=== PATIENT | male | born 1960 | race Caucasian/White ===

== ENCOUNTER 2018-06-08 09:47 | Emergency (ER) | payer OTHER, SELFPAY ==
[2018-06-08 09:47] VITALS: BP 124/64; PULSE 101; RESP 15; TEMP 36.4; O2SAT 99; BMI 15.9
--- NOTE | 2018-06-08 10:12 | CT_ITS ---
STUDY: CTA OF THE ABDOMINAL AORTA REASON FOR EXAM: Male, 58 years old. CELIAC ARTERY STENOSIS, N/V, PAIN, PREV STENTING OF CELIAC ARTERY X 2, RAHEL, HERNIA REPAIR, CBD STONE REMOVED RADIATION DOSAGE (If Supplied By Facility): CTDIvol = ( 20.60 ) mGy, DLP = ( 201.96 ) mGycm TECHNIQUE: Axial CT angiography multi-detector data acquisition was obtained from the lung bases to the the mid pelvis following intravenous administration of 100 ml of Isovue 370 contrast. Axial images and MIP images were reconstructed from the axial data set. Post-processing of the angiographic images was performed, with multiplanar reformation and 3D reconstruction. Individualized dose optimization techniques were used for this CT. TECHNICAL QUALITY: Good COMPARISON: June 26, 2017 Descriptors of Narrowing: None (0%) Mild (< 50%) Moderate (50-70%) Severe (70-90%) Subtotal/Total Occlusion (90-100%) Non-Evaluable (technically non-diagnostic FINDINGS: Abdominal aorta: Mild atherosclerotic plaque most evident of the distal aorta noted similar in appearance to that seen previously. No evidence of aneurysm, significant stenosis or occlusion. Celiac and superior mesenteric arteries: It now appears that the celiac stent is wider and the lumen patent. The distal celiac artery appears patent. There is also and SMA stent. This too appears wider and the lumen patent distally. Inferior mesenteric artery: No demonstrated narrowing. Right renal artery(arteries): No demonstrated narrowing. Left renal artery(arteries): No demonstrated narrowing. Right common iliac artery: There is mild diffuse narrowing. Right external iliac artery: No demonstrated narrowing. Right internal iliac artery: There is mild diffuse narrowing. Left common iliac artery: There is mild diffuse narrowing. Left external iliac artery: No demonstrated narrowing. Left internal iliac artery: There is mild diffuse narrowing. RIGHT LOWER EXTREMITY Right common femoral artery: No demonstrated narrowing. LEFT LOWER EXTREMITY Left common femoral artery: No demonstrated narrowing. The lung bases are clear. No focal lung infiltrate. Base of the heart is unremarkable. The liver, spleen and pancreas have an unremarkable appearance. The gallbladder is been removed. No pathologic biliary ductal dilatation. No adrenal mass. The kidneys enhance bilaterally and symmetrically. No adenopathy. The visualized bowel is unremarkable. Osseous structures are unremarkable. CT/CTA Abdomen W/WO Contrast IMPRESSION: Improved appearance when compared to previous exam, the celiac and SMA stents now appear widely patent. Electronically Signed: Jaye Giraldo MD at 12:22 EST , Service support ,
[2018-06-08] MEDS: 0.9% Normal Saline 1,000 ML 1000 ML IV (10:23)
[2018-06-08] MEDS: Morphine 4 MG/ML Syringe IV ×2 (10:23→13:02)
[2018-06-08] MEDS: Ondansetron 4 MG/2 ML Vial IV (10:23)
[2018-06-08 10:30] LABS: Absolute Lymphocyte Count 1.26 X10^3/ul (0.83-4.51); Absolute Neutrophil Count 8.9 X10^3/uL (2.0-7.7); Basophil# 0.02 X10^3/uL; Basophil% 0.2 % (0-1); Eosinophil# 0.02 X10^3/uL; Eosinophils% 0.2 % (0-5); Hematocrit 45.5 % (40-54); Hemoglobin 16.4 g/dl (13.0-16.5); Lymphocyte # 1.26 X10^3/ul (4.0); Lymphocyte % 11.3 % (19-41); Mean Corpuscular Hgb 31.1 pg (27.0-32.0); Mean Corpuscular Volume 86.2 fL (80-94); Mean Platelet Vol. 12.3 fl (6.2-12.0); Monocyte# 0.93 X10^3/uL; Monocyte% 8.3 % (0-10); Neutrophil # 8.94 X10^3/uL (2.7-7.7); Neutrophil % 79.9 % (47-70); Platelet Count 242 K/mm3 (150-450); RBC Distribution Width CV 13.1 % (11.6-14.6); RBC Distribution Width SD 40.9 fl (35.1-43.9); Red Blood Count 5.28 M/mm3 (4.6-6.2); White Blood Count 11.2 K/mm3 (4.4-11.0)
[2018-06-08 10:32] LABS: POSITIVE COUNT NO; POSITIVE DIFFERENTIAL NO; POSITIVE MORPHOLOGY NO
[2018-06-08 10:47] LABS: ALB/GLOB Ratio 1.2 RATIO (0.9-2.4); AST(SGOT) 24 U/L (15-37); Alanine Aminotransfer ALT/SGPT 23 U/L (16-61); Albumin, Serum 4.3 g/dL (3.2-5.0); Alkaline Phosphatase 116 U/L (45-117); Anion Gap 10 (5-15); BUN 22 mg/dL (7-18); BUN/Creat Ratio 17.9 RATIO (10-20); Calcium,Total 9.4 mg/dL (8.5-10.1); Chloride 104 mmol/L (98-107); Creatinine, Serum 1.23 mg/dL (0.70-1.30); EST Glomerular Filtration Rate 64 mL/min (>60); Est Glom Filt Rate - Afr Amer 78 mL/min (>60); Estimated Creatinine Clearance 47.24 ml/min; Globulin 3.5 g/dL (2.2-4.2); Glucose 102 mg/dL (74-106); Lipase 84 U/L (73-393); Potassium 3.7 mmol/L (3.5-5.1); Protein, Total 7.8 g/dL (6.4-8.2); Sodium Level 136 mmol/L (136-145)
[2018-06-08 10:51] LABS: Lactic Acid 1.9 mmol/L (0.4-2.0)
[2018-06-08 11:30] VITALS: BP 107/77; PULSE 67; RESP 18; O2SAT 99
[2018-06-08 12:14] VITALS: BP 107/77
--- NOTE | 2018-06-08 12:38 | ED.VISSUMM ---
- ER Visit Summary Date of Service: 06/08/18 Chief Complaint: Abdominal pain History of Present Illness: The patient is a 58 M who is had 3 days of abdominal pain. It sharp diffusely about his abdomen. Nothing makes it better or worse. He admits to some nausea and diarrhea. No blood in the stool. No urinary symptoms. He states he has a history of multiple mesenteric stents. He says he went to [facility] last night and they told him that it was inconclusive if his celiac artery was obstructed. Physical Examination: Vital signs reviewed. HEENT exam unremarkable. Heart is regular rate and rhythm without murmurs. Lungs are clear to auscultation. Abdomen is soft with tenderness diffusely. No guarding or rebound tenderness extremities reveal no edema. Skin exam normal. Neurologic exam normal. Test Results: Laboratory studies are normal except for a white blood cell count of 11.2. CTA of the abdomen reveals no stenosis. His stents are widely patent Emergency Department Course and Treatment: Patient has no obstruction of his intra-abdominal arteries. He was given morphine and Zofran and feels improved. I will give him Bentyl for home. He states that he did have a GI-like illness before his pain started. This could be the etiology of his symptoms. However, his celiac and SMA stent are both patent on the CTA. He will need to follow-up with his PCP. Treatment Plan: [] Disposition: Discharge Impression: Abdominal pain This note was generated with [employer] dictation software. It may contain incorrect words, spelling, and punctuation that were not noted in review of the chart prior to signing ED Disposition - Plan for ED Patient: Chief Complaint: Abd Pain Referrals: Richard Dai [Primary Care Provider] -
--- NOTE | 2018-06-08 12:40 | ED.DEP ---
ED Disposition - Plan for ED Patient: Disposition: Home or Assisted Living Chief Complaint: Abd Pain Instructions: ED Abdominal Pain Unkn Cause Prescriptions: Dicyclomine HCl [Bentyl] 20 mg PO TIDAC #20 cap Referrals: Richard Dai [Primary Care Provider] -
[2018-06-08 13:02] VITALS: BP 139/66; PULSE 78; RESP 14; O2SAT 99
--- OUTSIDE RECORDS SUMMARY | 2018-09-10 00:17 | XMS RPT_ITS ---
:1960 Author Organization OHIP Support Name Relationship Address Phone NAS HOFFMAN Unavailable [address] + [place] [address] ROBIND Unavailable [address] + [address] [place] [address] NAS HOFFMAN Unavailable [address] + [place], [place] [phone] NAS HOFFMAN Unavailable [address] Unavailable [place], [place] [phone] NOT GIVEN Unavailable Unavailable Unavailable NAS HOFFMAN Unavailable [address] + [place], [place] [phone] NAS HOFFMAN Unavailable [address] Unavailable [place], [place] [phone] NOT GIVEN Unavailable Unavailable Unavailable NAS HOFFMAN Unavailable [address] + [place], [place] [phone] NAS HOFFMAN Unavailable [address] Unavailable [place], [place] [phone] NOT GIVEN Unavailable Unavailable Unavailable NAS HOFFMAN Unavailable [address] + [place], [place] [phone] NAS HOFFMAN Unavailable [address] Unavailable [place], [place] [phone] NOT GIVEN Unavailable Unavailable Unavailable NAS HOFFMAN Unavailable [address] + [place], [place] [phone] NAS HOFFMAN Unavailable [address] Unavailable [place] [phone] NOT GIVEN Unavailable Unavailable Unavailable NAS HOFFMAN Unavailable [address] + [place], [place] [phone] NAS HOFFMAN Unavailable [address] Unavailable [place], [place] [phone] NOT GIVEN Unavailable Unavailable Unavailable Care Team Providers Name Role Phone MARISA GORMAN Attending Unavailable MARISA GORMAN Attending Unavailable RICHARD DAI Referring Unavailable ALBERTRICHARD Martin Attending Unavailable MARISA GORMAN Referring Unavailable LABERT, RICHARD Murray Attending Unavailable ALBERT, RICHARD L Referring Unavailable MARISA GORMAN Referring Unavailable DIANA, MARISA Attending Unavailable RICHARD DAI NOAM Referring Unavailable NEGRESCU, DEXTER V (PA-C) Attending Unavailable MARISA GORMAN Referring Unavailable NEGRESCU, DEXTER V (PA-C) Referring Unavailable NEGRESCU, DEXTER V (PA-C) Referring Unavailable RICHARD DAI Admitting Unavailable RICHARD DAI Attending Unavailable BRAULIO, RICHARD Primary Care Unavailable RICHARD DAI Consulting Unavailable PROVIDER, UNKNOWN Consulting Unavailable PROVIDER, UNKNOWN Consulting Unavailable PROVIDER, UNKNOWN Consulting Unavailable RICHARD DAI Admitting Unavailable RICHARD DAI Attending Unavailable BRAULIO, RICHARD Primary Care Unavailable RICHARD DAI Consulting Unavailable PROVIDER, UNKNOWN Consulting Unavailable PROVIDER, UNKNOWN Consulting Unavailable PROVIDER, UNKNOWN Consulting Unavailable RICHARD DAI Admitting Unavailable RICHARD DAI Attending Unavailable BRAULIO, RICHARD Primary Care Unavailable RICHARD DAI Consulting Unavailable PROVIDER, UNKNOWN Consulting Unavailable PROVIDER, UNKNOWN Consulting Unavailable PROVIDER, UNKNOWN Consulting Unavailable RICHARD DAI Admitting Unavailable RICHARD DAI Attending Unavailable BRAULIO, RICHARD Primary Care Unavailable RICHARD DAI Consulting Unavailable PROVIDER, UNKNOWN Consulting Unavailable PROVIDER, UNKNOWN Consulting Unavailable PROVIDER, UNKNOWN Consulting Unavailable HABERBERGER, BELKIS M Admitting Unavailable HABERBERGER, BELKIS M Attending Unavailable RICHARD DAI Referring Unavailable HABERBERGER, BELKIS M Primary Care Unavailable RICHARD DAI Consulting Unavailable PROVIDER, UNKNOWN Consulting Unavailable PROVIDER, UNKNOWN Consulting Unavailable PROVIDER, UNKNOWN Consulting Unavailable HABERBERGER, BELKIS M Admitting Unavailable HABERBERGER, BELKIS M Attending Unavailable HABERBERGER, BELKIS M Primary Care Unavailable RICHARD DAI Consulting Unavailable PROVIDER, UNKNOWN Consulting Unavailable PROVIDER, UNKNOWN Consulting Unavailable PROVIDER, UNKNOWN Consulting Unavailable Richard Dai Primary Care Unavailable Phani Easley Attending Unavailable PROBLEMS PROBLEMS DATE TYPE CONDITION / CODE ATTENDING STATUS SOURCE 07/10/2018 Active Chronic vascular NA Active [place] disorders of [facility] Main intestine / [place] K55.1(ICD-10) Repository 07/10/2018 Active Encounter for other NA Active [place] preprocedural [facility] Main examination / [place] Z01.818(ICD-10) Repository 04/14/2018 Principle Unspecified RICHARD DAI Active [facility] Diagnosis disorder of [facility] / I999(ICD-10) Repository 03/03/2018 Active Functional RICHARD ANDRES Active [place] dyspepsia / [facility] K30(ICD-10) [place] Repository 01/14/2018 Active Unknown / MARISA GORMAN Active [place] UNK(Unknown) [facility] Repository PROCEDURES PROCEDURES No Procedure Records FoundRESULTS RESULTS ECG COMPLETE W Observed: 07/10/2018 Status: F Source: [place] INTERPRETATION 1:05 PM [facility] REPOSITORY NAME : RAJENDRA HOFFMAN PID : [id number] : 1960 Gender : Male Race : ORD : [id number] Procedure Date : Jul 10 2018 13:05:06 Edit Date : Jul 14 2018 09:42:57 Diagnosis:NORMAL SINUS RHYTHM NORMAL ECG Confirmed by DELILAH HUDSON M.D. ([id number]) on 07/14/2018 9:30:46 AM Ventricular Rate : 71 BPM Atrial Rate : 71 BPM P-R Interval : 156 ms QRS Duration : 82 ms Q-T Interval : 368 ms QTC Calculation(Bezet) : 399 ms P [place] : 81 degrees R [place] : 84 degrees T [place] : 65 degrees Test Reason : Location : 314 : J14 J1-4 Overread By : DELILAH HUDSON M.D. Edited By : DELILAH HUDSON M.D. Referred By : DEXTER CALLES Acquired by : MATT SANTIAGO CBC AND DIFFERENTIAL Collected: 07/10/2018 Status: F Source: [place] 12:48 PM [facility] REPOSITORY TYPE CODE TESTS RESULT OUT OF REFERENCE UNITS RANGE LAB WBC 3.70-11.00 k/uL WBC 9.88 LAB RBC 4.20-6.00 m/uL RBC 5.28 LAB HGB 13.0-17.0 g/dL Hemoglobin 16.3 LAB HCT 39.0-51.0 % Hematocrit 48.8 LAB MCV 80.0-100.0 fL MCV 92.4 LAB MCH 26.0-34.0 pG MCH 30.9 LAB MCHC 30.5-36.0 g/dL MCHC 33.4 LAB RDWCV 11.5-15.0 % RDW-CV 13.5 LAB PLTCT 150-400 k/uL Platelet Count 180 LAB MPV 9.0-12.7 fL MPV 12.7 LAB ANEUT % Neut% 73.7 LAB AANEUT 1.45-7.50 k/uL Abs Neut 7.28 LAB ALYMP % Lymph% 17.7 LAB AALYMP 1.00-4.00 k/uL Abs Lymph 1.75 LAB AMONO % Coal% 6.3 LAB AAMONO <0.87 k/uL Abs Coal 0.62 LAB AEOS % Eosin% 1.6 LAB AAEOS <0.46 k/uL Abs Eosin 0.16 LAB ABASO % Baso% 0.7 LAB AABASO <0.11 k/uL Abs Baso 0.07 LAB AUNRBC 0 /100 WBC NRBCs 0.0 LAB ABNRBC <0.01 k/uL Absolute nRBC <0.01 LAB DTYP DTYPE Auto Diff Performed By: #### CBCDIF, BMP #### [facility] [address] [place], [place] [address] BASIC METABOLIC PANL Collected: 07/10/2018 Status: F Source: [place] 12:48 PM [facility] REPOSITORY TYPE CODE TESTS RESULT OUT OF REFERENCE UNITS RANGE LAB GLU 74-99 mg/dL High Glucose 158 Result Comment: The [place] [employer] (ADA) provides guidance for cutoff values for fasting glucose and random glucose. The ADA defines fasting as no caloric intake for at least 8 hours. Fas ting plasma glucose results between 100 to 125 mg/dL indicate increased risk for diabetes (prediabetes). Fasting plasma glucose results greater than or equal to 126 mg/dL meet the criteria for diagnosis of diabetes. In the absence of unequivocal hyperglycemia, results should be confirmed by repeat testing. In a patient with classic symptoms of hyperglycemia or hyperglycemic crisis, random plasma glucose results greater than or equal to 200 mg/dL meet the criteria for diagnosis of diabetes. Reference: Standards of Medical Care in Diabetes 2016, [place] [employer]. Diabetes Care. 2016.39(Suppl 1). LAB BUN 9-24 mg/dL BUN 12 LAB CRET 0.73-1.22 mg/dL Creatinine 1.01 LAB NA 136-144 mmol/L Sodium 136 LAB K 3.7-5.1 mmol/L Potassium 4.2 LAB CL 97-105 mmol/L Chloride Low 96 LAB CO2 22-30 mmol/L CO2 26 LAB AGAP 9-18 mmol/L Anion Gap 14 LAB CA 8.5-10.2 mg/dL Calcium, Total 10.1 LAB GFRAA eGFR- Amer. >60 LAB GFRNAA . eGFR-All Other Races >60 Result Comment: eGFR (Estimated GFR) Units of measure: mL/min/1.73 meters squared eGFR is derived from the reexpressed MDRD Study equation using the following parameters: serum creatinine, age, gender and race. The creatinine assay has been calibrated to be traceable to IDMS. An eGFR <60 mL/min/1.73m2 for >3 months is consistent with chronic kidney disease. Refer to KDOQI guidelines for clinical interpretation. In patients with unstable renal function, e.g. those with acute kidney injury, the eGFR may not accurately reflect actual GFR. Performed By: #### CBCDIF, BMP #### [facility] [address] [place], [place] [id number] TYPE AND SCR (30D) Collected: 07/10/2018 Status: F Source: [place] 12:48 PM [facility] REPOSITORY TYPE CODE TESTS RESULT OUT OF REFERENCE UNITS RANGE LAB %ABR A ABO/RH(D) POSITIVE LAB % Antibody NEG Screen Performed By: #### [id number] #### [facility] [address] [place], [place] [address] PROGRESS Observed: 07/10/2018 Status: COMPLETED Source: [place] 11:34 AM [facility] REPOSITORY HNO ID: [id number] Author: Marisa Gorman MD Service: (none) Author Type: Physician Type: Progress Notes Filed: 07/10/2018 11:36 AM Note Text: VASCULAR SURGERY ESTABLISHED PATIENT SERVICE DATE: 07/10/2018 SERVICE TIME: 11:34 AM PRIMARY CARE PHYSICIAN: Richard Dai MD SUBJECTIVE HISTORY OF PRESENT ILLNESS: This office note has been dictated. 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 FAMILY HISTORY Problem Relation Age of Onset - Cancer Mother lung - Cancer Maternal Grandmother lung - Colon Cancer Father - Cancer Maternal Grandfather throat - Cancer Maternal Aunt bone SOCIAL HISTORYSocial History Marital status: Spouse name: Years of education: Number of children: Social History Main Topics Smoking status: Current Every Day Smoker Packs/day: 0.00 Years: 23.00 Types: Cigarettes Smokeless tobacco: Never Used Comment: 10-15 per day Alcohol use: No Comment: very very seldom Drug use: No Comment: [facility] MEDICATIONS/ALLERGIES Current Outpatient Prescriptions: desipramine (NORPRAMIN) 10 mg tablet Take 1 tablet by mouth daily at bedtime. Disp: 90 tablet Rfl: 3 rosuvastatin (CRESTOR) 10 mg tablet Take 1 tablet by mouth daily at bedtime. Disp: 30 tablet Rfl: [address] (PROTONIX) 20 mg tablet Take 1 tablet by mouth once daily. (Patient taking differently: Take 20 mg by mouth as needed. ) Disp: 30 tablet Rfl: 2 aspirin 81 mg chewable tablet Take 1 tablet by mouth once daily. Disp: Rfl: 0 clopidogrel (PLAVIX) 75 mg tablet Take 1 tablet by mouth once daily. Disp: Rfl: 0 No current facility-administered medications for this visit. ALLERGIES Allergen Reactions - Omeprazole Other: See Comments Headaches OBJECTIVE BP 105/74 Pulse 65 Temp 36.8 ?C (98.2 ?F) (Temporal Artery) Resp 18 SpO2 98% General appearance: Well appearing, alert, in no acute distress, well-hydrated, well nourished. Skin: Skin color, texture, turgor normal, no suspicious rashes or lesions Head: Normocephalic, no masses, lesions, tenderness or abnormalities Eyes: Anicteric sclera. Pupils are equally round. Extraocular movements are intact. Lungs: nonlabored breathing Heart: RRR. No JVD Abdomen: Normal abdominal exam, Abdomen soft, non-tender. No masses. Extremities: No deformities, edema, skin discoloration, clubbing or cyanosis. Good capillary refill. Musculoskeletal: No joint swelling, deformity, or tenderness Peripheral pulses: Normal Neuro: Gait normal. Sensation grossly intact. ASSESSMENT This office note has been dictated. Marisa Gorman MD PLAN/RECOMMENDATIONS This office note has been dictated. Marisa Gorman MD SIGNATURE: Marisa Gorman MD, MD PATIENT NAME: Rajendra Hoffman DATE: July 10, 2018 TIME: 11:34 AM CNOV Observed: 07/10/2018 Status: COMPLETED Source: [place] 10:00 AM [facility] REPOSITORY Office Visit (VASSMN) RAJENDRA HOFFMAN ([id number]) 1960 M Date Time Provider Department 07/10/18 10:00 AM MARISA GORMAN During your visit today, we recorded the following information about you: Temperature Pulse Respiration Blood pressure 98.2 degrees 65/minute 18/minute 105/74 Marisa Gorman MD, MD 07/10/2018 11:36 AM Signed VASCULAR SURGERY ESTABLISHED PATIENT SERVICE DATE: 07/10/2018 SERVICE TIME: 11:34 AM PRIMARY CARE PHYSICIAN: Richard Dai MD SUBJECTIVE HISTORY OF PRESENT ILLNESS: This office note has been dictated. 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 FAMILY HISTORY Problem Relation Age of Onset - Cancer Mother lung - Cancer Maternal Grandmother lung - Colon Cancer Father - Cancer Maternal Grandfather throat - Cancer Maternal Aunt bone SOCIAL HISTORYSocial History Marital status: Spouse name: Years of education: Number of children: Social History Main Topics Smoking status: Current Every Day Smoker Packs/day: 0.00 Years: 23.00 Types: Cigarettes Smokeless tobacco: Never Used Comment: 10-15 per day Alcohol use: No Comment: very very seldom Drug use: No Comment: used to smoke [place] MEDICATIONS/ALLERGIES Current Outpatient Prescriptions: desipramine (NORPRAMIN) 10 mg tablet Take 1 tablet by mouth daily at bedtime. Disp: 90 tablet Rfl: 3 rosuvastatin (CRESTOR) 10 mg tablet Take 1 tablet by mouth daily at bedtime. Disp: 30 tablet Rfl: [address] (PROTONIX) 20 mg tablet Take 1 tablet by mouth once daily. (Patient taking differently: Take 20 mg by mouth as needed. ) Disp: 30 tablet Rfl: 2 aspirin 81 mg chewable tablet Take 1 tablet by mouth once daily. Disp: Rfl: 0 clopidogrel (PLAVIX) 75 mg tablet Take 1 tablet by mouth once daily. Disp: Rfl: 0 No current facility-administered medications for this visit. ALLERGIES Allergen Reactions - Omeprazole Other: See Comments Headaches OBJECTIVE BP 105/74 Pulse 65 Temp 36.8 ?C (98.2 ?F) (Temporal Artery) Resp 18 SpO2 98% General appearance: Well appearing, alert, in no acute distress, well-hydrated, well nourished. Skin: Skin color, texture, turgor normal, no suspicious rashes or lesions Head: Normocephalic, no masses, lesions, tenderness or abnormalities Eyes: Anicteric sclera. Pupils are equally round. Extraocular movements are intact. Lungs: nonlabored breathing Heart: RRR. No JVD Abdomen: Normal abdominal exam, Abdomen soft, non-tender. No masses. Extremities: No deformities, edema, skin discoloration, clubbing or cyanosis. Good capillary refill. Musculoskeletal: No joint swelling, deformity, or tenderness Peripheral pulses: Normal Neuro: Gait normal. Sensation grossly intact. ASSESSMENT This office note has been dictated. Marisa Gorman MD PLAN/RECOMMENDATIONS This office note has been dictated. Marisa Gorman MD SIGNATURE: Marisa Gorman MD, MD PATIENT NAME: Rajendra Hoffman DATE: July 10, 2018 TIME: 11:34 AM Referring Provider: RICHARD DAI [[id number]] Allergies As of Date: 07/10/2018 Noted Allergy Reaction OMEPRAZOLE 05/26/2015 14 - Other: See Comments Comments: Headaches Date Reviewed: 07/10/2018 Reviewed by: Alexia Marina Ma - Fully Assessed Reason for Visit: Established Patient [175] Primary Visit Diagnosis:Mesenteric ischemia, chronic (HCC) [K55.1] Prescriptions as of 07/10/2018 Sig: DESIPRAMINE 10 MG TABLET Take 1 tablet by mouth daily * ROSUVASTATIN 10 MG TABLET Take 1 tablet by mouth daily * PANTOPRAZOLE 20 MG TABLET,DEL* Take 1 tablet by mouth once d* Patient taking differently: Take 20 mg by mouth as needed* ASPIRIN 81 MG CHEWABLE TABLET Take 1 tablet by mouth once d* CLOPIDOGREL 75 MG TABLET Take 1 tablet by mouth once d* Problem List As Of Date 07/10/2018 Noted Resolved 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 Epigastric pain [R10.13] INVALID FOR* More... Severe protein-calorie malnutrition (HCC) [E43] INVALID FOR* More... SUMMARY INVALID FOR* More... History of cholangitis [Z87.19] INVALID FOR* More... 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 Abdominal pain [R10.9] INVALID FOR* Chronic mesenteric ischemia (HCC) [K55.1] INVALID FOR* More... Nicotine use disorder, F17.2 [F17.200] INVALID FOR* Medications Discontinued During This Encounter multivitamin tablet 07/10/2018 Class: Historical Med Route: ORAL Sig: Take 1 tablet by mouth daily at bedtime. Disc: Course of therapy completed Encounter Status:Closed by MARISA GORMAN MD on 07/10/18 DISCHARGE INSTRUCTION Observed: 06/08/2018 Status: F Source: [place] 12:[address] [facility] REPOSITORY [facility] Medical Records Department [address] [place] [address] Discharge Instruction 06/08/18 1240 MR#: [id number] Acct: [id number] Name: RAJENDRA HOFFMAN Rep #: [id number] : 1960 58 From: Phani Easley MD PCP: Rihcard Dai MD Status: REG ER ED Disposition - Plan for ED Patient: Disposition: Home or Assisted Living Chief Complaint: Abd Pain Instructions: ED Abdominal Pain Unkn Cause Prescriptions: Dicyclomine HCl [Bentyl] 20 mg PO TIDAC #20 cap Referrals: Richard Dai [Primary Care Provider] - What to do if you have Problems For any increased pain, shortness of breath, bleeding, nausea or vomiting, chest pain, or any unexpected problems, contact your Primary Care Provider. Call [facility] ([phone]) or report to the closest Emergency Room. Call 911 if necessary. 06/08/18 1241 <Electronically signed by Phani Easley MD> Date Phani Easley MD Cosigner Signature (If Indicated): Date CC: Richard Dai MD EMERGENCY DEPARTMENT Observed: 06/08/2018 Status: F Source: [place] SUMMARY 12:[address] [facility] REPOSITORY [facility] Medical Records Department [address] [place] [address] Emergency Department Summary 06/08/18 1238 MR#: [id number] Acct: [id number] Name: RAJENDRA HOFFMAN Rep #: [id number] : 1960 58 From: Phani Easley MD PCP: Richard Dai MD Status: REG ER - ER Visit Summary Date of Service: 06/08/18 Chief Complaint: Abdominal pain History of Present Illness: The patient is a 58 M who is had 3 days of abdominal pain. It sharp diffusely about his abdomen. Nothing makes it better or worse. He admits to some nausea and diarrhea. No blood in the stool. No urinary symptoms. He states he has a history of multiple mesenteric stents. He says he went to [facility] last night and they told him that it was inconclusive if his celiac artery was obstructed. Physical Examination: Vital signs reviewed. HEENT exam unremarkable. Heart is regular rate and rhythm without murmurs. Lungs are clear to auscultation. Abdomen is soft with tenderness diffusely. No guarding or rebound tenderness extremities reveal no edema. Skin exam normal. Neurologic exam normal. Test Results: Laboratory studies are normal except for a white blood cell count of 11.2. CTA of the abdomen reveals no stenosis. His stents are widely patent Emergency Department Course and Treatment: Patient has no obstruction of his intra-abdominal arteries. He was given morphine and Zofran and feels improved. I will give him Bentyl for home. He states that he did have a GI-like illness before his pain started. This could be the etiology of his symptoms. However, his celiac and SMA stent are both patent on the CTA. He will need to follow-up with his PCP. Treatment Plan: [] Disposition: Discharge Impression: Abdominal pain This note was generated with Codeshipation software. It may contain incorrect words, spelling, and punctuation that were not noted in review of the chart prior to signing ED Disposition - Plan for ED Patient: Chief Complaint: Abd Pain Referrals: Richard Dai [Primary Care Provider] - What to do if you have Problems For any increased pain, shortness of breath, bleeding, nausea or vomiting, chest pain, or any unexpected problems, contact your Primary Care Provider. Call [facility] ([phone]) or report to the closest Emergency Room. Call 911 if necessary. 06/08/18 1240 <Electronically signed by Phani Easley MD> Date Phani Easley MD Cosigner Signature (If Indicated): Date CC: Richard Dai MD CBC W/DIFF, AUTOMATED Collected: 06/08/2018 Status: F Source: [place] 10:[address] [facility] REPOSITORY TYPE CODE TESTS RESULT OUT OF RANGE REFERENCE UNITS LAB L100.1000 4.4-11.0 K/mm3 High WBC 11.2 LAB L100.1200 4.6-6.2 M/mm3 Normal RBC 5.28 LAB L100.1300 13.0-16.5 g/dl Normal HGB 16.4 LAB L100.1400 40-54 % Normal HCT 45.5 LAB L100.1500 80-94 fL Normal MCV 86.2 LAB L100.1600 27.0-32.0 pg Normal MCH 31.1 LAB L100.1700 32-36 g/gl Normal MCHC 36.0 LAB L100.1810 11.6-14.6 % Normal RDW CV 13.1 LAB L100.1820 35.1-43.9 fl Normal RDW SD 40.9 LAB L100.1900 150-450 K/mm3 Normal PLT 242 LAB L100.2000 6.2-12.0 fl High MPV 12.3 LAB L100.2100 47-70 % High NEUT% 79.9 LAB L100.2200 19-41 % Low LY% 11.3 LAB L100.2300 0-10 % Normal MONO% 8.3 LAB L100.2400 0-5 % Normal EO% 0.2 LAB L100.2500 0-1 % Normal BASO% 0.2 LAB L100.2550 0.0-0.9 % Normal IM GRAN % 0.100 Result Comment: IG% - Immature Granulocytes (promyelocytes, myelocytes and metamyelocytes) > 1% indicates that a LEFT SHIFT is Present. LAB L100.2620 2.0-7.7 X10 3/uL High Absolute Neut 8.9 LAB L100.2720 0.83-4.51 X10 3/ul Normal Absolute Lymph 1.26 Performed By: #### L100.0100 #### [facility] [address] [place], [address] COMPREHENSIVE METABOLIC Collected: 06/08/2018 Status: F Source: [facility] 10:[address] [facility] REPOSITORY TYPE CODE TESTS RESULT OUT OF RANGE REFERENCE UNITS LAB L501.0100 74-106 mg/dL Normal GLU 102 Result Comment: Fasting Glucose result from 100 to 125 mg/dL suggests IMPAIRED HOMEOSTASIS per A.D.A. criteria. Please note revised GLUCOSE reference range effective 2017. LAB L501.1000 7-18 mg/dL High BUN 22 LAB L501.1100 0.70-1.30 mg/dL Normal CREAT,SERUM 1.23 Result Comment: The validity of the calculated GFR AND GFRAA in patients over 70 years has not been determined. Clinical correlation is essential. LAB L501.1110 >60 mL/min Normal EST GFR 64 Result Comment: Non- GFR Calc LAB L501.1115 >60 mL/min Normal EST GFR - AA 78 Result Comment: GFR Calc LAB L501.1255 ml/min Normal Estimated CRCL 47.24 LAB L501.1300 10-20 RATIO Normal BUN/CRE 17.9 LAB L501.1500 6.4-8. g/dL Normal 2 T PROT 7.8 LAB L501.1800 3.2-5. g/dL Normal 0 ALB 4.3 LAB L501.1950 2.2-4. g/dL Normal 2 GLOB 3.5 LAB L501.2000 0.9-2. RATIO Normal 4 A/G 1.2 LAB L501.2200 8.5-10 mg/dL Normal .1 CA 9.4 LAB L501.4100 15-37 U/L Normal AST 24 LAB L501.4305 45-117 U/L Normal ALK P 116 LAB L501.4405 16-61 U/L Normal ALT 23 LAB L501.4600 0.20-1 mg/dL Normal .00 T BILI 0.70 LAB L501.5300 136-14 mmol/L Normal 5 NA 136 LAB L501.5600 3.5-5. mmol/L Normal 1 K 3.7 LAB L501.5900 98-107 mmol/L Normal CL 104 LAB L501.6100 21.0-3 mmol/L Normal 2.0 CO2 22.0 LAB L501.6200 5-15 Normal GAP 10 Performed By: #### L500.4050, L501.2450 #### [facility] [address] [place], [address] LIPASE Collected: 06/08/2018 Status: F Source: [place] 10:[address] [facility] REPOSITORY TYPE CODE TESTS RESULT OUT OF RANGE REFERENCE UNITS LAB L501.2450 73-393 U/L Normal LIPASE 84 Performed By: #### L500.4050, L501.2450 #### [facility] [address] [place], [address] LACTIC ACID Collected: 06/08/2018 Status: F Source: [place] 10:[address] [facility] REPOSITORY Order Comment: Yes/No query for Sepsis Lactate Rule Y TYPE CODE TESTS RESULT OUT OF RANGE REFERENCE UNITS LAB L503.6005 0.4-2.0 mmol/L Normal LACTIC ACID 1.9 Performed By: #### L503.6005 #### [facility] [address] [place], [address] CTA ABDOMEN W/WO Observed: 06/08/2018 Status: F Source: [place] [facility] [facility] [facility] REPOSITORY [facility] Imaging Services [address] [place] [id number] CTA Abdomen W/WO Contrast MR#: [id number] Acct: [id number] Name: RAJENDRA HOFFMAN Rep #: [id number] : 1960 M 58 From: Jaye Giraldo MD PCP: Richard Dai MD Status: REG ER Study: CTA Abdomen W/WO Contrast Date of Exam: 06/08/18 Exam# [id number] Ordering Dr: Phani Easley MD STUDY: CTA OF THE ABDOMINAL AORTA REASON FOR EXAM: Male, 58 years old. CELIAC ARTERY STENOSIS, N/V, PAIN, PREV STENTING OF CELIAC ARTERY X 2, RAHEL, HERNIA REPAIR, CBD STONE REMOVED RADIATION DOSAGE (If Supplied By Facility): CTDIvol = ( 20.60 ) mGy, DLP = ( 201.96 ) mGycm TECHNIQUE: Axial CT angiography multi-detector data acquisition was obtained from the lung bases to the the mid pelvis following intravenous administration of 100 ml of Isovue 370 contrast. Axial images and MIP images were reconstructed from the axial data set. Post-processing of the angiographic images was performed, with multiplanar reformation and 3D reconstruction. Individualized dose optimization techniques were used for this CT. TECHNICAL QUALITY: Good COMPARISON: June 26, 2017 Descriptors of Narrowing: None (0%) Mild (< 50%) Moderate (50-70%) Severe (70-90%) Subtotal/Total Occlusion (90-100%) Non-Evaluable (technically non-diagnostic FINDINGS: Abdominal aorta: Mild atherosclerotic plaque most evident of the distal aorta noted similar in appearance to that seen previously. No evidence of aneurysm, significant stenosis or occlusion. Celiac and superior mesenteric arteries: It now appears that the celiac stent is wider and the lumen patent. The distal celiac artery appears patent. There is also and SMA stent. This too appears wider and the lumen patent distally. Inferior mesenteric artery: No demonstrated narrowing. Right renal artery(arteries): No demonstrated narrowing. Left renal artery(arteries): No demonstrated narrowing. Right common iliac artery: There is mild diffuse narrowing. Right external iliac artery: No demonstrated narrowing. Right internal iliac artery: There is mild diffuse narrowing. Left common iliac artery: There is mild diffuse narrowing. Left external iliac artery: No demonstrated narrowing. Left internal iliac artery: There is mild diffuse narrowing. RIGHT LOWER EXTREMITY Right common femoral artery: No demonstrated narrowing. LEFT LOWER EXTREMITY Left common femoral artery: No demonstrated narrowing. The lung bases are clear. No focal lung infiltrate. Base of the heart is unremarkable. The liver, spleen and pancreas have an unremarkable appearance. The gallbladder is been removed. No pathologic biliary ductal dilatation. No adrenal mass. The kidneys enhance bilaterally and symmetrically. No adenopathy. The visualized bowel is unremarkable. Osseous structures are unremarkable. CT/CTA Abdomen W/WO Contrast IMPRESSION: Improved appearance when compared to previous exam, the celiac and SMA stents now appear widely patent. 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 Results must be interpreted within the clinical setting. 1.Non-ischemic pathology can also cause elevated troponin levels (e.g., acute pulmonary embolism, myocarditis, pericarditis, heart failure, intracranial injury, rhabdomyolisis, sepsis, shock and renal insufficiency). 2.Approximately 1% of healthy adults have elevated troponin levels. 3.Analytical false positive results rarely occur(due to multiple interferences such as heterophile antibodies). Performed By: #### [id number] #### [place] [address] [address] ANGIOGRAPHY ABDOMEN Observed: 06/07/2018 Status: F Source: [facility] //T// PELVIS 12:37 PM [facility] REPOSITORY [place] [address] Patient: RAJENDRA HOFFMAN Phone#: : 1960 Age: 58 Gender: M Pt. Type: ER Account: [id number] Location: 052 Ordering: DR. BELKIS MOLINA Exam Date: 06/07/2018/12:02 Family Phys: RICHARD DAI Charge Code: 118668 Physician: [place] Order #: [id number] DLP Dose#: 42.70 mGy PROCEDURE: CT ANGIOGRAPHY ABDOMEN AND PELVIS WITH CONTRAST COMPARISON: None. INDICATIONS: Abdominal pain. TECHNIQUE: After obtaining the patient's consent, CT images of the abdomen and pelvis were created with non-ionic intravenous contrast, and with MPR/MIPS and 3D imaging. All CT scans at this facility use dose modulation, iterative reconstruction, and/or weight based dosing when appropriate to reduce radiation dose to as low as reasonably achievable. IV CONTRAST: Omnipaque 350,80ml TOTAL DOSE: 42.70 CTDIvol(mGy) FINDINGS: AORTA/VASCULAR: Moderate calcification of the aorta and its branches are noted. There are Angel at the proximal superior mesenteric artery and celiac artery. Contrast is identified distal to the stent. There is mild stenosis at the common iliac arteries bilaterally. LIVER: Normal. No enlargement, atrophy, abnormal density, or significant focal lesion. BILIARY: Surgical clips are present in the gallbladder fossa. PANCREAS: Normal. No lesion, fluid collection, ductal dilatation, or atrophy. SPLEEN: Normal. No enlargement or focal lesion. KIDNEYS: Normal. No mass, obstruction, or calcification. ADRENALS: Normal. No mass or enlargement. RETROPERITONEUM: Normal. No mass or adenopathy. BOWEL/MESENTERY: Normal. No visible mass, obstruction, or bowel wall thickening. ABDOMINAL WALL: Normal. No mass or hernia. URINARY BLADDER: Normal. No visible focal wall thickening, lesion, or calculus. Continued Report - Page 2 of 2 Patient: RAJENDRA HOFFMAN Phone#: : 1960 Age: 58 Gender: M Pt. Type: ER Account: [id number] Location: 052 Ordering: DR. BELKIS MOLINA Exam Date: 06/07/2018/12:02 Family Phys: RICHARD DAI Charge Code: [id number] Physician: [place] Order #: [id number] DLP Dose#: 42.70 mGy PELVIC NODES: Normal. No adenopathy. PELVIC ORGANS: Normal. No visible mass. Pelvic organs appropriate for patient age. BONES: Normal. No bony lesion or fracture. LUNG BASES: Normal. No visible pulmonary or pleural disease. OTHER: Negative. CONCLUSION: 1. Superior mesenteric artery and celiac artery stents are present. Contrast is seen distal to the stents. 2. Atherosclerotic vascular calcification is present without vascular cutoff. Dictated by: Tri Theodore MD on 06/08/2018 at 9:12 Approved by: Tri Theodore MD on 06/08/2018 at 9:12 URINALYSIS Collected: 06/07/2018 Status: F Source: [facility] 12:03 PM [facility] REPOSITORY TYPE CODE TESTS RESULT OUT OF REFERENCE UNITS RANGE LAB URINALYSIS (LOINC) URINALYSIS Result Comment: URINALYSIS LAB Specimen Type(LOINC) Specimen Type Clean catch LAB Color(LOINC) NORMAL: YELLOW Color YELLOW LAB Clarity(LOINC) NORMAL: CLEAR Clarity clear LAB ph(LOINC) NORMAL: 5.0-8.0 ph 5 LAB Protein(LOINC) NORMAL: NEGATIVE Protein Abnormal 30 LAB Glucose(LOINC) NORMAL: NORMAL Glucose NORM LAB Ketone(LOINC) NORMAL: NEGATIVE Ketone Abnormal 150 LAB Bilirubin(LOINC) NORMAL: NEGATIVE Bilirubin Abnormal 1 LAB Blood(LOINC) NORMAL: NEGATIVE Blood Abnormal 25 LAB Urobilinog(LOINC) NORMAL: NORMAL Urobilinog Abnormal 1 LAB Sp [place](LOINC) NORMAL: 1.010-1.030 Sp [place] 1.020 LAB Nitrite(LOINC) NORMAL: NEGATIVE Nitrite NEG LAB Leukocytes(LOINC) NORMAL: NEGATIVE Leukocytes Abnormal 25 LAB Microscopic(LOINC ) Microscopic SEE BELOW Result Comment: MICROSCOPIC LAB Wbc(LOINC) 0-5/hpf Wbc 1-5 LAB Rbc(LOINC) 0-3/hpf Rbc 0-5 LAB Casts(LOINC) Casts NONE LAB Crystals(LOINC) Crystals NONE LAB Amorphous(LOINC) Amorphous NONE LAB Bacteria(LOINC) Bacteria TRACE LAB Epi Cells(LOINC) Epi Cells OCC LAB Mucous(LOINC) Mucous 4+ LAB Yeast(LOINC) Yeast NONE Performed By: #### [id number] #### [facility],[address] [place] [address] LACTATE Collected: 06/07/2018 Status: F Source: [facility] 12:03 [facility] REPOSITORY TYPE CODE TESTS RESULT OUT OF REFERENCE UNITS RANGE LAB LACTATE(OMAR 4.5 - 18.0 mg/dL NC) LACTATE 14.9 Performed By: #### [id number] #### [place] [address] TROPONIN Collected: 06/07/2018 Status: F Source: [facility] 12:03 [facility] REPOSITORY TYPE CODE TESTS RESULT OUT OF REFERENCE UNITS RANGE LAB TROPONIN 0.00 - 0.05 ng/ml I(LOINC) TROPONIN I <0.01 Result Comment: Elevated troponin (above the 99th percentile) usually indicates myocardial ischemia. Results must be interpreted within the clinical setting. 1.Non-ischemic pathology can also cause elevated troponin levels (e.g., acute pulmonary embolism, myocarditis, pericarditis, heart failure, intracranial injury, rhabdomyolisis, sepsis, shock and renal insufficiency). 2.Approximately 1% of healthy adults have elevated troponin levels. 3.Analytical false positive results rarely occur(due to multiple interferences such as heterophile antibodies). Performed By: #### [id number] #### [place] [address] LIPASE Collected: 06/07/2018 Status: F Source: [facility] 12:03 [facility] REPOSITORY TYPE CODE TESTS RESULT OUT OF REFERENCE UNITS RANGE LAB LIPASE(LOIN 18.0 - 51.0 U/L C) LIPASE 21.0 Performed By: #### [id number] #### [place] [address] CMP WITH EGFR Collected: 06/07/2018 Status: F Source: [facility] 12:03 [facility] REPOSITORY TYPE CODE TESTS RESULT OUT OF RANGE REFERENCE UNITS LAB CMP with eGFR(LOINC) CMP with eGFR Result Comment: COMPREHENSIVE METABOLIC PANEL LAB SODIUM(LOINC) 136 - 145 mmol/l SODIUM 136 LAB POTASSIUM(LOINC) 3.5 - 5.1 mmol/L POTASSIUM 3.9 LAB CHLORIDE(LOINC) 98 - 107 mmol/L CHLORIDE 102 LAB CO2(LOINC) 21.0 - mmol/L 31.0 CO2 Low 20.6 LAB GLUCOSE(LOINC) 74 - 106 mg/dl GLUCOSE 85 LAB BUN(LOINC) 6 - 20 mg/dl BUN 17 LAB CREATININE(LOINC) 0.7 - 1.3 mg/dl CREATININE 1.1 LAB AST/SGOT(LOINC) 13 - 39 U/L AST/SGOT 23 LAB ALK PHOS(LOINC) 38 - 126 U/L ALK PHOS 87 LAB CALCIUM(LOINC) 8.6 - mg/dl 10.2 CALCIUM 9.6 LAB TOTAL 6.4 - 8.3 g/dl PROTEIN(LOINC) TOTAL PROTEIN 7.3 LAB ALBUMIN(LOINC) 3.4 - 4.8 g/dL ALBUMIN 4.6 LAB GLOBULIN(LOINC) 1.5 - 3.8 G/DL GLOBULIN 2.7 LAB A/G RATIO(LOINC) 0.9 - 1.6 A/G High RATIO 1.7 LAB TOTAL BILI(LOINC) 0.0 - 1.5 mg/dl TOTAL BILI 0.7 LAB B/C RATIO(LOINC) 0 - 30 ratio B/C RATIO 15 LAB ALT/SGPT(LOINC) 10 - 40 U/L ALT/SGPT 15 LAB ANION GAP(LOINC) 10 - 20 mmol/L ANION GAP 17 LAB AGE(LOINC) years AGE 58 LAB eGFR(LOINC) 60 - 999 ML/MINUTE eGFR >60 LAB eGFR(AA)(LOINC) 60 - 999 ML/MINUTE eGFR(AA) >60 Result Comment: ACCORDING TO THE NATIONAL KIDNEY DISEASE EDUCATION PROGRAM(NKDE), A NORMAL eGFR IS A VALUE GREATER THAN OR EQUAL TO 60 ML/MIN/1.73 SQ METERS. CHRONIC KIDNEY DISEASE: <60mL/MIN/1.73 SQ METERS KIDNEY FAILURE: <15mL/MIN/1.73 SQ METERS THIS TEST SHOULD ONLY BE USED FOR PATIENTS 18 YEARS OF AGE AND OLDER. Performed By: #### [id number] #### [facility],[address] [place], [place] [id number] CBC Collected: 06/07/2018 Status: F Source: [facility] 12:03 PM [facility] REPOSITORY TYPE CODE TESTS RESULT OUT OF RANGE REFERENCE UNITS LAB CBC(LOINC) CBC Result Comment: CBC-COMPLETE BLOOD COUNT LAB WBC(LOINC) 4.5 - 10.8 x 10EE3/UL WBC 10.8 LAB RBC(LOINC) 4.50 - x 10EE6/UL 6.00 RBC 5.50 LAB HEMOGLOBIN(LOINC 13.0 - g/dl ) 17.5 HEMOGLOBIN 17.1 LAB HEMATOCRIT(LOINC 40.0 - % ) 52.0 HEMATOCRIT 48.7 LAB MCV(LOINC) 81 - 98 fl MCV 89 LAB MCH(LOINC) 27 - 33 pg MCH 31 LAB MCHC(LOINC) 32 - 36 X10 3 MCHC 35 LAB RDW/CV(LOINC) 12.0 - % 15.6 RDW/CV 13.3 LAB PLATELET(LOINC) 150 - 450 x10EE3/UL PLATELET 232 LAB MPV(LOINC) 6.4 - 10.5 fl MPV High 11.4 Result Comment: AUTOMATED DIFFERENTIAL LAB NEUT %(LOINC) 46.0 - % 76.0 NEUT % 74.5 LAB LYMPH %(LOINC) 20.0 - % 45.0 LYMPH % 16.8 Low LAB MONOS %(LOINC) 0.0 - 10.0 % MONOS % 7.5 LAB EO %(LOINC) 0.0 - 7.0 % EO % 0.5 LAB BASO %(LOINC) 0.0 - 2.0 % BASO % 0.7 LAB Lymph #(LOINC) 0.80 - x10EE3/ 2.80 UL Lymph # 1.80 LAB Neut #(LOINC) 1.50 - x10EE3/ 7.10 UL Neut # 8.00 High LAB Coal #(LOINC) 0.20 - x10EE3/ 1.00 UL Coal # 0.80 LAB EO #(LOINC) 0.00 - x10EE3/ 0.50 UL EO # 0.10 LAB Baso #(LOINC) 0.00 - x10EE3/ 0.10 UL Baso # 0.10 LAB MANUAL DIFF(LOINC) MANUAL DIFF REVIEWED LAB MORPHOLOGY(LOIN C) MORPHOLOGY SEE BELOW LAB PLT EST(LOINC) PLT EST NORMAL LAB Other(LOINC) Other FEW LARGE PLATELETS Result Comment: {CD] Performed By: #### [id number] #### [facility],[address] [place], [place] [id number] CT-ANGIOGRAPHY ABDOMEN & Observed: 06/07/2018 Status: F Source: [place] 12:00 AM [facility] [place] REPOSITORY Images were obtained outside of [facility] [id number] EMERGENCY REPORT Observed: 04/30/2018 Status: F Source: [facility] 12:20 PM [facility] REPOSITORY [facility] EMERGENCY ROOM REPORT NAME ACCOUNT SEX AGE ADMIT DISCHARGE PT MED. RECORD# NUMBER DATE DATE TYPE RAJENDRA HOFFMAN [id number] M 58 04/30/18 3 N [id number] ROOM: ER DATE OF : 1960 DICTATING PHYSICIAN: Belkis Molina CHIEF COMPLAINT: Neck and back pain. HISTORY OF PRESENT ILLNESS: The patient is a 58-year-old male patient who presents to the emergency department ambulatory after driving himself here. He says for the past couple of days he has had severe pain on the sides of his neck, his back, and his low back spasming. He has been using a heating pad. He does not recall a particular incident. He has had ongoing problems with his neck since he had a surgical fusion a number of years ago. He saw a neurologist 2 years ago, and they said they did not need to do anything different unless he had an issue of spinal cord impingement. He stated that it has gotten increasingly worse where he cannot sleep and he is holding his neck to the side. Normally it hurts on the right side, but now it is hurting on the left all the way down the spine into the low back. No fever, chills, fall, trauma, numbness, tingling, weakness, or loss of bowel or bladder function. PAST MEDICAL HISTORY: Neck injury. PAST SURGICAL HISTORY: Cervical fusion. FAMILY HISTORY: Noncontributory. SOCIAL HISTORY: He denies alcohol, tobacco, or illicit drug abuse. REVIEW OF SYSTEMS: Ten systems reviewed and present above in the HPI. PHYSICAL EXAMINATION: General: The patient is awake, alert, very uncomfortable holding his posture in tight position with his shoulders shrugged and his head to the right side. He has pain and spasm with moving or changing position. His pain is not midline, cervical, thoracic, or lumbar. It is paracervical, parathoracic, and paralumbar in nature. 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 No lower extremity edema, calf tenderness, swelling, or weakness. EMERGENCY DEPARTMENT COURSE AND TREATMENT: At this point, this is 100% musculoskeletal in nature associated with spasm and the way he is holding his neck and his posture. I went ahead and gave him an oral Valium and Toradol and he feels significantly improved. I gave him some heat. He is doing great now. He is up and Page 1 of 2 RAJENDRA HOFFMAN Emergency Room Report ambulating to the bathroom. He says that really took the edge off of it for him. He does not need any imaging at this point. No neurological deficits. DIAGNOSIS: Cervical thoracic strain with spasm. PLAN/DISPOSITION: I am going to start him on Flexeril, close PCP follow up, and discussed reasons for ED return sooner. Dictated By: Belkis Molina DO 04/30/18 15:07 JOB #: [id number] Transcribed By: matthieu 04/30/18 15:14 Electronically signed by: E-Sign: BELKIS MOLINA MD 05/12/18 12:00 Page 2 of 2 RAJENDRA HOFFMAN Emergency Room Report LIPID PROFILE Collected: 04/14/2018 Status: F Source: [facility] 7:30 AM [facility] REPOSITORY TYPE CODE TESTS RESULT OUT OF REFERENCE UNITS RANGE LAB LIPID PROFILE(LOIN C) LIPID PROFILE Result Comment: LIPID PROFILE LAB TRIGLYCERIDE(LOINC) 0 - 150 mg/dl TRIGLYCERIDE 89 LAB CHOLESTEROL(LOINC) 0 - 200 mg/dl CHOLESTEROL 138 LAB HDL(LOINC) 40 - 60 mg/dl HDL 56 LAB CHOL/HDL(LOINC) 0.0 - 5.0 CHOL/HDL 2.5 LAB LDL(LOINC) 0 - 129 mg/dl LDL 64 Performed By: #### [id number] #### [facility],[address] [place] [address] CMP WITH EGFR Collected: 04/14/2018 Status: F Source: [facility] 7:30 AM [facility] REPOSITORY TYPE CODE TESTS RESULT OUT OF RANGE REFERENCE UNITS LAB CMP with eGFR(LOINC) CMP with eGFR Result Comment: COMPREHENSIVE METABOLIC PANEL LAB SODIUM(LOINC) 136 - 145 mmol/l SODIUM 138 LAB POTASSIUM(LOINC) 3.5 - 5.1 mmol/L POTASSIUM 4.2 LAB CHLORIDE(LOINC) 98 - 107 mmol/L CHLORIDE 103 LAB CO2(LOINC) 21.0 - mmol/L 31.0 CO2 22.5 LAB GLUCOSE(LOINC) 74 - 106 mg/dl GLUCOSE 91 LAB BUN(LOINC) 6 - 20 mg/dl BUN 14 LAB CREATININE(LOINC) 0.7 - 1.3 mg/dl CREATININE 1.1 LAB AST/SGOT(LOINC) 13 - 39 U/L AST/SGOT 21 LAB ALK PHOS(LOINC) 38 - 126 U/L ALK PHOS 95 LAB CALCIUM(LOINC) 8.6 - mg/dl 10.2 CALCIUM 10.2 LAB TOTAL PROTEIN(LOINC) 6.4 - 8.3 g/dl TOTAL PROTEIN 7.8 LAB ALBUMIN(LOINC) 3.4 - 4.8 g/dL ALBUMIN 4.8 LAB GLOBULIN(LOINC) 1.5 - 3.8 G/DL GLOBULIN 3.0 LAB A/G RATIO(LOINC) 0.9 - 1.6 A/G RATIO 1.6 LAB TOTAL BILI(LOINC) 0.0 - 1.5 mg/dl TOTAL BILI 0.8 LAB B/C RATIO(LOINC) 0 - 30 ratio B/C RATIO 13 LAB ALT/SGPT(LOINC) 10 - 40 U/L ALT/SGPT 13 LAB ANION GAP(LOINC) 10 - 20 mmol/L ANION GAP 17 LAB AGE(LOINC) years AGE 57 LAB eGFR(LOINC) 60 - 999 ML/MINUTE eGFR >60 LAB eGFR(AA)(LOINC) 60 - 999 ML/MINUTE eGFR(AA) >60 Result Comment: ACCORDING TO THE NATIONAL KIDNEY DISEASE EDUCATION PROGRAM(NKDE), A NORMAL eGFR IS A VALUE GREATER THAN OR EQUAL TO 60 ML/MIN/1.73 SQ METERS. CHRONIC KIDNEY DISEASE: <60mL/MIN/1.73 SQ METERS KIDNEY FAILURE: <15mL/MIN/1.73 SQ METERS THIS TEST SHOULD ONLY BE USED FOR PATIENTS 18 YEARS OF AGE AND OLDER. Performed By: #### [id number] #### [place] [address] CHEST 2 VIEWS Observed: 04/13/2018 Status: F Source: [facility] 6:32 PM [place] [address] Patient: RAJENDRA HOFFMAN Phone#: : 1960 Age: 57 Gender: M Pt. Type: Out Account: [id number] Location: 052 Ordering: RICHARD DAI Exam Date: 04/13/2018/18:20 Family Phys: CECI ESCALERA Charge Code: [id number] Physician: [place] Order #: [id number] DLP Dose#: PROCEDURE: X-RAY CHEST 2 VIEWS COMPARISON: [facility], XR, CHEST PA/LAT, 10/07/2014, 7:23. INDICATIONS: Chest Pain FINDINGS: LUNGS: Normal. No significant pulmonary parenchymal abnormalities. VASCULATURE: Normal. Unremarkable pulmonary vasculature. CARDIAC: Normal. No cardiac silhouette abnormality or cardiomegaly. MEDIASTINUM: Normal. No visible mass or adenopathy. PLEURA: Normal. No effusion or pleural thickening. BONES: Surgical fixation at the lower cervical/upper thoracic spine is present. OTHER: Negative. CONCLUSION: No acute disease. COPD. No significant change has occurred. Dictated by: Tri Theodore MD on 04/13/2018 at 19:12 Approved by: Tri Theodore MD on 04/13/2018 at 19:12 CNOV Observed: 02/20/2018 Status: COMPLETED Source: [place] 9:10 AM [facility] REPOSITORY Office Visit (GASTMN) RAJENDRA HOFFMAN ([id number]) 1960 M Date Time Provider Department 02/20/18 9:10 AM RICHARD ANDRES During your visit today, we recorded the following information about you: Pulse Blood pressure Weight Height 64/minute 124/78 49.9 kg 1.791 m Richard Andres MD 02/20/2018 10:05 AM Signed New Patient/Consult REASON FOR VISIT Rajendra Hoffman is a 57 year old male who is scheduled for Consult to Gastroenterology at the request of Marisa Gorman. My final recommendations will be communicated back to the requesting physician by the way of the shared medical record, fax, or via US Mail. PRESENTING COMPLAINT AND HISTORY --stomach pains since teenager --Epigastric pressure/burning (always present), may turn into stabbing --Not worse with eating or exercise. Worst in morning, improved with getting up and walking --Being seen by vascular for mesenteric ischemia, s/p stenting ---Per patient, he had EGD with small contained perforation of the esophagus in 2014 (EGD was done in [place]). Treated with supportive therapy ---History of CBD stone, s/p ERCP removal in 2014 --Per patient, he has had normal LFTs in the past 3 months (through PCP) GI EVALUATION SURGICAL PATHOLOGY :-05/30/16- FINAL DIAGNOSIS: LIVER, CORE BIOPSIES - ACUTE CHOLANGITIS AND CHOLESTASIS. ?SEE COMMENT. CTA CHEST/ABD/PEL (NONGATED) WO/W IV CON :-09/18/16- IMPRESSION: 1. CRITICAL GREATER THAN 90% DOWNWARD CELIAC OSTIAL NARROWING SUSPICIOUS FOR MEDIUM ARCUATE LIGAMENT SYNDROME/ MALS. ?MODERATE TO SEVERE JUXTA OSTIAL SMA STENOSIS. ?CRITICAL GREATER THAN 90% ROMARIO OSTIAL STENOSIS. ? HOWEVER, THESE VESSELS REMAIN WIDELY PATENT DISTAL TO STENOSIS. 2. ?MILD ATHEROSCLEROTIC DISEASE OF THE ABDOMINAL AORTA AND ILIAC ARTERIES WITHOUT SIGNIFICANT FOCAL STENOSIS OR ANEURYSMAL DILATATION. 1. ?3. ?NO CT EVIDENCE OF ACUTE PROCESS IN THE ABDOMEN OR PELVIS. CT ABD PEL W CONT :-05/25/16- IMPRESSION: -Cholecystectomy. -Atherosclerotic vascular disease as discussed. -Moderate amount of stool within the colon. -Details and incidental findings as discussed rosuvastatin (CRESTOR) 10 mg tablet Take 1 tablet by mouth daily at bedtime. pantoprazole DR (PROTONIX) 20 mg tablet Take 1 tablet by mouth once daily. aspirin 81 mg chewable tablet Take 1 tablet by mouth once daily. clopidogrel (PLAVIX) 75 mg tablet Take 1 tablet by mouth once daily. multivitamin tablet Take 1 tablet by mouth daily at bedtime. Omeprazole FAMILY HISTORY Liver Problems: No Colitis: No Colon Cancer: Yes Other Cancers: Yes FAMILY HISTORY Problem Relation Age of Onset - Cancer Mother lung - Cancer Maternal Grandmother lung - Colon Cancer Father - Cancer Maternal Grandfather throat - Cancer Maternal Aunt bone ADDITIONAL HISTORY Colon polyps: Yes Colon cancer: No Other cancer: No Radiation / Chemotherapy: No Crohn's disease / Ulcerative colitis: No High cholesterol or triglycerides: No Ulcers: Yes Gallstones: Yes Hepatitis / jaundice: No Heart Disease: No Lung Disease: No Liver problems: Yes Thyroid disease: No Kidney stones: Yes Pancreatitis: No Diabetes: No Arthritis: Yes Rheumatic fever: No Gastrointestinal bleeding: No Depression or other mental illness: No Other personal illness: Yes Weekly narcotic analgesic: No Organ transplant: No Other implanted devices: No Previous GI surgery: Yes PAST MEDICAL HISTORY Diagnosis Date - GERD (gastroesophageal reflux disease) - Mesenteric artery stenosis (HCC) PAST SURGICAL HISTORY Procedure Laterality Date - ADDTL NECK SPINE FUSION - CHOLECYSTECTOMY - EGD W/O OR W/BRUSH/WASH 09/2014 EGD Social History Marital status: Spouse name: Years of education: Number of children: Social History Main Topics Smoking status: Current Every Day Smoker Packs/day: 0.00 Years: 23.00 Types: Cigarettes Smokeless tobacco: Never Used Comment: 10-15 per day Alcohol use: No Comment: very very seldom Drug use: No Comment: used to smoke [place] REVIEW OF SYSTEMS EyesNegative for vision changes, diplopia or epiphora. Ears, Mouth, nose, throat:No problems Cardiovascular: see above Respiratory: Negative for cough, wheezing and shortness of breath Gastrointestinal : see above Genitourinary: Negative Musuloskeletal: Denies significant problems Integumentary: no rashes, lesions, or jaundice Neurological: No history of neurologic problems Endocrine: Negative for cold or heat intolerance, polyuria, polydipsia and goiter. Psychiatric: Cooperative and agreeable Allergic/ Immunologic: Negative All others negative. GI SPECIFIC REVIEW OF SYSTEMS Difficulty swallowing / foods sticking in throat: Yes Heartburn: No Hoarseness: No Chronic cough: No Regurgitation: Yes Chest pain: No Filling up quickly at meals: No Loss of appetite: Yes Nausea: Yes Vomiting: No Abdominal pain: Yes Recent change in bowel movements: Yes Bloody or black, bowel movements: No Constipation: Yes Diarrhea: Yes Loss of control of bowel movements: Yes Night sweats, fever, chills: No Thought or memory problems: No Fluid in abdomen (ascites): No Prominent leg swelling: No Vomiting blood: No Recent change in weight: Yes Fluctuates by 20 lbs Primary eating disorder: No Seizures: No PHYSICAL EXAMINATION BP 124/78 Pulse 64 Ht 5' 10.5 (1.79m) Wt 110 lb (49.9kg) SpO2 99% BMI 15.56 kg/(m2). General appearance: well appearing, alert, in no acute distress and well-hydrated, well nourished Skin: Skin color, texture, turgor normal, no suspicious rashes or lesions Head: normal Neck: Supple, no adenopathy; thyroid symmetric, normal size, no bruits Back: Normal exam Lungs: lungs clear to auscultation, no wheezing or rhonchi Heart: RRR without murmur, gallop, or rubs. Abdomen: Normal abdominal exam, Abdomen soft, mild tenderness in epigastrium. Bowel sounds normal. No masses, organomegaly Extremities: No deformities, edema, skin discoloration, clubbing or cyanosis. Good capillary refill. Assessment Impression and Plan Pleasant 57M with history of mesenteric ischemia s/p stenting with good flow, presents with chronic (~40 years) dyspepsia. 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 Schedule EGD 2. I would recommend trying a low dose of an antidepressant called amitriptyline. This helps to decrease nerve pain and confusion - it works through the serotonin and norepinephrine chemicals in your body. I start with a very low dose of 10mg (the max dose is 300mg) and increase it every month as needed. The main side effect is sleepiness, so you take it at night before bed. Can you send me an update through [employer] in 2-4 weeks? We can increase the dose as needed. Referring Provider: MARISA GORMAN [[id number]] Allergies As of Date: 02/20/2018 Noted Allergy Reaction OMEPRAZOLE 05/26/2015 14 - Other: See Comments Comments: Headaches Date Reviewed: 02/20/2018 Reviewed by: Pia Velarde International Marketing Specialist - Fully Assessed Reason for Visit: Consult [502] Cmt: Abdominal pain Reason For Visit History Recorded Primary Visit Diagnosis:Functional dyspepsia [K30] Order(s):EGD [7699490] Order #: [id number] FUTURE amitriptyline (ELAVIL) 10 mg tabletTake 1 tablet by mouth daily at bedtime.Disp: 90 tabletRfl: 3 Prescriptions as of 02/20/2018 Sig: ROSUVASTATIN 10 MG TABLET Take 1 tablet by mouth daily * PANTOPRAZOLE 20 MG TABLET,DEL* Take 1 tablet by mouth once d* ASPIRIN 81 MG CHEWABLE TABLET Take 1 tablet by mouth once d* CLOPIDOGREL 75 MG TABLET Take 1 tablet by mouth once d* AMITRIPTYLINE 10 MG TABLET Take 1 tablet by mouth daily * MULTIVITAMIN TABLET Take 1 tablet by mouth daily * Problem List As Of Date 02/20/2018 Noted Resolved 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 Epigastric pain [R10.13] INVALID FOR* Priority: F More... Severe protein-calorie malnutrition (HCC) [E43] INVALID FOR* Priority: G More... SUMMARY INVALID FOR* Priority: A More... History of cholangitis [Z87.19] INVALID FOR* Priority: M More... 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 Abdominal pain [R10.9] INVALID FOR* Chronic mesenteric ischemia (HCC) [K55.1] INVALID FOR* Priority: A More... Nicotine use disorder, F17.2 [F17.200] INVALID FOR* Other instructions from your clinician: 1. Schedule EGD 2. I would recommend trying a low dose of an antidepressant called amitriptyline. This helps to decrease nerve pain and confusion - it works through the serotonin and norepinephrine chemicals in your body. I start with a very low dose of 10mg (the max dose is 300mg) and increase it every month as needed. The main side effect is sleepiness, so you take it at night before bed. Can you send me an update through [employer] in 2-4 weeks? We can increase the dose as needed. Prescriptions ordered this encounter Disp Refills Start End AMITRIPTYLINE 10 MG TABLET 90 t* 3 02/20/2018 Route: ORAL Sig: Take 1 tablet by mouth daily at bedtime. Encounter Status:Closed by RICHARD ANDRES MD on 02/20/18 CNCO Observed: 02/20/2018 Status: COMPLETED Source: [place] 12:00 AM [facility] REPOSITORY Letter Text Dear Rajendra Hoffman: How to activate your [facility]net Account 1. Visit the [employer] Signup page at [email or web address] 2. Identify yourself using your one-time use activation code: Not generated 3. Follow the on-screen prompts to choose your own secure username and password The following information will be necessary to access your account for the first time: Information needed for sign-up: Your custom activation code used one-time only for the initial account set-up. Your date of The last 4 digits of your social security number What to do next: Fill in the requested information on the Identify Yourself Form at [email or web address] , click Next. Create your login and password, choose a [facility]net ID and password that will be easy for you to use, but impossible for anyone else to guess. Pick a security question that will assist you in the event you forget your password the next time you log-on. If you have difficulty activating your account, please call our [facility] helpline at [phone] or toll free at . We hope you enjoy using [employer]net! Kindest Regards, [facility]net Team PROGRESS Observed: 02/19/2018 Status: COMPLETED Source: [place] 3:31 PM [facility] REPOSITORY HNO ID: [id number] Author: Richard Andres Service: (none) Author Type: Physician Type: Progress Notes Filed: 02/20/2018 10:05 AM Note Text: New Patient/Consult REASON FOR VISIT Rajendra Hoffman is a 57 year old male who is scheduled for Consult to Gastroenterology at the request of Marisa Gorman. My final recommendations will be communicated back to the requesting physician by the way of the shared medical record, fax, or via US Mail. PRESENTING COMPLAINT AND HISTORY --stomach pains since teenager --Epigastric pressure/burning (always present), may turn into stabbing --Not worse with eating or exercise. Worst in morning, improved with getting up and walking --Being seen by vascular for mesenteric ischemia, s/p stenting ---Per patient, he had EGD with small contained perforation of the esophagus in 2014 (EGD was done in [place]). Treated with supportive therapy ---History of CBD stone, s/p ERCP removal in 2014 --Per patient, he has had normal LFTs in the past 3 months (through PCP) GI EVALUATION SURGICAL PATHOLOGY :-05/30/16- FINAL DIAGNOSIS: LIVER, CORE BIOPSIES - ACUTE CHOLANGITIS AND CHOLESTASIS. ?SEE COMMENT. CTA CHEST/ABD/PEL (NONGATED) WO/W IV CON :-09/18/16- IMPRESSION: 1. CRITICAL GREATER THAN 90% DOWNWARD CELIAC OSTIAL NARROWING SUSPICIOUS FOR MEDIUM ARCUATE LIGAMENT SYNDROME/ MALS. ?MODERATE TO SEVERE JUXTA OSTIAL SMA STENOSIS. ?CRITICAL GREATER THAN 90% ROMARIO OSTIAL STENOSIS. ? HOWEVER, THESE VESSELS REMAIN WIDELY PATENT DISTAL TO STENOSIS. 2. ?MILD ATHEROSCLEROTIC DISEASE OF THE ABDOMINAL AORTA AND ILIAC ARTERIES WITHOUT SIGNIFICANT FOCAL STENOSIS OR ANEURYSMAL DILATATION. 1. ?3. ?NO CT EVIDENCE OF ACUTE PROCESS IN THE ABDOMEN OR PELVIS. CT ABD PEL W CONT :-05/25/16- IMPRESSION: -Cholecystectomy. -Atherosclerotic vascular disease as discussed. -Moderate amount of stool within the colon. -Details and incidental findings as discussed rosuvastatin (CRESTOR) 10 mg tablet Take 1 tablet by mouth daily at bedtime. pantoprazole DR (PROTONIX) 20 mg tablet Take 1 tablet by mouth once daily. aspirin 81 mg chewable tablet Take 1 tablet by mouth once daily. clopidogrel (PLAVIX) 75 mg tablet Take 1 tablet by mouth once daily. multivitamin tablet Take 1 tablet by mouth daily at bedtime. Omeprazole FAMILY HISTORY Liver Problems: No Colitis: No Colon Cancer: Yes Other Cancers: Yes FAMILY HISTORY Problem Relation Age of Onset - Cancer Mother lung - Cancer Maternal Grandmother lung - Colon Cancer Father - Cancer Maternal Grandfather throat - Cancer Maternal Aunt bone ADDITIONAL HISTORY Colon polyps: Yes Colon cancer: No Other cancer: No Radiation / Chemotherapy: No Crohn's disease / Ulcerative colitis: No High cholesterol or triglycerides: No Ulcers: Yes Gallstones: Yes Hepatitis / jaundice: No Heart Disease: No Lung Disease: No Liver problems: Yes Thyroid disease: No Kidney stones: Yes Pancreatitis: No Diabetes: No Arthritis: Yes Rheumatic fever: No Gastrointestinal bleeding: No Depression or other mental illness: No Other personal illness: Yes Weekly narcotic analgesic: No Organ transplant: No Other implanted devices: No Previous GI surgery: Yes PAST MEDICAL HISTORY Diagnosis Date - GERD (gastroesophageal reflux disease) - Mesenteric artery stenosis (HCC) PAST SURGICAL HISTORY Procedure Laterality Date - ADDTL NECK SPINE FUSION - CHOLECYSTECTOMY - EGD W/O OR W/BRUSH/WASH 09/2014 EGD Social History Marital status: Spouse name: Years of education: Number of children: Social History Main Topics Smoking status: Current Every Day Smoker Packs/day: 0.00 Years: 23.00 Types: Cigarettes Smokeless tobacco: Never Used Comment: 10-15 per day Alcohol use: No Comment: very very seldom Drug use: No Comment: used to smoke marijuanna REVIEW OF SYSTEMS EyesNegative for vision changes, diplopia or epiphora. Ears, Mouth, nose, throat:No problems Cardiovascular: see above Respiratory: Negative for cough, wheezing and shortness of breath Gastrointestinal : see above Genitourinary: Negative Musuloskeletal: Denies significant problems Integumentary: no rashes, lesions, or jaundice Neurological: No history of neurologic problems Endocrine: Negative for cold or heat intolerance, polyuria, polydipsia and goiter. Psychiatric: Cooperative and agreeable Allergic/ Immunologic: Negative All others negative. GI SPECIFIC REVIEW OF SYSTEMS Difficulty swallowing / foods sticking in throat: Yes Heartburn: No Hoarseness: No Chronic cough: No Regurgitation: Yes Chest pain: No Filling up quickly at meals: No Loss of appetite: Yes Nausea: Yes Vomiting: No Abdominal pain: Yes Recent change in bowel movements: Yes Bloody or black, bowel movements: No Constipation: Yes Diarrhea: Yes Loss of control of bowel movements: Yes Night sweats, fever, chills: No Thought or memory problems: No Fluid in abdomen (ascites): No Prominent leg swelling: No Vomiting blood: No Recent change in weight: Yes Fluctuates by 20 lbs Primary eating disorder: No Seizures: No PHYSICAL EXAMINATION BP 124/78 Pulse 64 Ht 5' 10.5 (1.79m) Wt 110 lb (49.9kg) SpO2 99% BMI 15.56 kg/(m2). General appearance: well appearing, alert, in no acute distress and well-hydrated, well nourished Skin: Skin color, texture, turgor normal, no suspicious rashes or lesions Head: normal Neck: Supple, no adenopathy; thyroid symmetric, normal size, no bruits Back: Normal exam Lungs: lungs clear to auscultation, no wheezing or rhonchi Heart: RRR without murmur, gallop, or rubs. Abdomen: Normal abdominal exam, Abdomen soft, mild tenderness in epigastrium. Bowel sounds normal. No masses, organomegaly Extremities: No deformities, edema, skin discoloration, clubbing or cyanosis. Good capillary refill. Assessment Impression and Plan Pleasant 57M with history of mesenteric ischemia s/p stenting with good flow, presents with chronic (~40 years) dyspepsia. He has history of contained esophageal perforation after EGD (unclear if due to biopsies or retching/Boorhaaeve after EGD) He fits Anjum IV criteria for functional dyspepsia, long chat about FD Recommend: --Careful EGD, would give IV zofran with first dose of meds --Amitriptyline 10mg QHS --FDGard as needed --RTC in 3 months Richard Andres MD PROGRESS Observed: 01/19/2018 Status: COMPLETED Source: [place] 9:37 AM [facility] REPOSITORY [facility] ID: [id number] Author: Marisa Gorman MD Service: (none) Author Type: Physician Type: Progress Notes Filed: 01/19/2018 9:44 AM Note Text: VASCULAR SURGERY ESTABLISHED PATIENT SERVICE DATE: 01/19/2018 SERVICE TIME: 9:37 AM PRIMARY CARE PHYSICIAN: Richard Dai MD SUBJECTIVE HISTORY OF PRESENT ILLNESS: Patient returns for a follow up after 6 month s/p SMA stenting and celiac artery angioplasty. He had some SMA origin disease still which was stented at last visit. He now feels completely improved and is eating well without nausea or pain. His weight is slightly down, but he is eating well. MESENTERIC VESSELS Celiac: 0-69% stenosis. No evidence of hemodynamically significant stenosis. Stent ?noted. Hepatic: Patent. Splenic: Patent. Superior mesenteric artery: 0-69% stenosis. No evidence of hemodynamically significant stenosis. Stent noted. Inferior mesenteric artery: 60-99% stenosis. PAST MEDICAL/SURGICAL/FAMILY/SOCIAL HISTORY PAST MEDICAL HISTORY Diagnosis Date - GERD (gastroesophageal reflux disease) - Mesenteric artery stenosis (HCC) PAST SURGICAL HISTORY Procedure Laterality Date - ADDTL NECK SPINE FUSION - CHOLECYSTECTOMY - EGD W/O OR W/BRUSH/WASH 09/2014 EGD FAMILY HISTORY Problem Relation Age of Onset - Cancer Mother - Cancer Maternal Grandmother SOCIAL HISTORYSocial History Marital status: Spouse name: Years of education: Number of children: Social History Main Topics Smoking status: Current Every Day Smoker Packs/day: 0.50 Years: 23.00 Types: Cigarettes Smokeless tobacco: Never Used Alcohol use: Yes Comment: very very seldom Drug use: No Comment: used to smoke [employer] MEDICATIONS/ALLERGIES Current Outpatient Prescriptions: rosuvastatin (CRESTOR) 10 mg tablet Take 1 tablet by mouth daily at bedtime. Disp: 30 tablet Rfl: [address] (PROTONIX) 20 mg tablet Take 1 tablet by mouth once daily. Disp: 30 tablet Rfl: 2 multivitamin tablet Take 1 tablet by mouth daily at bedtime. Disp: Rfl: aspirin 81 mg chewable tablet Take 1 tablet by mouth once daily. Disp: Rfl: 0 clopidogrel (PLAVIX) 75 mg tablet Take 1 tablet by mouth once daily. Disp: Rfl: 0 No current facility-administered medications for this visit. ALLERGIES Allergen Reactions - Omeprazole Other: See Comments Headaches OBJECTIVE BP 111/80 Pulse 74 Temp 36.4 ?C (97.5 ?F) (Temporal Artery) Resp 18 Wt 49.4 kg (109 lb) SpO2 94% BMI 15.64 kg/m? PHYSICAL EXAMINATION: General appearance: Well appearing, alert, in no acute distress, well-hydrated, well nourished. Skin: Skin color, texture, turgor normal, no suspicious rashes or lesions Head: Normocephalic, no masses, lesions, tenderness or abnormalities Eyes: Anicteric sclera. Pupils are equally round and reactive to light. Extraocular movements are intact. Abdomen: Normal abdominal exam, Abdomen soft, non-tender. Bowel sounds normal. No masses, organomegaly Extremities: No deformities, edema, skin discoloration, clubbing or cyanosis. Good capillary refill. Musculoskeletal: No joint swelling, deformity, or tenderness Peripheral pulses: Normal Neuro: Gait normal. Sensation grossly intact. 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 He is doing okay overall, but is getting some nausea once every other week. THis worries him. His duplex demonstrates patent stents,but his ROMARIO is narrowed. THe velocity is not much elevated from last visit, but just enough to suggest 60-99% stenosis. PLAN/RECOMMENDATIONS Follow up in 3 months with mesenteric duplex for a close follow up due to his worsening nausea. THis will allow us to closely monitor and repeat duplex at that time. He will come in sooner if he worsens. GI medicine consult. He has a h/o hiatal hernia as well. SIGNATURE: Marisa Gorman MD, MD PATIENT NAME: Rajendra Hoffman DATE: January 19, 2018 TIME: 9:37 AM CNOV Observed: 01/14/2018 Status: COMPLETED Source: [place] 2:30 PM [facility] REPOSITORY Office Visit (FREDERICK) RAJENDRA HOFFMAN ([id number]) 1960 M Date Time Provider Department 01/14/18 2:30 PM MARISA GORMAN During your visit today, we recorded the following information about you: Temperature Pulse Respiration Blood pressure 97.5 degrees 74/minute 18/minute 111/80 Weight 49.4 kg Marisa Gorman MD, MD 01/19/2018 9:44 AM Signed VASCULAR SURGERY ESTABLISHED PATIENT SERVICE DATE: 01/19/2018 SERVICE TIME: 9:37 AM PRIMARY CARE PHYSICIAN: Richard Dai MD SUBJECTIVE HISTORY OF PRESENT ILLNESS: Patient returns for a follow up after 6 month s/p SMA stenting and celiac artery angioplasty. He had some SMA origin disease still which was stented at last visit. He now feels completely improved and is eating well without nausea or pain. His weight is slightly down, but he is eating well. MESENTERIC VESSELS Celiac: 0-69% stenosis. No evidence of hemodynamically significant stenosis. Stent ?noted. Hepatic: Patent. Splenic: Patent. Superior mesenteric artery: 0-69% stenosis. No evidence of hemodynamically significant stenosis. Stent noted. Inferior mesenteric artery: 60-99% stenosis. PAST MEDICAL/SURGICAL/FAMILY/SOCIAL HISTORY PAST MEDICAL HISTORY Diagnosis Date - GERD (gastroesophageal reflux disease) - Mesenteric artery stenosis (HCC) PAST SURGICAL HISTORY Procedure Laterality Date - ADDTL NECK SPINE FUSION - CHOLECYSTECTOMY - EGD W/O OR W/BRUSH/WASH 09/2014 EGD FAMILY HISTORY Problem Relation Age of Onset - Cancer Mother - Cancer Maternal Grandmother SOCIAL HISTORYSocial History Marital status: Spouse name: Years of education: Number of children: Social History Main Topics Smoking status: Current Every Day Smoker Packs/day: 0.50 Years: 23.00 Types: Cigarettes Smokeless tobacco: Never Used Alcohol use: Yes Comment: very very seldom Drug use: No Comment: used to smoke [facility] MEDICATIONS/ALLERGIES Current Outpatient Prescriptions: rosuvastatin (CRESTOR) 10 mg tablet Take 1 tablet by mouth daily at bedtime. Disp: 30 tablet Rfl: [address] (PROTONIX) 20 mg tablet Take 1 tablet by mouth once daily. Disp: 30 tablet Rfl: 2 multivitamin tablet Take 1 tablet by mouth daily at bedtime. Disp: Rfl: aspirin 81 mg chewable tablet Take 1 tablet by mouth once daily. Disp: Rfl: 0 clopidogrel (PLAVIX) 75 mg tablet Take 1 tablet by mouth once daily. Disp: Rfl: 0 No current facility-administered medications for this visit. ALLERGIES Allergen Reactions - Omeprazole Other: See Comments Headaches OBJECTIVE BP 111/80 Pulse 74 Temp 36.4 ?C (97.5 ?F) (Temporal Artery) Resp 18 Wt 49.4 kg (109 lb) SpO2 94% BMI 15.64 kg/m? PHYSICAL EXAMINATION: General appearance: Well appearing, alert, in no acute distress, well-hydrated, well nourished. Skin: Skin color, texture, turgor normal, no suspicious rashes or lesions Head: Normocephalic, no masses, lesions, tenderness or abnormalities Eyes: Anicteric sclera. Pupils are equally round and reactive to light. Extraocular movements are intact. Abdomen: Normal abdominal exam, Abdomen soft, non-tender. Bowel sounds normal. No masses, organomegaly Extremities: No deformities, edema, skin discoloration, clubbing or cyanosis. Good capillary refill. Musculoskeletal: No joint swelling, deformity, or tenderness Peripheral pulses: Normal Neuro: Gait normal. Sensation grossly intact. 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 He is doing okay overall, but is getting some nausea once every other week. THis worries him. His duplex demonstrates patent stents,but his ROMARIO is narrowed. THe velocity is not much elevated from last visit, but just enough to suggest 60-99% stenosis. PLAN/RECOMMENDATIONS Follow up in 3 months with mesenteric duplex for a close follow up due to his worsening nausea. THis will allow us to closely monitor and repeat duplex at that time. He will come in sooner if he worsens. GI medicine consult. He has a h/o hiatal hernia as well. 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 Epigastric pain [R10.13] INVALID FOR* Priority: F More... Severe protein-calorie malnutrition (HCC) [E43] INVALID FOR* Priority: G More... SUMMARY INVALID FOR* Priority: A More... History of cholangitis [Z87.19] INVALID FOR* Priority: M More... 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 Abdominal pain [R10.9] INVALID FOR* Chronic mesenteric ischemia (HCC) [K55.1] INVALID FOR* Priority: A More... Nicotine use disorder, F17.2 [F17.200] INVALID FOR* Encounter Status:Closed by MARISA GORMAN MD on 01/19/18 CNCO Observed: 01/14/2018 Status: COMPLETED Source: [place] 12:00 AM [facility] REPOSITORY Letter Text Marisa Gorman MD Department of Vascular Surgery [address] [place], [place] [id number] Office: [phone] Appointments: [phone] January 22, 2018 Richard Dai MD ([facility]) [address] [place] [id number] NAME: Rajendra Hoffman [facility] NO.: [id number] : 1960 DATE OF SERVICE: 01/14/[address] Dai: Your patient, Mr. Hoffman, was seen by me in the office for a follow-up. The details of his treatment plan are included in my office note, a copy of which is included for your interest and records. I appreciate the opportunity to participate in Mr. Hoffman's evaluation and treatment. If I can provide further information, please do not hesitate to contact me. Sincerely yours, Marisa Gorman MD (Signed electronically to expedite mailing) DH/kk Enclosure LIPID PROFILE Collected: 10/09/2017 Status: F Source: [facility] 8:16 AM [facility] REPOSITORY TYPE CODE TESTS RESULT OUT OF REFERENCE UNITS RANGE LAB LIPID PROFILE(LOIN C) LIPID PROFILE Result Comment: LIPID PROFILE LAB TRIGLYCERIDE(LOINC) 0 - 150 mg/dl TRIGLYCERIDE 62 LAB CHOLESTEROL(LOINC) 0 - 200 mg/dl CHOLESTEROL 118 LAB HDL(LOINC) 40 - 60 mg/dl HDL 43 LAB CHOL/HDL(LOINC) 0.0 - 5.0 CHOL/HDL 2.7 LAB LDL(LOINC) 0 - 129 mg/dl LDL 63 Performed By: #### [id number] #### [facility],[address] [place] [address] CMP WITH EGFR Collected: 10/09/2017 Status: F Source: [facility] 8:16 AM [facility] REPOSITORY TYPE CODE TESTS RESULT OUT OF RANGE REFERENCE UNITS LAB CMP with eGFR(LOINC) CMP with eGFR Result Comment: COMPREHENSIVE METABOLIC PANEL LAB SODIUM(LOINC) 136 - 145 mmol/l SODIUM 138 LAB POTASSIUM(LOINC) 3.5 - 5.1 mmol/L POTASSIUM 4.0 LAB CHLORIDE(LOINC) 98 - 107 mmol/L CHLORIDE 103 LAB CO2(LOINC) 21.0 - mmol/L 31.0 CO2 25.7 LAB GLUCOSE(LOINC) 74 - 106 mg/dl GLUCOSE 81 LAB BUN(LOINC) 6 - 20 mg/dl BUN 15 LAB CREATININE(LOINC) 0.7 - 1.3 mg/dl CREATININE 1.0 LAB AST/SGOT(LOINC) 13 - 39 U/L AST/SGOT 25 LAB ALK PHOS(LOINC) 38 - 126 U/L ALK PHOS 85 LAB CALCIUM(LOINC) 8.6 - mg/dl 10.2 CALCIUM 9.7 LAB TOTAL 6.4 - 8.3 g/dl PROTEIN(LOINC) TOTAL PROTEIN 7.2 LAB ALBUMIN(LOINC) 3.4 - 4.8 g/dL ALBUMIN 4.7 LAB GLOBULIN(LOINC) 1.5 - 3.8 G/DL GLOBULIN 2.5 LAB A/G RATIO(LOINC) 0.9 - 1.6 A/G High RATIO 1.9 LAB TOTAL BILI(LOINC) 0.0 - 1.5 mg/dl TOTAL BILI 0.7 LAB B/C RATIO(LOINC) 0 - 30 ratio B/C RATIO 15 LAB ALT/SGPT(LOINC) 10 - 40 U/L ALT/SGPT 23 LAB ANION GAP(LOINC) 10 - 20 mmol/L ANION GAP 13 LAB AGE(LOINC) years AGE 57 LAB eGFR(LOINC) 60 - 999 ML/MINUTE eGFR >60 LAB eGFR(AA)(LOINC) 60 - 999 ML/MINUTE eGFR(AA) >60 Result Comment: ACCORDING TO THE NATIONAL KIDNEY DISEASE EDUCATION PROGRAM(NKDE), A NORMAL eGFR IS A VALUE GREATER THAN OR EQUAL TO 60 ML/MIN/1.73 SQ METERS. CHRONIC KIDNEY DISEASE: <60mL/MIN/1.73 SQ METERS KIDNEY FAILURE: <15mL/MIN/1.73 SQ METERS THIS TEST SHOULD ONLY BE USED FOR PATIENTS 18 YEARS OF AGE AND OLDER. Performed By: #### [id number] #### [facility],[address] [place] [id number] CNCO Observed: 08/20/2017 Status: COMPLETED Source: [place] 12:00 AM [facility] REPOSITORY Letter Text Marisa Gorman MD Department of Vascular Surgery [address] [place] [address] / [place] [id number] Office: [phone] Appointments: [phone] August 20, 2017 Richard Dai MD ([facility]) [address] [place] [address] [place] [address] NAME: Rajendra Hoffman [facility] NO.: [id number] : 1960 DATE OF SERVICE: 07/25/[address] Dai: Your patient, Mr. Hoffman, was seen by me in the office for a follow up visit. The details of his treatment plan are included in my office note, a copy of which is included for your interest and records. I appreciate the opportunity to participate in Mr. Hoffman's evaluation and treatment. If I can provide further information, please do not hesitate to contact me. Sincerely yours, Marisa Gorman MD (Signed electronically to expedite sending) / Enclosure PROGRESS Observed: 07/25/2017 Status: COMPLETED Source: [place] 11:56 AM [facility] REPOSITORY HNO ID: [id number] Author: Marisa Gorman MD Service: (none) Author Type: Physician Type: Progress Notes Filed: 07/25/2017 12:04 PM Note Text: VASCULAR SURGERY ESTABLISHED PATIENT SERVICE DATE: 07/25/2017 SERVICE TIME: 11:57 AM PRIMARY CARE PHYSICIAN: Richard Dai MD SUBJECTIVE HISTORY OF PRESENT ILLNESS: Patient returns for a follow up after 4 weeks s/p SMA stenting and celiac artery angioplasty. He had some SMA origin disease still which was stented at last visit. He now feels completely improved and is eating well without nausea or pain. He is gaining weight subjectively at this time. PAST MEDICAL/SURGICAL/FAMILY/SOCIAL HISTORY PAST MEDICAL HISTORY Diagnosis Date - GERD (gastroesophageal reflux disease) - Mesenteric artery stenosis (HCC) PAST SURGICAL HISTORY Procedure Laterality Date - ADDTL NECK SPINE FUSION - CHOLECYSTECTOMY - EGD W/O OR W/BRUSH/WASH 09/2014 EGD FAMILY HISTORY Problem Relation Age of Onset - Cancer Mother - Cancer Maternal Grandmother SOCIAL HISTORYSocial History Marital status: Spouse name: Years of education: Number of children: Social History Main Topics Smoking status: Current Every Day Smoker Packs/day: 0.50 Years: 23.00 Types: Cigarettes Alcohol use: Yes Comment: very very seldom Drug use: No Comment: [facility] MEDICATIONS/ALLERGIES Current Outpatient Prescriptions: rosuvastatin (CRESTOR) 10 mg tablet Take 1 tablet by mouth daily at bedtime. Disp: 30 tablet Rfl: [address] (PROTONIX) 20 mg tablet Take 1 tablet by mouth once daily. Disp: 30 tablet Rfl: 2 multivitamin tablet Take 1 tablet by mouth daily at bedtime. Disp: Rfl: aspirin 81 mg chewable tablet Take 1 tablet by mouth once daily. Disp: Rfl: 0 clopidogrel (PLAVIX) 75 mg tablet Take 1 tablet by mouth once daily. Disp: Rfl: 0 No current facility-administered medications for this visit. ALLERGIES Allergen Reactions - Omeprazole Other: See Comments Headaches OBJECTIVE BP 117/75 (BP Site: Left Arm, BP Position: Supine, BP Cuff Size: Regular Adult) Pulse 117 Temp 36 ?C (96.8 ?F) (Oral) Wt 52.8 kg (116 lb 6.5 oz) BMI 16.7 kg/m2 PHYSICAL EXAMINATION: General appearance: Well appearing, alert, in no acute distress, well-hydrated, well nourished. Skin: Skin color, texture, turgor normal, no suspicious rashes or lesions Lungs: non labored respirations Heart: RRR Abdomen: Normal abdominal exam, Abdomen soft, non-tender. Bowel sounds normal. No masses, organomegaly Extremities: No deformities, edema, skin discoloration, clubbing or cyanosis. Good capillary refill. Musculoskeletal: No joint swelling, deformity Peripheral pulses: Normal Neuro: Gait normal. Sensation grossly intact. ASSESSMENT 57 yo female s/p mesenteric artery stenting, doing well and feels normal again. PLAN/RECOMMENDATIONS Follow up in 6 months with mesenteric duplex ultrasound. SIGNATURE: Marisa Gorman MD, MD PATIENT NAME: Rajendra Hoffman DATE: July 25, 2017 TIME: 11:57 AM ALLERGIES ALLERGIES DATE TYPE / CODE NAME / CODE REACTION SEVERITY SOURCE 06/08/2018 Drug No Known Unknown [place] Allergy/[id number](S Allergies/F0019 [facility]) [address]10(RXNORM) Hospital Repository 05/26/2015 DRUG OMEPRAZOLE OTHER: SEE C Peña INGREDI/[id number](S Clinic Main NOMED CT) [place] Repository Drug OMEPRAZOLE/0000 Moderate Uriah Pomerene Allergy/934908021(S 0913(RXNORM) (Severity [facility] NOMED CT) Modifier) Hospital (Qualifier Repository Value) Miscellaneous No Known Moderate Uriah Pomerene Allergy/327496373(S Allergies ([facility]) Modifier) Hospital (Qualifier Repository Value) ENCOUNTERS ENCOUNTERS ADMIT/DISCHARGE ACCOUNT ADMITTING ENCOUNTER LOCATION SOURCE NUMBER CLASS 07/10/2018/07/10/[id number] Repository 07/10/2018/07/10/[id number] Repository 07/10/2018/07/13/[id number] Repository 07/10/2018/07/13/19 [id number] Ambulatory [address] Repository 07/10/2018/07/14/[id number] Repository 06/08/2018/06/08/20 [id number] Emergency [address] ing:ED Repository 06/07/2018/06/07/20 [id number] MAI, Emergency [address] [place] [address] 18 BELKIS singhom: ERBed: F [facility] Repository 04/30/2018/04/30/20 [id number] MAI, Emergency [address] [place] [address] 18 BELKIS singhom: ERBed: A [facility] Repository 04/14/2018/04/14/20 [id number] RICHARD DAI [address] Repository 04/14/2018 [id number] RICHARD DAI [facility] Repository 04/13/2018/04/13/20 [id number] RICHARD DAI [address] Repository 03/03/2018/03/03/[id number] Repository 02/20/2018/02/25/20 [id number] Ambulatory [address] Repository 01/14/2018/01/20/20 [id number] Ambulatory [address] Repository 01/14/2018/01/15/20 [id number] Ambulatory [address] Repository 10/09/2017/10/10/19 [id number] BRAULIO RICHARD [facility] [address] [place] [address] Repository 07/25/2017/07/28/19 [id number] Ambulatory [address] Repository 07/25/2017/07/25/19 [id number] Ambulatory [address] Repository PAYERS PAYERS ENCOUNTER GUARANTOR PAYER SUBSCRIBER SOURCE 06/08/2018 RAJENDRA BAZAN Primary RAJENDRA Tate [address] Insurance:AULTCAREPoli MULLENDOB: [facility] [address], Number: [id number] [address]Jlh: [id number] Repository Date:2152-43-51RA BOX () [address] [place] [id number]: 06/08/2018 Secondary NOT GIVENUNK [place] Insurance:SELF PAY [facility] Number: Effective Repository Date:2018-06-08 06/07/2018 RAJENDRA Paredes Primary RAJENDRA Arriaga MULLENDOB: Insurance:AULTCARE MULLENDOB: [facility] [id number] [id number] [facility] [address] TWP Number: [address] [id number] [address] [place] [address] [place], Date:Plan Name:A2 [id number] [place] [id number]: () 04/30/2018 RAJENDRA Paredes Primary RAJENDRA HOFFMANDOB: Insurance:AULTCARE MULLENDOB: [facility] [id number] [facility] [id number] [facility] [address] TWP Number: [address] [place] [id number] [address] [place] [address] [place], Date:Plan Name:A2 [id number] [place] [id number]: (HP) 04/14/2018 RAJENDRA Paredes Primary RAJENDRA Arriaga MULLENDOB: Insurance:AULTCAREPoli MULLENDOB: [facility] [id number] cy Number: [id number]. Hospital [address] TWP [id number] [address] Date:7640-30-97Sxis [place], Name:[place] [id number] [place] [id number]: (HP) 04/14/2018 RAJENDRA N Primary RAJENDRA Arriaga MULLENDOB: Insurance:AULTCARE MULLENDOB: [facility] [id number] OUTPATIENTPolicy [id number] Hospital [address] TWP Number: [address] [id number] [address] [place] [address], Date:Plan Name:A2 [id number] [place] [id number]: () 04/13/2018 RAJENDRA N Primary RAJENDRA Arriaga MULLENDOB: Insurance:AULTCARE MULLENDOB: [facility] [id number] OUTPATIENTPolicy [id number] Hospital [address] TWP Number: [address] [id number] [address] [place] [address] [place], Date:Plan Name:A2 [id number] [place] [id number]: () 10/09/2017 RAJENDRA N Primary RAJENDRA Arriaga MULLENDOB: Insurance:AULTCAREPoli MULLENDOB: [facility] [id number] cy Number: [id number] Hospital [address] T[address] [id number] [address] [place] [address] Date:7994-13-41Nbof [address] [place] [address], [place], Name:[place] [id number] [place] [id number]: (HP)
== END 2018-06-08 13:10 | disposition home or self-care (01) ==
PROVIDERS: Emergency Provider Emergency Medicine; Family Provider Family Medicine; PCP Family Medicine
DX: R10.9 Unspecified abdominal pain (principal); R19.7 Diarrhea, unspecified; R11.0 Nausea; Z72.0 Tobacco use; Z79.02 Long term (current) use of antithrombotics/antiplatelets; Z79.891 Long term (current) use of opiate analgesic; Z79.899 Other long term (current) drug therapy
CPT/HCPCS: 74175; 80053; 83605; 83690; 85025; 96361; 96374; 96375; 96376; 99283; J7030; Q9967; A4216; J2405

== ENCOUNTER 2018-08-18 19:41 | Emergency (ER) | payer OTHER, SELFPAY ==
[2018-08-18 19:41] VITALS: BP 135/105; PULSE 98; RESP 18; TEMP 37.9; O2SAT 97; BMI 15.7
[2018-08-18 20:01] VITALS: BP 96/55; PULSE 106; PULSE 113; RESP 13; RESP 16; TEMP 37.9; O2SAT 96; O2SAT 97
--- NOTE | 2018-08-18 20:10 | CT_ITS ---
STUDY: CTA OF THE ABDOMINAL AORTA AND PELVIS REASON FOR EXAM: Male, 58 years old. Bilateral flank pain, postop SMA and celiac stents 2 weeks ago TECHNIQUE: Axial CT angiography multi-detector data acquisition was obtained from the lung bases to the pubic symphysis following intravenous administration of 100ML ml of Isovue 370 contrast. Axial images and MIP images were reconstructed from the axial data set. Post-processing of the angiographic images was performed, with multiplanar reformation and 3D reconstruction. TECHNICAL QUALITY: Good COMPARISON: June 08, 2018. Descriptors of Narrowing: None (0%) Mild (< 50%) Moderate (50-70%) Severe (70-90%) Subtotal/Total Occlusion (90-100%) Non-Evaluable (technically non-diagnostic) FINDINGS: Abdominal aorta: Mild atherosclerotic calcifications with no hemodynamically significant narrowing. Possible stable distal aortic focal dissection. Celiac and superior mesenteric arteries: Patent stents are noted. Mild luminal narrowing of the celiac artery just distal to the stent similar to the previous study. Inferior mesenteric artery: Focal moderate narrowing near the origin. Right renal artery(arteries): No demonstrated narrowing. Left renal artery(arteries): No demonstrated narrowing. Right common iliac artery: Mild atherosclerotic calcifications with no hemodynamically significant narrowing. Right external iliac artery: Mild atherosclerotic calcifications with no hemodynamically significant narrowing. Right internal iliac artery: Mild atherosclerotic calcifications with approximately 50% luminal narrowing. Left common iliac artery: Mild atherosclerotic calcifications with no hemodynamically significant narrowing. Left external iliac artery: Mild atherosclerotic calcifications with no hemodynamically significant narrowing. Left internal iliac artery: Mild atherosclerotic calcifications with approximately 50% luminal narrowing. Right common femoral artery: No demonstrated narrowing. Left common femoral artery: Mild atherosclerotic calcifications with no hemodynamically significant narrowing. CT/CT ANGIO ABD&PEL W/O&W/DYE IMPRESSION: Stable abdominal aorta and major abdominal and pelvic branches similar to previous study. Patent stents of the celiac and superior mesenteric arteries. Electronically Signed: Rogers Sierra DO at 21:42 EST Tel [phone], Service support ,
--- NOTE | 2018-08-18 20:12 | EKG12_ITS ---
Test Reason : FLANK PAIN Blood Pressure : / mmHG Vent. Rate : 097 BPM Atrial Rate : 097 BPM P-R Int : 128 ms QRS Dur : 072 ms QT Int : 330 ms P-R-T Axes : 081 087 085 degrees QTc Int : 419 ms Normal sinus rhythm Normal ECG Confirmed by OSCAR RODAS, REGGIE ([id number]), brands editor KATIANA GARIBAY ([id number]) on 08/20/2018 3:54:14 PM Referred By: YONATHAN Confirmed By:REGGIE MOORE MD
[2018-08-18] MEDS: 0.9% Normal Saline 1,000 ML 1000 ML IV (20:27)
[2018-08-18] MEDS: HYDROmorphone 1 MG/ML Syringe IV ×2 (20:27→21:19)
[2018-08-18] MEDS: Ondansetron 4 MG/2 ML Vial IV (20:27)
[2018-08-18 20:42] LABS: Absolute Lymphocyte Count 1.14 X10^3/ul (0.83-4.51); Absolute Neutrophil Count 7.1 X10^3/uL (2.0-7.7); Basophil# 0.03 X10^3/uL; Basophil% 0.3 % (0-1); Eosinophil# 0.03 X10^3/uL; Eosinophils% 0.3 % (0-5); Hematocrit 42.5 % (40-54); Hemoglobin 14.7 g/dl (13.0-16.5); Lymphocyte # 1.14 X10^3/ul (4.0); Lymphocyte % 12.6 % (19-41); Mean Corp Hgb Conc 34.6 g/gl (32-36); Mean Corpuscular Hgb 31.3 pg (27.0-32.0); Mean Corpuscular Volume 90.4 fL (80-94); Mean Platelet Vol. 12.4 fl (6.2-12.0); Monocyte# 0.78 X10^3/uL; Monocyte% 8.6 % (0-10); Neutrophil # 7.05 X10^3/uL (2.7-7.7); Neutrophil % 78.1 % (47-70); POSITIVE COUNT NO; POSITIVE DIFFERENTIAL NO; POSITIVE MORPHOLOGY NO; Platelet Count 173 K/mm3 (150-450); RBC Distribution Width CV 13.7 % (11.6-14.6); RBC Distribution Width SD 45.6 fl (35.1-43.9)
[2018-08-18 20:46] LABS: International Normalized Ratio 1.1; Partial Thromboplast Time 35.7 Seconds (24.1-36.2); Prothrombin Time (Protime)PT. 14.1 SECONDS (11.7-14.9)
[2018-08-18 20:51] LABS: Anion Gap 12 (5-15); BUN 11 mg/dL (7-18); BUN/Creat Ratio 9.5 RATIO (10-20); Calcium,Total 9.2 mg/dL (8.5-10.1); Chloride 104 mmol/L (98-107); Creatinine, Serum 1.16 mg/dL (0.70-1.30); EST Glomerular Filtration Rate 69 mL/min (>60); Est Glom Filt Rate - Afr Amer 83 mL/min (>60); Estimated Creatinine Clearance 49.58 ml/min; Glucose 91 mg/dL (74-106); Potassium 4.6 mmol/L (3.5-5.1); Sodium Level 135 mmol/L (136-145)
[2018-08-18 21:03] LABS: Lactic Acid 1.6 mmol/L (0.4-2.0)
[2018-08-18 21:13] VITALS: PULSE 104; RESP 21; O2SAT 98
[2018-08-18 21:20] VITALS: BP 144/106; PULSE 99; RESP 18; TEMP 37.4; O2SAT 99
[2018-08-18 22:20] VITALS: BP 102/70; PULSE 85; RESP 16; TEMP 37.2; O2SAT 97; O2SAT 98
[2018-08-18 22:35] LABS: Bacteria 0 SEEN /hpf (None Seen); Mucous, Urine 0 SEEN /hpf (<or=2+); Red Blood Cells-Urine 0 SEEN /hpf (0-5); Squamous Epithelial Cells - UA 0 SEEN /hpf (0-5); White Blood Cells 0 SEEN /hpf (0-5)
[2018-08-18 22:59] LABS: Color, Urine Yellow (Yellow); Glucose, Dipstick Normal (Normal); Ketone-Dipstick 15 mg/dl (Negative); Leukocyte Esterase-Dipstick Negative /ul (Negative); Nitrite-Dipstick Negative (Negative); Occult Blood-Urine Negative /ul (Negative); Protein-Dipstick Negative (Negative); Urine Bilirubin Dipstick Negative (Negative); Urine Clarity Clear (Clear); Urine Urobilinogen Normal (Normal)
[2018-08-18 23:17] LABS: Amphetamine Urine VISTA NEGATIVE (<1000 ng/mL); Barbiturate Urine VISTA NEGATIVE (< 200 ng/mL); Benzodiazepine Urine VISTA NEGATIVE (< 200 ng/mL); Cocaine Urine VISTA NEGATIVE (< 300 ng/mL); Ecstacy Urine VISTA NEGATIVE (< 500 ng/mL); Methadone Urine VISTA NEGATIVE (< 300 ng/mL); PCP Urine VISTA NEGATIVE (< 25 ng/mL); THC Urine VISTA POSITIVE (< 50 ng/mL); Vista UDS pH Range 7
--- NOTE | 2018-08-19 00:06 | ED.DCSUM_ITS ---
- ER Visit Summary Date of Service: 08/19/18 Chief Complaint: Severe acute abdominal pain per my history. Triage documents by lateral flank pain. History of Present Illness: The patient is a 58 M who has known history of atherosclerosis. He states he had a stent placed inside of a stent in his SMA recently. He has a stent in his celiac artery. He presents with acute abdominal pain with nausea. He denies fever or chills. He did report diaphoresis. He denies visual, ocular auditory symptoms. He denies chest pain, palpitations, orthopnea PND. He denies dyspnea, cough or difficulty breathing. He does report abdominal pain with nausea without any other GI symptoms. He denies urologic symptoms. He denies history of renal ureterolithiasis. He denies rash or trauma. He is on Plavix. He reports compliance with his medication. Physical Examination: Patient appears uncomfortable. Vital signs reveal slight elevation blood pressure 135/105. Temperature 100.2?F. Vitals otherwise normal. HEENT exam is unremarkable with moist mucosa. Insert cardiopulmonary exam abdomen is flat with tenderness difficult to examine because he moves around. No abdominal bruit noted. No CVA tenderness noted. Well-healed surgical scar noted midline between the xiphoid and umbilicus. There is no CVA tenderness. Femoral pulses are palpable. There is no evidence of ischemia to the lower extremities. Test Results: White count is normal with 70% segs no bands 4% lymphs. Basic mental panel reveals a CO2 of 19 with an anion gap of 12. Coags normal. Urine is positive for ketones only. Lactate is normal at 1.6. Tox screen is positive for cannabis and opiates. Emergency Department Course and Treatment: Appropriate blood work was ordered and he was ordered Dilaudid. Nurse informed me that he was told that morphine does not work only Dilaudid works . In light of patient's past medical history obvious atherosclerotic disease he was given Dilaudid and benefit of the doubt. A CTA of the abdomen was obtained. UA was obtained to evaluate for blood and specifically because of concern for infection with temperature 100.2 and or nephrolithiasis/ureterolithiasis. Treatment Plan: Patient received 2 dose of Dilaudid. He did not receive any more in spite of him complaining of pain. CTA of the abdomen and pelvis reveals patent vessels and specifically the SMA and celiac artery. There was no comment made of the intra-abdominal organs. Review of the CAT scan by me reveals no hepatic lesions. Spleen appears normal. There is no evidence of pneumoperitoneum. Both kidneys are visualized and appear normal with no evidence of hydronephrosis or hydroureter. There is no ossific gas pattern noted. There is no inflammatory changes noted. Disposition: Patient will be until the cause of his pain is unknown. He was recommended to follow-up with his primary care physician. Impression: Abdominal pain of unknown etiology, generalized Temperature 100.2 uncertain cause 3. Ketosis 4. History of tobacco use, continued This note was generated with [employer] dictation software. It may contain incorrect words, spelling, and punctuation that were not noted in review of the chart prior to signing ED Disposition - Plan for ED Patient: Disposition: Home or Assisted Living Instructions: ED Abdominal Pain Unkn Cause Male, ED Flank Pain Uncertain Cause Referrals: Richard Dai [Primary Care Provider] - 1-2 Days if not improving
[2018-08-19 00:18] VITALS: BP 99/68; PULSE 96; RESP 17; O2SAT 98
== END 2018-08-19 00:19 | disposition home or self-care (01) ==
PROVIDERS: Emergency Provider Emergency Medicine; Family Provider Family Medicine; PCP Family Medicine
DX: R10.84 Generalized abdominal pain (principal); R50.9 Fever, unspecified; E88.89 Other specified metabolic disorders; R03.0 Elevated blood-pressure reading, without diagnosis of hypertension; R11.0 Nausea; K58.9 Irritable bowel syndrome, unspecified; Z79.02 Long term (current) use of antithrombotics/antiplatelets; Z79.82 Long term (current) use of aspirin; Z79.899 Other long term (current) drug therapy; Z87.891 Personal history of nicotine dependence; Z95.5 Presence of coronary angioplasty implant and graft
CPT/HCPCS: 74174; 80048; 80307; 81001; 83605; 85025; 85610; 85730; 87040; 93005; 96361; 96374; 96375; 96376; 99284; J7030; Q9967; A4216; J2405

== ENCOUNTER 2021-06-22 11:59 | Emergency (ER) | payer OTHER, SELFPAY ==
[2021-06-22 11:59] VITALS: BP 113/98; PULSE 110; RESP 20; TEMP 37.2; O2SAT 98; BMI 18.6
--- NOTE | 2021-06-22 12:29 | EDS_ITS ---
HPI HPI - GI History of Present Illness Chief Complaint: Abd Pain Narrative Narrative: 61-year-old male presenting with diffuse generalized abdominal pain. He states that this has been going on for about 2 days. He feels nauseous but is not vomiting. He states he has not had a bowel movement today but had 2 normal bowel movements yesterday. No black or bloody stools. Patient has history of cholecystectomy. He also has history of stents in the superior me senteric artery as well as the celiac artery. Patient reports history of peptic ulcer disease as well. PFSH PFSH Home Medications clopidogrel 75 mg PO DAILY 09/23/16 [History Last Taken 09/23/16 08:00] pantoprazole 20 mg PO DAILY 06/26/17 [History Last Taken Unknown] oxycodone-acetaminophen 1 - 2 tab PO Q6H PRN PRN 06/08/18 [History Last Taken Unknown] rosuvastatin 10 mg PO QHS 06/08/18 [History Last Taken Unknown] aspirin 81 mg PO DAILY 08/18/18 [History Last Taken Unknown] Allergy/AdvReac Type Severity Reaction Status Date / Time No Known Allergies Allergy Verified 06/22/21 12:02 Social History Smoking Status: Current every day smoker tobacco type: cigarettes ROS ROS ED Constitutional Constitutional ED: Denies chills or fever(s) ENT ENT ED: Denies rhinorrhea or sore throat Cardiovascular Cardiovascular: Denies chest pain or palpitations Respiratory/Chest Respiratory/Chest: Denies cough or dyspnea Gastrointestinal Gastrointestinal: Reports abdominal pain and nausea; Denies constipation or vomiting Genitourinary Genitourinary ED: Denies dysuria or hematuria Musculoskeletal Musculoskeletal: Denies arthralgias or myalgias Integumentary Denies rash Neurologic Neurologic: Denies headache(s) or paresthesias Psychiatric Psychiatric: Denies anxiety or depression EXAM Physical Exam Const Vital Signs: 06/22/21 11:59 06/22/21 14:41 06/22/21 17:06 Temperature 99.0 F Temperature Source Temporal Pulse Rate 110 H 78 89 Respiratory Rate 20 H 18 18 Blood Pressure 113/98 H 101/61 111/86 H Blood Pressure Mean 103 74 Pulse Ox 98 100 99 Oxygen Delivery Method Room Air Room Air Positive well nourished General Appearance ED: NAD; Negative for pallor HEENT normocephalic and atraumatic Eyes PERRL and EOMs intact bilaterally General Eye ED: Negative for pale conjunctiva or scleral icterus Neck no lymphadenopathy and supple Resp normal respiratory effort and clear to auscultation bilaterally Cardio regular rate and regular rhythm GI GI Narrative: Generalized tenderness. Abdomen nonperitoneal Palpation: soft Back/Spine no CVA tenderness Neuro Sensorium / Orientation: alert and oriented to person Psych mental status grossly normal and thought process normal Skin General Skin Exam: Negative for jaundice or pallor MDM MDM MDM Narrative Medical decision making narrative: Obtain lab work and his CBC, CMP are normal with exception of an alkaline phosphatase of 128. Urinalysis shows ketones but no sign of infection. Patient given morphine and Zofran while obtaining a CT of the abdomen due to his previous stents in the CT of the process of these are patent. There is no identified acute intra-abdominal pathology such as bowel obstruction or signs of colitis. Patient requested another dose of pain medication and was given Dilaudid. This did help to improve. Given his negative work-up I feel he safe to be discharged home. I will give him follow-up with Dr. Medina due to his abdominal pain. He was amenable to this. Patient discharged home in stable condition. Impression: 1. Abdominal pain unknown cause male Lab Data Attestation: I reviewed the patient's lab results. Labs: Laboratory Results - last 24 hr 06/22/21 06/22/21 06/22/21 13:16 13:16 14:21 WBC 10.7 RBC 5.52 Hgb 16.7 H Hct 47.5 MCV 86.1 MCH 30.3 MCHC 35.2 RDW Std Deviation 41.4 RDW Coeff of Rashida 13.2 Plt Count 187 MPV 12.1 H Immature Gran % (Auto) 0.500 Neut % (Auto) 73.4 H Lymph % (Auto) 15.1 L [place] % (Auto) 9.6 Eos % (Auto) 0.7 Baso % (Auto) 0.7 Absolute Neuts (auto) 7.9 H Absolute Lymphs (auto) 1.61 Nucleated RBC % 0 Sodium 136 Potassium 4.0 Chloride 106 Carbon Dioxide 21.0 Anion Gap 9 BUN 17 Creatinine 1.27 Estim Creat Clear Calc 51.59 Est GFR (MDRD) Af Amer 74 Est GFR (MDRD) Non-Af 61 BUN/Creatinine Ratio 13.4 Glucose 75 Calcium 9.3 Total Bilirubin 0.60 AST 19 ALT 22 Alkaline Phosphatase 128 H Total Protein 7.3 Albumin 3.8 Globulin 3.5 Albumin/Globulin Ratio 1.1 Lipase 97 Urine Color Yellow Urine Clarity Clear Urine pH 6.5 Ur Specific [place] 1.010 Urine Protein Negative Urine Glucose (UA) Normal Urine Ketones 50 H Urine Occult Blood Negative Urine Nitrite Negative Urine Bilirubin Negative Urine Urobilinogen Normal Ur Leukocyte Esterase Negative Urine RBC 0 SEEN Urine WBC 0 SEEN Ur Squamous Epith Cells 0-5 SEEN Urine Bacteria 0 SEEN Urine Mucus RARE Radiography Diagnostic Testing: Clinical Impression(s) from Imaging Studies Abdomen CTA 06/22/21 12:32 IMPRESSION: Celiac axis and superior mesenteric artery stents are patent, stable since prior study. No bowel wall thickening or obstruction. Electronically Signed: Noé Antoine MD ([place]) at 14:02 EST , Service support , Discharge Plan Triage Chief Complaint: Abd Pain ED Provider: Rogelio Wells Dx/Rx/DC Orders Instructions: ED Abdominal Pain Unkn Cause Male... Prescriptions: No Action clopidogrel 75 MG tablet 75 mg PO DAILY RF: 0 pantoprazole 20 MG Tablet.Dr 20 mg PO DAILY RF: 0 oxycodone-acetaminophen 1 TABLET tablet 1 - 2 tab PO Q6H PRN PRN (Reason: Pain) RF: 0 rosuvastatin 10 MG tablet 10 mg PO QHS RF: 0 aspirin 81 MG Tab.Chew 81 mg PO DAILY RF: 0 Primary Care Provider: Richard Dai Referrals: FriendKory DO [STAFF PHYSICIAN] - As soon as possible Richard Dai MD [Primary Care Provider] - Disposition Disposition: Home, Self Care Discharge Date/Time: 06/22/21 17:24
--- NOTE | 2021-06-22 12:32 | CT_ITS ---
EXAM: CT ANGIOGRAPHY ABDOMEN WITHOUT AND WITH INTRAVENOUS CONTRAST CLINICAL INDICATION: abdominal pain TECHNIQUE: Helically acquired angiography images of the abdomen without and with intravenous contrast. This CT exam was performed using one or more of the following dose reduction techniques: automated exposure control, adjustment of the mA and/or kV according to patient size, and/or use of iterative reconstruction technique. This report was created using Gravie report generation technology. 3D and MIP reconstructed images were created and reviewed. Coronal and sagittal reformatted images were created and reviewed. CONTRAST: IV 100mL Isovue-370 COMPARISON: 08/18/2018. FINDINGS: AORTA: Atherosclerosis of the lower infrarenal abdominal aorta but no evidence of aneurysm. No dissection. CELIAC TRUNK AND MESENTERIC ARTERIES: Celiac axis and superior mesenteric artery stents are patent, stable since prior study. No occlusion or significant stenosis. No dissection. RENAL ARTERIES: No acute findings. No occlusion or significant stenosis. No dissection. ILIAC ARTERIES: Atherosclerosis of the bilateral common iliac arteries without hemodynamically significant stenosis. LOWER THORAX: Unremarkable. Lung bases are clear. No cardiomegaly. No significant pericardial effusion. LIVER: Unremarkable. Homogeneous. No focal mass. GALLBLADDER AND BILE DUCTS: Cholecystectomy. No intra- or extrahepatic biliary ductal dilation. PANCREAS: Unremarkable. No focal cystic or solid mass. SPLEEN: Heterogeneous enhancement of the spleen likely due to phase of imaging, no associated discrete mass. ADRENALS: Unremarkable. No nodules. KIDNEYS AND URETERS: Unremarkable. Normal renal size and position. No hydronephrosis. STOMACH AND BOWEL: Incompletely visualized in the pelvis. Unremarkable. No stomach or bowel distention. No focal inflammatory change. INTRAPERITONEAL SPACE: Unremarkable. No ascites or other fluid collection. No free air. BONES/JOINTS: Unremarkable. No suspicious lytic or blastic abnormality. SOFT TISSUES: Unremarkable. No discrete abdominal or pelvic wall hernia. LYMPH NODES: No enlarged lymph nodes. CT/CTA Abdomen W/WO Contrast IMPRESSION: Celiac axis and superior mesenteric artery stents are patent, stable since prior study. No bowel wall thickening or obstruction. Electronically Signed: Noé Antoine MD ([place]) at 14:02 EST , Service support ,
[2021-06-22] MEDS: 0.9% Normal Saline 1,000 ML 1000 ML IV (12:55)
[2021-06-22] MEDS: Morphine 4 MG/ML Syringe IV ×2 (12:56→17:03)
[2021-06-22] MEDS: Ondansetron 4 MG/2 ML Vial IV (12:56)
[2021-06-22 13:24] LABS: Absolute Lymphocyte Count 1.61 X10^3/uL (0.83-4.51); Absolute Neutrophil Count 7.9 X10^3/uL (2.0-7.7); Basophil# 0.07 X10^3/uL; Basophil% 0.7 % (0-1); Eosinophil# 0.08 X10^3/uL; Eosinophils% 0.7 % (0-5); Hematocrit 47.5 % (40-54); Hemoglobin 16.7 g/dL (13.0-16.5); Lymphocyte # 1.61 X10^3/ul (0.83-4.51); Lymphocyte % 15.1 % (19-41); Mean Corp Hgb Conc 35.2 g/dL (32-36); Mean Corpuscular Hgb 30.3 pg (27.0-32.0); Mean Corpuscular Volume 86.1 fL (80-94); Mean Platelet Vol. 12.1 fl (6.2-12.0); Monocyte# 1.03 X10^3/uL; Monocyte% 9.6 % (0-10); NRBC Flagged by Analyzer 0 % (0-5); Neutrophil # 7.85 X10^3/uL (2.7-7.7); Neutrophil % 73.4 % (47-70); Platelet Count 187 K/mm3 (150-450); RBC Distribution Width CV 13.2 % (11.6-14.6); RBC Distribution Width SD 41.4 fl (35.1-43.9); Red Blood Count 5.52 M/mm3 (4.6-6.2); White Blood Count 10.7 K/mm3 (4.4-11.0)
[2021-06-22 13:40] LABS: ALB/GLOB Ratio 1.1 RATIO (0.9-2.4); AST(SGOT) 19 U/L (15-37); Alanine Aminotransfer ALT/SGPT 22 U/L (16-61); Albumin, Serum 3.8 g/dL (3.2-5.0); Alkaline Phosphatase 128 U/L (45-117); Anion Gap 9 (5-15); BUN 17 mg/dL (7-18); BUN/Creat Ratio 13.4 RATIO (10-20); Calcium,Total 9.3 mg/dL (8.5-10.1); Chloride 106 mmol/L (98-107); Creatinine, Serum 1.27 mg/dL (0.70-1.30); EST Glomerular Filtration Rate 61 mL/min (>60); Est Glom Filt Rate - Afr Amer 74 mL/min (>60); Estimated Creatinine Clearance 51.59 ml/min; Globulin 3.5 g/dL (2.2-4.2); Glucose 75 mg/dL (74-106); Lipase 97 U/L (73-393); Protein, Total 7.3 g/dL (6.4-8.2); Sodium Level 136 mmol/L (136-145)
[2021-06-22 14:41] VITALS: BP 101/61; PULSE 78; RESP 18; O2SAT 100
[2021-06-22 14:43] LABS: Bacteria 0 SEEN /hpf (None Seen); Red Blood Cells-Urine 0 SEEN /hpf (0-5); White Blood Cells 0 SEEN /hpf (0-5)
[2021-06-22 14:52] LABS: Color, Urine Yellow (Yellow); Glucose, Dipstick Normal (Normal); Ketone-Dipstick 50 mg/dl (Negative); Leukocyte Esterase-Dipstick Negative /ul (Negative); Nitrite-Dipstick Negative (Negative); Occult Blood-Urine Negative /ul (Negative); Protein-Dipstick Negative (Negative); Urine Bilirubin Dipstick Negative (Negative); Urine Clarity Clear (Clear); Urine Urobilinogen Normal (Normal); Urine pH 6.5 (5.0 - 8.0)
[2021-06-22 14:58] LABS: Mucous, Urine RARE /hpf (<or=2+); Squamous Epithelial Cells - UA 0-5 SEEN /hpf (0-5)
[2021-06-22 17:06] VITALS: BP 111/86; PULSE 89; RESP 18; O2SAT 99
== END 2021-06-22 17:24 | disposition home or self-care (01) ==
PROVIDERS: Emergency Provider Student in an Organized Health Care Education/Training Program; PCP Family Medicine
DX: R10.84 Generalized abdominal pain (principal); F17.210 Nicotine dependence, cigarettes, uncomplicated; Z90.49 Acquired absence of other specified parts of digestive tract; Z79.02 Long term (current) use of antithrombotics/antiplatelets; Z79.82 Long term (current) use of aspirin
CPT/HCPCS: 74175; 80053; 81001; 83690; 85025; 96361; 96374; 96375; 96376; 99285; J7030; Q9967; A4216; J2405

== ENCOUNTER 2021-08-25 09:33 | Outpatient (CLI) | payer OTHER, SELFPAY ==
[2021-08-25 10:14] LABS: Erythrocyte Sedimentation Rate 5 mm/hr (0-20)
[2021-08-25 10:16] LABS: Absolute Lymphocyte Count 1.77 X10^3/uL (0.83-4.51); Absolute Neutrophil Count 6.6 X10^3/uL (2.0-7.7); Basophil# 0.07 X10^3/uL; Basophil% 0.7 % (0-1); Eosinophil# 0.09 X10^3/uL; Hematocrit 47.4 % (40-54); Hemoglobin 16.7 g/dL (13.0-16.5); Lymphocyte # 1.77 X10^3/ul (0.83-4.51); Lymphocyte % 18.8 % (19-41); Mean Corp Hgb Conc 35.2 g/dL (32-36); Mean Corpuscular Hgb 31.3 pg (27.0-32.0); Mean Corpuscular Volume 88.9 fL (80-94); Mean Platelet Vol. 12.6 fl (6.2-12.0); Monocyte# 0.84 X10^3/uL; Monocyte% 8.9 % (0-10); NRBC Flagged by Analyzer 0 % (0-5); Neutrophil % 70.2 % (47-70); POSITIVE MORPHOLOGY YES; Platelet Count 196 K/mm3 (150-450); RBC Distribution Width CV 13.7 % (11.6-14.6); RBC Distribution Width SD 45.1 fl (35.1-43.9); Red Blood Count 5.33 M/mm3 (4.6-6.2); White Blood Count 9.4 K/mm3 (4.4-11.0)
[2021-08-25 10:21] LABS: Differential Indicated SCAN CRITERIA MET
[2021-08-25 10:34] LABS: Differential Comment SCANNED
[2021-08-25 10:35] LABS: ALB/GLOB Ratio 1.1 RATIO (0.9-2.4); AST(SGOT) 19 U/L (15-37); Alanine Aminotransfer ALT/SGPT 21 U/L (16-61); Albumin, Serum 3.9 g/dL (3.2-5.0); Alkaline Phosphatase 133 U/L (45-117); Anion Gap 6 (5-15); BUN 14 mg/dL (7-18); BUN/Creat Ratio 11.9 RATIO (10-20); CRP < 2.90 mg/L (0.0-3.0); Chloride 104 mmol/L (98-107); Creatinine, Serum 1.18 mg/dL (0.70-1.30); EST Glomerular Filtration Rate 67 mL/min (>60); Est Glom Filt Rate - Afr Amer 81 mL/min (>60); Globulin 3.6 g/dL (2.2-4.2); Glucose 116 mg/dL (74-106); LDH 170 U/L (87-241); Potassium 3.7 mmol/L (3.5-5.1); Protein, Total 7.5 g/dL (6.4-8.2); Sodium Level 138 mmol/L (136-145)
[2021-08-27 17:07] LABS: Anti-Centromere B Ab <0.2 AI (0.0-0.9); Anti-Chromatin <0.2 AI (0.0-0.9); Anti-Jo <0.2 AI (0.0-0.9); Anti-Scleroderma-70 AB <0.2 AI (0.0-0.9); RNP Ab <0.2 AI (0.0-0.9); SJOGREN'S Anti-SS-A test < 0.2 AI (0.0-0.9); SJOGREN'S Anti-SS-B test < 0.2 AI (0.0-0.9); Smith Ab <0.2 AI (0.0-0.9)
[2021-08-27 19:00] LABS: Anti-dsDNA Ab <1 IU/mL (0-9)
[2021-08-29 18:30] LABS: Calprotectin, Stool 51 ug/g (0-120); Fats, Neutral Normal (.); Fats, Total Normal (.)
[2021-08-30 17:07] LABS: Albumin 3.7 g/dL (2.9-4.4); Alpha-1-Globulins 0.3 g/dL (0.0-0.4); Alpha-2-Globulins 0.8 g/dL (0.4-1.0); Cytoplasmic Ab (C-ANCA) <1:20 titer (Neg:<1:20); Endomysial Antibody IgA Negative (Negative); Gamma Globulin 0.9 g/dL (0.4-1.8); Immunoglobulin A 158 mg/dL (90-386); Immunoglobulin G 833 mg/dL (603-1613); Immunoglobulin M 83 mg/dL (20-172); PROEL- TOTAL PROTEIN 6.8 g/dL (6.0-8.5)
[2021-08-30 18:20] LABS: Immunoglobulin E 25 IU/mL (6-495); Perinuclear Ab (P-ANCA) <1:20 titer (Neg:<1:20); t-Transglutaminase IgA <2 U/mL (0-3)
== END 2021-08-25 23:59 | disposition home or self-care (01) ==
PROVIDERS: PCP Family Medicine; Referring Provider Internal Medicine Gastroenterology; Visit Provider Internal Medicine Gastroenterology
DX: K58.0 Irritable bowel syndrome with diarrhea (principal)
CPT/HCPCS: 80053; 82705; 82784; 82785; 83516; 83615; 83630; 83993; 84165; 85025; 85652; 86140; 86225; 86235; 86255; 86256; 86334; 87177; 87209; 87329; 87493; 87506

== ENCOUNTER 2021-08-27 10:14 | Emergency (ER) | payer OTHER, SELFPAY ==
[2021-08-27 10:16] VITALS: BP 116/92; PULSE 82; RESP 14; TEMP 36.2; O2SAT 100; BMI 17.6
--- NOTE | 2021-08-27 11:01 | EDS_ITS ---
HPI History of Present Illness Chief Complaint: Other, Pain/Inj Informant: patient Narrative Narrative: Patient is a 61-year-old male presenting with left-sided neck pain. Patient is a history of prior fusion in his lower neck and chronic neck pain. He had radiofrequency ablation on 08/[address] Noble, pain management. He notes 6 days after the procedure he started having increased pain. He spoke with his pain management doctor on the phone who prescribed him baclofen. Patient states he ran out of it last night but the pain has not improved. He is not taking anything like ibuprofen or Tylenol for his pain. He is not on anything else for pain. He has chronic intermittent tingling of his left fourth and fifth finger which is unchanged. States he also has pain in his shoulder that radiates into his neck. He states it feels like his shoulder grinds. He called pain management this morning at 8 AM however his doctor was not in yet so he came to the ER. PFSH PFSH Home Medications clopidogrel 75 mg PO DAILY 09/23/16 [History Last Taken 09/23/16 08:00] pantoprazole 20 mg PO DAILY 06/26/17 [History Last Taken Unknown] oxycodone-acetaminophen 1 - 2 tab PO Q6H PRN PRN 06/08/18 [History Last Taken Unknown] rosuvastatin 10 mg PO QHS 06/08/18 [History Last Taken Unknown] aspirin 81 mg PO DAILY 08/18/18 [History Last Taken Unknown] baclofen 10 mg PO TID PRN 08/27/21 [History Last Taken Unknown] diazepam [Valium] 5 mg PO TID PRN #14 tab 08/27/21 [Rx Last Taken Unknown] Allergy/AdvReac Type Severity Reaction Status Date / Time omeprazole AdvReac Other Verified 08/27/21 10:22 Social History Smoking Status: Current every day smoker tobacco type: cigarettes ROS ROS ED Constitutional Constitutional ED: Denies chills or fever(s) Eyes Eyes: Denies blurry vision or change in vision ENT ENT ED: Denies ear pain Cardiovascular Cardiovascular: Denies chest pain or palpitations Respiratory/Chest Respiratory/Chest: Denies dyspnea Gastrointestinal Gastrointestinal: Denies abdominal pain, nausea or vomiting Musculoskeletal Musculoskeletal: Reports back pain and neck pain Integumentary Denies rash Neurologic Neurologic: Reports headache(s); Denies paresthesias or weakness Psychiatric Psychiatric: Denies anxiety or depression EXAM Physical Exam Const Vital Signs: 08/27/21 10:16 08/27/21 10:36 08/27/21 11:43 Temperature 97.2 F L Temperature Source Temporal Pulse Rate 82 63 Respiratory Rate 14 18 Respiratory Effort Normal Non-Labored Blood Pressure 116/92 H 128/84 H Blood Pressure Mean 100 98 Pulse Ox 100 98 Oxygen Delivery Method Room Air Room Air 08/27/21 12:43 Temperature Temperature Source Pulse Rate 65 Respiratory Rate 16 Respiratory Effort Blood Pressure 119/97 H Blood Pressure Mean Pulse Ox 98 Oxygen Delivery Method Positive well nourished and well developed General Appearance ED: well developed HEENT Reports TM's clear and moist mucous membranes Negative for trauma or tenderness Tympanic Membrane ED: Yes TM's clear Eyes PERRL and EOMs intact bilaterally Neck supple Neck Narrative: No midline tenderness. Decreased range of motion secondary to pain. Patient does have left cervical paraspinal tenderness palpation and spasm. There is associated trapezius spasm as well. General: tenderness Chest Wall inspection of chest normal Resp normal respiratory effort Cardio regular rate, regular rhythm and no murmurs GI normal to inspection, nondistended, normoactive bowel sounds Back/Spine no CVA tenderness Cervical Spine: Negative for cervical spine tenderness Thoracic Spine / Upper Back: Negative for thoracic spinal tenderness Extremity normal to inspection General Extremety ED: Negative for edema or tenderness General Extremity: Negative for edema Neuro oriented x3 and no sensory deficits noted Neuro Narrative: Equal elevator erector strength bilaterally Sensorium / Orientation: alert Motor Exam: strength 5/5 throughout Psych mental status grossly normal Skin no rashes or lesions noted and no wounds MDM MDM MDM Narrative Medical decision making narrative: Patient evaluated for acute exacerbation of his chronic neck pain. He has associated muscle spasm. Is given a dose of IV morphine and oral Valium. On reevaluation he has improvement of his headache but still complain of significant neck pain. Does not have any acute neurova scular defects. Case is discussed with his pain management doctor, Dr. Noble who is comfortable with pain control and discharged home for outpatient follow- up. He is agreeable with short course of either pain medicines or Valium for symptoms. Patient states he has Percocet at home he will be given a prescription for Valium. Instructed to call pain management tomorrow for outpatient follow-up. Discharge Plan Triage Chief Complaint: Other, Pain/Inj ED Provider: Aspen Mathias Dx/Rx/DC Orders Clinical Impression: Neck and shoulder pain, Muscle spasms of neck Instructions: ED Neck Pain, ED Neck Spasm, No Trauma Prescriptions: New diazepam [Valium] 5 mg tablet 5 mg PO TID PRN (Reason: muscle spasm) Qty: 14 RF: 0 No Action clopidogrel 75 MG tablet 75 mg PO DAILY RF: 0 pantoprazole 20 MG tablet,delayed release (DR/EC) 20 mg PO DAILY RF: 0 oxycodone-acetaminophen 1 TABLET tablet 1 - 2 tab PO Q6H PRN PRN (Reason: Pain) RF: 0 rosuvastatin 10 MG tablet 10 mg PO QHS RF: 0 aspirin 81 MG tablet,chewable 81 mg PO DAILY RF: 0 baclofen 10 mg tablet 10 mg PO TID PRN (Reason: muscle spasms) RF: 0 Primary Care Provider: Richard Dai Referrals: Richard Dai MD [Primary Care Provider] - Activity Restrictions/Additional Instructions: Call your pain management doctor today to schedule follow-up in the next week. Disposition Disposition: Home, Self Care Discharge Date/Time: 08/27/21 12:43
[2021-08-27] MEDS: Morphine 4 MG/ML Syringe IV (11:06)
[2021-08-27] MEDS: diazePAM 5 MG Tablet PO (11:06)
[2021-08-27 11:43] VITALS: BP 128/84; PULSE 63; RESP 18; O2SAT 98
[2021-08-27] MEDS: HYDROmorphone 0.5 MG/0.5 ML SYRINGE IV (12:22)
[2021-08-27] MEDS: Ketorolac 15 MG/ML Vial IV (12:22)
[2021-08-27 12:43] VITALS: BP 119/97; PULSE 65; RESP 16; O2SAT 98
== END 2021-08-27 12:43 | disposition home or self-care (01) ==
PROVIDERS: Emergency Provider Emergency Medicine; PCP Family Medicine; Visit Provider Emergency Medicine
DX: M54.2 Cervicalgia (principal); M25.519 Pain in unspecified shoulder; G89.29 Other chronic pain; F17.210 Nicotine dependence, cigarettes, uncomplicated; Z98.1 Arthrodesis status
CPT/HCPCS: 96374; 96375; 99283; A4216

== ENCOUNTER 2021-09-07 10:28 | Outpatient (CLI) | payer OTHER, SELFPAY ==
--- NOTE | 2021-09-07 10:36 | RAD_ITS ---
STUDY: X-RAY - LEFT SHOULDER REASON FOR EXAM: Male, 61 years old. Shoulder pain. TECHNIQUE: 4 view(s) of the shoulder. COMPARISON: None. FINDINGS: Mild arthrosis of the glenohumeral joint. Normal acromioclavicular joint. Normal acromion. Sclerosis and cystic change of the humeral head. The soft tissue structures are unremarkable. Normal visualized pulmonary apex. RAD/Shoulder min 2 Views IMPRESSION: Mild arthrosis of the glenohumeral joint with sclerosis and cystic change of the humeral head. No acute abnormality or evidence of erosive changes. Electronically Signed: Nestor Burton MD at 10:55 EDT ,
== END 2021-09-07 23:59 | disposition home or self-care (01) ==
LOC: RAD 10:31
PROVIDERS: PCP Family Medicine; Visit Provider Nurse Practitioner Family
DX: M19.012 Primary osteoarthritis, left shoulder (principal)
CPT/HCPCS: 73030

== ENCOUNTER 2021-09-12 03:01 | Observation (INO) | payer OTHER, SELFPAY ==
[2021-09-12] VITALS (15 sets, daily range): BP systolic 90–137; BP diastolic 55–116; PULSE 64–101; RESP 14–18; TEMP 36.2–36.9; O2SAT 96–100; BMI 31.5; BMI 14.6
[2021-09-12 03:15] LABS: Absolute Lymphocyte Count 2.07 X10^3/uL (0.83-4.51); Absolute Neutrophil Count 9.6 X10^3/uL (2.0-7.7); Basophil# 0.09 X10^3/uL; Basophil% 0.7 % (0-1); Eosinophil# 0.07 X10^3/uL; Eosinophils% 0.5 % (0-5); Hematocrit 48.9 % (40-54); Hemoglobin 18.3 g/dL (13.0-16.5); Lymphocyte # 2.07 X10^3/ul (0.83-4.51); Lymphocyte % 15.8 % (19-41); Mean Corp Hgb Conc 37.4 g/dL (32-36); Mean Corpuscular Hgb 31.7 pg (27.0-32.0); Mean Corpuscular Volume 84.7 fL (80-94); Mean Platelet Vol. 12.4 fl (6.2-12.0); Monocyte# 1.16 X10^3/uL; Monocyte% 8.9 % (0-10); NRBC Flagged by Analyzer 0 % (0-5); Neutrophil # 9.62 X10^3/uL (2.7-7.7); Neutrophil % 73.6 % (47-70); POSITIVE MORPHOLOGY YES; Platelet Count 249 K/mm3 (150-450); RBC Distribution Width CV 13.3 % (11.6-14.6); RBC Distribution Width SD 41.1 fl (35.1-43.9); Red Blood Count 5.77 M/mm3 (4.6-6.2); White Blood Count 13.1 K/mm3 (4.4-11.0)
[2021-09-12 03:16] LABS: Differential Indicated SCAN CRITERIA MET
--- NOTE | 2021-09-12 03:17 | CT_ITS ---
EXAM: CT Abdomen and Pelvis With Intravenous Contrast CLINICAL INDICATION: 61 years old, Male; pain TECHNIQUE: Helically acquired images were obtained of the abdomen and pelvis with intravenous contrast. This CT exam was performed using one or more of the following dose reduction techniques: automated exposure control, adjustment of the mA and/or kV according to patient size, and/or use of iterative reconstruction technique. This report was created using [employer] report generation technology. CONTRAST: IV 100mL Isovue-300 COMPARISON: None. FINDINGS: Lower thorax: Unremarkable. Lung bases are clear. No cardiomegaly. No significant pericardial effusion. ABDOMEN: Liver: Unremarkable. Homogeneous. No focal mass. Gallbladder and bile ducts: Mild intrahepatic and common bile duct prominence may be related to cholecystectomy. No calcified common bile duct stone is identified. Pancreas: Unremarkable. No focal cystic or solid mass. Spleen: Unremarkable. Normal size without focal cystic or solid mass. Adrenals: Unremarkable. No nodules. Kidneys and ureters: Unremarkable. Normal renal size and position. No hydronephrosis. Stomach and bowel: Unremarkable. No stomach or bowel distention. No focal inflammatory change. PELVIS: Appendix: No evidence of acute appendicitis. Bladder: Unremarkable. Reproductive: Unremarkable as visualized. No mass. ABDOMEN and PELVIS: Intraperitoneal space: Unremarkable. No ascites or other fluid collection. No free air. Bones/joints: Unremarkable. No suspicious lytic or blastic abnormality. Soft tissues: Unremarkable. No discrete abdominal or pelvic wall hernia. Vasculature: Celiac trunk and proximal SMA stents are noted. Abdominal aorta is non-dilated. Lymph nodes: Unremarkable. No enlarged lymph nodes. CT/Abdomen/Pelvis W IV Cont ONLY IMPRESSION: No acute findings in the abdomen or pelvis. Electronically Signed: Ministerio Real MD at 4:22 EDT ,
[2021-09-12] MEDS: 0.9% Normal Saline 1,000 ML 1000 ML IV (03:24)
[2021-09-12] MEDS: Ondansetron 4 MG/2 ML Vial IV ×2 (03:24→08:40)
[2021-09-12] MEDS: Morphine 4 MG/ML Syringe IV (03:27)
--- NOTE | 2021-09-12 03:27 | EX.ED.DYSGE1 ---
HPI History of Present Illness Chief Complaint: Nausea/Vomiting Informant: patient Narrative Narrative: Patient presents with abdominal pain vomiting and soft stools. He thinks he vomited blood at home. He states the abdominal cramping started a couple days ago. It got a little bit worse yesterday. He had talked to Dr. Medina who is planning to do some outpatient follow-up and evaluation. However, at about 130 this morning the patient woke up and started vomiting. The pain was much worse. He vomited some blackish material into the toilet. He states he did this about 4 years ago when he had a duodenal ulcer that was bleeding. He states this looked the same. He also states that his bowel habits were a little bit soft and he had a little bit of black mixed in. No red blood. Patient also has a history of mesenteric artery stents. But he states he has never had problems with these. He has had scans that always show that they are patent and open. He does take aspirin and Plavix for these. He does not have high cholesterol but he is on rosuvastatin because of the stents. He does take his pantoprazole. Nothing is really making his current symptoms better or worse. PFSH PFSH Home Medications clopidogrel 75 mg PO DAILY 09/23/16 [History Last Taken 09/23/16 08:00] pantoprazole 20 mg PO DAILY 06/26/17 [History Last Taken Unknown] oxycodone-acetaminophen 1 - 2 tab PO Q6H PRN PRN 06/08/18 [History Last Taken Unknown] rosuvastatin 10 mg PO QHS 06/08/18 [History Last Taken Unknown] aspirin 81 mg PO DAILY 08/18/18 [History Last Taken Unknown] baclofen 10 mg PO TID PRN 08/27/21 [History Last Taken Unknown] diazepam [Valium] 5 mg PO TID PRN #14 tab 08/27/21 [Rx Last Taken Unknown] Allergy/AdvReac Type Severity Reaction Status Date / Time omeprazole AdvReac Other Verified 09/12/21 03:05 Social History Smoking Status: Current every day smoker tobacco type: cigarettes ROS ROS ED Constitutional Constitutional ED: Denies chills or fever(s) ENT ENT ED: Denies rhinorrhea or sore throat Cardiovascular Cardiovascular: Denies chest pain or palpitations Respiratory/Chest Respiratory/Chest: Denies cough, dyspnea or sputum Gastrointestinal Gastrointestinal: Reports abdominal pain, diarrhea, nausea, vomiting and other Details: See history of present illness. Stool had some black material in it more than actual melena. ; Denies melena Genitourinary Genitourinary ED: Denies dysuria or hematuria Musculoskeletal Musculoskeletal: Denies back pain or myalgias Integumentary Denies rash Neurologic Neurologic: Denies headache(s) Psychiatric Psychiatric: Reports anxiety Endocrine Endocrinology: Denies polyuria Allergic/Immunologic Allergic/Immunologic ED: Denies urticaria EXAM Physical Exam Const Vital Signs: 09/12/21 03:02 Temperature 98.3 F Temperature Source Oral Pulse Rate 81 Respiratory Rate 15 Blood Pressure 131/116 H Blood Pressure Mean 121 Pulse Ox 98 Oxygen Delivery Method Room Air Positive well nourished and well developed Constitutional Narrative: Patient looks uncomfortable. However, he is not toxic. His blood pressure is slightly up. Heart rate and saturations are normal General Appearance ED: well developed and NAD HEENT Reports moist mucous membranes Negative for trauma Eyes General Eye ED: Negative for pale conjunctiva or scleral icterus Neck no JVD Chest Wall inspection of chest normal and palpation of chest normal Resp normal respiratory effort and clear to auscultation bilaterally Effort and Inspection: Negative for pain with movement Auscultation: Negative for rales, rhonchi or wheezes Cardio regular rate and regular rhythm GI normal to inspection, nondistended, normoactive bowel sounds and non-distended GI Narrative: Patient has some mild tenderness mostly in the epigastric and left mid quadrant area. His abdomen is not distended. Bowel sounds are normal at this time. He states they were significantly increased before but have gotten quieter. Auscultation: normoactive bowel sounds Palpation: soft and tender Back/Spine no CVA tenderness Extremity normal to inspection Neuro oriented x3 Sensorium / Orientation: alert Psych mental status grossly normal Skin no rashes or lesions noted MDM MDM MDM Narrative Medical decision making narrative: This patient's labs actually show elevated hemoglobin. This is likely partly due to to mild dehydration. But is also due to chronic heavy smoking. White count is minimally elevated lipase is negative. Electrolytes showed no marked abnormalities. LFTs are good except alk phos of 140 which is really this patient's baseline. CT scan showed stents in position and no acute process. I discussed the case with Dr. Medina who knows this patient well. Although his labs look good his CT is good and he has improved somewhat, he still has a concerning story. This patient has a history of a significant duodenal bleed in the past. It presented just like this initially. It then got worse. This patient is also anticoagulated on both aspirin and Plavix. Because of his unique history and medications he will be admitted for observation. We will make sure he does not have recurrent bleeding. Plan is likely endoscopy. Hospitalist was contacted Lab Data Attestation: I reviewed the patient's lab results. Labs: Laboratory Results - last 24 hr 09/12/21 09/12/21 09/12/21 03:06 03:06 03:06 WBC 13.1 H RBC 5.77 Hgb 18.3 H* Hct 48.9 MCV 84.7 MCH 31.7 MCHC 37.4 H RDW Std Deviation 41.1 RDW Coeff of Rashida 13.3 Plt Count 249 MPV 12.4 H Immature Gran % (Auto) 0.500 Neut % (Auto) 73.6 H Lymph % (Auto) 15.8 L Kaufman % (Auto) 8.9 Eos % (Auto) 0.5 Baso % (Auto) 0.7 Absolute Neuts (auto) 9.6 H Absolute Lymphs (auto) 2.07 Nucleated RBC % 0 Diff Path Review May foll Sodium Cancelled Potassium Cancelled Chloride Cancelled Carbon Dioxide Cancelled Anion Gap Cancelled BUN Cancelled Creatinine Cancelled Estim Creat Clear Calc Cancelled Est GFR (MDRD) Af Amer Cancelled Est GFR (MDRD) Non-Af Cancelled BUN/Creatinine Ratio Cancelled Glucose Cancelled Calcium Cancelled Total Bilirubin Cancelled Cancelled Direct Bilirubin Cancelled Cancelled AST Cancelled Cancelled ALT Cancelled Cancelled Alkaline Phosphatase Cancelled Cancelled Total Protein Cancelled Cancelled Albumin Cancelled Cancelled Globulin Cancelled Cancelled Albumin/Globulin Ratio Cancelled Lipase 09/12/21 09/12/21 03:06 03:06 WBC RBC Hgb Hct MCV MCH MCHC RDW Std Deviation RDW Coeff of Rashida Plt Count MPV Immature Gran % (Auto) Neut % (Auto) Lymph % (Auto) Kaufman % (Auto) Eos % (Auto) Baso % (Auto) Absolute Neuts (auto) Absolute Lymphs (auto) Nucleated RBC % Diff Path Review Sodium 135 L Potassium 4.0 Chloride 101 Carbon Dioxide 23.0 Anion Gap 11 BUN 19 H Creatinine 1.29 Estim Creat Clear Calc 62.88 Est GFR (MDRD) Af Amer 73 Est GFR (MDRD) Non-Af 60 BUN/Creatinine Ratio 14.7 Glucose 88 Calcium 9.1 Total Bilirubin 0.60 Direct Bilirubin 0.15 AST 22 ALT 29 Alkaline Phosphatase 140 H Total Protein 7.5 Albumin 4.5 Globulin 3.0 Albumin/Globulin Ratio 1.5 Lipase 71 L Radiography Diagnostic Testing: Clinical Impression(s) from Imaging Studies Abdomen/Pelvis CT 09/12/21 03:17 IMPRESSION: No acute findings in the abdomen or pelvis. Electronically Signed: Ministerio Real MD at 4:22 EDT , Discharge Plan Triage Chief Complaint: Nausea/Vomiting ED Provider: Garrett Bradley Dx/Rx/DC Orders Clinical Impression: Acute upper gastrointestinal bleeding, Abdominal pain, Coagulopathy Prescriptions: No Action clopidogrel 75 MG tablet 75 mg PO DAILY RF: 0 pantoprazole 20 MG tablet,delayed release (DR/EC) 20 mg PO DAILY RF: 0 oxycodone-acetaminophen 1 TABLET tablet 1 - 2 tab PO Q6H PRN PRN (Reason: Pain) RF: 0 rosuvastatin 10 MG tablet 10 mg PO QHS RF: 0 aspirin 81 MG tablet,chewable 81 mg PO DAILY RF: 0 baclofen 10 mg tablet 10 mg PO TID PRN (Reason: muscle spasms) RF: 0 diazepam [Valium] 5 mg tablet 5 mg PO TID PRN (Reason: muscle spasm) Qty: 14 RF: 0 Primary Care Provider: Richard Dai Referrals: Richard Dai MD [Primary Care Provider] - Disposition Disposition: Acute Care Hospital [facility]
[2021-09-12 03:45] LABS: Lipase 71 U/L (73-393)
[2021-09-12 03:53] LABS: ALB/GLOB Ratio 1.5 RATIO (0.9-2.4); AST(SGOT) 22 U/L (15-37); Alanine Aminotransfer ALT/SGPT 29 U/L (16-61); Albumin, Serum 4.5 g/dL (3.2-5.0); Alkaline Phosphatase 140 U/L (45-117); Anion Gap 11 (5-15); BUN 19 mg/dL (7-18); BUN/Creat Ratio 14.7 RATIO (10-20); Bilirubin, Direct 0.15 mg/dL (0.00-0.30); Calcium,Total 9.1 mg/dL (8.5-10.1); Chloride 101 mmol/L (98-107); Creatinine, Serum 1.29 mg/dL (0.70-1.30); EST Glomerular Filtration Rate 60 mL/min (>60); Est Glom Filt Rate - Afr Amer 73 mL/min (>60); Estimated Creatinine Clearance 62.88 ml/min; Glucose 88 mg/dL (74-106); Protein, Total 7.5 g/dL (6.4-8.2); Sodium Level 135 mmol/L (136-145)
[2021-09-12] MEDS: HYDROmorphone 1 MG/ML Syringe IV (04:18)
--- NOTE | 2021-09-12 05:38 | HP.PCM.HOS_ITS ---
HPI - General HPI Narrative RAJENDRA HOFFMAN, is a 61 M who presents with abdominal pain & vomiting. He has epigastric pain at baseline. He states worsening abdominal cramping started 2 days ago. It got worse yesterday and he was not eating much, and ate about 5 bites of chicken noodle soup for dinner. He had talked to Dr. Medina yesterday regarding plan for endoscopy. However, at about 1:30 AM this morning the patient woke up and star stas vomiting (two episodes). The pain was much worse. He vomited some brown emesis and showed pictures in his phone. Four years ago patient states he had a bleeding ulcer. Patient had frequent bowel movements yesterday (7) which were brown and soft. Patient also has a history of mesenteric artery stents. But he states he has never had problems with these. He has had scans that always show that they are patent and open. He does take aspirin and Plavix for these. He does not have high cholesterol but he is on rosuvastatin because of the stents. He takes pantoprazole in evening. His pain is improved now, since coming to the ED. BUN was 19. Hgb was 18.3 from baseline of 16. PFSH Home Medications clopidogrel 75 mg PO DAILY 09/23/16 [History Last Taken 09/23/16 08:00] pantoprazole 20 mg PO DAILY 06/26/17 [History Last Taken Unknown] oxycodone-acetaminophen 1 - 2 tab PO Q6H PRN PRN 06/08/18 [History Last Taken Unknown] rosuvastatin 10 mg PO QHS 06/08/18 [History Last Taken Unknown] aspirin 81 mg PO DAILY 08/18/18 [History Last Taken Unknown] baclofen 10 mg PO TID PRN 08/27/21 [History Last Taken Unknown] diazepam [Valium] 5 mg PO TID PRN #14 tab 08/27/21 [Rx Last Taken Unknown] Allergy/AdvReac Type Severity Reaction Status Date / Time omeprazole AdvReac Other Verified 09/12/21 03:05 Social History Smoking Status: Current every day smoker tobacco type: cigarettes ROS ROS Narrative 7 pt ROS negative except for pertinent positives in HPI Vital Signs Vital Signs Vital Signs: 09/12/21 03:02 Temperature 98.3 F Temperature Source Oral Pulse Rate 81 Respiratory Rate 15 Blood Pressure 131/116 H Blood Pressure Mean 121 Pulse Ox 98 Oxygen Delivery Method Room Air Weight Weight: 219 lb 12.814 oz Body Mass Index (BMI) 31.5 Physical Exam Narrative HEENT Dry mucous membranes normocephalic and atraumatic Eyes PERRL and EOMs intact bilaterally Neck no lymphadenopathy on visual inspection General Chest Wall inspection of chest normal and palpation of chest normal Resp normal respiratory effort and mild congestion noises, no wheezing or increased work. Effort and Inspection: respiratory distress Auscultation: Negative for rales, rhonchi or wheezes Cardio regular rhythm, S1 normal heart sound, S2 normal heart sound and no murmurs; Negative for regular rate Rate: regular GI normal to inspection, nondistended, normoactive bowel sounds, soft to palpation, tender in epigastrum (localized), non-distended and no masses Extremity General Extremety ED: Negative for edema or tenderness General Extremity: Negative for edema Neuro No gross deficits Psych mental status grossly normal - very animated Skin wound on forehead, and left arm General Skin Exam: Negative for jaundice or pallor Results Lab / Micro Data Result Diagrams: 09/12/21 03:06 09/12/21 03:06 Labs: Laboratory Results - last 24 hr 09/12/21 03:06: WBC 13.1 H, RBC 5.77, Hgb 18.3 H*, Hct 48.9, MCV 84.7, MCH 31.7, MCHC 37.4 H, RDW Std Deviation 41.1, RDW Coeff of Rashida 13.3, Plt Count 249, MPV 12.4 H, Immature Gran % (Auto) 0.500, Neut % (Auto) 73.6 H, Lymph % (Auto) 15.8 L, Traverse % (Auto) 8.9, Eos % (Auto) 0.5, Baso % (Auto) 0.7, Absolute Neuts (auto) 9.6 H, Absolute Lymphs (auto) 2.07, Nucleated RBC % 0, Diff Path Review October09/12/21 03:06: Sodium Cancelled, Potassium Cancelled, Chloride Cancelled, Carb on Dioxide Cancelled, Anion Gap Cancelled, BUN Cancelled, Creatinine Cancelled, Estim Creat Clear Calc Cancelled, Est GFR (MDRD) Af Amer Cancelled, Est GFR (MDRD) Non-Af Cancelled, BUN/Creatinine Ratio Cancelled, Glucose Cancelled, Calcium Cancelled, Total Bilirubin Cancelled, Direct Bilirubin Cancelled, AST Cancelled, ALT Cancelled, Alkaline Phosphatase Cancelled, Total Protein Cancelled, Albumin Cancelled, Globulin Cancelled, Albumin/Globulin Ratio Cancelled 09/12/21 03:06: Total Bilirubin Cancelled, Direct Bilirubin Cancelled, AST Cancelled, ALT Cancelled, Alkaline Phosphatase Cancelled, Total Protein Cancelled, Albumin Cancelled, Globulin Cancelled 09/12/21 03:06: Lipase 71 L 09/12/21 03:06: Sodium 135 L, Potassium 4.0, Chloride 101, Carbon Dioxide 23.0, Anion Gap 11, BUN 19 H, Creatinine 1.29, Estim Creat Clear Calc 62.88, Est GFR (MDRD) Af Amer 73, Est GFR (MDRD) Non-Af 60, BUN/Creatinine Ratio 14.7, Glucose 88, Calcium 9.1, Total Bilirubin 0.60, Direct Bilirubin 0.15, AST 22, ALT 29, Alkaline Phosphatase 140 H, Total Protein 7.5, Albumin 4.5, Globulin 3.0, Albumin/Globulin Ratio 1.5 Radiology Impression Abdomen/Pelvis CT 09/12/21 03:17 IMPRESSION: No acute findings in the abdomen or pelvis. Electronically Signed: Rajendra Real MD at 4:22 EDT , Assessment & Plan Assessment/Plan (1) Weight loss: (2) Vomiting: (3) History of ulcer disease: PLAN: Keep NPO GI consulted by ED & will await recs Will continue PPI twice daily Zofran for nausea as needed Hold Lovenox, Plavix and anticoagulation Avoid NSAIDS Full Code as per our discussion Charges/Coding Visit Charges OBSV E&M: 96629 Initial observation care L2
[2021-09-12] MEDS: 0.9% Normal Saline 1,000 ML 15 ML IV (11:00)
--- NOTE | 2021-09-12 11:30 | IMM_PTH ---
PATIENT: RAJENDRA HOFFMAN LOC: [facility] U#:[id number] AGE/SX: 61/M ROOM: [facility] RE09/12/[address]: Dr. Pierre Jefferson DO : 1960 BED: 1 DIS: 09/12/2021 SPEC #: [id number] RECD: 09/12/21 14:03 STATUS: MAKAYLA REQ #: [id number] HERNANDEZ: 09/12/21 11:[address]: Kory Medina DEPT: IMMUNOHISTOCHEMISTRY RECD BY: Hortencia Rodriguez ENTERED: 09/12/21 14:04 SP TYPE: IMMUNO OTHR DR: DO Dr. Michael Gonzalez MD Dr. Scott Brown, MD Tissues: Stomach, NOS Procedures: H Pylori (initial) PHYSICIAN & INSTITUTION [place] [id number] SPECIMEN INFORMATION: Tissue Source: Gastric antrum biopsy Clinical Info: Vomiting, nausea, abdominal pain Specimen Number: [id number] CPT code: 92897 METHODOLOGY: Deparaffinized sections of prefer/formalin-fixed tissue or PAP/DQ stained slides are incubated with monoclonal/polyclonal antibodies/oligonucleotide probes. Localization is made via biotin free immunoperoxidase method. Appropriate controls are performed and reacted as expected. Results on target cell population are indicated in the following table: RESULTS: ANTIBODY / CLONE RESULT H Pylori (polyclonal) negative These tests were developed and their performance characteristics determined by [facility]. They may not have been cleared or approved by the U.S. Food and Drug Administration. The FDA has determined that such clearance or approval is not necessary. INTERPRETATION: Gastric antrum, biopsy: Negative for Helicobacter pylori organisms. SJ:ambrose 09/13/2021
--- NOTE | 2021-09-12 11:30 | EGD_PTH ---
PATIENT: RAJENDRA HOFFMAN LOC: [facility] U#:[id number] AGE/SX: 61/M ROOM: [facility] RE09/12/[address]: Dr. Pierre Jefferson DO : 1960 BED: 1 DIS: 09/12/2021 SPEC #: [id number] RECD: 09/12/21 12:20 STATUS: MAKAYLA REKiara #: [id number] HERNANDEZ: 09/12/21 11:[address]: Kory Medina DEPT: SURGICAL PATHOLOGY RECD BY: Bela Gonzalez ENTERED: 09/12/21 12:59 SP TYPE: EGD BIOPSY OT DR: DO Dr. Michael Gonzalez MD Dr. Scott Brown, MD Tissues: Gastric mucous membrane Procedures: Surgery Specimen Level IV HEADER OPERATION: EGD ([facility]) with biopsy and gold probe PRE-OP DIAGNOSIS: Vomiting, nausea, abdominal pain TISSUE SUBMITTED: Gastric antrum biopsy for H. pylori and histology MICROSCOPIC DIAGNOSIS Gastric antrum, biopsy: Fragments of gastric mucosa with focal ulceration, acute and chronic inflammation. See comment. CORTES:ambrose 09/13/2021 COMMENT The results of immunohistochemistry for Helicobacter pylori will be reported separately ([id number]). MICROSCOPIC DESCRIPTION Slides are reviewed. GROSS DESCRIPTION Received in fixative is one container labeled with the patient's name and designated gastric antrum biopsy. The specimen consists of two irregular fragments of light romero soft tissue that in aggregate measure 0.5 x 0.5 x 0.1 cm. The specimen is totally submitted in one cassette. / CORTES:ambrose 09/12/2021 TC:2 CPT: 33541
--- NOTE | 2021-09-12 11:42 | CON.PCM.GI_ITS ---
HPI Consult Data Date of Consult: 09/12/21 HPI Narrative HPI Narrative: RAJENDRA HOFFMAN, is a 61 M who presents to the ED with worsening abdominal pain. He has a past medical history of chronic mesenteric stenosis status post PTCA with stenting of the mesenteric vessels on aspirin and Plavix. He also has a past medical history of choledocholithiasis status post ERCP with stone removal. He has been having progressive weight loss over the last several years and is currently about 102 pounds with a BMI of 14.7. He started having abdominal pain last night which progressed to worsening nausea, vomiting and coffee-ground emesis. He still smokes on a daily basis. 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 In the ED he was discovered to be hyper concentrated with hemoglobin of 18. His LFTs were normal. [facility] Medical History (Updated 09/12/21 @ 08:42 by Rebeca Cardoza) Ulcer Home Medications clopidogrel 75 mg PO DAILY 09/23/16 [History Last Taken 09/10/21 19:00] pantoprazole 20 mg PO DAILY 06/26/17 [History Last Taken 09/10/21 19:00] rosuvastatin 10 mg PO QHS 06/08/18 [History Last Taken 09/10/21 19:00] aspirin 81 mg PO DAILY 08/18/18 [History Last Taken 09/10/21 19:00] Allergy/AdvReac Type Severity Reaction Status Date / Time omeprazole AdvReac Other Verified 09/12/21 03:05 Social History Smoking Status: Current every day smoker tobacco type: cigarettes ROS Gastrointestinal Gastrointestinal: Reports coffee ground emesis and dry heaves Physical Exam Const alert General Appearance: cooperative Orientation / Consciousness: oriented to person HEENT hearing grossly normal bilaterally Head and Scalp: normal to inspection Face and Sinus: face symmetric Nose: external nose normal Mouth: oral and palatal mucosa normal Eyes conjunctivae normal General Eye: normal appearance of both eyes Neck full ROM General: normal visual inspection Lymph Lymphatic: no lymphadenopathy noted Chest inspection of chest normal and palpation of chest normal Chest: symmetrical chest wall rise Resp normal respiratory effort Effort and Inspection: able to speak in complete sentences Cardio regular rate GI non-distended Percussion: normal to percussion Rectal Exam: deferred Neuro Speech: speech normal Gait (Neuro): normal gait Lab / Micro Data Result Diagrams: 09/12/21 03:06 09/12/21 03:06 Labs: Laboratory Results - last 24 hr 09/12/21 03:06: WBC 13.1 H, RBC 5.77, Hgb 18.3 H*, Hct 48.9, MCV 84.7, MCH 31.7, MCHC 37.4 H, RDW Std Deviation 41.1, RDW Coeff of Rashida 13.3, Plt Count 249, MPV 12.4 H, Immature Gran % (Auto) 0.500, Neut % (Auto) 73.6 H, Lymph % (Auto) 15.8 L, [place] % (Auto) 8.9, Eos % (Auto) 0.5, Baso % (Auto) 0.7, Absolute Neuts (auto) 9.6 H, Absolute Lymphs (auto) 2.07, Nucleated RBC % 0, Diff Path Review October09/12/21 03:06: Sodium Cancelled, Potassium Cancelled, Chloride Cancelled, Carbon Dioxide Cancelled, Anion Gap Cancelled, BUN Cancelled, Creatinine Cancelled, Estim Creat Clear Calc Cancelled, Est GFR (MDRD) Af Amer Cancelled, Est GFR (MDRD) Non-Af Cancelled, BUN/Creatinine Ratio Cancelled, Glucose Cancelled, Calcium Cancelled, Total Bilirubin Cancelled, Direct Bilirubin Cancelled, AST Cancelled, ALT Cancelled, Alkaline Phosphatase Cancelled, Total Protein Cancelled, Albumin Cancelled, Globulin Cancelled, Albumin/Globulin Ratio Cancelled 09/12/21 03:06: Total Bilirubin Cancelled, Direct Bilirubin Cancelled, AST Cancelled, ALT Cancelled, Alkaline Phosphatase Cancelled, Total Protein Cancelled, Albumin Cancelled, Globulin Cancelled 09/12/21 03:06: Lipase 71 L 09/12/21 03:06: Sodium 135 L, Potassium 4.0, Chloride 101, Carbon Dioxide 23.0, Anion Gap 11, BUN 19 H, Creatinine 1.29, Estim Creat Clear Calc 62.88, Est GFR (MDRD) Af Amer 73, Est GFR (MDRD) Non-Af 60, BUN/Creatinine Ratio 14.7, Glucose 88, Calcium 9.1, Total Bilirubin 0.60, Direct Bilirubin 0.15, AST 22, ALT 29, Alkaline Phosphatase 140 H, Total Protein 7.5, Albumin 4.5, Globulin 3.0, Albumi n/Globulin Ratio 1.5 Micro: Microbiology 09/12/21 09:50 Nasal Secretion SARS-CoV-2 Antigen (Rapid) - Final Radiology Impression Abdomen/Pelvis CT 09/12/21 03:17 IMPRESSION: No acute findings in the abdomen or pelvis. Electronically Signed: Rajendra Real MD at 4:22 EDT , Assessment & Plan Assessment/Plan (1) Vomiting: PLAN: Differential diagnosis for his vomiting is peptic ulcer disease, cyclic vomiting syndrome, gastroparesis associated with nicotine resulting in Marylu-Najera tear. (2) Weight loss: PLAN: Differential diagnosis for his weight loss is COPD cachexia and chronic mesenteric arterial stenosis. (3) Abdominal pain: PLAN: He will undergo an upper endoscopy to evaluate his upper GI tract. He was explained alternatives, risk, benefits including outstanding bleeding, infection, sepsis, perforation, need for emergent . Have an ASA of 3. Charges/Coding Visit Charges Inpatient E&M: 31531 Init Hosp L3
--- NOTE | 2021-09-12 12:14 | OP.CCLET_ITS ---
03/20/2022 Richard Dai Re : Upper GI endoscopy procedure for Ministerio Dai This procedure was performed on Sunday, September 12, 2021. My impressions and recommendations are as follows: Impressions : - [place]-colored mucosa. - LA Grade B reflux esophagitis. - Chronic gastritis with hemorrhage. Biopsied. - Three bleeding angiodysplastic lesions in the stomach. Treated with a heater probe. - Chronic duodenitis. Recommendations : - [facility] patient to [facility]. - Use Protonix (pantoprazole) 40 mg PO BID. - Use sucralfate tablets 1 gram PO QID. - No aspirin, ibuprofen, naproxen, or other non-steroidal anti-inflammatory drugs for 5 days. -CT angiography to assess the patency of the mesenteric arterial stents -Smoking cessation My findings are described in the full procedure note, which is enclosed. If I can be of further assistance, please feel free to contact me at . Sincerely, Kory Medina, 09/12/2021 12:13:38 PM This report has been signed electronically.
--- NOTE | 2021-09-12 12:14 | OP.EGD_ITS ---
Patient Name: Ministerio Leal Procedure Date: 09/12/2021 10:52 AM Date of : 1960 Age: 61 Procedure: Upper GI endoscopy Indications: Coffee-ground emesis Providers: Kory Medina DO Medicines: See the Anesthesia note for documentation of the administered medications Patient Profile: This is a 61 year old male. Refer to note in patient chart for documentation of history and physical. Patient has symptoms of acute epigastric abdominal pain and acute vomiting. Complications: No immediate complications. Procedure: Pre-Anesthesia Assessment: - Prior to the procedure, a History and Physical was performed, and patient medications and allergies were reviewed. The patient is competent. The risks and benefits of the procedure and the sedation options and risks were discussed with the patient. All questions were answered and informed consent was obtained. Patient identification and proposed procedure were verified by the physician in the pre-procedure area. Mental Status Examination: alert and oriented. Airway Examination: normal oropharyngeal airway and neck mobility. Respiratory Examination: clear to auscultation. CV Examination: normal. Prophylactic Antibiotics: The patient does not require prophylactic antibiotics. Prior Anticoagulants: The patient has taken no previous anticoagulant or antiplatelet agents. After reviewing the risks and benefits, the patient was deemed in satisfactory condition to undergo the procedure. The anesthesia plan was to use moderate sedation / analgesia (conscious sedation). Immediately prior to administration of medications, the patient was re-assessed for adequacy to receive sedatives. The heart rate, respiratory rate, oxygen saturations, blood pressure, adequacy of pulmonary ventilation, and response to care were monitored throughout the procedure. The physical status of the patient was re-assessed after the procedure. After obtaining informed consent, the endoscope was passed under direct vision. Throughout the procedure, the patient's blood pressure, pulse, and oxygen saturations were monitored continuously. The Endoscope was introduced through the mouth, and advanced to the second part of duodenum. The upper GI endoscopy was accomplished without difficulty. The patient tolerated the procedure well. Moderate Sedation: Moderate (conscious) sedation was administered by the endoscopy nurse and supervised by the endoscopist. The patient's oxygen saturation, heart rate, blood pressure and response to care were monitored. Total physician intraservice time was 15 minutes. Scope In: 11:53:28 AM Scope Out: 12:04:23 PM Total Procedure Duration Time 0 hours 10 minutes 55 seconds Findings: Circumferential salmon-colored mucosa was present at 20 cm. Ulcerations were present at 20 cm. The maximum longitudinal extent of these esophageal mucosal changes was 3 cm in length. LA Grade B (one or more mucosal breaks greater than 5 mm, not extending between the tops of two mucosal folds) esophagitis with no bleeding was found 38 to 41 cm from the incisors. Diffuse severe inflammation with hemorrhage characterized by congestion (edema), erosions, erythema and friability was found in the gastric body. Biopsies were taken with a cold forceps for histology. Verification of patient identification for the specimen was done. Estimated blood loss was minimal. Three 5 mm bleeding angiodysplastic lesions were found in the cardia. Coagulation for hemostasis using heater probe was successful. Estimated blood loss was minimal. Patchy moderate inflammation characterized by congestion (edema), erosions, erythema, friability and granularity was found in the duodenal bulb, in the first portion of the duodenum and in the second portion of the duodenum. Impression: - [place]-colored mucosa. - LA Grade B reflux esophagitis. - Chronic gastritis with hemorrhage. Biopsied. - Three bleeding angiodysplastic lesions in the stomach. Treated with a heater probe. - Chronic duodenitis. Recommendation: - Return patient to [facility] for [facility] care. - Use Protonix (pantoprazole) 40 mg PO BID. - Use sucralfate tablets 1 gram PO QID. - No aspirin, ibuprofen, naproxen, or other non-steroidal anti-inflammatory drugs for 5 days. -CT angiography to assess the patency of the mesenteric arterial stents -Smoking cessation Procedure Code(s): --- Professional --- 10975, 59, Esophagogastroduodenoscopy, flexible, transoral; with control of bleeding, any method 01666, Esophagogastroduodenoscopy, flexible, transoral; with biopsy, single or multiple 91747, 59, Moderate sedation services provided by the same physician or other qualified health lawn care worker performing the diagnostic or therapeutic service that the sedation supports, requiring the presence of an independent trained observer to assist in the monitoring of the patient's level of consciousness and physiological status; initial 15 minutes of intraservice time, patient age 5 years or older CPT copyright 2017 [employer]. All rights reserved. The codes documented in this report are preliminary and upon trestle mainternance laborer review may be revised to meet current compliance requirements. Kory Medina DO 09/12/2021 12:13:38 PM This report has been signed electronically. Number of Addenda: 1 Note Initiated On: 09/12/2021 10:52 AM Addendum Number: 1 Addendum Date: 03/20/2022 6:21:06 AM MAC was used as sedation for this procedure. Kory Medina DO 03/20/2022 6:21:10 AM This report has been signed electronically.
[2021-09-12 13:30] LABS: Pathologist Review Reviewed
[2021-09-12] MEDS: HYDROmorphone 0.5 MG/0.5 ML SYRINGE IV (14:44)
[2021-09-12] MEDS: 0.9% Saline Lock 10 ML Syringe IV (14:44)
--- NOTE | 2021-09-12 15:33 | PCM.DC ---
Discharge Instructions Diet Discharge Diet: No restrictions Activity Discharge Activity: Return to Normal Activity Weight Bearing Status: Full weight bearing Follow Up Care Test Results: Test results from this visit will be discussed in further detail at your follow-up appointment, if applicable. Discharge Plan Admission Admit Date/Time: 09/12/21 05:44 Primary Reason for Your Visit: nausea/vomiting, gastritis, duodenitis Attending Provider: Pierre Jefferson Primary Care Provider: Richard Dai Instructions Additional Instructions / Restrictions: Take Carafate 1 gram four times a day Discharge Orders/Prescriptions Prescriptions: New pantoprazole [Protonix] 40 mg tablet,delayed release (DR/EC) 40 mg PO BID Qty: 60 RF: 0 Continued rosuvastatin 10 MG tablet 10 mg PO QHS RF: 0 Held clopidogrel 75 MG tablet 75 mg PO DAILY RF: 0 Hold Instructions: hold for five days, then resume aspirin 81 MG tablet,chewable 81 mg PO DAILY RF: 0 Hold Instructions: hold for 5 days, then resume Discontinued pantoprazole 20 MG tablet,delayed release (DR/EC) 20 mg PO DAILY RF: 0 Referrals / Follow Up: Kory Medina DO [STAFF PHYSICIAN] - See Referral Note (call tomorrow to schedule appointment for follow up) Richard Dai MD [Primary Care Provider] - Disposition Disposition (needs filled in before D/C Order can be placed): Home, Self Care
--- NOTE | 2021-09-12 15:42 | PCM.DC.SUM ---
Providers Date of Admission: 09/12/21 Date of Discharge: 09/12/21 Primary Care Physician: Dr. Richard Dai MD Consultations 09/12/21 06:47 Consult: Gastroenterology Routine Consulting Provider: [facility] Reason for Consult: eval for pain EMERGENT Consult: No MD Notified: Yes Date Notified: 09/12/21 Time Notified: 06:16 Method of Notification: per ED Reason For Visit: VOMITING Diagnosis Discharge Diagnosis (1) Vomiting: Status: Resolved Code(s): R11.10 - Vomiting, unspecified (2) Weight loss: Status: Acute (3) Abdominal pain: Status: Acute Code(s): R10.9 - Unspecified abdominal pain Plan: 1. 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 Work-up in the emergency room included labs which showed a slightly elevated white blood cell count at 13.1, hemoglobin was 18.3, lipase was 71. Gastroenterology was contacted and agreed to see the patient in consultation, he was placed in observation status on PCU, he underwent an EGD on 09/12/2021 which showed evidence of gastritis with hemorrhage, grade B reflux esophagitis, evidence of angiodysplastic lesions in the stomach, and chronic duodenitis. Patient was seen in the afternoon 09/12/2021, he appeared to be improved and it was felt he was stable for discharge home. He was a seen and examined on that day: On examination he appeared in good health and spirits. Vital signs as documented. Skin warm and dry and without overt rashes. Neck without JVD, neck was supple, trachea midline, thyroid was normal. Lungs clear bilaterally, normal air movement was noted. Heart exam notable for regular rhythm, normal sounds and absence of murmurs, rubs or gallops. Abdomen unremarkable and without evidence of organomegaly, masses, or abdominal aortic enlargement. Bowel sounds are present, abdomen is not distended. Extremities nonedematous, no cyanosis was noted, no clubbing was noted. Neuro: Cranial nerves II through XII are grossly intact, no focal motor deficits were noted, sensation to light touch and pinprick intact, motor exam 5/5 throughout. Psych: Patient is alert and oriented x3, he does not appear anxious or depressed, he does not appear agitated. Patient appears stable for discharge home on 09/12/2021. Medical Records Data Medical Nutrition Assessment Dietitian: Malnutrition Criteria Met Start: 09/12/21 13:35 Freq: Status: Active Protocol: Document 09/12/21 10:40 AG (Rec: 09/12/21 13:36 [id number]) Nutrition Malnutrition Evidence of Malnutrition Exists Yes Malnutrition (severe): Chronic Evidenced By Suboptimal Energy Intake ( Severe),Weight Loss (Severe), Physical Changes (Severe) Clinical Problem Chronic Disease or Condition Related Malnutrition Etiology severe, chronic malnutrition r /t GI dysfunction Signs/Symptoms as evidenced by estimated PO intake meeting <75% of estimated energy needs >3 months; unintentional wt loss of 17.5#/15% <6 months; severe muscle wasting and fat loss in orbital area, triceps, clavicles, temples, and thigh per physical exam; BMI 14.7 Status Active Problem Recommendation Dietitian Recommendations/Changes Recommend advance diet as tolerated to transitional; if dumping syndrome suspected, recommend regular diet w/ complex carbohydrates, small frequent meals with liquids given 30 minutes to 1 hour after eating. Ensure Enlive 120mL 4x/day w/medpass. Close monitoring of electrolytes given risk for refeeding syndrome. Weight / BMI Weight Weight: 46.5 kg Body Mass Index (BMI) 14.6 ABG / Lab / Microbiology Data Result Diagrams: 09/12/21 03:06 09/12/21 03:06 Laboratory: Laboratory Results - last 24 hr 09/12/21 03:06: WBC 13.1 H, RBC 5.77, Hgb 18.3 H*, Hct 48.9, MCV 84.7, MCH 31.7, MCHC 37.4 H, RDW Std Deviation 41.1, RDW Coeff of Rashida 13.3, Plt Count 249, MPV 12.4 H, Immature Gran % (Auto) 0.500, Neut % (Auto) 73.6 H, Lymph % (Auto) 15.8 L, Avery % (Auto) 8.9, Eos % (Auto) 0.5, Baso % (Auto) 0.7, Absolute Neuts (auto) 9.6 H, Absolute Lymphs (auto) 2.07, Nucleated RBC % 0, Diff Path Review Reviewed 09/12/21 03:06: Sodium Cancelled, Potassium Cancelled, Chloride Cancelled, Carbon Dioxide Cancelled, Anion Gap Cancelled, BUN Cancelled, Creatinine Cancelled, Estim Creat Clear Calc Cancelled, Est GFR (MDRD) Af Amer Cancelled, Est GFR (MDRD) Non-Af Cancelled, BUN/Creatinine Ratio Cancelled, Glucose Cancelled, Calcium Cancelled, Total Bilirubin Cancelled, Direct Bilirubin Cancelled, AST Cancelled, ALT Cancelled, Alkaline Phosphatase Cancelled, Total Protein Cancelled, Albumin Cancelled, Globulin Cancelled, Albumin/Globulin Ratio Cancelled 09/12/21 03:06: Total Bilirubin Cancelled, Direct Bilirubin Cancelled, AST Cancelled, ALT Cancelled, Alkaline Phosphatase Cancelled, Total Protein Cancelled, Albumin Cancelled, Globulin Cancelled 09/12/21 03:06: Lipase 71 L 09/12/21 03:06: Sodium 135 L, Potassium 4.0, Chloride 101, Carbon Dioxide 23.0, Anion Gap 11, BUN 19 H, Creatinine 1.29, Estim Creat Clear Calc 62.88, Est GFR (MDRD) Af Amer 73, Est GFR (MDRD) Non-Af 60, BUN/Creatinine Ratio 14.7, Glucose 88, Calcium 9.1, Total Bilirubin 0.60, Direct Bilirubin 0.15, AST 22, ALT 29, Alkaline Phosphatase 140 H, Total Protein 7.5, Albumin 4.5, Globulin 3.0, Albumin/Globulin Ratio 1.5 Microbiology: Microbiology 09/12/21 09:50 Nasal Secretion SARS-CoV-2 Antigen (Rapid) - Final Radiography Diagnostic Testing: Radiology Impression Abdomen/Pelvis CT 09/12/21 03:17 IMPRESSION: No acute findings in the abdomen or pelvis. Electronically Signed: Ministerio Real MD at 4:22 EDT , D/C Instructions Discharge Diet: No restrictions Weight Bearing Status: Full weight bearing Meaningful Use Info Meaningful Use Diagnoses (Choose all that apply): None applicable Discharge Plan Admission Admit Date/Time: 09/12/21 05:44 Primary Reason for Your Visit: nausea/vomiting, gastritis, duodenitis Attending Provider: Pierre Jefferson Primary Care Provider: Richard Dai Instructions Additional Instructions / Restrictions: Take Carafate 1 gram four times a day Discharge Orders/Prescriptions Prescriptions: Continued rosuvastatin 10 MG tablet 10 mg PO QHS RF: 0 Held clopidogrel 75 MG tablet 75 mg PO DAILY RF: 0 Hold Instructions: hold for five days, then resume aspirin 81 MG tablet,chewable 81 mg PO DAILY RF: 0 Hold Instructions: hold for 5 days, then resume Discontinued pantoprazole 20 MG tablet,delayed release (DR/EC) 20 mg PO DAILY RF: 0 No Action pantoprazole [Protonix] 40 mg tablet,delayed release (DR/EC) 40 mg PO BID RF: 0 Referrals / Follow Up: Kory Medina DO [STAFF PHYSICIAN] - See Referral Note (call tomorrow to schedule appointment for follow up) Richard Dai MD [Primary Care Provider] - Disposition Disposition (needs filled in before D/C Order can be placed): Home, Self Care Charges/Coding Visit Charges OBSV E&M: 85765 Observ/hosp same date L3
== END 2021-09-12 15:41 | disposition home or self-care (01) ==
LOC: ED 06:19 → PCU 06:30
PROVIDERS: Internal Medicine Gastroenterology; Admitting Provider Hospitalist; Emergency Provider Emergency Medicine; PCP Family Medicine; Visit Provider Internal Medicine
PROC: 0DJ08ZZ Inspection of Upper Intestinal Tract, Via Natural or Artificial Opening Endoscopic (ICD-10-PCS; CPT 43235; principal; 2021-09-12 11:25)
DX: K31.811 Angiodysplasia of stomach and duodenum with bleeding (principal); E43 Unspecified severe protein-calorie malnutrition; D68.9 Coagulation defect, unspecified; K21.01 Gastro-esophageal reflux disease with esophagitis, with bleeding; K29.80 Duodenitis without bleeding; F17.210 Nicotine dependence, cigarettes, uncomplicated; E86.0 Dehydration; K29.50 Unspecified chronic gastritis without bleeding; Z79.899 Other long term (current) drug therapy; Z68.1 Body mass index [BMI] 19.9 or less, adult; Z79.82 Long term (current) use of aspirin; Z79.02 Long term (current) use of antithrombotics/antiplatelets
CPT/HCPCS: 43239; 43255; 74177; 80053; 82248; 83690; 85025; 87426; 88305; 88342; 96365; 96366; 96375; 96376; 97802; 99218; 99285; 99406; J7030; J7050; Q9967; A4216; G0378; J2405; J3490

== ENCOUNTER 2021-09-13 08:56 | Inpatient (IN) | payer OTHER, SELFPAY ==
[2021-09-13] VITALS (7 sets, daily range): BP systolic 125–170; BP diastolic 65–100; PULSE 62–85; RESP 16–22; TEMP 36.5–37.8; O2SAT 97–100; BMI 14.5; BMI 14.7
--- NOTE | 2021-09-13 10:05 | CT_ITS ---
STUDY: CT ABDOMEN AND PELVIS WITH CONTRAST REASON FOR EXAM: Male, 61 years old. Mesenteric ischemia RADIATION DOSAGE (If Supplied By Facility): CTDIvol = ( 20.43 ) mGy, DLP = ( 251.99 ) mGycm TECHNIQUE: Transaxial images were obtained from the dome of the diaphragm to the symphysis pubis without oral contrast. IV 75mL Isovue-370 was administered. Sagittal and coronal images were reconstructed. Individualized dose optimization techniques were used for this CT. COMPARISON: Comparison is made with prior study dated 09/12/2021. FINDINGS: The visualized lung bases are unremarkable. The visualized portions of the heart are within normal limits. There is decreased attenuation of the liver consistent with steatosis. There are surgical clips in the gallbladder fossa consistent with a prior cholecystectomy. Normal spleen. Normal pancreas. Normal bilateral adrenal glands. Normal right kidney. Normal left kidney. Normal visualized stomach. Normal small intestine. There is evidence of a colitis involving the transverse colon as well as the left hemicolon. The appendix is visualized and appears normal. There is diffuse atherosclerotic calcification of the abdominal aorta, without a demonstrated aneurysm. Vascular stents are seen at the origin of the superior mesenteric and celiac artery. The stents are patent. Calcific plaques at the origin of the right common iliac artery causing moderate degree of obstruction. Normal inferior vena cava. Normal retroperitoneum. Normal urinary bladder. Normal abdominal wall. Normal osseous structures. CT/CT ANGIO ABD&PEL W/O&W/DYE IMPRESSION: Atherosclerotic plaques of the abdominal aorta as well as at the origin of the superior mesenteric and celiac arteries. Vascular stents are seen at the origin of the celiac artery and superior mesenteric artery. The vessels are patent. Findings suggestive of colitis involving the transverse colon as well as the descending colon. Electronically Signed: Ramon Miranda MD at 11:26 EDT ,
[2021-09-13 10:06] LABS: Absolute Lymphocyte Count 0.85 X10^3/uL (0.83-4.51); Absolute Neutrophil Count 9.3 X10^3/uL (2.0-7.7); Basophil# 0.06 X10^3/uL; Basophil% 0.5 % (0-1); Eosinophil# 0.05 X10^3/uL; Eosinophils% 0.4 % (0-5); Hematocrit 45.7 % (40-54); Hemoglobin 15.5 g/dL (13.0-16.5); Lymphocyte # 0.85 X10^3/ul (0.83-4.51); Lymphocyte % 7.6 % (19-41); Mean Corp Hgb Conc 33.9 g/dL (32-36); Mean Corpuscular Hgb 30.6 pg (27.0-32.0); Mean Corpuscular Volume 90.1 fL (80-94); Monocyte# 0.77 X10^3/uL; Monocyte% 6.9 % (0-10); NRBC Flagged by Analyzer 0 % (0-5); Neutrophil # 9.34 X10^3/uL (2.7-7.7); Neutrophil % 84.2 % (47-70); Platelet Count 222 K/mm3 (150-450); RBC Distribution Width CV 13.5 % (11.6-14.6); RBC Distribution Width SD 44.6 fl (35.1-43.9); Red Blood Count 5.07 M/mm3 (4.6-6.2); White Blood Count 11.1 K/mm3 (4.4-11.0)
--- NOTE | 2021-09-13 10:10 | EX.ED.DYSGE1 ---
HPI <LIMA Reyna - Last Filed: 09/13/21 16:11> History of Present Illness Chief Complaint: Abd Pain Narrative Narrative: 61-year-old male with history of chronic abdominal pain, patient was recently admitted here on 11 September and discharged on the , patient did have an EGD done by Dr. Medina, they did do some cauterization because he has a history of ulcers. Patient was then feeling better, and was discharged. Patient comes back to the emergency department 8 hours later with the exact same symptoms. I did speak with Dr. Medina, the patient is to receive a CTA of the abdomen and pelvis to ensure of his stents, as well as for IV pain control. Patient states to continue to have coffee-ground emesis, continued pain, denies any fevers or chills. PFSH <LIMA Reyna - Last Filed: 09/13/21 16:11> PFSH Medical History (Updated 09/13/21 @ 14:23 by Kristine Cedillo) GI bleed Migraines Smoker Ulcer Home Medications clopidogrel 75 mg PO DAILY 09/23/16 [History Last Taken 09/10/21 19:00] rosuvastatin 10 mg PO QHS 06/08/18 [History Last Taken 09/10/21 19:00] aspirin 81 mg PO DAILY 08/18/18 [History Last Taken 09/10/21 19:00] pantoprazole [Protonix] 40 mg PO BID #60 tab 09/12/21 [Rx Last Taken Unknown] Allergy/AdvReac Type Severity Reaction Status Date / Time omeprazole AdvReac Other Verified 09/13/21 08:57 Surgical History (Updated 09/13/21 @ 14:23 by Kristine Cedillo) History of cholecystectomy Social History Smoking Status: Current every day smoker tobacco type: cigarettes ROS <LIMA Reyna - Last Filed: 09/13/21 16:11> ROS ED ROS Narrative Constitutional: Negative for fever, chills, weight loss or gain, weakness Eyes: Negative for vision loss, vision change, double vision ENT: Negative for any hearing changes, ringing in the ears, dizziness, discharge, pain Nose: Negative for any congestion, runny nose, sinus pain, allergies Throat: Negative for any sore throat hoarseness, voice changes, Cardiovascular: Negative for any chest pain, tightness, palpitations, racing heartbeat Respiratory: Negative for any coughs, sputum production, coughing, hemoptysis, shortness of breath, shortness of breath on exertion, Gastrointestinal: Negative for any diarrhea, constipation, blood in stool. Positive for generalized abdominal pain, nausea, vomiting, coffee-ground emesis : Negative for any urinary frequency, incontinence, dysuria, retention, blood in urine Muscle skeletal: Negative for any muscle joint pain, stiffness, myalgias, arthralgias, neck pain, back pain Neurological: Negative for any headache, head injury, dizziness, syncope, numbness or tingling Skin: Negative for any rashes, lumps, itching, abrasions, lacerations Psychiatric: Negative for any depression, anxiety, stress, suicidal ideation, homicidal ideation Hematologic: Negative for any easy bruising, excessive bruising, easy bleeding Allergies: Negative for any eczema, hives, rash EXAM <LIMA Reyna - Last Filed: 09/13/21 16:11> Physical Exam Const Vital Signs: 09/13/21 08:57 09/13/21 10:36 09/13/21 13:25 Temperature 98.2 F Temperature Source Temporal Pulse Rate 70 85 79 Respiratory Rate 16 16 Blood Pressure 170/100 H 127/92 H 129/88 H Blood Pressure Mean 123 103 101 Pulse Ox 99 97 Oxygen Delivery Method Room Air 09/13/21 14:59 Temperature Temperature Source Pulse Rate 79 Respiratory Rate Blood Pressure 139/79 H Blood Pressure Mean 99 Pulse Ox Oxygen Delivery Method Positive cachectic, unkempt and oriented x3 General Appearance ED: unkempt and cachectic Nutritional Appearance: cachectic HEENT Reports normocephalic and dry mucous membranes Mouth ED: Yes dry mucous membranes Mouth: dry mucous membranes Neck full ROM General: normal visual inspection Chest Wall inspection of chest normal Resp normal respiratory effort Cardio regular rate and regular rhythm GI soft to palpation, non-distended and no masses GI Narrative: Patient is 1 around in pain, patient is cachectic, under 100 pounds, patient's abdomen is skinny, patient does have pain throughout abdominal exam. Back/Spine no CVA tenderness, normal ROM and normal to inspection Neuro oriented x3 and CN's II-XII intact bilaterally Psych Appearance: unkempt <Dr. Alexander Hernandez MD - Last Filed: 09/13/21 12:10> Physical Exam Const Vital Signs: 09/13/21 08:57 09/13/21 10:36 09/13/21 13:25 Temperature 98.2 F Temperature Source Temporal Pulse Rate 70 85 79 Respiratory Rate 16 16 Blood Pressure 170/100 H 127/92 H 129/88 H Blood Pressure Mean 123 103 101 Pulse Ox 99 97 Oxygen Delivery Method Room Air 09/13/21 14:59 Temperature Temperature Source Pulse Rate 79 Respiratory Rate Blood Pressure 139/79 H Blood Pressure Mean 99 Pulse Ox Oxygen Delivery Method MDM <LIMA Reyna - Last Filed: 09/13/21 16:11> MDM Lab Data Labs: Laboratory Results - last 24 hr 09/13/21 09/13/21 09/13/21 09:52 09:52 09:52 WBC 11.1 H RBC 5.07 Hgb 15.5 Hct 45.7 MCV 90.1 D MCH 30.6 MCHC 33.9 D RDW Std Deviation 44.6 H RDW Coeff of Rashida 13.5 Plt Count 222 MPV 12.0 Immature Gran % (Auto) 0.400 Neut % (Auto) 84.2 H Lymph % (Auto) 7.6 L [place] % (Auto) 6.9 Eos % (Auto) 0.4 Baso % (Auto) 0.5 Absolute Neuts (auto) 9.3 H Absolute Lymphs (auto) 0.85 Nucleated RBC % 0 ESR < 1 Sodium 134 L Potassium 3.8 Chloride 102 Carbon Dioxide 21.0 Anion Gap 11 BUN 22 H Creatinine 1.15 Estim Creat Clear Calc 44.26 Est GFR (MDRD) Af Amer 83 Est GFR (MDRD) Non-Af 69 BUN/Creatinine Ratio 19.1 Glucose 92 Lactic Acid Calcium 8.9 Total Creatine Kinase C-React Prot Ext Range Lipase 65 L 09/13/21 09/13/21 12:30 12:30 WBC RBC Hgb Hct MCV MCH MCHC RDW Std Deviation RDW Coeff of Rashida Plt Count MPV Immature Gran % (Auto) Neut % (Auto) Lymph % (Auto) [place] % (Auto) Eos % (Auto) Baso % (Auto) Absolute Neuts (auto) Absolute Lymphs (auto) Nucleated RBC % ESR Sodium Potassium Chloride Carbon Dioxide Anion Gap BUN Creatinine Estim Creat Clear Calc Est GFR (MDRD) Af Amer Est GFR (MDRD) Non-Af BUN/Creatinine Ratio Glucose Lactic Acid 1.3 Calcium Total Creatine Kinase 83 C-React Prot Ext Range < 2.90 Lipase Radiography Diagnostic Testing: Clinical Impression(s) from Imaging Studies Abdomen/Pelvis CTA 09/13/21 10:05 IMPRESSION: Atherosclerotic plaques of the abdominal aorta as well as at the origin of the superior mesenteric and celiac arteries. Vascular stents are seen at the origin of the celiac artery and superior mesenteric artery. The vessels are patent. Findings suggestive of colitis involving the transverse colon as well as the descending colon. Electronically Signed: Ramon Miranda MD at 11:26 EDT , Treatment and Re-Evaluation Narrative: Patient arrives in severe abdominal pain, nausea vomiting. Patient was just recently discharged less than 24 hours ago for the same. I did speak with the building insulation installer who recommended a CTA of the abdomen, this suggested colitis involving transverse colon as well as the descending colon. Due to the patient's history of mesenteric bowel, the building insulation installer believe that he should be admitted to the hospital. Due to the patient possibly needing angiogram of the bowel to rule out mesenteric colitis the patient to be transferred to a tertiary hospital. Patient is excepted to the [facility] however this would not happen for at least 4 days, patient be admitted here under hospitalization here. Patient remained stable, patient was seen in the emergency department by the hospitalist. Patient stable for admission. <Dr. Alexander Hernandez MD - Last Filed: 09/13/21 12:10> [facility] Narrative Medical decision making narrative: 61-year-old gentleman that I am evaluating with our physician library technical assistant. 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 Is been having abdominal pain. Weight loss. He was admitted to the hospital yesterday and left around 4 PM. He was is again a CTA of his abdomen and pelvis and that time but he left prior to having that done. He is also complaining of nausea and vomiting. 61-year-old male no acute distress vital signs stable afebrile. More comfortable after treated with IV Dilaudid. Lungs are clear. Heart regular rhythm. Abdomen soft mildly tender no peritoneal signs no obstruction. No distention. No pulsatile mass. Labs his initial CBC shows a white count 11.1. H&H of 15 and 45. Electrolytes are unremarkable gap is 11 BUN 22 creatinine 1.1. Lipase is normal. CAT scan shows colitis of the transverse and descending colon is read by the radiologist. We spoke to the building insulation installer. We are awaiting additional labs and will then speak to the hospitalist about evaluation for possible admission. Lab Data Labs: Laboratory Results - last 24 hr 09/13/21 09/13/21 09/13/21 09:52 09:52 09:52 WBC 11.1 H RBC 5.07 Hgb 15.5 Hct 45.7 MCV 90.1 D MCH 30.6 MCHC 33.9 D RDW Std Deviation 44.6 H RDW Coeff of Rashida 13.5 Plt Count 222 MPV 12.0 Immature Gran % (Auto) 0.400 Neut % (Auto) 84.2 H Lymph % (Auto) 7.6 L [place] % (Auto) 6.9 Eos % (Auto) 0.4 Baso % (Auto) 0.5 Absolute Neuts (auto) 9.3 H Absolute Lymphs (auto) 0.85 Nucleated RBC % 0 ESR < 1 Sodium 134 L Potassium 3.8 Chloride 102 Carbon Dioxide 21.0 Anion Gap 11 BUN 22 H Creatinine 1.15 Estim Creat Clear Calc 44.26 Est GFR (MDRD) Af Amer 83 Est GFR (MDRD) Non-Af 69 BUN/Creatinine Ratio 19.1 Glucose 92 Lactic Acid Calcium 8.9 Total Creatine Kinase C-React Prot Ext Range Lipase 65 L 09/13/21 09/13/21 12:30 12:30 WBC RBC Hgb Hct MCV MCH MCHC RDW Std Deviation RDW Coeff of Rashida Plt Count MPV Immature Gran % (Auto) Neut % (Auto) Lymph % (Auto) [place] % (Auto) Eos % (Auto) Baso % (Auto) Absolute Neuts (auto) Absolute Lymphs (auto) Nucleated RBC % ESR Sodium Potassium Chloride Carbon Dioxide Anion Gap BUN Creatinine Estim Creat Clear Calc Est GFR (MDRD) Af Amer Est GFR (MDRD) Non-Af BUN/Creatinine Ratio Glucose Lactic Acid 1.3 Calcium Total Creatine Kinase 83 C-React Prot Ext Range < 2.90 Lipase Radiography Diagnostic Testing: Clinical Impression(s) from Imaging Studies Abdomen/Pelvis CTA 09/13/21 10:05 IMPRESSION: Atherosclerotic plaques of the abdominal aorta as well as at the origin of the superior mesenteric and celiac arteries. Vascular stents are seen at the origin of the celiac artery and superior mesenteric artery. The vessels are patent. Findings suggestive of colitis involving the transverse colon as well as the descending colon. Electronically Signed: Ramon Miranda MD at 11:26 EDT , Discharge Plan Triage Chief Complaint: Abd Pain ED Midlevel Provider: Trent Bentley ED Provider: Alexander Hernandez Dx/Rx/DC Orders Prescriptions: No Action clopidogrel 75 MG tablet 75 mg PO DAILY RF: 0 Hold Instructions: hold for five days, then resume rosuvastatin 10 MG tablet 10 mg PO QHS RF: 0 aspirin 81 MG tablet,chewable 81 mg PO DAILY RF: 0 Hold Instructions: hold for 5 days, then resume pantoprazole [Protonix] 40 mg tablet,delayed release (DR/EC) 40 mg PO BID Qty: 60 RF: 0 Primary Care Provider: Richard Dai Referrals: Richard Dai MD [Primary Care Provider] - Disposition Disposition: Acute Care Hospital [facility]
[2021-09-13 10:17] LABS: Anion Gap 11 (5-15); BUN 22 mg/dL (7-18); BUN/Creat Ratio 19.1 RATIO (10-20); Calcium,Total 8.9 mg/dL (8.5-10.1); Chloride 102 mmol/L (98-107); Creatinine, Serum 1.15 mg/dL (0.70-1.30); EST Glomerular Filtration Rate 69 mL/min (>60); Est Glom Filt Rate - Afr Amer 83 mL/min (>60); Estimated Creatinine Clearance 44.26 ml/min; Glucose 92 mg/dL (74-106); Lipase 65 U/L (73-393); Potassium 3.8 mmol/L (3.5-5.1); Sodium Level 134 mmol/L (136-145)
[2021-09-13] MEDS: Ondansetron 4 MG/2 ML Vial IV (10:32)
[2021-09-13] MEDS: 0.9% Normal Saline 1,000 ML 1000 ML IV (10:32)
[2021-09-13] MEDS: HYDROmorphone 1 MG/ML Syringe IV ×3 (10:33→23:36)
[2021-09-13 12:53] LABS: Erythrocyte Sedimentation Rate < 1 mm/hr (0-20)
[2021-09-13 13:04] LABS: CPK Total, Creatine Kinase 83 U/L (39-308); CRP < 2.90 mg/L (0.0-3.0)
[2021-09-13 13:18] LABS: Lactic Acid 1.3 mmol/L (0.4-1.9)
[2021-09-13] MEDS: Pantoprazole Sodium 40 MG Tablet PO ×2 (14:55→22:20)
--- NOTE | 2021-09-13 16:24 | PCM.HP.STD ---
Documented by User: Madelin Rosa NP, RANGE MANAGEMENT SPECIALIST-C 09/13/21 16:55 HPI - General HPI Narrative RAJENDRA HOFFMAN, is a 61 M who presents to the Emergency Room due to abdominal pain. Patient was discharged yesterday, 09/12/2021 following work-up for abdominal pain. 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 Patient states he has had recurrent abdominal pain for the past 12 years since having his gallbladder removed and typically gets abdominal pain and attacks every 3 to 4 months. 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 He states following stent placement, he had improvement in symptoms since being placed about 3 years ago. Patient states he has not eaten in 5 days and reports recent significant weight loss. Patient states he was feeling better yesterday when he was discharged however reports worsening abdominal pain upon returning home with coffee-ground emesis. GI recommended transfer to F given history of mesenteric bowel and possibly needing angiogram to rule out mesenteric colitis. Patient accepted however no bed available. [facility] Medical History (Updated 09/13/21 @ 14:23 by Kristine Cedillo) GI bleed Migraines Smoker Ulcer Home Medications clopidogrel 75 mg PO DAILY 09/23/16 [History Last Taken 09/11/21] rosuvastatin 10 mg PO QHS 06/08/18 [History Last Taken 09/12/21] aspirin 81 mg PO DAILY 08/18/18 [History Last Taken 09/11/21] pantoprazole [Protonix] 40 mg PO BID 09/13/21 [History Last Taken 09/13/21] Allergy/AdvReac Type Severity Reaction Status Date / Time omeprazole AdvReac Other Verified 09/13/21 08:57 Family History (Updated 09/13/21 @ 16:37 by Madelin Rosa NP, RANGE MANAGEMENT SPECIALIST-C) Father Colon cancer Mother No cardiac disease Surgical History History of cholecystectomy Social History (Updated 09/13/21 @ 16:38 by Madelin Rosa NP, RANGE MANAGEMENT SPECIALIST-C) Smoking Status: Current every day smoker tobacco type: cigarettes alcohol intake: current details: occasional use substance use type: does not use ROS Constitutional Constitutional: Reports change in weight and fatigue; Denies chills, fever(s) or weakness Cardiovascular Cardiovascular: Denies chest pain, edema, lightheadedness, palpitations or syncope Respiratory/Chest Respiratory/Chest: Denies cough, dyspnea, productive cough, shortness of breath at rest, shortness of breath with exertion or wheezing Gastrointestinal Gastrointestinal: Reports abdominal pain, nausea and vomiting; Denies constipation or diarrhea Genitourinary Genitourinary: Denies burning urination, difficulty urinating, dysuria, hematuria, urinary frequency, urinary incontinence or urinary urgency Musculoskeletal Musculoskeletal: Denies back pain, joint pain or muscle weakness Integumentary Integumentary: Denies erythema, lesions, rash or wounds Neurologic Neurologic: Denies abnormal speech, confusion, dizziness, focal weakness, numbness, paresthesias, seizure-like activity or syncope Psychiatric Psychiatric: Denies anxiety or depression Hematologic/Lymphatic Hematologic/Lymphatic: Denies anemia, easy bleeding or easy bruising Allergic/Immunologic Allergic/Immunologic: Denies hives or asthma Vital Signs Vital Signs Vital Signs: 09/13/21 08:57 09/13/21 10:36 09/13/21 13:25 Temperature 98.2 F Temperature Source Temporal Pulse Rate 70 85 79 Respiratory Rate 16 16 Blood Pressure 170/100 H 127/92 H 129/88 H Blood Pressure Mean 123 103 101 Pulse Ox 99 97 Oxygen Delivery Method Room Air 09/13/21 14:59 Temperature Temperature Source Pulse Rate 79 Respiratory Rate Blood Pressure 139/79 H Blood Pressure Mean 99 Pulse Ox Oxygen Delivery Method Weight Weight: 101 lb Body Mass Index (BMI) 14.5 Physical Exam Const alert, oriented x3 and no apparent distress Orientation / Consciousness: awake, oriented to person, oriented to place and oriented to time Nutritional Appearance: cachectic HEENT normocephalic Mouth: dry mucous membranes Eyes PERRL, EOMs intact bilaterally and conjunctivae normal Neck no lymphadenopathy Resp normal respiratory effort and clear to auscultation bilaterally Cardio regular rate, regular rhythm and no murmurs Peripheral Pulses: pulses 2+ throughout GI normal to inspection, nondistended, normoactive bowel sounds and non-distended Palpation: tender Extremity normal to inspection Skin no rashes or lesions noted Lesions: no lesions Rashes: no rashes Trauma: no lacerations or abrasions Neuro CN's II-XII intact bilaterally, no focal motor deficits, no sensory deficits noted and deep tendon reflexes 2+ bilaterally Psych mental status grossly normal and affect normal Results Lab / Micro Data Result Diagrams: 09/13/21 09:52 09/13/21 09:52 Labs: Laboratory Results - last 24 hr 09/13/21 09:52: WBC 11.1 H, RBC 5.07, Hgb 15.5, Hct 45.7, MCV 90.1 D, MCH 30.6, MCHC 33.9 D, RDW Std Deviation 44.6 H, RDW Coeff of Rashida 13.5, Plt Count 222, MPV 12.0, Immature Gran % (Auto) 0.400, Neut % (Auto) 84.2 H, Lymph % (Auto) 7.6 L, [place] % (Auto) 6.9, Eos % (Auto) 0.4, Baso % (Auto) 0.5, Absolute Neuts (auto) 9.3 H, Absolute Lymphs (auto) 0.85, Nucleated RBC % 0 09/13/21 09:52: Sodium 134 L, Potassium 3.8, Chloride 102, Carbon Dioxide 21.0, Anion Gap 11, BUN 22 H, Creatinine 1.15, Estim Creat Clear Calc 44.26, Est GFR (MDRD) Af Amer 83, Est GFR (MDRD) Non-Af 69, BUN/Creatinine Ratio 19.1, Glucose 92, Calcium 8.9, Lipase 65 L 09/13/21 09:52: ESR < 1 09/13/21 12:30: Lactic Acid 1.3 09/13/21 12:30: Total Creatine Kinase 83, C-React Prot Ext Range < 2.90 Micro: Microbiology 09/13/21 14:45 Nasal Secretion SARS-CoV-2 Antigen (Rapid) - Final Radiology Impression Abdomen/Pelvis CTA 09/13/21 10:05 IMPRESSION: Atherosclerotic plaques of the abdominal aorta as well as at the origin of the superior mesenteric and celiac arteries. Vascular stents are seen at the origin of the celiac artery and superior mesenteric artery. The vessels are patent. Findings suggestive of colitis involving the transverse colon as well as the descending colon. Electronically Signed: Ramon Miranda MD at 11:26 EDT , Assessment & Plan Assessment/Plan (1) Abdominal pain: PLAN: 1. 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 Continue PPI, Carafate. IV Solu-Medrol for suspected colitis. 2. History of celiac/mesenteric occlusion status post stents- GI recommending transfer to F given history of mesenteric bowel and possibly needing angiogram to rule out mesenteric colitis. Patient accepted however no bed available. 3. Tobacco dependence-encouraged cessation. As needed nicotine gum. 4. Severe protein calorie malnutrition-as evidenced by cachectic appearance, BMI 14, evidence of muscle and fat loss, recent weight loss, poor oral intake. Dietitian consulted for recommendations. DVT prophylaxis- SCDs This patient was seen by Madelin Rosa NP-Vicente under the supervision of Dr. Jefferson. Time spent examining patient, reviewing data and subsequent management of care: 16 Minutes Documented by User: Dr. Pierre Jefferson DO 09/13/21 18:23 HPI - General General Date of Admission: 09/13/21 [facility] Medical History (Updated 09/13/21 @ 14:23 by Kristine Cedillo) GI bleed Migraines Smoker Ulcer Home Medications clopidogrel 75 mg PO DAILY 09/23/16 [History Last Taken 09/11/21] rosuvastatin 10 mg PO QHS 06/08/18 [History Last Taken 09/12/21] aspirin 81 mg PO DAILY 08/18/18 [History Last Taken 09/11/21] pantoprazole [Protonix] 40 mg PO BID 09/13/21 [History Last Taken 09/13/21] Allergy/AdvReac Type Severity Reaction Status Date / Time omeprazole AdvReac Other Verified 09/13/21 08:57 Family History (Updated 09/13/21 @ 16:37 by Madelin Rosa NP, RANGE MANAGEMENT SPECIALIST-C) Father Colon cancer Mother No cardiac disease Surgical History History of cholecystectomy Social History (Updated 09/13/21 @ 16:38 by Madelin Rosa NP, RANGE MANAGEMENT SPECIALIST-C) Smoking Status: Current every day smoker tobacco type: cigarettes alcohol intake: current details: occasional use substance use type: does not use Results Lab / Micro Data Result Diagrams: 09/13/21 09:52 09/13/21 09:52 Charges/Coding Addendum Addendum: Patient was seen and examined today independently of Madelin Rosa, he came back to the ER today at [facility] for evaluation of continued abdominal pain. Lab work was obtained in the emergency room, white blood cell count was elevated 11.1, chemistry panel was abnormal for sodium of 134 and a BUN of 22. Lipase was 65. Patient had a CT of the abdomen and pelvis which showed vascular stents which were patent and the celiac artery and superior mesenteric artery. There were findings suggestive of colitis involving the transverse colon as well as the descending colon. I talked with gastroenterology and they advised initially shipping the patient to another facility so that he could have a conventional angiogram of the abdomen, unfortunately, we were not able to locate a bed for this patient and I called gastroenterology (Dr. Medina) again and he stated that the patient could be admitted here and treated with IV corticosteroids, he stated that he would not place the patient on IV antibiotics. On examination he appeared in good health and spirits. Vital signs as documented. Skin warm and dry and without overt rashes. Neck without JVD, neck was supple, trachea midline, thyroid was normal. Lungs clear bilaterally, normal air movement was noted. Heart exam notable for regular rhythm, normal sounds and absence of murmurs, rubs or gallops. Abdomen-patient has diffuse abdominal tenderness over the upper abdominal area and epigastric area, there is no rebound abdominal tenderness.. Bowel sounds are present, abdomen is not distended. Extremities nonedematous, no cyanosis was noted, no clubbing was noted. Neuro: Cranial nerves II through XII are grossly intact, no focal motor deficits were noted, sensation to light touch and pinprick intact, motor exam 5/5 throughout. Psych: Patient is alert and oriented x3, he does not appear anxious or depressed, he does not appear agitated. Impression: #1 generalized abdominal pain-etiology unclear at this point-possibly secondary to colitis-patient will be admitted to PCU, he will be given IV corticosteroids and IV pain medications as well as IV fluids. Gastroenterology will be consulted if the patient does not improve with treatment. #2 severe protein and caloric malnutrition-patient will be seen by nutritional services #3 gastritis-patient will be maintained on IV Protonix and Carafate #4 duodenitis-patient will be maintained on IV Protonix and Carafate I have reviewed Madelin Rosa's history and physical including her medical assessment and plan of care and with the above additions endorse it. Total clinical time spent by myself addressing the patient's issues, reviewing the patient's medical data, and collaborating with the patient's care team: 55 minutes Visit Charges Inpatient E&M: 29207 Init Hosp L3
--- NOTE | 2021-09-13 16:42 | CASEMGMT ---
RN CM Assessment Introduced role of RN CM to patient.? Patient is alert, oriented and able?to participate in RN CM Assessment. ?Care providers, pharmacy, and demographics verified. Admit Dx: IP for Abd pain, Colitis Re-Admit: No. Was OBS 09/12 for vomiting. Barriers/Issues: None PCP: Richard Dai Specialists: GI- Friend (just started seeing), Pain- Real Preferred Pharmacy: [facility] or [facility] Insurance: MMO Rx Benefit:?Yes LNOK: Estrella Leal LW/HPOA: Both on file with [facility]. HPOA- Estrella Leal Living Arrangements:? Lives with in a [facility]. 3 steps to enter home. ADL?s: Independent with ambulation and ADLs Transportation: Both patient and drive DME: None HHC: None SNF: None Goal: Home and does not think will have any needs, issues or concerns with going home. Aware RNCM will continue to follow should any needs arise. DC PLAN: Home and no anticipated needs identified at this time. [facility]
[2021-09-13] MEDS: 0.9% Normal Saline 1,000 ML 100 ML IV (17:30)
[2021-09-13 17:56] LABS: International Normalized Ratio 1.2; Prothrombin Time (Protime)PT. 14.2 SECONDS (11.7-14.9)
[2021-09-13] MEDS: Sucralfate 1 GM Tablet PO (22:20)
[2021-09-13] MEDS: Atorvastatin Calcium 20 MG Tablet PO (22:20)
[2021-09-14] VITALS (7 sets, daily range): BP systolic 103–131; BP diastolic 67–92; PULSE 61–69; RESP 12–18; TEMP 36.7–37.2; O2SAT 95–99
[2021-09-14] MEDS: 0.9% Normal Saline 1,000 ML 100 ML IV ×3 (02:49→20:36)
[2021-09-14 05:01] LABS: Absolute Neutrophil Count 4.6 X10^3/uL (2.0-7.7); Basophil# 0.02 X10^3/uL; Basophil% 0.4 % (0-1); Eosinophil# 0.03 X10^3/uL; Eosinophils% 0.5 % (0-5); Hematocrit 38.9 % (40-54); Lymphocyte % 12.6 % (19-41); Mean Corpuscular Hgb 31.2 pg (27.0-32.0); Mean Corpuscular Volume 86.6 fL (80-94); Mean Platelet Vol. 12.4 fl (6.2-12.0); Monocyte# 0.17 X10^3/uL; Monocyte% 3.1 % (0-10); NRBC Flagged by Analyzer 0 % (0-5); Platelet Count 187 K/mm3 (150-450); RBC Distribution Width CV 13.2 % (11.6-14.6); RBC Distribution Width SD 41.9 fl (35.1-43.9); Red Blood Count 4.49 M/mm3 (4.6-6.2); White Blood Count 5.5 K/mm3 (4.4-11.0)
[2021-09-14] MEDS: Ondansetron 4 MG/2 ML Vial IV ×2 (05:53→13:37)
[2021-09-14] MEDS: HYDROmorphone 1 MG/ML Syringe IV ×3 (05:53→17:54)
[2021-09-14] MEDS: 0.9% Saline Lock 10 ML Syringe IV (05:53)
[2021-09-14] MEDS: Sucralfate 1 GM Tablet PO ×4 (08:43→20:36)
[2021-09-14] MEDS: Pantoprazole Sodium 40 MG Tablet PO ×2 (08:43→20:36)
[2021-09-14] MEDS: Clopidogrel Bisulfate 75 MG Tablet PO (08:43)
--- NOTE | 2021-09-14 11:32 | PCM.PN.HOSP ---
Documented by User: Madelin Rosa NP, DINNER COOK-C 09/14/21 11:37 Subjective Subjective Patient seen and examined. Reports improvement in abdominal pain. Denies nausea, vomiting. Attempting regular diet for breakfast this morning. No issues thus far. Objective Data Objective Data Vital Signs: Vital Signs Temp Pulse Resp BP Pulse Ox 98.7 F 61 12 110/73 99 09/14/21 08:37 09/14/21 08:37 09/14/21 08:37 09/14/21 08:37 09/14/21 08:37 Oxygen Delivery Method Room Air Weight: 102 lb 8.239 oz Body Mass Index (BMI) 14.7 Intake & Output: Intake and Output for Last 24 Hours 09/12/21 09/13/21 09/14/21 23:59 23:59 23:59 Intake Total 1000 / 1000 1171.67 / 1171.67 Balance 1000 / 1000 1171.67 / 1171.67 Lab / Micro Data Result Diagrams: 09/14/21 04:44 09/13/21 09:52 Labs: Laboratory Results - last 24 hr 09/13/21 09:52: ESR < 1 09/13/21 12:30: Lactic Acid 1.3 09/13/21 12:30: Total Creatine Kinase 83, C-React Prot Ext Range < 2.90 09/13/21 17:16: PT 14.2, INR 1.2 09/14/21 04:44: WBC 5.5, RBC 4.49 L, Hgb 14.0, Hct 38.9 L, MCV 86.6, MCH 31.2, MCHC 36.0 D, RDW Std Deviation 41.9, RDW Coeff of Rashida 13.2, Plt Count 187, MPV 12.4 H, Immature Gran % (Auto) 0.400, Neut % (Auto) 83.0 H, Lymph % (Auto) 12.6 L, Faulk % (Auto) 3.1, Eos % (Auto) 0.5, Baso % (Auto) 0.4, Absolute Neuts (auto) 4.6, Absolute Lymphs (auto) 0.70 L, Nucleated RBC % 0 Micro: Microbiology 09/13/21 14:45 Nasal Secretion SARS-CoV-2 Antigen (Rapid) - Final Physical Exam Const alert, oriented x3 and no apparent distress Orientation / Consciousness: awake, oriented to person, oriented to place and oriented to time Nutritional Appearance: cachectic HEENT normocephalic and moist oral mucous membranes Eyes PERRL, EOMs intact bilaterally and conjunctivae normal Neck no lymphadenopathy Resp clear to auscultation bilaterally Auscultation: diminished lung sounds Cardio regular rate, regular rhythm and no murmurs Peripheral Pulses: pulses 2+ throughout GI normal to inspection, nondistended, normoactive bowel sounds and non-distended Palpation: tender Extremity normal to inspection Skin no rashes or lesions noted Lesions: no lesions Rashes: no rashes Trauma: no lacerations or abrasions Neuro CN's II-XII intact bilaterally, no focal motor deficits, no sensory deficits noted and deep tendon reflexes 2+ bilaterally Psych mental status grossly normal and affect normal Assessment & Plan Assessment/Plan (1) Abdominal pain: PLAN: 1. 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 Continue PPI, Carafate. IV Solu-Medrol for suspected colitis. 2. History of celiac/mesenteric occlusion status post stents- GI recommending transfer to [facility] given history of mesenteric bowel and possibly needing angiogram to rule out mesenteric colitis. Patient accepted however no bed available. On plavix. 3. Tobacco dependence-encouraged cessation. As needed nicotine gum. 4. Severe protein calorie malnutrition-as evidenced by cachectic appearance, BMI 14, evidence of muscle and fat loss, recent weight loss, poor oral intake. Dietitian consulted for recommendations. DVT prophylaxis- SCDs This patient was seen by Madelin Rosa NP-C under the supervision of Dr. Jefferson. Discharge planning: Awaiting bed at [facility]. Time spent examining patient, reviewing data and subsequent management of care: 12 Minutes Documented by User: Dr. Pierre Jefferson DO 09/15/21 11:25 Objective Data Lab / Micro Data Result Diagrams: 09/14/21 04:44 09/13/21 09:52 Charges/Coding Addendum Addendum: Patient was seen and examined on 09/14/2021 independently of Madelin Rosa, he still complains of mid abdominal discomfort but would like to try to eat today. I change his diet to regular diet, patient was inquiring as to whether he is on the transfer list to go to the [facility], I told him I did not know if he was still on the transfer list but subsequently we found out that he still is, I have elected to leave him on the transfer list at this time in case his condition worsens. On examination he appeared in good health and spirits. Vital signs as documented. Skin warm and dry and without overt rashes. Neck without JVD, neck was supple, trachea midline, thyroid was normal. Lungs clear bilaterally, normal air movement was noted. Heart exam notable for regular rhythm, normal sounds and absence of murmurs, rubs or gallops. Abdomen-mildly tender to palpation in the mid abdominal area and without evidence of organomegaly, masses, or abdominal aortic enlargement. Bowel sounds are present, abdomen is not distended. Extremities nonedematous, no cyanosis was noted, no clubbing was noted. Neuro: Cranial nerves II through XII are grossly intact, no focal motor deficits were noted, sensation to light touch and pinprick intact, motor exam 5/5 throughout. Psych: Patient is alert and oriented x3, he does not appear anxious or depressed, he does not appear agitated. #1 generalized abdominal pain-etiology unclear at this point-possibly secondary to colitis-continue present therapy at this time including IV corticosteroids and fluid #2 severe protein and caloric malnutrition-patient will be seen by nutritional services #3 gastritis-patient will be maintained on IV Protonix and Carafate #4 duodenitis-patient will be maintained on IV Protonix and Carafate I have reviewed Madelinkevin Rosa's progress note including her medical assessment and plan of care and with the above additions endorse it. Total clinical time spent by myself addressing the patient's medical issues, reviewing the patient's medical data, and collaborating with the patient's care team: 20 minutes Visit Charges Inpatient E&M: 73383 Subs Hosp L2
[2021-09-14] MEDS: Ensure Clear 120 ML Liquid PO (13:32)
--- NOTE | 2021-09-14 15:54 | CHAPLAIN ---
Type of Pastoral Visit _x__ Initial Visit ___ Follow-up Visit ___ On-call Visit ___ General Patient Visit ___ Spiritual Assessment ___ Family Conference ___ Bereavement ___ Rapid Response ___ Code Blue ___ Other (describe below) Pastoral Care Referral From _x__ Patient ___ Family ___ Nurse ___ Physician ___ [employer] Officer ___ Staff [employer] Officer ___ Other (describe below) Sacrament/Intervention _x__ Active listening ___ Anointing ___ Yazdanism ___ Bereavement ___ Communion ___ Lauren exploration ___ _x__ Life review _x__ Prayer ___ Reconciliation ___ Sacrament of Sick _x__ Supportive presence ___ Wedding ___ Other (describe below) Pastoral Comments patient appears to be pacing the floor and gets back into bed; when asked how he was the patient begins by I don't want to talk about it because it is negative and I need positive thoughts right now; but pt then speaks about his long history of illness and the frustration of not getting answers or the treatment that he believes he needs; pt gives lots of life history; pt goal is to get answers and to get the help he needs; pt was willing to have a prayer said and added my boss and I pray every day and he is the only employer I've had that actually calls to check up on me
[2021-09-14] MEDS: Atorvastatin Calcium 20 MG Tablet PO (20:36)
[2021-09-15 02:30] VITALS: BP 119/71; PULSE 63; RESP 18; TEMP 36.8; O2SAT 99
[2021-09-15] MEDS: Sucralfate 1 GM Tablet PO ×4 (06:11→20:32)
[2021-09-15] MEDS: 0.9% Normal Saline 1,000 ML 100 ML IV ×2 (06:11→16:22)
[2021-09-15] MEDS: Pantoprazole Sodium 40 MG Tablet PO ×2 (06:15→20:32)
[2021-09-15 06:16] VITALS: BP 120/73; PULSE 65; RESP 18; TEMP 36.7; O2SAT 98
[2021-09-15] MEDS: Ondansetron 4 MG/2 ML Vial IV ×2 (06:52→15:49)
[2021-09-15] MEDS: HYDROmorphone 1 MG/ML Syringe IV ×3 (06:52→20:35)
[2021-09-15] MEDS: Clopidogrel Bisulfate 75 MG Tablet PO (09:54)
[2021-09-15] MEDS: Ensure Clear 120 ML Liquid PO (09:54)
--- NOTE | 2021-09-15 11:36 | PN.HOSP_ITS ---
Documented by User: Madelin Rosa PERL PROGRAMMER, PERL PROGRAMMER-C 09/15/21 11:37 Subjective Subjective Patient seen and examined. Reports abdominal cramping following eating. Reports abdominal pain overall is improved. Denies nausea, vomiting. Objective Data Objective Data Vital Signs: Vital Signs Temp Pulse Resp BP Pulse Ox 98.0 F 65 18 120/73 98 09/15/21 06:16 09/15/21 06:16 09/15/21 06:16 09/15/21 06:16 09/15/21 06:16 Oxygen Delivery Method Room Air Weight: 102 lb 8.239 oz Body Mass Index (BMI) 14.7 Intake & Output: Intake and Output for Last 24 Hours 09/13/21 09/14/21 09/15/21 23:59 23:59 23:59 Intake Total 1000 / 1000 4070.01 / 4430.01 1558.33 / 1558.33 Balance 1000 / 1000 4070.01 / 4430.01 1558.33 / 1558.33 Medical Nutrition Assessment Dietitian: Malnutrition Criteria Met Start: 09/14/21 13:08 Freq: Status: Active Protocol: Document 09/14/21 12:55 AG (Rec: 09/14/21 13:09 [id number]) Nutrition Malnutrition Evidence of Malnutrition Exists Yes Malnutrition (severe): Chronic Evidenced By Suboptimal Energy Intake ( Severe),Weight Loss (Severe), Physical Changes (Severe) Clinical Problem Chronic Disease or Condition Related Malnutrition Etiology severe, chronic malnutrition r /t GI dysfunction Signs/Symptoms as evidenced by estimated PO intake meeting <75% of estimated energy needs >3 months; unintentional wt loss of 17.5#/15% <6 months; severe muscle wasting and fat loss in orbital area, triceps, clavicles, temples, and thigh per physical exam; BMI 14.7 Status Active Problem Recommendation Dietitian Recommendations/Changes continue regular diet as tolerated; may benefit from transitional diet if unable to tolerate regular diet. Will change ONS from Ensure Clear to Ensure Enlive. Close monitoring of electrolytes given risk for refeeding syndrome Lab / Micro Data Result Diagrams: 09/14/21 04:44 09/13/21 09:52 Micro: Microbiology 09/13/21 14:45 Nasal Secretion SARS-CoV-2 Antigen (Rapid) - Final Physical Exam Const alert, oriented x3 and no apparent distress Orientation / Consciousness: awake, oriented to person, oriented to place and oriented to time Nutritional Appearance: cachectic HEENT normocephalic and moist oral mucous membranes Eyes PERRL, EOMs intact bilaterally and conjunctivae normal Neck no lymphadenopathy Resp clear to auscultation bilaterally Auscultation: diminished lung sounds Cardio regular rate, regular rhythm and no murmurs Peripheral Pulses: pulses 2+ throughout GI normal to inspection, nondistended, normoactive bowel sounds and non-distended Palpation: tender Extremity normal to inspection Skin no rashes or lesions noted Lesions: no lesions Rashes: no rashes Trauma: no lacerations or abrasions Neuro CN's II-XII intact bilaterally, no focal motor deficits, no sensory deficits noted and deep tendon reflexes 2+ bilaterally Psych mental status grossly normal and affect normal Assessment & Plan Assessment/Plan (1) Abdominal pain: PLAN: 1. 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 Continue PPI, Carafate. IV Solu-Medrol. 2. History of celiac/mesenteric occlusion status post stents- GI recommending transfer to [facility] given history of mesenteric bowel and possibly needing angiogram to rule out mesenteric colitis. Patient accepted however no bed available. On plavix. 3. Tobacco dependence-encouraged cessation. As needed nicotine gum. 4. Severe protein calorie malnutrition-as evidenced by cachectic appearance, BMI 14, evidence of muscle and fat loss, recent weight loss, poor oral intake. Dietitian consulted for recommendations. DVT prophylaxis- SCDs This patient was seen by Madelin Rosa NP-Vicente under the supervision of Dr. Jeffreson. Discharge planning: Awaiting bed at [facility]. Time spent examining patient, reviewing data and subsequent management of care: 10 Minutes Documented by User: Dr. Pierre Jefferson, 09/15/21 12:26 Objective Data Lab / Micro Data Result Diagrams: 09/14/21 04:44 09/13/21 09:52 Charges/Coding Addendum Addendum: Patient was seen and examined today independently of Madelin Rosa, he still complains of abdominal discomfort in the mid abdominal area just below the xiphoid process, he also says however that he has been tender in that area for several years since he had his gallbladder removed-there is a laparoscopic surgical scar present there that is well-healed. On examination he appeared in good health and spirits. Vital signs as documented. Skin warm and dry and without overt rashes. Neck without JVD, neck was supple, trachea midline, thyroid was normal. Lungs clear bilaterally, normal air movement was noted. Heart exam notable for regular rhythm, normal sounds and absence of murmurs, rubs or gallops. Abdomen-mildly tender to palpation, without evidence of organomegaly, masses, or abdominal aortic enlargement. Bowel sounds are present, abdomen is not distended. Extremities nonedematous, no cyanosis was noted, no clubbing was noted. Neuro: Cranial nerves II through XII are grossly intact, no focal motor deficits were noted, sensation to light touch and pinprick intact, motor exam 5/5 throughout. Psych: Patient is alert and oriented x3, he does not appear anxious or depressed, he does not appear agitated. #1 generalized abdominal pain-etiology unclear at this point-possibly secondary to colitis-continue present therapy at this time including IV corticosteroids and fluids #2 severe protein and caloric malnutrition-patient will be seen by nutritional services #3 gastritis-patient will be maintained on IV Protonix and Carafate #4 duodenitis-patient will be maintained on IV Protonix and Carafate I have reviewed Madelin Rosa's progress note including her medical assessment and plan of care and with the above additions endorse it. Total clinical time spent by myself addressing the patient's medical issues, reviewing the patient's medical data, and collaborating with the patient's care team: 20 minutes Visit Charges Inpatient E&M: 76139 Subs Hosp L2
[2021-09-15 12:00] VITALS: BP 139/89; PULSE 66; RESP 18; TEMP 36.8; O2SAT 99
[2021-09-15 18:00] VITALS: BP 138/91; PULSE 63; RESP 18; TEMP 36.7; O2SAT 98
[2021-09-15 20:30] VITALS: BP 144/85; PULSE 65; RESP 18; TEMP 36.6; O2SAT 99
[2021-09-15] MEDS: Atorvastatin Calcium 20 MG Tablet PO (20:32)
[2021-09-15] MEDS: 0.9% Saline Lock 10 ML Syringe IV (20:36)
[2021-09-16] MEDS: Ondansetron 4 MG/2 ML Vial IV ×2 (01:04→19:42)
[2021-09-16] MEDS: HYDROmorphone 1 MG/ML Syringe IV ×4 (01:04→19:42)
[2021-09-16 01:06] VITALS: BP 102/70; PULSE 79; RESP 18; TEMP 37; O2SAT 97
[2021-09-16] MEDS: 0.9% Normal Saline 1,000 ML 100 ML IV ×3 (01:06→19:42)
[2021-09-16] MEDS: Sucralfate 1 GM Tablet PO ×4 (06:24→21:31)
[2021-09-16 06:25] VITALS: BP 105/71; PULSE 60; RESP 16; TEMP 36.7; O2SAT 94
[2021-09-16] MEDS: 0.9% Saline Lock 10 ML Syringe IV ×2 (08:36→13:15)
[2021-09-16 08:37] VITALS: BP 122/75; PULSE 72; RESP 16; TEMP 36.7; O2SAT 98
[2021-09-16] MEDS: Pantoprazole Sodium 40 MG Tablet PO ×2 (09:03→21:32)
[2021-09-16] MEDS: Clopidogrel Bisulfate 75 MG Tablet PO (09:07)
[2021-09-16] MEDS: Ensure Clear 120 ML Liquid PO ×4 (10:36→21:33)
[2021-09-16] MEDS: Docusate Sodium 100 MG Capsule 200 MG PO (10:37)
[2021-09-16] MEDS: Lactulose 20 GM/30 ML UDC 30 GM PO (11:34)
--- NOTE | 2021-09-16 12:44 | PN.HOSP_ITS ---
Documented by User: Madelin Rosa NP, DRY CLEANING COUNTER CLERK-C 09/16/21 12:49 Subjective Subjective Patient seen and examined. Reports worsening abdominal pain today. Feels his symptoms would improve if he was able to have a bowel movement. Initiated on bowel regimen. Awaiting bed at [facility]. He denies nausea, vomiting. Objective Data Objective Data Vital Signs: Vital Signs Temp Pulse Resp BP Pulse Ox 98.1 F 72 16 122/75 H 98 09/16/21 08:37 09/16/21 08:37 09/16/21 08:37 09/16/21 08:37 09/16/21 08:37 Oxygen Delivery Method Room Air Weight: 102 lb 8.239 oz Body Mass Index (BMI) 14.7 Intake & Output: Intake and Output for Last 24 Hours 09/14/21 09/15/21 09/16/21 23:59 23:59 23:59 Intake Total 4070.01 / 4430.01 2558.33 / 2558.33 2740.00 / 2740.00 Balance 4070.01 / 4430.01 2558.33 / 2558.33 2740.00 / 2740.00 Medical Nutrition Assessment Dietitian: Malnutrition Criteria Met Start: 09/14/21 13:08 Freq: Status: Active Protocol: Document 09/14/21 12:55 AG (Rec: 09/14/21 13:09 [id number]) Nutrition Malnutrition Evidence of Malnutrition Exists Yes Malnutrition (severe): Chronic Evidenced By Suboptimal Energy Intake ( Severe),Weight Loss (Severe), Physical Changes (Severe) Clinical Problem Chronic Disease or Condition Related Malnutrition Etiology severe, chronic malnutrition r /t GI dysfunction Signs/Symptoms as evidenced by estimated PO intake meeting <75% of estimated energy needs >3 months; unintentional wt loss of 17.5#/15% <6 months; severe muscle wasting and fat loss in orbital area, triceps, clavicles, temples, and thigh per physical exam; BMI 14.7 Status Active Problem Recommendation Dietitian Recommendations/Changes continue regular diet as tolerated; may benefit from transitional diet if unable to tolerate regular diet. Will change ONS from Ensure Clear to Ensure Enlive. Close monitoring of electrolytes given risk for refeeding syndrome Lab / Micro Data Result Diagrams: 09/14/21 04:44 09/13/21 09:52 Micro: Microbiology 09/13/21 14:45 Nasal Secretion SARS-CoV-2 Antigen (Rapid) - Final Physical Exam Const alert, oriented x3 and no apparent distress Orientation / Consciousness: awake, oriented to person, oriented to place and oriented to time Nutritional Appearance: cachectic HEENT normocephalic Mouth: dry mucous membranes Eyes PERRL, EOMs intact bilaterally and conjunctivae normal Neck no lymphadenopathy Resp clear to auscultation bilaterally Auscultation: diminished lung sounds Cardio regular rate, regular rhythm and no murmurs Peripheral Pulses: pulses 2+ throughout GI normal to inspection, nondistended, normoactive bowel sounds and non-distended Palpation: tender Extremity normal to inspection Skin no rashes or lesions noted Lesions: no lesions Rashes: no rashes Trauma: no lacerations or abrasions Neuro CN's II-XII intact bilaterally, no focal motor deficits, no sensory deficits noted and deep tendon reflexes 2+ bilaterally Psych mental status grossly normal and affect normal Assessment & Plan Assessment/Plan (1) Abdominal pain: PLAN: 1. 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 Continue PPI, Carafate. IV Solu-Medrol. 2. History of celiac/mesenteric occlusion status post stents- GI recommending transfer to [facility] given history of mesenteric bowel and possibly needing angiogram to rule out mesenteric colitis. Patient accepted however no bed available. On plavix. 3. Tobacco dependence-encouraged cessation. As needed nicotine gum. 4. Severe protein calorie malnutrition-as evidenced by cachectic appearance, BMI 14, evidence of muscle and fat loss, recent weight loss, poor oral intake. Dietitian consulted for recommendations. 5. Obstipation-initiated on bowel regimen. DVT prophylaxis- SCDs This patient was seen by LIMA Barker under the supervision of Dr. Jefferson. Discharge planning: Awaiting bed at [facility]. Time spent examining patient, reviewing data and subsequent management of care: 10 Minutes Documented by User: Dr. Pierre Jefferson DO 09/16/21 17:29 Objective Data Lab / Micro Data Result Diagrams: 09/14/21 04:44 09/13/21 09:52 Charges/Coding Addendum Addendum: Patient was seen and examined today independently of Madelin Rosa, he continues to complain that he cannot eat any solid foods, he is only intaking liquids. Patient is continuing to get IV narcotics for his abdominal discomfort. He complained of constipation earlier today and I placed him on lactulose, he did have a bowel movement after taking the lactulose. On examination he appeared in good health and spirits. Vital signs as documented. Skin warm and dry and without overt rashes. Neck without JVD, neck was supple, trachea midline, thyroid was normal. Lungs clear bilaterally, normal air movement was noted. Heart exam notable for regular rhythm, normal sounds and absence of murmurs, rubs or gallops. Abdomen-patient had mid abdominal t enderness to palpation, bowel sounds are present in all 4 quadrants, no rebound abdominal tenderness are noted, abdomen is not distended. Extremities nonedematous, no cyanosis was noted, no clubbing was noted. Neuro: Cranial nerves II through XII are grossly intact, no focal motor deficits were noted, sensation to light touch and pinprick intact, motor exam 5/5 throughout. Psych: Patient is alert and oriented x3, he does not appear anxious or depressed, he does not appear agitated. #1 generalized abdominal pain-etiology unclear at this point-possibly secondary to colitis-continue present therapy at this time including IV corticosteroids and fluids #2 severe protein and caloric malnutrition-as evidenced by estimated p.o. intake meeting less than 75% of estimated energy needs over more than 3 months, unintentional weight loss of 17.5 pounds over less than 6 months, severe muscle wasting and fat loss in orbital areas triceps clavicles temples and thigh. Continue regular diet as tolerated, may benefit from transitional diet if unable to tolerate regular diet. Ensure Enlive will be given to the patient. #3 gastritis-patient will be maintained on IV Protonix and Carafate #4 duodenitis-patient will be maintained on IV Protonix and Carafate I have reviewed Madelin Rosa's progress note including her medical assessment and plan of care and endorse it with the above additions. Total clinical time spent by myself addressing the patient's medical issues, reviewing the patient's medical data, and collaborating with the patient's caregivers: 20 min Visit Charges Inpatient E&M: 63507 Subs Hosp L2
[2021-09-16 13:54] VITALS: BP 126/86; PULSE 62; RESP 16; TEMP 36.6; O2SAT 98
--- NOTE | 2021-09-16 15:20 | NURSING ---
pt had moderate dark colored bm. stated pain was severely lessened afterwards
--- NOTE | 2021-09-16 17:23 | NURSING ---
Called [facility], still awaiting bed assignment at this time, Fidel JEAN-BAPTISTE and Kay Pierre RN aware.
[2021-09-16] MEDS: Atorvastatin Calcium 20 MG Tablet PO (21:32)
[2021-09-17] VITALS (7 sets, daily range): BP systolic 120–145; BP diastolic 64–95; PULSE 65–85; RESP 16–18; TEMP 36.6–37.4; O2SAT 97–100
[2021-09-17] MEDS: 0.9% Normal Saline 1,000 ML 100 ML IV ×3 (05:52→23:40)
[2021-09-17] MEDS: Sucralfate 1 GM Tablet PO ×4 (05:52→21:30)
[2021-09-17] MEDS: Ondansetron 4 MG/2 ML Vial IV (08:12)
[2021-09-17] MEDS: 0.9% Saline Lock 10 ML Syringe IV (08:12)
[2021-09-17] MEDS: Ensure Clear 120 ML Liquid PO (09:04)
[2021-09-17] MEDS: Clopidogrel Bisulfate 75 MG Tablet PO (09:05)
[2021-09-17] MEDS: Pantoprazole Sodium 40 MG Tablet PO ×2 (09:05→21:30)
[2021-09-17] MEDS: Mag Hydrox/Al Hydrox/Simeth 30 ML UDC PO (09:54)
--- NOTE | 2021-09-17 11:40 | PCM.PN.HOSP ---
Documented by User: Madelin Rosa NP, [employer]-C 09/17/21 11:55 Subjective Subjective Patient seen and examined. Reports multiple bowel movements following initiation of bowel regimen yesterday. Reports reflux symptoms this morning. Improved following GI cocktail. Objective Data Objective Data Vital Signs: Vital Signs Temp Pulse Resp BP Pulse Ox 98.3 F 68 18 121/89 H 97 09/17/21 09:02 09/17/21 09:02 09/17/21 09:02 09/17/21 09:02 09/17/21 09:02 Oxygen Delivery Method Room Air Weight: 102 lb 8.239 oz Body Mass Index (BMI) 14.7 Intake & Output: Intake and Output for Last 24 Hours 09/15/21 09/16/21 09/17/21 23:59 23:59 23:59 Intake Total 2558.33 / 2558.33 3633.33 / 4633.33 2400 / 2400 Balance 2558.33 / 2558.33 3633.33 / 4633.33 2400 / 2400 Medical Nutrition Assessment Dietitian: Malnutrition Criteria Met Start: 09/14/21 13:08 Freq: Status: Active Protocol: Document 09/14/21 12:55 AG (Rec: 09/14/21 13:09 [id number]) Nutrition Malnutrition Evidence of Malnutrition Exists Yes Malnutrition (severe): Chronic Evidenced By Suboptimal Energy Intake ( Severe),Weight Loss (Severe), Physical Changes (Severe) Clinical Problem Chronic Disease or Condition Related Malnutrition Etiology severe, chronic malnutrition r /t GI dysfunction Signs/Symptoms as evidenced by estimated PO intake meeting <75% of estimated energy needs >3 months; unintentional wt loss of 17.5#/15% <6 months; severe muscle wasting and fat loss in orbital area, triceps, clavicles, temples, and thigh per physical exam; BMI 14.7 Status Active Problem Recommendation Dietitian Recommendations/Changes continue regular diet as tolerated; may benefit from transitional diet if unable to tolerate regular diet. Will change ONS from Ensure Clear to Ensure Enlive. Close monitoring of electrolytes given risk for refeeding syndrome Lab / Micro Data Result Diagrams: 09/14/21 04:44 09/13/21 09:52 Micro: Microbiology 09/13/21 14:45 Nasal Secretion SARS-CoV-2 Antigen (Rapid) - Final Physical Exam Const alert, oriented x3 and no apparent distress Orientation / Consciousness: awake, oriented to person, oriented to place and oriented to time Nutritional Appearance: cachectic HEENT normocephalic and moist oral mucous membranes Eyes PERRL, EOMs intact bilaterally and conjunctivae normal Neck no lymphadenopathy Resp clear to auscultation bilaterally Auscultation: diminished lung sounds Cardio regular rate, regular rhythm and no murmurs Peripheral Pulses: pulses 2+ throughout GI normal to inspection, nondistended, normoactive bowel sounds, non-tender and non-distended Extremity normal to inspection Skin no rashes or lesions noted Lesions: no lesions Rashes: no rashes Trauma: no lacerations or abrasions Neuro CN's II-XII intact bilaterally, no focal motor deficits, no sensory deficits noted and deep tendon reflexes 2+ bilaterally Psych mental status grossly normal and affect normal Assessment & Plan Assessment/Plan (1) Abdominal pain: PLAN: 1. 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 Continue PPI, Carafate. IV Solu-Medrol. 2. History of celiac/mesenteric occlusion status post stents- GI recommending transfer to [facility] given history of mesenteric bowel and possibly needing angiogram to rule out mesenteric colitis. Patient accepted however no bed available. On plavix. 3. Tobacco dependence-encouraged cessation. As needed nicotine gum. 4. Severe protein calorie malnutrition-as evidenced by cachectic appearance, BMI 14, evidence of muscle and fat loss, recent weight loss, poor oral intake. Dietitian consulted for recommendations. 5. Obstipation-initiated on bowel regimen. Resolved. DVT prophylaxis- SCDs This patient was seen by LIMA Barker under the supervision of Dr. Goldstein. Discharge planning: Awaiting bed at [facility]. Time spent examining patient, reviewing data and subsequent management of care: 10 Minutes Documented by User: Dr. Nabila Goldstein MD 09/17/21 17:22 Objective Data Lab / Micro Data Result Diagrams: 09/14/21 04:44 09/13/21 09:52 Charges/Coding Addendum Addendum: This patient was seen in conjunction with Madelin Rosa NP. I have independently interviewed and examined the patient and reviewed pertinent historical, laboratory, and other data. I have reviewed her note and concur with her documentation Patient was seen and examined. He stated that his abdominal pain was relieved with the GI cocktail. Waiting on a bed for transfer to [facility]. Physical Exam: Gen: Comfortable, not pale, not jaundiced CVS:HS I +II, regular, no murmurs RESP: CTA GI: BS present and normal, soft, nontender, no palpable organs EXT:No edema ASSESSMENT: 1. Acute intractable abdominal pain 2. Transverse and descending colitis 3. Chronic gastritis 4. Acute angiodysplastic gastric lesions 5. History of celiac/mesenteric occlusion status post stents 6. Severe protein calorie malnutrition 7. Obstipation, resolved Plan: Continue on oral PPI, GI cocktail, sucralfate We will follow-up on [facility] transfer line Time spent coordinating patient's care, discussing with subspecialty and nursin minutes Visit Charges Inpatient E&M: 51126 Subs Hosp L2
[2021-09-17] MEDS: Atorvastatin Calcium 20 MG Tablet PO (21:30)
[2021-09-18] MEDS: Sucralfate 1 GM Tablet PO ×4 (06:09→21:16)
[2021-09-18 06:10] VITALS: BP 116/78; PULSE 63; RESP 18; TEMP 37.1; O2SAT 97
[2021-09-18] MEDS: Mag Hydrox/Al Hydrox/Simeth 30 ML UDC 15 ML PO (06:14)
[2021-09-18 08:32] VITALS: BP 126/81; PULSE 73; RESP 16; TEMP 36.8; O2SAT 97
[2021-09-18] MEDS: HYDROmorphone 1 MG/ML Syringe IV ×2 (08:41→21:17)
[2021-09-18] MEDS: Docusate Sodium 100 MG Capsule 200 MG PO ×2 (08:41→21:16)
[2021-09-18] MEDS: Pantoprazole Sodium 40 MG Tablet PO ×2 (08:41→21:16)
[2021-09-18] MEDS: Ondansetron 4 MG/2 ML Vial IV ×2 (08:41→21:16)
[2021-09-18] MEDS: Clopidogrel Bisulfate 75 MG Tablet PO (08:41)
[2021-09-18] MEDS: 0.9% Normal Saline 1,000 ML 100 ML IV ×2 (08:52→18:36)
--- NOTE | 2021-09-18 09:36 | CASEMGMT ---
According to the MMO website, the following are in-network tertiary facilities: [facility], [facility], [facility], [facility], [facility], [facility], [facility], [place], [facility], and . Ty JEAN-BAPTISTE CM
[2021-09-18] MEDS: Mag Hydrox/Al Hydrox/Simeth 30 ML UDC PO (11:27)
--- NOTE | 2021-09-18 12:30 | PCM.PN.HOSP ---
Documented by User: Madelin Rosa NP, [employer] 09/18/21 12:36 Subjective Subjective Patient seen and examined. Reports worsening abdominal pain. States he felt good all day yesterday and now feels the same as when he first came in. Denies nausea, vomiting. Objective Data Objective Data Vital Signs: Vital Signs Temp Pulse Resp BP Pulse Ox 98.2 F 73 16 126/81 H 97 09/18/21 08:32 09/18/21 08:32 09/18/21 08:32 09/18/21 08:32 09/18/21 08:32 Oxygen Delivery Method Room Air Weight: 102 lb 8.239 oz Body Mass Index (BMI) 14.7 Intake & Output: Intake and Output for Last 24 Hours 09/16/21 09/17/21 09/18/21 23:59 23:59 23:59 Intake Total 3633.33 / 4633.33 5240 / 5240 1818.33 / 1818.33 Balance 3633.33 / 4633.33 5240 / 5240 1818.33 / 1818.33 Medical Nutrition Assessment Dietitian: Malnutrition Criteria Met Start: 09/14/21 13:08 Freq: Status: Active Protocol: Document 09/17/21 11:44 RMA (Rec: 09/17/21 11:44 RMA [id number]) Nutrition Malnutrition Evidence of Malnutrition Exists Yes Malnutrition (severe): Chronic Evidenced By Suboptimal Energy Intake ( Severe),Weight Loss (Severe), Physical Changes (Severe) Clinical Problem Chronic Disease or Condition Related Malnutrition Etiology severe, chronic malnutrition r /t GI dysfunction Signs/Symptoms as evidenced by estimated PO intake meeting <75% of estimated energy needs >3 months; unintentional wt loss of 17.5#/15% <6 months; severe muscle wasting and fat loss in orbital area, triceps, clavicles, temples, and thigh per physical exam; BMI 14.7 Status Active Problem Recommendation Dietitian Recommendations/Changes Will continue regular diet as tolerated; may benefit from transitional diet if unable to tolerate regular diet. Continue ensure clear w/ medpass as tolerated. Will try 240 ml ensure enlive w/ breakfast as tolerated. Close monitoring of weight as available and electrolytes given risk for refeeding syndrome. Lab / Micro Data Result Diagrams: 09/14/21 04:44 09/13/21 09:52 Micro: Microbiology 09/13/21 14:45 Nasal Secretion SARS-CoV-2 Antigen (Rapid) - Final Physical Exam Const alert, oriented x3 and no apparent distress Orientation / Consciousness: awake, oriented to person, oriented to place and oriented to time Nutritional Appearance: cachectic HEENT normocephalic and moist oral mucous membranes Eyes PERRL, EOMs intact bilaterally and conjunctivae normal Neck no lymphadenopathy Resp normal respiratory effort and clear to auscultation bilaterally Cardio regular rate, regular rhythm and no murmurs Peripheral Pulses: pulses 2+ throughout GI normal to inspection, nondistended, normoactive bowel sounds and non-distended Palpation: tender Extremity normal to inspection Skin no rashes or lesions noted Lesions: no lesions Rashes: no rashes Trauma: no lacerations or abrasions Neuro CN's II-XII intact bilaterally, no focal motor deficits, no sensory deficits noted and deep tendon reflexes 2+ bilaterally Psych mental status grossly normal Mood & Affect: anxious Assessment & Plan Assessment/Plan (1) Abdominal pain: PLAN: 1. 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 Continue PPI, Carafate. IV Solu-Medrol. 2. History of celiac/mesenteric occlusion status post stents- GI recommending transfer to [facility] given history of mesenteric bowel and possibly needing angiogram to rule out mesenteric colitis. Continue Plavix. Unfortunately, still awaiting bed at [facility]. Consult GI in the meantime and pain management for celiac plexus block. 3. Tobacco dependence-encouraged cessation. As needed nicotine gum. 4. Severe protein calorie malnutrition-as evidenced by cachectic appearance, BMI 14, evidence of muscle and fat loss, recent weight loss, poor oral intake. Dietitian consulted for recommendations. 5. Obstipation-initiated on bowel regimen. Resolved. DVT prophylaxis- SCDs This patient was seen by LIMA Barker under the supervision of Dr. Goldstein. Discharge planning: Awaiting bed at [facility]. Time spent examining patient, reviewing data and subsequent management of care: 10 Minutes Documented by User: Dr. Nabila Goldstein MD 09/18/21 17:57 Objective Data Lab / Micro Data Result Diagrams: 09/14/21 04:44 09/13/21 09:52 Charges/Coding Addendum Addendum: This patient was seen in conjunction with Madelin Rosa NP. I have independently interviewed and examined the patient and reviewed pertinent historical, laboratory, and other data. I have reviewed her note and concur with her documentation Patient was seen and examined. No acute events overnight. His pain is now controlled. Physical Exam: Gen: Comfortable, not pale, not jaundiced CVS:HS I +II, regular, no murmurs RESP: CTA GI: BS present and normal, soft, nontender, no palpable organs EXT:No edema ASSESSMENT: 1. Acute intractable abdominal pain 2. Transverse and descending colitis 3. Chronic gastritis 4. Acute angiodysplastic gastric lesions 5. History of celiac/mesenteric occlusion status post stents 6. Severe protein calorie malnutrition 7. Obstipation, resolved Plan: Continue on oral PPI, GI cocktail, sucralfate Continue to follow-up on [facility] transfer line Time spent coordinating patient's care, discussing with subspecialty and nursin minutes Visit Charges Inpatient E&M: 92161 Subs Hosp L2
--- NOTE | 2021-09-18 12:42 | MRI_ITS ---
STUDY: MR CHOLANGIOPANCREATOGRAPHY (MRCP) REASON FOR EXAM: Male, 61 years old. PAIN CBD STONES PANCREATITIS intractable abdominal pain TECHNIQUE: Standard MRCP technique was utilized. 3-D postprocessing images were obtained. COMPARISON: Sep 13 2021 10:48amCTA Abdomen/Pelvis FINDINGS: Gall Bladder: There are surgical clips in the gallbladder fossa consistent with a prior cholecystectomy. Cystic duct: Normal with no demonstrated fixed filling defect. Intrahepatic ducts: Normal visualized intrahepatic ducts with no demonstrated fixed filling defect, dilation or stricture. Common hepatic duct: Normal with no demonstrated fixed filling defect, dilation or stricture. Common bile duct: Normal with no demonstrated fixed filling defect, dilation or stricture. Pancreatic duct: Normal with no demonstrated fixed filling defect, dilation or stricture. MRI/MRCP Abdomen without Contrast IMPRESSION: Cholecystectomy changes. Electronically Signed: Eduardo Middleton MD at 16:37 EDT ,
[2021-09-18 13:18] VITALS: BP 131/92; PULSE 72; RESP 16; TEMP 37.1; O2SAT 97
[2021-09-18 16:21] VITALS: BP 146/88; PULSE 75; RESP 16; TEMP 37.1; O2SAT 96
--- NOTE | 2021-09-18 16:24 | EX.PCM.CON.G ---
HPI Consult Data Date of Consult: 09/18/21 HPI Narrative HPI Narrative: RAJENDRA HOFFMAN, is a 61 M who presents to the ED with worsening abdominal pain. He has a past medical history of chronic mesenteric stenosis status post PTCA with stenting of the mesenteric vessels on aspirin and Plavix. He also has a past medical history of choledocholithiasis status post ERCP with stone removal. He has been having progressive weight loss over the last several years and is currently about 102 pounds with a BMI of 14.7. He started having abdominal pain last night which progressed to worsening nausea, vomiting and coffee-ground emesis. He still smokes on a daily basis. 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 He recently underwent an egd which displayed inflammation in the stomach and duodenum secondary to bile gastritis. He suffers from chronic abdominal pain which is multifactorial from IBS,cigarettes, chronic mesenteric ischemia and bile gastritis. [facility] Medical History (Updated 09/15/21 @ 00:02 by Devon Max) GI bleed Migraines Smoker Ulcer Home Medications clopidogrel 75 mg PO DAILY 09/23/16 [History Last Taken 09/11/21] rosuvastatin 10 mg PO QHS 06/08/18 [History Last Taken 09/12/21] aspirin 81 mg PO DAILY 08/18/18 [History Last Taken 09/11/21] pantoprazole [Protonix] 40 mg PO BID 09/13/21 [History Last Taken 09/13/21] Allergy/AdvReac Type Severity Reaction Status Date / Time omeprazole AdvReac Other Verified 09/13/21 08:57 Family History (Updated 09/13/21 @ 16:37 by Madelin Rosa NP, BUSINESS DEVELOPMENT ASSISTANT-C) Father Colon cancer Mother No cardiac disease Surgical History History of cholecystectomy Social History (Updated 09/13/21 @ 16:38 by Madelin Rosa NP, BUSINESS DEVELOPMENT ASSISTANT-C) Smoking Status: Current every day smoker tobacco type: cigarettes alcohol intake: current details: occasional use substance use type: does not use ROS Gastrointestinal Gastrointestinal: Reports abdominal pain Physical Exam Const alert General Appearance: cooperative Orientation / Consciousness: oriented to person HEENT hearing grossly normal bilaterally Head and Scalp: normal to inspection Face and Sinus: face symmetric Nose: external nose normal Mouth: oral and palatal mucosa normal Eyes conjunctivae normal General Eye: normal appearance of both eyes Neck full ROM General: normal visual inspection Lymph Lymphatic: no lymphadenopathy noted Chest inspection of chest normal and palpation of chest normal Chest: symmetrical chest wall rise Resp normal respiratory effort Effort and Inspection: able to speak in complete sentences Cardio regular rate GI non-distended Percussion: normal to percussion Rectal Exam: deferred Neuro Speech: speech normal Gait (Neuro): normal gait Medical Records Data Medical Nutrition Assessment Dietitian: Malnutrition Criteria Met Start: 09/14/21 13:08 Freq: Status: Active Protocol: Document 09/17/21 11:44 RMA (Rec: 09/17/21 11:44 RMA [id number]) Nutrition Malnutrition Evidence of Malnutrition Exists Yes Malnutrition (severe): Chronic Evidenced By Suboptimal Energy Intake ( Severe),Weight Loss (Severe), Physical Changes (Severe) Clinical Problem Chronic Disease or Condition Related Malnutrition Etiology severe, chronic malnutrition r /t GI dysfunction Signs/Symptoms as evidenced by estimated PO intake meeting <75% of estimated energy needs >3 months; unintentional wt loss of 17.5#/15% <6 months; severe muscle wasting and fat loss in orbital area, triceps, clavicles, temples, and thigh per physical exam; BMI 14.7 Status Active Problem Recommendation Dietitian Recommendations/Changes Will continue regular diet as tolerated; may benefit from transitional diet if unable to tolerate regular diet. Continue ensure clear w/ medpass as tolerated. Will try 240 ml ensure enlive w/ breakfast as tolerated. Close monitoring of weight as available and electrolytes given risk for refeeding syndrome. Lab / Micro Data Result Diagrams: 09/14/21 04:44 09/13/21 09:52 Assessment & Plan Assessment/Plan (1) Abdominal pain: PLAN: He is actually gained 5 pounds from being in the hospital. I told him that I will give him xanax for his anxiety, Questran for his bile gastritis, Levsin for his pain if he will stop smoking. He had the MRCP to look at his pancreas to see if there are any elements of chronic pancreatitis. If he stays in the hospital I will order a fecal elastase and Fecal fat for chronic pancreatitis as an etiology of his abdominal pain. Charges/Coding Visit Charges Inpatient E&M: 52103 Init Hosp L3
[2021-09-18] MEDS: ALPRAZolam 0.25 MG Tablet 0.125 MG PO ×2 (17:54→21:16)
[2021-09-18] MEDS: Hyoscyamine Sulfate 0.125 MG Tablet 0.25 MG SL ×2 (17:58→23:20)
[2021-09-18 18:50] LABS: Partial Thromboplast Time 28.1 Seconds (24.1-36.2)
[2021-09-18 19:51] VITALS: BP 119/91; PULSE 76; RESP 18; TEMP 36.8; O2SAT 97
[2021-09-18] MEDS: Atorvastatin Calcium 20 MG Tablet PO (21:16)
[2021-09-18 23:24] VITALS: BP 128/88; PULSE 72; RESP 18; TEMP 36.8; O2SAT 98
[2021-09-19] MEDS: 0.9% Normal Saline 1,000 ML 100 ML IV (04:15)
[2021-09-19 04:16] VITALS: BP 122/76; PULSE 56; RESP 16; TEMP 36.9; O2SAT 98
[2021-09-19] MEDS: Cholestyramine/Sucrose 4 GM/PACKET PO (05:55)
[2021-09-19] MEDS: Sucralfate 1 GM Tablet PO (05:56)
[2021-09-19] MEDS: Hyoscyamine Sulfate 0.125 MG Tablet 0.25 MG SL (05:56)
[2021-09-19] MEDS: ALPRAZolam 0.25 MG Tablet 0.125 MG PO (06:00)
[2021-09-19 06:37] LABS: Absolute Lymphocyte Count 1.59 X10^3/uL (0.83-4.51); Absolute Neutrophil Count 7.2 X10^3/uL (2.0-7.7); Basophil# 0.03 X10^3/uL; Basophil% 0.3 % (0-1); Eosinophil# 0.01 X10^3/uL; Eosinophils% 0.1 % (0-5); Hematocrit 42.7 % (40-54); Hemoglobin 15.1 g/dL (13.0-16.5); Lymphocyte # 1.59 X10^3/ul (0.83-4.51); Lymphocyte % 16.9 % (19-41); Mean Corp Hgb Conc 35.4 g/dL (32-36); Mean Corpuscular Volume 87.7 fL (80-94); Mean Platelet Vol. 13.1 fl (6.2-12.0); Monocyte# 0.55 X10^3/uL; Monocyte% 5.8 % (0-10); NRBC Flagged by Analyzer 0 % (0-5); Neutrophil # 7.21 X10^3/uL (2.7-7.7); Neutrophil % 76.5 % (47-70); POSITIVE MORPHOLOGY YES; Platelet Count 147 K/mm3 (150-450); RBC Distribution Width CV 13.3 % (11.6-14.6); RBC Distribution Width SD 42.8 fl (35.1-43.9); Red Blood Count 4.87 M/mm3 (4.6-6.2); White Blood Count 9.4 K/mm3 (4.4-11.0)
[2021-09-19 06:38] LABS: Differential Indicated SCAN CRITERIA MET
[2021-09-19 07:02] LABS: Anion Gap 5 (5-15); BUN 15 mg/dL (7-18); BUN/Creat Ratio 17.5 RATIO (10-20); Calcium,Total 8.8 mg/dL (8.5-10.1); Chloride 105 mmol/L (98-107); Creatinine, Serum 0.86 mg/dL (0.70-1.30); EST Glomerular Filtration Rate 97 mL/min (>60); Est Glom Filt Rate - Afr Amer 117 mL/min (>60); Estimated Creatinine Clearance 60.08 ml/min; Glucose 97 mg/dL (74-106); Potassium 3.7 mmol/L (3.5-5.1); Sodium Level 138 mmol/L (136-145)
[2021-09-19 07:04] LABS: Differential Comment SCANNED; Platelet Estimate ADEQUATE (ADEQ)
[2021-09-19 09:05] VITALS: BP 125/74; PULSE 65; RESP 16; TEMP 36.9; O2SAT 100
[2021-09-19] MEDS: Pantoprazole Sodium 40 MG Tablet PO (09:07)
[2021-09-19] MEDS: Docusate Sodium 100 MG Capsule 200 MG PO (09:07)
--- NOTE | 2021-09-19 10:48 | PCM.DC ---
Discharge Instructions Diet Discharge Diet: Light diet - advance as tolerated Activity Discharge Activity: Return to Normal Activity Dressing / Incision Call your doctor if you observe: Shortness of breath, Dizziness, Chest pain and Uncontrolled pain Follow Up Care Test Results: Test results from this visit will be discussed in further detail at your follow-up appointment, if applicable. Discharge Plan Admission Admit Date/Time: 09/13/21 16:00 Primary Reason for Your Visit: Abdominal pain Attending Provider: Nabila Goldstein Primary Care Provider: Richard Dai Consulting Providers: Darryl Alberto Discharge Orders/Prescriptions Prescriptions: New Ensure Clear Liquid 120 ml PO 4X/DAY Qty: 0 RF: 0 ondansetron HCl 4 mg tablet 4 mg PO Q8H PRN (Reason: nausea and vomiting) Qty: 10 RF: 0 cholestyramine (with sugar) 4 gram powder in packet 4 g PO BIDAC Qty: 60 RF: 0 sucralfate 1 gram tablet 1 g PO ACHS Qty: 120 RF: 0 hyoscyamine sulfate 0.125 mg Tablet, Sublingual 0.25 mg sublingual Q6 PRN (Reason: Abdominal Discomfort) Qty: 20 RF: 0 Continued clopidogrel 75 MG tablet 75 mg PO DAILY RF: 0 Hold Instructions: hold for five days, then resume rosuvastatin 10 MG tablet 10 mg PO QHS RF: 0 pantoprazole [Protonix] 40 mg tablet,delayed release (DR/EC) 40 mg PO BID RF: 0 Discontinued aspirin 81 MG tablet,chewable 81 mg PO DAILY RF: 0 Hold Instructions: hold for 5 days, then resume Referrals / Follow Up: Kory Medina DO [STAFF PHYSICIAN] - Within 1 Week Richard Dai MD [Primary Care Provider] - 09/27/21 9:00 am Disposition Disposition (needs filled in before D/C Order can be placed): Home, Self Care
--- NOTE | 2021-09-19 11:12 | CASEMGMT ---
Pt has been independent in room and now will d/c home with OP f/u at [facility]. Ty JEAN-BAPTISTE CM
--- NOTE | 2021-09-19 11:15 | DS.PCM_ITS ---
Documented by User: Madelin Rosa NP, CARDIOPULMONARY TECHNOLOGIST CHIEF-C 09/19/21 11:28 Providers Date of Admission: 09/13/21 Date of Discharge: 09/19/21 Primary Care Physician: Dr. Richard Dai MD Consultations 09/18/21 12:26 Consult: Gastroenterology Routine Consulting Provider: Alan Gastroenter[facility] Reason for Consult: colitis EMERGENT Consult: No Notified: Yes Date Notified: 09/18/21 Time Notified: 12:27 Method of Notification: Text 09/18/21 12:29 Consult: Pain Management Routine Consulting Provider: Darryl Alberto Reason for Consult: celiac plexus block EMERGENT Consult: No Notified: Yes Date Notified: 09/18/21 Time Notified: 12:29 Method of Notification: Verbal Reason For Visit: ABDOMINAL PAIN,COLITIS Diagnosis Discharge Diagnosis (1) Abdominal pain: Status: Acute Code(s): R10.9 - Unspecified abdominal pain Medications at Discharge Home Medications clopidogrel 75 mg PO DAILY 09/23/16 rosuvastatin 10 mg PO QHS 06/08/18 pantoprazole [Protonix] 40 mg PO BID 09/13/21 cholestyramine (with sugar) 4 g PO BIDAC #60 ea 09/19/21 food supplemt, lactose-reduced [Ensure Clear] 120 ml PO 4X/DAY #0 ml 09/19/21 hyoscyamine sulfate 0.25 mg SUBLINGUAL Q6 PRN #20 tab 09/19/21 ondansetron HCl 4 mg PO Q8H PRN #10 tab 09/19/21 sucralfate 1 g PO ACHS #120 tab 09/19/21 Hospital Course Operations None Procedures None Summary of Care Provided Hospital Course: Patient is a 61-year-old male admitted 09/13/2021 due to abdominal pain. 1. 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 Continue PPI, Carafate. IV Solu-Medrol during admission. Follow-up with PCP and GI within 1 week. 2. History of celiac/mesenteric occlusion status post stents- GI recommending transfer to [facility] given history of mesenteric bowel and possibly needing angiogram to rule out mesenteric colitis. Continue Plavix. Unfortunately, after prolonged wait, no bed currently available. Patient symptoms improved. GI consulted. Initiated on Questran for bile gastritis and as needed Levsin for pain. Pain management consult for celiac plexus block however patient refused. Follow-up with GI for outpatient vascular referral for angiogram. 3. Tobacco dependence-strongly encouraged cessation 4. Severe protein calorie malnutrition-as evidenced by cachectic appearance, BMI 14, evidence of muscle and fat loss, recent weight loss, poor oral intake. Dietitian consulted for recommendations. Continue dietary supplement per dietitian recommendations. 5. Obstipation-initiated on bowel regimen. Resolved. Physical Exam Const alert, oriented x3 and no apparent distress Orientation / Consciousness: awake, oriented to person, oriented to place and oriented to time Nutritional Appearance: cachectic HEENT normocephalic and moist oral mucous membranes Eyes PERRL, EOMs intact bilaterally and conjunctivae normal Neck no lymphadenopathy Resp normal respiratory effort and clear to auscultation bilaterally Cardio regular rate, regular rhythm and no murmurs Peripheral Pulses: pulses 2+ throughout GI normal to inspection, nondistended, normoactive bowel sounds and non-distended Palpation: tender Extremity normal to inspection Skin no rashes or lesions noted Lesions: no lesions Rashes: no rashes Trauma: no lacerations or abrasions Neuro CN's II-XII intact bilaterally, no focal motor deficits, no sensory deficits noted and deep tendon reflexes 2+ bilaterally Psych mental status grossly normal Mood & Affect: anxious Patient seen and examined prior to discharge. Physical assessment as noted abo ve. Patient is stable for discharge with follow up recommendations as noted above. This patient was seen by LIMA Barker under the supervision of Dr. Goldstein. Time spent examining patient, reviewing data and subsequent management of care: 18 Minutes Medical Records Data Medical Nutrition Assessment Dietitian: Malnutrition Criteria Met Start: 09/14/21 13:08 Freq: Status: Active Protocol: Document 09/17/21 11:44 RMA (Rec: 09/17/21 11:44 RMA [id number]) Nutrition Malnutrition Evidence of Malnutrition Exists Yes Malnutrition (severe): Chronic Evidenced By Suboptimal Energy Intake ( Severe),Weight Loss (Severe), Physical Changes (Severe) Clinical Problem Chronic Disease or Condition Related Malnutrition Etiology severe, chronic malnutrition r /t GI dysfunction Signs/Symptoms as evidenced by estimated PO intake meeting <75% of estimated energy needs >3 months; unintentional wt loss of 17.5#/15% <6 months; severe muscle wasting and fat loss in orbital area, triceps, clavicles, temples, and thigh per physical exam; BMI 14.7 Status Active Problem Recommendation Dietitian Recommendations/Changes Will continue regular diet as tolerated; may benefit from transitional diet if unable to tolerate regular diet. Continue ensure clear w/ medpass as tolerated. Will try 240 ml ensure enlive w/ breakfast as tolerated. Close monitoring of weight as available and electrolytes given risk for refeeding syndrome. Weight / BMI Weight Weight: 102 lb 8.239 oz Body Mass Index (BMI) 14.7 ABG / Lab / Microbiology Data Result Diagrams: 09/19/21 05:38 09/19/21 05:38 Laboratory: Laboratory Results - last 24 hr 09/18/21 18:14: PT 13.0, INR 1.0, APTT 28.1 09/19/21 05:38: WBC 9.4, RBC 4.87, Hgb 15.1, Hct 42.7, MCV 87.7, MCH 31.0, MCHC 35.4, RDW Std Deviation 42.8, RDW Coeff of Rashida 13.3, Plt Count 147 L, MPV 13.1 H , Immature Gran % (Auto) 0.400, Neut % (Auto) 76.5 H, Lymph % (Auto) 16.9 L, M yolie % (Auto) 5.8, Eos % (Auto) 0.1, Baso % (Auto) 0.3, Absolute Neuts (auto) 7.2, Absolute Lymphs (auto) 1.59, Nucleated RBC % 0, Differential Comment SCANNED, Platelet Estimate ADEQUATE 09/19/21 05:38: Sodium 138, Potassium 3.7, Chloride 105, Carbon Dioxide 28.0, Anion Gap 5, BUN 15, Creatinine 0.86, Estim Creat Clear Calc 60.08, Est GFR (MDRD) Af Amer 117, Est GFR (MDRD) Non-Af 97, BUN/Creatinine Ratio 17.5, Glucose 97, Calcium 8.8 Microbiology: Microbiology 09/13/21 14:45 Nasal Secretion SARS-CoV-2 Antigen (Rapid) - Final Radiography Diagnostic Testing: Radiology Impression MRCP 09/18/21 12:42 IMPRESSION: Cholecystectomy changes. Electronically Signed: Eduardo Middleton MD at 16:37 EDT Reading Location ID and State: [facility] / [place] , Service support , D/C Instructions Discharge Diet: Light diet - advance as tolerated Call your doctor if you observe: Shortness of breath, Dizziness, Chest pain and Uncontrolled pain Meaningful Use Info Meaningful Use Diagnoses (Choose all that apply): None applicable Discharge Plan Admission Admit Date/Time: 09/13/21 16:00 Primary Reason for Your Visit: Abdominal pain Attending Provider: Nabila Goldstein Primary Care Provider: Richard Dai Consulting Providers: Darryl Alberto Discharge Orders/Prescriptions Prescriptions: New Ensure Clear Liquid 120 ml PO 4X/DAY Qty: 0 RF: 0 ondansetron HCl 4 mg tablet 4 mg PO Q8H PRN (Reason: nausea and vomiting) Qty: 10 RF: 0 cholestyramine (with sugar) 4 gram powder in packet 4 g PO BIDAC Qty: 60 RF: 0 sucralfate 1 gram tablet 1 g PO ACHS Qty: 120 RF: 0 hyoscyamine sulfate 0.125 mg Tablet, Sublingual 0.25 mg sublingual Q6 PRN (Reason: Abdominal Discomfort) Qty: 20 RF: 0 Continued clopidogrel 75 MG tablet 75 mg PO DAILY RF: 0 Hold Instructions: hold for five days, then resume rosuvastatin 10 MG tablet 10 mg PO QHS RF: 0 pantoprazole [Protonix] 40 mg tablet,delayed release (DR/EC) 40 mg PO BID RF: 0 Discontinued aspirin 81 MG tablet,chewable 81 mg PO DAILY RF: 0 Hold Instructions: hold for 5 days, then resume Referrals / Follow Up: Kory Medina DO [STAFF PHYSICIAN] - 10/04/21 9:00 am Richard Dai MD [Primary Care Provider] - 09/27/21 9:00 am Disposition Disposition (needs filled in before D/C Order can be placed): Home, Self Care Documented by User: Dr. Nabila Goldstein MD 09/19/21 15:22 Providers Date of Admission: 09/13/21 Reason For Visit: ABDOMINAL PAIN,COLITIS Medications at Discharge Home Medications clopidogrel 75 mg PO DAILY 09/23/16 rosuvastatin 10 mg PO QHS 06/08/18 pantoprazole [Protonix] 40 mg PO BID 09/13/21 cholestyramine (with sugar) 4 g PO BIDAC #60 ea 09/19/21 food supplemt, lactose-reduced [Ensure Clear] 120 ml PO 4X/DAY #0 ml 09/19/21 hyoscyamine sulfate 0.25 mg SUBLINGUAL Q6 PRN #20 tab 09/19/21 ondansetron HCl 4 mg PO Q8H PRN #10 tab 09/19/21 sucralfate 1 g PO ACHS #120 tab 09/19/21 ABG / Lab / Microbiology Data Result Diagrams: 09/19/21 05:38 09/19/21 05:38 Discharge Plan Admission Admit Date/Time: 09/13/21 16:00 Primary Reason for Your Visit: Abdominal pain Attending Provider: Nabila Goldstein Primary Care Provider: Richard Dai Consulting Providers: Darryl Alberto Discharge Orders/Prescriptions Prescriptions: New Ensure Clear Liquid 120 ml PO 4X/DAY Qty: 0 RF: 0 ondansetron HCl 4 mg tablet 4 mg PO Q8H PRN (Reason: nausea and vomiting) Qty: 10 RF: 0 cholestyramine (with sugar) 4 gram powder in packet 4 g PO BIDAC Qty: 60 RF: 0 sucralfate 1 gram tablet 1 g PO ACHS Qty: 120 RF: 0 hyoscyamine sulfate 0.125 mg Tablet, Sublingual 0.25 mg sublingual Q6 PRN (Reason: Abdominal Discomfort) Qty: 20 RF: 0 Continued clopidogrel 75 MG tablet 75 mg PO DAILY RF: 0 Hold Instructions: hold for five days, then resume rosuvastatin 10 MG tablet 10 mg PO QHS RF: 0 pantoprazole [Protonix] 40 mg tablet,delayed release (DR/EC) 40 mg PO BID RF: 0 Discontinued aspirin 81 MG tablet,chewable 81 mg PO DAILY RF: 0 Hold Instructions: hold for 5 days, then resume Referrals / Follow Up: Kory Medina DO [STAFF PHYSICIAN] - 10/04/21 9:00 am Richard Dai MD [Primary Care Provider] - 09/27/21 9:00 am Disposition Disposition (needs filled in before D/C Order can be placed): Home, Self Care Charges/Coding Addendum Addendum: This patient was seen in conjunction with Madelin Rosa NP. I have independently interviewed and examined the patient and reviewed pertinent historical, laboratory, and other data. I have reviewed her note and concur with her documentation 61-year-old male past medical history of chronic mesenteric occlusion status post stents who presented with abdominal pain, nausea and vomiting. His emesis was described as coffee-ground emesis. Patient admitted to abdominal cramping that started 2 days prior to admission. He was admitted to the PCU. He underwent EGD on 09/12/21 that showed chronic gastritis with hemorrhage that was biopsied. There was 3 bleeding angiodysplastic lesions in the stomach that was treated with a heater probe. There was reflux esophagitis and chronic duodenitis. Patient was maintained on sucrafate and PPI twice daily. He underwent CTA of the abdomen and pelvis that showed patent vascular stents at the origin of celiac artery and superior mesenteric artery. There were also findings of colitis involving the transverse colon and descending colon. The initial plan was to have patient transferred to the [facility]. Patient however had a prolonged wait and no bed was available. Patient was initiated on Questran for bile gastritis. Patient's pain was fairly controlled. Pain management was consulted for celiac plexus block. Patient however refused. Patient will follow up with GI in the outpatient. Physical Exam: Gen: Comfortable, not pale, not jaundiced CVS:HS I +II, regular, no murmurs RESP: Diminished at lung bases GI: BS present and normal, soft, nontender, no palpable organs EXT:No edema Time spent coordinating patient's care, discussing with subspecialty and otis sin minutes Visit Charges Inpatient E&M: [id number] Disch Hosp
[2021-09-23 08:04] LABS: Fats, Neutral Normal (.); Fats, Total Normal (.)
== END 2021-09-19 11:59 | disposition home or self-care (01) | DRG 391 ==
LOC: ED 16:11 → PCU 16:29
PROVIDERS: Internal Medicine Gastroenterology; Nurse Practitioner; Nurse Practitioner Family; Admitting Provider Internal Medicine; Emergency Provider Emergency Medicine; PCP Family Medicine; Visit Provider Internal Medicine
DX: K52.9 Noninfective gastroenteritis and colitis, unspecified (principal); E43 Unspecified severe protein-calorie malnutrition; K29.51 Unspecified chronic gastritis with bleeding; K31.811 Angiodysplasia of stomach and duodenum with bleeding; K55.1 Chronic vascular disorders of intestine; Z68.1 Body mass index [BMI] 19.9 or less, adult; K29.80 Duodenitis without bleeding; F17.210 Nicotine dependence, cigarettes, uncomplicated; F41.9 Anxiety disorder, unspecified; K21.00 Gastro-esophageal reflux disease with esophagitis, without bleeding; R10.84 Generalized abdominal pain; G89.29 Other chronic pain; Z95.828 Presence of other vascular implants and grafts; Z79.02 Long term (current) use of antithrombotics/antiplatelets; Z79.82 Long term (current) use of aspirin; Z79.899 Other long term (current) drug therapy; Z80.0 Family history of malignant neoplasm of digestive organs
CPT/HCPCS: 36415; 74174; 74181; 80048; 82550; 82705; 83605; 83690; 85025; 85610; 85652; 85730; 86140; 87811; 99284; 99406; J7030; Q9967; A4216; J2405

== ENCOUNTER 2021-10-03 17:38 | Outpatient (CLI) | payer OTHER, SELFPAY ==
--- NOTE | 2021-10-03 17:43 | MRI_ITS ---
History: DDD, STENOSIS Technique: T1 and T2 MR imaging of the cervical spine performed with and without contrast enhancement in axial and sagittal planes. 10 CC DOTRAREM Findings: Anterior fusion of the C4-C7 vertebral bodies. There is loss of the cervical lordosis at the level of the fusion. No bone marrow edema. Cervical cord is normal. No abnormal contrast enhancement. Paraspinal soft tissues are normal. C2-3: No disc protrusion. Normal caliber spinal canal and neural foramina. C3-4: No disc protrusion. Mild posterior ligamentous redundancy noted without significant compression of the thecal sac. There is marked narrowing of the right neural foramen secondary to uncinate and facet hypertrophy. Left neural foramen is patent. C4-5: No disc protrusion. Normal caliber spinal canal and neural foramina. C5-6: Mild posterior disc ossified complex without significant impression on the thecal sac. Moderate narrowing of the neural foramina related to uncinate joint hypertrophy. C6-7: No disc protrusion or spinal stenosis. Moderate bilateral neural foraminal narrowing related to uncinate joint hypertrophy. C7-T1: No disc protrusion. Normal caliber spinal canal and neural foramina. MRI/Spine Cervical W/WO Contrast IMPRESSION: Anterior fusion of C4-C7. No spinal stenosis. Neuroforaminal narrowing on the right at C3-4 and bilaterally at C5-6 and C6-7 related to uncinate joint hypertrophy and facet arthropathy. at 1118 Reported and signed by: Poncho Escamilla MD Electronically Signed: Poncho Escamilla MD at 11:17 EDT ,
== END 2021-10-03 23:59 | disposition home or self-care (01) ==
LOC: MRI 17:40
PROVIDERS: PCP Family Medicine; Visit Provider Nurse Practitioner Family
DX: M54.12 Radiculopathy, cervical region (principal); M47.812 Spondylosis without myelopathy or radiculopathy, cervical region; M50.30 Other cervical disc degeneration, unspecified cervical region; M48.02 Spinal stenosis, cervical region
CPT/HCPCS: 72156; A9575

== ENCOUNTER 2021-10-11 06:58 | Day surgery (SDC) | payer OTHER, SELFPAY ==
[2021-10-11] VITALS (7 sets, daily range): BP systolic 80–111; BP diastolic 44–79; PULSE 63–88; RESP 16–18; TEMP 36.1–36.9; O2SAT 98–100; BMI 14.7
[2021-10-11] MEDS: Lactated Ringers 1,000 ML 15 ML IV ×2 (07:30→09:14)
--- NOTE | 2021-10-11 07:47 | HP.PCM_ITS ---
History and Physical Date of Admission: 10/11/21 RAJENDRA HOFFMAN, is a 61 M who presents to the ED with worsening abdominal pain. He has a past medical history of chronic mesenteric stenosis status post PTCA with stenting of the mesenteric vessels on aspirin and Plavix. He also has a past medical history of choledocholithiasis status post ERCP with stone removal. He has been having progressive weight loss over the last several years and is currently about 102 pounds with a BMI of 14.7. He started having abdominal pain last night which progressed to worsening nausea, vomiting and coffee-ground emesis. He still smokes on a daily basis. 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 He recently underwent an egd which displayed inflammation in the stomach and duodenum secondary to bile gastritis. He suffers from chronic abdominal pain which is multifactorial from IBS,cigarettes, chronic mesenteric ischemia and bile gastritis. [facility] Medical History (Updated 09/15/21 @ 00:02 by Devon Max) GI bleed Migraines Smoker Ulcer Home Medications clopidogrel 75 mg PO DAILY 09/23/16 [History Last Taken 09/11/21] rosuvastatin 10 mg PO QHS 06/08/18 [History Last Taken 09/12/21] aspirin 81 mg PO DAILY 08/18/18 [History Last Taken 09/11/21] pantoprazole [Protonix] 40 mg PO BID 09/13/21 [History Last Taken 09/13/21] Allergy/AdvReac Type Severity Reaction Status Date / Time omeprazole AdvReac Other Verified 09/13/21 08:57 Family History (Updated 09/13/21 @ 16:37 by Madelin Rosa NP, MANAGER SUBWAY-C) Father Colon cancer Mother No cardiac disease Surgical History History of cholecystectomy Social History (Updated 09/13/21 @ 16:38 by Madelin Rosa NP, MANAGER [employer]-C) Smoking Status: Current every day smoker tobacco type: cigarettes alcohol intake: current details: occasional use substance use type: does not use ROS Gastrointestinal Gastrointestinal: Reports abdominal pain Physical Exam Const alert General Appearance: cooperative Orientation / Consciousness: oriented to person HEENT hearing grossly normal bilaterally Head and Scalp: normal to inspection Face and Sinus: face symmetric Nose: external nose normal Mouth: oral and palatal mucosa normal Eyes conjunctivae normal General Eye: normal appearance of both eyes Neck full ROM General: normal visual inspection Lymph Lymphatic: no lymphadenopathy noted Chest inspection of chest normal and palpation of chest normal Chest: symmetrical chest wall rise Resp normal respiratory effort Effort and Inspection: able to speak in complete sentences Cardio regular rate GI non-distended Percussion: normal to percussion Rectal Exam: deferred Neuro Speech: speech normal Gait (Neuro): normal gait Medical Records Data Medical Nutrition Assessment Dietitian: Malnutrition Criteria Met Start: 09/14/21 13:08 Freq: Status: Active Protocol: Document 09/17/21 11:44 RMA (Rec: 09/17/21 11:44 RMA [id number]) Nutrition Malnutrition Evidence of Malnutrition Exists Yes Malnutrition (severe): Chronic Evidenced By Suboptimal Energy Intake ( Severe),Weight Loss (Severe), Physical Changes (Severe) Clinical Problem Chronic Disease or Condition Related Malnutrition Etiology severe, chronic malnutrition r /t GI dysfunction Signs/Symptoms as evidenced by estimated PO intake meeting <75% of estimated energy needs >3 months; unintentional wt loss of 17.5#/15% <6 months; severe muscle wasting and fat loss in orbital area, triceps, clavicles, temples, and thigh per physical exam; BMI 14.7 Status Active Problem Recommendation Dietitian Recommendations/Changes Will continue regular diet as tolerated; may benefit from transitional diet if unable to tolerate regular diet. Continue ensure clear w/ medpass as tolerated. Will try 240 ml ensure enlive w/ breakfast as tolerated. Close monitoring of weight as available and electrolytes given risk for refeeding syndrome. Lab / Micro Data Result Diagrams: 09/14/21 04:44 document embedded image 09/13/21 09:52 document embedded image Assessment & Plan Assessment/Plan (1) Abdominal pain: PLAN: He is actually gained 5 pounds from being in the hospital. I told him that I will give him xanax for his anxiety, Questran for his bile gastritis, Levsin for his pain if he will stop smoking. He had the MRCP to look at his pancreas to see if there are any elements of chronic pancreatitis. If he stays in the hospital I will order a fecal elastase and Fecal fat for chronic pancreatitis as an etiology of his abdominal pain. He will undergo an EGD and colonoscopy for evaluation of severe weight loss and severe malnutrition. He was explained alternatives, risk, benefits include nondistended bleeding, infection, sepsis, perforation, need for emergent . He will be an ASA of 3.
--- NOTE | 2021-10-11 08:15 | COLBX_PTH ---
PATIENT: RAJENDRA HOFFMAN LOC: EN U#:[id number] AGE/SX: 61/M ROOM: RE10/11/[address]: Dr. Kory Medina DO : 1960 BED: DIS: 10/11/2021 SPEC #: [id number] RECD: 10/11/21 10:28 STATUS: MAKAYLA JOSH #: [id number] HERNANDEZ: 10/11/21 08:[address]: Kory Medina DEPT: SURGICAL PATHOLOGY RECD BY: Justina James ENTERED: 10/11/21 13:34 SP TYPE: COLON BX TOMMY DR: Dr. Richard Dai MD Tissues: A - Ascending colon B - Ileum, NOS C - Sigmoid colon biopsy D - Sigmoid colon biopsy Procedures: Surgery Specimen Level IV HEADER OPERATION: Colonoscopy (MAC) with biopsies and polyp removal PRE-OP DIAGNOSIS: Abdominal pain, weight loss TISSUE SUBMITTED: A - Biopsy ascending colon polyp, B - Biopsy terminal ileum, C - Sigmoid polyp?#1, D - Sigmoid polyp #2 MICROSCOPIC DIAGNOSIS A. Ascending colon polyp, biopsy: Fragments of tubular adenoma. B. Terminal ileum, biopsy: No pathologic change. C. Sigmoid colon polyp #1, biopsy: Tubular adenoma. D. Sigmoid colon polyp #2, biopsy: Tubular adenoma. AM:ambrose 10/12/2021 MICROSCOPIC DESCRIPTION Slides are reviewed. GROSS DESCRIPTION A - Received in fixative is one container labeled with the patient's name and designated ascending colon polyp biopsy. The specimen consists of multiple irregular fragments of light romero soft tissue that in aggregate measure 0.6 x 0.3 x 0.1 cm. The specimen is totally submitted in one cassette. B - Received in fixative is one container labeled with the patient's name and designated terminal ileum biopsy. The specimen consists of two irregular fragments of light romero soft tissue that in aggregate measure 0.6 x 0.3 x 0.1 cm. The specimen is totally submitted in one cassette. C - Received in fixative is one container labeled with the patient's name and designated sigmoid polyp #1. The specimen consists of a piece of romero-pink polyp measuring 0.6 x 0.5 x 0.3 cm. The specimen is totally submitted in one cassette. D - Received in fixative is one container labeled with the patient's name and designated sigmoid polyp #2. The specimen consists of one irregular fragment of light romero soft tissue that measures 0.3 x 0.3 x 0.1 cm. The specimen is totally submitted in one cassette. / SJ:ambrose 10/11/2021 TC:5 CPT: 57950 x4
--- NOTE | 2021-10-11 09:10 | OP.COLON_ITS ---
Patient Name: Ministerio Leal Procedure Date: 10/11/2021 8:15 AM Date of : 1960 Age: 61 Procedure: Colonoscopy Indications: Follow-up for history of adenomatous polyps in the colon Providers: Kory Medina DO Medicines: Sedation Required Anesthesia Staff Assistance Patient Profile: This is a 61 year old male. Refer to note in patient chart for documentation of history and physical. Last Colonoscopy: more than 3 years ago. Complications: No immediate complications. Procedure: Pre-Anesthesia Assessment: - Prior to the procedure, a History and Physical was performed, and patient medications and allergies were reviewed. The patient is competent. The risks and benefits of the procedure and the sedation options and risks were discussed with the patient. All questions were answered and informed consent was obtained. Patient identification and proposed procedure were verified by the physician in the pre-procedure area. Mental Status Examination: alert and oriented. Airway Examination: normal oropharyngeal airway and neck mobility. Respiratory Examination: clear to auscultation. CV Examination: normal. Prophylactic Antibiotics: The patient does not require prophylactic antibiotics. Prior Anticoagulants: The patient has taken no previous anticoagulant or antiplatelet agents. After reviewing the risks and benefits, the patient was deemed in satisfactory condition to undergo the procedure. The anesthesia plan was to use minimal sedation / analgesia (anxiolysis). Immediately prior to administration of medications, the patient was re-assessed for adequacy to receive sedatives. The heart rate, respiratory rate, oxygen saturations, blood pressure, adequacy of pulmonary ventilation, and response to care were monitored throughout the procedure. The physical status of the patient was re-assessed after the procedure. After I obtained informed consent, the scope was passed under direct vision. Throughout the procedure, the patient's blood pressure, pulse, and oxygen saturations were monitored continuously. The Colonoscope was introduced through the anus and advanced to the terminal ileum. The colonoscopy was performed without difficulty. The patient tolerated the procedure well. The quality of the bowel preparation was good. Moderate Sedation: Moderate (conscious) sedation was administered by the endoscopy nurse and supervised by the endoscopist. The patient's oxygen saturation, heart rate, blood pressure and response to care were monitored. Total physician intraservice time was 15 minutes. Scope In: 8:25:05 AM Scope Withdrawal Time 0 hours 30 minutes 49 seconds Scope Out: 9:02:22 AM Total Procedure Duration Time 0 hours 37 minutes 17 seconds Findings: Hemorrhoids were found on perianal exam. A few small and large-mouthed diverticula were found in the recto-sigmoid colon, sigmoid colon and descending colon. Four sessile polyps were found in the sigmoid colon and ascending colon. The polyps were 1 to 2 mm in size. These polyps were removed with a hot snare. Resection and retrieval were complete. Verification of patient identification for the specimen was done. Estimated blood loss was minimal. Area was tattooed with an injection of 1 mL of Liz ink. A patchy area of the terminal ileum was congested. Biopsies were taken with a cold forceps for histology. Verification of patient identification for the specimen was done. Estimated blood loss was minimal. Impression: - Hemorrhoids found on perianal exam. - Diverticulosis in the recto-sigmoid colon, in the sigmoid colon and in the descending colon. - Four 1 to 2 mm polyps in the sigmoid colon and in the ascending colon, removed with a hot snare. Resected and retrieved. Tattooed. - Congested mucosa in the terminal ileum. Biopsied. Recommendation: - Discharge patient to home. - Resume previous diet. - Continue present medications. - Await pathology results. - Repeat colonoscopy in 3 years for surveillance based on pathology results. Procedure Code(s): --- Professional --- 30836, Colonoscopy, flexible; with removal of tumor(s), polyp(s), or other lesion(s) by snare technique 96226, Colonoscopy, flexible; with directed submucosal injection(s), any substance 86190, 59, Colonoscopy, flexible; with biopsy, single or multiple G0500, Moderate sedation services provided by the same physician or other qualified health women's health care nurse practitioner performing a gastrointestinal endoscopic service that sedation supports, requiring the presence of an independent trained observer to assist in the monitoring of the patient's level of consciousness and physiological status; initial 15 minutes of intra-service time; patient age 5 years or older (additional time may be reported with 34571, as appropriate) CPT copyright 2017 [employer]. All rights reserved. The codes documented in this report are preliminary and upon plugger man review may be revised to meet current compliance requirements. Kory Medina DO 10/11/2021 9:10:21 AM This report has been signed electronically. Number of Addenda: 1 Note Initiated On: 10/11/2021 8:15 AM Addendum Number: 1 Addendum Date: 03/21/2022 6:29:22 AM MAC was used as sedation for this procedure. Kory Medina DO 03/21/2022 6:29:26 AM This report has been signed electronically.
--- NOTE | 2021-10-11 09:10 | OP.CCLET_ITS ---
03/21/2022 Richard Dai Re : Colonoscopy procedure for Ministerio Dai This procedure was performed on September. My impressions and recommendations are as follows: Impressions : - Hemorrhoids found on perianal exam. - Diverticulosis in the recto-sigmoid colon, in the sigmoid colon and in the descending colon. - Four 1 to 2 mm polyps in the sigmoid colon and in the ascending colon, removed with a hot snare. Resected and retrieved. Tattooed. - Congested mucosa in the terminal ileum. Biopsied. Recommendations : - Discharge patient to home. - Resume previous diet. - Continue present medications. - Await pathology results. - Repeat colonoscopy in 3 years for surveillance based on pathology results. My findings are described in the full procedure note, which is enclosed. If I can be of further assistance, please feel free to contact me at . Sincerely, Kory Medina, 10/11/2021 9:10:21 AM This report has been signed electronically.
== END 2021-10-11 10:01 | disposition home or self-care (01) ==
LOC: EN 06:58 → AC 07:00
PROVIDERS: PCP Family Medicine; Referring Provider Family Medicine; Visit Provider Internal Medicine Gastroenterology
PROC: 0DJD8ZZ Inspection of Lower Intestinal Tract, Via Natural or Artificial Opening Endoscopic (ICD-10-PCS; CPT 45378; principal; 2021-10-11 08:10)
DX: D12.2 Benign neoplasm of ascending colon (principal); D68.9 Coagulation defect, unspecified; D12.5 Benign neoplasm of sigmoid colon; G43.909 Migraine, unspecified, not intractable, without status migrainosus; Z87.19 Personal history of other diseases of the digestive system; Z79.82 Long term (current) use of aspirin; Z79.899 Other long term (current) drug therapy; K58.9 Irritable bowel syndrome, unspecified; F17.210 Nicotine dependence, cigarettes, uncomplicated; Z90.49 Acquired absence of other specified parts of digestive tract; Z79.02 Long term (current) use of antithrombotics/antiplatelets; K21.9 Gastro-esophageal reflux disease without esophagitis; E78.00 Pure hypercholesterolemia, unspecified; M19.90 Unspecified osteoarthritis, unspecified site; Z87.442 Personal history of urinary calculi; K57.30 Diverticulosis of large intestine without perforation or abscess without bleeding; K64.9 Unspecified hemorrhoids
CPT/HCPCS: 45381; 45385; 45380; 88305; J7120; A4648

== ENCOUNTER → 2022-01-17 | Outpatient (CLI) | payer OTHER, SELFPAY ==
[2022-01-17 18:28] LABS: Amylase 45 U/L (25-115); LDH 146 U/L (87-241); Lipase 182 U/L (73-393)
[2022-01-19 16:08] LABS: Endomysial Antibody IgA Negative (Negative)
[2022-01-21 10:49] LABS: Immunoglobulin A 148 mg/dL (90-386); t-Transglutaminase IgA <2 U/mL (0-3)
[2022-01-21 13:07] LABS: Anti-Centromere B Ab <0.2 AI (0.0-0.9); Anti-Chromatin <0.2 AI (0.0-0.9); Anti-Jo <0.2 AI (0.0-0.9); Anti-Scleroderma-70 AB <0.2 AI (0.0-0.9); RNP Ab <0.2 AI (0.0-0.9); SJOGREN'S Anti-SS-A test < 0.2 AI (0.0-0.9); SJOGREN'S Anti-SS-B test < 0.2 AI (0.0-0.9); Smith Ab <0.2 AI (0.0-0.9)
[2022-01-21 14:13] LABS: Anti-dsDNA Ab <1 IU/mL (0-9)
[2022-01-23 21:07] LABS: Albumin 3.9 g/dL (2.9-4.4); Alpha-1-Globulins 0.3 g/dL (0.0-0.4); Alpha-2-Globulins 0.8 g/dL (0.4-1.0); Cytoplasmic Ab (C-ANCA) <1:20 titer (Neg:<1:20); Gamma Globulin 0.9 g/dL (0.4-1.8); Immunoglobulin A 151 mg/dL (90-386); Immunoglobulin E 37 IU/mL (6-495); Immunoglobulin G 787 mg/dL (603-1613); Immunoglobulin M 78 mg/dL (20-172); PROEL- TOTAL PROTEIN 6.8 g/dL (6.0-8.5)
[2022-01-23 21:17] LABS: Gastrin, Serum 67 pg/mL (0-115); Perinuclear Ab (P-ANCA) <1:20 titer (Neg:<1:20)
== END | disposition home or self-care (01) ==
PROVIDERS: PCP Family Medicine; Referring Provider Internal Medicine Gastroenterology; Visit Provider Internal Medicine Gastroenterology
DX: K52.9 Noninfective gastroenteritis and colitis, unspecified (principal)
CPT/HCPCS: 36415; 82150; 82784; 82785; 82941; 83516; 83615; 83690; 84165; 86225; 86235; 86255; 86256; 86334

== ENCOUNTER → 2022-02-07 | Outpatient (CLI) | payer OTHER, SELFPAY ==
[2022-02-12 07:54] LABS: Calprotectin, Stool 35 ug/g (0-120)
== END | disposition home or self-care (01) ==
LOC: LABSPEC 10:07
PROVIDERS: PCP Family Medicine; Referring Provider Internal Medicine Gastroenterology; Visit Provider Internal Medicine Gastroenterology
DX: K58.9 Irritable bowel syndrome, unspecified (principal)
CPT/HCPCS: 81050; 82653; 83497; 83630; 83993; 84110

== ENCOUNTER → 2022-04-13 | Outpatient (CLI) | payer OTHER, SELFPAY ==
--- NOTE | 2022-04-13 09:59 | CT_ITS ---
STUDY: CT MAXILLOFACIAL SINUSES REASON FOR EXAM: Male, 61 years old. CHRONIC SINUSITIS RADIATION DOSAGE (If Supplied By Facility): CTDIvol = ( 33.06 ) mGy, DLP = ( 854.51 ) mGycm TECHNIQUE: The patient was scanned in a multi detector CT scanner. High resolution axial imaging was performed without the administration of intravenous contrast material. Sagittal and coronal images were reconstructed. Individualized dose optimization techniques were used for this CT. COMPARISON: None. FINDINGS: FRONTAL SINUSES: Normal aeration, without mucosal inflammatory disease. ETHMOIDAL SINUSES: Normal aeration, without mucosal inflammatory disease. MAXILLARY SINUSES: Normal aeration, without mucosal inflammatory disease. SPHENOIDAL SINUSES: Normal aeration, without mucosal inflammatory disease. Evidence of fluid throughout the right mastoids. There is patency of the bilateral maxillary infundibuli with normal uncinate processes, ethmoid bullae, and hiatus semilunaris. Normal bilateral middle turbinates. Normal bilateral inferior turbinates. Normal midline nasal septum. There is patency of the bilateral nasal airways. On axial images 52 through 59, there is erosive change to the left maxilla suggesting periodontal disease. CT/Sinus/Facial Bone IMPRESSION: No CT evidence of frontal, maxillary, ethmoid, or sphenoid sinusitis. Ostiomeatal complexes are widely patent Right mastoiditis Likely left maxillary periodontal disease Electronically Signed: Peter Lopes MD at 10:46 EDT ,
== END | disposition home or self-care (01) ==
LOC: CT 09:56
PROVIDERS: PCP Family Medicine; Referring Provider Otolaryngology; Visit Provider Otolaryngology
DX: J32.9 Chronic sinusitis, unspecified (principal)
CPT/HCPCS: 70486

== ENCOUNTER → 2022-04-17 | Outpatient (CLI) | payer OTHER, SELFPAY ==
--- NOTE | 2022-04-17 08:15 | RAD_ITS ---
PROCEDURE: Air contrast Upper GI with Small Bowel Follow Through DATE OF EXAMINATION: 04/17/2022. INDICATION: Male, 62 years old. History of a prior bleeding ulcers and inflammatory bowel disease. FLUOROSCOPY TIME (if supplied): (1:28) minutes/seconds. 32 images were obtained. TECHNIQUE: Radiographic and fluoroscopic images of the distal esophagus, stomach, and entire small intestine were obtained following the oral ingestion of barium. COMPARISON: None. FINDINGS: The outpatient surgery rn film of the abdomen demonstrates a normal bowel gas pattern. There are no abnormal calcifications or organomegaly demonstrated. The patient ingested barium. The esophagus is unremarkable. No evidence of obstruction. No evidence of reflux. No mass lesion is seen. The stomach and duodenum are unremarkable. There is no evidence of ulceration. No mass lesion is seen. A single contrast small bowel follow through exam demonstrates the small bowel to have no evidence for stricture, ulceration or mass. The transit time is normal at 40 minutes. RAD/Upper GI/w Small Bowel IMPRESSION: 1. Unremarkable air contrast upper GI series and small bowel follow-through examination. Electronically Signed: Ramon Miranda MD at 15:01 EDT ,
== END | disposition home or self-care (01) ==
LOC: RAD 08:02
PROVIDERS: PCP Family Medicine; Visit Provider Internal Medicine Gastroenterology
DX: K52.9 Noninfective gastroenteritis and colitis, unspecified (principal)
CPT/HCPCS: 74246; 74248

== ENCOUNTER → 2022-04-22 | Outpatient (CLI) | payer OTHER, SELFPAY ==
[2022-04-22 15:48] LABS: International Normalized Ratio 1.1; Prothrombin Time (Protime)PT. 13.4 SECONDS (11.7-14.9)
[2022-04-22 16:21] LABS: ALB/GLOB Ratio 1.2 RATIO (0.9-2.4); AST(SGOT) 18 U/L (15-37); Alanine Aminotransfer ALT/SGPT 21 U/L (16-61); Albumin, Serum 4.1 g/dL (3.2-5.0); Alkaline Phosphatase 122 U/L (45-117); Anion Gap 6 (5-15); BUN 12 mg/dL (7-18); BUN/Creat Ratio 10.4 RATIO (10-20); CPK Total, Creatine Kinase 84 U/L (39-308); CRP < 2.90 mg/L (0.0-3.0); Chloride 103 mmol/L (98-107); Creatinine, Serum 1.15 mg/dL (0.70-1.30); EST Glomerular Filtration Rate 69 mL/min (>60); Est Glom Filt Rate - Afr Amer 83 mL/min (>60); Free T3 3.8 pg/mL (2.18-3.98); Globulin 3.5 g/dL (2.2-4.2); Glucose 87 mg/dL (74-106); LDH 153 U/L (87-241); Potassium 3.7 mmol/L (3.5-5.1); Protein, Total 7.6 g/dL (6.4-8.2); Sodium Level 137 mmol/L (136-145); T4 Free Direct 1.02 ng/dL (0.76-1.46); Thyroid Stim Hormone (TSH) 5.25 uIU/mL (0.358-3.74)
[2022-04-22 16:22] LABS: Erythrocyte Sedimentation Rate 5 mm/hr (0-20)
[2022-04-24 14:09] LABS: Anti-Centromere B Ab <0.2 AI (0.0-0.9); Anti-Chromatin <0.2 AI (0.0-0.9); Anti-Jo <0.2 AI (0.0-0.9); Anti-Scleroderma-70 AB <0.2 AI (0.0-0.9); RNP Ab <0.2 AI (0.0-0.9); SJOGREN'S Anti-SS-A test < 0.2 AI (0.0-0.9); SJOGREN'S Anti-SS-B test < 0.2 AI (0.0-0.9); Smith Ab <0.2 AI (0.0-0.9)
[2022-04-24 16:28] LABS: Anti-dsDNA Ab <1 IU/mL (0-9)
[2022-05-01 22:07] LABS: Albumin 4.2 g/dL (2.9-4.4); Alpha-1-Globulins 0.3 g/dL (0.0-0.4); Alpha-2-Globulins 0.9 g/dL (0.4-1.0); Cytoplasmic Ab (C-ANCA) <1:20 titer (Neg:<1:20); Immunoglobulin A 173 mg/dL (61-437); Immunoglobulin E 34 IU/mL (6-495); Immunoglobulin G 914 mg/dL (603-1613); Immunoglobulin M 95 mg/dL (20-172); PROEL- TOTAL PROTEIN 7.4 g/dL (6.0-8.5)
[2022-05-03 14:33] LABS: Aldolase 4.1 U/L (3.3-10.3); C-Peptide 1.9 ng/mL (1.1-4.4); Copper, Serum or Plasma 95 ug/dL (69-132); Perinuclear Ab (P-ANCA) <1:20 titer (Neg:<1:20)
== END | disposition home or self-care (01) ==
LOC: LAB 14:57
PROVIDERS: PCP Family Medicine; Visit Provider Internal Medicine Gastroenterology
DX: R82.998 Other abnormal findings in urine (principal); R10.9 Unspecified abdominal pain; Z87.19 Personal history of other diseases of the digestive system
CPT/HCPCS: 36415; 80053; 82085; 82525; 82550; 82784; 82785; 83615; 84165; 84439; 84443; 84481; 84681; 85610; 85652; 86140; 86225; 86235; 86256; 86334

== ENCOUNTER → 2022-05-17 | Outpatient (CLI) | payer OTHER, SELFPAY ==
--- NOTE | 2022-05-17 07:25 | US_ITS ---
STUDY: ABDOMINAL ULTRASOUND - ELASTOGRAPHY REASON FOR VISIT: Male, 62 years old. History of liver failure. TECHNIQUE: Liver stiffness measurements were obtained on a Aprimo RS 85 ultrasound machine using a CA 1-7 probe following the SRU guidelines. 3 measurements were obtained using a 2-D-SWE method. The IQR/M was 19% suggesting a quality data set. TECHNICAL QUALITY: Adequate. COMPARISON: Comparison is made with prior study dated noted. FINDINGS: Liver: There is no demonstrated mass lesion. Median liver stiffness measured 9.2 kPa. US/Elastography Parenchyma/Organ IMPRESSION: Liver stiffness measures 9.2 kPa compatible with F2-F3 (Mild to moderate liver fibrosis) Metavir score. Electronically Signed: Ramon Miranda MD at 9:21 EST ,
--- NOTE | 2022-05-17 07:25 | US_ITS ---
STUDY: ABDOMINAL ULTRASOUND - RIGHT UPPER QUADRANT REASON FOR VISIT: Male, 62 years old liver -- HX OF DIGESTIVE DISEASE AND LIVER FAILURE TECHNIQUE: Ultrasound evaluation of the right upper quadrant was performed with real-time and static penny-scale imaging. TECHNICAL QUALITY: Adequate. COMPARISON: None. FINDINGS: Liver: The liver measures 15.8 cm. There is normal echogenicity of the liver. The bile ducts are within normal limits. There is hepatic color flow. The direction of portal flow is hepatopetal. There is no demonstrated mass lesion. Gallbladder: The patient is status post cholecystectomy. Common Bile Duct (C.B.D.): The common bile duct measures 4.2 mm. Pancreas: Normal size of the head, body and tail of the pancreas. There is normal echogenicity of the pancreas. There is no demonstrated pancreatic mass or cyst. Right Kidney: Normal size of the right kidney. The right kidney measures 10.3 cm x 4.7 cm x 3.9 cm. Normal renal cortex. The right cortex measures 1.2 cm. There is no demonstrated renal mass or cyst. There is no right hydronephrosis. US/Abdomen Limited IMPRESSION: Status post cholecystectomy. Electronically Signed: Ramon Miranda MD at 9:17 EST ,
== END | disposition home or self-care (01) ==
PROVIDERS: PCP Family Medicine; Referring Provider Internal Medicine Gastroenterology; Visit Provider Internal Medicine Gastroenterology
DX: Z87.19 Personal history of other diseases of the digestive system (principal)
CPT/HCPCS: 76705; 76981

== ENCOUNTER 2022-07-20 19:56 | Emergency (ER) | payer OTHER, SELFPAY ==
[2022-07-20 19:57] VITALS: BP 119/95; PULSE 99; RESP 18; RESP 22; TEMP 36.4; BMI 16.2
--- NOTE | 2022-07-20 19:59 | EDS_ITS ---
HPI History of Present Illness Chief Complaint: Abd Pain Narrative Narrative: 62-year-old male here with abdominal pain. [facility] Medical History (Updated 07/20/22 @ 23:[address] Elmo Hernandez, DO) Arthritis Back pain Celiac artery stenosis Coagulopathy Difficulty chewing Difficulty swallowing Excessive bleeding Gastric reflux GI bleed High cholesterol History of diverticulitis History of GI bleed History of IBS History of steroid therapy History of stress test History of ulceration Injury of head and neck Kidney stones Mesenteric artery stenosis Migraine headache Migraines Smoker Smoker Ulcer Wears glasses Home Medications clopidogrel 75 mg tablet 75 mg PO QHS anti platelet 09/23/16 [History Last Taken 10/07/21] rosuvastatin 10 mg tablet 10 mg PO QHS cholesterol 06/08/18 [History Last Taken 09/12/21] aspirin 81 mg tablet 81 mg PO DAILY heart health 07/20/22 [History Last Taken Unknown] hydromorphone 4 mg tablet (Dilaudid) 4 mg PO Q6H PRN pain 7 days #28 tabs 07/20/22 [Rx Last Taken Unknown] pantoprazole 40 mg tablet,delayed release (Protonix) 20 mg PO QHS acid reflux 07/20/22 [History Last Taken Unknown] Allergy/AdvReac Type Severity Reaction Status Date / Time omeprazole AdvReac Other Verified 10/11/21 07:17 Family History (Updated 09/13/21 @ 16:37 by Madelin Rosa HUMAN RESOURCES CONSULTANT, HUMAN RESOURCES CONSULTANT-C) Father Colon cancer Mother No cardiac disease Surgical History (Updated 10/09/21 @ 11:34 by Yari Webster) History of cholecystectomy History of esophagogastroduodenoscopy (EGD) Hx of cervical spine surgery Hx of colonoscopy Hx of surgical procedure Social History (Updated 09/13/21 @ 16:38 by Madelin Rosa NP, HUMAN RESOURCES CONSULTANT-C) Smoking Status: Current every day smoker tobacco type: cigarettes alcohol intake: current details: occasional use substance use type: does not use ROS ROS ED ROS Narrative Constitutional: Denies fever HEENT: Denies sore throat Neck: Denies neck pain Cardiovascular: Denies chest pain, syncope Respiratory: Denies shortness of breath GI: Endorses abdominal pain : Denies changes in urinary habits Musculoskeletal: Denies muscle or joint pain Neurologic: Denies numbness weakness or loss of sensation Skin denies rash EXAM Physical Exam Narrative Exam Narrative: Nursing triage notes reviewed, Vital signs reviewed Constitutional: please see mdm HENT: MMM Eyes: Pupils equal round and reactive to light, Extraocular muscles intact Neck: No stridor, no JVD, full neck ROM Lungs: Clear to auscultation, No wheezing or rales. No increased work of breathing, no conversational dyspnea, no accessory muscle use, no nasal flaring. No respiratory distress noted Heart: Regular rate and rhythm, No murmurs, No rubs and No gallops, 2+ distal pulses (radial, femoral, posterior tibial) in all extremities Abdomen: Soft, diffuse abdominal TTP, no rigidity, rebound or guarding, no obvious peritoneal signs, no palpable pulsatile abdominal masses, no auscultated abdominal bruit : No CVAT Extremities: No edema Neuro: No focal neurological deficits, cranial nerves II through XII intact, 5/5 strength in all extremities. Intact sensation to light touch in all extremities, 2+ reflexes bilateral patella dens. Normal gait. No ataxia. Skin: No rash or lesions noted Const Vital Signs: 07/20/22 19:57 07/20/22 19:57 07/20/22 22:11 Temperature 97.6 F L 97.6 F L Temperature Source Temporal Temporal Pulse Rate 99 99 79 Respiratory Rate 18 22 H 20 H Blood Pressure 119/95 H 119/95 H 132/88 H Blood Pressure Mean 103 103 102 Pulse Ox 100 Oxygen Delivery Method Room Air 07/20/22 23:40 Temperature Temperature Source Pulse Rate 80 Respiratory Rate 22 H Blood Pressure 143/81 H Blood Pressure Mean Pulse Ox 99 Oxygen Delivery [place] [facility] [place] Medical decision making narrative: Chief Complaint: Abdominal pain External records reviewed: CT scan abdomen pelvis from August 2021 shows colitis involving the transverse and descending colon Upper GI series from March 2022 shows IMPRESSION: 1.? Unremarkable air contrast upper GI series and small bowel follow-through examination. Unremarkable abdominal ultrasound from April 2022 Last GI evaluation and March 2022 I considered: Surgical abdominal pathology such as small bowel obstruction, perforation, appendicitis, acute cholecystitis. Infectious inflammatory etiology such as colitis, diverticulitis. Considered pancreatitis, hepatobiliary pathology, anemia, dehydration, electrolyte abnormalities, decompensated liver cirrhosis. No evidence of decompensated liver cirrhosis, pancreatitis, significant anemia, dehydration or electrode abnormalities. CT scan did not reveal evidence of acute intra-abdominal surgical processes. I did offer the patient admission to the hospital given his severe abdominal pain requiring multiple doses of IV narcotics. He initially wanted to be admitted. Did speak with hospitalist Dr. Alonzo who said that there is not a solid indication for admission at this time. She suggested we offer the patient oral Dilaudid for home-going. I did have a shared decision-making discussion with patient and loved one in the room they were alert and orient x3 had capacity to make their own medical decisions and chose to be discharged home with oral Dilaudid and follow-up with gastroenterology as well as pain management. Factors affecting care: History of GI bleed, coagulopathy, hyperlipidemia, diverticulitis, mesenteric artery stenosis status post celiac artery stent Status post-cholecystectomy, EGD, colonoscopy. Social determinants of health: Poor health literacy Shared decision making: I will have a discussion with the patient and or visitors regarding risk/benefits of further testing or admission. They will be made aware of of the risk/benefits inherent in this decision they will be given the opportunity to voice understanding. Consults: none Did attempt to write the patient oral Dilaudid as an outpatient through meds to beds however our pharmacy does not have oral Dilaudid. I wrote an outpatient prescription for oral Dilaudid for intractable abdominal pain. Lab Data Lab results narrative: CBC with marked leukocytosis suggestive of systemic information, no significant anemia or thrombocytopenia PT, PTT INR within normal limits suggestive of no coagulopathy BMP without significant electrolyte abnormalities, no anion gap to suggest end- organ hypoperfusion, no acute kidney injury LFTs without evidence of significant hepatobiliary pathology or hepatobiliary obstruction Lipase within normal limits negative for pancreatitis Lactate is wnl indicating no end-organ hypoperfusion and/or hypoxia. Labs: Laboratory Results - last 24 hr 07/20/22 07/20/22 07/20/22 20:20 20:20 20:20 WBC 18.5 H RBC 5.39 Hgb 16.4 Hct 47.7 MCV 88.5 MCH 30.4 MCHC 34.4 RDW Std Deviation 43.3 RDW Coeff of Rashida 13.4 Plt Count 221 MPV 13.1 H Immature Gran % (Auto) 0.600 Neut % (Auto) 83.5 H Lymph % (Auto) 7.0 L [place] % (Auto) 8.3 Eos % (Auto) 0.1 Baso % (Auto) 0.5 Absolute Neuts (auto) 15.5 H Absolute Lymphs (auto) 1.30 Nucleated RBC % 0 Differential Comment PT 14.0 INR 1.1 APTT 33.0 Sodium 136 Potassium 3.9 Chloride 104 Carbon Dioxide 22.0 Anion Gap 10 BUN 15 Creatinine 1.17 Estim Creat Clear Calc 48.07 Est GFR (MDRD) Af Amer 81 Est GFR (MDRD) Non-Af 67 BUN/Creatinine Ratio 12.8 Glucose 93 Lactic Acid Calcium 9.7 Total Bilirubin 0.60 Direct Bilirubin 0.17 AST 21 ALT 19 Alkaline Phosphatase 152 H Total Protein 7.9 Albumin 4.2 Globulin 3.7 Lipase 53 L Urine Color Urine Clarity Urine pH Ur Specific [place] Urine Protein Urine Glucose (UA) Urine Ketones Urine Occult Blood Urine Nitrite Urine Bilirubin Urine Urobilinogen Ur Leukocyte Esterase Urine RBC Urine WBC Ur Squamous Epith Cells Urine Bacteria Urine Mucus 07/20/22 07/20/22 20:20 22:20 WBC RBC Hgb Hct MCV MCH MCHC RDW Std Deviation RDW Coeff of [place] Plt Count MPV Immature Gran % (Auto) Neut % (Auto) Lymph % (Auto) [place] % (Auto) Eos % (Auto) Baso % (Auto) Absolute Neuts (auto) Absolute Lymphs (auto) Nucleated RBC % Differential Comment PT INR APTT Sodium Potassium Chloride Carbon Dioxide Anion Gap BUN Creatinine Estim Creat Clear Calc Est GFR (MDRD) Af Amer Est GFR (MDRD) Non-Af BUN/Creatinine Ratio Glucose Lactic Acid 1.8 Calcium Total Bilirubin Direct Bilirubin AST ALT Alkaline Phosphatase Total Protein Albumin Globulin Lipase Urine Color Yellow Urine Clarity Clear Urine pH 5.0 Ur Specific [place] 1.015 Urine Protein 15 H Urine Glucose (UA) Normal Urine Ketones 50 H Urine Occult Blood 25 H Urine Nitrite Negative Urine Bilirubin Negative Urine Urobilinogen Normal Ur Leukocyte Esterase Negative Urine RBC 0 SEEN Urine WBC 0 SEEN Ur Squamous Epith Cells 0 SEEN Urine Bacteria 0 SEEN Urine Mucus 0 SEEN Radiography Diagnostic Testing: Clinical Impression(s) from Imaging Studies Abdomen/Pelvis CT 07/20/22 20:11 IMPRESSION: No acute findings in the abdomen or pelvis. The graft disc protrusions at L4-5 and L5-S1. Electronically Signed: Shahnaz Newman MD at 22:11 EST Reading Location ID and State: [id number] / Tel , Service support , Treatment and Re-Evaluation Narrative: Abdominal exam is still benign Discharge Plan Triage Chief Complaint: Abd Pain ED Provider: Elmo Hernandez Dx/Rx/DC Orders Clinical Impression: Abdominal pain, History of ulcer disease, History of liver failure, High urine total porphyrin Instructions: Abdominal Pain Prescriptions: New hydromorphone [Dilaudid] 4 mg tablet 4 mg PO Q6H PRN (Reason: pain) 7 Days Qty: 28 0RF No Action clopidogrel 75 MG tablet 75 mg PO QHS Hold Instructions: hold for five days, then resume rosuvastatin 10 MG tablet 10 mg PO QHS aspirin 81 mg Tablet 81 mg PO DAILY pantoprazole [Protonix] 40 mg tablet,delayed release (DR/EC) 20 mg PO QHS Primary Care Provider: Richard Dai Referrals: Luis Noble DO [Non-Staff] - Friend,DO Kory [Med Staff - Active Staff] - Activity Restrictions/Additional Instructions: Please take Dilaudid for pain. Please take zofran for nausea. Please return for worsening pain. Please follow-up with your GI doctor. Please follow-up with Dr. Noble for ongoing pain management. Disposition Disposition: Home, Self Care
--- NOTE | 2022-07-20 20:11 | CT_ITS ---
EXAM: CT ABDOMEN AND PELVIS WITH INTRAVENOUS CONTRAST CLINICAL INDICATION: History of celiac artery stents, abdominal pain TECHNIQUE: Helically acquired images were obtained of the abdomen and pelvis with intravenous contrast. This CT exam was performed using one or more of the following dose reduction techniques: automated exposure control, adjustment of the mA and/or kV according to patient size, and/or use of iterative reconstruction technique. This report was created using [employer] (IM[employer]) report generation technology. CONTRAST: IV 100mL [id number] COMPARISON: None. FINDINGS: LOWER THORAX: Unremarkable. Lung bases are clear. No cardiomegaly. No significant pericardial effusion. ABDOMEN: LIVER: Unremarkable. Homogeneous. No focal mass. GALLBLADDER AND BILE DUCTS: Gallbladder is surgically absent. No intra- or extrahepatic biliary ductal dilation. PANCREAS: Unremarkable. No focal cystic or solid mass. SPLEEN: Unremarkable. Normal size without focal cystic or solid mass. ADRENALS: Unremarkable. No nodules. KIDNEYS AND URETERS: Unremarkable. Normal renal size and position. No hydronephrosis. STOMACH AND BOWEL: Unremarkable. No stomach or bowel distention. No focal inflammatory change. PELVIS: APPENDIX: No evidence of acute appendicitis. BLADDER: Unremarkable. REPRODUCTIVE: Unremarkable as visualized. No mass. ABDOMEN and PELVIS: INTRAPERITONEAL SPACE: Unremarkable. No ascites or other fluid collection. No free air. BONES/JOINTS: Unremarkable. No suspicious lytic or blastic abnormality. SOFT TISSUES: Unremarkable. No discrete abdominal or pelvic wall hernia. VASCULATURE: Celiac and SMA stents. LYMPH NODES: Unremarkable. No enlarged lymph nodes. OTHER: Small disc protrusions at L4-5 and L5-S1. CT/Abdomen/Pelvis W IV Cont ONLY IMPRESSION: No acute findings in the abdomen or pelvis. The graft disc protrusions at L4-5 and L5-S1. Electronically Signed: Shahnaz Newman MD at 22:11 EST Reading Location ID and State: [id number] / Tel , Service support ,
[2022-07-20] MEDS: Ondansetron 4 MG/2 ML Vial IV (20:22)
[2022-07-20] MEDS: Morphine 4 MG/ML Syringe IV (20:22)
[2022-07-20] MEDS: Ketorolac 15 MG/ML Vial IV (20:22)
[2022-07-20] MEDS: 0.9% Normal Saline 1,000 ML 1000 ML IV (20:22)
[2022-07-20 20:43] LABS: Absolute Neutrophil Count 15.5 X10^3/uL (2.0-7.7); Basophil# 0.09 X10^3/uL; Basophil% 0.5 % (0-1); Eosinophil# 0.02 X10^3/uL; Eosinophils% 0.1 % (0-5); Hematocrit 47.7 % (40-54); Hemoglobin 16.4 g/dL (13.0-16.5); Mean Corp Hgb Conc 34.4 g/dL (32-36); Mean Corpuscular Hgb 30.4 pg (27.0-32.0); Mean Corpuscular Volume 88.5 fL (80-94); Mean Platelet Vol. 13.1 fl (6.2-12.0); Monocyte# 1.54 X10^3/uL; Monocyte% 8.3 % (0-10); NRBC Flagged by Analyzer 0 % (0-5); Neutrophil # 15.47 X10^3/uL (2.7-7.7); Neutrophil % 83.5 % (47-70); POSITIVE DIFFERENTIAL YES; Platelet Count 221 K/mm3 (150-450); RBC Distribution Width CV 13.4 % (11.6-14.6); RBC Distribution Width SD 43.3 fl (35.1-43.9); Red Blood Count 5.39 M/mm3 (4.6-6.2); White Blood Count 18.5 K/mm3 (4.4-11.0)
[2022-07-20 20:47] LABS: Differential Indicated SCAN CRITERIA MET
[2022-07-20 20:54] LABS: International Normalized Ratio 1.1
[2022-07-20 20:57] LABS: AST(SGOT) 21 U/L (15-37); Alanine Aminotransfer ALT/SGPT 19 U/L (16-61); Albumin, Serum 4.2 g/dL (3.2-5.0); Alkaline Phosphatase 152 U/L (45-117); Anion Gap 10 (5-15); BUN 15 mg/dL (7-18); BUN/Creat Ratio 12.8 RATIO (10-20); Bilirubin, Direct 0.17 mg/dL (0.00-0.30); Calcium,Total 9.7 mg/dL (8.5-10.1); Chloride 104 mmol/L (98-107); Creatinine, Serum 1.17 mg/dL (0.70-1.30); EST Glomerular Filtration Rate 67 mL/min (>60); Est Glom Filt Rate - Afr Amer 81 mL/min (>60); Estimated Creatinine Clearance 48.07 ml/min; Globulin 3.7 g/dL (2.2-4.2); Glucose 93 mg/dL (74-106); Lipase 53 U/L (73-393); Potassium 3.9 mmol/L (3.5-5.1); Protein, Total 7.9 g/dL (6.4-8.2); Sodium Level 136 mmol/L (136-145)
[2022-07-20 21:00] LABS: Lactic Acid 1.8 mmol/L (0.4-1.9)
[2022-07-20 22:11] VITALS: BP 132/88; PULSE 79; RESP 20; O2SAT 100
[2022-07-20] MEDS: HYDROmorphone 1 MG/ML Syringe IV ×2 (22:20→23:56)
[2022-07-20 22:28] LABS: Bacteria 0 SEEN /hpf (None Seen); Mucous, Urine 0 SEEN /hpf (<or=2+); Red Blood Cells-Urine 0 SEEN /hpf (0-5); Squamous Epithelial Cells - UA 0 SEEN /hpf (0-5); White Blood Cells 0 SEEN /hpf (0-5)
[2022-07-20 22:29] LABS: Color, Urine Yellow (Yellow); Glucose, Dipstick Normal (Normal); Ketone-Dipstick 50 mg/dl (Negative); Leukocyte Esterase-Dipstick Negative /ul (Negative); Nitrite-Dipstick Negative (Negative); Occult Blood-Urine 25 /ul (Negative); Protein-Dipstick 15 mg/dl (Negative); Specific Gravity, Urine 1.015 (1.002-1.030); Urine Bilirubin Dipstick Negative (Negative); Urine Clarity Clear (Clear); Urine Urobilinogen Normal (Normal)
[2022-07-20 23:40] VITALS: BP 143/81; PULSE 80; RESP 22; O2SAT 99
== END 2022-07-21 00:02 | disposition home or self-care (01) ==
PROVIDERS: Emergency Provider Emergency Medicine; PCP Family Medicine; Visit Provider Emergency Medicine
DX: R10.9 Unspecified abdominal pain (principal); F17.210 Nicotine dependence, cigarettes, uncomplicated; Z79.82 Long term (current) use of aspirin
CPT/HCPCS: 74177; 80048; 80076; 81001; 83605; 83690; 85025; 85610; 85730; 96361; 96374; 96375; 96376; 99282; J7030; Q9967; A4216; J2405

== ENCOUNTER 2022-08-24 14:46 | Inpatient (IN) | payer OTHER, SELFPAY ==
[2022-08-24] VITALS (11 sets, daily range): BP systolic 83–156; BP diastolic 48–82; PULSE 66–81; RESP 16–20; TEMP 36.1–37.5; O2SAT 95–98; BMI 17.2
--- NOTE | 2022-08-24 15:08 | EDS_ITS ---
HPI History of Present Illness Chief Complaint: Abd Pain Informant: patient Onset/Context/Timing Onset: Days (3 days) Timing: Waxes and wanes Current Severity: Severe Maximum Severity: Severe Narrative Narrative: Patient presents complaining of abdominal pain and. He has history of intermittent abdominal pain and has stents in his celiac and mesenteric arteries secondary to prior stenosis. He also has a history of IBS and colitis. Patient reports this episode of pain started 2 days ago. Has not been able to eat since. He has had dry heaves with mucus that today is blood-tinged. He denies diarrhea but is passing gas. He was seen at the emergency room at [facility] yesterday. Lab work was reportedly unremarkable and initial CT scan with contrast was read as normal. Per their notes, the radiologist later called back stating that the patient did have evidence of colitis. They attempted to contact the patient but were unable to. [facility] Medical History Arthritis Back pain Celiac artery stenosis Coagulopathy Difficulty chewing Difficulty swallowing Excessive bleeding Gastric reflux GI bleed High cholesterol History of diverticulitis History of GI bleed History of IBS History of steroid therapy History of stress test History of ulceration Injury of head and neck Kidney stones Mesenteric artery stenosis Migraine headache Migraines Smoker Smoker Ulcer Wears glasses Home Medications clopidogrel 75 mg tablet 75 mg PO QHS anti platelet 09/23/16 [History Last Taken 10/07/21] rosuvastatin 10 mg tablet 10 mg PO QHS cholesterol 06/08/18 [History Last Taken 09/12/21] aspirin 81 mg tablet 81 mg PO DAILY heart health 07/20/22 [History Last Taken Unknown] pantoprazole 40 mg tablet,delayed release (Protonix) 20 mg PO QHS acid reflux 07/20/22 [History Last Taken Unknown] duloxetine 30 mg capsule,delayed release (Cymbalta) 30 mg PO DAILY #30 caps 07/25/22 [Rx Last Taken Unknown] ondansetron 4 mg disintegrating tablet 4 mg PO Q8H PRN PRN Nausea #10 tabs 08/24/22 [Rx Last Taken Unknown] oxycodone-acetaminophen 5 mg-325 mg tablet (Percocet) 1 tab PO Q8H PRN pain 3 days #10 tabs 08/24/22 [Rx Last Taken Unknown] Allergy/AdvReac Type Severity Reaction Status Date / Time omeprazole AdvReac Other Verified 08/24/22 14:47 Family History Father Colon cancer Mother No cardiac disease Surgical History History of cholecystectomy History of esophagogastroduodenoscopy (EGD) Hx of cervical spine surgery Hx of colonoscopy Hx of surgical procedure Social History Smoking Status: Current every day smoker tobacco type: cigarettes alcohol intake: current details: occasional use substance use type: does not use ROS ROS ED Constitutional Constitutional ED: Denies chills or fever(s) Eyes Eyes: Denies change in vision or discharge from eye(s) ENT ENT ED: Denies discharge from eye(s), rhinorrhea or sore throat Cardiovascular Cardiovascular: Denies chest pain or palpitations Respiratory/Chest Respiratory/Chest: Denies cough or dyspnea Gastrointestinal Gastrointestinal: Reports abdominal pain, nausea and vomiting; Denies diarrhea Genitourinary Genitourinary ED: Denies dysuria Musculoskeletal Musculoskeletal: Denies back pain or extremity pain Integumentary Denies Abrasions or rash Neurologic Neurologic: Denies headache(s) or weakness Allergic/Immunologic Allergic/Immunologic ED: Denies lip swelling or urticaria EXAM Physical Exam Const Vital Signs: 08/24/22 14:47 08/24/22 15:56 08/24/22 15:56 Temperature 97.8 F Temperature Source Temporal Pulse Rate 78 81 77 Respiratory Rate 18 18 18 Blood Pressure 156/78 H 137/71 H 83/50 L Blood Pressure Mean 104 93 61 Pulse Ox 97 97 97 Oxygen Delivery Method Room Air 08/24/22 16:17 08/24/22 16:35 08/24/22 16:50 Temperature Temperature Source Pulse Rate 70 78 70 Respiratory Rate 18 18 16 Blood Pressure 96/82 H 100/60 113/52 L Blood Pressure Mean 86 73 72 Pulse Ox Oxygen Delivery Method Positive well nourished and well developed General Appearance ED: well developed HEENT Reports normocephalic and head/scalp atraumatic Eyes PERRL and EOMs intact bilaterally Neck supple Chest Wall inspection of chest normal and palpation of chest normal Resp normal respiratory effort and clear to auscultation bilaterally Cardio regular rate and regular rhythm GI GI Narrative: Diffuse tenderness with hypoactive bowel sounds. Extremity normal to inspection Neuro oriented x3 and no sensory deficits noted Sensorium / Orientation: alert Motor Exam: strength 5/5 throughout Psych Mood & Affect: anxious Skin no rashes or lesions noted MDM MDM MDM Narrative Medical decision making narrative: Patient given Dilaudid and Zofran for pain and nausea control. IV fluids given. Lab work obtained to evaluate for leukocytosis, anemia, electrolyte abnormality. Lactic acid obtained to evaluate for bowel ischemia. I did review the CT scan from yesterday at outside facility. CT with IV contrast was obtained and does show the stents with contrast distal. There is mild wall thickening of the descending colon and mild pericolonic stranding. Lab Data Labs: Laboratory Results - last 24 hr 08/24/22 08/24/22 08/24/22 15:15 15:15 15:35 WBC 4.7 RBC 4.97 Hgb 15.1 Hct 43.6 MCV 87.7 MCH 30.4 MCHC 34.6 RDW Std Deviation 44.2 H RDW Coeff of Rashida 13.6 Plt Count 116 L MPV 13.1 H Immature Gran % (Auto) 0.200 Neut % (Auto) 59.4 Lymph % (Auto) 10.6 L Robertson % (Auto) 29.6 H Eos % (Auto) 0.0 Baso % (Auto) 0.2 Absolute Neuts (auto) 2.8 Absolute Lymphs (auto) 0.50 L Nucleated RBC % 0 Differential Comment SCANNED Sodium 134 L Potassium 3.6 Chloride 101 Carbon Dioxide 21.0 Anion Gap 12 BUN 18 Creatinine 1.24 Estim Creat Clear Calc 48.31 Est GFR (MDRD) Af Amer 76 Est GFR (MDRD) Non-Af 63 BUN/Creatinine Ratio 14.5 Glucose 93 Lactic Acid 1.6 Calcium 8.8 Total Bilirubin 0.40 Direct Bilirubin 0.13 AST 30 ALT 21 Alkaline Phosphatase 114 Total Protein 6.7 Albumin 3.6 Globulin 3.1 Lipase 74 Differential Diagnosis Abdominal Pain: Pancreatitis Reason(s) Pancreatitis less likely: NL lab values and Bowel obstruction Reason(s) bowel obstruction less likely: bowel sounds present on exam and other (Passing gas.) Management Discussion w/another healthcare provider: Dryer [employer] Washer Mechanic (Dr. Medina, gastroenterology) Treatment and Re-Evaluation :: After being given Dilaudid patient's blood pressure did drop to the high 80s, however this did improve with IV hydration. Zofran did help control his nausea. CBC and chemistry studies are unremarkable. Lactic acid is normal. Lipase is normal. I did speak Dr. Medina, patient's electronics test engineer. He knows this patient well. He does not feel that the patient needs to be on antibiotics as he does not have infectious colitis. He states ideally the patient needs to stop smoking. He has had multiple vascular studies that show the stents to be open. At this time patient is willing to try going home with analgesics and nausea meds. He was advised that if he fails outpatient treatment he may require admission. He voices understanding and agreement. Addendum: Prior to the patient leaving he states that he does not feel that his symptoms are well enough controlled to go home. He states that when he left the hospital at [facility] yesterday he had Percocet and Zofran to take. In spite of try to take this at home is symptoms were not controlled. He feels this is already a failure of outpatient treatment. I will speak with hospitalist. Discharge Plan Triage Chief Complaint: Abd Pain ED Provider: Kristine Parker Dx/Rx/DC Orders Clinical Impression: Abdominal pain, Vomiting Instructions: ED Vomiting (Adult), ED Abdominal Pain Unkn Cause Male... Prescriptions: New oxycodone-acetaminophen [Percocet] 5-325 mg tablet 1 tab PO Q8H PRN (Reason: pain) 3 Days Qty: 10 0RF ondansetron 4 mg tablet,disintegrating 4 mg PO Q8H PRN PRN (Reason: Nausea) Qty: 10 0RF No Action clopidogrel 75 MG tablet 75 mg PO QHS Hold Instructions: hold for five days, then resume rosuvastatin 10 MG tablet 10 mg PO QHS aspirin 81 mg Tablet 81 mg PO DAILY pantoprazole [Protonix] 40 mg tablet,delayed release (DR/EC) 20 mg PO QHS duloxetine [Cymbalta] 30 mg capsule,delayed release(DR/EC) 30 mg PO DAILY Qty: 30 2RF Primary Care Provider: Richard Dai Referrals: Kory Medina DO [Med Staff - Active Staff] - 1-2 Weeks Richard Dai MD [Primary Care Provider] - Disposition Disposition: Acute Care [facility]
[2022-08-24] MEDS: HYDROmorphone 1 MG/ML Syringe IV (15:11)
[2022-08-24] MEDS: Ondansetron 4 MG/2 ML Vial IV (15:11)
[2022-08-24] MEDS: 0.9% Normal Saline 1,000 ML 1000 ML IV (15:14)
[2022-08-24 15:36] LABS: Absolute Neutrophil Count 2.8 X10^3/uL (2.0-7.7); Basophil# 0.01 X10^3/uL; Basophil% 0.2 % (0-1); Hematocrit 43.6 % (40-54); Hemoglobin 15.1 g/dL (13.0-16.5); Lymphocyte % 10.6 % (19-41); Mean Corp Hgb Conc 34.6 g/dL (32-36); Mean Corpuscular Hgb 30.4 pg (27.0-32.0); Mean Corpuscular Volume 87.7 fL (80-94); Mean Platelet Vol. 13.1 fl (6.2-12.0); Monocyte% 29.6 % (0-10); NRBC Flagged by Analyzer 0 % (0-5); Neutrophil # 2.81 X10^3/uL (2.7-7.7); Neutrophil % 59.4 % (47-70); POSITIVE DIFFERENTIAL YES; Platelet Count 116 K/mm3 (150-450); RBC Distribution Width CV 13.6 % (11.6-14.6); RBC Distribution Width SD 44.2 fl (35.1-43.9); Red Blood Count 4.97 M/mm3 (4.6-6.2); White Blood Count 4.7 K/mm3 (4.4-11.0)
[2022-08-24 15:40] LABS: Differential Indicated SCAN CRITERIA MET
[2022-08-24 15:55] LABS: Differential Comment SCANNED
[2022-08-24 15:56] LABS: AST(SGOT) 30 U/L (15-37); Alanine Aminotransfer ALT/SGPT 21 U/L (16-61); Albumin, Serum 3.6 g/dL (3.2-5.0); Alkaline Phosphatase 114 U/L (45-117); Anion Gap 12 (5-15); BUN 18 mg/dL (7-18); BUN/Creat Ratio 14.5 RATIO (10-20); Bilirubin, Direct 0.13 mg/dL (0.00-0.30); Calcium,Total 8.8 mg/dL (8.5-10.1); Chloride 101 mmol/L (98-107); Creatinine, Serum 1.24 mg/dL (0.70-1.30); EST Glomerular Filtration Rate 63 mL/min (>60); Est Glom Filt Rate - Afr Amer 76 mL/min (>60); Estimated Creatinine Clearance 48.31 ml/min; Globulin 3.1 g/dL (2.2-4.2); Glucose 93 mg/dL (74-106); Lipase 74 U/L (73-393); Potassium 3.6 mmol/L (3.5-5.1); Protein, Total 6.7 g/dL (6.4-8.2); Sodium Level 134 mmol/L (136-145)
[2022-08-24 16:14] LABS: Lactic Acid 1.6 mmol/L (0.4-1.9)
[2022-08-24] MEDS: fentaNYL 100 MCG/2 ML Ampul 50 MCG IV (16:49)
[2022-08-24] MEDS: 0.9% Normal Saline 1,000 ML 999 ML IV (16:49)
--- NOTE | 2022-08-24 17:51 | ED.RN ---
TALKED WITH PT REGARDING DC. PT NOW CONCERNED THAT HE SHOULDNT GO HOME AND WILL JUST END UP BACK. DISCUSSED ADMISSION CRITERIA, PT APPREHENSIVE. DR RODRIGUEZ AWARE AND TO TALK WITH PT AGAIN
--- NOTE | 2022-08-24 18:17 | PCM.HP.STD ---
HPI - General General Date of Admission: 08/24/22 Date of Service: 08/24/22 Chief Complaint: Actable nausea and vomiting/abdominal pain HPI Narrative RAJENDRA HOFFMAN, is a 62 M who presented to the emergency department at [facility] on 08/24/2022 with a chief complaint of abdominal pain and intractable nausea vomiting. This is the third day that he has had symptoms and has not been able to eat during this time. He evidently was in the emergency department at outside hospital in [place] yesterday per his report the lab work was unremarkable and the initial CT scan with contrast was read as normal but per documentation the radiologist called back later stating that he did have evidence of colitis and they attempted to contact the patient but were unable to get a hold of him. He has a complicated history with regards to his abdominal pain and has had this multiple times in the past. He has seen Dr. Medina several times from gastroenterology. But his last visit there was on 04/22/2022. At that time he was noted to have a high urine porphyrin level and further testing was performed but there is no follow-up after this outpatient appointment. He did have a liver elastography performed on 05/17/2022 that showed mild to moderate liver fibrosis. And he does have 2 stents placed in 2019 and the celiac and 2 stents in the mesenteric artery. He is still smoking but states he has quit back significantly. Per his he gets a couple episodes a year but she states this is the most severe episode he has had. He complains that lying on his back make his symptoms worse and he feels more comfortable lying on his side. Vital signs on presentation temp 97.8, HR 78, BP 83/50 but improving to 113/52 with ivf, RR 18, SpO2 97% RA. His CBC was overall unremarkable other than a thrombocytopenia with a platelet count of 116. He does have a monocytosis at 29.6%. His chemistry panel showed mild hyponatremia with a sodium of 134 but was otherwise unremarkable. Amylase and lipase are normal. Liver function is normal. He had a CTA of his abdomen pelvis yesterday that showed some mild ischemic colitis but was otherwise unremarkable. The emergency department physician tried to get him home however he was having ongoing pain nausea and vomiting and was not able to eat or drink anything in the emergency department therefore they called Dr. Medina who states he has bouts of these every 2 to 3 months. His blood pressure is on the lower side and I suspect he probably is volume depleted some however not severe enough to elevate his serum creatinine and may be blood flow to his gut is compromised causing ischemia with his known stenosis. [facility] Medical History Arthritis Back pain Celiac artery stenosis Coagulopathy Difficulty chewing Difficulty swallowing Excessive bleeding Gastric reflux GI bleed High cholesterol History of diverticulitis History of GI bleed History of IBS History of steroid therapy History of stress test History of ulceration Injury of head and neck Kidney stones Mesenteric artery stenosis Migraine headache Migraines Smoker Smoker Ulcer Wears glasses Home Medications clopidogrel 75 mg tablet 75 mg PO QHS anti platelet 09/23/16 [History Last Taken 10/07/21] rosuvastatin 10 mg tablet 10 mg PO QHS cholesterol 06/08/18 [History Last Taken 09/12/21] aspirin 81 mg tablet 81 mg PO DAILY heart health 07/20/22 [History Last Taken Unknown] pantoprazole 40 mg tablet,delayed release (Protonix) 20 mg PO QHS acid reflux 07/20/22 [History Last Taken Unknown] duloxetine 30 mg capsule,delayed release (Cymbalta) 30 mg PO DAILY #30 caps 07/25/22 [Rx Last Taken Unknown] ondansetron 4 mg disintegrating tablet 4 mg PO Q8H PRN PRN Nausea #10 tabs 08/24/22 [Rx Last Taken Unknown] oxycodone-acetaminophen 5 mg-325 mg tablet (Percocet) 1 tab PO Q8H PRN pain 3 days #10 tabs 08/24/22 [Rx Last Taken Unknown] Allergy/AdvReac Type Severity Reaction Status Date / Time omeprazole AdvReac Other Verified 08/24/22 14:47 Family History Father Colon cancer Mother No cardiac disease Surgical History History of cholecystectomy History of esophagogastroduodenoscopy (EGD) Hx of cervical spine surgery Hx of colonoscopy Hx of surgical procedure Social History Smoking Status: Current every day smoker tobacco type: cigarettes alcohol intake: current details: occasional use substance use type: does not use ROS Constitutional Constitutional: Reports anorexia; Denies change in weight, chills, fatigue, fever(s), malaise, night sweats, weakness or other Eyes Eyes: Denies blurry vision, change in eye color, change in vision, discharge from eye(s), double vision, erythema, eye pain, loss of vision or other ENT HEENT: Denies abnormal hearing, dysphagia, ear pain, epistaxis, headache(s), hearing loss, nasal congestion, nasal discharge, post nasal drip, sinus pressure, sore throat or other Cardiovascular Cardiovascular: Denies chest pain, claudication, dyspnea on exertion, edema, lightheadedness, orthopnea, palpitations, paroxysmal nocturnal dyspnea, rapid heart rate, syncope or other Respiratory/Chest Respiratory/Chest: Denies cough, dyspnea, excessive phlegm production, hemoptysis, productive cough, shortness of breath at rest, shortness of breath with exertion, wheezing or other Gastrointestinal Gastrointestinal: Reports abdominal pain, nausea and vomiting; Denies coffee ground emesis, constipation, diarrhea, dyspepsia, hematemesis, hematochezia, loose stools, melena or other Genitourinary Genitourinary: Denies burning urination, difficulty urinating, dysuria, hematuria, nocturia, urinary frequency, urinary hesitancy, urinary incontinence, urinary urgency or other Musculoskeletal Musculoskeletal: Denies arthralgias, back pain, joint pain, joint stiffness, joint swelling, myalgias, neck pain or other Neurologic Neurologic: Denies abnormal gait, abnormal speech, confusion, disequilibrium, dizziness, focal weakness, headache(s), numbness, paresthesias, seizure-like activity, seizures, syncope, tingling, tremor(s) or other Psychiatric Psychiatric: Reports anxiety; Denies depression, homicidal ideation, suicidal ideation or other Endocrine Endocrinology: Denies change in body appearance, cold intolerance, excessive sweating, heat intolerance, polydipsia, polyuria or other Hematologic/Lymphatic Hematologic/Lymphatic: Denies anemia, easy bleeding, easy bruising, lymphadenopathy or other Allergic/Immunologic Allergic/Immunologic: Denies rhinitis, hives, eczemia, asthma or other Vital Signs Vital Signs Vital Signs: 08/24/22 14:47 08/24/22 15:56 08/24/22 15:56 Temperature 97.8 F Temperature Source Temporal Pulse Rate 78 81 77 Respiratory Rate 18 18 18 Blood Pressure 156/78 H 137/71 H 83/50 L Blood Pressure Mean 104 93 61 Pulse Ox 97 97 97 Oxygen Delivery Method Room Air 08/24/22 16:17 08/24/22 16:35 08/24/22 16:50 Temperature Temperature Source Pulse Rate 70 78 70 Respiratory Rate 18 18 16 Blood Pressure 96/82 H 100/60 113/52 L Blood Pressure Mean 86 73 72 Pulse Ox Oxygen Delivery Method Weight Weight: 54.601 kg Body Mass Index (BMI) 17.2 Physical Exam Const alert and oriented x3 Constitutional Narrative: Upper middle-aged white male lying in bed on left side, appears uncomfortable but not toxic, at bedside, thin, appears malnourished General Appearance: cooperative HEENT normocephalic, head/scalp atraumatic and moist oral mucous membranes; Negative for hearing grossly normal bilaterally HEENT Narrative: Hearing loss left ear Eyes PERRL, EOMs intact bilaterally and conjunctivae normal Eyes Narrative: No scleral icterus Neck no lymphadenopathy, supple, no JVD and no carotid bruits Resp normal respiratory effort, no retractions, no use of accessory muscles and clear to auscultation bilaterally Resp Narrative: Diffusely diminished but clear Auscultation: Negative for rales, rhonchi or wheezes Cardio regular rate, regular rhythm, S1 normal heart sound, S2 normal heart sound, no murmurs, no rub, no gallops and no clicks GI GI Narrative: Diffuse tenderness with guarding, bowel sounds are normal, abdomen is soft and not distended Extremity no clubbing, cyanosis or edema Extremity Narrative: 1+ pedal pulses bilateral lower extremities, 2+ radial pulses Neuro oriented x3, CN's II-XII intact bilaterally, moves all extremities and no focal motor deficits Speech: speech normal Psych Mood & Affect: anxious Results Lab / Micro Data Result Diagrams: 08/24/22 15:15 08/24/22 15:15 Labs: Laboratory Results - last 24 hr 08/24/22 15:15: WBC 4.7, RBC 4.97, Hgb 15.1, Hct 43.6, MCV 87.7, MCH 30.4, MCHC 34.6, RDW Std Deviation 44.2 H, RDW Coeff of Rashida 13.6, Plt Count 116 L, MPV 13.1 H, Immature Gran % (Auto) 0.200, Neut % (Auto) 59.4, Lymph % (Auto) 10.6 L, [place] % (Auto) 29.6 H, Eos % (Auto) 0.0, Baso % (Auto) 0.2, Absolute Neuts (auto) 2.8, Absolute Lymphs (auto) 0.50 L, Nucleated RBC % 0, Differential Comment SCANNED 08/24/22 15:15: Sodium 134 L, Potassium 3.6, Chloride 101, Carbon Dioxide 21.0, Anion Gap 12, BUN 18, Creatinine 1.24, Estim Creat Clear Calc 48.31, Est GFR (MDRD) Af Amer 76, Est GFR (MDRD) Non-Af 63, BUN/Creatinine Ratio 14.5, Glucose 93, Calcium 8.8, Total Bilirubin 0.40, Direct Bilirubin 0.13, AST 30, ALT 21, Alkaline Phosphatase 114, Total Protein 6.7, Albumin 3.6, Globulin 3.1, Lipase 74 08/24/22 15:35: Lactic Acid 1.6 Assessment & Plan Assessment/Plan (1) Abdominal pain: (2) Vomiting: (3) Mesenteric ischemia, chronic: (4) Thrombocytopenia: PLAN: Plan Abdominal pain/nausea/vomiting-intractable -Discussed case with Dr. Medina and he suspects this is related to his chronic mesenteric ischemia -CT scan done at outside hospital in [place] yesterday showed some colitis -Amylase and lipase are normal -Lactate is normal -Oral intake has been poor and blood pressures were on the low side for him -Aggressive IV fluids -Pain medication -Antiemetics -Clear liquid diet and advance as tolerated Thrombocytopenia -This appears to be new -Patient does have some baseline liver disease that is mild to moderate -Repeat in a.m. Mesenteric ischemia -Patient did not meet criteria for porphyria -Was seeing chronic pain previously for his chronic abdominal pain however was fired because he would not quit smoking and this was contributing to his abdominal pain -Has had extensive work-up--> see Dr. Medina note from 04/22/2022 -In 2019 had stents placed in the celiac and mesenteric artery--> 2 stents in his vessel -These were patent on his imaging yesterday -Continue aspirin and Plavix Severe malnutrition -BMI is 17.3 -Suspect this is related to his mesenteric ischemia plus pulmonary cachexia -Add supplements when able to take p.o. -Consult dietitian if here through the weekend GERD -Continue home Protonix -We will utilize IV Protonix while hospitalized Suspected COPD -Recommend outpatient follow-up with pulmonary medicine Depression -Continue duloxetine Tobacco abuse -Recommend cessation -Patient denies need for nicotine patch DVT prophylaxis -Lovenox daily CODE STATUS -Full code Charges/Coding Visit Charges Inpatient E&M: 82156 Init Hosp L2
[2022-08-24 18:34] LABS: Amylase 33 U/L (25-115)
[2022-08-24] MEDS: proCHLORPERazine 10 MG/2 ML Vial 5 MG IV (19:16)
[2022-08-24] MEDS: Morphine 4 MG/ML Syringe IV (19:16)
[2022-08-24] MEDS: 0.9% Saline Lock 10 ML Syringe IV (19:17)
[2022-08-24] MEDS: Lactated Ringers 1,000 ML 100 ML IV (19:21)
[2022-08-24] MEDS: Atorvastatin Calcium 20 MG Tablet PO (21:01)
[2022-08-24] MEDS: Pantoprazole Sodium 20 MG Tablet PO (21:01)
[2022-08-24] MEDS: Clopidogrel Bisulfate 75 MG Tablet PO (21:01)
[2022-08-25 00:30] VITALS: BP 110/68; PULSE 65; RESP 18; TEMP 37.1; O2SAT 98
[2022-08-25] MEDS: Morphine 2 MG/ML Syringe IV ×2 (00:31→05:28)
[2022-08-25 05:26] VITALS: BP 124/94; PULSE 69; RESP 20; TEMP 37.3; O2SAT 99
[2022-08-25] MEDS: Lactated Ringers 1,000 ML 100 ML IV ×3 (05:28→22:29)
[2022-08-25] MEDS: Ondansetron 4 MG/2 ML Vial IV (05:29)
[2022-08-25 05:31] LABS: Absolute Lymphocyte Count 0.89 X10^3/uL (0.83-4.51); Absolute Neutrophil Count 2.7 X10^3/uL (2.0-7.7); Basophil# 0.01 X10^3/uL; Basophil% 0.2 % (0-1); Hematocrit 41.2 % (40-54); Lymphocyte # 0.89 X10^3/ul (0.83-4.51); Lymphocyte % 21.2 % (19-41); Mean Corpuscular Hgb 30.3 pg (27.0-32.0); Mean Corpuscular Volume 89.2 fL (80-94); Mean Platelet Vol. 13.3 fl (6.2-12.0); Monocyte# 0.61 X10^3/uL; Monocyte% 14.6 % (0-10); NRBC Flagged by Analyzer 0 % (0-5); Neutrophil # 2.67 X10^3/uL (2.7-7.7); Neutrophil % 63.8 % (47-70); Platelet Count 101 K/mm3 (150-450); RBC Distribution Width CV 13.8 % (11.6-14.6); RBC Distribution Width SD 45.4 fl (35.1-43.9); Red Blood Count 4.62 M/mm3 (4.6-6.2); White Blood Count 4.2 K/mm3 (4.4-11.0)
[2022-08-25 05:43] LABS: ALB/GLOB Ratio 1.1 RATIO (0.9-2.4); AST(SGOT) 30 U/L (15-37); Alanine Aminotransfer ALT/SGPT 19 U/L (16-61); Albumin, Serum 2.8 g/dL (3.2-5.0); Alkaline Phosphatase 92 U/L (45-117); Anion Gap 9 (5-15); BUN 17 mg/dL (7-18); BUN/Creat Ratio 17.3 RATIO (10-20); Calcium,Total 7.8 mg/dL (8.5-10.1); Chloride 105 mmol/L (98-107); Creatinine, Serum 0.98 mg/dL (0.70-1.30); EST Glomerular Filtration Rate 82 mL/min (>60); Est Glom Filt Rate - Afr Amer 100 mL/min (>60); Estimated Creatinine Clearance 60.94 ml/min; Globulin 2.5 g/dL (2.2-4.2); Glucose 72 mg/dL (74-106); Magnesium 1.9 mg/dL (1.6-2.6); Phosphorus 2.3 mg/dL (2.5-4.9); Potassium 3.6 mmol/L (3.5-5.1); Protein, Total 5.3 g/dL (6.4-8.2); Sodium Level 136 mmol/L (136-145)
[2022-08-25 08:11] VITALS: BP 118/65; PULSE 68; RESP 18; TEMP 36.8; O2SAT 97
[2022-08-25] MEDS: proCHLORPERazine 10 MG/2 ML Vial 5 MG IV (08:20)
[2022-08-25] MEDS: Morphine 4 MG/ML Syringe IV ×2 (08:21→14:43)
[2022-08-25] MEDS: 0.9% Saline Lock 10 ML Syringe IV ×3 (08:21→22:31)
[2022-08-25] MEDS: DULoxetine Hcl 30 MG Capsule PO (08:26)
[2022-08-25] MEDS: Enoxaparin 40 MG/0.4 ML Syringe SC (08:27)
[2022-08-25] MEDS: Aspirin 81 MG TAB.CHEW PO (08:27)
--- NOTE | 2022-08-25 09:24 | PN.HOSP_ITS ---
Subjective Subjective Continues to have abdominal pain with nausea and vomiting, no diarrhea Objective Data Objective Data Vital Signs: Vital Signs Temp Pulse Resp BP Pulse Ox O2 Del Method 98.2 F 68 18 118/65 97 Room Air 08/25/22 08:11 08/25/22 08:11 08/25/22 08:11 08/25/22 08:11 08/25/22 08:11 08/25/22 08:11 Oxygen Delivery Method Room Air Weight: 120 lb Body Mass Index (BMI) 17.2 Intake & Output: Intake and Output for Last 24 Hours 08/24/22 08/25/22 08/26/22 03:59 03:59 03:59 Intake Total 1999 1000 / 1000 Balance 1999 1000 / 1000 Lab / Micro Data Result Diagrams: 08/25/22 04:45 08/25/22 04:45 Labs: Laboratory Results - last 24 hr 08/24/22 15:15: WBC 4.7, RBC 4.97, Hgb 15.1, Hct 43.6, MCV 87.7, MCH 30.4, MCHC 34.6, RDW Std Deviation 44.2 H, RDW Coeff of Rashida 13.6, Plt Count 116 L, MPV 13.1 H, Immature Gran % (Auto) 0.200, Neut % (Auto) 59.4, Lymph % (Auto) 10.6 L, Walker % (Auto) 29.6 H, Eos % (Auto) 0.0, Baso % (Auto) 0.2, Absolute Neuts (auto) 2.8, Absolute Lymphs (auto) 0.50 L, Nucleated RBC % 0, Differential Comment SCANNED 08/24/22 15:15: Sodium 134 L, Potassium 3.6, Chloride 101, Carbon Dioxide 21.0, Anion Gap 12, BUN 18, Creatinine 1.24, Estim Creat Clear Calc 48.31, Est GFR (MDRD) Af Amer 76, Est GFR (MDRD) Non-Af 63, BUN/Creatinine Ratio 14.5, Glucose 93, Calcium 8.8, Total Bilirubin 0.40, Direct Bilirubin 0.13, AST 30, ALT 21, Alkaline Phosphatase 114, Total Protein 6.7, Albumin 3.6, Globulin 3.1, Lipase 74 08/24/22 15:15: Amylase 33 08/24/22 15:35: Lactic Acid 1.6 08/25/22 04:45: WBC 4.2 L, RBC 4.62, Hgb 14.0, Hct 41.2, MCV 89.2, MCH 30.3, MCHC 34.0, RDW Std Deviation 45.4 H, RDW Coeff of Rashida 13.8, Plt Count 101 L, MPV 13.3 H, Immature Gran % (Auto) 0.200, Neut % (Auto) 63.8, Lymph % (Auto) 21.2, Walker % (Auto) 14.6 H, Eos % (Auto) 0.0, Baso % (Auto) 0.2, Absolute Neuts (auto) 2.7, Absolute Lymphs (auto) 0.89, Nucleated RBC % 0 08/25/22 04:45: Sodium 136, Potassium 3.6, Chloride 105, Carbon Dioxide 22.0, Anion Gap 9, BUN 17, Creatinine 0.98, Estim Creat Clear Calc 60.94, Est GFR (MD RD) Af Amer 100, Est GFR (MDRD) Non-Af 82, BUN/Creatinine Ratio 17.3, Glucose 72 L, Calcium 7.8 L, Phosphorus 2.3 L, Magnesium 1.9, Total Bilirubin 0.30, AST 30, ALT 19, Alkaline Phosphatase 92, Total Protein 5.3 L, Albumin 2.8 L, Globulin 2.5, Albumin/Globulin Ratio 1.1 Physical Exam Narrative General: Alert, Oriented x3, Cooperative, in pain HEENT: Atraumatic, PERRLA, EOMI, Normocephalic Oral: Moist Mucosa Neck: Supple, No JVD Lungs: Diminished, Normal air movement, No rhonchi, No wheeze, No rales Cardiovascular: Regular rate, Regular Rhythm, Normal S1, Normal S2, No murmurs Abdomen: Soft, tender, Non-Distended, No Hepato-splenomegaly Extremities: No edema, Capillary Refill Less than 3 Seconds Skin: No rashes, No breakdown Musculoskeletal: No Tenderness to Palpation of Joints or Extremities Neurological: Cranial nerves II-XII grossly intact, Motor Exam 5/5 strength throughout, Sensory exam intact to light touch and pain Psych/Mental Status: Flat affect, Appropriate Assessment & Plan Assessment/Plan (1) Abdominal pain: (2) Vomiting: (3) Mesenteric ischemia, chronic: (4) Thrombocytopenia: PLAN: Plan 1. Intractable abdominal pain with nausea and vomiting/present ischemia/severe malnutrition/thrombocytopenia/tobacco abuse ? He does have a history of chronic mesenteric ischemia and he has needed multiple stents into his celiac artery as well as superior mesenteric artery ? Amylase and lipase are normal ? She still having some pain, will optimize blood pressure continue with IV f luids to increase perfusion ? We will adjust pain medication as well as antinausea medication ? Denies any diarrhea ? Thrombocytopenia appears to be new could be reactive we will monitor ? Continue with aspirin and Plavix ? BMI 17.3 ? Discussed cessation, denies needing a nicotine patch 2. GERD ? Stable ? Continue with PPI 3. Anxiety/depression ? Stable ? Continue Cymbalta DVT: Lovenox Charges/Coding Visit Charges Inpatient E&M: 08255 Subs Hosp L2
[2022-08-25] MEDS: Ondansetron 4 MG/2 ML Vial 8 MG IV ×2 (14:43→22:36)
[2022-08-25 14:46] VITALS: BP 122/81; PULSE 89; RESP 18; TEMP 37.1; O2SAT 97
[2022-08-25 22:25] VITALS: BP 141/78; PULSE 64; RESP 18; TEMP 36.8; O2SAT 96
[2022-08-25] MEDS: Atorvastatin Calcium 20 MG Tablet PO (22:29)
[2022-08-25] MEDS: Pantoprazole Sodium 20 MG Tablet PO (22:29)
[2022-08-25] MEDS: Clopidogrel Bisulfate 75 MG Tablet PO (22:29)
[2022-08-26] VITALS (8 sets, daily range): BP systolic 111–132; BP diastolic 63–95; PULSE 54–67; RESP 18–20; TEMP 36.5–37.1; O2SAT 94–100
[2022-08-26] MEDS: Morphine 2 MG/ML Syringe IV (00:55)
[2022-08-26 05:27] LABS: Absolute Lymphocyte Count 0.84 X10^3/uL (0.83-4.51); Absolute Neutrophil Count 1.2 X10^3/uL (2.0-7.7); Basophil# 0.02 X10^3/uL; Basophil% 0.7 % (0-1); Hemoglobin 14.5 g/dL (13.0-16.5); Lymphocyte # 0.84 X10^3/ul (0.83-4.51); Lymphocyte % 31.5 % (19-41); Mean Corp Hgb Conc 34.5 g/dL (32-36); Mean Corpuscular Hgb 30.3 pg (27.0-32.0); Mean Corpuscular Volume 87.7 fL (80-94); Mean Platelet Vol. 12.6 fl (6.2-12.0); Monocyte# 0.56 X10^3/uL; NRBC Flagged by Analyzer 0 % (0-5); Neutrophil # 1.24 X10^3/uL (2.7-7.7); Neutrophil % 46.4 % (47-70); Platelet Count 106 K/mm3 (150-450); RBC Distribution Width CV 13.2 % (11.6-14.6); RBC Distribution Width SD 42.5 fl (35.1-43.9); Red Blood Count 4.79 M/mm3 (4.6-6.2); White Blood Count 2.7 K/mm3 (4.4-11.0)
[2022-08-26 05:59] LABS: Anion Gap 7 (5-15); BUN 12 mg/dL (7-18); BUN/Creat Ratio 12.7 RATIO (10-20); Calcium,Total 8.2 mg/dL (8.5-10.1); Chloride 101 mmol/L (98-107); Creatinine, Serum 0.95 mg/dL (0.70-1.30); EST Glomerular Filtration Rate 86 mL/min (>60); Est Glom Filt Rate - Afr Amer 104 mL/min (>60); Estimated Creatinine Clearance 62.87 ml/min; Glucose 83 mg/dL (74-106); Potassium 3.2 mmol/L (3.5-5.1); Sodium Level 136 mmol/L (136-145)
[2022-08-26] MEDS: Lactated Ringers 1,000 ML 100 ML IV ×2 (06:40→16:41)
[2022-08-26] MEDS: Aspirin 81 MG TAB.CHEW PO (09:10)
[2022-08-26] MEDS: Potassium Chloride Oral Tablet 20 MEQ 40 MEQ PO (09:10)
[2022-08-26] MEDS: Morphine 4 MG/ML Syringe IV ×2 (09:11→12:36)
[2022-08-26] MEDS: DULoxetine Hcl 30 MG Capsule PO (09:11)
[2022-08-26] MEDS: Ondansetron 4 MG/2 ML Vial 8 MG IV ×2 (09:12→23:28)
[2022-08-26] MEDS: Enoxaparin 40 MG/0.4 ML Syringe SC (09:15)
[2022-08-26] MEDS: proCHLORPERazine 10 MG/2 ML Vial 5 MG IV (12:36)
--- NOTE | 2022-08-26 13:03 | PN_ITS ---
Subjective Subjective Patient seen and examined. He still complained of abdominal pain. Stenosis is mainly in his epigastric region. He denies any fever, chills, chest pain, palpitations, dizziness, nausea, vomiting or diarrhea. Review of systems is otherwise negative. Objective Data Objective Data Vital Signs: Vital Signs Temp Pulse Resp BP Pulse Ox O2 Del Method 98.4 F 67 18 132/95 H 100 Room Air 08/26/22 12:33 08/26/22 12:33 08/26/22 12:33 08/26/22 12:33 08/26/22 12:33 08/26/22 12:33 Oxygen Delivery Method Room Air Weight: 120 lb Body Mass Index (BMI) 17.2 Intake & Output: Intake and Output for Last 24 Hours 08/24/22 08/25/22 08/26/22 23:59 23:59 23:59 Intake Total 1999 2701.67 / 2701.67 818.33 / 818.33 Balance 1999 2701.67 / 2701.67 818.33 / 818.33 Lab / Micro Data Result Diagrams: 08/28/22 06:05 08/28/22 06:05 Labs: Laboratory Results - last 24 hr 08/26/22 04:57: WBC 2.7 L, RBC 4.79, Hgb 14.5, Hct 42.0, MCV 87.7, MCH 30.3, MCHC 34.5, RDW Std Deviation 42.5, RDW Coeff of Rashida 13.2, Plt Count 106 L, MPV 12.6 H, Immature Gran % (Auto) 0.400, Neut % (Auto) 46.4 L, Lymph % (Auto) 31.5, [place] % (Auto) 21.0 H, Eos % (Auto) 0.0, Baso % (Auto) 0.7, Absolute Neuts (auto) 1.2 L, Absolute Lymphs (auto) 0.84, Nucleated RBC % 0 08/26/22 04:57: Sodium 136, Potassium 3.2 L, Chloride 101, Carbon Dioxide 28.0, Anion Gap 7, BUN 12, Creatinine 0.95, Estim Creat Clear Calc 62.87, Est GFR (MDRD) Af Amer 104, Est GFR (MDRD) Non-Af 86, BUN/Creatinine Ratio 12.7, Glucose 83, Calcium 8.2 L Physical Exam Const alert, oriented x3 and no apparent distress General Appearance: cooperative HEENT normocephalic, head/scalp atraumatic and moist oral mucous membranes Eyes PERRL and EOMs intact bilaterally Neck no lymphadenopathy and supple Resp normal respiratory effort, normal air movement and clear to auscultation bilater ally Cardio regular rate, regular rhythm, S1 normal heart sound, S2 normal heart sound and no murmurs GI normal to inspection, nondistended, normoactive bowel sounds, soft to palpation, non-tender and non-distended Extremity normal capillary refill, no clubbing, cyanosis or edema and no calf tenderness Skin General Skin Exam: no breakdown Neuro CN's II-XII intact bilaterally, no focal motor deficits and no sensory deficits noted Motor Exam: strength 5/5 throughout Assessment & Plan Assessment/Plan (1) Mesenteric ischemia, chronic: (2) Abdominal pain: PLAN: Plan #Intractable abdominal pain in the setting of chronic mesenteric ischemia * still says he is having abdominal pain, mainly in the epigastric region * says he was told in the past he had a peptic ulcer, and is wondering if that could be the cause of his abdominal pain * has multiple stents in his celiac artery and superior mesenteric artery * on IV zofran * amylase and lipase were WNL * I do think it is reasonable to get a gastroenterology consult * keep on clear liquids for now * IV PPI * #GERd: on PPI #ANxiety and depression; on cymbalta DVT prophylaxis: lovenox Charges/Coding Visit Charges Inpatient E&M: 12924 Subs Hosp L2
--- NOTE | 2022-08-26 18:20 | EX.PCM.CON.G ---
HPI Consult Data Date of Consult: 08/26/22 HPI Narrative Reason for Consultation: Abdominal pain HPI Narrative: RAJENDRA HOFFMAN, is a 62 M who presented to the emergency department at [facility] on 08/24/2022 with a chief complaint of abdominal pain and intractable nausea vomiting.? He was in the emergency department at outside hospital in [place] yesterday per his report the lab work was unremarkable and the initial CT scan with contrast was read as normal but per documentation the radiologist called back later stating that he did have evidence of colitis and they attempted to contact the patient but were unable to get a hold of him. ?Rajendra established with [facility] GI clinic 08.15.21 to establish care for GERD, abdominal pain, diverticulosis. He has been seen by several gastroenterologists, most recently with [facility]. His severe abdominal pain began 2006, US of abdomen found material in gallbladder and he underwent cholecystectomy. Following this he began having diarrhea with urgency. Abdominal pain, diarrhea, dark urine and white stools in prompted ED visit. ERCP performed removing choledocholithiasis. Lack of symptom improvement prompted CTA finding celiac and mesenteric occlusion; coupled with diarrhea, abdominal pain, nausea, vomiting he was transferred to specialty care where stents were placed. Had a similar episode four months later and another vascular stent was placed. Two additional episodes with stents placed, most recently ; currently two stents placed in celiac and two stents placed in mesenteric artery. EGD colonoscopy with F for coffee ground emesis. EGD found patchy and streaky erythema; hiatal hernia with patchy erythema; bilious staining with streaky erythema and shallow erosions in GE junction and possibly in esophagus. Biopsy indicative of possible early celiac disease. Colonoscopy found two tubular adenoma polyps and elevated CEA level and is established with [facility] oncology. There is a strong family history of cancer. His father passed from colon cancer and he has been having routine colonoscopies for several years. CTA 04.20.19 finding nonspecific colitis; thickening of urinary bladder; possible gastritis; possible urinary cystitis; common bile duct and mild intrahepatic ductal dilation. Colonoscopy last performed 01.29.21 with tubular adenoma polyps removed. CTA 06.22.21 as part of [facility] ED workup found patent celiac and mesenteric artery stents without occlusion or significant stenosis. Remaining study unremarkable for stenosis, dilation, mass or nodules. Following workup he was noted to be stable and discharged home. Presented to [facility] ED 09.12.21 with abdominal pain, coffee ground emesis and soft stools. Hemoglobin noted to be elevated likely secondary to mild dehydration and heavy smoking. Gastroenterology consulted same day and he was admitted for management of GIB. He was discharged 09.19.21. 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 CT abd/pel 09.12.21 found mild intrahepatic and CBD prominence, possibly r/t cholecystectomy; no CBD stone identified; stents noted in vasculature. CTA 09.13.21 found liver steatosis; evidence of colitis in transverse colon and left hemicolon; vascular stents noted and are patent; right common iliac artery calcified plaques causing moderate degree of obstruction. MRCP 09.18.21 with cholecystectomy changes noted. No acute or chronic findings. Last seen in clinic 08.15.21 with recommendation for EGD and colonoscopy, CT abd/pel, possible ursodiol in future. Weight loss likely r/t cigarettes. [facility] ED presentation 09.12.21 for worsening abdominal pain with emesis of black material with soft stools mixed with black. Gastroenterology consulted 09.12.21 for management of vomiting, weight loss and abdominal pain. EGD performed 09.12.21. He was discharged 09.12.21. 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 [facility] ED presentation 09.13.21 with continued abd pain and coffee ground emesis. Gastroenterology consulted 09.18.21. He was discharged 09.19.21. CTA abd/pel 09.13.21 finding known stents. Additional finding suggestive of colitis involving transverse and descending colons. Colonoscopy 10.11.21 finding hemorrhoids; diverticulosis RS colon, sigmoid colon, descending colon; four 1-2mm tubular adenoma polyps, tattooed; congested mucosa of terminal ileum. [facility] Medical History Arthritis Back pain Celiac artery stenosis Coagulopathy Difficulty chewing Difficulty swallowing Excessive bleeding Gastric reflux GI bleed High cholesterol History of diverticulitis History of GI bleed History of IBS History of steroid therapy History of stress test History of ulceration Injury of head and neck Kidney stones Mesenteric artery stenosis Migraine headache Migraines Smoker Smoker Ulcer Wears glasses Home Medications clopidogrel 75 mg tablet 75 mg PO QHS anti platelet 09/23/16 [History Last Taken 08/22/22] rosuvastatin 10 mg tablet 10 mg PO QHS cholesterol 06/08/18 [History Last Taken 08/22/22] aspirin 81 mg tablet 81 mg PO DAILY heart health 07/20/22 [History Last Taken 08/23/22] pantoprazole 40 mg tablet,delayed release (Protonix) 20 mg PO QHS acid reflux 07/20/22 [History Last Taken 08/22/22] ondansetron 4 mg disintegrating tablet 4 mg PO Q8H PRN PRN Nausea #10 tabs 08/24/22 [Rx Last Taken Unknown] oxycodone-acetaminophen 5 mg-325 mg tablet (Percocet) 1 tab PO Q8H PRN pain 3 days #10 tabs 08/24/22 [Rx Last Taken Unknown] Allergy/AdvReac Type Severity Reaction Status Date / Time omeprazole AdvReac Other Verified 08/24/22 14:47 Family History Father Colon cancer Mother No cardiac disease Surgical History History of cholecystectomy History of esophagogastroduodenoscopy (EGD) Hx of cervical spine surgery Hx of colonoscopy Hx of surgical procedure Social History Smoking Status: Current every day smoker tobacco type: cigarettes alcohol intake: current details: occasional use substance use type: does not use ROS Constitutional Constitutional: Reports anorexia; Denies change in weight, chills, fatigue, fever(s), malaise, night sweats, weakness or other Eyes Eyes: Denies blurry vision, change in eye color, change in vision, discharge from eye(s), double vision, erythema, eye pain, loss of vision or other ENT HEENT: Denies abnormal hearing, dysphagia, ear pain, epistaxis, headache(s), hearing loss, nasal congestion, nasal discharge, post nasal drip, sinus pressure, sore throat or other Cardiovascular Cardiovascular: Denies chest pain, claudication, dyspnea on exertion, edema, lightheadedness, orthopnea, palpitations, paroxysmal nocturnal dyspnea, rapid heart rate, syncope or other Respiratory/Chest Respiratory/Chest: Denies cough, dyspnea, excessive phlegm production, hemoptysis, productive cough, shortness of breath at rest, shortness of breath with exertion, wheezing or other Gastrointestinal Gastrointestinal: Reports abdominal pain, nausea and vomiting; Denies coffee ground emesis, constipation, diarrhea, dyspepsia, hematemesis, hematochezia, loose stools, melena or other Genitourinary Genitourinary: Denies burning urination, difficulty urinating, dysuria, hematuria, nocturia, urinary frequency, urinary hesitancy, urinary incontinence, urinary urgency or other Musculoskeletal Musculoskeletal: Denies arthralgias, back pain, joint pain, joint stiffness, joint swelling, myalgias, neck pain or other Neurologic Neurologic: Denies abnormal gait, abnormal speech, confusion, disequilibrium, dizziness, focal weakness, headache(s), numbness, paresthesias, seizure-like activity, seizures, syncope, tingling, tremor(s) or other Psychiatric Psychiatric: Reports anxiety; Denies depression, homicidal ideation, suicidal ideation or other Endocrine Endocrinology: Denies change in body appearance, cold intolerance, excessive sweating, heat intolerance, polydipsia, polyuria or other Hematologic/Lymphatic Hematologic/Lymphatic: Denies anemia, easy bleeding, easy bruising, lymphadenopathy or other Allergic/Immunologic Allergic/Immunologic: Denies rhinitis, hives, eczemia, asthma or other Physical Exam Const alert, oriented x3 and no apparent distress General Appearance: cooperative HEENT normocephalic, head/scalp atraumatic and moist oral mucous membranes Eyes PERRL and EOMs intact bilaterally Neck no lymphadenopathy and supple Resp normal respiratory effort, normal air movement and clear to auscultation bilaterally Cardio regular rate, regular rhythm, S1 normal heart sound, S2 normal heart sound and no murmurs GI normal to inspection, nondistended, normoactive bowel sounds, soft to palpation, non-tender and non-distended Extremity normal capillary refill, no clubbing, cyanosis or edema and no calf tenderness Skin General Skin Exam: no breakdown Neuro CN's II-XII intact bilaterally, no focal motor deficits and no sensory deficits noted Motor Exam: strength 5/5 throughout Lab / Micro Data Result Diagrams: 08/26/22 04:57 08/26/22 04:57 Labs: Laboratory Results - last 24 hr 08/26/22 04:57: WBC 2.7 L, RBC 4.79, Hgb 14.5, Hct 42.0, MCV 87.7, MCH 30.3, MCHC 34.5, RDW Std Deviation 42.5, RDW Coeff of Rashida 13.2, Plt Count 106 L, MPV 12.6 H, Immature Gran % (Auto) 0.400, Neut % (Auto) 46.4 L, Lymph % (Auto) 31.5, [place] % (Auto) 21.0 H, Eos % (Auto) 0.0, Baso % (Auto) 0.7, Absolute Neuts (auto) 1.2 L, Absolute Lymphs (auto) 0.84, Nucleated RBC % 0 08/26/22 04:57: Sodium 136, Potassium 3.2 L, Chloride 101, Carbon Dioxide 28.0, Anion Gap 7, BUN 12, Creatinine 0.95, Estim Creat Clear Calc 62.87, Est GFR (MDRD) Af Amer 104, Est GFR (MDRD) Non-Af 86, BUN/Creatinine Ratio 12.7, Glucose 83, Calcium 8.2 L Assessment & Plan Assessment/Plan (1) Abdominal pain: PLAN: He is actually gained 5 pounds from being in the hospital. Even though he has not eaten anything. He can have clear liquids. I will perform an upper endoscopy on him tomorrow as a says his abdominal pain is consistent with when he previous had peptic ulcer disease. I told him that I will give him xanax for his anxiety, Questran for his bile gastritis, Levsin for his pain if he will stop smoking. Charges/Coding Visit Charges Inpatient E&M: 35608 Init Hosp L3
[2022-08-26] MEDS: Atorvastatin Calcium 20 MG Tablet PO (20:19)
[2022-08-26] MEDS: Clopidogrel Bisulfate 75 MG Tablet PO (20:19)
[2022-08-26] MEDS: Pantoprazole Sodium 20 MG Tablet PO (20:19)
[2022-08-27] VITALS (11 sets, daily range): BP systolic 101–138; BP diastolic 62–84; PULSE 55–77; RESP 16–20; TEMP 36.6–37.4; O2SAT 94–99; BMI 16.2
[2022-08-27] MEDS: Lactated Ringers 1,000 ML 100 ML IV ×3 (02:22→15:42)
--- NOTE | 2022-08-27 06:00 | EKG12_ITS ---
Test Reason : PRE OP Blood Pressure : / mmHG Vent. Rate : 052 BPM Atrial Rate : 052 BPM P-R Int : 154 ms QRS Dur : 084 ms QT Int : 412 ms P-R-T Axes : 082 081 073 degrees QTc Int : 383 ms Sinus bradycardia Low voltage QRS (Limb Leads) Confirmed by YOCASTA RODAS, SAUL ([id number]), publications editor DELMER RUFF ([id number]) on 08/28/2022 10:29:30 AM Referred By: ASHWIN Confirmed By:SAUL RUST MD
[2022-08-27 06:55] LABS: Absolute Lymphocyte Count 0.84 X10^3/uL (0.83-4.51); Basophil# 0.02 X10^3/uL; Basophil% 0.8 % (0-1); Eosinophil# 0.02 X10^3/uL; Eosinophils% 0.8 % (0-5); Hematocrit 44.6 % (40-54); Hemoglobin 15.5 g/dL (13.0-16.5); Lymphocyte # 0.84 X10^3/ul (0.83-4.51); Lymphocyte % 34.6 % (19-41); Mean Corp Hgb Conc 34.8 g/dL (32-36); Mean Corpuscular Hgb 30.5 pg (27.0-32.0); Mean Corpuscular Volume 87.8 fL (80-94); Mean Platelet Vol. 11.8 fl (6.2-12.0); Monocyte# 0.48 X10^3/uL; Monocyte% 19.8 % (0-10); NRBC Flagged by Analyzer 0 % (0-5); Neutrophil # 1.04 X10^3/uL (2.7-7.7); Neutrophil % 42.8 % (47-70); Platelet Count 112 K/mm3 (150-450); RBC Distribution Width CV 13.2 % (11.6-14.6); RBC Distribution Width SD 42.8 fl (35.1-43.9); Red Blood Count 5.08 M/mm3 (4.6-6.2); White Blood Count 2.4 K/mm3 (4.4-11.0)
[2022-08-27 07:28] LABS: Anion Gap 8 (5-15); BUN 9 mg/dL (7-18); Calcium,Total 8.5 mg/dL (8.5-10.1); Chloride 103 mmol/L (98-107); EST Glomerular Filtration Rate 91 mL/min (>60); Est Glom Filt Rate - Afr Amer 110 mL/min (>60); Estimated Creatinine Clearance 66.36 ml/min; Glucose 89 mg/dL (74-106); Potassium 3.6 mmol/L (3.5-5.1); Sodium Level 137 mmol/L (136-145)
[2022-08-27] MEDS: Ondansetron 4 MG/2 ML Vial 8 MG IV ×2 (08:42→22:21)
[2022-08-27] MEDS: Morphine 4 MG/ML Syringe IV ×3 (08:51→22:58)
--- NOTE | 2022-08-27 10:33 | PN_ITS ---
Subjective Subjective Patient seen and examined. H still complains of abdominal pain. He denies any nausea, vomiting, fever, chills, chest pain, nausea or vomiting. Review of systems is otherwise negative. He has remained hemodynamically stable. Objective Data Objective Data Vital Signs: Vital Signs Temp Pulse Resp BP Pulse Ox O2 Del Method 99.1 F 56 L 16 115/72 99 Room Air 08/27/22 07:30 08/27/22 07:30 08/27/22 07:30 08/27/22 07:30 08/27/22 07:30 08/27/22 08:45 Oxygen Delivery Method Room Air Weight: 120 lb Body Mass Index (BMI) 17.2 Intake & Output: Intake and Output for Last 24 Hours 08/25/22 08/26/22 08/27/22 23:59 23:59 23:59 Intake Total 2701.67 / 2701.67 2068.33 / 2068.33 968.33 / 968.33 Balance 2701.67 / 2701.67 2068.33 / 2068.33 968.33 / 968.33 Lab / Micro Data Result Diagrams: 08/27/22 06:10 08/27/22 06:10 Labs: Laboratory Results - last 24 hr 08/27/22 06:10: WBC 2.4 L, RBC 5.08, Hgb 15.5, Hct 44.6, MCV 87.8, MCH 30.5, MCHC 34.8, RDW Std Deviation 42.8, RDW Coeff of Rashida 13.2, Plt Count 112 L, MPV 11.8, Immature Gran % (Auto) 1.200 H, Neut % (Auto) 42.8 L, Lymph % (Auto) 34.6, [place]oca % (Auto) 19.8 H, Eos % (Auto) 0.8, Baso % (Auto) 0.8, Absolute Neuts (auto) 1.0 L, Absolute Lymphs (auto) 0.84, Nucleated RBC % 0 08/27/22 06:10: Sodium 137, Potassium 3.6, Chloride 103, Carbon Dioxide 26.0, Anion Gap 8, BUN 9, Creatinine 0.90, Estim Creat Clear Calc 66.36, Est GFR (MDRD) Af Amer 110, Est GFR (MDRD) Non-Af 91, BUN/Creatinine Ratio 10.0, Glucose 89, Calcium 8.5 Physical Exam Const alert, oriented x3 and no apparent distress General Appearance: cooperative HEENT normocephalic, head/scalp atraumatic and moist oral mucous membranes; Negative for hearing grossly normal bilaterally Eyes PERRL, EOMs intact bilaterally and conjunctivae normal Eyes Narrative: No scleral icterus Neck no lymphadenopathy, supple, no JVD and no carotid bruits Lymph Lymphatic: no lymphadenopathy noted and no lymphedema noted Resp normal respiratory effort, normal air movement, no retractions, no use of accessory muscles and clear to auscultation bilaterally Auscultation: Negative for rales, rhonchi or wheezes Cardio regular rate, regular rhythm, S1 normal heart sound, S2 normal heart sound, no murmurs, no rub, no gallops and no clicks GI normal to inspection, nondistended, normoactive bowel sounds, soft to palpation and non-distended GI Narrative: moderate epigastric tenderness, no guarding or rebound tenderness Extremity normal capillary refill, no clubbing, cyanosis or edema and no calf tenderness Extremity Narrative: 1+ pedal pulses bilateral lower extremities, 2+ radial pulses Neuro oriented x3, CN's II-XII intact bilaterally, moves all extremities, no focal motor deficits and no sensory deficits noted Speech: speech normal Motor Exam: strength 5/5 throughout Psych Mood & Affect: anxious Assessment & Plan Assessment/Plan (1) Mesenteric ischemia, chronic: (2) Abdominal pain: PLAN: Plan #Intractable abdominal pain in the setting of chronic mesenteric ischemia * still says he is having abdominal pain, mainly in the epigastric region * GI on board. For EGD today * currently NPO * has multiple stents in his celiac artery and superior mesenteric artery * on IV zofran * amylase and lipase were WNL * IV PPI * #GERd: on PPI #ANxiety and depression; on cymbalta DVT prophylaxis: lovenox Charges/Coding Visit Charges Inpatient E&M: 42366 Subs Hosp L2
--- NOTE | 2022-08-27 11:50 | CASEMGMT ---
JERILYN GOEL Assessment: Face to Face with pt for initial transition planning/care coordination assessment. RN MANASA introduced self and role at [facility], pt voices understanding and consents to assessment. Pt is A/O x4 and answers all questions appropriately at this time. Pt lying in bed with eyes closed in no distress. Care providers, pharmacy, and demographics verified/updated. Admitting Dx: intractable nausea/vomiting, abd pain PCP:[facility] Specialists: Friend, GI Preferred [facility]acy: [facility] Insurance: MMO Prescription Benefit: yes LNOK: Estrella Leal, Living Arrangements: Pt lives with in a single story home with 3 steps to enter. Pt reports he is I in ADL's and denies concerns at home. Transportation: Pt drives self and denies concerns with transportation. DME/HHC/SNF: Pt denies having any DME in the home, previous HHC or SNF stays. Pt states no concerns with going home at time of dc. Pt states no further concerns/needs. CM to follow. Advised pt to ask CM if any further question/concerns/needs arise, voices understanding. Pt Goal: Home Plan: Home
[2022-08-27] MEDS: proCHLORPERazine 10 MG/2 ML Vial 5 MG IV ×2 (12:52→23:02)
--- NOTE | 2022-08-27 15:45 | IMM_PTH ---
PATIENT: RAJENDRA HOFFMAN LOC: MS3 U#:[id number] AGE/SX: 62/M ROOM: [facility] RE08/26/[address]: Dr. Joan Elliott MD : 1960 BED: 1 DIS: 08/28/2022 SPEC #: [id number] RECD: 08/28/22 09:36 STATUS: MAKAYLA REQ #: [id number] HERNANDEZ: 08/27/22 15:[address]: Kory Medina DEPT: IMMUNOHISTOCHEMISTRY RECD BY: Hortecnia Rodriguez ENTERED: 08/28/22 09:37 SP TYPE: IMMUNO OTHR DR: DO Dr. Joan Marte MD Dr. Nicholas F Kotsonis, MD Dr. Scott Brown, MD Tissues: A - Stomach, NOS Procedures: H Pylori (initial) PHYSICIAN & INSTITUTION [place] [id number] SPECIMEN INFORMATION: Tissue Source: A ? Gastric antrum Clinical Info: Abdominal pain Specimen Number: [id number] CPT code: 32984 METHODOLOGY: Deparaffinized sections of prefer/formalin-fixed tissue or PAP/DQ stained slides are incubated with monoclonal/polyclonal antibodies/oligonucleotide probes. Localization is made via biotin free immunoperoxidase method. Appropriate controls are performed and reacted as expected. Results on target cell population are indicated in the following table: RESULTS: ANTIBODY / CLONE RESULT Block A H Pylori (polyclonal) negative These tests were developed and their performance characteristics determined by [facility]. They may not have been cleared or approved by the U.S. Food and Drug Administration. The FDA has determined that such clearance or approval is not necessary. The above immunohistochemical/dualISH markers are ordered and reviewed by the Pathologist. INTERPRETATION: A. Gastric antrum, biopsy: Negative for Helicobacter pylori organisms. CORTES:ambrose 08/29/2022
--- NOTE | 2022-08-27 15:45 | EGD_PTH ---
PATIENT: RAJENDRA HOFFMAN LOC: MS3 U#:[id number] AGE/SX: 62/M ROOM: [facility] RE08/26/[address]: Dr. Joan Elliott MD : 1960 BED: 1 DIS: 08/28/2022 SPEC #: [id number] RECD: 08/27/22 18:48 STATUS: MAKAYLA REKiara #: [id number] HERNANDEZ: 08/27/22 15:[address]: Kory Medina DEPT: SURGICAL PATHOLOGY RECD BY: Bela Gonzalez ENTERED: 08/28/22 08:08 SP TYPE: EGD BIOPSY OT DR: DO Dr. Joan Marte MD Dr. Nicholas F Kotsonis, MD Dr. Scott Brown, MD Tissues: A - Gastric mucous membrane B - Esophagus, NOS Procedures: Special Stain Group II Surgery Specimen Level IV Alcian Blue/PAS (control) HEADER OPERATION: EGD (MAC) PRE-OP DIAGNOSIS: Abdominal pain TISSUE SUBMITTED: A ? Gastric antrum, B ? Distal esophagus MICROSCOPIC DIAGNOSIS A. Gastric antrum, biopsy: Mild gastritis. See microscopic description and comment. B. Distal esophagus, biopsy: Fragments of gastric mucosa with chronic inflammation. Intestinal metaplasia (goblet cell metaplasia) not identified. See comment. SJ:rg 08/29/2022 COMMENT A. The results of immunohistochemistry for Helicobacter pylori will be reported separately ([id number]). B. Alcian blue/PAS stain with matched control is used in the evaluation of the specimen. MICROSCOPIC DESCRIPTION Slides are reviewed. A. The specimen shows fragments of gastric mucosa with chronic inflammatory cell infiltrates in the lamina propria consisting of lymphocytes and plasma cells, consistent with mild chronic gastritis. GROSS DESCRIPTION A - Received in fixative is one container labeled with the patient's name and designated gastric antrum. The specimen consists of two irregular fragments of light romero soft tissue that in aggregate measure 0.6 x 0.5 x 0.1 cm. The specimen is totally submitted in one cassette. B - Received in fixative is one container labeled with the patient's name and designated distal esophagus. The specimen consists of two irregular fragments of light romero soft tissue that in aggregate measure 0.5 x 0.3 x 0.1 cm. The specimen is totally submitted in one cassette. / AM:ambrose 08/28/2022 TC:3 CPT: 97276 x2, 09342
--- NOTE | 2022-08-27 17:49 | OP.EGD_ITS ---
Patient Name: Ministerio Leal Procedure Date: 08/27/2022 5:32 PM Date of : 1960 Age: 62 Procedure: Upper GI endoscopy Indications: Epigastric abdominal pain, Hematemesis Providers: Kory Medina DO Medicines: Monitored Anesthesia Care Patient Profile: This is a 62 year old male. Refer to note in patient chart for documentation of history and physical. Patient has symptoms of chronic abdominal cramping and acute epigastric abdominal pain. Complications: No immediate complications. Procedure: Pre-Anesthesia Assessment: - Prior to the procedure, a History and Physical was performed, and patient medications and allergies were reviewed. The risks and benefits of the procedure and the sedation options and risks were discussed with the patient. All questions were answered and informed consent was obtained. Patient identification and proposed procedure were verified by the physician in the pre-procedure area. Mental Status Examination: alert and oriented. Airway Examination: normal oropharyngeal airway and neck mobility. Respiratory Examination: clear to auscultation. CV Examination: normal. Prophylactic Antibiotics: The patient does not require prophylactic antibiotics. Prior Anticoagulants: The patient has taken no previous anticoagulant or antiplatelet agents. ASA Grade Assessment: II - A patient with mild systemic disease. After reviewing the risks and benefits, the patient was deemed in satisfactory condition to undergo the procedure. The anesthesia plan was to use monitored anesthesia care (MAC). Immediately prior to administration of medications, the patient was re-assessed for adequacy to receive sedatives. The heart rate, respiratory rate, oxygen saturations, blood pressure, adequacy of pulmonary ventilation, and response to care were monitored throughout the procedure. The physical status of the patient was re-assessed after the procedure. After obtaining informed consent, the endoscope was passed under direct vision. Throughout the procedure, the patient's blood pressure, pulse, and oxygen saturations were monitored continuously. The gastroscope was introduced through the mouth, and advanced to the second part of duodenum. The upper GI endoscopy was accomplished without difficulty. The patient tolerated the procedure well. Scope In: 5:39:11 PM Scope Out: 5:42:45 PM Total Procedure Duration Time 0 hours 3 minutes 34 seconds Findings: A 5 mm bleeding Marylu-Najera tear with stigmata of recent bleeding was found. To repair the defect, the tissue edges were approximated and one hemostatic clip was successfully placed. Closure of the defect was successful. There was no bleeding at the end of the procedure. Coagulation for hemostasis using heater probe was successful. Estimated blood loss was minimal. Patchy moderately erythematous mucosa without bleeding was found in the gastric body. Biopsies were taken with a cold forceps for histology. Verification of patient identification for the specimen was done. Estimated blood loss was minimal. Localized mild inflammation characterized by congestion (edema), erosions and erythema was found in the duodenal bulb and in the first portion of the duodenum. 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 Impression: - Marylu-Najera tear. Clip was placed. - Erythematous mucosa in the gastric body. Biopsied. - Bile duodenitis. 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 - Resume previous diet. - Continue present medications. - Await pathology results. Procedure Code(s): --- Professional --- 99094, 59, Esophagogastroduodenoscopy, flexible, transoral; with control of bleeding, any method 91854, 51, Esophagogastroduodenoscopy, flexible, transoral; with biopsy, single or multiple CPT copyright 2017 [employer]. All rights reserved. The codes documented in this report are preliminary and upon telephone sales agent review may be revised to meet current compliance requirements. Kory Medina DO 08/27/2022 5:48:49 PM This report has been signed electronically. Number of Addenda: 0 Note Initiated On: 08/27/2022 5:32 PM
--- NOTE | 2022-08-27 17:49 | OP.CCLET_ITS ---
08/27/2022 Richard Dai Re : Upper GI endoscopy procedure for Ministerio Dai This procedure was performed on Saturday, August 27, 2022. My impressions and recommendations are as follows: Impressions : - Marylu-Najera tear. Clip was placed. - Erythematous mucosa in the gastric body. Biopsied. - Bile duodenitis. 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 - Resume previous diet. - Continue present medications. - Await pathology results. My findings are described in the full procedure note, which is enclosed. If I can be of further assistance, please feel free to contact me at . Sincerely, Kory Medina, 08/27/2022 5:48:49 PM This report has been signed electronically.
[2022-08-27] MEDS: Atorvastatin Calcium 20 MG Tablet PO (19:43)
[2022-08-27] MEDS: Pantoprazole Sodium 20 MG Tablet PO (19:43)
[2022-08-27] MEDS: Clopidogrel Bisulfate 75 MG Tablet PO (19:43)
[2022-08-27] MEDS: 0.9% Saline Lock 10 ML Syringe IV ×3 (22:21→23:02)
[2022-08-28 02:17] VITALS: BP 115/52; PULSE 77; RESP 18; TEMP 37.7; O2SAT 97
[2022-08-28 05:34] VITALS: TEMP 36.8
[2022-08-28 06:34] LABS: Absolute Lymphocyte Count 0.72 X10^3/uL (0.83-4.51); Absolute Neutrophil Count 9.9 X10^3/uL (2.0-7.7); Basophil# 0.02 X10^3/uL; Basophil% 0.2 % (0-1); Hematocrit 44.5 % (40-54); Hemoglobin 15.7 g/dL (13.0-16.5); Lymphocyte # 0.72 X10^3/ul (0.83-4.51); Mean Corp Hgb Conc 35.3 g/dL (32-36); Mean Corpuscular Hgb 30.4 pg (27.0-32.0); Mean Corpuscular Volume 86.2 fL (80-94); Mean Platelet Vol. 12.9 fl (6.2-12.0); Monocyte% 10.9 % (0-10); NRBC Flagged by Analyzer 0 % (0-5); Neutrophil # 9.86 X10^3/uL (2.7-7.7); Neutrophil % 82.5 % (47-70); Platelet Count 130 K/mm3 (150-450); Red Blood Count 5.16 M/mm3 (4.6-6.2)
[2022-08-28 07:13] LABS: Anion Gap 7 (5-15); BUN 10 mg/dL (7-18); BUN/Creat Ratio 11.5 RATIO (10-20); Calcium,Total 8.8 mg/dL (8.5-10.1); Chloride 101 mmol/L (98-107); Creatinine, Serum 0.87 mg/dL (0.70-1.30); EST Glomerular Filtration Rate 95 mL/min (>60); Est Glom Filt Rate - Afr Amer 115 mL/min (>60); Estimated Creatinine Clearance 64.95 ml/min; Glucose 100 mg/dL (74-106); Potassium 3.9 mmol/L (3.5-5.1); Sodium Level 134 mmol/L (136-145)
[2022-08-28 07:43] VITALS: O2SAT 95
--- NOTE | 2022-08-28 08:00 | PN_ITS ---
Subjective Subjective Patient underwent upper endoscopy yesterday for worsening abdominal pain. He was discovered to have gastritis in the gastric antrum and gastric thought to be secondary to bile gastritis. He also had a narrowing at the third portion of the duodenum that was seen with questionable vascularity that is possibly secon aguilar to superior mesenteric artery syndrome. Biopsies for H. pylori are pending Objective Data Objective Data Vital Signs: Vital Signs Temp Pulse Resp BP Pulse Ox O2 Del Method 98.1 F 68 18 122/77 H 97 Room Air 08/28/22 08:30 08/28/22 08:30 08/28/22 08:30 08/28/22 08:30 08/28/22 08:30 08/28/22 08:30 Oxygen Delivery Method Room Air Weight: 113 lb 8.609 oz Body Mass Index (BMI) 16.2 Intake & Output: Intake and Output for Last 24 Hours 08/26/22 08/27/22 08/28/22 23:59 23:59 23:59 Intake Total 2068.33 / 2068.33 3471.66 / 3471.66 Balance 2068.33 / 2067.33 3471.66 / 3471.66 Lab / Micro Data Result Diagrams: 08/28/22 06:05 08/28/22 06:05 Labs: Laboratory Results - last 24 hr 08/28/22 06:05: WBC 12.0 H, RBC 5.16, Hgb 15.7, Hct 44.5, MCV 86.2, MCH 30.4, MCHC 35.3, RDW Std Deviation 41.0, RDW Coeff of Rashida 13.0, Plt Count 130 L, MPV 12.9 H, Immature Gran % (Auto) 0.400, Neut % (Auto) 82.5 H, Lymph % (Auto) 6.0 L , [place] % (Auto) 10.9 H, Eos % (Auto) 0.0, Baso % (Auto) 0.2, Absolute Neuts (auto) 9.9 H, Absolute Lymphs (auto) 0.72 L, Nucleated RBC % 0 08/28/22 06:05: Sodium 134 L, Potassium 3.9, Chloride 101, Carbon Dioxide 26.0, Anion Gap 7, BUN 10, Creatinine 0.87, Estim Creat Clear Calc 64.95, Est GFR (MDRD) Af Amer 115, Est GFR (MDRD) Non-Af 95, BUN/Creatinine Ratio 11.5, Glucose 100, Calcium 8.8 Physical Exam Const alert, oriented x3 and no apparent distress General Appearance: cooperative HEENT normocephalic, head/scalp atraumatic and moist oral mucous membranes; Negative for hearing grossly normal bilaterally Eyes PERRL, EOMs intact bilaterally and conjunctivae normal Eyes Narrative: No scleral icterus Neck no lymphadenopathy, supple, no JVD and no carotid bruits Lymph Lymphatic: no lymphadenopathy noted and no lymphedema noted Resp normal respiratory effort, normal air movement, no retractions, no use of accessory muscles and clear to auscultation bilaterally Auscultation: Negative for rales, rhonchi or wheezes Cardio regular rate, regular rhythm, S1 normal heart sound, S2 normal heart sound, no murmurs, no rub, no gallops and no clicks GI normal to inspection, nondistended, normoactive bowel sounds, soft to palpation and non-distended GI Narrative: moderate epigastric tenderness, no guarding or rebound tenderness Extremity normal capillary refill, no clubbing, cyanosis or edema and no calf tenderness Extremity Narrative: 1+ pedal pulses bilateral lower extremities, 2+ radial pulses Neuro oriented x3, CN's II-XII intact bilaterally, moves all extremities, no focal motor deficits and no sensory deficits noted Speech: speech normal Motor Exam: strength 5/5 throughout Psych Mood & Affect: anxious Assessment & Plan Assessment/Plan (1) Thrombocytopenia: PLAN: Thrombocytopenia is possibly nutritional. This needs to be followed by ambulatory care nurse. It is chronic thrombocytopenia. (2) Mesenteric ischemia, chronic: PLAN: This imaging of his mesenteric vasculature is did not show any signs of blockages in his mesenteric stents that were previously placed. He said that he is trying to stop smoking. 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 He was offered Chantix and other patches but he said he tried that and it has not helped in the past. 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 Recommend to follow-up with vascular surgery and gastroenterology in the clinic. Continue PPI and Carafate as previously ordered. Charges/Coding Visit Charges Inpatient E&M: 28630 Subs Hosp L3
[2022-08-28 08:30] VITALS: BP 122/77; PULSE 68; RESP 18; TEMP 36.7; O2SAT 97
[2022-08-28] MEDS: Aspirin 81 MG TAB.CHEW PO (09:16)
[2022-08-28] MEDS: DULoxetine Hcl 30 MG Capsule PO (09:16)
[2022-08-28] MEDS: Enoxaparin 40 MG/0.4 ML Syringe SC (09:16)
--- NOTE | 2022-08-28 11:25 | DS.PCM_ITS ---
Providers Date of Admission: 08/26/22 Date of Discharge: 08/28/22 Primary Care Physician: Dr. Richard Dai MD Consultations 08/26/22 17:53 Consult: Gastroenterology Routine Consulting Provider: Kory Medina Reason for Consult: abd pain/nausea EMERGENT Consult: No MD Notified: Yes Date Notified: 08/26/22 Time Notified: 17:53 Method of Notification: Text Reason For Visit: INTRACTABLE NAUSEA/VOMITING, ABD PAIN 2/2 Diagnosis Discharge Diagnosis (1) Mesenteric ischemia, chronic: Status: Chronic Code(s): K55.1 - Chronic vascular disorders of intestine (2) Abdominal pain: Status: Acute Code(s): R10.9 - Unspecified abdominal pain Plan #Intractable abdominal pain in the setting of chronic mesenteric ischemia * still says he is having abdominal pain, mainly in the epigastric region * GI on board. For EGD today * currently NPO * has multiple stents in his celiac artery and superior mesenteric artery * on IV zofran * amylase and lipase were WNL * IV PPI * #GERd: on PPI #ANxiety and depression; on cymbalta DVT prophylaxis: lovenox Medications at Discharge Home Medications clopidogrel 75 mg tablet 75 mg PO QHS anti platelet 09/23/16 rosuvastatin 10 mg tablet 10 mg PO QHS cholesterol 06/08/18 aspirin 81 mg tablet 81 mg PO DAILY [facility] 07/20/22 pantoprazole 40 mg tablet,delayed release (Protonix) 20 mg PO QHS acid reflux 07/20/22 ondansetron 4 mg disintegrating tablet 4 mg PO Q8H PRN PRN Nausea #10 tabs 08/24/22 oxycodone-acetaminophen 5 mg-325 mg tablet (Percocet) 1 tab PO Q8H PRN pain 3 days #10 tabs 08/24/22 Hospital Course Operations None Procedures EGD Summary of Care Provided Minutes Spent on Discharge: 50 Hospital Course: Patient is a 62-year-old male with a past medical history as outlined was admitted through the ED on 08/24/2022 with a complaint of abdominal pain and intractable nausea and vomiting which have been going on for about 3 days. He had been seen in the emergency room at outside hospital in [place] on the day before admission and in shock CAT scan done was read as normal but radiologist apparently subsequently called back saying there was evidence of colitis. They could not get in touch with the patient. His abdominal pain persisted so he came in to the [facility] ED. He had seen gastroenterology several times on outpatient basis and had had a liver elastography which showed mild to moderate liver fibrosis. He also had a history of mesenteric ischemia and had had 2 stents placed in the celiac and mesenteric arteries. Patient was still smoking but had been counseled to quit. On admission labs were significant for sodium of 134 and CTA of the abdomen and pelvis done the day before it showed mild colitis was otherwise normal. Pain was intractable so he was admitted and managed for intractable abdominal pain and nausea and vomiting. He was hydrated with fluids and given IV Zofran as well as IV pain medication. Pain still persisted so gastroenterology was consulted as patient said he had a history of peptic ulcer. He did have EGD which showed Marylu-Najera tear and a clip was placed. It also showed erythematous mucosa in the gastric body which was biopsied as well as bile duodenitis and acquired duodenal stenosis with narrowing and stenosis in the third portion of the duodenum likely due to superior mesenteric artery syndrome. Patient was started on a diet but he was able to tolerate a full liquid diet. He did eat some Landeros's mother brought in but was unable to tolerate that and was counseled to advance his diet very slowly. Patient was discharged home on 08/28/2022. He is to follow-up with his primary care doctor and follow-up with gastroenterology. He was counseled to quit smoking. Patient seen and examined prior to discharge. He had no active complaints and had an uneventful night. Review of systems otherwise negative. Labs and vitals reviewed. Home medication reviewed and reconciled. Physical Exam Const alert, oriented x3 and no apparent distress General Appearance: cooperative, comfortable and well kempt Orientation / Consciousness: awake Exam Limitations: no limitations HEENT normocephalic, head/scalp atraumatic and moist oral mucous membranes; Negative for hearing grossly normal bilaterally Mouth: oral and palatal mucosa normal Eyes PERRL, EOMs intact bilaterally and conjunctivae normal Eyes Narrative: No scleral icterus Neck no lymphadenopathy, supple, no JVD and no carotid bruits Lymph Lymphatic: no lymphadenopathy noted and no lymphedema noted Resp normal respiratory effort, normal air movement, no retractions, no use of accessory muscles and clear to auscultation bilaterally Resp Narrative: Diffusely diminished but clear Auscultation: Negative for rales, rhonchi or wheezes Cardio regular rate, regular rhythm, S1 normal heart sound, S2 normal heart sound, no m urmurs, no rub, no gallops and no clicks GI normal to inspection, nondistended, normoactive bowel sounds, soft to palpation, non-tender and non-distended GI Narrative: minimal epigastric tenderness, no guarding or rebound tenderness Extremity normal capillary refill, no clubbing, cyanosis or edema and no calf tenderness Extremity Narrative: 1+ pedal pulses bilateral lower extremities, 2+ radial pulses Skin no rashes or lesions noted General Skin Exam: no breakdown Neuro oriented x3, CN's II-XII intact bilaterally, moves all extremities, no focal motor deficits and no sensory deficits noted Speech: speech normal Motor Exam: strength 5/5 throughout Psych affect normal Weight / BMI Weight Weight: 113 lb 8.609 oz Body Mass Index (BMI) 16.2 ABG / Lab / Microbiology Data Result Diagrams: 08/28/22 06:05 08/28/22 06:05 Laboratory: Laboratory Results - last 24 hr 08/28/22 06:05: WBC 12.0 H, RBC 5.16, Hgb 15.7, Hct 44.5, MCV 86.2, MCH 30.4, MCHC 35.3, RDW Std Deviation 41.0, RDW Coeff of Rashida 13.0, Plt Count 130 L, MPV 12.9 H, Immature Gran % (Auto) 0.400, Neut % (Auto) 82.5 H, Lymph % (Auto) 6.0 L , [place] % (Auto) 10.9 H, Eos % (Auto) 0.0, Baso % (Auto) 0.2, Absolute Neuts (auto) 9.9 H, Absolute Lymphs (auto) 0.72 L, Nucleated RBC % 0 08/28/22 06:05: Sodium 134 L, Potassium 3.9, Chloride 101, Carbon Dioxide 26.0, Anion Gap 7, BUN 10, Creatinine 0.87, Estim Creat Clear Calc 64.95, Est GFR (MDRD) Af Amer 115, Est GFR (MDRD) Non-Af 95, BUN/Creatinine Ratio 11.5, Glucose 100, Calcium 8.8 D/C Instructions Discharge Diet: Low fat / Low cholesterol Discharge Activity: Return to Normal Activity Weight Bearing Status: Weight bearing as tolerated Call your doctor if you observe: Fever of 101 or Higher, Shortness of breath, Dizziness, Swelling in the ankles and Chest pain Meaningful Use Info Meaningful Use Diagnoses (Choose all that apply): None applicable Discharge Plan Admission Admit Date/Time: 08/26/22 08:49 Primary Reason for Your Visit: intractable abdominal pain Attending Provider: Joan Elliott Primary Care Provider: Richard Dai Consulting Providers: Cheryle Yarbrough ; Juan Lawrence ; Kory Medina Instructions Patient Instructions: ED Vomiting (Adult), ED Abdominal Pain Unkn Cause Male... Discharge Orders/Prescriptions Prescriptions: New oxycodone-acetaminophen [Percocet] 5-325 mg tablet 1 tab PO Q8H PRN (Reason: pain) 3 Days Qty: 10 0RF ondansetron 4 mg tablet,disintegrating 4 mg PO Q8H PRN PRN (Reason: Nausea) Qty: 10 0RF Continued clopidogrel 75 MG tablet 75 mg PO QHS Hold Instructions: hold for five days, then resume rosuvastatin 10 MG tablet 10 mg PO QHS pantoprazole [Protonix] 40 mg tablet,delayed release (DR/EC) 20 mg PO QHS No Action aspirin 81 mg Tablet 81 mg PO DAILY Referrals / Follow Up: Kory Medina DO [Med Staff - Active Staff] - 1-2 Weeks Richard Dai MD [Primary Care Provider] - Disposition Disposition (needs filled in before D/C Order can be placed): Home, Self Care Charges/Coding Visit Charges Inpatient E&M: 96545 Disch Hosp >30min
[2022-08-28] MEDS: Morphine 2 MG/ML Syringe IV (12:54)
[2022-08-28] MEDS: 0.9% Saline Lock 10 ML Syringe IV (12:54)
[2022-08-28 14:30] VITALS: BP 118/70; PULSE 68; RESP 16; TEMP 36.7; O2SAT 97
--- NOTE | 2022-08-28 15:01 | PHA.DC.MR ---
Pharmacy Service has performed discharge medication reconciliation for this patient. The patient's discharge medication list was reviewed for discrepancies and discrepancies were resolved. Home Medications clopidogrel 75 mg tablet 75 mg PO QHS anti platelet 09/23/16 rosuvastatin 10 mg tablet 10 mg PO QHS cholesterol 06/08/18 aspirin 81 mg tablet 81 mg PO DAILY [facility] 07/20/22 pantoprazole 40 mg tablet,delayed release (Protonix) 20 mg PO QHS acid reflux 07/20/22 ondansetron 4 mg disintegrating tablet 4 mg PO Q8H PRN PRN Nausea #10 tabs 08/24/22 oxycodone-acetaminophen 5 mg-325 mg tablet (Percocet) 1 tab PO Q8H PRN pain 3 days #10 tabs 08/24/22
== END 2022-08-28 16:44 | disposition home or self-care (01) | DRG 368 ==
LOC: ED 18:07 → MS3 18:21
PROVIDERS: Family Medicine; Internal Medicine Gastroenterology; Admitting Provider Internal Medicine; Emergency Provider Emergency Medicine; PCP Family Medicine; Visit Provider Student in an Organized Health Care Education/Training Program
PROC: 0DJ08ZZ Inspection of Upper Intestinal Tract, Via Natural or Artificial Opening Endoscopic (ICD-10-PCS; CPT 43235; principal; 2022-08-27 15:40)
DX: K22.6 Gastro-esophageal laceration-hemorrhage syndrome (principal); E43 Unspecified severe protein-calorie malnutrition; K55.1 Chronic vascular disorders of intestine; E87.1 Hypo-osmolality and hyponatremia; K31.5 Obstruction of duodenum; Z68.1 Body mass index [BMI] 19.9 or less, adult; D69.6 Thrombocytopenia, unspecified; K74.00 Hepatic fibrosis, unspecified; I73.9 Peripheral vascular disease, unspecified; F17.210 Nicotine dependence, cigarettes, uncomplicated; E78.00 Pure hypercholesterolemia, unspecified; K21.9 Gastro-esophageal reflux disease without esophagitis; F41.9 Anxiety disorder, unspecified; K29.70 Gastritis, unspecified, without bleeding; K29.81 Duodenitis with bleeding; F32.A Depression, unspecified; Z90.49 Acquired absence of other specified parts of digestive tract; Z79.02 Long term (current) use of antithrombotics/antiplatelets; Z79.82 Long term (current) use of aspirin; Z87.19 Personal history of other diseases of the digestive system; Z79.891 Long term (current) use of opiate analgesic; Z80.0 Family history of malignant neoplasm of digestive organs
CPT/HCPCS: 36415; 80048; 80053; 80076; 82150; 83605; 83690; 83735; 84100; 85025; 88305; 88313; 88342; 93005; 94668; 99284; 99406; J7030; J7120; A4216; J2405

== ENCOUNTER 2022-10-09 15:26 | Observation (INO) | payer OTHER, SELFPAY ==
[2022-10-09 15:26] VITALS: PULSE 99; RESP 18; TEMP 36.1; O2SAT 97; BMI 15.3
--- NOTE | 2022-10-09 15:48 | EKG12_ITS ---
Test Reason : STOMACH PAIN Blood Pressure : / mmHG Vent. Rate : 094 BPM Atrial Rate : 094 BPM P-R Int : 124 ms QRS Dur : 072 ms QT Int : 344 ms P-R-T Axes : 083 090 094 degrees QTc Int : 430 ms Normal sinus rhythm with sinus arrhythmia Biatrial enlargement Rightward axis Pulmonary disease pattern Abnormal ECG Confirmed by OSCAR RODAS, REGGIE ([id number]), editorial assistant DMITRY TURNER ([id number]) on 10/11/2022 2:23:17 PM Referred By: TIFFANY Confirmed By:REGGIE MOORE MD
--- NOTE | 2022-10-09 16:15 | EDS_ITS ---
HPI HPI - GI History of Present Illness Chief Complaint: Abd Pain Informant: patient Narrative Narrative: Patient is a 62-year-old male with history of superior mesenteric artery syndrome, colitis, IBS, prepyloric ulcer and prior choledocholithiasis status post cholecystectomy presenting with worsening abdominal pain and nausea. Patient states his pain feels like his prior episodes of abdominal pain however this time he is not vomiting. He is nauseous. He states he started feel more nauseous today. The pain is below his sternum that radiates to his left and then down to his hip. States this feels like his prior episodes of pain. Patient states he has a prescription for hydromorphone which she has been taking over the past few days. He states he has had 1 pill a day. Did not have any today. Patient denies any black or blood in his stool. States he was well constipated today. 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 He also has evidence of colitis on CTA on 09/13/2021. [facility] Medical History Arthritis Celiac artery stenosis Difficulty chewing Difficulty swallowing Gastric reflux High cholesterol History of diverticulitis History of GI bleed History of IBS History of steroid therapy History of ulceration Injury of head and neck Kidney stones Mesenteric artery stenosis Mesenteric ischemia, chronic Migraine headache Smoker Wears glasses Home Medications clopidogrel 75 mg tablet 75 mg PO QHS anti platelet 09/23/16 [History Last Taken 08/22/22] rosuvastatin 10 mg tablet 10 mg PO QHS cholesterol 06/08/18 [History Last Taken 08/22/22] aspirin 81 mg tablet 81 mg PO DAILY [facility] 07/20/22 [History Last Taken 08/23/22] pantoprazole 40 mg tablet,delayed release (Protonix) 20 mg PO QHS acid reflux 07/20/22 [History Last Taken 08/22/22] ondansetron 4 mg disintegrating tablet 4 mg PO Q8H PRN PRN Nausea #10 tabs 08/24/22 [Rx Last Taken Unknown] oxycodone-acetaminophen 5 mg-325 mg tablet (Percocet) 1 tab PO Q8H PRN pain 3 da ys #10 tabs 08/24/22 [Rx Last Taken Unknown] cholestyramine-aspartame 4 gram oral powder (Cholestyramine Light) 4 g PO DAILY #201.6 grams 09/06/22 [Rx Last Taken Unknown] Allergy/AdvReac Type Severity Reaction Status Date / Time omeprazole AdvReac Other Verified 10/09/22 15:30 Family History (Updated 10/09/22 @ 19:[address] Abigail Alonzo MD) Father Colon cancer Mother COPD (chronic obstructive pulmonary disease) Lung cancer Concurrent tobacco use history. Surgical History History of cholecystectomy History of esophagogastroduodenoscopy (EGD) Hx of cervical spine surgery Hx of colonoscopy Hx of surgical procedure Social History (Updated 10/09/22 @ 20:[address] Abigail Alonzo MD) household members: spouse Smoking Status: Current every day smoker tobacco type: cigarettes how long ago did patient quit smoking: Cut back over 2-3 weeks, down to 3 cig/day 10/09/22. alcohol intake: current alcohol intake frequency: a few times a month details: occasional use substance use type: does not use ROS ROS ED Constitutional Constitutional ED: Denies chills or fever(s) ENT ENT ED: Denies sore throat Cardiovascular Cardiovascular: Denies chest pain Respiratory/Chest Respiratory/Chest: Reports cough; Denies dyspnea Gastrointestinal Gastrointestinal: Reports abdominal pain, constipation and nausea; Denies diarrhea or vomiting Genitourinary Genitourinary ED: Denies dysuria or hematuria Musculoskeletal Musculoskeletal: Denies arthralgias or myalgias Integumentary Denies rash Neurologic Neurologic: Reports weakness; Denies headache(s) Hematologic/Lymphatic Hematologic/Lymphatic: Denies easy bleeding or easy bruising EXAM Physical Exam Const Vital Signs: 10/09/22 15:26 10/09/22 17:26 10/09/22 19:00 Temperature 97 F L Temperature Source Temporal Pulse Rate 99 Respiratory Rate 18 18 Blood Pressure 119/80 Blood Pressure Mean 93 Pulse Ox 97 Oxygen Delivery Method Room Air Positive well developed and cachectic Constitutional Narrative: Patient peers quite uncomfortable secondary to pain General Appearance ED: well developed and cachectic; Negative for pallor Nutritional Appearance: cachectic HEENT Reports dry mucous membranes normocephalic Mouth ED: Yes dry mucous membranes Mouth: dry mucous membranes Eyes PERRL and EOMs intact bilaterally Neck supple Resp normal respiratory effort and clear to auscultation bilaterally Resp Narrative: Harsh bronchial cough intermittently Cardio regular rate, regular rhythm and no murmurs GI GI Narrative: Diffuse tenderness. Voluntary guarding making it difficult to deeply palpate. Auscultation: normoactive bowel sounds Extremity full ROM General Extremety ED: Negative for edema General Extremity: Negative for edema Neuro moves all extremities Sensorium / Orientation: alert, oriented to person, oriented to place and oriented to time Motor Exam: Negative for general weakness Psych mental status grossly normal Mood & Affect: anxious Skin no wounds General Skin Exam: Negative for jaundice or pallor MDM MDM MDM Narrative Medical decision making narrative: Patient's evaluated for acute on chronic abdominal pain. Patient seems to have these episodes of pain. Has been thoroughly evaluated by GI here. He does have significant pathology. Patient has a prescription for hydromorphone at home which he has been taking intermittently and is is still having significant breakthrough pain. He does not have a leukocytosis. Patient's lipase is normal. His lactate is 1.4. Sodium mildly low at 131. Does have a bump in his creatinine of 1.31 which is above his baseline of 0.8. He is given IV fluid in the emergency room. He requires multiple aliquots of pain medication for further pain control. Case is discussed with GI, . Friend, states the patient really just has chronic pain but he does have a lot of underlying pathology. He agrees that without a leukocytosis, fever or other acute changes symptoms he does not need repeat imaging. Patient will be admitted for pain control and hydration given his ALBERT. He is agreeable with this plan of care. Case is discussed with Dr. Alonzo, hospitalist who accepts the patient History & Record Review Discussion w/independent historian: Patient and Family Lab Data Attestation: I reviewed the patient's lab results. Labs: Laboratory Results - last 24 hr 10/09/22 10/09/22 10/09/22 16:10 16:10 16:10 WBC 9.1 RBC 5.30 Hgb 16.4 Hct 46.8 MCV 88.3 MCH 30.9 MCHC 35.0 RDW Std Deviation 43.9 RDW Coeff of Rashida 13.7 Plt Count 265 MPV 12.4 H Immature Gran % (Auto) 0.600 Neut % (Auto) 72.2 H Lymph % (Auto) 15.6 L [place] % (Auto) 9.9 Eos % (Auto) 0.9 Baso % (Auto) 0.8 Absolute Neuts (auto) 6.6 Absolute Lymphs (auto) 1.42 Nucleated RBC % 0 Platelet Estimate ADEQUATE RBC Morphology N CHROM Anisocytosis RARE Sodium 131 L Potassium 4.9 Chloride 102 Carbon Dioxide 24.0 Anion Gap 5 BUN 18 Creatinine 1.31 H Estim Creat Clear Calc 40.65 Est GFR (MDRD) Af Amer 71 Est GFR (MDRD) Non-Af 59 L BUN/Creatinine Ratio 13.7 Glucose 96 Lactic Acid 1.4 Calcium 9.0 Total Bilirubin 0.50 AST 27 ALT 24 Alkaline Phosphatase 135 H Total Protein 7.6 Albumin 4.2 Globulin 3.4 Albumin/Globulin Ratio 1.2 Lipase Urine Color Urine Clarity Urine pH Ur Specific [place] Urine Protein Urine Glucose (UA) Urine Ketones Urine Occult Blood Urine Nitrite Urine Bilirubin Urine Urobilinogen Ur Leukocyte Esterase Urine RBC Urine WBC Ur Squamous Epith Cells Urine Bacteria Urine Mucus 10/09/22 10/09/22 16:10 17:41 WBC RBC Hgb Hct MCV MCH MCHC RDW Std Deviation RDW Coeff of Rashida Plt Count MPV Immature Gran % (Auto) Neut % (Auto) Lymph % (Auto) [place] % (Auto) Eos % (Auto) Baso % (Auto) Absolute Neuts (auto) Absolute Lymphs (auto) Nucleated RBC % Platelet Estimate RBC Morphology Anisocytosis Sodium Potassium Chloride Carbon Dioxide Anion Gap BUN Creatinine Estim Creat Clear Calc Est GFR (MDRD) Af Amer Est GFR (MDRD) Non-Af BUN/Creatinine Ratio Glucose Lactic Acid Calcium Total Bilirubin AST ALT Alkaline Phosphatase Total Protein Albumin Globulin Albumin/Globulin Ratio Lipase 33 Urine Color Yellow Urine Clarity Clear Urine pH 6.0 Ur Specific [place] 1.015 Urine Protein 15 H Urine Glucose (UA) Normal Urine Ketones 5 H Urine Occult Blood 10 H Urine Nitrite Negative Urine Bilirubin Negative Urine Urobilinogen Normal Ur Leukocyte Esterase 25 H Urine RBC 0 SEEN Urine WBC 0 SEEN Ur Squamous Epith Cells 0 SEEN Urine Bacteria 0 SEEN Urine Mucus RARE Rhythm Strip Rhythm Strip: Sinus Rhythm Rate: 94 Ectopy: None EKG Initial EKG: Attestation: I personally reviewed and interpreted this EKG as follows: Interpretation: Sinus Rhythm Comments: Normal sinus rhythm with sinus arrhythmia rate of 94 bpm Rightward axis Biatrial enlargement Pulmonary disease pattern Normal ST segments Compared to prior EKG on 08/27/2022 patient is no longer bradycardic and has more pronounced pulmonary disease pattern Management Discussion w/another healthcare provider: Hospitalist and Executive Vice President Additional Tests and Interventions Diagnositc testing considered but not performed: Ct abd/pelvis- see [facility] Discharge Plan Dx/Rx/DC Orders Clinical Impression: Dehydration, ALBERT (acute kidney injury), Intractable abdominal pain Disposition Disposition: Acute Care Hospital [facility] Discharge Date/Time: 10/09/22 20:28
[2022-10-09 16:21] LABS: Absolute Lymphocyte Count 1.42 X10^3/uL (0.83-4.51); Absolute Neutrophil Count 6.6 X10^3/uL (2.0-7.7); Basophil# 0.07 X10^3/uL; Basophil% 0.8 % (0-1); Eosinophil# 0.08 X10^3/uL; Eosinophils% 0.9 % (0-5); Hematocrit 46.8 % (40-54); Hemoglobin 16.4 g/dL (13.0-16.5); Lymphocyte # 1.42 X10^3/ul (0.83-4.51); Lymphocyte % 15.6 % (19-41); Mean Corpuscular Hgb 30.9 pg (27.0-32.0); Mean Corpuscular Volume 88.3 fL (80-94); Mean Platelet Vol. 12.4 fl (6.2-12.0); Monocyte% 9.9 % (0-10); NRBC Flagged by Analyzer 0 % (0-5); Neutrophil # 6.56 X10^3/uL (2.7-7.7); Neutrophil % 72.2 % (47-70); POSITIVE MORPHOLOGY YES; Platelet Count 265 K/mm3 (150-450); RBC Distribution Width CV 13.7 % (11.6-14.6); RBC Distribution Width SD 43.9 fl (35.1-43.9); White Blood Count 9.1 K/mm3 (4.4-11.0)
[2022-10-09 16:23] LABS: Differential Indicated SCAN CRITERIA MET
[2022-10-09] MEDS: HYDROmorphone 1 MG/ML Syringe 0.5 MG IV (16:26)
[2022-10-09] MEDS: Ondansetron 4 MG/2 ML Vial IV (16:26)
[2022-10-09] MEDS: 0.9% Normal Saline 1,000 ML 1000 ML IV (16:27)
[2022-10-09 16:45] LABS: Lactic Acid 1.4 mmol/L (0.4-1.9)
[2022-10-09 16:50] LABS: ALB/GLOB Ratio 1.2 RATIO (0.9-2.4); AST(SGOT) 27 U/L (15-37); Alanine Aminotransfer ALT/SGPT 24 U/L (16-61); Albumin, Serum 4.2 g/dL (3.2-5.0); Alkaline Phosphatase 135 U/L (45-117); Anion Gap 5 (5-15); BUN 18 mg/dL (7-18); BUN/Creat Ratio 13.7 RATIO (10-20); Chloride 102 mmol/L (98-107); Creatinine, Serum 1.31 mg/dL (0.70-1.30); EST Glomerular Filtration Rate 59 mL/min (>60); Est Glom Filt Rate - Afr Amer 71 mL/min (>60); Estimated Creatinine Clearance 40.65 ml/min; Globulin 3.4 g/dL (2.2-4.2); Glucose 96 mg/dL (74-106); Potassium 4.9 mmol/L (3.5-5.1); Protein, Total 7.6 g/dL (6.4-8.2); Sodium Level 131 mmol/L (136-145)
[2022-10-09 17:07] LABS: Anisocytosis RARE; Platelet Estimate ADEQUATE (ADEQ); Red Cell Morphology N CHROM NORMAL (NORM C&C)
[2022-10-09 17:26] VITALS: RESP 18
[2022-10-09 17:48] LABS: Bacteria 0 SEEN /hpf (None Seen); Red Blood Cells-Urine 0 SEEN /hpf (0-5); Squamous Epithelial Cells - UA 0 SEEN /hpf (0-5); White Blood Cells 0 SEEN /hpf (0-5)
[2022-10-09 17:58] LABS: Lipase 33 U/L (13-75)
[2022-10-09 18:01] LABS: Color, Urine Yellow (Yellow); Glucose, Dipstick Normal (Normal); Ketone-Dipstick 5 mg/dl (Negative); Leukocyte Esterase-Dipstick 25 /ul (Negative); Nitrite-Dipstick Negative (Negative); Occult Blood-Urine 10 /ul (Negative); Protein-Dipstick 15 mg/dl (Negative); Specific Gravity, Urine 1.015 (1.002-1.030); Urine Bilirubin Dipstick Negative (Negative); Urine Clarity Clear (Clear); Urine Urobilinogen Normal (Normal)
[2022-10-09 18:08] LABS: Mucous, Urine RARE /hpf (<or=2+)
[2022-10-09] MEDS: HYDROmorphone 0.5 MG/0.5 ML SYRINGE IV ×2 (18:10→21:02)
[2022-10-09] MEDS: Dextrose 10%-Water 250 ML IV (18:10)
[2022-10-09 19:00] VITALS: BP 119/80
[2022-10-09] MEDS: 0.9% Normal Saline 1,000 ML 250 ML IV (19:47)
[2022-10-09 19:56] VITALS: BP 112/73; PULSE 66; RESP 18; TEMP 36.4; O2SAT 97
--- NOTE | 2022-10-09 20:05 | HP.PCM_ITS ---
HPI - General General Date of Admission: 10/09/22 Date of Service: 10/09/22 Chief Complaint: Abdominal pain, nausea. HPI Narrative The patient is a 62 y/o M w/ PMHx: Chronic neck pain with associated Migraines, Anxiety and Depression, CKD stage II, 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, IBS, Hx prepyloric ulcer w/ GERD w/ Hx GI bleed, Hx prior Choledocholithasis s/p cholecystectomy, Tobacco use, recent admission 08/26/22-08/28/22 for abdominal pain, intractable nausea in the setting of chronic mesenteric ischemia who presents to the [facility] ED on 10/09/22 with history of worsening abdominal discomfort and nausea increasing on day of presentation with his abdominal discomfort reported below his sternum with radiation to his left and then downward to the left lower quadrant with recent prescription for hydromorphone which he has been taking with no self administration of pain medication on day of presentation with admitted constipation with no recent black or bright red blood appearing stools but given not improved prompted ED evaluation. Patient reports his pain 6 out of 10 and in severity and again very focally in that specific region with aching/throbbing discomfort but more severe and sharp stabbing with palpation. He notes the pain seems worse if he goes prolonged periods of time without food. He notes the pain comes and goes. He does state he seems a little better if he eats chicken noodle soup but this is short-lived. He also reports having a fishing trip with his friend in [place] returning this past Friday with onset of congestion as well as mild headache and coughing on Friday but this seems to have improved and his primary care physician he reports given medications for possible bronchitis. He notes that his abdominal discomfort is similar to what he had previously and this started approximately 2 days ago. Work-up in the ED included T37, heart rate 99, respiratory rate 18, 97% oxygenation, CBC with WC 9.1, hemoglobin 16.4, platelet 265 without marked shift, CMP with sodium 131, BUN/creat 18/1.31, alk phos 135 otherwise hepatic profile not marked appearing, lactic acid 1.4, lipase 33, urinalysis unremarkable. In the ED patient administered normal saline, Zofran 4 mg IV x1, Dilaudid 0.5 mg IV x2, dextrose amp. ED discussed patient case and presentation with Dr. Carol CRENSHAW. [facility] Medical History Arthritis Celiac artery stenosis Difficulty chewing Difficulty swallowing Gastric reflux High cholesterol History of diverticulitis History of GI bleed History of IBS History of steroid therapy History of ulceration Injury of head and neck Kidney stones Mesenteric artery stenosis Mesenteric ischemia, chronic Migraine headache Smoker Wears glasses Home Medications clopidogrel 75 mg tablet 75 mg PO QHS anti platelet 09/23/16 [History Last Taken 08/22/22] rosuvastatin 10 mg tablet 10 mg PO QHS cholesterol 06/08/18 [History Last Taken 08/22/22] aspirin 81 mg tablet 81 mg PO DAILY [facility] 07/20/22 [History Last Taken 08/23/22] pantoprazole 40 mg tablet,delayed release (Protonix) 20 mg PO QHS acid reflux 07/20/22 [History Last Taken 08/22/22] ondansetron 4 mg disintegrating tablet 4 mg PO Q8H PRN PRN Nausea #10 tabs 08/24/22 [Rx Last Taken Unknown] oxycodone-acetaminophen 5 mg-325 mg tablet (Percocet) 1 tab PO Q8H PRN pain 3 days #10 tabs 08/24/22 [Rx Last Taken Unknown] cholestyramine-aspartame 4 gram oral powder (Cholestyramine Light) 4 g PO DAILY #201.6 grams 09/06/22 [Rx Last Taken Unknown] Allergy/AdvReac Type Severity Reaction Status Date / Time omeprazole AdvReac Other Verified 10/09/22 15:30 Family History (Updated 10/09/22 @ 19:[address] Abigail Alonzo MD) Father Colon cancer Mother COPD (chronic obstructive pulmonary disease) Lung cancer Concurrent tobacco use history. Surgical History History of cholecystectomy History of esophagogastroduodenoscopy (EGD) Hx of cervical spine surgery Hx of colonoscopy Hx of surgical procedure Social History (Updated 10/09/22 @ 20:[address] Abigail Alonzo MD) household members: spouse Smoking Status: Current every day smoker tobacco type: cigarettes how long ago did patient quit smoking: Cut back over 2-3 weeks, down to 3 cig/day 10/09/22. alcohol intake: current alcohol intake frequency: a few times a month details: occasional use substance use type: does not use ROS ROS Narrative Admission Review of Systems: CONSTITUTIONAL: No weight loss, fever, chills, + weakness or fatigue. HEENT: + Congestion, rhinorrhea, chronic headaches/migraines. Eyes: No visual loss, blurred vision, double vision or yellow sclerae. Ears, Nose, Throat: No hearing loss, sneezing or sore throat. SKIN: No rash or itching, lesions, wounds. CARDIOVASCULAR: + Chest congestion. No chest pain, chest pressure or chest discomfort, palpitations, edema, orthopnea, syncopal events. RESPIRATORY: + Recent cough with occasional wheeze, resolved. No marked sputum production, hemoptysis. GASTROINTESTINAL:+ anorexia, nausea without vomiting, abdominal pain, occasional issues with constipation. No diarrhea, melena, BRBPR. GENITOURINARY: No dysuria, frequency, urgency or retention. NEUROLOGICAL: No headache, dizziness, syncope, paralysis, ataxia, numbness or tingling in the extremities, focal weakness, change in bowel or bladder control, seizure. MUSCULOSKELETAL:+ muscle, back pain, joint pain or stiffness. HEMATOLOGIC: No anemia, bleeding or bruising. LYMPHATICS: No enlarged nodes. No history of splenectomy. PSYCHIATRIC: + history of depression or anxiety. ENDOCRINOLOGIC: No reports of sweating, cold or heat intolerance. No polyuria or polydipsia. ALLERGIES: No history of asthma, hives, eczema or rhinitis. Vital Signs Vital Signs Vital Signs: 10/09/22 15:26 10/09/22 17:26 10/09/22 19:00 Temperature 97 F L Temperature Source Temporal Pulse Rate 99 Respiratory Rate 18 18 Blood Pressure 119/80 Blood Pressure Mean 93 Pulse Ox 97 Oxygen Delivery Method Room Air Weight Weight: 107 lb Body Mass Index (BMI) 15.3 Physical Exam Narrative Physical Examination: General: Awake, alert, oriented x 3 and cooperative, seated upright in the ED bed, fatigued appearing, reports pain currently 6 out of 10 in severity to his abdomen, does sound nasally/congested but notes he is improved. Skin: Normal color, normal turgor, no icterus, no cyanosis. HEENT: AT/NC, EOMI, PERRLA, moderately dry MM, no carotid bruits or JVD noted. Lungs: Diminished, greater bases, moderate effort, currently no rales, ronchi or wheezing. Heart: Regular rate and rhythm; no gallop, rub audible. Abdomen: Soft, notable discomfort with palpation between the umbilicus and the lower sternal region with some voluntary guarding, no obvious distention, mildly decreased bowel sounds, no obvious HSM. Extremities: No cyanosis, clubbing, or edema. Neurological: Patient awake, alert, oriented x 3, cognitive function intact; pupils equally reactive to light and accommodation, cranial nerves II-XII grossly normal, moving all 4 extremities, no focal deficits, strength moderately global decrease secondary to acute complaints. Psychiatric: Affect appears fatigued, uncomfortable with evaluation, no acute evidence of depressive or anxiety feelings. Results Lab / Micro Data Result Diagrams: 10/09/22 16:10 10/09/22 16:10 Labs: Laboratory Results - last 24 hr 10/09/22 16:10: WBC 9.1, RBC 5.30, Hgb 16.4, Hct 46.8, MCV 88.3, MCH 30.9, MCHC 35.0, RDW Std Deviation 43.9, RDW Coeff of Rashida 13.7, Plt Count 265, MPV 12.4 H, Immature Gran % (Auto) 0.600, Neut % (Auto) 72.2 H, Lymph % (Auto) 15.6 L, [place] % (Auto) 9.9, Eos % (Auto) 0.9, Baso % (Auto) 0.8, Absolute Neuts (auto) 6.6, Absolute Lymphs (auto) 1.42, Nucleated RBC % 0, Platelet Estimate ADEQUATE, RBC Morphology N CHROM, Anisocytosis RARE 10/09/22 16:10: Sodium 131 L, Potassium 4.9, Chloride 102, Carbon Dioxide 24.0, Anion Gap 5, BUN 18, Creatinine 1.31 H, Estim Creat Clear Calc 40.65, Est GFR (MDRD) Af Amer 71, Est GFR (MDRD) Non-Af 59 L, BUN/Creatinine Ratio 13.7, Glucose 96, Calcium 9.0, Total Bilirubin 0.50, AST 27, ALT 24, Alkaline Phosphatase 135 H, Total Protein 7.6, Albumin 4.2, Globulin 3.4, Albumin/Globulin Ratio 1.2 10/09/22 16:10: Lactic Acid 1.4 04/19/23 16:10: Lipase 33 10/09/22 17:41: Urine Color Yellow, Urine Clarity Clear, Urine pH 6.0, Ur Specific [place] 1.015, Urine Protein 15 H, Urine Glucose (UA) Normal, Urine Ketones 5 H, Urine Occult Blood 10 H, Urine Nitrite Negative, Urine Bilirubin Negative, Urine Urobilinogen Normal, Ur Leukocyte Esterase 25 H, Urine RBC 0 SEEN, Urine WBC 0 SEEN, Ur Squamous Epith Cells 0 SEEN, Urine Bacteria 0 SEEN, Urine Mucus RARE Assessment & Plan Assessment/Plan (1) Superior mesenteric artery syndrome: PLAN: Plan The patient is a 62 y/o M w/ PMHx: Chronic neck pain with associated Migraines, Anxiety and Depression, CKD stage II, 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, IBS, Hx prepyloric ulcer w/ GERD w/ Hx GI bleed, Hx prior Choledocholithasis s/p cholecystectomy, Tobacco use, recent admission 08/26/22-08/28/22 for abdominal pain, intractable nausea in the setting of chronic mesenteric ischemia who presents to the [facility] ED on 10/09/22 with history of worsening abdominal discomfort and nausea increasing on day of presentation with his abdominal discomfort reported below his sternum with radiation to his left and then downward to the left lower quadrant with recent prescription for hydromorphone which he has been taking with no self administration of pain medication on day of presentation with admitted constipation with no recent black or bright red blood appearing stools but given not improved prompted ED evaluation. #1. Recurrent Acute on Chronic Intractable Abdominal Pain/Nausea suspected s econdary to Chronic Mesenteric Ischemia and recently noted Marylu-Najera tear, erythematous mucosa in the gastric, mild duodenitis, acquired duodenal stenosis and narrowing with stenosis in the third portion of the duodenum possibly secondary superior mesenteric artery syndrome: Given intractable pain and nausea will admit to MS, will re-consult Dr. Carol CRENSHAW, will allow clears only, maintain on IV PPI, continue asa, plavix, statin, PRN oral and IV pain regimen, PRN antiemetics, of note most recent CTA Abd/Pelvis 09/18/21 with vascular stents at the origin of the celiac artery and superior mesenteric artery noted to be patent but given symptoms will hydrate and repeat renal Fx in AM w/ planned CTA Abd/Pelvis to assure no recurrent stenosis as etiology unless renal function worsens. Given recent MW tear with clip will hold on heparin drip in the interim unless imaging concerning for vascular intervention needs. #2. Acute Mild Renal Insufficiency on Chronic Kidney Disease Stage II: Seco ndary to decreased oral intake with #1. Admission BUN/Cr 18/1.31, baseline renal function primarily 0.8- maximum 1.1, repeat BMP in AM. #3. Recent upper respiratory infection/acute viral syndrome with questionable bronchitis: Patient is feeling improved but given his symptoms will to be cautious obtain COVID PCR, he is not hypoxic and given timeline from onset the Friday prior would consider out of infectious range even if COVID-positive at this time. #4. Hx Superior mesenteric artery stenosis/celiac artery stenosis w/ chronic mesenteric ischemia: s/p multiple stents in both celiac artery and SMA, will continue patient home aspirin, Plavix, statin therapy, continue intervention and treatment as noted #1. #5. 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 #6. Hx prior Choledocholithasis s/p cholecystectomy: Currently given presentation will allow clears only, continue cholestyramine home regimen. #7. Tobacco Abuse: Encouraged cessation, inpatient consultation per RT, NR if desired. #8. Anxiety and depression: From prior admission records patient is on Cymbalta, not on medication regimen listed, will clarify and add if appropriate. #9. Chronic migraines: Patient with chronic migraines with history of cervical neck surgery, uses as needed migraine medication per his report outpatient. #10. DVT prophylaxis: SCDs given recent intervention with Marylu-Najera tear and clipping but if CTA obtained following overnight judicious hydration given mild insufficiency is notable for any concerning vascular findings low threshold to add heparin drip at that time. #11. CODE status: Patient HCPOA is his and living will is currently in place. Discussed CODE status at length including difference between FULL code, DNR-CCA and DNR-CC status. Following discussions about the differences in these status, requested Full Code status. Advanced Care Planning Face to Face Time: 16 minutes. Admission Evaluation Time spent evaluating chart, patient history, patient evaluation, care planning and discussion with specialists: 75 minutes. Charges/Coding Visit Charges Inpatient E&M: 60804 Init Hosp L3 Procedures Hospitalists Procedures: 01273 Advncd Care Plan 30 Min
[2022-10-09 20:39] VITALS: BP 121/94; PULSE 68; RESP 18; TEMP 36.7; O2SAT 100
[2022-10-09] MEDS: 0.9% Normal Saline 1,000 ML 999 ML IV (20:47)
[2022-10-09] MEDS: 0.9% Normal Saline 1,000 ML 125 ML IV (21:51)
[2022-10-09] MEDS: Clopidogrel Bisulfate 75 MG Tablet PO (22:33)
[2022-10-10 00:06] VITALS: BP 128/79; PULSE 62; RESP 18; TEMP 36.7; O2SAT 100
[2022-10-10] MEDS: HYDROmorphone 0.5 MG/0.5 ML SYRINGE IV ×2 (00:08→03:26)
[2022-10-10] MEDS: Ondansetron 4 MG/2 ML Vial IV (01:15)
[2022-10-10 03:24] VITALS: BP 125/72; PULSE 61; RESP 18; TEMP 36.9; O2SAT 100
[2022-10-10 06:00] VITALS: BMI 13.1
[2022-10-10] MEDS: 0.9% Normal Saline 1,000 ML 125 ML IV (06:00)
[2022-10-10] MEDS: proCHLORPERazine 10 MG/2 ML Vial 5 MG IV (06:04)
[2022-10-10 06:12] LABS: Absolute Lymphocyte Count 1.66 X10^3/uL (0.83-4.51); Absolute Neutrophil Count 3.6 X10^3/uL (2.0-7.7); Basophil# 0.05 X10^3/uL; Basophil% 0.8 % (0-1); Eosinophil# 0.14 X10^3/uL; Eosinophils% 2.3 % (0-5); Hematocrit 40.7 % (40-54); Hemoglobin 13.7 g/dL (13.0-16.5); Lymphocyte # 1.66 X10^3/ul (0.83-4.51); Lymphocyte % 27.1 % (19-41); Mean Corp Hgb Conc 33.7 g/dL (32-36); Mean Corpuscular Hgb 30.6 pg (27.0-32.0); Mean Corpuscular Volume 91.1 fL (80-94); Mean Platelet Vol. 12.5 fl (6.2-12.0); Monocyte# 0.67 X10^3/uL; Monocyte% 10.9 % (0-10); NRBC Flagged by Analyzer 0 % (0-5); Neutrophil % 58.7 % (47-70); Platelet Count 219 K/mm3 (150-450); RBC Distribution Width SD 47.3 fl (35.1-43.9); Red Blood Count 4.47 M/mm3 (4.6-6.2); White Blood Count 6.1 K/mm3 (4.4-11.0)
[2022-10-10 06:54] LABS: ALB/GLOB Ratio 1.2 RATIO (0.9-2.4); AST(SGOT) 18 U/L (15-37); Alanine Aminotransfer ALT/SGPT 18 U/L (16-61); Albumin, Serum 3.4 g/dL (3.2-5.0); Alkaline Phosphatase 106 U/L (45-117); Anion Gap 5 (5-15); BUN 12 mg/dL (7-18); BUN/Creat Ratio 12.9 RATIO (10-20); Calcium,Total 8.2 mg/dL (8.5-10.1); Chloride 109 mmol/L (98-107); Creatinine, Serum 0.93 mg/dL (0.70-1.30); EST Glomerular Filtration Rate 88 mL/min (>60); Est Glom Filt Rate - Afr Amer 106 mL/min (>60); Estimated Creatinine Clearance 49.08 ml/min; Globulin 2.8 g/dL (2.2-4.2); Glucose 80 mg/dL (74-106); Potassium 3.7 mmol/L (3.5-5.1); Protein, Total 6.2 g/dL (6.4-8.2); Sodium Level 136 mmol/L (136-145)
[2022-10-10 07:30] VITALS: O2SAT 96
--- NOTE | 2022-10-10 08:00 | CT_ITS ---
INDICATION: Abd pain w/ mesenteric ischemia w/ PCI hx -- DO NOT obtain until 4/20 am-want to hydrate 1st. EXAMINATION: CTA abdomen and pelvis - TECHNIQUE: Routine abdominal CT angiogram protocol was performed with IV contrast. MIP images provided. A radiation dose optimization technique was used for this scan. IV Contrast dosage and agent: 100 mL Isovue 300 contrast Radiation dose DLP 273.46 mGy / cm. COMPARISON: 07/20/2022 FINDINGS: Lung bases: Underlying emphysema without a superimposed pulmonary process. Liver: Mild fatty infiltration of the liver noted without discrete lesion. Gallbladder: Previous cholecystectomy Spleen: Normal. Adrenal gland: Normal. Kidneys: Normal. No hydronephrosis or stone formation. Pancreas:Normal. Bowel gas pattern: Nonobstructive. Appendix: Normal. Appendix seen on coronal recon images 47 through 52 Free air: None. Free fluid: None. Pelvis: Pelvic organs: No mass lesion noted. Bone survey: No aggressive bony lesions. No acute fractures. Adenopathy: No significant pathologic adenopathy detected. Other: None. Vascular: There is normal tapering of the abdominal aorta. Patient has previously placed celiac stents and SMA stents. The celiac stent is patent as is the vessel distal to the stent while there is low-density thrombus within the SMA stent and distal to the stent. However, when compared to the previous study, there has been overall improvement with narrowing in the SMA stent and SMA distal to the stent of approximately 20-30%. It is difficult to accurately measure due to motion artifact. However, there is normal cascading of the ileocolic vessels in the mesentery. CT/CTA Abd/Pelvis W/WO Contrast IMPRESSION: The previous study from 07/20/2022 showed near occlusive low-density thrombus within the SMA stent. However, current images show significant improvement since the previous study with that low-density thrombus now causing only approximately 20-30% stenosis within the stent. There is normal cascading of the ileocolic arteries distal to the stent as best seen on the coronal recon images. There is no CT evidence of abnormal appearing small bowel to suspect ischemia. Fatty liver, no discrete lesion Normal tapering of the abdominal aorta with some peripheral calcifications but no significant stenosis or aneurysm. Patent celiac axis stent No free intraperitoneal fluid, air, or suspicious adenopathy. Electronically Signed: Peter Lopes MD at 10:05 EDT ,
[2022-10-10 09:20] VITALS: BP 129/72; PULSE 60; RESP 18; TEMP 36.4; O2SAT 100
[2022-10-10] MEDS: 0.9% Saline Lock 10 ML Syringe IV (11:08)
[2022-10-10] MEDS: Cholestyramine/Sucrose 4 GM/PACKET GT (12:06)
--- NOTE | 2022-10-10 13:55 | DCINST_ITS ---
Discharge Instructions Diet Discharge Diet: Low fat / Low cholesterol Activity Discharge Activity: Return to Normal Activity Weight Bearing Status: Weight bearing as tolerated Dressing / Incision Call your doctor if you observe: Fever of 101 or Higher, Shortness of breath, Dizziness, Swelling in the ankles, Chest pain and Increased palpitations (irregular heartbeat) Follow Up Care Test Results: Test results from this visit will be discussed in further detail at your follow- up appointment, if applicable. Discharge Plan Admission Admit Date/Time: 10/09/22 19:32 Primary Reason for Your Visit: intractable abdominal pain Attending Provider: Joan Elliott Primary Care Provider: Richard Dai Consulting Providers: Abigail Alonzo Instructions Patient Instructions: Abdominal Pain Discharge Orders/Prescriptions Prescriptions: Continued clopidogrel 75 MG tablet 75 mg PO QHS Hold Instructions: hold for five days, then resume rosuvastatin 10 MG tablet 10 mg PO QHS aspirin 81 mg Tablet 81 mg PO DAILY pantoprazole [Protonix] 40 mg tablet,delayed release (DR/EC) 20 mg PO QHS oxycodone-acetaminophen [Percocet] 5-325 mg tablet 1 tab PO Q8H PRN (Reason: pain) 3 Days Qty: 10 0RF ondansetron 4 mg tablet,disintegrating 4 mg PO Q8H PRN PRN (Reason: Nausea) Qty: 10 0RF Cholestyramine Light 4 gram powder 4 g PO DAILY Qty: 201.6 0RF Rx Instructions: administer w/meal; avoid other meds within 1hr before or 2hr after dose Referrals / Follow Up: Kory Medina DO [Med Staff - Active Staff] - Within 2 Weeks Richard Dai MD [Primary Care Provider] - Within 2 Weeks Disposition Disposition (needs filled in before D/C Order can be placed): Home, Self Care
--- NOTE | 2022-10-10 13:55 | DS.PCM_ITS ---
Providers Date of Admission: 10/09/22 Date of Discharge: 10/10/22 Primary Care Physician: Dr. Richard Dai MD Consultations 10/09/22 20:39 Consult: Gastroenterology Routine Consulting Provider: [facility] Reason for Consult: Recurrent abd pain/nausea EMERGENT Consult: No MD Notified: Yes Date Notified: 10/09/22 Time Notified: 19:33 Method of Notification: ED Physician Initiated Reason For Visit: INTRACTABLE ABDOMINAL PAIN, NAUSEA Diagnosis Discharge Diagnosis (1) Superior mesenteric artery syndrome: Status: Acute Code(s): K55.1 - Chronic vascular disorders of intestine Medications at Discharge Home Medications clopidogrel 75 mg tablet 75 mg PO QHS anti platelet 09/23/16 rosuvastatin 10 mg tablet 10 mg PO QHS cholesterol 06/08/18 aspirin 81 mg tablet 81 mg PO DAILY [facility] 07/20/22 pantoprazole 40 mg tablet,delayed release (Protonix) 20 mg PO QHS acid reflux 07/20/22 ondansetron 4 mg disintegrating tablet 4 mg PO Q8H PRN PRN Nausea #10 tabs 08/24/22 oxycodone-acetaminophen 5 mg-325 mg tablet (Percocet) 1 tab PO Q8H PRN pain 3 days #10 tabs 08/24/22 cholestyramine-aspartame 4 gram oral powder (Cholestyramine Light) 4 g PO DAILY #201.6 grams 09/06/22 Hospital Course Operations None Procedures None Summary of Care Provided Minutes Spent on Discharge: 45 Hospital Course: Patient is a 62-year-old male with an extensive past medical history as outlined which includes superior mesenteric artery stenosis and history of prepyloric u lcer. He was admitted with a complaint of abdominal discomfort which has been worsening with associated nausea. At started on the day of presentation. He had been taking pain medication at home but it was not working so he did come into the hospital. He said the pain seemed to get worse if he went long periods without food. He has had such as pain in the past and was attributed to his also and superior mesenteric artery to the stenosis. He was admitted and managed for intractable pain due to superior mesenteric artery stenosis. His pain did improve and he felt much better. He was able to tolerate a diet and requested to be discharged home. He was discharged home on 10/10/2022. He is to follow-up with his primary care doctor and with gastroenterology. Patient seen and examined prior to discharge. No complaints and had an uneventful night. Review of systems otherwise negative. Labs and vitals reviewed. Medication reviewed. Physical Exam Const alert, oriented x3 and no apparent distress General Appearance: cooperative, comfortable and well kempt Orientation / Consciousness: awake Exam Limitations: no limitations HEENT normocephalic, head/scalp atraumatic, hearing grossly normal bilaterally and moist oral mucous membranes Mouth: oral and palatal mucosa normal Eyes PERRL, EOMs intact bilaterally and conjunctivae normal Neck no lymphadenopathy and supple Resp normal respiratory effort, no retractions, no use of accessory muscles and clear to auscultation bilaterally Cardio regular rate, regular rhythm, S1 normal heart sound, S2 normal heart sound and no murmurs GI normal to inspection, nondistended, normoactive bowel sounds, soft to palpation, non-tender and non-distended Extremity normal to inspection, full ROM and no clubbing, cyanosis or edema Skin no rashes or lesions noted and no wounds Neuro oriented x3, CN's II-XII intact bilaterally, moves all extremities and no focal motor deficits Sensorium / Orientation: awake and alert Motor Exam: strength 5/5 throughout Psych affect normal Medical Records Data Medical Nutrition Assessment Dietitian: Malnutrition Criteria Met Start: 10/10/22 13:30 Freq: Status: Active Protocol: Document 10/10/22 13:30 (Rec: 10/10/22 13:30 [id number]) Nutrition Malnutrition Evidence of Malnutrition Exists Yes Malnutrition (severe): Chronic Evidenced By Weight Loss (Severe),Physical Changes (Severe) Clinical Problem Chronic Disease or Condition Related Malnutrition Etiology related to unknown etiology Signs/Symptoms as evidenced by 21.8lbs or 19. 2% loss in 1.5months, <50% intake of estimated needs for 8 days, severe fat/muscle loss to temporal and orbital regions, clavicle; BMI 13.2kg/ m2 Status Active Problem Recommendation Dietitian Recommendations/Changes Continue Regular diet to optimize oral intakes. RD will order 120mL EPHP 4x with medpass to promote weight gain. Weight / BMI Weight Weight: 91 lb 11.397 oz Body Mass Index (BMI) 13.1 ABG / Lab / Microbiology Data Result Diagrams: 10/10/22 05:01 10/10/22 05:01 Laboratory: Laboratory Results - last 24 hr 10/09/22 16:10: WBC 9.1, RBC 5.30, Hgb 16.4, Hct 46.8, MCV 88.3, MCH 30.9, MCHC 35.0, RDW Std Deviation 43.9, RDW Coeff of Rashida 13.7, Plt Count 265, MPV 12.4 H, Immature Gran % (Auto) 0.600, Neut % (Auto) 72.2 H, Lymph % (Auto) 15.6 L, [place] % (Auto) 9.9, Eos % (Auto) 0.9, Baso % (Auto) 0.8, Absolute Neuts (auto) 6.6, Absolute Lymphs (auto) 1.42, Nucleated RBC % 0, Platelet Estimate ADEQUATE, RBC Morphology N CHROM, Anisocytosis RARE 10/09/22 16:10: Sodium 131 L, Potassium 4.9, Chloride 102, Carbon Dioxide 24.0, Anion Gap 5, BUN 18, Creatinine 1.31 H, Estim Creat Clear Calc 40.65, Est GFR (MDRD) Af Amer 71, Est GFR (MDRD) Non-Af 59 L, BUN/Creatinine Ratio 13.7, Glucose 96, Calcium 9.0, Total Bilirubin 0.50, AST 27, ALT 24, Alkaline Phos phatase 135 H, Total Protein 7.6, Albumin 4.2, Globulin 3.4, Albumin/Globulin Ratio 1.2 10/09/22 16:10: Lactic Acid 1.4 10/09/22 16:10: Lipase 33 10/09/22 17:41: Urine Color Yellow, Urine Clarity Clear, Urine pH 6.0, Ur Specific [place] 1.015, Urine Protein 15 H, Urine Glucose (UA) Normal, Urine Ketones 5 H, Urine Occult Blood 10 H, Urine Nitrite Negative, Urine Bilirubin Negative, Urine Urobilinogen Normal, Ur Leukocyte Esterase 25 H, Urine RBC 0 SEEN, Urine WBC 0 SEEN, Ur Squamous Epith Cells 0 SEEN, Urine Bacteria 0 SEEN, Urine Mucus RARE 10/09/22 20:04: COVID-19 (HELLEN) Not Detected 10/10/22 05:01: WBC 6.1, RBC 4.47 L, Hgb 13.7, Hct 40.7, MCV 91.1, MCH 30.6, MCHC 33.7, RDW Std Deviation 47.3 H, RDW Coeff of Rashida 14.0, Plt Count 219, MPV 12.5 H, Immature Gran % (Auto) 0.200, Neut % (Auto) 58.7, Lymph % (Auto) 27.1, [place] % (Auto) 10.9 H, Eos % (Auto) 2.3, Baso % (Auto) 0.8, Absolute Neuts (auto) 3.6, Absolute Lymphs (auto) 1.66, Nucleated RBC % 0 10/10/22 05:01: Sodium 136, Potassium 3.7, Chloride 109 H, Carbon Dioxide 22.0, Anion Gap 5, BUN 12, Creatinine 0.93, Estim Creat Clear Calc 49.08, Est GFR (MDRD) Af Amer 106, Est GFR (MDRD) Non-Af 88, BUN/Creatinine Ratio 12.9, Glucose 80, Calcium 8.2 L, Total Bilirubin 0.40, AST 18, ALT 18, Alkaline Phosphatase 106, Total Protein 6.2 L, Albumin 3.4, Globulin 2.8, Albumin/Globulin Ratio 1.2 Radiography Diagnostic Testing: Radiology Impression Abdomen/Pelvis CTA 10/10/22 08:00 IMPRESSION: The previous study from 07/20/2022 showed near occlusive low-density thrombus within the SMA stent. However, current images show significant improvement since the previous study with that low-density thrombus now causing only approximately 20-30% stenosis within the stent. There is normal cascading of the ileocolic arteries distal to the stent as best seen on the coronal recon images. There is no CT evidence of abnormal appearing small bowel to suspect ischemia. Fatty liver, no discrete lesion Normal tapering of the abdominal aorta with some peripheral calcifications but no significant stenosis or aneurysm. Patent celiac axis stent No free intraperitoneal fluid, air, or suspicious adenopathy. Electronically Signed: Peter Lopes MD at 10:05 EDT , D/C Instructions Discharge Diet: Low fat / Low cholesterol Discharge Activity: Return to Normal Activity Weight Bearing Status: Weight bearing as tolerated Call your doctor if you observe: Fever of 101 or Higher, Shortness of breath, Dizziness, Swelling in the ankles, Chest pain and Increased palpitations (irre gular heartbeat) Meaningful Use Info Meaningful Use Diagnoses (Choose all that apply): None applicable Discharge Plan Admission Admit Date/Time: 10/09/22 19:32 Primary Reason for Your Visit: intractable abdominal pain Attending Provider: Joan Elliott Primary Care Provider: Richard Dai Consulting Providers: Abigail Alonzo Instructions Patient Instructions: Abdominal Pain Discharge Orders/Prescriptions Prescriptions: Continued clopidogrel 75 MG tablet 75 mg PO QHS Hold Instructions: hold for five days, then resume rosuvastatin 10 MG tablet 10 mg PO QHS aspirin 81 mg Tablet 81 mg PO DAILY pantoprazole [Protonix] 40 mg tablet,delayed release (DR/EC) 20 mg PO QHS oxycodone-acetaminophen [Percocet] 5-325 mg tablet 1 tab PO Q8H PRN (Reason: pain) 3 Days Qty: 10 0RF ondansetron 4 mg tablet,disintegrating 4 mg PO Q8H PRN PRN (Reason: Nausea) Qty: 10 0RF Cholestyramine Light 4 gram powder 4 g PO DAILY Qty: 201.6 0RF Rx Instructions: administer w/meal; avoid other meds within 1hr before or 2hr after dose Referrals / Follow Up: Kory Medina DO [Med Staff - Active Staff] - Within 2 Weeks Richard Dai MD [Primary Care Provider] - Within 2 Weeks Disposition Disposition (needs filled in before D/C Order can be placed): Home, Self Care Charges/Coding Visit Charges Inpatient E&M: 60613 Disch Hosp >30min
--- NOTE | 2022-10-10 14:42 | PHA.DC.MR ---
Pharmacy Service has performed discharge medication reconciliation for this patient. No new medications at time of discharge review. Medications reviewed are from previously reported home medications. Home Medications clopidogrel 75 mg tablet 75 mg PO QHS anti platelet 09/23/16 rosuvastatin 10 mg tablet 10 mg PO QHS cholesterol 06/08/18 aspirin 81 mg tablet 81 mg PO DAILY [facility] 07/20/22 pantoprazole 40 mg tablet,delayed release (Protonix) 20 mg PO QHS acid reflux 07/20/22 ondansetron 4 mg disintegrating tablet 4 mg PO Q8H PRN PRN Nausea #10 tabs 08/24/22 oxycodone-acetaminophen 5 mg-325 mg tablet (Percocet) 1 tab PO Q8H PRN pain 3 days #10 tabs 08/24/22 cholestyramine-aspartame 4 gram oral powder (Cholestyramine Light) 4 g PO DAILY #201.6 grams 09/06/22 The patient's discharge medication list was reviewed for discrepancies and discrepancies were resolved.
== END 2022-10-10 13:55 | disposition home or self-care (01) ==
LOC: ED 15:50 → PCU 20:22
PROVIDERS: Admitting Provider Family Medicine; Emergency Provider Emergency Medicine; PCP Family Medicine; Visit Provider Student in an Organized Health Care Education/Training Program
DX: K55.1 Chronic vascular disorders of intestine (principal); F17.210 Nicotine dependence, cigarettes, uncomplicated; Z79.82 Long term (current) use of aspirin; G89.29 Other chronic pain; E86.0 Dehydration; Z79.02 Long term (current) use of antithrombotics/antiplatelets; E78.00 Pure hypercholesterolemia, unspecified; K21.9 Gastro-esophageal reflux disease without esophagitis; N18.2 Chronic kidney disease, stage 2 (mild); Z79.899 Other long term (current) drug therapy
CPT/HCPCS: 36415; 74174; 80053; 81001; 83605; 83690; 85025; 87635; 93005; 96361; 96365; 96366; 96375; 96376; 97802; 99221; 99283; 99406; J7030; Q9967; A4216; G0378; J2405; U0003; U0005

== ENCOUNTER 2022-11-12 08:34 | Observation (INO) | payer OTHER, SELFPAY ==
[2022-11-12 08:34] VITALS: BP 111/71; PULSE 55; RESP 18; TEMP 35.7; O2SAT 98; BMI 15.7
--- NOTE | 2022-11-12 09:00 | EDS_ITS ---
HPI History of Present Illness Chief Complaint: Abd Pain Informant: patient Onset/Context/Timing Onset: Days (3 days) Narrative Narrative: Patient presents with recurrent abdominal pain. This particular episode has been ongoing for the past 3 days. He complains of epigastric abdominal pain with nausea but has not had vomiting. No fever. 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 He had stents placed previously. He has been following with GI and he states they are currently working up a possible diagnosis of porphyria. [facility] Medical History Arthritis Celiac artery stenosis Difficulty chewing Difficulty swallowing Gastric reflux High cholesterol History of diverticulitis History of GI bleed History of IBS History of steroid therapy History of ulceration Injury of head and neck Kidney stones Mesenteric artery stenosis Mesenteric ischemia, chronic Migraine headache Smoker Superior mesenteric artery syndrome Wears glasses Home Medications clopidogrel 75 mg tablet 75 mg PO QHS anti platelet 09/23/16 [History Last Taken 08/22/22] rosuvastatin 10 mg tablet 10 mg PO QHS cholesterol 06/08/18 [History Last Taken 08/22/22] aspirin 81 mg tablet 81 mg PO DAILY [facility] 07/20/22 [History Last Taken 08/23/22] pantoprazole 40 mg tablet,delayed release (Protonix) 20 mg PO QHS acid reflux 07/20/22 [History Last Taken 08/22/22] ondansetron 4 mg disintegrating tablet 4 mg PO Q8H PRN PRN Nausea #10 tabs 08/24/22 [Rx Last Taken Unknown] oxycodone-acetaminophen 5 mg-325 mg tablet (Percocet) 1 tab PO Q8H PRN pain 3 days #10 tabs 08/24/22 [Rx Last Taken Unknown] cholestyramine-aspartame 4 gram oral powder (Cholestyramine Light) 4 g PO DAILY #201.6 grams 09/06/22 [Rx Last Taken Unknown] Allergy/AdvReac Type Severity Reaction Status Date / Time omeprazole AdvReac Other Verified 10/09/22 15:30 Family History Father Colon cancer Mother COPD (chronic obstructive pulmonary disease) Lung cancer Concurrent tobacco use history. Surgical History History of cholecystectomy History of esophagogastroduodenoscopy (EGD) Hx of cervical spine surgery Hx of colonoscopy Hx of surgical procedure Social History household members: spouse Smoking Status: Current every day smoker tobacco type: cigarettes how long ago did patient quit smoking: Cut back over 2-3 weeks, down to 3 cig/day 10/09/22. alcohol intake: current alcohol intake frequency: a few times a month details: occasional use substance use type: does not use ROS ROS ED Constitutional Constitutional ED: Denies chills or fever(s) Eyes Eyes: Denies change in vision or discharge from eye(s) ENT ENT ED: Denies discharge from eye(s), rhinorrhea or sore throat Cardiovascular Cardiovascular: Denies chest pain or palpitations Respiratory/Chest Respiratory/Chest: Denies cough or dyspnea Gastrointestinal Gastrointestinal: Reports abdominal pain and nausea; Denies diarrhea or vomiting Genitourinary Genitourinary ED: Denies dysuria Musculoskeletal Musculoskeletal: Denies back pain or extremity pain Integumentary Denies Abrasions or rash Neurologic Neurologic: Denies headache(s) or weakness Psychiatric Psychiatric: Denies anxiety or depression Allergic/Immunologic Allergic/Immunologic ED: Denies lip swelling or urticaria EXAM Physical Exam Const Vital Signs: 11/12/22 08:34 11/12/22 11:42 Temperature 96.2 F L Temperature Source Temporal Pulse Rate 55 L 92 Respiratory Rate 18 15 Blood Pressure 111/71 142/69 H Blood Pressure Mean 84 93 Pulse Ox 98 97 Oxygen Delivery Method Room Air Room Air Positive well nourished and well developed General Appearance ED: well developed HEENT Reports normocephalic and head/scalp atraumatic Eyes PERRL and EOMs intact bilaterally Neck supple Chest Wall inspection of chest normal and palpation of chest normal Resp normal respiratory effort and clear to auscultation bilaterally Cardio regular rate and regular rhythm GI GI Narrative: Abdomen with diffuse tenderness palpation. Hypoactive bowel sounds noted. No guarding. Palpation: soft Extremity normal to inspection Neuro oriented x3 and no sensory deficits noted Sensorium / Orientation: alert Motor Exam: strength 5/5 throughout Psych mental status grossly normal Skin no rashes or lesions noted MDM MDM MDM Narrative Medical decision making narrative: Patient is given IV fluids along with Dilaudid and Zofran. He states during his last admission he got IV dextrose which he felt helped him so he was given 250 mL's of D10W. Labwork obtained to evaluate for leukocytosis, anemia, and electrolyte derangement. Given the patient's history of celiac and mesenteric artery stenosis with stents a CTA of the abdomen and pelvis obtained. Lab Data Attestation: I reviewed the patient's lab results. Labs: Laboratory Results - last 24 hr 11/12/22 11/12/22 11/12/22 09:07 09:07 09:07 WBC 8.2 RBC 5.27 Hgb 16.3 Hct 47.0 MCV 89.2 MCH 30.9 MCHC 34.7 RDW Std Deviation 45.8 H RDW Coeff of Rashida 14.0 Plt Count 214 MPV 12.7 H Immature Gran % (Auto) 0.400 Neut % (Auto) 71.8 H Lymph % (Auto) 17.1 L [place] % (Auto) 9.1 Eos % (Auto) 0.9 Baso % (Auto) 0.7 Absolute Neuts (auto) 5.9 Absolute Lymphs (auto) 1.40 Nucleated RBC % 0 Sodium 135 L Potassium 4.1 Chloride 106 Carbon Dioxide 21.0 Anion Gap 8 BUN 15 Creatinine 1.15 Estim Creat Clear Calc 47.61 Est GFR (MDRD) Af Amer 83 Est GFR (MDRD) Non-Af 69 BUN/Creatinine Ratio 13.0 Glucose 103 Lactic Acid 1.5 Calcium 9.5 Total Bilirubin 0.60 Direct Bilirubin 0.13 AST 23 ALT 22 Alkaline Phosphatase 132 H Total Protein 7.7 Albumin 4.2 Globulin 3.5 Lipase 22 Radiography Diagnostic Testing: Clinical Impression(s) from Imaging Studies Abdomen/Pelvis CTA 11/12/22 09:01 IMPRESSION: Findings are consistent with ongoing waxing and waning distention of the duodenum possibly due to a partial malrotation phenomenon and/or superior mesenteric artery syndrome with a distended appearance proximal duodenum up to 3.2 cm with an air-fluid level and a narrowed appearance of the mid second and third part of the duodenum. There is also mild wall thickening of the small bowel which may represent mild enteritis. There is also a thickened appearance of the descending colon and sigmoid suspicious for mild colitis. Overall pattern consider possible mild enterocolitis. Recommend consideration for follow-up study which could include upper GI small bowel follow-through. Status post cholecystectomy. Normal caliber of the aorta. Patent stents within the celiac and superior mesenteric artery. 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 Hepatic steatosis. Electronically Signed: Ritika Pavon MD at 10:54 EDT , Differential Diagnosis Abdominal Pain: Pancreatitis Reason(s) Pancreatitis less likely: NL lab values and Bowel obstruction Reason(s) bowel obstruction less likely: no evidence of bowel obstruction on imaging studies Treatment and Re-Evaluation :: CBC is unremarkable. Chemistry studies reveal a sodium slightly low at 135. LFTs significant only for an alk phos of 132. Lipase is normal at 22. Lactic acid is normal at 1.5. CTA of the abdomen pelvis reveals distention of the duodenum possibly due to partial malrotation phenomenon and or superior mesenteric artery syndrome. The proximal duodenum is distended up to 3.2 cm with an air-fluid level and there is a narrowed appearance to the mid second and third part of the duodenum. Mild wall thickening of the small bowel is also noted which may represent mild enteritis. On repeat exam patient lying supine in the bed. He continues to have upper abdominal pain and nausea. No guarding noted on abdominal exam. I spoke with Sofiya Hayden, nurse practitioner for Dr. Medina. We reviewed the patient's history. At this time she recommends continued supportive care and admission if need be. After second dose of Dilaudid patient continues to rate his pain at least a 5. I will discuss case with hospitalist regarding admission for supportive care. Discharge Plan Dx/Rx/DC Orders Clinical Impression: Abdominal pain, Nausea Disposition Disposition: Acute Care Hospital [facility]
--- NOTE | 2022-11-12 09:01 | CT_ITS ---
INDICATION: abd pain, H/O arterial stenosis EXAMINATION: CTA abdomen and pelvis - TECHNIQUE: Routine abdominal CT angiogram protocol was performed with IV contrast. MIP images provided. A radiation dose optimization technique was used for this scan. IV Contrast dosage and agent: 100 mL Isovue-370 Radiation dose DLP mGy / cm. COMPARISON: CT angiogram of the abdomen and pelvis October 10, 2022, CT abdomen and pelvis with IV contrast July 20, 2022. FINDINGS: Lung bases: Normal. The base of the heart appears of normal size. Liver: The liver is fatty infiltrated. Gallbladder: : Bladder is been surgically removed. Spleen: Normal. Adrenal gland: Normal. Kidneys: Normal. No hydronephrosis or stone formation. Pancreas:Normal. Bowel gas pattern: There is a decompressed appearance of the stomach. There is a distended appearance of the duodenum with an air-fluid level greater than prior study October 10, 2022 greater than July 20, 2022. There is a narrowed appearance of the duodenum with a low lying appearance of the C-loop at the level of the bifurcation. There is mild wall thickening of the small bowel. There is visualized mild to moderate stool within the colon. This visualize wall thickening of the descending colon and sigmoid. This is increased since the prior studies. There is visualized diverticulosis without definitive inflammation of the diverticula. Appendix: Normal. Free air: None. Free fluid: None. Pelvis: Pelvic organs: There is wall thickening of the bladder similar to the prior studies. Wall the bladder measures up to 1 cm. Prostate is mildly enlarged. Bone survey: Bones are osteopenic. There is a broad disc bulge L4-L5 and L5-S1 with mild neural foramina narrowing. Adenopathy: No significant pathologic adenopathy detected. Other: None. Vascular: At the hiatus measures 1.9 x 2.4 cm. There is a visualized stent at the level of the celiac with mild narrowing of the vessel within the stent with patency seen on image #73 series 602. There is a stent within the take off of the superior mesenteric artery with mild to moderate narrowing of the vessels centrally with good contrast enhancement distally within the mid and distal mesenteric arteries. There is a stenotic appearance of the take off of the inferior mesenteric artery which appears to be reconstituted. The aorta at the level of the renal arteries measures 1.3 x 1.6 cm without calcification. The aorta at the level of the inferior mesenteric artery measures 1.2 x 1.3 cm. The aortic bifurcation has a normal caliber. There is fairly dense calcification of the takeoff of the bilateral common iliac arteries without stenosis. There is a subtle stable nonaneurysmal irregularity possible minimal dissection of the left internal common iliac artery which is not appear to extend into the vessels. There is a small caliber but patent left external iliac artery. The right external iliac artery is normal without significant plaque formation. There is mild to moderate narrowing of the bilateral internal iliac arteries, secondary to plaque formation. CT/CTA Abd/Pelvis W/WO Contrast IMPRESSION: Findings are consistent with ongoing waxing and waning distention of the duodenum possibly due to a partial malrotation phenomenon and/or superior mesenteric artery syndrome with a distended appearance proximal duodenum up to 3.2 cm with an air-fluid level and a narrowed appearance of the mid second and third part of the duodenum. There is also mild wall thickening of the small bowel which may represent mild enteritis. There is also a thickened appearance of the descending colon and sigmoid suspicious for mild colitis. Overall pattern consider possible mild enterocolitis. Recommend consideration for follow-up study which could include upper GI small bowel follow-through. Status post cholecystectomy. Normal caliber of the aorta. Patent stents within the celiac and superior mesenteric artery. 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 Hepatic steatosis. Electronically Signed: Ritika Pavon MD at 10:54 EDT ,
[2022-11-12 09:14] LABS: Absolute Neutrophil Count 5.9 X10^3/uL (2.0-7.7); Basophil# 0.06 X10^3/uL; Basophil% 0.7 % (0-1); Eosinophil# 0.07 X10^3/uL; Eosinophils% 0.9 % (0-5); Hemoglobin 16.3 g/dL (13.0-16.5); Lymphocyte % 17.1 % (19-41); Mean Corp Hgb Conc 34.7 g/dL (32-36); Mean Corpuscular Hgb 30.9 pg (27.0-32.0); Mean Corpuscular Volume 89.2 fL (80-94); Mean Platelet Vol. 12.7 fl (6.2-12.0); Monocyte# 0.75 X10^3/uL; Monocyte% 9.1 % (0-10); NRBC Flagged by Analyzer 0 % (0-5); Neutrophil # 5.89 X10^3/uL (2.7-7.7); Neutrophil % 71.8 % (47-70); Platelet Count 214 K/mm3 (150-450); RBC Distribution Width SD 45.8 fl (35.1-43.9); Red Blood Count 5.27 M/mm3 (4.6-6.2); White Blood Count 8.2 K/mm3 (4.4-11.0)
[2022-11-12] MEDS: HYDROmorphone 1 MG/ML Syringe 0.5 MG IV (09:17)
[2022-11-12] MEDS: 0.9% Normal Saline 1,000 ML 150 ML IV (09:17)
[2022-11-12] MEDS: Ondansetron 4 MG/2 ML Vial IV ×3 (09:17→23:29)
[2022-11-12 09:33] LABS: AST(SGOT) 23 U/L (15-37); Alanine Aminotransfer ALT/SGPT 22 U/L (16-61); Albumin, Serum 4.2 g/dL (3.2-5.0); Alkaline Phosphatase 132 U/L (45-117); Anion Gap 8 (5-15); BUN 15 mg/dL (7-18); Bilirubin, Direct 0.13 mg/dL (0.00-0.30); Calcium,Total 9.5 mg/dL (8.5-10.1); Chloride 106 mmol/L (98-107); Creatinine, Serum 1.15 mg/dL (0.70-1.30); EST Glomerular Filtration Rate 69 mL/min (>60); Est Glom Filt Rate - Afr Amer 83 mL/min (>60); Estimated Creatinine Clearance 47.61 ml/min; Globulin 3.5 g/dL (2.2-4.2); Glucose 103 mg/dL (74-106); Lipase 22 U/L (13-75); Potassium 4.1 mmol/L (3.5-5.1); Protein, Total 7.7 g/dL (6.4-8.2); Sodium Level 135 mmol/L (136-145)
[2022-11-12 09:37] LABS: Lactic Acid 1.5 mmol/L (0.4-1.9)
[2022-11-12] MEDS: Dextrose 10%-Water 250 ML IV (10:39)
[2022-11-12 11:42] VITALS: BP 142/69; PULSE 92; RESP 15; O2SAT 97
[2022-11-12] MEDS: HYDROmorphone 0.5 MG/0.5 ML SYRINGE IV (12:51)
--- NOTE | 2022-11-12 13:56 | PCM.HP.STD ---
HPI - General General Date of Admission: 11/12/22 Date of Service: 11/12/22 Chief Complaint: Abdominal pain for last 3 days. Nauseous but no vomiting. HPI Narrative RAJENDRA HOFFMAN, is a 62 M with history of chronic recurrent abdominal pain mainly in epigastric region came to ER for severe episode of abdominal pain gradually worsening for last 3 days. He feels over epigastric region and also on the left lateral abdomen. He states he took 2 tablets of Percocet yesterday night and then in the morning but still did not get better. He states he has a history of superior mesenteric artery syndrome and a stent in both celiac artery superior mesenteric artery about 7 years ago in [facility]. He follows Dr. Medina the last clinic visit on 10/16/2022. He had multiple CT scan imaging and EGD. There was also differential diagnosis of acute intermittent porphyria. 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 He was ordered FibroScan and blood test to rule out liver fibrosis. He was last admitted in third week of September 2022 and was discharged after 1 day.His last EGD in August 2022 reported Marylu-Najera tear clip was placed. Erythematous mucosa in gastric body, mild duodenitis and acquired duodenal stenosis and narrowing with the stenosis in third part of duodenum possibly secondary to superior mesenteric artery syndrome. In ED, patient had CTA abdomen and pelvis which reported findings consistent with waxing and waning distention of duodenum possibly to partial malrotation or superior mesenteric artery syndrome. Status post cholecystectomy. Patient is further admitted for pain control. Family history: Patient stated her mom was also having similar kind of abdominal pain when he was growing up but she was never definitely diagnosed for the cause. ON LICENSE OF [facility] Medical History Arthritis Celiac artery stenosis Difficulty chewing Difficulty swallowing Gastric reflux High cholesterol History of diverticulitis History of GI bleed History of IBS History of steroid therapy History of ulceration Injury of head and neck Kidney stones Mesenteric artery stenosis Mesenteric ischemia, chronic Migraine headache Smoker Superior mesenteric artery syndrome Wears glasses Home Medications clopidogrel 75 mg tablet 75 mg PO QHS anti platelet 09/23/16 [History Last Taken 08/22/22] rosuvastatin 10 mg tablet 10 mg PO QHS cholesterol 06/08/18 [History Last Taken 08/22/22] aspirin 81 mg tablet 81 mg PO DAILY [facility] 07/20/22 [History Last Taken 08/23/22] pantoprazole 40 mg tablet,delayed release (Protonix) 20 mg PO QHS acid reflux 07/20/22 [History Last Taken 08/22/22] ondansetron 4 mg disintegrating tablet 4 mg PO Q8H PRN PRN Nausea #10 tabs 08/24/22 [Rx Last Taken Unknown] oxycodone-acetaminophen 5 mg-325 mg tablet (Percocet) 1 tab PO Q8H PRN pain 3 days #10 tabs 08/24/22 [Rx Last Taken Unknown] cholestyramine-aspartame 4 gram oral powder (Cholestyramine Light) 4 g PO DAILY #201.6 grams 09/06/22 [Rx Last Taken Unknown] aspirin 81 mg tablet,delayed release 81 mg PO DAILY [facility] 11/12/22 [History Last Taken 11/11/22] nknvryb-cmvkrgdkwc-VDM-caffeine 30 mg-50 mg-325 mg-40 mg capsule 1 cap PO Q6H PRN MIGRAINE 11/12/22 [History Last Taken Unknown] hydromorphone 4 mg tablet 4 mg PO Q6H PRN PAIN 11/12/22 [History Last Taken 11/11/22] pantoprazole 20 mg tablet,delayed release 20 mg PO DAILY ACID REFLUX 11/12/22 [History Last Taken 11/11/22] Allergy/AdvReac Type Severity Reaction Status Date / Time omeprazole AdvReac Other Verified 10/09/22 15:30 Family History Father Colon cancer Mother COPD (chronic obstructive pulmonary disease) Lung cancer Concurrent tobacco use history. Surgical History History of cholecystectomy History of esophagogastroduodenoscopy (EGD) Hx of cervical spine surgery Hx of colonoscopy Hx of surgical procedure Social History household members: spouse Smoking Status: Current every day smoker tobacco type: cigarettes how long ago did patient quit smoking: Cut back over 2-3 weeks, down to 3 cig/day 10/09/22. alcohol intake: current alcohol intake frequency: a few times a month details: occasional use substance use type: does not use ROS ROS Narrative Constitutional: Reports severe intermittent abdominal pain as described in HPI. No fever HEENT: Reports systems reviewed and no addt'l complaints, except as documented Respiratory/Chest: No acute shortness of breath or respiratory distress or wheezing. CVS: No chest pain pressure tightness. Denies history of coronary artery disease or peripheral arterial disease. Denies claudication pain or rest pain in lower extremities. Gastrointestinal: Mild nausea. hard formed stool for last 2 days but no blood or mucus. Denies coffee ground emesis, hematemesis or vomiting Genitourinary: Denies burning urination or new urinary tract symptoms Musculoskeletal: Denies acute joint pain or limited range of motion. No acute injury Neurologic: Denies seizure-like symptoms. No stroke. skin: No ulcer. No rash Endocrinology: Reports systems reviewed and no addt'l complaints, except as documented Hematologic/Lymphatic: Reports systems reviewed and no addt'l complaints, except as documented Rest 14 ROS are negative except as mentioned in HPI Vital Signs Vital Signs Vital Signs: 11/12/22 08:34 11/12/22 11:42 Temperature 96.2 F L Temperature Source Temporal Pulse Rate 55 L 92 Respiratory Rate 18 15 Blood Pressure 111/71 142/69 H Blood Pressure Mean 84 93 Pulse Ox 98 97 Oxygen Delivery Method Room Air Room Air Weight Weight: 110 lb Body Mass Index (BMI) 15.7 Physical Exam Narrative General: Alert, Oriented x3, Cooperative HEENT: Atraumatic, PERRLA, EOMI, Normocephalic Oral: Oral mucosa moist. No Gingival or Mucosal Lesions/ Ulcerations Neck: Supple, No JVD, Negative Carotid Bruits Lungs: Air entry diminished in bilateral lung bases. No crepitation/rhonchi Cardiovascular: Regular rate, Regular Rhythm, Normal S1, Normal S2, No murmurs Abdomen: Bowel Sounds Present, mild tenderness present over epigastric and left lateral abdomen. No rebound tenderness. No peritoneal signs, rigidity. No palpable mass. Had lap chano in the past. : Urine clear. No renal angle tenderness. No suprapubic tenderness. Extremities: No edema, Capillary Refill Less than 3 Seconds Skin: No rashes, No breakdown Musculoskeletal: No Tenderness to Palpation of Joints or Extremities. Very active no acute bony joint pain or arthritis. Neurological: Cranial nerves II-XII grossly intact, DTR 2+/4 and Symmetrical, Neuro grossly intact Psych/Mental Status: flat affect. Mildly impulsive with making decision. Results Lab / Micro Data Result Diagrams: 11/12/22 09:07 11/12/22 09:07 Labs: Laboratory Results - last 24 hr 11/12/22 09:07: WBC 8.2, RBC 5.27, Hgb 16.3, Hct 47.0, MCV 89.2, MCH 30.9, MCHC 34.7, RDW Std Deviation 45.8 H, RDW Coeff of Rashida 14.0, Plt Count 214, MPV 12.7 H, Immature Gran % (Auto) 0.400, Neut % (Auto) 71.8 H, Lymph % (Auto) 17.1 L, [place] % (Auto) 9.1, Eos % (Auto) 0.9, Baso % (Auto) 0.7, Absolute Neuts (auto) 5.9, Absolute Lymphs (auto) 1.40, Nucleated RBC % 0 11/12/22 09:07: Sodium 135 L, Potassium 4.1, Chloride 106, Carbon Dioxide 21.0, Anion Gap 8, BUN 15, Creatinine 1.15, Estim Creat Clear Calc 47.61, Est GFR (MDRD) Af Amer 83, Est GFR (MDRD) Non-Af 69, BUN/Creatinine Ratio 13.0, Glucose 103, Calcium 9.5, Total Bilirubin 0.60, Direct Bilirubin 0.13, AST 23, ALT 22, Alkaline Phosphatase 132 H, Total Protein 7.7, Albumin 4.2, Globulin 3.5, Lipase 22 11/12/22 09:07: Lactic Acid 1.5 Radiology Impression Abdomen/Pelvis CTA 11/12/22 09:01 IMPRESSION: Findings are consistent with ongoing waxing and waning distention of the duodenum possibly due to a partial malrotation phenomenon and/or superior mesenteric artery syndrome with a distended appearance proximal duodenum up to 3.2 cm with an air-fluid level and a narrowed appearance of the mid second and third part of the duodenum. There is also mild wall thickening of the small bowel which may represent mild enteritis. There is also a thickened appearance of the descending colon and sigmoid suspicious for mild colitis. Overall pattern consider possible mild enterocolitis. Recommend consideration for follow-up study which could include upper GI small bowel follow-through. Status post cholecystectomy. Normal caliber of the aorta. Patent stents within the celiac and superior mesenteric artery. 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 Hepatic steatosis. Electronically Signed: Ritika Pavon MD at 10:54 EDT , Assessment & Plan Assessment/Plan (1) Abdominal pain: PLAN: Plan RAJENDRA HOFFMAN, is a 62 M with history of chronic recurrent abdominal pain mainly in epigastric region came to ER for severe episode of abdominal pain gradually worsening for last 3 days. In ED, patient had CTA abdomen and pelvis which reported findings consistent with waxing and waning distention of duodenum possibly to partial malrotation or superior mesenteric artery syndrome. Status post cholecystectomy. Patient is further admitted for pain control. 1. Acute on recurrent chronic abdominal pain, exact etiology unclear possible differential intermittent distention of duodenum due to superior mesenteric syndrome. Patient impulsive and making decision to stay or discharge from ED but finally she decided to get admitted. Admitted in observation on MS floor. IV fluid Ringer lactate, pain control with Dilaudid and Tylenol. Protonix 40 mg IV ordered. GI consult. Patient stated last time his pain was relieved with D10 therefore ED physician ordered D10 Labs reviewed. Patient does not have leukocytosis. Serum sodium 135. Liver chemistry shows elevated alkaline phosphatase 132. Lactic acid and magnesium normal. Lipase normal. 2. 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 He had a stent on celiac artery and SMA and both are patent as per CTA. Normal caliber of aorta. Stable atherosclerotic disease in bilateral MARSHALL. Patient had last EGD in August 2022 reported Marylu-Najera tear clip was placed. Erythematous mucosa in gastric body, mild duodenitis and acquired duodenal stenosis and narrowing with the stenosis in third part of duodenum possibly secondary to superior mesenteric artery syndrome. Patient is also undergoing work-up for acute intermittent porphyria as an outpatient. Denies atherosclerotic disease in other vascular beds including carotid stenosis, stroke, coronary artery disease or peripheral arterial disease. 3. Other chronic comorbidities including GERD, suspected COPD with patient actively smoking, anxiety and depression and chronic severe malnutrition: Patient BMI is 15.8 kg/m?. Patient advised quitting smoking. He cut back on his smoking 3 cigarettes since October 09 2022. Drinks few times alcohol in 1 month. 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 Follow-up in pulmonary clinic for suspected COPD. Living will/advanced directive/end of life care: Patient does have living will or advanced directive. Healthcare power of ip attorney is his . After discussion of benefits/risks procedures involved with full code, DNR CC arrest and DNR CC, the patient opted for full code. Patient does want artificial life support including intubation, tube feed, ventilator and/chest compression, central venous catheter, vasopressor and DC shock if needed Total time spent in [id number] encounter in discussion of advanced directive 17 minutes. Laboratory Results 11/12/22 09:07: WBC 8.2, RBC 5.27, Hgb 16.3, Hct 47.0, MCV 89.2, MCH 30.9, MCHC 34.7, RDW Std Deviation 45.8 H, RDW Coeff of Rashida 14.0, Plt Count 214, MPV 12.7 H, Immature Gran % (Auto) 0.400, Neut % (Auto) 71.8 H, Lymph % (Auto) 17.1 L, [place] % (Auto) 9.1, Eos % (Auto) 0.9, Baso % (Auto) 0.7, Absolute Neuts (auto) 5.9, Absolute Lymphs (auto) 1.40, Nucleated RBC % 0 11/12/22 09:07: Sodium 135 L, Potassium 4.1, Chloride 106, Carbon Dioxide 21.0, Anion Gap 8, BUN 15, Creatinine 1.15, Estim Creat Clear Calc 47.61, Est GFR (MDRD) Af Amer 83, Est GFR (MDRD) Non-Af 69, BUN/Creatinine Ratio 13.0, Glucose 103, Calcium 9.5, Total Bilirubin 0.60, Direct Bilirubin 0.13, AST 23, ALT 22, Alkaline Phosphatase 132 H, Total Protein 7.7, Albumin 4.2, Globulin 3.5, Lipase 22 11/12/22 09:07: Lactic Acid 1.5 11/12/22 09:07: Magnesium 2.2 Charges/Coding Visit Charges Inpatient E&M: 68327 Init Hosp L3 Procedures Hospitalists Procedures: 37226 Advncd Care Plan 30 Min
[2022-11-12 14:14] LABS: Magnesium 2.2 mg/dL (1.6-2.6)
[2022-11-12 14:43] VITALS: BP 142/69; PULSE 92; RESP 16; TEMP 35.7; O2SAT 97
[2022-11-12 15:03] VITALS: BMI 15.7
[2022-11-12 15:19] VITALS: BP 107/70; PULSE 70; RESP 18; TEMP 36.9; O2SAT 98
[2022-11-12] MEDS: HYDROmorphone 1 MG/ML Syringe IV ×2 (15:47→20:07)
[2022-11-12] MEDS: Lactated Ringers 1,000 ML 100 ML IV (15:54)
--- NOTE | 2022-11-12 16:11 | CPS ---
Pt refused I.S. & PEP, doesn't understand why they would be ordered because he is just here for observation. RN aware.
--- NOTE | 2022-11-12 18:15 | NURSING ---
pt states that he hasn't slept in about only 2 hours in the last two days. pt states that at home he usually takes a few puffs of marijuana at bedtime to help him sleep. informed pt that is not available here. pt states that no other options help.
[2022-11-12 19:42] VITALS: BP 137/86; PULSE 60; RESP 16; TEMP 36.8; O2SAT 100
[2022-11-13] MEDS: HYDROmorphone 1 MG/ML Syringe IV ×3 (00:33→13:56)
[2022-11-13] MEDS: Lactated Ringers 1,000 ML 100 ML IV (00:49)
[2022-11-13 05:32] VITALS: BP 112/62; PULSE 56; RESP 14; TEMP 36.7; O2SAT 96
[2022-11-13 06:50] LABS: Absolute Lymphocyte Count 1.61 X10^3/uL (0.83-4.51); Absolute Neutrophil Count 3.2 X10^3/uL (2.0-7.7); Basophil# 0.05 X10^3/uL; Basophil% 0.9 % (0-1); Eosinophil# 0.15 X10^3/uL; Eosinophils% 2.7 % (0-5); Hematocrit 41.1 % (40-54); Lymphocyte # 1.61 X10^3/ul (0.83-4.51); Lymphocyte % 28.4 % (19-41); Mean Corp Hgb Conc 34.1 g/dL (32-36); Mean Corpuscular Hgb 30.9 pg (27.0-32.0); Mean Corpuscular Volume 90.7 fL (80-94); Monocyte# 0.65 X10^3/uL; Monocyte% 11.5 % (0-10); NRBC Flagged by Analyzer 0 % (0-5); Neutrophil # 3.19 X10^3/uL (2.7-7.7); Neutrophil % 56.3 % (47-70); Platelet Count 174 K/mm3 (150-450); RBC Distribution Width SD 47.3 fl (35.1-43.9); Red Blood Count 4.53 M/mm3 (4.6-6.2); White Blood Count 5.7 K/mm3 (4.4-11.0)
[2022-11-13 07:27] LABS: Anion Gap 7 (5-15); BUN 11 mg/dL (7-18); BUN/Creat Ratio 11.1 RATIO (10-20); Calcium,Total 8.5 mg/dL (8.5-10.1); Chloride 108 mmol/L (98-107); Creatinine, Serum 0.99 mg/dL (0.70-1.30); EST Glomerular Filtration Rate 81 mL/min (>60); Est Glom Filt Rate - Afr Amer 99 mL/min (>60); Estimated Creatinine Clearance 55.39 ml/min; Glucose 87 mg/dL (74-106); Potassium 3.7 mmol/L (3.5-5.1); Sodium Level 140 mmol/L (136-145)
[2022-11-13 08:15] VITALS: BP 112/78; PULSE 71; RESP 18; TEMP 36.9; O2SAT 99
--- NOTE | 2022-11-13 08:43 | CASEMGMT ---
Social Work SW reviewed patient's chart, HCPOA and LW documents on file from 2015. HCPOA is Estrella Leal, no alternates named. Evelyn Payne MSW, DONALDO
[2022-11-13] MEDS: 0.9% Saline Lock 10 ML Syringe IV ×2 (09:32→13:57)
[2022-11-13] MEDS: Ondansetron 4 MG/2 ML Vial IV (09:32)
[2022-11-13] MEDS: Enoxaparin 40 MG/0.4 ML Syringe SC (09:34)
[2022-11-13] MEDS: Pantoprazole Sodium 40 MG Tablet PO (09:34)
[2022-11-13 14:30] VITALS: BP 122/76; PULSE 68; RESP 18; TEMP 36.8; O2SAT 99
--- NOTE | 2022-11-13 17:04 | DCINST_ITS ---
Discharge Instructions Diet Discharge Diet: No restrictions Activity Discharge Activity: Return to Normal Activity Weight Bearing Status: Full weight bearing Follow Up Care Test Results: Test results from this visit will be discussed in further detail at your follow- up appointment, if applicable. Discharge Plan Admission Admit Date/Time: 11/12/22 13:48 Primary Reason for Your Visit: abdominal pain Attending Provider: Pierre Jefferson Primary Care Provider: Richard Dai Consulting Providers: Popeye Camarena Instructions Additional Instructions / Restrictions: Call Dr. Medina's office to arrange to see a surgeon regarding possible surgical intervention If you have severe abdominal pain, would recommend you go to a tertiary facility in case you require surgery-recommend going to a larger hospital Discharge Orders/Prescriptions Prescriptions: New hyoscyamine sulfate [Levsin] 0.125 mg tablet 0.125 mg PO Q6H PRN (Reason: abdominal discomfort) Qty: 20 0RF Rx Instructions: one or two tabs every six hours as needed for abdominal pain Continued clopidogrel 75 MG tablet 75 mg PO QHS Hold Instructions: hold for five days, then resume rosuvastatin 10 MG tablet 10 mg PO QHS aspirin 81 mg Tablet,Delayed Release (Dr/Ec) 81 mg PO DAILY pantoprazole 20 mg tablet,delayed release (DR/EC) 20 mg PO DAILY [id number] mg capsule 1 cap PO Q6H PRN (Reason: MIGRAINE ) hydromorphone 4 mg tablet 4 mg PO Q6H PRN (Reason: PAIN ) oxycodone-acetaminophen [Percocet] 5-325 mg tablet 1 tab PO Q8H PRN (Reason: PAIN ) Referrals / Follow Up: Kory Medina DO [Med Staff - Active Staff] - See Referral Note (call for follow up appointment) Richard Dai MD [Primary Care Provider] - Within 2 Weeks Disposition Disposition (needs filled in before D/C Order can be placed): Home, Self Care
--- NOTE | 2022-11-13 17:17 | DS.PCM_ITS ---
Providers Date of Admission: 11/12/22 Date of Discharge: 11/13/22 Primary Care Physician: Dr. Richard Dai MD Consultations 11/12/22 14:54 Consult: Gastroenterology Routine Consulting Provider: Alan Gastroenterbrenden Reason for Consult: acute on recurrent abd pain EMERGENT Consult: No MD Notified: Yes Date Notified: 11/12/22 Time Notified: 14:48 Method of Notification: ED Physician Initiated Reason For Visit: ABDOMINAL PAIN Diagnosis Discharge Diagnosis (1) Abdominal pain: Status: Acute Code(s): R10.9 - Unspecified abdominal pain Plan 1. 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 #4 hyperlipidemia Medications at Discharge Home Medications clopidogrel 75 mg tablet 75 mg PO QHS BLOOD THINNER 09/23/16 rosuvastatin 10 mg tablet 10 mg PO QHS CHOLESTEROL 06/08/18 aspirin 81 mg tablet,delayed release 81 mg PO DAILY HEART HEALTH 11/12/22 ixiwthp-wsqsvoxpbf-VCP-caffeine 30 mg-50 mg-325 mg-40 mg capsule 1 cap PO Q6H PRN MIGRAINE 11/12/22 hydromorphone 4 mg tablet 4 mg PO Q6H PRN PAIN 11/12/22 oxycodone-acetaminophen 5 mg-325 mg tablet (Percocet) 1 tab PO Q8H PRN PAIN 11/12/22 pantoprazole 20 mg tablet,delayed release 20 mg PO DAILY ACID REFLUX 11/12/22 hyoscyamine sulfate 0.125 mg tablet (Levsin) 0.125 mg PO Q6H PRN abdominal discomfort #90 tabs 11/14/22 Hospital Course Operations None Procedures None Summary of Care Provided Minutes Spent on Discharge: 31 Hospital Course: This 62-year-old white male was seen in the emergency room at [facility] with chief complaint of recurrent chronic abdominal pain, he has had a long history (years) of chronic abdominal pain, he has been to many pain specialists and salesforce specialist, his current salesforce specialist recommended that the patient be referred to a surgeon at a tertiary facility for evaluation for surgical intervention for possible superior mesenteric artery syndrome, patient had not followed up with this. Patient is on chronic pain medications for degenerative joint disease of the cervical spine, his family practice physician however will not write for anything stronger than oxycodone. Patient had a CTA of his abdomen and pelvis in the emergency room which showed mild wall thickening of the small bowel which may represent mild enteritis, there is also thickened appearance of the descending colon and sigmoid suspicious for mild colitis, there is also noted to be a distended appearance of the proximal d uodenum and a narrowed appearance of the mid second and third part of the duodenum. This CTA was reviewed by gastroenterology however they did not agree with the findings and felt that the patient had no acute process. Patient was placed into observation status on MedSurg 3, he was given IV pain m edications, his pain waxed and waned during his hospital stay. I had a long discussion with the patient concerning his need to follow-up concerning going to a surgeon for an opinion as to whether surgery would be beneficial to him. On 11/13/2022, patient was seen and examined: On examination he appeared in good health and spirits. Vital signs as documented. Skin warm and dry and without overt rashes. Neck without JVD, neck was supple, trachea midline, thyroid was normal. Lungs clear bilaterally, normal air movement was noted. Heart exam notable for regular rhythm, normal sounds and absence of murmurs, rubs or gallops. Abdomen unremarkable and without evidence of organomegaly, masses, or abdominal aortic enlargement. Bowel sounds are present, abdomen is not distended. Extremities nonedematous, no cyanosis was noted, no clubbing was noted. Neuro: Cranial nerves II through XII are grossly intact, no focal motor deficits were noted, sensation to light touch and pinprick intact, motor exam 5/5 throughout. Psych: Patient is alert and oriented x3, he does not appear anxious or depressed, he does not appear agitated. Patient appears stable for discharge on 11/13/2022, he was instructed to follow- up with gastroenterology and he was advised to go to a tertiary facility if he had recurrence of his severe abdominal pain due to the fact that he would need to be evaluated by a surgeon at a tertiary facility. Patient was placed on the Levsin at the time of discharge to see if this would help his abdominal pain, patient was argumentative at times with this examiner and made accusations at times. Medical Records Data Medical Nutrition Assessment Dietitian: Malnutrition Criteria Met Start: 11/13/22 14:01 Freq: Status: Active Protocol: Document 11/13/22 14:01 LO (Rec: 11/13/22 14:01 [id number]) Nutrition Malnutrition Evidence of Malnutrition Exists Yes Malnutrition (severe): Chronic Evidenced By Weight Loss (Severe),Physical Changes (Moderate),Physical Changes (Severe) Clinical Problem Chronic Disease or Condition Related Malnutrition Etiology related to abdominal pain Signs/Symptoms 9.8lbs (8.1%) weight loss in 2 .5 months and moderate fat/ muscle loss to temporal and orbital regions, clavicle; BMI 13.2kg/m2 Status Active Problem Unintended Weight Loss Etiology related to abdominal pain Signs/Symptoms as evidenced by 9.8lbs (8.1%) weight loss in 2.5 months. Status Inactive Problem Recommendation Dietitian Recommendations/Changes ADAT to Regular diet to optimize oral intakes. Continue Ensure Clear while on Clear Liquid diet to provide supplemental energy. Once diet advances, recommend 120mL Ensure Plus High Protein 4x with medpass to provide supplemental energy. Weight / BMI Weight Weight: 49.98 kg Body Mass Index (BMI) 15.7 ABG / Lab / Microbiology Data Result Diagrams: 11/13/22 05:26 11/13/22 05:26 Laboratory: Laboratory Results - last 24 hr 11/13/22 05:26: WBC 5.7, RBC 4.53 L, Hgb 14.0, Hct 41.1, MCV 90.7, MCH 30.9, MCHC 34.1, RDW Std Deviation 47.3 H, RDW Coeff of Rashida 14.0, Plt Count 174, MPV 13.0 H, Immature Gran % (Auto) 0.200, Neut % (Auto) 56.3, Lymph % (Auto) 28.4, [place] % (Auto) 11.5 H, Eos % (Auto) 2.7, Baso % (Auto) 0.9, Absolute Neuts (auto) 3.2, Absolute Lymphs (auto) 1.61, Nucleated RBC % 0 11/13/22 05:26: Sodium 140, Potassium 3.7, Chloride 108 H, Carbon Dioxide 25.0, Anion Gap 7, BUN 11, Creatinine 0.99, Estim Creat Clear Calc 55.39, Est GFR (MDRD) Af Amer 99, Est GFR (MDRD) Non-Af 81, BUN/Creatinine Ratio 11.1, Glucose 87, Calcium 8.5 D/C Instructions Discharge Diet: No restrictions Weight Bearing Status: Full weight bearing Meaningful Use Info Meaningful Use Diagnoses (Choose all that apply): None applicable Discharge Plan Admission Admit Date/Time: 11/12/22 13:48 Primary Reason for Your Visit: abdominal pain Attending Provider: Pierre Jefferson Primary Care Provider: Richard Dai Consulting Providers: Popeye Camarena Instructions Additional Instructions / Restrictions: Call Dr. Medina's office to arrange to see a surgeon regarding possible surgical intervention If you have severe abdominal pain, would recommend you go to a tertiary facility in case you require surgery-recommend going to a larger hospital Discharge Orders/Prescriptions Prescriptions: Continued clopidogrel 75 MG tablet 75 mg PO QHS Hold Instructions: hold for five days, then resume rosuvastatin 10 MG tablet 10 mg PO QHS aspirin 81 mg Tablet,Delayed Release (Dr/Ec) 81 mg PO DAILY pantoprazole 20 mg tablet,delayed release (DR/EC) 20 mg PO DAILY ztubppi-sxigpxdlic-BJK-caff [id number] mg capsule 1 cap PO Q6H PRN (Reason: MIGRAINE ) hydromorphone 4 mg tablet 4 mg PO Q6H PRN (Reason: PAIN ) oxycodone-acetaminophen [Percocet] 5-325 mg tablet 1 tab PO Q8H PRN (Reason: PAIN ) No Action hyoscyamine sulfate [Levsin] 0.125 mg tablet 0.125 mg PO Q6H PRN (Reason: abdominal discomfort) Qty: 90 2RF Rx Instructions: one or two tabs every six hours as needed for abdominal pain Referrals / Follow Up: Kory Medina DO [Med Staff - Active Staff] - See Referral Note (call for follow up appointment) Richard Dai MD [Primary Care Provider] - Within 2 Weeks Disposition Disposition (needs filled in before D/C Order can be placed): Home, Self Care Charges/Coding Visit Charges Inpatient E&M: 62255 Disch Hosp >30min
[2022-11-13] MEDS: Hyoscyamine Sulfate 0.125 MG Tablet 0.25 MG PO (17:29)
== END 2022-11-13 17:43 | disposition home or self-care (01) ==
LOC: ED 13:42 → MS3 14:04
PROVIDERS: Admitting Provider Internal Medicine; Emergency Provider Emergency Medicine; PCP Family Medicine; Visit Provider Internal Medicine
DX: G89.29 Other chronic pain (principal); E43 Unspecified severe protein-calorie malnutrition; Z90.49 Acquired absence of other specified parts of digestive tract; Z79.82 Long term (current) use of aspirin; Z79.02 Long term (current) use of antithrombotics/antiplatelets; M47.812 Spondylosis without myelopathy or radiculopathy, cervical region; E78.00 Pure hypercholesterolemia, unspecified; F17.210 Nicotine dependence, cigarettes, uncomplicated; Z79.899 Other long term (current) drug therapy; Z80.0 Family history of malignant neoplasm of digestive organs; M19.90 Unspecified osteoarthritis, unspecified site; K21.9 Gastro-esophageal reflux disease without esophagitis; R13.10 Dysphagia, unspecified; Z87.19 Personal history of other diseases of the digestive system; R11.0 Nausea; Z68.1 Body mass index [BMI] 19.9 or less, adult
CPT/HCPCS: 36415; 74174; 80048; 80076; 83605; 83690; 83735; 85025; 96361; 96365; 96372; 96375; 96376; 97802; 99221; 99284; J7030; J7120; Q9967; A4216; G0378; J2405

== ENCOUNTER → 2022-12-20 | Outpatient (CLI) | payer OTHER, SELFPAY ==
--- NOTE | 2022-12-20 10:05 | RAD_ITS ---
EXAMINATION: Air contrast UPPER GI SERIES INDICATION: Male, 62 years epigastric pain. FLUOROSCOPY TIME (if supplied): (0:49) minutes/seconds. 18 images were obtained. TECHNIQUE: Radiographic and fluoroscopic images of the distal esophagus, stomach, and proximal small intestine were obtained following the oral ingestion of barium. COMPARISON: Comparison is made with prior study dated April 17, 2022. FINDINGS: There is no evidence for organomegaly, abnormal calcifications, or abnormal bowel gas pattern. The psoas margins and flank stripes are normal. The visualized osseous structures are normal. The mucosa of the esophagus, stomach and duodenum is normal in appearance without evidence for stricture, ulceration, mass or diverticulum. There is no evidence for hiatal hernia or gastroesophageal reflux. The stomach and duodenum are unremarkable. No evidence of ulceration. No mass lesion is seen. Stents are seen in the left upper quadrant. RAD/Upper GI Dual Contrast IMPRESSION: 1. Normal air-contrast upper gastrointestinal study. Electronically Signed: Ramon Miranda MD at 13:39 EDT ,
== END | disposition home or self-care (01) ==
LOC: RAD 09:50
PROVIDERS: PCP Family Medicine; Referring Provider Surgery; Visit Provider Surgery
DX: R10.13 Epigastric pain (principal)
CPT/HCPCS: 74246

== ENCOUNTER 2023-01-08 07:05 | Day surgery (SDC) | payer OTHER, SELFPAY ==
[2023-01-08] VITALS (9 sets, daily range): BP systolic 82–125; BP diastolic 57–95; PULSE 49–75; RESP 16–18; TEMP 36.1–36.6; O2SAT 100; BMI 15.9
--- NOTE | 2023-01-08 07:21 | PCM.HP.BLA ---
History and Physical Date of Admission: 01/08/23 Reason for Consultation: Abdominal pain HPI Narrative: RAJENDRA HOFFMAN, is a 62 M who presented to the emergency department at [facility] on 08/24/2022 with a chief complaint of abdominal pain and intractable nausea vomiting.? He was in the emergency department at outside hospital in [place] yesterday per his report the lab work was unremarkable and the initial CT scan with contrast was read as normal but per documentation the radiologist called back later stating that he did have evidence of colitis and they attempted to contact the patient but were unable to get a hold of him. ?Rajendra established with [facility] GI clinic 08.15.21 to establish care for GERD, abdominal pain, diverticulosis. He has been seen by several gastroenterologists, most recently with [facility]. His severe abdominal pain began 2006, US of abdomen found material in gallbladder and he underwent cholecystectomy. Following this he began having diarrhea with urgency. Abdominal pain, diarrhea, dark urine and white stools in prompted ED visit. ERCP performed removing choledocholithiasis. Lack of symptom improvement prompted CTA finding celiac and mesenteric occlusion; coupled with diarrhea, abdominal pain, nausea, vomiting he was transferred to specialty care where stents were placed. Had a similar episode four months later and another vascular stent was placed. Two additional episodes with stents placed, most recently ; currently two stents placed in celiac and two stents placed in mesenteric artery. EGD colonoscopy with F for coffee ground emesis. EGD found patchy and streaky erythema; hiatal hernia with patchy erythema; bilious staining with streaky erythema and shallow erosions in GE junction and possibly in esophagus. Biopsy indicative of possible early celiac disease. Colonoscopy found two tubular adenoma polyps and elevated CEA level and is established with [facility] oncology. There is a strong family history of cancer. His father passed from colon cancer and he has been having routine colonoscopies for several years. CTA 04.20.19 finding nonspecific colitis; thickening of urinary bladder; possible gastritis; possible urinary cystitis; common bile duct and mild intrahepatic ductal dilation. Colonoscopy last performed 01.29.21 with tubular adenoma polyps removed. CTA 06.22.21 as part of [facility] ED workup found patent celiac and mesenteric artery stents without occlusion or significant stenosis. Remaining study unremarkable for stenosis, dilation, mass or nodules. Following workup he was noted to be stable and discharged home. Presented to [facility] ED 09.12.21 with abdominal pain, coffee ground emesis and soft stools. Hemoglobin noted to be elevated likely secondary to mild dehydration and heavy smoking. Gastroenterology consulted same day and he was admitted for management of GIB. He was discharged 09.19.21. 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 CT abd/pel 09.12.21 found mild intrahepatic and CBD prominence, possibly r/t cholecystectomy; no CBD stone identified; stents noted in vasculature. CTA 09.13.21 found liver steatosis; evidence of colitis in transverse colon and left hemicolon; vascular stents noted and are patent; right common iliac artery calcified plaques causing moderate degree of obstruction. MRCP 09.18.21 with cholecystectomy changes noted. No acute or chronic findings. Last seen in clinic 08.15.21 with recommendation for EGD and colonoscopy, CT abd/pel, possible ursodiol in future. Weight loss likely r/t cigarettes. [facility] ED presentation 09.12.21 for worsening abdominal pain with emesis of black material with soft stools mixed with black. Gastroenterology consulted 09.12.21 for management of vomiting, weight loss and abdominal pain. EGD performed 09.12.21. He was discharged 09.12.21. 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 [facility] ED presentation 09.13.21 with continued abd pain and coffee ground emesis. Gastroenterology consulted 09.18.21. He was discharged 09.19.21. CTA abd/pel 09.13.21 finding known stents. Additional finding suggestive of colitis involving transverse and descending colons. Colonoscopy 10.11.21 finding hemorrhoids; diverticulosis RS colon, sigmoid colon, descending colon; four 1-2mm tubular adenoma polyps, tattooed; congested mucosa of terminal ileum. [facility] Medical History Arthritis Back pain Celiac artery stenosis Coagulopathy Difficulty chewing Difficulty swallowing Excessive bleeding Gastric reflux GI bleed High cholesterol History of diverticulitis History of GI bleed History of IBS History of steroid therapy History of stress test History of ulceration Injury of head and neck Kidney stones Mesenteric artery stenosis Migraine headache Migraines Smoker Smoker Ulcer Wears glasses Home Medications clopidogrel 75 mg tablet 75 mg PO QHS anti platelet 09/23/16 [History Last Taken 08/22/22] rosuvastatin 10 mg tablet 10 mg PO QHS cholesterol 06/08/18 [History Last Taken 08/22/22] aspirin 81 mg tablet 81 mg PO DAILY heart health 07/20/22 [History Last Taken 08/23/22] pantoprazole 40 mg tablet,delayed release (Protonix) 20 mg PO QHS acid reflux 07/20/22 [History Last Taken 08/22/22] ondansetron 4 mg disintegrating tablet 4 mg PO Q8H PRN PRN Nausea #10 tabs 08/24/22 [Rx Last Taken Unknown] oxycodone-acetaminophen 5 mg-325 mg tablet (Percocet) 1 tab PO Q8H PRN pain 3 days #10 tabs 08/24/22 [Rx Last Taken Unknown] Allergy/AdvReac Type Severity Reaction Status Date / Time omeprazole AdvReac Other Verified 08/24/22 14:47 Family History Father Colon cancerMother No cardiac disease Surgical History History of cholecystectomy History of esophagogastroduodenoscopy (EGD) Hx of cervical spine surgery Hx of colonoscopy Hx of surgical procedure Social History Smoking Status: Current every day smoker tobacco type: cigarettes alcohol intake: current details: occasional use substance use type: does not use ROS Constitutional Constitutional: Reports anorexia; Denies change in weight, chills, fatigue, fever(s), malaise, night sweats, weakness or other Eyes Eyes: Denies blurry vision, change in eye color, change in vision, discharge from eye(s), double vision, erythema, eye pain, loss of vision or other ENT HEENT: Denies abnormal hearing, dysphagia, ear pain, epistaxis, headache(s), hearing loss, nasal congestion, nasal discharge, post nasal drip, sinus pressure, sore throat or other Cardiovascular Cardiovascular: Denies chest pain, claudication, dyspnea on exertion, edema, lightheadedness, orthopnea, palpitations, paroxysmal nocturnal dyspnea, rapid heart rate, syncope or other Respiratory/Chest Respiratory/Chest: Denies cough, dyspnea, excessive phlegm production, hemoptysis, productive cough, shortness of breath at rest, shortness of breath with exertion, wheezing or other Gastrointestinal Gastrointestinal: Reports abdominal pain, nausea and vomiting; Denies coffee ground emesis, constipation, diarrhea, dyspepsia, hematemesis, hematochezia, loose stools, melena or other Genitourinary Genitourinary: Denies burning urination, difficulty urinating, dysuria, hematuria, nocturia, urinary frequency, urinary hesitancy, urinary incontinence, urinary urgency or other Musculoskeletal Musculoskeletal: Denies arthralgias, back pain, joint pain, joint stiffness, joint swelling, myalgias, neck pain or other Neurologic Neurologic: Denies abnormal gait, abnormal speech, confusion, disequilibrium, dizziness, focal weakness, headache(s), numbness, paresthesias, seizure-like activity, seizures, syncope, tingling, tremor(s) or other Psychiatric Psychiatric: Reports anxiety; Denies depression, homicidal ideation, suicidal ideation or other Endocrine Endocrinology: Denies change in body appearance, cold intolerance, excessive sweating, heat intolerance, polydipsia, polyuria or other Hematologic/Lymphatic Hematologic/Lymphatic: Denies anemia, easy bleeding, easy bruising, lymphadenopathy or other Allergic/Immunologic Allergic/Immunologic: Denies rhinitis, hives, eczemia, asthma or other Physical Exam Const alert, oriented x3 and no apparent distress General Appearance: cooperative HEENT normocephalic, head/scalp atraumatic and moist oral mucous membranes Eyes PERRL and EOMs intact bilaterally Neck no lymphadenopathy and supple Resp normal respiratory effort, normal air movement and clear to auscultation bilaterally Cardio regular rate, regular rhythm, S1 normal heart sound, S2 normal heart sound and no murmurs GI normal to inspection, nondistended, normoactive bowel sounds, soft to palpation, non-tender and non-distended Extremity normal capillary refill, no clubbing, cyanosis or edema and no calf tenderness Skin General Skin Exam: no breakdown Neuro CN's II-XII intact bilaterally, no focal motor deficits and no sensory deficits noted Motor Exam: strength 5/5 throughout Lab / Micro Data Result Diagrams: 08/26/22 04:57 08/26/22 04:57 Labs: Laboratory Results - last 24 hr 08/26/22 04:57: WBC 2.7 L, RBC 4.79, Hgb 14.5, Hct 42.0, MCV 87.7, MCH 30.3, MCHC 34.5, RDW Std Deviation 42.5, RDW Coeff of Rashida 13.2, Plt Count 106 L, MPV 12.6 H, Immature Gran % (Auto) 0.400, Neut % (Auto) 46.4 L, Lymph % (Auto) 31.5, [place] % (Auto) 21.0 H, Eos % (Auto) 0.0, Baso % (Auto) 0.7, Absolute Neuts (auto) 1.2 L, Absolute Lymphs (auto) 0.84, Nucleated RBC % 0 08/26/22 04:57: Sodium 136, Potassium 3.2 L, Chloride 101, Carbon Dioxide 28.0, Anion Gap 7, BUN 12, Creatinine 0.95, Estim Creat Clear Calc 62.87, Est GFR (MDRD) Af Amer 104, Est GFR (MDRD) Non-Af 86, BUN/Creatinine Ratio 12.7, Glucose 83, Calcium 8.2 L Assessment & Plan Assessment/Plan (1) Abdominal pain: PLAN: He is actually gained 5 pounds from being in the hospital. Even though he has not eaten anything. He can have clear liquids. I will perform an upper endoscopy on him tomorrow as a says his abdominal pain is consistent with when he previous had peptic ulcer disease. I told him that I will give him xanax for his anxiety, Questran for his bile gastritis, Levsin for his pain if he will stop smoking. (2) he will also need a screening colonoscopy during his visit. He was explained alternatives, risk, benefits including not withstanding bleeding, infection, sepsis, perforation, need for emergent surgery . He will have an ASA of 3.
[2023-01-08] MEDS: Lactated Ringers 1,000 ML 15 ML IV (07:37)
--- NOTE | 2023-01-08 08:30 | COLBX_PTH ---
PATIENT: RAJENDRA HOFFMAN LOC: EN U#:[id number] AGE/SX: 62/M ROOM: RE01/08/[address]: Dr. Kory Medina DO : 1960 BED: DIS: 01/08/2023 SPEC #: [id number] RECD: 01/08/23 14:27 STATUS: MAKAYLA JOSH #: [id number] HERNANDEZ: 01/08/23 08:[address]: Kory Medina DEPT: SURGICAL PATHOLOGY RECD BY: Justina James ENTERED: 01/09/23 10:12 SP TYPE: COLON BX TOMMY DR: Dr. Richard Dai MD Tissues: COLON BIOPSY Procedures: Surgery Specimen Level IV HEADER OPERATION: Colonoscopy (MAC) with biopsy PRE-OP DIAGNOSIS: Abdominal pain TISSUE SUBMITTED: Sigmoid colon biopsies MICROSCOPIC DIAGNOSIS Sigmoid colon, biopsy: No pathologic change. AM:ambrose 01/10/2023 MICROSCOPIC DESCRIPTION Slides are reviewed. GROSS DESCRIPTION Received in fixative is one container labeled with the patient's name and designated sigmoid colon biopsy. The specimen consists of two irregular fragments of light roemro soft tissue that in aggregate measure 0.6 x 0.4 x 0.1 cm. The specimen is totally submitted in one cassette. / SJ:ambrose 01/09/2023 TC:5 CPT: 61491
--- NOTE | 2023-01-08 09:07 | OP.CCLET_ITS ---
01/08/2023 Richard Dai Re : Colonoscopy procedure for Ministerio Dai This procedure was performed on Sunday, January 08, 2023. My impressions and recommendations are as follows: Impressions : - Congested mucosa in the sigmoid colon. Biopsied. - Diverticulosis in the recto-sigmoid colon, in the sigmoid colon and in the descending colon. - The examination was otherwise normal on direct and retroflexion views. Recommendations : - Discharge patient to home. - Resume previous diet. - Continue present medications. - Await pathology results. - Repeat colonoscopy in 5 years for surveillance. My findings are described in the full procedure note, which is enclosed. If I can be of further assistance, please feel free to contact me at . Sincerely, Kory Medina, 01/08/2023 9:06:33 AM This report has been signed electronically.
--- NOTE | 2023-01-08 09:07 | OP.COLON_ITS ---
Patient Name: Ministerio Leal Procedure Date: 01/08/2023 8:12 AM Date of : 1960 Age: 62 Procedure: Colonoscopy Indications: Hematochezia Providers: Kory Medina DO Referring MD: Kory Medina DO Medicines: Monitored Anesthesia Care Patient Profile: This is a 62 year old male. Refer to note in patient chart for documentation of history and physical. Last Colonoscopy: within the past 3 years. Complications: No immediate complications. Procedure: Pre-Anesthesia Assessment: - Prior to the procedure, a History and Physical was performed, and patient medications and allergies were reviewed. The patient is competent. The risks and benefits of the procedure and the sedation options and risks were discussed with the patient. All questions were answered and informed consent was obtained. Patient identification and proposed procedure were verified by the physician in the pre-procedure area. Mental Status Examination: alert and oriented. Airway Examination: normal oropharyngeal airway and neck mobility. Respiratory Examination: clear to auscultation. CV Examination: normal. Prophylactic Antibiotics: The patient does not require prophylactic antibiotics. Prior Anticoagulants: The patient has taken no previous anticoagulant or antiplatelet agents. ASA Grade Assessment: II - A patient with mild systemic disease. After reviewing the risks and benefits, the patient was deemed in satisfactory condition to undergo the procedure. The anesthesia plan was to use monitored anesthesia care (MAC). Immediately prior to administration of medications, the patient was re-assessed for adequacy to receive sedatives. The heart rate, respiratory rate, oxygen saturations, blood pressure, adequacy of pulmonary ventilation, and response to care were monitored throughout the procedure. The physical status of the patient was re-assessed after the procedure. After I obtained informed consent, the scope was passed under direct vision. Throughout the procedure, the patient's blood pressure, pulse, and oxygen saturations were monitored continuously. The Colonoscope was introduced through the anus and advanced to the terminal ileum. The colonoscopy was performed without difficulty. The patient tolerated the procedure well. The quality of the bowel preparation was adequate. Scope In: 8:27:17 AM Scope Withdrawal Time 0 hours 13 minutes 29 seconds Scope Out: 8:52:41 AM Total Procedure Duration Time 0 hours 25 minutes 24 seconds Findings: The perianal and digital rectal examinations were normal. An area of mildly congested mucosa was found in the sigmoid colon. Biopsies were taken with a cold forceps for histology. Verification of patient identification for the specimen was done. Estimated blood loss was minimal. Multiple small and large-mouthed diverticula were found in the recto-sigmoid colon, sigmoid colon and descending colon. There was also some mild colitis in the sigmoid colon and areas of tattooing that were seen from previous colonoscopy. There were no abnormalities around the tattoo site. The exam was otherwise without abnormality on direct and retroflexion views. Impression: - Congested mucosa in the sigmoid colon. Biopsied. - Diverticulosis in the recto-sigmoid colon, in the sigmoid colon and in the descending colon. - The examination was otherwise normal on direct and retroflexion views. Recommendation: - Discharge patient to home. - Resume previous diet. - Continue present medications. - Await pathology results. - Repeat colonoscopy in 5 years for surveillance. Procedure Code(s): --- Professional --- 98667, Colonoscopy, flexible; with biopsy, single or multiple CPT copyright 2017 [employer]. All rights reserved. The codes documented in this report are preliminary and upon shirt hemmer review may be revised to meet current compliance requirements. Kory Medina DO 01/08/2023 9:06:33 AM This report has been signed electronically. Number of Addenda: 0 Note Initiated On: 01/08/2023 8:12 AM
== END 2023-01-08 10:16 | disposition home or self-care (01) ==
LOC: EN 07:06 → AC 07:07
PROVIDERS: PCP Family Medicine; Referring Provider Family Medicine; Visit Provider Internal Medicine Gastroenterology
PROC: 0DJD8ZZ Inspection of Lower Intestinal Tract, Via Natural or Artificial Opening Endoscopic (ICD-10-PCS; CPT 45378; principal; 2023-01-08 08:25)
DX: K57.31 Diverticulosis of large intestine without perforation or abscess with bleeding (principal); K52.9 Noninfective gastroenteritis and colitis, unspecified; E78.00 Pure hypercholesterolemia, unspecified; R63.0 Anorexia; Z68.1 Body mass index [BMI] 19.9 or less, adult; F17.210 Nicotine dependence, cigarettes, uncomplicated; Z90.49 Acquired absence of other specified parts of digestive tract; Z79.82 Long term (current) use of aspirin; Z79.899 Other long term (current) drug therapy; Z80.0 Family history of malignant neoplasm of digestive organs
CPT/HCPCS: 45380; 88305; J7120; J2405

== ENCOUNTER 2023-04-14 08:41 | Emergency (ER) | payer OTHER, SELFPAY ==
[2023-04-14 08:42] VITALS: BP 157/131; PULSE 97; RESP 28; TEMP 36.6; O2SAT 100
--- NOTE | 2023-04-14 08:59 | ED.VIS.GI ---
HPI HPI - GI History of Present Illness Chief Complaint: Abd Pain Informant: patient Abdominal Pain/Flank Pain Onset: Hours (5-6) Narrative Narrative: Patient with severe right lower quadrant abdominal pain that started suddenly this morning around 4:30 AM. No nausea. Occasionally radiates into his right low back but for the most part nonradiating. States he had a nonhealing stomach ulcer had a gastric antrectomy for it back in December, this was at [facility]. Postoperative course according to outpatient records were complicated by delayed gastric emptying, diarrhea, pain. He states this does not feel related to that. Furthermore he had an EGD 6 days ago at [facility] and follow-up that looked normal like things were healing very well. [facility] Medical History (Updated 04/14/23 @ 13:[address] Moris Angela MD) Arthritis Celiac artery stenosis Difficulty swallowing High cholesterol History of diverticulitis History of GI bleed History of IBS History of stress test History of ulceration Injury of head and neck Liver failure Marijuana use Mesenteric artery stenosis Mesenteric ischemia, chronic Migraine headache Restless legs Smoker Superior mesenteric artery syndrome Wears glasses Home Medications clopidogrel 75 mg tablet 75 mg PO QHS BLOOD THINNER 09/23/16 [History Last Taken 01/04/23] rosuvastatin 10 mg tablet 10 mg PO QHS CHOLESTEROL 06/08/18 [History Last Taken 11/11/22] aspirin 81 mg tablet,delayed release 81 mg PO DAILY HEART HEALTH 11/12/22 [History Last Taken 01/04/23] pantoprazole 20 mg tablet,delayed release 20 mg PO QHS ACID REFLUX 11/12/22 [History Last Taken 11/11/22] dicyclomine 10 mg capsule 20 mg (2 x 10 mg) PO Q6H PRN PRN abdominal pain #20 CAPSULES 04/14/23 [Rx Last Taken Unknown] oxycodone-acetaminophen 5 mg-325 mg tablet 1 tab PO Q6H PRN PRN Pain 3 days #12 TABLETS 04/14/23 [Rx Last Taken Unknown] Allergy/AdvReac Type Severity Reaction Status Date / Time omeprazole AdvReac Other Verified 04/14/23 08:44 Family History Father Colon cancer Mother COPD (chronic obstructive pulmonary disease) Lung cancer Concurrent tobacco use history. Surgical History (Updated 04/14/23 @ 09:24 by Justine Tovar) History of cholecystectomy History of esophagogastroduodenoscopy (EGD) History of liver biopsy Hx of cervical spine surgery Hx of colonoscopy Hx of myringotomy Hx of resection of stomach Hx of surgical procedure Social History household members: spouse Smoking Status: Current every day smoker tobacco type: cigarettes how long ago did patient quit smoking: Cut back over 2-3 weeks, down to 3 cig/day 10/09/22. alcohol intake: current alcohol intake frequency: a few times a month details: occasional use substance use type: does not use ROS ROS ED Constitutional Constitutional ED: Denies chills or fever(s) Eyes Eyes: Denies change in vision or diplopia ENT ENT ED: Denies rhinorrhea or sore throat Cardiovascular Cardiovascular: Denies chest pain or palpitations Respiratory/Chest Respiratory/Chest: Denies cough or dyspnea Gastrointestinal Gastrointestinal: Reports abdominal pain and other Details: 2 normal bowel movements this morning since having the beginning of the pain, normal ; Denies diarrhea, nausea or vomiting Genitourinary Genitourinary ED: Denies dysuria, hematuria or urinary frequency Musculoskeletal Musculoskeletal: Reports back pain; Denies neck pain Integumentary Denies abscess or rash Neurologic Neurologic: Denies headache(s), paresthesias or weakness Psychiatric Psychiatric: Denies anxiety or suicidal thoughts EXAM Physical Exam Const Vital Signs: 04/14/23 08:42 04/14/23 09:44 Temperature 97.9 F 98.2 F Temperature Source Temporal Temporal Pulse Rate 97 73 Respiratory Rate 28 H 14 Blood Pressure 157/131 H 142/110 H Blood Pressure Mean 139 120 Pulse Ox 100 100 Oxygen Delivery Method Room Air Room Air Positive well nourished and well developed Constitutional Narrative: Moaning in acute painful distress holding his abdomen General Appearance ED: well developed HEENT Reports moist mucous membranes normocephalic and atraumatic Eyes PERRL and EOMs intact bilaterally Neck full ROM and supple Resp normal respiratory effort and clear to auscultation bilaterally Cardio regular rate, regular rhythm and no murmurs GI non-distended GI Narrative: Well-healed midline abdominal scar. No palpable hernias. Very mild tenderness right lower quadrant, very mild left lower quadrant tenderness, otherwise benign abdomen and nontender upper abdomen. Auscultation: normoactive bowel sounds Palpation: soft Back/Spine no CVA tenderness General Back: other FROM Extremity normal to inspection General Extremety ED: Negative for edema, pulses abnormal or tenderness General Extremity: Negative for edema or pulses abnormal Neuro oriented x3, CN's II-XII intact bilaterally and no sensory deficits noted Sensorium / Orientation: awake and alert Motor Exam: strength 5/5 throughout Skin no rashes or lesions noted and no wounds MDM MDM MDM Narrative Medical decision making narrative: Patient with severe abdominal pain, differential includes kidney stone, bowel obstruction, plethora of other intra-abdominal emergencies including AAA but less likely given the location of the pain, unknown if he has had his appendix removed in the past but that is in the differential although less likely given the suddenly severe path of onset. I reviewed the labs and the CT, lactic acid is normal, this is thought less likely to be mesenteric ischemia since he has stents in and this pain is very focal. The lactic acid normal rules against this. There is no sign of any acute cause of this on the CT except for some signs of mild colitis in the left. I reviewed the images and report I agree with it. I discussed with Dr. Medina who this patient used to follow with, he suggest this is not indicative necessarily of acute ischemic colitis, he agrees his symptoms not necessarily consistent with that, and does not recommend anything other than pain control. Patient advised to follow-up with a specialist in [place] if he continues to have problems otherwise we will give him additional analgesia here, and have him follow-up as an outpatient he is comfortable with that plan, he was initially given Dilaudid that did not help his pain at all. GI indicates this patient does have a history of very difficult to control abdominal pain. Toradol really helped his pain. No sign of kidney stone on the CT, will prescribe him dicyclomine in addition to the Percocet. It is noted in the EMR that the patient has a history of high urine total porphyrins, so given this and his chronically recurring abdominal pain, acute porphyria is also in the differential but since he does not have significant anemia right now, no other acute intervention indicated at this time. Lab Data Attestation: I reviewed the patient's lab results. Labs: Laboratory Results - last 24 hr 04/14/23 04/14/23 04/14/23 08:57 10:25 11:08 WBC 8.5 RBC 4.71 Hgb 12.0 L Hct 38.9 L MCV 82.6 MCH 25.5 L MCHC 30.8 L RDW Std Deviation 43.2 RDW Coeff of Rashida 14.4 Plt Count 230 MPV 12.3 H Immature Gran % (Auto) 0.400 Neut % (Auto) 70.0 Lymph % (Auto) 16.3 L [place] % (Auto) 10.0 Eos % (Auto) 2.5 Baso % (Auto) 0.8 Absolute Neuts (auto) 5.9 Absolute Lymphs (auto) 1.38 Nucleated RBC % 0 Sodium 141 Potassium 3.5 Chloride 107 Carbon Dioxide 28.0 Anion Gap 6 BUN 12 Creatinine 0.99 Est GFR (MDRD) Af Amer 98 Est GFR (MDRD) Non-Af 81 BUN/Creatinine Ratio 12.1 Glucose 101 Lactic Acid 1.7 Calcium 9.3 Total Bilirubin 0.50 AST 25 ALT 30 Alkaline Phosphatase 111 Total Protein 7.5 Albumin 4.1 Globulin 3.4 Albumin/Globulin Ratio 1.2 Urine Color Yellow Urine Clarity Clear Urine pH 8.0 Ur Specific [place] 1.010 Urine Protein Negative Urine Glucose (UA) Normal Urine Ketones Negative Urine Occult Blood Negative Urine Nitrite Negative Urine Bilirubin Negative Urine Urobilinogen Normal Ur Leukocyte Esterase Negative Urine RBC 0 SEEN Urine WBC 0 SEEN Ur Squamous Epith Cells 0-5 SEEN Urine Bacteria 0 SEEN Urine Mucus 0 SEEN Radiography Diagnostic Testing: Clinical Impression(s) from Imaging Studies Abdomen/Pelvis CT 04/14/23 09:55 IMPRESSION: Status post stent placement at the origin of the celiac artery and superior mesenteric artery. Surgical changes are seen in the region of the second portion of the duodenum and stomach. Findings suggestive of a localized colitis in the rectosigmoid colon. Fatty infiltration of the liver. Electronically Signed: Ramon Miranda MD at 10:41 EDT , Rhythm Strip Rhythm Strip: Sinus Rhythm Rate: 95 Ectopy: None Management Discussion w/another healthcare provider: Molding Technician (GI friend) Discharge Plan Triage Chief Complaint: Abd Pain ED Provider: Moris Angela Dx/Rx/DC Orders Clinical Impression: Abdominal pain, acute, right lower quadrant Instructions: Abdominal Pain Prescriptions: New dicyclomine 10 mg capsule 20 mg PO Q6H PRN PRN (Reason: abdominal pain) Qty: 20 0RF oxycodone-acetaminophen [oxycodone-acetaminophen] 5-325 mg tablet 1 tab PO Q6H PRN PRN (Reason: Pain) 3 Days Qty: 12 0RF No Action clopidogrel 75 MG tablet 75 mg PO QHS Hold Instructions: hold for five days, then resume rosuvastatin 10 MG tablet 10 mg PO QHS aspirin 81 mg Tablet,Delayed Release (Dr/Ec) 81 mg PO DAILY pantoprazole 20 mg tablet,delayed release (DR/EC) 20 mg PO QHS Primary Care Provider: Richard Dai Referrals: Richard Dai MD [Primary Care Provider] - 3-5 Days if not improving (and/or your GI doctor in [place]) Disposition Disposition: Home, Self Care
[2023-04-14] MEDS: Ondansetron 4 MG/2 ML Vial IV (09:09)
[2023-04-14] MEDS: HYDROmorphone 1 MG/ML Syringe IV (09:09)
[2023-04-14] MEDS: 0.9% Normal Saline (1000mL) 1,000 ML 1000 ML IV (09:09)
[2023-04-14 09:11] LABS: Absolute Lymphocyte Count 1.38 X10^3/uL (0.83-4.51); Absolute Neutrophil Count 5.9 X10^3/uL (2.0-7.7); Basophil# 0.07 X10^3/uL; Basophil% 0.8 % (0-1); Differential Indicated SCAN CRITERIA MET; Eosinophil# 0.21 X10^3/uL; Eosinophils% 2.5 % (0-5); Hematocrit 38.9 % (40-54); Lymphocyte # 1.38 X10^3/ul (0.83-4.51); Lymphocyte % 16.3 % (19-41); Mean Corp Hgb Conc 30.8 g/dL (32-36); Mean Corpuscular Hgb 25.5 pg (27.0-32.0); Mean Corpuscular Volume 82.6 fL (80-94); Mean Platelet Vol. 12.3 fl (6.2-12.0); Monocyte# 0.85 X10^3/uL; NRBC Flagged by Analyzer 0 % (0-5); Neutrophil # 5.93 X10^3/uL (2.7-7.7); POSITIVE MORPHOLOGY YES; Platelet Count 230 K/mm3 (150-450); RBC Distribution Width CV 14.4 % (11.6-14.6); RBC Distribution Width SD 43.2 fl (35.1-43.9); Red Blood Count 4.71 M/mm3 (4.6-6.2); White Blood Count 8.5 K/mm3 (4.4-11.0)
[2023-04-14 09:26] LABS: ALB/GLOB Ratio 1.2 RATIO (0.9-2.4); AST(SGOT) 25 U/L (15-37); Alanine Aminotransfer ALT/SGPT 30 U/L (16-61); Albumin, Serum 4.1 g/dL (3.2-5.0); Alkaline Phosphatase 111 U/L (45-117); Anion Gap 6 (5-15); BUN 12 mg/dL (7-18); BUN/Creat Ratio 12.1 RATIO (10-20); Calcium,Total 9.3 mg/dL (8.5-10.1); Chloride 107 mmol/L (98-107); Creatinine, Serum 0.99 mg/dL (0.70-1.30); EST Glomerular Filtration Rate 81 mL/min (>60); Est Glom Filt Rate - Afr Amer 98 mL/min (>60); Globulin 3.4 g/dL (2.2-4.2); Glucose 101 mg/dL (74-106); Potassium 3.5 mmol/L (3.5-5.1); Protein, Total 7.5 g/dL (6.4-8.2); Sodium Level 141 mmol/L (136-145)
[2023-04-14 09:44] VITALS: BP 142/110; PULSE 73; RESP 14; TEMP 36.8; O2SAT 100
--- NOTE | 2023-04-14 09:55 | CT_ITS ---
STUDY: CT ABDOMEN AND PELVIS WITH CONTRAST REASON FOR EXAM: Male, 62 years old. RLQ pain RADIATION DOSAGE (If Supplied By Facility): CTDIvol = ( 9.39 ) mGy, DLP = ( 241.49 ) mGycm TECHNIQUE: Transaxial images were obtained from the dome of the diaphragm to the symphysis pubis without oral contrast. IV 100mL [id number]-300 was administered. Sagittal and coronal images were reconstructed. Individualized dose optimization techniques were used for this CT. COMPARISON: Comparison is made with prior study dated November 12, 2022. FINDINGS: The visualized lung bases are unremarkable. The visualized portions of the heart are within normal limits. Normal liver. There are surgical clips in the gallbladder fossa consistent with a prior cholecystectomy. Normal spleen. Normal pancreas. Normal bilateral adrenal glands. Normal right kidney. Normal left kidney. Surgical clips are seen in the region of the second portion of the duodenum. Surgical clips are also seen along the anterior aspect of the stomach. Normal small intestine. Thickening of the rectosigmoid colon. Localized colitis should be ruled out. The appendix is visualized and appears normal. There is diffuse atherosclerotic calcification of the abdominal aorta, without a demonstrated aneurysm. A stent is once again seen in the proximal portion of the celiac artery. A stent is also seen in the proximal portion of the superior mesenteric artery. Normal inferior vena cava. Normal retroperitoneum. Normal urinary bladder. Normal abdominal wall. Normal osseous structures. CT/Abdomen/Pelvis W IV Cont ONLY IMPRESSION: Status post stent placement at the origin of the celiac artery and superior mesenteric artery. Surgical changes are seen in the region of the second portion of the duodenum and stomach. Findings suggestive of a localized colitis in the rectosigmoid colon. Fatty infiltration of the liver. Electronically Signed: Ramon Miranda MD at 10:41 EDT ,
[2023-04-14 10:11] VITALS: BMI 16.3
[2023-04-14] MEDS: Ketorolac 15 MG/ML Vial IV (10:24)
[2023-04-14 10:46] LABS: Bacteria 0 SEEN /hpf (None Seen); Mucous, Urine 0 SEEN /hpf (<or=2+); Red Blood Cells-Urine 0 SEEN /hpf (0-5); White Blood Cells 0 SEEN /hpf (0-5)
[2023-04-14 10:52] LABS: Color, Urine Yellow (Yellow); Glucose, Dipstick Normal (Normal); Ketone-Dipstick Negative (Negative); Leukocyte Esterase-Dipstick Negative /ul (Negative); Nitrite-Dipstick Negative (Negative); Occult Blood-Urine Negative /ul (Negative); Protein-Dipstick Negative (Negative); Urine Bilirubin Dipstick Negative (Negative); Urine Clarity Clear (Clear); Urine Urobilinogen Normal (Normal)
[2023-04-14 11:03] LABS: Squamous Epithelial Cells - UA 0-5 SEEN /hpf (0-5)
[2023-04-14 12:07] LABS: Lactic Acid 1.7 mmol/L (0.4-1.9)
[2023-04-14 13:17] VITALS: BP 107/61; PULSE 71; RESP 11; O2SAT 100
[2023-04-14] MEDS: morphine 8 MG/ML Syringe IV (13:23)
== END 2023-04-14 13:34 | disposition home or self-care (01) ==
PROVIDERS: Emergency Provider Emergency Medicine; PCP Family Medicine; Visit Provider Emergency Medicine
DX: R10.31 Right lower quadrant pain (principal); F17.210 Nicotine dependence, cigarettes, uncomplicated; E78.00 Pure hypercholesterolemia, unspecified; Z79.82 Long term (current) use of aspirin; Z79.899 Other long term (current) drug therapy
CPT/HCPCS: 36415; 74177; 80053; 81001; 83605; 85025; 96361; 96374; 96375; 99282; J7030; Q9967; A4216; J2405

== ENCOUNTER 2023-04-25 04:23 | Emergency (ER) | payer OTHER, SELFPAY ==
[2023-04-25 04:24] VITALS: BP 130/92; PULSE 71; RESP 16; TEMP 36.3; O2SAT 99; BMI 16.3
--- NOTE | 2023-04-25 04:36 | ED.VIS.GI ---
HPI HPI - GI History of Present Illness Chief Complaint: Abd Pain Informant: patient and EMS Narrative Narrative: Patient with chronically recurring abdominal pain, he was seen here 1.5 weeks ago for the same pain, he states he came back about 9 or 10 hours prior to arrival this morning at around 4:30 AM. Pain is mostly in the right lower quadrant area, radiates into the flank some. Was not suddenly severe in onset, and a little improved after he received fentanyl, Versed, and Phenergan from EMS en route here. Last time he was here for this, we worked him up and it was fairly unremarkable except for some possible nonspecific focal colitis on CT. He has a history of mesenteric ischemia with stents, but he also has a history of high urine total porphyrins and liver issues. Denies any hematemesis lately or melena/bright red blood per rectum. When asked if he has followed up with anyone, he states the pain went away within less than a day of his prior visit, came back a little bit several days later but then dissipated and he works early in the morning until late in the evening and has not even tried to call for follow-up appointment yet. [facility] Medical History Arthritis Celiac artery stenosis Difficulty swallowing High cholesterol History of diverticulitis History of GI bleed History of IBS History of stress test History of ulceration Injury of head and neck Liver failure Marijuana use Mesenteric artery stenosis Mesenteric ischemia, chronic Migraine headache Restless legs Smoker Superior mesenteric artery syndrome Wears glasses Home Medications clopidogrel 75 mg tablet 75 mg PO QHS BLOOD THINNER 09/23/16 [History Last Taken 01/04/23] rosuvastatin 10 mg tablet 10 mg PO QHS CHOLESTEROL 06/08/18 [History Last Taken 11/11/22] aspirin 81 mg tablet,delayed release 81 mg PO DAILY HEART HEALTH 11/12/22 [History Last Taken 01/04/23] pantoprazole 20 mg tablet,delayed release 20 mg PO QHS ACID REFLUX 11/12/22 [History Last Taken 11/11/22] dicyclomine 10 mg capsule 20 mg (2 x 10 mg) PO Q6H PRN PRN abdominal pain #20 CAPSULES 04/14/23 [Rx Last Taken Unknown] oxycodone-acetaminophen 5 mg-325 mg tablet 1 tab PO Q6H PRN PRN Pain 3 days #12 TABLETS 04/14/23 [Rx Last Taken Unknown] Allergy/AdvReac Type Severity Reaction Status Date / Time senna Allergy Anaphylaxis Verified 04/25/23 04:24 omeprazole AdvReac Other Verified 04/25/23 04:24 Family History Father Colon cancer Mother COPD (chronic obstructive pulmonary disease) Lung cancer Concurrent tobacco use history. Surgical History History of cholecystectomy History of esophagogastroduodenoscopy (EGD) History of liver biopsy Hx of cervical spine surgery Hx of colonoscopy Hx of myringotomy Hx of resection of stomach Hx of surgical procedure Social History household members: spouse Smoking Status: Current every day smoker tobacco type: cigarettes how long ago did patient quit smoking: Cut back over 2-3 weeks, down to 3 cig/day 10/09/22. alcohol intake: current alcohol intake frequency: a few times a month details: occasional use substance use type: does not use ROS ROS ED Constitutional Constitutional ED: Denies chills or fever(s) Eyes Eyes: Denies change in vision or diplopia ENT ENT ED: Denies rhinorrhea or sore throat Cardiovascular Cardiovascular: Denies chest pain or palpitations Respiratory/Chest Respiratory/Chest: Denies cough or dyspnea Gastrointestinal Gastrointestinal: Reports abdominal pain; Denies diarrhea, hematemesis, hematochezia, melena, nausea or vomiting Genitourinary Genitourinary ED: Denies dysuria or hematuria Musculoskeletal Musculoskeletal: Denies back pain or neck pain Integumentary Denies abscess or rash Neurologic Neurologic: Denies headache(s), paresthesias or weakness Psychiatric Psychiatric: Denies anxiety or suicidal thoughts EXAM Physical Exam Const Vital Signs: 04/25/23 04:24 04/25/23 06:23 Temperature 97.3 F L Temperature Source Temporal Pulse Rate 71 71 Respiratory Rate 16 16 Blood Pressure 130/92 H 119/78 Blood Pressure Mean 104 91 Pulse Ox 99 97 Positive well nourished and well developed General Appearance ED: well developed and NAD HEENT Reports moist mucous membranes normocephalic and atraumatic Eyes PERRL and EOMs intact bilaterally Neck full ROM and supple Resp normal respiratory effort and clear to auscultation bilaterally Cardio regular rate, regular rhythm and no murmurs GI non-distended GI Narrative: Mild tenderness lower abdomen. No guarding or rebound. Auscultation: normoactive bowel sounds Palpation: soft Back/Spine no CVA tenderness General Back: other FROM Extremity normal to inspection General Extremety ED: Negative for edema, pulses abnormal or tenderness General Extremity: Negative for edema or pulses abnormal Neuro oriented x3, CN's II-XII intact bilaterally and no sensory deficits noted Sensorium / Orientation: awake and alert Motor Exam: strength 5/5 throughout Psych Mood & Affect: anxious Skin no rashes or lesions noted and no wounds MDM MDM MDM Narrative Medical decision making narrative: Patient was given pain medication similar to last time but it did not help his pain is much as before. In working him up, similar test results except for he has a leukocytosis at this time and he has a mild lactic acidosis. Given his history of ischemic bowel and mesenteric ischemia, as well as the stomach antral surgery that he had, we both agree that he has had a lot of CT scans in the past and we are trying to limit those, but this encounter is different from his last encounter in these ways and he agrees that he would rather be safe than sorry, so we rescan him to rule out these recurrent issues and/or surgical complication. I reviewed the images and the scan report and I agree with it, basically negative for any acute, similar to the prior scan. Patient was given additional analgesics he is a little better he is able to walk to and from the bathroom and drink fluids without difficulty and will be discharged home, he has Percocet and dicyclomine from last time he has only taken 1 dose of each before he came here tonight. Patient indicates that his doctor is suspicious he has acute intermittent porphyria, but he needs some type of test when he is in pain. I am not familiar with this so I discussed with our hired help Dr. Mdeina, who states that test is a 24-hour urine. That is going to be difficult for me to obtain out of the emergency department, he does recommend that he be referred to a community ambassador. We do not have 1 in our health system, he is advised to follow-up with his PCP for this, so then he can get the right treatment. Lab Data Attestation: I reviewed the patient's lab results. Labs: Laboratory Results - last 24 hr 04/25/23 05:00 WBC 16.0 H RBC 5.02 Hgb 12.6 L Hct 41.9 MCV 83.5 MCH 25.1 L MCHC 30.1 L RDW Std Deviation 45.4 H RDW Coeff of Rashida 15.1 H Plt Count 242 MPV 12.7 H Immature Gran % (Auto) 0.500 Neut % (Auto) 84.2 H Lymph % (Auto) 6.5 L [place] % (Auto) 7.4 Eos % (Auto) 0.7 Baso % (Auto) 0.7 Absolute Neuts (auto) 13.5 H Absolute Lymphs (auto) 1.04 Nucleated RBC % 0 Sodium 137 Potassium 3.7 Chloride 106 Carbon Dioxide 26.0 Anion Gap 5 BUN 13 Creatinine 1.00 Estim Creat Clear Calc 56.01 Est GFR (MDRD) Af Amer 97 Est GFR (MDRD) Non-Af 81 BUN/Creatinine Ratio 13.0 Glucose 94 Lactic Acid 2.4 H* Calcium 9.4 Total Bilirubin 0.20 AST 20 ALT 24 Alkaline Phosphatase 116 Total Protein 8.1 Albumin 4.3 Globulin 3.8 Albumin/Globulin Ratio 1.1 Lipase 25 Radiography Diagnostic Testing: Clinical Impression(s) from Imaging Studies Abdomen/Pelvis CT 04/25/23 07:16 IMPRESSION: Moderate amount of stool throughout the colon. Circumferential wall thickening of the sigmoid colon, this may be partially secondary to its incompletely distended state however cannot exclude colitis. Stable celiac trunk and superior artery stents. Electronically Signed: Marisa Thakkar MD at 8:08 EDT , Discharge Plan Triage Chief Complaint: Abd Pain ED Provider: Moris Angela Dx/Rx/DC Orders Clinical Impression: High urine total porphyrin, Abdominal pain Instructions: Porphyrins (Urine) Prescriptions: No Action clopidogrel 75 MG tablet 75 mg PO QHS Hold Instructions: hold for five days, then resume rosuvastatin 10 MG tablet 10 mg PO QHS aspirin 81 mg Tablet,Delayed Release (Dr/Ec) 81 mg PO DAILY pantoprazole 20 mg tablet,delayed release (DR/EC) 20 mg PO QHS dicyclomine 10 mg capsule 20 mg PO Q6H PRN PRN (Reason: abdominal pain) Qty: 20 0RF oxycodone-acetaminophen [oxycodone-acetaminophen] 5-325 mg tablet 1 tab PO Q6H PRN PRN (Reason: Pain) 3 Days Qty: 12 0RF Primary Care Provider: Richard Dai Referrals: Richard Dai MD [Primary Care Provider] - As soon as possible (Call for further instructions) Disposition Disposition: Home, Self Care
[2023-04-25] MEDS: 0.9% Normal Saline (1000mL) 1,000 ML 1000 ML IV (04:52)
[2023-04-25] MEDS: HYDROmorphone 1 MG/ML Syringe 0.5 MG IV (04:53)
[2023-04-25] MEDS: Dicyclomine 20 MG/2 ML Vial IM (04:53)
[2023-04-25] MEDS: Ketorolac 15 MG/ML Vial IV ×2 (04:53→09:02)
[2023-04-25 05:09] LABS: Absolute Lymphocyte Count 1.04 X10^3/uL (0.83-4.51); Absolute Neutrophil Count 13.5 X10^3/uL (2.0-7.7); Basophil# 0.12 X10^3/uL; Basophil% 0.7 % (0-1); Eosinophil# 0.11 X10^3/uL; Eosinophils% 0.7 % (0-5); Hematocrit 41.9 % (40-54); Hemoglobin 12.6 g/dL (13.0-16.5); Lymphocyte # 1.04 X10^3/ul (0.83-4.51); Lymphocyte % 6.5 % (19-41); Mean Corp Hgb Conc 30.1 g/dL (32-36); Mean Corpuscular Hgb 25.1 pg (27.0-32.0); Mean Corpuscular Volume 83.5 fL (80-94); Mean Platelet Vol. 12.7 fl (6.2-12.0); Monocyte# 1.18 X10^3/uL; Monocyte% 7.4 % (0-10); NRBC Flagged by Analyzer 0 % (0-5); Neutrophil # 13.51 X10^3/uL (2.7-7.7); Neutrophil % 84.2 % (47-70); Platelet Count 242 K/mm3 (150-450); RBC Distribution Width CV 15.1 % (11.6-14.6); RBC Distribution Width SD 45.4 fl (35.1-43.9); Red Blood Count 5.02 M/mm3 (4.6-6.2)
[2023-04-25 05:26] LABS: ALB/GLOB Ratio 1.1 RATIO (0.9-2.4); AST(SGOT) 20 U/L (15-37); Alanine Aminotransfer ALT/SGPT 24 U/L (16-61); Albumin, Serum 4.3 g/dL (3.2-5.0); Alkaline Phosphatase 116 U/L (45-117); Anion Gap 5 (5-15); BUN 13 mg/dL (7-18); Calcium,Total 9.4 mg/dL (8.5-10.1); Chloride 106 mmol/L (98-107); EST Glomerular Filtration Rate 81 mL/min (>60); Est Glom Filt Rate - Afr Amer 97 mL/min (>60); Estimated Creatinine Clearance 56.01 ml/min; Globulin 3.8 g/dL (2.2-4.2); Glucose 94 mg/dL (74-106); Lipase 25 U/L (13-75); Potassium 3.7 mmol/L (3.5-5.1); Protein, Total 8.1 g/dL (6.4-8.2); Sodium Level 137 mmol/L (136-145)
[2023-04-25 05:55] LABS: Lactic Acid 2.4 mmol/L (0.4-1.9)
[2023-04-25 06:23] VITALS: BP 119/78; PULSE 71; RESP 16; O2SAT 97
--- NOTE | 2023-04-25 07:16 | CT_ITS ---
STUDY: CT ABDOMEN AND PELVIS WITH CONTRAST - URINARY TRACT REASON FOR EXAM: Male, 63 years old. Right sided abd pain, hx stomach surg and vasc dz RADIATION DOSAGE (If Supplied By Facility): CTDIvol = ( 10.17 ) mGy, DLP = ( 246.87 ) mGycm TECHNIQUE: IV 100mL Isovue-300 was administered. Transaxial images were obtained from the dome of the diaphragm to the symphysis pubis subsequent to intravenous contrast administration. Multiplanar coronal and sagittal images were reformatted. Individualized Dose Optimization Techniques Were Used For This CT. COMPARISON: April 14, 2023 FINDINGS: The visualized lung bases are unremarkable. The visualized portions of the heart are within normal limits. Normal liver. There are surgical clips within the gallbladder fossa with prior cholecystectomy. Normal spleen. Normal pancreas. Normal bilateral adrenal glands. There are postsurgical changes of the stomach. Normal small intestine. There is a moderate amount of stool throughout the colon. There is circumferential wall thickening of the distal sigmoid colon. The appendix is visualized and appears normal. Normal abdominal aorta. No retroperitoneal adenopathy. There are stable stents within the celiac trunk and the superior mesenteric artery. Normal right kidney. Normal left kidney. Normal urinary bladder. Normal abdominal wall. Normal osseous structures. CT/Abdomen/Pelvis W IV Cont ONLY IMPRESSION: Moderate amount of stool throughout the colon. Circumferential wall thickening of the sigmoid colon, this may be partially secondary to its incompletely distended state however cannot exclude colitis. Stable celiac trunk and superior artery stents. Electronically Signed: Marisa Thakkar MD at 8:08 EDT ,
[2023-04-25] MEDS: HYDROmorphone 1 MG/ML Syringe IV (07:28)
[2023-04-25 08:00] VITALS: BP 112/64
[2023-04-25] MEDS: morphine 8 MG/ML Syringe IV (09:03)
[2023-04-25 09:07] LABS: Reflex Lactate? Y
== END 2023-04-25 09:45 | disposition home or self-care (01) ==
PROVIDERS: Emergency Provider Emergency Medicine; PCP Family Medicine; Visit Provider Emergency Medicine
DX: R10.9 Unspecified abdominal pain (principal); F17.210 Nicotine dependence, cigarettes, uncomplicated; E78.00 Pure hypercholesterolemia, unspecified; Z79.82 Long term (current) use of aspirin; Z79.899 Other long term (current) drug therapy
CPT/HCPCS: 36415; 74177; 80053; 83605; 83690; 85025; 96361; 96372; 96374; 96375; 96376; 99285; J7030; Q9967; A4216

== ENCOUNTER 2023-11-12 13:41 | Emergency (ER) | payer OTHER, SELFPAY ==
[2023-11-12 13:41] VITALS: BP 150/125; PULSE 102; RESP 22; TEMP 36.4; O2SAT 99; BMI 15.9
--- NOTE | 2023-11-12 14:32 | CT_ITS ---
STUDY: CT ABDOMEN AND PELVIS WITH CONTRAST REASON FOR EXAM: Male, 63 years old. Left upper quadrant abdominal pain PRIOR COLTEN-EN Y PROCEDURE, PARTIAL BOWEL RESECTION RADIATION DOSAGE (If Supplied By Facility): CTDIvol = ( 13.90 ) mGy, DLP = ( 216.80 ) mGycm TECHNIQUE: Transaxial images were obtained from the dome of the diaphragm to the symphysis pubis without oral contrast. ml of 100mL Isovue-300 contrast was administered. Sagittal and coronal images were reconstructed. Individualized dose optimization techniques were used for this CT. COMPARISON: CT of abdomen and pelvis dated April 25, 2023 FINDINGS: The visualized lung bases are unremarkable. The visualized portions of the heart are within normal limits. Normal liver. There are surgical clips in the gallbladder fossa consistent with a prior cholecystectomy. Mild postcholecystectomy dilatation of the CBD without evidence of a radiopaque stone in the CBD lumen. Redemonstration of celiac and SMA stents. Atherosclerotic plaque and narrowing is present at the origins of these vessels, however vascular flow is seen through the stents and distal to these regions. Normal spleen. Normal pancreas. Normal bilateral adrenal glands. Normal right kidney. Normal left kidney. Prior gastric bypass. No acute abnormalities are seen. Normal small intestine. There is mild thickening of the wall of the distal transverse and descending colon compatible with nonspecified colitis. No visualized diverticulosis. No free air or free fluid or bowel dilatation is present. The appendix is visualized and appears normal. There is diffuse atherosclerotic calcification of the abdominal aorta, without a demonstrated aneurysm. Normal inferior vena cava. Normal retroperitoneum. Normal urinary bladder. Normal abdominal wall. There are diffuse degenerative changes of the visualized lumbar spine. CT/Abdomen/Pelvis W IV Cont ONLY IMPRESSION: Mild colitis 1. There is mild thickening of the wall of the distal transverse and descending colon compatible with nonspecified colitis. No visualized diverticulosis. No free air or free fluid or bowel dilatation is present. 2. Redemonstration of celiac and SMA stents. Atherosclerotic plaque and narrowing is present at the origins of these vessels, however vascular flow is seen through the stents and distal to these regions. Electronically Signed: Flash Davis MD at 15:50 EDT ,
--- NOTE | 2023-11-12 14:32 | EKG12_ITS ---
Test Reason : ABD PAIN Blood Pressure : / mmHG Vent. Rate : 075 BPM Atrial Rate : 075 BPM P-R Int : 154 ms QRS Dur : 064 ms QT Int : 366 ms P-R-T Axes : 085 084 082 degrees QTc Int : 408 ms Normal sinus rhythm Normal ECG Confirmed by Xander Ahmadi ([id number]), video news editor DMITRY TURNER ([id number]) on 11/13/2023 11:58:59 AM Referred By: Confirmed By:Xander Ahmadi
--- NOTE | 2023-11-12 14:34 | EDS_ITS ---
HPI HPI - GI History of Present Illness Chief Complaint: Abd Pain Detail of Chief Complaint: Left upper quadrant abdominal pain for several days. Informant: patient Abdominal Pain/Flank Pain Onset: Days Context: Gradual Onset Timing: Waxes and wanes Quality: Dull Location: LUQ Current Severity: Moderate Maximum Severity: Moderate Worsened by: Nothing Relieved by: Nothing Nausea/Vomiting/Emesis GI Symptom: Positive for Nausea Onset: Days Severity: Mild Diarrhea/Melena/Hematochezia GI Symptom: Negative for Diarrhea, Melena or Hematochezia Associated Symptoms Associated Symptoms: Negative for Dysuria, Frequency, Hematuria or Urgency Narrative Narrative: 63-year-old male history of prior mesenteric ischemia for which he is on Plavix. He has superior mesenteric artery and celiac stents. 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 He is also had a cholecystectomy. Still has his appendix. Patient states has had abdominal pain left upper quadrant since Friday evening. It waxes and wanes. Associated nausea. No vomiting. No diarrhea. No fever. No dysuria. He is able to urinate. Nothing particular makes the pain better or worse. Prior similar symptoms: Yes Recent Illness/Hospitalization: No PFSH PFSH Medical History Marijuana use Restless legs History of stress test Liver failure Superior mesenteric artery syndrome Mesenteric ischemia, chronic Wears glasses Arthritis High cholesterol Migraine headache Injury of head and neck History of GI bleed Difficulty swallowing History of ulceration History of IBS History of diverticulitis Smoker Celiac artery stenosis Mesenteric artery stenosis Home Medications ?Medication ?Instructions ?Recorded ?Last Taken ?Type clopidogrel 75 mg tablet 75 mg PO QHS BLOOD THINNER 09/23/16 01/04/23 History rosuvastatin 10 mg tablet 10 mg PO QHS CHOLESTEROL 06/08/18 11/11/22 History aspirin 81 mg tablet,delayed 81 mg PO DAILY HEART HEALTH 11/12/22 01/04/23 History release pantoprazole 20 mg tablet,delayed 20 mg PO QHS ACID REFLUX 11/12/22 11/11/22 History release dicyclomine 10 mg capsule 20 mg (2 x 10 mg) PO Q6H PRN PRN 04/14/23 Unknown Rx abdominal pain #20 CAPSULES oxycodone-acetaminophen 5 mg-325 1 tab PO Q6H PRN PRN Pain 3 days 10/23/23 Unknown Rx mg tablet #12 TABLETS Allergy/AdvReac Type Severity Reaction Status Date / Time senna Allergy Anaphylaxis Verified 11/12/23 13:43 omeprazole AdvReac Other Verified 11/12/23 13:43 Family History Father Colon cancer Mother COPD (chronic obstructive pulmonary disease) Lung cancer Concurrent tobacco use history. Surgical History Hx of resection of stomach Hx of myringotomy History of liver biopsy Hx of surgical procedure Hx of colonoscopy Hx of cervical spine surgery History of esophagogastroduodenoscopy (EGD) History of cholecystectomy Social History household members: spouse Smoking Status: Current every day smoker tobacco type: cigarettes how long ago did patient quit smoking: Cut back over 2-3 weeks, down to 3 cig/day 10/09/22. alcohol intake: current alcohol intake frequency: a few times a month details: occasional use substance use type: does not use ROS ROS ED ROS Narrative Abdominal pain. Nausea. Review of Systems ROS Unobtainable: Denies due to encephalopathy Constitutional Constitutional ED: Denies fever(s) ENT ENT ED: Denies ear pain Cardiovascular Cardiovascular: Denies chest pain Respiratory/Chest Respiratory/Chest: Denies cough Gastrointestinal Gastrointestinal: Reports abdominal pain and nausea; Denies constipation, diarrhea, melena or vomiting Genitourinary Genitourinary ED: Denies dysuria or hematuria Musculoskeletal Musculoskeletal: Denies arthralgias Integumentary Denies abscess Neurologic Neurologic: Denies headache(s) Psychiatric Psychiatric: Denies anxiety Endocrine Endocrinology: Denies polydipsia Hematologic/Lymphatic Hematologic/Lymphatic: Denies easy bleeding Allergic/Immunologic Allergic/Immunologic ED: Denies mouth swelling or tongue swelling EXAM Physical Exam Narrative Exam Narrative: 63-year-old male vital signs stable afebrile. Initial blood pressure elevated 150/125. H EENT exam unremarkable. Neck nontender. No JVD. Lungs clear to auscultation. Heart regular rhythm rate about 100 no murmur. Abdomen soft nondistended normal bowel sounds no peritoneal signs. Tenderness left upper quadrant. Well-healed midline abdominal incision. No hernia. No mass. No pulsatile mass. Right upper and right lower quadrants unremarkable. Moving all 4 extremities. Nontender no edema. Neurologically is awake alert no focal motor deficits. Const Vital Signs: 11/12/23 13:41 11/12/23 15:41 Temperature 97.5 F L Temperature Source Temporal Pulse Rate 102 H 65 Respiratory Rate 22 H 16 Blood Pressure 150/125 H 104/72 Blood Pressure Mean 133 82 Pulse Ox 99 98 Oxygen Delivery Method Room Air Room Air Positive well nourished and well developed; Negative for obese, cachectic, contractures or unkempt General Appearance ED: well developed and NAD; Negative for unkempt, cachectic, contractures or pallor Nutritional Appearance: Negative for cachectic or obese HEENT Reports moist mucous membranes; Denies dry mucous membranes normocephalic and atraumatic; Negative for trauma or tenderness Mouth ED: No dry mucous membranes Mouth: No dry mucous membranes Eyes PERRL and EOMs intact bilaterally General Eye ED: Negative for pale conjunctiva or scleral icterus Neck no lymphadenopathy, supple and no JVD General: Negative for tenderness Carotids: Negative for other Lymph Lymphatic: Negative for other Resp normal respiratory effort and clear to auscultation bilaterally Effort and Inspection: Negative for respiratory distress Auscultation: Negative for rales, rhonchi, wheezes or diminished lung sounds Cardio regular rate, regular rhythm, S1 normal heart sound, S2 normal heart sound and no murmurs Rate: Negative for bradycardia or tachycardic Rhythm: Negative for abnormal rhythm GI non-distended and no masses; Negative for non-tender Inspection: Negative for abdominal distention Auscultation: normoactive bowel sounds Palpation: soft and tender; Negative for guarding or rebound tenderness present Back/Spine no CVA tenderness General Back: Negative for CVA tenderness Cervical Spine: Negative for cervical spine tenderness Thoracic Spine / Upper Back: Negative for thoracic spinal tenderness Lumbar Spine / Lower Back: Negative for lumbar spinal tenderness Coccyx: Negative for other Extremity full ROM General Extremety ED: Negative for edema, tenderness or other findings General Extremity: Negative for edema or other findings Neuro CN's II-XII intact bilaterally and moves all extremities Sensorium / Orientation: alert, oriented to person and oriented to place; Negative for oriented to time, orientation impaired, confused, lethargic or stuporous Motor Exam: strength 5/5 throughout; Negative for general weakness or strength abnormal Psych mental status grossly normal and thought process normal Appearance: Negative for unkempt Attitude: No agitated Mood & Affect: Negative for depressed, anxious or tearful Skin no wounds General Skin Exam: Negative for jaundice or pallor Lesions: no lesions Rashes: no rashes Trauma: Negative for abrasion or other Nails: Negative for discolored MDM MDM MDM Narrative Medical decision making narrative: 63-year-old male left upper quadrant abdominal pain. CAT scan labs are pending. Treated with IV Dilaudid and Zofran. Differential would include bowel obstruction and clinically he does not appear to be obstructed. Mesenteric ischemia, pancreatitis versus other etiologies. Repeat exam patient doing well at 5:00. Abdomen is benign. Still complains of some discomfort but there is no reproducible pain. No signs of obstruction or hernia. He will be given another half a dose of Dilaudid. Discharged home. He and I went over all his test results. He has outpatient follow-up scheduled with his GI doctor first week of November. He knows return if he is feeling worse. There is nothing new admitted in the hospital for at this time. History & Record Review Discussion w/independent historian: Patient Additional record(s) reviewed:: Prior inpatient record, Prior outpatient record, Prior ED visit and Prior labs Lab Data Attestation: I reviewed the patient's lab results. Lab results narrative: CBC shows a white count of 6.5. H&H 11.0 and 35.6. Consistent with patient's baseline anemia. Platelets 218. Electrolytes show gap 7. Normal BUN and creatinine. Liver enzymes unremarkable. Lactic acid normal at 1.1. Both amylase and lipase are normal. CAT scan shows a possible colitis. Good blood flow is seen through the stents. Labs: Laboratory Results - last 24 hr 11/12/23 11/12/23 14:15 14:50 WBC 6.5 RBC 4.85 Hgb 11.0 L Hct 35.6 L MCV 73.4 L MCH 22.7 L MCHC 30.9 L RDW Std Deviation 48.1 H RDW Coeff of Rashida 18.6 H Plt Count 218 Immature Gran % (Auto) 0.300 Neut % (Auto) 65.9 Lymph % (Auto) 21.8 [place] % (Auto) 9.3 Eos % (Auto) 1.9 Baso % (Auto) 0.8 Absolute Neuts (auto) 4.3 Absolute Lymphs (auto) 1.41 Nucleated RBC % 0 Sodium 138 Potassium 3.9 Chloride 107 Carbon Dioxide 24.0 Anion Gap 7 BUN 11 Creatinine 1.20 Estim Creat Clear Calc 45.41 Est GFR (MDRD) Af Amer 79 Est GFR (MDRD) Non-Af 65 BUN/Creatinine Ratio 9.2 L Glucose 89 Lactic Acid 1.1 Calcium 9.3 Total Bilirubin 0.40 AST 24 ALT 17 Alkaline Phosphatase 182 H Total Protein 7.5 Albumin 3.9 Globulin 3.6 Albumin/Globulin Ratio 1.1 Amylase 43 Lipase 23 Radiography Diagnostic Testing: Clinical Impression(s) from Imaging Studies Abdomen/Pelvis CT 11/12/23 14:32 IMPRESSION: Mild colitis 1. There is mild thickening of the wall of the distal transverse and descending colon compatible with nonspecified colitis. No visualized diverticulosis. No free air or free fluid or bowel dilatation is present. 2. Redemonstration of celiac and SMA stents. Atherosclerotic plaque and narrowing is present at the origins of these vessels, however vascular flow is seen through the stents and distal to these regions. Electronically Signed: Flash Davis MD at 15:50 EDT Reading Location ID and State: [facility] / [place] , Service support , Rhythm Strip Rhythm Strip: Sinus Rhythm Rate: 75 Ectopy: None EKG Initial EKG: Attestation: I personally reviewed and interpreted this EKG as follows: Interpretation: Sinus Rhythm and No Acute Injury Pattern Comments: Normal sinus rhythm rate of 75 no acute signs of HI nor ischemia nor dysrhythmia. Unchanged from prior EKG from September 2022. Discharge Plan Triage Chief Complaint: Abd Pain ED Provider: Alexander Hernandez Dx/Rx/DC Orders Clinical Impression: Abdominal pain, History of gastric ulcer, History of anemia Instructions: Abdominal Pain Prescriptions: No Action clopidogrel 75 MG tablet 75 mg PO QHS rosuvastatin 10 MG tablet 10 mg PO QHS aspirin 81 mg Tablet,Delayed Release (Dr/Ec) 81 mg PO DAILY pantoprazole 20 mg tablet,delayed release (DR/EC) 20 mg PO QHS dicyclomine 10 mg capsule 20 mg PO Q6H PRN PRN (Reason: abdominal pain) Qty: 20 0RF oxycodone-acetaminophen [oxycodone-acetaminophen] 5-325 mg tablet 1 tab PO Q6H PRN PRN (Reason: Pain) 3 Days Qty: 12 0RF Primary Care Provider: Richard Dai Referrals: Richard Dai MD [Primary Care Provider] - 3-5 Days if not improving Activity Restrictions/Additional Instructions: Follow-up with your doctor if not feeling better. Follow-up with your GI doctor with your scheduled appointment next month. Return if increasing pain, fever or intractable vomiting or black or bloody stool. Print Language: Georgian Disposition Disposition: Home, Self Care
[2023-11-12] MEDS: HYDROmorphone 1 MG/ML Syringe IV (14:45)
[2023-11-12] MEDS: Ondansetron 4 MG/2 ML Vial IV (14:45)
[2023-11-12 14:49] LABS: Absolute Lymphocyte Count 1.41 X10^3/uL (0.83-4.51); Absolute Neutrophil Count 4.3 X10^3/uL (2.0-7.7); Basophil# 0.05 X10^3/uL; Basophil% 0.8 % (0-1); Eosinophil# 0.12 X10^3/uL; Eosinophils% 1.9 % (0-5); Hematocrit 35.6 % (40-54); Lymphocyte # 1.41 X10^3/ul (0.83-4.51); Lymphocyte % 21.8 % (19-41); Mean Corp Hgb Conc 30.9 g/dL (32-36); Mean Corpuscular Hgb 22.7 pg (27.0-32.0); Mean Corpuscular Volume 73.4 fL (80-94); Monocyte% 9.3 % (0-10); NRBC Flagged by Analyzer 0 % (0-5); Neutrophil # 4.28 X10^3/uL (2.7-7.7); Neutrophil % 65.9 % (47-70); Platelet Count 218 K/mm3 (150-450); RBC Distribution Width CV 18.6 % (11.6-14.6); RBC Distribution Width SD 48.1 fl (35.1-43.9); Red Blood Count 4.85 M/mm3 (4.6-6.2); White Blood Count 6.5 K/mm3 (4.4-11.0)
[2023-11-12 15:05] LABS: ALB/GLOB Ratio 1.1 RATIO (0.9-2.4); AST(SGOT) 24 U/L (15-37); Alanine Aminotransfer ALT/SGPT 17 U/L (16-61); Albumin, Serum 3.9 g/dL (3.2-5.0); Alkaline Phosphatase 182 U/L (45-117); Amylase 43 U/L (25-115); Anion Gap 7 (5-15); BUN 11 mg/dL (7-18); BUN/Creat Ratio 9.2 RATIO (10-20); Calcium,Total 9.3 mg/dL (8.5-10.1); Chloride 107 mmol/L (98-107); EST Glomerular Filtration Rate 65 mL/min (>60); Est Glom Filt Rate - Afr Amer 79 mL/min (>60); Estimated Creatinine Clearance 45.41 ml/min; Globulin 3.6 g/dL (2.2-4.2); Glucose 89 mg/dL (74-106); Lipase 23 U/L (13-75); Potassium 3.9 mmol/L (3.5-5.1); Protein, Total 7.5 g/dL (6.4-8.2); Sodium Level 138 mmol/L (136-145)
[2023-11-12 15:41] VITALS: BP 104/72; PULSE 65; RESP 16; O2SAT 98
[2023-11-12 15:49] LABS: Lactic Acid 1.1 mmol/L (0.4-1.9)
[2023-11-12 17:00] VITALS: BP 124/73; PULSE 66; RESP 16; TEMP 36.2; O2SAT 90
[2023-11-12] MEDS: HYDROmorphone 0.5 MG/0.5 ML SYRINGE IV (17:08)
[2023-11-12 17:41] VITALS: BP 124/73; PULSE 66; RESP 16; TEMP 36.2; O2SAT 90
== END 2023-11-12 17:42 | disposition home or self-care (01) ==
PROVIDERS: Emergency Provider Emergency Medicine; PCP Family Medicine; Visit Provider Emergency Medicine
DX: R10.12 Left upper quadrant pain (principal); F17.210 Nicotine dependence, cigarettes, uncomplicated
CPT/HCPCS: 74177; 80053; 82150; 83605; 83690; 85025; 93005; 96374; 96375; 96376; 99283; Q9967; A4216; J2405

== ENCOUNTER 2023-12-30 09:08 | Emergency (ER) | payer OTHER, SELFPAY ==
[2023-12-30 09:09] VITALS: BP 200/160; BP 220/180; PULSE 81; PULSE 97; RESP 22; RESP 24; TEMP 36.3; O2SAT 92; O2SAT 99
[2023-12-30 09:11] VITALS: BMI 17.9
--- NOTE | 2023-12-30 09:36 | EKG12_ITS ---
Test Reason : sob Blood Pressure : / mmHG Vent. Rate : 078 BPM Atrial Rate : 078 BPM P-R Int : 136 ms QRS Dur : 068 ms QT Int : 356 ms P-R-T Axes : 084 085 080 degrees QTc Int : 405 ms Normal sinus rhythm with sinus arrhythmia Right atrial enlargement Borderline ECG Confirmed by Xander Ahmadi ([id number]), editor in chief DELMER RUFF ([id number]) on 12/31/2023 9:42:46 AM Referred By: Melba Confirmed By:Xander Ahmadi
--- NOTE | 2023-12-30 09:36 | CT_ITS ---
STUDY: CT ABDOMEN AND PELVIS WITH CONTRAST REASON FOR EXAM: Male, 63 years old. Severe abdominal pain and nausea. Prior partial gastrectomy. RADIATION DOSAGE (If Supplied By Facility): CTDIvol = ( 10.18 ) mGy, DLP = ( 239.13 ) mGycm TECHNIQUE: Transaxial images were obtained from the dome of the diaphragm to the symphysis pubis without oral contrast. IV 75mL [id number]-[id number] was administered. Sagittal and coronal images were reconstructed. Individualized dose optimization techniques were used for this CT. COMPARISON: Comparison is made with prior examination dated November 12, 2023. FINDINGS: The visualized lung bases are unremarkable. Coronary artery calcification. Normal liver. There are surgical clips in the gallbladder fossa consistent with a prior cholecystectomy. The common bile duct measures 1 cm in its distal portion. Normal spleen. Normal pancreas. Normal bilateral adrenal glands. Normal right kidney. Normal left kidney. Postsurgical changes are seen along the lesser curvature of the stomach. Normal small intestine. Normal colon. The appendix is visualized and appears normal. A vascular stent is seen at the origin of the celiac artery and superior mesenteric artery. Scattered atherosclerotic calcification of the abdominal aorta. Normal inferior vena cava. Normal retroperitoneum. Mild degree of diffuse bladder wall thickening. This is more prominent along the right anterior aspect of the bladder. Diffuse prostatic enlargement with indentation at the bladder base. Normal abdominal wall. Normal osseous structures. CT/Abdomen/Pelvis W IV Cont ONLY IMPRESSION: Status post cholecystectomy. The common bile duct measures 1 cm in transverse dimension. Vascular stents seen in the proximal portion of the celiac artery and superior mesenteric artery. Bladder wall thickening more prominent along the anterior right aspect of the bladder. Diffuse prostatic enlargement. Postsurgical changes in the stomach. Electronically Signed: Ramon Miranda MD at 11:36 EDT ,
--- NOTE | 2023-12-30 09:37 | EX.ED.DYSGE1 ---
HPI History of Present Illness Chief Complaint: Abd [facility] Medical History Marijuana use Restless legs History of stress test Liver failure Superior mesenteric artery syndrome Mesenteric ischemia, chronic Wears glasses Arthritis High cholesterol Migraine headache Injury of head and neck History of GI bleed Difficulty swallowing History of ulceration History of IBS History of diverticulitis Smoker Celiac artery stenosis Mesenteric artery stenosis Home Medications ?Medication ?Instructions ?Recorded ?Last Taken ?Type clopidogrel 75 mg tablet 75 mg PO QHS BLOOD THINNER 09/23/16 01/04/23 History rosuvastatin 10 mg tablet 10 mg PO QHS CHOLESTEROL 06/08/18 11/11/22 History aspirin 81 mg tablet,delayed 81 mg PO DAILY HEART HEALTH 11/12/22 01/04/23 History release pantoprazole 20 mg tablet,delayed 20 mg PO QHS ACID REFLUX 11/12/22 11/11/22 History release dicyclomine 10 mg capsule 20 mg (2 x 10 mg) PO Q6H PRN PRN 04/14/23 Unknown Rx abdominal pain #20 CAPSULES oxycodone-acetaminophen 5 mg-325 1 tab PO Q6H PRN PRN Pain 3 days 04/14/23 Unknown Rx mg tablet #12 TABLETS ondansetron 4 mg disintegrating 4 mg PO Q8H PRN PRN Nausea #10 tabs 12/30/23 Unknown Rx tablet Allergy/AdvReac Type Severity Reaction Status Date / Time senna Allergy Anaphylaxis Verified 12/30/23 09:09 omeprazole AdvReac Other Verified 12/30/23 09:09 Family History Father Colon cancer Mother COPD (chronic obstructive pulmonary disease) Lung cancer Concurrent tobacco use history. Surgical History Hx of resection of stomach Hx of myringotomy History of liver biopsy Hx of surgical procedure Hx of colonoscopy Hx of cervical spine surgery History of esophagogastroduodenoscopy (EGD) History of cholecystectomy Social History household members: spouse Smoking Status: Current every day smoker tobacco type: cigarettes how long ago did patient quit smoking: Cut back over 2-3 weeks, down to 3 cig/day 10/09/22. alcohol intake: current alcohol intake frequency: a few times a month details: occasional use substance use type: does not use EXAM Physical Exam Const Vital Signs: 12/30/23 09:09 12/30/23 09:09 12/30/23 10:09 Temperature 97.3 F L Temperature Source Temporal Pulse Rate 97 81 88 Respiratory Rate 24 H 22 H 18 Blood Pressure 200/160 H 220/180 H 160/80 H Blood Pressure Mean 173 193 106 Pulse Ox 99 92 99 Oxygen Delivery Method Room Air Room Air 12/30/23 11:05 12/30/23 13:00 12/30/23 14:00 Temperature Temperature Source Pulse Rate 84 82 Respiratory Rate 16 16 Blood Pressure 130/86 H 128/82 H 130/80 H Blood Pressure Mean 100 97 96 Pulse Ox 99 99 Oxygen Delivery Method 12/30/23 14:13 Temperature 97.9 F Temperature Source Pulse Rate 80 Respiratory Rate 16 Blood Pressure 160/78 H Blood Pressure Mean 105 Pulse Ox 98 Oxygen Delivery Method MDM MDM MDM Narrative Medical decision making narrative: HISTORY OF PRESENT ILLNESS: 63-year-old male presents with abdominal pain and nausea. Notes acute onset of severe diffuse abdominal pain. Notes history of colitis and diverticulosis. Notes this feels differently. States morphine does not help only Dilaudid helps. States no nausea or vomiting. No fever. No trouble urinating. No testicular pain. No trauma. Last bowel movement was yesterday. No melena or hematochezia noted. REVIEW OF SYSTEMS: Pertinent positives: Abdominal pain Pertinent negatives: Fever, urinary complaints, vomiting PHYSICAL EXAM: Nursing triage notes reviewed, Vital signs reviewed Constitutional: please see mdm HENT: MMM Eyes: Pupils equal round and reactive to light, Extraocular muscles intact Neck: No stridor, no JVD, full neck ROM Lungs: Clear to auscultation, No wheezing or rales. No increased work of breathing, no conversational dyspnea, no accessory muscle use, no nasal flaring. No respiratory distress noted Heart: Regular rate and rhythm, No murmurs, No rubs and No gallops, 2+ distal pulses (radial, femoral, posterior tibial) in all extremities Abdomen: Soft, diffusely tender abdomen, but no rigidity, rebound or guarding, no obvious peritoneal signs, no palpable pulsatile abdominal masses, no auscultated abdominal bruit : No CVAT Extremities: No edema Neuro: No focal neurological deficits, cranial nerves II through XII intact, 5/5 strength in all extremities. Intact sensation to light touch in all extremities, 2+ reflexes bilateral patella tendons. Normal gait. No ataxia. Skin: No rash or lesions noted MEDICAL DECISION MAKING: Chief Complaint: Abdominal pain and nausea External records reviewed: Imaging reviewed: CT scan of the abdomen pelvis from October 2023 reviewed and showed the following IMPRESSION: Mild colitis 1. There is mild thickening of the wall of the distal transverse and descending colon compatible with nonspecified colitis. No visualized diverticulosis. No free air or free fluid or bowel dilatation is present. 2. Redemonstration of celiac and SMA stents. Atherosclerotic plaque and narrowing is present at the origins of these vessels, however vascular flow is seen through the stents and distal to these regions. Last colonoscopy in 2022 Factors affecting care: Colitis, history of ulcer disease, history of liver dysfunction, IBS, diverticulosis Social determinants of health: none History obtained from others: none Consults: none MDM Narrative: Patient was initially hypertensive, tachypneic otherwise afebrile I considered the following differential diagnosis: AAA, small bowel obstruction, abdominal perforation, appendicitis, pancreatitis, hepatobiliary pathology (acute cholecystitis), mesenteric ischemia, pathology (ie nephrolithiasis, pyelonephritis). 9:39 AM I treat the patient initially with IV fluids, 1 L of normal saline, 4 mg of IV morphine, 4 mg IV Zofran. ALL IMAGES (IF OBTAINED) HAVE BEEN PERSONALLY REVIEWED AND INTERPRETED BY MYSELF. Lactate is wnl indicating no end-organ hypoperfusion and/or hypoxia. CBC with no leukocytosis or signs of systemic information, no anemia or thrombocytopenia BMP with baseline kidney function, no severe electrolyte abnormalities, no signs of endorgan hypoperfusion metabolic acidosis LFTs show no evidence of hepatobiliary pathology. Lipase is wnl indicating no pancreatic inflammation. CT scan abdomen pelvis shows no evidence of acute mesenteric ischemia, acute surgical intra-abdominal pathology. Repeat abdominal exam noted improved tenderness, soft nonperitoneal abdomen, no obvious peritoneal signs. The synthesis of the patient's history, physical exam, labs images suggest no acute life-limiting etiology. His initial hypertension improved after pain medication. The patient and/or family, caregivers express understanding. The patient and/or family, caregivers agrees with the plan. Shared decision making: I will have a discussion with the patient and or visitors regarding risk/benefits of further testing or admission. They will be made aware of of the risk/benefits inherent in this decision they will be given the opportunity to voice understanding. Total critical care time today provided was at least 0 minutes. This excludes separately billable procedures. Critical care time (if documented) is secondary to the patient having high probability of clinically significant/life threatening deterioration in the patient's condition which required my urgent intervention. Impression: 1. Abdominal pain 2. History of mesenteric artery stents Dispo: Discharge home This note was generated with [employer] dictation software. It may contain incorrect words, spelling, and punctuation that were not noted in review of the chart prior to signing. Lab Data Labs: Laboratory Results - last 24 hr 12/30/23 09:55 WBC 6.9 RBC 5.23 Hgb 12.0 L Hct 38.1 L MCV 72.8 L MCH 22.9 L MCHC 31.5 L RDW Std Deviation 48.2 H RDW Coeff of Rashida 19.2 H Plt Count 240 MPV TNP Immature Gran % (Auto) 1.600 H Neut % (Auto) 65.6 Lymph % (Auto) 19.6 Woodruff % (Auto) 11.0 H Eos % (Auto) 1.3 Baso % (Auto) 0.9 Absolute Neuts (auto) 4.5 Absolute Lymphs (auto) 1.35 Nucleated RBC % 0 Sodium 135 L Potassium 4.0 Chloride 104 Carbon Dioxide 25.0 Anion Gap 6 BUN 17 Creatinine 1.40 H Estim Creat Clear Calc 43.87 Est GFR (MDRD) Af Amer 66 Est GFR (MDRD) Non-Af 55 L BUN/Creatinine Ratio 12.1 Glucose 99 Lactic Acid 1.7 Calcium 9.8 Total Bilirubin 0.60 Direct Bilirubin 0.16 AST 19 ALT 16 Alkaline Phosphatase 148 H Total Protein 7.9 Albumin 4.2 Globulin 3.7 Lipase 20 Radiography Diagnostic Testing: Clinical Impression(s) from Imaging Studies Abdomen/Pelvis CT 12/30/23 09:36 IMPRESSION: Status post cholecystectomy. The common bile duct measures 1 cm in transverse dimension. Vascular stents seen in the proximal portion of the celiac artery and superior mesenteric artery. Bladder wall thickening more prominent along the anterior right aspect of the bladder. Diffuse prostatic enlargement. Postsurgical changes in the stomach. Electronically Signed: Ramon Miranda MD at 11:36 EDT , Discharge Plan Triage Chief Complaint: Abd Pain ED Provider: Elmo Hernandez Dx/Rx/DC Orders Instructions: ED Abdominal Pain Unkn Cause Male... Prescriptions: New ondansetron 4 mg tablet,disintegrating 4 mg PO Q8H PRN PRN (Reason: Nausea) Qty: 10 0RF No Action clopidogrel 75 MG tablet 75 mg PO QHS rosuvastatin 10 MG tablet 10 mg PO QHS aspirin 81 mg Tablet,Delayed Release (Dr/Ec) 81 mg PO DAILY pantoprazole 20 mg tablet,delayed release (DR/EC) 20 mg PO QHS dicyclomine 10 mg capsule 20 mg PO Q6H PRN PRN (Reason: abdominal pain) Qty: 20 0RF oxycodone-acetaminophen [oxycodone-acetaminophen] 5-325 mg tablet 1 tab PO Q6H PRN PRN (Reason: Pain) 3 Days Qty: 12 0RF Primary Care Provider: Richard Dai Referrals: Darryl Alberto MD [Med Staff - Active Staff] - Richard Dai MD [Primary Care Provider] - Activity Restrictions/Additional Instructions: Thank you for trusting us with your care today! Your labs and images were reassuring today. There is no signs of significant intra-abdominal pathology that requires antibiotics, surgery hospitalization or further therapy. Please take Tylenol (2 pills, 650 mg), ibuprofen (2 pills, 400 mg) every 6 hours as needed for pain and fever control. Please return to the emergency department if your symptoms change or worsen. Please follow with your primary care physician for further outpatient evaluation and management. Print Language: Ethiopian Disposition Disposition: Home, Self Care Discharge Date/Time: 12/30/23 14:15
[2023-12-30] MEDS: 0.9% Normal Saline (1000mL) 1,000 ML 999 ML IV (09:51)
[2023-12-30] MEDS: Morphine 4 MG/ML Syringe IV (09:53)
[2023-12-30] MEDS: Ondansetron 4 MG/2 ML Vial IV (09:53)
[2023-12-30] MEDS: HYDROmorphone 0.5 MG/0.5 ML SYRINGE IV (10:08)
[2023-12-30 10:09] VITALS: BP 160/80; PULSE 88; RESP 18; O2SAT 99
[2023-12-30 10:15] LABS: Absolute Lymphocyte Count 1.35 X10^3/uL (0.83-4.51); Absolute Neutrophil Count 4.5 X10^3/uL (2.0-7.7); Basophil# 0.06 X10^3/uL; Basophil% 0.9 % (0-1); Eosinophil# 0.09 X10^3/uL; Eosinophils% 1.3 % (0-5); Hematocrit 38.1 % (40-54); Lymphocyte # 1.35 X10^3/ul (0.83-4.51); Lymphocyte % 19.6 % (19-41); Mean Corp Hgb Conc 31.5 g/dL (32-36); Mean Corpuscular Hgb 22.9 pg (27.0-32.0); Mean Corpuscular Volume 72.8 fL (80-94); Monocyte# 0.76 X10^3/uL; NRBC Flagged by Analyzer 0 % (0-5); Neutrophil # 4.52 X10^3/uL (2.7-7.7); Neutrophil % 65.6 % (47-70); Platelet Count 240 K/mm3 (150-450); RBC Distribution Width CV 19.2 % (11.6-14.6); RBC Distribution Width SD 48.2 fl (35.1-43.9); Red Blood Count 5.23 M/mm3 (4.6-6.2); White Blood Count 6.9 K/mm3 (4.4-11.0)
[2023-12-30 10:55] LABS: AST(SGOT) 19 U/L (15-37); Alanine Aminotransfer ALT/SGPT 16 U/L (16-61); Albumin, Serum 4.2 g/dL (3.2-5.0); Alkaline Phosphatase 148 U/L (45-117); Anion Gap 6 (5-15); BUN 17 mg/dL (7-18); BUN/Creat Ratio 12.1 RATIO (10-20); Bilirubin, Direct 0.16 mg/dL (0.00-0.30); Calcium,Total 9.8 mg/dL (8.5-10.1); Chloride 104 mmol/L (98-107); EST Glomerular Filtration Rate 55 mL/min (>60); Est Glom Filt Rate - Afr Amer 66 mL/min (>60); Estimated Creatinine Clearance 43.87 ml/min; Globulin 3.7 g/dL (2.2-4.2); Glucose 99 mg/dL (74-106); Lipase 20 U/L (13-75); Protein, Total 7.9 g/dL (6.4-8.2); Sodium Level 135 mmol/L (136-145)
[2023-12-30 10:59] LABS: Lactic Acid 1.7 mmol/L (0.4-1.9)
[2023-12-30 11:05] VITALS: BP 130/86
[2023-12-30 13:00] VITALS: BP 128/82; PULSE 84; RESP 16; O2SAT 99
[2023-12-30 14:00] VITALS: BP 130/80; PULSE 82; RESP 16; O2SAT 99
[2023-12-30 14:13] VITALS: BP 160/78; PULSE 80; RESP 16; TEMP 36.6; O2SAT 98
== END 2023-12-30 14:15 | disposition home or self-care (01) ==
PROVIDERS: Emergency Provider Emergency Medicine; PCP Family Medicine; Visit Provider Emergency Medicine
DX: R10.9 Unspecified abdominal pain (principal); E78.00 Pure hypercholesterolemia, unspecified; F17.210 Nicotine dependence, cigarettes, uncomplicated; Z95.828 Presence of other vascular implants and grafts; Z90.49 Acquired absence of other specified parts of digestive tract; Z79.01 Long term (current) use of anticoagulants; Z79.82 Long term (current) use of aspirin; Z80.0 Family history of malignant neoplasm of digestive organs
CPT/HCPCS: 74177; 80048; 80076; 83605; 83690; 85025; 93005; 96361; 96374; 96375; 99283; Q9967; A4216; J2405

== ENCOUNTER 2024-08-05 03:56 | Emergency (ER) | payer OTHER, SELFPAY ==
[2024-08-05 03:57] VITALS: BP 106/64; PULSE 106; RESP 18; TEMP 36.8; O2SAT 97; BMI 16.5
--- NOTE | 2024-08-05 04:09 | EDS_ITS ---
HPI History of Present Illness HPI Narrative: 64-year-old male with atraumatic left hip pain. Says he was feeling fine. No recent illness. Denies any fever or chills. Stood up and he said since he stood up he felt pain in his left hip and groin. No fall, injury or trauma. He has never had surgery to this hip. Denies any numbness or weakness. Denies any back or abdominal pain. 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 On Plavix. Complaining of left hip pain immediately when he stood up. Denies fall injury or trauma. No fever or chills. No redness or discoloration. No prior hip surgery. No prior pain like this in his hip. Denies any other complaints. Prior similar symptoms: No Recent Illness/Hospitalization: No [facility] Medical History Marijuana use Restless legs History of stress test Liver failure Superior mesenteric artery syndrome Mesenteric ischemia, chronic Wears glasses Arthritis High cholesterol Migraine headache Injury of head and neck History of GI bleed Difficulty swallowing History of ulceration History of IBS History of diverticulitis Smoker Celiac artery stenosis Mesenteric artery stenosis Home Medications ?Medication ?Instructions ?Recorded ?Last Taken ?Type clopidogrel 75 mg tablet 75 mg PO QHS BLOOD THINNER 0 09/23/16 01/04/23 History rosuvastatin 10 mg tablet 10 mg PO QHS CHOLESTEROL 11/11/22 History aspirin 81 mg tablet,delayed 81 mg PO DAILY HEART HEAL TH 11/12/22 01/04/23 History release pantoprazole 20 mg tablet,delayed 20 mg PO QHS ACID RE FLUX 11/12/22 11/11/22 History release ondansetron 4 mg disintegrating 4 mg PO Q8H PRN PRN Na usea #10 tabs 12/30/23 Unknown Rx tablet hydrocodone-acetaminophen 5-325mg 1 tab PO Q6H PRN karissa n 5 days #14 08/05/24 Unknown Rx 5mg-325mg tabs hyoscyamine sulfate 0.125 mg tablet 0.125 mg PO Q4H NM N PRN diarrhea 08/05/24 Unknown History Allergy/AdvReac Type Severity Reaction Status Date / Time senna Allergy Anaphylaxis Verified 08/05/24 04:02 omeprazole AdvReac Other Verified 08/05/24 04:02 Family History Father Colon cancer Mother COPD (chronic obstructive pulmonary disease) Lung cancer Concurrent tobacco use history. Surgical History Hx of resection of stomach Hx of myringotomy History of liver biopsy Hx of surgical procedure Hx of colonoscopy Hx of cervical spine surgery History of esophagogastroduodenoscopy (EGD) History of cholecystectomy Social History household members: spouse Smoking Status: Current every day smoker tobacco type: cigarettes how long ago did patient quit smoking: Cut back over 2-3 weeks, down to 3 cig/day 10/09/22. alcohol intake: current alcohol intake frequency: a few times a month details: occasional use substance use type: does not use ROS ROS ED ROS Narrative Denies recent illness. Constitutional Constitutional ED: Denies chills or fever(s) Eyes Eyes: Denies blurry vision ENT ENT ED: Denies ear pain Cardiovascular Cardiovascular: Denies chest pain Respiratory/Chest Respiratory/Chest: Denies cough or dyspnea Gastrointestinal Gastrointestinal: Denies abdominal pain Genitourinary Genitourinary ED: Denies hematuria Musculoskeletal Musculoskeletal: Denies arthralgias, back pain, myalgias or neck pain Integumentary Denies abscess or Abrasions Neurologic Neurologic: Denies headache(s) Psychiatric Psychiatric: Denies anxiety or depression Endocrine Endocrinology: Denies polydipsia Hematologic/Lymphatic Hematologic/Lymphatic: Denies lymphadenopathy Allergic/Immunologic Allergic/Immunologic ED: Denies mouth swelling, tongue swelling or urticaria EXAM Physical Exam Narrative Exam Narrative: Well-appearing 64-year-old male. Vital signs stable afebrile. No family present at this time. Patient sitting upright in bed. Complaining of left hip pain. H EENT exam pupils round react to light. Moist mucous members. Neck nontender no lymphadenopathy. Back nontender. No SI tenderness. Lungs clear to auscultation bilaterally. Heart regular rhythm rate about 105 no murmur. Chest wall and ribs nontender. Abdomen soft nontender. No peritoneal signs. No pulsatile mass. Equal symmetrical femoral pulses. The hips appear symmetrical. He is able to do flexion extension of the left hip. There is no redness, warmth or swelling. He can do flexion extension internal and external rotation. There is no deformity. No shortening. No rotation. Thighs appear normal. Nontender. No deformity. No swelling. No redness or discoloration. No rash. Normal flexion extension of both knees and ankles. Normal DP pulses bilaterally. Normal dorsi plantarflexion. Skin is unremarkable. No bruising or rash. Neurologically is awake and alert. Has normal motor strength and sensation of both lower extremities. Const Vital Signs: 08/05/24 03:57 08/05/24 05:57 08/05/24 07:00 Temperature 98.2 F Temperature Source Oral Pulse Rate 106 H 83 80 Respiratory Rate 18 18 18 Blood Pressure 106/64 139/95 H 129/94 H Blood Pressure Mean 78 109 105 Pulse Ox 97 100 99 Oxygen Delivery Method Room Air Room Air Positive well nourished and well developed; Negative for obese, cachectic, contractures or unkempt General Appearance ED: well developed and NAD; Negative for unkempt, cachectic or contractures Nutritional Appearance: Negative for cachectic or obese HEENT Reports moist mucous membranes normocephalic Eyes PERRL Neck full ROM and supple Thyroid: Negative for tender Lymph Lymphatic: Negative for other Chest Wall inspection of chest normal and palpation of chest normal Resp normal respiratory effort, no retractions and clear to auscultation bilaterally Effort and Inspection: Negative for pain with movement Auscultation: Negative for rales, rhonchi, wheezes or diminished lung sounds Cardio regular rhythm, S1 normal heart sound, S2 normal heart sound and no murmurs; Negative for regular rate Cardio Narrative: Rate about 105. Rate: tachycardic GI non-tender, non-distended and no masses Inspection: Negative for abdominal distention Auscultation: normoactive bowel sounds Palpation: soft; Negative for tender, guarding or rebound tenderness present Back/Spine no CVA tenderness General Back: Negative for CVA tenderness Cervical Spine: Negative for cervical spine tenderness Thoracic Spine / Upper Back: Negative for thoracic spinal tenderness Lumbar Spine / Lower Back: Negative for lumbar spinal tenderness Extremity normal to inspection and full ROM Extremity Narrative: Left hip normal to inspection. Is not red or hot. There is no rash or bruising. He is able to do flexion extension. There is no signs of septic joint. No signs of infection. No signs or history of any type of trauma. No internal or external rotation. Palpable femoral pulse. Groins nontender without lymphadenopathy. He is able to flex and extend both the left knee and normal dorsi plantarflexion with the foot with normal touch sensation and DP pulse. General Extremety ED: Negative for cyanosis, edema or weight-bearing difficulty General Extremity: Negative for cyanosis, edema or weight-bearing difficulty Neuro oriented x3, CN's II-XII intact bilaterally and moves all extremities Sensorium / Orientation: alert, oriented to person, oriented to place and oriented to time; Negative for orientation impaired or confused Motor Exam: strength 5/5 throughout Psych mental status grossly normal Appearance: Negative for unkempt Skin no wounds Rashes: no rashes Trauma: Negative for abrasion or laceration MDM MDM MDM Narrative Medical decision making narrative: 64-year-old male stood up and had immediate left hip pain. No fall or trauma. No fever. Exam of his hips unremarkable. He complains of discomfort but there is no swelling nor discoloration, no rash or bruising. Lower extremities neurovascularly intact. There is no swelling. No edema. No mottling. Normal strength and sensation. X-ray to be obtained. To be treated with morphine for pain. Further evaluation. Repeat exam and 4:50 AM the patient states the morphine has not really helped his pain he states morphine typically does not and he needs Dilaudid. He will be given a dose of Dilaudid. Hip exams unchanged. He is holding it flexed at 90 degrees. He is able to flex and extend it. I again no redness or warmth. No crepitance or subcu air. No bruising. He has flexion, extension internal and external rotation. Normal femoral pulse. Normal DP pulse. Leg is warm. Skin is unremarkable. Normal dorsi plantarflexion of the foot with normal touch sensation. CAT scans being obtained. Repeat exam at 5:53 AM pain is improved with the Dilaudid. Again exam is unchanged. He is able to do flexion and extension. There is no discoloration of the skin. No redness or warmth. No bruising. Awaiting the CAT scan results. He will also be given some Motrin. Repeat exam at 7:15 AM shows no change. Again no redness or warmth. No discoloration or rash. He can do flexion extension. He got up out of bed and stood on his hips without any difficulty. I went over his test results with him. CAT scan was unremarkable. I think he just strained his hip. There is no signs of fracture or dislocation is no signs of fever or infection. He will follow-up. He knows to return if he is worse. He will be given limited hydrocodone for pain. Repeat temperature was 98 2 orally. Radiography Diagnostic Testing: Clinical Impression(s) from Imaging Studies Hip/Pelvis X-Ray 08/05/24 04:20 IMPRESSION: Mild degenerative changes involving the left hip, as described No acute fractures or dislocations are identified. Reading Location[facility] Lower Extremity CT 08/05/24 04:50 IMPRESSION: No acute finding. Mild left hip arthrosis. One or more dose reduction techniques were used (e.g., Automated exposure control, adjustment of the mA and/or kV according to patient size, use of iterative reconstruction technique). Reading Location: [facility] Left hip x-ray with pelvis 3 views interpreted myself shows no acute abnormality. No fracture. No dislocation. No Airgas. No bony abnormalities. Discharge Plan Triage Chief Complaint: Lower Extremity Injury ED Provider: Alexander Hernandez Dx/Rx/DC Orders Clinical Impression: Acute hip pain Instructions: ED Hip Strain Prescriptions: New hydrocodone-acetaminophen 5-325 mg tablet 1 tab PO Q6H PRN (Reason: pain) 5 Days Qty: 14 0RF No Action clopidogrel 75 MG tablet 75 mg PO QHS rosuvastatin 10 MG tablet 10 mg PO QHS aspirin 81 mg Tablet,Delayed Release (Dr/Ec) 81 mg PO DAILY pantoprazole 20 mg tablet,delayed release (DR/EC) 20 mg PO QHS ondansetron 4 mg tablet,disintegrating 4 mg PO Q8H PRN PRN (Reason: Nausea) Qty: 10 0RF hyoscyamine sulfate 0.125 mg tablet 0.125 mg PO Q4H PRN PRN (Reason: diarrhea) Primary Care Provider: Richard Dai Referrals: Richard Dai MD [Primary Care Provider] - 3-5 Days if not improving Activity Restrictions/Additional Instructions: Hydrocodone for pain. May also use Motrin. Ice to your hip. Follow-up with your doctor if not improving. Return immediately to emergency department if you are feeling worse, increasing pain, fever or redness. Both your x-ray and CAT scan of your hip are unremarkable. Print Language: Brazilian Disposition Disposition: Home, Self Care
[2024-08-05] MEDS: morphine 8 MG/ML Syringe IV (04:19)
--- NOTE | 2024-08-05 04:20 | RAD_ITS ---
PROCEDURE: HIP, UNI W/ PELVIS 2-3 VIEWS REASON FOR EXAM: Atraumatic left hip pain TECHNIQUE: Two views of the left hip with PA view of the pelvis COMPARISON: None. FINDINGS: Left hip: Anatomic alignment. There is mild joint space loss. Trabecular markings are preserved. No acute fractures or dislocations are identified. Subtle calcification adjacent to the greater trochanter measuring 5 mm, and could represent tendinous calcification. No bony destructive lesions are seen. Similar-appearing mild joint space loss involving the right hip. Anatomic alignment of the bilateral SI joints and pubic symphysis. Remaining visualized osseous structures appear intact. RAD/HIP, UNI W/ Pelvis 2-3 Views IMPRESSION: Mild degenerative changes involving the left hip, as described No acute fractures or dislocations are identified. Reading Location: [facility]
[2024-08-05] MEDS: Ondansetron 4 MG/2 ML Vial IV (04:21)
--- NOTE | 2024-08-05 04:50 | CT_ITS ---
PROCEDURE: EXTREMITY LOWER WITHOUT CONTRA REASON FOR EXAM: 64-year-old male, stood up and felt pain in left hip and groin. No known injury. TECHNIQUE: Left hip CT without contrast. COMPARISON: Same day left hip radiographs. FINDINGS: Bones: No evidence of fracture. Diffuse osseous demineralization. No aggressive osseous lesions. Joints: Mild left hip arthrosis.. No subluxation or dislocation. Soft Tissues: Unremarkable. No hematoma or subcutaneous edema. Visualized pelvic structures: Vascular calcifications. Dystrophic calcifications within the prostate. The visualized bowel and bladder are unremarkable. CT/Extremity Lower without Contra IMPRESSION: No acute finding. Mild left hip arthrosis. One or more dose reduction techniques were used (e.g., Automated exposure contr ol, adjustment of the mA and/or kV according to patient size, use of iterative reconstruction technique). Reading Location: [id number]
[2024-08-05] MEDS: HYDROmorphone 1 MG/ML Syringe IV (04:58)
[2024-08-05 05:57] VITALS: BP 139/95; PULSE 83; RESP 18; O2SAT 100
[2024-08-05] MEDS: Ibuprofen 600 MG Tablet PO (06:02)
[2024-08-05 07:00] VITALS: BP 129/94; PULSE 80; RESP 18; O2SAT 99
[2024-08-05 07:22] VITALS: BP 129/94; PULSE 76; RESP 18; TEMP 36.6; O2SAT 99
== END 2024-08-05 07:32 | disposition home or self-care (01) ==
PROVIDERS: Emergency Provider Emergency Medicine; PCP Family Medicine; Visit Provider Emergency Medicine
DX: M25.552 Pain in left hip (principal); F17.210 Nicotine dependence, cigarettes, uncomplicated
CPT/HCPCS: 73502; 73700; 96374; 96375; 99282; A4216; J2405

== ENCOUNTER 2024-08-09 20:52 | Emergency (ER) | payer OTHER, SELFPAY ==
[2024-08-09 20:52] VITALS: BP 165/100; PULSE 123; RESP 17; TEMP 36.9; O2SAT 98; BMI 15.0
[2024-08-09 20:56] VITALS: BP 115/87; PULSE 91; RESP 18; TEMP 36.9; O2SAT 99
[2024-08-09 21:19] LABS: Absolute Lymphocyte Count 1.77 X10^3/uL (0.83-4.51); Basophil# 0.07 X10^3/uL; Basophil% 0.8 % (0-1); Eosinophil# 0.06 X10^3/uL; Eosinophils% 0.7 % (0-5); Hematocrit 39.3 % (40-54); Hemoglobin 12.8 g/dL (13.0-16.5); Lymphocyte # 1.77 X10^3/ul (0.83-4.51); Lymphocyte % 19.4 % (19-41); Mean Corp Hgb Conc 32.6 g/dL (32-36); Mean Corpuscular Hgb 23.4 pg (27.0-32.0); Monocyte# 1.21 X10^3/uL; Monocyte% 13.3 % (0-10); NRBC Flagged by Analyzer 0 % (0-5); Neutrophil # 5.97 X10^3/uL (2.7-7.7); Neutrophil % 65.4 % (47-70); POSITIVE MORPHOLOGY YES; Platelet Count 240 K/mm3 (150-450); RBC Distribution Width CV 19.7 % (11.6-14.6); RBC Distribution Width SD 47.7 fl (35.1-43.9); Red Blood Count 5.46 M/mm3 (4.6-6.2); White Blood Count 9.1 K/mm3 (4.4-11.0)
[2024-08-09 21:39] LABS: AST(SGOT) 33 U/L (15-37); Alanine Aminotransfer ALT/SGPT 22 U/L (16-61); Albumin, Serum 3.8 g/dL (3.2-5.0); Alkaline Phosphatase 135 U/L (45-117); Anion Gap 10 (5-15); BUN 19 mg/dL (7-18); BUN/Creat Ratio 17.1 RATIO (10-20); Calcium,Total 9.7 mg/dL (8.5-10.1); Chloride 101 mmol/L (98-107); Creatinine, Serum 1.11 mg/dL (0.70-1.30); EST Glomerular Filtration Rate 71 mL/min (>60); Est Glom Filt Rate - Afr Amer 86 mL/min (>60); Estimated Creatinine Clearance 45.84 ml/min; Glucose 112 mg/dL (74-106); Protein, Total 7.8 g/dL (6.4-8.2); Sodium Level 134 mmol/L (136-145)
--- NOTE | 2024-08-09 21:47 | ED.VIS.GI ---
HPI HPI - GI History of Present Illness Chief Complaint: Abd Pain Informant: patient Narrative Narrative: Patient is a 64-year-old male with history of liver failure, IBS, prior SMA and celiac artery stents, prior rupture of his stomach with partial resection and what sounds like stenosis/stricture of the colon presenting from home for worsening abdominal pain. States he had pain for the past 3 days but it has been intermittent. Became much worse today. States he spoke with his surgeon in [facility], Dr. Baca. Patient states his doctor told him that he needs to go to the ER and told that they need to call him immediately and the patient need to be transferred to [facility]. Patient was told he needs part of his bowel resected. He is had 3-4 bowel movements over the past few days and did have a hard bowel movement today. He is had nausea. Has had decreased oral intake and feels very dehydrated. No show past 2 days he has had continued urination but feels that he ran out of urine today. He denies any vomiting. States this pain feels different than when he needed his SMA/celiac stents. Does not report any fevers. No other complaints or concerns at this time. [facility] Medical History Marijuana use Restless legs History of stress test Liver failure Superior mesenteric artery syndrome Mesenteric ischemia, chronic Wears glasses Arthritis High cholesterol Migraine headache Injury of head and neck History of GI bleed Difficulty swallowing History of ulceration History of IBS History of diverticulitis Smoker Celiac artery stenosis Mesenteric artery stenosis Home Medications ?Medication ?Instructions ?Recorded ?Last Taken ?Type clopidogrel 75 mg tablet 75 mg PO QHS BLOOD THINNER 09/23/16 01/04/23 History rosuvastatin 10 mg tablet 10 mg PO QHS CHOLESTEROL 06/08/18 11/11/22 History aspirin 81 mg tablet,delayed 81 mg PO DAILY HEART HEALTH 11/12/22 01/04/23 History release pantoprazole 20 mg tablet,delayed 20 mg PO QHS ACID REFLUX 11/12/22 11/11/22 History release ondansetron 4 mg disintegrating 4 mg PO Q8H PRN PRN Nausea #10 tabs 12/30/23 Unknown Rx tablet hydrocodone-acetaminophen 5-325mg 1 tab PO Q6H PRN pain 5 days #14 08/05/24 Unknown Rx 5mg-325mg tabs hyoscyamine sulfate 0.125 mg tablet 0.125 mg PO Q4H PRN PRN diarrhea 08/05/24 Unknown History Allergy/AdvReac Type Severity Reaction Status Date / Time senna Allergy Anaphylaxis Verified 08/09/24 20:53 omeprazole AdvReac Other Verified 08/09/24 20:53 Family History Father Colon cancer Mother COPD (chronic obstructive pulmonary disease) Lung cancer Concurrent tobacco use history. Surgical History Hx of resection of stomach Hx of myringotomy History of liver biopsy Hx of surgical procedure Hx of colonoscopy Hx of cervical spine surgery History of esophagogastroduodenoscopy (EGD) History of cholecystectomy Social History household members: spouse Smoking Status: Current every day smoker tobacco type: cigarettes how long ago did patient quit smoking: Cut back over 2-3 weeks, down to 3 cig/day 10/09/22. alcohol intake: current alcohol intake frequency: a few times a month details: occasional use substance use type: does not use ROS ROS ED Constitutional Constitutional ED: Denies chills or fever(s) Respiratory/Chest Respiratory/Chest: Denies cough Gastrointestinal Gastrointestinal: Reports abdominal pain and nausea; Denies constipation, diarrhea or vomiting Genitourinary Genitourinary ED: Reports urinary frequency; Denies dysuria Musculoskeletal Musculoskeletal: Denies arthralgias or myalgias Integumentary Denies rash Neurologic Neurologic: Denies paresthesias or weakness Hematologic/Lymphatic Hematologic/Lymphatic: Reports other Details: on ASA and plavix ; Denies easy bleeding or easy bruising EXAM Physical Exam Const Vital Signs: 08/09/24 20:52 08/09/24 20:56 08/09/24 21:56 Temperature 98.4 F 98.4 F 98.4 F Temperature Source Temporal Oral Oral Pulse Rate 123 H 91 77 Respiratory Rate 17 18 18 Blood Pressure 165/100 H 115/87 H 126/87 H Blood Pressure Mean 121 96 100 Pulse Ox 98 99 97 Oxygen Delivery Method Room Air Room Air Room Air 08/09/24 22:00 08/09/24 23:00 08/10/24 00:00 Temperature 98.4 F Temperature Source Oral Pulse Rate 89 74 69 Respiratory Rate 18 18 18 Blood Pressure 126/87 H 131/74 H 119/86 H Blood Pressure Mean 100 93 97 Pulse Ox 96 96 100 Oxygen Delivery Method Room Air Room Air Room Air 08/10/24 01:00 Temperature Temperature Source Pulse Rate 64 Respiratory Rate 18 Blood Pressure 137/47 H Blood Pressure Mean 77 Pulse Ox 99 Oxygen Delivery Method Room Air Positive well nourished and well developed General Appearance ED: well developed and NAD HEENT Reports moist mucous membranes normocephalic Neck supple Resp normal respiratory effort and clear to auscultation bilaterally Cardio regular rate, regular rhythm and no murmurs Cardio Narrative: 2+ radial and DP pulses present GI GI Narrative: Abdomen is voluntary guarding. Patient rolling around on the bed and difficult to get a good abdominal exam with deep palpation. Patient does not tolerate abdominal exam. No pulsatile mass appreciated. Pain does not seem to localize any particular area on palpation Inspection: Negative for abdominal distention Auscultation: normoactive bowel sounds Palpation: tender and guarding; Negative for hernia Extremity full ROM Neuro moves all extremities Sensorium / Orientation: alert Psych mental status grossly normal and thought process normal Skin no wounds Skin Narrative: Large surgical incision midline upper abdominal wall. MDM MDM MDM Narrative Medical decision making narrative: Patient is evaluated for worsening abdominal pain. Has a history of abdominal surgeries, IBS, marijuana abuse as well as liver disease, prior what sounds like gastric rupture required partial resection and questionable stricture/adhesion of the colon. I did attempt to call patient surgeon as patient states that that is what his surgeon recommended we call when he arrives to arrange for transportation. I initially was only able to speak to surgery on-call, Dr. Lima. She was not aware of the situation. She states if needed we can transfer him appear. Will obtain workup. Differential includes acute mesenteric ischemia, bowel obstruction, incarcerated hernia, volvulus, ALBERT, renal colic, dehydration and electrolyte derangement. CBC, CMP and lactate largely normal. Urinalysis that shows no findings consistent with dehydration with 5-10 hyaline cast and 50 ketones. Is given IV fluids. She given morphine and Zofran for symptom control with only minimal improvement. CTA of the abdomen pelvis does not show any acute process to explain his symptoms. Patient is in redosed with IV Haldol. I then woke with the transfer line and patient was accepted by Dr. Lee, for concern of possible colonic stricture. Patient did have improvement of pain with IV Haldol. Will treat further with IV Pepcid, Ativan and further Zofran as well as fluids. Waiting for transfer at this time. History & Record Review Additional record(s) reviewed:: Prior outpatient record (General surgery note from 07/28/2024-has sigmoid colon stricture and significant abdominal pain. He is uncertain of the cause of the stricture but like to obtain CT enterography to determine if he has no other intrinsic bowel pathology warranting evaluation. Might require intervention.) Lab Data Attestation: I reviewed the patient's lab results. Labs: Laboratory Results - last 24 hr 08/09/24 08/09/24 08/09/24 21:12 22:08 23:04 WBC 9.1 RBC 5.46 Hgb 12.8 L Hct 39.3 L MCV 72.0 L MCH 23.4 L MCHC 32.6 RDW Std Deviation 47.7 H RDW Coeff of Rashida 19.7 H Plt Count 240 MPV TNP Immature Gran % (Auto) 0.400 Neut % (Auto) 65.4 Lymph % (Auto) 19.4 Bailey % (Auto) 13.3 H Eos % (Auto) 0.7 Baso % (Auto) 0.8 Absolute Neuts (auto) 6.0 Absolute Lymphs (auto) 1.77 Nucleated RBC % 0 Platelet Estimate A Sodium 134 L Potassium 4.0 Chloride 101 Carbon Dioxide 24.0 Anion Gap 10 BUN 19 H Creatinine 1.11 Estim Creat Clear Calc 45.84 Est GFR (MDRD) Af Amer 86 Est GFR (MDRD) Non-Af 71 BUN/Creatinine Ratio 17.1 Glucose 112 H Lactic Acid 1.2 Calcium 9.7 Total Bilirubin 0.70 AST 33 ALT 22 Alkaline Phosphatase 135 H Total Protein 7.8 Albumin 3.8 Globulin 4.0 Albumin/Globulin Ratio 1.0 Urine Color Yellow Urine Clarity Sl. Cloudy Urine pH 6.0 Ur Specific [place] 1.020 Urine Protein 30 H Urine Glucose (UA) Normal Urine Ketones 50 H Urine Occult Blood 10 H Urine Nitrite Negative Urine Bilirubin 1 H Urine Urobilinogen 1 H Ur Leukocyte Esterase 25 H Urine RBC 0 SEEN Urine WBC 5-10 SEEN Ur Squamous Epith Cells 0 SEEN Urine Bacteria 1+ Hyaline Casts 5-10 SEEN Fine Granular Casts 0-5 SEEN Urine Mucus 2+ Radiography Diagnostic Testing: Clinical Impression(s) from Imaging Studies Abdomen/Pelvis CTA 08/09/24 22:07 IMPRESSION: 1. No aneurysm, dissection or branch vessel occlusion. Patent celiac and SMA stents. 2. No obstruction or acute inflammatory process. One or more dose reduction techniques were used (e.g., Automated exposure control, adjustment of the mA and/or kV according to patient size, use of iterative reconstruction technique). [facility] T[facility] Chief Complaint: Abd Pain ED Provider: Aspen Mathias Dx/Rx/DC Orders Clinical Impression: Intractable abdominal pain, Colon stricture Prescriptions: No Action clopidogrel 75 MG tablet 75 mg PO QHS rosuvastatin 10 MG tablet 10 mg PO QHS aspirin 81 mg Tablet,Delayed Release (Dr/Ec) 81 mg PO DAILY pantoprazole 20 mg tablet,delayed release (DR/EC) 20 mg PO QHS ondansetron 4 mg tablet,disintegrating 4 mg PO Q8H PRN PRN (Reason: Nausea) Qty: 10 0RF hyoscyamine sulfate 0.125 mg tablet 0.125 mg PO Q4H PRN PRN (Reason: diarrhea) hydrocodone-acetaminophen 5-325 mg tablet 1 tab PO Q6H PRN (Reason: pain) 5 Days Qty: 14 0RF Primary Care Provider: Richard Dai Referrals: Richard Dai MD [Primary Care Provider] - Print Language: [place] Disposition Disposition: Acute Care Hospital Discharge Location: [facility]
[2024-08-09] MEDS: Morphine 4 MG/ML Syringe IV (21:53)
[2024-08-09] MEDS: 0.9% Normal Saline (1000mL) 1,000 ML 999 ML IV (21:53)
[2024-08-09] MEDS: Ondansetron 4 MG/2 ML Vial IV (21:53)
[2024-08-09 21:55] LABS: Differential Indicated SCAN CRITERIA MET; Platelet Estimate A (ADEQ)
[2024-08-09 21:56] VITALS: BP 126/87; PULSE 77; RESP 18; TEMP 36.9; O2SAT 97
[2024-08-09 22:00] VITALS: BP 126/87; PULSE 89; RESP 18; TEMP 36.9; O2SAT 96
--- NOTE | 2024-08-09 22:07 | CT_ITS ---
PROCEDURE: CTA abdomen pelvis REASON FOR EXAM: Pain, stenosis TECHNIQUE: Multiple contiguous axial images through the abdomen and pelvis were obtained after the administration of intravenous contrast. Two-dimensional and three-dimensional MIP coronal and sagittal reformatted images were reconstructed. Low-dose imaging technique was utilized. COMPARISON: 12/30/2023 FINDINGS: Lung bases are clear. Liver, spleen, pancreas and adrenal glands are within normal limits. Gallbladder is surgically absent with expected mild prominence of the biliary ducts. Postsurgical changes of the stomach. Kidneys enhance symmetrically. No suspicious renal mass, calculi or hydronephrosis. Urinary bladder is intact. Underdistended sigmoid colon which somewhat limits its assessment. Sigmoid diverticula. No bowel obstruction, focal bowel wall thickening or significant perienteric inflammation. No pelvic free fluid. No free air or pneumatosis. No abdominal aortic aneurysm, dissection or thrombosis. Celiac and superior mesenteric artery stents which appear patent. No significant renal artery stenosis. Mild multifocal stenosis of the common iliac arteries. No suspicious adenopathy. Superficial soft tissues are within normal limits. No acute osseous abnormality. CT/CTA Abd/Pelvis W/WO Contrast IMPRESSION: 1. No aneurysm, dissection or branch vessel occlusion. Patent celiac and SMA s tents. 2. No obstruction or acute inflammatory process. One or more dose reduction techniques were used (e.g., Automated exposure contr ol, adjustment of the mA and/or kV according to patient size, use of iterative reconstruction technique). Reading Location: [facility]
[2024-08-09 22:47] LABS: Lactic Acid 1.2 mmol/L (0.4-1.9)
[2024-08-09 23:00] VITALS: BP 131/74; PULSE 74; RESP 18; O2SAT 96
[2024-08-09 23:10] LABS: Squamous Epithelial Cells - UA 0 SEEN /hpf (0-5)
[2024-08-09 23:12] LABS: Color, Urine Yellow (Yellow); Glucose, Dipstick Normal (Normal); Ketone-Dipstick 50 mg/dl (Negative); Leukocyte Esterase-Dipstick 25 /ul (Negative); Nitrite-Dipstick Negative (Negative); Occult Blood-Urine 10 /ul (Negative); Protein-Dipstick 30 mg/dl (Negative); Urine Clarity Sl. Cloudy (Clear); Urine Urobilinogen 1 mg/dl (Normal)
[2024-08-09 23:20] LABS: Urine Bilirubin Dipstick 1 mg/dL (Negative)
[2024-08-09 23:35] LABS: Bacteria 1+ /hpf (None Seen); Hyaline Cast 5-10 SEEN /lpf (0-5); Mucous, Urine 2+ /hpf (<or=2+); Red Blood Cells-Urine 0 SEEN /hpf (0-5); White Blood Cells 5-10 SEEN /hpf (0-5)
[2024-08-09 23:36] LABS: Fine Granular Cast- Urine 0-5 SEEN /lpf (0-5)
[2024-08-09] MEDS: Haloperidol Lactate 5 MG/ML Vial 1 MG IV (23:58)
[2024-08-10] VITALS (8 sets, daily range): BP systolic 116–142; BP diastolic 47–93; PULSE 56–69; RESP 12–18; TEMP 36.6; O2SAT 97–100
[2024-08-10] MEDS: Ondansetron 4 MG/2 ML Vial IV (01:23)
[2024-08-10] MEDS: Famotidine 200 MG/20 ML MDV 20 MG in 0.9% Normal Saline (Pres. free 8 ML 300 MG IV (01:23)
[2024-08-10] MEDS: Lorazepam 2 MG/ML WCH Syringe 0.5 MG IV ×2 (01:23→06:15)
--- NOTE | 2024-08-10 01:46 | ED.RN ---
[facility] called with a bed info: Dr. Medeiros, room 5120, ntn # [phone]. called physicians ambulanc to arrange transport, eta is 3-4 hours ([id number]).
--- NOTE | 2024-08-10 02:45 | ED.RN ---
ride time pushed back to 0630.
== END 2024-08-10 07:01 | disposition short-term general hospital (02) ==
PROVIDERS: Emergency Provider Emergency Medicine; PCP Family Medicine; Visit Provider Emergency Medicine
DX: K56.609 Unspecified intestinal obstruction, unspecified as to partial versus complete obstruction (principal); F17.210 Nicotine dependence, cigarettes, uncomplicated
CPT/HCPCS: 74174; 80053; 81001; 83605; 85025; 96361; 96374; 96375; 96376; 99285; Q9967; A4216; J2405

== ENCOUNTER 2024-09-26 12:44 | Emergency (ER) | payer OTHER, SELFPAY ==
[2024-09-26 12:45] VITALS: BP 118/75; PULSE 85; RESP 17; TEMP 36.2; O2SAT 97
--- NOTE | 2024-09-26 13:07 | CT_ITS ---
PROCEDURE: ABDOMEN/PELVIS W IV CONT ONLY 09/26/2024 REASON FOR EXAM: L SIDED ABDOMINAL PAIN History of celiac and superior mesenteric artery stents. Stomach resection. Cholecystectomy. History of liver failure. TECHNIQUE: Abdomen and pelvis CT with intravenous contrast. Coronal and Sagittal reconstruction series were provided. PATIENT PREPARATION: Per protocol ORAL CONTRAST TYPE: None. AMOUNT: mL CONTRAST: Isovue 370 VOLUME: 100 mL IV One or more dose reduction techniques were used (e.g., Automated exposure control, adjustment of the mA and/or kV according to patient size, use of iterative reconstruction technique. RADIATION DOSE SUMMARY: CTDlvol: 9.37 mGy DLP: 256.71 mGycm COMPARISON: CT exam from 11/12 2023 FINDINGS: Lung bases: Lungs are clear. No pleural effusions. Heart size is normal. Liver: Unenlarged. 15 cm in length. Attenuation within normal limits Gallbladder: Cholecystectomy clips are seen in the gallbladder fossa. The spleen, pancreas, adrenals, kidneys and urinary bladder are unremarkable. Reproductive Organs: Mild prostatism Bowel: The gastrointestinal tract is grossly normal caliber and appearance. Appendix: No inflammatory process is appreciated in the right lower quadrant the appendix not definitely identified. Lymph nodes: No lymphadenopathy identified. Vasculature: Metallic mesh stent grafts are seen in the celiac and superior mesenteric arteries. Peritoneum / Retroperitoneum: No free fluid or free air appreciated. Bones: No aggressive bony process. CT/Abdomen/Pelvis W IV Cont ONLY IMPRESSION: No acute process appreciated. Reading [facility]
--- NOTE | 2024-09-26 13:10 | EDS_ITS ---
HPI <STEPHANE Quinteros - Last Filed: 09/26/24 18:26> History of Present Illness Chief Complaint: Abd Pain Narrative Narrative: Patient presenting today with left-sided abdominal pain he has had over the past week that is gradually worsening. He reports a history of similar, attacks that usually occur every few months and subside in a matter of days. He reports that this attack feels worse than usual. Previous abdominal surgeries include a Annie-en-Y and cholecystectomy. He also has a history of SMA and a tortuous colon. He has had dry heaving but no fevers, chills, vomiting, diarrhea, or urinary symptoms. PFSH <STEPHANE Quinteros - Last Filed: 09/26/24 18:26> [facility], LAT[facility] Medical History Marijuana use Restless legs History of stress test Liver failure Superior mesenteric artery syndrome Mesenteric ischemia, chronic Wears glasses Arthritis High cholesterol Migraine headache Injury of head and neck History of GI bleed Difficulty swallowing History of ulceration History of IBS History of diverticulitis Smoker Celiac artery stenosis Mesenteric artery stenosis Home Medications ?Medication ?Instructions ?Recorded ?Last Taken ?Type clopidogrel 75 mg tablet 75 mg PO QHS BLOOD THINNER 0 09/23/16 01/04/23 History rosuvastatin 10 mg tablet 10 mg PO QHS CHOLESTEROL 11/11/22 History aspirin 81 mg tablet,delayed 81 mg PO DAILY HEART HEAL TH 11/12/22 01/04/23 History release pantoprazole 20 mg tablet,delayed 20 mg PO QHS ACID RE FLUX 11/12/22 11/11/22 History release oxycodone 5 mg tablet 5 mg PO TID PRN PRN pain 12/15 Unknown History Allergy/AdvReac Type Severity Reaction Status Date / Time senna Allergy Anaphylaxis Verified 09/26/24 12:48 omeprazole AdvReac Other Verified 09/26/24 12:48 Family History Father Colon cancer Mother COPD (chronic obstructive pulmonary disease) Lung cancer Concurrent tobacco use history. Surgical History Hx of resection of stomach Hx of myringotomy History of liver biopsy Hx of surgical procedure Hx of colonoscopy Hx of cervical spine surgery History of esophagogastroduodenoscopy (EGD) History of cholecystectomy Social History household members: spouse Smoking Status: Current every day smoker tobacco type: cigarettes how long ago did patient quit smoking: Cut back over 2-3 weeks, down to 3 cig/day 10/09/22. alcohol intake: current alcohol intake frequency: a few times a month details: occasional use substance use type: does not use ROS <STEPHANE Quinteros - Last Filed: 09/26/24 18:26> ROS ED Constitutional Constitutional ED: Denies chills or fever(s) Cardiovascular Cardiovascular: Denies chest pain Respiratory/Chest Respiratory/Chest: Denies dyspnea Gastrointestinal Gastrointestinal: Reports abdominal pain and nausea; Denies constipation, diarrhea, melena or vomiting Genitourinary Genitourinary ED: Denies dysuria, hematuria or urinary urgency Musculoskeletal Musculoskeletal: Denies arthralgias or myalgias Integumentary Denies rash Neurologic Neurologic: Denies weakness EXAM <STEPHANE Quinteros - Last Filed: 09/26/24 18:26> Physical Exam Const Vital Signs: 09/26/24 12:45 09/26/24 13:30 09/26/24 14:00 Temperature 97.2 F L Temperature Source Temporal Pulse Rate 85 75 69 Respiratory Rate 17 18 19 H Blood Pressure 118/75 118/76 Blood Pressure Mean 89 90 Pulse Ox 97 100 100 Oxygen Delivery Method Room Air Room Air 09/26/24 14:30 09/26/24 15:00 Temperature Temperature Source Pulse Rate 73 85 Respiratory Rate 21 H 19 H Blood Pressure 120/103 H Blood Pressure Mean 109 Pulse Ox 96 98 Oxygen Delivery Method Positive well nourished, well developed and no apparent distress General Appearance ED: well developed HEENT Reports normocephalic and head/scalp atraumatic Mouth ED: Yes moist mucous membranes normal Eyes PERRL and EOMs intact bilaterally Neck full ROM and supple Chest Wall inspection of chest normal Resp normal respiratory effort and clear to auscultation bilaterally Cardio regular rate and regular rhythm GI soft to palpation, non-distended and no masses GI Narrative: Left-sided abdominal tenderness to palpation, no rigidity or guarding. Back/Spine normal ROM and normal to inspection Extremity normal to inspection and full ROM Neuro oriented x3, CN's II-XII intact bilaterally, moves all extremities, no focal motor deficits and no sensory deficits noted Sensorium / Orientation: awake and alert Psych mental status grossly normal and thought process normal Skin no rashes or lesions noted and no wounds <Dr. Edmund Hubbard DO - Last Filed: 09/27/24 07:07> Physical Exam Const Vital Signs: 09/26/24 12:45 09/26/24 13:30 09/26/24 14:00 Temperature 97.2 F L Temperature Source Temporal Pulse Rate 85 75 69 Respiratory Rate 17 18 19 H Blood Pressure 118/75 118/76 Blood Pressure Mean 89 90 Pulse Ox 97 100 100 Oxygen Delivery Method Room Air Room Air 09/26/24 14:30 09/26/24 15:00 Temperature Temperature Source Pulse Rate 73 85 Respiratory Rate 21 H 19 H Blood Pressure 120/103 H Blood Pressure Mean 109 Pulse Ox 96 98 Oxygen Delivery Method MDM <STEPHANE Quinteros - Last Filed: 09/26/24 18:26> [facility] Narrative Medical decision making narrative: Patient presenting today with left-sided abdominal pain he has had over the past week. He reports that he has gotten into several similar abdominal pain attacks in the past. The last time he was here he was transferred to [facility] due to intractable abdominal pain after being advised by his surgeon to be t ransferred. He had a endoscopy and colonoscopy at that time where they found he has a tortuous colon. He is supposed to be following up with a specialist in [address] scan of the abdomen and pelvis obtained here and is negative for acute findings. His CBC is negative for leukocytosis, hemoglobin 12.5 which is consistent with previous labs. Sodium slightly low at 131, anion gap elevated at 23, alk phos 211. UA shows 150 ketones but negative for UTI. He does appear dry and was given IV fluids. He was originally given IV morphine and Zofran but reports that morphine does not help him and he only gets relief from Dilaudid. He was given 1 dose of Dilaudid. He then asked if I would write him a prescription for Dilaudid, he already has Percocet at home but according to him this is not helping much. I did explain I do not feel comfortable writing him a prescription for Dilaudid and he will need to speak with his PCP about that. He did become upset about this but did calm down. He asked for an additional dose of Dilaudid prior to discharge. Patient discharged in stable condition, recommended close follow-up with PCP and GI doctor. Lab Data Attestation: I reviewed the patient's lab results. Labs: Laboratory Results - last 24 hr 09/26/24 09/26/24 13:13 14:04 WBC 7.7 RBC 5.30 Hgb 12.5 L Hct 38.8 L MCV 73.2 L MCH 23.6 L MCHC 32.2 RDW Std Deviation 48.6 H RDW Coeff of Rashida 18.7 H Plt Count 274 MPV TNP Immature Gran % (Auto) 0.400 Neut % (Auto) 71.8 H Lymph % (Auto) 15.5 L [place] % (Auto) 11.3 H Eos % (Auto) 0.3 Baso % (Auto) 0.7 Absolute Neuts (auto) 5.5 Absolute Lymphs (auto) 1.19 Nucleated RBC % 0 Platelet Estimate A Sodium 131 L Potassium 4.4 Chloride 93 L Carbon Dioxide 14.5 L Anion Gap 23 H BUN 22 H Creatinine 1.17 Estim Creat Clear Calc 43.87 L Est GFR (MDRD) Non-Af 70 BUN/Creatinine Ratio 18.4 Glucose 94 Calcium 9.5 Total Bilirubin 0.41 AST 30 ALT 13 Alkaline Phosphatase 211 H Total Protein 7.9 Albumin 4.4 Globulin 3.4 Albumin/Globulin Ratio 1.3 Lipase 12 L Urine Color Yellow Urine Clarity Clear Urine pH 5.0 Ur Specific [place] 1.015 Urine Protein 15 H Urine Glucose (UA) Normal Urine Ketones 150 A* Urine Occult Blood 10 H Urine Nitrite Negative Urine Bilirubin Negative Urine Urobilinogen Normal Ur Leukocyte Esterase Negative Urine RBC 0-5 SEEN Urine WBC 0 SEEN Ur Squamous Epith Cells 0-5 SEEN Urine Bacteria 1+ Urine Mucus 1+ Radiography Diagnostic Testing: Clinical Impression(s) from Imaging Studies Abdomen/Pelvis CT 09/26/24 13:07 IMPRESSION: No acute process appreciated. Reading Location: [facility]- <Dr. Edmund Hubbard, DO - Last Filed: 09/27/24 07:07> [facility] Lab Data Labs: Laboratory Results - last 24 hr 09/26/24 09/26/24 13:13 14:04 WBC 7.7 RBC 5.30 Hgb 12.5 L Hct 38.8 L MCV 73.2 L MCH 23.6 L MCHC 32.2 RDW Std Deviation 48.6 H RDW Coeff of [place] 18.7 H Plt Count 274 MPV TNP Immature Gran % (Auto) 0.400 Neut % (Auto) 71.8 H Lymph % (Auto) 15.5 L [place] % (Auto) 11.3 H Eos % (Auto) 0.3 Baso % (Auto) 0.7 Absolute Neuts (auto) 5.5 Absolute Lymphs (auto) 1.19 Nucleated RBC % 0 Platelet Estimate A Sodium 131 L Potassium 4.4 Chloride 93 L Carbon Dioxide 14.5 L Anion Gap 23 H BUN 22 H Creatinine 1.17 Estim Creat Clear Calc 43.87 L Est GFR (MDRD) Non-Af 70 BUN/Creatinine Ratio 18.4 Glucose 94 Calcium 9.5 Total Bilirubin 0.41 AST 30 ALT 13 Alkaline Phosphatase 211 H Total Protein 7.9 Albumin 4.4 Globulin 3.4 Albumin/Globulin Ratio 1.3 Lipase 12 L Urine Color Yellow Urine Clarity Clear Urine pH 5.0 Ur Specific [place] 1.015 Urine Protein 15 H Urine Glucose (UA) Normal Urine Ketones 150 A* Urine Occult Blood 10 H Urine Nitrite Negative Urine Bilirubin Negative Urine Urobilinogen Normal Ur Leukocyte Esterase Negative Urine RBC 0-5 SEEN Urine WBC 0 SEEN Ur Squamous Epith Cells 0-5 SEEN Urine Bacteria 1+ Urine Mucus 1+ Radiography Diagnostic Testing: Clinical Impression(s) from Imaging Studies Abdomen/Pelvis CT 09/26/24 13:07 IMPRESSION: No acute process appreciated. Reading [facility] Treatment and Re-Evaluation :: I have personally performed a face to face assessment of the patient and have reviewed the NORMAN Note. I performed a substantive portion of the visit including all aspects of the following. My tan findings include: History: Patient presents with abdominal pain that has been getting worse over the past week. Patient states it is gradually getting worse. Patient describes it as stabbing. Patient states it is mainly over the left side of his abdomen. No patient states he was told he has a torturous colon. Patient admits to some nausea and vomiting. Patient states nothing makes his symptoms better and nothing makes them worse. Patient denies any diarrhea, melena, or hematochezia. Patient admits to some urinary frequency but denies any dysuria or hematuria. Patient denies any fevers or chills. Exam: Vital signs are stable. Patient is afebrile. Patient is in no acute distress. Oral mucosa is pink and moist. Neck is supple. Trachea is midline. There is no JVD. Heart was regular rate and rhythm. Lungs are clear and equal bilaterally. Abdomen is soft. Bowel sounds are normal. There is tenderness over the left upper and lower quadrants. There is no rebound or guarding noted. Cranial nerves II through XII are intact. There are no focal motor or sensory deficits noted. Medical Decision Making: Differential diagnosis includes bowel obstruction, perforation, abscess, diverticulitis, electrolyte abnormality, dehydration, p ancreatitis, and viral illness. CBC will be obtained to assess for leukocytosis and anemia. Comprehensive metabolic profile will be obtained to assess for electrolyte abnormality and renal function. Lipase will be obtained to assess for pancreatitis. Urinalysis will be obtained to assess for urinary tract infection and hematuria. CT scan of the abdomen and pelvis will be obtained to assess for bowel obstruction and perforation. Patient is given IV fluids, morphine, and Zofran. Patient was also given a dose of Reglan. Comprehensive metabolic profile was reviewed. Sodium was slightly low at 131 and chloride was slightly low at 93. CO2 was slightly low at 14.5. BUN was 22 and creatinine was 1.17. Alkaline phosphatase was slightly elevated at 211. Lipase was reviewed and was normal at 12. Urinalysis was reviewed. Urine ketones 150. There is no evidence of urinary tract infection or hematuria. CT scan of the abdomen and pelvis was obtained. There is no evidence of bowel obstruction or perforation. There is no free air or free fluid. There is no evidence of diverticulitis. This was interpreted by the radiologist and was also independently reviewed by myself. CBC was reviewed. There is a slight anemia with a hemoglobin of 12.5 and hematocrit of 38.8. This is consistent with previous results. Patient was advised of his findings. Patient was complaining of persistent pain. Patient was given a dose of Dilaudid. Patient felt better after this. Patient was instructed to follow-up with his primary care physician in 3 to 5 days. Patient was instructed return if worse in any way. Patient understood and was agreeable with the plan. All questions were answered. Discharge Plan Triage Chief Complaint: Abd Pain ED Midlevel Provider: Mandy Quach ED Provider: Edmund Hubbard Dx/Rx/DC Orders Clinical Impression: Abdominal pain, Nausea Instructions: Abdominal Pain, ED Vomiting (Adult) Prescriptions: No Action clopidogrel 75 MG tablet 75 mg PO QHS rosuvastatin 10 MG tablet 10 mg PO QHS aspirin 81 mg Tablet,Delayed Release (Dr/Ec) 81 mg PO DAILY pantoprazole 20 mg tablet,delayed release (DR/EC) 20 mg PO QHS oxycodone 5 mg tablet 5 mg PO TID PRN PRN (Reason: pain) Primary Care Provider: Richard Dai Referrals: Richard Dai MD [Primary Care Provider] - 3-5 Days Activity Restrictions/Additional Instructions: Follow-up with your PCP and return for any worsening symptoms. Print Language: Zambian Disposition Disposition: Home, Self Care Discharge Date/Time: 09/26/24 15:24
[2024-09-26] MEDS: Morphine 4 MG/ML Syringe 6 MG IV (13:13)
[2024-09-26] MEDS: 0.9% Normal Saline (1000mL) 1,000 ML 999 ML IV (13:13)
[2024-09-26] MEDS: Ondansetron 4 MG/2 ML Vial IV (13:13)
[2024-09-26 13:15] VITALS: BMI 15.1
[2024-09-26 13:30] VITALS: BP 118/76; PULSE 75; RESP 18; O2SAT 100
[2024-09-26 13:40] LABS: ALB/GLOB Ratio 1.3 RATIO (0.9-2.4); AST(SGOT) 30 U/L (<=37); Alanine Aminotransfer ALT/SGPT 13 U/L (<=46); Albumin, Serum 4.4 g/dL (3.4-4.8); Alkaline Phosphatase 211 U/L (40-129); Anion Gap 23 (5-15); BUN 22 mg/dL (4-19); BUN/Creat Ratio 18.4 RATIO (10-20); Calcium,Total 9.5 mg/dL (7.6-11.0); Carbon Dioxide 14.5 mmol/L (21.0-32.0); Chloride 93 mmol/L (98-108); Creatinine, Serum 1.17 mg/dL (0.70-1.20); EST Glomerular Filtration Rate 70 (>60); Estimated Creatinine Clearance 43.87 ml/min (50-250); Globulin 3.4 g/dL (2.2-4.2); Glucose 94 mg/dL (70-99); Lipase 12 U/L (13-75); Potassium 4.4 mmol/L (3.3-5.1); Protein, Total 7.9 g/dL (5.9-8.4); Sodium Level 131 mmol/L (133-145); Total Bilirubin 0.41 mg/dL (0.00-1.30)
[2024-09-26 14:00] VITALS: PULSE 69; RESP 19; O2SAT 100
[2024-09-26 14:08] LABS: White Blood Cells 0 SEEN /hpf (0-5)
[2024-09-26 14:12] LABS: Color, Urine Yellow (Yellow); Glucose, Dipstick Normal (Normal); Leukocyte Esterase-Dipstick Negative /ul (Negative); Nitrite-Dipstick Negative (Negative); Occult Blood-Urine 10 /ul (Negative); Protein-Dipstick 15 mg/dl (Negative); Specific Gravity, Urine 1.015 (1.002-1.030); Urine Bilirubin Dipstick Negative (Negative); Urine Clarity Clear (Clear); Urine Urobilinogen Normal (Normal)
[2024-09-26] MEDS: Metoclopramide 10 MG/2 ML Vial 5 MG IV (14:12)
[2024-09-26] MEDS: HYDROmorphone 0.5 MG/0.5 ML SYRINGE IV ×2 (14:12→15:09)
[2024-09-26 14:19] LABS: Ketone-Dipstick 150 mg/dl (Negative)
[2024-09-26 14:20] LABS: Red Blood Cells-Urine 0-5 SEEN /hpf (0-5)
[2024-09-26 14:21] LABS: Bacteria 1+ /hpf (None Seen); Mucous, Urine 1+ /hpf (<or=2+); Squamous Epithelial Cells - UA 0-5 SEEN /hpf (0-5)
--- NOTE | 2024-09-26 14:21 | ED.RN ---
Critical lab value of 150 urine ketones from lab. Physician notified.
[2024-09-26 14:30] VITALS: BP 120/103; PULSE 73; RESP 21; O2SAT 96
[2024-09-26 15:00] VITALS: PULSE 85; RESP 19; O2SAT 98
[2024-09-26 15:59] LABS: Absolute Lymphocyte Count 1.19 X10^3/uL (0.83-4.51); Absolute Neutrophil Count 5.5 X10^3/uL (2.0-7.7); Basophil# 0.05 X10^3/uL; Basophil% 0.7 % (0-1); Eosinophil# 0.02 X10^3/uL; Eosinophils% 0.3 % (0-5); Hematocrit 38.8 % (40-54); Hemoglobin 12.5 g/dL (13.0-16.5); Lymphocyte # 1.19 X10^3/ul (0.83-4.51); Lymphocyte % 15.5 % (19-41); Mean Corp Hgb Conc 32.2 g/dL (32-36); Mean Corpuscular Hgb 23.6 pg (27.0-32.0); Mean Corpuscular Volume 73.2 fL (80-94); Monocyte# 0.87 X10^3/uL; Monocyte% 11.3 % (0-10); NRBC Flagged by Analyzer 0 % (0-5); Neutrophil # 5.53 X10^3/uL (2.7-7.7); Neutrophil % 71.8 % (47-70); POSITIVE MORPHOLOGY YES; Platelet Count 274 K/mm3 (150-450); RBC Distribution Width CV 18.7 % (11.6-14.6); RBC Distribution Width SD 48.6 fl (35.1-43.9); White Blood Count 7.7 K/mm3 (4.4-11.0)
[2024-09-26 16:23] LABS: Differential Indicated SCAN CRITERIA MET
[2024-09-26 16:24] LABS: Platelet Estimate A (ADEQ)
== END 2024-09-26 15:24 | disposition home or self-care (01) ==
PROVIDERS: Physician Assistant; Emergency Provider Emergency Medicine; PCP Family Medicine; Visit Provider Emergency Medicine
DX: R10.12 Left upper quadrant pain (principal); R10.32 Left lower quadrant pain; R11.0 Nausea; E78.00 Pure hypercholesterolemia, unspecified; F17.210 Nicotine dependence, cigarettes, uncomplicated; Z90.49 Acquired absence of other specified parts of digestive tract; Z79.02 Long term (current) use of antithrombotics/antiplatelets; Z79.82 Long term (current) use of aspirin; Z79.899 Other long term (current) drug therapy; Z80.0 Family history of malignant neoplasm of digestive organs
CPT/HCPCS: 74177; 80048; 80053; 81001; 83690; 85025; 96361; 96374; 96375; 96376; 99282; Q9967; A4216; J2405

== ENCOUNTER 2025-03-22 10:37 | Emergency (ER) | payer OTHER, SELFPAY ==
--- OUTSIDE RECORDS SUMMARY | 2025-03-20 10:02 | XMS RPT_ITS ---
Author Name Auto Generated Organization OHIP Support Name Relationship Address Phone ESTRELLA HOFFMAN Next of Kin [address] [place] [address] + ESTRELLA HOFFMAN Next of Moise [address] [place] [address] Unavailable NOT GIVEN Next of Kin Unknown Unavailable ESTRELLA HOFFMAN Next of Kin [address] [place] [address] + ESTRELLA HOFFMAN Next of Kin [address] [place] [address] Unavailable NOT GIVEN Next of Kin Unknown Unavailable ESTRELLA HOFFMAN Next of Kin [address] [place] [address] + ESTRELLA HOFFMAN Next of Kin [address] [place] [id number] Unavailable NOT GIVEN Next of Kin Unknown Unavailable ESTRELLA HOFFMAN Next of Kin [address] [place], [place] [id number] + ESTRELLA HOFFMAN Next of Moise [address] [place] [phone] Unavailable NOT GIVEN Next of Kin Unknown Unavailable ESTRELLA HOFFMAN Next of Kin [address] [place] [address] + ESTRELLA HOFFMAN Next of Kin [address] [place] [address] Unavailable NOT GIVEN Next of Kin Unknown Unavailable Care Team Providers 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 Name Role Phone TAO MEDEIROS Attending Unavailable [facility] Primary Care Unavailable GEORGE CLEMENTS Attending Unavailable GEORGE CLEMENTS Referring Unavailable [facility] Primary Care Unavailable GEORGE CLEMENTS Attending Unavailable TIFFANY GUNTER Referring Unavailable [facility] Primary Care Unavailable ARELY CRUZ Admitting Unavailable ARELY CRUZ Attending Unavailable ARELY CRUZ Referring Unavailable [facility] Primary Care Unavailable TAO MEDEIROS Admitting Unavailable TAO MEDEIROS Attending Unavailable SHELLEY HURST Referring Unavailable [facility] Primary Care Unavailable JEANETTE, MADALYN NORTH Consulting Unavaila ble ISSAK, MADALYN NORTH Attending Unavaila ble ISSAK, ABDULFATAH CAN Referring Unavaila ble [facility] Primary Care Unavailable GEORGE CLEMENTS Attending Unavailable [facility] Primary Care Unavailable [facility] Primary Care Unavailable TAO MEDEIROS Attending Unavailable GEORGE CLEMENTS Referring Unavailable [facility] Primary Care Unavailable CHRISTOPHER DUMONT Attending Unavailable [facility] Primary Care Unavailable JESUS CROFT Attending Unavailable RICHARD ANDRES Referring Unavailable [facility] Primary Care Unavailable RICHARD ANDRES Attending Unavailable [facility] Primary Care Unavailable SHANTA RICHARDSON Referring Unavailable [facility] Primary Care Unavailable SHANTA RICHARDSON Attending Unavailable [facility] Primary Care Unavailable [facility] Primary Care Unavailable DARVIN GARCIA Attending Unavailable TAO MEDEIROS Referring Unavailable [facility] Primary Care Unavailable TAO MEDEIROS Referring Unavailable [facility] Primary Care Unavailable SHANTA RICHARDSON Attending Unavailable [facility] Primary Care Unavailable JESUS CROFT Admitting Unavailable JESUS CROFT Attending Unavailable [facility] Primary Care Unavailable [facility] Primary Care Unavailable BRAULIO, RICHARD Consulting Unavailable JOSE SAHA R Admitting Unavailable SAHAJOSE R Attending Unavailable SAHAJOSE MARIN R Primary Care Unavailable PROVIDER, UNKNOWN Consulting Unavailable PROVIDER, UNKNOWN Consulting Unavailable PROVIDER, UNKNOWN Consulting Unavailable BRAULIO, RICHARD Admitting Unavailable BRAULIO RICHARD Attending Unavailable BRAULIO, RICHARD Consulting Unavailable [facility] Primary Care Unavailable PROVIDER, UNKNOWN Consulting Unavailable PROVIDER, UNKNOWN Consulting Unavailable PROVIDER, UNKNOWN Consulting Unavailable BRAULIO, RICHARD Admitting Unavailable RBAULIO, RICHARD Attending Unavailable BRAULIO, RICHARD Consulting Unavailable [facility] Primary Care Unavailable PROVIDER, UNKNOWN Consulting Unavailable PROVIDER, UNKNOWN Consulting Unavailable PROVIDER, UNKNOWN Consulting Unavailable REECE SANDERS Admitting Unavailable BRAULIO, RICHARD Referring Unavailable BRAULIO, RICHARD Consulting Unavailable LEMREECE AZEVEDO Attending Unavailable LEMREECE AZEVEDO Primary Care Unavailable PROVIDER, UNKNOWN Consulting Unavailable PROVIDER, UNKNOWN Consulting Unavailable PROVIDER, UNKNOWN Consulting Unavailable BRAULIO, RICHARD Referring Unavailable BRAULIO, RICHARD Consulting Unavailable COVERDALE, PAOLA RODAS Admitting Unavailable COVERDABRITNEY, PAOLA RODAS Attending Unavailable COVERDAPAOLA TAN MD Primary Care Unavailable PROVIDER, UNKNOWN Consulting Unavailable PROVIDER, UNKNOWN Consulting Unavailable PROVIDER, UNKNOWN Consulting Unavailable PROBLEMS DATE TYPE CONDITION / CODE ATTENDING STATUS [facility] 01/13/2023 Active Chronic abdomina l pain / R10.9(ICD-10) MAURIZIO JESUS Active [facility] 01/13/2023 Active Chronic abdomina l pain / G89.29(ICD-10) JESUS CROFT Active [facility] 08/26/2018 Active Chronic mesenter ic ischemia (HCC) / K55.1(ICD-10) JESUS CROFT Active [facility] 12/06/2024 Active Abdominal wall p ain / R10.9(ICD-10) JESUS CROFT Active [facility] 12/03/2024 Active Dyspepsia / R10.13(ICD-10) RICHARD ANDRES Active [facility] 10/29/2024 Active Mesenteric arter y stenosis (HCC) / K55.1(ICD-10) NA [facility] 05/18/2024 Active Lower abdominal pain / R10.30(ICD-10) TAO MEDEIROS [facility] 08/10/2024 Active Colonic strictur e (HCC) / K56.699(ICD-10) TAO MEDEIROS [facility] 05/18/2024 Active Abdominal pain, unspecified abdominal location / R10.9(ICD-10) TAO MEDEIROS [facility] 07/28/2024 Active Inflammatory bow el disease / K52.9(ICD-10) TAO MEDEIROS [facility] 05/18/2024 Active Abdominal Pain / UNK(Unknown) NA [facility] 05/18/2024 Active Diarrhea, unspec ified type / R19.7(ICD-10) GEORGE CLEMENTS [facility] 05/18/2024 Active LLQ pain / R10.32(ICD-10) GEORGE CLEMENTS [facility] PROCEDURES No Procedure Records Found RESULTS CNPN Observed: 03/23/2025 12:00 AM Status: COMPLETED Source: [facility] Telephone (PAINMN) RAJENDRA HOFFMAN ([id number]) 1960 M Date Time Provider Department 03/23/25 JULEE SOTO PAINMN During your visit today, we recorded the following information about you: Julee Soto APRN.ANDI 03/23/2025 1:08 PM Signed Patient left Kimani a voicemail saying he's in increased pain. Dr. Croft saw message and responds: Unfortunately, my schedule is packed (Dr. Croft cannot see patient any sooner for injection). For agonizing pain in the context of mesenteric ischemia, he may need to go to the ED or see his vascular specialist. Thanks! Sirisha Jain RN 03/23/2025 1:28 PM Signed Voicemail left for patient to return call. JERILYN Rosales Catherine, RN 03/23/2025 1:44 PM Signed Patient notified of provider recommendations. Verbalized understanding. Sirisha Jain RN Allergies As of Date: 03/23/2025 Noted Allergy Reaction OMEPRAZOLE 05/26/2015 14 - Other: See Comments Comments: Severe Headaches SENNA 02/09/2023 16 - Unknown Comments: Bottom lip swelled. Stopped swelling when senna dc Date Reviewed: 03/04/2025 Reviewed by: Christopher Dumont APRN.PLANT HEALTH MANAGER - Fully Assessed Prescriptions as of 03/23/2025 - acetaminophen 325 mg-caffeine 40 mg-butalbital 50 mg (FIORICET) per tablet Take 1 tablet by mouth every 4 hours as needed for headache. - ondansetron orally disintegrating (ZOFRAN ODT) 8 mg disintegrating tablet - pantoprazole DR (PROTONIX) 20 mg tablet Take 20 mg by mouth once daily. - clopidogrel (PLAVIX) 75 mg tablet Take 75 mg by mouth once daily. - rosuvastatin (CRESTOR) 10 mg tablet Take 1 tablet by mouth daily at bedtime. - aspirin 81 mg chewable tablet Take 1 tablet by mouth once daily. 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] 03/27/2009 Median arcuate ligament syndrome (HCC) [I77.4] 09/16/2016 Epigastric pain [R10.13] 09/16/2016 Severe protein-calorie malnutrition (HCC) [E43] 09/16/2016 History of cholangitis [Z87.19] 09/16/2016 Lower abdominal pain [R10.30] 06/27/2017 Chronic mesenteric ischemia (HCC) [K55.1] 06/26/2017 Nicotine use disorder, F17.2 [F17.200] 06/27/2017 Polycythemia [D75.1] 08/24/2018 Gastroesophageal reflux disease without esophag*08/24/2018 Duodenitis [K29.80] 01/13/2023 Gastric ulcer [K25.9] 01/13/2023 Irritable bowel syndrome [K58.9] 01/13/2023 S/P arterial stent [Z95.9] 01/13/2023 Chronic abdominal pain [R10.9, G89.29] 01/13/2023 Atherosclerosis of superior mesenteric artery (*01/16/2023 Gastritis and gastroduodenitis [K29.70, K29.90] 01/17/2023 Acute post-operative pain [G89.18] 01/31/2023 Neck pain, chronic [M54.2, G89.29] 01/31/2023 Encounter for palliative care involving managem*01/31/2023 Encounter for pain management [R52] 01/31/2023 S/P partial gastrectomy [Z90.3] 02/10/2023 Degenerative disc disease, cervical [M50.30] 02/10/2023 Nausea and vomiting [R11.2] 02/10/2023 Gastrointestinal hemorrhage [K92.2] 02/11/2023 Mesenteric ischemia (HCC) [K55.9] 02/11/2023 Abdominal pain [R10.9] 05/18/2024 Colonic stricture (HCC) [K56.699] 08/10/2024 Encounter Status:Closed by JULEE SOTO on 03/23/25 CT ABDOMEN/PELVIS WO Observed: 10:46 AM Status: F Source: [address] ? [place], [place] [address] ? Patient: RAJENDRA HOFFMAN Phone#: : 1960 Age: 64 Gender: M Pt. Type: ER Account: [id number] Location: 2 Ordering: DR. PAOLA THOMPSON Exam Date: 03/20/2025/10:37 Family Phys: RICHARD RAMSEY Charge Code: [id number] Physician: [place] Order #: [id number] Dose#: 4.5 mGy PROCEDURE: CT ABDOMEN/PELVIS WITHOUT CONTRAST COMPARISON: [facility], CT, ABDOMEN/PELVIS W CON, 08/23/2022, 17:42. INDICATIONS: Abdominal pain. TECHNIQUE: CT images were created without intravenous contrast. All CT scans at this facility use dose modulation, iterative reconstruction, and/or weight based dosing when appropriate to reduce radiation dose to as low as reasonably achievable. IV CONTRAST: No IV contrast used,0ml TOTAL DOSE: 4.5 CTDIvol(mGy) FINDINGS: LIVER: Calcifications at inferior hepatic margin of questionable etiology. No enlargement, atrophy, abnormal density, or significant focal lesion. BILIARY: The gallbladder is absent. Surgical clips are present in the gallbladder fossa. The common bile duct is 7 millimeters in diameter. PANCREAS: Normal. No lesion, fluid collection, ductal dilatation, or atrophy. SPLEEN: Normal. No enlargement or focal lesion. KIDNEYS: Normal. No mass, obstruction, or calcification. ADRENALS: Normal. No mass or enlargement. AORTA/VASCULAR: Dense aortic calcification is present. Superior mesenteric artery and celiac arteries stents present. RETROPERITONEUM: Normal. No mass or adenopathy. BOWEL/MESENTERY: Moderate stool retention is present. Surgical suture is present at the gastric body. ABDOMINAL WALL: Normal. No mass or hernia. URINARY BLADDER: There is thickening the bladder wall versus under filling. PELVIC NODES: Normal. No adenopathy. PELVIC ORGANS: Normal. No visible mass. Pelvic organs appropriate for patient age. BONES: Normal. No bony lesion or fracture. LUNG BASES: Normal. No visible pulmonary or pleural disease. OTHER: Negative. Continued Report - Page 2 of 2 Patient: RAJENDRA HOFFMAN Phone#: : 1960 Age: 64 Gender: M Pt. Type: ER Account: [id number] Location: 052 Ordering: DR. PAOLA THOMPSON Exam Date: 03/20/2025/10:37 Family Phys: RICHARD RAMSEY Charge Code: [id number] Physician: [place] Order #: [id number] Dose#: 4.5 mGy CONCLUSION: 1. Exam is limited by lack of contrast. 2. There is a 15 millimeter hypodense focus with associated calcification at the inferior margin of the left hepatic lobe of questionable origin. Similar finding is not present on prior exam. 3. Diverticulosis. Inflammatory changes are not identified. 4. Surgical suture is present at the gastric body. 5. Cholecystectomy. 6. Thickening of the urinary bladder versus under filling. Correlate with cystitis. 7. Vascular stents are present. Dictated by: Tri Theodore MD on 03/20/2025 at 10:55 Approved by: Tri Theodore MD on 03/20/2025 at 11:07 LACTATE Collected: 10:22 AM Status: F Source: [facility] TYPE CODE TESTS RESULT OUT OF RANGE REFERENCE UNITS LAB LACTATE(LOINC) LACTATE 3.3 High 0.4 - 2.0 mmol/L Result Comment: RESULTS VERI FIED BY REPEAT ANALYSIS LACTATE 3 HR NOTIFIED TO: _ERIN 03/20/25.1108.KG . . . LACTATE 3 HR NOTIFIED BY: _KG 03/20/25.1108.KG . . . Performed By: #### [id number] ## ## [facility],[address] [place] [address] CBC + DIFF Collected: 5 10:03 AM Status: F Source: [facility] TYPE CODE TESTS RESULT OUT OF RANGE REFERENCE UNITS LAB CBC + DIFF(LOINC) CBC + DIFF Result Comment: CBC-COMPLETE BLOOD COUNT LAB WBC(LOINC) WBC 14.7 High 4.5 - 10.8 x 10EE3/UL LAB RBC(INC) RBC 5.67 4.50 - 6.00 x 10EE6/UL LAB HEMOGLOBIN([facility]) HEMOGLOBIN 13.3 13.0 - 17.5 g/dl LAB HEMATOCRIT([facility]) HEMATOCRIT 39.4 Low 40.0 - 52.0 % LAB MCV([facility]) MCV 70 Low 81 - 98 fl LAB MCH([facility]) MCH 23 Low 27 - 33 pg LAB MCHC([facility]) MCHC 34 32 - 36 X10 3 LAB RDW/CV([facility]) RDW/CV 20.1 High 12.0 - 15.6 % LAB PLATELET([facility] ) PLATELET 341 150 - 450 x10EE3/UL LAB MPV([facility]) MPV 10.6 High 6.4 - 10.5 fl Result Comment: AUTOMATED DI FFERENTIAL LAB NEUT %(LOINC) NEUT % 75.9 46.0 - 76.0 % LAB LYMPH %(LOINC) LYMPH % 13.9 Low 20.0 - 45.0 % LAB MONOS %(LOINC) MONOS % 9.3 0.0 - 10.0 % LAB EO %(LOINC) EO % 0.6 0.0 - 7.0 % LAB BASO %(LOINC) BASO % 0.3 0.0 - 2.0 % LAB Lymph #(LOINC) Lymph # 2.05 0.80 - 2.80 x10EE 3/UL LAB Neut #(LOINC) Neut # 11.19 High 1.50 - 7.10 x10EE3 /UL LAB [place] #(LOINC) [place] # 1.36 High 0.20 - 1.00 x10EE3 /UL LAB EO #(LOINC) EO # 0.09 0.00 - 0.50 x10EE3/U L LAB Baso #(LOINC) Baso # 0.05 0.00 - 0.10 x10EE3 /UL LAB MANUAL DIFF(LOINC) MANUAL DIFF SEE BELOW LAB BANDS(LOINC) BANDS 1 0 - 5 % LAB SEGS(LOINC) SEGS 74 46 - 76 % Result Comment: 1+ TOXIC GRA NULATION LAB LYMPH(LOINC) LYMPH 12 Low 20 - 45 % LAB MONOS(LOINC) MONOS 10 0 - 10 % LAB ATY LYMP(LOINC) ATY LYMP 3 % LAB CELL COUNT(LOINC) CELL COUNT 100 LAB MORPHOLOGY([facility]) MORPHOLOGY SEE BELOW LAB PLT EST(LOINC) PLT EST NORMAL LAB ANISO(LOINC) ANISO 1+ LAB MICROCYTES([facility]) MICROCYTES 1+ LAB HYPOCHROM(LOIN C) HYPOCHROM 1+ Performed By: #### [id number] ## ## [place] [id number] LIPASE Collected: 5 10:03 AM Status: F Source: [facility] TYPE CODE TESTS RESULT OUT OF RANGE REFERENCE UNITS LAB LIPASE(LOINC) LIPASE 10.0 Low 15.0 - 78.0 U/L Result Comment: *PLEASE NOTE THAT RANGES FOR LIPASE HAVE CHANGED OF 06/20/23 DUE TO AN ASSAY UPDATE BY THE MANUAL WRITER.THE NEW ASSAY RANGE IS 6-250 U/L, WITH A REFERENCE RANGE OF 16-77 U/L. Performed By: #### [id number] ## ## [place] [address] TROPONIN Collected: 5 10:03 AM Status: F Source: [facility] TYPE CODE TESTS RESULT OUT OF RANGE REFERENCE UNITS LAB HS TROPONIN(INC) HS TROPONIN 7.1 0.0 - 76.2 pg/mL Performed By: #### [id number] ## ## [place] [address] CMP WITH EGFR Collected: 5 10:03 AM Status: F Source: [facility] TYPE CODE TESTS RESULT OUT OF RANGE REFERENCE UNITS LAB CMP with eGFR(LOINC) CMP with eGFR Result Comment: COMPREHENSIV E METABOLIC PANEL LAB SODIUM(LOINC) SODIUM 133 Low 136 - 145 mmol/l LAB POTASSIUM(LOIN C) POTASSIUM 3.9 3.5 - 5.1 mmol/L LAB CHLORIDE(LOINC ) CHLORIDE 97 Low 98 - 107 mmol/L LAB CO2(LOINC) CO2 24.1 21.0 - 32.0 mmol/L LAB GLUCOSE(LOINC) GLUCOSE 88 74 - 106 mg/dl LAB BUN(LOINC) BUN 21 High 7 - 18 mg/dl LAB CREATININE([facility]) CREATININE 1.42 High 0.70 - 1.30 mg/dl LAB AST/SGOT(LOINC ) AST/SGOT 20 15 - 37 U/L LAB ALK PHOS(LOINC) ALK PHOS 253 High 46 - 116 U/L LAB CALCIUM(LOINC) CALCIUM 9.4 8.5 - 10.1 mg/dl LAB TOTAL PROTEIN(LOINC) TOTAL PROTEIN 7.8 6.4 - 8.2 g/dl LAB ALBUMIN(LOINC) ALBUMIN 3.7 3.4 - 5.0 g/dL LAB GLOBULIN(LOINC ) GLOBULIN 4.1 High 1.5 - 3.8 G/DL LAB A/G RATIO(LOINC) A/G RATIO 0.9 0.9 - 1.6 LAB TOTAL BILI(LOINC) TOTAL BILI 0.6 0.2 - 1.0 mg/dl LAB B/C RATIO(LOINC) B/C RATIO 15 0 - 30 ratio LAB ALT/SGPT(LOINC ) ALT/SGPT 26 16 - 63 U/L LAB ANION GAP(LOINC) ANION GAP 16 10 - 20 mmol/L LAB AGE(LOINC) AGE 64 years LAB eGFR(LOINC) eGFR 50 Low 60 - 999 ML/MINUT E LAB eGFR(AA)(LOINC ) eGFR(AA) >60 60 - 999 ML/MINUT E Result Comment: ACCORDING TO THE NATIONAL KIDNEY DISEASE EDUCATION PROGRAM(NKDE), A NORMAL eGFR IS A VALUE GREATER THAN OR EQUAL TO 60 ML/MIN/1.73 SQ METERS. CHRONIC KIDNEY DISEASE: <60mL/MIN/1.73 SQ METERS KIDNEY FAILURE: <15mL/MIN/1.73 SQ METERS THIS TEST SHOULD ONLY BE USED FOR PATIENTS 18 YEARS OF AGE AND OLDER. Performed By: #### [id number] ## ## [facility],[address] [place] [address] PROGRESS Observed: 03/04/2025 7:34 AM Status: COMPLETED Source: [facility] HNO ID: [id number] Author: CHRISTOPHER DUMONT APRN.ANDI Service: ? Author Type: Nurse Practitioner Type: Progress Notes Filed: 03/04/2025 08:37 Note Text: [facility] Virtual Video Encounter Evaluation Rajendra Hoffman consented to the encounter being held via Zoom Christopher Dumont APRN.PLANT HEALTH MANAGER and Rajendra Hoffman present during telemedicine encounter This is a virtual visit using [employer] Zoom Video Visit. It required patient-provider interaction for the medical decision making as documented below. I have confirmed you are in [place] today, and check in to confirm your consent to be seen virtually. I have communicated my name and active licensure. The patient?s identity and physical location were verified at the time of this visit. The patient has been informed of the risks and benefits of -- and alternatives to -- treatment through a remote evaluation and consents to proceed with the evaluation remotely. Date: March 04, 2025 - 7:34 AM Chief Complaint: Chronic pain Last Annual Visit: 12/06/24 SUBJECTIVE: Rajendra Hoffman is a 64 year old who presents to [facility] Pain Management Department for a follow up appointment. The plan from the last visit on 01/05/25 was: 1) s/p bilateral thoracic paravertebral block at T9 2) RTC as needed for repeat injection if your pain returns 3) The treatment plan was discussed with Mr. Hoffman. Post procedure instructions were reviewed and he voiced understanding. Since the last visit: Abdominal Pain: - Rajendra Hoffman reports intermittent, severe abdominal pain described as stabbing and incapacitating, occurring in the upper abdomen. - Pain episodes are associated with bowel movements and improve post-evacuation. - Pain is alleviated by lying on the right side. - Denies associated nausea or emesis recently but has previously experienced chronic nausea with this pain. - Pain episodes occur multiple times per day or some days not at all. He has been typically experiencing these flares a few times per week - Rajendra has received Bilateral Thoracic Paravertebral Block last done 01/05/25 with significant relief, at least 80% for 6 weeks post-injection with much improved quality of life. - Scheduled for next injection on April 18; seeking earlier appointment due to recurrence of severe pain affecting his quality of life. - Denies relief from OTC analgesics/Tylenol; unable to use NSAIDS, has used various pain medications in the past. OARRS: Reviewed: The patient's OARRS report was reviewed and is consistent with the reported medication use. Patient Entered Questionnaires PROMIS Score Percentiles 10/06/2024 03/02/2025 PROMIS Global Health Scale Physical Health Percentile 15 1 Mental Health Percentile 1 2 12/04/2024 03/02/2025 Physical Health Physical Function Percentile 1 7 Pain Interference Percentile 0 1 Percentiles provide an indication of how the patient's score ranks in relation to the general population. Higher percentile rankings indicate better function/quality of life. 50th percentile is the average of the general population and indicates half of respondents had a worse score. > 31st percentile is within normal limits or better * < 31st percentile is at least ? SD worse than population, which may be clinically relevant < 16th percentile is at least 1 SD worse than population and warrants attention Current Outpatient Medications: Current Outpatient Medications Medication Sig mirtazapine (REMERON) 15 mg tablet Take 1 tablet by mouth daily at bedtime. oxyCODONE-acetaminophen (PERCOCET) 5-325 mg tablet Take 1 tablet by mouth every 8 hours as needed for pain. acetaminophen 325 mg-caffeine 40 mg-butalbital 50 mg (FIORICET) per tablet Take 1 tablet by mouth every 4 hours as needed for headache. ondansetron orally disintegrating (ZOFRAN ODT) 8 mg disintegrating tablet pantoprazole DR (PROTONIX) 20 mg tablet Take 20 mg by mouth once daily. clopidogrel (PLAVIX) 75 mg tablet Take 75 mg by mouth once daily. rosuvastatin (CRESTOR) 10 mg tablet Take 1 tablet by mouth daily at bedtime. aspirin 81 mg chewable tablet Take 1 tablet by mouth once daily. No current facility-administered medications for this visit. New Imaging and Diagnostic Studies: Yes 10/26/24 Mesenteric Artery Non-Invasive Vascular Laboratory [facility] Renal or Mesenteric Duplex Bilateral/Complete Date of service/time: 10/26/2024 8:11:22 AM Name: MR. RAJENDRA HOFFMAN Date of : 1960 Age: 64 years Gender: M Clinical Indication Atherosclerosis-other specified arteries. TECHNIQUE -------- A visceral duplex ultrasound examination was performed, including grayscale imaging and color Doppler and spectral Doppler examination of the below mentioned arteries and veins. FINDINGS -------- Aorta proximal PSV: 66 cm/s. EDV: 15 cm/s. Aorta at renals PSV: 57 cm/s. EDV: 19 cm/s. Aorta mid PSV: 55 cm/s. EDV: 0 cm/s. Aorta distal PSV: 64 cm/s. EDV: 0 cm/s. Celiac origin PSV: 120 cm/s. EDV: 21 cm/s. Celiac proximal PSV: 176 cm/s. EDV: 36 cm/s. Celiac mid PSV: 235 cm/s. EDV: 53 cm/s. Celiac distal PSV: 135 cm/s. EDV: 35 cm/s. Hepatic proximal PSV: 76 cm/s. EDV: 21 cm/s. Splenic proximal PSV: 113 cm/s. EDV: 31 cm/s. Superior mesenteric artery origin PSV: 132 cm/s. EDV: 38 cm/s. Superior mesenteric artery proximal PSV: 325 cm/s. EDV: 92 cm/s. Superior mesenteric artery mid PSV: 247 cm/s. EDV: 69 cm/s. Superior mesenteric artery distal PSV: 128 cm/s. EDV: 43 cm/s. Inferior mesenteric artery origin PSV: 551 cm/s. EDV: 141 cm/s. Inferior mesenteric artery proximal PSV: 95 cm/s. EDV: 12 cm/s. Inferior mesenteric artery mid PSV: 114 cm/s. EDV: 25 cm/s. IMPRESSION Compared to prior study of 05/11/2024, No significant change. AORTA Patent. Aorta plaque noted without evidence of hemodynamically significant stenosis throughout MESENTERIC VESSELS Celiac: 0-69% stenosis. No evidence of hemodynamically significant stenosis. Stent noted. Hepatic: Patent. Splenic: Patent. Superior mesenteric artery: 70-99% stenosis. Stent noted. In-stent stenosis. Inferior mesenteric artery: 70-99% stenosis. Technologist: Dariana Herring BA, RVT Ordering physician: SHANTA RICHARDSON Interpreting physician: TO Avina MD SSMENT/PLAN: 1. Chronic abdominal pain (R10.9) 2. Abdominal wall pain (R10.9) - Intermittent, severe abdominal pain with prior relief from prior Bilateral Thoracic Paravertebral Block last performed 01/05/25. Patient reports receiving 80% relief with much improved quality of life during that time -Over the past few weeks experiencing severe flares and is hopeful to be able to come in sooner for repeat injection, currently scheduled with Dr. Croft on 04/18/25 - Will Coordinate with sand caster to identify if earlier appointment is available for repeat injection; also will request to place patient on cancellation list if nothing sooner or no other available provider. - Patient requesting possible referral for future for someone that can perform the injections closer to his home in [place], advised patient to search for pain management clinics within the [facility] system or contact insurance for covered options near him; explained that a release of care from Dr. Croft would be required to switch pain providers if within [facility]. 3. Chronic mesenteric ischemia (HCC) (K55.1) - History of mesenteric artery stents; continue current management. The above plan and management options were discussed at length with patient. The patient is in agreement with the above and verbalized understanding. Total time spent on telephone discussion including documentation: 30 minutes Some element copied from prior visit note, which have been updated where appropriate, and all reflect my current medical decision making from today Recording using [employer] software for draft documentation of the visit was discussed with the patient/authorized auto service representative; all questions welcomed and answered. Patient/authorized auto service representative agreed to proceed Christopher Dumont APRN.ANDI March 04, 2025 ANDIN Observed: 02/09/2025 12:00 AM Status: COMPLETED Source: [facility] Telephone (VASAVERYD) RAJENDRA HOFFMAN ([id number]) 1960 M Date Time Provider Department 02/09/25 SHANTA RICHARDSON During your visit today, we recorded the following information about you: Maria C Hutton, AKASH 02/09/2025 12:55 PM Signed Type of form: Medical Clearance/Medication holding for dental treatment and surgery Form received via fax When form is completed, Fax form to [facility] at [phone] Form has been forwarded to AKASH Joshi Melissa, RN 02/09/2025 2:14 PM Signed Called [facility] for clarification on form, spoke with [place]. They need medication holding clarification as patient takes ASA and plavix. Form completed and faxed to [phone] Transmission completed Encounter closed Amber Caal RN 02/15/2025 1:47 PM Addendum Call received form Yamileth with [facility] to ask if it is ok for patient to only hold plavix for 3 day? Form stated continue ASA ok to hold plavix 7 days If not 3 than 5? He will be having a tooth extraction. Please advise [phone] Amber Caal RN 02/16/2025 12:28 PM Signed Per ok to hold 3 days, continue ASA and resume plavix when able per dentist. Called and spoke to [place] to inform at dentist office. Encounter closed Allergies As of Date: 02/09/2025 Noted Allergy Reaction OMEPRAZOLE 05/26/2015 14 - Other: See Comments Comments: Severe Headaches SENNA 02/09/2023 16 - Unknown Comments: Bottom lip swelled. Stopped swelling when senna dc Date Reviewed: 01/05/2025 Reviewed by: Alma Salinas RN - Fully Assessed Reason for Visit: Forms [913] Cmt: Medical clearance/medication holding Prescriptions as of 02/16/2025 - mirtazapine (REMERON) 15 mg tablet Take 1 tablet by mouth daily at bedtime. - oxyCODONE-acetaminophen (PERCOCET) 5-325 mg tablet Take 1 tablet by mouth every 8 hours as needed for pain. - acetaminophen 325 mg-caffeine 40 mg-butalbital 50 mg (FIORICET) per tablet Take 1 tablet by mouth every 4 hours as needed for headache. - ondansetron orally disintegrating (ZOFRAN ODT) 8 mg disintegrating tablet - pantoprazole DR (PROTONIX) 20 mg tablet Take 20 mg by mouth once daily. - clopidogrel (PLAVIX) 75 mg tablet Take 75 mg by mouth once daily. - rosuvastatin (CRESTOR) 10 mg tablet Take 1 tablet by mouth daily at bedtime. - aspirin 81 mg chewable tablet Take 1 tablet by mouth once daily. 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] 03/27/2009 Median arcuate ligament syndrome (HCC) [I77.4] 09/16/2016 Epigastric pain [R10.13] 09/16/2016 Severe protein-calorie malnutrition (HCC) [E43] 09/16/2016 History of cholangitis [Z87.19] 09/16/2016 Lower abdominal pain [R10.30] 06/27/2017 Chronic mesenteric ischemia (HCC) [K55.1] 06/26/2017 Nicotine use disorder, F17.2 [F17.200] 06/27/2017 Polycythemia [D75.1] 08/24/2018 Gastroesophageal reflux disease without esophag*08/24/2018 Duodenitis [K29.80] 01/13/2023 Gastric ulcer [K25.9] 01/13/2023 Irritable bowel syndrome [K58.9] 01/13/2023 S/P arterial stent [Z95.9] 01/13/2023 Chronic abdominal pain [R10.9, G89.29] 01/13/2023 Atherosclerosis of superior mesenteric artery (*01/16/2023 Gastritis and gastroduodenitis [K29.70, K29.90] 01/17/2023 Acute post-operative pain [G89.18] 01/31/2023 Neck pain, chronic [M54.2, G89.29] 01/31/2023 Encounter for palliative care involving managem*01/31/2023 Encounter for pain management [R52] 01/31/2023 S/P partial gastrectomy [Z90.3] 02/10/2023 Degenerative disc disease, cervical [M50.30] 02/10/2023 Nausea and vomiting [R11.2] 02/10/2023 Gastrointestinal hemorrhage [K92.2] 02/11/2023 Mesenteric ischemia (HCC) [K55.9] 02/11/2023 Abdominal pain [R10.9] 05/18/2024 Colonic stricture (HCC) [K56.699] 08/10/2024 Encounter Status:Closed by AMBER CAAL on 02/09/25 VIC Observed: 01/27/2025 12:00 AM Status: COMPLETED Source: [facility] Telephone (PAINMN) RAJENDRA HOFFMAN ([id number]) 1960 M Date Time Provider Department 01/27/25 JESUS CROFT During your visit today, we recorded the following information about you: Jelly Chahal RN 01/27/2025 11:35 AM Signed Patient telephoned stating he is having an attacK. Patient is belching on the phone. Patient is moaning loudly. Patient states he needs to come in right now for an injection and was told he can come right in to get one when he has an attack. Provided assurance and reviewed providers schedule. Informed provider is not available today. Patient ended the call abruptly after using curse words. JERILYN Armenta Georgia K, RN 01/27/2025 1:07 PM Signed Jesus Croft MD You; Julee Soto, REBA.CNP15 minutes ago (12:30 PM) Do not make future appointment anymore given his abusive attitude recorded. Allergies As of Date: 01/27/2025 Noted Allergy Reaction OMEPRAZOLE 05/26/2015 14 - Other: See Comments Comments: Severe Headaches SENNA 02/09/2023 16 - Unknown Comments: Bottom lip swelled. Stopped swelling when senna dc Date Reviewed: 01/05/2025 Reviewed by: Alma Salinas, RN - Fully Assessed Prescriptions as of 01/27/2025 - mirtazapine (REMERON) 15 mg tablet Take 1 tablet by mouth daily at bedtime. - oxyCODONE-acetaminophen (PERCOCET) 5-325 mg tablet Take 1 tablet by mouth every 8 hours as needed for pain. - acetaminophen 325 mg-caffeine 40 mg-butalbital 50 mg (FIORICET) per tablet Take 1 tablet by mouth every 4 hours as needed for headache. - ondansetron orally disintegrating (ZOFRAN ODT) 8 mg disintegrating tablet - pantoprazole DR (PROTONIX) 20 mg tablet Take 20 mg by mouth once daily. - clopidogrel (PLAVIX) 75 mg tablet Take 75 mg by mouth once daily. - rosuvastatin (CRESTOR) 10 mg tablet Take 1 tablet by mouth daily at bedtime. - aspirin 81 mg chewable tablet Take 1 tablet by mouth once daily. 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] 03/27/2009 Median arcuate ligament syndrome (HCC) [I77.4] 09/16/2016 Epigastric pain [R10.13] 09/16/2016 Severe protein-calorie malnutrition (HCC) [E43] 09/16/2016 History of cholangitis [Z87.19] 09/16/2016 Lower abdominal pain [R10.30] 06/27/2017 Chronic mesenteric ischemia (HCC) [K55.1] 06/26/2017 Nicotine use disorder, F17.2 [F17.200] 06/27/2017 Polycythemia [D75.1] 08/24/2018 Gastroesophageal reflux disease without esophag*08/24/2018 Duodenitis [K29.80] 01/13/2023 Gastric ulcer [K25.9] 01/13/2023 Irritable bowel syndrome [K58.9] 01/13/2023 S/P arterial stent [Z95.9] 01/13/2023 Chronic abdominal pain [R10.9, G89.29] 01/13/2023 Atherosclerosis of superior mesenteric artery (*01/16/2023 Gastritis and gastroduodenitis [K29.70, K29.90] 01/17/2023 Acute post-operative pain [G89.18] 01/31/2023 Neck pain, chronic [M54.2, G89.29] 01/31/2023 Encounter for palliative care involving managem*01/31/2023 Encounter for pain management [R52] 01/31/2023 S/P partial gastrectomy [Z90.3] 02/10/2023 Degenerative disc disease, cervical [M50.30] 02/10/2023 Nausea and vomiting [R11.2] 02/10/2023 Gastrointestinal hemorrhage [K92.2] 02/11/2023 Mesenteric ischemia (HCC) [K55.9] 02/11/2023 Abdominal pain [R10.9] 05/18/2024 Colonic stricture (HCC) [K56.699] 08/10/2024 Encounter Status:Closed by JELLY CHAHAL on 01/27/25 FOOT COMPLETE RT Observed: 01/24/2025 8:04 AM Status: F Source: [place] [id number] Patient: RAJENDRA HOFFMAN Mikael Phone#: : 1960 Age: 64 Gender: M Pt. Type: ER Account: [id number] Location: [facility] Ordering: REECE SANDERS Exam Date: 01/24/2025/7:59 Family Phys: RICHARD RAMSEY Charge Code: [id number] Physician: [place] Order #: [id number] Dose#: PROCEDURE: X-RAY FOOT RT COMPLETE MIN 3 VIEWS COMPARISON: None. INDICATIONS: Trauma. FINDINGS: BONES: Diffuse bony demineralization. No fracture or dislocation. No acute osseous abnormality. SOFT TISSUES: Negative. No visible soft tissue swelling. EFFUSION: None visible. OTHER: Negative. CONCLUSION: 1. No acute osseous abnormality Dictated by: Delia Castillo MD on 01/24/2025 at 8:38 Approved by: Delia Castillo MD on 01/24/2025 at 8:42 ANKLE COMPLETE RT Observed: 01/24/2025 8:04 AM Status: F Source: [address] [address] Patient: RAJENDRA HOFFMAN Mikael Phone#: : 1960 Age: 64 Gender: M Pt. Type: ER Account: [id number] Location: 052 Ordering: REECE SANDERS Exam Date: 01/24/2025/8:02 Family Phys: RICHARD RAMSEY Charge Code: [id number] Physician: [place] Order #: [id number] Dose#: PROCEDURE: X-RAY ANKLE COMPLETE RT MIN 3 VIEWS COMPARISON: None. INDICATIONS: Trauma. FINDINGS: BONES: Diffuse bony demineralization. No fracture. No dislocation. Talar dome is intact. Joint space is maintained. Normal alignment. SOFT TISSUES: Negative. No visible soft tissue swelling. EFFUSION: None visible. OTHER: Negative. CONCLUSION: 1. No acute osseous abnormality Dictated by: Delia Castillo MD on 01/24/2025 at 8:42 Approved by: Delia Castillo MD on 01/24/2025 at 8:44 ED MED ADMINISTRATION DETAIL Observed: 0 01/24/2025 7:38 AM Status: C Source: [facility] Inspector Timers Medication Administration Record [address] [place] [address] [id number] 01/24/2025 Patient: RAJENDRA HOFFMAN Sex: Male : 1960 Age: 64y MEASUREMENTS: Wt: 49.9 kg, Ht/Andre: 70.0 in, BMI: 15.78 ALLERGIES: omeprazole, senna Medication Ordered Medication Administration Date/Time MORPHine IM 4 mg 08:14 08 MORPHine IM 4 mg given. Given in the right deltoid. Given (NOW x1, HIGH Allergies verified and confirmed 5 rights. Information reviewed with 08:14 01/24/2025 ALERT patient including reason for taking this medication. - 08:14 Azalea Bales, RClaudiaNClaudia MEDICATION) Nii RClaudiaNClaudia Not Scanned Ondansetron 08:12 0804 Ondansetron (Zofran) ODT PO 4 mg given. Allergies Given (Zofran) ODT PO 4 verified and confirmed 5 rights. Information reviewed with patient 08:12 01/24/2025 mg (NOW x1) including reason for taking this medication. - 08:12 Azalea Rosa R.N. R.N. Scanned OxyCODONE-APAP 08:58 08/04 OxyCODONE-APAP 5-325 (Percocet) PO 1 tab given. Given 5-325 (Percocet) PO Allergies verified and confirmed 5 rights. Information reviewed with 08:58 01/24/2025 1 tab (NOW x1, patient including reason for taking this medication. - 08:59 Azalea Bales R.N. HIGH ALERT Stephanie Bales Scanned MEDICATION) 1 of 1 ED SUPER BILL Observed: 01/24/2025 7:38 AM Status: C Source: [address] [address] [id number] 01/24/2025 Patient: RAJENDRA HOFFMAN Sex: Male : 1960 Age: 64y Item Facility Professional Category Description Code Code Quantity Fee Total Nurse/E/M EMERGENCY 689525 1 $0.00 $0.00 DEPARTMENT VISIT HIGH/URGENT SEVERITY (28756-10) Nurse/IV/IM/Infusions IM/SQ (42777) 683868 1 $0.00 $0.00 Grand Total $0.00 Providers Reece Sanders D.O. Chief Complaint Injury to right foot and right ankle. Principal Diagnosis Sprain of the right ankle. 1 of 2 [facility] ICD-10 Codes S93.401A: Sprain of unspecified ligament of right ankle, initial encounter 2 of 2 ED PHYSICIAN CLINICAL REPORT Observed: 0 01/24/2025 7:38 AM Status: C Source: [facility] Narrative Physician Clinical Narrative [address] [address] [phone] 01/24/2025 07:38:00 Patient: RAJENDRA HOFFMAN Sex: Male : 1960 Age: 64y Disposition: Discharge Disposition Decision Time: 08:58 01/24/2025 Measurements Wt: 49.9 kg, Ht/Andre: 70.0 in, BMI: 15.78 Initial Vital Sign Measured Time BP MAP HR RR O2Sat ETCO2 Temp Pain GCS RTS 07:45 01/24/2025 99/72 81 98 16 96% 97.2 F 10 Time Seen: 07:39 01/24/2025. Arrived- By private vehicle. Historian- patient. Independent historian- family. HISTORY OF PRESENT ILLNESS Chief Complaint: Injury to right foot and right ankle. The injury happened 8 hours [employer]. (8 hours prior to arrival patient had went to stand up in his foot and fallen asleep. States he twisted his right foot and ankle and fell to the ground. States it since that time he has had sharp pain in his right foot and ankle. Worse with movement. Unable to bear weight. Denies any head injury or loss of consciousness.). REVIEW OF SYSTEMS NEUROLOGICAL: No tingling or numbness. PAST HISTORY Ulcer of esophagus 1 of 5 Narrative Surgeries: stomach Medications: aspirin 81 mg tablet Crestor oral Plavix 75 mg tablet Protonix 40 mg tablet,delayed release Allergies: omeprazole senna SOCIAL HISTORY No alcohol use or drug use. ADDITIONAL NOTES The nursing notes have been reviewed. PHYSICAL EXAM Vital Signs: Have been reviewed. Appearance: Alert. No acute distress. Head: Head atraumatic. Neck: C-spine non-tender. Extremities: Right foot: moderate tenderness and medium sized ecchymosis. Neurovascular intact distally. LABS, X-RAYS, AND EKG X-Rays: Right ankle negative. Right foot negative. Diagnostic Study Tests: ANKLE COMPLETE RT 2 of 5 Narrative Final EXAM Date: 01/24/2025 08:04:00 EDT MsgRcvd: 01/24/2025 08:47 EDT [place] [address] Patient: RAJENDRA HOFFMAN Phone#: : 1960 Age: 64 Gender: M Pt. Type: ER Account: [id number] Location: [facility] Ordering: REECE SANDERS Exam Date: 01/24/2025/8:02 Family Phys: RICHARD RAMSEY Charge Code: [id number] Physician: [place] Order #: [id number] Dose#: PROCEDURE: X-RAY ANKLE COMPLETE RT MIN 3 VIEWS COMPARISON: None. INDICATIONS: Trauma. FINDINGS: BONES: Diffuse bony demineralization. No fracture. No dislocation. Talar dome is intact. Joint space is maintained. Normal alignment. SOFT TISSUES: Negative. No visible soft tissue swelling. EFFUSION: None visible. OTHER: Negative. CONCLUSION: 1. No acute osseous abnormality Dictated by: Delia Castillo MD on 01/24/2025 at 8:42 Approved by: Delia Castillo MD on 01/24/2025 at 8:44 FOOT COMPLETE RT Final EXAM Date: 01/24/2025 08:04:00 EDT MsgRcvd: 01/24/2025 08:46 EDT [place] [address] Patient: RAJENDRA HOFFMAN Phone#: : 1960 Age: 64 Gender: M Pt. Type: ER Account: [id number] Location: [facility] Ordering: REECE SANDERS Exam Date: 01/24/2025/7:59 3 of 5 Narrative Family Phys: RICHARD RAMSEY Charge Code: [id number] Physician: [place] Order #: [id number] Dose#: PROCEDURE: X-RAY FOOT RT COMPLETE MIN 3 VIEWS COMPARISON: None. INDICATIONS: Trauma. FINDINGS: BONES: Diffuse bony demineralization. No fracture or dislocation. No acute osseous abnormality. SOFT TISSUES: Negative. No visible soft tissue swelling. EFFUSION: None visible. OTHER: Negative. CONCLUSION: 1. No acute osseous abnormality Dictated by: Delia Castillo MD on 01/24/2025 at 8:38 Approved by: Delia Castillo MD on 01/24/2025 at 8:42 PROGRESS AND PROCEDURES Differential Diagnosis: Other possible considerations: Right ankle/foot fracture, dislocation, contusion, sprain. MEDICAL DECISION MAKING: (Patient appears well nontoxic. Patient having significant pain secondary to his right foot and ankle. X-ray negative for acute fracture or dislocation. Strong palpable pulses. Compressible compartments. Patient treated with intramuscular morphine and ODT Zofran. Continued to have pain and was treated with oral Percocet. Patient placed in an orthopedic boot. Given crutches. We will be given primary care as well as follow up with Orthopedic surgery. Stable time of discharge.). Disposition: Condition: good. Disposition Decision Time: 08:58 01/24/2025. Patient discharged. Discharged in good condition. CLINICAL IMPRESSION Sprain of the right ankle. DISCHARGE INSTRUCTIONS 4 of 5 Narrative Apply ice. Use crutches. Wear boot orthosis. Prescription Medications: Percocet 5 mg-325 mg tablet: Take 1 tablet by mouth three times a day as needed for pain for 3 days, dispense 9 tablet. Refills 0. Pharmacy: [facility] [address] [place] [address]. Follow-up: Follow up with your healthcare provider in three days. Call for an appointment. Follow-up with: Juan Florian DO, [facility], Orthopedic, Phone: [phone], [address] [address]. Follow up in three days if not well. (Electronically signed by Reece Sanders D.O. 01/24/25 09:09:06 EDT) Generated by [facility] 5 of 5 ED VISIT SUMMARY Observed: 01/24/2025 7:38 AM Status: C Source: [facility] Visit Overview Visit Overview [address] [place] [address] [id number] 01/24/2025 Patient: RAJENDRA HOFFMAN Sex: Male : 1960 Age: 64y 01/24/2025 11:39 AM EDT ED Arrival:07:38 01/24/2025 EDT Status: Recent Travel:no Language:eng Adv Directive:No Isolation Status: Ethnicity:N Fall Risk:risk Infectious Disease Exposure:no Measurements:5'10 / 177.8 Self-Harm Status:risk Sepsis Screen:negative cm 110.0 lb / 49.9 kg Chief Complaint:right foot, RIGHT LOWER EXTREMITY PAIN, RIGHT LOWER EXTREMITY SWELLING, (Brown), and (Pt got up and rolled his ankle) ALLERGIES omeprazole senna HOME MEDICATIONS aspirin 81 mg tablet Crestor oral Plavix 75 mg tablet 1 of 3 Visit Overview Protonix 40 mg tablet,delayed release PAST MEDICAL HISTORY / PROBLEMS Ulcer of esophagus PAST SURGICAL HISTORY stomach SOCIAL HISTORY Smoking status: Yes Alcohol use: No Drug use: Yes ED COURSE MEDICATIONS GIVEN IN EMERGENCY DEPARTMENT 08:12 01/24/25 Ondansetron (Zofran) ODT PO 4 mg 08:14 01/24/25 MORPHine IM 4 mg 08:58 01/24/25 OxyCODONE-APAP 5-325 (Percocet) PO 1 tab IV SITE INFORMATION INTAKE OUTPUT REASSESMENT (most recent) 08:01 01/24/25. GENERAL / NEURO / PSYCH: Alert. Appears in pain. EXTREMITIES: Limited ROM present. Lower extremity edema. Extremity pulses are within normal limits. Neuro-vascular status intact to the extremity. Right ankle: swelling and ecchymosis. Limited ROM secondary to pain (diminished plantar flexion, dorsiflexion, inversion and eversion). SKIN: Skin is warm and dry. A single medium-sized bruise noted on the right ankle and foot. VITAL SIGNS First Vitals Last Vitals Temp 07:45 01/24/25 97.2 F Temp 09:00 01/24/25 2 of 3 Visit Overview First Vitals Last Vitals BP 07:45 01/24/25 99/72 BP 09:00 01/24/25 110/62 HR 07:45 01/24/25 98 HR 09:00 01/24/25 RR 07:45 01/24/25 16 RR 09:00 01/24/25 O2 Sat 07:45 01/24/25 96% O2 Sat 09:00 01/24/25 Pain 07:45 01/24/25 10 Pain 09:00 01/24/25 ETCO2 07:45 01/24/25 ETCO2 09:00 01/24/25 GCS 07:45 01/24/25 GCS 09:00 01/24/25 RTS 07:45 01/24/25 RTS 09:00 01/24/25 PROCEDURES NURSING INTERVENTIONS LABS / STUDIES LABS / STUDIES ORDERED Ankle R Complete Foot R Complete CLINICAL IMPRESSION SPRAIN OF THE RIGHT ANKLE 3 of 3 ED ORDER SHEET (CPOE ONLY) Observed: 09/2024 7:38 AM Status: C Source: [facility] Order Sheet Order Sheet [facility] [address] [place] [address]. [place] [address] [id number] 01/24/2025 Patient: RAJENDRA HOFFMAN Sex: Male : 1960 Age: 64y MEASUREMENTS: Wt: 49.9 kg, Ht/Andre: 70.0 in, BMI: 15.78 ALLERGIES: omeprazole, senna MEDICATION/IV/DRIP/FLUID ORDERS Order Description Priority Entered Acknowledged Completed MORPHine IM4 mg (NOW x1, 07:47 01/24/2025 07:48 08:14 HIGH ALERT MEDICATION) Reece Sanders, 01/24/2025 01/24/2025 Azalea Chavez, Anastacia.N. R.N. Ondansetron (Zofran) ODT PO4 07:47 01/24/2025 07:48 08:12 mg (NOW x1) Reece Sanders, 01/24/2025 01/24/2025 Azalea Chavez, Anastacia.N. R.N. OxyCODONE-APAP 5-325 08:52 01/24/2025 08:54 08:59 (Percocet) PO1 tab (NOW x1, Reece Sanders, 01/24/2025 01/24/2025 HIGH ALERT MEDICATION) Azalea Chavez, R.N. R.N. Reason for ordering with alerts: Benefits outweigh risks --08:52 01/24/2025 Reece Sanders D.O. LAB ORDERS Order Description Priority Entered Acknowledged Collected Completed 1 of 2 Order Sheet DIAGNOSTIC STUDY ORDERS Order Description Priority Entered Acknowledged Completed Foot R Complete Stat Stat 07:47 01/24/2025 07:48 07:56 Reece Sanders, 01/24/2025 01/24/2025 Azalea Chavez, Anastacia.N. R.N. Reason for Study: Trauma/Injury Ankle R Complete Stat Stat 07:47 01/24/2025 07:48 07:56 Reece Sanders, 01/24/2025 01/24/2025 Azalea Chavez, R.N. R.N. Reason for Study: Trauma/Injury STAFF ORDERS Order Description Priority Entered Acknowledged Collected Completed Orthopedic Boot 11:39 01/24/2025 Reece Sanders D.O. Crutches 11:39 01/24/2025 Reece Sanders D.O. [Electronically signed by Reece Sanders D.O. (01/24/2025 09:09 EDT)] [Electronically signed by Reece Sanders D.O. (01/24/2025 11:39 EDT)] 2 of 2 ED NURSES CLINICAL NOTE Observed: 2024 7:38 AM Status: C Source: [facility] Nurse Narrative Nurse Clinical Narrative [facility] [address] [facility] [place] [address] [phone] 01/24/2025 07:38:00 Patient: RAJENDRA HOFFMAN Sex: Male : 1960 Age: 64y Disposition: Discharge to Home Disposition Decision Time: 08:58 01/24/2025 Departure Time: 09:03 01/24/2025 TRIAGE Arrived by private vehicle. Historian: (patient). Accompanied by family. Patient has a primary care physician. Primary physician (Braulio). Triage time: 07:40 01/24/2025. Acuity: LEVEL 4. Chief Complaint: RIGHT LOWER EXTREMITY PAIN and SWELLING. Location of symptoms- right foot. Injury occurred. Provoking / relieving factors: (Pt got up and rolled his ankle). The patient has had trouble walking. SEPSIS SCREEN: NEGATIVE. SIRS criteria negative. No possible sources of infection. -- 07:45 01/24/25 EDT Azalea Bales R.N. 07:45 01/24/25. BP: 99/72 MAP: 81. HR: 98. RR: 16. O2 saturation: 96% Temperature: 97.2 F. Pain level now 10/10. -- 07:45 01/24/25 EDT Azalea Bales R.N. Measurements: 07:44 01/24/25 Wt: 49.9 kg, Ht/Andre: 70.0 in, BMI: 15.78 -- 07:44 01/24/25 EDT Azalea Bales R.N. Medications: Plavix 75 mg tablet -- 07:42 01/24/25 EDT Azalea Bales R.N. aspirin 81 mg tablet -- 07:43 01/24/25 EDT Azalea Bales R.N. 1 of 4 Nurse Narrative Crestor oral -- 07:43 01/24/25 EDT Azalea Bales R.N. Protonix 40 mg tablet,delayed release -- 07:43 01/24/25 EDT Azalea Bales R.N. 07:40 01/24/25. Preferred Pharmacy: [facility]. -- 07:45 01/24/25 ZELALEMT Azalea Bales R.N. Allergies: senna -- 07:41 01/24/25 EDT Azalea Bales R.N. omeprazole -- 07:42 01/24/25 EDT Azalea Bales R.N. Problems: Ulcer of esophagus -- 07:42 01/24/25 ZELALEMT Azalea Bales R.N. Surgeries: stomach -- 07:48 01/24/25 ZELALEMT Azalea Bales R.N. History 07:40 01/24/25. SOCIAL HX: Heavy tobacco smoker (cigarette)- 1 pack per day. Drug use: marijuana. No alcohol use. The patient has not traveled outside the [place] Infectious disease exposure: No infectious disease exposure. ABUSE ASSESSMENT: The patient answered yes to the question(s) Do you feel safe in your home? and no to the question(s) Are you afraid to go home?. SELF HARM ASSESSMENT: Self harm assessment was performed. The patient answered no to the question(s) Have you recently felt down, depressed, or hopeless? and Do you have thoughts of harming or killing yourself?. -- 07:45 01/24/25 ANIBAL Bales R.N. 07:41 01/24/25. FALL RISK ASSESSMENT: Fall risk assessment completed. Risk factors identified include patient history of fall. Fall interventions initiated. Side rails up x2. Patient identified as a fall risk by ID band. Call light in reach of patient. Instructed not to get up without assistance. -- 07:46 01/24/25 ANIBAL Bales R.N. 2 of 4 Nurse Narrative Interventions 07:40 01/24/25. Advanced care plan discussed with patient. Patient does not have advanced directive. -- 07:45 01/24/25 ANIBAL Bales R.N. PHYSICAL ASSESSMENT 08:01 01/24/25. GENERAL / NEURO / PSYCH: Alert. Appears in pain. EXTREMITIES: Limited ROM present. Lower extremity edema. Extremity pulses are within normal limits. Neuro-vascular status intact to the extremity. Right ankle: swelling and ecchymosis. Limited ROM secondary to pain (diminished plantar flexion, dorsiflexion, inversion and eversion). SKIN: Skin is warm and dry. A single medium-sized bruise noted on the right ankle and foot. -- 08:07 01/24/25 EDT Azalea Bales R.N. NURSING PROGRESS NOTES 07:50 01/24/25. Patient transported to radiology by stretcher. -- 08:00 01/24/25 ANIBAL Bales R.N. 08:12 01/24/25. Ondansetron (Zofran) ODT PO 4 mg given. Allergies verified and confirmed 5 rights. Information reviewed with patient including reason for taking this medication. -- 08:12 01/24/25 ANIBAL Bales R.N. 08:14 01/24/25. MORPHine IM 4 mg given. Given in the right deltoid. Allergies verified and confirmed 5 rights. Information reviewed with patient including reason for taking this medication. -- 08:14 01/24/25 ANIBAL Bales R.N. 08:58 01/24/25. OxyCODONE-APAP 5-325 (Percocet) PO 1 tab given. Allergies verified and confirmed 5 rights. Information reviewed with patient including reason for taking this medication. -- 08:59 01/24/25 ANIBAL Bales R.N. DISPOSITION / DISCHARGE 09:00 01/24/25. BP: 110/62 MAP: 78. -- 09:24 01/24/25 ZELALEMT Azalea Bales R.N. Departure time: 09:03 01/24/2025. Condition at departure: improved. No learning barriers present. Discharge instructions provided and reviewed with the patient. Reviewed medication(s). Reviewed referral to an orthopedic surgeon and a primary care physician for followup. Activity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 Take 1 tablet by mouth every 4 hours as needed for headache. ondansetron orally disintegrating (ZOFRAN ODT) 8 mg disintegrating tablet pantoprazole DR (PROTONIX) 20 mg tablet Take 20 mg by mouth once daily. clopidogrel (PLAVIX) 75 mg tablet Take 75 mg by mouth once daily. aspirin 81 mg chewable tablet Take 1 tablet by mouth once daily. hyoscyamine sublingual (LEVSIN/SL) 0.125 mg Dissolve 1 tablet under the tongue every 4 hours as needed. rosuvastatin (CRESTOR) 10 mg tablet Take 1 tablet by mouth daily at bedtime. Omeprazole and Senna FAMILY HISTORY Colon Cancer: No Other Cancers: No FAMILY HISTORY Problem Relation Age of Onset Cancer Mother lung Cancer Maternal Grandmother lung Colon Cancer Father Cancer Maternal Grandfather throat Cancer Maternal Aunt bone PAST MEDICAL HISTORY Diagnosis Date Adenomatous colon polyp Arthritis GERD (gastroesophageal reflux disease) Hiatal hernia Hx of fusion of cervical spine Mesenteric artery stenosis (HCC) PAST SURGICAL HISTORY Procedure Laterality Date ADDTL NECK SPINE FUSION 2010 CHOLECYSTECTOMY 2007 COLONOSCOPY 08/11/2024 Tubular Adenomas EGD 12/2022 EGD DIAGNOSTIC EGD DIAGNOSTIC 03/2023 EGD W/O BRSH SPEC VARICIES INJ 08/11/2024 ESOPHAGOGASTRODUODENOSCOPY TRANSORAL DIAGNOSTIC 09/2014 EGD EXPLORATORY OF ABDOMEN 01/25/2023 evacuation of hematoma EXPLORATORY OF ABDOMEN 01/17/2023 antrectomy and Chester-en-Y GJ PAST SURGICAL HISTORY OF 2014 PPH-pierre in rectum/colon PAST SURGICAL HISTORY OF 2018 stent placed in the SMA PAST SURGICAL HISTORY OF 2017 Balloon angioplasty of the celiac artery PAST SURGICAL HISTORY OF 01/2017 Celiac and superior mesenteric artery angioplasty PAST SURGICAL HISTORY OF 08/2016 celiac and SMA angiogram with placement of stent in the celiac and in the SMA. SPINAL CORD STIM PERCT SCS ELCT 2021 stimulator in and removed Social History Tobacco Use Smoking status: Every Day Types: Cigarettes Smokeless tobacco: Never Tobacco comments: 10-15 per day Vaping Use Vaping status: Never Used Substance Use Topics Alcohol use: No Comment: very very seldom Drug use: No Comment: used to smoke [employer], 3 to 4 days per week REVIEW OF SYSTEMS EyesNegative for vision changes, diplopia or epiphora. Ears, Mouth, nose, throat:No problems Cardiovascular: No Problems Respiratory: Negative for cough, wheezing and shortness of breath Gastrointestinal : as above Musuloskeletal: Denies significant problems Integumentary: no rashes, lesions, or jaundice Neurological: No history of neurologic problems Endocrine: Negative for cold or heat intolerance, polyuria, polydipsia and goiter. Psychiatric: Cooperative and agreeable Allergic/ Immunologic: Negative All others negative. PHYSICAL EXAMINATION There were no vitals taken for this visit. General - Normal, healthy, cooperative, in no acute distress Able to interact well. Psych - ORIENTATION: normal to time place, person and situation Mood/Affect: AFFECT AND MOOD: Normal Head/Neuro - Normal size and shape Facial appearance normal Pulmonary - respiratory effort normal Extremities- extremities normal, warm, no cyanosis,no clubbing, and no edema Skin - abnormal lesions not visualized Motor - patient seen sitting with Normal appearing strength and coordination Assessment Impression and Plan 1. Abdominal wall pain Chronic abdominal pain exacerbated by movement and specific positions, with a positive Carnett's test indicating pain originating from the abdominal wall rather than visceral organs - this is consistent with abdominal wall pain. Previous treatments with Bentyl and Levsin were ineffective. Recent mesenteric angiogram showed no abnormalities. - Referred to pain management for consideration of TPI or other therapies for abdominal wall pain. 2. Dyspepsia - Initiated mirtazapine to aid in weight gain and improve sleep; discussed potential side effects including sedation. - Continue current medications. RTC in 3 months I spent a total of 45 minutes on the date of the service which included preparing to see the patient, [id number] patient care, completing clinical documentation, obtaining and/or reviewing separately obtained history, performing a medically appropriate examination, counseling and educating the patient/family/caregiver, ordering medications, tests, or procedures, communicating with other HCPs (not separately reported), independently interpreting results (not separately reported), communicating results to the patient/family/caregiver, and care coordination (not separately reported). Richard Andres MD December 03, 2024 9:20 AM Recording using [employer] software for draft documentation of the visit was discussed with the patient/authorized auto service representative; all questions welcomed and answered. Patient/authorized auto service representative agreed to proceed. ANES POSTPROC EVAL Observed: 11/04/2024 8:24 AM Status: COMPLETED Source: [facility] HNO ID: [id number] Author: REECE GIANG MD Service: Anesthesiology Author Type: Anesthesiologist Type: Anesthesia Postprocedure Evaluation Filed: 11/04/2024 08:24 Note Text: POST ANESTHESIA EVALUATION NOTE : 1960 Procedure Summary Date: 10/29/24 Room / Location: [facility] Anesthesia Start: 1156 Anesthesia Stop: 1328 Procedures: ULTRASOUND GUIDANCE FOR VASCULAR ACCESS (Abdomen) SELECTIVE CATHETER PLACEMENT ARTERIAL SYSTEM EA 1ST ORDER ABD/PELVIC/LOWER EXTREMITY ARTERY BRANCH (Leg) ANGIOGRAM VISCERAL WITH OR WITH FLUSH RADIOLOGICAL (Leg) Diagnosis: Chronic mesenteric ischemia (HCC) (Chronic mesenteric ischemia (HCC) [K55.1]) Surgeons: Arely Cruz DO Responsible Provider: Reece Giang MD Anesthesia Type: MAC, general ASA Status: 3 Anesthesia Type: MAC, general Last Vitals Vitals Value Taken Time BP 118/68 10/29/240 Temp 36.6 ?C (97.9 ?F) 10/29/241899 HR SpO2 71 10/29/240 Resp 14 10/29/241899 SpO2 99 % 10/29/241899 Post Anesthesia Patient Status Patient Evaluation: PACU. PACU/ICU Patient Condition: stable. Anticipated Disposition: phase 2 then home. Neurological Status: aware and responsive. Pulmonary Status: breathing comfortably on room air Airway Control: returned to baseline unsupported. Cardiovascular Status: stable. Pain Management: clinically adequate Postoperative Hydration: acceptable. Intraoperative Events: no significant anesthesia events Post Operative Nausea/Vomiting Status: no significant post operative nausea or vomiting Recommendation: further care per PACU/ICU/floor team. Anesthesia Observations No Documentation SIGNATURE: Reece Giang MD PATIENT NAME: Rajendra Reggie Yasmin DATE: November 04, 2024 TIME: 8:24 AM CSN: [id number] CNPN Observed: 11/02/2024 12:00 AM Status: COMPLETED Source: [facility] Telephone ([id number]) YASMINRAJENDRA Reggie ([id number]) 1960 M Date Time Provider Department 11/02/24 TAO [id number] During your visit today, we recorded the following information about you: Cecelia Wick LPN 11/02/2024 10:43 AM Signed Patient called, verified by name and . Stated that Dr. Medeiros had referred patient to GI at [facility] and patient saw Dr. Garcia, who told me that my tortuous colon wasn't my problem, but that it was my mesenteric artery stents so he referred me back to my vascular surgeon who ordered testing and a procedure and told me my stents are fine. When I asked Dr. Garcia for a contingency plan in case the stents weren't the problem, he told me to pray. Patient requesting advice on what needs to be done next. Please advise. Cecelia Wick LPN 11/03/2024 9:[address] Medeiros, patient should seek a second opinion from GI. Reccomends patient to see Dr. Richard Andres at [facility]. Called and gave patient information, patient voiced understanding. Referral placed. Shreya DWYER Allergies As of Date: 11/02/2024 Noted Allergy Reaction OMEPRAZOLE 05/26/2015 14 - Other: See Comments Comments: Severe Headaches SENNA 02/09/2023 16 - Unknown Comments: Bottom lip swelled. Stopped swelling when senna dc Date Reviewed: 10/29/2024 Reviewed by: Maral Harris, RN - Fully Assessed Reason for Visit: Patient Update [1234] Prescriptions as of 11/03/2024 - oxyCODONE-acetaminophen (PERCOCET) 5-325 mg tablet Take 1 tablet by mouth every 8 hours as needed for pain. - hyoscyamine sublingual (LEVSIN/SL) 0.125 mg Dissolve 1 tablet under the tongue every 4 hours as needed. - hyoscyamine SR (LEVBID) 0.375 mg 12 hr tablet Take 1 tablet by mouth two times a day. - hyoscyamine (LEVSIN) 0.125 mg tablet Take 1 tablet by mouth every 4 hours as needed for diarrhea (and abdominal pain). - acetaminophen 325 mg-caffeine 40 mg-butalbital 50 mg (FIORICET) per tablet Take 1 tablet by mouth every 4 hours as needed for headache. - ondansetron orally disintegrating (ZOFRAN ODT) 8 mg disintegrating tablet - pantoprazole DR (PROTONIX) 20 mg tablet Take 20 mg by mouth once daily. - clopidogrel (PLAVIX) 75 mg tablet Take 75 mg by mouth once daily. - rosuvastatin (CRESTOR) 10 mg tablet Take 1 tablet by mouth daily at bedtime. - aspirin 81 mg chewable tablet Take 1 tablet by mouth once daily. 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] 03/27/2009 Median arcuate ligament syndrome (HCC) [I77.4] 09/16/2016 Epigastric pain [R10.13] 09/16/2016 Severe protein-calorie malnutrition (HCC) [E43] 09/16/2016 History of cholangitis [Z87.19] 09/16/2016 Lower abdominal pain [R10.30] 06/27/2017 Chronic mesenteric ischemia (HCC) [K55.1] 06/26/2017 Nicotine use disorder, F17.2 [F17.200] 06/27/2017 Polycythemia [D75.1] 08/24/2018 Gastroesophageal reflux disease without esophag*08/24/2018 Duodenitis [K29.80] 01/13/2023 Gastric ulcer [K25.9] 01/13/2023 Irritable bowel syndrome [K58.9] 01/13/2023 S/P arterial stent [Z95.9] 01/13/2023 Chronic abdominal pain [R10.9, G89.29] 01/13/2023 Atherosclerosis of superior mesenteric artery (*01/16/2023 Gastritis and gastroduodenitis [K29.70, K29.90] 01/17/2023 Acute post-operative pain [G89.18] 01/31/2023 Neck pain, chronic [M54.2, G89.29] 01/31/2023 Encounter for palliative care involving managem*01/31/2023 Encounter for pain management [R52] 01/31/2023 S/P partial gastrectomy [Z90.3] 02/10/2023 Degenerative disc disease, cervical [M50.30] 02/10/2023 Nausea and vomiting [R11.2] 02/10/2023 Gastrointestinal hemorrhage [K92.2] 02/11/2023 Mesenteric ischemia (HCC) [K55.9] 02/11/2023 Abdominal pain [R10.9] 05/18/2024 Colonic stricture (HCC) [K56.699] 08/10/2024 Encounter Status:Closed by YASMINECRISPINCECELIA MURRAY on 11/03/24 NURSING PROG Observed: 10/29/2024 5:12 PM Status: COMPLETED Source: [facility] HNO ID: [id number] Author: YESSICA METZ RN Service: ? Author Type: Registered Nurse Type: Nursing Progress Note Filed: 10/29/2024 17:12 Note Text: The pt continues to rest in no distress NURSING PROG Observed: 10/29/2024 4:09 PM Status: COMPLETED Source: [facility] HNO ID: [id number] Author: YESSICA METZ RN Service: ? Author Type: Registered Nurse Type: Nursing Progress Note Filed: 10/29/2024 16:10 Note Text: The pt continues to rest in no distress. NURSING PROG Observed: 10/29/2024 2:40 PM Status: COMPLETED Source: [facility] HNO ID: [id number] Author: YESSICA METZ RN Service: ? Author Type: Registered Nurse Type: Nursing Progress Note Filed: 10/29/2024 14:40 Note Text: The pt is resting in no distress at this time. He is to remain on bedrest until 1930 per 's order BRIEF OP NOT Observed: 10/29/2024 12:56 PM Status: COMPLETED Source: [facility] HNO ID: [id number] Author: ARELY CRUZ DO Service: Vascular Surgery Author Type: Physician Type: Brief Op Note Filed: 10/29/2024 12:58 Note Text: BRIEF OPERATIVE / PROCEDURE NOTE LOG ID: [id number] Surgery/Procedure Date: 10/29/2024 Incision/Procedure Start Time: 12:20 PM Incision Close/Procedure End Time: Surgeon(s)/Proceduralist(s) and Neighborhood Worker(s): Surgeons and Role: * Arely Cruz DO - Primary * Socorro Melendez DO - Resident - Assisting Physician Neighborhood Worker: Blank Aldridge PA-C Acquisition Manager: Zarina Ulloa SA Procedure(s): US guided right common femoral artery access, aortogram and mesenteric angiogram, selective cannulation of superior mesenteric artery SLADE Angio: Access: 5F Closure: manual pressure Contrast: 70cc Fluorotime: 4.9 min, 148 Gy Anesthesia: Monitored Anesthesia Care ASA Class: Findings: celiac stent widely patent. SMA stent widely patent without significant stenosis. < 30% stenosis at the stent overlap area Pulses: LLE: DP/PT palp RLE: DP/PT palp Estimated Blood Loss: 5 mls Specimens: None Complications: None PRE-OP/PRE-PROCEDURE DIAGNOSIS: mesenteric stents in place POST-OP/POST-PROCEDURE DIAGNOSIS: Same as Preop Patient was accompanied to the next level of care by a licensed practitioner from the surgical team pending completion of this brief op note (or operative note) SIGNATURE: Arely Cruz DO PATIENT NAME: Rajendra Hoffman DATE: October 29, 2024 TIME: 12:56 PM ANES PROCEDURE NOTE Observed: 10/29/2024 12:13 PM Status: COMPLETED Source: [facility] HNO ID: [id number] Author: FROYLAN RHODES APRN.HORSE FARM MANAGER Service: Anesthesiology Author Type: Nurse Office Service Coordinator Type: Anesthesia Procedure Notes Filed: 10/29/2024 12:13 Note Text: ANESTHESIOLOGY PROCEDURE NOTE Airway General Information Procedure Start Time/Medication Administration: 10/29/2024 12:04 PM Procedure End Time: 10/29/2024 12:05 PM Patient location during procedure: OR Timeout Performed Pre-procedure: timeout performed Consent Obtained: Yes Patient identity confirmed: arm band and patient Staffing HORSE FARM MANAGER: Froylan Rhodes APRN.HORSE FARM MANAGER Performed by: HORSE FARM MANAGER Indications and Patient Condition Indications for airway management: anesthesia and airway protection Preoxygenated: yes anesthesia circuit Patient position: sniffing Method: asleep Cricoid Pressure: No Manual In-Line Stabilization: No Difficult Mask: No Final Airway Details Final airway type: endotracheal airway Final Endotracheal Airway: ETT Cuffed: yes Successful intubation technique: video laryngoscopy Devices used: [employer] Endotracheal tube insertion site: oral Blade: Evonne Blade size: #4 ETT size (mm): 8.0 Measured from: lips Measurement (cm): 23 Placement verified by: chest auscultation and capnometry Cormack-Lehane Classification: grade I - full view of glottis Number of attempts at approach: 1 Failed airway: no Unrecognized esophageal intubation: no Airway not difficult SIGNATURE: Froylan Rhodes APRN.CRNA PATIENT NAME: Rajendra Hoffman DATE: October 29, 2024 TIME: 12:13 PM CSN: [id number] OPERATIVE NO Observed: 10/29/2024 11:51 AM Status: COMPLETED Source: [facility] HNO ID: [id number] Author: ARELY CRUZ DO Service: Vascular Surgery Author Type: Physician Type: Operative Report Filed: 11/02/2024 16:16 Note Text: OPERATIVE/PROCEDURE REPORT LOG ID: [id number] Surgery/Procedure Date: 10/29/2024 Incision/Procedure Start Time: 12:20 PM Incision Close/Procedure End Time: 1:18 PM Surgeon(s)/Proceduralist(s) and Neighborhood Worker(s): Surgeons and Role: * Arely Cruz DO - Primary * Socorro Melendez DO - Resident - Assisting PROCEDURE INDICATION: 64 year old male with history of celiac and SMA and CTA noting possible stenosis of SMA stents. presents for mesenteric angiogram with possible intervention. INTERVENTIONAL PROCEDURE: 1. Ultrasound-guided right common femoral access 2. Aorta and mesenteric angiogram 3. Selective catheterization of superior mesenteric artery with selective angiogram Anesthesia: General PROCEDURAL DETAILS Patient was seen in the pre-surgical area where the preoperative Huddle was performed. Informed consent was reviewed with the patient and surgical team. The patient was then brought back to the operating room and laid supine on the operating table. Anesthesia was administered by the Anesthesia team. Bilateral groins were prepped and draped in the usual sterile fashion. The right common femoral artery was interrogated with the ultrasound and found to be patent. Utilizing local anesthesia, ultrasound guidance, and micropuncture system, access was obtained in the right common femoral artery and the tip of the needle within the vessel was documented. A 5-Nepali sheath was exchanged over a glidewire into the TIE INSPECTOR and an omniflush catheter was advanced into the aorta for aortogram and mesenteric angiogram which was performed in AP and lateral views. This demonstrated widely patent celiac and SMA stents without evidence of stenosis with very robust and brisk filling of both celiac and SMA branches. Bilateral renal arteries widely patent without stenosis. A glidewire and SOS catheter were used to select the superior mesenteric artery. Contrast was injected thrugh the catheter for selective SMA angiogram. This demonstrated widely patent SMA stents x 2 with < 30% stenosis at the overlap site. SMA is of large caliber and patent throughout its course. No evidence of significant instent restenosis. The wire and catheter were removed.Manual pressure held for hemostasis. The patient tolerated the procedure well. Intraoperative findings: widely patent celiac and SMA stents without significant stenosis. < 30% stenosis at the overlap site of SMA stents. Pre-Op/Pre-Procedure Diagnosis: abdominal pain, presence of celiac and SMA stents Post-Op/Post-Procedure Diagnosis: Same Estimated Blood Loss: 5 ml Specimens: None Implantable Devices: None Drains: None Complications: None I/primary surgeon/proceduralist performed the procedure with assistance. Arely Cruz DO HISTORY PHYSICAL Observed: 10/29/2024 11:23 AM Status: COMPLETED Source: [facility] ID: [id number] Author: ARELY CRUZ DO Service: General Surgery Author Type: Resident Type: H&P Filed: 10/31/2024 10:45 Note Text: Attestation signed by Arely Cruz DO at 10/31/2024 10:45 AM Arely Cruz DO UPDATED HISTORY AND PHYSICAL EXAMINATION SERVICE DATE: 10/29/2024 SERVICE TIME: 11:24 AM PHYSICAL EXAM MUST BE COMPLETED ON ADMISSION The History and Physical (completed in the past 30 days) has been reviewed and the patient has been examined. The contents accurately reflect the patient's condition with the following additions or revisions since the HANDP was completed. Physical Exam: Heart: regular rate, extremities warm and well perfused Lungs: no audible wheezing, equal chest rise bilaterally, no signs of respiratory distress Examination indicates no changes. This HANDP can be found in the Electronic Medical Record dated 10/26/24. SIGNATURE: Socorro Melendez DO PATIENT NAME: Rajendra Hoffman DATE: October 29, 2024 TIME: 11:24 AM ANES PRE-OP Observed: 10/29/2024 10:47 AM Status: COMPLETED Source: [facility] HNO ID: [id number] Author: REECE GIANG MD Service: Anesthesiology Author Type: Anesthesiologist Type: Anesthesia Preprocedure Evaluation Filed: 10/29/2024 11:15 Note Text: ANESTHESIOLOGY DAY OF SURGERY NOTE : 1960 Procedure Information Date/Time: 10/29/24 1220 Procedure: ANGIOGRAM MESENTERIC (Abdomen) Location: [place] [facility] 10 / [facility] Surgeons: Arely Cruz DO Estimated body mass index is 16.24 kg/m? as calculated from the following: Height as of 10/06/24: 177.8 cm (5' 10). Weight as of 10/06/24: 51.3 kg (113 lb 3.2 oz). Most recent hematocrit and potassium results: Hematocrit 36.1 10/29/2024 Potassium 3.8 10/29/2024 Relevant Problems CARDIO (+) Atherosclerosis of superior mesenteric artery (HCC) (+) Chronic mesenteric ischemia (HCC) (+) Median arcuate ligament syndrome (+) Mesenteric ischemia (HCC) GI (+) Gastric ulcer (+) Gastroesophageal reflux disease without esophagitis NEURO-PSYCH (+) History of cholangitis Mesenteric stenosis s/p celiac and SMA stenting - ASA, plavix Smoker - 1/2 ppd Occasional MJ use I - PHYSICAL EVALUATION AIRWAY Patient intubated: No. Tracheostomy tube not present Mallampati: II. TM distance: >3 FB. Neck ROM: full ROM without neurological symptoms. Mouth opening: adequate. Short neck: no. Thick neck: no Andrews present: no DENTAL Dental findings: missing tooth/teeth and teeth intact. Additional exam findings: no II - ANESTHESIA PLAN ASA Score: 3 Anesthetic Plan: MAC The patient is a current smoker. NPO Status: adequate Anesthetic plan additional comments: Discussed MAC vs GA w/ vascular intervention. Beta Judy Monitoring Plan Monitoring plan: standard ASA. Post Procedure Analgesic Plan Postoperative analgesic plan: multimodal analgesia. Informed Consent Anesthetic risks, benefits, alternatives, personnel and consent discussed: yes. Patient / Responsible Green Party agrees to proceed: yes Patient / Surrogate agrees to blood products: Yes Significant changes in the patient condition since the History and Physical, not otherwise documented in primary service progress note: no. Potential Anesthesia issues that may suggest increased risk of complications or contraindication to planned procedure: none. No vitals data found for the desired time range. No current facility-administered medications on file as of 10/29/2024. Outpatient Medications as of 10/29/2024 Medication Sig hyoscyamine sublingual (LEVSIN/SL) 0.125 mg Dissolve 1 tablet under the tongue every 4 hours as needed. hyoscyamine SR (LEVBID) 0.375 mg 12 hr tablet Take 1 tablet by mouth two times a day. hyoscyamine (LEVSIN) 0.125 mg tablet Take 1 tablet by mouth every 4 hours as needed for diarrhea (and abdominal pain). acetaminophen 325 mg-caffeine 40 mg-butalbital 50 mg (FIORICET) per tablet Take 1 tablet by mouth every 4 hours as needed for headache. ondansetron orally disintegrating (ZOFRAN ODT) 8 mg disintegrating tablet pantoprazole DR (PROTONIX) 20 mg tablet Take 20 mg by mouth once daily. clopidogrel (PLAVIX) 75 mg tablet Take 75 mg by mouth once daily. aspirin 81 mg chewable tablet Take 1 tablet by mouth once daily. I have interviewed and examined the patient. I have reviewed the medical record and/or the pre-anesthesia evaluation, pertinent labs, and test results. This contains updated information obtained within 48 hours of Surgery/Procedure. SIGNATURE: Reece Giang MD PATIENT NAME: Rajendra Hoffman DATE: October 29, 2024 TIME: 10:47 AM CSN: [id number] COMP METAB 1999 PNL SERPL Collected: 8:30 AM Status: F Source: [facility] Order Comment: Specimen Type : BLOOD SPECIMEN Ordering Facility: [facility] Address: [address] [place] [address] TYPE CODE TESTS RESULT OUT OF RANGE REFERENCE UNITS LAB 2885-2(LOINC) Prot SerPl-mCnc 7.5 6.3-8.0 g/dL LAB 1751-7(LOINC) Albumin SerPl-mCnc 4.4 3.9-4.9 g/dL LAB 25144-3(LOINC) Calcium SerPl-mCnc 9.5 8.5-10.2 mg/dL LAB 1975-2(LOINC) Bilirub SerPl-mCnc 0.3 0.2-1.3 mg/dL LAB 6768-6(LOINC) ALP SerPl-cCnc 192 High 38-113 U/L LAB 1920-8(LOINC) AST SerPl-cCnc 13 Low 14-40 U/L LAB 1742-6(LOINC) ALT SerPl-cCnc 8 Low 10-54 U/L LAB 2345-7(INC) Glucose SerPl-mCnc 90 74-99 mg/dL Result Comment: The [place] [employer] Association (ADA) provides guidance for cutoff values for fasting glucose and random glucose. The ADA defines fasting as no caloric intake for at least 8 hours. Fasting plasma glucose results between 100 to 125 [...] Standards of Medical Care in Diabetes 2016, [place] [employer]. Diabetes Care. 2016.39(Suppl 1). LAB 3094-0(LOINC) BUN SerPl-mCnc 13 9-24 mg/ dL LAB 2160-0(LOINC) Creat SerPl-mCnc 1.05 0.73-1.22 mg/dL LAB 2951-2(INC) Sodium SerPl-sCnc 139 136-144 mmol/L LAB 2823-3(LOINC) Potassium SerPl-sCnc 3.8 3.7-5.1 mmol/L LAB 2075-0(LOINC) Chloride SerPl-sCnc 103 98-107 mmol/L LAB 8-9(LOINC) CO2 SerPl-sCnc 26 22-30 mmo l/L LAB 66136-2(LOINC) Anion Gap SerPl-sCnc 10 8-15 mmol/L LAB 15358-0(LOINC) Creatinine + eGFR Pnl SerPlBld 80 >=60 mL/min/1 .73m??? Result Comment: Estimated Gl omerular Filtration Rate (eGFR) is calculated using the 2020 CKD-EPI creatinine equation. This equation utilizes serum creatinine, sex, and age as parameters. The creatinine assay has traceable calibration to isotope dilution-mass spectrometry. Refer to KDIGO guidelines for clinical interpretation. In patients with unstable renal function, e.g. those with acute kidney injury, the eGFR may not accurately reflect actual GFR. Performed By: #### 53317-0 # ### [facility] CLIA [id number] [address] [place] [address] [place] CBC PNL BLD AUTO Collected: 5 8:30 AM Status: F Source: [facility] Order Comment: Specimen Type : BLOOD SPECIMEN Ordering Facility: [facility] Address: [address] [place] [address] TYPE CODE TESTS RESULT OUT OF RANGE REFERENCE UNITS LAB 6690-2(LOINC) WBC # Bld Auto 7.11 3.70-11.00 k/uL LAB 789-8(LOINC) RBC # Bld Auto 4.89 4.20-6.00 m/uL LAB 718-7(LOINC) Hgb Bld-mCnc 11.4 Low 13.0-17.0 g/dL LAB 4544-3(LOINC) Hct VFr Bld Auto 36.1 Low 39.0-51.0 % LAB 787-2(LOINC) MCV RBC Auto 73.8 Low 80.0-100.0 fL LAB 785-6(LOINC) MCH RBC Qn Auto 23.3 Low 26.0-34.0 pg LAB 786-4(LOINC) MCHC RBC Auto-mCnc 31.6 30.5-36.0 g/dL LAB 21596-8(LOINC) RDW RBC-Rto 18.5 High 11.5-15.0 % LAB 777-3(LOINC) Platelet # Bld Auto 203 150-400 k/uL LAB 31501-6(LOINC) PMV Bld Auto 11.0 9.0-12.7 fL LAB 771-6(LOINC) nRBC # Bld Auto <0.01 <0.01 k/uL Performed By: #### 11139-2 # ### [facility] NICOLAS [id number] [address] [id number] [place] PROGRESS Observed: 10/26/2024 9:45 AM Status: COMPLETED Source: [facility] HNO ID: [id number] Author: SHANTA RICHARDSON, DO Service: ? Author Type: Physician Type: Progress Notes Filed: 10/26/2024 10:33 Note Text: Heart , Vascular and Thoracic [place] DEPARTMENT OF VASCULAR SURGERY OUTPATIENT VISIT DATE October 26, 2024 OUTPATIENT VISIT TYPE ESTABLISHED SERVICE DATE: 10/26/2024 SERVICE TIME: 10:22 AM PRIMARY CARE PHYSICIAN: Richard Ramsey MD HISTORY OF PRESENT ILLNESS: Mr. Hoffman is a 64 year old male who presents today for a vascular surgery follow-up visit for history of celiac and SMA stenting. This past year he has had multiple episodes and admissions for abdominal pain. No etiology has been identified. Most recent vascular intervention was in [address] Gorman for in-stent stenosis- underwent SMA angioplasty with 6mmx40 and placement of Epic 7x20 stent in SMA. He describes episodes of epigastric pain that would radiate to flanks as well as diffuse cramping. Nothing improves or relieves pain except pain medication. States he has been unable to work secondary to this pain. He was most recently admitted to [facility] in July PAST MEDICAL HISTORY Diagnosis Date Adenomatous colon polyp Arthritis GERD (gastroesophageal reflux disease) Hiatal hernia Hx of fusion of cervical spine Mesenteric artery stenosis (HCC) PAST SURGICAL HISTORY Procedure Laterality Date ADDTL NECK SPINE FUSION 2010 CHOLECYSTECTOMY 2007 COLONOSCOPY 08/11/2024 Tubular Adenomas EGD 12/2022 EGD W/O BRSH SPEC VARICIES INJ 08/11/2024 ESOPHAGOGASTRODUODENOSCOPY TRANSORAL DIAGNOSTIC 09/2014 EGD PAST SURGICAL HISTORY OF 2014 PPH-pierre in rectum/colon PAST SURGICAL HISTORY OF 2018 stent placed in the SMA PAST SURGICAL HISTORY OF 2017 Balloon angioplasty of the celiac artery PAST SURGICAL HISTORY OF 01/2017 Celiac and superior mesenteric artery angioplasty PAST SURGICAL HISTORY OF 08/2016 celiac and SMA angiogram with placement of stent in the celiac and in the SMA. SPINAL CORD STIM PERCT SCS ELCT 2021 stimulator in and removed SOCIAL HISTORY Social History Tobacco Use Smoking status: Every Day Types: Cigarettes Smokeless tobacco: Never Tobacco comments: 10-15 per day Vaping Use Vaping status: Never Used Substance Use Topics Alcohol use: No Comment: very very seldom Drug use: No Comment: used to smoke alcira, 3 to 4 days per week MEDICATIONS: hyoscyamine sublingual (LEVSIN/SL) 0.125 mg Dissolve 1 tablet under the tongue every 4 hours as needed. hyoscyamine SR (LEVBID) 0.375 mg 12 hr tablet Take 1 tablet by mouth two times a day. hyoscyamine (LEVSIN) 0.125 mg tablet Take 1 tablet by mouth every 4 hours as needed for diarrhea (and abdominal pain). acetaminophen 325 mg-caffeine 40 mg-butalbital 50 mg (FIORICET) per tablet Take 1 tablet by mouth every 4 hours as needed for headache. ondansetron orally disintegrating (ZOFRAN ODT) 8 mg disintegrating tablet pantoprazole DR (PROTONIX) 20 mg tablet Take 20 mg by mouth once daily. clopidogrel (PLAVIX) 75 mg tablet Take 75 mg by mouth once daily. aspirin 81 mg chewable tablet Take 1 tablet by mouth once daily. oxyCODONE IR (ROXICODONE) 5 mg immediate release tablet Take 1 tablet by mouth every 8 hours as needed for pain for up to 5 days. rosuvastatin (CRESTOR) 10 mg tablet Take 1 tablet by mouth daily at bedtime. ALLERGIES: ALLERGIES Allergen Reactions Omeprazole Other: See Comments Severe Headaches Senna Unknown Bottom lip swelled. Stopped swelling when senna dc PHYSICAL EXAM: BP 121/80 (BP Site: Left Arm, BP Position: Sitting, BP Cuff Size: Regular Adult) Pulse 92 SpO2 99% General: Alert and oriented Integumentary: Normal color, no rash, no lesions. Abdomen: epigastric tenderness Extremities: No deformity, no edema or tenderness, no joint swelling or clubbing. Neurological: Normal cognition and motor skills. Diagnostic tests reviewed for today's visit: Most recent labs Most recent imaging Mesenteric Duplex Compared to prior study of 05/11/2024, No significant change. Similar findings since 2019 duplex AORTA Patent. Aorta plaque noted without evidence of hemodynamically significant stenosis throughout MESENTERIC VESSELS Celiac: 0-69% stenosis. No evidence of hemodynamically significant stenosis. Stent noted. Hepatic: Patent. Splenic: Patent. Superior mesenteric artery: 70-99% stenosis. Stent noted. In-stent stenosis. Inferior mesenteric artery: 70-99% stenosis. IMPRESSION: Mr. Hoffman is a 64 year old male with mesenteric stenosis s/p celiac and SMA stenting . PLAN and RECOMMENDATIONS: Will arrange for mesenteric angiogram as no gi etiology found on multiple scopes to correlate with significant pain. His stents appear and unchanged on recent duplex. Discussed with patient who is agreeable. Will have office arrange and schedule SIGNATURE: Shanta Richardson DO PATIENT NAME: Rajendra Hoffman DATE: October 26, 2024 TIME: 10:22 AM CNOV Observed: 10/26/2024 8:30 AM Status: COMPLETED Source: [facility] Office Visit (VASSWS) HOFFMANRAJENDRA LITTLEJOHN ([id number]) 1960 M Date Time Provider Department 10/26/24 8:30 AM SHANTA RICHARDSON During your visit today, we recorded the following information about you: Pulse Blood pressure 92/minute 121/80 Shanta Richardson DO 10/26/2024 10:33 AM [facility] Heart , Vascular and Thoracic [place] DEPARTMENT OF VASCULAR SURGERY OUTPATIENT VISIT DATE October 26, 2024 OUTPATIENT VISIT TYPE ESTABLISHED SERVICE DATE: 10/26/2024 SERVICE TIME: 10:22 AM PRIMARY CARE PHYSICIAN: Richard Ramsey MD HISTORY OF PRESENT ILLNESS: Mr. Hoffman is a 64 year old male who presents today for a vascular surgery follow-up visit for history of celiac and SMA stenting. This past year he has had multiple episodes and admissions for abdominal pain. No etiology has been identified. Most recent vascular intervention was in [address] Gorman for in-stent stenosis- underwent SMA angioplasty with 6mmx40 and placement of Epic 7x20 stent in SMA. He describes episodes of epigastric pain that would radiate to flanks as well as diffuse cramping. Nothing improves or relieves pain except pain medication. States he has been unable to work secondary to this pain. He was most recently admitted to [facility] in July PAST MEDICAL HISTORY Diagnosis Date Adenomatous colon polyp Arthritis GERD (gastroesophageal reflux disease) Hiatal hernia Hx of fusion of cervical spine Mesenteric artery stenosis (HCC) PAST SURGICAL HISTORY Procedure Laterality Date ADDTL NECK SPINE FUSION 2010 CHOLECYSTECTOMY 2007 COLONOSCOPY 08/11/2024 Tubular Adenomas EGD 12/2022 EGD W/O BRSH SPEC VARICIES INJ 08/11/2024 ESOPHAGOGASTRODUODENOSCOPY TRANSORAL DIAGNOSTIC 09/2014 EGD PAST SURGICAL HISTORY OF 2014 PPH-pierre in rectum/colon PAST SURGICAL HISTORY OF 2018 stent placed in the SMA PAST SURGICAL HISTORY OF 2017 Balloon angioplasty of the celiac artery PAST SURGICAL HISTORY OF 01/2017 Celiac and superior mesenteric artery angioplasty PAST SURGICAL HISTORY OF 08/2016 celiac and SMA angiogram with placement of stent in the celiac and in the SMA. SPINAL CORD STIM PERCT SCS ELCT 2021 stimulator in and removed SOCIAL HISTORY Social History Tobacco Use Smoking status: Every Day Types: Cigarettes Smokeless tobacco: Never Tobacco comments: 10-15 per day Vaping Use Vaping status: Never Used Substance Use Topics Alcohol use: No Comment: very very seldom Drug use: No Comment: used to smoke [employer], 3 to 4 days per week MEDICATIONS: hyoscyamine sublingual (LEVSIN/SL) 0.125 mg Dissolve 1 tablet under the tongue every 4 hours as needed. hyoscyamine SR (LEVBID) 0.375 mg 12 hr tablet Take 1 tablet by mouth two times a day. hyoscyamine (LEVSIN) 0.125 mg tablet Take 1 tablet by mouth every 4 hours as needed for diarrhea (and abdominal pain). acetaminophen 325 mg-caffeine 40 mg-butalbital 50 mg (FIORICET) per tablet Take 1 tablet by mouth every 4 hours as needed for headache. ondansetron orally disintegrating (ZOFRAN ODT) 8 mg disintegrating tablet pantoprazole DR (PROTONIX) 20 mg tablet Take 20 mg by mouth once daily. clopidogrel (PLAVIX) 75 mg tablet Take 75 mg by mouth once daily. aspirin 81 mg chewable tablet Take 1 tablet by mouth once daily. oxyCODONE IR (ROXICODONE) 5 mg immediate release tablet Take 1 tablet by mouth every 8 hours as needed for pain for up to 5 days. rosuvastatin (CRESTOR) 10 mg tablet Take 1 tablet by mouth daily at bedtime. ALLERGIES: ALLERGIES Allergen Reactions Omeprazole Other: See Comments Severe Headaches Senna Unknown Bottom lip swelled. Stopped swelling when senna dc PHYSICAL EXAM: BP 121/80 (BP Site: Left Arm, BP Position: Sitting, BP Cuff Size: Regular Adult) Pulse 92 SpO2 99% General: Alert and oriented Integumentary: Normal color, no rash, no lesions. Abdomen: epigastric tenderness Extremities: No deformity, no edema or tenderness, no joint swelling or clubbing. Neurological: Normal cognition and motor skills. Diagnostic tests reviewed for today's visit: Most recent labs Most recent imaging Mesenteric Duplex Compared to prior study of 05/11/2024, No significant change. Similar findings since 2019 duplex AORTA Patent. Aorta plaque noted without evidence of hemodynamically significant stenosis throughout MESENTERIC VESSELS Celiac: 0-69% stenosis. No evidence of hemodynamically significant stenosis. Stent noted. Hepatic: Patent. Splenic: Patent. Superior mesenteric artery: 70-99% stenosis. Stent noted. In-stent stenosis. Inferior mesenteric artery: 70-99% stenosis. IMPRESSION: Mr. Hoffman is a 64 year old male with mesenteric stenosis s/p celiac and SMA stenting . PLAN and RECOMMENDATIONS: Will arrange for mesenteric angiogram as no gi etiology found on multiple scopes to correlate with significant pain. His stents appear and unchanged on recent duplex. Discussed with patient who is agreeable. Will have office arrange and schedule SIGNATURE: Shanta Richardson DO PATIENT NAME: Rajendra Hoffman DATE: October 26, 2024 TIME: 10:22 AM Shanta Richardson DO 10/26/2024 11:29 AM Signed Addended by: SHANTA RICHARDSON on: 10/26/2024 11:29 AM Modules accepted: Orders Allergies As of Date: 10/26/2024 Noted Allergy Reaction OMEPRAZOLE 05/26/2015 14 - Other: See Comments Comments: Severe Headaches SENNA 02/09/2023 16 - Unknown Comments: Bottom lip swelled. Stopped swelling when senna dc Date Reviewed: 10/26/2024 Reviewed by: Maria C Hutton OCCA - Fully Assessed Reason for Visit: Established Patient [175] Primary Visit Diagnosis:Chronic mesenteric ischemia (HCC) [K55.1] Other Visit Diagnosis:Mesenteric artery stenosis (HCC) [K55.1] Order(s):oxyCODONE IR (ROXICODONE) 5 mg immediate release tabletTake 1 tablet by mouth every 8 hours as needed for pain for up to 5 days.Disp: 15 tabletRfl: 0 COMPLETE BLOOD COUNT [SQCBC] Order #: [id number] FUTURE COMPREHENSIVE METABOLIC PANEL [SQCMP] Order #: [id number] FUTURE Prescriptions as of 10/26/2024 - oxyCODONE IR (ROXICODONE) 5 mg immediate release tablet Take 1 tablet by mouth every 8 hours as needed for pain for up to 5 days. - hyoscyamine sublingual (LEVSIN/SL) 0.125 mg Dissolve 1 tablet under the tongue every 4 hours as needed. - hyoscyamine SR (LEVBID) 0.375 mg 12 hr tablet Take 1 tablet by mouth two times a day. - hyoscyamine (LEVSIN) 0.125 mg tablet Take 1 tablet by mouth every 4 hours as needed for diarrhea (and abdominal pain). - acetaminophen 325 mg-caffeine 40 mg-butalbital 50 mg (FIORICET) per tablet Take 1 tablet by mouth every 4 hours as needed for headache. - ondansetron orally disintegrating (ZOFRAN ODT) 8 mg disintegrating tablet - pantoprazole DR (PROTONIX) 20 mg tablet Take 20 mg by mouth once daily. - clopidogrel (PLAVIX) 75 mg tablet Take 75 mg by mouth once daily. - rosuvastatin (CRESTOR) 10 mg tablet Take 1 tablet by mouth daily at bedtime. - aspirin 81 mg chewable tablet Take 1 tablet by mouth once daily. 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] 03/27/2009 Median arcuate ligament syndrome (HCC) [I77.4] 09/16/2016 Epigastric pain [R10.13] 09/16/2016 Severe protein-calorie malnutrition (HCC) [E43] 09/16/2016 History of cholangitis [Z87.19] 09/16/2016 Lower abdominal pain [R10.30] 06/27/2017 Chronic mesenteric ischemia (HCC) [K55.1] 06/26/2017 Nicotine use disorder, F17.2 [F17.200] 06/27/2017 Polycythemia [D75.1] 08/24/2018 Gastroesophageal reflux disease without esophag*08/24/2018 Duodenitis [K29.80] 01/13/2023 Gastric ulcer [K25.9] 01/13/2023 Irritable bowel syndrome [K58.9] 01/13/2023 S/P arterial stent [Z95.9] 01/13/2023 Chronic abdominal pain [R10.9, G89.29] 01/13/2023 Atherosclerosis of superior mesenteric artery (*01/16/2023 Gastritis and gastroduodenitis [K29.70, K29.90] 01/17/2023 Acute post-operative pain [G89.18] 01/31/2023 Neck pain, chronic [M54.2, G89.29] 01/31/2023 Encounter for palliative care involving managem*01/31/2023 Encounter for pain management [R52] 01/31/2023 S/P partial gastrectomy [Z90.3] 02/10/2023 Degenerative disc disease, cervical [M50.30] 02/10/2023 Nausea and vomiting [R11.2] 02/10/2023 Gastrointestinal hemorrhage [K92.2] 02/11/2023 Mesenteric ischemia (HCC) [K55.9] 02/11/2023 Abdominal pain [R10.9] 05/18/2024 Colonic stricture (HCC) [K56.699] 08/10/2024 Prescriptions ordered this encounter Disp Refills Start End OXYCODONE 5 MG TABLET 15 t* 0 10/26/2024 10/31/2024 Route: ORAL Sig: Take 1 tablet by mouth every 8 hours as needed for pain for up to 5 days. Encounter Status:Closed by SHANTA RICHARDSON on 10/26/24 MESENTERIC ARTERY CMPLT VAS LAB Observed: 10/26/2024 8:11 AM Status: F Source: [facility]-Invasive [facility]ascular [facility] Renal or Mesenteric Duplex Bilateral/Complete Date of service/time: 10/26/2024 8:11:22 AM Name: MR. RAJENDRA HOFFMAN Date of : 1960 Age: 64 years Gender: M Clinical Indication Atherosclerosis-other specified arteries. TECHNIQUE -------- A visceral duplex ultrasound examination was performed, including grayscale imaging and color Doppler and spectral Doppler examination of the below mentioned arteries and veins. FINDINGS -------- Aorta proximal PSV: 66 cm/s. EDV: 15 cm/s. Aorta at renals PSV: 57 cm/s. EDV: 19 cm/s. Aorta mid PSV: 55 cm/s. EDV: 0 cm/s. Aorta distal PSV: 64 cm/s. EDV: 0 cm/s. Celiac origin PSV: 120 cm/s. EDV: 21 cm/s. Celiac proximal PSV: 176 cm/s. EDV: 36 cm/s. Celiac mid PSV: 235 cm/s. EDV: 53 cm/s. Celiac distal PSV: 135 cm/s. EDV: 35 cm/s. Hepatic proximal PSV: 76 cm/s. EDV: 21 cm/s. Splenic proximal PSV: 113 cm/s. EDV: 31 cm/s. Superior mesenteric artery origin PSV: 132 cm/s. EDV: 38 cm/s. Superior mesenteric artery proximal PSV: 325 cm/s. EDV: 92 cm/s. Superior mesenteric artery mid PSV: 247 cm/s. EDV: 69 cm/s. Superior mesenteric artery distal PSV: 128 cm/s. EDV: 43 cm/s. Inferior mesenteric artery origin PSV: 551 cm/s. EDV: 141 cm/s. Inferior mesenteric artery proximal PSV: 95 cm/s. EDV: 12 cm/s. Inferior mesenteric artery mid PSV: 114 cm/s. EDV: 25 cm/s. IMPRESSION Compared to prior study of 05/11/2024, No significant change. AORTA Patent. Aorta plaque noted without evidence of hemodynamically significant stenosis throughout MESENTERIC VESSELS Celiac: 0-69% stenosis. No evidence of hemodynamically significant stenosis. Stent noted. Hepatic: Patent. Splenic: Patent. Superior mesenteric artery: 70-99% stenosis. Stent noted. In-stent stenosis. Inferior mesenteric artery: 70-99% stenosis. Technologist: Dariana Nima BA, RVT Ordering physician: SHANTA RICHARDSON Interpreting physician: Kody Chapa MD, RPJORDI Final CC [employer] Image : [id number] See Link below for Image CNPN Observed: 10/26/2024 12:00 AM Status: COMPLETED Source: [facility] Telephone ([employer]) RAJENDRA HOFFMAN ([id number]) 1960 M Date Time Provider Department 10/26/24 ARELY CRUZ [facility] During your visit today, we recorded the following information about you: Abigail Ahmadi 10/26/2024 3:34 PM Signed I called the patient and tried to go over everything with the patient and he was not under the impression that this was a procedure of any sort. He was asking many questions that I did not have the answers to. Dr. Richardson told him that this was something else or at least that is the way he understood it. Can you please call him and explain what is happening with him? Allergies As of Date: 10/26/2024 Noted Allergy Reaction OMEPRAZOLE 05/26/2015 14 - Other: See Comments Comments: Severe Headaches SENNA 02/09/2023 16 - Unknown Comments: Bottom lip swelled. Stopped swelling when senna dc Date Reviewed: 10/26/2024 Reviewed by: Maria C Hutton OCCA - Fully Assessed Reason for Visit: Patient Question [2877] Prescriptions as of 10/27/2024 - oxyCODONE IR (ROXICODONE) 5 mg immediate release tablet Take 1 tablet by mouth every 8 hours as needed for pain for up to 5 days. - hyoscyamine sublingual (LEVSIN/SL) 0.125 mg Dissolve 1 tablet under the tongue every 4 hours as needed. - hyoscyamine SR (LEVBID) 0.375 mg 12 hr tablet Take 1 tablet by mouth two times a day. - hyoscyamine (LEVSIN) 0.125 mg tablet Take 1 tablet by mouth every 4 hours as needed for diarrhea (and abdominal pain). - acetaminophen 325 mg-caffeine 40 mg-butalbital 50 mg (FIORICET) per tablet Take 1 tablet by mouth every 4 hours as needed for headache. - ondansetron orally disintegrating (ZOFRAN ODT) 8 mg disintegrating tablet - pantoprazole DR (PROTONIX) 20 mg tablet Take 20 mg by mouth once daily. - clopidogrel (PLAVIX) 75 mg tablet Take 75 mg by mouth once daily. - rosuvastatin (CRESTOR) 10 mg tablet Take 1 tablet by mouth daily at bedtime. - aspirin 81 mg chewable tablet Take 1 tablet by mouth once daily. 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] 03/27/2009 Median arcuate ligament syndrome (HCC) [I77.4] 09/16/2016 Epigastric pain [R10.13] 09/16/2016 Severe protein-calorie malnutrition (HCC) [E43] 09/16/2016 History of cholangitis [Z87.19] 09/16/2016 Lower abdominal pain [R10.30] 06/27/2017 Chronic mesenteric ischemia (HCC) [K55.1] 06/26/2017 Nicotine use disorder, F17.2 [F17.200] 06/27/2017 Polycythemia [D75.1] 08/24/2018 Gastroesophageal reflux disease without esophag*08/24/2018 Duodenitis [K29.80] 01/13/2023 Gastric ulcer [K25.9] 01/13/2023 Irritable bowel syndrome [K58.9] 01/13/2023 S/P arterial stent [Z95.9] 01/13/2023 Chronic abdominal pain [R10.9, G89.29] 01/13/2023 Atherosclerosis of superior mesenteric artery (*01/16/2023 Gastritis and gastroduodenitis [K29.70, K29.90] 01/17/2023 Acute post-operative pain [G89.18] 01/31/2023 Neck pain, chronic [M54.2, G89.29] 01/31/2023 Encounter for palliative care involving managem*01/31/2023 Encounter for pain management [R52] 01/31/2023 S/P partial gastrectomy [Z90.3] 02/10/2023 Degenerative disc disease, cervical [M50.30] 02/10/2023 Nausea and vomiting [R11.2] 02/10/2023 Gastrointestinal hemorrhage [K92.2] 02/11/2023 Mesenteric ischemia (HCC) [K55.9] 02/11/2023 Abdominal pain [R10.9] 05/18/2024 Colonic stricture (HCC) [K56.699] 08/10/2024 Encounter Status:Closed by ABIGAIL AHMADI on 10/27/24 VIC Observed: 10/26/2024 12:00 AM Status: COMPLETED Source: [facility] Telephone ([employer]) RAJENDRA HOFFMAN ([id number]) 1960 M Date Time Provider Department 10/26/24 ARELY CRUZ During your visit today, we recorded the following information about you: Allergies As of Date: 10/26/2024 Noted Allergy Reaction OMEPRAZOLE 05/26/2015 14 - Other: See Comments Comments: Severe Headaches SENNA 02/09/2023 16 - Unknown Comments: Bottom lip swelled. Stopped swelling when senna dc Date Reviewed: 10/26/2024 Reviewed by: Maria C Hutton OCCA - Fully Assessed Reason for Visit: Schedule Surgery [1330] Primary Visit Diagnosis:Chronic mesenteric ischemia (HCC) [K55.1] Order(s):SURGICAL REQUEST - ELECTIVE (01/2020) [[id number]] Order #: [id number]: 1 Prescriptions as of 10/26/2024 - oxyCODONE IR (ROXICODONE) 5 mg immediate release tablet Take 1 tablet by mouth every 8 hours as needed for pain for up to 5 days. - hyoscyamine sublingual (LEVSIN/SL) 0.125 mg Dissolve 1 tablet under the tongue every 4 hours as needed. - hyoscyamine SR (LEVBID) 0.375 mg 12 hr tablet Take 1 tablet by mouth two times a day. - hyoscyamine (LEVSIN) 0.125 mg tablet Take 1 tablet by mouth every 4 hours as needed for diarrhea (and abdominal pain). - acetaminophen 325 mg-caffeine 40 mg-butalbital 50 mg (FIORICET) per tablet Take 1 tablet by mouth every 4 hours as needed for headache. - ondansetron orally disintegrating (ZOFRAN ODT) 8 mg disintegrating tablet - pantoprazole DR (PROTONIX) 20 mg tablet Take 20 mg by mouth once daily. - clopidogrel (PLAVIX) 75 mg tablet Take 75 mg by mouth once daily. - rosuvastatin (CRESTOR) 10 mg tablet Take 1 tablet by mouth daily at bedtime. - aspirin 81 mg chewable tablet Take 1 tablet by mouth once daily. 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] 03/27/2009 Median arcuate ligament syndrome (HCC) [I77.4] 09/16/2016 Epigastric pain [R10.13] 09/16/2016 Severe protein-calorie malnutrition (HCC) [E43] 09/16/2016 History of cholangitis [Z87.19] 09/16/2016 Lower abdominal pain [R10.30] 06/27/2017 Chronic mesenteric ischemia (HCC) [K55.1] 06/26/2017 Nicotine use disorder, F17.2 [F17.200] 06/27/2017 Polycythemia [D75.1] 08/24/2018 Gastroesophageal reflux disease without esophag*08/24/2018 Duodenitis [K29.80] 01/13/2023 Gastric ulcer [K25.9] 01/13/2023 Irritable bowel syndrome [K58.9] 01/13/2023 S/P arterial stent [Z95.9] 01/13/2023 Chronic abdominal pain [R10.9, G89.29] 01/13/2023 Atherosclerosis of superior mesenteric artery (*01/16/2023 Gastritis and gastroduodenitis [K29.70, K29.90] 01/17/2023 Acute post-operative pain [G89.18] 01/31/2023 Neck pain, chronic [M54.2, G89.29] 01/31/2023 Encounter for palliative care involving managem*01/31/2023 Encounter for pain management [R52] 01/31/2023 S/P partial gastrectomy [Z90.3] 02/10/2023 Degenerative disc disease, cervical [M50.30] 02/10/2023 Nausea and vomiting [R11.2] 02/10/2023 Gastrointestinal hemorrhage [K92.2] 02/11/2023 Mesenteric ischemia (HCC) [K55.9] 02/11/2023 Abdominal pain [R10.9] 05/18/2024 Colonic stricture (HCC) [K56.699] 08/10/2024 Encounter Status:Closed by ABIGAIL AHMADI on 10/26/24 CNOV Observed: 10/06/2024 1:00 PM Status: COMPLETED Source: [facility] Office Visit (GASTMN) RAJENDRA HOFFMAN ([id number]) 1960 M Date Time Provider Department 10/06/24 1:00 PM DARVIN GARCIA GASTMN During your visit today, we recorded the following information about you: Pulse Blood pressure Weight Height 76/minute 107/73 51.3 kg 1.778 m Darvin Garcia MD 10/06/2024 1:23 PM Addendum Tao Medeiros Consultation requested by Dr. Medeiros for an opinion regarding abdominal pain. My final recommendations will be communicated back to the requesting physician by way of shared Medical record or letter to requesting physician via US mail. BP 107/73 Pulse 76 Ht 177.8 cm (5' 10) Wt 51.3 kg (113 lb 3.2 oz) SpO2 99% BMI 16.24 kg/m? Medications: Current Outpatient Medications Medication Sig hyoscyamine sublingual (LEVSIN/SL) 0.125 mg Dissolve 1 tablet under the tongue every 4 hours as needed. hyoscyamine SR (LEVBID) 0.375 mg 12 hr tablet Take 1 tablet by mouth two times a day. hyoscyamine (LEVSIN) 0.125 mg tablet Take 1 tablet by mouth every 4 hours as needed for diarrhea (and abdominal pain). acetaminophen 325 mg-caffeine 40 mg-butalbital 50 mg (FIORICET) per tablet Take 1 tablet by mouth every 4 hours as needed for headache. ondansetron orally disintegrating (ZOFRAN ODT) 8 mg disintegrating tablet pantoprazole DR (PROTONIX) 20 mg tablet Take 20 mg by mouth once daily. clopidogrel (PLAVIX) 75 mg tablet Take 75 mg by mouth once daily. aspirin 81 mg chewable tablet Take 1 tablet by mouth once daily. rosuvastatin (CRESTOR) 10 mg tablet Take 1 tablet by mouth daily at bedtime. No current facility-administered medications for this visit. Subjective: This 64 year old male patient with intermittent severe abd pain, every 2-3 months, associated with reduced bm's burping, no appetite. Can last 12 days and assoc with 20# wt. Loss. When well, he has no problems. 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 Since surgery, vomiting has not returned. Also with celiac and SMA stents. Recent CTA - stenosis in the stents. Last colonoscopy 08/17 - polyps, otherwise normal. Could do the complete colonoscopy, although previous colonoscopies could not be completed due to turtuosity. . Physical Examination: General Appearance: alert, oriented x 3, pleasant and in no acute distress Heart: regular rate and rhythm, no murmurs or gallops Lungs: breath sounds clear to auscultation bilaterally, no crackles, rhonchi, or wheezes Abdomen: not distended, normal bowel sounds, soft and depressible, no guarding or rebound no palpable mass no organomegaly Extremities: no cyanosis or edema CBC: @LASTLABX(WBC:2,HB,MCV,PLT,neut,lymphp])@ CMP: Alkaline Phosphatase (U/L) Date Value 05/18/2024 173 (H) AST (U/L) Date Value 05/18/2024 21 ALT (U/L) Date Value 05/18/2024 12 Bilirubin, Total (mg/dL) Date Value 05/18/2024 0.4 Bilirubin, Direct (mg/dL) Date Value 01/21/2023 <0.2 Glucose (mg/dL) Date Value 08/11/2024 70 (L) BUN (mg/dL) Date Value 08/11/2024 6 (L) Creatinine (mg/dL) Date Value 08/11/2024 0.83 Sodium (mmol/L) Date Value 08/11/2024 138 Chloride (mmol/L) Date Value 08/11/2024 98 CO2 (mmol/L) Date Value 08/11/2024 23 Protein, Total (g/dL) Date Value 05/18/2024 7.4 Albumin (g/dL) Date Value 05/18/2024 4.4 Calcium, Total (mg/dL) Date Value 08/11/2024 9.4 TSH: TSH (uU/mL) Date Value 08/24/2018 5.030 Impression and Plan: abd pain - pt is scheduled for mesenteric ultrasound 10/26/24 and consult with Vascular Surgery (Dr. Richardson). Will ask Dr. Richardson to copy me on the findings and her recommendations. Will also ask Nutrition to consult. I have confirmed and edited as necessary PFSH and ROS obtained by others. Darvin Garcia MD Date: October 06, 2024 Darvin Garcia MD 10/06/2024 1:23 PM Signed Addended by: DARVIN GARCIA on: 10/06/2024 01:23 PM Modules accepted: Orders Referring Provider: TAO MEDEIROS [[id number]] Allergies As of Date: 10/06/2024 Noted Allergy Reaction OMEPRAZOLE 05/26/2015 14 - Other: See Comments Comments: Severe Headaches SENNA 02/09/2023 16 - Unknown Comments: Bottom lip swelled. Stopped swelling when senna dc Date Reviewed: 10/06/2024 Reviewed by: Anshu Meza - Fully Assessed Reason for Visit: New Patient [172] Cmt: Lower abdominal pain Visit Diagnosis:Lower abdominal pain [R10.30] Order(s):CONSULT TO GASTROENTEROLOGY [9010] Order #: [id number]: 1 CONSULT TO NUTRITION THERAPY [9020] Order #: [id number]: 4 FUTURE Prescriptions as of 10/06/2024 - hyoscyamine sublingual (LEVSIN/SL) 0.125 mg Dissolve 1 tablet under the tongue every 4 hours as needed. - hyoscyamine SR (LEVBID) 0.375 mg 12 hr tablet Take 1 tablet by mouth two times a day. - hyoscyamine (LEVSIN) 0.125 mg tablet Take 1 tablet by mouth every 4 hours as needed for diarrhea (and abdominal pain). - acetaminophen 325 mg-caffeine 40 mg-butalbital 50 mg (FIORICET) per tablet Take 1 tablet by mouth every 4 hours as needed for headache. - ondansetron orally disintegrating (ZOFRAN ODT) 8 mg disintegrating tablet - pantoprazole DR (PROTONIX) 20 mg tablet Take 20 mg by mouth once daily. - clopidogrel (PLAVIX) 75 mg tablet Take 75 mg by mouth once daily. - rosuvastatin (CRESTOR) 10 mg tablet Take 1 tablet by mouth daily at bedtime. - aspirin 81 mg chewable tablet Take 1 tablet by mouth once daily. 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] 03/27/2009 Median arcuate ligament syndrome (HCC) [I77.4] 09/16/2016 Epigastric pain [R10.13] 09/16/2016 Severe protein-calorie malnutrition (HCC) [E43] 09/16/2016 History of cholangitis [Z87.19] 09/16/2016 Lower abdominal pain [R10.30] 06/27/2017 Chronic mesenteric ischemia (HCC) [K55.1] 06/26/2017 Nicotine use disorder, F17.2 [F17.200] 06/27/2017 Polycythemia [D75.1] 08/24/2018 Gastroesophageal reflux disease without esophag*08/24/2018 Duodenitis [K29.80] 01/13/2023 Gastric ulcer [K25.9] 01/13/2023 Irritable bowel syndrome [K58.9] 01/13/2023 S/P arterial stent [Z95.9] 01/13/2023 Chronic abdominal pain [R10.9, G89.29] 01/13/2023 Atherosclerosis of superior mesenteric artery (*01/16/2023 Gastritis and gastroduodenitis [K29.70, K29.90] 01/17/2023 Acute post-operative pain [G89.18] 01/31/2023 Neck pain, chronic [M54.2, G89.29] 01/31/2023 Encounter for palliative care involving managem*01/31/2023 Encounter for pain management [R52] 01/31/2023 S/P partial gastrectomy [Z90.3] 02/10/2023 Degenerative disc disease, cervical [M50.30] 02/10/2023 Nausea and vomiting [R11.2] 02/10/2023 Gastrointestinal hemorrhage [K92.2] 02/11/2023 Mesenteric ischemia (HCC) [K55.9] 02/11/2023 Abdominal pain [R10.9] 05/18/2024 Colonic stricture (HCC) [K56.699] 08/10/2024 Encounter Status:Closed by DARVIN GARCIA on 10/06/24 PROGRESS Observed: 10/06/2024 12:59 PM Status: COMPLETED Source: [facility] HNO ID: [id number] Author: DARVIN GARCIA MD Service: ? Author Type: Physician Type: Progress Notes Filed: 10/06/2024 13:23 Note Text: Tao Medeiros Consultation requested by Dr. Medeiros for an opinion regarding abdominal pain. My final recommendations will be communicated back to the requesting physician by way of shared Medical record or letter to requesting physician via US mail. BP 107/73 Pulse 76 Ht 177.8 cm (5' 10) Wt 51.3 kg (113 lb 3.2 oz) SpO2 99% BMI 16.24 kg/m? Medications: Current Outpatient Medications Medication Sig hyoscyamine sublingual (LEVSIN/SL) 0.125 mg Dissolve 1 tablet under the tongue every 4 hours as needed. hyoscyamine SR (LEVBID) 0.375 mg 12 hr tablet Take 1 tablet by mouth two times a day. hyoscyamine (LEVSIN) 0.125 mg tablet Take 1 tablet by mouth every 4 hours as needed for diarrhea (and abdominal pain). acetaminophen 325 mg-caffeine 40 mg-butalbital 50 mg (FIORICET) per tablet Take 1 tablet by mouth every 4 hours as needed for headache. ondansetron orally disintegrating (ZOFRAN ODT) 8 mg disintegrating tablet pantoprazole DR (PROTONIX) 20 mg tablet Take 20 mg by mouth once daily. clopidogrel (PLAVIX) 75 mg tablet Take 75 mg by mouth once daily. aspirin 81 mg chewable tablet Take 1 tablet by mouth once daily. rosuvastatin (CRESTOR) 10 mg tablet Take 1 tablet by mouth daily at bedtime. No current facility-administered medications for this visit. Subjective: This 64 year old male patient with intermittent severe abd pain, every 2-3 months, associated with reduced bm's burping, no appetite. Can last 12 days and assoc with 20# wt. Loss. When well, he has no problems. 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 Since surgery, vomiting has not returned. Also with celiac and SMA stents. Recent CTA - stenosis in the stents. Last colonoscopy 08/17 - polyps, otherwise normal. Could do the complete colonoscopy, although previous colonoscopies could not be completed due to turtuosity. . Physical Examination: General Appearance: alert, oriented x 3, pleasant and in no acute distress Heart: regular rate and rhythm, no murmurs or gallops Lungs: breath sounds clear to auscultation bilaterally, no crackles, rhonchi, or wheezes Abdomen: not distended, normal bowel sounds, soft and depressible, no guarding or rebound no palpable mass no organomegaly Extremities: no cyanosis or edema CBC: @LASTLABX(WBC:2,HB,MCV,PLT,neut,lymphp])@ CMP: Alkaline Phosphatase (U/L) Date Value 05/18/2024 173 (H) AST (U/L) Date Value 05/18/2024 21 ALT (U/L) Date Value 05/18/2024 12 Bilirubin, Total (mg/dL) Date Value 05/18/2024 0.4 Bilirubin, Direct (mg/dL) Date Value 01/21/2023 <0.2 Glucose (mg/dL) Date Value 08/11/2024 70 (L) BUN (mg/dL) Date Value 08/11/2024 6 (L) Creatinine (mg/dL) Date Value 08/11/2024 0.83 Sodium (mmol/L) Date Value 08/11/2024 138 Chloride (mmol/L) Date Value 08/11/2024 98 CO2 (mmol/L) Date Value 08/11/2024 23 Protein, Total (g/dL) Date Value 05/18/2024 7.4 Albumin (g/dL) Date Value 05/18/2024 4.4 Calcium, Total (mg/dL) Date Value 08/11/2024 9.4 TSH: TSH (uU/mL) Date Value 08/24/2018 5.030 Impression and Plan: abd pain - pt is scheduled for mesenteric ultrasound 10/26/24 and consult with Vascular Surgery (Dr. Richardson). Will ask Dr. Rcihardson to copy me on the findings and her recommendations. Will also ask Nutrition to consult. I have confirmed and edited as necessary PFSH and ROS obtained by others. Darvin Garcia MD Date: October 06, 2024 PROGRESS Observed: 08/31/2024 10:23 AM Status: COMPLETED Source: [facility] HNO ID: [id number] Author: TAO MEDEIROS MD Service: ? Author Type: Physician Type: Progress Notes Filed: 08/31/2024 10:36 Note Text: Tao Medeiros M.D. Surgical Oncology [address] [place] [address], [address] [place] [id number] TELEPHONE VISIT NOTE I have communicated my name and active licensure. The patient's identity and physical location were verified at the time of this visit. Either the patient or their legal auto service representative has been informed of the risks and benefits of -- and alternatives to -- treatment through a remote evaluation and consents to proceed with the evaluation remotely. Rajendra Hoffman is a 64-year-old male presenting for evaluation of recurrent abdominal cramping. Rajendra reports recurrent abdominal cramping, which has been a chronic problem. He has been experiencing severe cramping over the past few days, describing the pain as so bad that he sometimes requires medication for relief. He notes that the pain is not as severe today as it was during a recent hospitalization. He also reports a peculiar symptom that has occurred approximately five times, most recently over the past weekend. While sitting on the toilet and experiencing cramping in the kidney areas and sides, he experiences a sudden onset of excessive salivation, described as water just starts pouring out of my mouth. This episode lasts for a few minutes, during which he needs to hold a towel to his mouth to manage the excessive salivation. He denies any associated nausea during these episodes and denies a history of GERD. Rajendra expresses concern about the impact of his symptoms on his ability to work, stating, I'm scared to this is going to cost me my job. He is worried about his employability due to his age and physical problems. The ROS, medical, surgical, family, and social history were reviewed by Tao Medeiros MD Labs (No diagnostic laboratory results discussed.) Imaging - CT Scan: No abnormalities identified. Tests - Colonoscopy (most recent): Three low-risk polyps identified on pathology. Tortuous sigmoid colon without stricture or scarring. - Upper Endoscopy: No abnormalities. - (April) Colonoscopy: No polyps detected. ASSESSMENT AND PLAN 64 year old man with chronic abdominal pain. Initially there was some concern that he may have a colonic stricture however on his colonoscopy during his hospitalization this appeared normal. I am uncertain of the etiology of his pain but I do not see an identifiable surgical cause. I advised patient that I would like to refer him to GI at the [facility] [place] for an opinion. I answered his questions and he was agreeable to this plan. The patient consented to the use of [employer] software for draft documentation of the visit consistent with [facility]?s Notice of Privacy Practices. I spent a total of 20 minutes on the date of the service which included preparing to see the patient, completing clinical documentation, and counseling and educating the patient/family/caregiver. Tao Medeiros MD 08/31/2024 10:34 AM CNDS Observed: 08/11/2024 5:45 PM Status: COMPLETED Source: [facility] HNO ID: [id number] Author: TAO MEDEIROS MD Service: General Surgery Author Type: Resident Type: Discharge Summary Filed: 08/12/2024 08:03 Note Text: Attestation signed by Tao Medeiros MD at 08/12/2024 8:03 AM I personally saw and examined the patient. I reviewed the resident's note. I agree with the resident's assessment and plan except as noted below. Plan of care discussed with: Provider, RN, Patient. DISCHARGE SUMMARY PATIENT NAME: Rajendra Hoffman Code Status: Prior Highest Readmission Risk Score: 12 The 30 day readmissions risk score is derived from an internally validated risk model which evaluates patient level characteristics, utilization history, medication orders and lab results up until the day of discharge. Patients with a score of 40 or above are considered highest risk for readmission. Specific patient level drivers will be listed at the bottom of the summary. Admission Information Admission Information ADMIT DATE: 08/10/2024 DISCHARGE DATE: 08/11/2024 MY DOCTORS AND MEDICAL TEAM: [facility] Doctor: Tao Medeiros MD Primary Care Provider: Richard Ramsey MD My Medical Team Members: Treatment Team: Attending Provider: Tao Medeiros MD Consulting: Madalyn Mcmillan MD MY CONDITION AT DISCHARGE: Stable REASON I WAS IN THE HOSPITAL: colonic stricture SUMMARY OF WHAT HAPPENED WHILE I WAS IN THE HOSPITAL: Patient was a direct admit for colonic stricture on 08/10. Patient underwent scopes with gastroenterology on 08/11. Patient is stable to discharge home. OTHER PROBLEMS/DIAGNOSIS: Principal Problem: Colonic stricture (HCC) Resolved Problems: * No resolved hospital problems. * OPERATIONS PERFORMED WHILE IN THE HOSPITAL: None IMPORTANT TEST/PROCEDURES: No procedures performed TEST RESULTS NOT AVAILABLE AT THIS TIME: No pending results Discharge Disposition Discharge Disposition: Home With Self Care Activity When You Leave the Hospital May use stairs No driving for: Opioid duration No walking restrictions Diet Instructions Regular For Pain When You Leave the Hospital Use acetaminophen (Tylenol) as recommended on the bottle Use the dispensed medication (see prescription) Call Your Doctor If There is an unusual odor from the wound area There is severe pain at the operative site You have persistent nausea/vomiting over 24 hours You have persistent or heavy bleeding You have redness, swelling, pus or drainage from the wound Your temperature is greater than 101F Treatment Team: Attending Provider: Tao Medeiros MD Consulting: Madalyn Mcmillan MD FOLLOW-UP APPOINTMENTS ALREADY SCHEDULED WITH A [facility] PROVIDER: Future Appointments Date Time Provider Department Center 08/18/2024 8:[address] PREP [facility] 08/18/2024 10:[address] [facility] 08/31/2024 11:00 AM Tao Medeiros MD [facility] 09/03/2024 8:30 AM George Clements MD [facility] 10/26/2024 8:00 AM [facility] 10/26/2024 8:30 AM Shanta Richardson DO [facility] ALLERGIES Allergen Reactions Omeprazole Other: See Comments Severe Headaches Senna Unknown Bottom lip swelled. Stopped swelling when senna dc DISCHARGE MEDICATION: Medication List START taking these medications oxyCODONE IR 5 mg immediate release tablet Commonly known as: ROXICODONE Take 1 tablet by mouth every 6 hours as needed for pain for up to 3 days. CONTINUE taking these medications acetaminophen 325 mg-caffeine 40 mg-butalbital 50 mg per tablet Commonly known as: FIORICET aspirin 81 mg chewable tablet Take 1 tablet by mouth once daily. clopidogrel 75 mg tablet Commonly known as: PLAVIX * hyoscyamine 0.125 mg tablet Commonly known as: LEVSIN Take 1 tablet by mouth every 4 hours as needed for diarrhea (and abdominal pain). * hyoscyamine SR 0.375 mg 12 hr tablet Commonly known as: LEVBID Take 1 tablet by mouth two times a day. * hyoscyamine sublingual 0.125 mg Commonly known as: LEVSIN/SL Dissolve 1 tablet under the tongue every 4 hours as needed. ondansetron orally disintegrating 8 mg disintegrating tablet Commonly known as: ZOFRAN ODT PROTONIX 20 mg tablet Generic drug: pantoprazole rosuvastatin 10 mg tablet Commonly known as: CRESTOR Take 1 tablet by mouth daily at bedtime. * This list has 3 medication(s) that are the same as other medications prescribed for you. Read the directions carefully, and ask your doctor or other care provider to review them with you. Where to Get Your Medications These medications were sent to [facility] [address] [place] [phone] [facility] - [phone] [place] [id number] oxyCODONE IR 5 mg immediate release tablet The patient's risk for 30-day readmission is determined using the following contributing factors: Pt variables contributing to increased readmission risk: 11 Active Medication Orders 9.2 First Resulted Calcium During Admission 6 Most Recent BUN Result 1 Previous ED Visit (6 mos.)? 1 Number of Previous ED Visits (6 mos.) 1 Insurance - Private Coverage 1 Discharge Disposition - Home 1 Active Anticoagulant SIGNATURE: Michelle Martines DO DATE: August 11, 2024 TIME: 5:45 PM ANES POSTPROC EVAL Observed: 08/11/2024 3:21 PM Status: [id number] Author: HOLGER JACOBSON MD Service: Anesthesiology Author Type: Anesthesiologist Type: Anesthesia Postprocedure Evaluation Filed: 08/11/2024 15:22 Note Text: POST ANESTHESIA EVALUATION NOTE : 1960 Procedure Summary Date: 08/11/24 Room / Location: [facility] Anesthesia Start: 1213 Anesthesia Stop: 7 Procedures: COLONOSCOPY DIAGNOSTIC EGD DIAGNOSTIC Diagnosis: (Epigastric abdominal pain) Scheduled Providers: Madalyn Mcmillan MD Responsible Provider: Holger Jacobson MD Anesthesia Type: MAC ASA Status: 4 Anesthesia Type: MAC Last Vitals Vitals Value Taken Time BP 106/76 08/11/24 1350 Temp 36.2 ?C (97.2 ?F) 08/11/24 1315 Pulse 61 08/11/24 1350 Resp 15 08/11/24 1350 SpO2 95 % 08/11/24 1350 Post Anesthesia Patient Status Patient Evaluation: PACU. PACU/ICU Patient Condition: stable. Neurological Status: aware and responsive. Pulmonary Status: breathing comfortably on supplemental oxygen Airway Control: returned to baseline unsupported. Cardiovascular Status: stable. Pain Management: clinically adequate Postoperative Hydration: acceptable. Intraoperative Events: no significant anesthesia events Post Operative Nausea/Vomiting Status: no significant post operative nausea or vomiting Recommendation: continue current plan of care. Anesthesia Observations No Documentation SIGNATURE: Holger Jacobson MD PATIENT NAME: Rajendra Hoffman DATE: August 11, 2024 TIME: 3:21 PM CSN: [id number] NURSING PROG Observed: 08/11/2024 1:45 PM Status: COMPLETED Source: [facility] HNO ID: [id number] Author: JACY MARR RN Service: Nursing Author Type: Registered Nurse Type: Nursing Progress Note Filed: 08/11/2024 13:50 Note Text: Dr. Jacobson made aware of 5/10 pain LLQ. OK to give 50 mcg Fentanyl. TISS PATH BX REPORT Collected: 08/11/19 12:29 PM Status: F Source: [facility] Order Comment: Specimen Type : TISSUE SPECIMEN Ordering Facility: [facility] Address: [address] [place] [address] TYPE CODE TESTS RESULT OUT OF RANGE REFERENCE UNITS PATHOLOGY [id number] CASE REPORT Result Comment: Surgical Pat hology Report Case: [id number] Authorizing Provider: Madalyn Mcmillan, Collected: 08/11/2024 12:29 PM Ordering Location: [facility] Received: 08/12/2024 08:46 AM Pathologist: Zita Buckner MD Specimens: A) - Small Bowel, Jejunum, Biopsy, R/O Celiac B) - Stomach, Biopsy, R/O H Pylori C) - Colon, Cecum, Polyp D) - Colon, Transverse, Polyp E) - Colon, Sigmoid, Polyp PATHOLOGY [id number] FINAL DIAGNOSIS Result Comment: A. Small bow el, jejunum, biopsy: -- Small bowel mucosa with no significant histopathologic abnormalities. B. Stomach, biopsy: -- Focally active chronic gastritis, see comment. -- Immunohistochemical stain for H. Pylori negative for microorganisms. C. Cecum colon polyp, polypectomy: -- Tubular adenoma. D. Transverse colon polyp, polypectomy: -- Fragments of tubular adenoma. E. Sigmoid colon polyp, polypectomy: -- Tubular adenoma. at 1619 EST PATHOLOGY [id number] DIAGNOSIS COMMENT Result Comment: Part B has been reviewed by Dr. Azalea Brower, who concurs with the above findings. Laboratory Developed Test (LDT) Disclaimer: Performance characteristics of immunohistochemical, immunofluorescent and chromogenic in-situ hybridization tests have been determined by the performing laboratory within [facility]???s [facility]hames Ang [facility] Pathology and Laboratory Medicine Department ([facility], [facility], [facility], [facility], [facility], [facility], or [place] [facility]) in a manner consistent with CLIA requirements. One or more of these tests have not been cleared or approved by the FDA. [facility] is regulated under CLIA as qualified to perform high-complexity testing. These tests are used for clinical purposes. They should not be regarded as investigational or for research. Positive and negative controls stain appropriately. PATHOLOGY [id number] GROSS DESCRIPTION Result Comment: A. Small [place] el, Jejunum, Biopsy Received in formalin labeled small bowel jejunum biopsy are 3 irregular romero soft tissue fragments aggregating to 0.4 x 0.2 x 0.2 cm. The specimen is submitted entirely in A1. B. Stomach, Biopsy Received in formalin labeled stomach biopsy are 2 irregular romero soft tissue fragments aggregating to 0.3 x 0.3 x 0.2 cm. The specimen is submitted entirely in B1. C. Colon, Cecum, Polyp Received in formalin labeled cecum colon polyp are multiple irregular romero soft tissue fragments aggregating to 0.6 x 0.6 x 0.2 cm. The specimen is submitted entirely in C1. D. Colon, Transverse, Polyp Received in formalin labeled transverse colon polyp is a irregular romero soft tissue fragment measuring 1.2 x 0.4 x 0.3 cm. The specimen is submitted entirely in D1. E. Colon, Sigmoid, Polyp Received in formalin labeled sigmoid colon polyp is a irregular romero soft tissue fragment measuring 0.6 x 0.5 x 0.4 cm. The specimen is submitted entirely in E1. Gross examination performed at [facility], [address] [place] [address] CLIA#[id number] [facility] August 12, 2024 12:08 PM PATHOLOGY [facility] FINAL PERFORMING LAB Result Comment: Diagnostic i nterpretation performed at: [facility], [address] [place] [address] CLIA# [id number] Reconciliation Clerk: Edmund Andrew MD Performed By: #### [id number] # ### [facility] CLIA [id number] [address] [place] [address] [place] [facility] UPPER GI ENDOSCOPY Observed: 08/11/2024 12:10 PM Status: F Source: [facility] Gastrointestinal Endoscopy Patient Name: Rajendra Hoffman Procedure Date: 08/11/2024 12:10 PM Date of : 1960 Admit Type: Inpatient Room: [place] [address] Gender: Male Note Status: Finalized Attending MD: Madalyn Mcmillan MD, [id number] Procedure: Upper GI endoscopy Indications: Epigastric abdominal pain Providers: Madalyn Mcmillan MD Referring Physician: Madalyn Mcmillan MD (Referring MD) Medicines: Monitored Anesthesia Care Complications: No immediate complications. Procedure: Pre-Anesthesia Assessment: - Prior to the procedure, a History and Physical was performed, and patient medications and allergies were reviewed. The patient is competent. The risks and benefits of the procedure and the sedation options and risks were discussed with the patient. All questions were answered and informed consent was obtained. Patient identification and proposed procedure were verified by the physician, the nurse and the anesthesiologist in the pre-procedure area. Mental Status Examination: alert and oriented. Airway Examination: normal oropharyngeal airway and neck mobility. Respiratory Examination: clear to auscultation. CV Examination: normal. Prophylactic Antibiotics: The patient does not require prophylactic antibiotics. Prior Anticoagulants: The patient has taken no anticoagulant or antiplatelet agents. ASA Grade Assessment: III - A patient with severe systemic disease. After reviewing the risks and benefits, the patient was deemed in satisfactory condition to undergo the procedure. The anesthesia plan was to use monitored anesthesia care (MAC). Immediately prior to administration of medications, the patient was re-assessed for adequacy to receive sedatives. The heart rate, respiratory rate, oxygen saturations, blood pressure, adequacy of pulmonary ventilation, and response to care were monitored throughout the procedure. The physical status of the patient was re-assessed after the procedure. After obtaining informed consent, the endoscope was passed under direct vision. Throughout the procedure, the patient's blood pressure, pulse, and oxygen saturations were monitored continuously. The Endoscope was introduced through the mouth, and advanced to the proximal jejunum. I was present and participated during the entire procedure, including non-tan portions, and during the administration and monitoring of Moderate Sedation. The upper GI endoscopy was accomplished without difficulty. The patient tolerated the procedure well. Moderate Sedation: MAC anesthesia was administered by the anesthesia team. Exam was performed under monitored anesthesia care (MAC) Findings: The esophagus was normal. Evidence of an antrectomy was found in the gastric antrum. This was characterized by healthy appearing mucosa. Biopsies were taken with a cold forceps for Helicobacter pylori testing. The examined jejunum was normal. Biopsies for histology were taken with a cold forceps for evaluation of celiac disease. Estimated Blood Loss: Estimated blood loss was minimal. Impression: - Normal esophagus. - An antrectomy was found, characterized by healthy appearing mucosa. Biopsied. - Normal examined jejunum. Biopsied. Recommendation: - [facility]. - Await pathology results - Post-Procedure Resumption of Antiplatelet Medications: Restart Plavix (clopidogrel) tomorrow 75 mg PO. Refer to primary physician for further adjustment of therapy. Procedure Code(s): --- Professional --- 67122, Esophagogastroduodenoscopy, flexible, transoral; with biopsy, single or multiple --- Technical --- 20095, Esophagogastroduodenoscopy, flexible, transoral; with biopsy, single or multiple Diagnosis Code(s): --- Professional --- R10.13, Epigastric pain --- Technical --- R10.13, Epigastric pain CPT copyright 2020 [place] [employer]. All rights reserved. The codes documented in this report are preliminary and upon sample body builder review may be revised to meet current compliance requirements. Attending Participation: I personally performed the entire procedure. 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 Refer to note in patient chart for documentation of history and physical. Referring Physician: Madalyn Mcmillan MD (Referring MD) Medicines: Monitored Anesthesia Care Complications: No immediate complications. Requesting Provider: Tao Medeiros MD Procedure: Pre-Anesthesia Assessment: - Prior to the procedure, a History and Physical was performed, and patient medications and allergies were reviewed. The patient is competent. The risks and benefits of the procedure and the sedation options and risks were discussed with the patient. All questions were answered and informed consent was obtained. Patient identification and proposed procedure were verified by the physician, the nurse and the anesthesiologist in the pre-procedure area. Mental Status Examination: alert and oriented. Airway Examination: normal oropharyngeal airway and neck mobility. Respiratory Examination: clear to auscultation. CV Examination: normal. Prophylactic Antibiotics: The patient does not require prophylactic antibiotics. Prior Anticoagulants: The patient has taken no anticoagulant or antiplatelet agents. ASA Grade Assessment: III - A patient with severe systemic disease. After reviewing the risks and benefits, the patient was deemed in satisfactory condition to undergo the procedure. The anesthesia plan was to use monitored anesthesia care (MAC). Immediately prior to administration of medications, the patient was re-assessed for adequacy to receive sedatives. The heart rate, respiratory rate, oxygen saturations, blood pressure, adequacy of pulmonary ventilation, and response to care were monitored throughout the procedure. The physical status of the patient was re-assessed after the procedure. After I obtained informed consent, the scope was passed under direct vision. Throughout the procedure, the patient's blood pressure, pulse, and oxygen saturations were monitored continuously. The Colonoscope was introduced through the anus and advanced to the terminal ileum, with identification of the appendiceal orifice and IC valve. I was present and participated during the entire procedure, including non-tan portions, and during the administration and monitoring of Moderate Sedation. The colonoscopy was performed without difficulty. The patient tolerated the procedure well. The quality of the bowel preparation was good. The terminal ileum, ileocecal valve, appendiceal orifice, and rectum were photographed. Scope Withdrawal Time: 0 hours 20 minutes 41 seconds Moderate Sedation: MAC anesthesia was administered by the anesthesia team. Exam was performed under monitored anesthesia care (MAC) Findings: The perianal and digital rectal examinations were normal. The terminal ileum appeared normal. A 4 mm polyp was found in the cecum. The polyp was sessile. The polyp was removed with a cold snare. Resection and retrieval were complete. A 3 mm polyp was found in the transverse colon. The polyp was sessile. The polyp was removed with a cold snare. Resection and retrieval were complete. A 6 mm polyp was found in the sigmoid colon. The polyp was sessile. The polyp was removed with a hot snare. Resection and retrieval were complete. The exam was otherwise without abnormality on direct and retroflexion views. Prior tattoo sites were seen 30-35 cm from the anal verge. No polyps seen Estimated Blood Loss: Estimated blood loss was minimal. Impression: - The examined portion of the ileum was normal. - One 4 mm polyp in the cecum, removed with a cold snare. Resected and retrieved. - One 3 mm polyp in the transverse colon, removed with a cold snare. Resected and retrieved. - One 6 mm polyp in the sigmoid colon, removed with a hot snare. Resected and retrieved. - Tortutous sigmoid colon without evidence of focal strictures. The rest examination was otherwise normal on direct and retroflexion views. Recommendation: - Return patient to [facility] for [facility] care. - Repeat colonoscopy for surveillance based on pathology results. - Resume previous diet today. - Continue present medications. - Patient has a contact number available for emergencies. The signs and symptoms of potential delayed complications were discussed with the patient. Return to normal activities tomorrow. Written discharge instructions were provided to the patient. - Post-Procedure Resumption of Antiplatelet Medications: Restart Plavix (clopidogrel) tomorrow 75 mg PO daily. Refer to primary physician for further adjustment of therapy. Procedure Code(s): --- Professional --- 79504, Colonoscopy, flexible; with removal of tumor(s), polyp(s), or other lesion(s) by snare technique --- Technical --- 27896, Colonoscopy, flexible; with removal of tumor(s), polyp(s), or other lesion(s) by snare technique Diagnosis Code(s): --- Professional --- R10.84, Generalized abdominal pain R10.32, Left lower quadrant pain R10.33, Periumbilical pain --- Technical --- R10.84, Generalized abdominal pain R10.32, Left lower quadrant pain R10.33, Periumbilical pain CPT copyright 2020 [place] [employer]. All rights reserved. The codes documented in this report are preliminary and upon sample body builder review may be revised to meet current compliance requirements. Attending Participation: I personally performed the entire procedure. Scope In: 12:35:21 PM Scope Out: 1:10:05 PM MD Madalyn Garcia MD 08/11/2024 1:28:55 PM This report has been signed electronically by Madalyn Mcmillan MD Number of Addenda: 0 Note Initiated On: 08/11/2024 12:09 PM ANES PRE-OP Observed: 08/11/2024 11:23 AM Status: COMPLETED Source: [facility] HNO ID: [id number] Author: HOLGER JACOBSON MD Service: Anesthesiology Author Type: Anesthesiologist Type: Anesthesia Preprocedure Evaluation Filed: 08/11/2024 11:23 Note Text: ANESTHESIOLOGY DAY OF SURGERY NOTE Colonoscopy Mesenteric ischemia - Celiac and SMA stents, plavix, asa, statin Cervical spine fusion Intrathecal pump? Mac 4, grade 1 No echo : 1960 Procedure Information Date/Time: 08/11/24 1100 Scheduled providers: Madalyn Mcmillan MD Procedures: COLONOSCOPY DIAGNOSTIC EGD DIAGNOSTIC Location: [facility] Estimated body mass index is 15.78 kg/m? as calculated from the following: Height as of this encounter: 177.8 cm (5' 10). Weight as of this encounter: 49.9 kg (110 lb 0.2 oz). Most recent hematocrit and potassium results: Hematocrit 37.7 08/11/2024 Potassium 3.7 08/11/2024 Relevant Problems CARDIO (+) Atherosclerosis of superior mesenteric artery (HCC) (+) Chronic mesenteric ischemia (HCC) (+) Median arcuate ligament syndrome (HCC) (+) Mesenteric ischemia (HCC) GI (+) Gastric ulcer (+) Gastroesophageal reflux disease without esophagitis NEURO-PSYCH (+) History of cholangitis I - PHYSICAL EVALUATION AIRWAY Patient intubated: No. Tracheostomy tube not present Mallampati: II. TM distance: >3 FB. Neck ROM: full ROM without neurological symptoms. Mouth opening: adequate. Short neck: no. Thick neck: no DENTAL Dental findings: teeth intact. II - ANESTHESIA PLAN ASA Score: 4 Anesthetic Plan: MAC NPO Status: adequate Beta Judy Monitoring Plan Monitoring plan: standard ASA. Post Procedure Analgesic Plan Postoperative analgesic plan: multimodal analgesia. Informed Consent Anesthetic risks, benefits, alternatives, personnel and consent discussed: yes. Patient / Responsible Green Party agrees to proceed: yes Patient / Surrogate agrees to blood products: blood products not planned Potential Anesthesia issues that may suggest increased risk of complications or contraindication to planned procedure: none. Vitals Value Taken Time BP 132/79 08/11/24 1108 Pulse 66 08/11/24 1108 Resp 12 08/11/24 1108 Temp 36.7 ?C (98 ?F) 08/11/24 1108 SpO2 100 % 08/11/24 1108 Facility-Administered Medications as of 08/11/2024 Medication Dose Route Frequency [Transfer Hold] rosuvastatin 10 mg tab(s) (CRESTOR) 10 mg ORAL AT BEDTIME [Transfer Hold] pantoprazole DR 20 mg tab(s) (PROTONIX) 20 mg ORAL DAILY [Transfer Hold] lactated ringers iv infusion 100 mL/hr INTRAVENOUS CONTINUOUS [Transfer Hold] acetaminophen 975 mg tab(s) (TYLENOL) 975 mg ORAL QID [Transfer Hold] enoxaparin 40 mg injection (LOVENOX) 40 mg SUBCUTANEOUS DAILY [Transfer Hold] NaCl 0.9% iv flush bag 20 mL INTRAVENOUS PRN [Transfer Hold] ondansetron 4 mg tab(s) (ZOFRAN) 4 mg ORAL q 6 H PRN Or [Transfer Hold] ondansetron (PF) 4 mg injection (ZOFRAN) 4 mg INTRAVENOUS q 6 H PRN [Transfer Hold] iv contrast (radiology procedure) INTRAVENOUS DIRECTED PRN And [] enteric contrast (radiology procedure) ORAL DIRECTED PRN [Transfer Hold] HYDROmorphone 0.5 mg injection (DILAUDID) 0.5 mg INTRAVENOUS q 4 H PRN [Transfer Hold] oxyCODONE IR 5-10 mg tab(s) (ROXICODONE) 5-10 mg ORAL q 6 H PRN [Transfer Hold] prochlorperazine 10 mg tab(s) (COMPAZINE) 10 mg ORAL q 6 H PRN [COMPLETED] peg 3350-Electrolytes 4,000 mL oral liquid (GOLYTELY) 4,000 mL ORAL ONCE Outpatient Medications as of 08/11/2024 Medication Sig hyoscyamine sublingual (LEVSIN/SL) 0.125 mg Dissolve 1 tablet under the tongue every 4 hours as needed. hyoscyamine SR (LEVBID) 0.375 mg 12 hr tablet Take 1 tablet by mouth two times a day. hyoscyamine (LEVSIN) 0.125 mg tablet Take 1 tablet by mouth every 4 hours as needed for diarrhea (and abdominal pain). ondansetron orally disintegrating (ZOFRAN ODT) 8 mg disintegrating tablet pantoprazole DR (PROTONIX) 20 mg tablet Take 20 mg by mouth once daily. clopidogrel (PLAVIX) 75 mg tablet Take 75 mg by mouth once daily. rosuvastatin (CRESTOR) 10 mg tablet Take 1 tablet by mouth daily at bedtime. aspirin 81 mg chewable tablet Take 1 tablet by mouth once daily. acetaminophen 325 mg-caffeine 40 mg-butalbital 50 mg (FIORICET) per tablet Take 1 tablet by mouth every 4 hours as needed for headache. I have interviewed and examined the patient. I have reviewed the medical record and/or the pre-anesthesia evaluation, pertinent labs, and test results. This contains updated information obtained within 48 hours of Surgery/Procedure. SIGNATURE: Holger Jacobson MD PATIENT NAME: Rajendra Hoffman DATE: August 11, 2024 TIME: 11:23 AM CSN: [id number] PROGRESS Observed: 08/11/2024 9:33 AM Status: COMPLETED [id number] Author: TAO MEDEIROS MD Service: General Surgery Author Type: Resident Type: Progress Notes Filed: 08/11/2024 16:50 Note Text: Attestation signed by Tao Medeiros MD at 08/11/2024 4:50 PM I personally saw and examined the patient. I reviewed the resident's note. I agree with the resident's assessment and plan except as noted below. Plan of care discussed with: Provider, RN, Patient. Elective General Surgery (Blue Surgery) Progress Note SERVICE DATE: August 11, 2024 Elective General Surgery (Blue Surgery) Service Pager: For questions or concerns Mon-Fri 6a-5p please page [phone]. After 5pm and on Weekends and Holidays, please page [phone] if in ICU or [phone] if on RNF.Subjective SUBJECTIVE: NAEON. Pt sleeping comfortably this morning. Completed bowel prep overnight, now NPO. Denies any current pain, n/v. To have EGD/colonoscopy with GI today. Tolerating diet DIET NPO Nausea No Emesis No Flatus Yes Bowel movement Yes Pain Controlled Yes Ambulating Yes Objective OBJECTIVE: Vitals: Temp (24hrs), Av.8 ?C (98.2 ?F), Min:36.7 ?C (98 ?F), Max:37 ?C (98.6 ?F) BP 132/71 Pulse 63 Temp 37 ?C (98.6 ?F) Resp 20 Ht 177.8 cm (5' 10) Wt 49.9 kg (110 lb 0.2 oz) SpO2 100% BMI 15.78 kg/m? O2 Therapy: Room Air IANDO: MEDICATIONS Current Facility-Administered Medications Medication Dose Route Frequency rosuvastatin 10 mg tab(s) (CRESTOR) 10 mg ORAL AT BEDTIME pantoprazole DR 20 mg tab(s) (PROTONIX) 20 mg ORAL DAILY lactated ringers iv infusion 100 mL/hr INTRAVENOUS CONTINUOUS acetaminophen 975 mg tab(s) (TYLENOL) 975 mg ORAL QID enoxaparin 40 mg injection (LOVENOX) 40 mg SUBCUTANEOUS DAILY NaCl 0.9% iv flush bag 20 mL INTRAVENOUS PRN ondansetron 4 mg tab(s) (ZOFRAN) 4 mg ORAL q 6 H PRN Or ondansetron (PF) 4 mg injection (ZOFRAN) 4 mg INTRAVENOUS q 6 H PRN iv contrast (radiology procedure) INTRAVENOUS DIRECTED PRN HYDROmorphone 0.5 mg injection (DILAUDID) 0.5 mg INTRAVENOUS q 4 H PRN oxyCODONE IR 5-10 mg tab(s) (ROXICODONE) 5-10 mg ORAL q 6 H PRN prochlorperazine 10 mg tab(s) (COMPAZINE) 10 mg ORAL q 6 H PRN Labs: Recent Labs 08/11/24 0803 08/10/24 0940 NA -- 137 K -- 3.7 CHLOR -- 100 CO2 -- 22 BUN -- 14 CREAT -- 0.83 GLUC -- 83 ANION -- 15 CA -- 9.2 WBC 5.05 6.46 HB 11.8* 12.3* HCT 37.7* 39.5 PLT 148* 191 Physical Exam: GENERAL: resting comfortably, in no acute distress HEENT: normocephalic, atraumatic, EOMI NECK: trachea midline, no JVD LUNGS: Unlabored breathing, equal chest rise bilaterally CARDIAC: Regular rate, warm and well perfused extremities ABDOMEN: Soft, non-tender, non-distended, no rebound or guarding. Healed midline surgical scar present EXTREMITIES: GALAN, No deformities, No edema SKIN: Skin color, texture, turgor normal, No rashes or lesions NEURO: AANDOx3, CN II-XII grossly intact PSYCH: normal mood and affect ASSESSMENT AND PLAN: Assessment Active Hospital Problems Diagnosis Date Noted Colonic stricture (HCC) 08/10/2024 Assessment: 64 year old male with PMH of GERD, cholecystectomy, mesenteric stenosis s/p celiac and SMA stenting (on ASA/Plavix), diverticulosis, partial gastrectomy w/ reconstruction of chester-en-y and vagotomy 2/2 nonhealing gastric ulcer (2022) c/b hemoperitoneum requiring ex lap and washout who presents as a direct admit for ongoing abd pain 2/2 known colonic stricture. Hospital Course/Operations/Procedures: * No surgery found * Plan: Colonic Stricture - CTAP 08/10 showing no acute intra-abdominal or pelvic process - GI consulted, appreciate recs - Scheduled for EGD/Colonoscopy today, further treatment plans pending results of procedure - NPO for procedure - Continue with home PPI - continue with current pain and nausea medication - LVX for DVT ppx, holding plavix - continue to monitor and document bowel function Discussed with attending: Dr. Medeiros SIGNATURE: Kerry Mix DO PATIENT NAME: Rajendra Hoffman DATE: August 11, 2024 TIME: 9:33 AM Pager: see below Elective General Surgery (Blue Surgery) Service Pager: For questions or concerns Mon-Fri 6a-5p please page [phone]. After 5pm and on Weekends and Holidays, please page [phone] if in ICU or [phone] if on RNF. BAS METAB 2000 PNL SERPL Collected: 9:28 AM Status: F Source: [facility] Order Comment: Specimen Type : BLOOD SPECIMEN Ordering Facility: [facility] Address: [address] [place] [address] TYPE CODE TESTS RESULT OUT OF RANGE REFERENCE UNITS LAB 2345-7(LOINC) Glucose SerPl-mCnc 70 Low 74-99 mg/dL Result Comment: The [place] [employer] (ADA) provides guidance for cutoff values for fasting glucose and random glucose. The ADA defines fasting as no caloric intake for at least 8 hours. Fasting plasma glucose results between 100 to 125 [...] Standards of Medical Care in Diabetes 2016, [place] [employer]. Diabetes Care. 2016.39(Suppl 1). LAB 3094-0(LOINC) BUN SerPl-mCnc 6 Low 9-24 mg/ dL LAB 2160-0(LOINC) Creat SerPl-mCnc 0.83 0.73-1.22 mg/dL LAB 2951-2(LOINC) Sodium SerPl-sCnc 138 136-144 mmol/L LAB 2823-3(LOINC) Potassium SerPl-sCnc 3.7 3.7-5.1 mmol/L LAB 2075-0(LOINC) Chloride SerPl-sCnc 98 98-107 mmol/L LAB 2028-9(LOINC) CO2 SerPl-sCnc 23 22-30 mmo l/L LAB 1863-0(LOINC) Anion Gap4 SerPl-sCnc 17 High 8-15 mmol/L LAB 25142-8(LOINC) Calcium SerPl-mCnc 9.4 8.5-10.2 mg/dL LAB 82387-7(LOINC) Creatinine + eGFR Pnl SerPlBld 98 >=60 mL/min/1. 73m??? Result Comment: Estimated Gl omerular Filtration Rate (eGFR) is calculated using the 2020 CKD-EPI creatinine equation. This equation utilizes serum creatinine, sex, and age as parameters. The creatinine assay has traceable calibration to isotope dilution-mass spectrometry. Refer to KDIGO guidelines for clinical interpretation. In patients with unstable renal function, e.g. those with acute kidney injury, the eGFR may not accurately reflect actual GFR. Performed By: #### [id number] # ### [facility] CLIA [id number] [address] [place] [address] [place] [facility] CBC PNL BLD AUTO Collected: 08/11/2024 8:03 AM Statu s: F Source: [facility] Order Comment: Specimen Type : BLOOD SPECIMEN Ordering Facility: [facility] Address: [address] [place] [address] TYPE CODE TESTS RESULT OUT OF RANGE REFERENCE UNITS LAB 6690-2(LOINC) WBC # Bld Auto 5.05 3.70-11.00 k/uL LAB 789-8(LOINC) RBC # Bld Auto 4.82 4.20-6.00 m/ uL LAB 718-7(LOINC) Hgb Bld-mCnc 11.8 Low 13.0-17.0 g/dL LAB 4544-3(LOINC) Hct VFr Bld Auto 37.7 Low 39.0-51.0 % LAB 787-2(LOINC) MCV RBC Auto 78.2 Low 80.0-100.0 fL LAB 785-6(LOINC) MCH RBC Qn Auto 24.5 Low 26.0-34.0 pg LAB 786-4(LOINC) MCHC RBC Auto-mCnc 31.3 30.5-36.0 g/dL LAB 13873-5(LOINC) RDW RBC-Rto 19.9 High 11.5-15.0 % LAB 777-3(LOINC) Platelet # Bld Auto 148 Low 150-400 k/uL LAB 82914-4([facility]) PMV Bld Auto Result Comment: Unable to Re port. LAB 771-6([facility]) nRBC # Bld Auto <0.01 <0.01 k/uL Performed By: #### [id number] # ### [facility] CLIA [id number] [address] ABD/PEL W IVCON Observed: 08/10/2024 2:17 PM Status: F Source: [facility] * * *Final Report* * * DATE OF EXAM: Aug 10 2024 2:17PM [facility] 0530 - CT ABD/PEL W IVCON / PROCEDURE REASON: colonic stricture / mesenteric ischemia * * * * Physician Interpretation * * * * EXAMINATION: CT ABDOMEN AND PELVIS WITH IV CONTRAST CLINICAL HISTORY: Rule out colonic stricture TECHNIQUE: CT of the abdomen and pelvis was performed using standard technique, scanning from just above the dome of the diaphragm to the symphysis pubis. MQ: CTAP_3 Contrast: IV: 100 ml of Omnipaque 350 Oral: ml of Breeza CT Radiation dose: Integrated Dose-length product (DLP) for this visit = 127 mGy*cm. CT Dose Reduction Employed: Automated exposure control(AEC) and iterative recon COMPARISON: 05/18/24, 02/10/23. RESULT: Liver: No mass. Biliary: No bile duct dilation. Gallbladder is absent. Spleen: No mass. No splenomegaly. Pancreas: No mass or duct dilation. Adrenals: No mass. Kidneys: No mass, calculus or hydronephrosis. GI tract: No dilation or wall thickening. Diverticulosis. Normal visualized portions of the appendix. Surgical clips gastroesophageal region. Distal gastrectomy with gastrojejunal anastomosis. Lymph nodes: No abdominal or pelvic lymphadenopathy. Mesentery/Peritoneum: No ascites or mass. Retroperitoneum: No mass. Vasculature: - Abdominal aorta and iliac arteries: Atherosclerotic calcifications without aneurysm. - Celiac and SMA: Patent. Stents within the origins of both, not optimally assessed, grossly patent although there may be a component of stenosis within the SMA stent; previously study also showed possible narrowing at the junction of the 2 SMA stents - Portal venous system (SMV, splenic vein, portal vein and branches): Patent. - Hepatic veins: Patent. Pelvis: No mass, ascites or fluid collection. Bones/Soft Tissues: No significant finding. Lower thorax: Emphysema Localizer images: No additional findings. IMPRESSION: No acute intra-abdominal or pelvic process Celiac and SMA stents as described, with possible component of stenosis within the SMA stent Citrus Fruit Packer: [facility] Transcribe Date/Time: Aug 11 2024 8:10A Dictated by : STEVE ARTIS MD This examination was interpreted and the report reviewed and electronically signed by: STEVE ARTIS MD on Aug 11 2024 8:37AM EST [id number] ALLIED HEALTH Observed: 08/10/2024 2:16 PM Status: COMPLETED [id number] Author: MICHELLE MARROQUIN RT(R) Service: Radiology Author Type: Bell Attendant Type: Allied Health Filed: 08/10/2024 14:16 Note Text: Radiology Service Progress Note DATE OF SERVICE: August 10, 2024 TIME: 2:16 PM PATIENT IDENTITY VERIFICATION COMPLETED USING TWO (2) STANDARD IDENTIFIERS: Name and Date of confirmed by patient verbally and Name and Date of confirmed by identification band. FALL SCREENING: Has the patient had 2 falls in the last year or 1 fall with injury or currently using an Ambulatory Assistive Device (Walker, Cane, Wheelchair, Crutches, etc.)? Inpatient: Screened on floor PATIENT GENDER DATA: Assigned male at PATIENT RELEVANT IMPLANT DATA REVIEWED: Not Applicable PATIENT PRESENTS WITH AN IMPLANTABLE OR ATTACHED SECURITY ALARM TECHNICIAN: No ALLERGIES: Reviewed and unchanged CONTRAST ALLERGY: NO. EXAM: CT -CONTRAST INDUCED NEPHROPATHY RISK FACTORS: Patient age > 60 years CREATININE: Creatinine Date Value Ref Range Status 08/10/2024 0.83 0.73 - 1.22 mg/dL Final 08/02/2024 0.98 0.73 - 1.22 mg/dL Final 05/18/2024 1.52 (H) 0.73 - 1.22 mg/dL Final Estimated Glomerular Filtration Rate Date Value Ref Range Status 08/10/2024 98 >=60 mL/min/1.73m? Final Comment: Estimated Glomerular Filtration Rate (eGFR) is calculated using the 2020 CKD-EPI creatinine equation. This equation utilizes serum creatinine, sex, and age as parameters. The creatinine assay has traceable calibration to isotope dilution-mass spectrometry. Refer to KDIGO guidelines for clinical interpretation. In patients with unstable renal function, e.g. those with acute kidney injury, the eGFR may not accurately reflect actual GFR. eGFR- Date Value Ref Range Status 08/26/2018 >60 Final P.O.C.T. RESULTS: POC done: Yes, See Lab Tab August 10, 2024 TREATMENT: N/A and No Hydration needed. PERIPHERAL IV DATA: Inpatient - refer to LDA documentation RADIOLOGY DEPARTMENT: CT; Exam(s) Completed: Abdomen/Pelvis SIGNATURE: RT Sree(R) PATIENT NAME: Rajendra Hoffman DATE: August 10, 2024 TIME: 2:16 PM CASE MGT INALONZO FONSECA Observed: 08/10/2024 11:47 AM Status: COMPLETED Source: [facility] HNO ID: [id number] Author: HOWARD LOZANO RN Service: Care Management Author Type: Registered Nurse Type: Care Mgt Initial Assessment Filed: 08/10/2024 13:59 Note Text: CARE MANAGEMENT: ASSESSMENT AND DISCHARGE PLAN SERVICE DATE: August 10, 2024 SERVICE TIME: 11:47 AM PCP: Richard Rmasey MD Primary Contact: Extended Emergency Contact Information Primary Emergency Contact: Estrella Hoffman Address: [address] [place] Relation: Spouse Admission Status: Inpatient Insurance [facility] Discharge Planning requested by: Per Department Practice Potential Transition Plans Home Advance Directives Current Advance Directive: None Pin Chaser Attempted to Assist with AD Completion: Yes Action: Education Provided Current Living Arrangements and Support Lives with: Spouse/significant other Type of Residence: Private Residence (House) Does the patient have to climb stairs at home?: Yes Support: Spouse/significant other How do you manage to accomplish the following: Independent: Ambulation, Bathe/Shower, Dress, Meals/Meal Prep, Going to the bathroom, Medication Management, Transportation to appointments/community Current Services/Equipment Current Post-Acute Service(s): None Discharge Planning Patient Goal(s): Be able to go home, General wellness, Less pain [place] of Choice Explained: [place] of Choice Given: No Reason Not Given: No placements necessary Are you interested in bedside delivery of your medications? No Discharge Planning Participant(s): Patient Patient/Family Comments: Caregiver Assessment: Caregiver is ready, willing and able to meet the patient's needs as recommended by the inter-professional team: No Caregiver needed Transport at Discharge: Transportation Arrangements: Car Needs Prior to Discharge: Needs Prior to Discharge: To Be Determined Post-Acute Discharge Plan: Chart reviewed and met with patient in room to complete initial assessment. 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 DC plan is home, patient will have transport. No transitional/discharge needs identified at this time. CM will continue to follow. SIGNATURE: Howard Lozano RN PATIENT NAME: Rajendra Hoffman DATE: August 10, 2024 TIME: 1:58 PM CONSULT Observed: 08/10/2024 10:53 AM Status: COMPLETED [facility] [id number] Author: MADALYN MCMILLAN MD Service: Gastroenterology Author Type: ? Type: Consults Filed: 08/10/2024 18:16 Note Text: Attestation signed by Madalyn Mcmillan MD at 08/10/2024 6:16 PM TEACHING PHYSICIAN NOTE OF PERSONAL INVOLVEMENT IN CARE: I have personally seen and examined the patient and performed the medical decision-making components. I have reviewed the medical student documentation and verified the findings in the note as written. Any additions or changes are noted in bold/italics. Rajendra Hoffman is a 64 year old male with a PMHx of Mesenteric artery stenosis s/p stent placemement with most recent CTA showing intraluminal stenosis/possible high grade stensosis at the junction of the stents, recent colonoscopy showing benign appearing sigmoid stricture with biopsies negative for worrisome finding. Patient continues to endorse diffuse abdominal pain involving in epigastric area and bilateral lower quadrant. CTE has been ordered and in process. Recommendations: - Unclear etiology of patient's symptoms at this point - Follow up with CTE - Will arrange for an EGD/Colonoscopy for further evaluation - Clear liquid diet today - Start bowel prep this evening. Drink 15 ounce at a time until 2:00 am. No more prep after 2:00 am. - NPO @ midnight except for bowel prep Will continue to follow Signature: Madalyn Mcmillan Date: 08/10/2024 Time: 3:54 PM IMPRESSION AND PLAN Mr. Hoffman is a 64 year old male with a PMHx of chronic abdominal pain, Mesenteric artery stenosis s/p stent placement, moderate colon stenosis, diverticulosis, GERD, hiatal hernia, and refractory peptic ulcer disease s/p distal gastrectomy with vagotomy whom GI was consulted for abdominal pain. The patient has episodic generalized abdominal pain, primarily localized to the lower quadrants that is unrelated to activity or eating. The pain is associated with the urge to defecate and is relieved when done. He has pencil-thin stools with no hematochezia or melena. His last colonoscopy was in April 2024 and showed a benign appearing intrinsic moderate stenosis of the sigmoid colon, diverticula, and a polyp. His last CTA in April 2024 showed high grade stenosis at the junction of the 2 stents in the SMA. He has not had an EGD since 2018. CT enterography results pending. EGD and Colonoscopy scheduled for further evaluation. 1) Colonic Stricture - May 16 Colonoscopy revealed benign appearing intrinsic moderate stenosis of the sigmoid colon, diverticula, and a polyp. - Colonoscopy and EGD scheduled - Clear liquid diet and bowel prep start tomorrow - NPO after midnight CC: Abdominal pain HPI: This is a 64 year old male who presents with abdominal pain. He has a long standing history of abdominal pain which in the past has been attributed to mesenteric ischemia which has since been treated with a celiac and SMA stents. He reports that his abdominal pain never fully resolved and has come in sporadic episodes, unrelated to activity or food consumption. He describes the pain as sharp and most prominent in his left and right lower quadrants, sometimes radiating to his testicles. Since last , he reports they have gotten more severe and are associated with the urge to defecate. When he defecates, he reports pencil-thin stools with mucous but no blood. He often has the urge to defecate many times throughout the day which interferes with his work. Today, hepresented to the [place] ED and was transferred here for the abdominal pain. Pertinent Review of Systems: GENERAL: No headache. No dizziness. NECK: Negative for lumps, goiter, or pain. RESPIRATORY: Negative for cough or wheezing. CARDIOVASCULAR: No cardiac chest pain, leg swelling or palpitations. GI: See HPI All other reviewed and negative other than HPI. PAST MEDICAL HISTORY: PAST MEDICAL HISTORY Diagnosis Date Arthritis GERD (gastroesophageal reflux disease) Hiatal hernia Hx of fusion of cervical spine Mesenteric artery stenosis (HCC) PAST SURGICAL HISTORY: PAST SURGICAL HISTORY Procedure Laterality Date ADDTL NECK SPINE FUSION 2010 CHOLECYSTECTOMY 2007 EGD 12/2022 ESOPHAGOGASTRODUODENOSCOPY TRANSORAL DIAGNOSTIC 09/2014 EGD PAST SURGICAL HISTORY OF 2014 PPH-pierre in rectum/colon PAST SURGICAL HISTORY OF 2018 stent placed in the SMA PAST SURGICAL HISTORY OF 2017 Balloon angioplasty of the celiac artery PAST SURGICAL HISTORY OF 01/2017 Celiac and superior mesenteric artery angioplasty PAST SURGICAL HISTORY OF 08/2016 celiac and SMA angiogram with placement of stent in the celiac and in the SMA. SPINAL CORD STIM PERCT SCS ELCT 2021 stimulator in and removed FAMILY HISTORY: FAMILY HISTORY Problem Relation Age of Onset Cancer Mother lung Cancer Maternal Grandmother lung Colon Cancer Father Cancer Maternal Grandfather throat Cancer Maternal Aunt bone SOCIAL HISTORY: Social History Tobacco Use Smoking status: Every Day Types: Cigarettes Smokeless tobacco: Never Tobacco comments: 10-15 per day Vaping Use Vaping status: Never Used Substance Use Topics Alcohol use: No Comment: very very seldom Drug use: No Comment: used to smoke alcira, 3 to 4 days per week MEDICATIONS: Prior to Admission Medications: hyoscyamine sublingual (LEVSIN/SL) 0.125 mgDissolve 1 tablet under the tongue every 4 hours as needed.Disp: 60 tabletRfl: 1 hyoscyamine SR (LEVBID) 0.375 mg 12 hr tabletTake 1 tablet by mouth two times a day.Disp: 60 tabletRfl: 4 hyoscyamine (LEVSIN) 0.125 mg tabletTake 1 tablet by mouth every 4 hours as needed for diarrhea (and abdominal pain).Disp: 90 tabletRfl: 1 ondansetron orally disintegrating (ZOFRAN ODT) 8 mg disintegrating tabletDisp: Rfl: pantoprazole DR (PROTONIX) 20 mg tabletTake 20 mg by mouth once daily.Disp: Rfl: clopidogrel (PLAVIX) 75 mg tabletTake 75 mg by mouth once daily.Disp: Rfl: rosuvastatin (CRESTOR) 10 mg tabletTake 1 tablet by mouth daily at bedtime.Disp: 30 tabletRfl: 2 aspirin 81 mg chewable tabletTake 1 tablet by mouth once daily.Disp: Rfl: 0 acetaminophen 325 mg-caffeine 40 mg-butalbital 50 mg (FIORICET) per tabletTake 1 tablet by mouth every 4 hours as needed for headache.Disp: Rfl: Current Facility-Administered Medications Medication Dose Route Frequency rosuvastatin 10 mg tab(s) (CRESTOR) 10 mg ORAL AT BEDTIME pantoprazole DR 20 mg tab(s) (PROTONIX) 20 mg ORAL DAILY lactated ringers iv infusion 100 mL/hr INTRAVENOUS CONTINUOUS acetaminophen 975 mg tab(s) (TYLENOL) 975 mg ORAL QID morphine 2 mg injection 2 mg INTRAVENOUS q 6 H PRN enoxaparin 40 mg injection (LOVENOX) 40 mg SUBCUTANEOUS DAILY NaCl 0.9% iv flush bag 20 mL INTRAVENOUS PRN ondansetron 4 mg tab(s) (ZOFRAN) 4 mg ORAL q 6 H PRN Or ondansetron (PF) 4 mg injection (ZOFRAN) 4 mg INTRAVENOUS q 6 H PRN oxyCODONE IR 5 mg tab(s) (ROXICODONE) 5 mg ORAL q 4 H PRN iv contrast (radiology procedure) INTRAVENOUS DIRECTED PRN And enteric contrast (radiology procedure) ORAL DIRECTED PRN ALLERGIES: ALLERGIES Allergen Reactions Omeprazole Other: See Comments Severe Headaches Senna Unknown Bottom lip swelled. Stopped swelling when senna dc OBJECTIVE: PHYSICAL EXAM: VITALS: BP 138/86 Pulse 70 Temp 36.9 ?C (98.4 ?F) (Oral) Resp 16 Ht 177.8 cm (5' 10) Wt 52.2 kg (115 lb) SpO2 96% BMI 16.50 kg/m? General appearance: AANDOx3 Lungs: lungs clear to auscultation, no wheezing Heart: S1+S2 audible Abdomen: Soft, generalized tenderness, most prominent in the B/L lower quadrants. Not distended. DATA: CBC, Coags, BMP, Mg, Phos Recent Labs 08/10/24 0940 WBC 6.46 HB 12.3* HCT 39.5 PLT 191 NA 137 K 3.7 CHLOR 100 CO2 22 BUN 14 CREAT 0.83 GLUC 83 CA 9.2 SIGNATURE: Everardo Elan PATIENT NAME: Rajendra Hoffman BAS METAB 1999 PNL SERPL Collected: 9:40 AM Status: F Source: [facility] Order Comment: Specimen Type : BLOOD SPECIMEN Ordering Facility: [facility] Address: [address] [place] [address] TYPE CODE TESTS RESULT OUT OF RANGE REFERENCE UNITS LAB 2345-7(LOINC) Glucose [facility] 83 74-99 mg/dL Result Comment: The [place] [employer] Association (ADA) provides guidance for cutoff values for fasting glucose and random glucose. The ADA defines fasting as no caloric intake for at least 8 hours. Fasting plasma glucose results between 100 to 125 [...] Standards of Medical Care in Diabetes 2016, [place] [employer] Association. Diabetes Care. 2016.39(Suppl 1). LAB 3094-0(LOINC) BUN SerPl-mCnc 14 9-24 mg/ dL LAB 2160-0(LOINC) Creat SerPl-mCnc 0.83 0.73-1.22 mg/dL LAB 2951-2(LOINC) Sodium SerPl-sCnc 137 136-144 mmol/L LAB 2823-3(LOINC) Potassium SerPl-sCnc 3.7 3.7-5.1 mmol/L LAB 2075-0(LOINC) Chloride SerPl-sCnc 100 98-107 mmol/L LAB 2028-9(LOINC) CO2 SerPl-sCnc 22 22-30 mmo l/L LAB 1863-0(LOINC) Anion Gap4 SerPl-sCnc 15 8-15 mmol/L LAB 08350-7(LOINC) Calcium SerPl-mCnc 9.2 8.5-10.2 mg/dL LAB 77648-5(LOINC) Creatinine + eGFR Pnl SerPlBld 98 >=60 mL/min/1. 73m??? Result Comment: Estimated Gl omerular Filtration Rate (eGFR) is calculated using the 2020 CKD-EPI creatinine equation. This equation utilizes serum creatinine, sex, and age as parameters. The creatinine assay has traceable calibration to isotope dilution-mass spectrometry. Refer to KDIGO guidelines for clinical interpretation. In patients with unstable renal function, e.g. those with acute kidney injury, the eGFR may not accurately reflect actual GFR. Performed By: #### [id number] # ### [facility] CLIA [id number] [address] [place] [address] [place] [facility] CBC PNL BLD AUTO Collected: 08/10/2024 9:40 AM Statu s: F Source: [facility] Order Comment: Specimen Type : BLOOD SPECIMEN Ordering Facility: [facility] Address: [address] [place] [address] TYPE CODE TESTS RESULT OUT OF RANGE REFERENCE UNITS LAB 6690-2(LOINC) WBC # Bld Auto 6.46 3.70-11.00 k/uL LAB 789-8(LOINC) RBC # Bld Auto 5.13 4.20-6.00 m/ uL LAB 718-7(LOINC) Hgb Bld-mCnc 12.3 Low 13.0-17.0 g/dL LAB 4544-3(LOINC) Hct VFr Bld Auto 39.5 39.0-51.0 % LAB 787-2(LOINC) MCV RBC Auto 77.0 Low 80.0-100.0 fL LAB 785-6(LOINC) MCH RBC Qn Auto 24.0 Low 26.0-34.0 pg LAB 786-4(LOINC) MCHC RBC Auto-mCnc 31.1 30.5-36.0 g/dL LAB 48590-1(LOINC) RDW RBC-Rto 19.7 High 11.5-15.0 % LAB 777-3(LOINC) Platelet # Bld Auto 191 150-400 k/uL LAB 36596-8(LOINC) PMV Bld Auto 12.1 9.0-12.7 fL LAB 771-6(LOINC) nRBC # Bld Auto <0.01 <0.01 k/uL Performed By: #### [id number] # ### [facility] CLIA [id number] [address] HISTORY PHYSICAL Observed: 08/10/2024 8:13 AM Status: COMPLETED Source: [facility] HNO ID: [id number] Author: TAO MEDEIROS MD Service: General Surgery Author Type: Resident Type: H&P Filed: 08/10/2024 09:15 Note Text: Attestation signed by Tao Medeiros MD at 08/10/2024 9:15 AM I personally saw and examined the patient. I reviewed the resident's note. I agree with the resident's assessment and plan except as noted below. Plan of care discussed with: Provider, RN, Patient. [facility] ELECTIVE SURGERY SERVICE HANDP SERVICE DATE: 08/10/2024 SERVICE TIME: 8:13 AM Subjective Mr. Hoffman is a 64 year old male with PMHx GERD, hiatal hernia, mesenteric artery stenosis, arthritis, who presents today as direct admit for ongoing abdominal pain. Patient reports having surgery scheduled for later this month, called Dr. Medeiros's office due to ongoing abdominal pain, was told to come into hospital for evaluation and possible EGD, CTE. Patient has history of distal gastrectomy on 01/20/2023 (Dr. Lewis) complicated by takeback for bleeding (Dr. Medeiros). He was recently scoped by GI in May 2024 and noted to have sigmoid colon stricture. Patient was seen in office by Dr. Medeiros on and CT enterography was ordered, which has not yet been completed. Today, patient reports abdominal pain starting . Endorses ongoing nausea without vomiting. Denies fevers, chills. Endorses constipation the past couple of days, still having daily BM, but harder and larger than normal. Has taken stool softeners the past couple days without relief. Also endorses urinary urgency and frequency, small volume voids. Denies dysuria. 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 SPINAL CORD STIM PERCT SCS ELCT 2021 stimulator in and removed FAMILY HISTORY Problem Relation Age of Onset Cancer Mother lung Cancer Maternal Grandmother lung Colon Cancer Father Cancer Maternal Grandfather throat Cancer Maternal Aunt bone Social History Tobacco Use Smoking status: Every Day Types: Cigarettes Smokeless tobacco: Never Tobacco comments: 10-15 per day Vaping Use Vaping status: Never Used Substance Use Topics Alcohol use: No Comment: very very seldom Drug use: No Comment: used to smoke LED Light Senseanna, 3 to 4 days per week hyoscyamine sublingual (LEVSIN/SL) 0.125 mg, Dissolve 1 tablet under the tongue every 4 hours as needed., Disp: 60 tablet, Rfl: 1 hyoscyamine SR (LEVBID) 0.375 mg 12 hr tablet, Take 1 tablet by mouth two times a day., Disp: 60 tablet, Rfl: 4 hyoscyamine (LEVSIN) 0.125 mg tablet, Take 1 tablet by mouth every 4 hours as needed for diarrhea (and abdominal pain). (Patient not taking: Reported on 05/18/2024), Disp: 90 tablet, Rfl: 1 acetaminophen 325 mg-caffeine 40 mg-butalbital 50 mg (FIORICET) per tablet, Take 1 tablet by mouth every 4 hours as needed for headache., Disp: , Rfl: ondansetron orally disintegrating (ZOFRAN ODT) 8 mg disintegrating tablet, , Disp: , Rfl: pantoprazole DR (PROTONIX) 20 mg tablet, Take 20 mg by mouth once daily., Disp: , Rfl: clopidogrel (PLAVIX) 75 mg tablet, Take 75 mg by mouth once daily., Disp: , Rfl: rosuvastatin (CRESTOR) 10 mg tablet, Take 1 tablet by mouth daily at bedtime., Disp: 30 tablet, Rfl: 2 aspirin 81 mg chewable tablet, Take 1 tablet by mouth once daily., Disp: , Rfl: 0 Current Facility-Administered Medications Medication Dose Route Frequency rosuvastatin 10 mg tab(s) (CRESTOR) 10 mg ORAL AT BEDTIME pantoprazole DR 20 mg tab(s) (PROTONIX) 20 mg ORAL DAILY lactated ringers iv infusion 100 mL/hr INTRAVENOUS CONTINUOUS acetaminophen 975 mg tab(s) (TYLENOL) 975 mg ORAL QID morphine 2 mg injection 2 mg INTRAVENOUS q 6 H PRN enoxaparin 40 mg injection (LOVENOX) 40 mg SUBCUTANEOUS DAILY NaCl 0.9% iv flush bag 20 mL INTRAVENOUS PRN ondansetron 4 mg tab(s) (ZOFRAN) 4 mg ORAL q 6 H PRN Or ondansetron (PF) 4 mg injection (ZOFRAN) 4 mg INTRAVENOUS q 6 H PRN oxyCODONE IR 5 mg tab(s) (ROXICODONE) 5 mg ORAL q 4 H PRN Allergies As of Date: 08/10/2024 Allergen Noted Reaction OMEPRAZOLE 05/26/2015 Other: See Comments SENNA 02/09/2023 Unknown Fully Assessed 07/28/2024 COMPLETE REVIEW OF SYSTEMS: Review of Systems Constitutional: Negative for chills and fever. Gastrointestinal: Positive for abdominal pain, constipation and nausea. Negative for diarrhea and vomiting. Genitourinary: Positive for urgency. Negative for dysuria. Objective PHYSICAL EXAM: BP 138/86 Pulse 70 Temp 36.9 ?C (98.4 ?F) (Oral) Resp 16 Ht 177.8 cm (5' 10) Wt 52.2 kg (115 lb) SpO2 96% BMI 16.50 kg/m? Body mass index is 16.5 kg/m?. Physical Exam Constitutional: General: He is not in acute distress. HENT: Head: Normocephalic and atraumatic. Eyes: Extraocular Movements: Extraocular movements intact. Pulmonary: Effort: Pulmonary effort is normal. Abdominal: General: There is no distension. Palpations: Abdomen is soft. Tenderness: There is abdominal tenderness. There is guarding. Musculoskeletal: General: No swelling. Skin: General: Skin is warm and dry. Neurological: General: No focal deficit present. Mental Status: He is alert. Psychiatric: Mood and Affect: Mood normal. Behavior: Behavior normal. DATA: Diagnostic tests reviewed for today's visit: Pending Assessment/Plan 64 year old male with PMHx GERD, hiatal hernia, mesenteric artery stenosis, who presents as direct admit for ongoing abdominal pain, possible need for EGD, CTE. - admit under surgery - NPO/IVF - pain/nausea control prn - bowel regimen as needed - obtain CT enterography - GI consult for EGD/colonoscopy - Discussed with Dr. Medeiros SIGNATURE: Helga Mantilla DO PATIENT NAME: Rajendra Hoffman DATE: August 10, 2024 TIME: 8:13 AM Pager: see below CNPN Observed: 08/04/2024 12:00 AM Status: COMPLETED Source: [facility] Telephone ([facility]) RAJENDRA HOFFMAN ([id number]) 1960 M Date Time Provider Department 08/04/24 MADALYN MCMILLAN [facility] During your visit today, we recorded the following information about you: Madelin Hoskins 08/04/2024 2:38 PM Signed Called pt to schedule EGD at [facility] with Dr Mcmillan, VM is full, unable to leave message Allergies As of Date: 08/04/2024 Noted Allergy Reaction OMEPRAZOLE 05/26/2015 14 - Other: See Comments Comments: Severe Headaches SENNA 02/09/2023 16 - Unknown Comments: Bottom lip swelled. Stopped swelling when senna dc Date Reviewed: 07/28/2024 Reviewed by: Tao Medeiros MD - Fully Assessed Prescriptions as of 08/04/2024 - hyoscyamine sublingual (LEVSIN/SL) 0.125 mg Dissolve 1 tablet under the tongue every 4 hours as needed. - hyoscyamine SR (LEVBID) 0.375 mg 12 hr tablet Take 1 tablet by mouth two times a day. - hyoscyamine (LEVSIN) 0.125 mg tablet Take 1 tablet by mouth every 4 hours as needed for diarrhea (and abdominal pain). - acetaminophen 325 mg-caffeine 40 mg-butalbital 50 mg (FIORICET) per tablet Take 1 tablet by mouth every 4 hours as needed for headache. - ondansetron orally disintegrating (ZOFRAN ODT) 8 mg disintegrating tablet - pantoprazole DR (PROTONIX) 20 mg tablet Take 20 mg by mouth once daily. - clopidogrel (PLAVIX) 75 mg tablet Take 75 mg by mouth once daily. - rosuvastatin (CRESTOR) 10 mg tablet Take 1 tablet by mouth daily at bedtime. - aspirin 81 mg chewable tablet Take 1 tablet by mouth once daily. 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] 03/27/2009 Median arcuate ligament syndrome (HCC) [I77.4] 09/16/2016 Epigastric pain [R10.13] 09/16/2016 Severe protein-calorie malnutrition (HCC) [E43] 09/16/2016 History of cholangitis [Z87.19] 09/16/2016 Lower abdominal pain [R10.30] 06/27/2017 Chronic mesenteric ischemia (HCC) [K55.1] 06/26/2017 Nicotine use disorder, F17.2 [F17.200] 06/27/2017 Polycythemia [D75.1] 08/24/2018 Gastroesophageal reflux disease without esophag*08/24/2018 Duodenitis [K29.80] 01/13/2023 Gastric ulcer [K25.9] 01/13/2023 Irritable bowel syndrome [K58.9] 01/13/2023 S/P arterial stent [Z95.9] 01/13/2023 Chronic abdominal pain [R10.9, G89.29] 01/13/2023 Atherosclerosis of superior mesenteric artery (*01/16/2023 Gastritis and gastroduodenitis [K29.70, K29.90] 01/17/2023 Acute post-operative pain [G89.18] 01/31/2023 Neck pain, chronic [M54.2, G89.29] 01/31/2023 Encounter for palliative care involving managem*01/31/2023 Encounter for pain management [R52] 01/31/2023 S/P partial gastrectomy [Z90.3] 02/10/2023 Degenerative disc disease, cervical [M50.30] 02/10/2023 Nausea and vomiting [R11.2] 02/10/2023 Gastrointestinal hemorrhage [K92.2] 02/11/2023 Mesenteric ischemia (HCC) [K55.9] 02/11/2023 Abdominal pain [R10.9] 05/18/2024 Encounter Status:Closed by MADELIN HOSKINS on 08/04/24 CREATININE BLD Collected: 5 7:58 AM Status: F Source: [facility] Order Comment: Specimen Type : BLOOD SPECIMEN Ordering Facility: [facility] Address: [address] [place] [address] TYPE CODE TESTS RESULT OUT OF RANGE REFERENCE UNITS LAB 2160-0(LOINC) Creat SerPl-mCnc 0.98 0.73-1.22 mg/dL LAB 80470-7(LOINC) Creatinine + eGFR Pnl SerPlBld 87 >=60 mL/min/1. 73m??? Result Comment: Estimated Gl omerular Filtration Rate (eGFR) is calculated using the 2020 CKD-EPI creatinine equation. This equation utilizes serum creatinine, sex, and age as parameters. The creatinine assay has traceable calibration to isotope dilution-mass spectrometry. Refer to KDIGO guidelines for clinical interpretation. In patients with unstable renal function, e.g. those with acute kidney injury, the eGFR may not accurately reflect actual GFR. Performed By: #### CRET1 ### # [facility] CLIA [id number] [address] [place] [address] [place] OF [place] Observed: 07/28/2024 2:33 PM Status: COMPLETED Source: [facility] HNO ID: [id number] Author: TAO MEDEIROS MD Service: ? Author Type: Physician Type: Progress Notes Filed: 07/30/2024 15:19 Note Text: Tao Medeiros M.D. Surgical Oncology [address] [facility], [address] [place] [address] Plan SUBJECTIVE HPI Rajendra Hoffman is a 64 year old male presenting for the evaluation of abdominal pain. Patient is known to the surgical oncology service after a distal gastrectomy complicated by takeback for bleeding. He ultimately recovered from this and was able to tolerate a diet. More recently he is noted crampy abdominal pain. He reports this comes and goes. He will note when he has this pain it is relieved with having bowel movements. These can be quite thin. He reports that he may have multiple bowel movements in the day to relieve this pain. He reports that previous abdominal pain that was associated with chronic mesenteric ischemia does not feel the same as this. It is mostly left-sided and down low into the pelvis. When the pain is severe it is associated with nausea but he feels this is secondary to the pain and not the primary problem. He was being evaluated by GI and was ultimately admitted to the hospital through the emergency department on May 18, 2024. He underwent a colonoscopy on May 19 this demonstrated diverticula and a small polyp in the splenic flexure. This was removed. There also appeared to be a benign intrinsic stenosis measuring 2 cm in length and approximately 1.5 cm in diameter in the sigmoid colon. This was able to be traversed. Biopsies of this had no pathologic abnormalities. Patient was then referred back to surgery for further evaluation. The ROS, medical, surgical, family, and social history were reviewed by Tao Medeiros MD. OBJECTIVE BP 108/72 Pulse 78 Ht 177.8 cm (5' 10) Wt 52.2 kg (115 lb 1.6 oz) SpO2 99% BMI 16.52 kg/m? BMI 16.52 kg/(m2) Physical Exam Constitutional: General: He is not in acute distress. HENT: Head: Normocephalic and atraumatic. Eyes: Pupils: Pupils are equal, round, and reactive to light. Neck: Thyroid: No thyromegaly. Trachea: No tracheal deviation. Cardiovascular: Rate and Rhythm: Normal rate and regular rhythm. Heart sounds: Normal heart sounds. Pulmonary: Effort: Pulmonary effort is normal. No respiratory distress. Breath sounds: Normal breath sounds. No stridor. Abdominal: General: There is no distension. Palpations: Abdomen is soft. Tenderness: There is no abdominal tenderness. Musculoskeletal: General: No deformity. Normal range of motion. Skin: General: Skin is warm and dry. Findings: No erythema or rash. Neurological: Mental Status: He is alert and oriented to person, place, and time. Psychiatric: Mood and Affect: Affect normal. Judgment: Judgment normal. ASSESSMENT AND PLAN 64-year-old man with a sigmoid colon stricture and significant abdominal pain. I discussed with patient that I am uncertain of the etiology of his stricture but I like to obtain a CT enterography to determine that he has no other intrinsic bowel pathology warranting evaluation. If he has only the stricture then intervention does make sense as his symptoms do appear to be consistent with a colonic stricture. However, I advised patient that I would like to discuss his care with our GI colleagues to determine if dilation/stenting may be of utility to relieve his symptoms and potentially provide definitive management versus proceeding with surgery. Answered all of his questions to his satisfaction and he is agreeable to this plan. He will follow-up with me after his CT scan. I spent a total of 45 minutes on the date of the service which included preparing to see the patient, completing clinical documentation, performing a medically appropriate examination, counseling and educating the patient/family/caregiver, and ordering medications, tests, or procedures. Tao Medeiros MD 07/28/2024 2:36 PM CNOV Observed: 07/28/2024 2:30 PM Status: COMPLETED Source: [facility] Office Visit (AGGENS3) RAJENDRA HOFFMAN ([id number]) 1960 M Date Time Provider Department 07/28/24 2:30 PM TAO MEDERIOS AGG3 During your visit today, we recorded the following information about you: Pulse Blood pressure Weight Height 78/minute 108/72 52.2 kg 1.778 m Tao Medeiros MD 07/30/2024 3:19 PM Signed Tao Medeiros M.D. Surgical Oncology [address] [facility], [address] [place] [address] Plan SUBJECTIVE HPI Rajendra Hoffman is a 64 year old male presenting for the evaluation of abdominal pain. Patient is known to the surgical oncology service after a distal gastrectomy complicated by takeback for bleeding. He ultimately recovered from this and was able to tolerate a diet. More recently he is noted crampy abdominal pain. He reports this comes and goes. He will note when he has this pain it is relieved with having bowel movements. These can be quite thin. He reports that he may have multiple bowel movements in the day to relieve this pain. He reports that previous abdominal pain that was associated with chronic mesenteric ischemia does not feel the same as this. It is mostly left-sided and down low into the pelvis. When the pain is severe it is associated with nausea but he feels this is secondary to the pain and not the primary problem. He was being evaluated by GI and was ultimately admitted to the hospital through the emergency department on May 18, 2024. He underwent a colonoscopy on May 19 this demonstrated diverticula and a small polyp in the splenic flexure. This was removed. There also appeared to be a benign intrinsic stenosis measuring 2 cm in length and approximately 1.5 cm in diameter in the sigmoid colon. This was able to be traversed. Biopsies of this had no pathologic abnormalities. Patient was then referred back to surgery for further evaluation. The ROS, medical, surgical, family, and social history were reviewed by Tao Medeiros MD. OBJECTIVE BP 108/72 Pulse 78 Ht 177.8 cm (5' 10) Wt 52.2 kg (115 lb 1.6 oz) SpO2 99% BMI 16.52 kg/m? BMI 16.52 kg/(m2) Physical Exam Constitutional: General: He is not in acute distress. HENT: Head: Normocephalic and atraumatic. Eyes: Pupils: Pupils are equal, round, and reactive to light. Neck: Thyroid: No thyromegaly. Trachea: No tracheal deviation. Cardiovascular: Rate and Rhythm: Normal rate and regular rhythm. Heart sounds: Normal heart sounds. Pulmonary: Effort: Pulmonary effort is normal. No respiratory distress. Breath sounds: Normal breath sounds. No stridor. Abdominal: General: There is no distension. Palpations: Abdomen is soft. Tenderness: There is no abdominal tenderness. Musculoskeletal: General: No deformity. Normal range of motion. Skin: General: Skin is warm and dry. Findings: No erythema or rash. Neurological: Mental Status: He is alert and oriented to person, place, and time. Psychiatric: Mood and Affect: Affect normal. Judgment: Judgment normal. ASSESSMENT AND PLAN 64-year-old man with a sigmoid colon stricture and significant abdominal pain. I discussed with patient that I am uncertain of the etiology of his stricture but I like to obtain a CT enterography to determine that he has no other intrinsic bowel pathology warranting evaluation. If he has only the stricture then intervention does make sense as his symptoms do appear to be consistent with a colonic stricture. However, I advised patient that I would like to discuss his care with our GI colleagues to determine if dilation/stenting may be of utility to relieve his symptoms and potentially provide definitive management versus proceeding with surgery. Answered all of his questions to his satisfaction and he is agreeable to this plan. He will follow-up with me after his CT scan. I spent a total of 45 minutes on the date of the service which included preparing to see the patient, completing clinical documentation, performing a medically appropriate examination, counseling and educating the patient/family/caregiver, and ordering medications, tests, or procedures. Tao Medeiros MD 07/28/2024 2:36 PM Referring Provider: GEORGE CLEMENTS [[id number]] Allergies As of Date: 07/28/2024 Noted Allergy Reaction OMEPRAZOLE 05/26/2015 14 - Other: See Comments Comments: Severe Headaches SENNA 02/09/2023 16 - Unknown Comments: Bottom lip swelled. Stopped swelling when senna dc Date Reviewed: 07/28/2024 Reviewed by: Tao Medeiros MD - Fully Assessed Reason for Visit: Follow Up [171] Cmt: Keep having abdominal pain attacks out of the blue Primary Visit Diagnosis:Inflammatory bowel disease [K52.9] Order(s):CT ENTEROGRAPHY W IVCON [8328479] Order #: [id number] FUTURE CREATININE BLD [SQCRET] Order #: [id number] FUTURE Prescriptions as of 07/30/2024 - hyoscyamine sublingual (LEVSIN/SL) 0.125 mg Dissolve 1 tablet under the tongue every 4 hours as needed. - hyoscyamine SR (LEVBID) 0.375 mg 12 hr tablet Take 1 tablet by mouth two times a day. - hyoscyamine (LEVSIN) 0.125 mg tablet Take 1 tablet by mouth every 4 hours as needed for diarrhea (and abdominal pain). - acetaminophen 325 mg-caffeine 40 mg-butalbital 50 mg (FIORICET) per tablet Take 1 tablet by mouth every 4 hours as needed for headache. - ondansetron orally disintegrating (ZOFRAN ODT) 8 mg disintegrating tablet - pantoprazole DR (PROTONIX) 20 mg tablet Take 20 mg by mouth once daily. - clopidogrel (PLAVIX) 75 mg tablet Take 75 mg by mouth once daily. - rosuvastatin (CRESTOR) 10 mg tablet Take 1 tablet by mouth daily at bedtime. - aspirin 81 mg chewable tablet Take 1 tablet by mouth once daily. 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] 03/27/2009 Median arcuate ligament syndrome (HCC) [I77.4] 09/16/2016 Epigastric pain [R10.13] 09/16/2016 Severe protein-calorie malnutrition (HCC) [E43] 09/16/2016 History of cholangitis [Z87.19] 09/16/2016 Lower abdominal pain [R10.30] 06/27/2017 Chronic mesenteric ischemia (HCC) [K55.1] 06/26/2017 Nicotine use disorder, F17.2 [F17.200] 06/27/2017 Polycythemia [D75.1] 08/24/2018 Gastroesophageal reflux disease without esophag*08/24/2018 Duodenitis [K29.80] 01/13/2023 Gastric ulcer [K25.9] 01/13/2023 Irritable bowel syndrome [K58.9] 01/13/2023 S/P arterial stent [Z95.9] 01/13/2023 Chronic abdominal pain [R10.9, G89.29] 01/13/2023 Atherosclerosis of superior mesenteric artery (*01/16/2023 Gastritis and gastroduodenitis [K29.70, K29.90] 01/17/2023 Acute post-operative pain [G89.18] 01/31/2023 Neck pain, chronic [M54.2, G89.29] 01/31/2023 Encounter for palliative care involving managem*01/31/2023 Encounter for pain management [R52] 01/31/2023 S/P partial gastrectomy [Z90.3] 02/10/2023 Degenerative disc disease, cervical [M50.30] 02/10/2023 Nausea and vomiting [R11.2] 02/10/2023 Gastrointestinal hemorrhage [K92.2] 02/11/2023 Mesenteric ischemia (HCC) [K55.9] 02/11/2023 Abdominal pain [R10.9] 05/18/2024 Level of Service: OFFICE/OUTPATIENT NEW MODERATE MDM 45 MINUTES [30451] Additional E/M codes: VISIT CPLX INHERENT EANDM ASSOC WITH MED * LOS History for Encounter Encounter Status:Closed by TAO MEDEIROS on 07/30/24 VIC Observed: 07/01/2024 12:00 AM Status: COMPLETED Source: [facility] Telephone (AGGASTN) RAJENDRA HOFFMAN ([id number]) 1960 M Date Time Provider Department 07/01/24 GEORGE CLEMENTS During your visit today, we recorded the following information about you: George Clements MD 07/01/2024 11:20 AM Signed Plz call pt and LHK that he had a script of Levsin SL(under tongue) prn abd pain.Tried? I'm also sending him back to Dr. Medeiros to see his opinion re: his recurrent abd pain. Coral Sandoval MA 07/01/2024 11:24 AM Signed Left message to call back LELIA Aguilar Shawna, MA 07/01/2024 11:27 AM Signed Pt called back and informed referral given to Dr Medeiros office LELIA Aguilar Desaray, MA 07/02/2024 11:24 AM Signed The patient called the office stating the pharmacy did not get the Levsin SL(under tongue) prn abd pain. The patient wanted to know if it could be sent in and said he tired the pill form and his body could not digest it. And that it would come out in his stool. Please advise Shirley Chavez MA July 02, 2024 11:18 AM Kristine Dixon PA-C 07/02/2024 1:54 PM Signed Ok sent levsin sublingual for him. Kristine Dixon PA-C 07/02/2024 1:54 PM Signed Addended by: KRISTINE DIXON on: 07/02/2024 01:54 PM Modules accepted: Shirley Shafer MA 07/02/2024 4:08 PM Signed Patient notified Shirley Chavez MA July 02, 2024 Allergies As of Date: 07/01/2024 Noted Allergy Reaction OMEPRAZOLE 05/26/2015 14 - Other: See Comments Comments: Severe Headaches SENNA 02/09/2023 16 - Unknown Comments: Bottom lip swelled. Stopped swelling when senna dc Date Reviewed: 05/19/2024 Reviewed by: Kate Gonzalez RN - Fully Assessed Reason for Visit: Medication Request [138] Primary Visit Diagnosis:Generalized abdominal pain [R10.84] Order(s):CONSULT TO GENERAL SURGERY [9087] Order #: [id number]: 1 FUTURE hyoscyamine sublingual (LEVSIN/SL) 0.125 mgDissolve 1 tablet under the tongue every 4 hours as needed.Disp: 60 tabletRfl: 1 Prescriptions as of 07/02/2024 - hyoscyamine sublingual (LEVSIN/SL) 0.125 mg Dissolve 1 tablet under the tongue every 4 hours as needed. - hyoscyamine SR (LEVBID) 0.375 mg 12 hr tablet Take 1 tablet by mouth two times a day. - hyoscyamine (LEVSIN) 0.125 mg tablet Take 1 tablet by mouth every 4 hours as needed for diarrhea (and abdominal pain). - acetaminophen 325 mg-caffeine 40 mg-butalbital 50 mg (FIORICET) per tablet Take 1 tablet by mouth every 4 hours as needed for headache. - ondansetron orally disintegrating (ZOFRAN ODT) 8 mg disintegrating tablet - pantoprazole DR (PROTONIX) 20 mg tablet Take 20 mg by mouth once daily. - clopidogrel (PLAVIX) 75 mg tablet Take 75 mg by mouth once daily. - rosuvastatin (CRESTOR) 10 mg tablet Take 1 tablet by mouth daily at bedtime. - aspirin 81 mg chewable tablet Take 1 tablet by mouth once daily. 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] 03/27/2009 Median arcuate ligament syndrome (HCC) [I77.4] 09/16/2016 Epigastric pain [R10.13] 09/16/2016 Severe protein-calorie malnutrition (HCC) [E43] 09/16/2016 History of cholangitis [Z87.19] 09/16/2016 Lower abdominal pain [R10.30] 06/27/2017 Chronic mesenteric ischemia (HCC) [K55.1] 06/26/2017 Nicotine use disorder, F17.2 [F17.200] 06/27/2017 Polycythemia [D75.1] 08/24/2018 Gastroesophageal reflux disease without esophag*08/24/2018 Duodenitis [K29.80] 01/13/2023 Gastric ulcer [K25.9] 01/13/2023 Irritable bowel syndrome [K58.9] 01/13/2023 S/P arterial stent [Z95.9] 01/13/2023 Chronic abdominal pain [R10.9, G89.29] 01/13/2023 Atherosclerosis of superior mesenteric artery (*01/16/2023 Gastritis and gastroduodenitis [K29.70, K29.90] 01/17/2023 Acute post-operative pain [G89.18] 01/31/2023 Neck pain, chronic [M54.2, G89.29] 01/31/2023 Encounter for palliative care involving managem*01/31/2023 Encounter for pain management [R52] 01/31/2023 S/P partial gastrectomy [Z90.3] 02/10/2023 Degenerative disc disease, cervical [M50.30] 02/10/2023 Nausea and vomiting [R11.2] 02/10/2023 Gastrointestinal hemorrhage [K92.2] 02/11/2023 Mesenteric ischemia (HCC) [K55.9] 02/11/2023 Abdominal pain [R10.9] 05/18/2024 Prescriptions ordered this encounter Disp Refills Start End HYOSCYAMINE 0.125 MG SUBLINGUAL TABL* 60 t* 1 07/02/2024 Route: SUBLINGUAL Sig: Dissolve 1 tablet under the tongue every 4 hours as needed. Encounter Status:Closed by CORAL SANDOVAL on 07/01/24 VIC Observed: 06/24/2024 12:00 AM Status: COMPLETED Source: [facility] Telephone (AGGASTACC) RAJENDRA HOFFMAN ([id number]) 1960 M Date Time Provider Department 06/24/24 MADELIN NAIDU During your visit today, we recorded the following information about you: Jessica House 06/24/2024 11:02 AM Signed Pt called in is franco Clements pt The medication for his abd isn't working for his swollen colon he is in such intense pain couldn't return to work wants to see if he can change to a stronger medication or up the dosage Kristine Lynn PA-C 06/24/2024 11:50 AM Signed Defer to Dr Clements- looks like he has already tried bentyl a few years ago and he has a narrowed section of colon- so not sure what else to try. Coral Sandoval MA 06/29/2024 10:32 AM Signed Pt calling back states when he has a bowel movement the levsin pills are in his stool as if they aren not digesting in his body could be why they are not working please advise LELIA Aguilar Jessica, PA-C 06/29/2024 12:26 PM Signed I know with some pills/capsule they can be seen in stool, but the medication has been released. This is also noted on the [facility] website regarding this medication. As Rose said before, I would defer to Dr. Clements. HARPER Good Shawna, MA 07/01/2024 11:26 AM Signed Pt informed referral sent to Dr Waldemar Sandoval MA Allergies As of Date: 06/24/2024 Noted Allergy Reaction OMEPRAZOLE 05/26/2015 14 - Other: See Comments Comments: Severe Headaches SENNA 02/09/2023 16 - Unknown Comments: Bottom lip swelled. Stopped swelling when senna dc Date Reviewed: 05/19/2024 Reviewed by: Kate Gonzalez, JERILYN - Fully Assessed Reason for Visit: Patient Question [7807] Prescriptions as of 07/01/2024 - hyoscyamine SR (LEVBID) 0.375 mg 12 hr tablet Take 1 tablet by mouth two times a day. - hyoscyamine (LEVSIN) 0.125 mg tablet Take 1 tablet by mouth every 4 hours as needed for diarrhea (and abdominal pain). - acetaminophen 325 mg-caffeine 40 mg-butalbital 50 mg (FIORICET) per tablet Take 1 tablet by mouth every 4 hours as needed for headache. - ondansetron orally disintegrating (ZOFRAN ODT) 8 mg disintegrating tablet - pantoprazole DR (PROTONIX) 20 mg tablet Take 20 mg by mouth once daily. - clopidogrel (PLAVIX) 75 mg tablet Take 75 mg by mouth once daily. - rosuvastatin (CRESTOR) 10 mg tablet Take 1 tablet by mouth daily at bedtime. - aspirin 81 mg chewable tablet Take 1 tablet by mouth once daily. 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] 03/27/2009 Median arcuate ligament syndrome (HCC) [I77.4] 09/16/2016 Epigastric pain [R10.13] 09/16/2016 Severe protein-calorie malnutrition (HCC) [E43] 09/16/2016 History of cholangitis [Z87.19] 09/16/2016 Lower abdominal pain [R10.30] 06/27/2017 Chronic mesenteric ischemia (HCC) [K55.1] 06/26/2017 Nicotine use disorder, F17.2 [F17.200] 06/27/2017 Polycythemia [D75.1] 08/24/2018 Gastroesophageal reflux disease without esophag*08/24/2018 Duodenitis [K29.80] 01/13/2023 Gastric ulcer [K25.9] 01/13/2023 Irritable bowel syndrome [K58.9] 01/13/2023 S/P arterial stent [Z95.9] 01/13/2023 Chronic abdominal pain [R10.9, G89.29] 01/13/2023 Atherosclerosis of superior mesenteric artery (*01/16/2023 Gastritis and gastroduodenitis [K29.70, K29.90] 01/17/2023 Acute post-operative pain [G89.18] 01/31/2023 Neck pain, chronic [M54.2, G89.29] 01/31/2023 Encounter for palliative care involving managem*01/31/2023 Encounter for pain management [R52] 01/31/2023 S/P partial gastrectomy [Z90.3] 02/10/2023 Degenerative disc disease, cervical [M50.30] 02/10/2023 Nausea and vomiting [R11.2] 02/10/2023 Gastrointestinal hemorrhage [K92.2] 02/11/2023 Mesenteric ischemia (HCC) [K55.9] 02/11/2023 Abdominal pain [R10.9] 05/18/2024 Encounter Status:Closed by MADELIN NAIDU on 06/29/24 VIC Observed: 06/24/2024 12:00 AM Status: COMPLETED Source: [facility] Telephone (VASSWS) RAJENDRA HOFFMAN ([id number]) 1960 Date Time Provider Department 06/24/24 SHANTA RICHARDSON [employer] During your visit today, we recorded the following information about you: Yvonne Lui MA 06/24/2024 12:16 PM Signed Patient reached out to the [place] office. He is having GI issues that he is trying to get resolved. He was cleared to proceed with colonoscopy, which he completed back in April 2024. He was also having an attack at that time and he was admitted to [facility]. He has celiac and SMA stenting. He had CT scan of his abdomen which shows that he has a 70-90% blockage at the junction of his 2 stents He is having abdominal pain again. He was urged by Dr. Clements to reach out to vascular office. He would like for recent testing and follow ups with GI reviewed by Dr. Richardson. Patient can be reached back at [phone]. Amber Caal, RN 06/25/2024 10:[address] Richardson , OV note and imaging reviewed, she is recommending f/u in 6 month with repeat imaging. Called patient and informed of provider recommendations Appt scheduled. Encounter closed Allergies As of Date: 06/24/2024 Noted Allergy Reaction OMEPRAZOLE 05/26/2015 14 - Other: See Comments Comments: Severe Headaches SENNA 02/09/2023 16 - Unknown Comments: Bottom lip swelled. Stopped swelling when senna dc Date Reviewed: 05/19/2024 Reviewed by: Kate Gonzalez RN - Fully Assessed Prescriptions as of 06/25/2024 - hyoscyamine SR (LEVBID) 0.375 mg 12 hr tablet Take 1 tablet by mouth two times a day. - hyoscyamine (LEVSIN) 0.125 mg tablet Take 1 tablet by mouth every 4 hours as needed for diarrhea (and abdominal pain). - acetaminophen 325 mg-caffeine 40 mg-butalbital 50 mg (FIORICET) per tablet Take 1 tablet by mouth every 4 hours as needed for headache. - ondansetron orally disintegrating (ZOFRAN ODT) 8 mg disintegrating tablet - pantoprazole DR (PROTONIX) 20 mg tablet Take 20 mg by mouth once daily. - clopidogrel (PLAVIX) 75 mg tablet Take 75 mg by mouth once daily. - rosuvastatin (CRESTOR) 10 mg tablet Take 1 tablet by mouth daily at bedtime. - aspirin 81 mg chewable tablet Take 1 tablet by mouth once daily. 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] 03/27/2009 Median arcuate ligament syndrome (HCC) [I77.4] 09/16/2016 Epigastric pain [R10.13] 09/16/2016 Severe protein-calorie malnutrition (HCC) [E43] 09/16/2016 History of cholangitis [Z87.19] 09/16/2016 Lower abdominal pain [R10.30] 06/27/2017 Chronic mesenteric ischemia (HCC) [K55.1] 06/26/2017 Nicotine use disorder, F17.2 [F17.200] 06/27/2017 Polycythemia [D75.1] 08/24/2018 Gastroesophageal reflux disease without esophag*08/24/2018 Duodenitis [K29.80] 01/13/2023 Gastric ulcer [K25.9] 01/13/2023 Irritable bowel syndrome [K58.9] 01/13/2023 S/P arterial stent [Z95.9] 01/13/2023 Chronic abdominal pain [R10.9, G89.29] 01/13/2023 Atherosclerosis of superior mesenteric artery (*01/16/2023 Gastritis and gastroduodenitis [K29.70, K29.90] 01/17/2023 Acute post-operative pain [G89.18] 01/31/2023 Neck pain, chronic [M54.2, G89.29] 01/31/2023 Encounter for palliative care involving managem*01/31/2023 Encounter for pain management [R52] 01/31/2023 S/P partial gastrectomy [Z90.3] 02/10/2023 Degenerative disc disease, cervical [M50.30] 02/10/2023 Nausea and vomiting [R11.2] 02/10/2023 Gastrointestinal hemorrhage [K92.2] 02/11/2023 Mesenteric ischemia (HCC) [K55.9] 02/11/2023 Abdominal pain [R10.9] 05/18/2024 Encounter Status:Closed by AMBER CAAL on 06/25/24 PROGRESS Observed: 06/03/2024 10:19 AM Status: COMPLETED Source: [facility] HNO ID: [id number] Author: GEORGE CLEMENTS MD Service: ? Author Type: Physician Type: Progress Notes Filed: 06/03/2024 10:39 Note Text: HPI: Rajendra Hoffman is a 64 year old male who presents for follow up of Follow Up. We went over his colonoscopy results including path. He does have a narrowed area in the sigmoid colon likely related to diverticulosis and adhesions that req'g changing to peds scope then gastroscope. Current Outpatient Medications Medication Sig acetaminophen 325 mg-caffeine 40 mg-butalbital 50 mg (FIORICET) per tablet Take 1 tablet by mouth every 4 hours as needed for headache. ondansetron orally disintegrating (ZOFRAN ODT) 8 mg disintegrating tablet pantoprazole DR (PROTONIX) 20 mg tablet Take 20 mg by mouth once daily. clopidogrel (PLAVIX) 75 mg tablet Take 75 mg by mouth once daily. aspirin 81 mg chewable tablet Take 1 tablet by mouth once daily. hyoscyamine (LEVSIN) 0.125 mg tablet Take 1 tablet by mouth every 4 hours as needed for diarrhea (and abdominal pain). (Patient not taking: Reported on 05/18/2024) ondansetron (ZOFRAN) 4 mg tablet Take 1 tablet by mouth every 8 hours as needed for nausea/vomiting. rosuvastatin (CRESTOR) 10 mg tablet Take 1 tablet by mouth daily at bedtime. No current facility-administered medications for this visit. ALLERGIES Allergen Reactions Omeprazole Other: See Comments Severe Headaches Senna Unknown Bottom lip swelled. Stopped swelling when senna dc REVIEW OF SYSTEMS: GENERAL: No weight loss, malaise or fevers. HEENT: Negative for frequent or significant headaches, No changes in hearing or vision, no nose bleeds or other nasal problems. NECK: Negative for lumps, goiter, pain and significant neck swelling. RESPIRATORY: Negative for cough, hemoptysis, wheezing or shortness of breath CARDIOVASCULAR: Negative for chest pain, leg swelling or palpitations GI: See HPI : No history of dysuria, frequency or incontinence MUSCULOSKELETAL: Negative for joint pain or swelling, back pain or muscle pain. SKIN: Negative for lesions, rash, and itching PSYCH: Negative for sleep disturbance, mood disorder and recent psychosocial stressors NEURO: No history of headaches, syncope, paralysis, seizures or tremors PHYSICAL EXAMINATION: BP 137/90 Pulse 93 Ht 5' 10 (1.78m) Wt 113 lb (51.3kg) BMI 16.21 kg/(m2). GENERAL APPEARANCE: Well appearing, alert, in no acute distress, well-hydrated, well nourished. EYES: No icterus ABDOMEN: Normal, soft, non-tender, no masses or organomegaly. ASSESSMENT AND PLAN: ASSESSMENT/PLAN: 1. Lower abdominal pain - ICD9: 789.09, ICD10: R10.30 - has episodic pain-no pattern - may be related to adhesions/combo w diverticulosis - low residue diet - HYOSCYAMINE ER 0.375 MG TABLET,EXTENDED RELEASE,12 HR - has had w/up - has vascular dz but apparently not enough to suggest cause of sxs. - Pt on Plavix, BASA daily - needs to quit smoking altogether George Clements MD CNOV Observed: 06/03/2024 9:45 AM Status: COMPLETED Source: [facility] Office Visit (AGGASTN) RAJENDRA HOFFMAN ([id number]) 1960 M Date Time Provider Department 06/03/24 9:45 AM GEORGE CLEMENTS During your visit today, we recorded the following information about you: Pulse Blood pressure Weight Height 93/minute 137/90 51.3 kg 1.778 m George Clements MD 06/03/2024 10:39 AM Signed HPI: Rajendra Hoffman is a 64 year old male who presents for follow up of Follow Up. We went over his colonoscopy results including path. He does have a narrowed area in the sigmoid colon likely related to diverticulosis and adhesions that req'g changing to peds scope then gastroscope. Current Outpatient Medications Medication Sig acetaminophen 325 mg-caffeine 40 mg-butalbital 50 mg (FIORICET) per tablet Take 1 tablet by mouth every 4 hours as needed for headache. ondansetron orally disintegrating (ZOFRAN ODT) 8 mg disintegrating tablet pantoprazole DR (PROTONIX) 20 mg tablet Take 20 mg by mouth once daily. clopidogrel (PLAVIX) 75 mg tablet Take 75 mg by mouth once daily. aspirin 81 mg chewable tablet Take 1 tablet by mouth once daily. hyoscyamine (LEVSIN) 0.125 mg tablet Take 1 tablet by mouth every 4 hours as needed for diarrhea (and abdominal pain). (Patient not taking: Reported on 05/18/2024) ondansetron (ZOFRAN) 4 mg tablet Take 1 tablet by mouth every 8 hours as needed for nausea/vomiting. rosuvastatin (CRESTOR) 10 mg tablet Take 1 tablet by mouth daily at bedtime. No current facility-administered medications for this visit. ALLERGIES Allergen Reactions Omeprazole Other: See Comments Severe Headaches Senna Unknown Bottom lip swelled. Stopped swelling when senna dc REVIEW OF SYSTEMS: GENERAL: No weight loss, malaise or fevers. HEENT: Negative for frequent or significant headaches, No changes in hearing or vision, no nose bleeds or other nasal problems. NECK: Negative for lumps, goiter, pain and significant neck swelling. RESPIRATORY: Negative for cough, hemoptysis, wheezing or shortness of breath CARDIOVASCULAR: Negative for chest pain, leg swelling or palpitations GI: See HPI : No history of dysuria, frequency or incontinence MUSCULOSKELETAL: Negative for joint pain or swelling, back pain or muscle pain. SKIN: Negative for lesions, rash, and itching PSYCH: Negative for sleep disturbance, mood disorder and recent psychosocial stressors NEURO: No history of headaches, syncope, paralysis, seizures or tremors PHYSICAL EXAMINATION: BP 137/90 Pulse 93 Ht 5' 10 (1.78m) Wt 113 lb (51.3kg) BMI 16.21 kg/(m2). GENERAL APPEARANCE: Well appearing, alert, in no acute distress, well-hydrated, well nourished. EYES: No icterus ABDOMEN: Normal, soft, non-tender, no masses or organomegaly. ASSESSMENT AND PLAN: ASSESSMENT/PLAN: 1. Lower abdominal pain - ICD9: 789.09, ICD10: R10.30 - has episodic pain-no pattern - may be related to adhesions/combo w diverticulosis - low residue diet - HYOSCYAMINE ER 0.375 MG TABLET,EXTENDED RELEASE,12 HR - has had w/up - has vascular dz but apparently not enough to suggest cause of sxs. - Pt on Plavix, BASA daily - needs to quit smoking altogether George Clements MD Allergies As of Date: 06/03/2024 Noted Allergy Reaction OMEPRAZOLE 05/26/2015 14 - Other: See Comments Comments: Severe Headaches SENNA 02/09/2023 16 - Unknown Comments: Bottom lip swelled. Stopped swelling when senna dc Date Reviewed: 05/19/2024 Reviewed by: Kate Gonzalez RN - Fully Assessed Reason for Visit: Follow Up [171] Primary Visit Diagnosis:Lower abdominal pain [R10.30] Order(s):hyoscyamine SR (LEVBID) 0.375 mg 12 hr tabletTake 1 tablet by mouth two times a day.Disp: 60 tabletRfl: 4 Prescriptions as of 06/03/2024 - hyoscyamine SR (LEVBID) 0.375 mg 12 hr tablet Take 1 tablet by mouth two times a day. - hyoscyamine (LEVSIN) 0.125 mg tablet Take 1 tablet by mouth every 4 hours as needed for diarrhea (and abdominal pain). - ondansetron (ZOFRAN) 4 mg tablet Take 1 tablet by mouth every 8 hours as needed for nausea/vomiting. - acetaminophen 325 mg-caffeine 40 mg-butalbital 50 mg (FIORICET) per tablet Take 1 tablet by mouth every 4 hours as needed for headache. - ondansetron orally disintegrating (ZOFRAN ODT) 8 mg disintegrating tablet - pantoprazole DR (PROTONIX) 20 mg tablet Take 20 mg by mouth once daily. - clopidogrel (PLAVIX) 75 mg tablet Take 75 mg by mouth once daily. - rosuvastatin (CRESTOR) 10 mg tablet Take 1 tablet by mouth daily at bedtime. - aspirin 81 mg chewable tablet Take 1 tablet by mouth once daily. 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] 03/27/2009 Median arcuate ligament syndrome (HCC) [I77.4] 09/16/2016 Epigastric pain [R10.13] 09/16/2016 Severe protein-calorie malnutrition (HCC) [E43] 09/16/2016 History of cholangitis [Z87.19] 09/16/2016 Lower abdominal pain [R10.30] 06/27/2017 Chronic mesenteric ischemia (HCC) [K55.1] 06/26/2017 Nicotine use disorder, F17.2 [F17.200] 06/27/2017 Polycythemia [D75.1] 08/24/2018 Gastroesophageal reflux disease without esophag*08/24/2018 Duodenitis [K29.80] 01/13/2023 Gastric ulcer [K25.9] 01/13/2023 Irritable bowel syndrome [K58.9] 01/13/2023 S/P arterial stent [Z95.9] 01/13/2023 Chronic abdominal pain [R10.9, G89.29] 01/13/2023 Atherosclerosis of superior mesenteric artery (*01/16/2023 Gastritis and gastroduodenitis [K29.70, K29.90] 01/17/2023 Acute post-operative pain [G89.18] 01/31/2023 Neck pain, chronic [M54.2, G89.29] 01/31/2023 Encounter for palliative care involving managem*01/31/2023 Encounter for pain management [R52] 01/31/2023 S/P partial gastrectomy [Z90.3] 02/10/2023 Degenerative disc disease, cervical [M50.30] 02/10/2023 Nausea and vomiting [R11.2] 02/10/2023 Gastrointestinal hemorrhage [K92.2] 02/11/2023 Mesenteric ischemia (HCC) [K55.9] 02/11/2023 Abdominal pain [R10.9] 05/18/2024 Prescriptions ordered this encounter Disp Refills Start End HYOSCYAMINE ER 0.375 MG TABLET,EXTEN* 60 t* 4 06/03/2024 Route: ORAL Sig: Take 1 tablet by mouth two times a day. Disposition: Return f/up 3-4 mos. Follow-up and Disposition History for Encounter Date Provider Department Center 06/03/2024 [id number]-PDVRAGEORGE CLEMENTS [facility] Encounter Status:Closed by GEORGE CLEMENTS on 06/03/24 CNPN Observed: 05/28/2024 12:00 AM Status: COMPLETED Source: [facility] Telephone (AGGASTACC) RAJENDRA HOFFMAN ([id number]) 1960 M Date Time Provider Department 05/28/24 GEORGE CLEMENTS During your visit today, we recorded the following information about you: Shirley Chavez MA 05/28/2024 10:37 AM Signed ----- Message from George Cleemnts MD sent at 05/26/2024 12:57 PM EST ----- Recall colonoscopy 5 yrs Shirley Chavez MA 05/28/2024 10:41 AM Signed Recall Completed Shirley Chavez MA May 28, 2024 10:38 AM Allergies As of Date: 05/28/2024 Noted Allergy Reaction OMEPRAZOLE 05/26/2015 14 - Other: See Comments Comments: Severe Headaches SENNA 02/09/2023 16 - Unknown Comments: Bottom lip swelled. Stopped swelling when senna dc Date Reviewed: 05/19/2024 Reviewed by: Kate Gnozalez RN - Fully Assessed Reason for Visit: Prescriptions as of 05/28/2024 - hyoscyamine (LEVSIN) 0.125 mg tablet Take 1 tablet by mouth every 4 hours as needed for diarrhea (and abdominal pain). - ondansetron (ZOFRAN) 4 mg tablet Take 1 tablet by mouth every 8 hours as needed for nausea/vomiting. - acetaminophen 325 mg-caffeine 40 mg-butalbital 50 mg (FIORICET) per tablet Take 1 tablet by mouth every 4 hours as needed for headache. - ondansetron orally disintegrating (ZOFRAN ODT) 8 mg disintegrating tablet - pantoprazole DR (PROTONIX) 20 mg tablet Take 20 mg by mouth once daily. - clopidogrel (PLAVIX) 75 mg tablet Take 75 mg by mouth once daily. - rosuvastatin (CRESTOR) 10 mg tablet Take 1 tablet by mouth daily at bedtime. - aspirin 81 mg chewable tablet Take 1 tablet by mouth once daily. 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] 03/27/2009 Median arcuate ligament syndrome (HCC) [I77.4] 09/16/2016 Epigastric pain [R10.13] 09/16/2016 Severe protein-calorie malnutrition (HCC) [E43] 09/16/2016 History of cholangitis [Z87.19] 09/16/2016 Lower abdominal pain [R10.30] 06/27/2017 Chronic mesenteric ischemia (HCC) [K55.1] 06/26/2017 Nicotine use disorder, F17.2 [F17.200] 06/27/2017 Polycythemia [D75.1] 08/24/2018 Gastroesophageal reflux disease without esophag*08/24/2018 Duodenitis [K29.80] 01/13/2023 Gastric ulcer [K25.9] 01/13/2023 Irritable bowel syndrome [K58.9] 01/13/2023 S/P arterial stent [Z95.9] 01/13/2023 Chronic abdominal pain [R10.9, G89.29] 01/13/2023 Atherosclerosis of superior mesenteric artery (*01/16/2023 Gastritis and gastroduodenitis [K29.70, K29.90] 01/17/2023 Acute post-operative pain [G89.18] 01/31/2023 Neck pain, chronic [M54.2, G89.29] 01/31/2023 Encounter for palliative care involving managem*01/31/2023 Encounter for pain management [R52] 01/31/2023 S/P partial gastrectomy [Z90.3] 02/10/2023 Degenerative disc disease, cervical [M50.30] 02/10/2023 Nausea and vomiting [R11.2] 02/10/2023 Gastrointestinal hemorrhage [K92.2] 02/11/2023 Mesenteric ischemia (HCC) [K55.9] 02/11/2023 Abdominal pain [R10.9] 05/18/2024 Encounter Status:Closed by SHIRLEY CHAVEZ on 05/28/24 CNDS Observed: 05/19/2024 4:40 PM Status: COMPLETED Source: [facility] HNO ID: [id number] Author: FRITZ MARIN MD Service: Hospital Medicine Author Type: Nurse Practitioner Type: Discharge Summary Filed: 05/24/2024 08:27 Note Text: Attestation signed by Fritz Marin MD at 05/24/2024 8:27 AM atttested DISCHARGE SUMMARY PATIENT NAME: Rajendra Hoffman ADMISSION DATE: 05/18/2024 DISCHARGE DATE: 05/19/2024 Attending Physician: Fritz Marin MD Code Status: Prior Highest Readmission Risk Score: 8 The 30 day readmissions risk score is derived from an internally validated risk model which evaluates patient level characteristics, utilization history, medication orders and lab results up until the day of discharge. Patients with a score of 40 or above are considered highest risk for readmission. Specific patient level drivers will be listed at the bottom of the summary. Reason for Hospitalization: abdominal pain Diagnosis: Principal Problem: Abdominal pain (POA: Yes) Active Problems: Lower abdominal pain (POA: Yes) Resolved Problems: * No resolved hospital problems. * Sepsis Ruled Out Hospital Course as Described to the Patient: You were admitted for abdominal pain. Rajendra Hoffman, norman presented to the emergency department with complaints of abdominal pain. It was decided you warranted further evaluation in which you were admitted to the rapid observation unit for further work-up and evaluation. During your admission we obtained additional blood tests, continuously monitored your heart and vital signs. You also had a colonoscopy which revealed a polyp that was removed. Biopsies were taken and please schedule follow-up with GI for these results. At this time, we feel it is safe for you to return home. DISCHARGE HOME GOING PLAN: -Follow-up with GI -We encourage participitating in daily physical activity 3-4 days per week, 30 minutes per day -We encourage following a diet that is low in salt, fat and cholesterol -Continue current medication regimen as prescribed by your PCP -1-2 week PCP follow-up to discuss recent admission and ensure you continue to improve RETURN TO THE EMERGENCY DEPARTMENT WITH WORSENING SYMPTOMS OR NEW CONCERNS ARISE Additional Provider to Provider Information: Rajendra Hoffman is a 64 year old male with history of mesenteric ischemia, GI hemorrhage, partial gastrectomy, neck pain, chronic abdominal pain, irritable bowel syndrome, gastric ulcer, duodenitis, GERD, nicotine use disorder, severe protein calorie mall nutrition scented to the emergency department after he was sent over from the endoscopy unit where he was supposed to have a colonoscopy with severe abdominal pain. The patient states that shortly after starting his bowel prep last evening for his colonoscopy today he started experiencing worsening of his abdominal pain. He describes the pain as sharp, cramping and this morning he stated he even had dry heaves. ED COURSE: CBC with a white blood cell count of 11.89, hemoglobin 11.8, hematocrit 36.8 CMP with sodium 135, CO2 18, BUN 20, creatinine 1.52, alkaline phos 173 UA positive for ketones, protein, RBCs 3-5 CT scan of abdomen and pelvis reveals: There is a celiac artery stent. The stent lumen is patent without significant narrowing. There is stenting of the SMA. There is intraluminal narrowing. Possible high-grade stenosis at the junction of the 2 stents. Cholecystectomy. Common bile duct dilatation up to 9 mm, nonspecific. In the emergency department he was given 3 doses of Dilaudid and IV fluid bolus of normal saline and Zofran 4 mg IV He underwent a colonoscopy today which revealed: A 5 to 7 mm polyp that was found in the splenic flexure and was removed with a cold snare, biopsies for his theology were taken with a cold forceps from the right and left colon for evaluation of microscopic colitis, a benign-appearing intrinsic moderate stenosis measuring 2 cm in length x 1.5 cm inner diameter was found in the sigmoid colon and traversed this was likely related to diverticular disease and adhesions, 2 areas of tattoo were seen in the sigmoid colon and the tattoo sites appeared normal; overall the impression is normal. The patient has been informed of the results and encouraged to follow-up with GI for the biopsy report. He has been also encouraged to maintain a high-fiber diet. Strict return precautions were discussed, questions answered and understanding stated regarding the discharge plan of care. I have reviewed, confirmed, and edited as necessary, the PFSH and ROS obtained by others. DATA: Most recent labs and imaging results reviewed. Operations During Hospitalization: colonoscopy Procedures During Hospitalization: CT Scan colonoscopy Consulting Teams During Hospitalization: Treatment Team: Attending Provider: Fritz Marin MD Consulting: George Clements MD None Patient Condition @ Discharge: Stable Discharge Disposition: Home/Self Care BP 114/67 Pulse 60 Temp (Src) 98.2 (Temporal) Resp 16 Ht 5' 10 (1.78m) Wt 108 lb 0.4 oz (49.0kg) SpO2 100% BMI 15.50 kg/(m2). O2 Therapy: Room Air PHYSICAL EXAM: GENERAL: Alert, in no acute distress SKIN: Intact, warm, and dry HEAD: Normocephalic. Atraumatic. NECK: Supple, ROM intact. EENT: PERRL MMM LUNGS: Clear to auscultation bilaterally with no wheezes, crackles or rhonchi. No accessory muscle use or increased work of breathing. CARDIAC: Regular rate AND rhythm, normal S1 and S2. No murmur, gallops or rubs. 2+radial and DPs bilaterally. ABDOMEN: Soft, non-tender, non-distended, bowel sounds normoactive EXTREMITIES: Moving bilateral upper and lower extemities at baseline. NEURO: Alert and oriented x 3. Speech clear. Answering questions appropriately. No focal neurological deficits. PSYCH: Cooperative. Calm and appropriate. Information Provided to Patient: Patient provided with printed discharge instructions Diet: Low cholesterol Low triglycerides Low fat Low salt Activity: Resume pre-hospital activity Wound/Surgical Site Care: none ALLERGIES Allergen Reactions Omeprazole Other: See Comments Severe Headaches Senna Unknown Bottom lip swelled. Stopped swelling when senna dc Discharge Medications: Medication List CONTINUE taking these medications acetaminophen 325 mg-caffeine 40 mg-butalbital 50 mg per tablet Commonly known as: FIORICET aspirin 81 mg chewable tablet Take 1 tablet by mouth once daily. clopidogrel 75 mg tablet Commonly known as: PLAVIX ondansetron 4 mg tablet Commonly known as: ZOFRAN Take 1 tablet by mouth every 8 hours as needed for nausea/vomiting. ondansetron orally disintegrating 8 mg disintegrating tablet Commonly known as: ZOFRAN ODT PROTONIX 20 mg tablet Generic drug: pantoprazole DR rosuvastatin 10 mg tablet Commonly known as: CRESTOR Take 1 tablet by mouth daily at bedtime. STOP taking these medications dicyclomine 20 mg tablet Commonly known as: BENTYL sucralfate 1 gram tablet Commonly known as: CARAFATE ASK your doctor about these medications hyoscyamine 0.125 mg tablet Commonly known as: LEVSIN Take 1 tablet by mouth every 4 hours as needed for diarrhea (and abdominal pain). Future Appointments: Follow Up with PCP: Richard Ramsey MD Appointments for Next 45 Days Date and Time Provider Department Dept Phone 04/26/2025 8:00 AM [facility] [phone] 04/26/2025 9:00 AM Shanta Richardson [facility] [phone] The patient's risk for 30-day readmission is determined using the following contributing factors: Pt variables contributing to increased readmission risk: 20 Most Recent BUN Result 9.7 First Resulted Calcium During Admission 7 Active Medication Orders 1 Previous ED Visit (6 mos.)? 1 Number of Previous ED Visits (6 mos.) 1 Insurance - Private Coverage 1 Discharge Disposition - Home TIME OF CARE: I spent a total of 35 minutes on the date of the service which included preparing to see the patient, [id number] patient care, completing clinical documentation, obtaining and/or reviewing separately obtained history, performing a medically appropriate examination, counseling and educating the patient/family/caregiver, ordering medications, tests, or procedures, communicating with other HCPs (not separately reported), independently interpreting results (not separately reported), communicating results to the patient/family/caregiver, care coordination (not separately reported), and time excludes procedure . SIGNATURE: Najma Harry APRN.CNP PATIENT NAME: Rajendra Hoffman DATE: May 19, 2024 TIME: 4:40 PM PAGER/CONTACT #: [phone] or call ext: [phone] This note was partially generated using [employer] voice recognition system. All attempts were made to correct phonetical errors, but some may still be present. Various portions of this note were pulled or copied from within the patient's EMR. ANES POSTPROC EVAL Observed: 05/19/2024 3:13 PM Status: COMPLETED [id number] Author: RAJENDRA MOCTEZUMA MD Service: Anesthesiology Author Type: Physician Type: Anesthesia Postprocedure Evaluation Filed: 05/19/2024 15:13 Note Text: POST ANESTHESIA EVALUATION NOTE : 1960 Procedure Summary Date: 05/19/24 Room / Location: [facility] Anesthesia Start: 1406 Anesthesia Stop: 1509 Procedure: COLONOSCOPY DIAGNOSTIC Diagnosis: Scheduled Providers: George Clements MD Responsible Provider: Rajendra Moctezuma MD Anesthesia Type: MAC ASA Status: 3 Anesthesia Type: MAC Last Vitals Vitals Value Taken Time BP 88/55 05/19/24 1508 Temp 36.8 ?C (98.2 ?F) 05/19/24 1508 Pulse 61 05/19/24 1508 Resp 14 05/19/24 1508 SpO2 100 % 05/19/24 1508 Post Anesthesia Patient Status Patient Evaluation: PACU. PACU/ICU Patient Condition: stable. Anticipated Disposition: phase 2 then home. Neurological Status: aware and responsive. Pulmonary Status: breathing comfortably on room air Airway Control: returned to baseline unsupported. Cardiovascular Status: stable. Pain Management: clinically adequate Postoperative Hydration: acceptable. Intraoperative Events: no significant anesthesia events Post Operative Nausea/Vomiting Status: no significant post operative nausea or vomiting Anesthesia Observations No Documentation SIGNATURE: Rajendra Moctezuma MD PATIENT NAME: Rajendra Hoffman DATE: May 19, 2024 TIME: 3:13 PM CSN: [id number] SURGICAL PATHOLOGY Collected: 05/19/2024 2:46 PM Sta tus: F Source: [facility] Order Comment: Specimen Type : TISSUE SPECIMEN Ordering Facility: [facility] Address: [address] [place] [address] TYPE CODE TESTS RESULT OUT OF RANGE REFERENCE UNITS PATHOLOGY [id number] CASE REPORT Result Comment: Surgical Pat hology Report Case: [id number] Authorizing Provider: George Clements MD Collected: 05/19/2024 02:46 PM Ordering Location: [facility] Received: 05/21/2024 10:52 AM Pathologist: Edmund Andrew MD Specimens: A) - Colon, Biopsy, Random B) - Colon, Splenic Flexure, Polyp C) - Colon, Sigmoid, Biopsy PATHOLOGY [id number] FINAL DIAGNOSIS Result Comment: A. Colon, ra ndom biopsies: - No pathologic abnormalities. B. Colon, splenic flexure, biopsy: - Tubular adenoma. C. Sigmoid colon, biopsy: - No pathologic abnormalities. OLOGY [id number] GROSS DESCRIPTION Result Comment: A. Colon, Bi opsy Received in formalin labeled colon biopsy random are multiple pieces of romero, soft tissue aggregating to 1.6 x 0.7 x 0.2 cm. Totally submitted in one cassette. B. Colon, Splenic Flexure, Polyp Received in formalin labeled colon splenic flexure polyp are multiple pieces of romero, soft tissue aggregating to 1.5 x 0.4 x 0.2 cm. Totally submitted in one cassette. C. Colon, Sigmoid, Biopsy Received in formalin labeled colon sigmoid biopsy are 2 pieces of romero-penny, soft tissue aggregating to 0.7 x 0.3 x 0.2 cm. Totally submitted in one cassette. Gross examination performed at [facility], [address] [place] [address] RSA May 21, 2024 12:16 PM PATHOLOGY CDX2 CLINICAL HISTORY Generalized abdominal pain, Clinically significant diarrhea of unexplained origin PATHOLOGY [facility] FINAL PERFORMING LAB Result Comment: Diagnostic i nterpretation performed at [facility], [address] [place] [address] CLIA# [id number] Reconciliation Clerk: Edmund Andrew M.D. Performed By: #### S #### [facility] CLIA [id number] [address] [place] [address] [place] PRE-OP Observed: 05/19/2024 1:59 PM Status: COMPLETED Source: [facility] HNO ID: [id number] Author: RAJENDRA MOCTEZUMA MD Service: Anesthesiology Author Type: Physician Type: Anesthesia Preprocedure Evaluation Filed: 05/19/2024 13:59 Note Text: ANESTHESIOLOGY DAY OF SURGERY NOTE : 1960 Procedure Information Date/Time: 05/19/24 1400 Scheduled providers: George Clements MD Procedure: COLONOSCOPY DIAGNOSTIC Location: [facility] Estimated body mass index is 15.5 kg/m? as calculated from the following: Height as of this encounter: 177.8 cm (5' 10). Weight as of this encounter: 49 kg (108 lb 0.4 oz). Most recent hematocrit and potassium results: Hematocrit 36.8 05/18/2024 Potassium 4.3 05/18/2024 Relevant Problems CARDIO (+) Atherosclerosis of superior mesenteric artery (HCC) (+) Chronic mesenteric ischemia (HCC) (+) Median arcuate ligament syndrome (HCC) (+) Mesenteric ischemia (HCC) GI (+) Gastric ulcer (+) Gastroesophageal reflux disease without esophagitis NEURO-PSYCH (+) History of cholangitis I - PHYSICAL EVALUATION AIRWAY Patient intubated: No. Tracheostomy tube not present Mallampati: II. TM distance: >3 FB. Neck ROM: full ROM without neurological symptoms. Mouth opening: adequate. Short neck: no. Thick neck: no II - ANESTHESIA PLAN ASA Score: 3 Anesthetic Plan: MAC Beta Judy Monitoring Plan Monitoring plan: standard ASA. Post Procedure Analgesic Plan Postoperative analgesic plan: parenteral or oral opioids. Informed Consent Anesthetic risks, benefits, alternatives, personnel and consent discussed: yes. Patient / Responsible Green Party agrees to proceed: yes Patient / Surrogate agrees to blood products: blood products not planned Vitals Value Taken Time BP 136/56 05/19/24 1340 Pulse 75 05/19/24 1340 Resp 10 05/19/24 1340 Temp 36.9 ?C (98.4 ?F) 05/19/24 1340 SpO2 100 % 05/19/24 1340 Facility-Administered Medications as of 05/19/2024 Medication Dose Route Frequency [COMPLETED] ondansetron (PF) 4 mg injection (ZOFRAN) 4 mg INTRAVENOUS ONCE [COMPLETED] HYDROmorphone (PF) 1 mg injection (DILAUDID) 1 mg INTRAVENOUS ONCE [COMPLETED] NaCl 0.9% 1,000 mL iv bolus 1,000 mL INTRAVENOUS ONCE [COMPLETED] HYDROmorphone 0.5 mg injection (DILAUDID) 0.5 mg INTRAVENOUS ONCE [COMPLETED] HYDROmorphone 0.5 mg injection (DILAUDID) 0.5 mg INTRAVENOUS ONCE NaCl 0.9% iv flush bag 20 mL INTRAVENOUS PRN NaCl 0.9% iv infusion 100 mL/hr INTRAVENOUS CONTINUOUS ondansetron 4 mg tab(s) (ZOFRAN) 4 mg ORAL q 6 H PRN Or ondansetron (PF) 4 mg injection (ZOFRAN) 4 mg INTRAVENOUS q 6 H PRN hyoscyamine sublingual 0.25 mg tab(s) (LEVSIN SL) 0.25 mg SUBLINGUAL TID promethazine 25 mg tab(s) (PHENERGAN) 25 mg ORAL q 6 H PRN HYDROmorphone (PF) 0.5 mg injection (DILAUDID) 0.5 mg INTRAVENOUS q 4 H PRN Outpatient Medications as of 05/19/2024 Medication Sig ondansetron (ZOFRAN) 4 mg tablet Take 1 tablet by mouth every 8 hours as needed for nausea/vomiting. acetaminophen 325 mg-caffeine 40 mg-butalbital 50 mg (FIORICET) per tablet Take 1 tablet by mouth every 4 hours as needed for headache. ondansetron orally disintegrating (ZOFRAN ODT) 8 mg disintegrating tablet pantoprazole DR (PROTONIX) 20 mg tablet Take 20 mg by mouth once daily. clopidogrel (PLAVIX) 75 mg tablet Take 75 mg by mouth once daily. rosuvastatin (CRESTOR) 10 mg tablet Take 1 tablet by mouth daily at bedtime. aspirin 81 mg chewable tablet Take 1 tablet by mouth once daily. hyoscyamine (LEVSIN) 0.125 mg tablet Take 1 tablet by mouth every 4 hours as needed for diarrhea (and abdominal pain). (Patient not taking: Reported on 05/18/2024) dicyclomine (BENTYL) 20 mg tablet Take 1 tablet by mouth three times a day as needed (abdominal pain). (Patient not taking: Reported on 05/18/2024) sucralfate (CARAFATE) 1 gram tablet Take 1 g by mouth as needed. I have interviewed and examined the patient. I have reviewed the medical record and/or the pre-anesthesia evaluation, pertinent labs, and test results. This contains updated information obtained within 48 hours of Surgery/Procedure. SIGNATURE: Rajendra Moctezuma MD PATIENT NAME: Rajendra Hoffman DATE: May 19, 2024 TIME: 1:59 PM CSN: [id number] COLONOSCOPY Observed: 05/19/2024 1:53 PM Status: F Source: [facility] Gastrointestinal Endoscopy Patient Name: Rajendra Hoffman Procedure Date: 05/19/2024 1:53 PM Date of : 1960 Admit Type: Inpatient Room: [place] [address] Gender: Male Note Status: Finalized Attending MD: George Clements MD, [id number] Procedure: Colonoscopy Indications: Generalized abdominal pain, Clinically significant diarrhea of unexplained origin Providers: George Clements MD Patient Profile: Last Colonoscopy: 1 year ago. Referring Physician: Tiffany Gunter (Referring ) Medicines: Monitored Anesthesia Care Complications: No immediate complications. Procedure: Pre-Anesthesia Assessment: - Prior to the procedure, a History and Physical was performed, and patient medications and allergies were reviewed. The patient's tolerance of previous anesthesia was also reviewed. The risks and benefits of the procedure and the sedation options and risks were discussed with the patient. All questions were answered, and informed consent was obtained. Prior Anticoagulants: The patient has taken Plavix (clopidogrel), last dose was 7 days prior to procedure. ASA Grade Assessment: III - A patient with severe systemic disease. After reviewing the risks and benefits, the patient was deemed in satisfactory condition to undergo the procedure. After I obtained informed consent, the scope was passed under direct vision. Throughout the procedure, the patient's blood pressure, pulse, and oxygen saturations were monitored continuously. The Colonoscope was introduced through the anus and advanced to the terminal ileum, with identification of the appendiceal orifice and IC valve. I was present and participated during the entire procedure, including non-tan portions, and during the administration and monitoring of Moderate Sedation. The Colonoscope was introduced through the and advanced to. I was present and participated during the entire procedure, including non-tan portions, and during the administration and monitoring of Moderate Sedation. The Endoscope was introduced through the and advanced to. I was present and participated during the entire procedure, including non-tan portions, and during the administration and monitoring of Moderate Sedation. The patient tolerated the procedure well. The colonoscopy was technically difficult and complex due to restricted mobility of the colon. Successful completion of the procedure was aided by withdrawing the scope and replacing with the pediatric colonoscope, then an adult gastroscope was used to advance thru the sigmoid colon. The terminal ileum, ileocecal valve, appendiceal orifice, and rectum were photographed. The quality of the bowel preparation was adequate to identify polyps greater than 5 mm in size. Scope Withdrawal Time: 0 hours 18 minutes 4 seconds Moderate Sedation: Exam was performed under monitored anesthesia care (MAC) Findings: The terminal ileum appeared normal. Multiple medium-mouthed and small-mouthed diverticula were found in the sigmoid colon. A 5 to 7 mm polyp was found in the splenic flexure. The polyp was sessile. The polyp was removed with a cold snare. Resection and retrieval were complete. Biopsies for histology were taken with a cold forceps from the right colon and left colon for evaluation of microscopic colitis. No additional abnormalities were found on retroflexion. A benign-appearing, intrinsic moderate stenosis measuring 2 cm (in length) x 1.5 cm (inner diameter) was found in the sigmoid colon and was traversed. This was likely related to diverticular dz and adhesions. 2 Areas of tattoo were seen in the sigmoid colon. The tattoo sites appeared normal. No polyp seen. One of theses areas was biopsied with a cold forceps for histology. Estimated Blood Loss: Estimated blood loss was minimal. Estimated blood loss was minimal. Impression: - The examined portion of the ileum was normal. - Diverticulosis in the sigmoid colon. - One 5 to 7 mm polyp at the splenic flexure, removed with a cold snare. Resected and retrieved. - Stricture in the sigmoid colon. - A tattoo was seen in the sigmoid colon. The tattoo site appeared normal. Biopsied. - Biopsies were taken with a cold forceps from the right colon and left colon for evaluation of microscopic colitis. Recommendation: - High fiber diet. - Await pathology results. - Repeat colonoscopy date to be determined after pending pathology results are reviewed for surveillance. - Return to GI clinic at appointment to be scheduled. - Patient has a contact number available for emergencies. The signs and symptoms of potential delayed complications were discussed with the patient. Return to normal activities tomorrow. Written discharge instructions were provided to the patient. - Continue present medications. - Resume Plavix (clopidogrel) at prior dose tomorrow. Procedure Code(s): --- Professional --- 56582, Colonoscopy, flexible; with removal of tumor(s), polyp(s), or other lesion(s) by snare technique 04158, 59, Colonoscopy, flexible; with biopsy, single or multiple --- Technical --- 02039, Colonoscopy, flexible; with removal of tumor(s), polyp(s), or other lesion(s) by snare technique 74555, 59, Colonoscopy, flexible; with biopsy, single or multiple Diagnosis Code(s): --- Professional --- D12.3, Benign neoplasm of transverse colon (hepatic flexure or splenic flexure) R10.84, Generalized abdominal pain R19.7, Diarrhea, unspecified K57.30, Diverticulosis of large intestine without perforation or abscess without bleeding --- Technical --- D12.3, Benign neoplasm of transverse colon (hepatic flexure or splenic flexure) R10.84, Generalized abdominal pain R19.7, Diarrhea, unspecified K57.30, Diverticulosis of large intestine without perforation or abscess without bleeding CPT copyright 2020 [employer]. All rights reserved. The codes documented in this report are preliminary and upon sample body builder review may be revised to meet current compliance requirements. Attending Participation: I personally performed the entire procedure. Scope In: 2:14:07 PM Scope Out: 3:02:26 PM MD George Matthew MD 05/19/2024 3:19:49 PM This report has been signed electronically by George Clements MD Number of Addenda: 0 Note Initiated On: 05/19/2024 1:53 PM NUTRITION Observed: 05/19/2024 10:01 AM Status: COMPLETED Source: [facility] HNO ID: [id number] Author: JOSIE KUMAR RD Service: Nutrition Therapy Author Type: Registered Dietitian Type: Nutrition Filed: 05/19/2024 15:03 Note Text: INITIAL ASSESSMENT SERVICE DATE: 05/19/2024 SERVICE TIME: 1240 Nutrition Assessment: Recommended Malnutrition Diagnosis: Unable to Identify Malnutrition at this time Nutrition Diagnosis: Problem: Underweight Related to: Inability to consume sufficient nutrients As evidenced by: Medical condition Care Plan: Follow for diet advancement to goal Monitor and Evaluation: Meet greater than 75% of estimated needs, Monitor bowel function, Monitor fluid/electrolyte balance, Monitor labs, I/Os, vital signs, weight HPI: 64 yr old male with h/o mesenteric ischemia and Chester-en-y admitted with c/o acute abd pain. Intake History: Nutrition Intake Prior to Admission: Greater than 75% estimated energy needs (great appetite, but has to eat small frequent meals) Lost significant wt after his Chester-en-y and unable to gain back. Dosing Weight: 49 kg (108 lb 0.4 oz) Dosing Weight Type: Admit weight Estimated kilocalorie needs: 1470-1715kcals Calorie Calculation Method: 30-35 kcals/kg Estimated protein needs (grams): 58-74gms Grams protein determined by: 1.2 - 1.5 g/kg Diet Orders (From admission, onward) Start Ordered 05/18/24 1730 DIET NPO START NOW Question Answer Comment NPO Restrictions EXCEPT MEDS NPO Restrictions EXCEPT ICE CHIPS 05/18/24 1726 Anthropometrics: Height: 177.8 cm (5' 10) Weight: 49 kg (108 lb 0.4 oz) Usual Weight: 61.2 kg (135 lb) Usual Weight Obtained From: Patient Body mass index is 15.5 kg/m?. Weight change percentage over time: minimal wt trends for review Weight Change: Unable to determine Physical Exam: Reason NFPE not performed: Unable to participate (leaving for endo) Potential micronutrient deficiency: Unable to determine at this time GI symptoms: Nausea and abd pain (acute onset) Functional Status: No Change Potential Signs of Inflammation: Tachycardia, Leukopenia, Chronic condition GERD/Arthritis MNT Billing: $ Initial Assessment: 1-15 minutes SIGNATURE: Josie Kumar RD PATIENT NAME: Rajendra Hoffman DATE: May 19, 2024 TIME: 10:02 AM CONSULT Observed: 05/19/2024 9:11 AM Status: COMPLETED Source: [facility] HNO ID: [id number] Author: TIFFANY GUNTER APRN.CNP Service: Gastroenterology Author Type: Nurse Practitioner Type: Consults Filed: 05/19/2024 10:30 Note Text: INITIAL CONSULT GASTROENTEROLOGY SERVICE DATE: 05/19/2024 SERVICE TIME: 0911 Am Consulting Service: Gastroenterology Chief Complaint: abd pain Opinion/advice regarding: abd pain Subjective HPI: This is a 64 year old male PMH mesenteric ischemia, GI hemorrhage, partial gastrectomy, neck pain, chronic abdominal pain, irritable bowel syndrome, gastric ulcer, duodenitis, GERD, nicotine use disorder, severe protein calorie mall nutrition scented to the emergency department after he was sent over from the endoscopy unit where he was supposed to have a colonoscopy with severe abdominal pain. In ED, CBC with a white blood cell count of 11.89, hemoglobin 11.8, hematocrit 36.8 CMP with sodium 135, CO2 18, BUN 20, creatinine 1.52, alkaline phos 173 UA positive for ketones, protein, RBCs 3-5 CT scan of abdomen and pelvis reveals: There is a celiac artery stent. The stent lumen is patent without significant narrowing. There is stenting of the SMA. There is intraluminal narrowing. Possible high-grade stenosis at the junction of the 2 stents. Cholecystectomy. Common bile duct dilatation up to 9 mm, nonspecific. In the emergency department he was given 3 doses of Dilaudid and IV fluid bolus of normal saline and Zofran 4 mg IV. Pt sen by vascular surgery and cleared.admitted for observation. Upon assessment today,pt resting in bed AANDO x 3. Pt reports abdominal pain resolved. No n/v. Of note pt was slated for OP colonoscopy yesterday for abd pain and thin stool with an elevated fecal calprotectin. Pt arrived to endo unit in severe abd pain and was subsequently sent to ED and colonoscopy was cancelled. GI consulted for abd pain. 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 SPINAL CORD STIM PERCT SCS ELCT 2021 stimulator in and removed FAMILY HISTORY Problem Relation Age of Onset Cancer Mother lung Cancer Maternal Grandmother lung Colon Cancer Father Cancer Maternal Grandfather throat Cancer Maternal Aunt bone Social History Tobacco Use Smoking status: Every Day Types: Cigarettes Smokeless tobacco: Never Tobacco comments: 10-15 per day Vaping Use Vaping status: Never Used Substance Use Topics Alcohol use: No Comment: very very seldom Drug use: No Comment: used to smoke [employer], 3 to 4 days per week MEDICATIONS: Prior to Admission Medications: ondansetron (ZOFRAN) 4 mg tabletTake 1 tablet by mouth every 8 hours as needed for nausea/vomiting.Disp: 12 tabletRfl: 1 acetaminophen 325 mg-caffeine 40 mg-butalbital 50 mg (FIORICET) per tabletTake 1 tablet by mouth every 4 hours as needed for headache.Disp: Rfl: ondansetron orally disintegrating (ZOFRAN ODT) 8 mg disintegrating tabletDisp: Rfl: pantoprazole DR (PROTONIX) 20 mg tabletTake 20 mg by mouth once daily.Disp: Rfl: clopidogrel (PLAVIX) 75 mg tabletTake 75 mg by mouth once daily.Disp: Rfl: rosuvastatin (CRESTOR) 10 mg tabletTake 1 tablet by mouth daily at bedtime.Disp: 30 tabletRfl: 2 aspirin 81 mg chewable tabletTake 1 tablet by mouth once daily.Disp: Rfl: 0 hyoscyamine (LEVSIN) 0.125 mg tabletTake 1 tablet by mouth every 4 hours as needed for diarrhea (and abdominal pain).Disp: 90 tabletRfl: 1 (Patient not taking: Reported on 05/18/2024) dicyclomine (BENTYL) 20 mg tabletTake 1 tablet by mouth three times a day as needed (abdominal pain).Disp: 90 tabletRfl: 0 (Patient not taking: Reported on 05/18/2024) sucralfate (CARAFATE) 1 gram tabletTake 1 g by mouth as needed.Disp: Rfl: Current Facility-Administered Medications Medication Dose Route Frequency NaCl 0.9% iv flush bag 20 mL INTRAVENOUS PRN NaCl 0.9% iv infusion 100 mL/hr INTRAVENOUS CONTINUOUS ondansetron 4 mg tab(s) (ZOFRAN) 4 mg ORAL q 6 H PRN Or ondansetron (PF) 4 mg injection (ZOFRAN) 4 mg INTRAVENOUS q 6 H PRN hyoscyamine sublingual 0.25 mg tab(s) (LEVSIN SL) 0.25 mg SUBLINGUAL TID promethazine 25 mg tab(s) (PHENERGAN) 25 mg ORAL q 6 H PRN HYDROmorphone (PF) 0.5 mg injection (DILAUDID) 0.5 mg INTRAVENOUS q 4 H PRN ALLERGIES Allergen Reactions Omeprazole Other: See Comments Severe Headaches Senna Unknown Bottom lip swelled. Stopped swelling when senna dc GI SPECIFIC REVIEW OF SYSTEMS: See HPI Objective PHYSICAL EXAM: BP 105/62 Pulse 72 Temp 37 ?C (98.6 ?F) (Temporal) Resp 18 Ht 177.8 cm (5' 10) Wt 49 kg (108 lb 0.4 oz) SpO2 100% BMI 15.50 kg/m? GENERAL- AAO x 3, no distress LUNGS: Clear to auscultation bilaterally CARDIAC: S1, S2 heard, no murmur appreciated ABDOMEN: Soft, non-tender without guarding or rigidity, normal bowel sounds DATA: Diagnostic Tests Reviewed for Today's Visit: Most recent labs WBC (k/uL) Date Value 05/18/2024 11.89 (H) RBC (m/uL) Date Value 05/18/2024 5.10 Hemoglobin (g/dL) Date Value 05/18/2024 11.8 (L) Hematocrit (%) Date Value 05/18/2024 36.8 (L) MCV (fL) Date Value 05/18/2024 72.2 (L) MCH (pg) Date Value 05/18/2024 23.1 (L) MCHC (g/dL) Date Value 05/18/2024 32.1 RDW-CV (%) Date Value 05/18/2024 19.0 (H) Platelet Count (k/uL) Date Value 03/04/2023 282 MPV (fL) Date Value 03/04/2023 12.5 Glucose (mg/dL) Date Value 05/18/2024 99 BUN (mg/dL) Date Value 05/18/2024 20 Creatinine (mg/dL) Date Value 05/18/2024 1.52 (H) Sodium (mmol/L) Date Value 05/18/2024 135 (L) Potassium (mmol/L) Date Value 05/18/2024 4.3 Chloride (mmol/L) Date Value 05/18/2024 98 CO2 (mmol/L) Date Value 05/18/2024 18 (L) Protein, Total (g/dL) Date Value 05/18/2024 7.4 Albumin (g/dL) Date Value 05/18/2024 4.4 Calcium, Total (mg/dL) Date Value 05/18/2024 9.7 Alkaline Phosphatase (U/L) Date Value 05/18/2024 173 (H) Bilirubin, Total (mg/dL) Date Value 05/18/2024 0.4 AST (U/L) Date Value 05/18/2024 21 ALT (U/L) Date Value 05/18/2024 12 Cholesterol, Total (mg/dL) Date Value 06/27/2017 163 Triglyceride (mg/dL) Date Value 02/11/2023 117 CTA 05/18 IMPRESSION: There is a celiac artery stent. The stent lumen is patent without significant narrowing. There is stenting of the SMA. There is intraluminal narrowing. Possible high-grade stenosis at the junction of the 2 stents. Cholecystectomy. Common bile duct dilatation up to 9 mm, nonspecific Impression/Recommendations Abdominal pain - with hx mesenteric ischemia. Pt also seen by GI OP for abd pain and thin stools- fecal calpro elevated 226 01/2024. Was slated or OP colon 05/18 where pt subsequently sent to ED with severe abdominal pain and colonoscopy cancelled. CTA above showing narrowing of junction SMA stents. CBD dilated likely in setting of reservoir effect s/p cholecystectomy. Seen by vasc surg and cleared - Pain management per primary team - NPO - Discussed with GI attending. Will plan for colonoscopy today for further evaluation GI attending: Dr. Clements After 4 pm and on weekends, please refer to [facility] for GI physician information systems analyst SIGNATURE: Tiffany Gunter APRN.CNP PATIENT NAME: Rajendra Hoffman DATE: May 19, 2024 TIME: 10:18 AM HISTORY PHYSICAL Observed: 05/18/2024 5:04 PM Status: COMPLETED Source: [facility] HNO ID: [id number] Author: NAJMA HARRY APRN.CNP Service: Hospital Medicine Author Type: Nurse Practitioner Type: H&P Filed: 05/18/2024 17:24 Note Text: RAPID OBSERVATION UNIT HISTORY AND PHYSICAL EXAM SERVICE DATE: 05/18/2024 SERVICE TIME: 5:05 pm Primary Care Physician: Richard Ramsey MD NIGHT AND WEEKEND COVERAGE: Unit ext: [phone] Pager [phone] Subjective CHIEF COMPLAINT: Lower abdominal pain HPI: Rajendra Hoffman is a 64 year old male with history of mesenteric ischemia, GI hemorrhage, partial gastrectomy, neck pain, chronic abdominal pain, irritable bowel syndrome, gastric ulcer, duodenitis, GERD, nicotine use disorder, severe protein calorie mall nutrition scented to the emergency department after he was sent over from the endoscopy unit where he was supposed to have a colonoscopy with severe abdominal pain. The patient states that shortly after starting his bowel prep last evening for his colonoscopy today he started experiencing worsening of his abdominal pain. He describes the pain as sharp, cramping and this morning he stated he even had dry heaves. ED COURSE: CBC with a white blood cell count of 11.89, hemoglobin 11.8, hematocrit 36.8 CMP with sodium 135, CO2 18, BUN 20, creatinine 1.52, alkaline phos 173 UA positive for ketones, protein, RBCs 3-5 CT scan of abdomen and pelvis reveals: There is a celiac artery stent. The stent lumen is patent without significant narrowing. There is stenting of the SMA. There is intraluminal narrowing. Possible high-grade stenosis at the junction of the 2 stents. Cholecystectomy. Common bile duct dilatation up to 9 mm, nonspecific. In the emergency department he was given 3 doses of Dilaudid and IV fluid bolus of normal saline and Zofran 4 mg IV It was then decided to have him admitted to the rapid observation unit for further evaluation and management. Patient denies associated fever, headache, lightheadedness, syncope, vision disturbances, aphasia, dysphasia, chest pain, palpitations, orthopnea, shortness of breath, wheezing, cough, nausea, vomiting, diarrhea, constipation, melena or urinary symptoms. I have reviewed, confirmed, and edited as necessary, the PFSH and ROS obtained by others. 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 SPINAL CORD STIM PERCT SCS ELCT 2021 stimulator in and removed FAMILY HISTORY Problem Relation Age of Onset Cancer Mother lung Cancer Maternal Grandmother lung Colon Cancer Father Cancer Maternal Grandfather throat Cancer Maternal Aunt bone Social History Tobacco Use Smoking status: Every Day Types: Cigarettes Smokeless tobacco: Never Tobacco comments: 10-15 per day Vaping Use Vaping status: Never Used Substance Use Topics Alcohol use: No Comment: very very seldom Drug use: No Comment: used to smoke [employer], 3 to 4 days per week MEDICATIONS: Reviewed ondansetron (ZOFRAN) 4 mg tablet, Take 1 tablet by mouth every 8 hours as needed for nausea/vomiting., Disp: 12 tablet, Rfl: 1 acetaminophen 325 mg-caffeine 40 mg-butalbital 50 mg (FIORICET) per tablet, Take 1 tablet by mouth every 4 hours as needed for headache., Disp: , Rfl: ondansetron orally disintegrating (ZOFRAN ODT) 8 mg disintegrating tablet, , Disp: , Rfl: pantoprazole DR (PROTONIX) 20 mg tablet, Take 20 mg by mouth once daily., Disp: , Rfl: clopidogrel (PLAVIX) 75 mg tablet, Take 75 mg by mouth once daily., Disp: , Rfl: rosuvastatin (CRESTOR) 10 mg tablet, Take 1 tablet by mouth daily at bedtime., Disp: 30 tablet, Rfl: 2 aspirin 81 mg chewable tablet, Take 1 tablet by mouth once daily., Disp: , Rfl: 0 hyoscyamine (LEVSIN) 0.125 mg tablet, Take 1 tablet by mouth every 4 hours as needed for diarrhea (and abdominal pain). (Patient not taking: Reported on 05/18/2024), Disp: 90 tablet, Rfl: 1, Not Taking dicyclomine (BENTYL) 20 mg tablet, Take 1 tablet by mouth three times a day as needed (abdominal pain). (Patient not taking: Reported on 05/18/2024), Disp: 90 tablet, Rfl: 0, Not Taking sucralfate (CARAFATE) 1 gram tablet, Take 1 g by mouth as needed., Disp: , Rfl: ALLERGIES Allergen Reactions Omeprazole Other: See Comments Severe Headaches Senna Unknown Bottom lip swelled. Stopped swelling when senna dc REVIEW OF SYSTEM: (Postive in bold red) Also refer to hpi GENERAL: Weight loss. Malaise. Fevers. Chills HEENT: Hearing loss.Tinnitus. Diplopia. Blurred vision. Nose bleed. Rhinitis. Rhinorrhea. Pharyngitis. NECK: Pain. Significant neck swelling. Lymphadenopathy. RESPIRATORY: Hemoptysis. Cough. Wheezing. Shortness of breath CARDIOVASCULAR: Chest pain. Orthopnea. Leg swelling. Hypertension. Palpitations GI: Abdominal pain. Nausea. Vomiting. Hematemesis. Constipation. Diarrhea. Melena. : Dysuria. Frequency. Urgency. Incontinence. Retention. MUSCULOSKELETAL: Arthralgia. Joint swelling. Back pain. Myalgia. SKIN: Lesions. Rashes. Pruritus. NEURO: Headaches. Syncope. Dizziness. Lightheadedness. Numbness. Seizures/tremors. PSYCH: Sleep disturbance. Mood disorder. Recent psychosocial stressors HEMATOLOGY/LYMPHOLOGY: Prolonged bleeding. Bruising easily or swollen nodes. ENDOCRINE: Cold intolerance. Heat intolerance. Polyuria. Polydipsia . Polyphagia. Goiter Objective PHYSICAL EXAM: BP 124/68 Pulse 79 Temp (Src) 98.5 (Oral) Resp 18 Ht 5' 10 (1.78m) Wt 108 lb 0.4 oz (49.0kg) SpO2 99% BMI 15.50 kg/(m2). O2 Therapy: Room Air Physical Exam Performed: GENERAL: Alert, guarding pain as he lays on his right side SKIN: Intact, warm, and dry HEAD: Normocephalic. Atraumatic. NECK: Supple, ROM intact. EENT: PERRL MMM LUNGS: Clear to auscultation CARDIAC: Regular rate AND rhythm, normal S1 and S2. No murmur, gallops or rubs. 2+radial and DPs bilaterally. ABDOMEN: Soft, flat, generalized tenderness, hypoactive bowel signs EXTREMITIES: Moving bilateral upper and lower extemities at baseline. NEURO: Alert and oriented x 3. Speech clear. Answering questions appropriately. No focal neurological deficits. PSYCH: Cooperative. Lines, Drains, and Airways Line Duration Peripheral 05/18/24 1015 [facility] Short Left Forearm 20 Gauge <1 day Peripheral 05/18/24 1016 [facility] Short Right Forearm 20 Gauge <1 day Reviewed lines and needs to be continued during admission, clinical team will communicate when appropriate to discontinue. DATA: Diagnostic tests reviewed for today's visit: Most recent laboratory and diagnotic results reviewed CBC: Recent Labs 05/18/24 1017 WBC 11.89* RBC 5.10 HB 11.8* HCT 36.8* MCV 72.2* MCH 23.1* CMP: Recent Labs 05/18/24 1017 NA 135* K 4.3 CHLOR 98 CO2 18* BUN 20 CREAT 1.52* GLUC 99 TPROT 7.4 CA 9.7 MG 2.0 TBILI 0.4 ALKPHOS 173* ALT 12 AST 21 ANION 19* Assessment/Plan Abdominal pain (POA: Yes) -Patient reports worsening abdominal pain as he was prepping overnight to have a colonoscopy this morning by Dr. Clements who then sent him to the emergency department for further evaluation -CBC with a white blood cell count of 11.89, hemoglobin 11.8, hematocrit 36.8 -CMP with sodium 135, CO2 18, BUN 20, creatinine 1.52, alkaline phos 173 -UA positive for ketones, protein, RBCs 3-5 -CT scan of abdomen and pelvis reveals: -There is a celiac artery stent. The stent lumen is patent without significant narrowing. -There is stenting of the SMA. There is intraluminal narrowing. Possible high-grade stenosis at the junction of the 2 stents. Cholecystectomy. Common bile duct dilatation up to 9 mm, nonspecific. -In the emergency department he was given 3 doses of Dilaudid and IV fluid bolus of normal saline and Zofran 4 mg IV Plan: -Every 4 hours vital signs -Hold home medications -GI consult -Dilaudid for pain -Zofran, Phenergan for nausea -Levsin for abdominal cramping -N.p.o. except ice chips Medication and Non-Pharmacologic VTE Prophylaxis/Anticoagulants 05/18/24 1700 activity - mobilize patient (fl,oh) VTE Prophylaxis: VTE prophylaxis appropriate Disposition: to be determined Plan of care discussed with: Patient and Nurse I spent a total of 58 minutes on the date of the service which included preparing to see the patient, [id number] patient care, completing clinical documentation, obtaining and/or reviewing separately obtained history, performing a medically appropriate examination, counseling and educating the patient/family/caregiver, ordering medications, tests, or procedures, communicating with other HCPs (not separately reported), independently interpreting results (not separately reported), communicating results to the patient/family/caregiver, care coordination (not separately reported), and time excludes procedure . SIGNATURE: Najma Harry APRN.CNP PATIENT NAME: Rajendra Hoffman DATE: May 18, 2024 TIME: 5:05 PM PAGER/CONTACT #: [phone] or [phone] This note was partially generated using [employer] voice recognition system. All attempts were made to correct phonetical errors, but some may still be present. Various portions of this note were pulled or copied from within the patient's EMR. ED NOTE Observed: 05/18/2024 4:19 PM Status: COMPLETED Source: [facility] HNO ID: [id number] Author: MARISA NAPOLES RN Service: ? Author Type: Registered Nurse Type: ED Notes Filed: 05/18/2024 16:19 Note Text: Up with magali ED NOTE Observed: 05/18/2024 2:03 PM Status: COMPLETED Source: [facility] HNO ID: [id number] Author: NIKOLAI MOURA RN Service: Emergency Medicine Author Type: Registered Nurse Type: ED Notes Filed: 05/18/2024 14:04 Note Text: Dr. Rick at bedside to speak with pt ED NOTE Observed: 05/18/2024 1:58 PM Status: COMPLETED Source: [facility] HNO ID: [id number] Author: NIKOLAI MOURA RN Service: Emergency Medicine Author Type: Registered Nurse Type: ED Notes Filed: 05/18/2024 13:59 Note Text: Pt requesting pain medication, MD notified. URINALYSIS COMPLETE PNL UR Collected: 05/18/2024 1:26 PM Status: F Source: [facility] Order Comment: Specimen Type : URINE SPECIMEN Ordering Facility: [facility] Address: [address] [place] [address] TYPE CODE TESTS RESULT OUT OF RANGE REFERENCE UNITS LAB 5778-6(LOINC) Color Ur Light Yellow yellow LAB 27344-5(LOINC) Clarity Spec Clear Clear LAB 5792-7(LOINC) Glucose Ur Strip-mCnc Negative Trace, Negative LAB 5770-3(LOINC) Bilirub Ur Ql Strip Negative Negative LAB 2514-8(LOINC) Ketones Ur Strip 1+ Abnormal Negative, Trace LAB 5811-5(LOINC) Sp Gr Ur Strip >1.040 High 1.005-1.030 LAB 5794-3(LOINC) Hgb Ur Ql Strip Negative Negative, Trace LAB 5803-2(LOINC) pH Ur Strip 5.5 5.0-8.0 LAB 5804-0(LOINC) Prot Ur Strip-mCnc 1+ Abnormal Trace, Negative LAB 5818-0(LOINC) Urobilinogen Ur Strip Normal Normal LAB 5802-4(LOINC) Nitrite Ur Ql Strip Negative Negative LAB 5799-2(LOINC) Leukocyte esterase Ur Ql Strip Negative Negative, 25 Evans/uL LAB 5821-4(LOINC) WBC #/area UrnS HPF 0-5 /HPF 0-5 /HPF LAB 24300-9(LOINC) RBC #/area UrnS HPF 3-5 /HPF Abnormal 0-3 /HPF Performed By: #### [id number] # ### [facility] CLIA [id number] [address] [place] CONSULT Observed: 05/18/2024 12:13 PM Status: COMPLETED Source: [facility] HNO ID: [id number] Author: ARELY CRUZ DO Service: General Surgery Author Type: Resident Type: Consults Filed: 05/24/2024 14:48 Note Text: Attestation signed by Arely Cruz DO at 05/24/2024 2:48 PM Attending Note I personally saw and examined the patient 05/18/24. I reviewed the resident's note. I agree with the resident's assessment and plan unless otherwise noted. 64 year old male with PMH of chronic mesenteric ischemia s/p celiac and SMA stenting on plavix. Patient presenting with abdominal pain. CTA demonstrating patent celiac and SMA stents with luminal narrowing of SMA stent. Patient afebrile , VSS without tachycardia, lactate normal. ABdominal exam benign. No concerns for acute on chronic mesenteric ischemic. CTA personally reviewed and there is mild intraluminal narrowing at overlap site of mid SMA stent. No significant stenosis that would be obstructing flow. No vascular intervention indicated. 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 Vascular surgery consulted for evaluation for acute on chronic mesenteric ischemia after after pt presented with episode of acute abd pain that started yesterday evening. Pt states that pain started following taking his bowel prep for a colonoscopy that was scheduled for today. Pt states that pain is constant, diffuse, and crampy. Pt states that he has experienced similar pain in the past, for which he was getting the colonoscopy for, but this episode is more severe. Pt states that pain is not similar to when he had mesenteric ischemia in the past. Pt also notes that he was seen by his vascular surgeon in [place] on 05/11 and had an mesenteric artery US that did not show any indications of acute mesenteric ischemia. Currently endorses nausea, no vomiting but did experience one episode this morning. States pain medication relieves pain, nothing makes it worse. Denies any blood in the stool, CP, SOB. 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 SPINAL CORD STIM PERCT SCS ELCT 2021 stimulator in and removed FAMILY HISTORY Problem Relation Age of Onset Cancer Mother lung Cancer Maternal Grandmother lung Colon Cancer Father Cancer Maternal Grandfather throat Cancer Maternal Aunt bone Social History Tobacco Use Smoking status: Every Day Types: Cigarettes Smokeless tobacco: Never Tobacco comments: 10-15 per day Vaping Use Vaping status: Never Used Substance Use Topics Alcohol use: No Comment: very very seldom Drug use: No Comment: used to smoke [employer], 3 to 4 days per week (Not in a hospital admission) Current Facility-Administered Medications Medication Dose Route Frequency iv contrast (radiology procedure) INTRAVENOUS DIRECTED PRN Allergies As of Date: 05/18/2024 Allergen Noted Reaction OMEPRAZOLE 05/26/2015 Other: See Comments SENNA 02/09/2023 Unknown Fully Assessed 05/18/2024 COMPLETE REVIEW OF SYSTEMS: GENERAL: No weight loss, malaise or fevers RESPIRATORY: See HPI CARDIOVASCULAR: See HPI Objective PHYSICAL EXAM: GENERAL: No distress, Alert NEURO: AANDOx3, CN II-XII grossly intact, mental status HEENT: normocephalic, atraumatic LUNGS: Unlabored breathing O2 Therapy: Room Air CARDIAC: Regular rate and rhythm as above ABDOMEN: Soft, tender to palpation in RUQ, epigastrium, and LUQ, non-distended, non-peritonitic BP 116/92 Pulse 74 Temp (Src) 98.2 (Oral) Resp 21 Ht 5' 10 (1.78m) Wt 100 lb (45.4kg) SpO2 95% BMI 14.35 kg/(m2). O2 Therapy: Room Air DATA: Labs: Recent Labs 05/18/24 1048 05/18/24 1017 NA -- 135* K -- 4.3 CHLOR -- 98 CO2 -- 18* BUN -- 20 CREAT -- 1.52* GLUC -- 99 ANION -- 19* CA -- 9.7 MG -- 2.0 ALB -- 4.4 AST -- 21 ALT -- 12 ALKPHOS -- 173* TBILI -- 0.4 WBC -- 11.89* HB -- 11.8* HCT -- 36.8* LACT 1.7 -- Diagnostic tests reviewed for today's visit: Most recent labs and imaging results. CTA ABD/PEL WO/W IVCON Final Result IMPRESSION: There is a celiac artery stent. The stent lumen is patent without significant narrowing. There is stenting of the SMA. There is intraluminal narrowing. Possible high-grade stenosis at the junction of the 2 stents. Cholecystectomy. Common bile duct dilatation up to 9 mm, nonspecific. 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 Vascular surgery consulted for evaluation for acute on chronic mesenteric ischemia. Plan: - Imaging was reviewed, no signs of restenosis of stents observed. Stents demonstrated to be patent with blood flow visualized distal to the stent. All labs non-concerning for any ongoing ischemia and pt HDS. No concern for acute mesenteric ischemia. No vascular surgery intervention indicated at this time. Would recommend continued workup of abd pain by ED and OP follow up with Dr. Cruz or with current vascular surgeon. - Discussed with attending Dr. Cruz Vascular AND Thoracic Surgery Service Pager: For questions or concerns Mon-Fri 6a-5p please page [phone]. After 5pm and on Weekends and Holidays, please page [phone] if in ICU or [phone] if on RNF. SIGNATURE: Kerry Mix DO PATIENT NAME: Rajendra Hoffman DATE: 05/18/2024 TIME: 12:16 PM Pager: [phone] ED NOTE Observed: 05/18/2024 11:55 AM Status: COMPLETED Source: [facility] HNO ID: [id number] Author: NIKOLAI MOURA, RN Service: Emergency Medicine Author Type: Registered Nurse Type: ED Notes Filed: 05/18/2024 11:56 Note Text: Surgery c/s at bedside to evaluate pt ED NOTE Observed: 05/18/2024 10:47 AM Status: COMPLETED Source: [facility] HNO ID: [id number] Author: NIKOLAI MOURA, RN Service: Emergency Medicine Author Type: Registered Nurse Type: ED Notes Filed: 05/18/2024 10:47 Note Text: POC lactic dropped off in RT window. RT notified. CTA ABD/PELV WO/W IVCON Observed: 2023 10:31 AM Status: F Source: [facility] * * *Final Report* * * DATE OF EXAM: May 18 2024 10:31AM [facility] [id number] - CTA ABD/PELV WO/W IVCON / PROCEDURE REASON: Mesenteric ischemia, acute * * * * Physician Interpretation * * * * EXAMINATION: CT ABDOMEN AND PELVIS WITH IV CONTRAST CLINICAL HISTORY: Mesenteric ischemia, acute, recent. The lumen is patent. No significant IntraStent narrowing. TECHNIQUE: CT angiogram of the abdomen and pelvis was performed using standard technique, scanning from just above the dome of the diaphragm to the symphysis pubis. Noncontrast, arterial phase and delayed phases performed. Post-processed 3D images (Maximum intensity Projection (MIP), Volume-rendered (VR)) were created, reviewed and archived. MQ: CTAP_3 Contrast: IV: 100 ml of Omnipaque 350 : ml of CT Radiation dose: Integrated Dose-length product (DLP) for this visit = 429 mGy*cm. CT Dose Reduction Employed: Automated exposure control(AEC) and iterative recon COMPARISON: CT abdomen pelvis 02/10/2023 RESULT: Liver: No mass. There is geographic hyperenhancing area in the arterial phase only in the left hepatic lobe, which likely represent vasculature Biliary: Cholecystectomy. The common bile duct measures 9 mm in diameter. Spleen: No mass. No splenomegaly. Pancreas: No mass or duct dilation. Adrenals: No mass. Kidneys: No mass, calculus or hydronephrosis. GI tract: Postsurgical changes from Chester-en-Y gastric bypass. No dilation or wall thickening. Lymph nodes: No abdominal or pelvic lymphadenopathy. Mesentery/Peritoneum: No ascites or mass. Retroperitoneum: No mass or fluid collection. Vasculature: - Abdominal aorta and iliac arteries: Atherosclerotic calcifications without dissection or aneurysm. - Celiac and SMA: There is a celiac artery stent. The stent lumen is patent without significant narrowing. There is stenting of the SMA. There is intraluminal narrowing. Possible high-grade stenosis at the junction of the 2 stents. The ROMARIO is overall patent - Portal venous system (SMV, splenic vein, portal vein and branches): Patent. - Hepatic veins: Patent. Pelvis: No mass, ascites or fluid collection. Bones/Soft Tissues: Degenerative changes. Lower thorax: Unremarkable. Localizer images: No additional findings. IMPRESSION: There is a celiac artery stent. The stent lumen is patent without significant narrowing. There is stenting of the SMA. There is intraluminal narrowing. Possible high-grade stenosis at the junction of the 2 stents. Cholecystectomy. Common bile duct dilatation up to 9 mm, nonspecific. Citrus Fruit Packer: [facility] Transcribe Date/Time: May 18 2024 11:07A Dictated by : ALIYAH OROSCO MD This examination was interpreted and the report reviewed and electronically signed by: ALIYAH OROSCO MD on May 18 2024 11:36AM EST [id number] ED PROV NOTE Observed: 05/18/2024 10:25 AM Status: COMPLETED Source: [facility] HNO ID: [id number] Author: MICHA RHODES MD Service: Emergency Medicine Author Type: Resident Type: ED Provider Notes Filed: 05/19/2024 09:39 Note Text: Attestation signed by Micha Rhodes MD at 05/19/2024 9:39 AM Attending Note I evaluated the patient and personally participated in the tan components. I agree with the resident's findings and plan as documented and have discussed the case and management of the patient's care with the resident. Signature: Micha Rhodes MD Date: 05/19/2024 Time: 9:38 AM ED Provider Note Patient Name: Rajendra Hoffman : 1960 SERVICE DATE: 05/18/24 History Patient presents with: Abdominal Pain: Patients doctor sent him to the ED, patient was supposed to have a colonoscopy today. Patient started having abdominal attack patient has has 1/3 of his stomach taken out, appendix and gull bladder. Patient has Nausea, no vomiting. HPI Patient is a 64-year-old male with past medical history significant for chronic mesenteric ischemia s/p balloon angioplasty of celiac and superior mesenteric artery, history of presenting to the emergency department for severe abdominal pain. Patient was scheduled to have a colonoscopy today, reports that he did his colonoscopy prep yesterday and last night started having intense abdominal pain. Patient reports that he did have an oxy at home which he took for the pain last night but it has been progressively worsening. Patient went in for his colonoscopy this morning and was sent to the emergency department for evaluation due to lack of pain control. Patient endorses that he is also feeling nauseous at bedside. Patient endorses that since he was scheduled for the colonoscopy, he has been off of his blood thinner for the last 5 days. 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 SPINAL CORD STIM PERCT SCS ELCT 2021 stimulator in and removed FAMILY HISTORY Problem Relation Age of Onset Cancer Mother lung Cancer Maternal Grandmother lung Colon Cancer Father Cancer Maternal Grandfather throat Cancer Maternal Aunt bone Social History Tobacco Use Smoking status: Every Day Types: Cigarettes Smokeless tobacco: Never Tobacco comments: 10-15 per day Vaping Use Vaping status: Never Used Substance and Sexual Activity Alcohol use: No Comment: very very seldom Drug use: No Comment: used to smoke [employer], 3 to 4 days per week Sexual activity: Not on file ALLERGIES Allergen Reactions Omeprazole Other: See Comments Severe Headaches Senna Unknown Bottom lip swelled. Stopped swelling when senna dc Review of Systems As mentioned in HPI Physical Exam Vitals [05/18/24 0929] BP Pulse Temp Temp src Resp SpO2 Weight Height (!) 150/114 (!) 102 36.8 ?C (98.2 ?F) Oral 18 98 % 45.4 kg (100 lb) 1.778 m (5' 10) Physical Exam Constitutional: Comments: Pain out of proportion, unable to sit still at bedside, grimacing 2/2 pain HENT: Head: Normocephalic and atraumatic. Cardiovascular: Rate and Rhythm: Tachycardia present. Heart sounds: Normal heart sounds. Pulmonary: Effort: No respiratory distress. Breath sounds: Normal breath sounds. No wheezing. Abdominal: General: There is no distension. Tenderness: There is generalized abdominal tenderness. There is guarding. Skin: Coloration: Skin is not cyanotic. Findings: No rash. Neurological: General: No focal deficit present. Mental Status: He is oriented to person, place, and time. Diagnostic Testing ED Labs Ordered and Reviewed - No data to display Procedures ED Course / Clinical Impression Clinical Impressions as of 05/18/24 1419 Abdominal pain, unspecified abdominal location MDM / Disposition / Plan MDM Patient is a 64-year-old male with past medical history significant for chronic mesenteric ischemia s/p balloon angioplasty of celiac and superior mesenteric artery, history of presenting to the emergency department for severe abdominal pain. Patient appears to be in severe pain at bedside at time of arrival. Patient was given Dilaudid for analgesia as well as Zofran for nausea relief. Otherwise, CT imaging was significant for the following findings: There is a celiac artery stent. The stent lumen is patent without significant narrowing. There is stenting of the SMA. There is intraluminal narrowing. Possible high-grade stenosis at the junction of the 2 stents. Cholecystectomy. Common bile duct dilatation up to 9 mm, nonspecific. Given the findings of intraluminal narrowing, vascular surgery was consulted. Per vascular surgery, they are not considering any surgical interventions at this time as there is still flow present in the lumen. Patient does have some common bile dilation, however this is likely secondary to reservoir effect postcholecystectomy. Patient does not have any accompanying elevated LFTs. At this time, the plan will be to admit patient to [facility] both for pain control as well as to have his colonoscopy completed. Patient is agreeable to plan. All questions and concerns were addressed to the best my ability and patient was admitted to [facility] for further management under the care of Dr. Julian. Jacqueline Rick DO Emergency Medicine Resident, PGY-2 [facility] - [facility] This note was created using [employer] dictation software. Every attempt was made to proofread, however you may find errors regardless of how insignificant they may be. They are purely unintentional and if there are any concerns regarding this dictation, please do not hesitate to call the dictating provider for clarification. SIGNATURE: Jacqueline Rick DO - JACQUELINE RICK 05/18/24 1442 MICHA RHODES 05/19/24 0939 ALLIED HEALTH Observed: 05/18/2024 10:24 AM Status: COMPLETED Source: [facility] HNO ID: [id number] Author: WALTER MORGAN RT(R) Service: Radiology Author Type: Technologist Type: Allied Health Filed: 05/18/2024 10:24 Note Text: Radiology Service Progress Note DATE OF SERVICE: May 18, 2024 TIME: 10:24 AM PATIENT IDENTITY VERIFICATION COMPLETED USING TWO (2) STANDARD IDENTIFIERS: Name and Date of confirmed by patient verbally and Name and Date of confirmed by identification band. FALL SCREENING: Has the patient had 2 falls in the last year or 1 fall with injury or currently using an Ambulatory Assistive Device (Walker, Cane, Wheelchair, Crutches, etc.)? Emergency Room Patient: Screened in ED PATIENT GENDER DATA: Male PATIENT RELEVANT IMPLANT DATA REVIEWED: Not Applicable PATIENT PRESENTS WITH AN IMPLANTABLE OR ATTACHED SECURITY ALARM TECHNICIAN: No ALLERGIES: Reviewed and unchanged CONTRAST ALLERGY: NO. EXAM: CT -CONTRAST INDUCED NEPHROPATHY RISK FACTORS: Patient age > 60 years CREATININE: Creatinine Date Value Ref Range Status 02/12/2023 0.66 (L) 0.73 - 1.22 mg/dL Final 02/11/2023 0.78 0.73 - 1.22 mg/dL Final 02/10/2023 0.81 0.73 - 1.22 mg/dL Final Estimated Glomerular Filtration Rate Date Value Ref Range Status 02/12/2023 107 >=60 mL/min/1.73m? Final Comment: Estimated Glomerular Filtration Rate (eGFR) is calculated using the 2020 CKD-EPI creatinine equation. This equation utilizes serum creatinine, sex, and age as parameters. The creatinine assay has traceable calibration to isotope dilution-mass spectrometry. Refer to KDIGO guidelines for clinical interpretation. In patients with unstable renal function, e.g. those with acute kidney injury, the eGFR may not accurately reflect actual GFR. eGFR- Date Value Ref Range Status 08/26/2018 >60 Final P.O.C.T. RESULTS: N/A May 18, 2024 TREATMENT: N/A PERIPHERAL IV DATA: Inpatient - refer to LDA documentation RADIOLOGY DEPARTMENT: CT; Exam(s) Completed: CTA Abdomen Pelvis SIGNATURE: RT Ruy(R) PATIENT NAME: Rajendra Hoffman DATE: May 18, 2024 TIME: 10:24 AM ED NOTE Observed: 05/18/2024 10:19 AM Status: COMPLETED Source: [facility] HNO ID: [id number] Author: NIKOLAI MOURA RN Service: Emergency Medicine Author Type: Registered Nurse Type: ED Notes Filed: 05/18/2024 10:19 Note Text: To CT at this time with this RN CBC W AUTO DIFF BLD Collected: 05/18/20 10:17 AM Status: F Source: [facility] Order Comment: Specimen Type : BLOOD SPECIMEN Ordering Facility: [facility] Address: [address] [place] [address] TYPE CODE TESTS RESULT OUT OF RANGE REFERENCE UNITS LAB 6690-2(LOINC) WBC # Bld Auto 11.89 High 3.70-11.00 k/uL Result Comment: Results chec ked and verified. No clot detected. LAB 789-8(LOINC) RBC # Bld Auto 5.10 4.20-6.00 m/ uL LAB 718-7(LOINC) Hgb Bld-mCnc 11.8 Low 13.0-17.0 g/dL LAB 4544-3(LOINC) Hct VFr Bld Auto 36.8 Low 39.0-51.0 % LAB 787-2(LOINC) MCV RBC Auto 72.2 Low 80.0-100.0 fL LAB 785-6(LOINC) MCH RBC Qn Auto 23.1 Low 26.0-34.0 p g LAB 786-4(LOINC) MCHC RBC Auto-mCnc 32.1 30.5-36.0 g/dL LAB 82933-7(LOINC) RDW RBC-Rto 19.0 High 11.5-15.0 % LAB 777-3(LOINC) Platelet # Bld Auto Result Comment: Platelets Cl umped Estimate Normal. LAB 24054-7(LOINC) PMV Bld Auto Result Comment: Unable to Re port. LAB 30223-1(LOINC) nRBC/100 WBC Bld-Rto 0.0 /100 WBC LAB 771-6(LOINC) nRBC # Bld Auto <0.01 <0.01 k/u L LAB 770-8(LOINC) Neutrophils/evans k NFr Bld Auto 85.0 % LAB 751-8(LOINC) Neutrophils # Bld Auto 10.11 High 1.45-7.50 k/uL LAB 736-9(LOINC) Lymphocytes/evans k NFr Bld Auto 8.0 % LAB 731-0(LOINC) Lymphocytes # Bld Auto 0.95 Low 1.00-4.00 k/uL LAB 5905-5(LOINC) Monocytes/leuk NFr Bld Auto 7.0 % LAB 742-7(LOINC) Monocytes # Bld Auto 0.83 <0.87 k/uL LAB 713-8(LOINC) Eosinophil/leuk NFr Bld Auto 0.0 % LAB 711-2(LOINC) Eosinophil # Bld Auto 0.00 <0.46 k/uL LAB 706-2(LOINC) Basophils/leuk NFr Bld Auto 0.0 % LAB 704-7(LOINC) Basophils # Bld Auto 0.00 <0.11 k/uL LAB 12573-6(LOINC) Platelet # Bld Est Adequate LAB 7796-6(LOINC) Platelet Clump Bld Ql Smear Present LAB 5908-9(LOINC) Giant Platelets Bld Ql Smear Occasional LAB RBCMORBEAKER1 RED CELL MORPH Reviewed: se e results of individual morphologies LAB ANISO ANISOCYTOSIS Present LAB 774-0(LOINC) Ovalocytes Bld Ql Smear Few LAB 06051-9(LOINC) Differential method Bld Manual Performed By: #### 31962-6 # ### [facility] CLIA [id number] [address] [place] [address] [place] COMP METAB 2000 PNL SERPL Collected: 10:17 AM Status: F Source: [facility] Order Comment: Specimen Type : BLOOD SPECIMEN Ordering Facility: [facility] Address: [address] [place] [address] TYPE CODE TESTS RESULT OUT OF RANGE REFERENCE UNITS LAB 2885-2(LOINC) Prot SerPl-mCnc 7.4 6.3-8.0 g/dL LAB 1751-7(LOINC) Albumin SerPl-mCnc 4.4 3.9-4.9 g/dL LAB 86485-0(LOINC) Calcium SerPl-mCnc 9.7 8.5-10.2 mg/dL LAB 1975-2(LOINC) Bilirub SerPl-mCnc 0.4 0.2-1.3 mg/dL LAB 6768-6(LOINC) ALP SerPl-cCnc 173 High 38-113 U/L LAB 46146-2(LOINC) AST SerPl w P-5'-P-cCnc 21 14-40 U/L LAB 1743-4(LOINC) ALT SerPl w P-5'-P-cCnc 12 10-54 U/L LAB 2345-7(LOINC) Glucose SerPl-mCnc 99 74-99 mg/dL Result Comment: The [place] [employer] Association (ADA) provides guidance for cutoff values for fasting glucose and random glucose. The ADA defines fasting as no caloric intake for at least 8 hours. Fasting plasma glucose results between 100 to 125 [...] Standards of Medical Care in Diabetes 2016, [place] [employer] Association. Diabetes Care. 2016.39(Suppl 1). LAB 3094-0(LOINC) BUN SerPl-mCnc 20 9-24 mg/ dL LAB 2160-0(LOINC) Creat SerPl-mCnc 1.52 High 0.73-1.22 mg/dL LAB 2951-2(LOINC) Sodium SerPl-sCnc 135 Low 136-144 mmol/L LAB 2823-3(LOINC) Potassium SerPl-sCnc 4.3 3.7-5.1 mmol/L LAB 2075-0(LOINC) Chloride SerPl-sCnc 98 98-107 mmol/L LAB 2028-9(LOINC) CO2 SerPl-sCnc 18 Low 22-30 mmo l/L LAB 1863-0(LOINC) Anion Gap4 SerPl-sCnc 19 High 8-15 mmol/L LAB 89209-8(LOINC) Creatinine + eGFR Pnl SerPlBld 51 Low >=60 mL/min/1. 73m??? Result Comment: Estimated Gl omerular Filtration Rate (eGFR) is calculated using the 2020 CKD-EPI creatinine equation. This equation utilizes serum creatinine, sex, and age as parameters. The creatinine assay has traceable calibration to isotope dilution-mass spectrometry. Refer to KDIGO guidelines for clinical interpretation. In patients with unstable renal function, e.g. those with acute kidney injury, the eGFR may not accurately reflect actual GFR. Performed By: #### 74391-0, 3040-3, 28884-7 #### [facility] CLIA [id number] [address] LIPASE SERPL-CCNC Collected: 10:17 AM Status: F Source: [facility] Order Comment: Specimen Type : BLOOD SPECIMEN Ordering Facility: [facility] Address: [address] [place] [address] TYPE CODE TESTS RESULT OUT OF RANGE REFERENCE UNITS LAB 3040-3(LOINC) Lipase SerPl-cCnc 12 Low 16-61 U/L Performed By: #### 30355-7, 3040-3, 87235-4 #### [facility] CLIA [id number] [address] MAGNESIUM SERPL-MCNC Collected: 05/18/2024 10:17 AM Status: F Source: [facility] Order Comment: Specimen Type : BLOOD SPECIMEN Ordering Facility: [facility] Address: [address] [place] [address] TYPE CODE TESTS RESULT OUT OF RANGE REFERENCE UNITS LAB 79080-7(LOINC) Magnesium SerPl-mCnc 2.0 1.7-2.3 mg/dL Performed By: #### 61772-2, 3040-3, 32211-6 #### [facility] CLIA [id number] [address] ECG COMPLETE Observed: 05/18/2024 10:17 AM Status: F Source: [facility] Ventricular Rate : 128 BPM Atrial Rate : 128 BPM P-R Interval : 132 ms QRS Duration : 70 ms Q-T Interval : 314 ms QTC Calculation(Bazett) : 458 ms Calculated P [place] : 87 degrees Calculated R [place] : -42 degrees Calculated T [place] : 83 degrees SINUS TACHYCARDIA WITH OCCASIONAL PREMATURE VENTRICULAR COMPLEXES BIATRIAL ENLARGEMENT LEFT AXIS DEVIATION PULMONARY DISEASE PATTERN ABNORMAL ECG WHEN COMPARED WITH ECG OF 10-Feb-2023 00:56, PREMATURE VENTRICULAR COMPLEXES ARE NOW PRESENT VENT. RATE HAS INCREASED by 54 bpm QRS AXIS SHIFTED LEFT POOR DATA QUALITY, INTERPRETATION MAY BE ADVERSELY AFFECTED Confirmed by MD HARPER AMY ([id number]) on 06/17/2024 1:53:37 AM NAME : RAJENDRA HOFFMAN PID : [id number] : 1960 Gender : Male Race : ORD : [id number] Procedure Date : May 18 2024 10:17:16 Edit Date : Jun 17 2024 01:53:40 Diagnosis: SINUS TACHYCARDIA WITH OCCASIONAL PREMATURE VENTRICULAR COMPLEXES BIATRIAL ENLARGEMENT LEFT AXIS DEVIATION PULMONARY DISEASE PATTERN ABNORMAL ECG WHEN COMPARED WITH ECG OF 10-Feb-2023 00:56, PREMATURE VENTRICULAR COMPLEXES ARE NOW PRESENT VENT. RATE HAS INCREASED by 54 bpm QRS AXIS SHIFTED LEFT POOR DATA QUALITY, INTERPRETATION MAY BE ADVERSELY AFFECTED Confirmed by MD HARPER AMY ([id number]) on 06/17/2024 1:53:37 AM Test Reason : Chest Pain Location : 4 : [facility] EM Overread By : MD HARPER AMY Edited By : MD HARPER AMY Referred By : , Acquired by : MELYSSA PAIZ ED NOTE Observed: 05/18/2024 10:15 AM Status: COMPLETED Source: [facility] HNO ID: [id number] Author: NIKOLAI MOURA RN Service: Emergency Medicine Author Type: Registered Nurse Type: ED Notes Filed: 05/18/2024 10:15 Note Text: Secondary RN at bedside to place second IV access. ED PROV NOTE Observed: 05/18/2024 10:09 AM Status: COMPLETED Source: [facility] HNO ID: [id number] Author: MICHA RHODES MD Service: Emergency Medicine Author Type: Physician Type: ED Provider Notes Filed: 05/19/2024 09:38 Note Text: Attending Note I evaluated the patient and personally participated in the tan components. I agree with the resident's findings and plan as documented and have discussed the case and management of the patient's care with the resident. 64-year-old male presents for evaluation concerns of abdominal pain has been worsening over the past day or so. The patient endorses nausea but no vomiting he has had the similar attacks in the past but could not find anything. He has a history of SMA stenosis and some chronic mesenteric ischemia in the past. He is scheduled for a colonoscopy he is also been off of his blood thinner for the past 5 days due to this. Patient is pain out of proportion on exam. Proceed with a CTA there does exist evidence of stenosis proximally we did consult vascular who stated there is no acute concern from their standpoint as there is distal flow. I had originally spoken with Dr. Clements who is requesting that the patient be admitted to the hobs unit to still consider potential colonoscopy. I suspect that the patient may be having attacks of mesenteric ischemia. MICHA Cardenas MD 05/19/24 0938 ED NOTE Observed: 05/18/2024 9:37 AM Status: COMPLETED Source: [facility] HNO ID: [id number] Author: EVANGELINA HICKMAN RN Service: ? Author Type: Registered Nurse Type: ED Notes Filed: 05/18/2024 09:37 Note Text: Bed: 12-ED Expected date: Expected time: Means of arrival: Comments: TRIAGE ED TRIAGE NOTE Observed: 05/18/2024 9:31 AM Status: COMPLETED Source: [facility] HNO ID: [id number] Author: DEVIN LATHAM APRN.CNP Service: Emergency Medicine Author Type: Nurse Practitioner Type: ED Triage Notes Filed: 05/18/2024 09:34 Note Text: ED INTAKE NOTE Patient Name: Rajendra Hoffman Service Date: May 18, 2024 As provider in triage my care is limited to quick triage assessment and initiation of any orders that may be able to be performed in the triage process. BRIEF HPI: The patient is a 64 year old male with chronic mesenteric ischemia and Chester-en-Y Gastric Bypass history who presents to the emergency department via private vehicle for evaluation of lower abdominal pain. The patient was meant to have a colonoscopy earlier this morning. This was re-escheduled due to his sudden onset of lower abdominal pain that started while he was being prepped for this procedure. He reports loose stools, however this was due to his bowel prep. BRIEF and FOCUSED EXAM in TRIAGE: Pale and ill appearing Cachetic Anxious and in pain In no respiratory distress Diffuse lower abdomen pain BP: 150/114 Temp: 36.8 ?C (98.2 ?F) Temp src: Oral Pulse: 102 Resp: 18 O2 Therapy: Room Air SpO2: 98 % INTAKE WORKUP: Orders Placed This Encounter COMP METABOLIC PANEL Standing Status: Standing Number of Occurrences: 1 MAGNESIUM BLD Standing Status: Standing Number of Occurrences: 1 LIPASE BLD Standing Status: Standing Number of Occurrences: 1 CBC + DIFF Standing Status: Standing Number of Occurrences: 1 Urinalysis w Microscopic, reflex Culture Standing Status: Standing Number of Occurrences: 1 LACTIC ACID,POC([place]) Standing Status: Standing Number of Occurrences: 1 INSERT IV ([place]) Standing Status: Standing Number of Occurrences: 1 Order Specific Question: Peripheral IV Site Answer: Either Arm Patient was seen initially in triage by myself. Initial history brief examination was performed. Initial work-up is ordered to develop basic plan of care, and patient be taken to the main emergency department for further evaluation and treatment as soon as possible. Patient will be seen by my clinician partner. All results from intake work-up will be evaluated and managed by subsequent provider. Please see subsequent provider notes for further details and disposition. SIGNATURE: Devin Pollard APRN NURSING PROG Observed: 05/18/2024 9:00 AM Status: COMPLETED Source: [facility] HNO ID: [id number] Author: VERITO SALDAÑA RN Service: Nursing Author Type: Registered Nurse Type: Nursing Progress Note Filed: 05/18/2024 09:17 Note Text: Patient arrived to Endoscopy window for his scheduled colonoscopy. Upon presentation patient is writhing in pain, nauseous, unable to stand due to abdominal pain. Dr Clements sent to assess patient in the [place] and recommended the patient go to the ER for acute evaluation. radioisotope technologist wheeled patient to the ER, Dr Clements called ER to give physician handoff. PROGRESS Observed: 05/11/2024 11:30 AM Status: COMPLETED Source: [facility] HNO ID: [id number] Author: SHANTA RICHARDSON, DO Service: ? Author Type: Physician Type: Progress Notes Filed: 06/09/2024 13:41 Note Text: [facility] [place] DEPARTMENT OF VASCULAR SURGERY OUTPATIENT VISIT DATE May 11, 2024 OUTPATIENT VISIT TYPE ESTABLISHED SERVICE DATE: 05/11/2024 SERVICE TIME: 11:30 AM PRIMARY CARE PHYSICIAN: Richard Ramsey MD HISTORY OF PRESENT ILLNESS: Mr. Hoffman is a 64 year old male who presents today for a vascular surgery follow-up visit for mesenteric stenosis s/p celiac and SMA stenting. He has been having low grade cramping which progresses to loose stools. He is following with GI at [facility] recently with plans for colonoscopy. 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 SPINAL CORD STIM PERCT SCS ELCT 2021 stimulator in and removed SOCIAL HISTORY Social History Tobacco Use Smoking status: Every Day Types: Cigarettes Smokeless tobacco: Never Tobacco comments: 10-15 per day Vaping Use Vaping status: Never Used Substance Use Topics Alcohol use: No Comment: very very seldom Drug use: No Comment: used to smoke [employer], 3 to 4 days per week MEDICATIONS: pantoprazole DR (PROTONIX) 20 mg tablet Take 20 mg by mouth once daily. clopidogrel (PLAVIX) 75 mg tablet Take 75 mg by mouth once daily. rosuvastatin (CRESTOR) 10 mg tablet Take 1 tablet by mouth daily at bedtime. aspirin 81 mg chewable tablet Take 1 tablet by mouth once daily. hyoscyamine (LEVSIN) 0.125 mg tablet Take 1 tablet by mouth every 4 hours as needed for diarrhea (and abdominal pain). dicyclomine (BENTYL) 20 mg tablet Take 1 tablet by mouth three times a day as needed (abdominal pain). ondansetron (ZOFRAN) 4 mg tablet Take 1 tablet by mouth every 8 hours as needed for nausea/vomiting. acetaminophen 325 mg-caffeine 40 mg-butalbital 50 mg (FIORICET) per tablet Take 1 tablet by mouth every 4 hours as needed for headache. ondansetron orally disintegrating (ZOFRAN ODT) 8 mg disintegrating tablet sucralfate (CARAFATE) 1 gram tablet Take 1 g by mouth as needed. ALLERGIES: ALLERGIES Allergen Reactions Omeprazole Other: See Comments Severe Headaches Senna Unknown Bottom lip swelled. Stopped swelling when senna dc PHYSICAL EXAM: BP 127/70 (BP Site: Left Arm, BP Position: Sitting, BP Cuff Size: Regular Adult) Pulse 71 SpO2 98% Gen- no distress Abd- non-distended Ext- no edema Diagnostic tests reviewed for today's visit: Most recent labs Most recent imaging Mesenteric Duplex Compared to prior study of 01/18/2022, No significant change. AORTA Aorta plaque noted without evidence of hemodynamically significant stenosis MESENTERIC VESSELS Celiac: 0-69% stenosis. No evidence of hemodynamically significant stenosis. Stent noted. Hepatic: Patent. Splenic: Patent. Superior mesenteric artery: 70-99% stenosis. Stent noted and appears patent. Elevated velocities distal stent. Inferior mesenteric artery: 70-99% stenosis. IMPRESSION: Mr. Hoffman is a 64 year old male with mesenteric artery stenosis s/p stenting . PLAN and RECOMMENDATIONS: Recommend follow up in one year with repeat imaging SIGNATURE: Shanta Richardson DO PATIENT NAME: Rajendra Hoffman DATE: May 11, 2024 TIME: 11:30 AM CNOV Observed: 05/11/2024 10:45 AM Status: COMPLETED Source: [facility] Office Visit (VASSWS) RAJENDRA HOFFMAN ([id number]) 1960 M Date Time Provider Department 05/11/24 10:45 AM SHANTA RICHARDSON VASSWS During your visit today, we recorded the following information about you: Pulse Blood pressure 71/minute 127/70 Shanta Richardson DO 06/09/2024 1:41 PM Signed [facility] [place] DEPARTMENT OF VASCULAR SURGERY OUTPATIENT VISIT DATE May 11, 2024 OUTPATIENT VISIT TYPE ESTABLISHED SERVICE DATE: 05/11/2024 SERVICE TIME: 11:30 AM PRIMARY CARE PHYSICIAN: Richard Ramsey MD HISTORY OF PRESENT ILLNESS: Mr. Hoffman is a 64 year old male who presents today for a vascular surgery follow-up visit for mesenteric stenosis s/p celiac and SMA stenting. He has been having low grade cramping which progresses to loose stools. He is following with GI at [facility] recently with plans for colonoscopy. 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 SPINAL CORD STIM PERCT SCS ELCT 2021 stimulator in and removed SOCIAL HISTORY Social History Tobacco Use Smoking status: Every Day Types: Cigarettes Smokeless tobacco: Never Tobacco comments: 10-15 per day Vaping Use Vaping status: Never Used Substance Use Topics Alcohol use: No Comment: very very seldom Drug use: No Comment: used to smoke [employer], 3 to 4 days per week MEDICATIONS: pantoprazole DR (PROTONIX) 20 mg tablet Take 20 mg by mouth once daily. clopidogrel (PLAVIX) 75 mg tablet Take 75 mg by mouth once daily. rosuvastatin (CRESTOR) 10 mg tablet Take 1 tablet by mouth daily at bedtime. aspirin 81 mg chewable tablet Take 1 tablet by mouth once daily. hyoscyamine (LEVSIN) 0.125 mg tablet Take 1 tablet by mouth every 4 hours as needed for diarrhea (and abdominal pain). dicyclomine (BENTYL) 20 mg tablet Take 1 tablet by mouth three times a day as needed (abdominal pain). ondansetron (ZOFRAN) 4 mg tablet Take 1 tablet by mouth every 8 hours as needed for nausea/vomiting. acetaminophen 325 mg-caffeine 40 mg-butalbital 50 mg (FIORICET) per tablet Take 1 tablet by mouth every 4 hours as needed for headache. ondansetron orally disintegrating (ZOFRAN ODT) 8 mg disintegrating tablet sucralfate (CARAFATE) 1 gram tablet Take 1 g by mouth as needed. ALLERGIES: ALLERGIES Allergen Reactions Omeprazole Other: See Comments Severe Headaches Senna Unknown Bottom lip swelled. Stopped swelling when senna dc PHYSICAL EXAM: BP 127/70 (BP Site: Left Arm, BP Position: Sitting, BP Cuff Size: Regular Adult) Pulse 71 SpO2 98% Gen- no distress Abd- non-distended Ext- no edema Diagnostic tests reviewed for today's visit: Most recent labs Most recent imaging Mesenteric Duplex Compared to prior study of 01/18/2022, No significant change. AORTA Aorta plaque noted without evidence of hemodynamically significant stenosis MESENTERIC VESSELS Celiac: 0-69% stenosis. No evidence of hemodynamically significant stenosis. Stent noted. Hepatic: Patent. Splenic: Patent. Superior mesenteric artery: 70-99% stenosis. Stent noted and appears patent. Elevated velocities distal stent. Inferior mesenteric artery: 70-99% stenosis. IMPRESSION: Mr. Hoffman is a 64 year old male with mesenteric artery stenosis s/p stenting . PLAN and RECOMMENDATIONS: Recommend follow up in one year with repeat imaging SIGNATURE: Shanta Richardson DO PATIENT NAME: Rajendra Hoffman DATE: May 11, 2024 TIME: 11:30 AM Allergies As of Date: 05/11/2024 Noted Allergy Reaction OMEPRAZOLE 05/26/2015 14 - Other: See Comments Comments: Severe Headaches SENNA 02/09/2023 16 - Unknown Comments: Bottom lip swelled. Stopped swelling when senna dc Date Reviewed: 05/11/2024 Reviewed by: Maria C Hutton OCCA - Fully Assessed Reason for Visit: Established Patient [175] Primary Visit Diagnosis:Mesenteric artery stenosis (HCC) [K55.1] Order(s): MESENTERIC ARTERY CMPLT VAS LAB [[id number]] Order #: [id number] FUTURE Prescriptions as of 06/09/2024 - hyoscyamine SR (LEVBID) 0.375 mg 12 hr tablet Take 1 tablet by mouth two times a day. - hyoscyamine (LEVSIN) 0.125 mg tablet Take 1 tablet by mouth every 4 hours as needed for diarrhea (and abdominal pain). - acetaminophen 325 mg-caffeine 40 mg-butalbital 50 mg (FIORICET) per tablet Take 1 tablet by mouth every 4 hours as needed for headache. - ondansetron orally disintegrating (ZOFRAN ODT) 8 mg disintegrating tablet - pantoprazole DR (PROTONIX) 20 mg tablet Take 20 mg by mouth once daily. - clopidogrel (PLAVIX) 75 mg tablet Take 75 mg by mouth once daily. - rosuvastatin (CRESTOR) 10 mg tablet Take 1 tablet by mouth daily at bedtime. - aspirin 81 mg chewable tablet Take 1 tablet by mouth once daily. 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] 03/27/2009 Median arcuate ligament syndrome (HCC) [I77.4] 09/16/2016 Epigastric pain [R10.13] 09/16/2016 Severe protein-calorie malnutrition (HCC) [E43] 09/16/2016 History of cholangitis [Z87.19] 09/16/2016 Abdominal pain [R10.9] 06/27/2017 Chronic mesenteric ischemia (HCC) [K55.1] 06/26/2017 Nicotine use disorder, F17.2 [F17.200] 06/27/2017 Polycythemia [D75.1] 08/24/2018 Gastroesophageal reflux disease without esophag*08/24/2018 Duodenitis [K29.80] 01/13/2023 Gastric ulcer [K25.9] 01/13/2023 Irritable bowel syndrome [K58.9] 01/13/2023 S/P arterial stent [Z95.9] 01/13/2023 Chronic abdominal pain [R10.9, G89.29] 01/13/2023 Atherosclerosis of superior mesenteric artery (*01/16/2023 Gastritis and gastroduodenitis [K29.70, K29.90] 01/17/2023 Acute post-operative pain [G89.18] 01/31/2023 Neck pain, chronic [M54.2, G89.29] 01/31/2023 Encounter for palliative care involving managem*01/31/2023 Encounter for pain management [R52] 01/31/2023 S/P partial gastrectomy [Z90.3] 02/10/2023 Degenerative disc disease, cervical [M50.30] 02/10/2023 Nausea and vomiting [R11.2] 02/10/2023 Gastrointestinal hemorrhage [K92.2] 02/11/2023 Mesenteric ischemia (HCC) [K55.9] 02/11/2023 Medications Discontinued During This Encounter Prescriptions - ondansetron (ZOFRAN) 4 mg tablet (Discontinued) Take 1 tablet by mouth every 8 hours as needed for nausea/vomiting. Disposition: Return in about 1 year (around 05/11/2025) for MESENTERIC US WITH FOLOW UP. Follow-up and Disposition History for Encounter Date Provider Department Center 05/11/2024 [id number] RICHARDSON [facility] Encounter Status:Closed by SHANTA RICHARDSON on 06/09/24 US MESENTERIC ARTERY CMPLT VAS LAB Observed: 05/11/2024 10:07 AM Status: F Source: [facility] Renal or Mesenteric Duplex Bilateral/Complete Date of service/time: 05/11/2024 10:07:31 AM Name: MR. RAJENDRA HOFFMAN Date of : 1960 Age: 64 years Gender: M Clinical Indication Celiac and superior mesenteric artery stents. TECHNIQUE -------- A visceral duplex ultrasound examination was performed, including grayscale imaging and color Doppler and spectral Doppler examination of the below mentioned arteries and veins. FINDINGS -------- Aorta proximal PSV: 56 cm/s. EDV: 13 cm/s. Aorta at renals PSV: 46 cm/s. EDV: 9 cm/s. Aorta mid PSV: 60 cm/s. EDV: 8 cm/s. Aorta distal PSV: 53 cm/s. EDV: 7 cm/s. Celiac origin PSV: 168 cm/s. EDV: 35 cm/s. Stent noted. Celiac proximal PSV: 161 cm/s. EDV: 44 cm/s. Stent noted. Celiac mid PSV: 187 cm/s. EDV: 47 cm/s. Celiac distal PSV: 174 cm/s. EDV: 46 cm/s. Hepatic proximal PSV: 77 cm/s. EDV: 24 cm/s. Splenic proximal PSV: 84 cm/s. EDV: 17 cm/s. Superior mesenteric artery origin PSV: 231 cm/s. EDV: 54 cm/s. Stent noted. Superior mesenteric artery proximal PSV: 366 cm/s. EDV: 76 cm/s. Stent noted. Superior mesenteric artery mid PSV: 144 cm/s. EDV: 25 cm/s. Superior mesenteric artery distal PSV: 118 cm/s. EDV: 13 cm/s. Inferior mesenteric artery origin PSV: 516 cm/s. EDV: 106 cm/s. Inferior mesenteric artery proximal PSV: 123 cm/s. EDV: 18 cm/s. Inferior mesenteric artery mid PSV: 86 cm/s. EDV: 11 cm/s. IMPRESSION Compared to prior study of 01/18/2022, No significant change. AORTA Aorta plaque noted without evidence of hemodynamically significant stenosis MESENTERIC VESSELS Celiac: 0-69% stenosis. No evidence of hemodynamically significant stenosis. Stent noted. Hepatic: Patent. Splenic: Patent. Superior mesenteric artery: 70-99% stenosis. Stent noted and appears patent. Elevated velocities distal stent. Inferior mesenteric artery: 70-99% stenosis. Technologist: Maria G Jolly RVT [facility] Ordering physician: SHANTA RICHARDSON Interpreting physician: TO Pizarro DO Final CC [employer] Medical Image : [id number] See Link below for Image PSA CANCER SCREENING ([id number]) Collected: 05/01/2024 8:28 AM Status: F Source: [facility] TYPE CODE TESTS RESULT OUT OF RANGE REFERENCE UNITS LAB PSA(LOINC) PSA 0.85 0.00 - 4.00 ng/ml Performed By: #### [id number] ## ## [facility],[address] [place] [address] CMP WITH EGFR Collected: 8:28 AM Status: F Source: [facility] TYPE CODE TESTS RESULT OUT OF RANGE REFERENCE UNITS LAB CMP with eGFR(LOINC) CMP with eGFR Result Comment: COMPREHENSIV E METABOLIC PANEL LAB SODIUM(LOINC) SODIUM 141 136 - 145 mmol/l LAB POTASSIUM(LOIN C) POTASSIUM 3.9 3.5 - 5.1 mmol/L LAB CHLORIDE(LOINC ) CHLORIDE 105 98 - 107 mmol/L LAB CO2(LOINC) CO2 28.8 21.0 - 32.0 mmol/L LAB GLUCOSE(LOINC) GLUCOSE 88 74 - 106 mg/dl LAB BUN(LOINC) BUN 13 7 - 18 mg/dl LAB CREATININE(OMAR NC) CREATININE 1.15 0.70 - 1.30 mg/dl LAB AST/SGOT(LOINC ) AST/SGOT 22 15 - 37 U/L LAB ALK PHOS(LOINC) ALK PHOS 167 High 46 - 116 U/L LAB CALCIUM(LOINC) CALCIUM 9.3 8.5 - 10.1 mg/dl LAB TOTAL PROTEIN(LOINC) TOTAL PROTEIN 7.8 6.4 - 8.2 g/dl LAB ALBUMIN(LOINC) ALBUMIN 3.9 3.4 - 5.0 g/dL LAB GLOBULIN(LOINC ) GLOBULIN 3.9 High 1.5 - 3.8 G/DL LAB A/G RATIO(LOINC) A/G RATIO 1.0 0.9 - 1.6 LAB TOTAL BILI(LOINC) TOTAL BILI 0.4 0.2 - 1.0 mg/dl LAB B/C RATIO(LOINC) B/C RATIO 11 0 - 30 ratio LAB ALT/SGPT(LOINC ) ALT/SGPT 20 16 - 63 U/L LAB ANION GAP(LOINC) ANION GAP 11 10 - 20 mmol/L LAB AGE(LOINC) AGE 64 years LAB eGFR(LOINC) eGFR >60 60 - 999 ML/MINUT E LAB eGFR(AA)(LOINC ) eGFR(AA) >60 60 - 999 ML/MINUT E Result Comment: ACCORDING TO THE NATIONAL KIDNEY DISEASE EDUCATION PROGRAM(NKDE), A NORMAL eGFR IS A VALUE GREATER THAN OR EQUAL TO 60 ML/MIN/1.73 SQ METERS. CHRONIC KIDNEY DISEASE: <60mL/MIN/1.73 SQ METERS KIDNEY FAILURE: <15mL/MIN/1.73 SQ METERS THIS TEST SHOULD ONLY BE USED FOR PATIENTS 18 YEARS OF AGE AND OLDER. Performed By: #### [id number] ## ## [facility] [place] [address] LIPID PROFILE Collected: 05/01/2024 8:28 AM Status: F Source: [facility] TYPE CODE TESTS RESULT OUT OF RANGE REFERENCE UNITS LAB LIPID PROFILE(LOINC) LIPID PROFILE Result Comment: LIPID PROFIL E LAB TRIGLYCERIDE(OMAR NC) TRIGLYCERIDE 53 0 - 150 mg/dl LAB CHOLESTEROL(LOIN C) CHOLESTEROL 135 0 - 240 mg/dl LAB HDL(LOINC) HDL 62 High 40 - 60 mg/dl LAB CHOL/HDL(LOINC) CHOL/HDL 2.2 0.0 - 5.0 LAB LDL(LOINC) LDL 62 0 - 129 mg/dl Performed By: #### [id number] ## ## [facility],[address] [place] [address] HAND RT MIN 3 VIEWS Observed: 04/26/2024 11:45 AM Status: F Source: [place] [address] Patient: RAJENDRA HOFFMAN Phone#: : 1960 Age: 64 Gender: M Pt. Type: Out Account: [id number] Location: [facility] Ordering: JOSE SAHA Exam Date: 04/26/2024/9:44 Family Phys: RICHARD RAMSEY Charge Code: 061267 Physician: [place] Order #: [id number] Dose#: PROCEDURE: X-RAY HAND RT COMPLETE MIN 3 VIEWS COMPARISON: None. INDICATIONS: Hand injury. FINDINGS: BONES: Normal. No significant arthropathy or acute abnormality. SOFT TISSUES: Negative. No visible soft tissue swelling. EFFUSION: None visible. OTHER: Negative. CONCLUSION: No acute disease. Dictated by: Tri Theodore MD on 04/26/2024 at 11:45 Approved by: Tri Theodore MD on 04/26/2024 at 11:45 CNPN Observed: 03/31/2024 12:00 AM Status: COMPLETED Source: [facility] Telephone (AGGASTACC) HOFFMANRAJENDRA LITTLEJOHN ([id number]) 1960 M Date Time Provider Department 03/31/24 GEORGE CLEMENTS During your visit today, we recorded the following information about you: Coral Sandoval MA 03/31/2024 9:47 AM Signed Received a call from Endo at [place] per Anesthesia pt needs scoped in [place] also said needs pre testing, and should see Vascular Srg has Infererior/superior artery stenosis 70-99%, said it did not look like pt followed up with Vascular , should scope be postponed or is it okay to reschedule him in [place] LELIA Aguilar Amy M, MA 04/07/2024 11:45 AM Signed Patient contacted office for vascular surgery to review CT scan report from [facility] on 12/30/2023 that is scanned into the chart for clearance to proceed with upcoming colonoscopy. He is having a lot of pain and does not want to cancel his colonoscopy. Patient last saw Dr. Richardson 01/09/2021. Explained to the patient since he has not seen Dr. Richardson recently she may not give that clearance. He verbalized understanding. Patient can be reached back at [phone]. Yvonne Lui MA 04/07/2024 3:28 PM Signed Shanta Richardson, DO You; Coral Sandoval MA; [facility] Clinical Pool3 hours ago (12:02 PM) In reviewing his chart, he is cleared for colonoscopy. I do recommend a follow up with vascular surgery with mesenteric duplex in the near future Thank you Amber José, JERILYN 04/08/2024 3:27 PM Signed Called patient, is scheduled for US and appt on 05/11/24. Allergies As of Date: 03/31/2024 Noted Allergy Reaction OMEPRAZOLE 05/26/2015 14 - Other: See Comments Comments: Severe Headaches SENNA 02/09/2023 16 - Unknown Comments: Bottom lip swelled. Stopped swelling when senna dc Date Reviewed: 01/15/2024 Reviewed by: George Clements MD - Fully Assessed Reason for Visit: Procedure [88] Prescriptions as of 06/17/2024 - hyoscyamine SR (LEVBID) 0.375 mg 12 hr tablet Take 1 tablet by mouth two times a day. - hyoscyamine (LEVSIN) 0.125 mg tablet Take 1 tablet by mouth every 4 hours as needed for diarrhea (and abdominal pain). - acetaminophen 325 mg-caffeine 40 mg-butalbital 50 mg (FIORICET) per tablet Take 1 tablet by mouth every 4 hours as needed for headache. - ondansetron orally disintegrating (ZOFRAN ODT) 8 mg disintegrating tablet - pantoprazole DR (PROTONIX) 20 mg tablet Take 20 mg by mouth once daily. - clopidogrel (PLAVIX) 75 mg tablet Take 75 mg by mouth once daily. - rosuvastatin (CRESTOR) 10 mg tablet Take 1 tablet by mouth daily at bedtime. - aspirin 81 mg chewable tablet Take 1 tablet by mouth once daily. 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] 03/27/2009 Median arcuate ligament syndrome (HCC) [I77.4] 09/16/2016 Epigastric pain [R10.13] 09/16/2016 Severe protein-calorie malnutrition (HCC) [E43] 09/16/2016 History of cholangitis [Z87.19] 09/16/2016 Abdominal pain [R10.9] 06/27/2017 Chronic mesenteric ischemia (HCC) [K55.1] 06/26/2017 Nicotine use disorder, F17.2 [F17.200] 06/27/2017 Polycythemia [D75.1] 08/24/2018 Gastroesophageal reflux disease without esophag*08/24/2018 Duodenitis [K29.80] 01/13/2023 Gastric ulcer [K25.9] 01/13/2023 Irritable bowel syndrome [K58.9] 01/13/2023 S/P arterial stent [Z95.9] 01/13/2023 Chronic abdominal pain [R10.9, G89.29] 01/13/2023 Atherosclerosis of superior mesenteric artery (*01/16/2023 Gastritis and gastroduodenitis [K29.70, K29.90] 01/17/2023 Acute post-operative pain [G89.18] 01/31/2023 Neck pain, chronic [M54.2, G89.29] 01/31/2023 Encounter for palliative care involving managem*01/31/2023 Encounter for pain management [R52] 01/31/2023 S/P partial gastrectomy [Z90.3] 02/10/2023 Degenerative disc disease, cervical [M50.30] 02/10/2023 Nausea and vomiting [R11.2] 02/10/2023 Gastrointestinal hemorrhage [K92.2] 02/11/2023 Mesenteric ischemia (HCC) [K55.9] 02/11/2023 Encounter Status:Closed by JENIFER IRIZARRY on 06/17/24 ALLERGIES DATE TYPE / CODE NAME / CODE REACTION SEVERITY SOURCE 02/09/2023 DRUG INGREDI/4195 84607(SNOMED CT) SENNA UNKNOWN [facility] 05/26/2015 DRUG INGREDI/4195 88033(SNOMED CT) OMEPRAZOLE OTHER: SEE C High [facility] Drug Allergy/4160 09923(SNOMED CT) OMEPRAZOLE/1179083 3(RXNORM) Moderate (Severity Modifier) (Qualifier Value) [facility] ENCOUNTERS ADMIT/DISCHARGE ACCOUNT NUMBER ADMITTING ENCOUNTER CLASS LOCATION SOURCE 03/20/2025/03/20/20 25 [id number] PAOLA THOMPSON MD Emergency BuildinR oom: ERBed: 1 [facility] 03/04/2025/03/04/20 [id number] 01/24/2025/01/25/20 25 [id number] REECE SANDERS Emergency BuildinR oom: ERBed: 2 [facility] 01/05/2025/01/06/20 25 [id number] JESUS CROFT Ambulatory [facility] HospitalBuild ing:PMRoom: [id number]: PM-07 [facility] 12/06/2024/12/07/19 25 [id number] [facility] 12/03/2024/12/04/19 25 [id number] Ambulatory [facility] HospitalBuild ing:NEMESIO [facility] 10/29/2024/10/30/19 [id number] ARELY CRUZ Ambulatory [place] [facility]:AKORRoom: POOLBed: 16 [facility] 10/29/2024/10/30/19 25 [id number] Ambulatory [facility] HospitalBuild ing:WOL2 [facility] 10/26/2024/10/27/19 25 [id number] Ambulatory [facility] HospitalBuild ing:WSVS [facility] 10/26/2024/10/27/19 25 [id number] Ambulatory [facility] HospitalBuild ing:WOVL [facility] 10/06/2024/10/07/19 [id number] Ambulatory [facility] HospitalBuild ing:NEMESIO [facility] 08/31/2024/09/01/19 25 [id number] Ambulatory [place] [facility]Buildi ng:AGGENS5 [facility] 08/11/2024/08/11/19 25 [id number] Inpatient Encounter [place] [facility] 08/10/2024/08/11/19 25 [id number] TAO MEDEIROS Inpatient Encounter [place] GeneralBuildi nRoom: 5120Bed: 01 [facility] 08/02/2024/08/02/19 25 [id number] Ambulatory [facility] HospitalBuild ing:WOL2 [facility] 07/28/2024/07/28/19 25 [id number] Ambulatory [place] [facility]:AGGENS5 [facility] 06/03/2024/06/03/20 24 [id number] Ambulatory [place] [facility]:AGGASTN [facility] 05/19/2024/05/19/20 24 [id number] Ambulatory [place] [facility] 05/18/2024 [id number] Emergency [place] [facility]Build[facility] ng:AKEDRoom: EMBed: 12 [facility] 05/18/2024 [id number] [facility] 05/11/2024/05/11/20 24 [id number] Ambulatory [facility] HospitalBuild ing:WSVS [facility] 05/11/2024/05/11/20 24 [id number] [facility] 05/01/2024/05/01/20 24 [id number] RICHARD RAMSEY Ambulatory Building:Unkn own [facility] 04/26/2024/04/26/20 24 [id number] JOSE SAHA Ambulatory Building:Unkn own [facility] 04/16/2024 [id number] RICHARD RAMSEY Ambulatory Building:Unk n own [facility] PAYERS ENCOUNTER GUARANTOR PAYER SUBSCRIBER SOURCE 03/20/2025 RAJENDRA HOLMAN: [id number], [place] [phone]: (HP) Primary Insurance:[facility] OUTPATIENTPolicy Number: [id number] Date:Plan Name:M3 RAJENDRA Paredes [place]: [id number] [id number] [facility] [address] [phone] [facility] 03/04/2025 Primary Insuranc e:MMO SUPERMED PPOPolicy Number: [id number] Date:9577-07-85Toop Name:B RAJENDRA HOLMAN: [id number] [phone] [facility] [address] [address] [facility] 01/24/2025 RAJENDRA HOLMAN: [id number] [phone]: (HP) Primary Insurance:[facility] OUTPATIENTPoly Number: [id number] Date:Plan Name:M3 RAJENDRA HOLMAN: [id number] [address] [facility] [address] [phone] [facility] 01/05/2025 Primary Insuranc e:MMO SUPERMED PPOPolicy Number: [id number] Date:1314-52-44Bdxq Name:Terell HOLMAN: [id number] [address] [facility] [address] [place] [address] [facility] 12/06/2024 Primary Insuranc e:MMO SUPERMED PPOPolicy Number: [id number] Date:1217-16-87Dtxi Name:Terell HOLMAN: [id number] [phone] [facility] [address] [place] [address] [facility] 12/03/2024 Primary Insuranc e:MMO SUPERMED PPOPolicy Number: [id number] Date:7426-27-08Cxsg Name:Terell HOLMAN: [id number] [phone] [facility] [address] [place] [address] [facility] 10/29/2024 Primary Insuranc e:MMO SUPERMED PPOPolicy Number: [id number] Date:7299-95-46Lgtu Name:Terell HOLMAN: [id number] [address] [facility] [address] [place] [address] [facility] 10/29/2024 Primary Insuranc e:MMO SUPERMED PPOPolicy Number: [id number] Date:4716-52-31Kris Name:Terell HOLMAN: [id number] [address] [facility] [address] [place] [address] [facility] 10/26/2024 Primary Insuranc e:MMO SUPERMED PPOPolicy Number: [id number] Date:3784-58-05Fpmc Name:Terell HOLMAN: [id number] [address] [facility] [address] [place] [address] [facility] 10/26/2024 Primary Insuranc e:MMO SUPERMED PPOPolicy Number: [id number] Date:5829-69-77Obbi Name:Terell HOLMAN: [id number] [phone] [facility] [address], [place] [address] [facility] 10/06/2024 Primary Insuranc e:MMO SUPERMED PPOPolicy Number: [id number] Date:2132-65-95Nhib Name:Terell HOLMAN: [id number] [phone] [facility] [address] [place] [address] [facility] 08/31/2024 Primary Insuranc e:MMO SUPERMED PPOPolicy Number: [id number] Date:7599-77-37Gzxs Name:Terell HOLMAN: [id number] [phone] [facility] [address] [place] [address] [facility] 08/11/2024 Primary Insuranc e:MMO SUPERMED PPOPolicy Number: [id number] Date:3930-49-24Otbe Name:Terell GAMINGB: [id number] [phone] [facility] [address] [place] [address] [facility] 08/10/2024 Primary Insuranc e:MMO SUPERMED PPOPolicy Number: [id number] Date:8350-79-64Svdo Name:Terell GAMINGB: [id number] [phone] [facility] [address] [place] [address] [facility] 08/02/2024 Primary Insuranc e:MMO SUPERMED PPOPolicy Number: [id number] Date:4627-35-22Rewy Name:Terell HOLMAN: [id number] [address] [facility] [address] [place] [address] [facility] 07/28/2024 Primary Insuranc e:MMO SUPERMED PPOPolicy Number: [id number] Date:0143-13-09Fgxi Name:Terell HOLMAN: [id number] [address] [facility] [address], [place] [address] [facility] 06/03/2024 Primary Insuranc e:MMO SUPERMED PPOPolicy Number: [id number] Date:6730-71-94Zwab Name:Terell Paredes [place]: [id number] [address] [facility] [address], [place] [address] [facility] 05/19/2024 Primary Insuranc e:MMO SUPERMED PPOPolicy Number: [id number] Date:0460-11-63Wddi Name:Terell DREW Reggie HOLMAN: [id number] [address] [facility] [address] [place] [address] [facility] 05/18/2024 Primary Insuranc e:MMO SUPERMED PPOPolicy Number: [id number] Date:9366-23-00Bony Name:Terell RAJENDRA HOLMAN: [id number] [phone] [facility] [address] [place] [address] [facility] 05/18/2024 Primary Insuranc e:MMO SUPERMED PPOPolicy Number: [id number] Date:8350-68-82Fvxx Name:Terell DREW Reggie HOLMAN: [id number] [phone] [facility] [address] [place] [address] [facility] 05/11/2024 Primary Insuranc e:MMO SUPERMED PPOPolicy Number: [id number] Date:3453-25-63Sfdq Name:Terell RAJENDRA HOLMAN: [id number] [address] [facility] [address], [place] [address] [facility] 05/11/2024 Primary Insuranc e:MMO SUPERMED PPOPolicy Number: [id number] Date:5270-68-47Qisj Name:Terell DREW Reggie HOLMAN: [id number] [address] [facility] [address] [place] [address] [facility] 05/01/2024 RAJENDRA HOLMAN: [id number] [address] [phone]: () Primary Insurance:[facility] OUTPATIENTPolicy Number: [id number] Date:Plan Name:M3 RAJENDRA GAMINGB: [id number] [phone] [facility] [address] [phone] [facility] 04/26/2024 RAJENDRA GAMINGB: [id number] [phone]: () Primary Insurance:[facility] OUTPATIENTPolicy Number: [id number] Date:Plan Name:M3 RAJENDRA GAMINGB: [id number] [id number] [phone] [facility] 04/16/2024 RAJENDRA GAMINGB: [id number] [phone]: () Primary Insurance:[facility] OUTPATIENTPolicy Number: [id number] Date:Plan Name:M3 RAJENDRA GAMINGB: [id number] [id number], [place] [phone] [facility]
[2025-03-22 10:38] VITALS: BP 145/69; PULSE 68; RESP 14; TEMP 36.8; O2SAT 98; BMI 14.4
--- NOTE | 2025-03-22 11:02 | ED.VIS.GI ---
HPI HPI - GI History of Present Illness Chief Complaint: Abd Pain Informant: patient Abdominal Pain/Flank Pain Onset: Days Context: Gradual Onset Timing: Continuous Quality: Sharp and Stabbing Location: Diffuse Current Severity: Moderate Maximum Severity: Moderate Worsened by: Nothing Relieved by: Nothing Nausea/Vomiting/Emesis GI Symptom: Negative for Nausea or Vomiting Diarrhea/Melena/Hematochezia GI Symptom: Negative for Diarrhea, Melena or Hematochezia Associated Symptoms Associated Symptoms: Negative for Dysuria, Frequency, Hematuria or Urgency Narrative Narrative: 64-year-old male history of chronic abdominal pain. Has stents in both his superior mesenteric artery and celiac stents. Patient's had prior cholecystectomy and partial gastrectomy due to ulcers. He has chronic abdominal pain to really not sure of the source. He sees pain management for this. He has had some type of spinal nerve block to helping with this and has spinal blocks pending in about 10 days. States he is having recurrent pain last several days. Denies nausea, vomiting or diarrhea. Denies fever or chills. Denies dysuria. Also states he has had URI symptoms last several days with wheezing. He is a smoker. Prior similar symptoms: Yes Recent Illness/Hospitalization: No PFSH PFS Medical History Marijuana use Restless legs History of stress test Liver failure Superior mesenteric artery syndrome Mesenteric ischemia, chronic Wears glasses Arthritis High cholesterol Migraine headache Injury of head and neck History of GI bleed Difficulty swallowing History of ulceration History of IBS History of diverticulitis Smoker Celiac artery stenosis Mesenteric artery stenosis Home Medications ?Medication ?Instructions ?Recorded ?Last Taken ?Type clopidogrel 75 mg tablet 75 mg PO QHS BLOOD THINNER 09/23/16 01/04/23 History rosuvastatin 10 mg tablet 10 mg PO QHS CHOLESTEROL 06/08/18 11/11/22 History aspirin 81 mg tablet,delayed 81 mg PO DAILY HEART HEALTH 11/12/22 01/04/23 History release pantoprazole 20 mg tablet,delayed 20 mg PO QHS ACID REFLUX 11/12/22 11/11/22 History release oxycodone 5 mg tablet 5 mg PO TID PRN PRN pain 09/26/24 Unknown History Allergy/AdvReac Type Severity Reaction Status Date / Time senna Allergy Anaphylaxis Verified 03/22/25 10:40 omeprazole AdvReac Other Verified 03/22/25 10:40 Family History Father Colon cancer Mother COPD (chronic obstructive pulmonary disease) Lung cancer Concurrent tobacco use history. Surgical History Hx of resection of stomach Hx of myringotomy History of liver biopsy Hx of surgical procedure Hx of colonoscopy Hx of cervical spine surgery History of esophagogastroduodenoscopy (EGD) History of cholecystectomy Social History household members: spouse Smoking Status: Current every day smoker tobacco type: cigarettes how long ago did patient quit smoking: Cut back over 2-3 weeks, down to 3 cig/day 10/09/22. alcohol intake: current alcohol intake frequency: a few times a month details: occasional use substance use type: does not use ROS ROS ED ROS Narrative Abdominal pain. URI. Constitutional Constitutional ED: Denies chills or fever(s) ENT ENT ED: Reports other Details: Cough ; Denies ear pain Cardiovascular Cardiovascular: Denies chest pain Respiratory/Chest Respiratory/Chest: Denies cough or dyspnea Gastrointestinal Gastrointestinal: Reports abdominal pain; Denies constipation, diarrhea, melena, nausea or vomiting Genitourinary Genitourinary ED: Denies dysuria or hematuria Musculoskeletal Musculoskeletal: Denies arthralgias or back pain Integumentary Denies abscess or Abrasions Neurologic Neurologic: Denies headache(s) Psychiatric Psychiatric: Denies anxiety Endocrine Endocrinology: Denies polydipsia Hematologic/Lymphatic Hematologic/Lymphatic: Denies easy bleeding Allergic/Immunologic Allergic/Immunologic ED: Denies mouth swelling, tongue swelling or urticaria EXAM Physical Exam Narrative Exam Narrative: 64-year-old male sitting upright in bed. Vital signs stable afebrile. Complaining of pain. Family at bedside. H EENT exam pupils round react light. Poor dentition. Moist mucous membranes. Neck nontender no JVD. Lungs coarse breath sounds. Expiratory wheezing. No rales or rhonchi. Equal symmetrical. Heart regular rhythm rate about 70 no murmur. Chest wall ribs nontender. Abdomen soft nondistended normal bowel sounds without peritoneal signs. He is complaining of pain is really not reproducibly tender however. There is no hernia or mass. No signs of obstruction. No pulsatile mass. Moving all 4 extremities. Nontender no edema normal strength. Back nontender. Neurologically is awake and alert. Answering questions following commands. Const Vital Signs: 03/22/25 10:38 03/22/25 11:20 Temperature 98.3 F Temperature Source Oral Pulse Rate 68 73 Respiratory Rate 14 20 H Blood Pressure 145/69 H Blood Pressure Mean 94 Pulse Ox 98 Oxygen Delivery Method Room Air Positive well nourished and well developed; Negative for obese, cachectic, contractures or unkempt General Appearance ED: well developed; Negative for unkempt, cachectic, contractures, NAD or pallor Nutritional Appearance: Negative for cachectic or obese HEENT Reports moist mucous membranes normocephalic and atraumatic Eyes PERRL and EOMs intact bilaterally General Eye ED: Negative for pale conjunctiva or scleral icterus Neck no lymphadenopathy, supple and no JVD Resp normal respiratory effort and No clear to auscultation bilaterally Resp Narrative: Bilateral expiratory wheezes. Coarse breath sounds. No rales or rhonchi. Auscultation: wheezes; Negative for rales or rhonchi Cardio regular rate, regular rhythm, S1 normal heart sound, S2 normal heart sound and no murmurs GI non-tender, non-distended and no masses Auscultation: normoactive bowel sounds Palpation: soft; Negative for tender, guarding, rigid, hepatomegaly, splenomegaly, hernia, mass, pulsatile mass or rebound tenderness present Back/Spine no CVA tenderness General Back: Negative for CVA tenderness Cervical Spine: Negative for cervical spine tenderness Thoracic Spine / Upper Back: Negative for thoracic spinal tenderness Lumbar Spine / Lower Back: Negative for lumbar spinal tenderness Coccyx: Negative for other Extremity full ROM General Extremety ED: Negative for edema or tenderness General Extremity: Negative for edema Neuro CN's II-XII intact bilaterally and moves all extremities Sensorium / Orientation: alert, oriented to person, oriented to place and oriented to time; Negative for orientation impaired or confused Motor Exam: strength 5/5 throughout Psych mental status grossly normal and thought process normal Appearance: Negative for unkempt Skin no wounds General Skin Exam: Negative for jaundice or pallor Lesions: no lesions Rashes: no rashes MDM MDM MDM Narrative Medical decision making narrative: 64-year-old male with acute on chronic abdominal pain Idelle have a specific cause for. He sees pain management at [facility]. He has upcoming nerve block injections for his back that helps with his abdominal pain. Patient's had 9 CAT scans here in the last 2 years. Does not believe he needs another CAT scan. Screening labs to be obtained. He will be given Dilaudid for pain and Zofran. He also is having URI symptoms most likely a viral bronchitis. A chest x-ray will be obtained. Repeat exam at 12:32 p.m. patient doing well. Feeling better. Abdomen is benign. Again nondistended. Patient brought up the idea of being admitted I explained to him with his labs the way they are in him having abdominal pain he really do not know the cause I do not feel that the hospitalist would admit him for this. He can follow-up with his pain management doctors in [place]. History & Record Review Discussion w/independent historian: Patient and Family Additional record(s) reviewed:: Prior inpatient record, Prior outpatient record, Prior ED visit and Prior labs Lab Data Attestation: I reviewed the patient's lab results. Lab results narrative: CBC shows white count 8.6 H&H 11.1 and 34.1. Platelets 319. Electrolytes show gap 17. BUN and creatinine fourteen 0.9. Glucose 88. Liver enzymes unremarkable alk phos 194. Amylase normal at 36. Lipase normal at 16. Labs: Laboratory Results - last 24 hr 03/22/25 11:04 WBC 8.6 RBC 4.92 Hgb 11.1 L Hct 34.1 L MCV 69.3 L MCH 22.6 L MCHC 32.6 RDW Std Deviation 47.2 H RDW Coeff of Rashida 19.5 H Plt Count 319 MPV 11.6 Immature Gran % (Auto) 0.300 Neut % (Auto) 72.8 H Lymph % (Auto) 15.5 L [place] % (Auto) 10.2 H Eos % (Auto) 0.5 Baso % (Auto) 0.7 Absolute Neuts (auto) 6.3 Absolute Lymphs (auto) 1.33 Nucleated RBC % 0 Sodium 135 Potassium 4.1 Chloride 100 Carbon Dioxide 17.6 L Anion Gap 17 H BUN 14 Creatinine 0.91 Estim Creat Clear Calc 53.71 Est GFR (MDRD) Non-Af 95 BUN/Creatinine Ratio 15.4 Glucose 88 Calcium 8.9 Total Bilirubin 0.55 AST 28 ALT 17 Alkaline Phosphatase 194 H Total Protein 6.9 Albumin 3.9 Globulin 3.1 Albumin/Globulin Ratio 1.2 Amylase 36 Lipase 16 Radiography Chest X-Ray - ED: 2 View, Read by ED Physician, Read by Radiologist, Heart, Lungs, Mediastinum, Bony Structures, No Acute Disease and Chronic Changes Diagnostic Testing: Clinical Impression(s) from Imaging Studies Chest X-Ray 03/22/25 11:35 IMPRESSION: There are increased lung volumes with no acute infiltrate or consolidation. Reading Location: [facility] Chest x-ray, 2 views, AP and lateral, interpreted by myself and the radiologist shows normal cardiac silhouette mediastinum. No pneumonia no infiltrates. No effusions. Lungs consistent with COPD. But no acute process. Chronic changes. Discharge Plan Triage Chief Complaint: Abd Pain ED Provider: Alexander Hernandez Dx/Rx/DC Orders Clinical Impression: Abdominal pain, Chronic pain Instructions: Abdominal Pain, ED Chronic Pain Prescriptions: No Action clopidogrel 75 MG tablet 75 mg PO QHS rosuvastatin 10 MG tablet 10 mg PO QHS aspirin 81 mg Tablet,Delayed Release (Dr/Ec) 81 mg PO DAILY pantoprazole 20 mg tablet,delayed release (DR/EC) 20 mg PO QHS oxycodone 5 mg tablet 5 mg PO TID PRN PRN (Reason: pain) Primary Care Provider: Richard Dai Referrals: Richard Dai MD [Primary Care Provider, Medical] - As soon as possible Activity Restrictions/Additional Instructions: Call and follow-up with your pain management doctors in [place]. [place] diet. Increase slowly as tolerated. Print Language: Albanian Disposition Disposition: Home, Self Care
[2025-03-22] MEDS: 0.9% Normal Saline (1000mL) 1,000 ML 999 ML IV (11:12)
[2025-03-22 11:15] LABS: Hematocrit 34.1 % (40-54); Hemoglobin 11.1 g/dL (13.0-16.5); Immature Granulocytes Count 0.030 X10^3/uL (0.0-0.0); Mean Corp Hgb Conc 32.6 g/dL (32-36); Mean Corpuscular Volume 69.3 fL (80-94); Mean Platelet Vol. 11.6 fl (6.2-12.0); NRBC Flagged by Analyzer 0 % (0-5); Platelet Count 319 K/mm3 (150-450); RBC Distribution Width CV 19.5 % (11.6-14.6); RBC Distribution Width SD 47.2 fl (35.1-43.9); Red Blood Count 4.92 M/mm3 (4.6-6.2); White Blood Count 8.6 K/mm3 (4.4-11.0)
[2025-03-22 11:20] VITALS: PULSE 73; RESP 20
--- NOTE | 2025-03-22 11:35 | RAD_ITS ---
PROCEDURE: CHEST PA AND LATERAL 03/22/2025 REASON FOR EXAM: COUGH TECHNIQUE: Procedure Code: RADCXR Modality: DX Procedure: CHEST PA AND LATERAL COMPARISON: None FINDINGS: Lung volumes are increased. Heart size and mediastinal configuration are within normal limits. There is no focal infiltrate or consolidation. There is no pneumothorax or effusion. There is no acute bony abnormality. Hardware is noted in the cervical region. Aortic calcifications are visible. A stent is visible in the upper abdomen. RAD/Chest PA and Lateral IMPRESSION: There are increased lung volumes with no acute infiltrate or consolidation. Reading Location: [facility]
[2025-03-22 11:40] LABS: Amylase 36 U/L (28-100); Lipase 16 U/L (13-75)
[2025-03-22 11:47] LABS: AST(SGOT) 28 U/L (<=37); Albumin, Serum 3.9 g/dL (3.4-4.8); Alkaline Phosphatase 194 U/L (40-129); Anion Gap 17 (5-15); BUN 14 mg/dL (4-19); BUN/Creat Ratio 15.4 RATIO (10-20); Calcium,Total 8.9 mg/dL (7.6-11.0); Carbon Dioxide 17.6 mmol/L (21.0-32.0); Chloride 100 mmol/L (98-108); Estimated Creatinine Clearance 53.71 ml/min (50-250); Globulin 3.1 g/dL (2.2-4.2); Glucose 88 mg/dL (70-99); Potassium 4.1 mmol/L (3.3-5.1)
[2025-03-22 11:51] LABS: Alanine Aminotransfer ALT/SGPT 17 U/L (<=46)
[2025-03-22 12:41] VITALS: BP 134/71; PULSE 98; RESP 18; TEMP 36.4; O2SAT 100
== END 2025-03-22 12:55 | disposition home or self-care (01) ==
PROVIDERS: Emergency Provider Emergency Medicine; PCP Family Medicine; Visit Provider Emergency Medicine
DX: R10.9 Unspecified abdominal pain (principal); G89.29 Other chronic pain; F17.210 Nicotine dependence, cigarettes, uncomplicated; Z90.3 Acquired absence of stomach [part of]; Z90.49 Acquired absence of other specified parts of digestive tract
CPT/HCPCS: 71046; 80053; 82150; 83690; 85025; 94640; 96361; 96374; 96375; 99282; A4216; J2405

== ENCOUNTER 2025-04-10 12:42 | Emergency (ER) | payer OTHER, SELFPAY ==
[2025-04-10 12:42] VITALS: BP 152/98; PULSE 92; RESP 16; TEMP 36.8; O2SAT 100; BMI 14.1
[2025-04-10 13:10] LABS: Hematocrit 38.7 % (40-54); Hemoglobin 12.4 g/dL (13.0-16.5); Immature Granulocytes Count 0.040 X10^3/uL (0.0-0.0); Mean Corp Hgb Conc 32.0 g/dL (32-36); Mean Corpuscular Volume 69.2 fL (80-94); Mean Platelet Vol. 11.6 fl (6.2-12.0); NRBC Flagged by Analyzer 0 % (0-5); Platelet Count 345 K/mm3 (150-450); RBC Distribution Width CV 19.8 % (11.6-14.6); RBC Distribution Width SD 46.2 fl (35.1-43.9); Red Blood Count 5.59 M/mm3 (4.6-6.2); White Blood Count 11.4 K/mm3 (4.4-11.0)
[2025-04-10 13:26] LABS: AST(SGOT) 21 U/L (<=37); Alanine Aminotransfer ALT/SGPT 16 U/L (<=46); Albumin, Serum 4.4 g/dL (3.4-4.8); Alkaline Phosphatase 167 U/L (40-129); Anion Gap 15 (5-15); BUN 23 mg/dL (4-19); BUN/Creat Ratio 22.2 RATIO (10-20); Calcium,Total 9.7 mg/dL (7.6-11.0); Carbon Dioxide 20.7 mmol/L (21.0-32.0); Chloride 97 mmol/L (98-108); Estimated Creatinine Clearance 45.71 ml/min (50-250); Globulin 3.3 g/dL (2.2-4.2); Glucose 105 mg/dL (70-99); Lipase 20 U/L (13-75); Potassium 4.2 mmol/L (3.3-5.1)
--- NOTE | 2025-04-10 13:27 | CT_ITS ---
PROCEDURE: CTA ABD/PELVIS W/WO CONTRAST 04/10/2025 REASON FOR EXAM: ABD PAIN. Vomiting. Mesenteric stents. Celiac artery stenosis. History of liver failure. TECHNIQUE: Procedure Code: [id number] Modality: CT Procedure: CTA ABD/PELVIS W/WO CONTRAST Following IV contrast infusion, CT angiography of the abdomen/pelvis was performed. Multiplanar Sagittal and Coronal images were obtained. CONTRAST: Isovue 370 VOLUME: 75 mL One or more dose reduction techniques were used (e.g., Automated exposure control, adjustment of the mA and/or kV according to patient size, use of iterative reconstruction technique). RADIATION DOSE SUMMARY: DLP: 285.3 mGycm COMPARISON: CT abdomen pelvis September 26, 2024 FINDINGS: Vascular Mild/moderate aortic plaque without aneurysm or dissection. Celiac axis stent is patent. SMA stent is patent. The distal SMA is patent. Inferior mesenteric artery is grossly patent. Renal arteries are patent without focal stenosis. The imaged iliofemoral artery show mild scattered plaque without stenosis or occlusion. Nonvascular Clear lung bases. Liver is unremarkable allowing for arterial phase of contrast enhancement. No signs of cirrhosis or focal mass lesion. Cholecystectomy. No biliary dilatation. Pancreas and spleen are grossly normal. Adrenal glands and kidneys are unremarkable. No hydroureteronephrosis. Urinary bladder is nondistended without focal mass or stone. Normal size prostate at 4 cm. No GI tract obstruction or enterocolitis. Normal appendix. No adenopathy or ascites. No mesenteric mass. No fracture or suspicious bone lesion. CT/CTA Abd/Pelvis W/WO Contrast IMPRESSION: No acute findings in the abdomen or pelvis. Celiac and superior mesenteric art key stents are patent. Mild/moderate aortoiliac plaque with no aneurysm or dissection identified. Reading Location: [facility]
--- NOTE | 2025-04-10 14:22 | EDS_ITS ---
HPI HPI - GI History of Present Illness Chief Complaint: Abd Pain Detail of Chief Complaint: Abdominal pain Informant: patient Narrative Narrative: Patient presents with abdominal pain that started yesterday. Patient states that he had a migraine and he had an episode of vomiting with it so he took sumatriptan to help with the migraine and it completely resolved his headache. He then subsequently started elevating abdominal pain. He tells me he has history of stents in his superior mesenteric artery as well as the celiac artery. Stents were put in about 2 years ago at [facility]. Patient denies blood in his stool or black tarry stool. Denies fever. Denies urinary symptoms. Pain is 10 out of 10. [facility] Medical History Marijuana use Restless legs History of stress test Liver failure Superior mesenteric artery syndrome Mesenteric ischemia, chronic Wears glasses Arthritis High cholesterol Migraine headache Injury of head and neck History of GI bleed Difficulty swallowing History of ulceration History of IBS History of diverticulitis Smoker Celiac artery stenosis Mesenteric artery stenosis Home Medications ?Medication ?Instructions ?Recorded ?Last Taken ?Type clopidogrel 75 mg tablet 75 mg PO QHS BLOOD THINNER 0 09/23/16 01/04/23 History rosuvastatin 10 mg tablet 10 mg PO QHS CHOLESTEROL 11/11/22 History aspirin 81 mg tablet,delayed 81 mg PO DAILY HEART HEAL TH 11/12/22 01/04/23 History release pantoprazole 20 mg tablet,delayed 20 mg PO QHS ACID RE FLUX 11/12/22 11/11/22 History release oxycodone 5 mg tablet 5 mg PO TID PRN PRN pain 12/15 Unknown History Allergy/AdvReac Type Severity Reaction Status Date / Time senna Allergy Anaphylaxis Verified 04/10/25 12:46 omeprazole AdvReac Other Verified 04/10/25 12:46 Family History Father Colon cancer Mother COPD (chronic obstructive pulmonary disease) Lung cancer Concurrent tobacco use history. Surgical History Hx of resection of stomach Hx of myringotomy History of liver biopsy Hx of surgical procedure Hx of colonoscopy Hx of cervical spine surgery History of esophagogastroduodenoscopy (EGD) History of cholecystectomy Social History household members: spouse Smoking Status: Current every day smoker tobacco type: cigarettes how long ago did patient quit smoking: Cut back over 2-3 weeks, down to 3 cig/day 10/09/22. alcohol intake: current alcohol intake frequency: a few times a month details: occasional use substance use type: does not use ROS ROS ED Review of Systems ROS Unobtainable: other Constitutional Constitutional ED: Reports lethargy; Denies chills, fever(s), sweats or weight loss Eyes Eyes: Denies blurry vision, change in vision or diplopia ENT ENT ED: Denies rhinorrhea or sore throat Cardiovascular Cardiovascular: Denies chest pain, orthopnea or racing heartbeat Respiratory/Chest Respiratory/Chest: Denies cough, dyspnea, dyspnea on exertion, orthopnea or sputum Gastrointestinal Gastrointestinal: Reports abdominal pain and nausea; Denies diarrhea or vomiting Genitourinary Genitourinary ED: Denies dysuria, hematuria or urinary frequency Musculoskeletal Musculoskeletal: Denies arthralgias, back pain, myalgias or neck pain Integumentary Denies abscess, Abrasions or rash Neurologic Neurologic: Denies headache(s) or weakness Psychiatric Psychiatric: Denies anxiety, depression or suicidal thoughts Endocrine Endocrinology: Denies polydipsia, polyphagia or polyuria Hematologic/Lymphatic Hematologic/Lymphatic: Denies easy bleeding, easy bruising or lymphadenopathy Allergic/Immunologic Allergic/Immunologic ED: Denies mouth swelling, tongue swelling or urticaria EXAM Physical Exam Const Vital Signs: 04/10/25 12:42 04/10/25 14:42 04/10/25 16:00 Temperature 98.3 F Temperature Source Oral Pulse Rate 92 88 72 Respiratory Rate 16 Blood Pressure 152/98 H 121/98 H 93/59 L Blood Pressure Mean 116 105 70 Pulse Ox 100 98 97 Oxygen Delivery Method Room Air Room Air Room Air 04/10/25 16:17 Temperature Temperature Source Pulse Rate 83 Respiratory Rate Blood Pressure 109/86 H Blood Pressure Mean 93 Pulse Ox 100 Oxygen Delivery Method Room Air Positive well nourished and well developed General Appearance ED: well developed and NAD HEENT Reports TM's clear and moist mucous membranes normocephalic and atraumatic; Negative for trauma or tenderness Tympanic Membrane ED: Yes TM's clear Eyes PERRL and EOMs intact bilaterally General Eye ED: Negative for pale conjunctiva or scleral icterus Neck no lymphadenopathy, supple and no JVD General: Negative for tenderness Chest Wall inspection of chest normal and palpation of chest normal Chest: Negative for tenderness Resp normal respiratory effort and clear to auscultation bilaterally Effort and Inspection: Negative for respiratory distress or pain with movement Auscultation: Negative for rhonchi, wheezes or diminished lung sounds Cardio regular rate, regular rhythm, S1 normal heart sound, S2 normal heart sound and no murmurs Peripheral Pulses: pulses 2+ throughout GI normal to inspection, nondistended, normoactive bowel sounds, soft to palpation, non-distended and no masses GI Narrative: Diffuse tenderness to palpation over left lower quadrant and right lower quadrant with some guarding. There is no rebound, rigidity, or cranial signs. No mass palpated. Back/Spine no CVA tenderness and no thoracic nor lumbar tenderness Extremity normal to inspection General Extremety ED: Negative for edema General Extremity: Negative for edema Neuro oriented x3, CN's II-XII intact bilaterally, no sensory deficits noted and gait normal Sensorium / Orientation: awake, alert, oriented to person, oriented to place and oriented to time Motor Exam: strength 5/5 throughout and strength abnormal Psych mental status grossly normal Skin no rashes or lesions noted and no wounds MDM MDM MDM Narrative Medical decision making narrative: Patient presents with recurrent chronic abdominal pain. History of celiac and superior mesenteric stents. Patient has had prior gastrectomy. Was seeing drafter electronic Dr. Medina here and then was referred up to [place] because etiology could be found for his pain. He was then referred to pain management and has had injections but continues to have intermittent episodes of pain. IV line established. CBC with differential obtained showed white count 11.4 with hemoglobin 12.4 and platelet count of 345. Chemistries unremarkable. BUN 23 and creat 1.04. Lactate normal at 1.7. LFTs normal and lipase was normal. Urinalysis normal. CT scan of the abdomen pelvis with IV contrast showed no acute abnormalities and he had patent stents in his superior mesenteric artery and celiac artery. Patient was medicated with Dilaudid and Zofran here. Etiology of his pain is unclear. Recommended he follow-up with GI and pain management. Discharged home stable condition peer Lab Data Attestation: I reviewed the patient's lab results. Labs: Laboratory Results - last 24 hr 04/10/25 04/10/25 04/10/25 13:00 13:31 14:55 WBC 11.4 H RBC 5.59 Hgb 12.4 L Hct 38.7 L MCV 69.2 L MCH 22.2 L MCHC 32.0 RDW Std Deviation 46.2 H RDW Coeff of Rashida 19.8 H Plt Count 345 MPV 11.6 Immature Gran % (Auto) 0.400 Neut % (Auto) 71.2 H Lymph % (Auto) 14.4 L [place] % (Auto) 11.4 H Eos % (Auto) 1.9 Baso % (Auto) 0.7 Absolute Neuts (auto) 8.1 H Absolute Lymphs (auto) 1.64 Nucleated RBC % 0 Sodium 132 L Potassium 4.2 Chloride 97 L Carbon Dioxide 20.7 L Anion Gap 15 BUN 23 H Creatinine 1.04 Estim Creat Clear Calc 45.71 L Est GFR (MDRD) Non-Af 81 BUN/Creatinine Ratio 22.2 H Glucose 105 H Lactic Acid 1.7 Calcium 9.7 Total Bilirubin 0.49 AST 21 ALT 16 Alkaline Phosphatase 167 H Total Protein 7.7 Albumin 4.4 Globulin 3.3 Albumin/Globulin Ratio 1.3 Lipase 20 Urine Color Yellow Urine Clarity Clear Urine pH 5.0 Ur Specific [place] 1.020 Urine Protein 30 H Urine Glucose (UA) Normal Urine Ketones 5 H Urine Occult Blood Negative Urine Nitrite Negative Urine Bilirubin 1 H Urine Urobilinogen 1 H Ur Leukocyte Esterase 25 H Urine RBC 0 SEEN Urine WBC 0-5 SEEN Ur Squamous Epith Cells 0-5 SEEN Urine Bacteria 0 SEEN Urine Mucus 1+ Radiography Diagnostic Testing: Clinical Impression(s) from Imaging Studies Abdomen/Pelvis CTA 04/10/25 13:27 IMPRESSION: No acute findings in the abdomen or pelvis. Celiac and superior mesenteric artery stents are patent. Mild/moderate aortoiliac plaque with no aneurysm or dissection identified. Reading Location: [facility] Discharge Plan Triage Chief Complaint: Abd Pain ED Provider: Russell Miramontes Dx/Rx/DC Orders Clinical Impression: Abdominal pain Instructions: ED Abdominal Pain Unkn Cause Male... Prescriptions: No Action clopidogrel 75 MG tablet 75 mg PO QHS rosuvastatin 10 MG tablet 10 mg PO QHS aspirin 81 mg Tablet,Delayed Release (Dr/Ec) 81 mg PO DAILY pantoprazole 20 mg tablet,delayed release (DR/EC) 20 mg PO QHS oxycodone 5 mg tablet 5 mg PO TID PRN PRN (Reason: pain) Primary Care Provider: Richard Dai Referrals: Richard Dai MD [Primary Care Provider, Medical] Activity Restrictions/Additional Instructions: Follow-up with pain management and your GI specialist. Print Language: Gibraltarian Disposition Disposition: Home, Self Care
[2025-04-10] MEDS: 0.9% Normal Saline (1000mL) 1,000 ML 999 ML IV (14:33)
[2025-04-10 14:42] VITALS: BP 121/98; PULSE 88; O2SAT 98
--- OUTSIDE RECORDS SUMMARY | 2025-04-10 14:45 | XMS RPT_ITS | CCD ---
Author Organization [facility] Care Team Providers Care Speech And Language Tutor Name Role Phone Dr. Hitesh Dai Primary Care Provider Dr. Hitesh Dai Referring Provider Dr. Kory Medina Attending Provider Dr. Garrett Bradley Emergency Provider Dr. Michael Cordova Attending Provider Dr. Michael Cordova Admit Provider Dr. Pierre Jefferson Other Provider Dr. Alexander Hernandez Emergency Provider Dr. Pierre Jefferson Admit Provider Moe TRAFFIC CONTROL TECHNICIAN, [place] Yusuf Attending Provider Dr. Nabila Goldstein Other Provider Dr. Darryl Alberto Other Provider Dr. Pierre Jefferson Referring Provider Dr. Pierre Jefferson Attending Provider Dr. Nabila Goldstein Attending Provider Dr. Nabila Goldstein Referring Provider Dr. Kory Medina Other Provider Hitesh Dai MD Primary Care Provider Hitesh Dai MD Primary Care Provider Hitesh Dai MD Unavailable Dr. Hitesh Dai Primary Care Provider Dr. Hitesh Dai Referring Provider Friend, Dr. Horn Attending Provider Gio Richardson DO Unavailable Dr. Hitesh Dai Primary Care Provider Suhas, Dr. Ramos Referring Provider Carol, Dr. Horn Attending Provider Dr. Hitesh Dai Primary Care Provider Suhas, Dr. Ramos Referring Provider [phone] Friend, Dr. Horn Attending Provider HITESH DAI Primary Care Unavailable DALM, MARIELENA Referring Unavailable DALM, MARIELENA Admitting Unavailable DALM, MARIELENA Attending Unavailable SUHAS, HITESH F Primary Care Unavailable DALM, MARIELENA Attending Unavailable DALM, MARIELENA Referring Unavailable DALM, MARIELENA Admitting Unavailable SUHAS, HITESH F Primary Care Unavailable DALM, MARIELENA Attending Unavailable DALM, MARIELENA Referring Unavailable DALM, MARIELENA Admitting Unavailable BROWN, HITESH F Primary Care Unavailable GEORGE AVILA Referring Unavailable BROWN, HITESH F Primary Care Unavailable MARISA CASTILLO Attending Unavailable SUHAS, HITESH F Referring Unavailable BROWN, HITESH F Primary Care Unavailable BROWN, HITESH F Referring Unavailable SUHAS, HITESH F Primary Care Unavailable DALM, MARIELENA Attending Unavailable MEGAN CAMPO Referring Unavailable BROWN, HITESH F Primary Care Unavailable DALM, MARIELENA Attending Unavailable DALM, MARIELENA Referring Unavailable SUHAS, HITESH F Primary Care Unavailable DALM, MARIELENA Referring Unavailable MEGAN CAMPO Attending Unavailable BROWN, HITESH F Primary Care Unavailable JOSHUA HUDSON Attending Unavailable BROWN, HITESH F Referring Unavailable BROWN, HITESH F Primary Care Unavailable DALM, MARIELENA Attending Unavailable DALM, MARIELENA Referring Unavailable SUHAS, HITESH F Primary Care Unavailable DALM, MARIELENA Attending Unavailable BROWN, HITESH F Primary Care Unavailable MARISA CASTILLO S Referring Unavailable BROWN, HITESH F Primary Care Unavailable MARISA CASTILLO Attending Unavailable MARISA CASTILLO S Referring Unavailable SUHAS, HITESH F Primary Care Unavailable Dr. Hitesh Dai Primary Care Provider Dr. Kristine Parker Emergency Provider Dr. Cheryle Yarbrough Admit Provider Dr. Cheryle Yarbrough Attending Provider [phone] Cheryle Yarbrough Other Provider Dr. Juan Lawrence Attending Provider Dr. Juan Lawrence Other Provider Koram, Dr. Joan Echevarria Other Provider Friend, Dr. Horn Attending Provider Friend, Dr. Horn Other Provider Koram, Dr. Joan Echevarria Attending Provider Suhas RODAS, Hitesh Domínguez Primary Care Provider Hitesh Dai MD Unavailable Dr. Hitesh Dai Primary Care Provider Dr. Kristine Parker Emergency Provider Dr. Cheryle Yarbrough Admit Provider Dr. Cheryle Yarbrough Attending Provider Dr. Cheryle Yarbrough Other Provider Dr. Juan Lawrence Attending Provider Dr. Juan Lawrence Other Provider Koram, Dr. Joan Echevarria Attending Provider Kormatth[place], Dr. Joan Echevarria Other Provider FriendDr. Horn Other Provider [place], Dr. Joan Echevarria Referring Provider FriendDr. Horn Attending Provider Dr. Trent Watkins Attending Provider Dr. Trent Watkins Referring Provider Dr. Aspen Hurst Emergency Provider Dr. Abigail Alonzo Admit Provider Dr. Abigail Alonzo Attending Provider Dr. Abigail Alonzo Other Provider Dr. Hitesh Dai Primary Care Provider Keith, Dr. Carmona Emergency Provider Dr. Cheryle Yarbrough Admit Provider Dr. Cheryle Yarbrough Other Provider [place]atth[place], Dr. Joan Echevarria Attending Provider Koram, Dr. Joan Echevarria Other Provider Dr. Juan Lawrence Other Provider Friend, Dr. Horn Other Provider Friend, Dr. Horn Attending Provider [place], Dr. Joan Echevarria Referring Provider Dr. Hitesh Dai Referring Provider 1([facility])[phone] Migue, Dr. Nye Admit Provider 1([facility])[phone] Migue, Dr. Nye Attending Provider Migue, Dr. Nye Other Provider Dr. Pierre Jefferson Attending Provider Dr. Pierre Jefferson Other Provider Dr. Hitesh Dai Primary Care Provider Kor, Dr. Joan Echevarria Attending Provider [place]th[place], Dr. Joan Echevarria Other Provider Friend, Dr. Horn Attending Provider Dr. Kristine Parker Emergency Provider Friend, Dr. Horn Other Provider Hitesh Dai MD Unavailable Dr. Hitesh Dai Primary Care Provider Dr. Hitesh Dai Referring Provider 1([facility])[phone] Friend, Dr. Horn Attending Provider Hitesh Dai MD Unavailable Dr. Trent Perdomo DO Unavailable Dr. Eliud Horton MD Unavailable Dr. Ronald Pollard Unavailable [facility] Unavailable Gastroenterology Provider Unavailable Ester Head MD, Dr. Vital Unavailable [phone] [facility], . [facility] Unavailable Physical Therapy, Uriah Pomerene Unavailable Counseling Provider Unavailable Unavailable [facility] Unavailable [facility] Unavailable Michael NUCLEAR ENGINEER, Yasmeen E Unavailable Unavailable [place] NUCLEAR ENGINEER, Shazia C Unavailable Unavailable Florentino NUCLEAR ENGINEER, Araceli Unavailable Unavailable Garland RODAS, Domo Valdes Unavailable Gulshan SALEEM, Fide Thrasher Unavailable Mary SLAEEM, Dewey Gray Unavailable Ezra HAWKINSN, Christopher Unavailable Unavailable Hiral JEAN-BAPTISTE, Fide Valdes Unavailable Unavaila ble Pepe NUCLEAR ENGINEER, Enio Unavailable Unavailable Jonathon SALEEM, Beth J Unavailable Julio C SCHOOL GUARD, Allyn Unavailable Unavailable Jack NUCLEAR ENGINEER, Brigitte L Unavailable Unavailab le Christos NUCLEAR ENGINEER, Jaye M Unavailable Unavailab le [place] NUCLEAR ENGINEER, Zoe Unavailable Unavailab andrews Chin MA, Christopher Unavailable Unavailable [place] NUCLEAR ENGINEER, Kristine Unavailable Unavailabl e Aric NUCLEAR ENGINEER, Tena De León Unavailable Unavaila ble Unavailable Unavailable Hitesh Dai MD Primary Care Provider Zuri Max MA Unavailable Unavailable Dr. Trent Perdomo DO Unavailable Dr. Hitesh Dai MD Primary Care Provider Dr. Alexander Hernandez MD Attending Provider Dr. Alexander Hernandez MD Emergency Provider [phone] Dr. Aspen Hurst DO Attending Provider Dr. Aspen Hurst DO Emergency Provider Dr. Edmund Hubbard DO Emergency Provider MADALYN MCMILLAN Attending Unavaila ble ISSAK, MADALYN NORTH Referring Unavaila ble [facility], [facility] Primary Care Unavailable LACEY ARROYO Admitting Unavailable LACEY ARROYO Attending Unavailable ASPEN HURST Referring Unavailable [facility], [facility] Primary Care Unavailable MADALYN MCMILLAN Consulting Unavaila ble NEGEORGE BUSCH Attending Unavailable NEGEORGE BUSCH RAY Referring Unavailable [facility], [facility] Primary Care Unavailable NEGEORGE BUSCH Attending Unavailable [facility], [facility] Primary Care Unavailable VISIONLACEY Ray Attending Unavailable NE, GEORGE RAY Referring Unavailable [facility], [facility] Primary Care Unavailable [facility], [facility] Primary Care Unavailable LACEY ARROYO Attending Unavailable [facility] Primary Care Unavailable NEGEORGE BUSCH Attending Unavailable [facility], [facility] Primary Care Unavailable NEGEORGE BUSCH Attending Unavailable TIFFANY GUNTER Referring Unavailable [facility], [facility] Primary Care Unavailable ARELY CRUZ Admitting Unavailable ARELY CRUZ Attending Unavailable RIMMA CRUZANDRA Referring Unavailable [facility] Primary Care Unavailable Suhas RODAS, Dr. Ramos Primary Care Physician Dr. Alexander Hernandez MD [facility] Alexander Hernandez Attending Unavailable Alexander Hernandez Attending Unavailable [facility] Primary Care Unavailable [facility] Primary Care Unavailable Edmund Hubbard Attending Unavailable Aspen Hurst Attending Unavailable [facility] Primary Care Unavailable [facility], [facility] Primary Care Unavailable GIO RICHARDSON Referring Unavailable [facility], [facility] Primary Care Unavailable CHRISTOPHER DUMONT Attending Unavailable JESUS CROFT Attending Unavailable JESUS CROFT Admitting Unavailable [facility], [facility] Primary Care Unavailable JESUS CROFT Attending Unavailable ALBERT HITESH Terri Referring Unavailable [facility], [facility] Primary Care Unavailable ALBERT HITESH Terri Attending Unavailable [facility] Primary Care Unavailable GIO RICHARDSON Attending Unavailable [facility] Primary Care Unavailable [facility] Primary Care Unavailable MAURIZIO, FLORENCEUO Admitting Unavailable [facility], [facility] Primary Care Unavailable JESUS CROFT Attending Unavailable LACEY ARROYO Referring Unavailable [facility], [facility] Primary Care Unavailable GIO RICHARDSON Attending Unavailable [facility], [facility] Primary Care Unavailable [facility], [facility] Primary Care Unavailable ALBERT, HITESH Terri Attending Unavailable [facility], [facility] Primary Care Unavailable LACEY ARROYO Referring Unavailable DARVIN GARCIA Attending Unavailable HITESH DAI Primary Care Unavailable SUHAS, HITESH Consulting Unavailable OJSE SAHA Admitting Unavailable YIFAN, JOSE R Attending Unavailable JOSE SAHA Primary Care Unavailable PROVIDER, UNKNOWN Consulting Unavailable PROVIDER, UNKNOWN Consulting Unavailable PROVIDER, UNKNOWN Consulting Unavailable SUHAS, HITESH Admitting Unavailable SUHAS, HITESH Attending Unavailable SUHAS, HITESH Consulting Unavailable SUHAS, HITESH Primary Care Unavailable PROVIDER, UNKNOWN Consulting Unavailable PROVIDER, UNKNOWN Consulting Unavailable PROVIDER, UNKNOWN Consulting Unavailable SUHAS, HITESH Admitting Unavailable SUHAS, HITESH Attending Unavailable BROWN, HITESH Consulting Unavailable SUHAS, HITESH Primary Care Unavailable PROVIDER, UNKNOWN Consulting Unavailable PROVIDER, UNKNOWN Consulting Unavailable PROVIDER, UNKNOWN Consulting Unavailable REECE SANDERS Admitting Unavailable HITESH DAI Referring Unavailable SUHAS, HITESH Consulting Unavailable REECE SANDERS Attending Unavailable REECE SANDERS Primary Care Unavailable PROVIDER, UNKNOWN Consulting Unavailable PROVIDER, UNKNOWN Consulting Unavailable PROVIDER, UNKNOWN Consulting Unavailable HITESH DAI Referring Unavailable SUHAS, HITESH Consulting Unavailable COVERDALESHAKIR MD Admitting Unavailable COVERDALE, SHAKIR RODAS Attending Unavailable COVERDALESHAKIR MD Primary Care Unavailable PROVIDER, UNKNOWN Consulting Unavailable PROVIDER, UNKNOWN Consulting Unavailable PROVIDER, UNKNOWN Consulting Unavailable Allergies Allergy Classification Reported Allergen(s) Allergy Type Date of Onset Reaction(s) Facility (20 sources) Omeprazole; Translations: [OMEPRAZOLE] Drug Allergy 5 Headache, Other: See Comments [facility] Comment on above: HEADACHE (20 sources) [facility], [facility]; Translations: [SENNA] Drug Allergy [address] [facility] (20 sources) traMADol Drug Allergy [facility], [facility]. (1 source) Omeprazole Drug Allergy 5 [facility] (1 source) Senna Leaves Drug Allergy 5 [facility] (1 source) Omeprazole Drug Allergy [facility] Medications Current Medications Medication Drug Class(es) Dates Sig (Normalized) Sig (Original) acetaminophen 325 mg / butalbital 50 mg / caffeine 40 mg oral tablet (20 sources) Barbiturate, Central Nervous System Stimulant, Methylxanthine take 1 tablet by mouth every four hours as needed acetaminophen 325 mg-caffeine 40 mg-butalbital 50 mg (FIORICET) per tablet Take 1 tablet by mouth every 4 hours as needed for headache. Active Comment on above: Take 1 tablet by marlys th every 4 hours as needed for headache. aspirin 81 mg delayed release oral tablet (20 sources) Platelet Aggregation Inhibitor, Nonsteroidal Anti-inflammatory Drug Start: 11-12-2022 take 1 tablet by mouth once daily Start: 07-20-2022 take 81 mg by mouth once daily Aspirin Active 81 MG PO DAILY July 20, 2022 1:00am Start: 02-14-2017 End: 09-19-2021 Aspirin 81 MG tablet,chewabl e Discontinued 81 mg PO DAILY August 18, 2018 1:00am September 19, 2021 10:53am heart Harry and David On Hold: hold for 5 days, then resume Comment on above: Take 1 tablet by marlys th once daily. aspirin 325 mg / butalbital 50 mg / caffeine 40 mg / codeine phosphate 30 mg oral capsule (20 sources) Platelet Aggregation Inhibitor, Opioid Agonist, Barbiturate, Nonsteroidal Anti-inflammatory Drug, Central Nervous System Stimulant, Methylxanthine Start: 06-22-2024 garqctb-rzzsphxrmj-A SA-caffeine 30 mg-50 mg-325 mg-40 mg capsule ; 1 (one) Capsule q 6hrs prn migraine for 0 days Quantity: 20 {Capsule} Refills: 0 Ordered: 07-Feb-2025 MD Hitesh Dai Start: 07-Feb-2025 Comments: oarrs 02/07/2025 Start: 11-12-2022 End: 04-14-2023 take 1 capsule by mouth every six hours Auqxgyo-Uzkbyqxhef-Wzb-Caff Discontinued 1 CAP PO EVERY 6 HOURS November 12, 2022 12:00am April 14, 2023 9:31am Start: 11-08-2022 End: 04-29-2024 Vyryelw-Lnlazjwrxd-Agw-Caff [id number] mg capsule Discontinued 1 NMA PO EVERY 6 HOURS as needed for MIGRAINE November 12, 2022 12:00am April 14, 2023 9:31am Start: 10-09-2021 take 1 capsule by mo ut once daily as needed egjyqfviub-jrxkslt-zaawexgm-codeine [id number] MG capsule Take 1 capsule by mouth daily as needed. 0 10/09/2021 Active Start: 10-09-2021 take 1 capsule by mo [facility] every six hours as needed Dshyidb-Ogydlnbkxu-Obi-Caff Active 1 CAP PO EVERY 6 HOURS NEEDED October 08, 2021 11:00pm Comment on above: Take 1 capsule by mo [facility] every 6 hours as needed for migraine headache (see administration instructions). OARRS 11/08/2022W-M OARRS1 oarrs 02/07/2025 chlorhexidine gluconate 1.2 mg/ml mouthwash (5 sources) Start: take 0.5 [oz_av] by mouth twice daily chlorhexidine 0.12 % Solution oral solution SWISH AND SPIT 1/2 OZ. (15ML) TWICE A DAY 0 01/18/2022 Active cholestyramine resin 4000 mg powder for oral suspension (8 sources) Bile Acid Sequestrant Start: 022 take 1 dose by mouth twice daily before mealtime Cholestyramine (With Sugar) Active 4 GM PO TWICE DAILY BEFORE MEALS 60 September 18, 2021 11:00pm administer w/meal; avoid other meds within 1hr before or 4-6hr after dose Cholestyramine-Aspart adis (Cholestyramine Light) 4 gram powder (1 source) Start: 023 Cholestyramine-Aspart adis (Cholestyramine Light) 4 gram powder Active 4 GM PO DAILY 201.6 September 06, 2022 12:00am administer w/meal; avoid other meds within 1hr before or 2hr after dose clopidogrel 75 mg oral tablet (20 sources) P2Y12 Platelet Inhibitor Start: 025 Plavix 75 mg tablet ; 1 Tablet daily for 0 days Quantity: 90 {Tablet} Refills: 1 Ordered: 14-Oct-2024 MD Hitesh Dai Start: 14-Oct-2024 Comments: Mail order. Start: 09-23-2016 End: 01-13-2023 Plavix 75 mg tablet ; 1 Tabl et daily for 0 days Quantity: 90 {Tablet} Refills: 1 Ordered: 19-Apr-2024 MD Hitesh Dai Start: 19-Apr-2024 Comments: Mail order. Comment on above: Take 1 tablet by [facility] once daily. Take 75 mg by mouth once daily. Mail order. docusate sodium 100 mg oral capsule (4 sources) Start: 03-29-2022 End: 04-05-2022 take 1 capsule by mouth twice daily docusate 100 MG capsule Take 1 capsule by mouth 2 times daily for 7 days. 14 capsule 0 03/29/2022 04/05/2022 Active Start: 03-01-2022 End: 03-08-2022 take 1 capsule by mouth twice daily docusate 100 MG capsule Take 1 capsule by mouth 2 times daily for 7 days. 14 capsule 0 03/01/2022 03/08/2022 Active Start: 02-01-2022 End: 02-08-2022 take 1 capsule by mouth twice daily docusate 100 MG capsule Take 1 capsule by mouth 2 times daily for 7 days. 14 capsule 0 02/01/2022 02/08/2022 doxycycline hyclate 100 mg oral capsule (4 sources) Tetracycline-class Drug Start: 03-29-2022 End: 04-05-2022 take 1 capsule by mouth twice daily doxycycline hyclate 100 MG capsule Take 1 capsule by mouth 2 times daily for 7 days. 14 capsule 0 03/29/2022 04/05/2022 Active Start: 03-01-2022 End: 03-08-2022 take 1 capsule by mouth twice daily doxycycline hyclate 100 MG capsule Take 1 capsule by mouth 2 times daily for 7 days. 14 capsule 0 03/01/2022 03/08/2022 Active Start: 02-01-2022 End: 02-08-2022 take 1 capsule by mouth twice daily doxycycline hyclate 100 MG capsule Take 1 capsule by mouth 2 times daily for 7 days. 14 capsule 0 02/01/2022 02/08/2022 erythromycin 250 mg delayed release oral tablet (20 sources) Macrolide, Macrolide Antimicrobial Start: 02-12-2023 End: 05-13-2023 take 1 tablet by mouth three times daily at mealtime erythromycin DR ([place]-TAB) 250 mg EC tablet Take 1 tablet by mouth three times daily with meals. 90 tablet 2 02/12/2023 05/13/2023 Active Comment on above: Take 1 tablet by marlys three times daily with meals. fluticasone propionate 0.05 mg/actuat metered dose nasal spray (1 source) Corticosteroid Start: 02-28-2022 take 2 spray(s) nasal route once daily fluticasone 50 MCG/ACT Suspension nasal spray USE 2 SPRAY(S) IN EACH NOSTRIL ONCE DAILY 0 02/28/2022 Active Food Supplemt, Lactose-Reduced (Ensure Clear) Liquid (1 source) Start: 09-19-2021 take 1 mL by mouth four times daily Food Supplemt, Lactose-Reduced (Ensure Clear) Liquid Active 120 ML PO 4 TIMES DAILY 0 September 19, 2021 10:52am HYDROmorphone hydrochloride 2 mg oral tablet (17 sources) Opioid Agonist Start: 03-07-2023 End: 03-14-2023 take 1 tablet by mouth every eight hours as needed for pain HYDROmorphone 2 mg tablet Indications: Acute post-operative pain Take 1 tablet by mouth every 8 hours as needed for pain for up to 7 days. 20 tablet 0 03/07/2023 03/14/2023 Active Start: 02-13-2023 End: 02-20-2023 take 1 tablet by mouth every six hours as needed HYDROmorphone 2 mg tablet Indications: S/P partial gastrectomy Take 1 tablet by mouth every 6 hours as needed for up to 7 days. 20 tablet 0 02/13/2023 02/20/2023 Active Start: 02-03-2023 End: 02-12-2023 take 1 tablet by mouth every four hours as needed HYDROmorphone (DILAUDID) 2 mg tablet Indications: Gastritis and gastroduodenitis Take 1 tablet by mouth every 4 hours as needed for up to 35 doses. 35 tablet 0 02/03/2023 02/12/2023 Discontinued Start: 11-12-2022 End: 04-14-2023 take 1 tablet by mouth every six hours as needed for pain Hydromorphone 4 mg tablet Discontinued 4 mg PO EVERY 6 HOURS as needed for PAIN November 12, 2022 12:00am April 14, 2023 9:31am Start: 07-20-2022 take 1 tablet by marlys th every six hours Hydromorphone (Dilaudid) 4 mg tablet Active 4 MG PO EVERY 6 HOURS 28 7 July 20, 2022 Start: 03-29-2022 End: 03-29-2022 HYDROmorphone (DILAUDID) inj ection 1 mg Comment on above: Take 1 tablet by marlys th every 4 hours as needed for up to 35 doses. Take 1 tablet by marlys th every 6 hours as needed for up to 7 days. Take 1 tablet by marlys th every 8 hours as needed for pain for up to 7 days. mirtazapine 15 mg oral tablet (9 sources) Start: End: take 1 tablet by mouth once daily at bedtime mirtazapine (REMERON) 15 mg tablet Take 1 tablet by mouth daily at bedtime. 90 tablet 3 12/03/2024 03/04/2025 Discontinued oxyCODONE hydrochloride 5 mg oral tablet (20 sources) Opioid Agonist Start: End: take 1 tablet by mouth every eight hours as needed for pain oxyCODONE IR (ROXICODONE) 5 mg immediate release tablet Indications: Chronic mesenteric ischemia (HCC) , Mesenteric artery stenosis (HCC) Take 1 tablet by mouth every 8 hours as needed for pain for up to 5 days. 15 tablet 10/26/2024 10/31/2024 Active Start: 09-23-2024 End: 09-30-2024 take 1 tablet by mouth three times daily as needed for pain Start: 03-29-2022 End: 03-29-2022 oxyCODONE (ROXICODONE) table t 5 mg Start: 03-01-2022 End: 03-01-2022 oxyCODONE HCl (ROXICODONE) t ablet 10 mg Start: 01-21-2022 End: 03-01-2022 take 1 tablet by mouth every six hours as needed oxyCODONE HCl 5 MG Oral Tablet ; 1 (one) Tablet q6hrs prn severe head ache for 0 days Quantity: 10 {Tablet} Refills: 0 Ordered: 14-Feb-2022 MD Hitesh Dai Start: 21-Jan-2022 End: 14-Feb-2022 Status: Inactive Comments: OARRS 01/07/2022 Comment on above: OARRS 01/07/2022 OARRS09/23/2024 pantoprazole 20 mg delayed release oral tablet (20 sources) Proton Pump Inhibitor Start: 07-20-2022 Pantoprazole (Protonix) 40 mg tablet,delayed release (DR/EC) Active 20 MG PO AT BEDTIME July 21, 2022 12:31am Start: 06-10-2022 take 1 tablet by marlys th at bedtime Start: 04-20-2021 End: 09-27-2021 take 1 tablet by mouth twice daily Pantoprazole Sodium 20 MG Oral Tablet Delayed Release ; 1 two times daily (20 MG) Start: 20-Apr-2021 End: 27-Sep-2021 Status: Discontinued Start: 08-26-2018 End: 01-16-2023 take 1 tablet by mouth twice daily Pantoprazole (Protonix) 40 mg tablet,delayed release (DR/EC) Discontinued 40 mg PO TWICE A DAY September 13, 2021 4:45pm October 26, 2021 4:54pm acid reflux Start: 08-26-2018 End: 07-20-2022 take 1 tablet by mouth once daily Pantoprazole (Protonix) 40 mg tablet,delayed release (DR/EC) Discontinued 40 mg PO DAILY October 26, 2021 4:53pm July 21, 2022 12:31am acid reflux Start: 06-26-2017 End: 09-12-2021 take 1 tablet by mouth once daily Pantoprazole 20 MG tablet,delayed release (DR/EC) Discontinued 20 mg PO DAILY June 26, 2017 1:00am September 12, 2021 3:35pm Start: 04-10-2016 End: 05-22-2016 take 1 tablet by mouth once daily Pantoprazole 40 MG tablet Discontinued 40 mg PO DAILY 30 April 10, 2016 12:00am May 22, 2016 1:22pm Comment on above: Take 1 tablet by marlys th twice daily before meals (0600/1600). Take 20 mg by mouth once daily. Mail order. rosuvastatin calcium 10 mg oral tablet (20 sources) HMG-CoA Reductase Inhibitor Start: 01-12-2025 Crestor 10 mg tablet ; 1 (one) Tablet daily for 0 days Quantity: 90 {Tablet} Refills: 0 Ordered: 12-Jan-2025 MD Ministerio Sewell Start: 12-Jan-2025 Comments: Mail order. Start: 10-14-2024 Crestor 10 mg tablet ; 1 (one) Tablet daily for 0 days Quantity: 90 {Tablet} Refills: 0 Ordered: 14-Oct-2024 MD Hitesh Dai Start: 14-Oct-2024 Comments: Mail order. Start: 06-29-2017 take 1 tablet by marlys th at bedtime Comment on above: Take 1 tablet by marlys th daily at bedtime. Mail order. 0.5 ml SUMAtriptan 12 mg/ml auto-injector (20 sources) Serotonin-1b and Serotonin-1d Receptor Agonist Start: 02-07-2025 SUMAtriptan 6 mg/0.5 mL subcutaneous pen injector ; 1 (one) Solution Auto-injector at onset of migraine for 0 days Quantity: 2 {Each} Refills: 0 Ordered: 07-Feb-2025 MD Hitesh Dai Start: 07-Feb-2025 Comments: auto injectors Start: 07-22-2023 SUMAtriptan 6 mg/0.5 mL subcutaneous pen injector ; 1 (one) Solution Auto-injector at onset of migraine for 0 days Quantity: 2 {Each} Refills: 0 Ordered: 22-Jul-2023 MD Hitesh Dai Start: 22-Jul-2023 Comments: auto injectors Start: 06-04-2022 SUMAtriptan [place] ccinate 6 MG/0.5ML Subcutaneous Solution Auto-injector ; 1 (one) Solution Auto-injector at onset of migraine for 0 days Quantity: 2 {Each} Refills: 6 Ordered: 04-Jun-2022 MD Hitesh Dai Start: 04-Jun-2022 Comments: auto injectors Comment on above: auto injectors Completed/Discontinued Medications Medication Drug Class(es) Dates Sig (Normalized) Sig (Original) acetaminophen 325 mg oral tablet (3 sources) Start: 03-29-2022 End: 03-29-2022 take 1 tablet by mouth every four hours as needed acetaminophen (TYLENOL) tablet 650 mg Start: 03-01-2022 End: 03-01-2022 take 1 tablet by mouth every four hours as needed acetaminophen (TYLENOL) tablet 650 mg Start: 02-01-2022 End: 02-01-2022 take 1 tablet by mouth every four hours as needed acetaminophen (TYLENOL) tablet 650 mg acetaminophen 300 mg / butalbital 50 mg / caffeine 40 mg / codeine phosphate 30 mg oral capsule (20 sources) Opioid Agonist, Barbiturate, Central Nervous System Stimulant, Methylxanthine Start: 12-27-2019 End: 12-27-2019 take 1 capsule by mouth every six hours as needed Fioricet/Codeine [id number] MG Oral Capsule ; 1 (one) Capsule q 6hrs prn migraine for 0 days Quantity: 20 {Capsule} Refills: 0 Ordered: 27-Dec-2019 MD Hitesh Dai Start: 27-Dec-2019 End: 27-Dec-2019 Status: Inactive Comments: 12/27/2019 Comment on above: OARR12/27/2019 acetaminophen 325 mg / HYDROcodone bitartrate 5 mg oral tablet (2 sources) Opioid Agonist Start: 08-05-2024 End: 09-26-2024 Hydrocodone-Acetamino phen 5-325 mg tablet Discontinued 1 {tbl} PO EVERY 6 HOURS as needed for pain 14 5 0 August 05, 2024 September 26, 2024 12:58pm Acute hip pain Pain in unspecified hip acetaminophen 325 mg / oxyCODONE hydrochloride 5 mg oral tablet (20 sources) Opioid Agonist Start: 04-14-2023 End: 08-05-2024 Oxycodone-Acetaminoph en 5-325 mg tablet Discontinued 1 {tbl} PO EVERY 6 HOURS NEEDED as needed for Pain 12 3 0 April 14, 2023 August 05, 2024 7:44am Acute abdominal pain in right lower quadrant Right lower quadrant pain Start: 04-14-2023 take 1 tablet by marlys th every six hours as needed Oxycodone-Acetaminophen Active 1 TABLET PO EVERY 6 HOURS NEEDED 12 3 April 14, 2023 Start: 08-24-2022 End: 03-04-2025 Oxycodone-Acetaminophen (Per cocet) 5-325 mg tablet Discontinued 1 {tbl} PO Q8H as needed for PAIN November 12, 2022 2:52pm April 14, 2023 9:31am Start: 03-29-2022 End: 03-29-2022 take 1 tablet by mouth every four hours as needed oxyCODONE-acetaminophen (PERCOCET) 5-325 MG per tablet 1 tablet Start: 03-01-2022 End: 03-01-2022 take 1 tablet by mouth every four hours as needed oxyCODONE-acetaminophen (PERCOCET) 5-325 MG per tablet 1 tablet Start: 02-01-2022 End: 04-05-2022 take 1 tablet by mouth every six hours as needed for pain oxyCODONE-acetaminophen (Percocet) 5-325 MG per tablet Indications: Cervicalgia , Acute postoperative pain Take 1 tablet by mouth every 6 hours as needed for Pain (breakthrough) for up to 7 days. 18 tablet 0 03/29/2022 04/05/2022 Active Start: 02-01-2022 End: 02-01-2022 take 1 tablet by mouth every four hours as needed oxyCODONE-acetaminophen (PERCOCET) 5-325 MG per tablet 1 tablet Start: 04-09-2021 End: 09-27-2021 take 1 tablet by mouth every six hours as needed Percocet 5-325 MG Oral Tablet ; 1 (one) Tablet q6hrs prn for 0 days Quantity: 10 {Tablet} Refills: 0 Ordered: 27-Sep-2021 JESUSITA Bunch Start: 09-Apr-2021 End: 27-Sep-2021 Status: Discontinued Comments: acute tx , no oarrs take 1 tablet by marlys th every four hours as needed Percocet 10-325 MG Oral Tablet ; 1 pill every 4 hours prn (10-325 MG) Status: Inactive Comment on above: acute tx , no oarrs [id number] actuat albuterol 0.09 mg/actuat metered dose inhaler (20 sources) beta2-Adrenergic Agonist Start: 09-05-19 13 End: 12-09-19 14 take 2 puff(s) by inhalation every four to six hours as needed PROAIR HFA, 108 (90 Base)MCG/ACT (Inhalation Aerosol Solution) ; 2 (two) puff(s) as needed every 4-6 hours for 0 days Quantity: 1 {inhaler(s)} Refills: 0 Ordered: 08-Dec-2013 YULIYA Grey Alex Miranda Start: 04-Sep-2012 End: 08-Dec-2013 Status: Inactive Comments: Medication taken as needed. Comment on above: Medication taken as needed. amoxicillin 500 mg / clavulanate 125 mg oral tablet (20 sources) Penicillin-class Antibacterial Start: 02-13-20 End: 02-19-20 take 1 tablet by mouth every twelve hours amoxicillin-clavul anic acid (AUGMENTIN) 500-125 mg per tablet Take 1 tablet by mouth every 12 hours for 6 days. 12 tablet 0 02/12/2023 02/18/2023 Start: 09-04-2012 End: 09-14-2012 take 1 tablet by mouth twice daily at mealtime AUGMENTIN, 875-125MG (Oral Tablet) ; 1 Tablet BID for 10 days Quantity: 20 {Tablet} Refills: 0 Ordered: 04-Sep-2012 HARPER Holt Start: 04-Sep-2012 End: 14-Sep-2012 Status: Inactive Comments: Take with food Comment on above: Take 1 tablet by marlys th every 12 hours for 6 days. Take with food calcium chloride 0.0014 meq/ml / potassium chloride 0.004 meq/ml / sodium chloride 0.103 meq/ml / sodium lactate 0.028 meq/ml injectable solution (1 source) Start: 2 End: 2 lactated ringers IV solution cephalexin 500 mg oral capsule (20 sources) Cephalosporin Antibacterial Start: 9 End: 9 take 2 capsules by mouth twice daily Cephalexin 500 MG Oral Capsule ; 2 (two) Capsule bid for 10 days Quantity: 40 {Capsule} Refills: 0 Ordered: 11-Sep-2018 MD Hitesh Dai Start: 11-Sep-2018 End: 21-Sep-2018 Status: Inactive citric acid 66.8 mg/ml / sodium citrate 100 mg/ml oral solution (1 source) Calculi Dissolution Agent, Anti-coagulant Start: 2 End: 2 sodium citrate-citric acid oral solution 15 mL Start: 03-01-2022 End: 03-01-2022 sodium citrate-citric acid o ral solution 15 mL dicyclomine hydrochloride 20 mg oral tablet (20 sources) Anticholinergic Start: 05-09-2023 End: 05-19-2024 take 1 tablet by mouth three times daily as needed for pain dicyclomine (BENTYL) 20 mg tablet Indications: RLQ abdominal pain Take 1 tablet by mouth three times a day as needed (abdominal pain). 90 tablet 05/09/2023 05/19/2024 Discontinued Start: 04-14-2023 End: 08-05-2024 take 2 capsules by mouth every six hours as needed for pain Dicyclomine 10 mg capsule Discontinued 20 mg PO EVERY 6 HOURS NEEDED as needed for abdominal pain April 14, 2023 1:20pm August 05, 2024 7:45am Start: 04-14-2023 take 20 mg by mouth every six hours as needed Dicyclomine Active 20 MG PO EVERY 6 HOURS NEEDED April 14, 2023 1:20pm End: 11-26-2021 Dicyclomine HCl 10 MG Oral C apsule ; (10 MG) Status: Inactive Comment on above: Take 1 tablet by marlys three times a day as needed (abdominal pain). EnteraGam 5 GM Oral Packet (20 sources) take 1 dose by mouth once daily EnteraGam 5 GM Oral Packet ; 1 packet per day (5 GM) Status: Inactive Comments: Per Dr. Tong Comment on above: Per Dr. Tong 2 ml famotidine 10 mg/ml injection (1 source) Histamine-2 Receptor Antagonist Start: 03-29-2022 End: 03-29-2022 famotidine (PF) (PEPCID) injection 20 mg 2 ml fentaNYL 0.05 mg/ml injection (3 sources) Opioid Agonist Start: 03-29-2022 End: 03-29-2022 fentaNYL (SUBLIMAZE) injection 25 mcg Start: 03-01-2022 End: 03-01-2022 fentaNYL (SUBLIMAZE) injecti on 25 mcg Start: 02-01-2022 End: 02-01-2022 fentaNYL (SUBLIMAZE) injecti on 25 mcg 1 ml haloperidol 5 mg/ml injection (2 sources) Typical Antipsychotic Start: 03-29-2022 End: 03-29-2022 haloperidol lactate (HALDOL) injection 0.5 mg Start: 03-01-2022 End: 03-01-2022 haloperidol lactate (HALDOL) injection 1 mg 1 ml hydrALAZINE hydrochloride 20 mg/ml injection (1 source) Arteriolar Vasodilator Start: 02-01-2022 End: 02-01-2022 hydrALAZINE (APRESOLINE) injection 10 mg HYDROmorphone (DILAUDID) injection 0.5 mg (1 source) Start: 03-01-2022 End: 03-01-2022 HYDROmorphone (DILAUDID) injection 0.5 mg hyoscyamine sulfate 0.125 mg oral tablet (20 sources) Start: 07-02-2024 End: 12-06-2024 take 0.125 mg under the tongue every four hours as needed hyoscyamine sublingual (LEVSIN/SL) 0.125 mg Dissolve 1 tablet under the tongue every 4 hours as needed. 60 tablet 1 07/02/2024 12/06/2024 Discontinued Start: 06-03-2024 End: 12-06-2024 take 1 tablet by mouth twice daily hyoscyamine SR (LEVBID) 0.375 mg 12 hr tablet Indications: Lower abdominal pain Take 1 tablet by mouth two times a day. 60 tablet 4 06/03/2024 12/06/2024 Discontinued Start: 02-19-2024 End: 12-06-2024 take 1 tablet by mouth every four hours as needed for diarrhea Hyoscyamine Sulfate 0.125 mg tablet Discontinued 0.125 mg PO EVERY 4 HOURS NEEDED as needed for diarrhea August 05, 2024 1:00am September 26, 2024 12:58pm Start: 11-13-2022 End: 04-14-2023 take 1 tablet by mouth every six hours as needed for pain, then take 2 tablets by mouth every six hours as needed for pain Hyoscyamine Sulfate (Levsin) 0.125 mg tablet Discontinued 0.125 mg PO EVERY 6 HOURS as needed for abdominal discomfort 90 2 November 14, 2022 11:36am April 14, 2023 9:31am one or two tabs every six hours as needed for abdominal pain Start: 09-19-2021 Hyoscyamine Lovell lfate Active 0.25 MG SL EVERY 6 HOURS September 19, 2021 11:08am Start: 05-25-2019 End: 11-26-2021 take 1 tablet by mouth every four hours as needed hyoscyamine (LEVSIN) 0.125 MG Tab Indications: Mesenteric ischemia , Duodenal ulcer Take 1 tablet by mouth every 4 hours as needed for Cramping. 90 tablet 0 05/25/2019 11/26/2021 Discontinued hyoscyamine 0.12 5 MG Tab SL tablet SL Take 125 mcg by mouth every 4 hours as needed for Cramping. 0 Active indomethacin 25 mg oral capsule (20 sources) Nonsteroidal Anti-inflammatory Drug Start: 09-26-2010 End: 10-03-2010 take 1 capsule by mouth three times daily INDOMETHACIN, 25MG (Oral Capsule) ; 1 Capsule three times daily for 7 days Quantity: 21 {Capsule} Refills: 0 Ordered: 26-Sep-2010 YULIAY Santiago Start: 26-Sep-2010 End: 03-Oct-2010 Status: Inactive labetalol hydrochloride 5 mg/ml injectable solution (2 sources) beta-Adrenergic Rudolph Start: 03-01-2022 End: 03-01-2022 labetalol (NORMODYNE) injection 5 mg Start: 02-01-2022 End: 02-01-2022 labetalol (NORMODYNE) inject ion 5 mg LORazepam 2 mg oral tablet (20 sources) Benzodiazepine Start: 11-17-2013 End: 02-07-2015 take 1 tablet by mouth three times daily as needed ATIVAN, 2MG (Oral Tablet) ; 1 Tablet three times daily, as needed for 0 days Quantity: 30 {Tablet} Refills: 0 Ordered: 07-Feb-2015 YULIYA Corbett Start: 17-Nov-2013 End: 07-Feb-2015 Status: Inactive Comments: Medication taken as needed. may cause sedation Comment on above: Medication taken as needed. may cause sedation 1 ml meperidine hydrochloride 25 mg/ml cartridge (1 source) Opioid Agonist Start: 03-01-2022 End: 03-01-2022 meperidine (DEMEROL) injection 12.5 mg metoclopramide 10 mg oral tablet (13 sources) Dopamine-2 Receptor Antagonist Start: 02-03-2023 End: 03-05-2023 take 1 tablet by mouth twice daily metoclopramide HCl (REGLAN) 10 mg tablet Take 1 tablet by mouth twice daily. 60 tablet 0 02/03/2023 03/05/2023 Comment on above: Take 1 tablet by marlys twice daily. naproxen 500 mg oral tablet (20 sources) Nonsteroidal Anti-inflammatory Drug Start: 02-15-2013 End: 12-08-2013 take 1 tablet by mouth twice daily NAPROXEN, 500MG (Oral Tablet) ; 1 Tablet bid for 0 days Quantity: 60 {Tablet} Refills: 0 Ordered: 08-Dec-2013 YULIYA Grey Alex Miranda Start: 15-Feb-2013 End: 08-Dec-2013 Status: Inactive 24 hr nicotine 0.583 mg/hr transdermal system (20 sources) Cholinergic Nicotinic Agonist Start: 07-26-2019 End: 08-09-2019 apply 1 dose transdermal route once daily Nicotine 14 MG/24HR Transdermal Patch 24 Hour ; 1 (one) Patch apply qd for 14 days Quantity: 14 {Patch} Refills: 0 Ordered: 26-Jul-2019 MD Hitesh Dai Start: 26-Jul-2019 End: 09-Aug-2019 Status: Inactive Comments: start after completing course of 21 mg patches Start: 07-26-2019 End: 08-09-2019 apply 1 dose transdermal route once daily Nicotine 21 MG/24HR Transdermal Patch 24 Hour ; 1 (one) Patch apply qd for 14 days Quantity: 14 {Patch} Refills: 0 Ordered: 26-Jul-2019 MD Hitesh Dai Start: 26-Jul-2019 End: 09-Aug-2019 Status: Inactive Start: 07-26-2019 End: 08-09-2019 apply 1 dose transdermal route once daily Nicotine 7 MG/24HR Transdermal Patch 24 Hour ; 1 (one) Patch apply qd for 14 days Quantity: 14 {Patch} Refills: 0 Ordered: 26-Jul-2019 MD Hitesh Dai Start: 26-Jul-2019 End: 09-Aug-2019 Status: Inactive Comments: start after completing course of 14 mg patches Comment on above: start after completi ng course of 21 mg patches start after completi ng course of 14 mg patches nitroglycerin 0.4 mg sublingual tablet (20 sources) Nitrate Vasodilator Start: 03-14-20 End: 04-30-20 22 take 1 tablet under the tongue once daily as needed Nitrostat 0.4 MG Sublingual Tablet Sublingual ; 1 (one) Tablet qd prn angina attack for 0 days Quantity: 25 {Tablet} Refills: 5 Ordered: 30-Apr-2022 LELIA Chin Start: 14-Mar-2020 End: 30-Apr-2022 Status: Inactive omeprazole 20 mg delayed release oral tablet (20 sources) Proton Pump Inhibitor Start: 12-09-19 14 End: 02-08-20 15 take 1 tablet by mouth once daily OMEPRAZOLE, 20MG (Oral Tablet Delayed Release) ; 1 (one) Tablet qd for 0 days Quantity: 30 {Tablet} Refills: 5 Ordered: 07-Feb-2015 YULIYA Corbett Start: 08-Dec-2013 End: 07-Feb-2015 Status: Inactive ondansetron 4 mg disintegrating oral tablet (20 sources) Serotonin-3 Receptor Antagonist Start: 12-30-19 End: 09-27-19 take 1 tablet by mouth every eight hours as needed for nausea Ondansetron 4 mg tablet,disintegratin g Discontinued 4 mg PO EVERY 8 HOURS NEEDED as needed for Nausea December 30, 2023 12:00am September 26, 2024 12:58pm Start: 02-03-2023 End: 06-09-2024 take 1 tablet by mouth every eight hours as needed ondansetron (ZOFRAN) 4 mg tablet Take 1 tablet by mouth every 8 hours as needed for nausea/vomiting. 12 tablet 1 02/03/2023 06/09/2024 Discontinued Start: 01-14-2023 End: 05-07-2023 ondansetron orally disintegr ating (ZOFRAN ODT) 8 mg disintegrating tablet 01/14/2023 Active Start: 08-24-2022 take 4 mg by mouth e very eight hours as needed Ondansetron Active 4 MG PO EVERY 8 HOURS NEEDED August 24, 2022 1:00am Start: 03-29-2022 End: 03-29-2022 ondansetron 4mg/2ml (ZOFRAN) injection 4 mg Start: 03-01-2022 End: 03-01-2022 ondansetron 4mg/2ml (ZOFRAN) injection 4 mg Start: 02-01-2022 End: 02-01-2022 ondansetron 4mg/2ml (ZOFRAN) injection 4 mg Start: 09-19-2021 End: 10-26-2021 take 1 tablet by mouth every eight hours as needed for nausea and vomiting Ondansetron Hcl 4 mg tablet Discontinued 4 mg PO Q8H as needed for nausea and vomiting September 19, 2021 12:00am October 26, 2021 4:53pm Start: 05-03-2019 ondansetron 8 MG Tab Dispersible tablet Take 1 tablet by mouth as needed for Nausea / Vomiting. 3 05/03/2019 Active Start: 08-19-2018 End: 01-11-2019 take 1 tablet by mouth every six hours as needed for nausea Ondansetron HCl 4 MG Oral Tablet ; 1 (one) Tablet Tablet q 6hrs prn nausea for 0 days Quantity: 20 {Tablet} Refills: 0 Ordered: 11-Jan-2019 Florentino YULIYA Araceli Start: 19-Aug-2018 End: 11-Jan-2019 Status: Inactive End: 09-27-2021 Ondansetron ; as needed End: 27-Sep-2021 Status: Discontinued Comments: Medication taken as needed. Comment on above: Take 1 tablet by marlys th every 8 hours as needed for nausea/vomiting. Medication taken as needed. wm Medication taken as needed. ondansetron 4mg/2ml (ZOFRAN) injection 4 mg (3 sources) Start: End: take 4 mg intravenously every four hours as needed ondansetron 4mg/2ml (ZOFRAN) injection 4 mg Start: 03-01-2022 End: 03-01-2022 take 4 mg intravenously every four hours as needed ondansetron 4mg/2ml (ZOFRAN) injection 4 mg Start: 02-01-2022 End: 02-01-2022 take 4 mg intravenously every four hours as needed ondansetron 4mg/2ml (ZOFRAN) injection 4 mg polyethylene glycol 3350 11652 mg powder for oral solution (13 sources) Osmotic Laxative Start: 02-03-2023 End: 03-05-2023 polyethylene glycol 3350 (MIRALAX) 17 gram/dose powder Take 17 g by mouth once daily. Dissolve dose in 4 - 8 ounces of liquid and take as directed. 476 g 0 02/03/2023 03/05/2023 Comment on above: Take 17 g by mouth o nce daily. Dissolve dose in 4 - 8 ounces of liquid and take as directed. povidone-iodine (3M SKIN and NASAL ANTISEPTIC) 5 % topical solution 1 Application (3 sources) Start: 03-29-2022 End: 03-29-2022 povidone-iodine (3M SKIN and NASAL ANTISEPTIC) 5 % topical solution 1 Application Start: 03-01-2022 End: 03-01-2022 povidone-iodine (3M SKIN and NASAL ANTISEPTIC) 5 % topical solution 1 Application Start: 02-01-2022 End: 02-01-2022 povidone-iodine (3M SKIN and NASAL ANTISEPTIC) 5 % topical solution 1 Application promethazine hydrochloride 25 mg oral tablet (20 sources) Phenothiazine Start: 10-03-2022 End: 05-07-2023 promethazine 25 mg tablet ; 1 (one) Tablet q 6hrs prn nausea for 0 days Quantity: 20 {Tablet} Refills: 0 Ordered: 07-May-2023 YULIYA Munguia Start: 03-Oct-2022 End: 07-May-2023 Status: Inactive Start: 03-01-2022 End: 03-01-2022 take 6.25 mg intravenously every hour as needed promethazine (PHENERGAN) injection 6.25 mg sennosides, long-term 8.6 mg oral tablet (13 sources) Start: 02-03-2023 End: 03-05-2023 take 1 tablet by mouth twice daily Senna 8.6 mg tab Take 1 tablet by mouth twice daily. 60 tablet 0 02/03/2023 03/05/2023 Comment on above: Take 1 tablet by marlys th twice daily. simethicone 80 mg chewable tablet (13 sources) Start: 02-03-2023 End: 03-05-2023 take 1 tablet by mouth every six hours as needed simethicone, chewable (MYLICON) 80 mg chewable tablet Take 1 tablet by mouth four times daily as needed. 120 tablet 0 02/03/2023 03/05/2023 Comment on above: Take 1 tablet by marlys th four times daily as needed. 1000 ml sodium chloride 9 mg/ml injection (5 sources) Start: 03-29-2022 End: 03-29-2022 sodium chloride 0.9% IV solution Start: 03-01-2022 End: 03-01-2022 sodium chloride 0.9% IV solu tion Start: 02-01-2022 End: 02-01-2022 sodium chloride 0.9% IV solu tion sucralfate 1000 mg oral tablet (20 sources) Aluminum Complex Start: 09-19-2021 End: 05-19-2024 take 1 tablet by mouth every four hours as needed for pain Sucralfate (Carafate) 1 gram tablet Discontinued 1 g PO Q4H as needed for STOMACH PAIN January 06, 2023 12:00am April 14, 2023 9:31am Start: 08-28-2018 End: 01-11-2019 take 1 tablet by mouth at bedtime Carafate 1 GM Oral Tablet ; 1 (one) Tablet Tablet ac and hs for 0 days Quantity: 120 {Tablet} Refills: 0 Ordered: 11-Jan-2019 YULIYA Good Start: 28-Aug-2018 End: 11-Jan-2019 Status: Inactive Comment on above: Take 1 g by mouth as needed. Medication taken as needed. sulfamethoxazole 800 mg / trimethoprim 160 mg oral tablet (20 sources) Dihydrofolate Reductase Inhibitor Antibacterial, Sulfonamide Antimicrobial Start: End: take 1 tablet by mouth twice daily Bactrim DS 800-160 MG Oral Tablet ; 1 (one) Tablet bid for 10 days Quantity: 20 {Tablet} Refills: 0 Ordered: 03-Oct-2022 MD Hitesh Dai Start: 03-Oct-2022 End: 13-Oct-2022 Status: Inactive traMADol hydrochloride 50 mg oral tablet (20 sources) Opioid Agonist Start: 018 End: take 1 tablet by mouth every six hours as needed for pain TraMADol HCl 50 MG Oral Tablet ; 1 (one) Tablet q 6hrs prn pain for 7 days Quantity: 28 {Tablet} Refills: 0 Ordered: 13-Apr-2018 MD Hitesh Dai Start: 13-Apr-2018 End: 13-Apr-2018 Status: Inactive Comments: OARRS 04/13/18 Comment on above: OARRS 04/13/18 triamcinolone acetonide 0.25 mg/ml topical cream (20 sources) Corticosteroid Start: 011 End: TRIAMCINOLONE ACETONIDE, 0.025% (External Cream) ; 1 (one) application(s) four times daily for 0 days Quantity: 80 {gram(s)} Refills: 0 Ordered: 15-Feb-2013 YULIYA Rodriguez Start: 26-Sep-2010 End: 15-Feb-2013 Status: Inactive 200 ml vancomycin 5 mg/ml injection (1 source) Glycopeptide Antibacterial Start: End: Vancomycin HCl in NaCl (VANCOCIN) 1,000 mg in 200 ml NS premix IVPB vancomycin (VANCOCIN) 750 mg in sodium chloride 0.9%, with overfill 282.5 mL (total volume) IVPB (2 sources) Start: End: vancomycin (VANCOCIN) 750 mg in sodium chloride 0.9%, with overfill 282.5 mL (total volume) IVPB Start: 03-01-2022 End: 03-01-2022 vancomycin (VANCOCIN) 750 mg in sodium chloride 0.9%, with overfill 282.5 mL (total volume) IVPB Problems Active Problems Problem Classification Problem Date Documented Date Episodic/Chronic Abdominal hernia (20 sources) Hiatal hernia; Translations: [Diaphragmatic hernia without obstruction or gangrene] 09-27-2021 Episodic Acute and unspecified renal failure (10 sources) Injury of kidney; Translations: [Acute kidney failure, unspecified] 10-10-2022 Episodic Allergic reactions (20 sources) Chronic dermatitis; Translations: [Dermatitis, unspecified] 09-27-2021 Episodic Anxiety disorders (20 sources) Anxiety; Translations: [Anxiety disorder, unspecified] 05-07-2023 Chronic Biliary tract disease (20 sources) Biliary calculus; Translations: [Calculus of gallbladder without cholecystitis without obstruction] Episodic Chronic obstructive pulmonary disease and bronchiectasis (20 sources) Bronchitis; Translations: [Bronchitis, not specified as acute or chronic] 10-03-2022 Episodic Coagulation and hemorrhagic disorders (11 sources) Blood coagulation disorder; Translations: [Coagulation defect, unspecified] Chronic Complications of surgical procedures or medical care (1 source) Postgastric surgery syndrome; 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] 03-10-2023 Episodic Disorders of lipid metabolism (12 sources) Mixed hyperlipidemia; Translations: [Mixed hyperlipidemia] Onset: Chronic Disorders of teeth and jaw (20 sources) Temporomandibular joint disorders, unspecified 09-27-2021 Episodic Esophageal disorders (20 sources) Gastroesophageal reflux disease without esophagitis; Translations: [Gastro-esophageal reflux disease without esophagitis] Onset: 9 08-26-2018 Chronic Fluid and electrolyte disorders (10 sources) Dehydration; Translations: [Dehydration] 10-10-2022 Episodic Gastroduodenal ulcer (except hemorrhage) (20 sources) Prepyloric ulcer; Translations: [Gastric ulcer, unspecified as acute or chronic, without hemorrhage or perforation] Onset: 9 05-25-2019 Chronic Gastroduodenal ulcer (except hemorrhage) (2 sources) H/O: gastric ulcer; Translations: [Personal history of peptic ulcer disease] 11-20-2023 Episodic Gastrointestinal hemorrhage (20 sources) Acute upper gastrointestinal hemorrhage; Translations: [Gastrointestinal hemorrhage, unspecified] Onset: 3 Episodic Genitourinary symptoms and ill-defined conditions (18 sources) Increased porphyrin; Translations: [Other abnormal findings in urine] Episodic Gout and other crystal arthropathies (20 sources) Gout; Translations: [Gout, unspecified] 05-07-2023 Chronic Headache; including migraine (20 sources) Migraine; Translations: [Migraine, unspecified, not intractable, without status migrainosus] 05-07-2023 Chronic Intestinal obstruction without hernia (20 sources) Stricture of colon; Translations: [Other intestinal obstruction unspecified as to partial versus complete obstruction] Onset: 5 08-10-2024 Episodic Lymphadenitis (20 sources) Lymphadenopathy; Translations: [Enlarged lymph nodes, unspecified] 01-31-2021 Episodic Nausea and vomiting (20 sources) Nausea, vomiting and diarrhea; Translations: [Nausea with vomiting, unspecified] Onset: 3 Episodic Nonspecific chest pain (20 sources) Chest pain; Translations: [Chest pain, unspecified] 09-27-2021 Episodic Nutritional deficiencies (20 sources) Deficiency of macronutrients; Translations: [Unspecified severe protein-calorie malnutrition] Onset: 7 08-26-2018 Chronic Other aftercare (1 source) Surgical follow-up; Translations: [Encounter for follow-up examination after completed treatment for conditions other than malignant neoplasm] 03-04-2023 Episodic Other aftercare (20 sources) Drug indicated; Translations: [Other [facility] (current) drug therapy] 09-27-2021 Episodic Other and unspecified benign neoplasm (14 sources) Tubular adenoma of colon; Translations: [Benign neoplasm of colon, unspecified] 10-25-2021 Episodic Other and unspecified benign neoplasm (1 source) Benign neoplasm of colon, unspecified; Translations: [Benign neoplasm of colon] Episodic Other and unspecified benign neoplasm (20 sources) Polyp of colon; Translations: [Polyp of colon] 05-07-2023 Episodic Other circulatory disease (20 sources) Celiac artery compression syndrome; 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] Onset: 7 09-16-2016 Chronic Other circulatory disease (20 sources) History of cardiovascular surgery; Translations: [Presence of cardiac and vascular implant and graft, unspecified] Onset: 3 01-13-2023 Chronic Other circulatory disease (20 sources) Vascular disorder; Translations: [Unspecified disorder of circulatory system] 2020 Episodic Other connective tissue disease (17 sources) Muscle spasm of cervical muscle of neck; Translations: [Other muscle spasm] 09-04-2021 Episodic Other connective tissue disease (20 sources) Synovitis; Translations: [Synovitis and tenosynovitis, unspecified] 09-26-2010 Episodic Other disorders of stomach and duodenum (20 sources) Abnormal gastric motility; Translations: [Functional dyspepsia] 09-27-2021 Episodic Other endocrine disorders (20 sources) Hypoglycemia; Translations: [Hypoglycemia, unspecified] 09-27-2021 Chronic Other gastrointestinal disorders (20 sources) Irritable bowel syndrome; Translations: [Irritable bowel syndrome without diarrhea] Onset: 3 09-16-2016 Chronic Other gastrointestinal disorders (5 sources) Irritable bowel syndrome without diarrhea; Translations: [Irritable bowel syndrome] Chronic Other gastrointestinal disorders (12 sources) H/O: liver disease; Translations: [Personal history of other diseases of the digestive system] 07-20-2022 Episodic Other gastrointestinal disorders (6 sources) Personal history of other diseases of the digestive system; Translations: [Personal history of other diseases of digestive system] Episodic Other gastrointestinal disorders (1 source) Diarrhea of presumed infectious origin; Translations: [Diarrhea, unspecified] 03-04-2023 Episodic Other gastrointestinal disorders (1 source) Altered bowel function; Translations: [Change in bowel habit] 03-27-2023 Episodic Other gastrointestinal disorders (2 sources) Diarrhea; Translations: [Diarrhea, unspecified] 01-15-2024 Episodic Other hematologic conditions (2 sources) History of anemia; Translations: [Personal history of diseases of the blood and blood-forming organs and certain disorders involving the immune mechanism] 11-20-2023 Episodic Other injuries and conditions due to external causes (20 sources) Hematoma; Translations: [Other injury of unspecified body region, initial encounter] 09-25-2018 Episodic Other injuries and conditions due to external causes (20 sources) Injury of right hand; Translations: [Unspecified injury of right wrist, hand and finger(s), initial encounter] 09-27-2021 Episodic Other injuries and conditions due to external causes (20 sources) Injury of left shoulder; Translations: [Unspecified injury of left shoulder and upper arm, initial encounter] 09-27-2021 Episodic Other injuries and conditions due to external causes (20 sources) Puncture wound - injury; Translations: [Other injury of unspecified body region, initial encounter] 09-27-2021 Episodic Other injuries and conditions due to external causes (20 sources) Shoulder and upper arm injury 02-15-2013 Episodic Other liver diseases (17 sources) Jaundice; Translations: [Unspecified jaundice] 05-19-2016 Episodic Other liver diseases (17 sources) Acute hepatic failure; Translations: [Acute and subacute hepatic failure without coma] 04-22-2022 Episodic Other nervous system disorders (6 sources) Chronic pain syndrome; Translations: [Chronic pain syndrome] Onset: 2 Chronic Other nervous system disorders (1 source) Chronic pain syndrome; Translations: [Chronic pain syndrome] Onset: 2 Chronic Other nervous system disorders (1 source) Chronic pain; Translations: [Other chronic pain] 03-22-2025 Chronic Other nervous system disorders (1 source) Other chronic pain; Translations: [Chronic abdominal pain] Onset: 3 Chronic Other non-traumatic joint disorders (2 sources) Hip pain; Translations: [Pain in unspecified hip] 08-13-2024 Episodic Other nutritional; endocrine; and metabolic disorders (20 sources) Disorder of porphyrin metabolism; 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] Onset: 9 03-27-2009 Chronic Other nutritional; endocrine; and metabolic disorders (20 sources) Porphyria; 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 Chronic Other nutritional; endocrine; and metabolic disorders (15 sources) Weight loss; Translations: [Abnormal weight loss] 05-22-2016 Episodic Other nutritional; endocrine; and metabolic disorders (8 sources) Abnormal weight loss; Translations: [Loss of weight] Episodic Other nutritional; endocrine; and metabolic disorders (20 sources) Decreased body mass index; Translations: [Body mass index (BMI) 19.9 or less, adult] 09-27-2021 Episodic Other nutritional; endocrine; and metabolic disorders (2 sources) Weight decreased; Translations: [Abnormal weight loss] 10-16-2022 Episodic Other screening for suspected conditions (not mental disorders or infectious disease) (20 sources) Patient encounter status; Translations: [Encounter for screening for malignant neoplasm of colon] Onset: 3 10-17-2022 Episodic Other upper respiratory infections (20 sources) Sinusitis; Translations: [Chronic sinusitis, unspecified] 09-04-2012 Chronic Peripheral and visceral atherosclerosis (20 sources) Vascular insufficiency of intestine; Translations: [Vascular disorder of intestine, unspecified] Onset: 8 05-25-2019 Chronic Pneumonia (except that caused by tuberculosis or sexually transmitted disease) (20 sources) Pneumonia; Translations: [Pneumonia, unspecified organism] 09-04-2012 Episodic Residual codes; unclassified (17 sources) H/O: Disorder; Translations: [Personal history of other specified conditions] 07-20-2022 Episodic Residual codes; unclassified (3 sources) Personal history of other specified conditions; Translations: [Personal history of other specified diseases] Episodic Residual codes; unclassified (20 sources) Influenza vaccination declined; Translations: [Immunization not carried out because of patient refusal] 09-27-2021 Episodic Residual codes; unclassified (20 sources) Tobacco use and exposure - finding; Translations: [Tobacco use] 12-31-2019 Episodic Spondylosis; intervertebral disc disorders; other back problems (20 sources) Arthropathy of spinal facet joint; Translations: [Spondylosis without myelopathy or radiculopathy, site unspecified] Onset: 2 Chronic Spondylosis; intervertebral disc disorders; other back problems (20 sources) Neck pain; Translations: [Cervicalgia] Onset: 2 Episodic Substance-related disorders (20 sources) Smoker; Translations: [Nicotine dependence, unspecified, uncomplicated] Onset: 8 Chronic Unclassified (2 sources) New Patient; Translations: [New Patient] Onset: 2 Unclassified (20 sources) Well adult male - The patient feels well with minor complaints, has decreased energy level and is sleeping well. The patient has a balanced diet. The patient exercises none (active in general). The patient sleeps 6 hours per night. Note for Well adult male: pt has gastrectomy 01/17/2023. 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 Urine tests during attacks have been very high in porphyrins. 05-07-2023 Unclassified (20 sources) Well adult male - The patient feels well with no complaints, has good energy level and is sleeping poorly. The patient has a balanced diet. The patient exercises none (active lifestyle). The patient sleeps 5 hours per night. 04-30-2022 Unclassified (20 sources) Follow Up for Multiple Chronic Conditions - The patient is here for follow-up of anxiety, GERD, gout and other condition(s) (frequent migraines). The patient always takes the prescribed medications. No side effects noted (does not need refills). The patient has an active lifestyle but no regular exercise program. The patient's out of office blood pressure checks occur occasionally and dietary compliance is fairly good usually adhering to recommendations. The patient states that there is no recent angina or dyspnea, weight has increased (up 6 pounds) and headaches are noted often but not on daily basis. 02-14-2022 Unclassified (20 sources) Follow up from hospital stay - Name of Hospital: [facility] . Date of Admission: 09/13/2021. Date of Discharge: 09/19/2021. The patient was hospitalized for Abdominal pain . New medications include ondansetron 4mg, cholestyramine, sulcralfate, hyoscyamine sulfate . Consultations ordered while in the hospital include Credit Support Counselor . No post hospital therapies were ordered. Patient was discharged to home. Current Symptoms: GI upset and neck pain . Note for Follow up from hospital stay: He had EGD done and had 3 ulcers. He was asked to stop ASA for 5 days. He needs it intermediate manager though for his stents.He saw [facility] for his neck, went to pain management , had neck injections which helped for only a few days. He had nerve burn done . He is scheduled for an MRI of his neck. 09-27-2021 Unclassified (20 sources) Follow Up for Multiple Chronic Conditions - The patient is here for follow-up of anxiety, GERD and gout. The patient always takes the prescribed medications. No side effects noted (needs refill). The patient has an active lifestyle but no regular exercise program. The patient's out of office blood pressure checks occur occasionally and dietary compliance is fairly good usually adhering to recommendations. The patient states that there is no recent angina or dyspnea, weight has increased and headaches are noted often but not on daily basis (two to three times a week.). Note for Multiple chronic conditions follow-up: reviewed by [facility] 10-25-2020 Unclassified (17 sources) Follow up consultation - The patient is here to follow-up after Emergency Room/Urgent Care (Patient was seen at [facility] 03/23/2020 left foot pain (suspected gout, given prednisone and percocet). Foot pain has improved but the joint of the left great toe is enlarged. Patient was then seen back at [facility] on 04/11/2020 for chronic Abdominal pain and Acute Enteritis (started on lomotil, zofran). CT of abdomen/pelvis done. Denies having abdominal pain currently. No longer having diarrhea at this time but will have 4-8 bowel movements daily.). Note for Consultation follow-up: reviewed by [facility] 2020 Unclassified (20 sources) [ADDITIONAL REASON] Transition into care - The patient is transitioning into care from an emergency room ([facility]) and a summary of care was reviewed. 2020 Unclassified (20 sources) [ADDITIONAL REASON] Well adult male - The patient does not feel well, has decreased energy level (about 80% normal per pt, is improving day by day) and is sleeping poorly (has trouble falling asleep due to neck pain). The patient has an inappropriate diet (states that his diet is very restricted and is limited on what he eats) and takes no supplemental vitamins & iron. The patient exercises none (no planned exercise). The patient sleeps 2 (varies 2-6 hours a night) hours per night. Note for Well adult male: Patient declines flu shot today. Thinks he had tetanus shot about 4-5 years ago. reviewed by [facility] 2020 Unclassified (20 sources) Follow Up for Multiple Chronic Conditions - The patient is here for follow-up of anxiety and GERD. The patient always takes the prescribed medications. No side effects noted (wants refill on Percocet). The patient has an active lifestyle but no regular exercise program. The patient's out of office blood pressure checks occur occasionally and dietary compliance is fairly good usually adhering to recommendations. 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 Note for Multiple chronic conditions follow-up: reviewed by [facility] 12-31-2019 Unclassified (20 sources) [ADDITIONAL REASON] Transition into care - The patient is transitioning into care from another physician (12/17/2019 Dr. Villareal, 07/30/2019 Dr. Gorman Vascular specialist.) and a summary of care was reviewed. Note for Transition into care: Patient also seen at [facility] 08/09/2019 and 10/25/2019. 12-31-2019 Unclassified (20 sources) Follow Up for Multiple Chronic Conditions - The patient is here for follow-up of anxiety, GERD and hyperlipidemia. The patient always takes the prescribed medications. No side effects noted (does not need refills). The patient has an active lifestyle but no regular exercise program. The patient's out of office blood pressure checks occur occasionally and dietary compliance is fairly good usually adhering to recommendations. The patient states that pain is generally stable, weight has decreased (down 2 pounds) and headaches have been noticed occasionally. Note for Multiple chronic conditions follow-up: He had stents of the blood suply to small bowel this past year , doing well now. 10-15-2017 Unclassified (20 sources) Follow up consultation - The patient is here to follow-up after hospitalization ([facility] and diagnosis: Chronic Mesenteric Ischemia.) on : (Admitted 06/26/17 and discharged 06/29/17.). Current symptoms include none (Pt states he is doing well. Has f/u visit with Dr. Gorman- vascular surgeon at [facility].). Note for Consultation follow-up: A 3rd stent was placed in CC during this hospitalization ( [employer] EMR was not available from 07/09 to 07/16 17. This note was written several days after the day of visit and was reconstructed from handwritten notes ) 07-19-2017 Unclassified (20 sources) Well adult male - The patient feels well with minor complaints (tired, arthritis in hands ), has good energy level and is sleeping poorly (pain in hands is preventing him to sleep well). The patient has a balanced diet and takes no supplemental vitamins & iron. The patient exercises none (active lifestyle). The patient sleeps 7 hours per night. Note for Well adult male: reviewed by [facility] 02-04-2017 Unclassified (20 sources) Well Adult, male - The patient feels well with minor complaints (Increase in heartburn.). The patient has a balanced diet. The patient exercises none (Active lifestyle.). The patient sleeps 4 hours per night. Note for Well Adult, male: Gets burning pain LUQ. Not related to any particular foods but ingeneral having food in stomach helps. Her had upper and lower endoscopy Mar 2013 and he had GERD / gastritis. He was placed on carafate and somthing else ( cant recall name ). 12-08-2013 Unclassified (20 sources) Wrist Pain - The onset of the wrist pain has been sudden and has been occurring in a persistent pattern for 1 day. The course has been constant. The wrist pain is severe. The wrist pain is characterized as a sharp stabbing (with movement). The wrist pain is described as being located in the radial aspect of wrist. Aggravating factors include physical activity. Relieving factors include rest. Associated features include warmth and erythema. 09-26-2010 Unclassified (19 sources) Transition into care - The patient is transitioning into care from an emergency room ([facility]) and a summary of care was reviewed. 2020 Unclassified (20 sources) [ADDITIONAL REASON] Follow up consultation - The patient is here to follow-up after Emergency Room/Urgent Care (Patient was seen at [facility] 03/23/2020 left foot pain (suspected gout, given prednisone and percocet). Foot pain has improved but the joint of the left great toe is enlarged. Patient was then seen back at [facility] on 04/11/2020 for chronic Abdominal pain and Acute Enteritis (started on lomotil, zofran). CT of abdomen/pelvis done. Denies having abdominal pain currently. No longer having diarrhea at this time but will have 4-8 bowel movements daily.). Note for Consultation follow-up: reviewed by [facility] 2020 Unclassified (18 sources) Transition into care - The patient is transitioning into care from another physician (12/17/2019 Dr. Villareal, 07/30/2019 Dr. Gorman Vascular specialist.) and a summary of care was reviewed. Note for Transition into care: Patient also seen at [facility] 08/09/2019 and 10/25/2019. 12-31-2019 Unclassified (18 sources) [ADDITIONAL REASON] Follow Up for Multiple Chronic Conditions - The patient is here for follow-up of anxiety and GERD. The patient always takes the prescribed medications. No side effects noted (wants refill on Percocet). The patient has an active lifestyle but no regular exercise program. The patient's out of office blood pressure checks occur occasionally and dietary compliance is fairly good usually adhering to recommendations. 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 Note for Multiple chronic conditions follow-up: reviewed by [facility] 12-31-2019 Unclassified (20 sources) Well adult male - The patient does not feel well, has decreased energy level (about 80% normal per pt, is improving day by day) and is sleeping poorly (has trouble falling asleep due to neck pain). The patient has an inappropriate diet (states that his diet is very restricted and is limited on what he eats) and takes no supplemental vitamins & iron. The patient exercises none (no planned exercise). The patient sleeps 2 (varies 2-6 hours a night) hours per night. Note for Well adult male: Patient declines flu shot today. Thinks he had tetanus shot about 4-5 years ago. reviewed by [facility] 2020 Unclassified (2 sources) Autogenerated Problem Onset: 02-16-2025 Past or Other Problems Problem Classification Problem Date Documented Da te Episodic/Chronic Abdominal pain (20 sources) Chronic abdominal pain; Translations: [Unspecified abdominal pain] Onset: 09-16-2016 Episodic Gastritis and duodenitis (20 sources) Duodenitis; Translations: [Duodenitis without bleeding] Onset: 01-13-2023 01-13-2023 Episodic Noninfectious gastroenteritis (20 sources) Colitis; Translations: [Noninfective gastroenteritis and colitis, unspecified] Onset: 07-28-2024 Episodic Other gastrointestinal disorders (20 sources) H/O: biliary disease; Translations: [Personal history of other diseases of the digestive system] Onset: 09-16-2016 09-16-2016 Episodic Other gastrointestinal disorders (1 source) Diarrhea, unspecified; Translations: [Diarrhea, unspecified type] Onset: 05-18-2024 Episodic Other hematologic conditions (20 sources) Erythrocytosis; 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] Onset: 08-24-2018 08-26-2018 Episodic Other nervous system disorders (20 sources) Acute postoperative pain; Translations: [Other acute postprocedural pain] Onset: 01-31-2023 Episodic Other nervous system disorders (2 sources) Other acute postprocedural pain; Translations: [Other acute postprocedural pain] Onset: 03-29-2022 Episodic Other non-traumatic joint disorders (1 source) Pain in left hip; Translations: [Pain in left hip] Onset: 08-19-2024 Episodic Residual codes; unclassified (20 sources) History of partial gastrectomy; Translations: [Acquired absence of stomach [part of]] Onset: 02-10-2023 02-12-2023 Episodic Unclassified (20 sources) Cold Symptoms - Symptoms include nasal congestion, runny nose, productive cough, wheezing, chills and general malaise (very achy). The onset was gradual 4 day(s) ago. The symptoms occur constantly. The patient describes this as moderate in severity and worsening. Note for Upper respiratory infection: chest congestion, spitting up white phlegm lower abdominal pain for 24 hours, no vomiting, has diarrhea-- says he has not ate in 48 hoursafter the diarrhea he does feel better but for about 5 mins and it comes back reviewed by [facility] 10-03-2022 Unclassified (20 sources) Well adult male - The patient feels well with minor complaints (gut and neck issues), has decreased energy level and is sleeping poorly (not getting enough sleeppt has trouble falling asleep and staying asleep due to pain- his neck fusion is messed up he said- has an appt w pain management next ). Note for Well adult male: reviewed by [facility] 04-26-2021 Unclassified (20 sources) Transition into care - The patient is transitioning into care from an emergency room and a summary of care was reviewed. 01-31-2021 Unclassified (13 sources) [ADDITIONAL REASON] Follow up consultation - The patient is here to follow-up after Emergency Room/Urgent Care on : (01/30/2021). Current symptoms include lump on arm. Note for Consultation follow-up: He just had a colonscopy and had an IV in that arm. 01-31-2021 Unclassified (20 sources) Abdominal pain - The onset of the abdominal pain has been variable and has been occurring in an intermittent (Has happened 3 times in the past year.) pattern for 1 year. The course has been recurrent. The pain is described as a severe sharp pain. The symptoms have been associated with diarrhea. Note for Abdominal pain: During episodes has excessive thin saliva and drooling. 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 03-14-2020 Unclassified (20 sources) Well Adult, male - The patient feels well with no complaints, has good energy level and is sleeping well. The patient has a balanced diet and takes no supplemental vitamins & iron. The patient does not exercise. The patient sleeps 6 hours per night. Note for Well Adult, male: reviewed by [facility] 05-18-2019 Unclassified (20 sources) Cold Symptoms - Symptoms include non-purulent sputum, ear fullness, scratchy throat, dry cough and wheezing, but do not include fever or headache. The onset was sudden 6 day(s) ago. The symptoms occur constantly. The patient describes this as moderate in severity and unchanged. The patient is not currently being treated for this problem. The patient has been exposed to an individual with similar symptoms (at work). Note for Upper respiratory infection: He was in recently for abdominal pain and was admitted to . Fortunately his stents were patent, sx were felt to be due to infection 09-11-2018 Unclassified (20 sources) Abdominal pain - The onset of the abdominal pain has been acute and has been occurring in a persistent pattern for 1 week. The course has been increasing. The pain is described as a severe sharp pain, stabbing and dull ache. The pain is located in the entire abdomen (mainly above the the umbilicus) and does not radiate. The symptoms are aggravated by meals (1/2 to 1 hour after eating), standing, walking and motion but have no relieving factors. The symptoms have been associated with constipation, fever, nausea and vomiting (dry heaving), while the symptoms have not been associated with diarrhea or heartburn. Note for Abdominal pain: patient was in the ER 08/18/2018 and o.v. 08/19/2018-he has ondansetron for the nausea , was dx as viral GE but is clearly not improving. He has several stents in his intestinal arteries and also has a hx of ulcers. 08-24-2018 Unclassified (20 sources) [ADDITIONAL REASON] Follow up consultation - The patient is here to follow-up after Emergency Room/Urgent Care ([facility] with abdominal pain.) on : (08-19-16). Note for Consultation follow-up: Continues with severe headache, nausea and abdominal pain. He had fever of 100.2 in ER. 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 08-19-2018 Unclassified (20 sources) Well adult male - The patient feels well with no complaints, has good energy level and is sleeping poorly (because of rib pain). The patient has a balanced diet and takes no supplemental vitamins & iron. The patient does not exercise. The patient sleeps 6 hours per night. Note for Well adult male: reviewed by [facility] 2018 Unclassified (20 sources) heard a pop in chest - applied pressure to a knotted area on the right side of his chest and heard a loud pop and felt like he broke his rib, painful to take a deep breath,feels like a click with a deep breath, has been unable to sleep d/t the pain . No known injury 04-06-2018 Unclassified (18 sources) Transition into care - The patient is transitioning into care from a hospital and a summary of care was reviewed. 09-27-2016 Unclassified (20 sources) [ADDITIONAL REASON] Arm pain - The pain is in the left arm. The onset of the pain has been sudden (When pt was in hospital. He had stent procedures done through that arm. Cloth Booker came in to draw blood and she did not realize this arm was used for the stents and she pulled his arm down and its painful ever since. There is swollen around bicep area and arm is discolored. They did u/s on the left arm to look for blood clots and pt assumed it was normal but no one massimo talked to him about those results. Arm is still very painful and limited ROM.). Note for Pain: reviewed by B 09-27-2016 Unclassified (20 sources) [ADDITIONAL REASON] Follow up consultation - The patient is here to follow-up after hospitalization (Pt was in [facility] 09/13/16 thru 09/15 and then transferred to [facility] on 09/15/16 thru 09/21/16. He had 2 stents put in celiac artery and superior mesenteric artery.). Note for Consultation follow-up: Pt feeing much better. No further abdominal pain or diarrhea. reviewed by B 09-27-2016 Unclassified (18 sources) Transition into care - The patient is transitioning into care from an emergency room and a summary of care was reviewed . 04-08-2016 Unclassified (18 sources) [ADDITIONAL REASON] Follow up consultation - The patient is here to follow-up after Emergency Room/Urgent Care ([facility] and diagnosed with neck pain.) on : (04/05/16.). Note for Consultation follow-up: Pt is still having quite a bit of cervical pain. Pain is located in back and to the right of neck. Right hand numb at times.Pt also has hx of hiatal hernia and when pain was severe he was throwing up and dry heaving which caused this area to be very painful. Pain is right below breast pain and is even more severe than neck pain.Pt has hx of neck pain and has had cervical fusions in past. reviewed by B 04-08-2016 Unclassified (20 sources) Shoulder pain - The onset of the shoulder pain has been acute and has been occurring in a persistent pattern for 2 weeks. The course has been worsening. The pain is characterized as a moderate to severe sharp stabbing. The pain is described as being located in the left shoulder and is aggravated by any movement, overhead activity and lifting. Note for Shoulder pain: 20 years ago he dislocated the shoulder and then repeated injury 3 years later. 03-27-2016 Unclassified (20 sources) Foreign body - The foreign body occurred 2 weeks ago . The pain caused by the foreign body is described as moderate. There has been associated pain. Note for Foreign body: Patient had a thorn puncture his right forearm near the antecubital space approx 3 weeks ago. Four days after the puncture, his arm became very red, swollen, and painful. Patient warmed up a needle and poked the area and drained the fluid that was in it. Area is still red with slight swelling, but not as bad as it was before. Area is hard. Patient is afebrile but hasn't felt well today. I am unable to locate when patient's last tetanus vaccine was. (Nothing on state site) 02-08-2015 Unclassified (20 sources) Hand pain - The onset of the hand pain has been acute and has been occurring in a persistent pattern for 1 month. The course has been gradually worsening. The hand pain is characterized as a moderate dull aching. The hand pain is described as being located in the dorsal hand (right hand). The hand pain is aggravated by any movement (couldn't flip a steak last night). The pain has been relieved by nothing (hasn't done anything but rest it). The symptoms have been associated with painful ROM and decreased ROM. There have been no previous diagnostic tests. There has been no previous evaluations. There has been no use of assistive devices. Note for Hand pain: Hit dorsal hand on a joey iron railing. Decreased strength. 01-17-2014 Unclassified (20 sources) Diarrhea - The onset of the diarrhea has been acute and has been occurring in a persistent pattern for 6 days. The course has been recurrent. The stools are watery (initially black liquid. Now c/o foamy stool and gas.). The frequency of bowel movements has been 2 per day. The volume of the stools is normal. The symptoms have been associated with abdominal pain (severe and continues to increase, worse when lying flat), nausea and start of a new medication (started naprosyn 1 month ago for shoulder pain - completed 30d treatment at onset of diarrhea), while the symptoms have not been associated with fever, recent travel to tropics or similar illness in other people eating the same meal. Note for Diarrhea: Pt c/o bm's q hour for first several days, now c/o bm's 2-3 times/day. Pt has taken pepto-bismol with no improvement and is drinking increased fluids frequently. 03-29-2013 Unclassified (20 sources) Shoulder pain - The onset of the shoulder pain has been sudden following an incident not at work (Was putting log splitter in his garage last night and was pushing it and it hit some tire wheels and jerked the splitter.) and has been occurring in a persistent pattern. The course has been without change. The pain is characterized as a severe dull aching (while at rest but as bryan as he tries to lift his arm then he gets severe pain in shoulder.). The pain is described as being located in the left shoulder and is aggravated by any movement and lifting. Relieving factors include rest and medication (Tried some Ibuprofen but it did not help very much.). There has been no previous physical therapy. There has been no previous surgery. 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 reviewed by [facility] 02-15-2013 Unclassified (20 sources) Cold Symptoms - Symptoms include sneezing, nasal congestion, runny nose (drainage is green), productive cough (phlegm is clear or green), fever, chills, headache and facial pain (pressure), but do not include ear pain or sore throat. The onset was sudden 2 day(s) ago. The symptoms occur constantly. The patient describes this as moderate in severity and worsening. Current treatment includes non-prescription cold medication (dayquil, nyquil). The patient has been exposed to an individual with similar symptoms (co-workers). Patient denies history of seasonal allergies, recurrent sinusitis, recurrent strep pharyngitis, asthma, tonsillectomy or recurrent ear infections. Note for Upper respiratory infection: Chest hurts with coughing. Has had some shortness of breath and wheezing. Decreased energy. 09-04-2012 Unclassified (20 sources) Ear pain - The onset of the pain has been acute and has been occurring in a persistent pattern for 5 days. The course has been increasing. The pain is described as a moderate dull aching and sharp pain. The pain is described as being located in the inner ear. The pain is felt in the left ear. Note for Ear pain: Also complains of left jaw popping for 1 year. reviewed by [facility] 06-29-2012 Unclassified (20 sources) Follow up consultation - The patient is here to follow-up after Emergency Room/Urgent Care ([facility] with acute chest pain and abdominal pain.) on : (09-06-11). Current symptoms include abdominal pain (more like cramping.), chest pain (at times but none now.) and joint pains (and neck pain. Lots of cervical pain. Had cervical fusion done 2010. Last week he turned a certain way and felt a twinge in neck. 10 minutes later he turned wrong again and has been in pain ever since in neck. He called his surgeon and put him on corticosteroid. He stopped taking them on Friday per ER doctor.He is here today in a lot of pain and here for re-evaluation. ). Note for Follow up consultation: I have seen him in the past for very similar episodes of chest / abd pain and high white count. It has been felt he may have porphyria. Testing has been negative however sx have been classic. He will go several years w no attacks then have several in row. Pt improved in ER w pain meds and 2000 cc IVF. 09-09-2011 Unclassified (20 sources) Neck pain - The neck pain has been occurring in a persistent pattern for 13 years. Associated features include paresthesias in arms (left arm). Note for Neck pain: Pt has delt with this for long time.Had an episode Friday where pain was really bad, got very nauseated. Went to chiropractor and was told that the disc between C5-6 and c6-7 were really bad. She did not take any x-rays. He is here today because he has never had path this severe before. Wants ot get checked more thoroughly. No recent injuries.Had MRI November 2008 of c spine by neurologist 05-04-2010 Unclassified (20 sources) Follow up consultation - The patient is here to follow-up after Emergency Room/Urgent Care on : (01/30/2021). Current symptoms include lump on arm. Note for Consultation follow-up: He just had a colonscopy and had an IV in that arm. 01-31-2021 Unclassified (20 sources) [ADDITIONAL REASON] Transition into care - The patient is transitioning into care from an emergency room and a summary of care was reviewed. 01-31-2021 Unclassified (20 sources) Follow up consultation - The patient is here to follow-up after hospitalization (Pt was in [facility] 09/13/16 thru 09/15 and then transferred to [facility] on 09/15/16 thru 09/21/16. He had 2 stents put in celiac artery and superior mesenteric artery.). Note for Consultation follow-up: Pt feeing much better. No further abdominal pain or diarrhea. reviewed by [facility] 09-27-2016 Unclassified (20 sources) [ADDITIONAL REASON] Transition into care - The patient is transitioning into care from a hospital and a summary of care was reviewed. 09-27-2016 Unclassified (20 sources) Follow up consultation - The patient is here to follow-up after Emergency Room/Urgent Care ([facility] and diagnosed with neck pain.) on : (04/05/16.). Note for Consultation follow-up: Pt is still having quite a bit of cervical pain. Pain is located in back and to the right of neck. Right hand numb at times.Pt also has hx of hiatal hernia and when pain was severe he was throwing up and dry heaving which caused this area to be very painful. Pain is right below breast pain and is even more severe than neck pain.Pt has hx of neck pain and has had cervical fusions in past. reviewed by [facility] 04-08-2016 Unclassified (20 sources) [ADDITIONAL REASON] Transition into care - The patient is transitioning into care from an emergency room and a summary of care was reviewed . 04-08-2016 Unclassified (20 sources) Follow up consultation - The patient is here to follow-up after Emergency Room/Urgent Care ([facility] with abdominal pain.) on : (08-19-16). Note for Consultation follow-up: Continues with severe headache, nausea and abdominal pain. He had fever of 100.2 in ER. 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 08-19-2018 Unclassified (4 sources) Arm pain - The pain is in the left arm. The onset of the pain has been sudden (When pt was in hospital. He had stent procedures done through that arm. Cloth Booker came in to draw blood and she did not realize this arm was used for the stents and she pulled his arm down and its painful ever since. There is swollen around bicep area and arm is discolored. They did u/s on the left arm to look for blood clots and pt assumed it was normal but no one massimo talked to him about those results. Arm is still very painful and limited ROM.). Note for Pain: reviewed by [facility] 09-27-2016 Unclassified (19 sources) Transition into care - The patient is transitioning into care from an urgent care and a summary of care was not provided. 04-29-2024 Unclassified (19 sources) [ADDITIONAL REASON] Follow up consultation - The patient is here to follow-up after Emergency Room/Urgent Care on : (04/26/2024 urgent care [place]). Current symptoms include bruise on arm that is tender to touch . Note for Consultation follow-up: patient hit his hand 2.5 weeks ago , was seen in uregnt care and treated w cephalexin. Was improved but now he has a tender bruise on his upper R arm and is worried its a blood clot. 04-29-2024 Unclassified (20 sources) Well adult male - The patient feels well with no complaints, has decreased energy level (dealing with stomach issues has colonoscopy 05/18/2024) and is sleeping well. The patient has a balanced diet. The patient does not exercise. The patient sleeps 6 hours per night. Note for Well adult male: reviewed by [facility] 05-05-2024 Unclassified (16 sources) Follow up consultation - The patient is here to follow-up after Emergency Room/Urgent Care on : (04/26/[address] [facility] care [place]). Current symptoms include bruise on arm that is tender to touch . Note for Consultation follow-up: patient hit his hand 2.5 weeks ago , was seen in uregnt care and treated w cephalexin. Was improved but now he has a tender bruise on his upper R arm and is worried its a blood clot. 04-29-2024 Unclassified (16 sources) [ADDITIONAL REASON] Transition into care - The patient is transitioning into care from an urgent care and a summary of care was not provided. 04-29-2024 Results Test Name Value Interpretation Reference Range Facility ED MED ADMINISTRATION DETAIL on 04-07-2025 ED MED ADMINISTRATION DETAIL Palliative Care Nurse Practitioner - MINISTERIO LEAL DOB: 1960, , Medication Administration Record [facility] [id number] [place] [address] [id number] 03/20/2025 Patient: MINISTERIO LEAL Sex: Male : 1960 Age: 64y MEASUREMENTS: Wt: 68.0 kg, Ht/Andre: 70.0 in, BMI: 21.52 ALLERGIES: omeprazole, senna Medication Ordered Medication Administration Date/Time IV NS 0.9 % 10:03/20 IV NS 0.9 % 1000 mL started in bag#1 1000 Started 1000 mL at 125 mL at 125 mL/hr via Site# 1. Allergies verified and 10:03/20/2025 mL/hr (NOW x1) confirmed 5 rights. IV patency established. IV site Sandra Mathew, checked: no pain, redness, or swelling. IV flushed R.N. thoroughly pre-medication administration. Information Stopped reviewed. Verbalizes understanding. - 10:21 Sandra 11:45 03/20/2025 Stephanie Mathew R.N. 11:45 03/20 Medication Discontinued: bag #1 infused. Scanned Total amount infused: 1000 mL. IV patency established. IV site checked: no pain, redness, or swelling. IV flushed thoroughly post-medication administration. - 11:45 Emma Prieto R.N. HYDROmorphon 10:03/20 HYDROmorphone (Dilaudid) IVP 0.5 mg given Given e (Dilaudid) IVP via Site# 1. Allergies verified and confirmed 5 rights. IV 10:03/20/2025 0.5 mg (every 3 patency established. IV site checked: no pain, redness, or Sandra Mathew, hours as swelling. IV flushed thoroughly pre-medication R.N. needed) administration. Information reviewed with patient. Scanned Verbalizes understanding. - 10:25 Sandra Mathew R.N. 1 of 2 Palliative Care Nurse Practitioner - MINISTERIO LEAL, : 1960, , Zofran IVP 8 mg 10:24 03/20 Zofran IVP 8 mg given via Site# 1. Allergies Given (NOW x1) verified and confirmed 5 rights. IV patency established. IV 10:24 03/20/2025 site checked: no pain, redness, or swelling. IV flushed Sandra Mathew thoroughly pre-medication administration. Information R.N. reviewed. Verbalizes understanding. - 10:24 Sandra Mathew R.N. Lidocaine 11:39 03/20 Lidocaine (Lidoderm) Transdermal Patch 1 Given (Lidoderm) patch given. Applied to affected area. Allergies verified 11:39 03/20/2025 Transdermal and confirmed 5 rights. Information reviewed with patient Emma Conner, Patch 1 patch including reason for taking this medication, signs of R.N. (NOW x1) allergic reaction and precautions. Verbalizes Scanned understanding. - 11:41 Emma Prieto R.N. HYDROmorphon 12:14 03/20 HYDROmorphone (Dilaudid) IVP 0.5 mg given Given e (Dilaudid) IVP via Site# 1. Allergies verified and confirmed 5 rights. IV 12:14 03/20/2025 0.5 mg (NOW patency established. IV site checked: no pain, redness, or Emma Prieto, x1, HIGH ALERT swelling. IV flushed thoroughly pre-medication R.N. MEDICATION) administration. Information reviewed with patient Scanned including reason for taking this medication, signs of allergic reaction and precautions. Verbalizes understanding. - 12:15 Emma Prieto R.N. 2 of 2 Normal [facility] ED NURSES CLINICAL NOTEon ED NURSES CLINICAL NOTE Nurse Hina - MINISTERIO LEAL, : 1960, , [place] [address] [id number] 03/20/2025 10:02:00 Patient: MINISTERIO LEAL Sex: Male : 1960 Age: 64y Disposition: Discharge to Home Disposition Decision Time: 12:03/20/2025 Departure Time: 12:30 03/20/2025 TRIAGE Arrived by private vehicle. Historian: (patient). Patient has a primary care physician. Primary physician (Suhas). Triage time: 10:03 03/20/2025. Acuity: LEVEL 3. Chief Complaint: HEADACHE, COUGH, ABDOMINAL PAIN and BACK PAIN. Onset. (). The patient has had a cough. SEPSIS SCREEN: NEGATIVE. SIRS criteria negative: heart rate greater than 90. No possible sources of infection. -- 10:10 03/20/25 EDT Azalea Bales R.N. 10:03/20/25. BP: 108/81 MAP: 90. HR: 94. RR: 18. O2 saturation: 98% Temperature: 97.9 F. Pain level now 04/01. -- 10:03/20/25 EDT Azalea Bales R.N. Measurements: 10:03/20/25 Wt: 68.0 kg, Ht/Andre: 70.0 in, BMI: 21.52 -- 10:03/20/25 EDT Azalea Bales R.N. Medications: Plavix 75 mg tablet -- 10:03/20/25 EDT Azalea Bales R.N. aspirin 81 mg tablet -- 10:03/20/25 EDT Azalea Bales R.N. Crestor oral -- 10:03/20/25 EDT Azalea Bales R.N. 1 of 5 Nurse Narrative - MINISTERIO LEAL, : 1960, , Protonix 40 mg tablet,delayed release -- 10:03/20/25 EDT Azalea Bales R.N. aspirin 81 mg tablet: Stopped 03/20/2025. -- 10:03/20/25 EDT Azalea Bales R.N. Crestor oral: Stopped 03/20/2025. -- 10:03/20/25 EDT Azalea Bales R.N. Plavix 75 mg tablet: Stopped 03/20/2025. -- 10:03/20/25 EDT Azalea Bales R.N. Protonix 40 mg tablet,delayed release: Stopped 03/20/2025. -- 10:03/20/25 EDT Azalea Bales R.N. 10:03/20/25. Preferred Pharmacy: [facility] -- 10:03/20/25 EDT Azalea Bales R.N. Allergies: senna -- 10:03/20/25 EDT Azalea Bales R.N. omeprazole -- 10:03/20/25 EDT Azalea Bales R.N. Problems: Ulcer of esophagus -- 10:03/20/25 ZELALEMT Azalea Bales R.N. Surgeries: stomach -- 10:03/20/25 ZELALEMT Azalea Bales R.N. History 10:03/20/25. SOCIAL HX: Light tobacco smoker (cigarette)- less than 1/2 a pack per day. Drug use: marijuana. No [...] have thoughts of harming or killing yourself?. FALL RISK ASSESSMENT: Fall risk assessment completed. No risk factors identified. -- 10:03/20/25 EDT Azalea Bales R.N. 2 of 5 Nurse Narrative - MINISTERIO LEAL, : 1960, , Interventions 10:03/20/25. Advanced care plan discussed with patient. Patient does not have advanced directive. -- 10:03/20/25 EDT Azalea Bales R.N. PHYSICAL ASSESSMENT 10:37 03/20/25. GENERAL / NEURO / PSYCH: Alert. Oriented X 4. Appears in pain. ( Pt arrives ambulatory with hunched over gait, screaming, and thrashing around in the bed c/o abd pain and states I think I have pneumonia Pt reports coughing, and flu.). HEENT: No facial asymmetry noted. RESPIRATORY: Respirations not labored. Decreased breath sounds. CVS: Normal sinus rhythm noted. Capillary refill less than 2 seconds. Pulses within normal limits. GI / : Abdomen soft and nontender and normal bowel sounds. SKIN: Skin intact. Skin is warm and dry. Normal skin turgor. -- 10:52 03/20/25 ANIBAL Mathew R.N. NURSING PROGRESS NOTES 10:03 03/20/25. Site #1 started in the left antecubital space with an 18g needle with aseptic technique and good blood return; 1 attempt. Blood drawn: rainbow set tube(s). Saline lock flushed with 5 mL saline. -- 10:10 03/20/25 ANIBAL Mathew R.N. 10:20 03/20/25. IV NS 0.9 % 1000 mL started in bag#1 1000 mL at 125 mL/hr via Site# 1. Allergies verified and confirmed 5 rights. IV patency established. IV site checked: no pain, redness, or swelling. IV flushed thoroughly pre-medication administration. Information reviewed. Verbalizes understanding. -- 10:21 03/20/25 ANIBAL Mathew R.N. 10:22 03/20/25. Patient ID band checked for patient name and birthdate: patient confirmed. Blood samples drawn from the left forearm peripheral IV site with Vacutainer 18g by ia per protocol ; labeled in presence of the patient: penny top. Line flushed with 5 mL normal saline post blood draw. -- 10:03/20/25 ANIBAL Mathew R.N. 10:24 03/20/25. Zofr (more content not included)... Normal [facility] ED ORDER SHEET (CPOE ONLY)on 04-07-2025 ED ORDER SHEET (CPOE ONLY) Order Sheet - MINISTERIO LEAL, : 1960, , Order Sheet [address] [place] [address] [id number] 03/20/2025 Patient: MINISTERIO LEAL Sex: Male : 1960 Age: 64y MEASUREMENTS: Wt: 68.0 kg, Ht/Andre: 70.0 in, BMI: 21.52 ALLERGIES: omeprazole, senna MEDICATION/IV/DRIP/FLUID ORDERS Acknowledge Order Description Priority Entered d Completed IV NS 0.9 %1000 mL at 125 10:13 03/20/2025 10:21 mL/hr (NOW x1) Shakir Coverdale, 03/20/2025 Nikolas Mathew R.N. HYDROmorphone 10:13 03/20/2025 10:25 (Dilaudid) IVP0.5 mg (every Shakir Coverdale, 03/20/2025 3 hours as needed) Nikolas Mathew R.N. Zofran IVP8 mg (NOW x1) 10:13 03/20/2025 10:24 Shakir Coverdale, 03/20/2025 Nikolas Mathew R.N. Lidocaine (Lidoderm) 11:32 03/20/2025 11:33 11:41 Transdermal Patch1 patch Shakir Coverdale, 03/20/2025 03/20/2025 (NOW x1) Emma Ferrara, ChristopherN. R.N. 1 of 4 Order Sheet - MINISTERIO LEAL, : 1960, , HYDROmorphone 11:58 03/20/2025 12:12 12:15 (Dilaudid) IVP0.5 mg (NOW Shakir Coverdale, 03/20/2025 03/20/2025 x1, HIGH ALERT MEDICATION) Emma Ferrara R.N. R.N. Reason for ordering with Benefits outweigh risks --11:58 03/20/2025 Shakir alerts: Nikolas Meadows LAB ORDERS Acknowledge Order Description Priority Entered d Collected Completed CBC w Diff Stat Stat 10:13 10:42 10:42 03/20/2025 03/20/2025 03/20/2025 Sandra Lopez [place], M.D. R.N. RFariha CMP Stat Stat 10:13 10:42 10:42 03/20/2025 03/20/2025 03/20/2025 Sandra Lopez Coverdale, M.D. R.N. R.N. Lipase Stat Stat 10:13 10:42 10:43 03/20/2025 03/20/2025 03/20/2025 Sandra Lopez Coverdale, M.D. R.N. R.N. Urine Culture [CCL] Stat 10:13 10:42 10:43 Stat 03/20/2025 03/20/2025 03/20/2025 Sandra Lopez Coverdale, M.D. R.N. RClaudiaN. Lactate, Serum Stat Stat 10:13 10:42 10:42 03/20/2025 03/20/2025 03/20/2025 2 of 4 Order Sheet - MINISTERIO LEAL, : 1960, , Sandra Loepz [place], M.D. R.N. RClaudiaN. EKG - ED Stat Stat 10:13 10:42 10:42 03/20/2025 03/20/2025 03/20/2025 Sandra Lopez Coverdale, M.D. R.N. RClaudiaN. Troponin-I Stat Stat 10:13 10:42 10:43 03/20/2025 03/20/2025 03/20/2025 Sandra Lopez Coverdale, M.D. R.N. R.N. Urine Drug Screen Stat 10:21 10:42 Stat 03/20/2025 03/20/2025 Dori Lopez M.D. R.N. Order 12:21 Patient refused to give urine sample Emma Prieto R.N. Comments: 03/20/2025: DIAGNOSTIC STUDY ORDERS Acknowledge Order Description Priority Entered d Completed CT ABD/PEL wo Cont Stat Stat 10:13 03/20/2025 10:42 10:43 Shakir Meadows, 03/20/2025 03/20/2025 M.D. Sandra Mathew, Sandra Mathwe, R.N. R.N. Reason for Study: Abdominal Pain STAFF ORDERS Acknowledge Order Description Priority Entered d Collected Completed 3 of 4 Order Sheet - MINISTERIO LEAL, : 1960, , IV Saline Lock 10:13 10:42 10:43 03/20/2025 03/20/2025 03/20/2025 Sandra Lopez [place], M.D. R.NClaudia RClaudiaN. [Electronically signed by Shakir Meadows M.D. (03/20/2025 10:13 EDT)] [Electronically signed by Shakir Meadows M.D. (03/20/2025 10:13 EDT)] [Electronically signed by Shakir Meadows M.D. (03/20/2025 10:21 EDT)] [Electronically signed by Shakir Meadows M.D. (03/20/2025 11:32 EDT)] [Electronically signed by Shakir Meadows M.D. (03/20/2025 11:59 EDT)] 4 of 4 Normal [facility] ED PHYSICIAN CLINICAL REPORT on 04-07-2025 ED PHYSICIAN CLINICAL REPORT Narrative - MINISTERIO LEAL, : 1960, , [place] [address] [phone] 03/20/2025 10:02:00 Patient: MINISTERIO LEAL Sex: Male : 1960 Age: 64y Disposition: Discharge to Home Disposition Decision Time: 12:03/20/2025 Departure Time: 12:30 03/20/2025 Measurements Wt: 68.0 kg, Ht/Andre: 70.0 in, BMI: 21.52 Initial Vital Sign Measured Surekha Time BP MAP HR RR O2Sat ETCO2 Temp n GCS RTS 10:09 108/81 90 94 18 98% 97.9 F 10 03/20/2025 Time Seen: 10:01 03/20/2025. Arrived- By private vehicle. Historian- patient. Independent historian- family. HISTORY OF PRESENT ILLNESS Chief Complaint: ABDOMINAL PAIN. It is described as pain, sharp, cramping and burning. No radiation. It is described as located in the upper abdomen. This started yesterday. At its maximum, severity described as severe. When seen in the E.D., severity described as severe. Modifying factors- (nothing). The patient has had nausea, loss of appetite and vomiting. No diarrhea. (Patient has had extensive workup for this for many years. He is status post partial gastrectomy for gastritis. That did not seem to help his pain. He is receiving shots in the back of his neck which seemed to help his pain. He is due for additional injections next week. He denies change in medication or diet. He does use marijuana regularly. Does not use alcohol. He has no history of pancreatitis. he has been told he has a tortuous colon. He falls and pain management of his problems next appointment is April 01. He denies diarrhea or vomiting. He denies 1 of MINISTERIO Arroyo, : 1960, , change in medications. He does feel better he lays on his right side.). No recent travel. Similar symptoms previously. Patient has had similar symptoms many times. Recent medical care: The patient was seen recently at another facility. REVIEW OF SYSTEMS MUSCULOSKELETAL: No joint pain or back pain. THROAT: No sore throat. NEUROLOGICAL: No headache. : No difficulty with urination or pain with urination. GI: No constipation, black stools or hematemesis. SKIN: No skin rash. RESPIRATORY: The patient has had difficulty breathing. CVS: No chest pain. PAST HISTORY See nurses notes. esophageal ulcer, partial gastrectomy, episodic abdominal pain with vomiting for many years with unknown cause. Neck pain. Ulcer of esophagus Surgeries: stomach Medications: aspirin 81 mg tablet aspirin 81 mg tablet: Stopped 03/20/2025. Crestor oral Crestor oral: Stopped 03/20/2025. Plavix 75 mg tablet Plavix 75 mg tablet: Stopped 03/20/2025. Protonix 40 mg tablet,delayed release Protonix 40 mg tablet,delayed release: Stopped 03/20/2025. Allergies: omeprazole senna SOCIAL HISTORY 2 of 12 MINISTERIO Arroyo, : 1960, , Smoker- current status unknown. Drug use: occasional marijuana per . No alcohol use. FAMILY HISTORY Negative. ADDITIONAL NOTES The nursing notes have been reviewed. PHYSICAL EXAM Vital Signs: Have been reviewed. Appearance: Anxious. Appears to be in pain. Patient in severe distress. Eyes: Pupils equal, round and reactive to light. Eyes normal inspection. ENT: Ears normal. Nose normal. Pharynx normal. Neck: Normal inspection. Neck supple. No JVD or carotid bruit. CVS: Normal heart rate and rhythm. Heart sounds normal. Pulses normal. Respiratory: No respiratory distress. Painless inspiration. Breath sounds normal. Chest nontender. Abdomen: Soft. Severe tenderness in the epigastric area and left lower quadrant with guarding present (epigastric to left lower quadrant). Bowel sounds normal. No organomegaly. No mass. Back: Normal inspection. Skin: Skin warm and dry. Normal skin color. No rash. Normal skin turgor. Extremities: Extremities exhibit normal ROM. No lower extremity edema. Neuro: Oriented X 3. Altered mental status. (Moaning and rolling about the bed) Not confused, forgetful, combative or disoriented to anything. No motor deficit. No weakness. No sensory deficit. No sensory deficit. LABS, X-RAYS, AND EKG Laboratory Tests: CBC + DIFF Final HERNANDEZ: 03/20/2025 10:03:00 EDT MsgRcvd: 03/20/2025 11:02 EDT Lab Test Result Reference Status Received 3 of 12 MINISTERIO Arroyo, : 1960, , 03/20/2025 11:02 CBC + DIFF Final EDT CBC-COMPLETE BLOOD COUNT 14.7 x 10/UL 03/20/2025 11:02 WBC 4.5 - 10.8 Final Above high normal EDT 03/20/2025 11:02 RBC 5.67 x 10/UL 4.50 - 6.00 Final EDT 03/20/2025 11:02 HEMOGLOBIN 13.3 g/dl 13.0 - 17.5 Final EDT 39.4 % 03/20/2025 11:02 HEMATOCRIT 40.0 - 52.0 Final Below low normal EDT 70 fl 09/ (more content not included)... Normal [facility] ED SUPER BILLon 04-07-2025 ED SUPER BILL MINISTERIO Damico, : 1960, , [facility] [address] [place] [address] [phone] 03/20/2025 Patient: MINISTERIO LEAL Sex: Male : 1960 Age: 64y Item Facility Profession Category Description Code al Code Quantity Fee Total Drugs Normal 090632 1 $0.00 $0.00 Saline 1000cc (296115) Nurse/E/M EMERGENCY 522660 1 $0.00 $0.00 DEPT VISIT HIGH SEVERITYFU NCJ (41292- 25) Nurse/IV/IM/ Hydration 450903 1 $0.00 $0.00 Infusions additional hour (80467) Nurse/IV/IM/ IVP 859406 1 $0.00 $0.00 Infusions additional push (29911) Nurse/IV/IM/ IVP initial 560208 1 $0.00 $0.00 Infusions (16301) 1 of 2 MINISETRIO Damico, : 1960, , Nurse/IV/IM/ IVP same 291594 1 $0.00 $0.00 Infusions med (31 min apart) (09565) Grand Total $0.00 Providers Shakir Meadows M.D. Chief Complaint ABDOMINAL PAIN. Principal Diagnosis Chronic generalized abdominal pain of undetermined cause. ICD-10 Codes R10.84: Generalized abdominal pain 2 of 2 Normal [facility] ED VISIT SUMMARYon ED VISIT SUMMARY Visit Overview - MINISTERIO JAIME : 1960, , Visit Overview [facility] [address] [place] [address] [phone] 03/20/2025 Patient: MINISTERIO LEAL Sex: Male : 1960 Age: 64y 04/07/2025 08:15 AM EDT ED Arrival:10:02 03/20/2025 Status: Recent Travel:no EDT Language:eng Adv Directive:No Isolation Status: Infectious Disease Ethnicity:N Fall Risk:no risk Exposure:no Measurements:5'10 / Self-Harm Status:risk Sepsis Screen:negative 177.8 cm 150.0 lb / 68.0 kg Chief Complaint:ABDOMINAL PAIN, BACK PAIN, COUGH, HEADACHE, (), and () ALLERGIES omeprazole senna HOME MEDICATIONS aspirin 81 mg tablet 1 of 4 Visit Overview - MINISTERIO LEAL, : 1960, , aspirin 81 mg tablet: Stopped 03/20/2025. Crestor oral Crestor oral: Stopped 03/20/2025. Plavix 75 mg tablet Plavix 75 mg tablet: Stopped 03/20/2025. Protonix 40 mg tablet,delayed release Protonix 40 mg tablet,delayed release: Stopped 03/20/2025. PAST MEDICAL HISTORY / PROBLEMS See nurses notes Ulcer of esophagus PAST SURGICAL HISTORY stomach SOCIAL HISTORY Smoking status: Yes Alcohol use: No Drug use: Yes ED COURSE MEDICATIONS GIVEN IN EMERGENCY DEPARTMENT 10:20 03/20/25 IV NS 0.9 % 1000 mL 125 mL/hr 10:24 03/20/25 Zofran IVP 8 mg 10:24 03/20/25 HYDROmorphone (Dilaudid) IVP 0.5 mg 11:39 03/20/25 Lidocaine (Lidoderm) Transdermal Patch 1 patch 12:14 03/20/25 HYDROmorphone (Dilaudid) IVP 0.5 mg IV SITE INFORMATION INTAKE OUTPUT REASSESMENT (most recent) 2 of 4 Visit Overview - MINISTERIO LEAL, : 1960, , 10:37 03/20/25. GENERAL / NEURO / PSYCH: Alert. Oriented X 4. Appears in pain. ( Pt arrives ambulatory with hunched over gait, screaming, and thrashing around in the bed c/o abd pain and states I think I have pneumonia Pt reports coughing, and flu.). HEENT: No facial asymmetry noted. RESPIRATORY: Respirations not labored. Decreased breath sounds. CVS: Normal sinus rhythm noted. Capillary refill less than 2 seconds. Pulses within normal limits. GI / : Abdomen soft and nontender and normal bowel sounds. SKIN: Skin intact. Skin is warm and dry. Normal skin turgor. VITAL SIGNS First Vitals Last Vitals Temp 10:03/20/25 97.9 F Temp 12:03/20/25 BP 10:03/20/25 108/81 BP 12:03/20/25 109/80 HR 10:03/20/25 94 HR 12:03/20/25 83 RR 10:03/20/25 18 RR 12:03/20/25 15 O2 Sat 10:03/20/25 98% O2 Sat 12:03/20/25 97% Pain 10:03/20/25 10 Pain 12:03/20/25 5 ETCO2 10:03/20/25 ETCO2 12:03/20/25 GCS 10:03/20/25 GCS 12:03/20/25 RTS 10:03/20/25 RTS 12:03/20/25 PROCEDURES NURSING INTERVENTIONS LABS / STUDIES LABS / STUDIES ORDERED CBC w Diff CMP CT ABD/PEL wo Cont EKG - ED Lactate, Serum Lipase Troponin-I Urine Culture [CCL] Urine Drug Screen 3 of 4 Visit Overview - MINISTERIO LEAL, : 1960, , CLINICAL IMPRESSION CHRONIC GENERALIZED ABDOMINAL PAIN OF UNDETERMINED CAUSE 4 of 4 Normal [facility] ED VITALS FLOW SHEETon 04-07 ED VITALS FLOW SHEET Vitals - PATRICIA LEAL, : 1960, , Vital Sign Flow Sheet [facility] [address] [place] [address] [phone] 03/20/2025 Patient: MINISTERIO LEAL Sex: Male : 1960 Age: 64y Measurements Wt: 68.0 kg, Ht/Andre: 70.0 in, BMI: 21.52 Measured Surekha Time BP MAP HR RR O2Sat ETCO2 Temp n GCS RTS 12:22 109/80 90 83 15 97% 5 03/20/2025 11:46 7 03/20/2025 10:09 108/81 90 94 18 98% 97.9 F 10 03/20/2025 1 of 1 Normal [facility] BRIEF OP NOTon 04-01-2025 BRIEF OP NOT HNO ID: [id number] Author: PAU ALMODOVAR DO Service: ? Author Type: Fellow Type: Brief Op Note Filed: 04/01/2025 12:33 Note Text: BRIEF OPERATIVE / PROCEDURE NOTE LOG ID: [id number] SURGERY/PROCEDURE DATE: 04/01/2025 PROCEDURE START TIME: 12:17 PM PROCEDURE END TIME: 12:30 PM PRE-OP/PRE-PROCEDURE DIAGNOSIS: Chronic abdominal pain [R10.9, G89.29] Chronic mesenteric ischemia (HCC) [K55.1] Abdominal wall pain [R10.9] POST-OP/POST-PROCEDURE DIAGNOSIS: Chronic abdominal pain [R10.9, G89.29] Chronic mesenteric ischemia (HCC) [K55.1] Abdominal wall pain [R10.9] SURGEON(S)/PROCEDURALIST( S) AND SALES VENDOR(S): Surgeons and Role: * Jesus Croft MD - Primary * Pau Almodovar DO - Fellow No Additional Staff SURGERY/PROCEDURE(S): Bilateral T9 thoracic paravertebral nerve block ANESTHESIA: Moderate Sedation FINDINGS: None ESTIMATED BLOOD LOSS: None SPECIMENS: None COMPLICATIONS: None Pau Almodovar DO April 01, 2025 Normal [facility] NURSING PROGon 04-01-2025 NURSING PROG HNO ID: [id number] Author: ALMA HANKS RN Service: Nursing Author Type: Registered Nurse Type: Nursing Progress Note Filed: 04/05/2025 15:36 Note Text: ----- Summary: Postop call ----- No answer voicemail left, [employer] message sent. [facility] OPERATIVE NOon 04-01-2025 OPERATIVE NO HNO ID: [id number] Author: JESUS CROFT MD Service: Pain Management Author Type: Fellow Type: Operative Report Filed: 04/04/2025 08:31 Note Text: ----- Attestation signed by Jesus Croft MD at 04/04/2025 8:31 AM Staff Note I was physically present during the tan portions of the Service. I confirmed the tan findings and directed the treatment plans in decision making. Jesus Croft MD, PhD ----- OPERATIVE/PROCEDURE REPORT : LOG ID: [id number] SURGERY/PROCEDURE DATE: 04/01/2025 INCISION/PROCEDURE START TIME: 12:17 PM INCISION CLOSE/PROCEDURE END TIME: 12:30 PM PRE-OP/PRE-PROCEDURE DIAGNOSIS: Chronic abdominal pain [R10.9, G89.29] Chronic mesenteric ischemia (HCC) [K55.1] Abdominal wall pain [R10.9] POST-OP/POST-PROCEDURE DIAGNOSIS: Chronic abdominal pain [R10.9, G89.29] Chronic mesenteric ischemia (HCC) [K55.1] Abdominal wall pain [R10.9] SURGERY/PROCEDURE(S): Bilateral T9 Nerve Thoracic Paravertebral Block SURGEON(S)/PROCEDURALIST( S) AND SALES VENDOR(S): Surgeons and Role: * Jesus Croft MD - Primary * Pau Almodovar DO - Fellow No Additional Staff The attending was present for the entire procedure. ANESTHESIA: Moderate Sedation Sedation: Fentanyl 50 mcg IV and Versed 2 mg IV were administered. IV sedation was administered incrementally to allow the patient to remain comfortable and conversant throughout the procedure. SEDATION START TIME: 12:17 PM SEDATION END TIME: 12:30 PM SURGERY/PROCEDURE DESCRIPTION: IV was started prior to the procedure.. Mr. Leal was transported to the fluoroscopy suite and was placed in a prone position on the fluoroscopy table. The patient was monitored using pulse oximetry, intermittent blood pressure reading, and 3-lead EKG. Using sterile technique, the skin over the injection site was prepped with povidone-iodine 3 times and draped. The skin overlying the transverse process at the target level T9 on the right was anesthetized with 2 cc of lidocaine 1%. A 25 gauge, 3 1/2 inch spinal needle was slowly advanced under fluoroscopic guidance. The needle position was confirmed to be inferior to the transverse process and lateral to the posterior 1/3 of the vertebral body using AP and lateral fluoroscopic imaging. Negative aspiration for blood or CSF was confirmed. 2 cc of Omnipaque 300 contrast was injected confirming appropriate cephalocaudal contrast spread. A combination of 8.5 mL of lidocaine 1% and 20 mg Kenalog was injected. Then, the skin overlying the transverse process at the target level T9 on the left was anesthetized with 2 cc of lidocaine 1%. A 25 gauge, 3 1/2 inch spinal needle was slowly advanced under fluoroscopic guidance. The needle position was confirmed to be inferior to the transverse process and lateral to the posterior 1/3 of the vertebral body using AP and lateral fluoroscopic imaging. Negative aspiration for blood or CSF was confirmed. 2 cc of Omnipaque 300 contrast was injected confirming appropriate cephalocaudal contrast spread. A combination of 8.5 mL of lidocaine 1% and 20 mg Kenalog was injected. A combination of 17 mL of lidocaine 1% and 40 mg Kenalog was injected in total for both sides. The needle was removed and bleeding was nil. A sterile dressing was applied. The patient was taken to the post-block recovery area for further observation. FINDINGS: None COMPLICATIONS: None ESTIMATED BLOOD LOSS: minimal SPECIMENS: None POST-PROCEDURE AANDP: ASSESSMENT: Purposeful response to verbal or tactile stimulation: yes Neurological Status: Alert and oriented x 3 Post Procedure Pain Level: 0 on a scale of 0-10. Postoperative Nausea/Vomiting (PONV): absent PLAN: 1) s/p Bilateral T9 Nerve Thoracic Paravertebral Block . 2) Return in 3 months for repeat procedure. 3) The treatment plan was discussed with Mr. Leal. Post procedure instructions were reviewed and he voiced understanding. Pau Almodovar DO April 01, 2025 Normal [facility] HISTORY PHYSICALon HISTORY PHYSICAL HNO ID: [id number] Author: JESUS CROFT MD Service: Pain Management Author Type: Fellow Type: H&P Filed: 04/01/2025 12:08 Note Text: ----- Attestation signed by Jesus Croft MD at 04/01/2025 12:08 PM Staff Note I was physically present during the tan portions of the Service. I confirmed the tan findings and directed the treatment plans in decision making. Jesus Croft MD, PhD ----- PROCEDURE EVALUATION AND HISTORY AND PHYSICAL EXAM SUBJECTIVE: Ministerio Leal is a 64 year old man who presents to [facility] for bilateral thoracic paravertebral block bilateral. This is his second (2) procedure. The patient obtained 50 - 75 % relief following the first procedure for 3 months . Focused Review of Systems: PAIN: Pain Pain Assessment: Assessment Patient Status: Awake Tool: Verbal (Numeric Rating or Visual Analog Scale) Pain Level: 10 in flare Pain Location: Abdomen Description: Sharp, Stabbing Duration: Intermittent Denies any contraindications to the procedure including coagulopathy, infection, recent cerebral/myocardial infarct, and hemodynamic instability. 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 Is the patient taking an antithrombotic? Yes If yes, when was the last dose? Plavix 03/24/25, Aspirin 81mg Patient has been instructed to resume antithrombotic medication at least 24 hours after completion of procedure: Yes Current Outpatient Medications Medication Instructions acetaminophen 325 mg-caffeine 40 mg-butalbital 50 mg (FIORICET) per tablet 1 tablet, EVERY 4 HOURS NEEDED aspirin 81 mg, ORAL, DAILY clopidogrel (PLAVIX) 75 mg, DAILY ondansetron orally disintegrating (ZOFRAN ODT) 8 mg disintegrating tablet No dose, route, or frequency recorded. pantoprazole DR (PROTONIX) 20 mg, DAILY rosuvastatin [...] EGD W/O BRSH SPEC VARICIES INJ 08/11/2024 ESOPHAGOGASTRODUODENOSCOP Y TRANSORAL DIAGNOSTIC 09/2014 EGD EXPLORATORY OF ABDOMEN [...] ELCT 2021 stimulator in and removed OBJECTIVE: BP 122/81 Temp (!) 35.9 ?C (96.6 ?F) (Temporal) Resp 18 Ht 177.8 cm (5' 10) Wt 45.4 kg (100 lb) SpO2 100% BMI 14.35 kg/m? Focused Physical Exam: AIRWAY: LUNGS: Breathing unlabored, normal chest excursion CARDIAC: regular rate and rhythm Significant changes in the patient's condition since the last C25 [facility] visit: No Provisional Diagnosis: Chronic abdominal pain [R10.9, G89.29] Chronic mesenteric ischemia (HCC) [K55.1] Abdominal wall pain [R10.9] Planned Procedure: Bilateral thoracic paravertebral block Pau Almodovar DO March 31, 2025 Normal [facility] CNPNon 03-23-2025 CNPN Telephone (PAINMN) ----- MINISTERIO LEAL ([id number]) 1960 M Date Time Provider Department 03/23/25 JULEE SOTO PAINMN During your visit today, we recorded the following information about you: Julee Soto APRN.MAINTENANCE AND REPAIR WORKER 03/23/2025 1:08 PM Signed Patient left Kimani [...] Date Reviewed: 03/04/2025 Reviewed by: Christopher Dumont APRN.MAINTENANCE AND REPAIR WORKER - Fully Assessed Prescriptions as of 03/23/2025 [...] Encounter Status:Closed by JULEE SOTO on 03/23/25 Normal [facility] Absolute lymphocyte countOrd ered By: Alexander Hernandez on 03-22-2025 Lymphocytes Auto (Unsp spec) [#/Vol] 1.33 10*3/uL 0.83-4.51 [facility] Absolute neutrophil countOrd ered By: Alexander Hernandez on 03-22-2025 Neutrophils (Bld) [#/Vol] 6.3 10*3/uL 2.0-7.7 [facility] Amylaseon 03-22-2025 YVONNE 36 U/L Normal 28-100 [facility] Comment on above: Performed By: #### L 100.0100, L501.2450, L500.4050, L501.2400 #### [facility] Laboratory [address] [facility] [place], [address] Anion gap in Serum or Plasma Ordered By: Alexander Hernandez on 03-22-2025 Anion gap [Moles/Vol] 17 mmol/L High 5-15 [facility] Automated lymphocyte count a s percentage of total leukocytesOrdered By: Alexander Hernandez on 03-22-2025 Lymphocytes/100 WBC Auto (Unsp spec) 15.5 % Low 19-41 [facility] BUN/creatinine ratioOrdered By: Alexander Hernandez on 03-22-2025 Urea nitrogen/Creatinine [Mass ratio] 15.4 mg/mg 10-20 [facility] Basophil percentageOrdered B y: Alexander Hernandez on 03-22-2025 Basophils/100 WBC (Bld) 0.7 % 0-1 [facility] Bilirubin, totalOrdered By: Alexander Hernandez on 03-22-2025 Bilirubin [Mass/Vol] 0.55 mg/dL 0.00-1.30 [facility] CBC W/Diff, Automatedon 02-23 Absolute Lymph 1.33 X10 3/uL Normal 0.83-4.51 [facility] Comment on above: Performed By: #### L 100.0100, L501.2450, L500.4050, L501.2400 #### [facility] [address] [place], [address] Absolute Neut 6.3 X10 3/uL Normal 2.0-7.7 [facility] Comment on above: Performed By: #### L 100.0100, L501.2450, L500.4050, L501.2400 #### [facility] [address] [place], [address] Basophils/100 WBC (Bld) 0.7 % Normal 0-1 [facility] Comment on above: Performed By: #### L 100.0100, L501.2450, L500.4050, L501.2400 #### [facility] [address] [place], [address] Eosinophils/100 WBC (Bld) 0.5 % Normal 0-5 [facility] Comment on above: Performed By: #### L 100.0100, L501.2450, L500.4050, L501.2400 #### [facility] [address] [place], [address] Erythrocyte distribution width (RBC) [Ratio] 19.5 % High 11.6-14.6 [facility] Comment on above: Performed By: #### L 100.0100, L501.2450, L500.4050, L501.2400 #### [facility] [address] [place], [address] Hematocrit (Bld) [Volume fraction] 34.1 % Low 40-54 [facility] Comment on above: Performed By: #### L 100.0100, L501.2450, L500.4050, L501.2400 #### [facility] [address] [place], [address] Hemoglobin (Bld) [Mass/Vol] 11.1 g/dL Low 13.0-16.5 [facility] Comment on above: Performed By: #### L 100.0100, L501.2450, L500.4050, L501.2400 #### [facility] [address] [place], [address] IG% 0.300 Normal 0.0-0.9 [facility] Comment on above: Result Comment: IG% - Immature Granulocytes (promyelocytes, myelocytes and metamyelocytes) > 1% indicates that a LEFT SHIFT is Present. Performed By: #### L 100.0100, L501.2450, L500.4050, L501.2400 #### [facility] [address] [place], [address] Lymphocytes/100 WBC (Bld) 15.5 % Low 19-41 [facility] Comment on above: Performed By: #### L 100.0100, L501.2450, L500.4050, L501.2400 #### [facility] [address] [place], [address] MCH (RBC) [Entitic mass] 22.6 pg Low 27.0-32.0 [facility] Comment on above: Performed By: #### L 100.0100, L501.2450, L500.4050, L501.2400 #### [facility] [address] [place], [address] MCHC (RBC) [Mass/Vol] 32.6 g/dL Normal 32-36 [facility] Comment on above: Performed By: #### L 100.0100, L501.2450, L500.4050, L501.2400 #### [facility] [address] [place], [address] MCV (RBC) [Entitic vol] 69.3 fL Low 80-94 [facility] Comment on above: Performed By: #### L 100.0100, L501.2450, L500.4050, L501.2400 #### [facility] [address] [place], [address] Monocytes/100 WBC (Bld) 10.2 % High 0-10 [facility] Comment on above: Performed By: #### L 100.0100, L501.2450, L500.4050, L501.2400 #### [facility] [address] [place], [address] Neutrophils/100 WBC (Bld) 72.8 % High 47-70 [facility] Comment on above: Performed By: #### L 100.0100, L501.2450, L500.4050, L501.2400 #### [facility] [address] [place], [address] Nucleated RBC (Bld) [#/Vol] 0 10*3/uL Normal 0-5 [facility] Comment on above: Performed By: #### L 100.0100, L501.2450, L500.4050, L501.2400 #### [facility] [address] [place], [address] Platelet mean volume (Bld) [Entitic vol] 11.6 fL Normal 6.2-12.0 [facility] Comment on above: Performed By: #### L 100.0100, L501.2450, L500.4050, L501.2400 #### [facility] [address] [place], [address] Platelets (Bld) [#/Vol] 319 10*3/uL Normal 150-450 [facility] Comment on above: Performed By: #### L 100.0100, L501.2450, L500.4050, L501.2400 #### [facility] [address] [place], [address] RBC (Bld) [#/Vol] 4.92 10*6/uL Normal 4.6-6.2 [facility] Comment on above: Performed By: #### L 100.0100, L501.2450, L500.4050, L501.2400 #### [facility] [address] [place], [address] RDW SD 47.2 fl High 35.1-43.9 [facility] Comment on above: Performed By: #### L 100.0100, L501.2450, L500.4050, L501.2400 #### [facility] [address] [place], [address] WBC (Bld) [#/Vol] 8.6 10*3/uL Normal 4.4-11.0 [facility] Comment on above: Performed By: #### L 100.0100, L501.2450, L500.4050, L501.2400 #### [facility] [address] [place], [address] Carbon dioxide, total [Moles /volume] in Central venous bloodOrdered By: Alexander Hernandez on 03-22-2025 CO2 [Moles/Vol] 17.6 mmol/L Low 21.0-32.0 [facility] Chest PA and Lateralon 03-22 Chest PA and Lateral [facility] Imaging Services [address] [place] [address] Chest PA and Lateral MR#: [id number] Acct: [id number] Name: MINISTERIO LEAL Reggie Rep #: [id number] : 1960 James 64 From: George Barnes MD PCP: Dr. Hitesh Dai MD Status: REG ER Study: Chest PA and Lateral Date of Exam: 03/22/25 Exam# [id number] Ordering Dr: Alexander Hernandez MD PROCEDURE: CHEST PA AND LATERAL 03/22/2025 REASON FOR EXAM: COUGH TECHNIQUE: Procedure Code: RADCXR Modality: DX Procedure: CHEST PA AND LATERAL COMPARISON: None FINDINGS: Lung volumes are increased. Heart size and mediastinal configuration are within normal limits. There is no focal infiltrate or consolidation. There is no pneumothorax or effusion. There is no acute bony abnormality. Hardware is noted in the cervical region. Aortic calcifications are visible. A stent is visible in the upper abdomen. RAD/Chest PA and Lateral IMPRESSION: There are increased lung volumes with no acute infiltrate or consolidation. Reading Location: [facility] CC: Dr. Alexander Hernandez MD; Dr. Hitesh Dai MD Life Skills Instructor: Signed Normal [facility] Chloride assayOrdered By: Neeraj Hernandez on 03-22-2025 Chloride [Moles/Vol] 100 mmol/L 98-108 [facility] Comprehensive Metabolic Prof ilon 03-22-2025 ALT [Catalytic activity/Vol] 17 U/L Normal <=46 [facility] Comment on above: Performed By: #### L 100.0100, L501.2450, L500.4050, L501.2400 #### [facility] Laboratory [address] [facility], [address] Emergency Department Summary on 03-22-2025 Emergency Department Summary [facility] Medical Records Department [address] [place] [address] Emergency Department Summary 03/22/25 MR#: [id number] Acct: [id number] Name: MINISTERIO LEAL Rep #: [id number] : 1960 64 From: Alexander Hernandez MD PCP: Dr. Hitesh Dai MD Status:DEP ER Location: ED HPI HPI - GI History of Present Illness Chief Complaint: Abd Pain Informant: patient Abdominal Pain/Flank Pain Onset: Days Context: Gradual Onset Timing: Continuous Quality: Sharp and Stabbing Location: Diffuse Current Severity: Moderate Maximum Severity: Moderate Worsened by: Nothing Relieved by: Nothing Nausea/Vomiting/Emesis GI Symptom: Negative for Nausea or Vomiting Diarrhea/Melena/Hematoche maru GI Symptom: Negative for Diarrhea, Melena or Hematochezia Associated Symptoms Associated Symptoms: Negative for Dysuria, Frequency, Hematuria or Urgency Narrative Narrative: 64-year-old male history of chronic abdominal pain. Has stents in both his superior mesenteric artery and celiac stents. Patient's had prior cholecystectomy and partial gastrectomy due to ulcers. He has chronic abdominal pain to really not sure of the source. He sees pain management for this. He has had some type of spinal nerve block to helping with this and has spinal blocks pending in about 10 days. States he is having recurrent pain last several days. Denies nausea, vomiting or diarrhea. Denies fever or chills. Denies dysuria. Also states he has had URI symptoms last several days with wheezing. He is a smoker. Prior similar symptoms: Yes Recent Illness/Hospitalization: No PFSH PFSH Medical History Marijuana use Restless legs History of stress test Liver failure Superior mesenteric artery syndrome Mesenteric ischemia, chronic Wears glasses Arthritis High cholesterol Migraine headache Injury of head and neck History of GI bleed Difficulty swallowing History of ulceration History of IBS History of diverticulitis Smoker Celiac artery stenosis Mesenteric artery stenosis Home Medications ???Medication ???Instructions ???Recorded ???Last Taken ???Type clopidogrel 75 mg tablet 75 mg PO QHS BLOOD THINNER 7 01/04/23 History rosuvastatin 10 mg tablet 10 mg PO QHS CHOLESTEROL 18 11/11/22 History aspirin 81 mg tablet,delayed 81 mg PO DAILY HEART HEALTH 01/04/23 History release pantoprazole 20 mg tablet,delayed 20 mg PO QHS ACID REFLUX 11/12/22 11/11/22 History release oxycodone 5 mg tablet 5 mg PO TID PRN PRN pain 09/26/24 Unknown History Allergy/AdvReac Type Severity Reaction Status Date / Time senna Allergy Anaphylaxis Verified 03/22/25 10:40 omeprazole AdvReac Other Verified 03/22/25 10:40 Family History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 acetaminophen 325 mg-caffeine 40 mg-butalbital 50 [...] (HCC) [K56.699] 08/10/2024 Encounter Status:Closed by JELLY BRAGG on 01/27/25 [facility] ANKLE COMPLETE RTon 01-25-20 ANKLE COMPLETE RT [place] [address] Patient: MINISTERIO LEAL Mikael Phone#: : 1960 Age: 64 Gender: M Pt. Type: ER Account: [id number] Location: 052 Ordering: REECE SANDERS Exam Date: 01/24/2025/8:02 Family Phys: HITESH DAI Charge Code: [id number] Physician: Phelps Order #: [id number] Dose#: PROCEDURE: X-RAY ANKLE COMPLETE RT MIN [...] Delia Castillo MD on 01/24/2025 at 8:44 Normal [facility] ED MED ADMINISTRATION DETAIL on 01-24-2025 ED MED ADMINISTRATION DETAIL Palliative Care Nurse Practitioner Medication Administration Record [address] [address] [phone] 01/24/2025 Patient: MINISTERIO LEAL Sex: Male : 1960 Age: 64y MEASUREMENTS: [...] taking this medication. - 08:14 Azalea Bales, R.NClaudia MEDICATION) Nii, R.N. Not Scanned Ondansetron 08:12 0804 Ondansetron (Zofran) ODT PO 4 mg given. Allergies Given (Zofran) ODT PO 4 verified and confirmed 5 rights. Information reviewed with patient 08:12 01/24/2025 mg (NOW x1) including reason for taking this medication. - 08:12 Azalea Rosa, Anastacia.N. R.N. Scanned OxyCODONE-APAP 08:58 01/24 OxyCODONE-APAP 5-325 (Percocet) PO 1 tab given. Given 5-325 (Percocet) PO Allergies verified and confirmed 5 rights. Information reviewed with 08:58 01/24/2025 1 tab (NOW x1, patient including reason for taking this medication. - 08:59 Azalea Bales R.N. HIGH ALERT Stephanie Bales Scanned MEDICATION) 1 of 1 Normal [facility] ED NURSES CLINICAL NOTEon ED NURSES CLINICAL NOTE Nurse Narrative Nurse Clinical Narrative [place] [address] [place] [address] [phone] 01/24/2025 07:38:00 Patient: MINISTERIO LEAL Sex: Male : 1960 Age: 64y Disposition: Discharge to Home Disposition Decision Time: 08:58 01/24/2025 Departure Time: 09:03 01/24/2025 TRIAGE Arrived by private vehicle. Historian: (patient). Accompanied by family. Patient has a primary care physician. Primary physician (Suhas). Triage time: 07:40 01/24/2025. Acuity: LEVEL 4. [...] 96% Temperature: 97.2 F. Pain level now 04/01. -- 07:45 01/24/25 EDT Azalea Bales R.N. Measurements: 07:44 01/24/25 Wt: 49.9 kg, Ht/Andre: 70.0 in, BMI: 15.78 -- 07:44 01/24/25 ZELALEMT Azalea Bales R.N. Medications: Plavix 75 mg tablet -- 07:42 01/24/25 ANIBAL Bales R.N. aspirin 81 mg tablet -- 07:43 01/24/25 EDT Azalea Bales R.N. 1 of 4 Nurse Narrative Crestor oral -- 07:43 01/24/25 ZELALEMT Azalea Bales R.N. Protonix 40 mg tablet,delayed release -- 07:43 01/24/25 EDT Azalea Bales R.N. 07:40 01/24/25. Preferred [facility]acy: [facility]. -- 07:45 01/24/25 ZELALEMT Azalea Bales R.N. Allergies: senna -- 07:41 01/24/25 ZELALEMT Azalea Bales R.N. omeprazole -- 07:42 01/24/25 ZELALEMT Azalea Bales R.N. Problems: Ulcer of esophagus [...] harming or killing yourself?. -- 07:45 01/24/25 ZELALEMT Azalea Bales R.N. 07:41 01/24/25. FALL RISK ASSESSMENT: [...] BP: 110/62 MAP: 78. -- 09:24 01/24/25 ANIBAL Bales R.N. Departure time: 09:03 01/24/2025. Condition at departure: improved. No learning barriers present. Discharge instructions provided and reviewed with the patient. Reviewed medication(s). Reviewed referral to an orthopedic surgeon and a primary care physician for followup. Activity restrictions reviewed. Patient verbalized understanding. Written instructions provided in Guatemalan. The patient was discharged by (more content not included)... Normal [facility] ED ORDER SHEET (CPOE ONLY)on 01-24-2025 ED ORDER SHEET (CPOE ONLY) Order Sheet Order Sheet [place] [address] [address] [place] [address] [phone] 01/24/2025 Patient: MINISTERIO LEAL Sex: Male : 1960 Age: 64y MEASUREMENTS: Wt: 49.9 kg, Ht/Andre: 70.0 in, BMI: 15.78 ALLERGIES: omeprazole, senna MEDICATION/IV/DRIP/FLUID ORDERS Order Description Priority Entered Acknowledged Completed MORPHine IM4 mg (NOW x1, 07:47 01/24/2025 07:48 08:14 HIGH ALERT MEDICATION) Reece Sanders, 01/24/2025 01/24/2025 Azalea Chavez, Anastacia.N. R.N. Ondansetron (Zofran) ODT PO4 07:47 01/24/2025 07:48 08:12 mg (NOW x1) Reece Sanders, 01/24/2025 01/24/2025 Azalea Chavez, R.N. R.N. OxyCODONE-APAP 5-325 08:52 01/24/2025 08:54 08:59 [...] 01/24/2025 07:48 07:56 Reece Sanders, 01/24/2025 01/24/2025 Sharifa Bales, Azalea Bales, RClaudiaN. RClaudiaN. Reason for Study: Trauma/Injury STAFF ORDERS Order Description Priority Entered Acknowledged Collected Completed Orthopedic Boot 11:39 01/24/2025 Reece Sanders D.O. Crutches 11:39 01/24/2025 Reece Sanders D.O. [Electronically signed by Reece Sanders D.O. (01/24/2025 09:09 EDT)] [Electronically signed by Reece Sanders D.O. (01/24/2025 11:39 EDT)] 2 of 2 Normal [facility] ED PHYSICIAN CLINICAL REPORT on 01-24-2025 ED PHYSICIAN CLINICAL REPORT Narrative Physician Clinical Narrative [address] [place] [address] [phone] 01/24/2025 07:38:00 Patient: MINISTERIO LEAL Sex: Male : 1960 Age: 64y Disposition: [...] right ankle. The injury happened 8 hours [employer]ACH[employer]. (8 hours prior to arrival patient had [...] Date: 01/24/2025 08:04:00 EDT MsgRcvd: 01/24/2025 08:[address] [address] Patient: LEAL MINISTERIO Mikael Phone#: : 1960 Age: 64 Gender: M Pt. Type: ER Account: [id number] Location: [facility] Ordering: REECE SANDERS Exam Date: 01/24/2025/8:02 Family Phys: HITESH SUHAS Charge Code: [id number] Physician: Phelps Order #: [id number] Dose#: PROCEDURE: X-RAY ANKLE COMPLETE RT MIN [...] 01/24/2025 08:04:00 EDT MsgRcvd: 01/24/2025 08:[address] [address] Patient: MINISTERIO LEAL Phone#: : 1960 Age: 64 Gender: M Pt. Type: ER Account: [id number] Location: 052 Ordering: REECE SANDERS Exam Date: 01/24/2025/7:59 3 of 5 Narrative Family Phys: HITESH DAI Charge Code: [id number] Physician: Phelps Order #: [id number] Dose#: PROCEDURE: X-RAY FOOT RT COMPLETE MIN [...] as needed for pain for 3 days, dispen (more content not included)... Normal [facility] ED [facility] 01-24-2025 ED [facility] [address] [place] [address] [phone] 01/24/2025 Patient: MINISTERIO LEAL Sex: Male : 1960 Age: 64y Item Facility Professional Category Description Code Code Quantity Fee Total Nurse/E/M EMERGENCY 256434 1 $0.00 $0.00 DEPARTMENT VISIT HIGH/URGENT SEVERITY (06940-63) Nurse/IV/IM/Infusions IM/SQ (32129) 911029 1 $0.00 $0.00 Grand Total $0.00 Providers Reece Sanders D.O. Chief Complaint Injury to right foot and right ankle. Principal Diagnosis Sprain of the right ankle. 1 of 2 [facility] ICD-10 Codes S93.401A: Sprain of unspecified ligament of right ankle, initial encounter 2 of 2 Normal [facility] ED VISIT SUMMARYon ED VISIT SUMMARY Visit Overview Visit Overview [address] [place] [address] [phone] 01/24/2025 Patient: MINISTERIO LEAL Sex: Male : 1960 Age: 64y 01/24/2025 [...] OF THE RIGHT ANKLE 3 of 3 Normal [facility] ED VITALS FLOW SHEETon 01-24 ED VITALS FLOW SHEET Vitals Vital Sign Flow Sheet [address] [place] [address] [phone] 01/24/2025 Patient: MINISTERIO LEAL Sex: Male : 1960 Age: 64y Measurements Wt: 49.9 kg, Ht/Andre: 70.0 in, BMI: 15.78 Measured Time BP MAP HR RR O2Sat ETCO2 Temp Pain GCS RTS 09:00 01/24/2025 110/62 78 07:45 01/24/2025 99/72 81 98 16 96% 97.2 F 10 1 of 1 Normal [facility] FOOT COMPLETE RTon 5 FOOT COMPLETE RT [place] [address] [place], [place] [address] Patient: MINISTERIO LEAL Phone#: : 1960 Age: 64 Gender: M Pt. Type: ER Account: [id number] Location: 2 Ordering: REECE SANDERS Exam Date: 01/24/2025/7:59 Family Phys: HITESH DAI Charge Code: [id number] Physician: Phelps Order #: [id number] Dose#: PROCEDURE: X-RAY FOOT RT COMPLETE MIN 3 VIEWS COMPARISON: None. INDICATIONS: Trauma. FINDINGS: BONES: Diffuse bony demineralization. No fracture or dislocation. No acute osseous abnormality. SOFT TISSUES: Negative. No visible soft tissue swelling. EFFUSION: None visible. OTHER: Negative. CONCLUSION: 1. No acute osseous abnormality Dictated by: Delia Castillo MD on 01/24/2025 at 8:38 Approved by: Delia Castillo MD on 01/24/2025 at 8:42 Normal [facility] BRIEF OP NOTon 01-05-2025 BRIEF OP NOT HNO ID: [id number] Author: JESUS CROFT MD Service: Pain Management Author Type: Fellow Type: Brief Op Note Filed: 01/05/2025 11:39 Note Text: ----- Attestation signed by Jesus Croft MD at 01/05/2025 11:39 AM Staff Note I was physically present during the tan portions of the Service. I confirmed the tan findings and directed the treatment plans in decision making. Jesus Croft MD, PhD ----- BRIEF OPERATIVE / PROCEDURE NOTE LOG ID: [id number] Surgery/Procedure Date: 01/05/2025 Incision/Procedure Start Time: 10:04 AM Incision Close/Procedure End Time: 10:10 AM Surgeon(s)/Proceduralist( s) and Ophthalmology Technician(s): Surgeons and Role: * Jesus Croft MD - Primary * Andrew Jo DO - Fellow No Additional Staff Procedure(s): bilateral T9 paravertebral block Anesthesia: Procedural Sedation Findings: None Estimated Blood Loss: 0 ml Specimens: None Complications: None Pre-Op/Pre-Procedure Diagnosis: Chronic abdominal pain [R10.9, G89.29] Chronic mesenteric ischemia (HCC) [K55.1] Post-Op/Post-Procedure Diagnosis: Chronic abdominal pain [R10.9, G89.29] Chronic mesenteric ischemia (HCC) [K55.1] SIGNATURE: Andrew Jo DO PATIENT NAME: Ministerio Leal DATE: January 05, 2025 TIME: 10:14 AM PAGER/CONTACT #: [phone] [facility] NURSING PROGon 01-05-2025 NURSING PROG HNO ID: [id number] Author: BHARATI GILLIS RN Service: ? Author Type: Registered Nurse Type: Nursing Progress Note Filed: 01/10/2025 08:35 Note Text: ----- Summary: post call ----- No answer voicemail left - If patient has a MyChart to please respond with the information via the MyChart message. If patient does not have MyChart patient was instructed to call [phone] option 3 to speak to a nurse. Normal [facility] OPERATIVE NOon 01-05-2025 OPERATIVE NO HNO ID: [id number] Author: JESUS CROFT MD Service: Pain Management Author Type: Fellow Type: Operative Report Filed: 01/05/2025 10:28 Note Text: ----- Attestation signed by Jesus Croft MD at 01/05/2025 10:28 AM Staff Note I was physically present during the tan portions of the Service. I confirmed the tan findings and directed the treatment plans in decision making. Jesus Croft MD, PhD ----- OPERATIVE/PROCEDURE REPORT : Patient Name: Ministerio Leal LOG ID: [id number] SURGERY/PROCEDURE DATE: 01/05/2025 Pre-Procedure Note SUBJECTIVE: Ministerio Leal is a 64 year old male who presents to [facility] for chronic abdominal pain, here to receive bilateral thoracic paravertebral block The pain is located in his epigastric region, and ranges from 5-9/10 for the past several years. Patient denies any contraindications to the procedure including coagulopathy, infection, recent cerebral/myocardial infarct, and hemodynamic instability. 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 OBJECTIVE: BP 120/66 [...] discussed. I verify that I personally obtained Ministerio Leal's consent prior to the start of the procedure and the signed consent can be found on the patient's chart. Andrew Jo DO January 05, 2025 Procedure: INCISION/PROCEDURE START TIME: 10:04 AM INCISION CLOSE/PROCEDURE END TIME: 10:10 AM PRE-OP/PRE-PROCEDURE DIAGNOSIS: Chronic abdominal pain [R10.9, G89.29] Chronic mesenteric ischemia (HCC) [K55.1] POST-OP/POST-PROCEDURE DIAGNOSIS: Chronic abdominal pain [R10.9, G89.29] Chronic mesenteric ischemia (HCC) [K55.1] SURGERY/PROCEDURE(S): Bilateral Thoracic Paravertebral Block SURGEON(S)/PROCEDURALIST( S) AND SALES VENDOR(S): Surgeons and Role: * Jesus Croft MD - Primary * Andrew Jo DO - Fellow No Additional Staff [...] was started prior to the procedure.. Mr. Leal was transported to the fluoroscopy suite and [...] The treatment plan was discussed with Mr. Leal. Post procedure instructions were reviewed and he voiced understanding. Andrew Jo DO 01/05/2025 Normal [facility] HISTORY PHYSICALon HISTORY PHYSICAL HNO ID: [id number] Author: JESUS CROFT MD Service: Pain Management Author Type: Fellow Type: H&P Filed: 01/05/2025 09:35 Note Text: ----- Attestation signed by Jesus Croft MD at 01/05/2025 9:35 AM Staff Note I was physically present during the atn portions of the Service. I confirmed the tan findings and directed the treatment plans in decision making. Jesus Croft MD, PhD ----- PROCEDURE EVALUATION AND HISTORY AND PHYSICAL EXAM SUBJECTIVE: Ministerio Leal is a 64 year old man who presents to [facility] for Bilateral T9 paravertebral block . This is his first injection. Focused Review of Systems: PAIN: He has 9/10 pain which is intermittent and has been ongoing for years. Denies any contraindications to the procedure including coagulopathy, infection, recent cerebral/myocardial infarct, and hemodynamic instability. 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 Is the patient [...] EGD W/O BRSH SPEC VARICIES INJ 08/11/2024 ESOPHAGOGASTRODUODENOSCOP Y TRANSORAL DIAGNOSTIC 09/2014 EGD EXPLORATORY OF ABDOMEN [...] the patient's condition since the last C[facility] visit: No Provisional Diagnosis: Chronic abdominal pain [R10.9, G89.29] Chronic mesenteric ischemia (HCC) [K55.1] Planned Procedure: Bilateral T9 paravertebral block Thomas Jacinto MD January 04, 2025 Normal [facility] CNOVon 12-06-2024 CNOV Office Visit (PAINMN ) ----- MINISTERIO LEAL ([id number]) 1960 M Date Time Provider Department 12/06/24 2:30 PM JESUS CROFT PAINMN During your visit today, we recorded the following information about you: Temperature Pulse Blood pressure Weight 98.5 degrees 79/minute 117/83 45.8 kg Height 1.778 m Jesus Croft MD 12/07/2024 11:[address] 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 Ministerio reports experiencing abdominal pain since his late teens, initially described as infrequent episodes of severe pain. He recalls being told by his family doctor that he had a nervous stomach and would grow out of it. However, the frequency and severity of the pain have increased with age. 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 Ministerio has a history of chronic mesenteric ischemia [...] enjoying hiking [place] [address] 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 [...] EGD W/O BRSH SPEC VARICIES INJ 08/11/2024 ESOPHAGOGASTRODUODENOSCOP Y TRANSORAL DIAGNOSTIC 09/2014 EGD EXPLORATORY OF ABDOMEN [...] artery angioplasty PAST SURGICAL HISTORY OF 08/2016 (more content not included)... Normal [facility] ANES POSTPROC EVALon 025 ANES POSTPROC EVAL HNO ID: [id number] Author: REECE GIANG MD Service: Anesthesiology Author Type: Anesthesiologist Type: Anesthesia Postprocedure Evaluation Filed: 11/04/2024 08:24 Note Text: POST ANESTHESIA EVALUATION NOTE : 1960 Procedure Summary Date: 10/29/24 Room / Location: [place] OR / [place] OR Anesthesia Start: 1156 Anesthesia Stop: 1328 [...] Vitals Vitals Value Taken Time BP 118/68 10/29/24 1900 Temp 36.6 ?C (97.9 ?F) 10/29/24 1900 HR SpO2 71 10/29/24 1900 Resp 14 10/29/24 1900 SpO2 99 % 10/29/24 1900 Post Anesthesia Patient Status Patient Evaluation: PACU. [...] Documentation SIGNATURE: Reece Giang MD PATIENT NAME: Ministerio Leal DATE: November 04, 2024 TIME: 8:24 AM CSN: [id number] [facility] 11-02-2024 ANDI Telephone ([id number]) ----- MINISTERIO LEAL ([id number]) 1960 M Date Time Provider Department 11/02/24 LACEY ARROYO3 During your visit today, we recorded the following information about you: De Osei LPN 11/02/2024 10:43 AM Signed Patient called, verified by name and . Stated that Dr. Arroyo had referred patient to GI at [facility] and patient saw Dr. Garcia, who told [...] needs to be done next. Please advise. De Osei LPN 11/03/2024 9:[address] Arroyo, patient should seek a second opinion from GI. Reccomends patient to see Dr. Hitesh Price at [facility]. Called and gave patient information, patient voiced understanding. Referral placed. Shreya DWYER Allergies As of Date: 11/02/2024 Noted Allergy Reaction OMEPRAZOLE 05/26/2015 14 - Other: See Comments Comments: Severe Headaches SENNA 02/09/2023 16 - Unknown Comments: Bottom lip swelled. Stopped swelling when senna dc Date Reviewed: 10/29/2024 Reviewed by: Maral Harris RN - Fully Assessed Reason for Visit: [...] stricture (HCC) [K56.699] 08/10/2024 Encounter Status:Closed by DE OSEI on 11/03/24 [facility] ANES PRE-OPon 10-29-2024 ANES PRE-OP HNO ID: [id number] Author: REECE GIANG MD Service: Anesthesiology Author [...] MAC vs GA w/ vascular intervention. Beta Rudolph Monitoring Plan Monitoring plan: standard ASA. Post Procedure Analgesic Plan Postoperative analgesic plan: multimodal analgesia. Informed Consent Anesthetic risks, benefits, alternatives, personnel and consent discussed: yes. Patient / Responsible Republican agrees to proceed: yes Patient / Surrogate [...] Surgery/Procedure. SIGNATURE: Reece Giang MD PATIENT NAME: Ministerio Leal DATE: October 29, 2024 TIME: 10:47 AM CSN: [id number] [facility] BRIEF OP NOTon 10-29-2024 BRIEF OP NOT HNO ID: [id number] Author: ARELY CRUZ DO Service: Vascular Surgery Author Type: Physician Type: Brief Op Note Filed: 10/29/2024 12:58 Note Text: BRIEF OPERATIVE / PROCEDURE NOTE LOG ID: [id number] Surgery/Procedure Date: 10/29/2024 Incision/Procedure Start Time: 12:20 PM Incision Close/Procedure End Time: Surgeon(s)/Proceduralist( s) and Ophthalmology Technician(s): Surgeons and Role: * Arely Cruz DO - Primary * Socorro Melendez DO - Resident - Assisting Physician Ophthalmology Technician: Blank Aldridge PA-C Wool Handler: Zarina Ulloa SA Procedure(s): US guided right [...] note) SIGNATURE: Arely Cruz DO PATIENT NAME: Ministerio Leal DATE: October 29, 2024 TIME: 12:56 PM Normal [facility] CBC panel Auto (Bld)on 10-29 Erythrocyte distribution width (RBC) [Ratio] 18.5 % High 11.5-15.0 [facility] Comment on above: Order Comment: Speci men Type: BLOOD SPECIMENOrdering Facility: [facility] Address: [address] [place] [address] Performed By: #### 5 8410-2 ####[facility] [id number] [place] [address] [place] Hematocrit (Bld) [Volume fraction] 36.1 % Low 39.0-51.0 [facility] Comment on above: Order Comment: Speci men Type: BLOOD SPECIMENOrdering Facility: [facility] Address: [address] [place] [address] Performed By: #### 5 8410-2 ####[facility] [id number] [place] [address] [place] Hemoglobin (Bld) [Mass/Vol] 11.4 g/dL Low 13.0-17.0 [facility] Comment on above: Order Comment: Speci men Type: BLOOD SPECIMENOrdering Facility: [facility] Address: [address] [place] [address] Performed By: #### 5 8410-2 ####[facility] [id number] [place] [address] [place] MCH (RBC) [Entitic mass] 23.3 pg Low 26.0-34.0 [facility] Comment on above: Order Comment: Speci men Type: BLOOD SPECIMENOrdering Facility: [facility] Address: [address] [place] [address] Performed By: #### 5 8410-2 ####[facility]ITALMARITALIA [id number] [place] [address] [place] MCHC (RBC) [Mass/Vol] 31.6 g/dL Normal 30.5-36.[address] [facility] Comment on above: Order Comment: Speci men Type: BLOOD SPECIMENOrdering Facility: [facility] Address: [address] [place] [address] Performed By: #### 5 8410-2 ####[facility]AT[facility]ICIAAC[facility] [id number] [place] [address] [place] MCV (RBC) [Entitic vol] 73.8 fL Low 80.0-100.0 [facility] Comment on above: Order Comment: Speci men Type: BLOOD SPECIMENOrdering Facility: [facility] Address: [address] [place] [address] Performed By: #### 5 8410-2 ####[facility] [id number] [place] [address] [place] [facility] Nucleated RBC (Bld) [#/Vol] 10*3/uL Normal <0.01 [facility] Comment on above: Order Comment: Speci men Type: BLOOD SPECIMENOrdering Facility: [facility] Address: [address] [place] [address] Performed By: #### 5 8410-2 ####[facility] [id number] [place] [address] [place] Platelet mean volume (Bld) [Entitic vol] 11.0 fL Normal 9.0-12.7 [facility] Comment on above: Order Comment: Speci men Type: BLOOD SPECIMENOrdering Facility: [facility] Address: [address] [place] [address] Performed By: #### 5 8410-2 ####[facility] INSTITUTENCLIA [id number] [place] [address] [place] Platelets (Bld) [#/Vol] 203 10*3/uL Normal 150-400 [facility] Comment on above: Order Comment: Speci men Type: BLOOD SPECIMENOrdering Facility: [facility] Address: [address] [place] [address] Performed By: #### 5 8410-2 ####[facility]OS[facility]ITALWNCLIA [id number] [place] [address] [place] RBC (Bld) [#/Vol] 4.89 10*6/uL Normal 4.20-6.00 [facility] Comment on above: Order Comment: Speci men Type: BLOOD SPECIMENOrdering Facility: [facility] Address: [address] [place] [address] Performed By: #### 5 8410-2 ####[facility] INSTITUTENCA [id number] [place] [address] [place] WBC (Bld) [#/Vol] 7.11 10*3/uL Normal 3.70-11.00 [facility] Comment on above: Order Comment: Speci men Type: BLOOD SPECIMENOrdering Facility: [facility] Address: [address] [place] [address] Performed By: #### 5 8410-2 ####[facility] INSTITUTENCLIA [id number] [place] [address] [place] Comprehensive metabolic 2000 panelon 10-29-2024 Albumin [Mass/Vol] 4.4 g/dL Normal 3.9-4.9 [facility] Comment on above: Order Comment: Speci men Type: BLOOD SPECIMENOrdering Facility: [facility] Address: [address] [place] [address] Performed By: #### 2 4323-8 ####[facility] INSTITUTENCLIA [id number] [place] [address] [place] ALP [Catalytic activity/Vol] 192 U/L High 38-113 [facility] Comment on above: Order Comment: Speci men Type: BLOOD SPECIMENOrdering Facility: [facility] Address: [address] [place] [address] Performed By: #### 2 4323-8 ####[facility]OSPITALWDCLIA [id number] [place] [address] [place] ALT [Catalytic activity/Vol] 8 U/L Low 10-54 [facility] Comment on above: Order Comment: Speci men Type: BLOOD SPECIMENOrdering Facility: [facility] Address: [address] [place] [address] Performed By: #### 2 4323-8 ####[facility]IT[facility] [id number] [place] [address] [place] Anion gap [Moles/Vol] 10 mmol/L Normal 8-[address] [facility] Comment on above: Order Comment: Speci men Type: BLOOD SPECIMENOrdering Facility: [facility] Address: [address] [place] [address] Performed By: #### 2 4323-8 ####[facility] [id number] [place] [address] [place] AST [Catalytic activity/Vol] 13 U/L Low 14-40 [facility] Comment on above: Order Comment: Speci men Type: BLOOD SPECIMENOrdering Facility: [facility] Address: [address] [place] [address] Performed By: #### 2 4323-8 ####[facility] [id number] [place] [address] [place] Bilirubin [Mass/Vol] 0.3 mg/dL Normal 0.2-1.3 [facility] Comment on above: Order Comment: Speci men Type: BLOOD SPECIMENOrdering Facility: [facility] Address: [address] [place] [address] Performed By: #### 2 4323-8 ####[facility] MILLTOWNCLIA [id number] [place] [address] [place] Calcium [Mass/Vol] 9.5 mg/dL Normal 8.5-10.2 [facility] Comment on above: Order Comment: Speci men Type: BLOOD SPECIMENOrdering Facility: [facility] Address: [address] [place] [address] Performed By: #### 2 4323-8 ####[facility] MILLTOWNCLIA [id number] [place] [address] [place] Chloride [Moles/Vol] 103 mmol/L Normal 98-107 [facility] Comment on above: Order Comment: Speci men Type: BLOOD SPECIMENOrdering Facility: [facility] Address: [address] [place] [address] Performed By: #### 2 4323-8 ####[facility] MILLTOWNCLIA [id number] [place] [address] [place] CO2 [Moles/Vol] 26 mmol/L Normal 22-30 [facility] Comment on above: Order Comment: Speci men Type: BLOOD SPECIMENOrdering Facility: [facility] Address: [address] [place] [address] Performed By: #### 2 4323-8 ####[facility] MILLTOWNCLIA [id number] [place] [address] [place] Creatinine [Mass/Vol] 1.05 mg/dL Normal 0.73-1.[address] [facility] Comment on above: Order Comment: Speci men Type: BLOOD SPECIMENOrdering Facility: [facility] Address: [address] [place] [address] Performed By: #### 2 4323-8 ####[facility] MILLTOWNCLIA [id number] [place] [address] [place] Creatinine and Glomerular filtration rate.predicted panel (S/P/Bld) 80 mL/min/1.73m??? Normal >=60 [facility] Comment on above: Order Comment: Bri ni Type: BLOOD SPECIMENOrdering Facility: [facility] Address: [address] [place] [address] Result Comment: Josi mated Glomerular Filtration Rate (eGFR) is calculated using the 2020 CKD-EPI creatinine equation. This equation utilizes serum creatinine, sex, and age as parameters. The creatinine assay has traceable calibration to isotope dilution-mass spectrometry. Refer to KDIGO guidelines for clinical interpretation. In patients with unstable renal function, e.g. those with acute kidney injury, the eGFR may not accurately reflect actual GFR. Performed By: #### 2 4323-8 ####[facility] [id number] [place] [address] [place] Glucose [Mass/Vol] 90 mg/dL Normal 74-99 [facility] Comment on above: Order Comment: Bri ni Type: BLOOD SPECIMENOrdering Facility: [facility] Address: [address] [place] [address] Result Comment: The [place] Diabetes Association (ADA) provides guidance for cutoff [...] Standards of Medical Care in Diabetes 2016, [place] [employer] Association. Diabetes Care. 2016.39(Suppl 1). Performed By: #### 2 4323-8 ####[facility] [id number] [place] [address] [place] Potassium [Moles/Vol] 3.8 mmol/L Normal 3.7-5.[address] [facility] Comment on above: Order Comment: Speci men Type: BLOOD SPECIMENOrdering Facility: [facility] Address: [address] [place] [address] Performed By: #### 2 4323-8 ####[facility] SUNDEEPWNCLIA [id number] [place] [address] [place] Protein [Mass/Vol] 7.5 g/dL Normal 6.3-8.0 [facility] Comment on above: Order Comment: Speci men Type: BLOOD SPECIMENOrdering Facility: [facility] Address: [address] [place] [address] Performed By: #### 2 4323-8 ####[facility] INSTITUTENCLIA [id number] [place] [address] [place] Sodium [Moles/Vol] 139 mmol/L Normal 136-144 [facility] Comment on above: Order Comment: Speci men Type: BLOOD SPECIMENOrdering Facility: [facility] Address: [address] [place] [address] Performed By: #### 2 4323-8 ####[facility] INSTITUTENCLIA [id number] [place] [address] [place] Urea nitrogen [Mass/Vol] 13 mg/dL Normal 9-24 [facility] Comment on above: Order Comment: Speci men Type: BLOOD SPECIMENOrdering Facility: [facility] Address: [address] [place] [address] Performed By: #### 2 4323-8 ####[facility] INSTITUTENCLIA [id number] [place] [address] [place] HISTORY PHYSICALon HISTORY PHYSICAL HNO ID: [id number] Author: ARELY CRUZ DO Service: General Surgery Author Type: Resident Type: H&P Filed: 10/31/2024 10:45 Note Text: ----- Attestation signed by Arely Cruz DO at 10/31/2024 10:45 AM Arely Cruz DO ----- UPDATED HISTORY AND PHYSICAL EXAMINATION SERVICE DATE: [...] 10/26/24. SIGNATURE: Socorro Melendez DO PATIENT NAME: Ministerio Leal DATE: October 29, 2024 TIME: 11:24 AM Normal [facility] OPERATIVE NOon 10-29-2024 OPERATIVE NO HNO ID: [id number] Author: ARELY CRUZ DO Service: Vascular Surgery Author Type: Physician Type: Operative Report Filed: 11/02/2024 16:16 Note Text: OPERATIVE/PROCEDURE REPORT LOG ID: [id number] Surgery/Procedure Date: 10/29/2024 Incision/Procedure Start Time: 12:20 PM Incision Close/Procedure End Time: 1:18 PM Surgeon(s)/Proceduralist( s) and Ophthalmology Technician(s): Surgeons and Role: * Arely Cruz DO [...] needle within the vessel was documented. A 5-Greenlandic sheath was exchanged over a glidewire into the TRACK WALKER and an omniflush catheter was advanced into [...] I/primary surgeon/proceduralist performed the procedure with assistance. DO Fabienne Acosta [facility] CNOVon 10-26-2024 CNOV Office Visit (VASSWS ) ----- MINISTERIO LEAL ([id number]) 1960 M Date Time Provider Department 10/26/24 8:30 AM GIO RICHARDSON During your visit today, we recorded the following information about you: Pulse Blood pressure 92/minute 121/80 Gio Richardson, 10/26/2024 10:33 AM Signed [facility] [place] DEPARTMENT OF VASCULAR SURGERY OUTPATIENT VISIT DATE October 26, 2024 OUTPATIENT VISIT TYPE ESTABLISHED SERVICE DATE: 10/26/2024 SERVICE TIME: 10:22 AM PRIMARY CARE PHYSICIAN: Hitesh Dai MD HISTORY OF PRESENT ILLNESS: Mr. Leal is a 64 year old male who [...] pain. He was most recently admitted to [facility] in July PAST MEDICAL HISTORY Diagnosis Date Adenomatous colon polyp Arthritis GERD (gastroesophageal reflux disease) Hiatal hernia Hx of fusion of cervical spine Mesenteric artery stenosis (HCC) PAST SURGICAL HISTORY Procedure Laterality Date ADDTL NECK SPINE FUSION 2010 CHOLECYSTECTOMY 2007 COLONOSCOPY 08/11/2024 Tubular Adenomas EGD 12/2022 EGD W/O BRSH SPEC VARICIES INJ 08/11/2024 ESOPHAGOGASTRODUODENOSCOP Y TRANSORAL DIAGNOSTIC 09/2014 EGD PAST SURGICAL HISTORY [...] Inferior mesenteric artery: 70-99% stenosis. IMPRESSION: Mr. 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 PLAN and RECOMMENDATIONS: Will arrange for mesenteric angiogram as no gi etiology found on multiple scopes to correlate with sign (more content not included)... Normal [facility] 10-26-2024 CNPN Telephone ([employer]) ----- MINISTERIO LEAL ([id number]) 1960 M Date Time Provider Department 10/26/24 [...] Fully Assessed Reason for Visit: Patient Question [8047] Prescriptions as of 10/27/2024 - oxyCODONE IR [...] Encounter Status:Closed by ABIGAIL AHMADI on 10/27/24 [facility] CNPN Telephone ([employer]) ----- MINISTERIO LEAL ([id number]) 1960 M Date Time Provider Department 10/26/24 [...] (HCC) [K55.1] Order(s):SURGICAL REQUEST - ELECTIVE (01/2020) [5219159] Order #: [id number]: 1 Prescriptions as of 10/26/2024 - oxyCODONE [...] Encounter Status:Closed by ABIGAIL AHMADI on 10/26/24 [facility] US MESENTERIC ARTERY CMPLT V LABon 10-26-2024 US MESENTERIC ARTERY CMPLT VAS LAB Non-Invasive Vascular Laboratory [facility] Renal or Mesenteric Duplex Bilateral/Complete Date of service/time: 10/26/2024 8:11:22 AM Name: MR. MINISTERIO LEAL Date of : 1960 Age: 64 years [...] Technologist: Dariana Herring BA, RVT Ordering physician: GIO RICHARDSON Interpreting physician: Kody Chapa MD, TO Final CC [employer] Image : [id number] See Link below for Image Normal [facility] CNOVon 10-06-2024 CNOV Office Visit (GASTMN ) ----- MINISTERIO LEAL ([id number]) 1960 M Date Time Provider Department 10/06/24 1:00 PM DARVIN GARCIA GASTMN During your visit today, we recorded the following information about you: Pulse Blood pressure Weight Height 76/minute 107/73 51.3 kg 1.778 m Darvin Garcia MD 10/06/2024 1:23 PM Addendum Lacey Arroyo Consultation requested by Dr. Arroyo for an opinion regarding abdominal pain. My [...] organomegaly Extremities: no cyanosis or edema CBC: @LASTLABX(WBC:2,HB,MCV,PL T,neut,lymphp])@ CMP: Alkaline Phosphatase (U/L) Date Value 05/18/2024 [...] 01:23 PM Modules accepted: Orders Referring Provider: LACEY ARROYO [[id number]] Allergies As of Date: 10/06/2024 Noted Allergy Reaction OMEPRAZOLE 05/26/2015 14 - Other: See Comments Comments: Severe Headaches SENNA 02/09/2023 16 - Unknown Comments: Bottom lip swelled. Stopped swelling when senna dc Date Reviewed: 10/06/2024 Reviewed by: Anshu Meza - Fully Assessed Reason for Visit: New Patient [172] Cmt: Lower abdominal pain Visit Diagnosis:Lower abdominal pain [R10.30] Order(s):CONSULT TO GASTROENTEROLOGY [9010] Order #: [id number]: 1 CONSULT TO NUTRITION THERAPY [9020] Order #: [id number]: 4 FUTURE Prescriptions as of 10/06/2024 - hyoscyamine sublingual (LEVSIN/SL) 0.125 mg Dissolve 1 tablet under the tongue every 4 hours as needed. - hyoscyamine SR (LEVBID) 0.375 mg 12 hr tablet Take 1 tablet by mouth two times a day. - hyoscyamine (LEVSIN) 0.125 mg tablet Take 1 tablet by mouth every 4 hours as needed for diarrhea (and abdominal pain). - a (more content not included)... Normal [facility] Abdomen/Pelvis W IV Cont ONL Yon 09-26-2024 Abdomen/Pelvis W IV Cont ONLY [facility] Services [address] [place] [address] Abdomen/Pelvis W IV Cont ONLY MR#: [id number] Acct: [id number] Name: MINISTERIO LEAL Rep #: [id number] : 1960 M 64 From: Garrett Young DO PCP: Dr. Hitesh Dai MD Status: REG ER Study: Abdomen/Pelvis W IV Cont ONLY Date of Exam: Exam# [id number] Ordering Dr: Mandy Quach PROCEDURE: ABDOMEN/PELVIS W IV CONT ONLY 09/26/2024 REASON FOR EXAM: L SIDED ABDOMINAL PAIN History of celiac and superior mesenteric artery stents. Stomach resection. Cholecystectomy. History of liver failure. TECHNIQUE: Abdomen and pelvis CT with intravenous contrast. Coronal and Sagittal reconstruction series were provided. PATIENT PREPARATION: Per protocol ORAL CONTRAST TYPE: None. AMOUNT: mL CONTRAST: Isovue 370 VOLUME: 100 mL IV One or more dose reduction techniques were used (e.g., Automated exposure control, adjustment of the mA and/or kV according to patient size, use of iterative reconstruction technique. RADIATION DOSE SUMMARY: CTDlvol: 9.37 mGy DLP: 256.71 mGycm COMPARISON: CT exam from 11/12 2023 FINDINGS: Lung bases: Lungs are clear. No pleural effusions. Heart size is normal. Liver: Unenlarged. 15 cm in length. Attenuation within normal limits Gallbladder: Cholecystectomy clips are seen in the gallbladder fossa. The spleen, pancreas, adrenals, kidneys and urinary bladder are unremarkable. Reproductive Organs: Mild prostatism Bowel: The gastrointestinal tract is grossly normal caliber and appearance. Appendix: No inflammatory process is appreciated in the right lower quadrant the appendix not definitely identified. Lymph nodes: No lymphadenopathy identified. Vasculature: Metallic mesh stent grafts are seen in the celiac and superior mesenteric arteries. Peritoneum / Retroperitoneum: No free fluid or free air appreciated. Bones: No aggressive bony process. CT/Abdomen/Pelvis W IV Cont ONLY IMPRESSION: No acute process appreciated. Reading [facility] CC: Dr. Hitesh Dai MD; STEPHANE Quinteros Life Skills Instructor: Signed Normal [facility] Anion gap in Serum or Plasma Ordered By: Mandy Quach on 09-26-2024 Anion gap [Moles/Vol] 23 mmol/L High 11-04 [facility] BUN/creatinine ratioOrdered By: Mandy Quach on 09-26-2024 Urea nitrogen/Creatinine [Mass ratio] 18.4 mg/mg 04-11 [facility] Basic Metabolic Profile (BMP )on 09-26-2024 BUN/CRE 18.4 RATIO Normal 04-11 [facility] Comment on above: Performed By: #### L 501.2450, L500.4050, L500.2500 #### [facility] Laboratory [facility] [place], [address] Calcium [Mass/Vol] 9.5 mg/dL Normal 7.6-11.0 [facility] Comment on above: Performed By: #### L 501.2450, L500.4050, L500.2500 #### [facility] [address] [place], [address] Chloride [Moles/Vol] 93 mmol/L Low 98-108 [facility] Comment on above: Performed By: #### L 501.2450, L500.4050, L500.2500 #### [facility] [address] [place], [address] CO2 [Moles/Vol] 14.5 mmol/L Low 21.0-32.0 [facility] Comment on above: Performed By: #### L 501.2450, L500.4050, L500.2500 #### [facility] [address] [place], [address] Creatinine [Mass/Vol] 1.17 mg/dL Normal 0.70-1.20 [facility] Comment on above: Performed By: #### L 501.2450, L500.4050, L500.2500 #### [facility] [address] [place], [address] ECRCL 43.87 ml/min Low 50-250 [facility] Comment on above: Performed By: #### L 501.2450, L500.4050, L500.2500 #### [facility] [address] [place], [address] GAP 23 High 5-15 [facility] Comment on above: Performed By: #### L 501.2450, L500.4050, L500.2500 #### [facility] [address] [place], [address] GFR/1.73 sq M.predicted among non-blacks MDRD (S/P/Bld) [Vol rate/Area] 70 mL/min/{1.73_m2} Normal >60 [facility] Comment on above: Result Comment: mL/m in/1.73m2 CKD-EPI Creatinine Equation (2020) Performed By: #### L 501.2450, L500.4050, L500.2500 #### [facility] [address] [place], [address] Glucose [Mass/Vol] 94 mg/dL Normal 70-99 [facility] Comment on above: Performed By: #### L 501.2450, L500.4050, L500.2500 #### [facility] [address] [place], [address] Potassium [Moles/Vol] 4.4 mmol/L Normal 3.3-5.1 [facility] Comment on above: Performed By: #### L 501.2450, L500.4050, L500.2500 #### [facility] [address] [place], [address] Sodium [Moles/Vol] 131 mmol/L Low 133-145 [facility] Comment on above: Performed By: #### L 501.2450, L500.4050, L500.2500 #### [facility] [address] [place], [address] Urea nitrogen [Mass/Vol] 22 mg/dL High 4-19 [facility] Comment on above: Performed By: #### L 501.2450, L500.4050, L500.2500 #### [facility] [address] [place], [address] Bilirubin Test strip Ql (U)O rdered By: Mandy Quach on 09-26-2024 Bilirubin Ql (U) Negative Negative [facility] Bilirubin, totalOrdered By: Mandy Quach on 09-26-2024 Bilirubin [Mass/Vol] 0.41 mg/dL 0.00-1.30 [facility] CBC W/Diff, Automatedon 04-0 6-2025 PLT EST A Normal ADEQ [facility] Comment on above: Performed By: #### L 100.0100 #### [facility] [address] [place], [address] Carbon dioxide, total [Moles /volume] in Central venous bloodOrdered By: Mandy Quach on 09-26-2024 CO2 [Moles/Vol] 14.5 mmol/L Low 21.0-32.0 [facility] Chloride assayOrdered By: Chayito Quach on 09-26-2024 Chloride [Moles/Vol] 93 mmol/L Low 98-108 [facility] Comprehensive Metabolic Prof ilon 09-26-2024 Albumin [Mass/Vol] 4.4 g/dL Normal 3.4-4.8 [facility] Comment on above: Performed By: #### L 501.2450, L500.4050, L500.2500 #### [facility] [address] [place], [address] Albumin/Globulin [Mass ratio] 1.3 {ratio} Normal 0.9-2.4 [facility] Comment on above: Performed By: #### L 501.2450, L500.4050, L500.2500 #### [facility] [address] [place], [address] ALK PHOS 211 U/L High 40-129 [facility] Comment on above: Performed By: #### L 501.2450, L500.4050, L500.2500 #### [facility] [address] [place], [address] ALT [Catalytic activity/Vol] 13 U/L Normal <=46 [facility] Comment on above: Performed By: #### L 501.2450, L500.4050, L500.2500 #### [facility] [address] [place], [address] AST [Catalytic activity/Vol] 30 U/L Normal <=37 [facility] Comment on above: Performed By: #### L 501.2450, L500.4050, L500.2500 #### [facility] [address] [place], [address] Bilirubin [Mass/Vol] 0.41 mg/dL Normal 0.00-1.30 [facility] Comment on above: Performed By: #### L 501.2450, L500.4050, L500.2500 #### [facility] [address] [place], [address] Globulin (S) [Mass/Vol] 3.4 g/dL Normal 2.2-4.2 [facility] Comment on above: Performed By: #### L 501.2450, L500.4050, L500.2500 #### [facility] [address] [place], [address] T PROT 7.9 g/dL Normal 5.9-8.4 [facility] Comment on above: Performed By: #### L 501.2450, L500.4050, L500.2500 #### [facility] [address] [place], [address] Emergency Department Summary on 09-26-2024 Emergency Department Summary [facility] Medical Records Department [address] [place] [address] Emergency Department Summary 09/26/24 MR#: [id number] Acct: [id number] Name: MINISTERIO [place] Rep #: [id number] : 1960 64 From: Mandy CALDERÓN PCP: Dr. Hitesh Dai MD Status:DEP ER Location: ED HPI History of Present Illness Chief Complaint: Abd Pain Narrative Narrative: Patient presenting today with left-sided abdominal pain he has had over the past week that is gradually worsening. He reports a history of similar, attacks that usually occur every few months and subside in a matter of days. He reports that this attack feels worse than usual. Previous abdominal surgeries include a Chester-en-Y and cholecystectomy. He also has a history of SMA and a tortuous colon. He has had dry heaving but no fevers, chills, vomiting, diarrhea, or urinary symptoms. PFSH PFS Medical History Marijuana use Restless legs History of stress test Liver failure Superior mesenteric artery syndrome Mesenteric ischemia, chronic Wears glasses Arthritis High cholesterol Migraine headache Injury of head and neck History of GI bleed Difficulty swallowing History of ulceration History of IBS History of diverticulitis Smoker Celiac artery stenosis Mesenteric artery stenosis Home Medications ???Medication ???Instructions ???Recorded ???Last Taken ???Type clopidogrel 75 mg tablet 75 mg PO QHS BLOOD THINNER 7 01/04/23 History rosuvastatin 10 mg tablet 10 mg PO QHS CHOLESTEROL 06/08/18 11/11/22 History aspirin 81 mg tablet,delayed 81 mg PO DAILY HEART HEALTH 01/04/23 History release pantoprazole 20 mg tablet,delayed 20 mg PO QHS ACID REFLUX 11/12/22 11/11/22 History release oxycodone 5 mg tablet 5 mg PO TID PRN PRN pain 09/26/24 Unknown History Allergy/AdvReac Type Severity Reaction Status Date / Time senna Allergy Anaphylaxis Verified 09/26/24 12:48 omeprazole AdvReac Other Verified 09/26/24 12:48 Family History Father Colon cancer Mother COPD (chronic obstructive pulmonary disease) Lung cancer Concurrent tobacco use history. Surgical History Hx of resection of stomach Hx of myringotomy History of liver biopsy Hx of surgical procedure Hx of colonoscopy Hx of cervical spine surgery History of esophagogastroduodenoscop y (EGD) History of cholecystectomy Social History household members: spouse Smoking Status: Current every day smoker tobacco type: cigarettes how long ago did patient quit smoking: Cut back over 2-3 weeks, down to 3 cig/day 10/09/22. alcohol intake: current alcohol intake frequency: a few times a month details: occasional use substance use type: does not use ROS ROS ED Constitutional Constitutional ED: Denies chills or fever(s) Cardiovascular Cardiovascular: Denies chest pain Respiratory/Chest Respiratory/Chest: Denies dyspnea Gastrointestinal Gastrointestinal: Reports abdominal pain and nausea; Denies constipation, diarrhea, melena or vomiting Genitourinary Genitourinary ED: Denies dysuria, hematuria or urinary urgency Musculoskeletal Musculoskeletal: Denies arthralgias or myalgias Integumentary Denies rash Neurologic Neurologic: Denies weakness EXAM Physical Exam Const Vital Signs: 09/26/24 12:45 09/26/24 13:30 09/26/24 14:00 Temperature 97.2 F L Temperature Source Temporal Pulse Rate 85 75 69 Respiratory Rate 17 18 19 H Blood Pressure 118/75 118/76 Blood Pressure Mean 89 90 Pulse Ox 97 100 100 Oxygen Delivery Method Room Air Room Air 09/26/24 14:30 09/26/24 15:00 Temperature Temperature Source Pulse Rate 73 85 Respiratory Rate 21 H 19 H Blood Pressure 120/103 H Blood Pressure Mean 109 Pulse Ox 96 98 Oxygen Delivery Method Positive well nourished, well developed and no apparent distress General Appearance ED: well developed HEENT Reports normocephalic and head/scalp atraumatic Mouth ED: Yes moist mucous membranes normal Eyes PERRL and EOMs intact bilaterally Neck full ROM and supple Chest Wall inspection of chest normal Resp normal respiratory effort and clear to auscultation bilaterally Cardio regular rate and regular rhythm GI soft to palpation, non-distended and no masses GI Narrative: Left-sided abdominal tenderness to palpation, no rigidity or guarding. Back/Spine normal ROM and normal to inspection Extremity normal to inspection and full ROM Neuro oriented x3, CN's II-XII intact bilaterally, moves all extremities, no focal motor de (more content not included)... Normal [facility] Epithelial cells.squamous LM Ql (Urine sed)Ordered By: Mandy Quach on 09-26-2024 Epithelial cells.squamous LM.HPF (Urine sed) [#/Area] 0 /[HPF] 0-5 [facility] Estimation of creatinine joana aranceOrdered By: Mandy Quach on 09-26-2024 Estimated Creatinine Clearance Calc 43.87 ml/min Low 50-250 [facility] GFR/1.73 sq M.predicted marciano g non-blacks MDRD (S/P/Bld) [Vol rate/Area]Ordered By: Mandy Quach on 09-26-2024 Estimated GFR (MDRD) Non-Af Amer 70 >60 [facility] Comment on above: mL/min/1.73m2 CKD-EP I Creatinine Equation (2020) Glucose Ql (U)Ordered By: Chayito Quach on 09-26-2024 Urine Glucose (UA) Normal mg/dl Normal [facility] Ketones Test strip Ql (U)Ord ered By: Mandy Quach on 09-26-2024 Ketones Ql (U) 150 mg/dl Abnormal Negative [facility] Comment on above: CRITICAL VALUE *HCRI TICAL VALUE CALLED TO ACOLE09/26/24 Aneudy Patterson.RESULTS READ BACK BY SAME. Laboratory - Chemistry and C hemistry - challengeOrdered By: Mandy Quach on 09-26-2024 AST [Catalytic activity/Vol] 30 U/L <38 [facility] Lipaseon 09-26-2024 Lipase [Catalytic activity/Vol] 12 U/L Low 13-75 [facility] Comment on above: Result Comment: Gerry dunham note: LIPASE revised reference range effective 22. New Lipase methodology. Expected to produce lower values than the previous assay method. NEW Reference Range: 13 - 75 U/L Performed By: #### L 503.6005 #### [facility] [address] [place], [address] Lipase measurementOrdered By : Mandy Quach on 09-26-2024 Lipase [Catalytic activity/Vol] 12 U/L Low 13-75 [facility] Comment on above: Please note:LIPASE r evised reference range effective 22. New Lipase methodology. Expected to produce lower values than the previous assay method. NEW Reference Range: 13 - 75 U/L Microscopic analysis of urin e for red blood cells (RBC)Ordered By: Mandy Quach on 09-26-2024 Urine RBC 0-5 SEEN /hpf 0-5 [facility] Mucus LM Ql (Urine sed)Order ed By: Mandy Quach on 09-26-2024 Mucus Ql (Urine sed) 1+ /hpf [facility] Nitrite Test strip Ql (U)Ord ered By: Mandy Quach on 09-26-2024 Nitrite Ql (U) Negative Negative [facility] Potassium (Unsp spec) [Mass/ Vol]Ordered By: Mandy Quach on 09-26-2024 Potassium [Moles/Vol] 4.4 mmol/L 3.3-5.1 [facility] Protein Test strip Ql (U)Ord ered By: Mandy Quach on 09-26-2024 Protein Ql (U) 15 mg/dl High Negative [facility] Serum creatinine measurement (mass/volume)Ordered By: Mandy Quach on 09-26-2024 Creatinine [Mass/Vol] 1.17 mg/dL 0.70-1.20 [facility] Serum globulin measurementOr dered By: Mandy Quach on 09-26-2024 Globulin (S) [Mass/Vol] 3.4 g/dL 2.2-4.2 [facility] Serum glucose measurement (m ass/volume)Ordered By: Mandy Quach on 09-26-2024 Glucose [Mass/Vol] 94 mg/dL 70-99 [facility] Serum or plasma alanine nicolas otransferase (ALT) measurementOrdered By: Mandy Quach on 09-26-2024 ALT [Catalytic activity/Vol] 13 U/L <47 [facility] Serum or plasma albumin gideon urement (mass/volume)Ordered By: Mandy Quach on 09-26-2024 Albumin [Mass/Vol] 4.4 g/dL 3.4-4.8 [facility] Serum or plasma albumin/glob ulin mass ratioOrdered By: Mandy Quach on 09-26-2024 Albumin/Globulin [Mass ratio] 1.3 {ratio} 0.9-2.4 [facility] Serum or plasma alkaline adam sphatase measurementOrdered By: Mandy Quach on 09-26-2024 ALP [Catalytic activity/Vol] 211 U/L High 40-129 [facility] Serum or plasma calcium gideon urement (mass/volume)Ordered By: Mandy Quach on 09-26-2024 Calcium [Mass/Vol] 9.5 mg/dL 7.6-11.0 [facility] Serum or plasma urea nitroge n measurement (mass/volume)Ordered By: Mandy Quach on 09-26-2024 Urea nitrogen [Mass/Vol] 22 mg/dL High 4-19 [facility] Sodium levelOrdered By: Dong Quach on 09-26-2024 Sodium [Moles/Vol] 131 mmol/L Low 133-145 [facility] Total proteinOrdered By: Fernando Quach on 09-26-2024 Protein [Mass/Vol] 7.9 g/dL 5.9-8.4 [facility] Urinalysis, Completeon 09-26 BACTERIA 1+ /hpf Normal None Seen [facility] Comment on above: Order Comment: Y Performed By: #### L 503.6005 #### [facility] [address] [place], [address] EPI,SQUAMOUS 0-5 SEEN Normal 0-5 [facility] Comment on above: Order Comment: Y Performed By: #### L 503.6005 #### [facility] [address] [place], [address] Mucus Ql (Urine sed) 1+ /hpf Normal [facility] Comment on above: Order Comment: Y Performed By: #### L 503.6005 #### [facility] [address] [place], [address] RBC 0-5 SEEN Normal 0-5 [facility] Comment on above: Order Comment: Y Performed By: #### L 503.6005 #### [facility] [address] [place], [address] WBC 0 SEEN Normal 0-5 [facility] Comment on above: Order Comment: Y Performed By: #### L 503.6005 #### [facility] [address] [place], [address] Urine blood detectionOrdered By: Mandy Quach on 09-26-2024 Urine Occult Blood 10 /ul High Negative [facility] Urine clarityOrdered By: Fernando Quach on 09-26-2024 Clarity (U) Clear Clear [facility] Urine color determinationOrd ered By: Mandy Quach on 09-26-2024 Color (U) Yellow Yellow [facility] Urine leukocyte esterase det ection by dipstickOrdered By: Mandy Quach on 09-26-2024 Leukocyte esterase Test strip Ql (U) Negative Negative [facility] Urine pHOrdered By: Martin Quach on 09-26-2024 pH (U) 5.0 [pH] 5.0 - 8.0 [facility] Urine sediment bacteria coun t by microscopy (number/high power field)Ordered By: Mandy Quach on 09-26-2024 Bacteria LM.HPF (Urine sed) [#/Area] 1 /[HPF] None Seen [facility] Urine specific gravity measu rementOrdered By: Mandy Quach on 09-26-2024 Specific gravity (U) [Rel density] 1.015 1.002-1.03 0 [facility] Urobilinogen Ql (U)Ordered B y: Mandy Quach on 09-26-2024 Urine Urobilinogen Normal mg/dl Normal [facility] White blood cell countOrdere d By: Mandy Quach on 09-26-2024 Urine WBC 0 SEEN /hpf 0-5 [facility] ANES POSTPROC EVALon 025 ANES POSTPROC EVAL HNO ID: [id number] Author: HOLGER JACOBSON MD Service: Anesthesiology Author Type: Anesthesiologist Type: Anesthesia Postprocedure Evaluation Filed: 08/11/2024 15:22 Note Text: POST ANESTHESIA EVALUATION NOTE : 1960 Procedure Summary Date: 08/11/24 Room / Location: [place] [facility] Anesthesia Start: 1213 Anesthesia Stop: 1317 Procedures: COLONOSCOPY DIAGNOSTIC EGD DIAGNOSTIC Diagnosis: (Epigastric abdominal pain) Scheduled Providers: Madalyn Mcmillan MD Responsible Provider: Holger Jacobson MD Anesthesia Type: MAC ASA Status: 4 Anesthesia Type: MAC Last Vitals Vitals Value Taken Time BP 106/76 08/11/24 1350 Temp 36.2 ?C (97.2 ?F) 08/11/24 1315 Pulse 61 02/19/25 1350 Resp 15 08/11/24 1350 SpO2 95 [...] of care. Anesthesia Observations No Documentation SIGNATURE: Hogler Jacobson MD PATIENT NAME: Ministerio [place] DATE: August 11, 2024 TIME: 3:21 PM CSN: [id number] Normal 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 Mac 4, grade 1 No echo : 1960 Procedure Information Date/Time: 08/11/24 1100 Scheduled providers: Madalyn Mcmillan MD Procedures: COLONOSCOPY DIAGNOSTIC EGD DIAGNOSTIC [facility] Estimated body mass index is 15.78 [...] Anesthetic Plan: MAC NPO Status: adequate Beta Rudolph Monitoring Plan Monitoring plan: standard ASA. Post Procedure Analgesic Plan Postoperative analgesic plan: multimodal analgesia. Informed Consent Anesthetic risks, benefits, alternatives, personnel and consent discussed: yes. Patient / Responsible Republican agrees to proceed: yes Patient / Surrogate [...] Surgery/Procedure. SIGNATURE: Holger Jacobson MD PATIENT NAME: Ministerio [place] DATE: August 11, 2024 TIME: 11:23 AM CSN: [id number] Normal [facility] Basic metabolic 2000 panelon 08-11-2024 Anion gap [Moles/Vol] 17 mmol/L High 8-15 [facility] Comment on above: Order Comment: Speci men Type: BLOOD SPECIMENOrdering Facility: [facility] Address: [address] [place] [address] Performed By: #### 2 4321-2 ####[facility] LABORATORYCLIA [id number] [place] [address] [place] Calcium [Mass/Vol] 9.4 mg/dL Normal 8.5-10.2 [facility] Comment on above: Order Comment: Speci men Type: BLOOD SPECIMENOrdering Facility: [facility] Address: [address] [place] [address] Performed By: #### 2 4321-2 ####[facility] LABORATORYCLIA [id number] [place] [id number] [place] Chloride [Moles/Vol] 98 mmol/L Normal 98-107 [facility] Comment on above: Order Comment: Speci men Type: BLOOD SPECIMENOrdering Facility: [facility] Address: [address] [place] [address] Performed By: #### 2 4321-2 ####[facility] LABORATORYCLIA [id number] [address] [place] CO2 [Moles/Vol] 23 mmol/L Normal 22-30 [facility] Comment on above: Order Comment: Speci men Type: BLOOD SPECIMENOrdering Facility: [facility] Address: [address] [place] [address] Performed By: #### 2 4321-2 ####[facility] LABORATORYCLIA [id number] [address] Creatinine [Mass/Vol] 0.83 mg/dL Normal 0.73-1.22 [facility] Comment on above: Order Comment: Speci men Type: BLOOD SPECIMENOrdering Facility: [facility] Address: [address] [place] [address] Performed By: #### 2 4321-2 ####[facility] LABORATORYCLIA [id number] [address] Creatinine and Glomerular filtration rate.predicted panel (S/P/Bld) 98 mL/min/1.73m??? Normal >=60 [facility] Comment on above: Order Comment: Speci men Type: BLOOD SPECIMENOrdering Facility: [facility] Address: [address] [place] [address] Result Comment: Josi mated Glomerular Filtration Rate (eGFR) is calculated using the 2020 CKD-EPI creatinine equation. This equation utilizes serum creatinine, sex, and age as parameters. The creatinine assay has traceable calibration to isotope dilution-mass spectrometry. Refer to KDIGO guidelines for clinical interpretation. In patients with unstable renal function, e.g. those with acute kidney injury, the eGFR may not accurately reflect actual GFR. Performed By: #### 2 4321-2 ####[facility] LABORATORYCLIA [id number] [place] [address] [place] Glucose [Mass/Vol] 70 mg/dL Low 74-99 [facility] Comment on above: Order Comment: Bri ni Type: BLOOD SPECIMENOrdering Facility: [facility] Address: [address] [place] [address] Result Comment: The [place] [employer] (ADA) provides guidance for cutoff [...] Standards of Medical Care in Diabetes 2016, [place] [employer]. Diabetes Care. 2016.39(Suppl 1). Performed By: #### 2 4321-2 ####[facility] LABORATORYCLIA [id number] [place] [address] [place] Potassium [Moles/Vol] 3.7 mmol/L Normal 3.7-5.1 [facility] Comment on above: Order Comment: Bri ni Type: BLOOD SPECIMENOrdering Facility: [facility] Address: [address] [place] [address] Performed By: #### 2 4321-2 ####[facility] LABORATORYCLIA [id number] [place] [address] [place] Sodium [Moles/Vol] 138 mmol/L Normal 136-144 [facility] Comment on above: Order Comment: Bri ni Type: BLOOD SPECIMENOrdering Facility: [facility] Address: [address] [place] [id number] Performed By: #### 2 4321-2 ####[facility] LABORATORYCLIA [id number] [place] [address] [place] Urea nitrogen [Mass/Vol] 6 mg/dL Low 9-24 [facility] Comment on above: Order Comment: Speci men Type: BLOOD SPECIMENOrdering Facility: [facility] Address: [address] [place] [address] Performed By: #### 2 4321-2 ####[facility] LABORATORYCLIA [id number] [address] [place] CBC panel Auto (Bld)on 08-11 Erythrocyte distribution width (RBC) [Ratio] 19.9 % High 11.5-15.0 [facility] Comment on above: Order Comment: Speci men Type: BLOOD SPECIMENOrdering Facility: [facility] Address: [address] [place] [address] Performed By: #### 5 8410-2 ####[facility] LABORATORYCLIA [id number] [address] [place] Hematocrit (Bld) [Volume fraction] 37.7 % Low 39.0-51.0 [facility] Comment on above: Order Comment: Speci men Type: BLOOD SPECIMENOrdering Facility: [facility] Address: [address] [place] [address] Performed By: #### 5 8410-2 ####[facility] LABORATORYCLIA [id number] [address] [place] Hemoglobin (Bld) [Mass/Vol] 11.8 g/dL Low 13.0-17.0 [facility] Comment on above: Order Comment: Speci men Type: BLOOD SPECIMENOrdering Facility: [facility] Address: [address] [place] [address] Performed By: #### 5 8410-2 ####[facility] LABORATORYCLIA [id number] [address] [place] MCH (RBC) [Entitic mass] 24.5 pg Low 26.0-34.0 [facility] Comment on above: Order Comment: Speci men Type: BLOOD SPECIMENOrdering Facility: [facility] Address: [address] [place] [address] Performed By: #### 5 8410-2 ####[facility] LABORATORYCLIA [id number] [address] [place] [facility] MCHC (RBC) [Mass/Vol] 31.3 g/dL Normal 30.5-36.0 [facility] Comment on above: Order Comment: Speci men Type: BLOOD SPECIMENOrdering Facility: [facility] Address: [address] [place] [address] Performed By: #### 5 8410-2 ####[facility] LABORATORYCLIA [id number] [address] [place] MCV (RBC) [Entitic vol] 78.2 fL Low 80.0-100.0 [facility] Comment on above: Order Comment: Speci men Type: BLOOD SPECIMENOrdering Facility: [facility] Address: [address] [place] [address] Performed By: #### 5 8410-2 ####[facility] LABORATORYCLIA [id number] [address] OF [facility] Nucleated RBC (Bld) [#/Vol] 10*3/uL Normal <0.01 [facility] Comment on above: Order Comment: Speci men Type: BLOOD SPECIMENOrdering Facility: [facility] Address: [address] [place] [address] Performed By: #### 5 8410-2 ####[facility] LABORATORYCLIA [id number] [address] Platelet mean volume (Bld) [Entitic vol] Normal [facility] Comment on above: Order Comment: Speci men Type: BLOOD SPECIMENOrdering Facility: [facility] Address: [address] [place] [address] Result Comment: Unab le to Report. Performed By: #### 5 8410-2 ####[facility] LABORATORYCLIA [id number] [address] OF [place] Platelets (Bld) [#/Vol] 148 10*3/uL Low 150-400 [facility] Comment on above: Order Comment: Bri ni Type: BLOOD SPECIMENOrdering Facility: [facility] Address: [address] [place] [address] Performed By: #### 5 8410-2 ####[facility] LABORATORYCLIA [id number] [place], [place] [address] [place] [address] OF [facility] RBC (Bld) [#/Vol] 4.82 10*6/uL Normal 4.20-6.00 [facility] Comment on above: Order Comment: Bri ni Type: BLOOD SPECIMENOrdering Facility: [facility] Address: [address] [place] [address] Performed By: #### 5 8410-2 ####[facility] LABORATORYCLIA [id number] [address] OF [facility] WBC (Bld) [#/Vol] 5.05 10*3/uL Normal 3.70-11.00 [facility] Comment on above: Order Comment: Bri ni Type: BLOOD SPECIMENOrdering Facility: [facility] Address: [address] [place] [address] Performed By: #### 5 8410-2 ####[facility] LABORATORYCLIA [id number] [address] CNDSon 08-11-2024 [facility] HNO ID: [id number] Author: LACEY ARROYO MD Service: General Surgery Author Type: Resident Type: Discharge Summary Filed: 08/12/2024 08:03 Note Text: ----- Attestation signed by Lacey Arroyo MD at 08/12/2024 8:03 AM I personally saw and examined the patient. I reviewed the resident's note. I agree with the resident's assessment and plan except as noted below. Plan of care discussed with: Provider, RN, Patient. ----- DISCHARGE SUMMARY PATIENT NAME: Ministerio Leal Code Status: Prior Highest Readmission Risk Score: [...] AND MEDICAL TEAM: [facility] Doctor: Lacey Arroyo MD Primary Care Provider: Hitesh Dai MD My Medical Team Members: Treatment Team: Attending Provider: Lacey Arroyo MD Consulting: Madalyn Mcmillan MD MY CONDITION [...] greater than 101F Treatment Team: Attending Provider: Lacey Arroyo MD Consulting: Madalyn Mcmillan MD FOLLOW-UP APPOINTMENTS ALREADY SCHEDULED WITH A [facility] PROVIDER: Future Appointments Date Time Provider Department Center 08/18/2024 8:[address] PREP [facility] 08/18/2024 10:[address] [facility] 08/31/2024 11:00 AM Lacey Arroyo MD [facility] 09/03/2024 8:30 AM George Culver MD [facility] 10/26/2024 8:00 AM [facility] WSTR [facility] [place] 10/26/2024 8:30 AM Gio Richardson DO [facility] ALLERGIES Allergen Reactions Omeprazole Other: [...] Your Medications These medications were sent to [email or web address] [address] [place] [address] [address] [facility] - [phone] 1724 1640 [facility] (more content not included)... Normal [facility] Colonoscopyon 08-11-2024 Colonoscopy [facility] Gastrointestinal Endoscopy Patient Name: Ministerio Leal Procedure Date: 08/11/2024 12:09 PM Date of : 1960 Admit Type: Inpatient Room: [place] [address] Gender: Male Note Status: Dry Folder Cloth Override Attending MD: Madalyn Mcmillan MD, [id number] Procedure: Colonoscopy Indications: Generalized abdominal pain, Abdominal pain in the left lower quadrant, Periumbilical abdominal pain Providers: Madalyn Mcmillan MD Patient Profile: Last Colonoscopy: within the past 3 months. Refer to note in patient chart for documentation of history and physical. Referring Physician: Madalyn Mcmillan MD (Referring MD) Medicines: Monitored Anesthesia Care Complications: No immediate complications. Requesting Provider: Lacey Arroyo MD Procedure: Pre-Anesthesia Assessment: - Prior to [...] to normal activities tomorrow. Written discharge instructions wer (more content not included)... Normal [facility] Pathology biopsy report Gabriel (Tiss)on 08-11-2024 CASE REPORT Normal [facility] Comment on above: Order Comment: Specagueda ni Type: TISSUE SPECIMENOrdering Facility: [facility] Address: [address] [place] [address] Result Comment: Surg ica Pathology Report Case: [id number] Authorizing Provider: Madalyn Mcmillan, Collected: 08/11/2024 12:29 PM [facility] Received: 08/12/2024 08:46 AM Pathologist: Zita Buckner MD Specimens: A) - Small Bowel, Jejunum, Biopsy, R/O Celiac B) - Stomach, Biopsy, R/O H Pylori C) - Colon, Cecum, Polyp D) - Colon, Transverse, Polyp E) - Colon, Sigmoid, Polyp Performed By: #### 6 6121-5 ####[facility] [id number] [address] DIAGNOSIS COMMENT Normal [facility] Comment on above: Order Comment: Specagueda ni Type: TISSUE SPECIMENOrdering Facility: [facility] Address: [address] [place] [address] Result Comment: Part B has been reviewed by Dr. Azalea Brower, who concurs with the above findings. Laboratory Developed Test (LDT) Disclaimer: Performance characteristics of immunohistochemical, immunofluorescent and chromogenic in-situ hybridization tests have been determined by the performing laboratory within [facility]???s [facility] Pathology and Laboratory Medicine Department ([facility], [facility], [facility], [facility], [facility], [facility], or [facility]) in a manner consistent with CLIA requirements. One or more of these tests have not been cleared or approved by the FDA. [facility] is regulated under CLIA as qualified to perform high-complexity testing. These tests are used for clinical purposes. They should not be regarded as investigational or for research. Positive and negative controls stain appropriately. Performed By: #### 6 6121-5 ####[facility] LABORATORYCLIA [id number] [address] FINAL DIAGNOSIS Normal [facility] Comment on above: Order Comment: Speci raine Type: TISSUE SPECIMENOrdering Facility: [facility] Address: [address] [place] [address] Result Comment: A. S mall bowel, jejunum, biopsy: -- Small bowel mucosa with no significant histopathologic abnormalities. B. Stomach, biopsy: -- Focally active chronic gastritis, see comment. -- Immunohistochemical stain for H. Pylori negative for microorganisms. C. Cecum colon polyp, polypectomy: -- Tubular adenoma. D. Transverse colon polyp, polypectomy: -- Fragments of tubular adenoma. E. Sigmoid colon polyp, polypectomy: -- Tubular adenoma. at 1619 EST Performed By: #### 6 6121-5 ####[facility] LABORATORYCLIA [id number] [address] OF [facility] FINAL PERFORMING LAB Normal [facility] Comment on above: Order Comment: Speci raine Type: TISSUE SPECIMENOrdering Facility: [facility] Address: [address] [place] [address] Result Comment: Diag nostic interpretation performed at: [facility], [address] [place] [address] CLIA# [id number] Photolithographer: Edmund Andrew MD Performed By: #### 6 6121-5 ####[facility] LABORATORYCLIA [id number] [address] GROSS DESCRIPTION Normal [facility] Comment on above: Order Comment: Mindyi raine Type: TISSUE SPECIMENOrdering Facility: [facility] Address: [address] [place] [address] Result Comment: A. S mall Bowel, Jejunum, Biopsy Received in formalin labeled small [...] entirely in E1. Gross examination performed at [facility], [address] [place] [address] CLIA#[id number] [facility] August 12, 2024 12:08 PM Performed By: #### 6 6121-5 ####[facility] LABORATORYCLIA [id number] [place] [id number] [place] OF [facility] Upper GI endoscopyon 19-2 025 Upper GI endoscopy [facility] Gastrointestinal Endoscopy Patient Name: Ministerio Leal Procedure Date: 08/11/2024 12:10 PM Date of : 1960 Admit Type: Inpatient Room: [place] [address] Gender: Male Note Status: Finalized Attending MD: Madalyn Mcmillan MD, [id number] Procedure: Upper GI endoscopy Indications: Epigastric abdominal [...] of therapy. Procedure Code(s): --- Professional --- 59726, Esophagogastroduodenoscop y, flexible, transoral; with biopsy, single or multiple --- Technical --- 07320, Esophagogastroduodenoscop y, flexible, transoral; with biopsy, single or multiple Diagnosis Code(s): --- Professional --- R10.13, Epigastric pain --- Technical --- R10.13, Epigastric pain CPT copyright 2020 [employer]. All rights reserved. The codes documented in this report are preliminary and upon sausage tier review may be revised to meet current compliance requirements. Attending Participation: I personally performed the entire procedure. Scope In: 12:20:24 PM Scope Out: 12:31:12 PM MD Madalyn Garcia MD 08/11/2024 1:22:31 PM This report has been signed electronically by Madalyn Mcmillan MD Number of Addenda: 0 Note Initiated On: 08/11/2024 12:10 PM Normal [facility] ALLIED HEALTHon 08-10-2024 ALLIED HEALTH HNO ID: [id number] Author: MICHELLE MARROQUIN RT(R) Service: Radiology Author Type: Plant Taxonomist Type: Allied Health Filed: 08/10/2024 14:16 Note [...] PATIENT PRESENTS WITH AN IMPLANTABLE OR ATTACHED PLATFORM SUPERVISOR: No ALLERGIES: Reviewed and unchanged CONTRAST ALLERGY: [...] PERIPHERAL IV DATA: Inpatient - refer to [facility] documentation RADIOLOGY DEPARTMENT: CT; Exam(s) Completed: Abdomen/Pelvis SIGNATURE: Michelle Marroquin RT(R) PATIENT NAME: Ministerio Leal DATE: August 10, 2024 TIME: 2:16 PM Normal [facility] Basic metabolic 2000 panelon 08-10-2024 Anion gap [Moles/Vol] 15 mmol/L Normal 8-15 [facility] Comment on above: Order Comment: Speci men Type: BLOOD SPECIMENOrdering Facility: [facility] Address: [address] [place] [address] Performed By: #### 2 4321-2 ####[facility] LABORATORYCLIA [id number] [place] [address] [place] Calcium [Mass/Vol] 9.2 mg/dL Normal 8.5-10.2 [facility] Comment on above: Order Comment: Speci men Type: BLOOD SPECIMENOrdering Facility: [facility] Address: [address] [place] [address] Performed By: #### 2 4321-2 ####[facility] LABORATORYCLIA [id number] [place] [address] [place] Chloride [Moles/Vol] 100 mmol/L Normal 98-107 [facility] Comment on above: Order Comment: Speci men Type: BLOOD SPECIMENOrdering Facility: [facility] Address: [address] [place] [address] Performed By: #### 2 4321-2 ####[facility] LABORATORYCLIA [id number] [place] [address] [place] CO2 [Moles/Vol] 22 mmol/L Normal 22-30 [facility] Comment on above: Order Comment: Speci men Type: BLOOD SPECIMENOrdering Facility: [facility] Address: [address] [place] [address] Performed By: #### 2 4321-2 ####[facility]ORATORYCLIA [id number] [place] [id number] [place] Creatinine [Mass/Vol] 0.83 mg/dL Normal 0.73-1.22 [facility] Comment on above: Order Comment: Bri ni Type: BLOOD SPECIMENOrdering Facility: [facility] Address: [address] [place] [address] Performed By: #### 2 4321-2 ####[facility] [id number] [place] [id number] [facility] Creatinine and Glomerular filtration rate.predicted panel (S/P/Bld) 98 mL/min/1.73m??? Normal >=60 [facility] Comment on above: Order Comment: Bri ni Type: BLOOD SPECIMENOrdering Facility: [facility] Address: [address] [place] [address] Result Comment: Josi mated Glomerular Filtration Rate (eGFR) is calculated using the 2020 CKD-EPI creatinine equation. This equation utilizes serum creatinine, sex, and age as parameters. The creatinine assay has traceable calibration to isotope dilution-mass spectrometry. Refer to KDIGO guidelines for clinical interpretation. In patients with unstable renal function, e.g. those with acute kidney injury, the eGFR may not accurately reflect actual GFR. Performed By: #### 2 4321-2 ####[facility] [id number] [place] [id number] [place] Glucose [Mass/Vol] 83 mg/dL Normal 74-99 [facility] Comment on above: Order Comment: Bri ni Type: BLOOD SPECIMENOrdering Facility: [facility] Address: [address] [place] [address] Result Comment: The [place] [employer] (ADA) provides guidance for cutoff [...] Standards of Medical Care in Diabetes 2016, [place] [employer]. Diabetes Care. 2016.39(Suppl 1). Performed By: #### 2 4321-2 ####[facility] LABORATORYCLIA [id number] [address] [place] Potassium [Moles/Vol] 3.7 mmol/L Normal 3.7-5.1 [facility] Comment on above: Order Comment: Speci men Type: BLOOD SPECIMENOrdering Facility: [facility] Address: [address] [place] [address] Performed By: #### 2 4321-2 ####[facility] LABORATORYCLIA [id number] [address] STATES [facility] Sodium [Moles/Vol] 137 mmol/L Normal 136-144 [facility] Comment on above: Order Comment: Speci men Type: BLOOD SPECIMENOrdering Facility: [facility] Address: [address] [place] [address] Performed By: #### 2 4321-2 ####[facility] LABORATORYCLIA [id number] [address] STATES [facility] Urea nitrogen [Mass/Vol] 14 mg/dL Normal 9-24 [facility] Comment on above: Order Comment: Speci men Type: BLOOD SPECIMENOrdering Facility: [facility] Address: [address] [place] [address] Performed By: #### 2 4321-2 ####[facility] LABORATORYCLIA [id number] [address] [place] CBC panel Auto (Bld)on 08-10 Erythrocyte distribution width (RBC) [Ratio] 19.7 % High 11.5-15.0 [facility] Comment on above: Order Comment: Speci men Type: BLOOD SPECIMENOrdering Facility: [facility] Address: [address] [place] [address] Performed By: #### 5 8410-2 ####[facility] LABORATORYCLIA [id number] [address] Hematocrit (Bld) [Volume fraction] 39.5 % Normal 39.0-51.0 [facility] Comment on above: Order Comment: Speci men Type: BLOOD SPECIMENOrdering Facility: [facility] Address: [address] [place] [address] Performed By: #### 5 8410-2 ####[facility] LABORATORYCLIA [id number] [address] OF [facility] Hemoglobin (Bld) [Mass/Vol] 12.3 g/dL Low 13.0-17.0 [facility] Comment on above: Order Comment: Speci men Type: BLOOD SPECIMENOrdering Facility: [facility] Address: [address] [place] [address] Performed By: #### 5 8410-2 ####[facility] LABORATORYCLIA [id number] [address] MCH (RBC) [Entitic mass] 24.0 pg Low 26.0-34.0 [facility] Comment on above: Order Comment: Speci men Type: BLOOD SPECIMENOrdering Facility: [facility] Address: [address] [place] [address] Performed By: #### 5 8410-2 ####[facility] LABORATORYCLIA [id number] [address] [place] MCHC (RBC) [Mass/Vol] 31.1 g/dL Normal 30.5-36.0 [facility] Comment on above: Order Comment: Speci men Type: BLOOD SPECIMENOrdering Facility: [facility] Address: [address] [place] [address] Performed By: #### 5 8410-2 ####[facility] LABORATORYCLIA [id number] [address] MCV (RBC) [Entitic vol] 77.0 fL Low 80.0-100.0 [facility] Comment on above: Order Comment: Speci men Type: BLOOD SPECIMENOrdering Facility: [facility] Address: [address] [place] [address] Performed By: #### 5 8410-2 ####[facility] LABORATORYCLIA [id number] [address] [place] Nucleated RBC (Bld) [#/Vol] 10*3/uL Normal <0.01 [facility] Comment on above: Order Comment: Speci men Type: BLOOD SPECIMENOrdering Facility: [facility] Address: [address] [place] [address] Performed By: #### 5 8410-2 ####[facility] LABORATORYCLIA [id number] [address] [place] Platelet mean volume (Bld) [Entitic vol] 12.1 fL Normal 9.0-12.7 [facility] Comment on above: Order Comment: Speci men Type: BLOOD SPECIMENOrdering Facility: [facility] Address: [address] [place] [address] Performed By: #### 5 8410-2 ####[facility] LABORATORYCLIA [id number] [address] [place] Platelets (Bld) [#/Vol] 191 10*3/uL Normal 150-400 [facility] Comment on above: Order Comment: Speci men Type: BLOOD SPECIMENOrdering Facility: [facility] Address: [address] [place] [address] Performed By: #### 5 8410-2 ####[facility] LABORATORYCLIA [id number] [place] [address] [place] RBC (Bld) [#/Vol] 5.13 10*6/uL Normal 4.20-6.00 [facility] Comment on above: Order Comment: Speci men Type: BLOOD SPECIMENOrdering Facility: [facility] Address: [address] [place] [address] Performed By: #### 5 8410-2 ####[facility] LABORATORYCLIA [id number] [place] [address] [place] WBC (Bld) [#/Vol] 6.46 10*3/uL Normal 3.70-11.00 [facility] Comment on above: Order Comment: Speci men Type: BLOOD SPECIMENOrdering Facility: [facility] Address: [address] [place] [id number] Performed By: #### 5 8410-2 ####[facility] LABORATORYCLIA [id number] [address] [place] CONSULTon 08-10-2024 CONSULT HNO ID: [id number] Author: MADALYN MCMILLAN MD Service: Gastroenterology Author Type: ? Type: Consults Filed: 08/10/2024 18:16 Note Text: ----- Attestation signed by Madalyn Mcmillan MD at 08/10/2024 6:16 PM TEACHING PHYSICIAN NOTE OF PERSONAL INVOLVEMENT IN CARE: I have personally seen and examined the patient and performed the medical decision-making components. I have reviewed the medical student documentation and verified the findings in the note as written. Any additions or changes are noted in bold/italics. Ministerio Leal is a 64 year old male with [...] Madalyn Mcmillan Date: 08/10/2024 Time: 3:54 PM ----- IMPRESSION AND PLAN Mr. Leal is a 64 year old male with [...] with his work. Today, hepresented to the [place] [facility] and was transferred here for the [...] SPINE FUSION 2010 CHOLECYSTECTOMY 2007 EGD 12/2022 ESOPHAGOGASTRODUODENOSCOP Y TRANSORAL DIAGNOSTIC 09/2014 EGD PAST SURGICAL HISTORY [...] removed FAMILY HISTORY: FAMILY HISTORY Problem Relation A (more content not included)... Normal [facility] CT ABD/PEL W IVCONon 025 CT ABD/PEL W IVCON * * *Final Report* * * DATE OF EXAM: Aug 10 2024 2:17PM [facility] 0530 - CT ABD/PEL W IVCON / [...] component of stenosis within the SMA stent Life Skills Instructor: [facility] Transcribe Date/Time: Aug 11 2024 8:10A Dictated by : STEVE ARTIS MD This examination was interpreted and the report reviewed and electronically signed by: STEVE ARTIS MD on Aug 11 2024 8:37AM EST [id number] Normal [facility] HISTORY PHYSICALon HISTORY PHYSICAL HNO ID: [id number] Author: LACEY ARROYO MD Service: General Surgery Author Type: Resident Type: H&P Filed: 08/10/2024 09:15 Note Text: ----- Attestation signed by Lacey Arroyo MD at 08/10/2024 9:15 AM I personally saw and examined the patient. I reviewed the resident's note. I agree with the resident's assessment and plan except as noted below. Plan of care discussed with: Provider, RN, Patient. ----- BLUE ELECTIVE SURGERY SERVICE HANDP SERVICE DATE: 08/10/2024 SERVICE TIME: 8:13 AM Subjective Mr. Leal is a 64 year old male with PMHx GERD, hiatal hernia, mesenteric artery stenosis, arthritis, who presents today as direct admit for ongoing abdominal pain. Patient reports having surgery scheduled for later this month, called Dr. Arroyo's office due to ongoing abdominal pain, was told to come into hospital for evaluation and possible EGD, CTE. Patient has history of distal gastrectomy on 01/20/2023 (Dr. Lewis) complicated by takeback for bleeding (Dr. Arroyo). He was recently scoped by GI in May 2024 and noted to have sigmoid colon stricture. Patient was seen in office by Dr. Arroyo on and CT enterography was ordered, which [...] SPINE FUSION 2010 CHOLECYSTECTOMY 2007 EGD 12/2022 ESOPHAGOGASTRODUODENOSCOP Y TRANSORAL DIAGNOSTIC 09/2014 EGD PAST SURGICAL HISTORY [...] Drug use: No Comment: used to smoke marijuanna, 3 to 4 days per week hyoscyamine [...] Noted Reaction OMEPRAZOLE 05/26/2015 Other: See Comments ERIN 02/09/2023 Unknown Full (more content not included)... Normal [facility] Absolute neutrophil countOrd ered By: Aspen Hurst on 08-09-2024 Neutrophils (Bld) [#/Vol] 6.0 10*3/uL 2.0-7.7 [facility] Albumin to globulin ratioOrd ered By: Aspen Hurst on 08-09-2024 Albumin/Globulin [Mass ratio] 1.0 {ratio} 0.9-2.4 [facility] Basophil percentageOrdered B y: Aspen Hurst on 08-09-2024 Basophils/100 WBC (Bld) 0.8 % 0-1 [facility] Bilirubin Test strip Ql (U)O rdered By: Aspen Hurst on 08-09-2024 Bilirubin Ql (U) 1 mg/dL High Negative [facility] Comment on above: COLOR OF URINE MAY A FFECT DIPSTICK RESULTS. Bilirubin, totalOrdered By: Aspen Hurst on 08-09-2024 Bilirubin [Mass/Vol] 0.70 mg/dL 0.20-1.00 [facility] Comment on above: For patients on eltr ombopag therapy, use of Dimension Wiggins TBIL is not recommended. Blood urea nitrogen (BUN)/cr eatinine ratioOrdered By: Aspen Hurst on 08-09-2024 Urea nitrogen/Creatinine [Mass ratio] 17.1 mg/mg 10-20 [facility] CBC W/Diff, Automatedon 07-24 PLT EST A Normal ADEQ [facility] Comment on above: Performed By: #### L [phone] #### [facility] Laboratory [facility] [place], [address] CTA Abd/Pelvis W/WO Contrast on 08-09-2024 CTA Abd/Pelvis W/WO Contrast [facility] Imaging Services [place], [place] [id number] CTA Abd/Pelvis W/WO Contrast MR#: [id number] Acct: [id number] Name: MINISTERIO LEAL Rep #: [id number] : 1960 M 64 From: [place] PCP: Dr. Hitesh Dia MD Status: REG ER Study: CTA Abd/Pelvis W/WO Contrast Date of Exam: Exam# [id number] Ordering Dr: Aspen Hurst DO PROCEDURE: CTA abdomen pelvis REASON FOR EXAM: Pain, stenosis TECHNIQUE: Multiple contiguous axial images through the abdomen and pelvis were obtained after the administration of intravenous contrast. Two-dimensional and three-dimensional MIP coronal and sagittal reformatted images were reconstructed. Low-dose imaging technique was utilized. COMPARISON: 12/30/2023 FINDINGS: Lung bases are clear. Liver, spleen, pancreas and adrenal glands are within normal limits. Gallbladder is surgically absent with expected mild prominence of the biliary ducts. Postsurgical changes of the stomach. Kidneys enhance symmetrically. No suspicious renal mass, calculi or hydronephrosis. Urinary bladder is intact. Underdistended sigmoid colon which somewhat limits its assessment. Sigmoid diverticula. No bowel obstruction, focal bowel wall thickening or significant perienteric inflammation. No pelvic free fluid. No free air or pneumatosis. No abdominal aortic aneurysm, dissection or thrombosis. Celiac and superior mesenteric artery stents which appear patent. No significant renal artery stenosis. Mild multifocal stenosis of the common iliac arteries. No suspicious adenopathy. Superficial soft tissues are within normal limits. No acute osseous abnormality. CT/CTA Abd/Pelvis W/WO Contrast IMPRESSION: 1. No aneurysm, dissection or branch vessel occlusion. Patent celiac and SMA stents. 2. No obstruction or acute inflammatory process. One or more dose reduction techniques were used (e.g., Automated exposure control, adjustment of the mA and/or kV according to patient size, use of iterative reconstruction technique). Reading Location: [facility] CC: Dr. Aspen Hurst DO; Dr. Hitesh Dai MD Life Skills Instructor: Signed Normal [facility] Carbon dioxide measurementOr dered By: Aspen Hurst on 08-09-2024 CO2 [Moles/Vol] 24.0 mmol/L 21.0-32.0 [facility] Chloride measurementOrdered By: Aspen Hurst on 08-09-2024 Chloride [Moles/Vol] 101 mmol/L 98-107 [facility] Comprehensive Metabolic Prof ilon 08-09-2024 Albumin [Mass/Vol] 3.8 g/dL Normal 3.2-5.0 [facility] Comment on above: Performed By: #### L 503.6005 #### [facility] [address] [place], [address] Albumin/Globulin [Mass ratio] 1.0 {ratio} Normal 0.9-2.4 [facility] Comment on above: Performed By: #### L [id number] #### [facility] [address] [place], [address] ALK P 135 U/L High 45-117 [facility] Comment on above: Performed By: #### L [id number] #### [facility] [address] [place], [address] ALT [Catalytic activity/Vol] 22 U/L Normal 16-61 [facility] Comment on above: Performed By: #### L [id number] #### [facility] [address] [place], [address] AST [Catalytic activity/Vol] 33 U/L Normal 15-37 [facility] Comment on above: Result Comment: Mode rate Hemolysis, Result may be falsely increased. Performed By: #### L [id number] #### [facility] [address] [place], [address] Bilirubin [Mass/Vol] 0.70 mg/dL Normal 0.20-1.00 [facility] Comment on above: Result Comment: For patients on eltrombopag therapy, use of Dimension Wiggins TBIL is not recommended. Performed By: #### L 503.6005 #### [facility] [address] [place], [address] BUN/CRE 17.1 RATIO Normal 10-20 [facility] Comment on above: Performed By: #### L [id number] #### [facility] [address] [place], [address] CA,Total 9.7 mg/dL Normal 8.5-10.1 [facility] Comment on above: Performed By: #### L [id number] #### [facility] [address] [place], [address] Chloride [Moles/Vol] 101 mmol/L Normal 98-107 [facility] Comment on above: Performed By: #### L [id number] #### [facility] [address] [place], [address] CO2 [Moles/Vol] 24.0 mmol/L Normal 21.0-32.0 [facility] Comment on above: Performed By: #### L 503.6005 #### [facility] [address] [place], [address] Creatinine [Mass/Vol] 1.11 mg/dL Normal 0.70-1.30 [facility] Comment on above: Result Comment: The validity of the calculated GFR GFRAA in patients over 70 years has not been determined. Clinical correlation is essential. Performed By: #### L 503.6005 #### [facility] [address] [place], [address] ECRCL 45.84 ml/min Normal [facility] Comment on above: Performed By: #### L [id number] #### [facility] [address] [place], [address] EST GFR - AA 86 mL/min Normal >60 [facility] Comment on above: Result Comment: Afri can Bhutanese GFR Calc Performed By: #### L 503.6005 #### [facility] [address] [place], [address] GAP 10 Normal 5-15 [facility] Comment on above: Performed By: #### L [id number] #### [facility] [address] [place], [address] GFR/1.73 sq M.predicted among non-blacks MDRD (S/P/Bld) [Vol rate/Area] 71 mL/min/{1.73_m2} Normal >60 [facility] Comment on above: Result Comment: Non- GFR Calc Performed By: #### L 503.6005 #### [facility] [address] [place], [address] Globulin (S) [Mass/Vol] 4.0 g/dL Normal 2.2-4.2 [facility] Comment on above: Performed By: #### L 503.6005 #### [facility] [address] [place], [address] Glucose [Mass/Vol] 112 mg/dL High 74-106 [facility] Comment on above: Result Comment: Fast ing Glucose result from 100 to 125 mg/dL suggests IMPAIRED HOMEOSTASIS per A.D.A. criteria. Performed By: #### L 503.6005 #### [facility] [address] [place], [address] Potassium [Moles/Vol] 4.0 mmol/L Normal 3.5-5.1 [facility] Comment on above: Result Comment: Mode rate Hemolysis, Result may be falsely increased. Performed By: #### L 503.6005 #### [facility] [address] [place], [address] Sodium [Moles/Vol] 134 mmol/L Low 136-145 [facility] Comment on above: Performed By: #### L 503.6005 #### [facility] [address] [place], [address] T PROT 7.8 g/dL Normal 6.4-8.2 [facility] Comment on above: Performed By: #### L [id number] #### [facility] [address] [place], [place], [address] Urea nitrogen [Mass/Vol] 19 mg/dL High 7-18 [facility] Comment on above: Performed By: #### L [id number] #### [facility] [address] [place], [place], [address] Emergency Department Summary on 08-09-2024 Emergency Department Summary [facility] Medical Records Department [address] [place] [address] Emergency Department Summary 08/09/24 MR#: [id number] Acct: [id number] Name: MINISTERIO LEAL Rep #: [id number] : 1960 64 From: Aspen Hurst DO PCP: Dr. Hitesh Dai MD Status:REG ER Location: ED HPI HPI - GI History of Present Illness Chief Complaint: Abd Pain Informant: patient Narrative Narrative: Patient is a 64-year-old male with history of liver failure, IBS, prior SMA and celiac artery stents, prior rupture of his stomach with partial resection and what sounds like stenosis/stricture of the colon presenting from home for worsening abdominal pain. States he had pain for the past 3 days but it has been intermittent. Became much worse today. States he spoke with his surgeon in [facility], Dr. Baca. Patient states his doctor told him that he needs to go to the ER and told that they need to call him immediately and the patient need to be transferred to [facility]. Patient was told he needs part of his bowel resected. He is had 3-4 bowel movements over the past few days and did have a hard bowel movement today. He is had nausea. Has had decreased oral intake and feels very dehydrated. No show past 2 days he has had continued urination but feels that he ran out of urine today. He denies any vomiting. States this pain feels different than when he needed his SMA/celiac stents. Does not report any fevers. No other complaints or concerns at this time. [facility] Medical History Marijuana use Restless legs History of stress test Liver failure Superior mesenteric artery syndrome Mesenteric ischemia, chronic Wears glasses Arthritis High cholesterol Migraine headache Injury of head and neck History of GI bleed Difficulty swallowing History of ulceration History of IBS History of diverticulitis Smoker Celiac artery stenosis Mesenteric artery stenosis Home Medications ???Medication ???Instructions ???Recorded ???Last Taken ???Type clopidogrel 75 mg tablet 75 mg PO QHS BLOOD THINNER 7 01/04/23 History rosuvastatin 10 mg tablet 10 mg PO QHS CHOLESTEROL 06/08/18 11/11/22 History aspirin 81 mg tablet,delayed 81 mg PO DAILY [facility] 01/04/23 History release pantoprazole 20 mg tablet,delayed 20 mg PO QHS ACID REFLUX 11/12/22 11/11/22 History release ondansetron 4 mg disintegrating 4 mg PO Q8H PRN PRN Nausea #10 tab s 12/30/23 Unknown Rx tablet hydrocodone-acetaminophen 5-325mg 1 tab PO Q6H PRN pain 5 days #14 08/05/24 Unknown Rx 5mg-325mg tabs hyoscyamine sulfate 0.125 mg tablet 0.125 mg PO Q4H PRN PRN diarrhe a 08/05/24 Unknown History Allergy/AdvReac Type Severity Reaction Status Date / Time senna Allergy Anaphylaxis Verified 08/09/24 20:53 omeprazole AdvReac Other Verified 08/09/24 20:53 Family History Father Colon cancer Mother COPD (chronic obstructive pulmonary disease) Lung cancer Concurrent tobacco use history. Surgical History Hx of resection of stomach Hx of myringotomy History of liver biopsy Hx of surgical procedure Hx of colonoscopy Hx of cervical spine surgery History of esophagogastroduodenoscop y (EGD) History of cholecystectomy Social History household members: spouse Smoking Status: Current every day smoker tobacco type: cigarettes how long ago did patient quit smoking: Cut back over 2-3 weeks, down to 3 cig/day 10/09/22. alcohol intake: current alcohol intake frequency: a few times a month details: occasional use substance use type: does not use ROS ROS ED Constitutional Constitutional ED: Denies chills or fever(s) Respiratory/Chest Respiratory/Chest: Denies cough Gastrointestinal Gastrointestinal: Reports abdominal pain and nausea; Denies constipation, diarrhea or vomiting Genitourinary Genitourinary ED: Reports urinary frequency; Denies dysuria Musculoskeletal Musculoskeletal: Denies arthralgias or myalgias Integumentary Denies rash Neurologic Neurologic: Denies paresthesias or weakness Hematologic/Lymphatic Hematologic/Lymphatic: Reports other Details: on ASA and plavix ; Denies easy bleeding or easy bruising EXAM Physical Exam Const Vital Signs: 08/09/24 20:52 08/09/24 20:56 08/09/24 21:56 Temperature 98.4 F 98.4 F 98.4 F Temperature Source Temporal Oral Oral Pulse Rate 123 H 91 77 Respiratory Rate 17 18 18 Blood Pressure 165/100 H 115/87 H 126/87 H Blood Pressure Mean 121 96 100 Pulse Ox 98 99 97 Oxygen Delivery Method Room Air Room Air Room Air 08/09/24 22:00 08/09/24 23:00 (more content not included)... Normal [facility] Eosinophil percentageOrdered By: Aspen Hurst on 08-09-2024 Eosinophils/100 WBC (Bld) 0.7 % 0-5 [facility] Epithelial cells.squamous LM Ql (Urine sed)Ordered By: Aspen Hurst on 08-09-2024 Epithelial cells.squamous LM.HPF (Urine sed) [#/Area] 0 /[HPF] 0-5 [facility] Erythrocyte distribution wid th (RBC) [Ratio]Ordered By: Aspen Hurst on 08-09-2024 Erythrocyte distribution width (RBC) [Entitic vol] 47.7 fL High 35.1-43.9 [facility] Erythrocyte distribution wid th ratioOrdered By: Aspen Hurst on 08-09-2024 Erythrocyte distribution width (RBC) [Ratio] 19.7 % High 11.6-14.6 [facility] Estimated glomerular filtrat ion rate (GFR) AmericanOrdered By: Aspen Hurst on 08-09-2024 Estimated GFR (MDRD) Amer 86 mL/min >60 [facility] Comment on above: GFR Calc Estimation of creatinine joana aranceOrdered By: Aspen Hurst on 08-09-2024 Estimated Creatinine Clearance Calc 45.84 ml/min [facility] Fine Granular Casts LM.LPF ( Urine sed) [#/Area]Ordered By: Aspen Hurst on 08-09-2024 Urine Fine Granular Casts 0-5 SEEN /lpf 0-5 [facility] Glomerular filtration rate ( GFR) estimationOrdered By: Aspen Hurst on 08-09-2024 Estimated GFR (MDRD) Non-Af Amer 71 mL/min >60 [facility] Comment on above: Non- GFR Calc Glucose Ql (U)Ordered By: Eric Hurst on 08-09-2024 Urine Glucose (UA) Normal mg/dl Normal [facility] Glucose measurementOrdered B y: Aspen Hurst on 08-09-2024 Glucose [Mass/Vol] 112 mg/dL High 74-106 [facility] Comment on above: Fasting Glucose resu lt from 100 to 125 mg/dL suggests IMPAIRED HOMEOSTASIS per A.D.A. criteria. Hematocrit Auto (Bld) [Volum e fraction]Ordered By: Aspen Hurst on 08-09-2024 Hematocrit (Bld) [Volume fraction] 39.3 % Low 40-54 [facility] Hemoglobin measurementOrdere d By: Aspen Hurst on 08-09-2024 Hemoglobin (Bld) [Mass/Vol] 12.8 g/dL Low 13.0-16.5 [facility] Hyaline casts LM.LPF (Urine sed) [#/Area]Ordered By: Aspen Hurst on 08-09-2024 Hyaline casts LM Ql (Urine sed) 5-10 SEEN /lpf 0-5 [facility] Immature granulocytes/100 WB C Auto (Bld)Ordered By: Aspen Hurst on 08-09-2024 Immature granulocytes/100 WBC (Bld) 0.400 % 0.0-0.9 [facility] Comment on above: IG% - Immature Granu locytes (promyelocytes, myelocytes and metamyelocytes) > 1% indicates that a LEFT SHIFT is Present. Ketones Test strip Ql (U)Ord ered By: Aspen Husrt on 08-09-2024 Ketones Ql (U) 50 mg/dl High Negative [facility] Laboratory - Chemistry and C hemistry - challengeOrdered By: Aspen Hurst on 08-09-2024 AST [Catalytic activity/Vol] 33 U/L 15-37 [facility] Comment on above: Moderate Hemolysis, Result may be falsely increased. Lactic Acidon 08-09-2024 Lactate [Moles/Vol] 1.2 mmol/L Normal 0.4-1.9 [facility] Comment on above: Order Comment: Y Performed By: #### L 503.6005 #### [facility] [address] [place], [address] Lactic acid measurementOrder ed By: Aspen Hurst on 08-09-2024 Lactate [Moles/Vol] 1.2 mmol/L 0.4-2.0 [facility] Lymphocytes Auto (Unsp spec) [#/Vol]Ordered By: Aspen Hurst on 08-09-2024 Lymphocytes (Bld) [#/Vol] 1.77 10*3/uL 0.83-4.51 [facility] Lymphocytes/100 WBC Auto (Un sp spec)Ordered By: Aspen Hurst on 08-09-2024 Lymphocytes/100 WBC (Bld) 19.4 % 19-41 [facility] MCV (mean corpuscular volume ) determinationOrdered By: Aspen Hurst on 08-09-2024 MCV (RBC) [Entitic vol] 72.0 fL Low 80-94 [facility] Mean corpuscular hemoglobin (MCH) determinationOrdered By: Aspen Hurst on 08-09-2024 MCH (RBC) [Entitic mass] 23.4 pg Low 27.0-32.0 [facility] Mean corpuscular hemoglobin concentration (MCHC) determinationOrdered By: Aspen Hurst on 08-09-2024 MCHC (RBC) [Mass/Vol] 32.6 g/dL 32-36 [facility] Mean platelet volume determi nationOrdered By: Aspen Hurst on 08-09-2024 Mean Platelet Volume TNP [facility] Comment on above: Test not performed Microscopic analysis of urin e for red blood cells (RBC)Ordered By: Aspen Hurst on 08-09-2024 Urine RBC 0 SEEN /hpf 0-5 [facility] Monocyte percentageOrdered B y: Aspen Hurst on 08-09-2024 Monocytes/100 WBC (Bld) 13.3 % High 0-10 [facility] Mucus LM Ql (Urine sed)Order ed By: Aspen Hurst on 08-09-2024 Mucus Ql (Urine sed) 2+ /hpf [facility] Neutrophil percentageOrdered By: Aspen Hurst on 08-09-2024 Neutrophils/100 WBC (Bld) 65.4 % 47-70 [facility] Nitrite Test strip Ql (U)Ord ered By: Aspen Hurst on 08-09-2024 Nitrite Ql (U) Negative Negative [facility] Nucleated red blood cell per centageOrdered By: Aspen Hurst on 08-09-2024 Nucleated RBC/100 WBC (Bld) [Ratio] 0 % 0-5 [facility] Platelet countOrdered By: Eric Hurst on 08-09-2024 Platelets (Bld) [#/Vol] 240 10*3/uL 150-450 [facility] Platelets LM Ql (Bld)Ordered By: Aspen Hurst on 08-09-2024 Platelet Estimate A ADEQ [facility] Potassium measurementOrdered By: Aspen Hurst on 08-09-2024 Potassium [Moles/Vol] 4.0 mmol/L 3.5-5.1 [facility] Comment on above: Moderate Hemolysis, Result may be falsely increased. Protein Test strip Ql (U)Ord ered By: Aspen Hurst on 08-09-2024 Protein Ql (U) 30 mg/dl High Negative [facility] RBC Auto (Bld) [#/Vol]Ordere d By: Aspen Hurst on 08-09-2024 RBC (Bld) [#/Vol] 5.46 10*6/uL 4.6-6.2 [facility] Serum anion gap measurementO rdered By: Aspen Hurst on 08-09-2024 Anion gap [Moles/Vol] 10 mmol/L 5-15 [facility] Serum globulin measurementOr dered By: Aspen Hurst on 08-09-2024 Globulin (S) [Mass/Vol] 4.0 g/dL 2.2-4.2 [facility] Serum or plasma alanine nicolas otransferase (ALT) measurementOrdered By: Aspen Hurst on 08-09-2024 ALT [Catalytic activity/Vol] 22 U/L 16-61 [facility] Serum or plasma albumin gideon urement (mass/volume)Ordered By: Aspen Hurst on 08-09-2024 Albumin [Mass/Vol] 3.8 g/dL 3.2-5.0 [facility] Serum or plasma alkaline adam sphatase measurementOrdered By: Aspen Hurst on 08-09-2024 ALP [Catalytic activity/Vol] 135 U/L High 45-117 [facility] Serum or plasma calcium gideon urement (mass/volume)Ordered By: Aspen Hurst on 08-09-2024 Calcium [Mass/Vol] 9.7 mg/dL 8.5-10.1 [facility] Serum or plasma creatinine m easurement (mass/volume)Ordered By: Aspen Hurst on 08-09-2024 Creatinine [Mass/Vol] 1.11 mg/dL 0.70-1.30 [facility] Comment on above: The validity of the calculated GFR & GFRAA in patients over 70 years has not been determined. Clinical correlation is essential. Serum or plasma urea nitroge n measurement (mass/volume)Ordered By: Aspen Hurst on 08-09-2024 Urea nitrogen [Mass/Vol] 19 mg/dL High 7-18 [facility] Sodium levelOrdered By: Kelsey Hurst on 08-09-2024 Sodium [Moles/Vol] 134 mmol/L Low 136-145 [facility] Total proteinOrdered By: Diana Hurst on 08-09-2024 Protein [Mass/Vol] 7.8 g/dL 6.4-8.2 [facility] Urinalysis, Completeon 08-09 CAST,FINE GRAN 0-5 SEEN Normal 0-5 [facility] Comment on above: Order Comment: HANS CTOR TO SPECIFY Performed By: #### L [id number] #### [facility] [address] [place], [address] BACTERIA 1+ /hpf Normal None Seen [facility] Comment on above: Order Comment: HANS CTOR TO SPECIFY Performed By: #### L [id number] #### [facility] [address] [place], [address] CAST,HYALINE 5-10 SEEN Normal 0-5 [facility] Comment on above: Order Comment: HANS CTOR TO SPECIFY Performed By: #### L [id number] #### [facility] [address] [place], [address] Mucus Ql (Urine sed) 2+ /hpf Normal [facility] Comment on above: Order Comment: HANS CTOR TO SPECIFY Performed By: #### L [id number] #### [facility] [address] [place], [address] RBC 0 SEEN Normal 0-5 [facility] Comment on above: Order Comment: HANS CTOR TO SPECIFY Performed By: #### L [id number] #### [facility] [address] [place], [address] WBC 5-10 SEEN Normal 0-5 [facility] Comment on above: Order Comment: HANS CTOR TO SPECIFY Performed By: #### L [id number] #### [facility] [address] [place], [address] BILIRUBIN URINE 1 mg/dL Abnormal Negative [facility] Comment on above: Order Comment: HANS CTOR TO SPECIFY Result Comment: COLO R OF URINE MAY AFFECT DIPSTICK RESULTS. Performed By: #### L [id number] #### [facility] [address] [place], [address] Clarity (U) Sl. Cloudy Normal Clear [facility] Comment on above: Order Comment: COLLE CTOR TO SPECIFY Performed By: #### L [id number] #### [facility] [address] [place], [address] Color (U) Yellow Normal Yellow [facility] Comment on above: Order Comment: COLLE CTOR TO SPECIFY Performed By: #### L [id number] #### [facility] [address] [place], [address] GLUCOSE, UR Normal Normal Normal [facility] Comment on above: Order Comment: HANS CTOR TO SPECIFY Performed By: #### L [id number] #### [facility] [address] [place], [address] KETONE UR 50 mg/dl Abnormal Negative [facility] Comment on above: Order Comment: COLLE CTOR TO SPECIFY Performed By: #### L [id number] #### [facility] [address] [place] [address] LEUK ESTERASE 25 /ul Abnormal Negative [facility] Comment on above: Order Comment: HANS CTOR TO SPECIFY Performed By: #### L [id number] #### [facility] [address] [place], [address] Nitrite Ql (U) Negative Normal Negative [facility] Comment on above: Order Comment: COLLE CTOR TO SPECIFY Performed By: #### L [id number] #### [facility] [address] [place], [address] OCCULT BLOOD-UR 10 /ul Abnormal Negative [facility] Comment on above: Order Comment: HANS CTOR TO SPECIFY Performed By: #### L [id number] #### [facility] [address] [place] [id number] pH UR 6.0 Normal 5.0 - 8.0 [facility] Comment on above: Order Comment: COLLE CTOR TO SPECIFY Performed By: #### L [id number] #### [facility] [address] [place], [address] PROT DIPSTX 30 mg/dl Abnormal Negative [facility] Comment on above: Order Comment: COLLE CTOR TO SPECIFY Performed By: #### L [id number] #### [facility] [address] [place], [address] SP.GR. DIPSTX 1.020 Normal 1.002-1.03 0 [facility] Comment on above: Order Comment: COLLE CTOR TO SPECIFY Performed By: #### L [id number] #### [facility] [address] [place], [address] UROBILI 1 mg/dl Abnormal Normal [facility] Comment on above: Order Comment: HANS CTOR TO SPECIFY Performed By: #### L 400.0001 #### [facility] [address] [place], [address] EPI,SQUAMOUS 0 SEEN Normal 0-5 [facility] Comment on above: Order Comment: HANS CTOR TO SPECIFY Performed By: #### L 400.0001 #### [facility] [address] [place], [address] BACTERIA Normal None Seen [facility] Comment on above: Order Comment: Y Result Comment: ELEAZAR SARABIA, SEE 0217:U49 Performed By: #### L 503.6005 #### [facility] [address] [place], [address] BILIRUBIN URINE Normal Negative [facility] Comment on above: Order Comment: Y Result Comment: ELEAZAR SARABIA, SEE 0217:U49 Performed By: #### L 503.6005 #### [facility] [address] [place], [address] Clarity (U) Normal Clear [facility] Comment on above: Order Comment: Y Result Comment: ELEAZAR SARABIA, SEE 0217:U49 Performed By: #### L 503.6005 #### [facility] [address] [place], [address] Color (U) Normal Yellow [facility] Comment on above: Order Comment: Y Result Comment: ELEAZAR SARABIA, SEE 0217:U49 Performed By: #### L 503.6005 #### [facility] [address] [place], [address] EPI,SQUAMOUS Normal 0-5 [facility] Comment on above: Order Comment: Y Result Comment: ELEAZAR SARABIA, SEE 021:U49 Performed By: #### L 503.6005 #### [facility] [address] [place], [address] GLUCOSE, UR Normal Normal [facility] Comment on above: Order Comment: Y Result Comment: ELEAZAR SARABIA, SEE 216:U49 Performed By: #### L 503.6005 #### [facility] [address] [place], [address] KETONE UR Normal Negative [facility] Comment on above: Order Comment: Y Result Comment: ELEAZAR SARABIA, SEE 216:U49 Performed By: #### L 503.6005 #### [facility] [address] [place], [address] LEUK ESTERASE Normal Negative [facility] Comment on above: Order Comment: Y Result Comment: ELEAZAR SARABIA, SEE 216:U49 Performed By: #### L 503.6005 #### [facility] [address] [place], [address] Mucus Ql (Urine sed) Normal [facility] Comment on above: Order Comment: Y Result Comment: EELAZAR SARABIA, SEE 216:U49 Performed By: #### L 503.6005 #### [facility] [address] [place], [address] Nitrite Ql (U) Normal Negative [facility] Comment on above: Order Comment: Y Result Comment: ELEAZAR SARABIA, SEE 0217:U49 Performed By: #### L 503.6005 #### [facility] [address] [place], [address] OCCULT BLOOD-UR Normal Negative [facility] Comment on above: Order Comment: Y Result Comment: ELEAZAR SARABIA, SEE 0217:U49 Performed By: #### L 503.6005 #### [facility] [address] [place], [address] pH UR Normal 5.0 - 8.0 [facility] Comment on above: Order Comment: Y Result Comment: ELEAZAR SARABIA, SEE 021:U49 Performed By: #### L 503.6005 #### [facility] [address] [place], [address] PROT DIPSTX Normal Negative [facility] Comment on above: Order Comment: Y Result Comment: ELEAZAR SARABIA, SEE 0217:U49 Performed By: #### L 503.6005 #### [facility] [address] [place], [address] RBC Normal 0-5 [facility] Comment on above: Order Comment: Y Result Comment: ELEAZAR SARABIA, SEE 0217:U49 Performed By: #### L 503.6005 #### [facility] [address] [place], [address] SP.GR. DIPSTX Normal 1.002-1.03 0 [facility] Comment on above: Order Comment: Y Result Comment: ELEAZAR SARABIA, SEE 0217:U49 Performed By: #### L 503.6005 #### [facility] [address] [place], [address] UR Preservative Normal [facility] Comment on above: Order Comment: Y Result Comment: ELEAZAR SARABIA, SEE 0217:U49 Performed By: #### L 503.6005 #### [facility] [address] [place], [address] UROBILI Normal Normal [facility] Comment on above: Order Comment: Y Result Comment: ELEAZAR SARABIA, SEE 0217:U49 Performed By: #### L 503.6005 #### [facility] [address] [place], [address] WBC Normal 0-5 [facility] Comment on above: Order Comment: Y Result Comment: ELEAZAR SARABIA, SEE 0217:U49 Performed By: #### L 503.6005 #### [facility] [address] [place], [address] Urine blood detectionOrdered By: Aspen Hurst on 08-09-2024 Urine Occult Blood 10 /ul High Negative [facility] Urine clarityOrdered By: Diana Hurst on 08-09-2024 Clarity (U) Sl. Cloudy Clear [facility] Urine color determinationOrd ered By: Aspen Hurst on 08-09-2024 Color (U) Yellow Yellow [facility] Urine leukocyte esterase det ection by dipstickOrdered By: Aspen Hurst on 08-09-2024 Leukocyte esterase Test strip Ql (U) 25 /ul High Negative [facility] Urine pHOrdered By: Aspen orozco on 08-09-2024 pH (U) 6.0 [pH] 5.0 - 8.0 [facility] Urine sediment bacteria coun t by microscopy (number/high power field)Ordered By: Aspen Hurst on 08-09-2024 Bacteria LM.HPF (Urine sed) [#/Area] 1 /[HPF] None Seen [facility] Urine specific gravity measu rementOrdered By: Aspen Hurst on 08-09-2024 Specific gravity (U) [Rel density] 1.020 1.002-1.03 0 [facility] Urobilinogen Ql (U)Ordered B y: Aspen Hurst on 08-09-2024 Urobilinogen (U) [Mass/Vol] 1 mg/dL High Normal [facility] White blood cell (WBC) count Ordered By: Aspen Hurst on 08-09-2024 WBC (Bld) [#/Vol] 9.1 10*3/uL 4.4-11.0 [facility] White blood cell countOrdere d By: Aspen Hurst on 08-09-2024 Urine WBC 5-10 SEEN /hpf 0-5 [facility] Emergency Department Summary on 08-05-2024 Emergency Department Summary [facility] Medical Records Department [address] [place] [address] Emergency Department Summary 08/05/24 MR#: [id number] Acct: [id number] Name: MINISTERIO LEAL Rep #: [id number] : 1960 64 From: Alexander Hernandez MD PCP: Dr. Hitesh Dai MD Status:REG ER Location: ED HPI History of Present Illness HPI Narrative: 64-year-old male with atraumatic left hip pain. Says he was feeling fine. No recent illness. Denies any fever or chills. Stood up and he said since he stood up he felt pain in his left hip and groin. No fall, injury or trauma. He has never had surgery to this hip. Denies any numbness or weakness. Denies any back or abdominal pain. 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 On Plavix. Complaining of left hip pain immediately when he stood up. Denies fall injury or trauma. No fever or chills. No redness or discoloration. No prior hip surgery. No prior pain like this in his hip. Denies any other complaints. Prior similar symptoms: No Recent Illness/Hospitalization: No PFSH PFSH Medical History Marijuana use Restless legs History of stress test Liver failure Superior mesenteric artery syndrome Mesenteric ischemia, chronic Wears glasses Arthritis High cholesterol Migraine headache Injury of head and neck History of GI bleed Difficulty swallowing History of ulceration History of IBS History of diverticulitis Smoker Celiac artery stenosis Mesenteric artery stenosis Home Medications ???Medication ???Instructions ???Recorded ???Last Taken ???Type clopidogrel 75 mg tablet 75 mg PO QHS BLOOD THINNER 7 01/04/23 History rosuvastatin 10 mg tablet 10 mg PO QHS CHOLESTEROL 06/08/18 11/11/22 History aspirin 81 mg tablet,delayed 81 mg PO DAILY [facility] 01/04/23 History release pantoprazole 20 mg tablet,delayed 20 mg PO QHS ACID REFLUX 11/12/22 11/11/22 History release ondansetron 4 mg disintegrating 4 mg PO Q8H PRN PRN Nausea #10 tab s 12/30/23 Unknown Rx tablet hydrocodone-acetaminophen 5-325mg 1 tab PO Q6H PRN pain 5 days #14 08/05/24 Unknown Rx 5mg-325mg tabs hyoscyamine sulfate 0.125 mg tablet 0.125 mg PO Q4H PRN PRN diarrhe a 08/05/24 Unknown History Allergy/AdvReac Type Severity Reaction Status Date / Time senna Allergy Anaphylaxis Verified 08/05/24 04:02 omeprazole AdvReac Other Verified 08/05/24 04:02 Family History Father Colon cancer Mother COPD (chronic obstructive pulmonary disease) Lung cancer Concurrent tobacco use history. Surgical History Hx of resection of stomach Hx of myringotomy History of liver biopsy Hx of surgical procedure Hx of colonoscopy Hx of cervical spine surgery History of esophagogastroduodenoscop y (EGD) History of cholecystectomy Social History household members: spouse Smoking Status: Current every day smoker tobacco type: cigarettes how long ago did patient quit smoking: Cut back over 2-3 weeks, down to 3 cig/day 10/09/22. alcohol intake: current alcohol intake frequency: a few times a month details: occasional use substance use type: does not use ROS ROS ED ROS Narrative Denies recent illness. Constitutional Constitutional ED: Denies chills or fever(s) Eyes Eyes: Denies blurry vision ENT ENT ED: Denies ear pain Cardiovascular Cardiovascular: Denies chest pain Respiratory/Chest Respiratory/Chest: Denies cough or dyspnea Gastrointestinal Gastrointestinal: Denies abdominal pain Genitourinary Genitourinary ED: Denies hematuria Musculoskeletal Musculoskeletal: Denies arthralgias, back pain, myalgias or neck pain Integumentary Denies abscess or Abrasions Neurologic Neurologic: Denies headache(s) Psychiatric Psychiatric: Denies anxiety or depression Endocrine Endocrinology: Denies polydipsia Hematologic/Lymphatic Hematologic/Lymphatic: Denies lymphadenopathy Allergic/Immunologic Allergic/Immunologic ED: Denies mouth swelling, tongue swelling or urticaria EXAM Physical Exam Narrative Exam Narrative: Well-appearing 64-year-old male. Vital signs stable afebrile. No family present at this time. Patient sitting upright in bed. Complaining of left hip pain. H (more content not included)... Normal [facility] Extremity Lower without Cont raon 08-05-2024 Extremity Lower without Contra [facility] Services [address] [place] [address] Extremity Lower without Contra MR#: [id number] Acct: [id number] Name: MINISTERIO LEAL Rep #: [id number] : 1960 M 64 From: Yanet Culver nd, MD PCP: Dr. Hitesh Dai MD Status: REG ER Study: Extremity Lower without Contra Date of Exam: 0 08/05/24 Exam# [id number] Ordering Dr: Alexander Hernandez MD PROCEDURE: EXTREMITY LOWER WITHOUT CONTRA REASON FOR EXAM: 64-year-old male, stood up and felt pain in left hip and groin. No known injury. TECHNIQUE: Left hip CT without contrast. COMPARISON: Same day left hip radiographs. FINDINGS: Bones: No evidence of fracture. Diffuse osseous demineralization. No aggressive osseous lesions. Joints: Mild left hip arthrosis.. No subluxation or dislocation. Soft Tissues: Unremarkable. No hematoma or subcutaneous edema. Visualized pelvic structures: Vascular calcifications. Dystrophic calcifications within the prostate. The visualized bowel and bladder are unremarkable. CT/Extremity Lower without Contra IMPRESSION: No acute finding. Mild left hip arthrosis. One or more dose reduction techniques were used (e.g., Automated exposure control, adjustment of the mA and/or kV according to patient size, use of iterative reconstruction technique). Reading Location: [facility] CC: Dr. Alexander Hernandez MD; Dr. Hitesh Dai MD Life Skills Instructor: Signed Normal [facility] HIP, UNI W/ Pelvis 2-3 Views on 08-05-2024 HIP, UNI W/ Pelvis 2-3 Views [facility] [address] [place], [place] [address] HIP, UNI W/ Pelvis 2-3 Views MR#: [id number] Acct: [id number] Name: MINISTERIO LEAL Rep #: [id number] : 1960 M 64 From: George Luna DO PCP: Dr. Hitesh Dai MD Status: [facility] ER Study: HIP, UNI W/ Pelvis 2-3 Views Date of Exam: Exam# [id number] Ordering Dr: Alexander Hernandez MD PROCEDURE: HIP, UNI W/ PELVIS 2-3 VIEWS REASON FOR EXAM: Atraumatic left hip pain TECHNIQUE: Two views of the left hip with PA view of the pelvis COMPARISON: None. FINDINGS: Left hip: Anatomic alignment. There is mild joint space loss. Trabecular markings are preserved. No acute fractures or dislocations are identified. Subtle calcification adjacent to the greater trochanter measuring 5 mm, and could represent tendinous calcification. No bony destructive lesions are seen. Similar-appearing mild joint space loss involving the right hip. Anatomic alignment of the bilateral SI joints and pubic symphysis. Remaining visualized osseous structures appear intact. RAD/HIP, UNI W/ Pelvis 2-3 Views IMPRESSION: Mild degenerative changes involving the left hip, as described No acute fractures or dislocations are identified. Reading [facility] CC: Dr. Alexander Hernandez MD; Dr. Hitesh Dai MD Life Skills Instructor: Signed Normal [facility] LEALMINISTERIO STEVENSON ([id number]) 1960 M Date Time Provider Department 08/04/24 MADALYN MCMILLAN During your visit today, we recorded the following information about you: Madelin Hoskins 08/04/2024 2:38 PM Signed Called pt to schedule EGD at [facility] with Dr Mcmillan, VM is full, unable to leave message Allergies As of Date: 08/04/2024 Noted Allergy Reaction OMEPRAZOLE 05/26/2015 14 - Other: See Comments Comments: Severe Headaches SENNA 02/09/2023 16 - Unknown Comments: Bottom lip swelled. Stopped swelling when senna dc Date Reviewed: 07/28/2024 Reviewed by: Lacey Arroyo MD - Fully Assessed Prescriptions as of [...] Encounter Status:Closed by MADELIN HOSKINS on 08/04/24 Normal [facility] CREATININE BLDon 08-02-2024 Creatinine [Mass/Vol] 0.98 mg/dL Normal 0.73-1.[address] [facility] Comment on above: Order Comment: Speci men Type: BLOOD SPECIMENOrdering Facility: [facility] Address: [address] [place] [address] [place] [address] Performed By: #### C RET1 ####[facility] [id number] [place] [address] [place] Creatinine and Glomerular filtration rate.predicted panel (S/P/Bld) 87 mL/min/1.73m??? Normal >=60 [facility] Comment on above: Order Comment: Speci men Type: BLOOD SPECIMENOrdering Facility: [facility] Address: [facility] [place] [address] Result Comment: Josi mated Glomerular Filtration Rate (eGFR) is calculated using the 2020 CKD-EPI creatinine equation. This equation utilizes serum creatinine, sex, and age as parameters. The creatinine assay has traceable calibration to isotope dilution-mass spectrometry. Refer to KDIGO guidelines for clinical interpretation. In patients with unstable renal function, e.g. those with acute kidney injury, the eGFR may not accurately reflect actual GFR. Performed By: #### C RET1 ####[facility] [id number] [place] [address] [place] CNOVon 07-28-2024 CNOV Office Visit (AGGENS 3) ----- MELMINISTERIO Reggie ([id number]) 1960 M Date Time Provider Department 07/28/24 2:30 PM LACEY ARROYO3 During your visit today, we recorded the following information about you: Pulse Blood pressure Weight Height 78/minute 108/72 52.2 kg 1.778 m Lacey Arroyo MD 07/30/2024 3:19 PM Signed Lacey Arroyo M.D. Surgical Oncology [address] [place] [address], [address] [place] [address] Plan SUBJECTIVE HPI Ministerio Reggie Leal is a 64 year old male presenting [...] family, and social history were reviewed by Lacey Arroyo MD. OBJECTIVE BP 108/72 Pulse 78 Ht [...] patient/family/caregiver, and ordering medications, tests, or procedures. Lacey Arroyo MD 07/28/2024 2:36 PM Referring Provider: GEORGE CULVER [[id number]] Allergies As of Date: 07/28/2024 Noted Allergy Reaction OMEPRAZOLE 05/26/2015 14 - Other: See Comments Comments: Severe Headaches SENNA 02/09/2023 16 - Unknown Comments: Bottom lip swelled. Stopped swelling when senna dc Date Reviewed: 07/28/2024 Reviewed by: Lacey Arroyo MD - Fully Assessed Reason for Visit: Follow Up [171] Cmt: Keep having abdominal pain attacks out of the blue Primary Visit Diagnosis:Inflammatory bowel disease [K52.9] Order(s):CT ENTEROGRAPHY W IVCON [5153018] Order #: [id number] FUTURE CREATININE BLD [SQCRET] Order #: [id number] FUTURE Prescriptions as of 07/30/2024 - hyos (more content not included)... Normal [facility] Rg 07-01-2024 VIC Telephone (BELKISASTN) ----- MINISTERIO LEAL ([id number]) 1960 M Date Time Provider Department 07/01/24 GEORGE CULVER During your visit today, we recorded the following information about you: George Culver MD 07/01/2024 11:20 AM Signed Plz call pt and LHK that he had a script of Levsin SL(under tongue) prn abd pain.Tried? I'm also sending him back to Dr. Arroyo to see his opinion re: his recurrent abd pain. Coral Sandoval MA 07/01/2024 11:24 AM Signed Left message to call back LELIA Aguilar Shawna, MA 07/01/2024 11:27 AM Signed Pt called back and informed referral given to Dr Arroyo office LELIA Aguilar Desaray, MA 07/02/2024 11:24 [...] MA July 02, 2024 11:18 AM Kristine Salinas PA-C 07/02/2024 1:54 PM Signed Ok sent levsin sublingual for him. Kristine Salinas PA-C 07/02/2024 1:54 PM Signed Addended by: KRISTINE SALINAS on: 07/02/2024 01:54 PM Modules accepted: Shirley [...] JERILYN - Fully Assessed Reason for Visit: Medication Request [138] Primary Visit Diagnosis:Generalized abdominal pain [R10.84] Order(s):CONSULT TO GENERAL SURGERY [6237] Order #: [id number]: 1 FUTURE hyoscyamine sublingual (LEVSIN/SL) 0.125 mgDissolve [...] Encounter Status:Closed by CORAL SANDOVAL on 07/01/24 [facility] Rg 06-24-2024 ANDIN Telephone (JEANNETTE ) ----- MINISTERIO LEAL ([id number]) 1960 M Date Time Provider Department 06/24/24 MADELIN NAIDU During your visit today, we recorded the following information about you: Jessica House 06/24/2024 11:02 AM Signed Pt called in is a [place] pt The medication for his abd isn't working for his swollen colon he is in such intense pain couldn't return to work wants to see if he can change to a stronger medication or up the dosage Kristine Lynn PA-C 06/24/2024 11:50 AM Signed Defer to Dr Culver- looks like he has already tried bentyl [...] released. This is also noted on the [facility] website regarding this medication. As Rose said before, I would defer to Dr. Culver. HARPER Good Shawna, MA 07/01/2024 11:26 AM Signed Pt informed referral sent to Dr Waldemar Sandoval MA Allergies As of Date: 06/24/2024 Noted Allergy Reaction OMEPRAZOLE 05/26/2015 14 - Other: See Comments Comments: Severe Headaches SENNA 02/09/2023 16 - Unknown Comments: Bottom lip swelled. Stopped swelling when senna dc Date Reviewed: 05/19/2024 Reviewed by: Kate Gonzalez, RN - Fully Assessed Reason for Visit: Patient Question [1657] Prescriptions as of 07/01/2024 - hyoscyamine SR [...] Encounter Status:Closed by MADELIN NAIDU on 06/29/24 [facility] CNPN Telephone (VASSWS) ----- MINISTERIO LEAL ([id number]) 1960 M Date Time Provider Department 06/24/24 GIO RICHARDSON VASSWS During your visit today, we recorded the following information about you: Yvonne Lui MA 06/24/2024 12:16 PM Signed Patient reached out to the [place] office. He is having GI issues that he is trying to get resolved. He was cleared to proceed with colonoscopy, which he completed back in April 2024. He was also having an attack at that time and he was admitted to [facility]. He has celiac and SMA stenting. He had CT scan of his abdomen which shows that he has a 70-90% blockage at the junction of his 2 stents He is having abdominal pain again. He was urged by Dr. Culver to reach out to vascular office. He would like for recent testing and follow ups with GI reviewed by Dr. Richardson. Patient can be reached back at [phone]. Beth Garcia RN 06/25/2024 10:[address] [...] by: Kate Gonzalez, JERILYN - Fully Assessed Prescriptions as of 06/25/2024 [...] Abdominal pain [R10.9] 05/18/2024 Encounter Status:Closed by BETH GARCIA on 06/25/24 [facility] CNOVneelam 06-03-2024 CNOV Office Visit (AGGAST N) ----- LEALMINISTERIO STEVENSON Reggie ([id number]) 1960 M Date Time Provider Department 06/03/24 9:45 AM GEORGE CULVER During your visit today, we recorded the following information about you: Pulse Blood pressure Weight Height 93/minute 137/90 51.3 kg 1.778 m George Culver MD 06/03/2024 10:39 AM Signed HPI: Ministerio Leal is a 64 year old male who [...] - needs to quit smoking altogether George Culver MD Allergies As of Date: 06/03/2024 Noted [...] (HCC) [E43] 09/16/2016 History of cholangitis [Z87.19] (more content not included)... Normal [facility] CNPLizy 05-28-2024 [facility] Telephone (AGGASTACC ) ----- MINISTERIO LEAL ([id number]) 1960 M Date Time Provider Department 05/28/24 GEORGE CULVER During your visit today, we recorded the following information about you: Shirley Chavez MA 05/28/2024 10:37 AM Signed ----- Message from George Culver MD sent at 05/26/2024 12:57 PM EST [...] Date Reviewed: 05/19/2024 Reviewed by: Kate Gonzalez, RN - Fully Assessed Reason for Visit: [...] Encounter Status:Closed by SHIRLEY CHAVEZ on 05/28/24 [facility] ANES POSTPROC EVALon 05-19- 024 ANES POSTPROC EVAL HNO ID: [id number] Author: MINISTERIO MOCTEZUMA MD Service: Anesthesiology Author Type: Physician Type: Anesthesia Postprocedure Evaluation Filed: 05/19/2024 15:13 Note Text: POST ANESTHESIA EVALUATION NOTE : 1960 Procedure Summary Date: 05/19/24 Room / [facility]: [facility] Anesthesia Start: 1406 Anesthesia Stop: 1509 Procedure: COLONOSCOPY DIAGNOSTIC Diagnosis: Scheduled Providers: George Culver MD Responsible Provider: Ministerio Moctezuma MD Anesthesia Type: MAC ASA Status: [...] or vomiting Anesthesia Observations No Documentation SIGNATURE: Ministerio Moctezuma MD PATIENT NAME: Ministerio Leal DATE: May 19, 2024 TIME: 3:13 PM CSN: [id number] [facility] ANES PRE-OPon 05-19-2024 ANES PRE-OP HNO ID: [id number] Author: MINISTERIO MOCTEZUMA MD Service: Anesthesiology Author Type: Physician Type: Anesthesia Preprocedure Evaluation Filed: 05/19/2024 13:59 Note Text: ANESTHESIOLOGY DAY OF SURGERY NOTE : 1960 Procedure Information Date/Time: 05/19/24 1400 Scheduled providers: George Culver MD Procedure: COLONOSCOPY DIAGNOSTIC [facility] Estimated body mass index is 15.5 [...] ASA Score: 3 Anesthetic Plan: MAC Beta Rudolph Monitoring Plan Monitoring plan: standard ASA. Post Procedure Analgesic Plan Postoperative analgesic plan: parenteral or oral opioids. Informed Consent Anesthetic risks, benefits, alternatives, personnel and consent discussed: yes. Patient / Responsible Republican agrees to proceed: yes Patient / Surrogate [...] obtained within 48 hours of Surgery/Procedure. SIGNATURE: Ministerio Moctezuma MD PATIENT NAME: Ministerio Leal DATE: May 19, 2024 TIME: 1:59 PM [id number] [facility] HNO ID: [id number] Author: MARIELENA MARIN MD Service: Hospital Medicine Author Type: Nurse Practitioner Type: Discharge Summary Filed: 05/24/2024 08:27 Note Text: ----- Attestation signed by Marielena Marin MD at 05/24/2024 8:27 AM atttested ----- DISCHARGE SUMMARY PATIENT NAME: Ministerio Leal ADMISSION DATE: 05/18/2024 DISCHARGE DATE: 05/19/2024 Attending Physician: Marielena Marin MD Code Status: Prior Highest Readmission [...] Patient: You were admitted for abdominal pain. Ministerio Leal, norman presented to the emergency department with [...] CONCERNS ARISE Additional Provider to Provider Information: Ministerio Leal is a 64 year old male with [...] Teams During Hospitalization: Treatment Team: Attending Provider: (more content not included)... Normal 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 Normal [facility] Colonoscopyon 05-19-2024 Colonoscopy [facility] Gastrointestinal Endoscopy Patient Name: Ministerio Leal Procedure Date: 05/19/2024 1:53 PM Date of : 1960 Admit Type: Inpatient Room: [place] [address] Gender: Male Note Status: Finalized Attending MD: George Culver MD, [id number] Procedure: Colonoscopy Indications: Generalized abdominal pain, Clinically significant diarrhea of unexplained origin Providers: George Culver MD Patient Profile: Last Colonoscopy: 1 year ago. Referring Physician: Tiffany Gunter (Referring MD) Medicines: Monitored Anesthesia Care Complications: [...] - Continue present medications. - Resume Plavix (clopid (more content not included)... Normal [facility] NUTRITIONon 05-19-2024 NUTRITION HNO ID: [id number] Author: VIVIANA KUMAR RD Service: Nutrition Therapy Author Type: [...] Orders (From admission, onward) Start Ordered 05/18/24 173 DIET NPO START NOW Question Answer Comment [...] Billing: $ Initial Assessment: 1-15 minutes SIGNATURE: Viviana Kumar RD PATIENT NAME: Ministerio Leal DATE: May 19, 2024 TIME: 10:02 AM Normal [facility] SURGICAL PATHOLOGYon 024 CASE REPORT Normal [facility] Comment on above: Order Comment: Bri ni Type: TISSUE SPECIMENOrdering Facility: [facility] Address: [address] [place] [address] Result Comment: Surg ical Pathology Report Case: [id number] Authorizing Provider: George Culver MD Collected: 05/19/2024 02:46 PM [facility] Received: 05/21/2024 10:52 AM Pathologist: Edmund Andrew MD Specimens: A) - Colon, Biopsy, Random B) - Colon, Splenic Flexure, Polyp C) - Colon, Sigmoid, Biopsy Performed By: #### S ####[facility] LABORATORYCLIA [id number] [address] [place] CLINICAL HISTORY Generalized abdomina l pain, Clinically significant diarrhea of unexplained origin Normal [facility] Comment on above: Order Comment: Mindyi raine Type: TISSUE SPECIMENOrdering Facility: [facility] Address: [address] [place] [address] Performed By: #### S ####[facility] LABORATORYIA [id number] [address] OF [facility] FINAL DIAGNOSIS Normal [facility] Comment on above: Order Comment: Bri ni Type: TISSUE SPECIMENOrdering Facility: [facility] Address: [address] [place] [address] Result Comment: Chetna alvarezon, random biopsies: - No pathologic abnormalities. B. Colon, splenic flexure, biopsy: - Tubular adenoma. C. Sigmoid colon, biopsy: - No pathologic abnormalities. Performed By: #### S ####[facility] LABORATORYCLIA [id number] [address] FINAL PERFORMING LAB Normal [facility] Comment on above: Order Comment: Speci men Type: TISSUE SPECIMENOrdering Facility: [facility] Address: [address] [place] [address] Result Comment: Diag nostic interpretation performed at [facility], [address] [place] [address] CLIA# [id number] Photolithographer: Edmund Andrew M.D. Performed By: #### S ####[facility] LABORATORYCLIA [id number] [address] GROSS DESCRIPTION Normal [facility] Comment on above: Order Comment: Speci men Type: TISSUE SPECIMENOrdering Facility: [facility] Address: [address] [place] [address] Result Comment: A. C olon, Biopsy Received in formalin labeled colon biopsy random [...] in one cassette. Gross examination performed at [facility], [address] [place] [address] May 21, 2024 12:16 PM Performed By: #### S ####[facility] LABORATORYCLIA [id number] [address] OF [facility] ALLIED HEALTHon 05-18-2024 ALLIED HEALTH HNO ID: [id number] Author: WALTER MORGAN RT(R) Service: Radiology Author [...] PATIENT PRESENTS WITH AN IMPLANTABLE OR ATTACHED PLATFORM SUPERVISOR: No ALLERGIES: Reviewed and unchanged CONTRAST ALLERGY: [...] Abdomen Pelvis SIGNATURE: RT Ruy(R) PATIENT NAME: Ministerio Leal DATE: May 18, 2024 TIME: 10:24 AM Normal [facility] CBC W Auto Differential pane l (Bld)on 05-18-2024 Anisocytosis Ql (Bld) Present Normal [facility] Comment on above: Order Comment: Speci men Type: BLOOD SPECIMENOrdering Facility: [facility] Address: [address] [place] [address] Performed By: #### 5 7021-8 ####[facility] LABORATORYCLIA [id number] [address] [place] Basophils (Bld) [#/Vol] 0.00 10*3/uL Normal <0.11 [facility] Comment on above: Order Comment: Speci men Type: BLOOD SPECIMENOrdering Facility: [facility] Address: [address] [place] [address] Performed By: #### 5 7021-8 ####[facility] LABORATORYCLIA [id number] [address] OF [facility] Basophils/100 WBC (Bld) 0.0 % Normal [facility] Comment on above: Order Comment: Speci men Type: BLOOD SPECIMENOrdering Facility: [facility] Address: [address] [place] [address] Performed By: #### 5 7021-8 ####[facility] LABORATORYCLIA [id number] [address] OF [facility] Differential cell count method Nom (Bld) Manual Normal [facility] Comment on above: Order Comment: Speci men Type: BLOOD SPECIMENOrdering Facility: [facility] Address: [address] [place] [address] Performed By: #### 5 7021-8 ####[facility] LABORATORYCLIA [id number] [address] [place] Eosinophils (Bld) [#/Vol] 0.00 10*3/uL Normal <0.46 [facility] Comment on above: Order Comment: Speci men Type: BLOOD SPECIMENOrdering Facility: [facility] Address: [facility] [place] [address] Performed By: #### 5 7021-8 ####[facility]ORATORYCLIA [id number] [address] [place] Eosinophils/100 WBC (Bld) 0.0 % Normal [facility] Comment on above: Order Comment: Speci men Type: BLOOD SPECIMENOrdering Facility: [facility] Address: [address] [place] [address] Performed By: #### 5 7021-8 ####[facility] LABORATORYCLIA [id number] [address] [place] Erythrocyte distribution width (RBC) [Ratio] 19.0 % High 11.5-15.0 [facility] Comment on above: Order Comment: Speci men Type: BLOOD SPECIMENOrdering Facility: [facility] Address: [address] [place] [address] Performed By: #### 5 7021-8 ####[facility] LABORATORYCLIA [id number] [address] [place] Giant platelets LM Ql (Bld) Occasional Normal [facility] Comment on above: Order Comment: Speci men Type: BLOOD SPECIMENOrdering Facility: [facility] Address: [address] [place] [address] Performed By: #### 5 7021-8 ####[facility] LABORATORYCLIA [id number] [address] [place] Hematocrit (Bld) [Volume fraction] 36.8 % Low 39.0-51.0 [facility] Comment on above: Order Comment: Speci men Type: BLOOD SPECIMENOrdering Facility: [facility] Address: [address] [place] [address] Performed By: #### 5 7021-8 ####[facility] LABORATORYCLIA [id number] [address] [place] Hemoglobin (Bld) [Mass/Vol] 11.8 g/dL Low 13.0-17.0 [facility] Comment on above: Order Comment: Speci men Type: BLOOD SPECIMENOrdering Facility: [facility] Address: [address] [place] [address] Performed By: #### 5 7021-8 ####[facility] LABORATORYCLIA [id number] [address] [place] Lymphocytes (Bld) [#/Vol] 0.95 10*3/uL Low 1.00-4.00 [facility] Comment on above: Order Comment: Speci men Type: BLOOD SPECIMENOrdering Facility: [facility] Address: [address] [place] [address] Performed By: #### 5 7021-8 ####[facility] LABORATORYCLIA [id number] [address] Lymphocytes/100 WBC (Bld) 8.0 % Normal [facility] Comment on above: Order Comment: Speci men Type: BLOOD SPECIMENOrdering Facility: [facility] Address: [address] [place] [address] Performed By: #### 5 7021-8 ####[facility] LABORATORYCLIA [id number] [address] [place] MCH (RBC) [Entitic mass] 23.1 pg Low 26.0-34.0 [facility] Comment on above: Order Comment: Speci men Type: BLOOD SPECIMENOrdering Facility: [facility] Address: [address] [place] [address] Performed By: #### 5 7021-8 ####[facility] LABORATORYCLIA [id number] [address] [place] MCHC (RBC) [Mass/Vol] 32.1 g/dL Normal 30.5-36.0 [facility] Comment on above: Order Comment: Speci men Type: BLOOD SPECIMENOrdering Facility: [facility] Address: [address] [place] [address] Performed By: #### 5 7021-8 ####[facility] LABORATORYCLIA [id number] [address] MCV (RBC) [Entitic vol] 72.2 fL Low 80.0-100.0 [facility] Comment on above: Order Comment: Speci men Type: BLOOD SPECIMENOrdering Facility: [facility] Address: [address] [place] [address] Performed By: #### 5 7021-8 ####[facility]ORATORYCLIA [id number] [place] [address] [place] Monocytes (Bld) [#/Vol] 0.83 10*3/uL Normal <0.87 [facility] Comment on above: Order Comment: Speci men Type: BLOOD SPECIMENOrdering Facility: [facility] Address: [address] [place] [address] Performed By: #### 5 7021-8 ####[facility]ORATORYCLIA [id number] [address] Monocytes/100 WBC (Bld) 7.0 % Normal [facility] Comment on above: Order Comment: Speci men Type: BLOOD SPECIMENOrdering Facility: [facility] Address: [address] [place] [address] Performed By: #### 5 7021-8 ####[facility]ORATORYCLIA [id number] [address] [place] Neutrophils (Bld) [#/Vol] 10.11 10*3/uL High 1.45-7.50 [facility] Comment on above: Order Comment: Speci men Type: BLOOD SPECIMENOrdering Facility: [facility] Address: [address] [place] [address] Performed By: #### 5 7021-8 ####[facility]ORATORYCLIA [id number] [address] [place] Neutrophils/100 WBC (Bld) 85.0 % Normal [facility] Comment on above: Order Comment: Speci men Type: BLOOD SPECIMENOrdering Facility: [facility] Address: [address] [place] [address] Performed By: #### 5 7021-8 ####[facility]ORATORYCLIA [id number] [place] [address] [place] Nucleated RBC (Bld) [#/Vol] 10*3/uL Normal <0.01 [facility] Comment on above: Order Comment: Speci men Type: BLOOD SPECIMENOrdering Facility: [facility] Address: [address] [place] [address] Performed By: #### 5 7021-8 ####[facility] LABORATORYCLIA [id number] [address] [place] Nucleated RBC/100 WBC (Bld) [Ratio] 0.0 /100 WBC Normal [facility] Comment on above: Order Comment: Speci men Type: BLOOD SPECIMENOrdering Facility: [facility] Address: [address] [place] [address] Performed By: #### 5 7021-8 ####[facility] LABORATORYCLIA [id number] [address] [place] Ovalocytes LM Ql (Bld) Few Normal [facility] Comment on above: Order Comment: Speci men Type: BLOOD SPECIMENOrdering Facility: [facility] Address: [address] [place] [address] Performed By: #### 5 7021-8 ####[facility] LABORATORYCLIA [id number] [address] [place] Platelet clump LM Ql (Bld) Present Normal [facility] Comment on above: Order Comment: Speci men Type: BLOOD SPECIMENOrdering Facility: [facility] Address: [address] [place] [address] Performed By: #### 5 7021-8 ####[facility] LABORATORYCLIA [id number] [address] [place] Platelet mean volume (Bld) [Entitic vol] Normal [facility] Comment on above: Order Comment: Speci men Type: BLOOD SPECIMENOrdering Facility: [facility] Address: [address] [place] [address] Result Comment: Unab le to Report. Performed By: #### 5 7021-8 ####[facility]ORATORYCLIA [id number] [place] [address] [place] Platelets (Bld) [#/Vol] Normal [facility] Comment on above: Order Comment: Speci men Type: BLOOD SPECIMENOrdering Facility: [facility] Address: [address] [place] [address] Result Comment: Plat kathyts Clumped Estimate Normal. Performed By: #### 5 7021-8 ####[facility] LABORATORYCLIA [id number] [address] Platelets Estimate (Bld) [#/Vol] Adequate Normal [facility] Comment on above: Order Comment: Speci men Type: BLOOD SPECIMENOrdering Facility: [facility] Address: [address] [place] [address] Performed By: #### 5 7021-8 ####[facility] LABORATORYCLIA [id number] [address] RBC (Bld) [#/Vol] 5.10 10*6/uL Normal 4.20-6.00 [facility] Comment on above: Order Comment: Speci men Type: BLOOD SPECIMENOrdering Facility: [facility] Address: [address] [place] [address] Performed By: #### 5 7021-8 ####[facility] LABORATORYCLIA [id number] [address] RED CELL MORPH Reviewed: see result s of individual morphologies Normal [facility] Comment on above: Order Comment: Speci men Type: BLOOD SPECIMENOrdering Facility: [facility] Address: [address] [place] [address] Performed By: #### 5 7021-8 ####[facility]ORATORYCLIA [id number] [address] WBC (Bld) [#/Vol] 11.89 10*3/uL High 3.70-11.00 [facility] Comment on above: Order Comment: Speci men Type: BLOOD SPECIMENOrdering Facility: [facility] Address: [address] [place] [address] Result Comment: Resu lts checked and verified. No clot detected. Performed By: #### 5 7021-8 ####[facility] BENDIA [id number] [address] [place] OF [facility] CONSULTon 05-18-2024 CONSULT HNO ID: [id number] Author: ARELY CRUZ DO Service: General Surgery Author Type: Resident Type: Consults Filed: 05/24/2024 14:48 Note Text: ----- Attestation signed by Arely Cruz DO at [...] vascular intervention indicated. Signature: Arely Cruz DO ----- CONSULT: Vascular Surgery Service SERVICE DATE: 05/18/2024 SERVICE TIME: 12:16 PM REASON FOR CONSULT: Concern for Acute on Chronic Mesenteric Ischemia NATURE OF CONSULT: Urgent Subjective 64 year old male with PMH of chronic mesenteric ischemia s/p balloon angioplasty of celiac and SMA on plavix (2017, 2017, 2019) , DVT RUE, s/p distal partial gastrectomy [...] was seen by his vascular surgeon in [place] on 05/11 and had an mesenteric artery [...] SPINE FUSION 2010 CHOLECYSTECTOMY 2007 EGD 12/2022 ESOPHAGOGASTRODUODENOSCOP Y TRANSORAL DIAGNOSTIC 09/2014 EGD PAST SURGICAL HISTORY [...] Drug use: No Comment: used to smoke marijuanna, 3 to 4 days per week (Not [...] (Src) 98.2 (Oral) Resp 21 Ht 5' 1 (more content not included)... Normal [facility] CTA ABD/PELV WO/W IVCONon CTA ABD/PELV WO/W IVCON * * *Final Repor t* * * DATE OF EXAM: May 18 2024 10:31AM [facility] 0467 - CTA ABD/PELV WO/W IVCON / [...] duct dilatation up to 9 mm, nonspecific. Life Skills Instructor: [facility] Transcribe Date/Time: May 18 2024 11:07A Dictated by : ALIYAH OROSCO MD This examination was interpreted and the report reviewed and electronically signed by: ALIYAH OROSCO MD on May 18 2024 11:36AM EST [id number] Normal [facility] Comprehensive metabolic 2000 panelon 05-18-2024 Albumin [Mass/Vol] 4.4 g/dL Normal 3.9-4.9 [facility] Comment on above: Order Comment: Mindyi raine Type: BLOOD SPECIMENOrdering Facility: [facility] Address: [address] [place] [address] Performed By: #### 1 9123-9, 46073-6, 3040-3 ####[facility] LABORATORYCLIA [id number] [place] [address] [place] ALP [Catalytic activity/Vol] 173 U/L High 38-113 [facility] Comment on above: Order Comment: Speci men Type: BLOOD SPECIMENOrdering Facility: [facility] Address: [address] [place] [address] Performed By: #### 1 9123-9, 14588-4, 3040-3 ####[facility] LABORATORYCLIA [id number] [address] [place] ALT With P-5'-P [Catalytic activity/Vol] 12 U/L Normal 10-54 [facility] Comment on above: Order Comment: Speci men Type: BLOOD SPECIMENOrdering Facility: [facility] Address: [address] [place] [address] Performed By: #### 1 9123-9, 96272-7, 3040-3 ####[facility]ORATORYCLIA [id number] [address] OF [facility] Anion gap [Moles/Vol] 19 mmol/L High 8-15 [facility] Comment on above: Order Comment: Speci men Type: BLOOD SPECIMENOrdering Facility: [facility] Address: [address] [place] [address] Performed By: #### 1 9123-9, 57596-9, 3040-3 ####[facility]ORATORYCLIA [id number] [address] [place] [facility] AST With P-5'-P [Catalytic activity/Vol] 21 U/L Normal 14-40 [facility] Comment on above: Order Comment: Speci men Type: BLOOD SPECIMENOrdering Facility: [facility] Address: [address] [place] [address] Performed By: #### 1 9123-9, 06085-0, 3040-3 ####[facility]ORATORYCLIA [id number] [place] [address] [place] Bilirubin [Mass/Vol] 0.4 mg/dL Normal 0.2-1.3 [facility] Comment on above: Order Comment: Speci men Type: BLOOD SPECIMENOrdering Facility: [facility] Address: [address] [place] [address] Performed By: #### 1 9123-9, 49938-9, 0-3 ####[facility]ORATORYCLIA [id number] [place] [address] [place] Calcium [Mass/Vol] 9.7 mg/dL Normal 8.5-10.2 [facility] Comment on above: Order Comment: Speci men Type: BLOOD SPECIMENOrdering Facility: [facility] Address: [address] [place] [address] Performed By: #### 1 9123-9, 61763-3, 0-3 ####[facility]ORATORYCLIA [id number] [place] [address] [place] Chloride [Moles/Vol] 98 mmol/L Normal 98-107 [facility] Comment on above: Order Comment: Speci men Type: BLOOD SPECIMENOrdering Facility: [facility] Address: [address] [place] [address] Performed By: #### 1 9123-9, 55246-1, 0-3 ####[facility]ORATORYCLIA [id number] [place] [address] [place] CO2 [Moles/Vol] 18 mmol/L Low 22-30 [facility] Comment on above: Order Comment: Speci men Type: BLOOD SPECIMENOrdering Facility: [facility] Address: [address] [place] [address] Performed By: #### 1 9123-9, 23055-1, 0-3 ####[facility] LABORATORYCLIA [id number] [place] [address] [place] Creatinine [Mass/Vol] 1.52 mg/dL High 0.73-1.22 [facility] Comment on above: Order Comment: Speci men Type: BLOOD SPECIMENOrdering Facility: [facility] Address: [address] [place] [address] Performed By: #### 1 9123-9, 00050-0, 0-3 ####[facility] LABORATORYCLIA [id number] [place] [address] [place] Creatinine and Glomerular filtration rate.predicted panel (S/P/Bld) 51 mL/min/1.73m??? Low >=60 [facility] Comment on above: Order Comment: Bri ni Type: BLOOD SPECIMENOrdering Facility: [facility] Address: [address] [place] [address] Result Comment: Josi mated Glomerular Filtration Rate (eGFR) is calculated using the 2020 CKD-EPI creatinine equation. This equation utilizes serum creatinine, sex, and age as parameters. The creatinine assay has traceable calibration to isotope dilution-mass spectrometry. Refer to KDIGO guidelines for clinical interpretation. In patients with unstable renal function, e.g. those with acute kidney injury, the eGFR may not accurately reflect actual GFR. Performed By: #### 1 9123-9, 19573-8, 3040-3 ####[facility]CLIA [id number] [place] [address] [place] Glucose [Mass/Vol] 99 mg/dL Normal 74-99 [facility] Comment on above: Order Comment: Bri ni Type: BLOOD SPECIMENOrdering Facility: [facility] Address: [address] [place] [address] Result Comment: The [place] [employer] (ADA) provides guidance for cutoff [...] Standards of Medical Care in Diabetes 2016, [place] [employer]. Diabetes Care. 2016.39(Suppl 1). Performed By: #### 1 9123-9, 18202-5, 3040-3 ####[facility] [id number] [place] [id number] [place] Potassium [Moles/Vol] 4.3 mmol/L Normal 3.7-5.1 [facility] Comment on above: Order Comment: Speci men Type: BLOOD SPECIMENOrdering Facility: [facility] Address: [address] [place] [address] Performed By: #### 1 9123-9, 09318-8, 3040-3 ####[facility] LABORATORYCLIA [id number] [place] [address] [place] Protein [Mass/Vol] 7.4 g/dL Normal 6.3-8.0 [facility] Comment on above: Order Comment: Speci men Type: BLOOD SPECIMENOrdering Facility: [facility] Address: [address] [place] [address] Performed By: #### 1 9123-9, 19641-0, 3040-3 ####[facility] LABORATORYCLIA [id number] [address] [place] Sodium [Moles/Vol] 135 mmol/L Low 136-144 [facility] Comment on above: Order Comment: Speci men Type: BLOOD SPECIMENOrdering Facility: [facility] Address: [address] [place] [address] Performed By: #### 1 9123-9, 73422-0, 3040-3 ####[facility] LABORATORYCLIA [id number] [address] [place] Urea nitrogen [Mass/Vol] 20 mg/dL Normal 9-24 [facility] Comment on above: Order Comment: Speci men Type: BLOOD SPECIMENOrdering Facility: [facility] Address: [address] [place] [address] Performed By: #### 1 9123-9, 23711-0, 3040-3 ####[facility] LABORATORYCLIA [id number] [place] [id number] [place] ECG COMPLETEon 05-18-2024 ECG COMPLETE Ventricular Rate : 1 28 BPM Atrial Rate : 128 BPM P-R Interval : 132 ms QRS Duration : 70 ms Q-T Interval : 314 ms QTC Calculation(Bazett) : 458 ms Calculated P [place] : 87 degrees Calculated R [place] : -42 degrees Calculated T [place] : 83 degrees SINUS TACHYCARDIA WITH OCCASIONAL PREMATURE VENTRICULAR COMPLEXES BIATRIAL ENLARGEMENT LEFT AXIS DEVIATION PULMONARY DISEASE PATTERN ABNORMAL ECG WHEN COMPARED WITH ECG OF 10-Feb-2023 00:56, PREMATURE VENTRICULAR COMPLEXES ARE NOW PRESENT VENT. RATE HAS INCREASED by 54 bpm QRS AXIS SHIFTED LEFT POOR DATA QUALITY, INTERPRETATION MAY BE ADVERSELY AFFECTED Confirmed by MD HARPER AMY ([id number]) on 06/17/2024 1:53:37 AM NAME : MINISTERIO LEAL PID : [id number] : 1960 Gender : Male Race : ORD : [id number] Procedure Date : May 18 2024 10:17:16 [...] ADVERSELY AFFECTED Confirmed by MD HARPER AMY ([id number]) on 06/17/2024 1:53:37 AM Test Reason : Chest Pain Location : 4 : AKED EM Overread By : MD HARPER AMY Edited By : MD HARPER AMY Referred By : , Acquired by : MELYSSA PAIZ [facility] ED NOTEon 05-18-2024 ED NOTE HNO ID: [id number] Author: MARISA NAPOLES RN Service: ? Author Type: Registered Nurse Type: ED Notes Filed: 05/18/2024 16:19 Note Text: Up with magali [facility] ED NOTE HNO ID: [id number] Author: NIKOLAI MOURA RN Service: Emergency Medicine Author Type: Registered Nurse Type: ED Notes Filed: 05/18/2024 14:04 Note Text: Dr. Rick at bedside to speak with pt [facility] ED NOTE HNO ID: [id number] Author: NIKOLAI MOURA RN Service: Emergency Medicine Author Type: Registered Nurse Type: ED Notes Filed: 05/18/2024 13:59 Note Text: Pt requesting pain medication, MD notified. [facility] ED NOTE HNO ID: [id number] Author: NIKOLAI MOURA RN Service: Emergency Medicine Author Type: Registered Nurse Type: ED Notes Filed: 05/18/2024 11:56 Note Text: Surgery c/s at bedside to evaluate pt Normal [facility] ED NOTE HNO ID: [id number] Author: NIKOLAI MOURA, RN Service: Emergency Medicine Author Type: Registered Nurse Type: ED Notes Filed: 05/18/2024 10:47 Note Text: POC lactic dropped off in RT window. RT notified. Normal [facility] ED NOTE HNO ID: [id number] Author: NIKOLAI MOURA, RN Service: Emergency Medicine Author Type: Registered Nurse Type: ED Notes Filed: 05/18/2024 10:19 Note Text: To CT at this time with this RN Normal [facility] ED NOTE HNO ID: [id number] Author: NIKOLAI MOURA, RN Service: Emergency Medicine Author Type: Registered Nurse Type: ED Notes Filed: 05/18/2024 10:15 Note Text: Secondary RN at bedside to place second IV access. Normal [facility] ED NOTE HNO ID: [id number] Author: EVANGELINA HICKMAN, JERILYN Service: ? Author Type: Registered Nurse Type: ED Notes Filed: 05/18/2024 09:37 Note Text: Bed: 12-ED Expected date: Expected time: Means of arrival: Comments: TRIAGE Normal [facility] ED PROV NOTEon 05-18-2024 ED PROV NOTE HNO ID: [id number] Author: JARETH NEVES MD Service: Emergency Medicine Author Type: Resident Type: ED Provider Notes Filed: 05/19/2024 09:39 Note Text: ----- Attestation signed by Jareth Neves MD at 05/19/2024 9:39 AM Attending Note I evaluated the patient and personally participated in the tan components. I agree with the resident's findings and plan as documented and have discussed the case and management of the patient's care with the resident. Signature: Jareth Neves MD Date: 05/19/2024 Time: 9:38 AM ----- ED Provider Note Patient Name: Ministerio Leal : 1960 SERVICE DATE: 05/18/24 History Patient [...] SPINE FUSION 2010 CHOLECYSTECTOMY 2007 EGD 12/2022 ESOPHAGOGASTRODUODENOSCOP Y TRANSORAL DIAGNOSTIC 09/2014 EGD PAST SURGICAL HISTORY [...] Drug use: No Comment: used to smoke mariKalturaanna, 3 to 4 days per week Sexual [...] at time of arrival. Patient was given Dila (more content not included)... Normal [facility] ED PROV NOTE HNO ID: [id number] Author: JARETH NEVES MD Service: Emergency Medicine Author Type: Physician [...] flow. I had originally spoken with Dr. Culver who is requesting that the patient be admitted to the hobs unit to still consider potential colonoscopy. I suspect that the patient may be having attacks of mesenteric ischemia. JARETH Cardenas MD 05/19/24 0938 Normal [facility] ED Triage Noteon 05-18-2024 ED Triage Note HNO ID: [id number] Author: ANDREW LATHAM APRN.MAINTENANCE AND REPAIR WORKER Service: Emergency Medicine Author Type: Nurse Practitioner Type: ED Triage Notes Filed: 05/18/2024 09:34 Note Text: ED INTAKE NOTE Patient Name: Ministerio Leal Service Date: May 18, 2024 As provider [...] notes for further details and disposition. SIGNATURE: Andrew Pollard APRN Normal [facility] HISTORY PHYSICALon HISTORY PHYSICAL HNO ID: [id number] Author: EARLENE NAGY APRN.MAINTENANCE AND REPAIR WORKER Service: Hospital Medicine Author Type: Nurse Practitioner Type: H&P Filed: 05/18/2024 17:24 Note Text: RAPID OBSERVATION UNIT HISTORY AND PHYSICAL EXAM SERVICE DATE: 05/18/2024 SERVICE TIME: 5:05 pm Primary Care Physician: Hitesh Dai MD NIGHT AND WEEKEND COVERAGE: Unit ext: [phone] Pager [phone] Subjective CHIEF COMPLAINT: Lower abdominal pain HPI: Ministerio Leal is a 64 year old male with [...] SPINE FUSION 2010 CHOLECYSTECTOMY 2007 EGD 12/2022 ESOPHAGOGASTRODUODENOSCOP Y TRANSORAL DIAGNOSTIC 09/2014 EGD PAST SURGICAL HISTORY [...] Drug use: No Comment: used to smoke [employer], 3 to 4 days per week MEDICATIONS: [...] Headaches Senna Unknown Bottom lip swelled. Stopped (more content not included)... Normal [facility] Lipase SerPl-cCncon 05-18-20 24 Lipase [Catalytic activity/Vol] 12 U/L Low 16-61 [facility] Comment on above: Order Comment: Speci men Type: BLOOD SPECIMENOrdering Facility: [facility] Address: [address] [place], [place] [address] Performed By: #### 1 9123-9, 75930-7, 3040-3 ####[facility] LABORATORYCLIA [id number] [place] [id number] [place] Magnesium SerPl-mCncon 05-18 Magnesium [Mass/Vol] 2.0 mg/dL Normal 1.7-2.3 [facility] Comment on above: Order Comment: Speci men Type: BLOOD SPECIMENOrdering Facility: [facility] Address: [address] [place] [address] Performed By: #### 1 9123-9, 99405-5, 3040-3 ####[facility]ORATORYCLIA [id number] [address] [place] NURSING PROGon 05-18-2024 NURSING PROG HNO ID: [id number] Author: VERITO SALDAÑA, RN Service: Nursing Author Type: Registered Nurse Type: Nursing Progress Note Filed: 05/18/2024 09:17 Note Text: Patient arrived to Endoscopy window for his scheduled colonoscopy. Upon presentation patient is writhing in pain, nauseous, unable to stand due to abdominal pain. Dr Culver sent to assess patient in the cardenas and recommended the patient go to the ER for acute evaluation. upstream biomanufacturing technician wheeled patient to the ER, Dr Culver called ER to give physician handoff. Normal [facility] Urinalysis complete panel (U )on 05-18-2024 Bilirubin Ql (U) Negative Normal Negative [facility] Comment on above: Order Comment: Speci men Type: URINE SPECIMENOrdering Facility: [facility] Address: [address] [place] [address] Performed By: #### 2 4356-8 ####[facility] LABORATORYCLIA [id number] [address] [place] Clarity (Unsp spec) Clear Normal Clear [facility] Comment on above: Order Comment: Speci men Type: URINE SPECIMENOrdering Facility: [facility] Address: [address] [place] [address] Performed By: #### 2 4356-8 ####[facility] LABORATORYCLIA [id number] [address] [place] Color (U) Light Yellow Normal yellow [facility] Comment on above: Order Comment: Speci men Type: URINE SPECIMENOrdering Facility: [facility] Address: [address] [place] [address] Performed By: #### 2 4356-8 ####[facility]ORYCLIA [id number] [address] Glucose Test strip (U) [Mass/Vol] Negative Normal Trace, Negative [facility] Comment on above: Order Comment: Speci men Type: URINE SPECIMENOrdering Facility: [facility] Address: [address] [place] [address] Performed By: #### 2 4356-8 ####[facility]ATORYCLIA [id number] [address] [place] Hemoglobin Ql (U) Negative Normal Negative, Trace [facility] Comment on above: Order Comment: Speci men Type: URINE SPECIMENOrdering Facility: [facility] Address: [address] [place] [address] Performed By: #### 2 4356-8 ####[facility] LABORATORYCLIA [id number] [address] Ketones Ql (U) 1+ Abnormal Negative, Trace [facility] Comment on above: Order Comment: Speci men Type: URINE SPECIMENOrdering Facility: [facility] Address: [address] [place] [address] Performed By: #### 2 4356-8 ####[facility] LABORATORYCLIA [id number] [address] Leukocyte esterase Test strip Ql (U) Negative Normal Negative, 25 Evans/uL [facility] Comment on above: Order Comment: Speci men Type: URINE SPECIMENOrdering Facility: [facility] Address: [facility] [place] [address] Performed By: #### 2 4356-8 ####[facility]ORYCLIA [id number] [address] Nitrite Ql (U) Negative Normal Negative [facility] Comment on above: Order Comment: Speci men Type: URINE SPECIMENOrdering Facility: [facility] Address: [address] [place] [address] Performed By: #### 2 4356-8 ####[facility]ORYCLIA [id number] [address] [place] pH (U) 5.5 [pH] Normal 5.0-8.0 [facility] Comment on above: Order Comment: Speci men Type: URINE SPECIMENOrdering Facility: [facility] Address: [address] [place] [address] Performed By: #### 2 4356-8 ####[facility]ORATORYCLIA [id number] [address] Protein (U) [Mass/Vol] 1+ Abnormal Trace , Negative [facility] Comment on above: Order Comment: Speci men Type: URINE SPECIMENOrdering Facility: [facility] Address: [address] [place] [address] Performed By: #### 2 4356-8 ####[facility]ORATORYCLIA [id number] [address] RBC LM.HPF (Urine sed) [#/Area] 3-5 /HPF Abnormal 0-3 /HPF [facility] Comment on above: Order Comment: Speci men Type: URINE SPECIMENOrdering Facility: [facility] Address: [address] [place] [address] Performed By: #### 2 4356-8 ####[facility] LABORATORYCLIA [id number] [address] [place] Specific gravity (U) [Rel density] >1.040 High 1.005-1.03 0 [facility] Comment on above: Order Comment: Speci men Type: URINE SPECIMENOrdering Facility: [facility] Address: [address] [place] [address] Performed By: #### 2 4356-8 ####[facility]ORATORYCLIA [id number] [address] Urobilinogen Ql (U) Normal Normal Normal [facility] Comment on above: Order Comment: Speci men Type: URINE SPECIMENOrdering Facility: [facility] Address: [address] [place] [address] Performed By: #### 2 4356-8 ####[facility] LABORATORYCLIA [id number] [place] [address] [place] [facility] WBC LM.HPF (Urine sed) [#/Area] 0-5 /HPF Normal 0-5 /HPF [facility] Comment on above: Order Comment: Speci men Type: URINE SPECIMENOrdering Facility: [facility] Address: [facility] [place] [address] Performed By: #### 2 4356-8 ####[facility] LABORATORYCLIA [id number] [place] [address] [place] CNOVon 05-11-2024 CNOV Office Visit (VASSWS ) ----- MINISTERIO LEAL Reggie ([id number]) 1960 M Date Time Provider Department 05/11/24 10:45 AM GIO RICHARDSONS During your visit today, we recorded the following information about you: Pulse Blood pressure 71/minute 127/70 Gio Richardson, 06/09/2024 1:41 PM [facility] [place] DEPARTMENT OF VASCULAR SURGERY OUTPATIENT VISIT DATE May 11, 2024 OUTPATIENT VISIT TYPE ESTABLISHED SERVICE DATE: 05/11/2024 SERVICE TIME: 11:30 AM PRIMARY CARE PHYSICIAN: Hitesh Dai MD HISTORY OF PRESENT ILLNESS: Mr. 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 He has been having low grade cramping which progresses to loose stools. He is following with GI at [facility] recently with plans for colonoscopy. PAST MEDICAL HISTORY Diagnosis Date Arthritis GERD (gastroesophageal reflux disease) Hiatal hernia Hx of fusion of cervical spine Mesenteric artery stenosis (HCC) PAST SURGICAL HISTORY Procedure Laterality Date ADDTL NECK SPINE FUSION 2010 CHOLECYSTECTOMY 2007 EGD 12/2022 ESOPHAGOGASTRODUODENOSCOP Y TRANSORAL DIAGNOSTIC 09/2014 EGD PAST SURGICAL HISTORY [...] Drug use: No Comment: used to smoke [employer], 3 to 4 days per week MEDICATIONS: [...] Inferior mesenteric artery: 70-99% stenosis. IMPRESSION: Mr. Leal is a 64 year old male with mesenteric artery stenosis s/p stenting . PLAN and RECOMMENDATIONS: Recommend follow up in one year with repeat imaging SIGNATURE: Gio Richardson DO PATIENT NAME: Ministerio Leal DATE: May 11, 2024 TIME: 11:30 AM [...] Primary Visit Diagnosis:Mesenteric artery stenosis (HCC) [K55.1] Order(s):US MESENTERIC ARTERY CMPLT VAS LAB [[id number]] Order #: [id number] FUTURE Prescriptions as of 06/09/2024 - hyoscyamine SR (LEVBID) 0.375 mg 12 hr tablet Take 1 tablet by mouth two times a day. - hyoscyamine (LEVSIN) 0.125 mg tablet Take 1 tablet by mouth every 4 ho (more content not included)... Normal [facility] MESENTERIC ARTERY CMPLT V LABon 05-11-2024 US MESENTERIC ARTERY CMPLT VAS LAB Non-Invasive Vascular Laboratory [facility] Renal or Mesenteric Duplex Bilateral/Complete Date of service/time: 05/11/2024 10:07:31 AM Name: MR. MNIISTERIO LEAL Date of : 1960 Age: 64 years [...] artery: 70-99% stenosis. Technologist: Maria G Jolly RVT, [facility] Ordering physician: GIO RICHARDSON Interpreting physician: TO Pizarro DO Final CC [employer] Medical Image : [id number] See Link below for Image Normal [facility] with eGFRon 05-01-2024 AGE 64 years Normal [facility] Comment on above: Performed By: #### 2 07861 #### [facility],[address] [place] [address] Albumin [Mass/Vol] 3.9 g/dL Normal 3.4 - 5.0 [facility].; [facility]. Comment on above: Performed By: #### 2 22197 #### [facility],[address] [place] [address] Albumin/Globulin [Mass ratio] 1.0 {ratio} Normal 0.9 - 1.6 [facility] Comment on above: Performed By: #### 2 53605 #### [facility],[address] [place] [address] ALK PHOS 167 U/L High 46 - 116 [facility] Comment on above: Performed By: #### 2 64837 #### [facility],[address] [place] [address] ALT [Catalytic activity/Vol] 20 U/L Normal 16 - 63 [facility].; [facility], [facility]. Comment on above: Performed By: #### 2 00954 #### [facility],[address] [place] [address] Anion gap [Moles/Vol] 11 mmol/L Normal 10 - 20 [facility].; [facility], [facility]. Comment on above: Performed By: #### 2 07099 #### [facility],[address] [place] [address]287 AST [Catalytic activity/Vol] 22 U/L Normal 15 - 37 [facility].; [facility]. Comment on above: Performed By: #### 2 04993 #### [facility],[address] [place] [address] B/C RATIO 11 ratio Normal 0 - 30 [facility] Comment on above: Performed By: #### 2 10459 #### [facility],[address] [place] [address] Bilirubin [Mass/Vol] 0.4 mg/dL Normal 0.2 - 1.0 [facility], [facility].; [facility], [employer]. Comment on above: Performed By: #### 2 15421 #### [address] [address] Calcium [Mass/Vol] 9.3 mg/dL Normal 8.5 - 10.1 [facility], [facility] [employer] Comment on above: Performed By: #### 2 79494 #### [facility],[address] [place] [address] Chloride [Moles/Vol] 105 mmol/L Normal 98 - 107 [facility], [facility].; [employer] [facility], [employer]. Comment on above: Performed By: #### 2 27332 #### [address] [address] CMP with eGFR Normal [facility] Comment on above: Result Comment: COMP REHENSIVE METABOLIC PANEL Performed By: #### 2 80957 #### [facility],[address] [place] [address]2020 CO2 [Moles/Vol] 28.8 mmol/L Normal 21.0 - 32.0 [facility], [facility].; [employer], [employer]. Comment on above: Performed By: #### 2 31533 #### [address] [address] Creatinine [Mass/Vol] 1.15 mg/dL Normal 0.70 - 1.30 [facility] [employer], [employer]. Comment on above: Performed By: #### 2 47434 #### [address] [address] GFR/1.73 sq M.predicted among non-blacks MDRD (S/P/Bld) [Vol rate/Area] mL/min/{1.73_m2} Normal 60 - 999 [facility] Comment on above: Performed By: #### 2 91208 #### [address] [address] Result Comment: ACCO RDING TO THE NATIONAL KIDNEY DISEASE EDUCATION PROGRAM(NKDE), A NORMAL eGFR IS A VALUE GREATER THAN OR EQUAL TO 60 ML/MIN/1.73 SQ METERS. CHRONIC KIDNEY DISEASE: <60mL/MIN/1.73 SQ METERS KIDNEY FAILURE: <15mL/MIN/1.73 SQ METERS THIS TEST SHOULD ONLY BE USED FOR PATIENTS 18 YEARS OF AGE AND OLDER. Globulin (S) [Mass/Vol] 3.9 g/dL High 1.5 - 3.8 H [facility].; [facility], [facility]. Comment on above: Performed By: #### 2 80302 #### [address] [address] Glucose [Mass/Vol] 88 mg/dL Normal 74 - 106 [facility].; [facility], [facility]. Comment on above: Performed By: #### 2 27773 #### [address] [address] Potassium [Moles/Vol] 3.9 mmol/L Normal 3.5 - 5.1 [facility].; [facility], [facility]. Comment on above: Performed By: #### 2 61382 #### [address] [address] Protein [Mass/Vol] 7.8 g/dL Normal 6.4 - 8.2 [facility].; [facility], [facility]. Comment on above: Performed By: #### 2 08015 #### [address] [address] Sodium [Moles/Vol] 141 mmol/L Normal 136 - 145 [facility]; [facility], [facility] Comment on above: Performed By: #### 2 10669 #### [facility],[address] [place], [place] [address] Urea nitrogen [Mass/Vol] 13 mg/dL Normal 7 - 18 [facility]; [facility], [facility] Comment on above: Performed By: #### 2 51718 #### [address] [address] LIPID PROFILEon 05-01-2024 Cholesterol [Mass/Vol] 135 mg/dL Normal 0 - 240 [facility].; [facility], [facility] Comment on above: Performed By: #### 2 43791 ####[address] [address] Cholesterol in HDL [Mass/Vol] 62 mg/dL High 40 - 60 [facility] Comment on above: Performed By: #### 2 88398 ####[address] [address] Cholesterol in LDL [Mass/Vol] 62 mg/dL Normal 0 - 129 [facility]; [facility], [facility]. Comment on above: Performed By: #### 2 40544 ####[address] [address] Cholesterol.total/Choles terol in HDL [Mass ratio] 2.2 {ratio} Normal 0.0 - 5.0 [facility].; [facility], [facility] Comment on above: Performed By: #### 2 39788 ####[address] [address] Lipid 1996 panel Normal [facility] Comment on above: Result Comment: LIPI D PROFILE Performed By: #### 2 80727 ####[address] [address] Triglyceride [Mass/Vol] 53 mg/dL Normal 0 - [address] [facility] [employer] [facility] Comment on above: Performed By: #### 2 63090 ####[facility],[address] [place] [address] Laboratory - Chemistry and C hemistry - challengeon 05-01-2024 Albumin [Mass/Vol] 1.0 g/dL Normal 0.9 - 1.6 [facility], [facility] [employer] ALP [Catalytic activity/Vol] 167 U/L Abnormal 46 - 116 U/L [facility] [employer] Cholesterol in HDL [Mass or moles/Vol] 62 mg/dL Abnormal 40 - 60 mg/dL [facility] [employer] Comprehensive metabolic 2000 panel CMP with eGFR Normal [facility], [facility] [employer] GFR/1.73 sq M.predicted among blacks MDRD (S/P/Bld) [Vol rate/Area] mL/min/{1.73_m2} Normal 60 - 999 {ML/MINUTE } [facility], [facility].; [employer] GFR/1.73 sq M.predicted MDRD (S/P/Bld) [Vol rate/Area] mL/min/{1.73_m2} Normal 60 - 999 {ML/MINUTE } [employer] [facility], Inc.; [employer] Lipid 1996 panel LIPID PROFILE Normal [facility], Inc.; [employer] Prostate specific Ag [Mass/Vol] 0.85 ng/mL Normal 0.00 - 4.00 ng/mL [employer] Urea nitrogen/Creatinine [Mass ratio] 11 {ratio} Normal 0 - 30 {ratio} [employer] No Panel Informationon 05-01 AGE 64 {years} Normal [employer] HAND RT MIN 3 VIEWSon 2023 HAND RT MIN 3 VIEWS [place] [address] Patient: MINISTERIO LEAL. Phone#: : 1960 Age: 64 Gender: M Pt. Type: Out Account: [id number] Location: [facility] Ordering: JOSE SAHA Exam Date: 04/26/2024/9:44 Family Phys: HITESH DAI Charge Code: 423226 Physician: Phelps Order #: [id number] Dose#: PROCEDURE: X-RAY HAND RT COMPLETE MIN 3 VIEWS COMPARISON: None. INDICATIONS: Hand injury. FINDINGS: BONES: Normal. No significant arthropathy or acute abnormality. SOFT TISSUES: Negative. No visible soft tissue swelling. EFFUSION: None visible. OTHER: Negative. CONCLUSION: No acute disease. Dictated by: Tri Theodore MD on 04/26/2024 at 11:45 Approved by: Tri Theodore MD on 04/26/2024 at 11:45 [facility] 03-31-2024 [facility] Telephone (AGGASTACC ) ----- MINISTERIO LEAL ([id number]) 1960 M Date Time Provider Department 03/31/24 GEORGE CULVER AGGASTACC During your visit today, we recorded the following information about you: Coral Sandoval MA 03/31/2024 9:47 AM Signed Received a call from Endo at [place] per Anesthesia pt needs scoped in [place] also said needs pre testing, and should see Vascular Srg has Infererior/superior artery stenosis 70-99%, said it did not look like pt followed up with Vascular , should scope be postponed or is it okay to [place] Amy M, MA 04/07/2024 11:45 AM Signed Patient contacted office for vascular surgery to review CT scan report from [facility] on 12/30/2023 that is scanned into the chart for clearance to proceed with upcoming colonoscopy. He is having a lot of pain and does not want to cancel his colonoscopy. Patient last saw Dr. Richardson 01/09/2021. Explained to the patient since he has not seen Dr. Richardson recently she may not give that clearance. He verbalized understanding. Patient can be reached back at [phone]. Yvonne Lui MA 04/07/2024 3:28 PM Signed Gio Richardson, DO You; Coral Sandoval MA; [facility] Clinical Pool3 hours ago (12:02 PM) In reviewing his chart, he is cleared for colonoscopy. I do recommend a follow up with vascular surgery with mesenteric duplex in the near future Thank you Beth José RN 04/08/2024 3:27 PM Signed Called patient, is scheduled for US and appt on 05/11/24. Allergies As of Date: 03/31/2024 Noted Allergy Reaction OMEPRAZOLE 05/26/2015 14 - Other: See Comments Comments: Severe Headaches SENNA 02/09/2023 16 - Unknown Comments: Bottom lip swelled. Stopped swelling when senna dc Date Reviewed: 01/15/2024 Reviewed by: George Culver MD - Fully Assessed Reason for Visit: [...] Encounter Status:Closed by JENIFER IRIZARRY on 06/17/24 [facility] Rg 02-18-2024 [place] Telephone (AGGASTACC ) ----- MINISTERIO LEAL ([id number]) 1960 M Date Time Provider Department 02/18/24 GEORGE CULVER During your visit today, we recorded the following information about you: Abhi Daly 02/18/2024 1:26 PM Signed Patient is currently taking dicyclomine but it is giving him terrible gut pain. He is experiencing colitis. Wants to know if anything else stronger can be prescribed that is not a narcotic? Jessy Munoz PA-C 02/18/2024 2:24 PM Signed Have pt discontinue the bentyl. Is he having any other symptoms? Lets see if stopping the bentyl helps his abdominal pain first before sending something new in -HARPER Forbes Raphaella 02/18/2024 3:04 PM Signed Patient said it's just really bad cramping and he goes to the bathroom a lot until there is nothing left. He was only taking the pill as needed but now it is no longer helping him. Jessy Munoz PA-C 02/19/2024 7:36 AM Signed I ordered stool testing to look for a bacterial cause. I will send in another medication to take instead of bentyl, I am going to send Levsin to use as needed for diarrhea and abdominal pain -HARPER Forbes Kelsey, PA-C 02/19/2024 7:36 AM Signed Addended by: JESSY GIBBONS on: 02/19/2024 07:36 AM Modules accepted: Abhi Frias 02/19/2024 10:05 AM Signed Patient is upset because he doesn't understand why he has to keep completing the same type of stool tests over that he just recently completed. He was also insulted by the c-diff stool test. His results always come back negative. Also states he does not have diarrhea. Informed patient of new medication below. Patient understood. Jessy Munoz PA-C 02/19/2024 10:23 AM Signed Pt said he was having diarrhea / frequent BM. We order these tests for everyone with those sx. If he is not having diarrhea, no need to do stool testing. He can continue levsin -HARPER Forbes Raphaella 02/19/2024 1:50 PM Signed Called patient per notes below. Patient understood. Abhi Daly Allergies As of Date: 02/18/2024 Noted Allergy Reaction OMEPRAZOLE 05/26/2015 14 - Other: See Comments Comments: Severe Headaches SENNA 02/09/2023 16 - Unknown Comments: Bottom lip swelled. Stopped swelling when senna dc Date Reviewed: 01/15/2024 Reviewed by: George Culver MD - Fully Assessed Reason for Visit: Patient Question [1477] Primary Visit Diagnosis:Diarrhea, unspecified type [R19.7] Order(s):C. DIFFICILE PCR [SQCDPCR] Order #: [id number] FUTURE EXPANDED STOOL GASTROINTESTINAL PANEL BY PCR [SQSTGIPI] Order #: [id number] FUTURE hyoscyamine (LEVSIN) 0.125 mg tabletTake 1 tablet by mouth every 4 hours as needed for diarrhea (and abdominal pain).Disp: 90 tabletRfl: 1 Prescriptions as of 02/19/2024 - hyoscyamine (LEVSIN) 0.125 mg tablet Take 1 tablet by mouth every 4 hours as needed for diarrhea (and abdominal pain). - dicyclomine (BENTYL) 20 mg tablet Take 1 tablet by mouth three times a day as needed (abdominal pain). - ondansetron (ZOFRAN) 4 mg tablet [...] 75 mg by mouth once daily. - sucralfate (CARAFATE) 1 gram tablet Take 1 g by mouth as needed. - rosuvastatin (CRESTOR) 10 mg tablet Take 1 tablet by mouth daily at bedtime. - aspirin 81 mg chewable tablet Take 1 tablet by mouth once daily. 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 [facility] Rg 02-10-2024 [place] Telephone (AGGASTACC ) ----- MINISTERIO LEAL ([id number]) 1960 M Date Time Provider Department 02/10/24 GEORGE CULVER During your visit today, we recorded the following information about you: Coral Sandoval MA 02/10/2024 1:07 PM Signed Pt calling for stool results LELIA Aguilar Kelsey, PA-C 02/12/2024 10:38 AM Signed The marker for inflammation in the colon was elevated. The next to evaluate this would be a colonoscopy, which is scheduled for March. Pancreatic elastase- which measure pancreas enzymes in the stool- was a normal level. -HARPER Forbes Shawna, MA 02/12/2024 4:06 PM Signed Pt informed Coral Sandoval MA Allergies As of Date: 02/10/2024 Noted Allergy Reaction OMEPRAZOLE 05/26/2015 14 - Other: See Comments Comments: Severe Headaches SENNA 02/09/2023 16 - Unknown Comments: Bottom lip swelled. Stopped swelling when senna dc Date Reviewed: 01/15/2024 Reviewed by: George Culver MD - Fully Assessed Reason for Visit: Results [95] Prescriptions as of 02/12/2024 - dicyclomine (BENTYL) 20 mg tablet Take 1 tablet by mouth three times a day as needed (abdominal pain). - ondansetron (ZOFRAN) 4 mg tablet [...] 75 mg by mouth once daily. - sucralfate (CARAFATE) 1 gram tablet Take 1 g by mouth as needed. - rosuvastatin (CRESTOR) 10 mg tablet Take 1 tablet by mouth daily at bedtime. - aspirin 81 mg chewable tablet Take 1 tablet by mouth once daily. 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 Calprotectin (Stl) [Mass/Mas s]on 01-29-2024 CALPROTECTIN, FECAL INTERP Elevated Abnormal Normal [facility] Comment on above: Order Comment: Speci men Type: STOOL SPECIMENOrdering Facility: [facility] Address: [address] [place] [address] Result Comment: Inte rpretation: <50.0 ug/g: Normal 50.0 ug/g - 120.0 ug/g: Borderline elevated. Re-evaluation in 4-6 weeks is recommended if clinically indicated. >120.0 ug/g: Elevated Performed By: #### P ANCEF, [id number] ####[facility] LABCLIA [id number] [place] [address] [place] CALPROTECTIN, FECAL QUANTITATIVE 226 ug/g High <50 [facility] Comment on above: Order Comment: Speci men Type: STOOL SPECIMENOrdering Facility: [facility] Address: [address] [place] [address] Performed By: #### P ANCEF, [id number] ####[facility] LABCLIA [id number] [place] [address] [place] PANC ELASTASE, FECALon 01-28 ELASTASE INTERPRETATION Normal Normal Normal [facility] Comment on above: Order Comment: Speci men Type: STOOL SPECIMENOrdering Facility: [facility] Address: [address] [place] [address] Performed By: #### P ANCEF, [id number] ####[facility] LABCLIA [id number] [place] [address] [place] ELASTASE-1 CONCENTRATION >800 Normal >=200 [facility] Comment on above: Order Comment: Speci men Type: STOOL SPECIMENOrdering Facility: [facility] Address: [address] [place] [address] Result Comment: Inte rpretation: <100 ug/g: Severe Exocrine Pancreatic Insufficiency 100-199 ug/g: Mild to Moderate Exocrine Pancreatic Insufficiency >=200 ug/g: Normal Performed By: #### P ANCEF, 79409-0 ####[facility] LABCLIA [id number] [address] [place] CNOVon 01-15-2024 CNOV Office Visit (BELKISAST N) ----- MINISTERIO LEAL ([id number]) 1960 M Date Time Provider Department 01/15/24 3:30 PM GEORGE CULVER During your visit today, we recorded the following information about you: Pulse Blood pressure Weight Height 71/minute 124/74 52.2 kg 1.778 m George Culver MD 01/15/2024 4:44 PM Signed HPI: Ministerio Leal is a 63 year old male who presents for follow up of Follow Up. Pt was at [facility] a few wks ago. Starts out w nl stools then thinner stools frequently and had abd pain. Colonoscopy done at [place] apparently was ok last yr. CT scan did not show inc'd mesenteric vascular stenosis. No blood, mild nausea no emesis. Current Outpatient Medications Medication Sig dicyclomine (BENTYL) 20 mg tablet Take 1 tablet by mouth three times a day as needed (abdominal pain). acetaminophen 325 mg-caffeine 40 mg-butalbital 50 [...] Take 1 tablet by mouth once daily. ondansetron (ZOFRAN) 4 mg tablet Take 1 tablet by mouth every 8 hours as needed for nausea/vomiting. sucralfate (CARAFATE) 1 gram tablet Take 1 g by mouth as needed. rosuvastatin (CRESTOR) 10 mg tablet [...] paralysis, seizures or tremors PHYSICAL EXAMINATION: BP 124/74 Pulse 71 Ht 5' 10 (1.78m) Wt 115 lb (52.2kg) BMI 16.50 kg/(m2). GENERAL APPEARANCE: Well appearing, alert, in no acute distress, well-hydrated, well nourished. EYES: No icterus ABDOMEN: Normal, soft, sl tender LLQ, no masses or organomegaly. ASSESSMENT AND PLAN: ASSESSMENT/PLAN: 1. Diarrhea, unspecified type - ICD9: 787.91, ICD10: R19.7 (primary diagnosis) - PANC ELASTASE, FECAL - CALPROTECTIN,FECAL - COLONOSCOPY DIAGNOSTIC 2. LLQ pain - ICD9: 789.04, ICD10: R10.32 - COLONOSCOPY DIAGNOSTIC MD Lori Grover Shawna, MA 01/28/2024 11:09 AM Signed Addended by: CORAL SANDOVAL on: 01/28/2024 11:09 AM Modules accepted: Orders Coral Sandoval MA 04/19/2024 1:56 PM Signed Addended by: CORAL SANDOVAL on: 04/19/2024 01:56 PM Modules accepted: Orders Allergies As of Date: 01/15/2024 Noted Allergy Reaction OMEPRAZOLE 05/26/2015 14 - Other: See Comments Comments: Severe Headaches SENNA 02/09/2023 16 - Unknown Comments: Bottom lip swelled. Stopped swelling when senna dc Date Reviewed: 01/15/2024 Reviewed by: George Culver MD - Fully Assessed Reason for Visit: Follow Up [171] Primary Visit Diagnosis:Diarrhea, unspecified type [R19.7] Other Visit Diagnosis:LLQ pain [R10.32] Order(s):[] PANC ELASTASE, FECAL [SQPANCEF] Order #: [id number] FUTURE [] CALPROTECTIN,FECAL [SQCALPRO] Order #: [id number] FUTURE COLONOSCOPY DIAGNOSTIC [GI11] Order #: [id number] FUTURE Prescriptions as of 04/19/2024 - hyoscyamine (LEVSIN) 0.125 mg tablet Take 1 tablet by mouth every 4 hours as needed for diarrhea (and abdominal pain). - dicyclomine (BENTYL) 20 mg tablet Take 1 tablet by mouth three times a day as needed (abdominal pain). - ondansetron (ZOFRAN) 4 mg tablet [...] 75 mg by mouth once daily. - sucralfate (CARAFATE) 1 gram tablet Take 1 g by mouth as needed. - rosuvastatin (CRESTOR) 10 mg tablet Take 1 table (more content not included)... Normal [facility] Rg 12-30-2023 ANDIN Telephone (AGGASTW) ----- MINISTERIO LEAL ([id number]) 1960 M Date Time Provider Department 12/30/23 GEORGE CULVER During your visit today, we recorded the following information about you: Delmer Rivera 12/30/2023 8:36 AM Signed Patient called in stating that they were in extreme abdominal pain and that they were going to the ED at [place]. December 30, 2023 8:36 AM Delmer Miguel Allergies As of Date: 12/30/2023 Noted Allergy Reaction OMEPRAZOLE 05/26/2015 14 - Other: See Comments Comments: Severe Headaches SENNA 02/09/2023 16 - Unknown Comments: Bottom lip swelled. Stopped swelling when senna dc Date Reviewed: 05/07/2023 Reviewed by: Antoine Ordaz - Fully Assessed Reason for Visit: Patient Update [1234] Prescriptions as of 12/30/2023 - dicyclomine (BENTYL) 20 mg tablet Take 1 tablet by mouth three times a day as needed (abdominal pain). - ondansetron (ZOFRAN) 4 mg tablet [...] 75 mg by mouth once daily. - sucralfate (CARAFATE) 1 gram tablet Take 1 g by mouth as needed. - rosuvastatin (CRESTOR) 10 mg tablet Take 1 tablet by mouth daily at bedtime. - aspirin 81 mg chewable tablet Take 1 tablet by mouth once daily. 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 Laboratory - Chemistry and C hemistry - challengeon 05-03-2023 Albumin [Mass/Vol] 3.6 g/dL Normal 3.4 - 5.0 g/dL [facility], [facility]; [employer] [facility] Albumin [Mass/Vol] 1.1 g/dL Normal 0.9 - 1.6 [employer] [facility]; [employer] ALP [Catalytic activity/Vol] 106 U/L Normal 46 - 116 U/L [facility] [facility].; [employer] ALT [Catalytic activity/Vol] 26 U/L Normal 16 - 63 U/L [facility].; [employer] ALT No additional P-5'-P [Catalytic activity/Vol] 26 U/L Normal 16 - 63 U/L [facility].; [facility], [facility]. Anion gap [Moles/Vol] 10 mmol/L Normal 10 - 2 0 mmol/L [facility].; [facility], [facility]. AST [Catalytic activity/Vol] 20 U/L Normal 15 - 37 U/L [facility].; [facility], [facility] Bilirubin [Mass/Vol] 0.2 mg/dL Normal 0.2 - 1 .0 mg/dL [facility].; [facility], [facility] Calcium [Mass/Vol] 8.8 mg/dL Normal 8.5 - 10. 1 mg/dL [facility].; [facility], [facility] Chloride [Moles/Vol] 106 mmol/L Normal 98 - 10 7 mmol/L [facility]; [facility], [facility]. Cholesterol [Mass/Vol] 108 mg/dL Normal 0 - 2 40 mg/dL [facility].; [facility], [facility] Cholesterol in HDL [Mass or moles/Vol] 46 mg/dL Normal 40 - 60 mg/dL [facility].; [facility], [facility] Cholesterol in LDL [Mass/Vol] 31 mg/dL Normal 0 - 129 mg/dL [facility].; [facility], [facility]. Cholesterol.total/Choles terol in HDL [Mass ratio] 2.3 {ratio} Normal 0.0 - 5.0 [facility]; [facility], [facility] CO2 [Moles/Vol] 30.6 mmol/L Normal 21.0 - 32.0 mmol/L [facility].; [facility], [facility]. Comprehensive metabolic 2000 panel CMP with eGFR Normal [facility]; [facility], [facility] Creatinine [Mass/Vol] 0.88 mg/dL Normal 0.70 - 1.30 mg/dL [facility].; [facility], [facility]. GFR/1.73 sq M.predicted among blacks MDRD (S/P/Bld) [Vol rate/Area] mL/min/{1.73_m2} Normal 60 - 999 {ML/MINUTE } [facility].; [facility], Inc[facility] GFR/1.73 sq M.predicted MDRD (S/P/Bld) [Vol rate/Area] mL/min/{1.73_m2} Normal 60 - 999 {ML/MINUTE } [facility].; [facility], [facility] Globulin (S) [Mass/Vol] 3.2 g/dL Normal 1.5 - 3.8 g/dL [facility].; [employer] [facility], [facility] Glucose [Mass/Vol] 89 mg/dL Normal 74 - 106 mg/dL [facility]; [employer] [facility] Lipid 1996 panel LIPID PROFILE Normal [facility]; [facility], [facility] Potassium [Moles/Vol] 3.8 mmol/L Normal 3.5 - 5.1 mmol/L [facility]; [employer] [facility], [facility] Protein [Mass/Vol] 6.8 g/dL Normal 6.4 - 8.2 g/dL [facility]; [employer] [facility], [facility] Sodium [Moles/Vol] 143 mmol/L Normal 136 - 145 mmol/L [facility]; [employer] [facility] Triglyceride [Mass/Vol] 156 mg/dL Abnormal 0 - 150 mg/dL [facility]; [employer] [facility]. Urea nitrogen [Mass/Vol] 13 mg/dL Normal 7 - 18 mg/dL [facility]; [employer] [facility] Urea nitrogen/Creatinine [Mass ratio] 15 {ratio} Normal 0 - 30 {ratio} [facility].; [employer] [facility] No Panel Informationon 05-03 AGE 63 {years} Normal [employer] [facility]; [employer] [facility] Absolute lymphocyte countOrd ered By: Moris Julio César on 04-25-2023 Lymphocytes Auto (Unsp spec) [#/Vol] 1.04 10*3/uL 0.83-4.51 [facility] Basophil percentageOrdered B y: Morisjoan Angela on 04-25-2023 Basophils/100 WBC (Bld) 0.7 % 0-1 [facility] Bilirubin [Mass/Vol] 0.20 mg/dL 0.20-1.00 [facility] Comment on above: For patients on eltr ombopag therapy, use of Dimension [employer]iggins TBIL is not recommended. Chloride [Moles/Vol] 106 mmol/L 98-107 [facility] Eosinophils/100 WBC (Bld) 0.7 % 0-5 [facility] Glucose [Mass/Vol] 94 mg/dL 74-106 [facility] Lactate [Moles/Vol] 2.4 mmol/L 0.4-2.0 [facility] Comment on above: Critical Result(s) C alled at: 05:54:23 04/25/2023 by: ROBERT Kwong RN ER. Results read back by same. Neutrophils (Bld) [#/Vol] 13.5 10*3/uL 2.0-7.7 [facility] Neutrophils/100 WBC (Bld) 84.2 % 47-70 [facility] Potassium [Moles/Vol] 3.7 mmol/L 3.5-5.1 [facility] Protein [Mass/Vol] 8.1 g/dL 6.4-8.2 [facility] Sodium [Moles/Vol] 137 mmol/L 136-145 [facility] WBC (Bld) [#/Vol] 16.0 10*3/uL 4.4-11.0 [facility] Blood erythrocytes count (nu mber/volume)Ordered By: Moris Angela on 04-25-2023 RBC (Bld) [#/Vol] 5.02 10*6/uL 4.6-6.2 [facility] Blood hemoglobin measurement (mass/volume)Ordered By: Moris Angela on 04-25-2023 Hemoglobin (Bld) [Mass/Vol] 12.6 g/dL 13.0-16.5 [facility] Blood lymphocytes/100 leukoc ytesOrdered By: Moris Angela on 04-25-2023 Lymphocytes/100 WBC (Bld) 6.5 % 19-41 [facility] Blood monocytes/100 leukocyt esOrdered By: Moris Angela on 04-25-2023 Monocytes/100 WBC (Bld) 7.4 % 0-10 [facility] Blood platelet mean volumeOr dered By: Moris Angela on 04-25-2023 Platelet mean volume (Bld) [Entitic vol] 12.7 fL 6.2-12.0 [facility] Determination of erythrocyte mean corpuscular volume (MCV)Ordered By: Morsi Angela on 04-25-2023 MCV (RBC) [Entitic vol] 83.5 fL 80-94 [facility] Hematocrit Auto (Bld) [Volum e fraction]Ordered By: Moirsjoan Angela on 04-25-2023 Hematocrit (Bld) [Volume fraction] 41.9 % 40-54 [facility] Laboratory - Chemistry and C hemistry - challengeOrdered By: [facility] on 04-25-2023 ALP [Catalytic activity/Vol] 116 U/L 45-117 [facility] ALT [Catalytic activity/Vol] 24 U/L 16-61 [facility] CO2 [Moles/Vol] 26.0 mmol/L 21.0-32.0 [facility] Globulin (S) [Mass/Vol] 3.8 g/dL 2.2-4.2 [facility] Lipase [Catalytic activity/Vol] 25 U/L 13-75 [facility] Comment on above: Please note:LIPASE r evised reference range effective 22. New Lipase methodology. Expected to produce lower values than the previous assay method. NEW Reference Range: 13 - 75 U/L Urea nitrogen/Creatinine [Mass ratio] 13.0 mg/mg 10-20 [facility] Laboratory - Hematology and Cell countsOrdered By: Morisjoan Angela on 04-25-2023 Erythrocyte distribution width (RBC) [Entitic vol] 45.4 fL 35.1-43.9 [facility] Erythrocyte distribution width (RBC) [Ratio] 15.1 % 11.6-14.6 [facility] Immature granulocytes/100 WBC (Bld) 0.500 % 0.0-0.9 [facility] Comment on above: IG% - Immature Granu locytes (promyelocytes, myelocytes and metamyelocytes) > 1% indicates that a LEFT SHIFT is Present. MCH (RBC) [Entitic mass] 25.1 pg 27.0-32.0 [facility] Nucleated RBC/100 WBC (Bld) [Ratio] 0 % 0-5 [facility] MCHC Auto (RBC) [Mass/Vol]Or dered By: Moris Angela on 04-25-2023 MCHC (RBC) [Mass/Vol] 30.1 g/dL 32-36 [facility] No Panel InformationOrdered By: Moris Angela on 04-25-2023 Estimated Creatinine Clearance Calc 56.01 ml/min [facility] Estimated GFR (MDRD) Amer 97 mL/min >60 [facility] Comment on above: GFR Calc Estimated GFR (MDRD) Non-Af Amer 81 mL/min >60 [facility] Comment on above: Non- GFR Calc Platelets bldOrdered By: Charlie Angela on 04-25-2023 Platelets (Bld) [#/Vol] 242 10*3/uL 150-450 [facility] Serum or plasma albumin gideon urement (mass/volume)Ordered By: Moris Angela on 04-25-2023 Albumin [Mass/Vol] 4.3 g/dL 3.2-5.0 [facility] Serum or plasma albumin/glob ulin mass ratioOrdered By: Moris Angela on 04-25-2023 Albumin/Globulin [Mass ratio] 1.1 {ratio} 0.9-2.4 [facility] Serum or plasma calcium gideon urement (mass/volume)Ordered By: Moris Angela on 04-25-2023 Calcium [Mass/Vol] 9.4 mg/dL 8.5-10.1 [facility] Serum or plasma creatinine m easurement (mass/volume)Ordered By: Moris Angela on 04-25-2023 Creatinine [Mass/Vol] 1.00 mg/dL 0.70-1.30 [facility] Comment on above: The validity of the calculated GFR & GFRAA in patients over 70 years has not been determined. Clinical correlation is essential. Serum or plasma urea nitroge n measurement (mass/volume)Ordered By: Moris Angela on 04-25-2023 Urea nitrogen [Mass/Vol] 13 mg/dL 7-18 [facility] Thin prep Papanicolaou smear with manual screeningOrdered By: Moris Angela on 04-25-2023 Thin prep Papanicolaou smear with manual screening 20 U/L 15-37 [facility] Thin prep Papanicolaou smear with manual screening 5 5-15 [facility] Absolute lymphocyte countOrd ered By: Moris Angela on 04-14-2023 Lymphocytes Auto (Unsp spec) [#/Vol] 1.38 10*3/uL 0.83-4.51 [facility] Basophil percentageOrdered B y: Moris Angela on 04-14-2023 Lactate [Moles/Vol] 1.7 mmol/L 0.4-2.0 [facility] Basophil percentage 0 SEEN /hpf 0-5 [facility] Basophils/100 WBC (Bld) 0.8 % 0-1 [facility] Bilirubin [Mass/Vol] 0.50 mg/dL 0.20-1.00 [facility] Comment on above: For patients on eltr ombopag therapy, use of Dimension Wiggins TBIL is not recommended. Chloride [Moles/Vol] 107 mmol/L 98-107 [facility] Eosinophils/100 WBC (Bld) 2.5 % 0-5 [facility] Glucose [Mass/Vol] 101 mg/dL 74-106 [facility] Comment on above: Fasting Glucose resu lt from 100 to 125 mg/dL suggests IMPAIRED HOMEOSTASIS per A.D.A. criteria. Neutrophils (Bld) [#/Vol] 5.9 10*3/uL 2.0-7.7 [facility] Neutrophils/100 WBC (Bld) 70.0 % 47-70 [facility] Potassium [Moles/Vol] 3.5 mmol/L 3.5-5.1 [facility] Protein [Mass/Vol] 7.5 g/dL 6.4-8.2 [facility] Sodium [Moles/Vol] 141 mmol/L 136-145 [facility] WBC (Bld) [#/Vol] 8.5 10*3/uL 4.4-11.0 [facility] Bilirubin Test strip Ql (U)O rdered By: Moris Angela on 04-14-2023 Bilirubin Ql (U) Negative Negative [facility] Blood erythrocytes count (nu mber/volume)Ordered By: Moris Angela on 04-14-2023 RBC (Bld) [#/Vol] 4.71 10*6/uL 4.6-6.2 [facility] Blood hemoglobin measurement (mass/volume)Ordered By: Moris Angela on 04-14-2023 Hemoglobin (Bld) [Mass/Vol] 12.0 g/dL 13.0-16.5 [facility] Blood lymphocytes/100 leukoc ytesOrdered By: Moris Angela on 04-14-2023 Lymphocytes/100 WBC (Bld) 16.3 % 19-41 [facility] Blood monocytes/100 leukocyt esOrdered By: Moris Angela on 04-14-2023 Monocytes/100 WBC (Bld) 10.0 % 0-10 [facility] Blood platelet mean volumeOr dered By: Moris Angela on 04-14-2023 Platelet mean volume (Bld) [Entitic vol] 12.3 fL 6.2-12.0 [facility] Determination of erythrocyte mean corpuscular volume (MCV)Ordered By: Moris Angela on 04-14-2023 MCV (RBC) [Entitic vol] 82.6 fL 80-94 [facility] Hematocrit Auto (Bld) [Volum e fraction]Ordered By: Moris Angela on 04-14-2023 Hematocrit (Bld) [Volume fraction] 38.9 % 40-54 [facility] Ketones Test strip Ql (U)Ord ered By: Moris Angela on 04-14-2023 Ketones Ql (U) Negative Negative [facility] Laboratory - Chemistry and C hemistry - challengeOrdered By: Moris Angela on 04-14-2023 ALP [Catalytic activity/Vol] 111 U/L 45-117 [facility] ALT [Catalytic activity/Vol] 30 U/L 16-61 [facility] CO2 [Moles/Vol] 28.0 mmol/L 21.0-32.0 [facility] Globulin (S) [Mass/Vol] 3.4 g/dL 2.2-4.2 [facility] Urea nitrogen/Creatinine [Mass ratio] 12.1 mg/mg 10-20 [facility] Laboratory - Hematology and Cell countsOrdered By: Moris Angela on 04-14-2023 Erythrocyte distribution width (RBC) [Entitic vol] 43.2 fL 35.1-43.9 [facility] Erythrocyte distribution width (RBC) [Ratio] 14.4 % 11.6-14.6 [facility] Immature granulocytes/100 WBC (Bld) 0.400 % 0.0-0.9 [facility] Comment on above: IG% - Immature Granu locytes (promyelocytes, myelocytes and metamyelocytes) > 1% indicates that a LEFT SHIFT is Present. MCH (RBC) [Entitic mass] 25.5 pg 27.0-32.0 [facility] Nucleated RBC/100 WBC (Bld) [Ratio] 0 % 0-5 [facility] MCHC Auto (RBC) [Mass/Vol]Or dered By: Moris Angela on 04-14-2023 MCHC (RBC) [Mass/Vol] 30.8 g/dL 32-36 [facility] Mucus LM Ql (Urine sed)Order ed By: Moris Angela on 04-14-2023 Mucus Ql (Urine sed) 0 SEEN /hpf [facility] Nitrite Test strip Ql (U)Ord ered By: Moris Angela on 04-14-2023 Nitrite Ql (U) Negative Negative [facility] No Panel InformationOrdered By: Moirs Angela on 04-14-2023 Estimated GFR (MDRD) Amer 98 mL/min >60 [facility] Comment on above: GFR Calc Estimated GFR (MDRD) Non-Af Amer 81 mL/min >60 [facility] Comment on above: Non- GFR Calc Platelets bldOrdered By: Charlie Angela on 04-14-2023 Platelets (Bld) [#/Vol] 230 10*3/uL 150-450 [facility] Protein Test strip Ql (U)Ord ered By: Moris Angela on 04-14-2023 Protein Ql (U) Negative Negative [facility] Serum or plasma albumin gideon urement (mass/volume)Ordered By: Moris Angela on 04-14-2023 Albumin [Mass/Vol] 4.1 g/dL 3.2-5.0 [facility] Serum or plasma albumin/glob ulin mass ratioOrdered By: Moris Angela on 04-14-2023 Albumin/Globulin [Mass ratio] 1.2 {ratio} 0.9-2.4 [facility] Serum or plasma calcium gideon urement (mass/volume)Ordered By: Moris Angela on 04-14-2023 Calcium [Mass/Vol] 9.3 mg/dL 8.5-10.1 [facility] Serum or plasma creatinine m easurement (mass/volume)Ordered By: Moris Angela on 04-14-2023 Creatinine [Mass/Vol] 0.99 mg/dL 0.70-1.30 [facility] Comment on above: The validity of the calculated GFR & GFRAA in patients over 70 years has not been determined. Clinical correlation is essential. Serum or plasma urea nitroge n measurement (mass/volume)Ordered By: Moris Angela on 04-14-2023 Urea nitrogen [Mass/Vol] 12 mg/dL 7-18 [facility] Squamous epithelial cells de tection in urine sediment by light microscopyOrdered By: Moris Angela on 04-14-2023 Epithelial cells.squamous LM Ql (Urine sed) 0-5 SEEN /hpf 0-5 [facility] Thin prep Papanicolaou smear with manual screeningOrdered By: Moris Angela on 04-14-2023 Thin prep Papanicolaou smear with manual screening 25 U/L 15-37 [facility] Thin prep Papanicolaou smear with manual screening 6 5-15 [facility] Urine blood detectionOrdered By: Moris Angela on 04-14-2023 RBC Ql (U) Negative Negative [facility] RBC Ql (U) 0 SEEN /hpf 0-5 [facility] Urine clarityOrdered By: Charlie Angela on 04-14-2023 Clarity (U) Clear Clear [facility] Urine color determinationOrd ered By: Moris Angela on 04-14-2023 Color (U) Yellow Yellow [facility] Urine glucose detectionOrder ed By: Moris Angela on 04-14-2023 Glucose Ql (U) Normal mg/dl Normal [facility] Urine leukocyte esterase det ection by dipstickOrdered By: Moris Angela on 04-14-2023 Leukocyte esterase Test strip Ql (U) Negative Negative [facility] Urine pHOrdered By: Moris Angela on 04-14-2023 pH (U) 8.0 [pH] 5.0 - 8.0 [facility] Urine sediment bacteria coun t by microscopy (number/high power field)Ordered By: Moris Angela on 04-14-2023 Bacteria LM.HPF (Urine sed) [#/Area] 0 /[HPF] None Seen [facility] Urine specific gravity measu rementOrdered By: Moris Angela on 04-14-2023 Specific gravity (U) [Rel density] 1.010 1.002-1.03 0 [facility] Urobilinogen Auto test strip Ql (U)Ordered By: Moris Angela on 04-14-2023 Urobilinogen Ql (U) Normal mg/dl Normal [facility] CBC W Auto Differential pane l (Bld)on 03-04-2023 Basophils (Bld) [#/Vol] 0.07 10*3/uL <0.11 k/uL [facility] Basophils/100 WBC (Bld) 0.8 % [facility] Differential cell count method Nom (Bld) Auto [facility] Eosinophils (Bld) [#/Vol] 0.25 10*3/uL <0.46 k/uL [facility] Eosinophils/100 WBC (Bld) 2.9 % [facility] Erythrocyte distribution width (RBC) [Ratio] 14.0 % 11.5 - 15.0 % [facility] Hematocrit (Bld) [Volume fraction] 37.6 % Low 39.0 - 51.0 % [facility] Hemoglobin (Bld) [Mass/Vol] 12.0 g/dL Low 13.0 - 17.0 g/dL [facility] Immature granulocytes (Bld) [#/Vol] 0.03 10*3/uL <0.10 k/uL [facility] Immature granulocytes/100 WBC (Bld) 0.3 % [facility] Lymphocytes (Bld) [#/Vol] 1.13 10*3/uL 1.00 - 4.00 k/uL [facility] Lymphocytes/100 WBC (Bld) 12.9 % [facility] MCH (RBC) [Entitic mass] 27.9 pg 26. 0 - 34.[address] [facility] MCHC (RBC) [Mass/Vol] 31.9 g/dL 30.5 - 36.0 g/dL [facility] MCV (RBC) [Entitic vol] 87.4 fL 80.0 - 100.[address] [facility] Monocytes (Bld) [#/Vol] 0.59 10*3/uL <0.87 k/uL [facility] Monocytes/100 WBC (Bld) 6.7 % [facility] Neutrophils (Bld) [#/Vol] 6.69 10*3/uL 1.45 - 7.50 k/uL [facility] Neutrophils/100 WBC (Bld) 76.4 % [facility] Nucleated RBC (Bld) [#/Vol] <0.01 k/uL [facility] Nucleated RBC/100 WBC (Bld) [Ratio] 0.0 /[address] [facility] Platelet mean volume (Bld) [Entitic vol] 12.5 fL 9.0 - 12.[address] [facility] Platelets (Bld) [#/Vol] 282 10*3/uL 150 - 400 k/uL [facility] RBC (Bld) [#/Vol] 4.30 10*6/uL 4.20 - 6.00 m/uL [facility] WBC (Bld) [#/Vol] 8.76 10*3/uL 3.70 - 11.00 k/uL [facility] CBC panel Auto (Bld)on 12-23 Erythrocyte distribution width (RBC) [Ratio] 13.4 % 11.5 - 15.0 % [facility] Hematocrit (Bld) [Volume fraction] 46.2 % 39.0 - 51.0 % [facility] Hemoglobin (Bld) [Mass/Vol] 16.2 g/dL 13.0 - 17.0 g/dL [facility] MCH (RBC) [Entitic mass] 31.2 pg 26. 0 - 34.[address] [facility] MCHC (RBC) [Mass/Vol] 35.1 g/dL 30.5 - 36.0 g/dL [facility] MCV (RBC) [Entitic vol] 88.8 fL 80.0 - 100.[address] [facility] Nucleated RBC (Bld) [#/Vol] <0.01 k/uL [facility] Platelet mean volume (Bld) [Entitic vol] 12.8 fL High 9.0 - 12.[address] [facility] Platelets (Bld) [#/Vol] 192 10*3/uL 150 - 400 k/uL [facility] RBC (Bld) [#/Vol] 5.20 10*6/uL 4.20 - 6.00 m/uL [facility] WBC (Bld) [#/Vol] 8.50 10*3/uL 3.70 - 11.00 k/uL [facility] Comprehensive metabolic 2000 panelon 12-23-2022 Albumin [Mass/Vol] 4.5 g/dL 3.9 - 4.9 g/dL [facility] ALP [Catalytic activity/Vol] 116 U/L High 38 - 113 U/L [facility] ALT [Catalytic activity/Vol] 13 U/L 10 - 54 U/L [facility] Anion gap [Moles/Vol] 10 mmol/L 9 - 18 mmol/L [facility] AST [Catalytic activity/Vol] 20 U/L 14 - 40 U/L [facility] Bilirubin [Mass/Vol] 0.5 mg/dL 0.2 - 1 .3 mg/dL [facility] Calcium [Mass/Vol] 9.4 mg/dL 8.5 - 10. 2 mg/dL [facility] Chloride [Moles/Vol] 101 mmol/L 97 - 10 5 mmol/L [facility] CO2 [Moles/Vol] 25 mmol/L 22 - 30 mmol/L [facility] Creatinine [Mass/Vol] 1.13 mg/dL 0.73 - 1.22 mg/dL [facility] Estimated Glomerular Filtration Rate 74 mL/min/1.73m >=60 mL/min/1.[address] [facility] Glucose [Mass/Vol] 100 mg/dL High 74 - 99 mg/dL [facility] Potassium [Moles/Vol] 3.9 mmol/L 3.7 - 5.1 mmol/L [facility] Protein [Mass/Vol] 7.0 g/dL 6.3 - 8.0 g/dL [facility] Sodium [Moles/Vol] 136 mmol/L 136 - 144 mmol/L [facility] Urea nitrogen [Mass/Vol] 10 mg/dL 9 - 24 mg/dL [facility] CTA ABD/PEL W IVCONon 2022 [facility] Absolute lymphocyte countOrd ered By: Popeye Camarena on 11-13-2022 Lymphocytes Auto (Unsp spec) [#/Vol] 1.61 10*3/uL 0.83-4.51 [facility] Basophil percentageOrdered B y: Popeye Camarena on 11-13-2022 Basophils/100 WBC (Bld) 0.9 % 0-1 [facility] Chloride [Moles/Vol] 108 mmol/L 98-107 [facility] Eosinophils/100 WBC (Bld) 2.7 % 0-5 [facility] Glucose [Mass/Vol] 87 mg/dL 74-106 [facility] Neutrophils (Bld) [#/Vol] 3.2 10*3/uL 2.0-7.7 [facility] Neutrophils/100 WBC (Bld) 56.3 % 47-70 [facility] Potassium [Moles/Vol] 3.7 mmol/L 3.5-5.1 [facility] Sodium [Moles/Vol] 140 mmol/L 136-145 [facility] WBC (Bld) [#/Vol] 5.7 10*3/uL 4.4-11.0 [facility] Blood erythrocytes count (nu mber/volume)Ordered By: Popeye Camarena on 11-13-2022 RBC (Bld) [#/Vol] 4.53 10*6/uL 4.6-6.2 [facility] Blood hemoglobin measurement (mass/volume)Ordered By: Popeye Camarena on 11-13-2022 Hemoglobin (Bld) [Mass/Vol] 14.0 g/dL 13.0-16.5 [facility] Blood lymphocytes/100 leukoc ytesOrdered By: Popeye Camarena on 11-13-2022 Lymphocytes/100 WBC (Bld) 28.4 % 19-41 [facility] Blood monocytes/100 leukocyt esOrdered By: Popeye Camarena on 11-13-2022 Monocytes/100 WBC (Bld) 11.5 % 0-10 [facility] Blood platelet mean volumeOr dered By: Popeye Camarena on 11-13-2022 Platelet mean volume (Bld) [Entitic vol] 13.0 fL 6.2-12.0 [facility] Determination of erythrocyte mean corpuscular volume (MCV)Ordered By: Popeye Camarena on 11-13-2022 MCV (RBC) [Entitic vol] 90.7 fL 80-94 [facility] Hematocrit Auto (Bld) [Volum e fraction]Ordered By: Popeye Camarena on 11-13-2022 Hematocrit (Bld) [Volume fraction] 41.1 % 40-54 [facility] Laboratory - Chemistry and C hemistry - challengeOrdered By: Popeye Camarena on 11-13-2022 CO2 [Moles/Vol] 25.0 mmol/L 21.0-32.0 [facility] Urea nitrogen/Creatinine [Mass ratio] 11.1 mg/mg 10-20 [facility] Laboratory - Hematology and Cell countsOrdered By: Popeye Camarena on 11-13-2022 Erythrocyte distribution width (RBC) [Entitic vol] 47.3 fL 35.1-43.9 [facility] Erythrocyte distribution width (RBC) [Ratio] 14.0 % 11.6-14.6 [facility] Immature granulocytes/100 WBC (Bld) 0.200 % 0.0-0.9 [facility] Comment on above: IG% - Immature Granu locytes (promyelocytes, myelocytes and metamyelocytes) > 1% indicates that a LEFT SHIFT is Present. MCH (RBC) [Entitic mass] 30.9 pg 27.0-32.0 [facility] Nucleated RBC/100 WBC (Bld) [Ratio] 0 % 0-5 [facility] MCHC Auto (RBC) [Mass/Vol]Or dered By: Popeye Camarena on 11-13-2022 MCHC (RBC) [Mass/Vol] 34.1 g/dL 32-36 [facility] No Panel InformationOrdered By: Popeye Camarena on 11-13-2022 Estimated Creatinine Clearance Calc 55.39 ml/min [facility] Estimated GFR (MDRD) Amer 99 mL/min >60 [facility] Comment on above: GFR Calc Estimated GFR (MDRD) Non-Af Amer 81 mL/min >60 [facility] Comment on above: Non- GFR Calc Platelets bldOrdered By: Cesario Camarena on 11-13-2022 Platelets (Bld) [#/Vol] 174 10*3/uL 150-450 [facility] Serum or plasma calcium gideon urement (mass/volume)Ordered By: Popeye Camarena on 11-13-2022 Calcium [Mass/Vol] 8.5 mg/dL 8.5-10.1 [facility] Serum or plasma creatinine m easurement (mass/volume)Ordered By: Popeye Camarena on 11-13-2022 Creatinine [Mass/Vol] 0.99 mg/dL 0.70-1.30 [facility] Comment on above: The validity of the calculated GFR & GFRAA in patients over 70 years has not been determined. Clinical correlation is essential. Serum or plasma urea nitroge n measurement (mass/volume)Ordered By: Popeye Camarena on 11-13-2022 Urea nitrogen [Mass/Vol] 11 mg/dL 7-18 [facility] Thin prep Papanicolaou smear with manual screeningOrdered By: Popeye Camarena on 11-13-2022 Thin prep Papanicolaou smear with manual screening 7 5-15 [facility] Basophil percentageOrdered B y: Kristine Parker on 11-12-2022 Bilirubin [Mass/Vol] 0.60 mg/dL 0.20-1.00 [facility] Comment on above: For patients on eltr ombopag therapy, use of Dimension Wiggins TBIL is not recommended. Lactate [Moles/Vol] 1.5 mmol/L 0.4-2.0 [facility] Protein [Mass/Vol] 7.7 g/dL 6.4-8.2 [facility] Direct bilirubinOrdered By: Kristine Parker on 11-12-2022 Bilirubin.direct [Mass/Vol] 0.13 mg/dL 0.00-0.30 [facility] Laboratory - Chemistry and C hemistry - challengeOrdered By: Kristine Parker on 11-12-2022 ALP [Catalytic activity/Vol] 132 U/L 45-117 [facility] ALT [Catalytic activity/Vol] 22 U/L 16-61 [facility] Globulin (S) [Mass/Vol] 3.5 g/dL 2.2-4.2 [facility] Lipase [Catalytic activity/Vol] 22 U/L 13-75 [facility] Comment on above: Please note:LIPASE r evised reference range effective 22. New Lipase methodology. Expected to produce lower values than the previous assay method. NEW Reference Range: 13 - 75 U/L Laboratory - Chemistry and C hemistry - challengeOrdered By: Popeye Camarena on 11-12-2022 Magnesium [Mass/Vol] 2.2 mg/dL 1.6-2.6 [facility] Serum or plasma albumin gideon urement (mass/volume)Ordered By: Kristine Parker on 11-12-2022 Albumin [Mass/Vol] 4.2 g/dL 3.2-5.0 [facility] Thin prep Papanicolaou smear with manual screeningOrdered By: Kristine Parker on 11-12-2022 Thin prep Papanicolaou smear with manual screening 23 U/L 15-37 [facility] Absolute lymphocyte countOrd ered By: Dr. Alonzo on 10-10-2022 Lymphocytes Auto (Unsp spec) [#/Vol] 1.66 10*3/uL 0.83-4.51 [facility] Basophil percentageOrdered B y: Dr. Alonzo on 10-10-2022 Basophils/100 WBC (Bld) 0.8 % 0-1 [facility] Bilirubin [Mass/Vol] 0.40 mg/dL 0.20-1.00 [facility] Comment on above: For patients on eltr ombopag therapy, use of Dimension Wiggins TBIL is not recommended. Chloride [Moles/Vol] 109 mmol/L 98-107 [facility] Eosinophils/100 WBC (Bld) 2.3 % 0-5 [facility] Glucose [Mass/Vol] 80 mg/dL 74-106 [facility] Neutrophils (Bld) [#/Vol] 3.6 10*3/uL 2.0-7.7 [facility] Neutrophils/100 WBC (Bld) 58.7 % 47-70 [facility] Potassium [Moles/Vol] 3.7 mmol/L 3.5-5.1 [facility] Comment on above: Slight Hemolysis, Re sult may be falsely increased. Protein [Mass/Vol] 6.2 g/dL 6.4-8.2 [facility] Sodium [Moles/Vol] 136 mmol/L 136-145 [facility] WBC (Bld) [#/Vol] 6.1 10*3/uL 4.4-11.0 [facility] Blood erythrocytes count (nu mber/volume)Ordered By: Dr. Alonzo on 10-10-2022 RBC (Bld) [#/Vol] 4.47 10*6/uL 4.6-6.2 [facility] Blood hemoglobin measurement (mass/volume)Ordered By: Dr. Alonzo on 10-10-2022 Hemoglobin (Bld) [Mass/Vol] 13.7 g/dL 13.0-16.5 [facility] Blood lymphocytes/100 leukoc ytesOrdered By: Dr. Alonzo on 10-10-2022 Lymphocytes/100 WBC (Bld) 27.1 % 19-41 [facility] Blood monocytes/100 leukocyt esOrdered By: Dr. Alonzo on 10-10-2022 Monocytes/100 WBC (Bld) 10.9 % 0-10 [facility] Blood platelet mean volumeOr dered By: Dr. Alonzo on 10-10-2022 Platelet mean volume (Bld) [Entitic vol] 12.5 fL 6.2-12.0 [facility] Determination of erythrocyte mean corpuscular volume (MCV)Ordered By: Dr. Alonzo on 10-10-2022 MCV (RBC) [Entitic vol] 91.1 fL 80-94 [facility] Hematocrit Auto (Bld) [Volum e fraction]Ordered By: Dr. Alonzo on 10-10-2022 Hematocrit (Bld) [Volume fraction] 40.7 % 40-54 [facility] Laboratory - Chemistry and C hemistry - challengeOrdered By: Dr. Alonzo on 10-10-2022 ALP [Catalytic activity/Vol] 106 U/L 45-117 [facility] ALT [Catalytic activity/Vol] 18 U/L 16-61 [facility] CO2 [Moles/Vol] 22.0 mmol/L 21.0-32.0 [facility] Globulin (S) [Mass/Vol] 2.8 g/dL 2.2-4.2 [facility] Urea nitrogen/Creatinine [Mass ratio] 12.9 mg/mg 10-20 [facility] Laboratory - Hematology and Cell countsOrdered By: Dr. Alonzo on 10-10-2022 Erythrocyte distribution width (RBC) [Entitic vol] 47.3 fL 35.1-43.9 [facility] Erythrocyte distribution width (RBC) [Ratio] 14.0 % 11.6-14.6 [facility] Immature granulocytes/100 WBC (Bld) 0.200 % 0.0-0.9 [facility] Comment on above: IG% - Immature Granu locytes (promyelocytes, myelocytes and metamyelocytes) > 1% indicates that a LEFT SHIFT is Present. MCH (RBC) [Entitic mass] 30.6 pg 27.0-32.0 [facility] Nucleated RBC/100 WBC (Bld) [Ratio] 0 % 0-5 [facility] MCHC Auto (RBC) [Mass/Vol]Or dered By: Dr. Alonzo on 10-10-2022 MCHC (RBC) [Mass/Vol] 33.7 g/dL 32-36 [facility] No Panel InformationOrdered By: Dr. Alonzo on 10-10-2022 Estimated Creatinine Clearance Calc 49.08 ml/min [facility] Estimated GFR (MDRD) Amer 106 mL/min >60 [facility] Comment on above: GFR Calc Estimated GFR (MDRD) Non-Af Amer 88 mL/min >60 [facility] Comment on above: Non- GFR Calc Platelets bldOrdered By: Dr. Alonzo on 10-10-2022 Platelets (Bld) [#/Vol] 219 10*3/uL 150-450 [facility] Serum or plasma albumin gideon urement (mass/volume)Ordered By: Dr. Alonzo on 10-10-2022 Albumin [Mass/Vol] 3.4 g/dL 3.2-5.0 [facility] Serum or plasma albumin/glob ulin mass ratioOrdered By: Dr. Alonzo on 10-10-2022 Albumin/Globulin [Mass ratio] 1.2 {ratio} 0.9-2.4 [facility] Serum or plasma calcium gideon urement (mass/volume)Ordered By: Dr. Alonzo on 10-10-2022 Calcium [Mass/Vol] 8.2 mg/dL 8.5-10.1 [facility] Serum or plasma creatinine m easurement (mass/volume)Ordered By: Dr. Alonzo on 10-10-2022 Creatinine [Mass/Vol] 0.93 mg/dL 0.70-1.30 [facility] Comment on above: The validity of the calculated GFR & GFRAA in patients over 70 years has not been determined. Clinical correlation is essential. Serum or plasma urea nitroge n measurement (mass/volume)Ordered By: Dr. Alonzo on 10-10-2022 Urea nitrogen [Mass/Vol] 12 mg/dL 7-18 [facility] Thin prep Papanicolaou smear with manual screeningOrdered By: Dr. Alonzo on 10-10-2022 Thin prep Papanicolaou smear with manual screening 18 U/L 15-37 [facility] Comment on above: Slight Hemolysis, Re sult may be falsely increased. Thin prep Papanicolaou smear with manual screening 5 5-15 [facility] Basophil percentageOrdered B y: Dr. Hurst on 10-09-2022 Basophil percentage 0 SEEN /hpf 0-5 [facility] Lactate [Moles/Vol] 1.4 mmol/L 0.4-2.0 [facility] Bilirubin Test strip Ql (U)O rdered By: Dr. Hurst on 10-09-2022 Bilirubin Ql (U) Negative Negative [facility] Blood platelet adequacy dete ction by light microscopyOrdered By: Dr. Hurst on 10-09-2022 Platelets LM Ql (Bld) ADEQUATE ADEQ [facility] COVID-19 virus antigen assay Ordered By: Dr. Alonzo on 10-09-2022 SARS-CoV-2 (COVID-19) Ag IA.rapid Ql (Resp) Not detected Not Detect [facility] Comment on above: Normal Reference Ran ge: Not DetectedMethod:(RT-PCR) real-time reverse transcriptase PCRLuminex SHAWNA Instrument*The Food and Drug Administration (FDA) has issued an Emergency Use Authorization (EAU) for the SHAWNA SARS-CoV-2 Assay for the rapid detection of the virus that causes COVID-19. This test has been validated, but the FDAs independent review of this validation is pending.*Negative results do not preclude infection and should not be used as the sole basis for treatment or patient management. Optimum specimen types and timing for peak viral levels during infections caused by SARS-CoV-2 have not been determined. Collection of multiple specimens from the same patient may be necessary to detect the virus. The possibility of a false negative result should be considered if the patient has clinical presentation or has had recent exposure. Ketones Test strip Ql (U)Ord ered By: Dr. Hurst on 10-09-2022 Ketones Ql (U) 5 mg/dl Negative [facility] Laboratory - Chemistry and C hemistry - challengeOrdered By: Dr. Hurst on 10-09-2022 Lipase [Catalytic activity/Vol] 33 U/L 13-75 [facility] Comment on above: Please note:LIPASE r evised reference range effective 22. New Lipase methodology. Expected to produce lower values than the previous assay method. NEW Reference Range: 13 - 75 U/L Laboratory - Hematology and Cell countsOrdered By: Dr. Hurst on 10-09-2022 Anisocytosis Ql (Bld) RARE [facility] Mucus LM Ql (Urine sed)Order ed By: Dr. Hurst on 10-09-2022 Mucus Ql (Urine sed) RARE /hpf [facility] Nitrite Test strip Ql (U)Ord ered By: Dr. Hurst on 10-09-2022 Nitrite Ql (U) Negative Negative [facility] Protein Test strip Ql (U)Ord ered By: Dr. Hurst on 10-09-2022 Protein Ql (U) 15 mg/dl Negative [facility] RBC morphologyOrdered By: Dr Claudia Hurst on 10-09-2022 RBC morphology finding Nom (Bld) N CHROM NORMAL NORM C&C [facility] Squamous epithelial cells de tection in urine sediment by light microscopyOrdered By: Dr. Hurst on 10-09-2022 Epithelial cells.squamous LM Ql (Urine sed) 0 SEEN /hpf 0-5 [facility] Urine blood detectionOrdered By: Dr. Hurst on 10-09-2022 RBC Ql (U) 10 /ul Negative [facility] RBC Ql (U) 0 SEEN /hpf 0-5 [facility] Urine clarityOrdered By: Dr. Hurst on 10-09-2022 Clarity (U) Clear Clear [facility] Urine color determinationOrd ered By: Dr. Hurst on 10-09-2022 Color (U) Yellow Yellow [facility] Urine glucose detectionOrder ed By: Dr. Hurst on 10-09-2022 Glucose Ql (U) Normal mg/dl Normal [facility] Urine leukocyte esterase det ection by dipstickOrdered By: Dr. Hurst on 10-09-2022 Leukocyte esterase Test strip Ql (U) 25 /ul Negative [facility] Urine pHOrdered By: Dr. Mary Beth jerry on 10-09-2022 pH (U) 6.0 [pH] 5.0 - 8.0 [facility] Urine sediment bacteria coun t by microscopy (number/high power field)Ordered By: Dr. Hurst on 10-09-2022 Bacteria LM.HPF (Urine sed) [#/Area] 0 /[HPF] None Seen [facility] Urine specific gravity measu rementOrdered By: Dr. Hurst on 10-09-2022 Specific gravity (U) [Rel density] 1.015 1.002-1.03 0 [facility] Urobilinogen Auto test strip Ql (U)Ordered By: Dr. Hurst on 10-09-2022 Urobilinogen Ql (U) Normal mg/dl Normal [facility] Absolute lymphocyte countOrd ered By: Dr. Elliott on 08-28-2022 Lymphocytes Auto (Unsp spec) [#/Vol] 0.72 10*3/uL 0.83-4.51 [facility] Basophil percentageOrdered B y: Dr. Elliott on 08-28-2022 Basophils/100 WBC (Bld) 0.2 % 0-1 [facility] Chloride [Moles/Vol] 101 mmol/L 98-107 [facility] Eosinophils/100 WBC (Bld) 0.0 % 0-5 [facility] Glucose [Mass/Vol] 100 mg/dL 74-106 [facility] Comment on above: Fasting Glucose resu lt from 100 to 125 mg/dL suggests IMPAIRED HOMEOSTASIS per A.D.A. criteria. Neutrophils (Bld) [#/Vol] 9.9 10*3/uL 2.0-7.7 [facility] Neutrophils/100 WBC (Bld) 82.5 % 47-70 [facility] Potassium [Moles/Vol] 3.9 mmol/L 3.5-5.1 [facility] Sodium [Moles/Vol] 134 mmol/L 136-145 [facility] WBC (Bld) [#/Vol] 12.0 10*3/uL 4.4-11.0 [facility] Blood erythrocytes count (nu mber/volume)Ordered By: Dr. Elliott on 08-28-2022 RBC (Bld) [#/Vol] 5.16 10*6/uL 4.6-6.2 [facility] Blood hemoglobin measurement (mass/volume)Ordered By: Dr. Elliott on 08-28-2022 Hemoglobin (Bld) [Mass/Vol] 15.7 g/dL 13.0-16.5 [facility] Blood lymphocytes/100 leukoc ytesOrdered By: Dr. Elliott on 08-28-2022 Lymphocytes/100 WBC (Bld) 6.0 % 19-41 [facility] Blood monocytes/100 leukocyt esOrdered By: Dr. Elliott on 08-28-2022 Monocytes/100 WBC (Bld) 10.9 % 0-10 [facility] Blood platelet mean volumeOr dered By: Dr. Elliott on 08-28-2022 Platelet mean volume (Bld) [Entitic vol] 12.9 fL 6.2-12.0 [facility] Determination of erythrocyte mean corpuscular volume (MCV)Ordered By: Dr. Elliott on 08-28-2022 MCV (RBC) [Entitic vol] 86.2 fL 80-94 [facility] Hematocrit Auto (Bld) [Volum e fraction]Ordered By: Dr. Elliott on 08-28-2022 Hematocrit (Bld) [Volume fraction] 44.5 % 40-54 [facility] Laboratory - Chemistry and C hemistry - challengeOrdered By: Dr. Elliott on 08-28-2022 CO2 [Moles/Vol] 26.0 mmol/L 21.0-32.0 [facility] Urea nitrogen/Creatinine [Mass ratio] 11.5 mg/mg 10-20 [facility] Laboratory - Hematology and Cell countsOrdered By: Dr. Elliott on 08-28-2022 Erythrocyte distribution width (RBC) [Entitic vol] 41.0 fL 35.1-43.9 [facility] Erythrocyte distribution width (RBC) [Ratio] 13.0 % 11.6-14.6 [facility] Immature granulocytes/100 WBC (Bld) 0.400 % 0.0-0.9 [facility] Comment on above: IG% - Immature Granu locytes (promyelocytes, myelocytes and metamyelocytes) > 1% indicates that a LEFT SHIFT is Present. MCH (RBC) [Entitic mass] 30.4 pg 27.0-32.0 [facility] Nucleated RBC/100 WBC (Bld) [Ratio] 0 % 0-5 [facility] MCHC Auto (RBC) [Mass/Vol]Or dered By: Dr. Elliott on 08-28-2022 MCHC (RBC) [Mass/Vol] 35.3 g/dL 32-36 [facility] No Panel InformationOrdered By: Dr. Elliott on 08-28-2022 Estimated Creatinine Clearance Calc 64.95 ml/min [facility] Estimated GFR (MDRD) Amer 115 mL/min >60 [facility] Comment on above: GFR Calc Estimated GFR (MDRD) Non-Af Amer 95 mL/min >60 [facility] Comment on above: Non- GFR Calc Platelets bldOrdered By: Dr. Elliott on 08-28-2022 Platelets (Bld) [#/Vol] 130 10*3/uL 150-450 [facility] Serum or plasma calcium gideon urement (mass/volume)Ordered By: Dr. Elliott on 08-28-2022 Calcium [Mass/Vol] 8.8 mg/dL 8.5-10.1 [facility] Serum or plasma creatinine m easurement (mass/volume)Ordered By: Dr. Elliott on 08-28-2022 Creatinine [Mass/Vol] 0.87 mg/dL 0.70-1.30 [facility] Comment on above: The validity of the calculated GFR & GFRAA in patients over 70 years has not been determined. Clinical correlation is essential. Serum or plasma urea nitroge n measurement (mass/volume)Ordered By: Dr. Elliott on 08-28-2022 Urea nitrogen [Mass/Vol] 10 mg/dL 7-18 [facility] Thin prep Papanicolaou smear with manual screeningOrdered By: Dr. Elliott on 08-28-2022 Thin prep Papanicolaou smear with manual screening 7 5-15 [facility] Basophil percentageOrdered B y: Dr. Yarbrough on 08-25-2022 Basophil percentage 2.3 mg/dL 2.5-4.9 [facility] Bilirubin [Mass/Vol] 0.30 mg/dL 0.20-1.00 [facility] Comment on above: For patients on eltr ombopag therapy, use of Dimension [employer]iggins TBIL is not recommended. Protein [Mass/Vol] 5.3 g/dL 6.4-8.2 [facility] Laboratory - Chemistry and C hemistry - challengeOrdered By: Dr. Yarbrough on 08-25-2022 ALP [Catalytic activity/Vol] 92 U/L 45-117 [facility] ALT [Catalytic activity/Vol] 19 U/L 16-61 [facility] Globulin (S) [Mass/Vol] 2.5 g/dL 2.2-4.2 [facility] Magnesium [Mass/Vol] 1.9 mg/dL 1.6-2.6 [facility] Serum or plasma albumin gideon urement (mass/volume)Ordered By: Dr. Yarbrough on 08-25-2022 Albumin [Mass/Vol] 2.8 g/dL 3.2-5.0 [facility] Serum or plasma albumin/glob ulin mass ratioOrdered By: Dr. Yarbrough on 08-25-2022 Albumin/Globulin [Mass ratio] 1.1 {ratio} 0.9-2.4 [facility] Thin prep Papanicolaou smear with manual screeningOrdered By: Dr. Yarbrough on 08-25-2022 Thin prep Papanicolaou smear with manual screening 30 U/L 15-37 [facility] Basophil percentageOrdered B y: Dr. Parker on 08-24-2022 Lactate [Moles/Vol] 1.6 mmol/L 0.4-2.0 [facility] Basophil percentageOrdered B y: Dr. Yarbrough on 08-24-2022 Amylase [Catalytic activity/Vol] 33 U/L 25-115 [facility] Blood manual differential co mment interpretation (narrative result)Ordered By: Dr. Parker on 08-24-2022 Manual differential comment Gabriel (Bld) [Interp] SCANNED [facility] Direct bilirubinOrdered By: Dr. Parker on 08-24-2022 Bilirubin.direct [Mass/Vol] 0.13 mg/dL 0.00-0.30 [facility] Laboratory - Chemistry and C hemistry - challengeOrdered By: Dr. Parker on 08-24-2022 Lipase [Catalytic activity/Vol] 74 U/L 73-393 [facility] Absolute lymphocyte countOrd ered By: Dr. Hernandez on 07-20-2022 Lymphocytes Auto (Unsp spec) [#/Vol] 1.30 10*3/uL 0.83-4.51 [facility] Basophil percentageOrdered B y: Dr. Hernandez on 07-20-2022 Basophil percentage 0 SEEN /hpf 0-5 [facility] Basophils/100 WBC (Bld) 0.5 % 0-1 [facility] Bilirubin [Mass/Vol] 0.60 mg/dL 0.20-1.00 [facility] Comment on above: For patients on eltr ombopag therapy, use of Dimension [employer] TBIL is not recommended. Chloride [Moles/Vol] 104 mmol/L 98-107 [facility] Eosinophils/100 WBC (Bld) 0.1 % 0-5 [facility] Glucose [Mass/Vol] 93 mg/dL 74-106 [facility] Lactate [Moles/Vol] 1.8 mmol/L 0.4-2.0 [facility] Neutrophils (Bld) [#/Vol] 15.5 10*3/uL 2.0-7.7 [facility] Neutrophils/100 WBC (Bld) 83.5 % 47-70 [facility] Potassium [Moles/Vol] 3.9 mmol/L 3.5-5.1 [facility] Protein [Mass/Vol] 7.9 g/dL 6.4-8.2 [facility] Sodium [Moles/Vol] 136 mmol/L 136-145 [facility] WBC (Bld) [#/Vol] 18.5 10*3/uL 4.4-11.0 [facility] Bilirubin Test strip Ql (U)O rdered By: Dr. Hernandez on 07-20-2022 Bilirubin Ql (U) Negative Negative [facility] Blood erythrocytes count (nu mber/volume)Ordered By: Dr. Hernandez on 07-20-2022 RBC (Bld) [#/Vol] 5.39 10*6/uL 4.6-6.2 [facility] Blood hemoglobin measurement (mass/volume)Ordered By: Dr. Hernandez on 07-20-2022 Hemoglobin (Bld) [Mass/Vol] 16.4 g/dL 13.0-16.5 [facility] Blood lymphocytes/100 leukoc ytesOrdered By: Dr. Hernandez on 07-20-2022 Lymphocytes/100 WBC (Bld) 7.0 % 19-41 [facility] Blood manual differential co mment interpretation (narrative result)Ordered By: Dr. Hernandez on 07-20-2022 Manual differential comment Gabriel (Bld) [Interp] See comment [facility] Comment on above: AUTO DIFF [place] Blood monocytes/100 leukocyt esOrdered By: Dr. Hernandez on 07-20-2022 Monocytes/100 WBC (Bld) 8.3 % 0-10 [facility] Blood platelet mean volumeOr dered By: Dr. Hernandez on 07-20-2022 Platelet mean volume (Bld) [Entitic vol] 13.1 fL 6.2-12.0 [facility] Determination of erythrocyte mean corpuscular volume (MCV)Ordered By: Dr. Hernandez on 07-20-2022 MCV (RBC) [Entitic vol] 88.5 fL 80-94 [facility] Direct bilirubinOrdered By: Dr. Hernandez on 07-20-2022 Bilirubin.direct [Mass/Vol] 0.17 mg/dL 0.00-0.30 [facility] Hematocrit Auto (Bld) [Volum e fraction]Ordered By: Dr. Hernandez on 07-20-2022 Hematocrit (Bld) [Volume fraction] 47.7 % 40-54 [facility] INR in Blood by Coagulation assayOrdered By: Dr. Hernandez on 07-20-2022 INR Coag (Bld) [Relative time] 1.1 {INR} [facility] Ketones Test strip Ql (U)Ord ered By: Dr. Hernandez on 07-20-2022 Ketones Ql (U) 50 mg/dl Negative [facility] Laboratory - Chemistry and C hemistry - challengeOrdered By: Dr. Hernandez on 07-20-2022 ALP [Catalytic activity/Vol] 152 U/L 45-117 [facility] ALT [Catalytic activity/Vol] 19 U/L 16-61 [facility] CO2 [Moles/Vol] 22.0 mmol/L 21.0-32.0 [facility] Globulin (S) [Mass/Vol] 3.7 g/dL 2.2-4.2 [facility] Lipase [Catalytic activity/Vol] 53 U/L 73-393 [facility] Urea nitrogen/Creatinine [Mass ratio] 12.8 mg/mg 10-20 [facility] Laboratory - CoagulationOrde red By: Dr. Hernandez on 07-20-2022 aPTT Coag (Bld) [Time] 33.0 s 24.1-36.2 [facility] PT Coag (PPP) [Time] 14.0 s 11.7-14.9 [facility] Laboratory - Hematology and Cell countsOrdered By: Dr. Hernandez on 07-20-2022 Erythrocyte distribution width (RBC) [Entitic vol] 43.3 fL 35.1-43.9 [facility] Erythrocyte distribution width (RBC) [Ratio] 13.4 % 11.6-14.6 [facility] Immature granulocytes/100 WBC (Bld) 0.600 % 0.0-0.9 [facility] Comment on above: IG% - Immature Granu locytes (promyelocytes, myelocytes and metamyelocytes) > 1% indicates that a LEFT SHIFT is Present. MCH (RBC) [Entitic mass] 30.4 pg 27.0-32.0 [facility] Nucleated RBC/100 WBC (Bld) [Ratio] 0 % 0-5 [facility] MCHC Auto (RBC) [Mass/Vol]Or dered By: Dr. Hernandez on 07-20-2022 MCHC (RBC) [Mass/Vol] 34.4 g/dL 32-36 [facility] Mucus LM Ql (Urine sed)Order ed By: Dr. Hernandez on 07-20-2022 Mucus Ql (Urine sed) 0 SEEN /hpf [facility] Nitrite Test strip Ql (U)Ord ered By: Dr. Hernandez on 07-20-2022 Nitrite Ql (U) Negative Negative [facility] No Panel InformationOrdered By: Dr. Hernandez on 07-20-2022 Estimated Creatinine Clearance Calc 48.07 ml/min [facility] Estimated GFR (MDRD) Amer 81 mL/min >60 [facility] Comment on above: GFR Calc Estimated GFR (MDRD) Non-Af Amer 67 mL/min >60 [facility] Comment on above: Non- GFR Calc Platelets bldOrdered By: Dr. Hernandez on 07-20-2022 Platelets (Bld) [#/Vol] 221 10*3/uL 150-450 [facility] Protein Test strip Ql (U)Ord ered By: Dr. Hernandez on 07-20-2022 Protein Ql (U) 15 mg/dl Negative [facility] Serum or plasma albumin gideon urement (mass/volume)Ordered By: Dr. Hernandez on 07-20-2022 Albumin [Mass/Vol] 4.2 g/dL 3.2-5.0 [facility] Serum or plasma calcium gideon urement (mass/volume)Ordered By: Dr. Hernandez on 07-20-2022 Calcium [Mass/Vol] 9.7 mg/dL 8.5-10.1 [facility] Serum or plasma creatinine m easurement (mass/volume)Ordered By: Dr. Hernandez on 07-20-2022 Creatinine [Mass/Vol] 1.17 mg/dL 0.70-1.30 [facility] Comment on above: The validity of the calculated GFR & GFRAA in patients over 70 years has not been determined. Clinical correlation is essential. Serum or plasma urea nitroge n measurement (mass/volume)Ordered By: Dr. Hernandez on 07-20-2022 Urea nitrogen [Mass/Vol] 15 mg/dL 7-18 [facility] Squamous epithelial cells de tection in urine sediment by light microscopyOrdered By: Dr. Hernandez on 07-20-2022 Epithelial cells.squamous LM Ql (Urine sed) 0 SEEN /hpf 0-5 [facility] Thin prep Papanicolaou smear with manual screeningOrdered By: Dr. Hernandez on 07-20-2022 Thin prep Papanicolaou smear with manual screening 21 U/L 15-37 [facility] Thin prep Papanicolaou smear with manual screening 10 5-15 [facility] Urine blood detectionOrdered By: Dr. Hernandez on 07-20-2022 RBC Ql (U) 25 /ul Negative [facility] RBC Ql (U) 0 SEEN /hpf 0-5 [facility] Urine clarityOrdered By: Dr. Hernandez on 07-20-2022 Clarity (U) Clear Clear [facility] Urine color determinationOrd ered By: Dr. Hernandez on 07-20-2022 Color (U) Yellow Yellow [facility] Urine glucose detectionOrder ed By: Dr. Hernandez on 07-20-2022 Glucose Ql (U) Normal mg/dl Normal [facility] Urine leukocyte esterase det ection by dipstickOrdered By: Dr. Hernandez on 07-20-2022 Leukocyte esterase Test strip Ql (U) Negative Negative [facility] Urine pHOrdered By: Dr. Chelsey carnes on 07-20-2022 pH (U) 5.0 [pH] 5.0 - 8.0 [facility] Urine sediment bacteria coun t by microscopy (number/high power field)Ordered By: Dr. Hernandez on 07-20-2022 Bacteria LM.HPF (Urine sed) [#/Area] 0 /[HPF] None Seen [facility] Urine specific gravity measu rementOrdered By: Dr. Hernandez on 07-20-2022 Specific gravity (U) [Rel density] 1.015 1.002-1.03 0 [facility] Urobilinogen Auto test strip Ql (U)Ordered By: Dr. Hernandez on 07-20-2022 Urobilinogen Ql (U) Normal mg/dl Normal [facility] Laboratory - Chemistry and C hemistry - challengeon 04-26-2022 Albumin [Mass/Vol] 4.5 g/dL Normal 3.9 - 4.9 g/dL [facility] ALP [Catalytic activity/Vol] 106 U/L Normal 38 - 113 U/L [facility], [facility] ALT [Catalytic activity/Vol] 13 U/L Normal 10 - 54 U/L [facility], [facility].; [facility] Anion gap [Moles/Vol] 11 mmol/L Normal 9 - 18 mmol/L [facility].; [facility]. AST [Catalytic activity/Vol] 18 U/L Normal 14 - 40 U/L [facility].; [facility]. Bilirubin [Mass/Vol] 0.3 mg/dL Normal 0.2 - 1 .3 mg/dL [facility].; [facility], [facility]. Calcium [Mass/Vol] 9.9 mg/dL Normal 8.5 - 10. 2 mg/dL [facility].; [facility]. Chloride [Moles/Vol] 103 mmol/L Normal 97 - 10 5 mmol/L [facility].; [facility]. Cholesterol [Mass/Vol] 146 mg/dL Normal 0 - 2 40 mg/dL [facility].; [facility], [facility]. Cholesterol in HDL [Mass or moles/Vol] 55 mg/dL Normal 40 - 60 mg/dL [facility]; [facility], [facility]. Cholesterol in LDL [Mass/Vol] 68 mg/dL Normal 0 - 129 mg/dL [facility].; [facility], [facility] Cholesterol.total/Choles terol in HDL [Mass ratio] 2.7 {ratio} Normal 0.0 - 5.0 [facility]; [facility], [facility]. CO2 [Moles/Vol] 25 mmol/L Normal 22 - 30 mmol/L [facility].; [facility], [facility] Creatinine [Mass/Vol] 1.10 mg/dL Normal 0.73 - 1.22 mg/dL [facility].; [facility], [facility]. Glucose [Mass/Vol] 76 mg/dL Normal 74 - 99 mg/dL [facility].; [facility], [facility] Lipid 1996 panel LIPID PROFILE Normal [facility]; [facility], [facility] Potassium [Moles/Vol] 4.3 mmol/L Normal 3.7 - 5.1 mmol/L [facility].; [facility], [facility] Prostate specific Ag [Mass/Vol] 0.48 ng/mL Normal 0.00 - 4.00 ng/mL [facility].; [employer] Protein [Mass/Vol] 6.9 g/dL Normal 6.3 - 8.0 g/dL [facility] [employer] [facility].; [employer]. Sodium [Moles/Vol] 139 mmol/L Normal 136 - 144 mmol/L [facility].; [employer] Triglyceride [Mass/Vol] 115 mg/dL Normal 0 - 150 mg/dL [employer] [facility].; [employer] TSH Qn 1.95 m[IU]/L Normal 0.34 - 5.60 {uIU/ml} [employer] [facility].; [employer] Urea nitrogen [Mass/Vol] 16 mg/dL Normal 9 - 24 mg/dL [employer] [facility].; [employer] No Panel Informationon 04-26 Estimated GlomerularFiltration Rate 76 {mL/min/1.ters_s} Normal [employer] [facility] [employer]. Albumin Elph [Mass/Vol]Order ed By: Kory Medina on 04-22-2022 Albumin [Mass/Vol] 4.2 g/dL 2.9-4.4 [facility] Aldolase ser/plasOrdered By: Kory Medina on 04-22-2022 Aldolase [Catalytic activity/Vol] 4.1 mU/mL 3.3-10.3 [facility] Comment on above: Performed at: [address] [id number] Director: Alexis Holguin PhD, Phone: [phone] at: [facility] [address]co[address] [id number] Director: Carlos Milton MD, Phone: [phone] Atypical perinuclear antineu trophil cytoplasmic antibodies measurementOrdered By: Kory Medina on 04-22-2022 Neutrophil cytoplasmic Ab.perinuclear.atypical IF (S) [Titer] <1:20 titer Neg:<1:20 [facility] Comment on above: The atypical pANCA p attern has been observed in asignificant percentage of patients with ulcerative colitis,primary sclerosing cholangitis and autoimmune hepatitis. Basophil percentageOrdered B y: Kory Medina on 04-22-2022 Basophil percentage < 0.2 AI 0.0-0.9 [facility] Bilirubin [Mass/Vol] 0.20 mg/dL 0.20-1.00 [facility] Comment on above: For patients on eltr ombopag therapy, use of Dimension Wiggins TBIL is not recommended. Chloride [Moles/Vol] 103 mmol/L 98-107 [facility] Glucose [Mass/Vol] 87 mg/dL 74-106 [facility] Potassium [Moles/Vol] 3.7 mmol/L 3.5-5.1 [facility] Protein [Mass/Vol] 7.6 g/dL 6.4-8.2 [facility] Sodium [Moles/Vol] 137 mmol/L 136-145 [facility] Erythrocyte sedimentation ra teOrdered By: Kory Medina on 04-22-2022 ESR (Bld) [Velocity] 5 mm/h 0-20 [facility] INR in Blood by Coagulation assayOrdered By: Kory Medina on 04-22-2022 INR Coag (Bld) [Relative time] 1.1 {INR} [facility] Interpretation of serum or p lasma protein pattern by immunofixation (narrative resultOrdered By: Kory Medina on 04-22-2022 Protein Fractions Immunofixation Gabriel [Interp] See comment [facility] Comment on above: Result: Not Observed Laboratory - Chemistry and C hemistry - challengeOrdered By: Kory Medina on 04-22-2022 ALP [Catalytic activity/Vol] 122 U/L 45-117 [facility] ALT [Catalytic activity/Vol] 21 U/L 16-61 [facility] CK [Catalytic activity/Vol] 84 U/L 39-308 [facility] CO2 [Moles/Vol] 28.0 mmol/L 21.0-32.0 [facility] Free T4 [Mass/Vol] 1.02 ng/dL 0.76-1.46 [facility] Urea nitrogen/Creatinine [Mass ratio] 10.4 mg/mg 10- [facility] Laboratory - Chemistry and C hemistry - challengeon 04-22-2022 Globulin (S) [Mass/Vol] 3.5 g/dL 2.2-4.2 [facility] Work Phone: Laboratory - CoagulationOrde red By: Kory Medina on 04-22-2022 PT Coag (PPP) [Time] 13.4 s 11.7-14.9 [facility] No Panel InformationOrdered By: Kory Medina on 04-22-2022 Addendum Document Comment . [facility] Comment on above: Protein electrophore sis scan will follow via computer,mail, or conveyor belt operator delivery. C-Peptide 1.9 ng/mL 1.1-4.4 [facility] Comment on above: C-Peptide reference interval is for fasting patients. Centromere B Antibody <0.2 AI 0.0-0.9 [facility] Estimated GFR (MDRD) Amer 83 mL/min >60 [facility] Comment on above: GFR Calc Estimated GFR (MDRD) Non-Af Amer 69 mL/min >60 [facility] Comment on above: Non- GFR Calc Free Triiodothyronine (T3) pg/dL 3.8 pg/mL 2.18-3.98 [facility] Immunoglobulin E 34 IU/mL 6-495 [facility] [employer] Antibody <0.2 AI 0.0-0.9 [facility] Thyroid Stimulating Hormone (TSH) 5.25 uIU/mL 0.358-3.74 [facility] Serum DNA double strand anti body assay (units/volume)Ordered By: Kory Medina on 04-22-2022 DNA double strand Ab Qn (S) [IU]/mL 0-9 [facility] Comment on above: Negative <5 Equivoca l 5 - 9 Positive >9 Serum Patricia-1 antibody assay (u nits/volume)Ordered By: Kory Medina on 04-22-2022 Patricia-1 extractable nuclear Ab Qn (S) <0.2 AI 0.0-0.9 [facility] Serum Scl-70 extractable nuc lear antibody assay (units/volume)Ordered By: Kory Medina on 04-22-2022 SCL-70 extractable nuclear Ab Qn (S) <0.2 AI 0.0-0.9 [facility] Serum Bhatia extractable nucl ear antibody detectionOrdered By: Kory Medina on 04-22-2022 Bhatia extractable nuclear Ab Ql (S) <0.2 AI 0.0-0.9 [facility] Serum [id number] measu rement by electrophoresisOrdered By: Kory Medina on 04-22-2022 Alpha 1 globulin Elph [Mass/Vol] 0.3 g/dL 0.0-0.4 [facility] Alpha 1 globulin Elph [Mass/Vol] 0.9 g/dL 0.4-1.0 [facility] Serum classic neutrophil cyt oplasmic antibody assay (units/volume)Ordered By: Kory Medina on 04-22-2022 Neutrophil cytoplasmic Ab.classic Qn (S) <1:20 titer Neg:<1:20 [facility] Serum globulin measurement ( mass/volume)Ordered By: Kory Medina on 04-22-2022 Globulin (S) [Mass/Vol] 3.2 g/dL 2.2-3.9 [facility] Serum or plasma C reactive p rotein measurement (mass/volume)Ordered By: Kory Medina on 04-22-2022 CRP [Mass/Vol] mg/L 0.0-3.0 [facility] Comment on above: C-Reactive Protein ( CRP) provides useful information for thediagnosis, therapy and monitoring of inflammatory processesand associated diseases. For the evaluation of Relative Riskfor Cardiovascular Disease, a High Sensitivity CRP (HSCRP)should be ordered. Serum or plasma IgA measurem ent (mass/volume)Ordered By: Kory Medina on 04-22-2022 IgA [Mass/Vol] 173 mg/dL 61-437 [facility] Serum or plasma IgG measurem ent (mass/volume)Ordered By: Kory Medina on 04-22-2022 IgG [Mass/Vol] 914 mg/dL 603-1613 [facility] Serum or plasma IgM measurem ent (mass/volume)Ordered By: Kory Medina 04-22-2022 IgM [Mass/Vol] 95 mg/dL 20-172 [facility] Serum or plasma albumin gideon urement (mass/volume)Ordered By: Kory Medina on 04-22-2022 Albumin [Mass/Vol] 4.1 g/dL 3.2-5.0 [facility] Serum or plasma albumin/glob ulin mass ratioOrdered By: Kory Medina on 04-22-2022 Albumin/Globulin [Mass ratio] 1.2 {ratio} 0.9-2.4 [facility] Serum or plasma beta globuli n measurement by electrophoresis (mass/volume)Ordered By: Kory Medina on 04-22-2022 Beta globulin Elph [Mass/Vol] 1.1 g/dL 0.7-1.3 [facility] Serum or plasma calcium gideon urement (mass/volume)Ordered By: Kory Medina on 04-22-2022 Calcium [Mass/Vol] 9.0 mg/dL 8.5-10.1 [facility] Serum or plasma creatinine m easurement (mass/volume)Ordered By: Kory Medina on 04-22-2022 Creatinine [Mass/Vol] 1.15 mg/dL 0.70-1.30 [facility] Comment on above: The validity of the calculated GFR & GFRAA in patients over 70 years has not been determined. Clinical correlation is essential. Serum or plasma gamma globul in measurement by electrophoresis (mass/volume)Ordered By: Kory Medina on 04-22-2022 Gamma globulin Elph [Mass/Vol] 1.0 g/dL 0.4-1.8 [facility] Serum or plasma immunoelectr ophoresis interpretation (nominal result)Ordered By: Kory Medina on 04-22-2022 Interpretation IEP [Interp] Comment . [facility] Comment on above: No monoclonality det ected. Serum or plasma urea nitroge n measurement (mass/volume)Ordered By: Kory Medina on 04-22-2022 Urea nitrogen [Mass/Vol] 12 mg/dL 7-18 [facility] Serum perinuclear neutrophil cytoplasmic antibody titer by immunofluorescenceOrdered By: Kory Medina on 04-22-2022 Neutrophil cytoplasmic Ab.perinuclear IF (S) [Titer] <1:20 titer Neg:<1:20 [facility] Comment on above: The presence of posi tive fluorescence exhibiting P-ANCA orC-ANCA patterns alone is not specific for the diagnosis ofWegener's Granulomatosis (WG) or microscopic polyangiitis.Decisions about treatment should not be based solely onANCA IFA results. The International ANCA Group Consensusrecommends follow up testing of positive sera with both CT-3 and MPO-ANCA enzyme immunoassays. As many as 5% serumsamples are positive only by EIA. Ref. AM J Clin Qpierr5306;111:507-513. Thin prep Papanicolaou smear with manual screeningOrdered By: Kory Medina on 04-22-2022 Thin prep Papanicolaou smear with manual screening 18 U/L 15-37 [facility] Thin prep Papanicolaou smear with manual screening 6 5-15 [facility] Thin prep Papanicolaou smear with manual screening 153 U/L 87-241 [facility] Thin prep Papanicolaou smear with manual screening 1.4 0.7-1.7 [facility] Thin prep Papanicolaou smear with manual screening 95 ug/dL 69-132 [facility] Comment on above: Detection Limit = 5 Total protein bloodOrdered B y: Kory Medina on 04-22-2022 Protein [Mass/Vol] 7.4 g/dL 6.0-8.5 [facility] XR Cervical and thoracic and lumbar spine Viewson 03-01-2022 IMPRESSION: Intact spinal cord stimulator as described. OLOGY EXAM: XR STIMULATOR/INTRATHECAL PUMP CERVICAL/THORACIC/LUMBAR 7 VIEWS , 03/01/2022 10:36 AM COMPARISON: February 01, 2022 CLINICAL INDICATIONS: eval s/p SCS implant RELEVANT CLINICAL HISTORY: FINDINGS: 7 images were obtained. A spinal cord stimulator is visualized. The pulse generator is noted in the posterior subcutaneous soft tissues on the left at the level of the lumbar region. Lead wires are entering the spinal canal in the mid thoracic region with the distal lead wires visualized in the upper cervical spine at the level of C2. The pulse generator and lead wires are intact. Hardware is again noted from a prior anterior fusion of C4-C5 and C6-7. Dental amalgams are identified. Degenerative changes are noted in the spine. There are surgical clips in the right upper quadrant. A stent is visualized to the left of L1-L2. RADIOLOGY Leonela Casper MD - 03/01/2022 EXAM: XR STIMULATOR/INTRATHECAL PUMP CERVICAL/THORACIC/LUMBAR 7 VIEWS , 03/01/2022 10:36 AM COMPARISON: February 01, 2022 CLINICAL INDICATIONS: eval s/p SCS implant RELEVANT CLINICAL HISTORY: FINDINGS: 7 images were obtained. A spinal cord stimulator is visualized. The pulse generator is noted in the posterior subcutaneous soft tissues on the left at the level of the lumbar region. Lead wires are entering the spinal canal in the mid thoracic region with the distal lead wires visualized in the upper cervical spine at the level of C2. The pulse generator and lead wires are intact. Hardware is again noted from a prior anterior fusion of C4-C5 and C6-7. Dental amalgams are identified. Degenerative changes are noted in the spine. There are surgical clips in the right upper quadrant. A stent is visualized to the left of L1-L2. IMPRESSION IMPRESSION: Intact spinal cord stimulator as described. [facility] Radiology Study observation (narrative) [facility] XR Cervical and thoracic and lumbar spine ViewsOrdered By: Leonela Casper on 03-01-2022 [facility] Work Phone: XR STIMULATOR/INTRATHECAL PU MP CERVICAL/THORACIC/LUMBARon 03-01-2022 XR STIMULATOR/INTRATHECAL PUMP CERVICAL/THORACIC/LUMBAR EXAM: XR STIMULATOR/INTRATHECAL PUMP CERVICAL/THORACIC/LUMBAR 7 VIEWS , 03/01/2022 10:36 AM COMPARISON: February 01, 2022 CLINICAL INDICATIONS: eval s/p SCS implant RELEVANT CLINICAL HISTORY: FINDINGS: 7 images were obtained. A spinal cord stimulator is visualized. The pulse generator is noted in the posterior subcutaneous soft tissues on the left at the level of the lumbar region. Lead wires are entering the spinal canal in the mid thoracic region with the distal lead wires visualized in the upper cervical spine at the level of C2. The pulse generator and lead wires are intact. Hardware is again noted from a prior anterior fusion of C4-C5 and C6-7. Dental amalgams are identified. Degenerative changes are noted in the spine. There are surgical clips in the right upper quadrant. A stent is visualized to the left of L1-L2. IMPRESSION: Intact spinal cord stimulator as described. Normal [facility] 24 hour urine 5-hydroxyindol eacetate measurement (mass/volume)on 02-07-2022 5-Hydroxyindoleacetate (24H U) [Mass/Vol] See comment [facility] Work Phone: Comment on above: TEST RESULT LIMITS5- HIAA,Quant.,24 Hr Urine5-HIAA, Urine B, 3.9 mg/L Undefined5-HIAA, Urine, 24hr 4.4 mg/24 hr 0.0-14.9 ____ TESTING PERFORMED AT [facility]. ORIGINAL REPORT ON FILE IN LAB CONTAINS ADDITIONAL TEST SITE INFORMATION. 24 hour urine 5-hydroxyindol eacetic acid (5-HIAA) measurement (mass/time)on 02-07-2022 5-Hydroxyindoleacetate (24H U) [Mass/Time] Not Reportable [facility] Work Phone: 24 hour urine porphobilinoge n measurement (mass/time)on 02-07-2022 Porphobilinogen (24H U) [Mass/Time] See comment [facility] Work Phone: Comment on above: TEST RESULT LIMITSPo rphobilinogen, Qn, 24-Hr UPorphobilinogen,Qn,U A, 9.0 High mg/L 0.0-2.0Results verified by repeat testingPorphobilinogen, 24U 10.2 High mg/24 hr 0.0-1.5 ___ TESTING PERFORMED AT [facility]. ORIGINAL REPORT ON FILE IN LAB CONTAINS ADDITIONAL TEST SITE INFORMATION. No Panel Informationon 02-07 Stool Calprotectin 35 ug/g 0-120 [facility] Work Phone: Comment on above: Concentration Interp retation Follow-Up<16 - 50 ug/g Normal None>50 -120 ug/g Borderline Re-evaluate in 4-6 weeks >120 ug/g Abnormal Repeat as clinically indicatedPerformed at: [facility] [address] [id number] Director: Carlos Milton MD, Phone: [phone] Stool Pancreatic Elastase See comment [facility] Work Phone: Comment on above: TEST RESULT LIMITSPa ncreatic Elastase, FecalPancreatic Elastase, Fecal 292 ug Elast./g >200 Severe Pancreatic Insufficiency: <100 Moderate Pancreatic Insufficiency: 100 - 200 Normal: >200 TESTING PERFORMED AT [facility]. ORIGINAL REPORT ON FILE IN LAB CONTAINS ADDITIONAL TEST SITE INFORMATION. ABORH TYPE RECONFIRMATIONon 02-01-2022 ABO/RH(D) TYPE Positive Normal [facility] Comment on above: Performed By: #### T YPEC #### [facility] (DEFAULT) [address] [place] [address] ABO/RH(D) TYPE Positive [facility] GLUCOSE POCon 02-01-2022 Glucose [Mass/Vol] 95 mg/dL 70 - 99 mg/dL [facility] POC Sample Type CAPBL [facility] Test performed at ad dress of the patient encounter. [facility] XR Cervical and thoracic and lumbar spine Viewson 02-01-2022 IMPRESSION: Intact spinal cord stimulator with the lead wires terminating in the upper cervical region. OLOGY EXAM: XR STIMULATOR/INTRATHECAL PUMP CERVICAL/THORACIC/LUMBAR 5 VIEWS , 02/01/2022 11:34 AM COMPARISON: No prior studies available for comparison. CLINICAL INDICATIONS: S/P TRIAL SCS; EVAL LEADS RELEVANT CLINICAL HISTORY: Please obtain following discharge from OR prior to returning to PACU;;PATIENT DOES NOT NEED TO WAIT FOR RESULTS; FINDINGS: 5 images were obtained. A spinal cord stimulator is visualized. The pulse generator is overlying the posterior soft tissues at the level of the lumbar spine. The lead wires are coursing along the posterior subcutaneous soft tissues entering the spinal canal in the mid thoracic region. The distal lead wires are visualized in the cervical spine at the level of C3. The pulse generator and visualized lead wires are intact. There is hardware from a prior anterior fusion of C4-C5 and C6-C7. Degenerative changes are noted in the spine. There are stents in the left upper quadrant medially. The bowel gas pattern is nonobstructive. RADIOLOGY Leonela Casper MD - 02/01/2022 EXAM: XR STIMULATOR/INTRATHECAL PUMP CERVICAL/THORACIC/LUMBAR 5 VIEWS , 02/01/2022 11:34 AM COMPARISON: No prior studies available for comparison. CLINICAL INDICATIONS: S/P TRIAL SCS; EVAL LEADS RELEVANT CLINICAL HISTORY: Please obtain following discharge from OR prior to returning to PACU;;PATIENT DOES NOT NEED TO WAIT FOR RESULTS; FINDINGS: 5 images were obtained. A spinal cord stimulator is visualized. The pulse generator is overlying the posterior soft tissues at the level of the lumbar spine. The lead wires are coursing along the posterior subcutaneous soft tissues entering the spinal canal in the mid thoracic region. The distal lead wires are visualized in the cervical spine at the level of C3. The pulse generator and visualized lead wires are intact. There is hardware from a prior anterior fusion of C4-C5 and C6-C7. Degenerative changes are noted in the spine. There are stents in the left upper quadrant medially. The bowel gas pattern is nonobstructive. IMPRESSION IMPRESSION: Intact spinal cord stimulator with the lead wires terminating in the upper cervical region. [facility] Radiology Study observation (narrative) [facility] XR Cervical and thoracic and lumbar spine ViewsOrdered By: Leonela Casper on 02-01-2022 [facility] Work Phone: XR STIMULATOR/INTRATHECAL PU MP CERVICAL/THORACIC/LUMBARon 02-01-2022 XR STIMULATOR/INTRATHECAL PUMP CERVICAL/THORACIC/LUMBAR EXAM: XR STIMULATOR/INTRATHECAL PUMP CERVICAL/THORACIC/LUMBAR 5 VIEWS , 02/01/2022 11:34 AM COMPARISON: No prior studies available for comparison. CLINICAL INDICATIONS: S/P TRIAL SCS; EVAL LEADS RELEVANT CLINICAL HISTORY: Please obtain following discharge from OR prior to returning to PACU;;PATIENT DOES NOT NEED TO WAIT FOR RESULTS; FINDINGS: 5 images were obtained. A spinal cord stimulator is visualized. The pulse generator is overlying the posterior soft tissues at the level of the lumbar spine. The lead wires are coursing along the posterior subcutaneous soft tissues entering the spinal canal in the mid thoracic region. The distal lead wires are visualized in the cervical spine at the level of C3. The pulse generator and visualized lead wires are intact. There is hardware from a prior anterior fusion of C4-C5 and C6-C7. Degenerative changes are noted in the spine. There are stents in the left upper quadrant medially. The bowel gas pattern is nonobstructive. IMPRESSION: Intact spinal cord stimulator with the lead wires terminating in the upper cervical region. Normal [facility] SPINE THORACIC WITHOUT CONTRAST EXAM: MRI SPINE THORACIC WITHOUT CONTRAST, 01/15/2022 08:50 AM COMPARISON: No prior studies available for comparison. CLINICAL INDICATIONS: 61 years Male eval for contraindications for SCS therapy; RELEVANT CLINICAL HISTORY: M54.2:Cervicalgia G89.4:Chronic pain syndrome TECHNIQUE: A series of sagittal and axial multisequence images of the thoracic spine were obtained without intravenous contrast using standard protocol. FINDINGS: 7 cervical, 12 thoracic and 5 lumbar type vertebrae identified Mild focal kyphosis is noted centered at T6-T7. Vertebral bodies are within normal limits in height and marrow signal. Paraspinal soft tissues are within normal limits. Small central disc protrusion is noted at T6-T7 level indenting the ventral aspect of the cord without causing spinal stenosis Small disc protrusions are noted at T8-T9 and T9-T10 levels without any evidence of spinal stenosis or neural foramina narrowing. No significant thoracic canal stenosis or cord compression. Thoracic cord is within normal limits in caliber and signal. IMPRESSION: Minor degenerative changes in the thoracic spine. A focal disc herniation at T6-T7 level indents the ventral aspect of the cord at this level without causing any spinal stenosis. Partially visualized are changes of prior anterior fusion in the lower cervical spine. Normal [facility] Albumin Elph [Mass/Vol]on Albumin [Mass/Vol] 3.9 g/dL 2.9-4.4 [facility] Work Phone: Atypical perinuclear antineu trophil cytoplasmic antibodies measurementon 01-17-2022 Neutrophil cytoplasmic Ab.perinuclear.atypical IF (S) [Titer] <1:20 titer Neg:<1:20 [facility] Work Phone: Comment on above: The atypical pANCA p attern has been observed in asignificant percentage of patients with ulcerative colitis,primary sclerosing cholangitis and autoimmune hepatitis. Basophil percentageon 2021 Amylase [Catalytic activity/Vol] 45 U/L 25-115 [facility] Work Phone: Basophil percentage < 0.2 AI 0.0-0.9 [facility] Work Phone: Interpretation of serum or p lasma protein pattern by immunofixation (narrative resulton 01-17-2022 Protein Fractions Immunofixation Gabriel [Interp] See comment [facility] Work Phone: Comment on above: NOT OBSERVED Laboratory - Chemistry and C hemistry - challengeon 01-17-2022 Lipase [Catalytic activity/Vol] 182 U/L 73-393 [facility] Work Phone: No Panel Informationon 01-17 Addendum Document Comment . [facility] Work Phone: Comment on above: Protein electrophore sis scan will follow via computer,mail, or conveyor belt operator delivery. Centromere B Antibody <0.2 AI 0.0-0.9 [facility] Work Phone: Endomysial IgA Antibody Negative Negative [facility] Work Phone: Immunoglobulin E 37 IU/mL 6-495 [facility] Work Phone: Miscellaneous Test See comment [facility] Work Phone: Comment on above: TEST RESULT LIMITSCh romogranin A, 194.2 High ng/mL 0.0-101.8Chromogranin A performed by [employer] methodologyValues obtained with different assay methods or kits cannot be used interchangeably. TESTING PERFORMED AT [facility]. ORIGINAL REPORT ON FILE IN LAB CONTAINS ADDITIONAL TEST SITE INFORMATION. [employer] Antibody <0.2 AI 0.0-0.9 [facility] Work Phone: Serum DNA double strand anti body assay (units/volume)on 01-17-2022 DNA double strand Ab Qn (S) [IU]/mL 0-9 [facility] Work Phone: Comment on above: Negative <5 Equivoca l 5 - 9 Positive >9 Serum Patricia-1 antibody assay (u nits/volume)on 01-17-2022 Patricia-1 extractable nuclear Ab Qn (S) <0.2 AI 0.0-0.9 [facility] Work Phone: Serum Scl-70 extractable nuc lear antibody assay (units/volume)on 01-17-2022 SCL-70 extractable nuclear Ab Qn (S) <0.2 AI 0.0-0.9 [facility] Work Phone: Serum Bhatia extractable nucl ear antibody detectionon 01-17-2022 Bhatia extractable nuclear Ab Ql (S) <0.2 AI 0.0-0.9 [facility] Work Phone: Serum [id number] measu rement by electrophoresison 01-17-2022 Alpha 1 globulin Elph [Mass/Vol] 0.3 g/dL 0.0-0.4 [facility] Work Phone: Alpha 1 globulin Elph [Mass/Vol] 0.8 g/dL 0.4-1.0 [facility] Work Phone: Serum classic neutrophil cyt oplasmic antibody assay (units/volume)on 01-17-2022 Neutrophil cytoplasmic Ab.classic Qn (S) <1:20 titer Neg:<1:20 [facility] Work Phone: Serum globulin measurement ( mass/volume)on 01-17-2022 Globulin (S) [Mass/Vol] 2.9 g/dL 2.2-3.9 [facility] Work Phone: Serum or plasma IgA measurem ent (mass/volume)on 01-17-2022 IgA [Mass/Vol] 151 mg/dL 90-386 [facility] Work Phone: Serum or plasma IgG measurem ent (mass/volume)on 01-17-2022 IgG [Mass/Vol] 787 mg/dL 603-1613 [facility] Work Phone: Serum or plasma IgM measurem ent (mass/volume)on 01-17-2022 IgM [Mass/Vol] 78 mg/dL 20-172 [facility] Work Phone: Serum or plasma beta globuli n measurement by electrophoresis (mass/volume)on 01-17-2022 Beta globulin Elph [Mass/Vol] 0.9 g/dL 0.7-1.3 [facility] Work Phone: Serum or plasma gamma globul in measurement by electrophoresis (mass/volume)on 01-17-2022 Gamma globulin Elph [Mass/Vol] 0.9 g/dL 0.4-1.8 [facility] Work Phone: Serum or plasma gastrin gideon urement (mass/volume)on 01-17-2022 Gastrin [Mass/Vol] 67 pg/mL 0-115 [facility] Work Phone: Comment on above: Siemens Immulite 200 0 Immunochemiluminometric assay (ICMA)Values obtained with different assay methods or kits cannotbe used interchangeably. Results cannot be interpreted asabsolute evidence of the presence or absence of malignantdisease.Performed at: [address] [id number] Director: Alexis Holguin PhD, Phone: [phone] at: [facility] [address] [id number] Director: Carlos Milton MD, Phone: [phone] Serum or plasma immunoelectr ophoresis interpretation (nominal result)on 01-17-2022 Interpretation IEP [Interp] Comment . [facility] Work Phone: Comment on above: No monoclonality det ected. Serum perinuclear neutrophil cytoplasmic antibody titer by immunofluorescenceon 01-17-2022 Neutrophil cytoplasmic Ab.perinuclear IF (S) [Titer] <1:20 titer Neg:<1:20 [facility] Work Phone: Comment on above: The presence of posi tive fluorescence exhibiting P-ANCA orC-ANCA patterns alone is not specific for the diagnosis ofWegener's Granulomatosis (WG) or microscopic polyangiitis.Decisions about treatment should not be based solely onANCA IFA results. The [employer] Consensusrecommends follow up testing of positive sera with both CT-3 and MPO-ANCA enzyme immunoassays. As many as 5% serumsamples are positive only by EIA. Ref. AM J Clin Sedmjp0048;111:507-513. Serum tissue transglutaminas e IgA antibody assay (units/volume)on 01-17-2022 tTG IgA Qn (S) <2 U/mL 0-3 [facility] Work Phone: Comment on above: Negative 0 - 3 Weak Positive 4 - 10 Positive >10 Tissue Transglutaminase (tTG) has been identified as the endomysial antigen. Studies have demonstr- ated that endomysial IgA antibodies have over 99% specificity for gluten sensitive enteropathy. Thin prep Papanicolaou smear with manual screeningon 01-17-2022 Thin prep Papanicolaou smear with manual screening 146 U/L 87-241 [facility] Work Phone: Thin prep Papanicolaou smear with manual screening 1.4 0.7-1.7 [facility] Work Phone: Total protein bloodon 2021 Protein [Mass/Vol] 6.8 g/dL 6.0-8.5 [facility] Work Phone: CBC AND ELECTRONIC DIFFon Basophils (Bld) [#/Vol] 0.06 10*3/uL Normal 0.00-0.09 [facility] Comment on above: Performed By: #### L [id number] #### [facility] (DEFAULT) [address] [place] [address]1973 Basophils/100 WBC (Bld) 0.9 % Normal [facility] Comment on above: Performed By: #### L [id number] #### [facility] (DEFAULT) [address] [place] [address] 01269 DIFF STATUS Electronic Differential Normal [facility] Comment on above: Performed By: #### L [id number] #### [facility] (DEFAULT) [address] [place] [address] 76667 Eosinophils (Bld) [#/Vol] 0.08 10*3/uL Normal 0.00-0.48 [facility] Comment on above: Performed By: #### L [id number] #### [facility] (DEFAULT) [address] [place] [address] 80218 Eosinophils/100 WBC (Bld) 1.2 % Normal [facility] Comment on above: Performed By: #### L [id number] #### [facility] (DEFAULT) [address] [place] [address] 57568 Hematocrit (Bld) [Volume fraction] 46.7 % Normal 39.6-48.8 [facility] Comment on above: Performed By: #### L [id number] #### [facility] (DEFAULT) [address] [place] [address] 91745 Hemoglobin (Bld) [Mass/Vol] 15.6 g/dL Normal 13.4-16.8 [facility] Comment on above: Performed By: #### L [id number] #### [facility] (DEFAULT) [address] [place] [address] 84939 Immature Grans % 0.4 % Normal [facility] Comment on above: Performed By: #### L [id number] #### [facility] (DEFAULT) [address] [place] [address] 19271 Immature Grans Absolute <0.04 Normal <=0.07 [facility] Comment on above: Performed By: #### L [id number] #### [facility] (DEFAULT) [address] [place] [address] 25452 Lymphocytes (Bld) [#/Vol] 1.40 10*3/uL Normal 0.83-3.57 [facility] Comment on above: Performed By: #### L [id number] #### [facility] (DEFAULT) [address] [place] [address] 49393 Lymphocytes/100 WBC (Bld) 20.6 % Normal [facility] Comment on above: Performed By: #### L [id number] #### [facility] (DEFAULT) [address] [address] MCV (RBC) [Entitic vol] 89.6 fL Normal 79.0-94.5 [facility] Comment on above: Performed By: #### L [id number] #### [facility] (DEFAULT) [address] [address] Mean Cell Hgb 29.9 pg Normal 26.1-33.3 [facility] Comment on above: Performed By: #### L [id number] #### [facility] (DEFAULT) [address] [address] Mean Cell Hgb Conc 33.4 g/dL Normal 31.9-36.5 [facility] Comment on above: Performed By: #### L [id number] #### [facility] (DEFAULT) [address] [address] Monocytes (Bld) [#/Vol] 0.64 10*3/uL Normal 0.24-0.93 [facility] Comment on above: Performed By: #### L [id number] #### [facility] (DEFAULT) [address] [address] Monocytes/100 WBC (Bld) 9.4 % Normal [facility] Comment on above: Performed By: #### L [id number] #### [facility] (DEFAULT) [address] [address] Nucleated RBC 0.0 /100 WBC Normal <=0.2 [facility] Comment on above: Performed By: #### L [id number] #### [facility] (DEFAULT) [address] [address] Platelet mean volume (Bld) [Entitic vol] 12.3 fL Normal 8.7-12.3 [facility] Comment on above: Performed By: #### L [id number] #### [facility] (DEFAULT) [address] [place] [address] 49983 Platelets (Bld) [#/Vol] 191 10*3/uL Normal 146-337 [facility] Comment on above: Performed By: #### L [id number] #### [facility] (DEFAULT) [address] [place] [address] 16401 RBC (Bld) [#/Vol] 5.21 10*6/uL Normal 4.38-5.83 [facility] Comment on above: Performed By: #### L [id number] #### [facility] (DEFAULT) [address] [place] [address] 70051 RBC Distribution 13.2 % Normal 10.9-14.3 [facility] Comment on above: Performed By: #### L [id number] #### [facility] (DEFAULT) [address] [place] [address] 43967 Segs + Bands Auto 67.5 % Normal [facility] Comment on above: Performed By: #### L [id number] #### [facility] (DEFAULT) [address] [place] [address] Segs + Bands,Absolute Auto 4.58 K/uL Normal 1.57-6.19 [facility] Comment on above: Performed By: #### L [id number] #### [facility] (DEFAULT) [address] [place] [address] 69252 WBC (Bld) [#/Vol] 6.79 10*3/uL Normal 3.73-10.10 [facility] Comment on above: Performed By: #### L [id number] #### [facility] (DEFAULT) [address] [place] [address] 97920 Basophils (Bld) [#/Vol] 0.06 10*3/uL 0.00 - 0.09 K/uL [facility] Basophils/100 WBC (Bld) 0.9 % [facility] Differential cell count method Nom (Bld) Electronic Differential [facility] Eosinophils (Bld) [#/Vol] 0.08 10*3/uL 0.00 - 0.48 K/uL [facility] Eosinophils/100 WBC (Bld) 1.2 % [facility] Erythrocyte distribution width (RBC) [Ratio] 13.2 % 10.9 - 14.3 % [facility] Hematocrit (Bld) [Volume fraction] 46.7 % 39.6 - 48.8 % [facility] Hemoglobin (Bld) [Mass/Vol] 15.6 g/dL 13.4 - 16.8 g/dL [facility] Immature granulocytes (Bld) [#/Vol] 10*3/uL <=0.07 K/uL [facility] Immature granulocytes/100 WBC (Bld) 0.4 % [facility] Lymphocytes (Bld) [#/Vol] 1.40 10*3/uL 0.83 - 3.57 K/uL [facility] Lymphocytes/100 WBC (Bld) 20.6 % [facility] MCH (RBC) [Entitic mass] 29.9 pg 26. 1 - 33.3 pg [facility] MCHC (RBC) [Mass/Vol] 33.4 g/dL 31.9 - 36.5 g/dL [facility] MCV (RBC) [Entitic vol] 89.6 fL 79.0 - 94.5 fL [facility] Monocytes (Bld) [#/Vol] 0.64 10*3/uL 0.24 - 0.93 K/uL [facility] Monocytes/100 WBC (Bld) 9.4 % [facility] Neutrophils (Bld) [#/Vol] 4.58 10*3/uL 1.57 - 6.19 K/uL [facility] Nucleated RBC/100 WBC (Bld) [Ratio] 0.0 % <=0.2 /100 WBC [facility] Platelet mean volume (Bld) [Entitic vol] 12.3 fL 8.7 - 12.3 fL [facility] Platelets (Bld) [#/Vol] 191 10*3/uL 146 - 337 K/uL [facility] RBC (Bld) [#/Vol] 5.21 10*6/uL [facility] Segmented neutrophils/100 WBC (Bld) 67.5 % [facility] WBC (Bld) [#/Vol] 6.79 10*3/uL 3.73 - 10.10 K/uL [facility] CHEM 6 (LYTES, BUN CREA)on 0 01-15-2022 Anion gap [Moles/Vol] 12 mmol/L Normal 7-17 [facility] Comment on above: Performed By: #### C HM6 #### [facility] (DEFAULT) [address] [place] [address] 04650 Chloride [Moles/Vol] 102 mmol/L Normal 98-108 [facility] Comment on above: Performed By: #### C HM6 #### [facility] (DEFAULT) [address] [place] [address] 02928 CO2 [Moles/Vol] 27 mmol/L Normal 21-31 [facility] Comment on above: Performed By: #### C HM6 #### [facility] (DEFAULT) [address] [place] [address] 46291 Creatinine [Mass/Vol] 1.17 mg/dL Normal 0.70-1.30 [facility] Comment on above: Performed By: #### C HM6 #### [facility] (DEFAULT) [address] [place] [address] 42329 GFR/1.73 sq M.predicted among non-blacks MDRD (S/P/Bld) [Vol rate/Area] 71 mL/min/{1.73_m2} Normal >=60 [facility] Comment on above: Result Comment: Repo rted eGFR is based on the CKD-EPI 2020 equation using creatinine, age, and sex. Performed By: #### C HM6 #### [facility] (DEFAULT) [address] [place] [address] 20632 Potassium [Moles/Vol] 4.2 mmol/L Normal 3.5-5.0 [facility] Comment on above: Performed By: #### C HM6 #### [facility] (DEFAULT) [address] [place] [address] Sodium [Moles/Vol] 137 mmol/L Normal 135-145 [facility] Comment on above: Performed By: #### C HM6 #### [facility] (DEFAULT) [address] [place] [address] Urea nitrogen [Mass/Vol] 12 mg/dL Normal 7-25 [facility] Comment on above: Performed By: #### C HM6 #### [facility] (DEFAULT) [address] [place] [address] Urea nitrogen/Creatinine [Mass ratio] 10 mg/mg Normal [facility] Comment on above: Performed By: #### C HM6 #### [facility] (DEFAULT) [address] [place] [address] 39477 Anion gap [Moles/Vol] 12 mmol/L 7 - 17 mmol/L [facility] Chloride [Moles/Vol] 102 mmol/L 98 - 10 8 mmol/L [facility] CO2 [Moles/Vol] 27 mmol/L 21 - 31 mmol/L [facility] Creatinine [Mass/Vol] 1.17 mg/dL 0.70 - 1.30 mg/dL [facility] GFR/1.73 sq M.predicted CKD-EPI (S/P/Bld) [Vol rate/Area] 71 >=60 mL/min/1.7 3m2 [facility] Comment on above: Reported eGFR is bas ed on the CKD-EPI 2020 equation using creatinine, age, and sex. Potassium [Moles/Vol] 4.2 mmol/L 3.5 - 5.0 mmol/L [facility] Sodium [Moles/Vol] 137 mmol/L 135 - 145 mmol/L [facility] Urea nitrogen [Mass/Vol] 12 mg/dL 7 - 25 mg/dL [facility] Urea nitrogen/Creatinine [Mass ratio] 10 mg/mg [facility] EXTRA LIGHT BLUE TOP DOUBLE SPINon 01-15-2022 Dummy LRR - Route to Double Spin Received [facility] NICOTINE SCREEN URINEOrdered By: Alexandrea Lopez on 01-15-2022 Cotinine (U) [Mass/Vol] Positive Abnormal Cuto ff: 500 ng/mL [facility] Interpretation and review of laboratory results Abnormal [facility] NICOTINE SCREEN URINEon 12-22 Nicotine (Cotinine) Positive Abnormal Cutoff: 500 ng/mL [facility] Comment on above: Performed By: #### N ICOTU #### [facility] (DEFAULT) [address] [place] [address] 46107 PT,INR,PTTon 01-15-2022 aPTT Coag (Bld) [Time] 33.5 s Normal 24.0-34.3 [facility] Comment on above: Performed By: #### P TPTT, [id number] #### [facility] (DEFAULT) [address] [place] [address] 73599 INR Coag (PPP) [Relative time] 1.0 {INR} Normal 0.9-1.1 [facility] Comment on above: Performed By: #### P TPTT, [id number] #### [facility] (DEFAULT) [address] [place] [address] 11250 PT Coag (PPP) [Time] 13.4 s Normal 11.9-14.2 [facility] Comment on above: Performed By: #### P TPTT, [id number] #### [facility] (DEFAULT) [address] [place] [address] 35890 aPTT Coag (PPP) [Time] 33.5 s [facility] INR Coag (Bld) [Relative time] 1.0 {INR} [facility] Interpretation and review of laboratory results Normal [facility] PT Coag (PPP) [Time] 13.4 s [facility] PTT W/MIXING STUDY PERF ONLY on 01-15-2022 PTT Mixing Study With Normal Plasma Not Indicated Normal [facility] Comment on above: Performed By: #### P TPTT, [id number] #### [facility] (DEFAULT) [address] [place] [address]206 PTT W/MIXING STUDY PERF ONLY Ordered By: Loren Bangura on 01-15-2022 aPTT Coag (PPP) [Time] 33.5 s [facility] PTT Mixing Study With Normal Plasma Not Indicated [facility] SCREEN: MRSA/MSSAon 01-16-20 22 Methicillin Resistant S. Aureus By Pcr Negative Normal Negative [facility] Comment on above: Order Comment: This test was performed using a real time PCR assay. Results should be interpreted in conjunction with other clinical and laboratory findings. A positive result does not necessarily indicate the presence of viable organism. This test should not be used as a test of cure. For E-swab specimens, this test was developed and its performance characteristics determined by the Clinical Microbiology Laboratory at [facility]. It has not been cleared or approved by the FDA.The laboratory is regulated under CLIA as qualified to perform high-complexity testing. This test is used for clinical purposes. It should not be regarded as investigational or for research. Performed By: #### S CRSB #### [facility] (DEFAULT) [address] [address] Staphylococcus Aureus By Pcr Negative Normal Negative [facility] Comment on above: Order Comment: This test was performed using a real time PCR assay. Results should be interpreted in conjunction with other clinical and laboratory findings. A positive result does not necessarily indicate the presence of viable organism. This test should not be used as a test of cure. For E-swab specimens, this test was developed and its performance characteristics determined by the Clinical Microbiology Laboratory at [facility]. It has not been cleared or approved by the FDA.The laboratory is regulated under CLIA as qualified to perform high-complexity testing. This test is used for clinical purposes. It should not be regarded as investigational or for research. Performed By: #### S CRSB #### [facility] (DEFAULT) [address] [place] [address] 10124 TYPE AND SCREEN - PREADMISSI ONon 01-15-2022 ABO/RH(D) TYPE Positive [facility] ABO/RH(D) TYPE Positive Normal [facility] Comment on above: Performed By: #### X MPO #### [facility] (DEFAULT) [address] [place] [address] 67592 URINALYSIS REFLEX TO CULTURE PERFORMABLEon 01-15-2022 Appearance (U) Clear Normal Clear [facility] Comment on above: Performed By: #### U [id number] #### [facility] (DEFAULT) [address] [place] [address] 36151 Bacteria ABSENT Normal ABSENT [facility] Comment on above: Performed By: #### U [id number] #### [facility] (DEFAULT) [address] [place] [address] 88449 Blood Urine Trace Abnormal Negative [facility] Comment on above: Performed By: #### U [id number] #### [facility] (DEFAULT) [address] [place] [address] 13264 Color (U) Yellow Normal Yellow [facility] Comment on above: Performed By: #### U [id number] #### [facility] (DEFAULT) [address] [place] [address] 66307 Glucose Ql (U) Negative Normal Negative [facility] Comment on above: Performed By: #### U [id number] #### [facility] (DEFAULT) [address] [place] [address] 95557 Ketones Ql (U) Negative Normal Negative [facility] Comment on above: Performed By: #### U [id number] #### [facility] (DEFAULT) [address] [place] [address] 30357 Leukocyte esterase Test strip Ql (U) Negative Normal Negative [facility] Comment on above: Performed By: #### U [id number] #### [facility] (DEFAULT) [address] [place] [address] 14528 Nitrites Urine Negative Normal Negative [facility] Comment on above: Performed By: #### U [id number] #### [facility] (DEFAULT) [address] [place] [address] 89120 pH (U) 6.5 [pH] Normal 5.0-7.0 [facility] Comment on above: Performed By: #### U [id number] #### [facility] (DEFAULT) [address] [place] [address] 49511 Protein Urine Negative Normal Negative [facility] Comment on above: Performed By: #### U [id number] #### [facility] (DEFAULT) [address] [place] [address] 00351 RBC Urine 0-2 Normal 0-2 [facility] Comment on above: Performed By: #### U [id number] #### [facility] (DEFAULT) [address] [place] [address] 75360 Specific [place] Urine 1.015 Normal 1.001 -1.03 5 [facility] Comment on above: Performed By: #### U [id number] #### [facility] (DEFAULT) [address] [place] [address] 26687 Squamous/Epithelial Cells 0/hpf = 0+ Normal 1/hpf = 1+, 2-5/hpf = 2+, 0/hpf = 0+, ABSENT [facility] Comment on above: Performed By: #### U [id number] #### [facility] (DEFAULT) [address] [place] [address] 72384 Urobilinogen Urine 0.2 E.U./dL Normal 0.2 E.U/dL, 1.0 E.U/dL [facility] Comment on above: Performed By: #### U [id number] #### [facility] (DEFAULT) [address] [address] WBC Urine 0-5 Normal 0-5 [facility] Comment on above: Performed By: #### U [id number] #### [facility] (DEFAULT) [address] [place] [address] URINALYSIS REFLEX TO CULTURE PERFORMABLEOrdered By: Young Urban on 01-15-2022 Appearance (U) [facility] Bacteria LM Ql (Urine sed) ABSENT ABSENT [facility] Color (U) Yellow Yellow [facility] Epithelial cells.squamous LM Ql (Urine sed) 0/hpf = 0+ 1/hpf = 1+, 2-5/hpf = 2+, 0/hpf = 0+, ABSENT [facility] Glucose Test strip (U) [Mass/Vol] Negative Negative [facility] Interpretation and review of laboratory results Abnormal [facility] Ketones (U) [Mass/Vol] Negative Negative [facility] Leukocyte esterase Test strip Ql (U) Negative Negative [facility] Nitrite Ql (U) Negative Negative [facility] pH (U) 6.5 [pH] 5.0 - 7.0 [facility] Protein (U) [Mass/Vol] Negative Negative [facility] RBC (U) [#/Vol] Trace Abnormal Negative [facility] RBC LM.HPF (Urine sed) [#/Area] 0-2 0 - 2 /HPF [facility] Specific gravity (U) [Rel density] 1.015 [facility] Urobilinogen (U) [Mass/Vol] 0.2 E.U./dL 0.2 E.U/dL, 1.0 E.U/dL [facility] WBC LM.HPF (Urine sed) [#/Area] 0-5 0 - 5 /HPF [facility] XR CHEST PA AND LATERALon XR CHEST PA AND LATERAL EXAM: XR CHEST P A AND LATERAL, 01/15/2022 12:16 PM CLINICAL INDICATIONS: preop RELEVANT CLINICAL HISTORY: Z01.818:Preop exam for internal medicine K55.9:Mesenteric ischemia K26.9:Duodenal ulcer F17.200:Current smoker E78.2:Mixed hyperlipidemia M54.2:Cervicalgia COMPARISON: Chest CT October 19, 2014. No prior chest radiograph. FINDINGS: Anterior fusion hardware bridging the cervicothoracic junction. Bilateral apical pleural parenchymal scarring, similar to what was seen on the CT scan. Otherwise clear lungs. Normal heart size. No pulmonary edema. Mild degenerative change in the thoracic spine. IMPRESSION: Apical scarring, similar to 2015. No new opacities. Normal [facility] XR Chest PA and Lateralon IMPRESSION: Apical scarring, similar to 2015. No new opacities. OLOGY EXAM: XR CHEST PA AN D LATERAL, 01/15/2022 12:16 PM CLINICAL INDICATIONS: preop RELEVANT CLINICAL HISTORY: Z01.818:Preop exam for internal medicine K55.9:Mesenteric ischemia K26.9:Duodenal ulcer F17.200:Current smoker E78.2:Mixed hyperlipidemia M54.2:Cervicalgia COMPARISON: Chest CT October 19, 2014. No prior chest radiograph. FINDINGS: Anterior fusion hardware bridging the cervicothoracic junction. Bilateral apical pleural parenchymal scarring, similar to what was seen on the CT scan. Otherwise clear lungs. Normal heart size. No pulmonary edema. Mild degenerative change in the thoracic spine. RADIOLOGY Anand Samuel M D, PhD - 01/15/2022 EXAM: XR CHEST PA AND LATERAL, 01/15/2022 12:16 PM CLINICAL INDICATIONS: preop RELEVANT CLINICAL HISTORY: Z01.818:Preop exam for internal medicine K55.9:Mesenteric ischemia K26.9:Duodenal ulcer F17.200:Current smoker E78.2:Mixed hyperlipidemia M54.2:Cervicalgia COMPARISON: Chest CT October 19, 2014. No prior chest radiograph. FINDINGS: Anterior fusion hardware bridging the cervicothoracic junction. Bilateral apical pleural parenchymal scarring, similar to what was seen on the CT scan. Otherwise clear lungs. Normal heart size. No pulmonary edema. Mild degenerative change in the thoracic spine. IMPRESSION IMPRESSION: Apical scarring, similar to 2015. No new opacities. [facility] Radiology Study observation (narrative) [facility] XR Chest PA and LateralOrder ed By: Anand Samuel on 01-15-2022 [facility] Work Phone: XR SPINE SCOLIOSIS 2/3 VIEWS on 10-15-2021 XR SPINE SCOLIOSIS 2/3 VIEWS EXAM: XR SPINE SCOLIOSIS 2/3 VIEWS, 10/15/2021 13:51 PM COMPARISON: No prior studies available for comparison. CLINICAL INDICATIONS: scoli eval RELEVANT CLINICAL HISTORY: M48.02:Spinal stenosis of cervical region 3 ft standing, calibration sphere; FINDINGS: 8 images obtained. There are 12 rib-bearing thoracic vertebral bodies and 5 lumbar vertebral bodies. There are multilevel degenerative changes throughout the thoracic and lumbar spine. There is anterior fusions at C4-5 and C5-6. There are multilevel degenerative changes with facet disease in the cervical spine. No significant curvature within the thoracic or lumbar spine. There is a minimal left-sided superior pelvic tilt measuring 5 mm IMPRESSION: No significant curvature of the thoracic or lumbar spine Minimal left-sided superior pelvic tilt Normal [facility] XR Thoracic and lumbar spine Views for scoliosison 10-15-2021 IMPRESSION: No significant curvature of the thoracic or lumbar spine Minimal left-sided superior pelvic tilt OLOGY EXAM: XR SPINE SCOLI OSIS 2/3 VIEWS, 10/15/2021 13:51 PM COMPARISON: No prior studies available for comparison. CLINICAL INDICATIONS: scoli eval RELEVANT CLINICAL HISTORY: M48.02:Spinal stenosis of cervical region 3 ft standing, calibration sphere; FINDINGS: 8 images obtained. There are 12 rib-bearing thoracic vertebral bodies and 5 lumbar vertebral bodies. There are multilevel degenerative changes throughout the thoracic and lumbar spine. There is anterior fusions at C4-5 and C5-6. There are multilevel degenerative changes with facet disease in the cervical spine. No significant curvature within the thoracic or lumbar spine. There is a minimal left-sided superior pelvic tilt measuring 5 mm RADIOLOGY Fely Darnell D O - 10/15/2021 EXAM: XR SPINE SCOLIOSIS 2/3 VIEWS, 10/15/2021 13:51 PM COMPARISON: No prior studies available for comparison. CLINICAL INDICATIONS: scoli eval RELEVANT CLINICAL HISTORY: M48.02:Spinal stenosis of cervical region 3 ft standing, calibration sphere; FINDINGS: 8 images obtained. There are 12 rib-bearing thoracic vertebral bodies and 5 lumbar vertebral bodies. There are multilevel degenerative changes throughout the thoracic and lumbar spine. There is anterior fusions at C4-5 and C5-6. There are multilevel degenerative changes with facet disease in the cervical spine. No significant curvature within the thoracic or lumbar spine. There is a minimal left-sided superior pelvic tilt measuring 5 mm IMPRESSION IMPRESSION: No significant curvature of the thoracic or lumbar spine Minimal left-sided superior pelvic tilt [facility] Radiology Study observation (narrative) [facility] XR Thoracic and lumbar spine Views for scoliosisOrdered By: Fely Darnell on 10-15-2021 [facility]: Absolute lymphocyte counton 09-19-2021 Lymphocytes Auto (Unsp spec) [#/Vol] 1.59 10*3/uL 0.83-4.51 [facility] Work Phone: [phone] Basophil percentageon 2021 Basophils/100 WBC (Bld) 0.3 % 0-1 [facility] Work Phone: Chloride [Moles/Vol] 105 mmol/L 98-107 [facility] Work Phone: Eosinophils/100 WBC (Bld) 0.1 % 0-5 [facility] Work Phone: Glucose [Mass/Vol] 97 mg/dL 74-106 [facility] Work Phone: Neutrophils (Bld) [#/Vol] 7.2 10*3/uL 2.0-7.7 [facility] Work Phone: [phone] Neutrophils/100 WBC (Bld) 76.5 % 47-70 [facility] Work Phone: [phone] Potassium [Moles/Vol] 3.7 mmol/L 3.5-5.1 [facility] Work Phone: Sodium [Moles/Vol] 138 mmol/L 136-145 [facility] Work Phone: WBC (Bld) [#/Vol] 9.4 10*3/uL 4.4-11.0 [facility] Work Phone: Blood erythrocytes count (nu mber/volume)on 09-19-2021 RBC (Bld) [#/Vol] 4.87 10*6/uL 4.6-6.2 [facility] Work Phone: Blood hemoglobin measurement (mass/volume)on 09-19-2021 Hemoglobin (Bld) [Mass/Vol] 15.1 g/dL 13.0-16.5 [facility] Work Phone: Blood lymphocytes/100 leukoc yteson 09-19-2021 Lymphocytes/100 WBC (Bld) 16.9 % 19-41 [facility] Work Phone: Blood manual differential co mment interpretation (narrative result)on 09-19-2021 Manual differential comment Gabriel (Bld) [Interp] SCANNED [facility] Work Phone: Blood monocytes/100 leukocyt eson 09-19-2021 Monocytes/100 WBC (Bld) 5.8 % 0-10 [facility] Work Phone: Blood platelet adequacy dete ction by light microscopyon 09-19-2021 Platelets LM Ql (Bld) ADEQUATE ADEQ [facility] Work Phone: Blood platelet mean volumeon 09-19-2021 Platelet mean volume (Bld) [Entitic vol] 13.1 fL 6.2-12.0 [facility] Work Phone: Determination of erythrocyte mean corpuscular volume (MCV)on 09-19-2021 MCV (RBC) [Entitic vol] 87.7 fL 80-94 [facility] Work Phone: Hematocrit Auto (Bld) [Volum e fraction]on 09-19-2021 Hematocrit (Bld) [Volume fraction] 42.7 % 40-54 [facility] Work Phone: Laboratory - Chemistry and C hemistry - challengeon 09-19-2021 CO2 [Moles/Vol] 28.0 mmol/L 21.0-32.0 [facility] Work Phone: Urea nitrogen/Creatinine [Mass ratio] 17.5 mg/mg 10-20 [facility] Work Phone: Laboratory - Hematology and Cell countson 09-19-2021 Erythrocyte distribution width (RBC) [Entitic vol] 42.8 fL 35.1-43.9 [facility] Work Phone: Erythrocyte distribution width (RBC) [Ratio] 13.3 % 11.6-14.6 [facility] Work Phone: Immature granulocytes/100 WBC (Bld) 0.400 % 0.0-0.9 [facility] Work Phone: Comment on above: IG% - Immature Granu locytes (promyelocytes, myelocytes and metamyelocytes) > 1% indicates that a LEFT SHIFT is Present. MCH (RBC) [Entitic mass] 31.0 pg 27.0-32.0 [facility] Work Phone: Nucleated RBC/100 WBC (Bld) [Ratio] 0 % 0-5 [facility] Work Phone: MCHC Auto (RBC) [Mass/Vol]on 09-19-2021 MCHC (RBC) [Mass/Vol] 35.4 g/dL 32-36 [facility] Work Phone: No Panel Informationon 09-19 Estimated Creatinine Clearance Calc 60.08 ml/min [facility] Work Phone: Estimated GFR (MDRD) Amer 117 mL/min >60 [facility] Work Phone: Comment on above: GFR Calc Estimated GFR (MDRD) Non-Af Amer 97 mL/min >60 [facility] Work Phone: Comment on above: Non- GFR Calc Platelets bldon 09-19-2021 Platelets (Bld) [#/Vol] 147 10*3/uL 150-450 [facility] Work Phone: Serum or plasma calcium gideon urement (mass/volume)on 09-19-2021 Calcium [Mass/Vol] 8.8 mg/dL 8.5-10.1 [facility] Work Phone: Serum or plasma creatinine m easurement (mass/volume)on 09-19-2021 Creatinine [Mass/Vol] 0.86 mg/dL 0.70-1.30 [facility] Work Phone: Comment on above: The validity of the calculated GFR & GFRAA in patients over 70 years has not been determined. Clinical correlation is essential. Serum or plasma urea nitroge n measurement (mass/volume)on 09-19-2021 Urea nitrogen [Mass/Vol] 15 mg/dL 7-18 [facility] Work Phone: Thin prep Papanicolaou smear with manual screeningon 09-19-2021 Thin prep Papanicolaou smear with manual screening 5 5-15 [facility] Work Phone: INR in Blood by Coagulation assayon 09-18-2021 INR Coag (Bld) [Relative time] 1.0 {INR} [facility] Work Phone: Laboratory - Coagulationon 0 09-18-2021 aPTT Coag (Bld) [Time] 28.1 s 24.1-36.2 sol [facility] Work Phone: PT Coag (PPP) [Time] 13.0 s 11.7-14.[address] [facility] Work Phone: No Panel Informationon 09-18 Miscellaneous Test See comment [facility] [facility] Work Phone: Comment on above: TEST RESULT UNITS RE F INTERVALPancreatic Elastase, Fecal 285 ug Elast./g >200 Severe Pancreatic Insufficiency: <100 Moderate Pancreatic Insufficiency: 100 - 200 Normal: >200 Stool Neutral Fats Normal [facility] Work Phone: Comment on above: Normal (<60 Droplets /HPF) Qualitative fecal fat or lip idson 09-18-2021 Fat Ql (Stl) Normal [facility] Work Phone: Comment on above: Normal (<100 Droplet s/HPF)Performed at: [address] [id number] Director: Alexis Holguin PhD, Phone: [phone] Basophil percentageon 2021 Lactate [Moles/Vol] 1.3 mmol/L 0.4-2.0 [facility] Work Phone: Erythrocyte sedimentation ra [place] 09-13-2021 ESR (Bld) [Velocity] mm/h 0-20 [facility] Work Phone: Laboratory - Chemistry and C hemistry - challengeon 09-13-2021 CK [Catalytic activity/Vol] 83 U/L 39-308 [facility] Work Phone: Lipase [Catalytic activity/Vol] 65 U/L 73-393 [facility] Work Phone: Serum or plasma C reactive p rotein measurement (mass/volume)on 09-13-2021 CRP [Mass/Vol] mg/L 0.0-3.0 [facility] Work Phone: Comment on above: C-Reactive Protein ( CRP) provides useful information for thediagnosis, therapy and monitoring of inflammatory processesand associated diseases. For the evaluation of Relative Riskfor Cardiovascular Disease, a High Sensitivity CRP (HSCRP)should be ordered. Absolute lymphocyte counton 09-12-2021 Lymphocytes Auto (Unsp spec) [#/Vol] 2.07 10*3/uL 0.83-4.51 [facility] Work Phone: Basophil percentageon 2021 Basophils/100 WBC (Bld) 0.7 % 0-1 [facility] Work Phone: Bilirubin [Mass/Vol] 0.60 mg/dL 0.20-1.00 [facility] Work Phone: Comment on above: For patients on eltr ombopag therapy, use of Dimension Wiggins TBIL is not recommended. Chloride [Moles/Vol] 101 mmol/L 98-107 [facility] Work Phone: [phone] Eosinophils/100 WBC (Bld) 0.5 % 0-5 [facility] Work Phone: [phone] Glucose [Mass/Vol] 88 mg/dL 74-106 [facility] Work Phone: Neutrophils (Bld) [#/Vol] 9.6 10*3/uL 2.0-7.7 [facility] Work Phone: Neutrophils/100 WBC (Bld) 73.6 % 47-70 [facility] Work Phone: Potassium [Moles/Vol] 4.0 mmol/L 3.5-5.1 [facility] Work Phone: [phone] Protein [Mass/Vol] 7.5 g/dL 6.4-8.2 [facility] Work Phone: Sodium [Moles/Vol] 135 mmol/L 136-145 [facility] Work Phone: [phone] WBC (Bld) [#/Vol] 13.1 10*3/uL 4.4-11.0 [facility] Work Phone: Bilirubin.direct [Mass/Vol]o n 09-12-2021 Bilirubin, Direct [facility] Work Phone: Blood erythrocytes count (nu mber/volume)on 09-12-2021 RBC (Bld) [#/Vol] 5.77 10*6/uL 4.6-6.2 [facility] Work Phone: [phone] Blood hemoglobin measurement (mass/volume)on 09-12-2021 Hemoglobin (Bld) [Mass/Vol] 18.3 g/dL 13.0-16.5 [facility] Work Phone: Blood lymphocytes/100 leukoc yteson 09-12-2021 Lymphocytes/100 WBC (Bld) 15.8 % 19-41 [facility] Work Phone: Blood monocytes/100 leukocyt eson 09-12-2021 Monocytes/100 WBC (Bld) 8.9 % 0-10 [facility] Work Phone: Blood platelet mean volumeon 09-12-2021 Platelet mean volume (Bld) [Entitic vol] 12.4 fL 6.2-12.0 [facility] Work Phone: Comp Metab 2000 Pnl SerPlon 09-12-2021 Comprehensive metabolic 2000 panel [facility] Work Phone: Determination of erythrocyte mean corpuscular volume (MCV)on 09-12-2021 MCV (RBC) [Entitic vol] 84.7 fL 80-94 [facility] Work Phone: Direct bilirubinon 2 Bilirubin.direct [Mass/Vol] 0.15 mg/dL 0.00-0.30 [facility] Work Phone: Hematocrit Auto (Bld) [Volum e fraction]on 09-12-2021 Hematocrit (Bld) [Volume fraction] 48.9 % 40-54 [facility] Work Phone: Laboratory - Chemistry and C hemistry - challengeon 09-12-2021 ALP [Catalytic activity/Vol] 140 U/L 45-117 [facility] Work Phone: ALT [Catalytic activity/Vol] 29 U/L 16-61 [facility] Work Phone: CO2 [Moles/Vol] 23.0 mmol/L 21.0-32.0 [facility] Work Phone: Globulin (S) [Mass/Vol] 3.0 g/dL 2.2-4.2 [facility] Work Phone: Lipase [Catalytic activity/Vol] 71 U/L 73-393 [facility] Work Phone: Urea nitrogen/Creatinine [Mass ratio] 14.7 mg/mg 10-20 [facility] Work Phone: Laboratory - Hematology and Cell countson 09-12-2021 Erythrocyte distribution width (RBC) [Entitic vol] 41.1 fL 35.1-43.9 [facility] Work Phone: Erythrocyte distribution width (RBC) [Ratio] 13.3 % 11.6-14.6 [facility] Work Phone: Immature granulocytes/100 WBC (Bld) 0.500 % 0.0-0.9 [facility] Work Phone: Comment on above: IG% - Immature Granu locytes (promyelocytes, myelocytes and metamyelocytes) > 1% indicates that a LEFT SHIFT is Present. MCH (RBC) [Entitic mass] 31.7 pg 27.0-32.0 [facility] Work Phone: Nucleated RBC/100 WBC (Bld) [Ratio] 0 % 0-5 [facility] Work Phone: MCHC Auto (RBC) [Mass/Vol]on 09-12-2021 MCHC (RBC) [Mass/Vol] 37.4 g/dL 32-36 [facility] Work Phone: No Panel Informationon 09-12 Estimated Creatinine Clearance Calc 62.88 ml/min [facility] Work Phone: Estimated GFR (MDRD) Amer 73 mL/min >60 [facility] Work Phone: Comment on above: GFR Calc Estimated GFR (MDRD) Non-Af Amer 60 mL/min >60 [facility] Work Phone: [phone] Comment on above: Non- GFR Calc Platelets bldon 09-12-2021 Platelets (Bld) [#/Vol] 249 10*3/uL 150-450 [facility] Work Phone: Review by pathologiston 08-22 Pathologist review Gabriel (Unsp spec) [Interp] Reviewed [facility] Work Phone: Comment on above: Previous reported re sult: [place] Edited by: RGOOD on 09/12/21:1330Neutrophilic leukocytosis.Polycythemia Clinical correlation necessary.Naseem Ji M.D. 09/12/21 AMENDED REPORT 09/12/21 1330 PATH REV previously reported as: [place] Serum or plasma albumin gideon urement (mass/volume)on 09-12-2021 Albumin [Mass/Vol] 4.5 g/dL 3.2-5.0 [facility] Work Phone: Serum or plasma albumin/glob ulin mass ratioon 09-12-2021 Albumin/Globulin [Mass ratio] 1.5 {ratio} 0.9-2.4 [facility] Work Phone: Serum or plasma calcium gideon urement (mass/volume)on 09-12-2021 Calcium [Mass/Vol] 9.1 mg/dL 8.5-10.1 [facility] Work Phone: Serum or plasma creatinine m easurement (mass/volume)on 09-12-2021 Creatinine [Mass/Vol] 1.29 mg/dL 0.70-1.30 [facility] Work Phone: Comment on above: The validity of the calculated GFR & GFRAA in patients over 70 years has not been determined. Clinical correlation is essential. Serum or plasma urea nitroge n measurement (mass/volume)on 09-12-2021 Urea nitrogen [Mass/Vol] 19 mg/dL 7-18 [facility] Work Phone: Thin prep Papanicolaou smear with manual screeningon 09-12-2021 Thin prep Papanicolaou smear with manual screening 22 U/L 15-37 [facility] Work Phone: Thin prep Papanicolaou smear with manual screening 11 5-15 [facility] Work Phone: Absolute lymphocyte counton 08-25-2021 Lymphocytes Auto (Unsp spec) [#/Vol] 1.77 10*3/uL 0.83-4.51 [facility] Work Phone: Albumin Elph [Mass/Vol]on Albumin [Mass/Vol] 3.7 g/dL [facility] Work Phone: Atypical perinuclear antineu trophil cytoplasmic antibodies measurementon 08-25-2021 Neutrophil cytoplasmic Ab.perinuclear.atypical IF (S) [Titer] <1:20 titer Neg:<1:20 [facility] Work Phone: Comment on above: The atypical pANCA p attern has been observed in asignificant percentage of patients with ulcerative colitis,primary sclerosing cholangitis and autoimmune hepatitis. Basophil percentageon 2021 Basophil percentage < 0.2 [facility] Work [facility]: Basophils/100 WBC (Bld) 0.7 % 0-1 [facility] Work Phone: Bilirubin [Mass/Vol] 0.30 mg/dL 0.20-1.00 [facility] Work Phone: Comment on above: For patients on eltr ombopag therapy, use of Dimension Wiggins TBIL is not recommended. Chloride [Moles/Vol] 104 mmol/L 98-107 [facility] Work Phone: Eosinophils/100 WBC (Bld) 1.0 % 0-5 [facility] Work Phone: Glucose [Mass/Vol] 116 mg/dL 74-106 [facility] Work Phone: [phone] Comment on above: Fasting Glucose resu lt from 100 to 125 mg/dL suggests IMPAIRED HOMEOSTASIS per A.D.A. criteria. Neutrophils (Bld) [#/Vol] 6.6 10*3/uL 2.0-7.7 [facility] Work Phone: Neutrophils/100 WBC (Bld) 70.2 % 47-70 [facility] Work Phone: Potassium [Moles/Vol] 3.7 mmol/L 3.5-5.1 [facility] Work Phone: Protein [Mass/Vol] 7.5 g/dL 6.4-8.2 [facility] Work Phone: Sodium [Moles/Vol] 138 mmol/L 136-145 [facility] Work Phone: WBC (Bld) [#/Vol] 9.4 10*3/uL 4.4-11.0 [facility] Work Phone: Blood erythrocytes count (nu mber/volume)on 08-25-2021 RBC (Bld) [#/Vol] 5.33 10*6/uL 4.6-6.2 [facility] Work Phone: Blood hemoglobin measurement (mass/volume)on 08-25-2021 Hemoglobin (Bld) [Mass/Vol] 16.7 g/dL 13.0-16.5 [facility] Work Phone: Blood lymphocytes/100 leukoc yteson 08-25-2021 Lymphocytes/100 WBC (Bld) 18.8 % 19-41 [facility] Work Phone: Blood manual differential co mment interpretation (narrative result)on 08-25-2021 Manual differential comment Gabriel (Bld) [Interp] SCANNED [facility] Work Phone: Blood monocytes/100 leukocyt eson 08-25-2021 Monocytes/100 WBC (Bld) 8.9 % 0-10 [facility] Work Phone: Blood platelet mean volumeon 08-25-2021 Platelet mean volume (Bld) [Entitic vol] 12.6 fL 6.2-12.0 [facility] Work Phone: Determination of erythrocyte mean corpuscular volume (MCV)on 08-25-2021 MCV (RBC) [Entitic vol] 88.9 fL 80-94 [facility] Work Phone: Erythrocyte sedimentation ra [place] 08-25-2021 ESR (Bld) [Velocity] 5 mm/h 0-20 [facility] Work Phone: Giardia lamblia ag stool EIA on 08-25-2021 G. lamblia Ag IA Ql (Stl) See comment [facility] Work Phone: Comment on above: TEST RESULT LIMITSGi jose gravesa Ag, EIA Negative Negative ____ TESTING PERFORMED AT [facility]. ORIGINAL REPORT ON FILE IN LAB CONTAINS ADDITIONAL TEST SITE INFORMATION. Hematocrit Auto (Bld) [Volum e fraction]on 08-25-2021 Hematocrit (Bld) [Volume fraction] 47.4 % 40-54 [facility] Work Phone: Interpretation of serum or p lasma protein pattern by immunofixation (narrative resulton 08-25-2021 Protein Fractions Immunofixation Gabriel [Interp] See comment [facility] Work Phone: Comment on above: NOT OBSERVED Laboratory - Chemistry and C hemistry - challengeon 08-25-2021 ALP [Catalytic activity/Vol] 133 U/L 45-117 [facility] Work Phone: ALT [Catalytic activity/Vol] 21 U/L 16-61 [facility] Work Phone: CO2 [Moles/Vol] 28.0 mmol/L 21.0-32.0 [facility] Work Phone: Urea nitrogen/Creatinine [Mass ratio] 11.9 mg/mg 10-20 [facility] Work Phone: Laboratory - Hematology and Cell countson 08-25-2021 Erythrocyte distribution width (RBC) [Entitic vol] 45.1 fL 35.1-43.9 [facility] Work Phone: Erythrocyte distribution width (RBC) [Ratio] 13.7 % 11.6-14.6 [facility] Work Phone: Immature granulocytes/100 WBC (Bld) 0.400 % 0.0-0.9 [facility] Work Phone: Comment on above: IG% - Immature Granu locytes (promyelocytes, myelocytes and metamyelocytes) > 1% indicates that a LEFT SHIFT is Present. MCH (RBC) [Entitic mass] 31.3 pg 27.0-32.0 [facility] Work Phone: Nucleated RBC/100 WBC (Bld) [Ratio] 0 % 0-5 [facility] Work Phone: MCHC Auto (RBC) [Mass/Vol]on 08-25-2021 MCHC (RBC) [Mass/Vol] 35.2 g/dL 32-36 [facility] Work Phone: No Panel Informationon 08-25 Miscellaneous Test See comment [facility] Work Phone: Comment on above: TEST RESULT LIMITSPa ncreatic Elastase, Fecal 251 ug Elast./g >200 Severe Pancreatic Insufficiency: <100 Moderate Pancreatic Insufficiency: 100 - 200 Normal: >200 TESTING PERFORMED AT [facility]. ORIGINAL REPORT ON FILE IN LAB CONTAINS ADDITIONAL TEST SITE INFORMATION. Stool Calprotectin 51 ug/g [facility] Work Phone: Comment on above: Concentration Interp retation Follow-Up<16 - 50 ug/g Normal None>50 -120 ug/g Borderline Re-evaluate in 4-6 weeks >120 ug/g Abnormal Repeat as clinically indicatedPerformed at: [address] [id number] Director: Alexis Holguin PhD, Phone: [phone] at: [address] [id number] Director: Carlos Milton MD, Phone: [phone] Stool Neutral Fats Normal [facility] Work Phone: Comment on above: Normal (<60 Droplets /HPF) Centromere B Antibody <0.2 AI [facility] Work Phone: COMMERCIAL CRABBER Antibody <0.2 AI [facility] Work Phone: Addendum Document Comment [facility] Work Phone: Comment on above: Protein electrophore sis scan will follow via computer,mail, or conveyor belt operator delivery. Endomysial IgA Antibody Negative Negative [facility] Work Phone: Estimated GFR (MDRD) Amer 81 mL/min >60 [facility] Work Phone: Comment on above: GFR Calc Estimated GFR (MDRD) Non-Af Amer 67 mL/min >60 [facility] Work Phone: Comment on above: Non- GFR Calc Immunoglobulin E 25 IU/mL [facility] Work Phone: Comment on above: Performed at: - [address] [id number] Director: Alexis Holguin PhD, Phone: [phone] at: [address] [id number] Director: Carlos Milton MD, Phone: [phone] Enteric Bacteriology [facility] Work Phone: Platelets bldon 08-25-2021 Platelets (Bld) [#/Vol] 196 10*3/uL 150-450 [facility] Work Phone: Qualitative fecal fat or lip idson 08-25-2021 Fat Ql (Stl) Normal [facility] Work Phone: Comment on above: Normal (<100 Droplet s/HPF) Serum DNA double strand anti body assay (units/volume)on 08-25-2021 DNA double strand Ab Qn (S) [IU]/mL [facility] Work Phone: Comment on above: Negative <5 Equivoca l 5 - 9 Positive >9 Serum Patricia-1 antibody assay (u nits/volume)on 08-25-2021 Patricia-1 extractable nuclear Ab Qn (S) <0.2 AI [facility] Work Phone: Serum Scl-70 extractable nuc lear antibody assay (units/volume)on 08-25-2021 SCL-70 extractable nuclear Ab Qn (S) <0.2 AI [facility] Work Phone: Serum Bhatia extractable nucl ear antibody detectionon 08-25-2021 Bhatia extractable nuclear Ab Ql (S) <0.2 AI [facility] Work Phone: Serum cnwhm-7-nyiczhlo measu rement by electrophoresison 08-25-2021 Alpha 1 globulin Elph [Mass/Vol] 0.3 g/dL [facility] Work Phone: Alpha 1 globulin Elph [Mass/Vol] 0.8 g/dL [facility] Work Phone: Serum classic neutrophil cyt oplasmic antibody assay (units/volume)on 08-25-2021 Neutrophil cytoplasmic Ab.classic Qn (S) <1:20 titer Neg:<1:20 [facility] Work Phone: Serum globulin measurement ( mass/volume)on 08-25-2021 Globulin (S) [Mass/Vol] 3.1 g/dL [facility] Work Phone: Serum or plasma C reactive p rotein measurement (mass/volume)on 08-25-2021 CRP [Mass/Vol] mg/L 0.0-3.0 [facility] Work Phone: Comment on above: C-Reactive Protein ( CRP) provides useful information for thediagnosis, therapy and monitoring of inflammatory processesand associated diseases. For the evaluation of Relative Riskfor Cardiovascular Disease, a High Sensitivity CRP (HSCRP)should be ordered. Serum or plasma IgA measurem ent (mass/volume)on 08-25-2021 IgA [Mass/Vol] 158 mg/dL [facility] Work Phone: Serum or plasma IgG measurem ent (mass/volume)on 08-25-2021 IgG [Mass/Vol] 833 mg/dL [facility] Work Phone: Serum or plasma IgM measurem ent (mass/volume)on 08-25-2021 IgM [Mass/Vol] 83 mg/dL [facility] Work Phone: Serum or plasma albumin gideon urement (mass/volume)on 08-25-2021 Albumin [Mass/Vol] 3.9 g/dL 3.2-5.0 [facility] Work Phone: Serum or plasma albumin/glob ulin mass ratioon 08-25-2021 Albumin/Globulin [Mass ratio] 1.1 {ratio} 0.9-2.4 [facility] Work Phone: Serum or plasma beta globuli n measurement by electrophoresis (mass/volume)on 08-25-2021 Beta globulin Elph [Mass/Vol] 1.1 g/dL [facility] Work Phone: Serum or plasma calcium gideon urement (mass/volume)on 08-25-2021 Calcium [Mass/Vol] 9.0 mg/dL 8.5-10.1 [facility] Work Phone: Serum or plasma creatinine m easurement (mass/volume)on 08-25-2021 Creatinine [Mass/Vol] 1.18 mg/dL 0.70-1.30 [facility] Work Phone: Comment on above: The validity of the calculated GFR & GFRAA in patients over 70 years has not been determined. Clinical correlation is essential. Serum or plasma gamma globul in measurement by electrophoresis (mass/volume)on 08-25-2021 Gamma globulin Elph [Mass/Vol] 0.9 g/dL [facility] Work Phone: Serum or plasma immunoelectr ophoresis interpretation (nominal result)on 08-25-2021 Interpretation IEP [Interp] Comment [facility] Work Phone: Comment on above: No monoclonality det ected. Serum or plasma urea nitroge n measurement (mass/volume)on 08-25-2021 Urea nitrogen [Mass/Vol] 14 mg/dL 7-18 [facility] Work Phone: Serum perinuclear neutrophil cytoplasmic antibody titer by immunofluorescenceon 08-25-2021 Neutrophil cytoplasmic Ab.perinuclear IF (S) [Titer] <1:20 titer Neg:<1:20 [facility] Work Phone: Comment on above: The presence of posi tive fluorescence exhibiting P-ANCA orC-ANCA patterns alone is not specific for the diagnosis ofWegener's Granulomatosis (WG) or microscopic polyangiitis.Decisions about treatment should not be based solely onANCA IFA results. The [employer] Consensusrecommends follow up testing of positive sera with both CT-3 and MPO-ANCA enzyme immunoassays. As many as 5% serumsamples are positive only by EIA. Ref. AM J Clin [id number];111:[id number]. Serum tissue transglutaminas e IgA antibody assay (units/volume)on 08-25-2021 tTG IgA Qn (S) <2 U/mL [facility] Work Phone: Comment on above: Negative 0 - 3 Weak Positive 4 - 10 Positive >10 Tissue Transglutaminase (tTG) has been identified as the endomysial antigen. Studies have demonstr- ated that endomysial IgA antibodies have over 99% specificity for gluten sensitive enteropathy. Thin prep Papanicolaou smear with manual screeningon 08-25-2021 Thin prep Papanicolaou smear with manual screening 19 U/L 15-37 [facility] Work Phone: Thin prep Papanicolaou smear with manual screening 6 5-15 [facility] Work Phone: Thin prep Papanicolaou smear with manual screening 170 U/L 87-241 [facility] Work Phone: Thin prep Papanicolaou smear with manual screening 1.2 [facility] Work Phone: Total protein bloodon 2021 Protein [Mass/Vol] 6.8 g/dL [facility] Work Phone: Absolute lymphocyte counton 06-22-2021 Lymphocytes Auto (Unsp spec) [#/Vol] 1.61 10*3/uL 0.83-4.51 [facility] Work Phone: Basophil percentageon 2020 Basophil percentage 0 SEEN /hpf [facility] Work Phone: Bilirubin [Mass/Vol] 0.60 mg/dL 0.20-1.00 [facility] Work Phone: Comment on above: For patients on eltr ombopag therapy, use of Dimension Wiggins TBIL is not recommended. Chloride [Moles/Vol] 106 mmol/L 98-107 [facility] Work Phone: Eosinophils/100 WBC (Bld) 0.7 % 0-5 [facility] Work Phone: Glucose [Mass/Vol] 75 mg/dL 74-106 [facility] Work Phone: Comment on above: Please note revised GLUCOSE reference range effective 2017. Neutrophils (Bld) [#/Vol] 7.9 10*3/uL 2.0-7.7 [facility] Work Phone: [phone] Potassium [Moles/Vol] 4.0 mmol/L 3.5-5.1 [facility] Work Phone: [phone] Protein [Mass/Vol] 7.3 g/dL 6.4-8.2 [facility] Work Phone: Sodium [Moles/Vol] 136 mmol/L 136-145 [facility] Work Phone: WBC (Bld) [#/Vol] 10.7 10*3/uL 4.4-11.0 [facility] Work Phone: Bilirubin Test strip Ql (U)o n 06-22-2021 Bilirubin Ql (U) Negative Negative [facility] Work Phone: Blood erythrocytes count (nu mber/volume)on 06-22-2021 RBC (Bld) [#/Vol] 5.52 10*6/uL 4.6-6.2 [facility] Work Phone: Blood hemoglobin measurement (mass/volume)on 06-22-2021 Hemoglobin (Bld) [Mass/Vol] 16.7 g/dL 13.0-16.5 [facility] Work Phone: Blood lymphocytes/100 leukoc yteson 06-22-2021 Lymphocytes/100 WBC (Bld) 15.1 % 19-41 [facility] Work Phone: Blood monocytes/100 leukocyt eson 06-22-2021 Monocytes/100 WBC (Bld) 9.6 % 0-10 [facility] Work Phone: Blood platelet mean volumeon 06-22-2021 Platelet mean volume (Bld) [Entitic vol] 12.1 fL 6.2-12.0 [facility] Work Phone: Determination of erythrocyte mean corpuscular volume (MCV)on 06-22-2021 MCV (RBC) [Entitic vol] 86.1 fL 80-94 [facility] Work Phone: Hematocrit Auto (Bld) [Volum e fraction]on 06-22-2021 Hematocrit (Bld) [Volume fraction] 47.5 % 40-54 [facility] Work Phone: Ketones Test strip Ql (U)on 06-22-2021 Ketones Ql (U) 50 mg/dl Negative [facility] Work Phone: Laboratory - Chemistry and C hemistry - challengeon 06-22-2021 ALP [Catalytic activity/Vol] 128 U/L 45-117 [facility] Work Phone: ALT [Catalytic activity/Vol] 22 U/L 16-61 [facility] Work Phone: CO2 [Moles/Vol] 21.0 mmol/L 21.0-32.0 [facility] Work Phone: Globulin (S) [Mass/Vol] 3.5 g/dL 2.2-4.2 [facility] Work Phone: Lipase [Catalytic activity/Vol] 97 U/L 73-393 [facility] Work Phone: Urea nitrogen/Creatinine [Mass ratio] 13.4 mg/mg 10-20 [facility] Work Phone: Laboratory - Hematology and Cell countson 06-22-2021 Basophils/100 WBC (Unsp spec) 0.7 % 0-1 [facility] Work Phone: [phone] Erythrocyte distribution width (RBC) [Entitic vol] 41.4 fL 35.1-43.9 [facility] Work Phone: Erythrocyte distribution width (RBC) [Ratio] 13.2 % 11.6-14.6 [facility] Work Phone: Immature granulocytes/100 WBC (Bld) 0.500 % 0.0-0.9 [facility] Work Phone: Comment on above: IG% - Immature Granu locytes (promyelocytes, myelocytes and metamyelocytes) > 1% indicates that a LEFT SHIFT is Present. MCH (RBC) [Entitic mass] 30.3 pg 27.0-32.0 [facility] Work Phone: Neutrophils/100 WBC (Bld) 73.4 % 47-70 [facility] Work Phone: Nucleated RBC/100 WBC (Bld) [Ratio] 0 % 0-5 [facility] Work Phone: MCHC Auto (RBC) [Mass/Vol]on 06-22-2021 MCHC (RBC) [Mass/Vol] 35.2 g/dL 32-36 [facility] Work Phone: Mucus LM Ql (Urine sed)on Mucus Ql (Urine sed) RARE /hpf [facility] Work Phone: Nitrite Test strip Ql (U)on 06-22-2021 Nitrite Ql (U) Negative Negative [facility] Work Phone: No Panel Informationon 06-22 Estimated Creatinine Clearance Calc 51.59 ml/min [facility] Work Phone: Estimated GFR (MDRD) Amer 74 mL/min >60 [facility] Work Phone: Comment on above: GFR Calc Estimated GFR (MDRD) Non-Af Amer 61 mL/min >60 [facility] Work Phone: Comment on above: Non- GFR Calc Platelets bldon 06-22-2021 Platelets (Bld) [#/Vol] 187 10*3/uL 150-450 [facility] Work Phone: Protein Test strip Ql (U)on 06-22-2021 Protein Ql (U) Negative Negative [facility] Work Phone: Serum or plasma albumin gideon urement (mass/volume)on 06-22-2021 Albumin [Mass/Vol] 3.8 g/dL 3.2-5.0 [facility] Work Phone: Serum or plasma albumin/glob ulin mass ratioon 06-22-2021 Albumin/Globulin [Mass ratio] 1.1 {ratio} 0.9-2.4 [facility] Work Phone: Serum or plasma calcium gideon urement (mass/volume)on 06-22-2021 Calcium [Mass/Vol] 9.3 mg/dL 8.5-10.1 [facility] Work Phone: Serum or plasma creatinine m easurement (mass/volume)on 06-22-2021 Creatinine [Mass/Vol] 1.27 mg/dL 0.70-1.30 [facility] Work Phone: Comment on above: The validity of the calculated GFR & GFRAA in patients over 70 years has not been determined. Clinical correlation is essential. Serum or plasma urea nitroge n measurement (mass/volume)on 06-22-2021 Urea nitrogen [Mass/Vol] 17 mg/dL 7-18 [facility] Work Phone: Squamous epithelial cells de tection in urine sediment by light microscopyon 06-22-2021 Epithelial cells.squamous LM Ql (Urine sed) 0-5 SEEN /hpf [facility] Work Phone: Thin prep Papanicolaou smear with manual screeningon 06-22-2021 Thin prep Papanicolaou smear with manual screening 19 U/L 15-37 [facility] Work Phone: [phone] Thin prep Papanicolaou smear with manual screening 9 5-15 [facility] Work Phone: [phone] Urine blood detectionon - RBC Ql (U) Negative Negative [facility] Work Phone: RBC Ql (U) 0 SEEN /hpf [facility] Work Phone: Urine clarityon 06-22-2021 Clarity (U) Clear Clear [facility] Work Phone: Urine color determinationon 06-22-2021 Color (U) Yellow Yellow [facility] Work Phone: Urine glucose detectionon Glucose Ql (U) Normal mg/dl Normal [facility] Work Phone: Urine leukocyte esterase det ection by dipstickon 06-22-2021 Leukocyte esterase Test strip Ql (U) Negative Negative [facility] Work Phone: Urine pHon 06-22-2021 pH (U) 6.5 [pH] [facility] Work Phone: Urine sediment bacteria coun t by microscopy (number/high power field)on 06-22-2021 Bacteria LM.HPF (Urine sed) [#/Area] 0 /[HPF] None Seen [facility] Work Phone: Urine specific gravity measu rementon 06-22-2021 Specific gravity (U) [Rel density] 1.010 [facility] Work Phone: Urobilinogen Auto test strip Ql (U)on 06-22-2021 Urobilinogen Ql (U) Normal mg/dl Normal [facility] Work Phone: Laboratory - Chemistry and C hemistry - challengeon 04-23-2021 Albumin [Mass/Vol] 4.0 g/dL Normal 3.4 - 5.0 g/dL [facility].; [facility]. Albumin [Mass/Vol] 1.2 g/dL Normal 0.9 - 1.6 [facility].; [facility], [facility]. ALP [Catalytic activity/Vol] 113 U/L Normal 46 - 116 U/L [facility].; [facility], [facility]. ALT [Catalytic activity/Vol] 19 U/L Normal 16 - 63 U/L [facility].; [facility], [facility]. ALT No additional P-5'-P [Catalytic activity/Vol] 19 U/L Normal 16 - 63 U/L [facility].; [facility], [facility]. Anion gap [Moles/Vol] 12 mmol/L Normal 10 - 2 0 mmol/L [facility].; [facility]. AST [Catalytic activity/Vol] 21 U/L Normal 15 - 37 U/L [facility].; [place] [facility], [facility]. Bilirubin [Mass/Vol] 0.3 mg/dL Normal 0.2 - 1 .0 mg/dL [facility].; [facility], [facility]. Calcium [Mass/Vol] 9.0 mg/dL Normal 8.5 - 10. 1 mg/dL [facility], [facility].; [facility], [facility]. Chloride [Moles/Vol] 102 mmol/L Normal 98 - 10 7 mmol/L [facility].; [place] [facility]. Cholesterol [Mass/Vol] 134 mg/dL Normal 0 - 2 40 mg/dL [facility], [facility].; [facility], [facility]. Cholesterol in HDL [Mass or moles/Vol] 45 mg/dL Normal 40 - 60 mg/dL [facility].; [place] [facility], [facility]. Cholesterol in LDL [Mass/Vol] 67 mg/dL Normal 0 - 129 mg/dL [facility], [facility].; [place] [facility], [facility]. Cholesterol.total/Choles terol in HDL [Mass ratio] 3.0 {ratio} Normal 0.0 - 5.0 [facility].; [facility], [facility] CO2 [Moles/Vol] 29.6 mmol/L Normal 21.0 - 32.0 mmol/L [facility]; [facility], [facility] Comprehensive metabolic 2000 panel CMP with eGFR Normal [facility]; [facility], [facility] Creatinine [Mass/Vol] 1.23 mg/dL Normal 0.70 - 1.30 mg/dL [facility].; [facility], [facility]. GFR/1.73 sq M.predicted among blacks MDRD (S/P/Bld) [Vol rate/Area] mL/min/{1.73_m2} Normal 60 - 999 {ML/MINUTE } [facility], [facility].; [facility], [facility]. GFR/1.73 sq M.predicted MDRD (S/P/Bld) [Vol rate/Area] 60 {ML/MINUTE} Normal 60 - 999 {ML/MINUTE } [facility], [facility].; [facility], [facility]. Globulin (S) [Mass/Vol] 3.4 g/dL Normal 1.5 - 3.8 g/dL [facility], [facility].; [facility], [facility]. Glucose [Mass/Vol] 98 mg/dL Normal 74 - 106 mg/dL [facility], [facility].; [facility], [facility]. Lipid 1996 panel LIPID PROFILE Normal [facility]; [facility], [facility] Potassium [Moles/Vol] 4.4 mmol/L Normal 3.5 - 5.1 mmol/L [facility], [facility].; [facility], [facility] Protein [Mass/Vol] 7.4 g/dL Normal 6.4 - 8.2 g/dL [facility], [facility].; [facility], [facility]. Sodium [Moles/Vol] 139 mmol/L Normal 136 - 145 mmol/L [facility], [facility].; [facility], [facility]. Triglyceride [Mass/Vol] 110 mg/dL Normal 0 - 150 mg/dL [facility], [facility].; [facility], [facility] Urea nitrogen [Mass/Vol] 12 mg/dL Normal 7 - 18 mg/dL [facility].; [facility], [facility]. Urea nitrogen/Creatinine [Mass ratio] 10 {ratio} Normal 0 - 30 {ratio} [facility].; [place] [facility]. No Panel Informationon 04-23 AGE 61 {years} Normal [facility].; [facility]. Calcium, Ionizedon 1 Calcium [Moles/Vol] 1.20 mmol/L Normal 1.08-1.30 [facility] Comment on above: Performed By: #### I CA #### [facility] [address], [place] [address] Calcium, Ionized 1.22 mmol/L Normal 1.08-1.30 [facility] Comment on above: Performed By: #### I CA #### [facility] [address] [place] [address] Final Surgical Pathology Rep [facility] 01-31-2021 Final Surgical Pathology Report . 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 COMMENT: Lucio# [id number] CLINICAL INFORMATION: SCREENING FOR COLON CANCER SPECIMEN: A COLON BIOPSY AT 60 CM GROSS DESCRIPTION: A. Received in formalin, labeled with the patients name, Case #[id number], and 60 cm are 2 romero tissue fragments measuring 0.1 and 0.3 cm. TS - 1. Dictated by DOMO BEY MICROSCOPIC DESCRIPTION: Slides reviewed. Electronically Signed by Pathology Report verified by [facility] Electronically signed by SAJI WAYNE Sign out Date: 01/31/2021 16:05 Performing Lab: [facility], [address] [place] [address] ([place]) Comment on above: Performed By: #### S PFR #### [place] [address] Coronavirus 2019on 1 SARS-CoV-2 (COVID-19) RNA HELLEN+probe Ql (Unsp spec) Normal Negative for COVID19 (SARS CoV2) by PCR. [facility] Comment on above: Result Comment: Nega tive for This test was developed and its performance characteristics determined by [facility] [place]. This test has been authorized by FDA under an Emergency Use Authorization (EUA). This test has been validated in accordance with the FDA's Guidance Document Policy for Diagnostics Testing in Laboratories Certified to Perform High Complexity Testing under CLIA prior to Emergency use Authorization for Coronavirus Disease 2019 during the Public Health Emergency issued on August 21, 2019. COVID19 (SARS This test was developed and its performance characteristics determined by [facility] [place]. This test has been authorized by FDA under an Emergency Use Authorization (EUA). This test has been validated in accordance with the FDA's Guidance Document Policy for Diagnostics Testing in Laboratories Certified to Perform High Complexity Testing under CLIA prior to Emergency use Authorization for Coronavirus Disease 2019 during the Public Health Emergency issued on August 21, 2019. CoV2) by PCR. This test was developed and its performance characteristics determined by [facility] [place]. This test has been authorized by FDA under an Emergency Use Authorization (EUA). This test has been validated in accordance with the FDA's Guidance Document Policy for Diagnostics Testing in Laboratories Certified to Perform High Complexity Testing under CLIA prior to Emergency use Authorization for Coronavirus Disease 2019 during the Public Health Emergency issued on August 21, 2019. 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 Laboratory - Chemistry and C hemistry - challengeon 04-15-2020 Albumin [Mass/Vol] 4.5 g/dL Normal 3.4 - 4.8 g/dL [facility], [facility].; [facility], [facility]. Albumin [Mass/Vol] 1.6 g/dL Normal 0.9 - 1.6 [facility], [facility].; [facility] ALP [Catalytic activity/Vol] 94 U/L Normal 38 - 126 U/L [facility], [facility].; [facility], [facility]. ALT [Catalytic activity/Vol] 12 U/L Normal 10 - 40 U/L [facility].; [facility]. ALT No additional P-5'-P [Catalytic activity/Vol] 12 U/L Normal 10 - 40 U/L [facility].; [facility], [facility]. Anion gap [Moles/Vol] 13 mmol/L Normal 10 - 2 0 mmol/L [facility].; [facility]. AST [Catalytic activity/Vol] 15 U/L Normal 13 - 39 U/L [facility].; [facility]. Bilirubin [Mass/Vol] 0.4 mg/dL Normal 0.0 - 1 .5 mg/dL [facility]; [facility]. Calcium [Mass/Vol] 9.7 mg/dL Normal 8.6 - 10. 2 mg/dL [facility]; [facility]. Chloride [Moles/Vol] 104 mmol/L Normal 98 - 10 7 mmol/L [facility] [facility]; [facility], [facility] Cholesterol [Mass/Vol] 138 mg/dL Normal 0 - 2 00 mg/dL [facility].; [facility], [facility]. Cholesterol in HDL [Mass or moles/Vol] 53 mg/dL Normal 40 - 60 mg/dL [facility].; [facility]. Cholesterol in LDL [Mass/Vol] 69 mg/dL Normal 0 - 129 mg/dL [facility].; [facility], [facility]. Cholesterol.total/Choles terol in HDL [Mass ratio] 2.6 {ratio} Normal 0.0 - 5.0 [facility]; [facility] CO2 [Moles/Vol] 26.0 mmol/L Normal 21.0 - 31.0 mmol/L [facility].; [facility], [facility]. Comprehensive metabolic 2000 panel CMP with eGFR Normal [facility]; [facility], [facility] Creatinine [Mass/Vol] 1.0 mg/dL Normal 0.7 - 1.3 mg/dL [facility].; [facility], [facility]. GFR/1.73 sq M.predicted among blacks MDRD (S/P/Bld) [Vol rate/Area] mL/min/{1.73_m2} Normal 60 - 999 {ML/MINUTE } [facility], [facility].; [employer] [facility], [facility]. GFR/1.73 sq M.predicted MDRD (S/P/Bld) [Vol rate/Area] mL/min/{1.73_m2} Normal 60 - 999 {ML/MINUTE } [facility] [employer] [facility], [employer]. Globulin (S) [Mass/Vol] 2.9 g/dL Normal 1.5 - 3.8 g/dL [facility], [facility].; [employer], [employer]. Glucose [Mass/Vol] 93 mg/dL Normal 74 - 106 mg/dL [facility].; [employer], [employer]. Lipid 1996 panel LIPID PROFILE Normal [facility], [facility].; [employer], [employer]. Potassium [Moles/Vol] 4.2 mmol/L Normal 3.5 - 5.1 mmol/L [facility].; [employer], [employer]. Prostate specific Ag [Mass/Vol] 0.59 ng/mL Normal 0.00 - 4.00 ng/mL [facility].; [employer], [employer]. Protein [Mass/Vol] 7.4 g/dL Normal 6.4 - 8.3 g/dL [employer] [facility], [facility].; [employer] Sodium [Moles/Vol] 139 mmol/L Normal 136 - 145 mmol/L [facility], [facility].; [employer], [employer]. Triglyceride [Mass/Vol] 80 mg/dL Normal 0 - 150 mg/dL [facility], [facility].; [employer], [employer]. Urea nitrogen [Mass/Vol] 10 mg/dL Normal 6 - 20 mg/dL [facility], [facility].; [employer], [employer]. Urea nitrogen/Creatinine [Mass ratio] 10 {ratio} Normal 0 - 30 {ratio} [employer], [employer].; [employer], [employer]. No Panel Informationon 04-15 AGE 59 {years} Normal [employer] [facility].; [employer], [employer]. Laboratory - Chemistry and C hemistry - challengeon 03-13-2019 Albumin [Mass/Vol] 4.5 g/dL Normal 3.4 - 4.8 g/dL [facility].; [employer] [facility] Center[facility]. Work Phone: Albumin [Mass/Vol] 1.7 g/dL Abnormal 0.9 - 1.6 [facility], [facility].; [employer]. Work Phone: ALP [Catalytic activity/Vol] 84 U/L Normal 38 - 126 U/L [facility].; [employer]. Work Phone: ALT [Catalytic activity/Vol] 15 U/L Normal 10 - 40 U/L [facility].; [employer]. Work Phone: Anion gap [Moles/Vol] 10 mmol/L Normal 10 - 2 0 mmol/L [facility].; [employer]. Work Phone: AST [Catalytic activity/Vol] 24 U/L Normal 13 - 39 U/L [facility].; [employer]. Work Phone: Bilirubin [Mass/Vol] 0.7 mg/dL Normal 0.0 - 1 .5 mg/dL [facility].; [employer]. Work Phone: Calcium [Mass/Vol] 9.7 mg/dL Normal 8.6 - 10. 2 mg/dL [facility].; [employer]. Work Phone: Chloride [Moles/Vol] 104 mmol/L Normal 98 - 10 7 mmol/L [facility].; [employer]. Work Phone: Cholesterol [Mass/Vol] 127 mg/dL Normal 0 - 2 00 mg/dL [facility].; [employer]. Work Phone: Cholesterol in HDL [Mass or moles/Vol] 46 mg/dL Normal 40 - 60 mg/dL [facility].; [facility] Work Phone: Cholesterol in LDL [Mass/Vol] 61 mg/dL Normal 0 - 129 mg/dL [facility]; [facility] Work Phone: Cholesterol.total/Choles terol in HDL [Mass ratio] 2.8 {ratio} Normal 0.0 - 5.0 [facility]; [facility] Work Phone: CO2 [Moles/Vol] 26.8 mmol/L Normal 21.0 - 31.0 mmol/L [facility]; [facility] Work Phone: Comprehensive metabolic 2000 panel CMP with eGFR Normal [facility]; [employer] [facility] Work Phone: Creatinine [Mass/Vol] 1.1 mg/dL Normal 0.7 - 1.3 mg/dL [facility]; [employer] [facility] Work Phone: GFR/1.73 sq M.predicted among blacks MDRD (S/P/Bld) [Vol rate/Area] mL/min/{1.73_m2} Normal 60 - 999 {ML/MINUTE } [facility]; [facility]. Work Phone: GFR/1.73 sq M.predicted MDRD (S/P/Bld) [Vol rate/Area] mL/min/{1.73_m2} Normal 60 - 999 {ML/MINUTE } [facility].; [employer] [facility]. Work Phone: Globulin (S) [Mass/Vol] 2.7 g/dL Normal 1.5 - 3.8 g/dL [facility]; [employer] [facility] Center[facility]. Work Phone: Glucose [Mass/Vol] 86 mg/dL Normal 74 - 106 mg/dL [facility]; [employer] [facility] Center[facility] Work Phone: Lipid 1996 panel LIPID PROFILE Normal [facility]; [facility] Work Phone: Potassium [Moles/Vol] 3.8 mmol/L Normal 3.5 - 5.1 mmol/L [facility]; [facility] Work Phone: Prostate specific Ag [Mass/Vol] 0.51 ng/mL Normal 0.00 - 4.00 ng/mL [facility]; [facility] Work Phone: Protein [Mass/Vol] 7.2 g/dL Normal 6.4 - 8.3 g/dL [facility]; [employer] [facility] Work Phone: Sodium [Moles/Vol] 137 mmol/L Normal 136 - 145 mmol/L [facility]; [employer] Work Phone: Triglyceride [Mass/Vol] 99 mg/dL Normal 0 - 150 mg/dL [facility]; [employer] Work Phone: Urea nitrogen [Mass/Vol] 13 mg/dL Normal 6 - 20 mg/dL [facility]; [employer] Work Phone: Urea nitrogen/Creatinine [Mass ratio] 12 {ratio} Normal 0 - 30 {ratio} [facility]; [employer] Work Phone: No Panel Informationon 03-13 AGE 58 {years} Normal [facility]; [employer] Work Phone: Laboratory - Chemistry and C hemistry - challengeon 08-19-2018 Glucose Glucometer (BldC) [Moles/Vol] 97 Normal 60 - 120 [facility]; [employer] Laboratory - Chemistry and C hemistry - challengeon 04-14-2018 Albumin [Mass/Vol] 4.8 g/dL Normal 3.4 - 4.8 g/dL [facility].; [facility], [facility]. Albumin [Mass/Vol] 1.6 g/dL Normal 0.9 - 1.6 [facility].; [facility], [facility]. ALP [Catalytic activity/Vol] 95 U/L Normal 38 - 126 U/L [facility].; [facility], [facility]. ALT [Catalytic activity/Vol] 13 U/L Normal 10 - 40 U/L [facility].; [facility], [facility]. ALT No additional P-5'-P [Catalytic activity/Vol] 13 U/L Normal 10 - 40 U/L [facility].; [facility], [facility]. Anion gap [Moles/Vol] 17 mmol/L Normal 10 - 2 0 mmol/L [facility].; [facility], [facility]. AST [Catalytic activity/Vol] 21 U/L Normal 13 - 39 U/L [facility].; [facility], [facility]. Bilirubin [Mass/Vol] 0.8 mg/dL Normal 0.0 - 1 .5 mg/dL [facility].; [facility], [facility]. Calcium [Mass/Vol] 10.2 mg/dL Normal 8.6 - 10. 2 mg/dL [facility].; [facility], [facility]. Chloride [Moles/Vol] 103 mmol/L Normal 98 - 10 7 mmol/L [facility].; [facility], [facility]. Cholesterol [Mass/Vol] 138 mg/dL Normal 0 - 2 00 mg/dL [facility].; [facility], [facility]. Cholesterol in HDL [Mass or moles/Vol] 56 mg/dL Normal 40 - 60 mg/dL [facility].; [facility], [facility]. Cholesterol in LDL [Mass/Vol] 64 mg/dL Normal 0 - 129 mg/dL [facility].; [facility], [facility]. Cholesterol.total/Choles terol in HDL [Mass ratio] 2.5 {ratio} Normal 0.0 - 5.0 [facility].; [facility], [facility]. CO2 [Moles/Vol] 22.5 mmol/L Normal 21.0 - 31.0 mmol/L [facility].; [facility]. Comprehensive metabolic 2000 panel CMP with eGFR Normal [facility].; [facility], [facility] Creatinine [Mass/Vol] 1.1 mg/dL Normal 0.7 - 1.3 mg/dL [facility], [facility].; [facility], [facility]. GFR/1.73 sq M.predicted among blacks MDRD (S/P/Bld) [Vol rate/Area] mL/min/{1.73_m2} Normal 60 - 999 {ML/MINUTE } [facility].; [facility], [facility]. GFR/1.73 sq M.predicted MDRD (S/P/Bld) [Vol rate/Area] mL/min/{1.73_m2} Normal 60 - 999 {ML/MINUTE } [facility], [facility].; [facility], [facility]. Globulin (S) [Mass/Vol] 3.0 g/dL Normal 1.5 - 3.8 g/dL [facility].; [facility], [facility]. Glucose [Mass/Vol] 91 mg/dL Normal 74 - 106 mg/dL [facility], [facility].; [facility], [facility]. Lipid 1996 panel LIPID PROFILE Normal [facility].; [facility], [facility]. Potassium [Moles/Vol] 4.2 mmol/L Normal 3.5 - 5.1 mmol/L [facility], [facility].; [facility], [facility]. Protein [Mass/Vol] 7.8 g/dL Normal 6.4 - 8.3 g/dL [facility], [facility].; [facility], [facility]. Sodium [Moles/Vol] 138 mmol/L Normal 136 - 145 mmol/L [facility], [facility].; [facility], [facility]. Triglyceride [Mass/Vol] 89 mg/dL Normal 0 - 150 mg/dL [facility], [facility].; [facility], [facility]. Urea nitrogen [Mass/Vol] 14 mg/dL Normal 6 - 20 mg/dL [facility], [facility].; [facility], [facility]. Urea nitrogen/Creatinine [Mass ratio] 13 {ratio} Normal 0 - 30 {ratio} [facility].; [facility] No Panel Informationon 04-14 AGE 57 {years} Normal [employer].; [employer], [employer]. Laboratory - Chemistry and C hemistry - challengeon 10-09-2017 Albumin [Mass/Vol] 4.7 g/dL Normal 3.4 - 4.8 g/dL [employer].; [employer], [employer]. Albumin [Mass/Vol] 1.9 g/dL Abnormal 0.9 - 1.6 [employer].; [employer], [employer]. ALP [Catalytic activity/Vol] 85 U/L Normal 38 - 126 U/L [employer].; [employer], [employer]. ALT [Catalytic activity/Vol] 23 U/L Normal 10 - 40 U/L [employer].; [employer], [employer]. ALT No additional P-5'-P [Catalytic activity/Vol] 23 U/L Normal 10 - 40 U/L [employer].; [employer], [employer]. Anion gap [Moles/Vol] 13 mmol/L Normal 10 - 2 0 mmol/L [employer].; [employer], [employer]. AST [Catalytic activity/Vol] 25 U/L Normal 13 - 39 U/L [employer].; [employer], [employer]. Bilirubin [Mass/Vol] 0.7 mg/dL Normal 0.0 - 1 .5 mg/dL [employer], [employer].; [employer], [employer]. Calcium [Mass/Vol] 9.7 mg/dL Normal 8.6 - 10. 2 mg/dL [employer].; [employer], [employer]. Chloride [Moles/Vol] 103 mmol/L Normal 98 - 10 7 mmol/L [employer], [employer].; [employer], [employer]. Cholesterol [Mass/Vol] 118 mg/dL Normal 0 - 2 00 mg/dL [employer].; [employer] Cholesterol in HDL [Mass or moles/Vol] 43 mg/dL Normal 40 - 60 mg/dL [employer], [employer].; [employer], [employer]. Cholesterol in LDL [Mass/Vol] 63 mg/dL Normal 0 - 129 mg/dL [facility].; [facility], [facility]. Cholesterol.total/Choles terol in HDL [Mass ratio] 2.7 {ratio} Normal 0.0 - 5.0 [facility].; [facility], [facility] CO2 [Moles/Vol] 25.7 mmol/L Normal 21.0 - 31.0 mmol/L [facility].; [facility], [facility] Comprehensive metabolic 2000 panel CMP with eGFR Normal [facility]; [facility], [facility] Creatinine [Mass/Vol] 1.0 mg/dL Normal 0.7 - 1.3 mg/dL [facility], [facility].; [facility], [facility]. GFR/1.73 sq M.predicted among blacks MDRD (S/P/Bld) [Vol rate/Area] mL/min/{1.73_m2} Normal 60 - 999 {ML/MINUTE } [facility], [facility].; [facility], [facility]. GFR/1.73 sq M.predicted MDRD (S/P/Bld) [Vol rate/Area] mL/min/{1.73_m2} Normal 60 - 999 {ML/MINUTE } [facility], [facility].; [facility], [facility]. Globulin (S) [Mass/Vol] 2.5 g/dL Normal 1.5 - 3.8 g/dL [facility], [facility].; [facility], [facility]. Glucose [Mass/Vol] 81 mg/dL Normal 74 - 106 mg/dL [facility], [facility].; [facility], [facility]. Lipid 1996 panel LIPID PROFILE Normal [facility], [facility].; [facility], [facility] Potassium [Moles/Vol] 4.0 mmol/L Normal 3.5 - 5.1 mmol/L [facility], [facility].; [facility], [facility] Protein [Mass/Vol] 7.2 g/dL Normal 6.4 - 8.3 g/dL [facility], [facility].; [facility], [facility]. Sodium [Moles/Vol] 138 mmol/L Normal 136 - 145 mmol/L [facility], [facility].; [facility], [facility] Triglyceride [Mass/Vol] 62 mg/dL Normal 0 - 150 mg/dL [facility], [facility].; [employer], [employer]. Urea nitrogen [Mass/Vol] 15 mg/dL Normal 6 - 20 mg/dL [employer].; [employer], [employer]. Urea nitrogen/Creatinine [Mass ratio] 15 {ratio} Normal 0 - 30 {ratio} [employer].; [employer], [employer]. No Panel Informationon 10-09 AGE 57 {years} Normal [employer].; [employer]. Laboratory - Chemistry and C hemistry - challengeon 01-28-2017 Albumin [Mass/Vol] 4.5 g/dL Normal 3.4 - 4.8 g/dL [employer].; [employer], [employer]. Albumin [Mass/Vol] 1.8 g/dL Abnormal 0.9 - 1.6 [employer] [facility].; [employer], [employer]. ALP [Catalytic activity/Vol] 107 U/L Normal 38 - 126 U/L [employer].; [employer], [employer]. ALT [Catalytic activity/Vol] 17 U/L Normal 10 - 40 U/L [employer].; [employer], [employer]. ALT No additional P-5'-P [Catalytic activity/Vol] 17 U/L Normal 10 - 40 U/L [employer].; [employer], [employer]. Anion gap [Moles/Vol] 12 mmol/L Normal 10 - 2 0 mmol/L [employer].; [employer], [employer]. AST [Catalytic activity/Vol] 19 U/L Normal 13 - 39 U/L [employer] [facility].; [employer], [employer]. Bilirubin [Mass/Vol] 0.5 mg/dL Normal 0.0 - 1 .5 mg/dL [employer], [employer].; [employer], [employer]. Calcium [Mass/Vol] 9.7 mg/dL Normal 8.6 - 10. 2 mg/dL [employer], [employer].; [employer] Chloride [Moles/Vol] 102 mmol/L Normal 98 - 10 7 mmol/L [facility], [employer].; [employer], [employer]. Cholesterol [Mass/Vol] 200 mg/dL Normal 0 - 2 00 mg/dL [facility].; [facility]. Cholesterol in HDL [Mass or moles/Vol] 44 mg/dL Normal 40 - 60 mg/dL [facility]; [facility] Cholesterol in LDL [Mass/Vol] 137 mg/dL Abnormal 0 - 129 mg/dL [facility].; [facility], [facility] Cholesterol.total/Choles terol in HDL [Mass ratio] 4.5 {ratio} Normal 0.0 - 5.0 [facility]; [facility], [facility] CO2 [Moles/Vol] 26.6 mmol/L Normal 21.0 - 31.0 mmol/L [facility]; [facility], [facility]. Comprehensive metabolic 2000 panel CMP with eGFR Normal [facility]; [facility], [facility] Creatinine [Mass/Vol] 1.0 mg/dL Normal 0.7 - 1.3 mg/dL [facility]; [facility], [facility]. GFR/1.73 sq M.predicted among blacks MDRD (S/P/Bld) [Vol rate/Area] mL/min/{1.73_m2} Normal 60 - 999 {ML/MINUTE } [facility].; [facility], [facility]. GFR/1.73 sq M.predicted MDRD (S/P/Bld) [Vol rate/Area] mL/min/{1.73_m2} Normal 60 - 999 {ML/MINUTE } [facility], [facility].; [facility], [facility]. Globulin (S) [Mass/Vol] 2.5 g/dL Normal 1.5 - 3.8 g/dL [facility].; [facility], [facility]. Glucose [Mass/Vol] 82 mg/dL Normal 74 - 106 mg/dL [facility].; [facility], [facility]. Lipid 1996 panel LIPID PROFILE Normal [facility]; [facility], [facility] Potassium [Moles/Vol] 4.1 mmol/L Normal 3.5 - 5.1 mmol/L [facility]; [facility], [facility] Prostate specific Ag [Mass/Vol] 0.41 ng/mL Normal 0.00 - 4.00 ng/mL [employer] [facility].; [employer]. Protein [Mass/Vol] 7.0 g/dL Normal 6.4 - 8.3 g/dL [employer].; [employer]. Sodium [Moles/Vol] 136 mmol/L Normal 136 - 145 mmol/L [employer].; [employer]. Triglyceride [Mass/Vol] 95 mg/dL Normal 0 - 150 mg/dL [employer].; [employer]. Urea nitrogen [Mass/Vol] 13 mg/dL Normal 6 - 20 mg/dL [employer].; [employer]. Urea nitrogen/Creatinine [Mass ratio] 13 {ratio} Normal 0 - 30 {ratio} [employer].; [employer]. No Panel Informationon 01-28 AGE 56 {years} Normal [employer].; [employer]. Laboratory - Chemistry and C hemistry - challengeon 12-08-2013 Bilirubin Ql (U) small Abnormal [facility] [employer] Ketones Ql (U) Negative Normal [employer] [place] [place] pH (U) 6.0 [pH] Normal [facility] [employer] [place] [place] Specific gravity (U) [Rel density] 1.025 Normal [facility] [employer] [facility] [place] [place]. Urobilinogen Qn (U) 0.2 mg/dL Normal [facility].; [place] [place] Laboratory - Hematology and Cell countson 12-08-2013 Hemoglobin Ql (U) small Abnormal [employer] [place] [place] Laboratory - Specimen inform ationon 12-08-2013 Appearance (U) cloudy Abnormal [employer] [place] [place] Color (U) dark Yellow Normal [employer] [place] [place] Laboratory - Urinalysison Glucose Test strip (U) [Mass/Vol] Negative Normal [employer].; [place] [place] Leukocyte esterase Test strip Ql (U) Negative Normal [facility].; [facility] Protein Ql (U) 30 mg/dL Abnormal [facility].; [facility], [facility] Laboratory - UrinalysisOrder ed By: Kristine Augustin on 12-08-2013 Nitrite Ql (U) Negative Normal [facility].; [place] [facility] Laboratory - Chemistry and C hemistry - challengeon 11-28-2013 Cholesterol [Mass/Vol] 186 mg/dL Normal 0 - 2 00 mg/dL [facility]; [facility] Cholesterol in HDL [Mass or moles/Vol] 42 mg/dL Normal 40 - 60 mg/dL [facility]; [facility], [facility] Cholesterol in LDL [Mass/Vol] 123 mg/dL Normal 0 - 129 mg/dL [facility].; [place] [facility], [facility] Cholesterol.total/Choles terol in HDL [Mass ratio] 4.4 {ratio} Normal 0.0 - 5.0 [facility].; [place] [facility] Lipid 1996 panel LIPID PROFILE Normal [facility].; [place] [facility], [facility] Prostate specific Ag [Mass/Vol] 0.6 ng/mL Normal 0.0 - 4.0 ng/mL [facility].; [place] [facility], [facility]. Triglyceride [Mass/Vol] 106 mg/dL Normal 0 - 150 mg/dL [facility].; [place] [facility], [facility]. Stool lactoferrin detection by immunoassay Lactoferrin IA Ql (Stl) [facility] Work Phone: Vital Signs Date Time Vital Sign Value Performing Clinician Faci lity 03-22-2025 12:41-0400 Body temperature 97.5 [degF] Dr. Hitesh Dai MD Work Phone: [facility] 03-22-2025 12:41-0400 Diastolic blood pressure 71 mm[Hg] Dr. Hitesh Dai MD Work Phone: [facility] 03-22-2025 12:41-0400 Heart rate 98 /min Dr. Hitesh Dai MD Work Phone: [facility] 03-22-2025 12:41-0400 Respiratory rate 18 /min Dr. Hitesh Dai MD Work Phone: [facility] 03-22-2025 12:41-0400 SaO2% (BldA) [Mass fraction] 100 % Dr. Hitesh Dai MD Work Phone: [facility] 03-22-2025 12:41-0400 Systolic blood pressure 134 mm[Hg] Dr. Hitesh Dai MD Work Phone: [facility] 03-22-2025 10:38-0400 Body height 177.[address] Hitesh Dia MD Work Phone: [facility] 03-22-2025 10:38-0400 Body mass index (BMI) [Ratio] 14.4 kg/m2 Dr. Hitesh Dai MD Work Phone: [facility] 03-22-2025 10:38-0400 Body weight 45.[address] Hitesh Dai MD Work Phone: [facility] 12-06-2024 14:04-0400 Body height 177.8 cm Jesus Croft MD Work Phone: [facility] 12-06-2024 14:04-0400 Body mass index (BMI) [Ratio] 14.49 kg/m2 Jesus Croft MD Work Phone: [facility] 12-06-2024 14:04-0400 Body temperature 98.49 [degF] Jesus Croft MD Work Phone: [facility] 12-06-2024 14:04-0400 Body weight 45.81 kg Jesus Croft MD Work Phone: [facility] 12-06-2024 14:04-0400 Diastolic blood pressure 83 mm[Hg] Jesus Croft MD Work Phone: [facility] 12-06-2024 14:04-0400 Heart rate 79 /min Jesus Croft MD Work Phone: [facility] 12-06-2024 14:04-0400 SaO2% (BldA) [Mass fraction] 95 % Jesus Croft MD Work Phone: [facility] 12-06-2024 14:04-0400 Systolic blood pressure 117 mm[Hg] Jesus Croft MD Work Phone: [facility] 12-03-2024 09:20-0400 Body height 177.8 cm Hitesh Price MD Work Phone: [facility] 12-03-2024 09:20-0400 Body mass index (BMI) [Ratio] 14.52 kg/m2 Hitesh Price MD Work Phone: [facility] 12-03-2024 09:20-0400 Body temperature 98.01 [degF] Hitesh Price MD Work Phone: [facility] 12-03-2024 09:20-0400 Body weight 45.9 kg Hitesh Price MD Work Phone: [facility] 12-03-2024 09:20-0400 Diastolic blood pressure 90 mm[Hg] Htiesh Price MD Work Phone: [facility] 12-03-2024 09:20-0400 Heart rate 81 /min Hitesh Price MD Work Phone: [facility] 12-03-2024 09:20-0400 SaO2% (BldA) [Mass fraction] 99 % Hitesh Price MD Work Phone: [facility] 12-03-2024 09:20-0400 Systolic blood pressure 135 mm[Hg] Hitesh Price MD Work Phone: [facility] 10-26-2024 09:26-0400 Diastolic blood pressure 80 mm[Hg] Gio Richardson DO Work Phone: [facility] 10-26-2024 09:26-0400 Heart rate 92 /min Gio Richardson DO Work Phone: [facility] 10-26-2024 09:26-0400 SaO2% (BldA) [Mass fraction] 99 % Gio Richardson DO Work Phone: [facility] 10-26-2024 09:26-0400 Systolic blood pressure 121 mm[Hg] Gio Richardson DO Work Phone: [facility] 10-06-2024 12:54-0400 Body height 177.8 cm Darvin Garcia MD Work Phone: [facility] 10-06-2024 12:54-0400 Body mass index (BMI) [Ratio] 16.24 kg/m2 Darvin Garcia MD Work Phone: [facility] 10-06-2024 12:54-0400 Body weight 51.35 kg Darvin Garcia MD Work Phone: [facility] 10-06-2024 12:54-0400 Diastolic blood pressure 73 mm[Hg] Darvin Garcia MD Work Phone: [facility] 10-06-2024 12:54-0400 Heart rate 76 /min Darvin Garcia MD Work Phone: [facility] 10-06-2024 12:54-0400 SaO2% (BldA) [Mass fraction] 99 % Darvin Garcia MD Work Phone: [facility] 10-06-2024 12:54-0400 Systolic blood pressure 107 mm[Hg] Darvin Garcia MD Work Phone: [facility] 09-26-2024 15:00-0400 Heart rate 85 /min Dr. Hitesh Dai MD Work Phone: [facility] 09-26-2024 15:00-0400 Respiratory rate 19 /min Dr. Hitesh Dai MD Work Phone: [facility] 09-26-2024 15:00-0400 SaO2% (BldA) [Mass fraction] 98 % Dr. Hitesh Dai MD Work Phone: [facility] 09-26-2024 14:30-0400 Diastolic blood pressure 103 mm[Hg] Dr. Hitesh Dai MD Work Phone: 1(463)456-243114 [address] 09-26-2024 14:30-0400 Systolic blood pressure 120 mm[Hg] Dr. Hitesh Dai MD Work Phone: 9(996)979-438914 [address] 09-26-2024 13:15-0400 Body mass index (BMI) [Ratio] 15.1 kg/m2 Dr. Hitesh Dai MD Work Phone: 1(689)849-266477 [place] [address] 09-26-2024 13:15-0400 Body weight [address] Hitesh Dai MD Work Phone: 6(048)587-519477 [place] [address] 09-26-2024 12:45-0400 Body height 177.[address] Hitesh Dai MD Work Phone: 3(924)778-434877 [place] [address] 09-26-2024 12:45-0400 Body temperature 97.2 [degF] Dr. Hitesh Dai MD Work Phone: 1(525)483-892377 [place] [address] 08-10-2024 06:00-0500 Diastolic blood pressure 61 mm[Hg] Dr. Hitesh Dai MD Work Phone: 1(267)310-472877 [place] [address] 08-10-2024 06:00-0500 Heart rate 61 /min Dr. Hitesh Dai MD Work Phone: 2(445)694-221977 [place] [address] 08-10-2024 06:00-0500 Respiratory rate 16 /min Dr. Hitesh Dai MD Work Phone: 3(359)058-931877 [place] [address] 08-10-2024 06:00-0500 SaO2% (BldA) [Mass fraction] 100 % Dr. Hitesh Dai MD Work Phone: 1(179)093-384177 [place] [address] 08-10-2024 06:00-0500 Systolic blood pressure 133 mm[Hg] Dr. Hitesh Dai MD Work Phone: 4(251)284-439177 [place] [address] 08-10-2024 05:19-0500 Body temperature 98 [degF] Dr. Hitesh Dai MD Work Phone: 2(807)567-387277 [place] [address] 08-09-2024 20:52-0500 Body mass index (BMI) [Ratio] 15 kg/m2 Dr. Hitesh Dai MD Work Phone: 2(552)058-912877 [place] [address] 08-09-2024 20:52-0500 Body weight 47.[address] Hitesh Dai MD Work Phone: 7(811)657-[address] [place] [address] 08-05-2024 07:22-0500 Body temperature 98 [degF] Dr. Hitesh Dai MD Work Phone: [facility] 08-05-2024 07:22-0500 Diastolic blood pressure 94 mm[Hg] Dr. Hitesh Dai MD Work Phone: 6(696)856-757514 [address] 08-05-2024 07:22-0500 Heart rate 76 /min Dr. Hitesh Dai MD Work Phone: 7(077)537-462314 [address] 08-05-2024 07:22-0500 Respiratory rate 18 /min Dr. Hitesh Dai MD Work Phone: 9(198)368-716414 [address] 08-05-2024 07:22-0500 SaO2% (BldA) [Mass fraction] 99 % Dr. Hitesh Dai MD Work Phone: 4(704)107-174319 [place] [address] 08-05-2024 07:22-0500 Systolic blood pressure 129 mm[Hg] Dr. Hitesh Dai MD Work Phone: 4(748)116-510514 [address] 08-05-2024 03:57-0500 Body mass index (BMI) [Ratio] 16.5 kg/m2 Dr. Hitesh Dai MD Work Phone: [facility] 08-05-2024 03:57-0500 Body weight 52.[address] Hitesh Dai MD Work Phone: [facility] 07-28-2024 14:18-0500 Body height 177.8 cm Lacey Arroyo MD Work Phone: [facility] 07-28-2024 14:18-0500 Body mass index (BMI) [Ratio] 16.52 kg/m2 Lacey Arroyo MD Work Phone: [facility] 07-28-2024 14:18-0500 Body weight 52.21 kg Lacey Arroyo MD Work Phone: [facility] 07-28-2024 14:18-0500 Diastolic blood pressure 72 mm[Hg] Lacey Arroyo MD Work Phone: [facility] 07-28-2024 14:18-0500 Heart rate 78 /min Lacey Arroyo MD Work Phone: [facility] 07-28-2024 14:18-0500 SaO2% (BldA) [Mass fraction] 99 % Lacey Arroyo MD Work Phone: [facility] 07-28-2024 14:18-0500 Systolic blood pressure 108 mm[Hg] Lacey Arroyo MD Work Phone: [facility] 06-03-2024 09:37-0500 Body height 177.8 cm George Culver MD Work Phone: [facility] 06-03-2024 09:37-0500 Body mass index (BMI) [Ratio] 16.21 kg/m2 George Culver MD Work Phone: [facility] 06-03-2024 09:37-0500 Body weight 51.26 kg George Culver MD Work Phone: [facility] 06-03-2024 09:37-0500 Diastolic blood pressure 90 mm[Hg] George Culver MD Work Phone: [facility] 06-03-2024 09:37-0500 Heart rate 93 /min George Culver MD Work Phone: [facility] 06-03-2024 09:37-0500 Systolic blood pressure 137 mm[Hg] George Culver MD Work Phone: [facility] 05-11-2024 10:48-0500 Diastolic blood pressure 70 mm[Hg] Gio Richardson DO Work Phone: [facility] 05-11-2024 10:48-0500 Heart rate 71 /min Gio Richardson DO Work Phone: [facility] 05-11-2024 10:48-0500 SaO2% (BldA) [Mass fraction] 98 % Gio Richardson DO Work Phone: [facility] 05-11-2024 10:48-0500 Systolic blood pressure 127 mm[Hg] Gio Richardson DO Work Phone: [facility] 05-05-2024 08:33-0500 Body height 175.26 cm Christopher Munguia LPN [facility] [place] [facility] [facility] 05-05-2024 08:33-0500 Body mass index (BMI) [Ratio] 16.69 kg/m2 Christopher Munguia LPN [facility] [employer] 05-05-2024 08:33-0500 Body surface area Derived from formula 1.62 m2 Christopher Munguia LPN [facility] [employer] 05-05-2024 08:33-0500 Body weight 51.26 kg Christopher Munguia LPN [facility] [employer] 05-05-2024 08:33-0500 Diastolic blood pressure 80 mm[Hg] Christopher Munguia LPN [facility], [facility].; [employer]. Comment on above: Patient Position: Sitting; Cuff Location : Left Arm; Cuff Size: Standard 05-05-2024 08:33-0500 Heart rate 70 /min Christopher Munguia LPN [facility], [facility].; [employer]. Comment on above: Pattern: Regular 05-05-2024 08:33-0500 Systolic blood pressure 134 mm[Hg] Christopher Munguia LPN [facility] [employer]. Comment on above: Patient Position: Sitting; Cuff Location : Left Arm; Cuff Size: Standard 04-29-2024 11:37-0500 Body height 175.26 cm Christopher Munguia LPN [facility] [employer] 04-29-2024 11:37-0500 Body mass index (BMI) [Ratio] 16.54 kg/m2 Christopher Munguia LPN [facility] [employer] 04-29-2024 11:37-0500 Body surface area Derived from formula 1.61 m2 Christopher Munguia LPN [facility] [employer] 04-29-2024 11:37-0500 Body temperature 97 [degF] Christopher Munguia LPN [facility].; [facility]. Comment on above: Method: Tympanic 04-29-2024 11:37-0500 Body weight 50.8 kg Christopher Munguia LPN [facility].; [facility]. 04-29-2024 11:37-0500 Diastolic blood pressure 72 mm[Hg] Christopher Munguia LPN [facility].; [facility]. Comment on above: Patient Position: Sitting; Cuff Location : Left Arm; Cuff Size: Standard 04-29-2024 11:37-0500 Heart rate 80 /min Christopher Munguia LPN [facility].; [facility]. Comment on above: Pattern: Regular 04-29-2024 11:37-0500 Systolic blood pressure 137 mm[Hg] Christopher Munguia LPN [facility].; [facility]. Comment on above: Patient Position: Sitting; Cuff Location : Left Arm; Cuff Size: Standard 01-15-2024 15:20-0400 Body height 177.8 cm George Culver MD Work Phone: [facility] 01-15-2024 15:20-0400 Body mass index (BMI) [Ratio] 16.5 kg/m2 George Culver MD Work Phone: [facility] 01-15-2024 15:20-0400 Body weight 52.16 kg George Culver MD Work Phone: [facility] 01-15-2024 15:20-0400 Diastolic blood pressure 74 mm[Hg] George Culver MD Work Phone: [facility] 01-15-2024 15:20-0400 Heart rate 71 /min George Culver MD Work Phone: [facility] 01-15-2024 15:20-0400 Systolic blood pressure 124 mm[Hg] George Culver MD Work Phone: [facility] 05-07-2023 14:18-0500 Body height 177.8 cm George Culver MD Work Phone: [facility] 05-07-2023 14:18-0500 Body weight 51.53 kg George Culver MD Work Phone: [facility] 05-07-2023 14:18-0500 Diastolic blood pressure 67 mm[Hg] George Culver MD Work Phone: [facility] 05-07-2023 14:18-0500 Heart rate 71 /min George Culver MD Work Phone: [facility] 05-07-2023 14:18-0500 Systolic blood pressure 112 mm[Hg] George Culver MD Work Phone: [facility] 05-07-2023 07:42-0500 Body height 175.26 cm Christopher Munguia LPN [facility], [facility].; [facility], [facility]. 05-07-2023 07:42-0500 Body mass index (BMI) [Ratio] 16.69 kg/m2 Christopher Munguia LPN [facility], [facility].; [facility], [facility]. 05-07-2023 07:42-0500 Body surface area Derived from formula 1.62 m2 Christopher Munguia LPN [facility], [facility].; [facility] 05-07-2023 07:42-0500 Body weight 51.26 kg Christopher Munguia LPN [facility], [facility]. 05-07-2023 07:42-0500 Diastolic blood pressure 75 mm[Hg] Christopher Munguia LPN [facility] [facility], [facility]. Comment on above: Patient Position: Sitting; Cuff Location : Left Arm; Cuff Size: Standard 05-07-2023 07:42-0500 Heart rate 66 /min Christopher Munguia LPN [facility] Comment on above: Pattern: Regular 05-07-2023 07:42-0500 Systolic blood pressure 118 mm[Hg] Christopher Munguia LPN [facility]. Comment on above: Patient Position: Sitting; Cuff Location : Left Arm; Cuff Size: Standard 04-25-2023 08:00-0400 Diastolic blood pressure 64 mm[Hg] Dr. Hitesh Dai Work Phone: 4(238)307-760514 [address] 04-25-2023 08:00-0400 Systolic blood pressure 112 mm[Hg] Dr. Hitesh Dai Work Phone: 0(396)708-314977 [place] [address] 04-25-2023 06:23-0400 Heart rate 71 /min Dr. Hitesh Dai Work Phone: 5(148)245-367777 [place] [address] 04-25-2023 06:23-0400 Respiratory rate 16 /min Dr. Hitesh Dai Work Phone: 0(394)554-677077 [place] [address] 04-25-2023 06:23-0400 SaO2% (BldA) [Mass fraction] 97 % Dr. Hitesh Dai Work Phone: 8(596)402-704277 [place] [address] 04-25-2023 04:24-0400 Body height 177.[address] Hitesh Dai Work Phone: 7(058)246-152277 [place] [address] 04-25-2023 04:24-0400 Body mass index (BMI) [Ratio] 16.3 kg/m2 Dr. Hitesh Dai Work Phone: 0(178)237-841077 [place] [address] 04-25-2023 04:24-0400 Body temperature 97.3 [degF] Dr. Hitesh Dai Work Phone: 2(059)803-091177 [place] [address] 04-25-2023 04:24-0400 Body weight 51.[address] Hitesh Dai Work Phone: 1(153)930-429577 [place] [address] 04-14-2023 13:17-0400 Diastolic blood pressure 61 mm[Hg] Dr. Hitesh Dai Work Phone: 4(973)946-686277 [place] [address] 04-14-2023 13:17-0400 Heart rate 71 /min Dr. Hitesh Dai Work Phone: 7(945)979-491277 [place] [address] 04-14-2023 13:17-0400 Respiratory rate 11 /min Dr. Hitesh Dai Work Phone: 3(053)611-599714 [address] 04-14-2023 13:17-0400 SaO2% (BldA) [Mass fraction] 100 % Dr. Hitesh Dai Work Phone: [facility] 04-14-2023 13:17-0400 Systolic blood pressure 107 mm[Hg] Dr. Hitesh Dai Work Phone: [facility] 04-14-2023 10:11-0400 Body mass index (BMI) [Ratio] 16.3 kg/m2 Dr. Hitesh Dai Work Phone: [facility] 04-14-2023 10:11-0400 Body weight 51.[address] Hitesh Dai Work Phone: [facility] 04-14-2023 09:44-0400 Body temperature 98.2 [degF] Dr. Hitesh Dai Work Phone: [facility] 04-14-2023 08:42-0400 Body height 177.[address] Hitesh Dai Work Phone: [facility] 04-08-2023 13:30-0400 Diastolic blood pressure 81 mm[Hg] George Culver MD Work Phone: [facility] 04-08-2023 13:30-0400 Respiratory rate 16 /min George Culver MD Work Phone: [facility] 04-08-2023 13:30-0400 SaO2% (BldA) [Mass fraction] 100 % George Culver MD Work Phone: [facility] 04-08-2023 13:30-0400 Systolic blood pressure 129 mm[Hg] George Culver MD Work Phone: [facility] 04-08-2023 12:35-0400 Body temperature 96.8 [degF] George Culver MD Work Phone: [facility] 04-08-2023 12:35-0400 Heart rate 59 /min George Culver MD Work Phone: [facility] 04-08-2023 09:37-0400 Body height 177.8 cm George Culver MD Work Phone: [facility] 04-08-2023 09:37-0400 Body weight 49.9 kg George Culver MD Work Phone: [facility] 03-27-2023 09:22-0400 Body height 177.8 cm George Culver MD Work Phone: [facility] 03-27-2023 09:22-0400 Body weight 47.17 kg George Culver MD Work Phone: [facility] 03-27-2023 09:22-0400 Diastolic blood pressure 80 mm[Hg] George Culver MD Work Phone: [facility] 03-27-2023 09:22-0400 Heart rate 82 /min George Culver MD Work Phone: [facility] 03-27-2023 09:22-0400 Systolic blood pressure 114 mm[Hg] George Culver MD Work Phone: [facility] 03-04-2023 13:24-0400 Body height 177.8 cm Azalea Chapman PA-C Work Phone: [facility] 03-04-2023 13:24-0400 Diastolic blood pressure 64 mm[Hg] Azalea Chapman PA-C Work Phone: [facility] 03-04-2023 13:24-0400 Heart rate 65 /min Azalea Chapman PA-C Work Phone: [facility] 03-04-2023 13:24-0400 SaO2% (BldA) [Mass fraction] 97 % Azalea Chapman PA-C Work Phone: [facility] 03-04-2023 13:24-0400 Systolic blood pressure 110 mm[Hg] Azalea Chapman PA-C Work Phone: [facility] 01-08-2023 09:35-0400 Body temperature 97.5 [degF] Dr. Hitesh Dai Work Phone: [facility] 01-08-2023 09:35-0400 Diastolic blood pressure 57 mm[Hg] Dr. Hitesh Dai Work Phone: 0(842)143-503414 [address] 01-08-2023 09:35-0400 Heart rate 52 /min Dr. Hitesh Dai Work Phone: 7(311)225-019177 [place] [address] 01-08-2023 09:35-0400 Respiratory rate 16 /min Dr. Hitesh Dai Work Phone: 8(990)370-125377 [place] [address] 01-08-2023 09:35-0400 Systolic blood pressure 102 mm[Hg] Dr. Hitesh Dai Work Phone: 3(261)558-126477 [place] [address] 01-08-2023 09:25-0400 SaO2% (BldA) [Mass fraction] 100 % Dr. Hitesh Dai Work Phone: 2(014)873-594377 [place] [address] 01-08-2023 07:38-0400 Body height 177.[address] Hitesh Dai Work Phone: 0(179)308-701877 [place] [address] 01-08-2023 07:38-0400 Body mass index (BMI) [Ratio] 15.9 kg/m2 Dr. Hitesh Dai Work Phone: 2(992)159-051777 [place] [address] 01-08-2023 07:38-0400 Body weight 50.[address] Hitesh Dai Work Phone: 3(835)024-573277 [place] [address] 11-13-2022 14:30-0400 Body temperature 98.2 [degF] Dr. Hitesh Dai Work Phone: 3(113)544-190077 [place] [address] 11-13-2022 14:30-0400 Diastolic blood pressure 76 mm[Hg] Dr. Hitesh Dai Work Phone: 0(791)780-524877 [place] [address] 11-13-2022 14:30-0400 Heart rate 68 /min Dr. Hitesh Dai Work Phone: 3(233)581-529577 [place] [address] 11-13-2022 14:30-0400 Respiratory rate 18 /min Dr. Hitesh Dai Work Phone: 1(487)033-081077 [place] [address] 11-13-2022 14:30-0400 SaO2% (BldA) [Mass fraction] 99 % Dr. Hitesh Dai Work Phone: 9(629)005-543614 [address] 11-13-2022 14:30-0400 Systolic blood pressure 122 mm[Hg] Dr. Hitesh Dai Work Phone: 2(672)219-978019 [place] [address] 11-13-2022 13:13-0400 Body height 177.[address] Hitesh Dai Work Phone: 7(269)135-746019 [place] [address] 11-13-2022 13:13-0400 Body weight 49.[address] Hitesh Dai Work Phone: 4(508)562-050214 [address] 11-12-2022 15:03-0400 Body mass index (BMI) [Ratio] 15.7 kg/m2 Dr. Hitesh Dai Work Phone: 5(643)979-869691 [place] [address] 10-10-2022 11:39-0400 Body height 177.[address] Hitesh Dai Work Phone: 7(637)634-741914 [address] 10-10-2022 11:39-0400 Body weight 41.[address] Hitesh Dai Work Phone: 2(900)[phone] [address] 10-10-2022 09:20-0400 Body temperature 97.6 [degF] Dr. Hitesh Dai Work Phone: 3(801)746-625814 [address] 10-10-2022 09:20-0400 Diastolic blood pressure 72 mm[Hg] Dr. Hitesh Dai Work Phone: 2(176)361-133314 [address] 10-10-2022 09:20-0400 Heart rate 60 /min Dr. Hitesh Dai Work Phone: 1(704)338-479014 [address] 10-10-2022 09:20-0400 Respiratory rate 18 /min Dr. Hitesh Dai Work Phone: 0(851)155-427314 [address] 10-10-2022 09:20-0400 SaO2% (BldA) [Mass fraction] 100 % Dr. Hitesh Dai Work Phone: 5(119)[phone] [place] [address] 10-10-2022 09:20-0400 Systolic blood pressure 129 mm[Hg] Dr. Hitesh Dai Work Phone: [facility] 10-10-2022 06:00-0400 Body mass index (BMI) [Ratio] 13.1 kg/m2 Dr. Hitesh Dai Work Phone: [facility] 10-03-2022 13:35-0400 Body height 175.26 cm Christopher Munguia LPN [facility] 10-03-2022 13:35-0400 Body mass index (BMI) [Ratio] 16.1 kg/m2 Christopher Munguia LPN [facility] 10-03-2022 13:35-0400 Body surface area Derived from formula 1.6 m2 Christopher Munguia LPN [facility], [facility].; [facility] 10-03-2022 13:35-0400 Body temperature 97.9 [degF] Christopher Munguia LPN [facility], [facility].; [place] [facility] Comment on above: Method: Tympanic 10-03-2022 13:35-0400 Body weight 49.44 kg Christopher Munguia LPN [facility] [place] [facility] 10-03-2022 13:35-0400 Diastolic blood pressure 89 mm[Hg] Christopher Munguia LPN [facility] [employer] Comment on above: Patient Position: Sitting; Cuff Location : Left Arm; Cuff Size: Standard 10-03-2022 13:35-0400 Heart rate 81 /min Christopher Munguia LPN [facility] [employer] Comment on above: Pattern: Regular 10-03-2022 13:35-0400 Inhaled oxygen concentration 20 % Christopher Munguia LPN [facility] [employer] Comment on above: Room air 10-03-2022 13:35-0400 Inhaled oxygen concentration 21 % Christopher Munguia LPN [facility] [employer] Comment on above: Room air 10-03-2022 13:35-0400 SaO2% (BldA) [Mass fraction] 99 % Christopher Munguia LPN [facility] [employer] 10-03-2022 13:35-0400 Systolic blood pressure 121 mm[Hg] Christopher Munguia LPN [facility]. Comment on above: Patient Position: Sitting; Cuff Location : Left Arm; Cuff Size: Standard 08-28-2022 14:30-0500 Body temperature 98 [degF] Dr. Hitesh Dai Work Phone: 2(089)[phone] [place] [address] 08-28-2022 14:30-0500 Diastolic blood pressure 70 mm[Hg] Dr. Hitesh Dai Work Phone: 5(396)385-967177 [place] [address] 08-28-2022 14:30-0500 Heart rate 68 /min Dr. Hitesh Dai Work Phone: 5(040)072-499577 [place] [address] 08-28-2022 14:30-0500 Respiratory rate 16 /min Dr. Hitesh Dai Work Phone: 9(015)833-597177 [place] [address] 08-28-2022 14:30-0500 SaO2% (BldA) [Mass fraction] 97 % Dr. Hitesh Dai Work Phone: 1(601)600-005477 [place] [address] 08-28-2022 14:30-0500 Systolic blood pressure 118 mm[Hg] Dr. Hitesh Dai Work Phone: 1(014)519-338577 [place] [address] 08-27-2022 11:33-0500 Body height 177.[address] Hitesh Dai Work Phone: 8(493)137-363977 [place] [address] 08-27-2022 11:33-0500 Body mass index (BMI) [Ratio] 16.2 kg/m2 Dr. Hitesh Dai Work Phone: 6(082)797-696614 [address] 08-27-2022 11:33-0500 Body weight 51.[address] Hitesh Dai Work Phone: 0(136)830-014914 [address] 07-20-2022 23:40-0500 Diastolic blood pressure 81 mm[Hg] Dr. Hitesh Dai Work Phone: 0(391)384-081714 [address] 07-20-2022 23:40-0500 Heart rate 80 /min Dr. Hitesh Dai Work Phone: 4(691)316-850214 [address] 07-20-2022 23:40-0500 Respiratory rate 22 /min Dr. Hitesh Dai Work Phone: 5(721)507-514819 [place] [address] 07-20-2022 23:40-0500 SaO2% (BldA) [Mass fraction] 99 % Dr. Hitesh Dai Work Phone: [facility] 07-20-2022 23:40-0500 Systolic blood pressure 143 mm[Hg] Dr. Hitesh Dai Work Phone: [facility] 07-20-2022 19:57-0500 Body height 177.[address] Hitesh Dai Work Phone: [facility] 07-20-2022 19:57-0500 Body mass index (BMI) [Ratio] 16.2 kg/m2 Dr. Hitesh Dai Work Phone: [facility] 07-20-2022 19:57-0500 Body temperature 97.6 [degF] Dr. Hitesh Dai Work Phone: [facility] 07-20-2022 19:57-0500 Body weight 51.[address] Hitesh Dai Work Phone: [facility] 04-30-2022 08:25-0500 Body height 175.26 cm Christopher Chin MA [facility], [facility].; [facility], [facility]. 04-30-2022 08:25-0500 Body mass index (BMI) [Ratio] 16.54 kg/m2 Christopher Chin MA [facility], [facility].; [facility], [facility]. 04-30-2022 08:25-0500 Body surface area Derived from formula 1.61 m2 Christopher Chin MA [facility], [facility].; [facility], [facility]. 04-30-2022 08:25-0500 Body weight 50.8 kg Christopher Chin MA [facility], [facility].; [facility], [facility]. 04-30-2022 08:25-0500 Diastolic blood pressure 77 mm[Hg] Christopher Chin MA [facility], [facility].; [facility], [facility]. Comment on above: Patient Position: Sitting; Cuff Location : Left Arm; Cuff Size: Standard 04-30-2022 08:25-0500 Heart rate 82 /min Christopher Chin MA [facility], [facility]; [facility], [facility]. Comment on above: Pattern: Regular 04-30-2022 08:25-0500 Systolic blood pressure 119 mm[Hg] Christopher Chin MA [facility].; [facility]. Comment on above: Patient Position: Sitting; Cuff Location : Left Arm; Cuff Size: Standard 03-29-2022 11:45-0400 Body temperature 98.6 [degF] Marielena Pierre MD Work Phone: [facility] 03-29-2022 11:45-0400 Diastolic blood pressure 53 mm[Hg] Marielena Pierre MD Work Phone: [facility] 03-29-2022 11:45-0400 Heart rate 59 /min Marielena Pierre MD Work Phone: [facility] 03-29-2022 11:45-0400 Respiratory rate 42 /min Marielena Pierre MD Work Phone: [facility] 03-29-2022 11:45-0400 SaO2% (BldA) [Mass fraction] 99 % Marielena Pierre MD Work Phone: [facility] 03-29-2022 11:45-0400 Systolic blood pressure 96 mm[Hg] Marielena Pierre MD Work Phone: [facility] 03-29-2022 08:30-0400 Body height 177.8 cm Marielena iPerre MD Work Phone: [facility] 03-29-2022 08:30-0400 Body mass index (BMI) [Ratio] 15.55 kg/m2 Marielena Pierre MD Work Phone: [facility] 03-29-2022 08:30-0400 Body weight 49.17 kg Marielena Pierre MD Work Phone: [facility] 03-01-2022 10:45-0400 Body temperature 98.2 [degF] Marielena Pierre MD Work Phone: [facility] 03-01-2022 10:45-0400 Diastolic blood pressure 59 mm[Hg] Marielena Pierre MD Work Phone: [facility] 03-01-2022 10:45-0400 Heart rate 56 /min Marielena Pierre MD Work Phone: [facility] 03-01-2022 10:45-0400 Respiratory rate 20 /min Marielena Pierre MD Work Phone: [facility] 03-01-2022 10:45-0400 SaO2% (BldA) [Mass fraction] 96 % Marielena Pierre MD Work Phone: [facility] 03-01-2022 10:45-0400 Systolic blood pressure 107 mm[Hg] Marielena Pierre MD Work Phone: [facility] 03-01-2022 05:46-0400 Body height 177.8 cm Marielena Pierre MD Work Phone: [facility] 03-01-2022 05:46-0400 Body mass index (BMI) [Ratio] 15.64 kg/m2 Marielena Pierre MD Work Phone: [facility] 03-01-2022 05:46-0400 Body weight 49.44 kg Marielena Pierre MD Work Phone: [facility] 02-14-2022 07:15-0400 Body height 175.26 cm Alex Grey LPN [facility], [facility].; [facility], [facility]. 02-14-2022 07:15-0400 Body mass index (BMI) [Ratio] 16.39 kg/m2 Zoe Stuckey NUCLEAR ENGINEER [facility], [facility].; [facility], [facility]. 02-14-2022 07:15-0400 Body surface area Derived from formula 1.61 m2 [facility], [facility].; [facility] 02-14-2022 07:15-0400 Body weight 50.35 kg Alex Grey LPN [facility] [place] [facility] 02-14-2022 07:15-0400 Diastolic blood pressure 78 mm[Hg] Alex Grey LPN [facility], [employer] [facility]. Comment on above: Patient Position: Sitting; Cuff Location : Left Arm; Cuff Size: Large 02-14-2022 07:15-0400 Heart rate 67 /min Alex Grey LPN [facility] [employer] [facility] [place] [facility] Comment on above: Pattern: Regular 02-14-2022 07:15-0400 Systolic blood pressure 130 mm[Hg] Alex Grey LPN [facility], [employer].; [facility]. Comment on above: Patient Position: Sitting; Cuff Location : Left Arm; Cuff Size: Large 02-08-2022 15:41-0400 Body height 177.8 cm [facility] Neuromodulati on Nurse Work Phone: [facility] 02-08-2022 15:41-0400 Body mass index (BMI) [Ratio] 15.35 kg/m2 [facility] Neuromodulation Nurse Work Phone: [facility] 02-08-2022 15:41-0400 Body weight 48.53 kg [facility] Neuromodulati on Nurse Work Phone: [facility] 02-08-2022 15:41-0400 Diastolic blood pressure 63 mm[Hg] [facility] Neuromodulation Nurse Work Phone: [facility] 02-08-2022 15:41-0400 Heart rate 71 /min [facility] Neuromodulati on Nurse Work Phone: [facility] 02-08-2022 15:41-0400 Systolic blood pressure 96 mm[Hg] [facility] Neuromodulation Nurse Work Phone: [facility] 02-01-2022 11:15-0400 Body temperature 98.49 [degF] Marielena Pierre MD Work Phone: [facility] 02-01-2022 11:15-0400 Diastolic blood pressure 64 mm[Hg] Marielena Pierre MD Work Phone: [facility] 02-01-2022 11:15-0400 Heart rate 55 /min Marielena Pierre MD Work Phone: [facility] 02-01-2022 11:15-0400 Respiratory rate 16 /min Marielena Pierre MD Work Phone: [facility] 02-01-2022 11:15-0400 SaO2% (BldA) [Mass fraction] 96 % Marielena Pierre MD Work Phone: [facility] 02-01-2022 11:15-0400 Systolic blood pressure 106 mm[Hg] Marielena Pierre MD Work Phone: [facility] 02-01-2022 08:05-0400 Body height 177.8 cm Marielena Pierre MD Work Phone: [facility] 02-01-2022 08:05-0400 Body mass index (BMI) [Ratio] 15.44 kg/m2 Marielena Pierre MD Work Phone: [facility] 02-01-2022 08:05-0400 Body weight 48.81 kg Marielena Pierre MD Work Phone: [facility] 01-15-2022 10:00-0400 Body mass index (BMI) [Ratio] 15.84 kg/m2 Megan Campo APRN-MAINTENANCE AND REPAIR WORKER Work Phone: [facility] 01-15-2022 10:00-0400 Body temperature 98.2 [degF] Megan Campo APRN-CN P Work Phone: [facility] 07-26-2022 10:00-0400 Body weight 50.08 kg Megan Campo SOLAR ENERGY SPECIALIST-CN P Work Phone: [facility] 01-15-2022 10:00-0400 Diastolic blood pressure 66 mm[Hg] Megan Bragger SOLAR ENERGY SPECIALIST-MAINTENANCE AND REPAIR WORKER Work Phone: [facility] 01-15-2022 10:00-0400 Heart rate 64 /min Megan Bragger SOLAR ENERGY SPECIALIST-CN P Work Phone: [facility] 01-15-2022 10:00-0400 Respiratory rate 16 /min Megan Bragger SOLAR ENERGY SPECIALIST-CN P Work Phone: [facility] 01-15-2022 10:00-0400 SaO2% (BldA) [Mass fraction] 98 % Megan Bragger SOLAR ENERGY SPECIALIST-MAINTENANCE AND REPAIR WORKER Work Phone: [facility] 01-15-2022 10:00-0400 Systolic blood pressure 104 mm[Hg] Megan Bragger SOLAR ENERGY SPECIALIST-MAINTENANCE AND REPAIR WORKER Work Phone: [facility] 01-15-2022 08:05-0400 Body height 177.8 cm Megan Campo SOLAR ENERGY SPECIALIST-CN P Work Phone: [facility] 11-26-2021 09:07-0400 Body height 180.3 cm Marielena Pierre MD Work Phone: [facility] Comment on above: Verbal 11-26-2021 09:07-0400 Body mass index (BMI) [Ratio] 15.65 kg/m2 Marielena Pierre MD Work Phone: [facility] 11-26-2021 09:07-0400 Body weight 50.89 kg Marielena Pierre MD Work Phone: [facility] Comment on above: Scale 11-26-2021 09:07-0400 Diastolic blood pressure 57 mm[Hg] Marielena Pierre MD Work Phone: [facility] 11-26-2021 09:07-0400 Heart rate 62 /min Marielena Pierre MD Work Phone: [facility] 11-26-2021 09:07-0400 Systolic blood pressure 120 mm[Hg] Marielena Pierre MD Work Phone: [facility] 10-15-2021 14:06-0400 Body height 180.3 cm Marisa Castillo MD Work Phone: [facility] 10-15-2021 14:06-0400 Body mass index (BMI) [Ratio] 14.64 kg/m2 Marisa Castillo MD Work Phone: [facility] 10-15-2021 14:06-0400 Body temperature 98.71 [degF] Marisa Castillo MD Work Phone: [facility] 10-15-2021 14:06-0400 Body weight 47.63 kg Marisa Castillo MD Work Phone: [facility] 10-15-2021 14:06-0400 Diastolic blood pressure 71 mm[Hg] Marisa Castillo MD Work Phone: [facility] 10-15-2021 14:06-0400 Heart rate 69 /min Marisa Castillo MD Work Phone: [facility] 10-15-2021 14:06-0400 Respiratory rate 12 /min Marisa Castillo MD Work Phone: [facility] 10-15-2021 14:06-0400 SaO2% (BldA) [Mass fraction] 100 % Marisa Castillo MD Work Phone: [facility] 10-15-2021 14:06-0400 Systolic blood pressure 131 mm[Hg] Marisa Castillo MD Work Phone: [facility] 10-11-2021 09:36-0400 Body temperature 96.9 [degF] Dr. Hitesh Dai Work Phone: [facility] Work Phone: 10-11-2021 09:36-0400 Diastolic blood pressure 74 mm[Hg] Dr. Hitesh Dai Work Phone: [facility] Work Phone: 10-11-2021 09:36-0400 Heart rate 63 /min Dr. Hitesh Dai Work Phone: [facility] Work Phone: 10-11-2021 09:36-0400 Respiratory rate 16 /min Dr. Hitesh Dai Work Phone: [facility] Work Phone: 10-11-2021 09:36-0400 SaO2% (BldA) [Mass fraction] 100 % Dr. Hitesh Dai Work Phone: [facility] Work Phone: 10-11-2021 09:36-0400 Systolic blood pressure 90 mm[Hg] Dr. Hitesh Dai Work Phone: [facility] Work Phone: 10-11-2021 07:24-0400 Body height 180.[address] Hitesh Dai Work Phone: [facility] Work Phone: 10-11-2021 07:24-0400 Body mass index (BMI) [Ratio] 14.7 kg/m2 Dr. Hitesh Dai Work Phone: [facility] Work Phone: 10-11-2021 07:24-0400 Body weight [address] Hitesh Dai Work Phone: [facility] Work Phone: 09-27-2021 09:09-0400 Body height 175.[address] [facility], [facility].; [facility]. 09-27-2021 09:09-0400 Body mass index (BMI) [Ratio] 15.51 kg/m2 Allyn Bunch [facility] [place].; [facility], [facility] 09-27-2021 09:09-0400 Body surface area Derived from formula 1.[address] [facility].; [facility]. 09-27-2021 09:09-0400 Body weight 47.[address] [facility].; [place] [facility] 09-27-2021 09:09-0400 Diastolic blood pressure 83 mm[Hg] [facility].; [facility]. Comment on above: Patient Position: Sitting; Cuff Location : Right Arm; Cuff Size: Standard 09-27-2021 09:09-0400 Heart rate 88 /min [facility] [place] [facility]. Comment on above: Pattern: Regular 09-27-2021 09:09-0400 Systolic blood pressure 132 mm[Hg] [facility] [place] [facility]. Comment on above: Patient Position: Sitting; Cuff Location : Right Arm; Cuff Size: Standard 09-19-2021 09:05-0400 Body temperature 98.4 [degF] Dr. Hitesh Dai Work Phone: [facility] Work Phone: 09-19-2021 09:05-0400 Diastolic blood pressure 74 mm[Hg] Dr. Hitesh Dai Work Phone: [facility] Work Phone: 09-19-2021 09:05-0400 Heart rate 65 /min Dr. Hitesh Dai Work Phone: [facility] Work Phone: 09-19-2021 09:05-0400 Respiratory rate 16 /min Dr. Hitesh Dai Work Phone: [facility] Work Phone: 09-19-2021 09:05-0400 SaO2% (BldA) [Mass fraction] 100 % Dr. Hitesh Dai Work Phone: [facility] Work Phone: 09-19-2021 09:05-0400 Systolic blood pressure 125 mm[Hg] Dr. Hitesh Dai Work Phone: [facility] Work Phone: 09-17-2021 11:31-0400 Body height 177.[address] Hitesh Dai Work Phone: [facility] Work Phone: 09-17-2021 11:31-0400 Body weight 46.[address] Hitesh Dai Work Phone: [facility] Work Phone: 09-13-2021 16:45-0400 Body mass index (BMI) [Ratio] 14.7 kg/m2 Dr. Hitesh Dai Work Phone: [facility] Work Phone: 09-12-2021 14:30-0400 Body temperature 97.6 [degF] Dr. Hitesh Dai Work Phone: [facility] Work Phone: 09-12-2021 14:30-0400 Diastolic blood pressure 74 mm[Hg] Dr. Hitesh Dai Work Phone: [facility] Work Phone: 09-12-2021 14:30-0400 Heart rate 81 /min Dr. Hitesh Dai Work Phone: [facility] Work Phone: 09-12-2021 14:30-0400 Respiratory rate 16 /min Dr. Hitesh Dai Work Phone: [facility] Work Phone: 09-12-2021 14:30-0400 SaO2% (BldA) [Mass fraction] 96 % Dr. Hitesh Dai Work Phone: [facility] Work Phone: 09-12-2021 14:30-0400 Systolic blood pressure 96 mm[Hg] Dr. Hitesh Dai Work Phone: [facility] Work Phone: 09-12-2021 11:28-0400 Body mass index (BMI) [Ratio] 14.6 kg/m2 Dr. Hitesh Dai Work Phone: [facility] Work Phone: 09-12-2021 11:28-0400 Body weight 46.[address] Hitesh Dai Work Phone: [facility] Work Phone: 08-27-2021 11:43-0500 Diastolic blood pressure 97 mm[Hg] Dr. Hitesh Dai Work Phone: [facility] Work Phone: 08-27-2021 11:43-0500 Heart rate 65 /min Dr. Hitesh Dai Work Phone: [facility] Work Phone: 08-27-2021 11:43-0500 Respiratory rate 16 /min Dr. Hitesh Dai Work Phone: [facility] Work Phone: 08-27-2021 11:43-0500 SaO2% (BldA) [Mass fraction] 98 % Dr. Hitesh Dai Work Phone: [facility] Work Phone: 08-27-2021 11:43-0500 Systolic blood pressure 119 mm[Hg] Dr. Hitesh Dai Work Phone: [facility] Work Phone: 08-27-2021 09:16-0500 Body mass index (BMI) [Ratio] 17.6 kg/m2 Dr. Hitesh Dai Work Phone: [facility] Work Phone: 08-27-2021 09:16-0500 Body temperature 97.2 [degF] Dr. Hitesh Dai Work Phone: [facility] Work Phone: 08-27-2021 09:16-0500 Body weight [address] Hitesh Dai Work Phone: [facility] Work Phone: 06-22-2021 16:06-0500 Diastolic blood pressure 86 mm[Hg] Dr. Hitesh Dai Work Phone: [facility] Work Phone: 06-22-2021 16:06-0500 Heart rate 89 /min Dr. Hitesh Dai Work Phone: [facility] Work Phone: 06-22-2021 16:06-0500 Respiratory rate 18 /min Dr. Hitesh Dai Work Phone: [facility] Work Phone: 06-22-2021 16:06-0500 SaO2% (BldA) [Mass fraction] 99 % Dr. Hitesh Dai Work Phone: [facility] Work Phone: 06-22-2021 16:06-0500 Systolic blood pressure 111 mm[Hg] Dr. Hitesh Dai Work Phone: [facility] Work Phone: 06-22-2021 10:59-0500 Body mass index (BMI) [Ratio] 18.6 kg/m2 Dr. Hitesh Dai Work Phone: [facility] Work Phone: 06-22-2021 10:59-0500 Body temperature 99 [degF] Dr. Hitesh Dai Work Phone: [facility] Work Phone: 06-22-2021 10:59-0500 Body weight 58.[address] Hitesh Dai Work Phone: [facility] Work Phone: 04-26-2021 07:06-0400 Body height 175.26 cm Christopher Munguia LPN [facility], [facility].; [facility]. 04-26-2021 07:06-0400 Body mass index (BMI) [Ratio] 16.24 kg/m2 Christopher Munguia LPN [facility], [facility].; [facility], [facility]. 04-26-2021 07:06-0400 Body surface area Derived from formula 1.6 m2 Christopher Munguia LPN [facility], [facility].; [facility], [facility]. 04-26-2021 07:06-0400 Body weight 49.9 kg Christopher Munguia LPN [facility] 04-26-2021 07:06-0400 Diastolic blood pressure 85 mm[Hg] Christopher Munguia LPN [facility] [employer] [facility] Comment on above: Patient Position: Sitting; Cuff Location : Left Arm; Cuff Size: Standard 04-26-2021 07:06-0400 Heart rate 85 /min Christopher Munguia LPN [facility], [facility].; [place] [facility] Comment on above: Pattern: Regular 04-26-2021 07:06-0400 Systolic blood pressure 116 mm[Hg] Christopher Munguia LPN [facility] [employer] [facility] Comment on above: Patient Position: Sitting; Cuff Location : Left Arm; Cuff Size: Standard 01-31-2021 14:37-0400 Body height 175.26 cm Christopher Munguia LPN [facility], [facility].; [facility], [facility]. 01-31-2021 14:37-0400 Body mass index (BMI) [Ratio] 16.24 kg/m2 Christopher Munguia LPN [facility] [employer] [facility] 01-31-2021 14:37-0400 Body surface area Derived from formula 1.6 m2 Christopher Munguia LPN [facility], [facility].; [employer] [facility], [facility]. 01-31-2021 14:37-0400 Body weight 49.9 kg Christophre Munguia LPN [facility], [facility].; [employer] [facility], [facility]. 01-31-2021 14:37-0400 Diastolic blood pressure 74 mm[Hg] Christopher Munguia LPN [facility], [facility].; [employer] Comment on above: Patient Position: Sitting; Cuff Location : Left Arm; Cuff Size: Standard 01-31-2021 14:37-0400 Heart rate 79 /min Christopher Munguia LPN [facility].; [facility]. Comment on above: Pattern: Regular 01-31-2021 14:37-0400 Systolic blood pressure 128 mm[Hg] Christopher Munguia YULIYA [facility].; [facility]. Comment on above: Patient Position: Sitting; Cuff Location : Left Arm; Cuff Size: Standard 10-25-2020 07:02-0400 Body height 175.26 cm Alex Grey YULIYA [facility], [facility].; [facility]. 10-25-2020 07:02-0400 Body mass index (BMI) [Ratio] 16.24 kg/m2 Alex Grey YULIYA [facility].; [facility]. 10-25-2020 07:02-0400 Body surface area Derived from formula 1.6 m2 Alex Grey YULIYA [facility], [facility].; [employer] [facility]. 10-25-2020 07:02-0400 Body weight 49.9 kg Alex Grey [facility].; [employer] [facility]. 10-25-2020 07:02-0400 Diastolic blood pressure 89 mm[Hg] Alex Grey NUCLEAR ENGINEER [facility].; [employer] [facility]. Comment on above: Patient Position: Sitting; Cuff Location : Left Arm; Cuff Size: Large 10-25-2020 07:02-0400 Heart rate 78 /min Alex Grey [facility]YA [facility].; [employer] [facility]. Comment on above: Pattern: Regular 10-25-2020 07:02-0400 Systolic blood pressure 127 mm[Hg] Alex Grey YULIYA [facility].; [employer] [facility]. Comment on above: Patient Position: Sitting; Cuff Location : Left Arm; Cuff Size: Large 2020 12:04-0400 Body height 175.26 cm Fide Blackman RN [facility], [facility].; [employer] [facility]. 2020 12:04-0400 Body mass index (BMI) [Ratio] 16.1 kg/m2 Fide Blackman RN [facility], [facility].; [facility]. 2020 12:04-0400 Body surface area Derived from formula 1.6 m2 Fide Blackman RN [facility], [facility].; [facility] 2020 12:04-0400 Body weight 49.44 kg Fide Blackman RN [facility], [facility].; [employer] [facility] 2020 12:04-0400 Diastolic blood pressure 73 mm[Hg] Fide Blackman RN [facility], [facility].; [facility] Comment on above: Patient Position: Sitting; Cuff Location : Left Arm; Cuff Size: Standard 2020 12:04-0400 Heart rate 72 /min Fide Blackman RN [facility], [facility].; [employer]. Comment on above: Pattern: Regular 2020 12:04-0400 Systolic blood pressure 122 mm[Hg] Fide Blackman RN [facility].; [employer] [facility]. Comment on above: Patient Position: Sitting; Cuff Location : Left Arm; Cuff Size: Standard 03-14-2020 11:40-0400 Body height 175.26 cm Alex Grey LPN [facility], [facility].; [employer] [facility] 03-14-2020 11:40-0400 Body mass index (BMI) [Ratio] 16.1 kg/m2 Alex Grey LPN [facility], [facility].; [employer] [facility] 03-14-2020 11:40-0400 Body surface area Derived from formula 1.6 m2 Alex Grey LPN [facility], [facility].; [employer] [facility], [employer]. 03-14-2020 11:40-0400 Body temperature 98.4 [degF] Alex Grey LPN [facility], [facility].; [employer] Comment on above: Method: Tympanic 03-14-2020 11:40-0400 Body weight 49.44 kg Alex Grey LPN [facility], [employer]. 03-14-2020 11:40-0400 Diastolic blood pressure 65 mm[Hg] Alex Grey LPN [facility].; [employer]. Comment on above: Patient Position: Sitting; Cuff Location : Left Arm; Cuff Size: Large 03-14-2020 11:40-0400 Heart rate 101 /min Alex Grey LPN [facility].; [employer]. Comment on above: Pattern: Regular 03-14-2020 11:40-0400 Systolic blood pressure 114 mm[Hg] Alex Grey LPN [facility] [employer]. Comment on above: Patient Position: Sitting; Cuff Location : Left Arm; Cuff Size: Large 12-31-2019 14:23-0400 Body height 175.26 cm Hitesh Dai MD Work Phone: [employer].; [employer]. 12-31-2019 14:23-0400 Body mass index (BMI) [Ratio] 16.83 kg/m2 Hitesh Dai MD Work Phone: [employer].; [employer]. 12-31-2019 14:23-0400 Body surface area Derived from formula 1.63 m2 Hitesh Dai MD Work Phone: [employer].; [employer]. 12-31-2019 14:23-0400 Body weight 51.71 kg Hitesh Dai MD Work Phone: [employer].; [employer]. 12-31-2019 14:23-0400 Diastolic blood pressure 78 mm[Hg] Hitesh Dai MD Work Phone: [employer].; [employer]. Comment on above: Patient Position: Sitting; Cuff Location : Left Arm; Cuff Size: Standard 12-31-2019 14:23-0400 Heart rate 90 /min Hitesh Dai MD Work Phone: [employer].; [employer]. Comment on above: Pattern: Regular 12-31-2019 14:23-0400 Systolic blood pressure 128 mm[Hg] Hitesh Dai MD Work Phone: [employer].; [employer]. Comment on above: Patient Position: Sitting; Cuff Location : Left Arm; Cuff Size: Standard 05-18-2019 10:35-0500 Body height 175.26 cm Alex Grey NUCLEAR ENGINEER [employer], [employer]. 05-18-2019 10:35-0500 Body mass index (BMI) [Ratio] 16.98 kg/m2 Alex Grey [facility], [employer]. 05-18-2019 10:35-0500 Body surface area Derived from formula 1.63 m2 Alex Grey [facility] [employer], [employer].; [employer]. 05-18-2019 10:35-0500 Body weight 52.16 kg Alex Grey [facility], [employer]. 05-18-2019 10:35-0500 Diastolic blood pressure 76 mm[Hg] Alex Grey [facility] [employer], [employer]. Comment on above: Patient Position: Sitting; Cuff Location : Left Arm; Cuff Size: Large 05-18-2019 10:35-0500 Heart rate 76 /min Alex Grey NUCLEAR ENGINEER [employer], [employer].; [employer]. Comment on above: Pattern: Regular 05-18-2019 10:35-0500 Systolic blood pressure 117 mm[Hg] Alex Grey [facility], [employer].; [employer]. Comment on above: Patient Position: Sitting; Cuff Location : Left Arm; Cuff Size: Large 09-11-2018 09:14-0400 Body height 175.26 cm Jaye Sher [facility] [employer], [employer].; [employer]. 09-11-2018 09:14-0400 Body mass index (BMI) [Ratio] 16.1 kg/m2 Jaye James MetzgerChristos [facility].; [employer]. 09-11-2018 09:14-0400 Body surface area Derived from formula 1.6 m2 Jaye Ramirez Christos DWY[employer] [facility] [employer]. 09-11-2018 09:14-0400 Body temperature 98.3 [degF] Jaye Ramirez Christos LPN [facility], [facility].; [employer]. Comment on above: Method: Tympanic 09-11-2018 09:14-0400 Body weight 49.44 kg Jaye Sher YULIYA [facility] [employer], [employer].; [employer]. 09-11-2018 09:14-0400 Diastolic blood pressure 79 mm[Hg] Jaye Ramirez Christos YULIYA [employer].; [employer]. Comment on above: Patient Position: Sitting; Cuff Location : Left Arm; Cuff Size: Standard 09-11-2018 09:14-0400 Heart rate 83 /min Jaye Ramirez Christos DWYER [facility] [employer], [employer].; [employer] Comment on above: Pattern: Regular 09-11-2018 09:14-0400 Inhaled oxygen concentration 20 % Jaye Metzgerlabach [facility] [employer], [employer].; [employer]. Comment on above: Room air 09-11-2018 09:14-0400 Inhaled oxygen concentration 21 % Jaye Metzgerroberto DWYER [employer], [employer].; [employer]. Comment on above: Room air 09-11-2018 09:14-0400 SaO2% (BldA) [Mass fraction] 99 % Jaye Felicianogustavo DWYER [employer].; [employer]. 09-11-2018 09:14-0400 Systolic blood pressure 128 mm[Hg] Jaye Sher YULIYA [employer].; [employer]. Comment on above: Patient Position: Sitting; Cuff Location : Left Arm; Cuff Size: Standard 08-24-2018 08:45-0500 Body height 175.26 cm Hitesh Dai MD Work Phone: [employer].; [employer]. 08-24-2018 08:45-0500 Body mass index (BMI) [Ratio] 15.65 kg/m2 Hitesh Dai MD Work Phone: [facility] [employer].; [employer]. 08-24-2018 08:45-0500 Body surface area Derived from formula 1.58 m2 Hitesh Dai MD Work Phone: [facility] [employer].; [employer]. 08-24-2018 08:45-0500 Body temperature 97.9 [degF] Hitesh Dai MD Work Phone: [employer].; [employer]. Comment on above: Method: Tympanic 08-24-2018 08:45-0500 Body weight 48.08 kg Hitesh Dai MD Work Phone: [employer].; [employer]. 08-24-2018 08:45-0500 Diastolic blood pressure 70 mm[Hg] Hitesh Dai MD Work Phone: [employer].; [employer]. Comment on above: Patient Position: Sitting; Cuff Location : Left Arm; Cuff Size: Standard 08-24-2018 08:45-0500 Heart rate 76 /min Hitesh Dai MD Work Phone: [employer].; [employer]. Comment on above: Pattern: Regular 08-24-2018 08:45-0500 Systolic blood pressure 104 mm[Hg] Hitesh Dai MD Work Phone: [employer].; [employer]. Comment on above: Patient Position: Sitting; Cuff Location : Left Arm; Cuff Size: Standard 08-19-2018 10:39-0500 Body height 175.26 cm Alex Grey LPN [facility].; [employer]. 08-19-2018 10:39-0500 Body mass index (BMI) [Ratio] 16.69 kg/m2 Alex Grey LPN [facility] [employer]. 08-19-2018 10:39-0500 Body surface area Derived from formula 1.62 m2 Alex Grey YULIYA [facility].; [facility]. 08-19-2018 10:39-0500 Body temperature 98.4 [degF] Alex Grey LPN [facility], [facility].; [employer], [employer]. Comment on above: Method: Tympanic 08-19-2018 10:39-0500 Body weight 51.26 kg Alex Grey LPN [facility], [facility].; [employer] 08-19-2018 10:39-0500 Heart rate 89 /min Alex Grey LPN [facility], [facility] [employer], [employer]. Comment on above: Pattern: Regular 08-19-2018 10:39-0500 Inhaled oxygen concentration 20 % Alex Grey NUCLEAR ENGINEER [facility].; [employer]. Comment on above: Room air 08-19-2018 10:39-0500 Inhaled oxygen concentration 21 % Alex Grey [facility], [facility].; [employer]. Comment on above: Room air 08-19-2018 10:39-0500 SaO2% (BldA) [Mass fraction] 98 % Alex Grey NUCLEAR ENGINEER [facility] [employer] 2018 15:13-0400 Body height 175.26 cm Jaye Sher LPN [facility], [facility].; [employer] [facility], [employer]. 2018 15:13-0400 Body mass index (BMI) [Ratio] 16.69 kg/m2 Jaye Sher LPN [facility] [employer], [employer]. 2018 15:13-0400 Body surface area Derived from formula 1.62 m2 Jaye Sher LPN [facility], [facility].; [employer], [employer]. 2018 15:13-0400 Body weight 51.26 kg Jaye Sher LPN [facility], [facility].; [employer]. 2018 15:13-0400 Diastolic blood pressure 75 mm[Hg] Jaye Sher NUCLEAR ENGINEER [facility].; [employer]. Comment on above: Patient Position: Sitting; Cuff Location : Left Arm; Cuff Size: Standard 2018 15:13-0400 Heart rate 71 /min Jaye Sher LPN [facility], [facility] [employer] Comment on above: Pattern: Regular 2018 15:13-0400 Inhaled oxygen concentration 20 % Jaye Ramirez Christos [facility], [facility].; [employer]. Comment on above: Room air 2018 15:130400 Inhaled oxygen concentration 21 % Jaye Ramirez Christos NUCLEAR ENGINEER [facility] [employer], [employer]. Comment on above: Room air 2018 15:13-0400 SaO2% (BldA) [Mass fraction] 98 % Jaye Ramirez Christos [facility], [facility].; [employer]. 2018 15:13-0400 Systolic blood pressure 114 mm[Hg] Jaye Sher LPN [facility] [employer]. Comment on above: Patient Position: Sitting; Cuff Location : Left Arm; Cuff Size: Standard 04-06-2018 14:36-0400 Body height 175.26 cm Hitesh Dai MD Work Phone: [facility] [employer].; [employer]. 04-06-2018 14:36-0400 Body mass index (BMI) [Ratio] 16.54 kg/m2 Hitesh Dai MD Work Phone: [employer].; [employer]. 04-06-2018 14:36-0400 Body surface area Derived from formula 1.61 m2 Hitesh Dai MD Work Phone: [employer] [facility].; [employer]. 04-06-2018 14:36-0400 Body weight 50.8 kg Hietsh Dai MD Work Phone: [employer].; [employer]. 04-06-2018 14:36-0400 Diastolic blood pressure 69 mm[Hg] Hitesh Dai MD Work Phone: [employer].; [employer]. Comment on above: Patient Position: Sitting; Cuff Location : Left Arm; Cuff Size: Standard 04-06-2018 14:36-0400 Heart rate 80 /min Hitesh Dai MD Work Phone: [employer], [employer] Comment on above: Pattern: Regular 04-06-2018 14:36-0400 Systolic blood pressure 120 mm[Hg] Hitesh Dai MD Work Phone: [employer].; [employer] Comment on above: Patient Position: Sitting; Cuff Location : Left Arm; Cuff Size: Standard 10-15-2017 07:09-0400 Body height 175.26 cm Alex Grey YULIYA [facility] [email or web address], [employer].; [employer] 10-15-2017 07:09-0400 Body mass index (BMI) [Ratio] 17.57 kg/m2 Alex Grey NUCLEAR ENGINEER [employer] [facility].; [employer] 10-15-2017 07:09-0400 Body surface area Derived from formula 1.66 m2 Alex Archeruckey NUCLEAR ENGINEER [facility] [employer] [facility].; [employer] 10-15-2017 07:09-0400 Body weight 53.98 kg Alex Grey YULIYA [facility] [email or web address], [employer].; [employer] 10-15-2017 07:09-0400 Diastolic blood pressure 71 mm[Hg] Alex Grey NUCLEAR ENGINEER [employer].; [employer] Comment on above: Patient Position: Sitting; Cuff Location : Left Arm; Cuff Size: Large 10-15-2017 07:09-0400 Heart rate 74 /min Alex Grey YULIYA [employer] Comment on above: Pattern: Regular 10-15-2017 07:09-0400 Systolic blood pressure 134 mm[Hg] Alex Grey NUCLEAR ENGINEER [employer] [facility] [employer] Comment on above: Patient Position: Sitting; Cuff Location : Left Arm; Cuff Size: Large 07-14-2017 21:24-0500 Body height 175.26 cm Yasmeen Marina Rodriguez YULIYA [facility].; [employer] 07-14-2017 21:24-0500 Body mass index (BMI) [Ratio] 17.87 kg/m2 Yasmeen Rodriguez LPN [facility] [employer] 07-14-2017 21:24-0500 Body surface area Derived from formula 1.67 m2 Yasmeen Rodriguez LPN [employer].; [employer]. 07-14-2017 21:24-0500 Body temperature 96.7 [degF] Yasmeen Gray Michael [facility].; [employer]. 07-14-2017 21:24-0500 Body weight 54.89 kg Yasmeen Rodriguez NUCLEAR ENGINEER [employer]. 07-14-2017 21:24-0500 Diastolic blood pressure 73 mm[Hg] Yasmeen Rodriguez LPN [employer]. Comment on above: Patient Position: Sitting; Cuff Location : Left Arm; Cuff Size: Standard 07-14-2017 21:24-0500 Heart rate 71 /min Yasmeen Marina Michael DWYER [employer]. Comment on above: Pattern: Regular 07-14-2017 21:24-0500 Systolic blood pressure 118 mm[Hg] Yasmeen Marina Michael DWYER [employer]. Comment on above: Patient Position: Sitting; Cuff Location : Left Arm; Cuff Size: Standard 02-04-2017 15:49-0400 Body height 175.26 cm Araceli Good LPN [facility] [employer], [employer]. 02-04-2017 15:49-0400 Body mass index (BMI) [Ratio] 17.51 kg/m2 Araceli Good LPN [facility] [employer] [facility].; [employer] 02-04-2017 15:49-0400 Body surface area Derived from formula 1.65 m2 Araceli Good LPN [employer] [facility].; [employer] 02-04-2017 15:49-0400 Body weight 53.8 kg Araceli Florentino [facility], [facility].; [employer], [employer]. 02-04-2017 15:49-0400 Diastolic blood pressure 88 mm[Hg] Araceli Good LPN [employer] Comment on above: Patient Position: Sitting; Cuff Location : Left Arm; Cuff Size: Standard 02-04-2017 15:49-0400 Heart rate 74 /min Araceli Good [facility] [employer] [facility].; [employer] Comment on above: Pattern: Regular 02-04-2017 15:49-0400 Systolic blood pressure 123 mm[Hg] Araceli Good [facility].; [employer] Comment on above: Patient Position: Sitting; Cuff Location : Left Arm; Cuff Size: Standard 09-27-2016 10:10-0400 Body weight 53.52 kg Yasmeen Rodriguez [facility].; [employer] 09-27-2016 10:10-0400 Diastolic blood pressure 71 mm[Hg] Yasmeen Rodriguez NUCLEAR ENGINEER [employer], [employer]. Comment on above: Patient Position: Sitting; Cuff Location : Left Arm; Cuff Size: Standard 09-27-2016 10:10-0400 Heart rate 87 /min Yasmeen Rodriguez LPN [employer], [employer]. Comment on above: Pattern: Regular 09-27-2016 10:10-0400 Systolic blood pressure 112 mm[Hg] Yasmeen Rodriguez LPN [employer]. Comment on above: Patient Position: Sitting; Cuff Location : Left Arm; Cuff Size: Standard 04-26-2016 14:01-0400 Body weight 49.31 kg Yasmeen Rodriguez LPN [employer] 04-08-2016 11:32-0400 Body weight 51.26 kg Yasmeen Rodriguez LPN [employer]. 04-08-2016 11:32-0400 Diastolic blood pressure 77 mm[Hg] Yasmeen Rodriguez YULIYA [facility].; [employer] [facility], [employer]. Comment on above: Patient Position: Sitting; Cuff Location : Left Arm; Cuff Size: Standard 04-08-2016 11:32-0400 Heart rate 80 /min Yasmeen Rodriguez NUCLEAR ENGINEER [facility] [employer] Comment on above: Pattern: Regular 04-08-2016 11:32-0400 Systolic blood pressure 118 mm[Hg] Yasmeen Rodriguez NUCLEAR ENGINEER [facility].; [employer] Comment on above: Patient Position: Sitting; Cuff Location : Left Arm; Cuff Size: Standard 03-27-2016 14:06-0400 Body height 175.26 cm Alex Grey NUCLEAR ENGINEER [facility], [facility].; [employer] [facility] 03-27-2016 14:06-0400 Body mass index (BMI) [Ratio] 16.69 kg/m2 Alex Grey NUCLEAR ENGINEER [facility].; [employer] [facility] 03-27-2016 14:06-0400 Body surface area Derived from formula 1.62 m2 Alex Grey [facility], [facility].; [employer] [facility] 03-27-2016 14:06-0400 Body weight 51.26 kg Alex Grey LPN [facility], [facility].; [employer] [facility] 03-27-2016 14:06-0400 Diastolic blood pressure 78 mm[Hg] Alex Grey NUCLEAR ENGINEER [facility].; [employer], [employer]. Comment on above: Patient Position: Sitting; Cuff Location : Left Arm; Cuff Size: Large 03-27-2016 14:06-0400 Heart rate 75 /min Alex Grey LPN [facility], [facility].; [employer] Comment on above: Pattern: Regular 03-27-2016 14:06-0400 Systolic blood pressure 110 mm[Hg] Alex Grey LPN [facility].; [employer] Comment on above: Patient Position: Sitting; Cuff Location : Left Arm; Cuff Size: Large 02-07-2015 17:08-0400 Body height 175.26 cm Tena Reggie Corbett LPN [facility], [facility].; [facility], [facility]. 02-07-2015 17:08-0400 Body mass index (BMI) [Ratio] 16.83 kg/m2 Tena Corbett LPN [facility], [facility].; [facility] 02-07-2015 17:08-0400 Body surface area Derived from formula 1.63 m2 Tena Corbett LPN [facility], [facility].; [facility], [facility]. 02-07-2015 17:08-0400 Body temperature 98.3 [degF] Tena Corbett NUCLEAR ENGINEER [facility], [facility].; [facility], [facility]. Comment on above: Method: Tympanic 02-07-2015 17:08-0400 Body weight 51.71 kg Tena Corbett LPN [facility] [facility], [facility].; [facility], [facility]. 02-07-2015 17:08-0400 Diastolic blood pressure 78 mm[Hg] Tena Corbett LPN [facility], [facility].; [facility], Inc[facility] Comment on above: Patient Position: Sitting; Cuff Location : Right Arm; Cuff Size: Standard 02-07-2015 17:08-0400 Heart rate 65 /min Tena Corbett LPN [facility], [facility].; [facility], [facility] Comment on above: Pattern: Regular 02-07-2015 17:08-0400 Systolic blood pressure 130 mm[Hg] Tena Corbett LPN [facility], [facility].; [facility], [facility]. Comment on above: Patient Position: Sitting; Cuff Location : Right Arm; Cuff Size: Standard 01-17-2014 16:46-0400 Body height 175.26 cm Kristine Augustin LPN [facility], [facility].; [facility], [facility]. 01-17-2014 16:46-0400 Body mass index (BMI) [Ratio] 17.2 kg/m2 Kristine Augustin LPN [facility], [facility].; [facility], [facility]. 01-17-2014 16:46-0400 Body surface area Derived from formula 1.64 m2 Kristine Augustin YULIYA [employer] [facility], [facility].; [employer] [facility], Inc. 01-17-2014 16:46-0400 Body weight 52.84 kg Kristine Augustin YULIYA [facility] [employer] [facility], [facility].; [employer], [employer] 01-17-2014 16:46-0400 Diastolic blood pressure 85 mm[Hg] Kristine Rojaskenrickprice YULIYA [facility], [facility].; [employer], [employer] Comment on above: Patient Position: Sitting; Cuff Location : Left Arm; Cuff Size: Standard 01-17-2014 16:46-0400 Heart rate 87 /min Kristine Rojasmajo DWYER [facility] [employer] [facility], [facility].; [employer], [employer] Comment on above: Pattern: Regular 01-17-2014 16:46-0400 Systolic blood pressure 123 mm[Hg] Kristine Rojasmajo DWYER [facility], [facility].; [employer], [employer]. Comment on above: Patient Position: Sitting; Cuff Location : Left Arm; Cuff Size: Standard 12-08-2013 08:15-0400 Body height 175.26 cm Alex Grey YULIYA [facility], Inc.; [employer], [employer]. 12-08-2013 08:15-0400 Body mass index (BMI) [Ratio] 17.28 kg/m2 Alex Grey NUCLEAR ENGINEER [employer] [facility], [facility].; [employer], [employer]. 12-08-2013 08:15-0400 Body surface area Derived from formula 1.64 m2 Alex Grey YULIYA [employer] [facility], [facility].; [employer], [employer]. 12-08-2013 08:15-0400 Body weight 53.07 kg Alex Grey NUCLEAR ENGINEER [facility].; [employer], [employer]. 12-08-2013 08:15-0400 Diastolic blood pressure 82 mm[Hg] Alex Grey YULIYA [employer] [facility], [facility].; [employer], [employer]. Comment on above: Patient Position: Sitting; Cuff Location : Left Arm; Cuff Size: Large 12-08-2013 08:15-0400 Heart rate 86 /min Alex Grey NUCLEAR ENGINEER [facility], [facility].; [employer] [facility]. Comment on above: Pattern: Regular 12-08-2013 08:15-0400 Systolic blood pressure 114 mm[Hg] Alex Grey NUCLEAR ENGINEER [facility] Inc.; [employer]. Comment on above: Patient Position: Sitting; Cuff Location : Left Arm; Cuff Size: Large 03-29-2013 08:26-0400 Body height 175.26 cm Hitesh Dai MD Work Phone: [facility] Center[facility].; [employer]. 03-29-2013 08:26-0400 Body mass index (BMI) [Ratio] 16.6 kg/m2 Hitesh Dai MD Work Phone: [facility].; [employer]. 03-29-2013 08:26-0400 Body surface area Derived from formula 1.62 m2 Hitesh Dai MD Work Phone: [facility] Center[facility].; [employer]. 03-29-2013 08:26-0400 Body temperature 98.4 [degF] Hitesh Dai MD Work Phone: [employer].; [employer]. Comment on above: Method: Tympanic 03-29-2013 08:26-0400 Body weight 50.98 kg Hitesh Dai MD Work Phone: [facility] Center[facility].; [employer]. 03-29-2013 08:26-0400 Diastolic blood pressure 83 mm[Hg] Hitesh Dai MD Work Phone: [employer].; [employer]. Comment on above: Patient Position: Sitting; Cuff Location : Left Arm; Cuff Size: Standard 03-29-2013 08:26-0400 Heart rate 100 /min Hitesh Dai MD Work Phone: [facility] Center[facility].; [employer]. Comment on above: Pattern: Regular 03-29-2013 08:26-0400 Systolic blood pressure 134 mm[Hg] Hitesh Dai MD Work Phone: [facility].; [employer] [facility], Inc. Comment on above: Patient Position: Sitting; Cuff Location : Left Arm; Cuff Size: Standard 02-15-2013 13:27-0400 Body weight 52.62 kg Yasmeendoug Rodriguez YULIYA [facility], [facility].; [employer], [employer]. 02-15-2013 13:27-0400 Diastolic blood pressure 67 mm[Hg] Yasmeen Marina Rodriguez LPN [facility], [facility].; [employer], [employer] Comment on above: Patient Position: Sitting; Cuff Location : Left Arm; Cuff Size: Standard 02-15-2013 13:27-0400 Heart rate 73 /min Yasmeen Rodriguez LPN [facility], [facility].; [employer] Comment on above: Pattern: Regular 02-15-2013 13:27-0400 Systolic blood pressure 135 mm[Hg] Yasmeen Rodriguez LPN [facility], [facility].; [employer] Comment on above: Patient Position: Sitting; Cuff Location : Left Arm; Cuff Size: Standard 09-04-2012 [id number] Body height 175.26 cm Kristine Augustin LPN [facility], Inc.; [employer] [facility], Inc. 09-04-2012 09:04-0400 Body mass index (BMI) [Ratio] 17.13 kg/m2 Kristine Augustin LPN [employer] [facility], Inc.; [employer] 09-04-2012 [id number] Body surface area Derived from formula 1.64 m2 Kristine Augustin LPN [employer] [facility], Inc.; [employer] [facility], Inc. 09-04-2012 09:04-0400 Body temperature 99.2 [degF] [facility] jeramy [facility], Inc.; [employer], Inc. Comment on above: Method: Tympanic 09-04-2012 [id number] Body weight 52.62 kg Krist[facility].; [employer], Inc. 09-04-2012 09:04-0400 Diastolic blood pressure 80 mm[Hg] Kristine Augustin LPN [facility], [facility].; [facility], [facility]. Comment on above: Patient Position: Sitting; Cuff Location : Left Arm; Cuff Size: Standard 09-04-2012 09:04-0400 Heart rate 123 /min Kristine Augustin YULIYA [facility], [facility].; [facility], Inc. Comment on above: Pattern: Regular 09-04-2012 09:04-0400 Inhaled oxygen concentration 20 % Kristine Augustin [facility], [facility].; [facility], Inc. Comment on above: Room air 09-04-2012 09:04-0400 Inhaled oxygen concentration 21 % [facility], [facility].; [facility], Inc. Comment on above: Room air 09-04-2012 09:04-0400 SaO2% (BldA) [Mass fraction] 99 % Kristine majo [facility], [facility].; [facility], Inc. 09-04-2012 09:04-0400 Systolic blood pressure 111 mm[Hg] Kristine Rojaskenrickprice [facility], [facility].; [facility], Inc. Comment on above: Patient Position: Sitting; Cuff Location : Left Arm; Cuff Size: Standard 06-29-2012 14:31-0500 Body height 175.26 cm Alex Grey NUCLEAR ENGINEER [facility], [facility].; [facility], Inc. 06-29-2012 14:31-0500 Body mass index (BMI) [Ratio] 18.02 kg/m2 Alex Miranda Que [facility], [facility].; [facility], Inc. 06-29-2012 14:31-0500 Body surface area Derived from formula 1.67 m2 Zoe Que [facility], [facility].; [facility], [facility]. 06-29-2012 14:31-0500 Body temperature 97.7 [degF] Alex Grey NUCLEAR ENGINEER [facility], [facility].; [facility], Inc. Comment on above: Method: Tympanic 06-29-2012 14:31-0500 Body weight 55.[address] [facility], Inc.; [employer] 09-09-2011 17:29-0400 Body temperature 97 [degF] Yasmeen Rodriguez NUCLEAR ENGINEER [facility], Inc.; [employer]. 09-09-2011 17:29-0400 Body weight 54.43 kg Yasmeen Rodriguez LPN [facility], [facility].; [employer] 09-09-2011 17:29-0400 Diastolic blood pressure 78 mm[Hg] Yasmeen Rodriguez LPN [facility], [facility].; [employer]. Comment on above: Patient Position: Sitting; Cuff Location : Left Arm; Cuff Size: Standard 09-09-2011 17:29-0400 Heart rate 96 /min Yasmeen Rodriguez LPN [facility], [facility].; [employer] Comment on above: Pattern: Regular 09-09-2011 17:29-0400 Systolic blood pressure 131 mm[Hg] Yasmeen Rodriguez [facility], [facility].; [employer]. Comment on above: Patient Position: Sitting; Cuff Location : Left Arm; Cuff Size: Standard 09-09-2011 17:12-0400 Body height 175.26 cm Alex Grey NUCLEAR ENGINEER [facility], [facility].; [employer], [employer]. 09-26-2010 14:37-0400 Body height 175.26 cm Shazia Drake [facility], Inc.; [employer], [employer] 09-26-2010 14:37-0400 Body mass index (BMI) [Ratio] 17.48 kg/m2 Shazialucio Drake [facility], Inc.; [employer], Inc. 09-26-2010 14:37-0400 Body surface area Derived from formula 1.65 m2 Shazia Drake [facility], Inc.; [employer], [employer]. 09-26-2010 14:37-0400 Body weight 53.71 kg Shazia Drake NUCLEAR ENGINEER [facility], [facility].; [employer]. 09-26-2010 14:37-0400 Diastolic blood pressure 71 mm[Hg] Shazia Drake [facility] [employer] [facility].; [employer]. Comment on above: Patient Position: Sitting; Cuff Location : Left Arm; Cuff Size: Standard 09-26-2010 14:37-0400 Heart rate 65 /min Shazia Drake [facility], [employer] [facility] CenterCert[facility]Point. Comment on above: Pattern: Regular 09-26-2010 14:37-0400 Systolic blood pressure 115 mm[Hg] Shazia Drake [facility], Inc.; [employer]. Comment on above: Patient Position: Sitting; Cuff Location : Left Arm; Cuff Size: Standard 05-04-2010 13:09-0500 Body weight 53.07 kg Yasmeen Rodriguez [facility], [employer].; [employer]. 05-04-2010 13:09-0500 Diastolic blood pressure 73 mm[Hg] Yasmeen Rodriguez [facility], [facility].; [employer]. Comment on above: Patient Position: Sitting; Cuff Location : Left Arm; Cuff Size: Standard 05-04-2010 13:09-0500 Heart rate 82 /min Yasmeen Rodriguez LPN [facility], [employer].; [employer]. Comment on above: Pattern: Regular 05-04-2010 13:09-0500 Systolic blood pressure 114 mm[Hg] Yasmeen Rodriguez [facility], [employer].; [employer]. Comment on above: Patient Position: Sitting; Cuff Location : Left Arm; Cuff Size: Standard Encounters Encounter Date Encounter Type Care Provider Facility Start: 04-04-2025 End: 04-04-2025 ambulatory HITESH PRICE Facility:[facility] Start: 04-01-2025 ambulatory JESUS CROFT Facility: [facility] Start: 03-22-2025 End: 03-22-2025 Emergency department patient visit Dr. Hitesh Dai MD Work Phone: -Emergency Department Work Phone: Start: 03-20-2025 End: 03-20-2025 Emergency department patient visit HITESH DAI [facility] Start: 03-04-2025 End: 03-04-2025 Telemedicine consultation with patient Christopher Nielsondavon SALAZAR Work Phone: Pain Management Start: 03-04-2025 End: 03-04-2025 ambulatory Christopher Dumont APRNClaudiaMAINTENANCE AND REPAIR WORKER Work Phone: Pain Management Comment on above: Chronic abdominal pa in (Primary Dx); Chronic mesenteric ischemia (HCC); Abdominal wall pain Start: 02-22-2025 End: 02-23-2025 ambulatory Jesus Croft MD Work Phone: Pain Management Comment on above: Condition Update Start: 02-09-2025 End: 02-09-2025 Telephone encounter Gio Price Stewartle DO Work Phone: Vascular Surgery Comment on above: Forms (Medical clear ance/medication holding) Start: 02-07-2025 End: 02-07-2025 Orders Hitesh Dai MD Work Phone: [id number] [facility] [employer] Start: 01-30-2025 End: 01-31-2025 ambulatory Jesus Croft MD Work Phone: Pain Management Comment on above: Abdominal pain Start: 01-26-2025 End: 01-26-2025 Telephone follow-up Hitesh Dai MD Work Phone: [employer] Start: 01-24-2025 End: 01-24-2025 Emergency department patient visit REECE SANDERS [facility] Start: 01-05-2025 End: 01-05-2025 Orders Only Andrew Jo DO Work Phone: Pain Management Comment on above: Chronic abdominal pa in (Primary Dx); Chronic mesenteric ischemia (HCC); Abdominal wall pain Start: 01-03-2025 End: 01-03-2025 ambulatory Jesus Croft MD Work Phone: Pain Management Comment on above: Pre-Procedure Instru ctions and Arrival Time Start: 01-03-2025 End: 01-03-2025 E-mail encounter from caregiver Jesus Croft MD Work Phone: Pain Management Start: 12-06-2024 End: 12-06-2024 Patient encounter procedure Jesus Croft MD Work Phone: Pain Management Comment on above: Chronic abdominal pa in (Primary Dx); Chronic mesenteric ischemia (HCC); Abdominal wall pain Start: 12-06-2024 End: 12-06-2024 ambulatory JESUS CROFT Facility:[facility] Start: 12-03-2024 End: 12-03-2024 Patient encounter procedure Hitesh Price MD Work Phone: Gastroenterology Comment on above: Abdominal wall pain (Primary Dx); Dyspepsia Start: 12-03-2024 End: 12-03-2024 ambulatory HITESH PRICE Facility:[facility] Start: 11-03-2024 End: 11-03-2024 Orders Only Lacey Arroyo MD Work Phone: [facility] Comment on above: Epigastric pain (Anne alex Dx); Generalized abdominal pain Start: 11-02-2024 End: 11-03-2024 Telephone encounter Lacey Arroyo MD Work Phone: [facility] Comment on above: Patient Update Start: 10-29-2024 End: 10-29-2024 ambulatory ARELY CRUZ Facility:[facility] Start: 10-29-2024 End: 10-29-2024 ambulatory HITESH DAI Facility:[facility] Start: 10-26-2024 End: 10-27-2024 Telephone encounter Arely Cruz DO Work Phone: [facility] Comment on above: Schedule Surgery Patient Question Start: 10-26-2024 End: 10-26-2024 Patient encounter procedure Gio Richardson DO Work Phone: Vascular Surgery Comment on above: Chronic mesenteric i schemia (HCC) (Primary Dx); Mesenteric artery stenosis (HCC) Start: 10-26-2024 End: 10-26-2024 ambulatory GIO RICHARDSON Facility:[facility] Start: 10-06-2024 End: 10-06-2024 Patient encounter procedure Darvin Garcia MD Work Phone: Gastroenterology Comment on above: Lower abdominal pain Start: 10-06-2024 End: 10-06-2024 ambulatory LACEY ARROYO Facility:[facility] Start: 09-27-2024 End: 09-27-2024 Telephone follow-up Hitesh Dai MD Work Phone: [facility] Start: 09-26-2024 End: 09-26-2024 Emergency department patient visit Dr. Hitesh Dai MD Work Phone: -Emergency Department Work Phone: Start: 09-23-2024 End: 09-23-2024 Medication Hitesh Dai MD Work Phone: [facility] Start: 08-31-2024 End: 08-31-2024 Phys/qhp telephone evaluation 11-20 min Lacey Arroyo MD Work Phone: [facility] Comment on above: Lower abdominal pain (Primary Dx) Start: 08-31-2024 End: 08-31-2024 ambulatory LACEY ARROYO Facility[facility] Start: 08-19-2024 End: 10-19-2024 Follow-up encounter Madalyn Mcmillan MD Work Phone: [place] [facility] Start: 08-13-2024 End: 08-13-2024 Telephone follow-up Hitesh Dai MD Work Phone: [facility] Start: 08-11-2024 End: 08-11-2024 Evaluation and management of inpatient MADALYN MCMILLAN Facility:[facility] Start: 08-10-2024 End: 08-11-2024 Evaluation and management of inpatient LACEY ARROYO Facility:[facility] Start: 08-09-2024 End: 08-10-2024 Emergency department patient visit Dr. Aspen Hurst DO -Emergency Department Work Phone: Start: 08-06-2024 End: 08-06-2024 Telephone follow-up Hitesh Dai MD Work Phone: [facility] Start: 08-05-2024 End: 08-05-2024 Emergency department patient visit Dr. Alexander Hernandez MD -Emergency Department Work Phone: Start: 08-04-2024 End: 08-04-2024 Orders Only Madalyn Mcmillan MD Work Phone: Gastroenterology [place] Comment on above: Abdominal pain, unsp ecified abdominal location (Primary Dx) Start: 08-02-2024 End: 08-02-2024 ambulatory LACEY ARROYO Facility:[facility] Start: 07-28-2024 End: 07-28-2024 Office outpatient new 45 minutes Lacey Arroyo MD Work Phone: [facility] Comment on above: Inflammatory bowel d isease (Primary Dx) Start: 07-28-2024 End: 07-28-2024 ambulatory LACEY ARROYO Facility:[facility] Start: 07-01-2024 End: 07-01-2024 Telephone encounter George Culver MD Work Phone: [facility] Start: 06-24-2024 End: 06-29-2024 Telephone encounter Gio Richardson DO Work Phone: Vascular Surgery Comment on above: Patient Question Start: 06-03-2024 End: 06-03-2024 Patient encounter procedure George Culver MD Work Phone: [facility] Comment on above: Lower abdominal pain (Primary Dx) Start: 06-03-2024 End: 06-03-2024 ambulatory GEORGE CULVER Facility:[facility] Start: 05-28-2024 End: 05-28-2024 Telephone encounter George Culver MD Work Phone: [facility] Start: 05-19-2024 End: 05-19-2024 ambulatory GEORGE CULVER Facility:[facility] Start: 05-18-2024 Emergency department patient visit HITESH DAI Facility:[facility] Start: 05-18-2024 ambulatory GEORGE CULVER Facil ity:[facility] Start: 05-18-2024 End: 05-18-2024 Subsequent hospital visit by physician George Culver MD Work Phone: [facility] Start: 05-11-2024 End: 05-11-2024 Patient encounter procedure Gio Richardson DO Work Phone: Vascular Surgery Comment on above: Mesenteric artery st enosis (HCC) (Primary Dx) Start: 05-11-2024 End: 05-11-2024 ambulatory GIO RICHARDSON Facility:[facility] Start: 05-05-2024 End: 05-05-2024 Periodic preventive med est patient 40-64yrs Hitesh Dai MD Work Phone: [facility] Start: 05-01-2024 End: 05-01-2024 ambulatory [facility] Start: 04-29-2024 End: 04-29-2024 Office outpatient visit 10 minutes Hitesh Dai MD Work Phone: [facility] Start: 04-29-2024 Review Hitesh Dai MD Work Phone: [facility] Start: 04-26-2024 End: 04-26-2024 ambulatory [facility] Start: 04-16-2024 ambulatory [facility] Start: 04-16-2024 End: 04-19-2024 Orders Hitesh Dai MD Work Phone: [facility] Start: 03-31-2024 End: 06-17-2024 Telephone encounter George Culver MD Work Phone: [facility] Comment on above: Procedure Start: 03-08-2024 End: 03-08-2024 Orders Hitesh Dai MD Work Phone: [facility] Start: 02-18-2024 End: 02-18-2024 Telephone encounter George Culver MD Work Phone: [facility] Comment on above: Patient Question Start: 02-10-2024 End: 02-12-2024 Telephone encounter George Culver MD Work Phone: [facility] Comment on above: Results Start: 01-15-2024 End: 01-15-2024 Patient encounter procedure George Culver MD Work Phone: [facility] Comment on above: Diarrhea, unspecifie d type (Primary Dx); LLQ pain Start: 01-15-2024 End: 01-15-2024 ambulatory GEORGE CULVER Facility:[facility] Start: 12-31-2023 End: 12-31-2023 Telephone follow-up Hitesh Dai MD Work Phone: [employer] Start: 12-30-2023 Telephone encounter George Culver MD Work Phone: [facility] Comment on above: Patient Update Start: 11-14-2023 End: 11-14-2023 Telephone follow-up Hitesh Dai MD Work Phone: [employer] Start: 11-12-2023 End: 11-12-2023 Telephone follow-up Hitesh Dai MD Work Phone: [employer] Start: 06-09-2023 End: 06-09-2023 Orders Hitesh Dai MD Work Phone: [employer] Start: 05-08-2023 Telephone encounter George Culver MD Work Phone: [facility] Start: 05-07-2023 End: 05-07-2023 Patient encounter procedure George Culver MD Work Phone: [facility] Comment on above: LUQ pain (Primary Dx ); Black stools; RLQ abdominal pain; Generalized abdominal pain Start: 05-07-2023 End: 05-07-2023 Periodic preventive med est patient 40-64yrs Hitesh Dai MD Work Phone: [employer] Start: 04-25-2023 End: 04-25-2023 Emergency department patient visit Dr. Hitesh Dai Work Phone: [facility] Work Phone: Start: 04-14-2023 End: 04-14-2023 Emergency department patient visit Dr. Hitesh Dai Work Phone: [facility] Work Phone: Start: 04-09-2023 Telephone encounter Sandra Mace RN [facility] Comment on above: Hospital Follow Up; Paedodontist - Other Start: 04-08-2023 End: 04-08-2023 Subsequent hospital visit by physician George Culver MD Work Phone: [facility] Comment on above: LUQ pain [R10.12] Start: 04-02-2023 Telephone encounter Sandra Mace RN [facility] Comment on above: Paedodontist - O ther; Patient Update Start: 03-27-2023 Telephone encounter George Culver MD Work Phone: [facility] Comment on above: Procedure Start: 03-27-2023 End: 03-27-2023 Patient encounter procedure George Culver MD Work Phone: [facility] Comment on above: LUQ pain (Primary Dx ); Black stools; Change in bowel habits; Malnutrition of moderate degree (HCC) Start: 03-25-2023 Telephone encounter Sandra Mace RN [facility] DEPARTMENT Comment on above: Paedodontist - O ther; Patient Update Start: 03-20-2023 End: 03-20-2023 Orders Hitesh Dai MD Work Phone: [facility] Start: 03-13-2023 Telephone encounter Sandra Mace RN [facility] SURGERY DEPARTMENT Comment on above: Paedodontist - O ther; Patient Update Start: 03-11-2023 Telephone encounter Sandra Mace RN [facility] SURGERY DEPARTMENT Comment on above: Paedodontist - O ther; Hospital Follow Up; Patient Update Start: 03-10-2023 Nutrition therapy Azalea de león PA-C Work Phone: [place] [facility] Comment on above: Protein-calorie maln utrition, unspecified severity (HCC) (Primary Dx); Dumping syndrome Start: 03-07-2023 Orders Only Azalea Chapman PA-C Work Phone: [place] [facility] Comment on above: Acute post-operative pain (Primary Dx) Start: 03-05-2023 Telephone encounter Azalea Trina katz PA-C Work Phone: [facility] DEPARTMENT Start: 03-04-2023 End: 03-04-2023 Patient encounter procedure Azalea Ari PA-C Work Phone: [facility] DEPARTMENT Comment on above: Surgery follow-up (P rimary Dx); Diarrhea of presumed infectious origin Start: 02-28-2023 Telephone encounter Sandra Mace RN [facility] DEPARTMENT Comment on above: Patient Question Start: 02-27-2023 Telephone encounter Sandra Mace RN [facility] DEPARTMENT Comment on above: Hospital Follow Up; Paedodontist - Other Start: 02-25-2023 End: 02-25-2023 Telephone follow-up Hitesh Dai MD Work Phone: [facility] Start: 02-19-2023 Telephone encounter Sandra Mace RN [facility] DEPARTMENT Comment on above: Paedodontist - O ther; Hospital Follow Up Start: 02-18-2023 Telephone encounter Ton thrasher MD Work Phone: [facility] [place] Comment on above: New Patient Start: 02-14-2023 Orders Only Azalea CALDERÓN-C Work Phone: [facility] DEPARTMENT Comment on above: Chronic abdominal pa in (Primary Dx) Start: 02-13-2023 Telephone encounter Sandra Mace RN [facility] DEPARTMENT Comment on above: Patient Question; Ca re Coordinator - Other S/P partial gastrect greta (Primary Dx) Refill Request; Refi ll Request Start: 02-06-2023 Telephone encounter Sandra Mace RN [facility] SURGERY DEPARTMENT Comment on above: Paedodontist - O ther; Patient Update Start: 02-04-2023 ambulatory Sandra Mace RN [facility] DEPARTMENT Start: 02-04-2023 E-mail encounter fro m caregiver Sandra Mace RN [facility] Start: 02-04-2023 Telephone encounter Sandra Mace RN [facility] SURGERY DEPARTMENT Comment on above: Patient Question; Ca re Coordinator - Other; Hospital Follow Up Start: 01-15-2023 End: 01-15-2023 Telephone follow-up Hitesh Dai MD Work Phone: [facility] Start: 01-08-2023 Non-patient / Non-visit Dr. Matt Dai Work Phone: [facility] Start: 01-08-2023 End: 01-08-2023 Admission to same day surgery center Dr. Hitesh Dai Work Phone: [facility]-Endoscopy Work Phone: Start: 01-08-2023 End: 01-08-[address] Hitesh Dai Work Phone: [facility] Work Phone: Start: 12-23-2022 Nutrition therapy Mary Thrasher Work Phone: [facility] DEPARTMENT Comment on above: Severe protein-calor ie malnutrition (HCC) (Primary Dx) Start: 12-20-2022 End: 12-20-[address] Hitesh Dai Work Phone: [facility] Work Phone: Start: 12-20-2022 End: 12-20-[address] Hitesh Dai Work Phone: [facility]-Radiology, [facility] Work Phone: Start: 12-17-2022 Orders Only Mary Lewis MD Work Phone: [facility] SURGERY DEPARTMENT Start: 12-16-2022 End: 12-16-2022 ambulatory Mary Lewis MD Work Phone: [facility] Comment on above: Epigastric pain (Anne alex Dx) Start: 12-16-2022 End: 12-16-2022 Telemedicine consultation with patient Mary Lewis MD Work Phone: [facility] Start: 12-11-2022 End: 12-11-2022 Subsequent hospital visit by physician [facility] W[facility] (I-Stat) Work Phone: Cat Scan Comment on above: Atherosclerosis of a alexander (HCC) [I70.0] Start: 11-13-2022 Non-patient / Non-visit Dr. Matt Dai Work Phone: [facility] Inpatient Physicians Work Phone: Start: 11-12-2022 Non-patient / Non-visit Dr. Matt Dai Work Phone: [facility] Inpatient Physicians Work Phone: Start: 11-12-2022 End: 11-13-2022 Evaluation and management of inpatient Dr. Hitesh Dai Work Phone: [facility]-Medical Surgical 3 Work Phone: Start: 10-16-2022 End: 10-16-[address] Hitesh Dai Work Phone: [facility] Gastroenterology Work Phone: Start: 10-10-2022 Non-patient / Non-visit Dr. Matt Dai Work Phone: [facility] Physicians Work Phone: Start: 10-09-2022 Non-patient / Non-visit Dr. Matt Dai Work Phone: [facility] Inpatient Physicians Start: 10-09-2022 End: 10-10-2022 Evaluation and management of inpatient Dr. Hitesh Dai Work Phone: [facility]-Progressive Care Unit Start: 10-09-2022 End: 10-10-[address] Hitesh Dai Work Phone: [facility] Work Phone: Start: 10-03-2022 End: 10-03-2022 Office outpatient visit 15 minutes Hitesh Dai MD Work Phone: [facility] Start: 09-24-2022 Telephone encounter [facility] Provider [facility] BARIATRIC DEPARTMENT Comment on above: Internal Referrals/r esources Start: 08-28-2022 Non-patient / Non-visit Dr. Matt Dai Work Phone: [facility] Inpatient Physicians Start: 08-27-2022 Non-patient / Non-visit Dr. Matt Dai Work Phone: [facility] Start: 08-27-2022 Non-patient / Non-visit Dr. Matt Dai Work Phone: [facility] In[facility] Physicians Start: 08-27-2022 End: 08-27-2022 Non-patient / Non-visit Dr. Hitesh Dai Work Phone: [facility] Start: 08-26-2022 Non-patient / Non-visit Dr. Matt Dai Work Phone: [facility] Start: 08-26-2022 Non-patient / Non-visit Dr. Matt Dai Work Phone: [facility] Phys[facility] Start: 08-26-2022 End: 08-28-2022 Evaluation and management of inpatient Dr. Hitesh Dai Work Phone: [facility]-Medical Surgical 3 Start: 08-25-2022 Non-patient / Non-visit Dr. Matt Dai Work Phone: [facility] Start: 08-24-2022 Non-patient / Non-visit Dr. Matt Dai Work Phone: [facility] Start: 07-20-2022 End: 07-21-2022 Emergency department patient visit Dr. Hitesh Dai Work Phone: [facility]-Emergency Department Start: 05-17-2022 End: 05-17-[address] Hitesh Dai Work Phone: [facility] Work Phone: Start: 05-17-2022 End: 05-17-[address] Hitesh Dai Work Phone: [facility]-Ultrasound, [facility] Start: 04-30-2022 End: 04-30-2022 Periodic preventive med est patient 40-64yrs Hitesh Dai MD Work Phone: [facility] Start: 04-25-2022 End: 04-25-2022 Orders Hitesh Dai MD Work Phone: [facility] Start: 04-22-2022 End: 04-22-[address] Hitesh Dai Work Phone: [facility] Work Phone: Start: 04-22-2022 End: 04-22-[address] Hitesh Dai Work Phone: [facility]-Laboratory Start: 04-22-2022 End: 04-22-[address] Hitesh Dai Work Phone: [facility] Gastroenterology Start: 2022 End: [address] Hitesh Dai Work Phone: [facility] Work Phone: Start: 2022 End: [address] Hitesh Dai Work Phone: [facility]-Radiology, [facility] Start: 04-13-2022 End: 04-13-[address] Hitesh Dai Work Phone: [facility] Work Phone: Start: 04-13-2022 End: 04-13-[address] Hitesh Dai Work Phone: [facility]-Cat Scan, [facility] Start: 03-29-2022 End: 03-29-2022 ambulatory MARIELENA PIERRE Facility:[facility] Start: 03-29-2022 End: 03-29-2022 Subsequent hospital visit by physician Marielena Pierre MD Work Phone: [facility] Comment on above: Cervicalgia Start: 03-13-2022 ambulatory HITESH DAI Facility: [facility] Start: 03-13-2022 End: 03-13-2022 Postop follow up visit related to original px [facility] Neuromodulation Nurse Work Phone: [facility] Comment on above: Cervicalgia (Primary Dx); Chronic pain syndrome; Acute post-operative pain Start: 03-01-2022 End: 03-01-2022 ambulatory MARIELENA PIERRE Facility:[facility] Start: 03-01-2022 End: 03-01-2022 Subsequent hospital visit by physician Marielena Pierre MD Work Phone: [facility] Comment on above: Cervicalgia Start: 02-14-2022 End: 02-14-2022 Office outpatient visit 25 minutes Hitesh Dai MD Work Phone: [employer] [facility] Start: 02-08-2022 ambulatory HITESH DAI Facility: [facility] Start: 02-08-2022 End: 02-08-2022 Patient encounter procedure [facility] Neuromodulation Nurse Work Phone: [facility] Comment on above: DDD (degenerative di sc disease), lumbar (Primary Dx) Start: 02-07-2022 End: 02-07-[address] Hitesh Dai Work Phone: [facility]-Laboratory, Specimen Start: 02-01-2022 End: 02-01-2022 ambulatory MARIELENA PIERRE Facility:[facility] Start: 02-01-2022 End: 02-01-2022 Subsequent hospital visit by physician Marielena Pierre MD Work Phone: [facility] [employer] Comment on above: Cervicalgia Start: 01-22-2022 ambulatory JOSHUA HUDSON Facility :[facility] Start: 01-22-2022 Encounter for other preprocedural examination JOSHUA HUDSON Facility:[facility] Start: 01-21-2022 End: 01-21-2022 Medication Hitesh Dai MD Work Phone: [employer] Start: 01-17-2022 End: 01-17-[address] Hitesh Dai Work Phone: [facility] Gastroenterology Start: 01-17-2022 Telephone encounter Gio D Erick HUFFMAN Work Phone: Vascular Surgery Comment on above: Forms Start: 01-15-2022 ambulatory [facility] Start: 01-15-2022 End: 01-15-2022 Patient encounter status Marielena Pierre MD Work Phone: Imaging [facility] Outpatient Care Start: 01-15-2022 End: 01-15-2022 Subsequent hospital visit by physician Marielena Pierre MD Work Phone: Imaging [facility] Outpatient Care Comment on above: Arrived Start: 01-15-2022 ambulatory [facility] Facility[facility] Start: 01-15-2022 End: 01-15-2022 Office consultation new/estab patient 60 min Megan Campo SOLAR ENERGY SPECIALIST-MAINTENANCE AND REPAIR WORKER Work Phone: Pre-Procedure Evaluation and Assessment [facility] Outpatient Care Comment on above: Preop exam for inter nal medicine (Primary Dx); Cervicalgia; Mesenteric ischemia; Duodenal ulcer; Current smoker; Mixed hyperlipidemia Start: 01-15-2022 End: 01-15-2022 Patient encounter status Megan Campo SOLAR ENERGY SPECIALIST-MAINTENANCE AND REPAIR WORKER Work Phone: Pre-Procedure Evaluation and Assessment [facility] Outpatient Care Start: 01-15-2022 [facility] Start: 01-15-2022 End: 01-15-2022 Subsequent hospital visit by physician Marielena Pierre MD Work Phone: Imaging [facility] Medicine [place] Comment on above: Arrived Start: 11-26-2021 ambulatory [facility] Facility[facility] Start: 11-26-2021 End: 11-26-2021 Office consultation new/estab patient 30 min Marielena Pierre MD Work Phone: [facility] Neuromodulation [place] Outpatient Care Comment on above: Chronic pain syndrom e (Primary Dx); Cervicalgia Start: 10-25-2021 End: 10-25-[address] Hitesh Dai Work Phone: [facility] Gastroenterology Start: 10-15-2021 ambulatory HITESH DAI Facility: [facility] Start: 10-15-2021 End: 10-15-2021 Office outpatient new 45 minutes Marisa Castillo MD Work Phone: [facility] Comment on above: Spinal stenosis of c ervical region (Primary Dx); Neck pain; Facet arthropathy of spine Start: 10-15-2021 End: 10-15-2021 Subsequent hospital visit by physician Marisa Castillo MD Work Phone: [facility] [place] Comment on above: Arrived Start: 10-11-2021 Non-patient / Non-visit Dr. Matt Dai Work Phone: [facility] Start: 10-11-2021 End: 10-11-2021 Admission to same day surgery center Dr. Hitesh Dai Work Phone: [facility]-Endoscopy Start: 10-03-2021 End: 10-03-[address] iHtesh Dai Work Phone: [facility] Start: 10-03-2021 ambulatory HITESH DAI Facility: [facility] Start: 09-27-2021 End: 09-27-2021 Office outpatient visit 15 minutes [facility]itesh Dai MD [facility] Start: 09-20-2021 End: 09-20-2021 Telephone follow-up Hitesh Dai MD Work Phone: [facility] Start: 09-19-2021 Non-patient / Non-visit Dr. Matt Dai Work Phone: [facility] Inpatient Physicians Start: 09-18-2021 Non-patient / Non-visit Dr. Matt Dai Work Phone: [facility] Start: 09-18-2021 Non-patient / Non-visit Dr. Matt Dai Work Phone: [facility] Phys[facility] Start: 09-17-2021 Non-patient / Non-visit Dr. Matt Dai Work Phone: [facility] Start: 09-16-2021 Non-patient / Non-visit Dr. Matt Dai Work Phone: [facility] Start: 09-15-2021 Non-patient / Non-visit Dr. Matt Dai Work Phone: [facility] Start: 09-14-2021 Non-patient / Non-visit Dr. Matt Dai Work Phone: [facility] Start: 09-13-2021 Non-patient / Non-visit Dr. Matt Dai Work Phone: [facility] Start: 09-13-2021 End: 09-19-2021 Evaluation and management of inpatient [facility] Start: 09-12-2021 Non-patient / Non-visit Dr. Matt Dai Work Phone: [facility] Start: 09-12-2021 End: 09-12-2021 Evaluation and management of inpatient Dr. Hitesh Dai [facility] Start: 09-12-2021 Non-patient / Non-visit Dr. Matt Dai Work Phone: [facility] Start: 09-07-2021 End: 09-07-[address] Hitesh Dai Work Phone: [facility]-Radiology, [facility] Start: 08-27-2021 End: 08-27-2021 Emergency department patient visit Dr. Hitesh Dai Work Phone: [facility]-Emergency Department Start: 08-25-2021 End: 08-25-[address] Hitesh Dai Work Phone: [facility]-Laboratory Start: 08-15-2021 End: 02-23-[address] Hitesh Dai Work Phone: [facility]astro[facility] Start: 06-22-2021 End: 06-22-2021 Emergency department patient visit Dr. Hitesh Dai Work Phone: [facility]-Emergency Department Start: 04-26-2021 End: 04-26-2021 Periodic preventive med est patient 40-64yrs Hitesh Dai MD Work Phone: [employer] Start: 04-09-2021 End: 04-09-2021 Medication Hitesh Dai MD Work Phone: [employer] Start: 03-23-2021 End: 03-26-2021 Orders Hitesh Dai MD Work Phone: [employer] Start: 03-13-2021 End: 03-13-2021 Orders Hitesh Dai MD Work Phone: [employer] Start: 03-09-2021 End: 03-09-2021 Telephone follow-up Hitesh Dai MD Work Phone: [employer] Start: 03-06-2021 End: 03-06-2021 Telephone follow-up Hitesh Dai MD Work Phone: [employer] Start: 01-31-2021 End: 01-31-2021 Telephone follow-up Hitesh Dai MD Work Phone: [employer] Start: 01-31-2021 End: 01-31-2021 Office outpatient visit 15 minutes Hitesh Dai MD Work Phone: [employer] Start: 01-25-2021 End: 01-25-2021 Telephone follow-up Hitesh Dai MD Work Phone: [employer] Start: 12-06-2020 End: 12-06-2020 Telephone follow-up Hitesh Dai MD Work Phone: [employer] Start: 10-25-2020 End: 10-25-2020 Office outpatient visit 25 minutes Hitesh Dai MD Work Phone: [employer] Start: 08-24-2020 End: 08-24-2020 Medication Hitesh Dai MD Work Phone: [employer] Start: 04-18-2020 End: 04-18-2020 Telephone follow-up Hitesh Dai MD Work Phone: [employer] Start: 2020 End: 2020 Periodic preventive med est patient 40-64yrs Hitesh Dai MD Work Phone: [employer] Start: 03-29-2020 End: 03-29-2020 Telephone follow-up Hitesh Dai MD Work Phone: [employer] Start: 03-27-2020 End: 03-27-2020 Orders Hitesh Dai MD Work Phone: [employer] Start: 03-14-2020 End: 03-14-2020 Patient encounter procedure Hitesh Dai MD Work Phone: [employer] Start: 01-11-2020 End: 01-11-2020 Orders Hitesh Dai MD Work Phone: [employer] Start: 01-11-2020 End: 01-11-2020 Telephone follow-up Hitesh Dai MD Work Phone: [employer] Start: 12-31-2019 End: 12-31-2019 Office outpatient visit 15 minutes Hitesh Dai MD Work Phone: [employer] Start: 12-27-2019 End: 12-27-2019 Medication Hitesh Dai MD Work Phone: [employer] Start: 12-27-2019 End: 12-27-2019 Medication Hitesh Dai MD Work Phone: [employer] Start: 08-12-2019 End: 08-12-2019 Telephone follow-up Hitesh Dai MD Work Phone: [employer] Start: 07-26-2019 End: 07-26-2019 Medication Hitesh Dai MD Work Phone: [employer] Start: 05-18-2019 End: 05-18-2019 Initial preventive medicine new patient 40-64yrs Hitesh Dai MD Work Phone: [employer] Start: 04-22-2019 End: 04-22-2019 Telephone follow-up Hitesh Dai MD Work Phone: [employer] Start: 04-21-2019 End: 04-21-2019 Orders Hitesh Dai MD Work Phone: [employer] Start: 03-02-2019 End: 03-02-2019 Orders Hitesh Dai MD Work Phone: [employer] Start: 01-18-2019 End: 01-22-2019 Orders Hitesh Dai MD Work Phone: [employer] Start: 01-07-2019 End: 01-07-2019 Telephone follow-up Hitesh Dai MD Work Phone: [employer] Start: 12-11-2018 End: 12-11-2018 Telephone follow-up Hitesh Dai MD Work Phone: [employer] Start: 09-11-2018 End: 09-11-2018 Office outpatient visit 15 minutes Hitesh Dai MD Work Phone: [employer] Start: 08-28-2018 End: 08-28-2018 Medication Hitesh Dai MD Work Phone: [employer] Start: 08-24-2018 End: 08-24-2018 Office outpatient visit 15 minutes Hitesh Dai MD Work Phone: [employer] Start: 08-19-2018 End: 08-19-2018 Office outpatient visit 15 minutes Hitesh Dai MD Work Phone: [employer] Start: 08-19-2018 End: 08-19-2018 Telephone follow-up Hitesh Dai MD Work Phone: [employer] Start: 07-29-2018 End: 07-29-2018 Telephone follow-up Hitesh Dai MD Work Phone: [employer] Start: 06-08-2018 End: 06-08-2018 Telephone follow-up Hitesh Dai MD Work Phone: [employer] Start: 05-05-2018 End: 05-05-2018 Telephone follow-up Hitesh Dai MD Work Phone: [employer] Start: 04-30-2018 End: 04-30-2018 Orders Hitesh Dai MD Work Phone: [employer] Start: 2018 End: 2018 Periodic preventive med est patient 40-64yrs Hitesh Dai MD Work Phone: [employer] Start: 04-13-2018 End: 04-13-2018 Medication Hitesh Dai MD Work Phone: [employer] Start: 04-13-2018 End: 04-13-2018 Orders Hitesh Dai MD Work Phone: [employer] Start: 04-06-2018 End: 04-06-2018 Orders Hitesh Dai MD Work Phone: [employer] Start: 04-06-2018 End: 04-06-2018 Office outpatient visit 15 minutes Hitesh Dai MD Work Phone: [employer] Start: 10-15-2017 End: 10-15-2017 Office outpatient visit 15 minutes Hitesh Dai MD Work Phone: [employer] Start: 09-23-2017 End: 09-23-2017 Medication Hitesh Dai MD Work Phone: [employer] Start: 09-05-2017 End: 09-05-2017 Orders Hitesh Dai MD Work Phone: [employer] Start: 07-14-2017 End: 07-19-2017 Office outpatient visit 15 minutes Hitesh Dai MD Work Phone: [employer] Start: 07-01-2017 End: 07-01-2017 Telephone follow-up Hitesh Dai MD Work Phone: [employer] Start: 06-30-2017 End: 06-30-2017 Telephone follow-up Hitesh Dai MD Work Phone: [employer] Start: 02-04-2017 End: 02-04-2017 Periodic preventive med est patient 40-64yrs Hitesh Dai MD Work Phone: [employer] Start: 01-15-2017 End: 01-16-2017 Orders Hitesh Dai MD Work Phone: [employer] Start: 09-27-2016 End: 09-27-2016 Office outpatient visit 15 minutes Hitesh Dai MD Work Phone: [employer] Start: 09-24-2016 End: 09-24-2016 Medication Hitesh Dai MD Work Phone: [employer] Start: 09-09-2016 End: 09-09-2016 Medication Hitesh Dai MD Work Phone: [employer] Start: 08-01-2016 End: 08-01-2016 Patient encounter procedure Hitesh Dai MD Work Phone: [employer] Start: 05-01-2016 End: 05-01-2016 Orders Hitesh Dai MD Work Phone: [employer] Start: 04-26-2016 End: 04-26-2016 Office outpatient visit 15 minutes Hitesh Dai MD Work Phone: [employer]. Start: 2016 End: 2016 Orders Hitesh Dai MD Work Phone: [employer] Start: 04-08-2016 End: 04-08-2016 Orders Hitesh Dai MD Work Phone: [employer] Start: 04-08-2016 End: 04-08-2016 Office outpatient visit 15 minutes Hitesh Dai MD Work Phone: [employer] Start: 04-01-2016 End: 04-01-2016 Orders Hitesh Dai MD Work Phone: [employer] Start: 03-27-2016 End: 03-27-2016 Orders Hitesh Dai MD Work Phone: [employer] Start: 03-27-2016 End: 03-27-2016 Office outpatient visit 15 minutes Hitesh Dai MD Work Phone: [employer] Start: 02-07-2015 End: 02-08-2015 Office outpatient visit 15 minutes Hitesh Dai MD Work Phone: [employer] Start: 01-17-2014 End: 01-17-2014 Patient encounter procedure Hitesh Dai MD Work Phone: [employer] Start: 12-08-2013 End: 12-08-2013 Patient encounter procedure Hitesh Dai MD Work Phone: [employer] Start: 12-07-2013 End: 12-07-2013 Nursing evaluation of patient and report Hitesh Dai MD Work Phone: [employer] Start: 11-19-2013 End: 11-19-2013 Orders Hitesh Dai MD Work Phone: [employer] Start: 11-17-2013 End: 11-17-2013 Medication Hitesh Dai MD Work Phone: [employer] Start: 03-30-2013 End: 03-30-2013 Patient encounter procedure Hitesh Dai MD Work Phone: [employer] Start: 03-29-2013 End: 03-29-2013 Patient encounter procedure Hitesh Dai MD Work Phone: [employer] Start: 02-15-2013 End: 02-15-2013 Patient encounter procedure Hitesh Dai MD Work Phone: [employer] Start: 09-04-2012 End: 09-04-2012 Patient encounter procedure Hitesh Dai MD Work Phone: [employer] Start: 06-29-2012 End: 06-29-2012 Patient encounter procedure Hitesh Dai MD Work Phone: [employer] Start: 11-12-2011 End: 11-12-2011 Medication Hitesh Dai MD Work Phone: [employer] Start: 09-09-2011 End: 09-09-2011 Patient encounter procedure Hitesh Dai MD Work Phone: [employer] Start: 02-20-2011 End: 02-20-2011 Medication Hitesh Dai MD Work Phone: [employer] Start: 10-16-2010 End: 10-16-2010 Orders Hitesh Dai MD Work Phone: [employer] Start: 10-16-2010 End: 10-16-2010 Medication Hitesh Dai MD Work Phone: [employer] Start: 09-26-2010 End: 09-26-2010 Patient encounter procedure Hitesh Dai MD Work Phone: [employer] Start: 05-21-2010 End: 05-21-2010 Orders Hitesh Dai MD Work Phone: [employer] Start: 05-09-2010 End: 05-09-2010 Orders Hitesh Dai MD Work Phone: [employer] Start: 05-04-2010 End: 05-04-2010 Patient encounter procedure Hitesh Dai MD Work Phone: [employer] Procedures Date Procedure Procedure Detail Performing Clinician Start: 03-22-2025 Radiologic exam chest [address] Hitesh Dai MD Work Phone: Start: 03-22-[address] Hitesh Dai MD Work Phone: Start: 09-26-2024 Computed tomography of abdomen and pelvis with intravenous contrast Dr. Hitesh Dai MD Work Phone: Start: 08-11-2024 End: 08-11-2024 Colonoscopy Hitesh Dai MD Work Phone: Comment on above: Polyps removed. Repeat based off patholo gy. Start: 08-09-2024 Computed tomography of abdomen and pelvis with contrast Dr. Hitesh Dai MD Work Phone: Start: 08-05-2024 MRI of lower extremity Dr. Hitesh Thrasher Work Phone: Start: 08-05-2024 Plain x-ray of pelvis and lower extremity Dr. Hitesh Dai MD Work Phone: Start: 05-19-2024 End: 05-19-2024 Colonoscopy George Culver MD Work Phone: Comment on above: Polyps removed. Repeat based off patholo gy. Start: 05-05-2024 End: 05-03-2024 Depression screening Hitesh Dai MD Work Phone: Start: 05-05-2024 End: 05-05-2024 Flu imm no admin doc jocelyne Hitesh Thrasher Work Phone: Start: 05-05-2024 End: 05-03-2024 Pos clin depres scrn f/u doc Hitesh sotelo MD Work Phone: Start: 05-05-2024 End: 05-05-2024 Pt falls assess docd w/o fall/injury past year Hitesh Dai MD Work Phone: Start: 05-05-2024 End: 05-03-2024 Scr dep neg, no plan reqd Hitesh Dai MD Work Phone: Start: 05-01-2024 PSA screening HITESH DAI Comment on above: Performed By: #### [id number] #### [facility],[address] [place] [address] Start: 04-16-2024 End: 04-16-2024 Lipid panel results documented & reviewed Christopher Munguia LPN Comment on above: TC 135 HDL 62 LDL 62 TRI 53 Start: 03-23-2024 End: 03-23-2024 Comprehensive metabolic 2000 panel - Serum or Plasma Christopher Munguia LPN Comment on above: 88 Start: 03-23-2024 End: 03-23-2024 Prostate specific antigen measurement Christopher Munguia LPN Comment on above: 0.85 Start: 05-07-2023 End: 05-07-2023 Depression screening Hitesh Dai MD Work Phone: Start: 05-07-2023 End: 05-07-2023 Flu imm no admin doc jocelyne Hitesh Thrasher Work Phone: Start: 05-07-2023 End: 05-07-2023 Scr dep neg, no plan reqd Hitesh Dai MD Work Phone: Start: 04-25-2023 Computed tomography of abdomen and pelvis with intravenous contrast Dr. Hitesh Dai Work Phone: Start: 04-14-2023 Computed tomography of abdomen and pelvis with intravenous contrast Dr. Hitesh Dai Work Phone: Start: 03-20-2023 End: 03-20-2023 Comprehensive metabolic 2000 panel - Serum or Plasma Christopher Munguia LPN Comment on above: 89 Start: 03-20-2023 End: 03-20-2023 Lipid panel results documented & reviewed Christopher Munguia LPN Start: 01-17-2023 End: 01-17-2023 Gastrectomy Christopher Munguia LPN Start: 01-08-[address] Hitesh Dai Work Phone: Start: 12-20-2022 Diagnostic radiography of upper gastrointestinal tract with serial films Dr. Hitesh Dai Work Phone: Start: 12-11-2022 Ct angio abd&plvis cntrst mtrl w/wo cntrst img Mary Lewis MD Work Phone: Start: 11-12-2022 Computed tomography angiography of abdominal and/or pelvic blood vessel Dr. Hitesh Dai Work Phone: Start: 10-10-2022 Computed tomography angiography of abdominal and/or pelvic blood vessel Dr. Hitesh Dai Work Phone: Start: 08-27-[address] Hitesh Evans wn Work Phone: Start: 07-20-2022 Computed tomography of abdomen and pelvis with intravenous contrast Dr. Hitesh Dai Work Phone: Start: 05-17-[address] Hitesh sotelo Work Phone: Start: 05-17-[address] Hitesh Dai Work Phone: Start: 04-30-2022 End: 04-30-2022 Depression screening Dewey Hernandez PA-C Work Phone: Start: 04-30-2022 End: 04-30-2022 Scr dep neg, no plan reqd Dewey Bustilloe tler PA-C Work Phone: Start: 04-26-2022 End: 04-26-2022 Prostate specific antigen measurement Christopher Munguia LPN Comment on above: 0.48 Start: 04-26-2022 End: 04-26-2022 Thyrotropin [Units/volume] in Serum or Plasma Christopher Munguia LPN Comment on above: 1.95 Start: 2022 Radiologic examination of upper gastrointestinal tract and small bowel with serial films Dr. Hitesh Dai Work Phone: Start: 04-13-[address] Hitesh Dai Work Phone: Start: 03-01-2022 Radex spine cervical 2 or 3 views Marielena Pierre MD Work Phone: Start: 02-08-2022 Follow-up visit Follow-up HITESH DAI Start: 02-01-2022 Radex spine cervical 2 or 3 views Mejia Lawrence SOLAR ENERGY SPECIALIST-MAINTENANCE AND REPAIR WORKER Work Phone: Start: 02-01-2022 ABORH TYPE RECONFIRMATION Humberto AREVALO Start: 02-01-2022 Glucose measurement, blood Marielena Pierre MD Work Phone: Start: 01-15-2022 Antibody screen Megan Campo SOLAR ENERGY SPECIALIST-MAINTENANCE AND REPAIR WORKER Work Phone: Start: 01-15-2022 Antibody screen HITESH DAI Comment on above: Performed By: #### XMPO #### [facility] ([facility]) [address] [place] [id number] Start: 01-15-2022 Radiologic exam chest 2 views Megan james SOLAR ENERGY SPECIALIST-MAINTENANCE AND REPAIR WORKER Work Phone: Start: 01-15-2022 CBC AND ELECTRONIC DIFF Megan Campo SOLAR ENERGY SPECIALIST-MAINTENANCE AND REPAIR WORKER Work Phone: Start: 01-15-2022 Complete blood count with white cell differential, automated Megan Campo SOLAR ENERGY SPECIALIST-MAINTENANCE AND REPAIR WORKER Work Phone: Start: 01-15-2022 Creatinine blood Megan Campo SOLAR ENERGY SPECIALIST-MAINTENANCE AND REPAIR WORKER Work Phone: Start: 01-15-2022 EXTRA LIGHT BLUE TOP Megan Campo SOLAR ENERGY SPECIALIST-MAINTENANCE AND REPAIR WORKER Work Phone: Start: 01-15-2022 PTT WITH MIXING STUDY Megan Campo SOLAR ENERGY SPECIALIST-MAINTENANCE AND REPAIR WORKER Work Phone: Start: 01-15-2022 End: 01-15-2022 Drug test def 1-7 classes Megan Campo SOLAR ENERGY SPECIALIST-MAINTENANCE AND REPAIR WORKER Work Phone: Start: 01-15-2022 Urnls dip stick/tablet reagent auto microscopy Megan Campo SOLAR ENERGY SPECIALIST-MAINTENANCE AND REPAIR WORKER Work Phone: Start: 10-15-2021 Radex entir thrc lmbr crv sac spi w/skull 2/3 vw Marisa Castillo MD Work Phone: Start: 10-11-2021 End: 10-11-2021 Screening for malignant neoplasm of large intestine Christopher Munguia LPN Comment on above: Dr. Medina, polyps removed Start: 10-11-[address] Hitesh Dai Work Phone: Start: 10-03-2021 MRI of cervical spine with contrast Dr. Hitesh Dai Work Phone: Start: 09-18-[address] Hitesh Dai Work Phone: Start: 09-13-2021 End: 09-13-[address] Hitesh Dai Work Phone: Start: 09-13-2021 Computed tomography angiography of abdominal and/or pelvic blood vessel Dr. Hitesh Dai Work Phone: Start: 09-12-2021 End: 09-12-[address] Hitesh Dai Work Phone: Start: 09-12-2021 Computed tomography of abdomen and pelvis with intravenous contrast Dr. Hitesh Dai Work Phone: Start: 09-07-2021 Plain X-ray of shoulder Dr. Hitesh Dai Work Phone: Start: 08-25-2021 End: 08-25-[address] Miguel Dai Work Phone: Start: 08-25-[address] Hitesh Dai Work Phone: Start: 08-25-2021 End: 08-25-[address] Hitesh Dai Work Phone: Start: 06-22-2021 CT of abdominal vascular structures Dr. Hitesh Dai Work Phone: Start: 04-26-2021 End: 04-26-2021 Depression screening Hitesh Dai MD Work Phone: Start: 04-26-2021 End: 04-26-2021 Flu imm no admin doc jocelyne Hitesh Thrasher Work Phone: Start: 04-26-2021 End: 04-26-2021 Scr dep neg, no plan reqd Hitesh Dai MD Work Phone: Start: 2020 End: 2020 Depression screening Hitesh Dai MD Work Phone: Start: 2020 End: 2020 Flu imm no admin doc jocelyne Hitesh Thrasher Work Phone: Start: 2020 End: 2020 Pos clin depres scrn f/u doc Hitesh sotelo MD Work Phone: Start: 05-18-2019 End: 05-18-2019 Depression screening Hitesh Dai MD Work Phone: Start: 05-18-2019 End: 05-18-2019 Flu imm no admin doc jocelyne Hitesh Thrasher Work Phone: Start: 05-18-2019 End: 05-18-2019 Pos clin depres scrn f/u doc Hitesh sotelo MD Work Phone: Start: 05-18-2019 End: 05-18-2019 Scr dep neg, no plan reqd Hitesh Dai MD Work Phone: Start: 01-20-2019 End: 01-20-2019 Colonoscopy Christopher Chin MA Start: 01-20-2019 End: 01-20-2019 Endoscopy Christopher Chin MA Start: 08-19-2018 End: 08-19-2018 Promethazine hcl injection Hitesh Dai MD Work Phone: Start: 04-13-2018 End: 04-14-2018 Radiologic exam chest 2 views Hitesh boyce MD Work Phone: Start: 10-15-2017 End: 10-15-2017 Body mass index documented Hitesh Dai MD Work Phone: Start: 06-27-2017 Lipid 1996 panel - Serum or Plasma ie Ari PA-C Work Phone: Start: 04-08-2016 End: 04-15-2016 Mri spinal canal cervical w/o & w/contr matrl Hitesh Dai MD Work Phone: Start: 03-27-2016 End: 04-01-2016 Mri any jt upper extremity w/o contrast michell Hitesh Dai MD Work Phone: Start: 01-17-2014 End: 01-19-2014 Radex hand 2 views Beth Holt PA-C Work Phone: Start: 03-30-2013 End: 12-07-2013 Colonoscopy flx dx w/collj spec when pfrmd Fide Gaffney PA-C Work Phone: Start: 03-30-2013 Colonoscopy George Culver MD Work Phone: Start: 09-04-2012 End: 09-04-2012 Pressurized/nonpressurized inhalation treatment Beth Holt PA-C Work Phone: Start: 05-04-2010 End: 05-04-2010 Dexamethasone sodium phos Hitesh Dai MD Work Phone: Cholecystectomy Christopher bynum MA Comment on above: [address] Hitesh Dai Work Phone: Hemorrhoids surgery Christopher Chin MA Comment on above: [address] Hitesh Dai Work Phone: Mesenteric Stents Christopher nolan MA Comment on above: 2017,2018, 2019 [facility] Neck Fusion Christopher Chin MA Comment on above: 2010 Neck Tumor Christopher Chin MA Comment on above: 1990 Plan of Treatment Date Care Activity Detail Author Start: 05-19-2029 Screening for malignant neoplasm of colon [facility] Start: 05-01-2029 Prostate specific antigen measurement Prostate Cancer Screening Discussion [facility] Start: 10-30-2027 Diabetes Screening Diabetes Screening [facility] Start: 08-11-2027 Diabetes Screening Diabetes Screening [facility] Start: 08-11-2027 Screening for malignant neoplasm of colon [facility] Start: 05-18-2027 Diabetes Screening Diabetes Screening [facility] Start: 04-26-2027 PROSTATE CANCER SCREENING DISCUSSION PROSTATE CANCER SCREENING DISCUSSION [facility] Start: 04-26-2027 Prostate specific antigen measurement Prostate Cancer Screening Discussion [facility] Start: 03-20-2026 Diabetes Screening Diabetes Screening [facility] Start: 02-12-2026 DIABETES SCREEN DIABETES SCREEN [facility] Start: 02-12-2026 Diabetes Screening Diabetes Screening [facility] Start: 02-03-2026 DIABETES SCREEN DIABETES SCREEN [facility] Start: 12-23-2025 DIABETES SCREEN DIABETES SCREEN [facility] Start: 12-02-2025 DIABETES SCREEN DIABETES SCREEN [facility] Start: 05-16-2025 Patient encounter procedure Medical; PHYSICAL - awv [facility]. Start: 16-May-2025 15:00-05:00 MD Hitesh Dai Appointment Request [facility] Start: 04-26-2025 DIABETES SCREEN DIABETES SCREEN [facility] Start: 04-26-2025 End: 04-26-2025 Patient encounter procedure Vasculary Surgery Comment on above: Stenosis of right carotid artery [I65.21 ] follow up Start: 04-18-2025 End: 04-18-2025 Admission to same day surgery center Pain Management Comment on above: BLOCK THORACIC PARAVERTEBRAL SYMPATHETIC W/ C-ARM Start: 04-18-2025 End: 04-18-2025 Injection anes lmbr/thrc paravertbrl sympathetic [facility] Start: 04-18-2025 Subsequent hospital visit by physician Pain Management Comment on above: Chronic abdominal pain [R10.9, G89.29], Chronic mesenteric ischemia (HCC) [K55.1], Abdominal wall pain [R10.9] Start: 04-04-2025 End: 04-04-2025 Follow-up encounter 04/04/2025 3:30 PM EDT [facility] G[facility] [address] [address] Hitesh Price MD [address] [place], [place] [id number] Abdominal Wall Pain 4 month follow up Gastroenterology Comment on above: Abdominal Wall Pain 4 month follow up Start: 03-22-2025 [facility] Start: 03-11-2025 End: 03-11-2025 Admission to same day surgery center 03/11/2025 11:05 AM EDT - 03/11/2025 11:30 AM EDT Surgery Pain Management [address] [id number] [place] [address] [place] [address] Bilateral T9 paravertebral block Pain Management Comment on above: Bilateral T9 paravertebral block Start: 03-11-2025 End: 03-11-2025 Injection anes lmbr/thrc paravertbrl sympathetic BLOCK THORACIC PARAVERTEBRAL SYMPATHETIC Chronic abdominal pain Chronic mesenteric ischemia (HCC) 03/11/2025 11:05 AM EDT [facility] Start: 03-11-2025 Subsequent hospital visit by physician 03/11/2025 11:05 AM EDT Hospital Encounter Pain Management [address] [place] [address] [place] [address] [place] [address] Chronic abdominal pain [R10.9, G89.29], Chronic mesenteric ischemia (HCC) [K55.1] Pain Management Comment on above: Chronic abdominal pain [R10.9, G89.29], Chronic mesenteric ischemia (HCC) [K55.1] Start: 02-21-[address] [facility] Start: 02-07-2025 Comprehensive metabolic panel CMP w/ GFR* (15569) Start: 07-Feb-2025 14:34-04:00 Request [facility] [employer] [facility]. Start: 02-07-2025 Lipid panel LIPID PANEL (45255) Start: 07-Feb-2025 14:34-04:00 Request [employer]. Start: 01-05-2025 End: 01-05-2025 Admission to same day surgery center 01/05/2025 9:39 AM EDT - 01/05/2025 10:04 AM EDT Surgery Pain Management [address] [id number] [place] [address] [place] [id number] Bilateral T9 paravertebral block Pain Management Comment on above: Bilateral T9 paravertebral block Start: 01-05-2025 End: 01-05-2025 Injection anes lmbr/thrc paravertbrl sympathetic [facility] Start: 01-05-2025 Subsequent hospital visit by physician 01/05/2025 9:39 AM EDT Hospital Encounter Pain Management [address] [address] [id number] [place] [address] [place] [id number] Chronic abdominal pain [R10.9, G89.29], Chronic mesenteric ischemia (HCC) [K55.1] Pain Management Comment on above: Chronic abdominal pain [R10.9, G89.29], Chronic mesenteric ischemia (HCC) [K55.1] Start: 12-06-2024 End: 12-06-2024 Patient encounter procedure 12/06/2024 2:30 PM EDT Office Visit Pain Management [address] [id number] [place] [address] [place], [place] [phone] Abdominal wall pain [R10.9] Pain Management Comment on above: Abdominal wall pain [R10.9] Start: 11-08-2024 End: 11-08-2024 Nutrition therapy 11/08/2024 2:30 PM EDT Education Nutrition Therapy [address] [place] [address] Katelyn Lester, VARSHA [address] [place] [address] Torturous colon issues. Also need to gain weight Nutrition Therapy Comment on above: Torturous colon issues. Also need to gai n weight Start: 10-29-2024 End: 10-29-2024 Admission to same day surgery center 10/29/2024 12:20 PM EDT - 10/29/2024 3:05 PM EDT Surgery [facility] [address] [place] [address] Arely Cruz DO [address] [place] [address] ANGIOGRAM MESENTERIC [facility] Comment on above: ANGIOGRAM MESENTERIC Start: 10-29-2024 End: 10-29-2024 Slctv cathj 2nd order abdl pel/lxtr art brnch ANGIOGRAM MESENTERIC Chronic mesenteric ischemia (HCC) 10/29/2024 12:20 PM EDT [facility] Start: 10-29-2024 Subsequent hospital visit by physician 10/29/2024 12:20 PM EDT Hospital Encounter [facility] [address] [place] [address] Arely Cruz, [address] [place] [address] Chronic mesenteric ischemia (HCC) [K55.1] [facility] Comment on above: Chronic mesenteric ischemia (HCC) [K55.1 ] Start: 10-29-2024 End: 10-29-2024 ambulatory 10/29/2024 8:30 AM EDT Results Only Lea Quispe [facility] Laboratory [address] [place] [address] [facility] Start: 10-26-2024 End: 01-25-2025 CBC panel - Blood by Automated count COMPLETE BLOOD COUNT Lab Routine Mesenteric artery stenosis (HCC) Expected: 10/26/2024, Expires: 01/25/2025 [facility] Work Phone: Comment on above: Expected: 10/26/2024, Expires: Start: 10-26-2024 End: 01-25-2025 Comprehensive metabolic 2000 panel - Serum or Plasma COMPREHENSIVE METABOLIC PANEL Lab Routine Mesenteric artery stenosis (HCC) Expected: 10/26/2024, Expires: 01/25/2025 [facility] Comment on above: Expected: 10/26/2024, Expires: Start: 10-26-2024 End: 10-26-2024 Patient encounter procedure Vasculary Surgery Comment on above: US mesteric 6 month F/U Start: 09-26-2024 [facility] Start: 09-03-2024 End: 09-03-2024 Patient encounter procedure 09/03/2024 8:30 AM EDT Office Visit [facility] GENERAL GASTRO DEPARTMENT [address] [place] [address] George Culver MD [address] cecilia [address] [place] [phone] 3 mo fu [facility] Comment on above: 3 mo fu Start: 08-31-2024 End: 08-31-2024 Admission to same day surgery center 08/31/2024 11:00 AM EDT [facility] [address], [facility] [address]rd [place] [address] Lacey Arroyo MD [address] [place], [place] [phone] F/U CT (08/18) video through dox* [facility] Comment on above: F/U CT (08/18) video through dox* Start: 08-18-2024 End: 08-18-2024 Patient encounter procedure RADIO CT [facility] Comment on above: Inflammatory bowel disease [K52.9] ENTEROGRAPHY WITH IV AND ORAL, PT ON PREP SCHED, NEEDS ISTAT// Start: 08-10-2024 [facility] Start: 08-05-2024 [facility] Start: 08-02-2024 End: 08-02-2024 ambulatory 08/02/2024 7:45 AM EST Results Only [facility] [address] [place] [address] [facility] Start: 07-28-2024 End: 07-28-2024 Patient encounter procedure 07/28/2024 2:30 PM EST Office Visit [facility] GENERAL SURGERY DEPARTMENT 1 [facility] [address]rd Floor [place], [place] [phone] Lacey Arroyo MD 1 [place], [place] [phone] ABD Pain Prev Dr. Lewis Patient [facility] Comment on above: ABD Pain Prev Dr. Lewis Patient Start: 07-28-2024 End: 10-27-2024 CREATININE BLD CREATININE BLD Lab Routine Inflammatory bowel disease Expected: 07/28/2024, Expires: 10/27/2024 [facility] Comment on above: Expected: 07/28/2024, Expires: Start: 06-03-2024 End: 06-03-2024 Patient encounter procedure 06/03/2024 9:45 AM EST Office Visit [facility] G[facility] [address] [place] [address] George Culver MD 1 [facility] [address] [place], [place] [phone] follow up [facility] Comment on above: follow up Start: 05-05-2024 Assay of prostate specific antigen total PSA TOTAL (PROSTATE SPECIFIC ANTIGEN) ([id number]) Start: 05-May-2024 Request [facility] Start: 05-05-2024 Comprehensive metabolic panel CMP w/ GFR* (45019) Start: 05-May-2024 Request [employer]. Start: 05-05-2024 Lipid panel LIPID PANEL (15567) Start: 05-May-2024 Request [employer]. Start: 05-05-2024 Patient encounter procedure Medical; PHYSICAL - physical [employer]. Start: 05-May-2024 08:20-05:00 MD Hitesh Dai Appointment Request [employer]. Start: 04-16-2024 Assay of prostate specific antigen total PSA TOTAL (PROSTATE SPECIFIC ANTIGEN) ([id number]) Start: 16-Apr-2024 07:54-04:00 Request [employer]. Start: 04-16-2024 Comprehensive metabolic panel CMP w/ GFR* ([id number]) Start: 16-Apr-2024 07:54-04:00 Request [employer] Start: 04-16-2024 Lipid panel LIPID PANEL ([id number]) Start: 16-Apr-2024 07:54-04:00 Request [employer]. Start: 04-09-2024 End: 04-09-2024 Patient encounter procedure 04/09/2024 10:45 AM EDT Appointment [facility] [address] [facility] [address] [place] [address] George Culver MD 1 [facility] [address] [place], [place] [phone] [facility] Start: 02-22-2024 Covid-19 Vaccine ( season) Covid-[address] () [facility] Start: 02-22-2024 Influenza vaccination Influenza Vaccine (#1) [facility] Start: 02-19-2024 End: 02-19-2024 Patient encounter procedure 02/19/2024 10:30 AM EDT Appointment [facility] [address] [place] [address] Chanda Bolanos MD [address] [place], [place] [id number] [place] [id number] [facility] Start: 01-15-2024 End: 04-15-2024 Calprotectin [Mass/mass] in Stool CALPROTECTIN,FECAL Lab Routine Diarrhea, unspecified type Expected: 01/15/2024, Expires: 04/15/2024 [facility] Comment on above: Expected: 01/15/2024, Expires: Start: 01-15-2024 End: 04-15-2024 PANC ELASTASE, FECAL PANC ELASTASE, FECAL Lab Routine Diarrhea, unspecified type Expected: 01/15/2024, Expires: 04/15/2024 [facility] Work Phone: Comment on above: Expected: 01/15/2024, Expires: Start: 06-23-2023 Behavioral Health Screening Behavioral Health Screening [facility] Start: 06-09-2023 Porphyrins urine quantitation & fractionation [facility] [employer]. Start: 06-09-2023 Assay of porphobilinogen urine quantitative [facility] [employer]. Start: 04-25-2023 [facility] Start: 04-14-2023 [facility] Start: 04-08-2023 End: 03-27-2024 EGD DIAGNOSTIC EGD DIAGNOSTIC Endoscopy Routine LUQ pain Black stools Expected: 04/08/2023, Expires: 03/27/2024 [facility] Work Phone: Comment on above: Expected: 04/08/2023, Expires: Start: 02-21-2023 Covid-19 Vaccine () Covid-[address] () [facility] Start: 02-21-[address] [facility] Start: 01-08-2023 Colonoscopy w/biopsy single/multiple COLONOSCOPY AND BIOPSY [facility] Start: 01-08-2023 Patient discharge [facility] Start: 11-13-2022 Patient discharge [facility] Start: 11-12-2022 Following clinical pathway protocol [facility] Start: 11-12-2022 Ambulation without limitation [facility] Start: 11-12-2022 Assessment of risk of venous thromboembolism [facility] Start: 11-12-2022 Insertion of catheter into peripheral vein [facility] Start: 11-12-2022 Measuring intake and output [facility] Start: 11-12-2022 Providing care according to standard [facility] Start: 11-12-2022 Provision of activity privileges [facility] Start: 11-12-2022 [facility] Start: 11-12-2022 Admission procedure [facility] Start: 11-12-2022 Patient referral to dietitian [facility] Start: 10-10-2022 Patient discharge [facility] Start: 10-09-2022 Following clinical pathway protocol [facility] Start: 10-09-2022 Assessment of risk of venous thromboembolism [facility] Start: 10-09-2022 Inhalation therapy procedure [facility] Start: 10-09-2022 Insertion of catheter into peripheral vein [facility] Start: 10-09-2022 Introduction of urinary catheter [facility] Start: 10-09-2022 Measuring intake and output [facility] Start: 10-09-2022 Oxygen therapy [facility] Start: 10-09-2022 Providing care according to standard [facility] Start: 10-09-2022 Provision of activity privileges [facility] Start: 10-09-2022 Referral to gastroenterology service [facility] Start: 10-09-2022 Referral to service [facility] Start: 10-09-2022 Tobacco use cessation education [facility] Start: 10-09-2022 [facility] Start: 10-09-2022 Admission procedure [facility] Start: 10-09-2022 Patient referral to dietitian [facility] Start: 09-03-2022 Blood chemistry [facility] Start: 09-02-2022 Blood chemistry [facility] Start: 09-01-2022 Blood chemistry [facility] Start: 08-31-2022 Blood chemistry [facility] Start: 08-30-2022 Blood chemistry [facility] Start: 08-29-2022 Blood chemistry [facility] Start: 08-28-2022 Patient discharge [facility] Start: 08-26-2022 Catheterization of vein [facility] Start: 08-26-2022 Referral to gastroenterology service [facility] Start: 08-26-2022 Admission procedure [facility] Start: 08-24-2022 Following clinical pathway protocol [facility] Start: 08-24-2022 Assessment of risk of venous thromboembolism [facility] Start: 08-24-2022 Inhalation therapy procedure [facility] Start: 08-24-2022 Insertion of catheter into peripheral vein [facility] Start: 08-24-2022 Oxygen therapy [facility] Start: 08-24-2022 Providing care according to standard [facility] Start: 08-24-2022 Referral to service [facility] Start: 08-24-2022 Tobacco use cessation education [facility] Start: 08-24-2022 [facility] Start: 08-24-2022 Admission procedure [facility] Start: 06-27-2022 Lipid 1996 panel - Serum or Plasma Lipid Screening [facility] Start: 06-27-2022 Lipid panel Lipid Screening [facility] Start: 06-27-[address] [facility] Start: 06-23-2022 DEPRESSION ASSESSMENT DEPRESSION ASSESSMENT [facility] Start: 04-22-2022 Aldolase [Enzymatic activity/volume] in Serum or Plasma [facility] Work Phone: Start: 04-22-2022 C peptide [Mass/volume] in Serum or Plasma [facility] Work Phone: Start: 04-22-2022 Copper [Moles/volume] in Serum or Plasma [facility] Work Phone: Start: 04-22-2022 IgE [Units/volume] in Serum or Plasma [facility] Work Phone: Start: 04-22-2022 Serum immunofixation [facility] Work Phone: Start: 04-22-2022 [facility] Work Phone: Start: 04-10-2022 End: 04-10-2022 Patient encounter procedure 04/10/2022 Office Visit [facility]surgery [facility] Start: 03-29-2022 End: 03-29-2022 Revision/rmvl peripheral/gastric npgr REVISION REMOVAL NEUROSTIMULATOR GENERATOR GASTRIC OR PERIPHERAL Cervicalgia Chronic pain syndrome 03/29/2022 10:05 AM EDT [facility] Start: 03-29-2022 End: 03-29-2022 Revj/rmvl peripheral neurostimulator electrode REVISION REMOVAL NEUROSTIMULATOR ELECTRODE PERIPHERAL Cervicalgia Chronic pain syndrome 03/29/2022 10:05 AM EDT [facility] Start: 03-13-2022 End: 03-13-2022 Patient encounter procedure [facility] Start: 03-01-2022 End: 03-01-2022 Admission to same day surgery center 03/01/2022 Surgery Multispecialty Marielena Pierre MD [address] [place] [address] [place] [address] Insertion Neurostimulator Electrode Spinal Percutaneous [facility] Comment on above: Insertion Neurostimulator Electrode Spin al Percutaneous Start: 03-01-2022 End: 03-01-2022 Fluoroscopic guidance needle placement add on GUIDANCE FLUOROSCOPIC NEEDLE PLACEMENT ADD-ON PX Cervicalgia Chronic pain syndrome 03/01/2022 8:50 AM EDT [facility] Start: 03-01-2022 End: 03-01-2022 Insj/rplcmt spi npgr dir/induxive coupling INSERTION REPLACEMENT NEUROSTIMULATOR GENERATOR SPINAL Cervicalgia Chronic pain syndrome 03/01/2022 8:50 AM EDT [facility] Start: 03-01-2022 End: 03-01-2022 Prq impltj nstim electrode array epidural INSERTION NEUROSTIMULATOR ELECTRODE SPINAL PERCUTANEOUS Cervicalgia Chronic pain syndrome 03/01/2022 8:50 AM EDT [facility] Start: 03-01-2022 Subsequent hospital visit by physician 03/01/2022 Hospital Encounter Multispecialty Marielena Pierre MD [address] [place] [address] [place] [id number] Cervicalgia [facility] Comment on above: Cervicalgia Start: 03-01-2022 End: 03-01-2022 Fluoroscopic guidance needle placement add on GUIDANCE FLUOROSCOPIC NEEDLE PLACEMENT ADD-ON PX Cervicalgia Chronic pain syndrome 03/01/2022 7:20 AM EDT [facility] Start: 03-01-2022 End: 03-01-2022 Insj/rplcmt spi npgr dir/induxive coupling INSERTION REPLACEMENT NEUROSTIMULATOR GENERATOR SPINAL Cervicalgia Chronic pain syndrome 03/01/2022 7:20 AM EDT [facility] Start: 03-01-2022 End: 03-01-2022 Prq impltj nstim electrode array epidural INSERTION NEUROSTIMULATOR ELECTRODE SPINAL PERCUTANEOUS Cervicalgia Chronic pain syndrome 03/01/2022 7:20 AM EDT [facility] Start: 02-21-2022 Influenza vaccination [facility] Start: 02-08-2022 End: 02-08-2022 Patient encounter procedure 02/08/2022 Office Visit Neurosurgery Neuro Oncology Kristine Lawrence APRN-[address] [place] [address] [facility] Start: 02-01-2022 End: 02-01-2022 Admission to same day surgery center 02/01/2022 Surgery Multispecialty Marielena Pierre MD [address] [place] [address] [place] [address] Insertion Neurostimulator Electrode Spinal Percutaneous - [employer] [facility] Comment on above: Insertion Neurostimulator Electrode Spin al Percutaneous - [employer] Start: 02-01-2022 Subsequent hospital visit by physician 02/01/2022 Hospital Encounter Multispecialty Marielena Pierre MD [address] [place] [address] [place] [phone] Cervicalgia [facility] Per[facility] Comment on above: Cervicalgia Start: 02-01-2022 End: 02-01-2022 Fluoroscopic guidance needle placement add on [facility] Start: 02-01-2022 End: 02-01-2022 Prq impltj nstim electrode array epidural [facility] Start: 01-22-2022 End: 01-22-2022 ambulatory 01/22/2022 Pre-Operative Nurse Assessment [facility]pec[facility] Start: 01-15-2022 End: 02-14-2022 SCREEN: MRSA/MSSA [facility] Comment on above: Expected: 01/15/2022, Expires: 2 Start: 01-15-2022 End: 02-14-2022 URINALYSIS REFLEX TO CULTURE [facility] Comment on above: Expected: 01/15/2022, Expires: 2 Start: 12-31-2021 End: 12-31-2021 Patient encounter procedure 12/31/2021 Appointment Magnetic Resonance Imaging Marielena Pierre MD [address] [place] [address] [place] [address] [facility] Start: 11-26-2021 End: 11-26-2022 MR Thoracic spine WO contrast MRI SPINE THORACIC WITHOUT CONTRAST Imaging Routine Cervicalgia Chronic pain syndrome Expected: 11/26/2021, Expires: 11/26/2022 [facility] Comment on above: Expected: 11/26/2021, Expires: 3 Start: 10-17-2021 COVID-19 VACCINE (3 - Booster for Pfizer series) COVID-19 VACCINE (3 - Booster for Pfizer series) [facility] Start: 10-11-2021 Colonoscopy w/biopsy single/multiple COLONOSCOPY AND BIOPSY [facility] Work Phone: Start: 10-11-2021 Colsc flx w/rmvl of tumor polyp lesion snare tq COLONOSCOPY W/LESION REMOVAL [facility] Work Phone: Start: 10-11-2021 Colsc flx with directed submucosal njx any sbst COLONOSCOPY SUBMUCOUS NJX [facility] Work Phone: Start: 09-12-2021 Egd transoral biopsy single/multiple EGD BIOPSY SINGLE/MULTIPLE [facility] Work Phone: Start: 09-12-2021 Egd transoral control bleeding any method EGD CONTROL BLEEDING ANY [facility] Work Phone: Start: 08-26-2021 DIABETES SCREEN DIABETES SCREEN [facility] Start: 07-14-2021 COVID-19 VACCINE (3 - Booster for Pfizer series) COVID-19 VACCINE (3 - Booster for Pfizer series) [facility] Start: 07-14-2021 COVID-19 VACCINE (3 - Pfizer series) COVID-19 VACCINE (3 - Pfizer series) [facility] Start: 2021 RSV Vaccine (1 - 1-dose 60+ series) RSV Vaccine (1 - 1-dose 60+ series) [facility] Start: 2021 RSV Vaccine (1 - Risk 60-74 years 1-dose series) RSV Vaccine (1 - Risk 60-74 years 1-dose series) [facility] Start: 2016 PROSTATE CANCER SCREENING DISCUSSION PROSTATE CANCER SCREENING DISCUSSION [facility] Start: 2016 Prostate specific antigen measurement Prostate Cancer Screening Discussion [facility] Start: 09-17-2015 PNEUMOCOCCAL (2 - PCV) PNEUMOCOCCAL (2 - PCV) [facility] Start: 09-17-2015 [facility]neum[facility] Start: 09-17-2015 Pneumococcal Vaccine: 50+ (2 of 2 - PCV) Pneumococcal Vaccine: 50+ (2 of 2 - PCV) [facility] Start: 03-30-2014 Screening for malignant neoplasm of colon [facility] Start: 2011 Prostate specific antigen measurement PROSTATE CANCER SCREENING DISCUSSION [facility] Start: 2011 SHINGRIX VACCINE (1 of 2) SHINGRIX VACCINE (1 of 2) [facility] Start: 2011 Zoster vaccine hzv live for subcutaneous use ZOSTER (SHINGLES) VACCINE (1 of 2) [facility] Start: 2006 COLOGUARD (FIT-DNA) COLOGUARD (FIT-DNA) [facility] Start: 2006 Colonoscopy [facility] Start: 2006 COLORECTAL CANCER SCREENING COLORECTAL CANCER SCREENING [facility] Start: [address] [facility] Start: 2006 FECAL OCCULT BLOOD FECAL OCCULT BLOOD [facility] Start: 2006 Screening for malignant neoplasm of colon [facility] Start: [address] [facility] Start: 2001 Fasting lipid profile LIPID SCREENING [facility] Start: 1980 Third diphtheria, tetanus and acellular pertussis (DTaP) vaccination TDAP (ADULT) [facility] Start: [address] [facility] Start: 1979 Anxiety Screening Anxiety Screening [facility] Start: 1979 Depression Screening Depression Screening [facility] Start: 1979 Tetanus vaccination TETANUS [facility] Start: 1976 HIV screening HIV SCREENING DISCUSSION [facility] Start: 1973 Adult depression screening assessment DEPRESSION SCREENING [facility] Start: 1967 PNEUMOCOCCAL VACCINE SERIES (1 - PCV) PNEUMOCOCCAL VACCINE SERIES (1 - PCV) [facility] Start: 1961 COVID-19 VACCINE (#1) COVID-19 VACCINE (#1) [facility] Start: 1961 Hepatitis C antibody, confirmatory test HEPATITIS C VIRUS SCREENING [facility] 5-Hydroxyindoleaceta te [Mass/volume] in 24 hour Urine [facility] Work Phone: Albumin [Moles/volum e] in Serum or Plasma [facility] Work Phone: Albumin/Globulin ratio [facility] Work Phone: Aldolase [Enzymatic activity/volume] in Serum or Plasma [facility] Work Phone: C peptide [Mass/volu me] in Serum or Plasma [facility] Work Phone: Clostridioides diffi cile DNA [Presence] in Unspecified specimen by HELLEN with probe detection [facility] Work Phone: Clostridioides diffi cile toxin genes [Presence] in Stool by HELLEN with probe detection C. DIFFICILE PCR Lab Routine Diarrhea of presumed infectious origin Ordered: 03/04/2023 [facility] Work Phone: Comment on above: Ordered: 03/04/2023 Copper [Moles/volume ] in Serum or Plasma [facility] Work Phone: End: 08-27-2025 CT Small bowel W contrast PO and W contrast IV CT ENTEROGRAPHY W IVCON Radiology Routine Inflammatory bowel disease 1 Occurrences starting 07/28/2024 until 08/27/2025 [facility] Work Phone: Comment on above: 1 Occurrences starting 07/28/2024 until 08/27/2025 Ecg routine ecg w/le ast 12 lds w/i&r CT ELECTROCARDIOGRAM, COMPLETE CT - OFFICE PERFORMED Routine Preop exam for internal medicine Mesenteric ischemia Duodenal ulcer Current smoker Mixed hyperlipidemia Cervicalgia Ordered: 01/15/2022 [facility] Comment on above: Ordered: 01/15/2022 End: 08-04-2025 EGD DIAGNOSTIC EGD DIAGNOSTIC Endoscopy Routine Abdominal pain, unspecified abdominal location 1 Occurrences starting 08/04/2024 until 08/04/2025 [facility] Work Phone: Comment on above: 1 Occurrences starting 08/04/2024 until 08/04/2025 Elastase, pancreatic (el-1), fecal; quantitative [facility] Work Phone: Electrophoresis: [id number] [facility] Work Phone: Electrophoresis: max ma globulin [facility] Work Phone: EXTRA MICRO EXTRA MICRO Flui ds Routine Preop exam for internal medicine Mesenteric ischemia Duodenal ulcer Current smoker Mixed hyperlipidemia Cervicalgia 01/15/2022 11:34 AM EDT [facility] FAT, FECAL QUAL FAT, FECAL QUAL Lab Routine Change in bowel habits Malnutrition of moderate degree (HCC) Ordered: 03/27/2023 [facility] Work Phone: Comment on above: Ordered: 03/27/2023 End: 01-14-2025 Flexible sigmoidoscopy study COLONOSCOPY DIAGNOSTIC Endoscopy Routine Diarrhea, unspecified type LLQ pain 1 Occurrences starting 01/15/2024 until 01/14/2025 [facility] Comment on above: 1 Occurrences starting 01/15/2024 until 01/14/2025 Gastrointestinal pathogens panel - Stool by HELLEN with probe detection STOOL GASTROINTESTINAL PANEL Lab Routine Diarrhea of presumed infectious origin Ordered: 03/04/2023 [facility] Work Phone: Comment on above: Ordered: 03/04/2023 Globulin measurement [facility] Work Phone: IgA [Mass/volume] in Serum or Plasma [facility] Work Phone: IgE [Units/volume] i n Serum or Plasma [facility] Work Phone: IgG [Mass/volume] in Serum or Plasma [facility] Work Phone: IgM [Mass/volume] in Serum or Plasma [facility] Work Phone: Lactoferrin [Presenc e] in Stool by Immunoassay [facility] Work Phone: End: 01-15-2022 MR Thoracic spine [facility] Comment on above: 1 Occurrences starting 01/15/2022 until 01/15/2022 Neutrophil cytoplasm ic Ab.classic [Units/volume] in Serum [facility] Work Phone: Noninvasive ear/puls e oximetry single deter CT NONINVASV OXYGEN SATUR; SINGLE CT - OFFICE PERFORMED Routine Preop exam for internal medicine Mesenteric ischemia Duodenal ulcer Current smoker Mixed hyperlipidemia Cervicalgia Ordered: 01/15/2022 [facility] Comment on above: Ordered: 01/15/2022 P-ANCA measurement [facility] Work Phone: PANC ELASTASE, FECAL PANC ELASTA SE, FECAL Lab Routine Change in bowel habits Ordered: 03/27/2023 [facility] Work Phone: Comment on above: Ordered: 03/27/2023 Patient Education [facility] Work Phone: Patient referral [facility] Work Phone: Porphobilinogen [Mass/time] in 24 hour Urine [facility] Work Phone: Postop follow up vis it related to original px CT SUTURE REMOVAL CT - OFFICE PERFORMED Routine Chronic pain syndrome Cervicalgia Ordered: 03/14/2022 [facility] Comment on above: Ordered: 03/14/2022 PREPARE TO TRANSFUSE OR RED BLOOD CELLS PREPARE TO TRANSFUSE OR RED BLOOD CELLS Blood Bank Routine Preop exam for internal medicine Mesenteric ischemia Duodenal ulcer Current smoker Mixed hyperlipidemia Cervicalgia Ordered: 01/15/[address] [facility] Comment on above: Ordered: 01/15/2022 Protein electrophore sis panel - Serum or Plasma [facility] Work Phone: Protein measurement [facility] Work Phone: End: 03-01-2022 RF Greater than 1 hour [facility] Comment on above: One Time for 1 Occurrences starting 02/2022 until 03/01/2022 End: 02-01-2022 RF Less than 1 hour [facility] Comment on above: One Time for 1 Occurrences starting 01/21 until 02/01/2022 Serum protein electrophoresis [facility] Work Phone: SURGICAL PATHOLOGY [facility] Work Phone: Comment on above: Release Upon Ordering for 1 Occurrences starting 04/08/2023 End: 05-11-2025 US Mesenteric arteries US MESENTERIC ARTERY CMPLT [facility] Vascular Lab Routine Mesenteric artery stenosis (HCC) 1 Occurrences starting 05/11/2024 until 05/11/2025 [facility] Work Phone: Comment on above: 1 Occurrences starting 05/11/2024 until 05/11/2025 End: 01-17-2023 US MESENTERIC ARTERY [facility]T [facility] US MESENTERIC ARTERY [facility] Vascular Lab Routine Chronic mesenteric ischemia (HCC) 1 Occurrences starting 01/17/2022 until 01/17/2023 [facility] Work Phone: Comment on above: 1 Occurrences starting 01/17/2022 until 01/17/2023 End: 01-15-2024 XR UPPER GI SINGLE CONTRAST XR UPPER GI SINGLE CONTRAST Radiology Routine Epigastric pain 1 Occurrences starting 12/16/2022 until 01/15/2024 [facility] Work Phone: Comment on above: 1 Occurrences starting 12/16/2022 until 01/15/2024 [facility] dexAMETHasone so d phos (bulk) 100 % powder Ordered: 04-May-2010 MD Hitesh Dai Intent [facility]. Phenergan 50 mg/ mL injection solution Ordered: 19-Aug-2018 MD Hitesh Dai Intent [facility] Immunizations Immunization Date Immunization Notes Care Provider [facility] 09-16-2014 pneumococcal polysaccharide vaccine, 23 valent Gio Richardson DO Work Phone: [facility] 12-08-2013 measles, mumps and rubella virus vaccine Hitesh Dai MD Work Phone: [facility]. Comment on above: Site: Deltoid Area ( Right)VIS Given: * Measles/Mumps/Rubella (MMR) (10/11/11) 03-27-2009 pneumococcal polysaccharide vaccine, 23 valent Gio Richardson DO Work Phone: 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 2018 Unknown [id number] 2016 Unknown [id number] 1961 Unknown [id number] 2.16.840.1.607195.3.579.2.5 94 1961 Unknown [id number] 2.16.840.1.131965.3.579.2.5 94 1961 Unknown [id number] 2.16.840.1.174110.3.579.2.5 94 1961 Unknown [id number] 2.16.840.1.455832.3.579.2.5 94 1961 Unknown [id number] 2.16.840.1.027719.3.579.2.5 94 1961 Unknown [id number] 2.16.840.1.281056.3.579.2.5 94 1961 Unknown [id number] 2.16.840.1.508056.3.579.2.5 94 1961 Unknown [id number] 2.16.840.1.219842.3.579.2.5 94 1961 Unknown [id number] 2.16.840.1.980516.3.579.2.5 94 1961 Unknown [id number] 2.16.840.1.816009.3.579.2.5 94 1961 Unknown [id number] 2.16.840.1.391692.3.579.2.5 94 1961 Unknown [id number] 2.16.840.1.510328.3.579.2.5 94 1961 Unknown [id number] 2.16.840.1.635853.3.579.2.5 94 1961 Unknown [id number] 2.16.840.1.421246.3.579.2.5 94 1961 Unknown [id number] 2.16.840.1.374752.3.579.2.5 94 1961 Unknown [id number] 2.16.840.1.141090.3.579.2.6 51 1961 Unknown [id number] 2.16.840.1.531301.3.579.2.6 51 1961 Unknown [id number] 2.16.840.1.727560.3.579.2.6 51 1961 Unknown [id number] 2.16.840.1.169803.3.579.2.6 51 1961 Unknown [id number] 2.16.840.1.543373.3.579.2.6 51 Unknown [id number] 2.16.840.1.269532.3.579.2.4 62 Unknown [id number] 2.16.840.1.524799.3.579.2.4 62 Unknown [id number] 2.16.840.1.269740.3.579.2.4 62 Unknown [id number] 2.16.840.1.871214.3.579.2.4 62 Social History Date Type Detail Facility Start: 09-13-2021 End: 04-25-2023 Tobacco smoking status MNIS Unknown if ever smoked [facility] Start: 09-16-2016 None [facility] Start: 09-16-2016 Spouse/ Signif icant Other [facility] Start: 09-16-2016 Cigarettes [facility] Start: 1960 Sex Assigned At Male C [facility] Start: 05-25-2019 End: 03-22-2025 Tobacco smoking status NHIS Smokes tobacco daily [facility] History of tobacco use Cigarette Smoker O [facility] Start: 05-25-2019 End: 05-30-2020 Cigarettes smoked current (pack per day) - Reported 0.5 [facility] Work Phone: Start: 05-25-2019 End: 05-11-2024 Tobacco use and exposure Smokeless tobacco non-user [facility] Start: 10-15-2021 End: 03-29-2022 Alcohol intake Lifetime non-drinker (finding) [facility] Start: 05-25-2019 History SDOH Alcohol Frequency 1 [facility] Start: 1960 Sex Assigned At Not on file O [facility] Start: 01-09-2021 End: 03-04-2025 Alcohol intake Current non-drinker of alcohol (finding) [facility] Start: 02-20-2018 End: 01-13-2023 Tobacco Comment 10-[address] [facility] Start: 05-30-2020 End: 01-25-[address] [facility] Work Phone: Start: 05-24-2012 [address] [facility] Work Phone: Start: 07-29-2019 Sexual orientation Heterosexual (kala wells) [facility] Alcohol Use: Alcohol Use: ; None. [employer] Tobacco Use: Tobacco Use: ; C urrent every day smoker. [employer]; [employer] Has the [employer], or [employer] threatened to shut off services in your home in past 12Mo No [facility] Work Phone: (I/We) worried wheeric er (my/our) food would run out before (I/we) got money to buy more. Never true [facility] Start: 09-26-2024 Sex Male (finding) [facility] Medical Equipment Procedure Code Equipment Code Equipment Original Text Equipment Identifier Dates Stent Icast 6mm 6fr .035in Ptfe 22mm 120cm Tracheobronchial Covered - [id number] Start: 09-19-2016 Comment on above: Description: SMA Stent Icast 6fr 6mm 16mm Tracheobronchial Covered - [id number] Start: 09-19-2016 Comment on above: Description: Celiac Stent Express Ld [employer] 6mm 30mm Metal 27mm 135cm Biliary Otw - [id number] Start: 06-27-2017 Comment on above: Description: SMA Stent Epic 7mm N itinol 20mm 120cm Vascular Self Expand Accepts 6fr Sheath - [id number] Start: 07-30-2018 Comment on above: Description: SMA Lead Neurostimul ator 60cm 5mm Vectris 1x8 Electrode Mri - [id number] Start: 02-01-2022 Neurostimulator Implantable Chronic Pain Rs2 - [id number] Start: 03-01-2022 Plate-05/23/2011 [id number] Start: 05-23-2011 Comment on above: Description: [facility] Goals Date Patient Goal Desired Activity /State Personal health goal Personal health goal Functional Status Date Assessment Result Facility 05-19-2024 Are you deaf, or do you have serious difficulty hearing No 05/19/2024 5:21 PM Kaitlin Rogel RN [facility] 05-19-2024 Are you blind, or do you have serious difficulty seeing, even when wearing glasses No 05/19/2024 5:21 PM Kaitlin Rogel RN [facility] 05-19-2024 Do you have serious difficulty walking or climbing stairs No 05/19/2024 5:21 PM Kaitlin Rogel RN [facility] 05-19-2024 Do you have difficul ty dressing or bathing No 05/19/2024 5:21 PM Kaitlin Rogel, JERILYN [facility] 05-19-2024 Because of a physica l, mental, or emotional condition, do you have difficulty doing errands alone such as visiting a physician's office or shopping No 05/19/2024 5:21 PM Kaitlin Rogel RN [facility] 11-13-2022 Functional status Ambulates [facility] Work Phone: 10-10-2022 Functional status Ambulates;Up ad cruzito [facility] Work Phone: 08-28-2022 Functional status Ambulates;Up ad cruzito [facility] Work Phone: 09-19-2021 Functional status Activity Abili ty Independent [facility] Work Phone: 09-18-2021 Functional status Patient Activity Up ad cruzito [facility] Work Phone: 09-16-2021 Functional status None [facility] Work Phone: 09-12-2021 Functional status Activity Abili ty Independent [facility] Work Phone: 09-12-2021 Functional status Patient Activi ty Ambulates;Up ad cruzito [facility] Work Phone: Mental Status Date Assessment Result Facility 05-19-2024 Because of a physica l, mental, or emotional condition, do you have serious difficulty concentrating, remembering, or making decisions No 05/19/2024 5:21 PM Kaitlin Rogel RN No [facility] 01-08-2023 Cognitive function Voice/Name [facility] Work Phone: 11-13-2022 Cognitive function Anxious;Restless [facility] Work Phone: 10-10-2022 Cognitive function Voice/Name [facility] Work Phone: 08-27-2022 Cognitive function Voice/Name [facility] Work Phone: 10-11-2021 Cognitive function Voice/Name [facility] Work Phone: 09-19-2021 Cognitive function Voice/Name [facility] Work Phone: 09-12-2021 Cognitive function Voice/Name [facility] Work Phone: 08-27-2021 Cognitive function Level Of Cons ciousness Awake;Alert;Appropriate;Fol lows Commands [facility] Work Phone: Clinical Notes 10-15-2021 to 04-04-2025 Christopher Dumont, REBA.MAINTENANCE AND REPAIR WORKER - 03/04/2025 7:34 AM EDTTelephone Encounter - Sirisha Jain RN - 02/23/2025 12:22 PM EDTTelephone Encounter - Sirisha Jain RN - 02/23/2025 12:22 PM EDT Note Date & Type Note Facility 04-04-2025 Note HNO ID: [id number] Author: HITESH PRICE MD Service: ? Author Type: Physician Type: Progress Notes Filed: 04/04/2025 15:55 Note Text: VIRTUAL VISIT FOLLOW UP I have communicated my name and active licensure. The patient's identity and physical location were verified at the time of this visit. Either the patient or their legal technical account representative has been informed of the risks and benefits of -- and alternatives to -- treatment through a remote evaluation and consents to proceed with the evaluation remotely. I had a virtual visit with Mr. Leal today for follow up of abdominal wall pain. UPDATED HISTORY: Recording using [employer] software for draft documentation of the visit was discussed with the patient/authorized technical account representative; all questions welcomed and answered. Patient/authorized technical account representative agreed to proceed The patient is a 64-year-old male with mesenteric artery stents and a history of cholecystectomy, presenting for follow-up of recurrent severe abdominal pain and frequent bowel movements. He describes episodic attacks characterized by severe abdominal pain and frequent, urgent bowel movements that can last from 2 to 6 days. During these episodes, he experiences pain before, during, and after defecation, with bowel movements occurring up to 4 times daily. Between episodes, he remains asymptomatic. He notes that pain is exacerbated by bending at the waist and lying on his left side during episodes, but is less severe when lying on his right side. He has difficulty eating during attacks due to pain, but his appetite returns post-episode, often leading to increased food intake. He received his first set of abdominal wall nerve block injections 3-4 months ago, which provided approximately 10 weeks of significant pain relief. However, about 2-3 weeks after the injections, he began to experience prodromal symptoms, including pain with bending at the waist. He subsequently had several episodes of frequent bowel movements with discomfort but without severe pain. Approximately 2 weeks ago, he experienced a severe episode that required ER evaluation, where he received pain medication. He received his second set of injections last Friday and is awaiting their effect. He reports significant unintentional weight loss, with his weight dropping to 92 lbs during the last episode, despite a high caloric intake. He has tried amitriptyline and mirtazapine in the past, but discontinued both due to excessive sedation. He tolerates Percocet for pain without sedation. PAST MEDICAL HISTORY Diagnosis Date Adenomatous colon [...] Grandfather throat Cancer Maternal Aunt bone SOCIAL HISTORY[1] Current Outpatient Medications Medication Sig Dispense Refill acetaminophen 325 mg-caffeine 40 mg-butalbital 50 mg [...] 1 tablet by mouth daily at bedtime. 30 tablet 2 aspirin 81 mg chewable tablet Take 1 tablet by mouth once daily. 0 No current facility-administered medications for this visit. ALLERGIES Allergen Reactions Omeprazole Other: See Comments Severe Headaches Senna Unknown Bottom lip swelled. Stopped swelling when senna dc REVIEW OF SYSTEMS: PAIN ASSESSMENT: Negative for pain, history of chronic pain, or current treatment for a chronic pain condition. GENERAL: No weight loss, malaise or fevers RESPIRATORY: Negative for cough, hemoptysis, wheezing, COPD, dyspnea or shortness of breath CAR (more content not included)... [facility] 03-22-2025 Discharge summary [facility] 03-22-2025 Radiology Diagnostic study note [facility] Imaging Services [address] [place] [address] Chest PA and Lateral MR#: [id number] Acct: [id number] Name: MINISTERIO LEAL Rep #: [id number] : 1960 M 64 From: Ludmila Barnes MD PCP: Dr. Hitesh Dai MD Status: REG ER Study:Chest PA and Lateral Date of Exam: 03/22/25 Exam# [id number] Ordering Dr: Gianluca Hernandez MD PROCEDURE: CHEST PA AND LATERAL 03/22/2025 REASON FOR EXAM: COUGH TECHNIQUE: Procedure Code: RADCXR Modality: DX Procedure: CHEST PA AND LATERAL COMPARISON: None FINDINGS: Lung volumes are increased. Heart size and mediastinal configuration are withinnormal limits. There is no focal infiltrate or consolidation. There is no pneumothorax or effusion. There is no acute bony abnormality. Hardware is noted in the cervical region. Aortic calcifications are visible. A stent is visible in the upper abdomen. RAD/Chest PA and Lateral IMPRESSION: There are increased lung volumes with no acute infiltrate or consolidation. Reading Location: [facility] CC: Dr. Alexander Hernandez MD; Dr. Hitesh Dai MD ~ Life Skills Instructor: Signed [facility] 03-04-2025 Note HNO ID: [id number] Author: CHRISTOPHER DUMONT APRN.ANDI Service: ? Author Type: Nurse Practitioner Type: Progress Notes Filed: 03/04/2025 08:37 Note Text: Chronic Pain Clinic Virtual Video Encounter Evaluation Ministerio Leal consented to the encounter being held via Zoom Christopher Dumont APRN.MAINTENANCE AND REPAIR WORKER and Ministerio Leal present during telemedicine encounter This is a virtual visit using [employer] Zuvvuom Video Visit. It required patient-provider interaction for [...] Chronic pain Last Annual Visit: 12/06/24 SUBJECTIVE: Ministerio Leal is a 64 year old who presents to [facility] for a follow up appointment. The plan from the last visit on 01/05/25 was: 1) s/p bilateral thoracic paravertebral block at T9 2) RTC as needed for repeat injection if your pain returns 3) The treatment plan was discussed with Mr. Lela. Post procedure instructions were reviewed and he voiced understanding. Since the last visit: Abdominal Pain: - Ministerio Leal reports intermittent, severe abdominal pain described as [...] flares a few times per week - Ministerio has received Bilateral Thoracic Paravertebral Block last [...] Yes 10/26/24 Mesenteric Artery Non-Invasive Vascular Laboratory [facility] Renal or Mesenteric Duplex Bilateral/Complete Date of service/time: 10/26/2024 8:11:22 AM Name: MR. MINISTERIO LEAL Date of : 1960 Age: 64 years Gender: M Clinical Indication Atherosclerosis-other specified arteries. TECHNIQUE -------- A visceral duplex ultrasound examination was performed, including grayscale imaging and color Doppler and spectral Doppler examination of the below mentioned arteries and veins. FINDINGS -------- Aorta proximal PSV: 66 cm/s. EDV: (more content not included)... [facility] 03-04-2025 History of Present illness Narrative Chronic Pain Clinic Virtual Video Encounter Evaluation Ministerio Leal consented to the encounter being held via Zuvvuom Christopher Dumont APRN.MAINTENANCE AND REPAIR WORKER and Ministerio Leal present during telemedicine encounter This is a virtual visit using MyChart Zoom Video Visit. It required patient-provider interaction for the medical decision making as documented below. I have confirmed you are in [place] today, and check in to confirm your consent to be seen virtually. I have communicated my name and active licensure. The patient s identity and physical location were verified at the time of this visit. The patient has been informed of the risks and benefits of -- and alternatives to -- treatment through a remote evaluation and consents to proceed with the evaluation remotely. Date: March 04, 2025 - 7:34 AM Chief Complaint: Chronic pain Last Annual Visit: 12/06/24 SUBJECTIVE: Ministerio Leal is a 64 year old who presents to [facility] for a follow up appointment. The plan from the last visit on 01/05/25 was: 1) s/p bilateral thoracic paravertebral block at T9 2) RTC as needed for repeat injection if your pain returns 3) The treatment plan was discussed with Mr. Leal. Post procedure instructions were reviewed and he voiced understanding. Since the last visit: Abdominal Pain: - Ministerio Leal reports intermittent, severe abdominal pain described as [...] flares a few times per week - Minitserio has received Bilateral Thoracic Paravertebral Block last [...] * < 31st percentile is at least SD worse than population, which may be [...] Yes 10/26/24 Mesenteric Artery Non-Invasive Vascular Laboratory [facility] Renal or Mesenteric Duplex Bilateral/Complete Date of service/time: 10/26/2024 8:11:22 AM Name: MR. MINISTERIO LEAL Date of : 1960 Age: 64 years [...] Technologist: Dariana Herring BA, RVT Ordering physician: GIO RICHARDSON Interpreting physician: TO Avina MD SSMENT/PLAN: [...] Croft on 04/18/25 - Will Coordinate with bottle label inspector to identify if earlier appointment is available for repeat injection; also will request to place patient on cancellation list if nothing sooner or no other available provider. - Patient requesting possible referral for future for someone that can perform the injections closer to his home in [place], advised patient to search for pain management clinics within the [facility] system or contact insurance for covered options near him; explained that a release of care from Dr. Croft would be required to switch pain providers if within [facility]. 3. Chronic mesenteric ischemia (HCC) [...] medical decision making from today Recording using [employer] software for draft documentation of the visit was discussed with the patient/authorized technical account representative; all questions welcomed and answered. Patient/authorized technical account representative agreed to proceed Christopher Dumont APRN.CNP March 04, 2025 documented in this encounter [facility] 02-23-2025 Telephone encounter Note Discussed with Dr. Croft. He suggests that patient make virtual visit to discuss concerns. Sirisha Jain RN [facility] 02-23-2025 Miscellaneous Notes Discussed with Dr. Croft. He suggests that patient make virtual visit to discuss concerns. Sirisha Jain RN documented in this encounter [facility] 02-09-2025 Telephone encounter Note Called [facility] for clarification on form, spoke with [place]. They need medication holding clarification as patient takes ASA and plavix. Form completed and faxed to [phone] Transmission completed Encounter closed [facility] 02-09-2025 Miscellaneous Notes Called [facility] for clarification on form, spoke with [place]. They need medication holding clarification as patient takes ASA and plavix. Form completed and faxed to [phone] Transmission completed Encounter closed Type of form: Medical Clearance/Medication holding for dental treatment and surgery Form received via fax When form is completed, Fax form to [facility] at [phone] Form has been forwarded to AKASH Joshi documented in this encounter [facility] 02-09-2025 Telephone encounter Note Type of form: Medical Clearance/Medication holding for dental treatment and surgery Form received via fax When form is completed, Fax form to [facility] at [phone] Form has been forwarded to AKASH Joshi [facility] 01-31-2025 Telephone encounter Note Patient telephoned to inform staff his abdominal pain was in a flare over the weekend. Patient states he was to let the physician know then have injections. Informed patient he could make appointment with midlevel, patient pleasant cooperative with staff and call transferred to scheduling. Jelly Bragg RN [facility] 01-31-2025 Miscellaneous Notes Patient telephoned to inform staff his abdominal pain was in a flare over the weekend. Patient states he was to let the physician know then have injections. Informed patient he could make appointment with midlevel, patient pleasant cooperative with staff and call transferred to scheduling. Jelly Bragg RN documented in this encounter [facility] 12-06-2024 Instructions Ruddy Carlos MD - 12/06/2024 2:38 PM EDT Thank you for seeing Dr. Croft in the office today. Here is the plan of care based on today's visit: We will schedule you for bilateral T9 paravertebral nerve blocks You will need to hold your plavix for 3 days prior to the procedure documented in this encounter [facility] 12-06-2024 Note HNO ID: [id number] Author: JESUS CROFT MD Service: ? Author Type: Physician Type: Progress Notes Filed: 12/07/2024 11:51 Note Text: [facility] Department New Patient Consultation Referring Physician: Hitesh Price [address] [facility] [address] Chief Complaint: abdominal pain SUBJECTIVE: Ministerio Leal is a 64-year-old male with a history of chronic mesenteric ischemia (on plavix), partial gastrectomy and Chester-en-Y revision for refractory gastric ulcers, presenting for evaluation of chronic abdominal pain. Ministerio reports experiencing abdominal pain since his late teens, initially described as infrequent episodes of severe pain. He recalls being told by his family doctor that he had a nervous stomach and would grow out of it. However, the frequency and severity of the pain have increased with age. 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 Ministerio has a history of chronic mesenteric ischemia [...] [place] [address] 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 [...] Date ADDTL NECK SPINE FUSION 2010 CHOLECYSTECTOMY 2008 COLONOSCOPY 08/11/2024 Tubular Adenomas EGD 12/2022 EGD [...] tobacco: Never Tobacco comments: 10-15 per day (more content not included)... [facility] 12-06-2024 History of Present illness Narrative Images from the original note were not included. [facility] Department New Patient Consultation Referring Physician: Hitesh Price [address] [facility] [address] Chief Complaint: abdominal pain SUBJECTIVE: Ministerio Leal is a 64-year-old male with a history of chronic mesenteric ischemia (on plavix), partial gastrectomy and Chester-en-Y revision for refractory gastric ulcers, presenting for evaluation of chronic abdominal pain. Ministerio reports experiencing abdominal pain since his late teens, initially described as infrequent episodes of severe pain. He recalls being told by his family doctor that he had a nervous stomach and would grow out of it. However, the frequency and severity of the pain have increased with age. 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 Ministerio has a history of chronic mesenteric ischemia [...] [place] [address] 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 [...] EGD DIAGNOSTIC EGD DIAGNOSTIC 03/2023 EGD W/O [facility] SPEC VARICIES INJ 08/11/2024 ESOPHAGOGASTRODUODENOSCOPY TRANSORAL DIAGNOSTIC [...] * < 31st percentile is at least SD worse than population, which may be [...] 101 lb (45.8kg) SpO2 95% BMI 14.49 kg/(m^2). PHYSICAL EXAMINATION: General:well appearing, alert, and in [...] Emphysema Localizer images: No additional findings. ASSESSMENT: Ministerio Leal is a 64-year-old male with a history [...] in decision making. Jesus Croft MD, PhD documented in this encounter [facility] 12-03-2024 Instructions Hitesh Price MD - 12/03/2024 9:59 AM EDT --I suspect that your pain is abdominal wall pain. This is treated by the pain management and they can inject nerve rudolph in the muscle --Start mirtazapine 15mg at night - this can help you regain weight --Return to clinic in 3 months (after Pain Management visit). You can call [phone] to schedule, I would recommend calling 2 months prior to the expected appointment documented in this encounter [facility] 12-03-2024 Note HNO ID: [id number] Author: HITESH PRICE MD Service: ? Author Type: Physician Type: Progress Notes Filed: 12/03/2024 10:03 Note Text: New Patient/Consult REASON FOR VISIT Ministerio Leal is a 64 year old male who is scheduled for abdominal pain at the consult request of Lacey Arroyo. My final recommendations will be communicated back to the requesting physician by the way of the shared medical record, fax, or via US Mail. PRESENTING COMPLAINT AND HISTORY --Recording using [employer] software for draft documentation of the visit was discussed with the patient/authorized technical account representative; all questions welcomed and answered. Patient/authorized technical account representative agreed to proceed HPI: The patient [...] ago, which reportedly showed no abnormalities per studio operation engineer. The patient reports significant weight loss, stating he lost 15 to 20 pounds since Friday, with his usual weight being around 115 pounds. He attributes this to inability to eat during attacks. He also reports severe sleep disruption, stating he has not slept since Friday except for brief periods. 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 (6 weeks ago) Mesenteric Angiogram: No abnormalities [...] a day. hyoscyamine (LEVSIN) 0.125 mg tablet (more content not included)... [facility] 12-03-2024 History of Present illness Narrative New Patient/Consult REASON FOR VISIT Ministerio Leal is a 64 year old male who is scheduled for abdominal pain at the consult request of Lacey Arroyo. My final recommendations will be communicated back to the requesting physician by the way of the shared medical record, fax, or via US Mail. PRESENTING COMPLAINT & HISTORY --Recording using [employer] software for draft documentation of the visit was discussed with the patient/authorized technical account representative; all questions welcomed and answered. Patient/authorized technical account representative agreed to proceed HPI: The patient [...] ago, which reportedly showed no abnormalities per studio operation engineer. The patient reports significant weight loss, stating he lost 15 to 20 pounds since Friday, with his usual weight being around 115 pounds. He attributes this to inability to eat during attacks. He also reports severe sleep disruption, stating he has not slept since Friday except for brief periods. 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 (6 weeks ago) Mesenteric Angiogram: No abnormalities [...] Date ADDTL NECK SPINE FUSION 2010 CHOLECYSTECTOMY 2008 COLONOSCOPY 08/11/2024 Tubular Adenomas EGD 12/2022 EGD DIAGNOSTIC EGD DIAGNOSTIC 03/2023 EGD W/O [facility] SPEC VARICIES INJ 08/11/2024 ESOPHAGOGASTRODUODENOSCOPY TRANSORAL DIAGNOSTIC 09/2014 EGD EXPLORATORY OF ABDOMEN 01/25/2023 evacuation of hematoma EXPLORATORY OF ABDOMEN 01/17/2023 antrectomy and Chesetr-en-Y GJ PAST SURGICAL HISTORY OF 2014 PPH-pierre [...] Drug use: No Comment: used to smoke marijuanna, 3 to 4 days per week REVIEW [...] which included preparing to see the patient, [id number] patient care, completing clinical documentation, obtaining and/or reviewing separately obtained history, performing a medically appropriate examination, counseling and educating the patient/family/caregiver, ordering medications, tests, or procedures, communicating with other HCPs (not separately reported), independently interpreting results (not separately reported), communicating results to the patient/family/caregiver, and care coordination (not separately reported). Hitesh Price MD December 03, 2024 9:20 AM Recording using [employer] software for draft documentation of the visit was discussed with the patient/authorized technical account representative; all questions welcomed and answered. Patient/authorized technical account representative agreed to proceed. documented in this encounter [facility] 11-03-2024 Telephone encounter Note Per Dr. Arroyo, patient should seek a second opinion from GI. Reccomends patient to see Dr. Hitesh Price at [facility]. Called and gave patient information, patient voiced understanding. Referral placed. Shreya DWYER [facility] 11-03-[address] Arroyo, patient should seek a second opinion from GI. Reccomends patient to see Dr. Hitesh Price at [facility]. Called and gave patient information, patient voiced understanding. Referral placed. Shreya DWYER Patient called, verified by name and . Stated that Dr. Arroyo had referred patient to GI at [facility] and patient saw Dr. Garcia, who told [...] needs to be done next. Please advise. documented in this encounter [facility] 11-02-2024 Telephone encounter Note Patient called, verified by name and . Stated that Dr. Arroyo had referred patient to GI at [facility] and patient saw Dr. Garcia, who told [...] needs to be done next. Please advise. [facility] 10-29-2024 Note HNO ID: [id number] Author: YESSICA METZ RN Service: ? Author Type: Registered Nurse Type: Nursing Progress Note Filed: 10/29/2024 17:12 Note Text: The pt continues to rest in no distress [facility] 10-29-2024 Note HNO ID: [id number] Author: YESSICA METZ RN Service: ? Author Type: Registered Nurse Type: Nursing Progress Note Filed: 10/29/2024 16:10 Note Text: The pt continues to rest in no distress. [facility] 10-29-2024 Note HNO ID: [id number] Author: YESSICA METZ RN Service: ? Author Type: Registered Nurse Type: Nursing Progress Note Filed: 10/29/2024 14:40 Note Text: The pt is resting in no distress at this time. He is to remain on bedrest until 1930 per 's order [facility] 10-29-2024 Note HNO ID: [id number] Author: GINA RHODES APRN.CRNA Service: Anesthesiology Author Type: Nurse Underwear Hemmer Type: Anesthesia Procedure Notes Filed: 10/29/2024 12:13 Note Text: ANESTHESIOLOGY PROCEDURE NOTE Airway General Information Procedure Start Time/Medication Administration: 10/29/2024 12:04 PM Procedure End Time: 10/29/2024 12:05 PM Patient location during procedure: OR Timeout Performed Pre-procedure: timeout performed Consent Obtained: Yes Patient identity confirmed: arm band and patient Staffing SENIOR ADMINISTRATIVE SERVICES OFFICER: Gina Rhodes APRN.SENIOR ADMINISTRATIVE SERVICES OFFICER Performed by: MIKAELA Indications and Patient Condition Indications for airway management: anesthesia and airway protection Preoxygenated: yes anesthesia circuit Patient position: sniffing Method: asleep Cricoid Pressure: No Manual In-Line Stabilization: No Difficult Mask: No Final Airway Details Final airway type: endotracheal airway Final Endotracheal Airway: ETT Cuffed: yes Successful intubation technique: video laryngoscopy Devices used: Roland Endotracheal tube insertion site: oral Blade: Evonne Blade size: #4 ETT size (mm): 8.0 Measured from: lips Measurement (cm): 23 Placement verified by: chest auscultation and capnometry Cormack-Lehane Classification: grade I - full view of glottis Number of attempts at approach: 1 Failed airway: no Unrecognized esophageal intubation: no Airway not difficult SIGNATURE: Gina Rhodes APRN.SENIOR ADMINISTRATIVE SERVICES OFFICER PATIENT NAME: Ministerio Leal DATE: October 29, 2024 TIME: 12:13 PM CSN: [id number] [facility] 10-26-2024 Telephone encounter Note I called the patient and tried to [...] and explain what is happening with him? [facility] 10-26-2024 Miscellaneous Notes I called the patient and tried to [...] and explain what is happening with him? documented in this encounter [facility] 10-26-2024 Note Addended by: GIO RICHARDSON on: 10/26/2024 11:29 AM Modules accepted: Orders [facility] 10-26-2024 Miscellaneous Notes Addended by: GIO RICHARDSON on: 10/26/2024 11:29 AM Modules accepted: Orders documented in this encounter [facility] 10-26-2024 Note HNO ID: [id number] Author: GIO RICHARDSON DO Service: ? Author Type: Physician Type: Progress Notes Filed: 10/26/2024 10:33 Note Text: [facility] [place] DEPARTMENT OF VASCULAR SURGERY OUTPATIENT VISIT DATE October 26, 2024 OUTPATIENT VISIT TYPE ESTABLISHED SERVICE DATE: 10/26/2024 SERVICE TIME: 10:22 AM PRIMARY CARE PHYSICIAN: Hitesh Dai MD HISTORY OF PRESENT ILLNESS: Mr. Leal is a 64 year old male who [...] pain. He was most recently admitted to [facility] in July PAST MEDICAL HISTORY Diagnosis Date [...] Drug use: No Comment: used to smoke mariPingStamp, 3 to 4 days per week MEDICATIONS: [...] Inferior mesenteric artery: 70-99% stenosis. IMPRESSION: Mr. 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 PLAN and RECOMMENDATIONS: Will arrange for mesenteric angiogram as no gi etiology found on multiple scopes to correlate with significant pain. His stents appear and unchanged on recent duplex. Discussed with patient who is agreeable. Will have office arrange and schedule SIGNATURE: Gio Richardson DO PATIENT NAME: Ministerio Leal DATE: October 26, 2024 (more content not included)... [facility] 10-26-2024 History of Present illness Narrative Images from the original note were not included. [facility] [place] DEPARTMENT OF VASCULAR SURGERY OUTPATIENT VISIT DATE October 26, 2024 OUTPATIENT VISIT TYPE ESTABLISHED SERVICE DATE: 10/26/2024 SERVICE TIME: 10:22 AM PRIMARY CARE PHYSICIAN: Hitesh Dai MD HISTORY OF PRESENT ILLNESS: Mr. Leal is a 64 year old male who [...] pain. He was most recently admitted to [facility] in July PAST MEDICAL HISTORY Diagnosis Date [...] Drug use: No Comment: used to smoke [employer], 3 to 4 days per week MEDICATIONS: [...] 05/11/2024, No significant change. Similar findings since 2020 duplex AORTA Patent. Aorta plaque noted without evidence of hemodynamically significant stenosis throughout MESENTERIC VESSELS Celiac: 0-69% stenosis. No evidence of hemodynamically significant stenosis. Stent noted. Hepatic: Patent. Splenic: Patent. Superior mesenteric artery: 70-99% stenosis. Stent noted. In-stent stenosis. Inferior mesenteric artery: 70-99% stenosis. IMPRESSION: Mr. 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 PLAN and RECOMMENDATIONS: Will arrange for mesenteric angiogram as no gi etiology found on multiple scopes to correlate with significant pain. His stents appear and unchanged on recent duplex. Discussed with patient who is agreeable. Will have office arrange and schedule SIGNATURE: Gio Richardson DO PATIENT NAME: Ministerio Leal DATE: October 26, 2024 TIME: 10:22 AM documented in this encounter [facility] 10-06-2024 Note Addended by: DARVIN GARCIA on: 10/06/2024 01:23 PM Modules accepted: Orders [facility] 10-06-2024 Note Addended by: DARVIN GARCIA on: 10/06/2024 01:23 PM Modules accepted: Orders [facility] 10-06-2024 Miscellaneous Notes Addended by: DARVIN GARCIA on: 10/06/2024 01:23 PM Modules accepted: Orders documented in this encounter [facility] 10-06-2024 Note HNO ID: [id number] Author: DARVIN GARCIA MD Service: ? Author Type: Physician Type: Progress Notes Filed: 10/06/2024 13:23 Note Text: Lacey Arroyo Consultation requested by Dr. Arroyo for an opinion regarding abdominal pain. My [...] organomegaly Extremities: no cyanosis or edema CBC: @LASTLABX(WBC:2,HB,MCV,PLT,neut,ly mphp])@ CMP: Alkaline Phosphatase (U/L) Date Value 05/18/2024 [...] Darvin Garcia MD Date: October 06, 2024 [facility] 10-06-2024 History of Present illness Narrative Lacey Arroyo Consultation requested by Dr. Arroyo for an opinion regarding abdominal pain. My final recommendations will be communicated back to the requesting physician by way of shared Medical record or letter to requesting physician via US mail. BP 107/73 Pulse 76 Ht 177.8 cm (5' 10) Wt 51.3 kg (113 lb 3.2 oz) SpO2 99% BMI 16.24 kg/m Medications: Current Outpatient Medications Medication Sig hyoscyamine [...] organomegaly Extremities: no cyanosis or edema CBC: @LASTLABX(WBC:2,HB,MCV,PLT,neut,ly mphp])@ CMP: Alkaline Phosphatase (U/L) Date Value 05/18/2024 [...] Darvin Garcia MD Date: October 06, 2024 documented in this encounter [facility] 09-26-2024 Radiology Diagnostic study note [facility] Imaging Services [address] [place] [address] Abdomen/Pelvis W IV Cont ONLY MR#: [id number] Acct: [id number] Name: MINISTERIO LEAL Rep #: [id number] : 1960 M 64 From: Pet er Peer DO PCP: Dr. Hitesh Dai MD Status: REG ER Study:Abdomen/Pelvis W IV Cont ONLY Date of E xam: 09/26/24 Exam# [id number] Ordering Dr: Mandy Norman PROCEDURE: ABDOMEN/PELVIS W IV CONT ONLY 09/26/2024 REASON FOR EXAM: L SIDED ABDOMINAL PAIN History of celiac and superior mesenteric artery stents. Stomach resection. Cholecystectomy. History of liver failure. TECHNIQUE: Abdomen and pelvis CT with intravenous contrast. Coronal and Sagittal reconstruction series were provided. PATIENT PREPARATION: Per protocol ORAL CONTRAST TYPE: None. AMOUNT: mL CONTRAST: Isovue 370 VOLUME: 100 mL IV One or more dose reduction techniques were used (e.g., Automated exposure control, adjustment of the mA and/or kV according to patient size, use of iterative reconstruction technique. RADIATION DOSE SUMMARY: CTDlvol: 9.37 mGy DLP: 256.71 mGycm COMPARISON: CT exam from 11/12 2023 FINDINGS: Lung bases: Lungs are clear. No pleural effusions. Heart size is normal. Liver: Unenlarged. 15 cm in length. Attenuation within normal limits Gallbladder: Cholecystectomy clips are seen in the gallbladder fossa. The spleen, pancreas, adrenals, kidneys and urinary bladder are unremarkable. Reproductive Organs: Mild prostatism Bowel: The gastrointestinal tract is grossly normal caliber and appearance. Appendix: No inflammatory process is appreciated in the right lower quadrant theappendix not definitely identified. Lymph nodes: No lymphadenopathy identified. Vasculature: Metallic mesh stent grafts are seen in the celiac and superior mesenteric arteries. Peritoneum / Retroperitoneum: No free fluid or free air appreciated. Bones: No aggressive bony process. CT/Abdomen/Pelvis W IV Cont ONLY IMPRESSION: No acute process appreciated. Reading Location: [facility]CLUD[facility] CC: Dr. Hitesh Dai MD; STEPHANE Quinteros ~ Life Skills Instructor: Signed [facility] 08-31-2024 Note HNO ID: [id number] Author: LACEY ARROYO MD Service: ? Author Type: Physician Type: Progress Notes Filed: 08/31/2024 10:36 Note Text: Lacey Arroyo M.D. Surgical Oncology [address] [place] [address], [address] [place] [id number] TELEPHONE VISIT NOTE I have communicated my name and active licensure. The patient's identity and physical location were verified at the time of this visit. Either the patient or their legal technical account representative has been informed of the risks and benefits of -- and alternatives to -- treatment through a remote evaluation and consents to proceed with the evaluation remotely. Ministerio Leal is a 64-year-old male presenting for evaluation of recurrent abdominal cramping. Ministerio reports recurrent abdominal cramping, which has been [...] episodes and denies a history of GERD. Ministerio expresses concern about the impact of his symptoms on his ability to work, stating, I'm scared to this is going to cost me my job. He is worried about his employability due to his age and physical problems. The ROS, medical, surgical, family, and social history were reviewed by Lacey Arroyo MD Labs (No diagnostic laboratory results discussed.) [...] refer him to GI at the [facility] [place] for an opinion. I answered his questions and he was agreeable to this plan. The patient consented to the use of [employer] software for draft documentation of the visit consistent with [facility]?s Notice of Privacy Practices. I spent a total of 20 minutes on the date of the service which included preparing to see the patient, completing clinical documentation, and counseling and educating the patient/family/caregiver. Lacey Arroyo MD 08/31/2024 10:34 AM [facility] 08-31-2024 History of Present illness Narrative Images from the original note were not included. Lacey Arroyo M.D. Surgical Oncology [address] [facility], [address] [place] [id number] TELEPHONE VISIT NOTE I have communicated my name and active licensure. The patient's identity and physical location were verified at the time of this visit. Either the patient or their legal technical account representative has been informed of the risks and benefits of -- and alternatives to -- treatment through a remote evaluation and consents to proceed with the evaluation remotely. Ministerio Leal is a 64-year-old male presenting for evaluation of recurrent abdominal cramping. Ministerio reports recurrent abdominal cramping, which has been [...] episodes and denies a history of GERD. Ministerio expresses concern about the impact of his symptoms on his ability to work, stating, I'm scared to this is going to cost me my job. He is worried about his employability due to his age and physical problems. The ROS, medical, surgical, family, and social history were reviewed by Lacey Arroyo MD Labs (No diagnostic laboratory results discussed.) [...] refer him to GI at the [facility] [place] for an opinion. I answered his questions and he was agreeable to this plan. The patient consented to the use of [employer] software for draft documentation of the visit consistent with [facility] s Notice of Privacy Practices. I spent a total of 20 minutes on the date of the service which included preparing to see the patient, completing clinical documentation, and counseling and educating the patient/family/caregiver. Lacey Arroyo MD 08/31/2024 10:34 AM documented in this encounter [facility] 08-11-2024 Note HNO ID: [id number] Author: JACY MARR, JERILYN Service: Nursing Author Type: Registered Nurse Type: Nursing Progress Note Filed: 08/11/2024 13:50 Note Text: Dr. Jacobson made aware of 5/10 pain LLQ. OK to give 50 mcg Fentanyl. [facility] 08-11-2024 Note HNO ID: [id number] Author: LACEY ARROYO MD Service: General Surgery Author Type: Resident Type: Progress Notes Filed: 08/11/2024 16:50 Note Text: Attestation signed by Lacey Arroyo MD at 08/11/2024 4:50 PM I personally [...] questions or concerns Mon-Fri 6a-5p please page [phone]. After 5pm and on Weekends and Holidays, please page [phone] if in ICU or [phone] if on RNF. Subjective SUBJECTIVE: NAEON. Pt sleeping comfortably this morning. [...] document bowel function Discussed with attending: Dr. Arroyo SIGNATURE: Kerry Mix DO PATIENT NAME: Ministerio Leal DATE: August 11, 2024 TIME: 9:33 AM Pager: see below Elective General Surgery (Blue Surgery) Service Pager: For questions or concerns Mon-Fri 6a-5p please page [phone]. After 5pm and on Weekends and Holidays, please page [phone] if in ICU or [phone] if on RNF. [facility] 08-10-2024 Note HNO ID: [id number] Author: SOFIYA CARDENAS RN Service: Care Management Author Type: Registered Nurse Type: Care Mgt Initial Assessment Filed: 08/10/2024 13:59 Note Text: CARE MANAGEMENT: ASSESSMENT AND DISCHARGE PLAN SERVICE DATE: August 10, 2024 SERVICE TIME: 11:47 AM PCP: Hitesh Dai MD Primary Contact: Extended Emergency Contact Information Primary Emergency Contact: Radha Leal Address: [address] [place] Relation: Spouse Admission Status: Inpatient Insurance Provider: [employer] PPO Discharge Planning requested by: Per Department Practice Potential Transition Plans Home Advance Directives Current Advance Directive: None Lawyer Probate Attempted to Assist with AD Completion: Yes [...] to go home, General wellness, Less pain [place] Explained: [place] Given: No Reason Not Given: [...] is from home with 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 DC plan is home, patient will have transport. No transitional/discharge needs identified at this time. CM will continue to follow. SIGNATURE: Sofiya Cardenas RN PATIENT NAME: Ministerio Leal DATE: August 10, 2024 TIME: 1:58 PM [facility] 08-04-2024 Telephone encounter Note Called pt to schedule EGD at [facility] with [facility] is full, unable to leave message [facility] 08-04-2024 Miscellaneous Notes Called pt to schedule EGD at [facility] with [facility] [place] is full, unable to leave message documented in this encounter [facility] 07-28-2024 Note HNO ID: [id number] Author: LACEY ARROYO MD Service: ? Author Type: Physician Type: Progress Notes Filed: 07/30/2024 15:19 Note Text: Lacey Arroyo M.D. Surgical Oncology [address] [facility], [address] [place] [address] Plan SUBJECTIVE HPI Ministerio Leal is a 64 year old male presenting [...] family, and social history were reviewed by aLcey Arroyo MD. OBJECTIVE BP 108/72 Pulse 78 Ht [...] patient/family/caregiver, and ordering medications, tests, or procedures. Lacey Arroyo MD 07/28/2024 2:36 PM [facility] 07-28-2024 History of Present illness Narrative Images from the original note were not included. Lacey Arroyo M.D. Surgical Oncology [address] [facility], [address] [place] [address] Plan SUBJECTIVE HPI Ministerio Leal is a 64 year old male presenting [...] family, and social history were reviewed by Lacey Arroyo MD. OBJECTIVE BP 108/72 Pulse 78 Ht 177.8 cm (5' 10) Wt 52.2 kg (115 lb 1.6 oz) SpO2 99% BMI 16.52 kg/m BMI 16.52 kg/(m^2) Physical Exam Constitutional: General: He is not [...] patient/family/caregiver, and ordering medications, tests, or procedures. Lacey Arroyo MD 07/28/2024 2:36 PM documented in this encounter [facility] 07-01-2024 Telephone encounter Note Pt called back and informed referral given to Dr Arroyo office Coral Sandoval MA [facility] 07-01-2024 Miscellaneous Notes Pt called back and informed referral given to Dr Arroyo office Coral Sandoval MA Left message to call back Coral Sandoval MA Plz call pt and LHK that he had a script of Levsin SL(under tongue) prn abd pain.Tried? I'm also sending him back to Dr. Arroyo to see his opinion re: his recurrent abd pain. documented in this encounter [facility] 07-01-2024 Telephone encounter Note Left message to call back Coral Sandoval MA [facility] 07-01-2024 Telephone encounter Note Plz call pt and LHK that he had a script of Levsin SL(under tongue) prn abd pain.Tried? I'm also sending him back to Dr. Arroyo to see his opinion re: his recurrent abd pain. [facility] 06-29-2024 Telephone encounter Note I know with some pills/capsule they can be seen in stool, but the medication has been released. This is also noted on the [facility] website regarding this medication. As Rose said before, I would defer to Dr. Culver. Madelin Naidu PA-C [facility] Work Phone: 06-29-2024 Miscellaneous Notes I know with some pills/capsule they can be seen in stool, but the medication has been released. This is also noted on the [facility] website regarding this medication. As Rose said before, I would defer to Dr. Culver. Madelin Naidu PA-C Pt calling back states when he has a bowel movement the levsin pills are in his stool as if they aren not digesting in his body could be why they are not working please advise Coral Sandoval MA Defer to Dr Culver- looks like he has already tried bentyl a few years ago and he has a narrowed section of colon- so not sure what else to try. Pt called in is lucio Culver pt The medication for his abd isn't working for his swollen colon he is in such intense pain couldn't return to work wants to see if he can change to a stronger medication or up the dosage Jessica House documented in this encounter [facility] 06-29-2024 Telephone encounter Note Pt calling back states when he has a bowel movement the levsin pills are in his stool as if they aren not digesting in his body could be why they are not working please advise Coral Sandoval MA [facility] 06-25-2024 Telephone encounter Note Per Dr. Richardson , SELIN note and imaging reviewed, she is recommending f/u in 6 month with repeat imaging. Called patient and informed of provider recommendations Appt scheduled. Encounter closed [facility] 06-25-2024 Miscellaneous Notes Per SELIN Jeffrey note and imaging reviewed, she is recommending f/u in 6 month with repeat imaging. Called patient and informed of provider recommendations Appt scheduled. Encounter closed Patient reached out to the [place] office. He is having GI issues that he is trying to get resolved. He was cleared to proceed with colonoscopy, which he completed back in April 2024. He was also having an attack at that time and he was admitted to [facility]. He has celiac and SMA stenting. He had CT scan of his abdomen which shows that he has a 70-90% blockage at the junction of his 2 stents He is having abdominal pain again. He was urged by Dr. Culver to reach out to vascular office. He would like for recent testing and follow ups with GI reviewed by Dr. Richardson. Patient can be reached back at [phone]. documented in this encounter [facility] 06-24-2024 Telephone encounter Note Patient reached out to the [place] office. He is having GI issues that he is trying to get resolved. He was cleared to proceed with colonoscopy, which he completed back in April 2024. He was also having an attack at that time and he was admitted to [facility]. He has celiac and SMA stenting. He had CT scan of his abdomen which shows that he has a 70-90% blockage at the junction of his 2 stents He is having abdominal pain again. He was urged by Dr. Culver to reach out to vascular office. He would like for recent testing and follow ups with GI reviewed by Dr. Richardson. Patient can be reached back at [phone]. [facility] 06-24-2024 Telephone encounter Note Defer to Dr Culver- looks like he has already tried bentyl a few years ago and he has a narrowed section of colon- so not sure what else to try. [facility] Work Phone: 06-24-2024 Telephone encounter Note Pt called in is a [place] pt The medication for his abd isn't working for his swollen colon he is in such intense pain couldn't return to work wants to see if he can change to a stronger medication or up the dosage Jessica House [facility] 06-03-2024 Note HNO ID: [id number] Author: GEORGE CULVER MD Service: ? Author Type: Physician Type: Progress Notes Filed: 06/03/2024 10:39 Note Text: HPI: Ministerio Leal is a 64 year old male who [...] - needs to quit smoking altogether George Culver MD [facility] 06-03-2024 History of Present illness Narrative HPI: Ministerio Leal is a 64 year old male who [...] (1.78m) Wt 113 lb (51.3kg) BMI 16.21 kg/(m^2). GENERAL APPEARANCE: Well appearing, alert, in no [...] - needs to quit smoking altogether George Culver MD documented in this encounter [facility] 05-28-2024 Telephone encounter Note Recall Completed Shirley Chavez MA May 28, 2024 10:[address] [facility] 05-28-2024 Miscellaneous Notes Recall Completed Shirley Chavez MA May 28, 2024 10:38 AM ----- Message from George Culver MD sent at 05/26/2024 12:57 PM EST ----- Recall colonoscopy 5 yrs documented in this encounter [facility] 05-28-2024 Telephone encounter Note ----- Message from George Culver MD sent at 05/26/2024 12:57 PM EST ----- Recall colonoscopy [address] [facility] 05-18-2024 Nurse Note Patient arrived to Endoscopy window for his scheduled colonoscopy. Upon presentation patient is writhing in pain, nauseous, unable to stand due to abdominal pain. Dr Culver sent to assess patient in the cardenas and recommended the patient go to the ER for acute evaluation. upstream biomanufacturing technician wheeled patient to the ER, Dr Culver called ER to give physician handoff. [facility] 05-18-2024 Nurse Note Patient arrived to Endoscopy window for his scheduled colonoscopy. Upon presentation patient is writhing in pain, nauseous, unable to stand due to abdominal pain. Dr Culver sent to assess patient in the cardenas and recommended the patient go to the ER for acute evaluation. upstream biomanufacturing technician wheeled patient to the ER, Dr Culver called ER to give physician handoff. documented in this encounter [facility] 05-11-2024 Note HNO ID: [id number] Author: GIO RICHARDSON, DO Service: ? Author Type: Physician Type: Progress Notes Filed: 06/09/2024 13:41 Note Text: Heart , [facility] [place] DEPARTMENT OF VASCULAR SURGERY OUTPATIENT VISIT DATE May 11, 2024 OUTPATIENT VISIT TYPE ESTABLISHED SERVICE DATE: 05/11/2024 SERVICE TIME: 11:30 AM PRIMARY CARE PHYSICIAN: Hitesh Dai MD HISTORY OF PRESENT ILLNESS: Mr. 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 He has been having low grade cramping which progresses to loose stools. He is following with GI at [facility] recently with plans for colonoscopy. PAST MEDICAL [...] Drug use: No Comment: used to smoke [employer], 3 to 4 days per week MEDICATIONS: [...] Inferior mesenteric artery: 70-99% stenosis. IMPRESSION: Mr. Leal is a 64 year old male with mesenteric artery stenosis s/p stenting . PLAN and RECOMMENDATIONS: Recommend follow up in one year with repeat imaging SIGNATURE: Gio Richardson DO PATIENT NAME: Ministerio Leal DATE: May 11, 2024 TIME: 11:30 AM [facility] 05-11-2024 History of Present illness Narrative Images from the original note were not included. Heart , [facility] [place] DEPARTMENT OF VASCULAR SURGERY OUTPATIENT VISIT DATE May 11, 2024 OUTPATIENT VISIT TYPE ESTABLISHED SERVICE DATE: 05/11/2024 SERVICE TIME: 11:30 AM PRIMARY CARE PHYSICIAN: Hitesh Dai MD HISTORY OF PRESENT ILLNESS: Mr. 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 He has been having low grade cramping which progresses to loose stools. He is following with GI at [facility] recently with plans for colonoscopy. PAST MEDICAL [...] Inferior mesenteric artery: 70-99% stenosis. IMPRESSION: Mr. Leal is a 64 year old male with mesenteric artery stenosis s/p stenting . PLAN and RECOMMENDATIONS: Recommend follow up in one year with repeat imaging SIGNATURE: Gio Richardson DO PATIENT NAME: Ministerio Leal DATE: May 11, 2024 TIME: 11:30 AM documented in this encounter [facility] 04-08-2024 Telephone encounter Note Called patient, is scheduled for US and appt on 05/11/24. [facility] 04-08-2024 Miscellaneous Notes Called patient, is scheduled for US and appt on 05/11/24. Images from the original note were not included. Gio Richardson DO You; Coral Sandoval MA; [facility] Pool3 hours ago (12:02 PM) In reviewing his chart, he is cleared for colonoscopy. I do recommend a follow up with vascular surgery with mesenteric duplex in the near future Thank you Sheila Richardson Patient contacted office for vascular surgery to review CT scan report from [facility] on 12/30/2023 that is scanned into the chart for clearance to proceed with upcoming colonoscopy. He is having a lot of pain and does not want to cancel his colonoscopy. Patient last saw Dr. Richardson 01/09/2021. Explained to the patient since he has not seen Dr. Richardson recently she may not give that clearance. He verbalized understanding. Patient can be reached back at [phone]. Received a call from Endo at [place] per Anesthesia pt needs scoped in [place] also said needs pre testing, and should see Vascular Srg has Infererior/superior artery stenosis 70-99%, said it did not look like pt followed up with Vascular , should scope be postponed or is it okay to reschedule him in Mariia Sandoval MA documented in this encounter [facility] 04-07-2024 Telephone encounter Note Images from the original note were not included. Gio Richardson, DO You; Coral Sandoval MA; [facility] Pool3 hours ago (12:02 PM) In reviewing his chart, he is cleared for colonoscopy. I do recommend a follow up with vascular surgery with mesenteric duplex in the near future Thank you Sheila Richardson [facility] 04-07-2024 Telephone encounter Note Patient contacted office for vascular surgery to review CT scan report from [facility] on 12/30/2023 that is scanned into the chart for clearance to proceed with upcoming colonoscopy. He is having a lot of pain and does not want to cancel his colonoscopy. Patient last saw Dr. Richardson 01/09/2021. Explained to the patient since he has not seen Dr. Richardson recently she may not give that clearance. He verbalized understanding. Patient can be reached back at [phone]. [facility] 03-31-2024 Telephone encounter Note Received a call from [facility] per Anesthesia pt needs scoped in [place] also said needs pre testing, and should see Vascular Srg has Infererior/superior artery stenosis 70-99%, said it did not look like pt followed up with Vascular , should scope be postponed or is it okay to reschedule him in Mariia Sandoval MA [facility] 02-18-2024 Telephone encounter Note Patient said it's just really bad cramping and he goes to the bathroom a lot until there is nothing left. He was only taking the pill as needed but now it is no longer helping him. Abhi Daly [facility] 02-18-2024 Miscellaneous Notes Patient said it's just really bad cramping and he goes to the bathroom a lot until there is nothing left. He was only taking the pill as needed but now it is no longer helping him. Abhi Daly Have pt discontinue the bentyl. Is he having any other symptoms? Lets see if stopping the bentyl helps his abdominal pain first before sending something new in -Jessy Gibbons PA-C Patient is currently taking dicyclomine but it is giving him terrible gut pain. He is experiencing colitis. Wants to know if anything else stronger can be prescribed that is not a narcotic? Abhi Daly documented in this encounter [facility] 02-18-2024 Telephone encounter Note Have pt discontinue the bentyl. Is he having any other symptoms? Lets see if stopping the bentyl helps his abdominal pain first before sending something new in -Jessy Gibbons PA-C [facility] 02-18-2024 Telephone encounter Note Patient is currently taking dicyclomine but it is giving him terrible gut pain. He is experiencing colitis. Wants to know if anything else stronger can be prescribed that is not a narcotic? Abhi Daly [facility] 02-12-2024 Telephone encounter Note Pt informed Coral Sandoval MA [facility] 02-12-2024 Miscellaneous Notes Pt informed Coral Sandoval MA The marker for inflammation in the colon was elevated. The next to evaluate this would be a colonoscopy, which is scheduled for March. Pancreatic elastase- which measure pancreas enzymes in the stool- was a normal level. -Jessy Gibbons PA-C Pt calling for stool results Coral Sandoval MA documented in this encounter [facility] 02-12-2024 Telephone encounter Note The marker for inflammation in the colon was elevated. The next to evaluate this would be a colonoscopy, which is scheduled for March. Pancreatic elastase- which measure pancreas enzymes in the stool- was a normal level. -Jessy Gibbons PA-C [facility] 02-10-2024 Telephone encounter Note Pt calling for stool results Coral Sandoval MA [facility] 01-15-2024 Note HNO ID: [id number] Author: GEORGE CULVER MD Service: ? Author Type: Physician Type: Progress Notes Filed: 01/15/2024 16:44 Note Text: HPI: Ministerio Leal is a 63 year old male who presents for follow up of Follow Up. Pt was at [facility] a few wks ago. Starts out w nl stools then thinner stools frequently and had abd pain. Colonoscopy done at [place] apparently was ok last yr. CT scan did not show inc'd mesenteric vascular stenosis. No blood, mild nausea no emesis. Current Outpatient Medications Medication Sig dicyclomine (BENTYL) 20 mg tablet Take 1 tablet by mouth three times a day as needed (abdominal pain). acetaminophen 325 mg-caffeine 40 mg-butalbital 50 [...] Take 1 tablet by mouth once daily. ondansetron (ZOFRAN) 4 mg tablet Take 1 tablet by mouth every 8 hours as needed for nausea/vomiting. sucralfate (CARAFATE) 1 gram tablet Take 1 g by mouth as needed. rosuvastatin (CRESTOR) 10 mg tablet [...] paralysis, seizures or tremors PHYSICAL EXAMINATION: BP 124/74 Pulse 71 Ht 5' 10 (1.78m) Wt 115 lb (52.2kg) BMI 16.50 kg/(m2). GENERAL APPEARANCE: Well appearing, alert, in no acute distress, well-hydrated, well nourished. EYES: No icterus ABDOMEN: Normal, soft, sl tender LLQ, no masses or organomegaly. ASSESSMENT AND PLAN: ASSESSMENT/PLAN: 1. Diarrhea, unspecified type - ICD9: 787.91, ICD10: R19.7 (primary diagnosis) - PANC ELASTASE, FECAL - CALPROTECTIN,FECAL - COLONOSCOPY DIAGNOSTIC 2. LLQ pain - ICD9: 789.04, ICD10: R10.32 - COLONOSCOPY DIAGNOSTIC George Culver MD [facility] 01-15-2024 History of Present illness Narrative HPI: Ministerio Leal is a 63 year old male who presents for follow up of Follow Up. Pt was at [facility] a few wks ago. Starts out w nl stools then thinner stools frequently and had abd pain. Colonoscopy done at [place] apparently was ok last yr. CT scan did not show inc'd mesenteric vascular stenosis. No blood, mild nausea no emesis. Current Outpatient Medications Medication Sig dicyclomine (BENTYL) 20 mg tablet Take 1 tablet by mouth three times a day as needed (abdominal pain). acetaminophen 325 mg-caffeine 40 mg-butalbital 50 [...] Take 1 tablet by mouth once daily. ondansetron (ZOFRAN) 4 mg tablet Take 1 tablet by mouth every 8 hours as needed for nausea/vomiting. sucralfate (CARAFATE) 1 gram tablet Take 1 g by mouth as needed. rosuvastatin (CRESTOR) 10 mg tablet [...] paralysis, seizures or tremors PHYSICAL EXAMINATION: BP 124/74 Pulse 71 Ht 5' 10 (1.78m) Wt 115 lb (52.2kg) BMI 16.50 kg/(m^2). GENERAL APPEARANCE: Well appearing, alert, in no acute distress, well-hydrated, well nourished. EYES: No icterus ABDOMEN: Normal, soft, sl tender LLQ, no masses or organomegaly. ASSESSMENT AND PLAN: ASSESSMENT/PLAN: 1. Diarrhea, unspecified type - ICD9: 787.91, ICD10: R19.7 (primary diagnosis) - PANC ELASTASE, FECAL - CALPROTECTIN,FECAL - COLONOSCOPY DIAGNOSTIC 2. LLQ pain - ICD9: 789.04, ICD10: R10.32 - COLONOSCOPY DIAGNOSTIC George Culver MD documented in this encounter [facility] 12-30-2023 Telephone encounter Note Patient called in stating that they were in extreme abdominal pain and that they were going to the ED at [place] [facility]. December 30, 2023 8:[address] [facility] 12-30-2023 Miscellaneous Notes Patient called in stating that they were in extreme abdominal pain and that they were going to the ED at [place] [facility]. December 30, 2023 8:36 AM Delmer Rivera documented in this encounter [facility] 05-09-2023 Miscellaneous Notes I sent carmelo to [facility]. I asked Dr. Culver if the pt could have it and he said it was okay. -Jessy Gibbons PA-C It was given to him from the er he forgot to ask Dr Culver for it at his visit Coral Sandoval MA Who prescribed it originally? The last script I see is from 2017 -Jessy Gibbons PA-C Pt given dicyclomine 10mg 2 tabs every 6 hrs as needed , asking if he can get a refill on that please advise Coral Sandoval MA documented in this encounter [facility] 05-07-2023 History of Present illness Narrative HPI: Ministerio Leal is a 63 year old male who presents for follow up of Follow Up (scope) and Abdominal Pain. Pt is here for f/up. Pt went to [place] ED for gen abd pain and nausea, said CT there which I cannot access showed colitis. Porphyria has been raised and said his urine PBG has been elevated. See some labs from here not supportive though. No Fam Hx of of it. Currently nl stools. Last colonoscopy was December 2018. No blood, no further melena. Wt is up 9#. Current Outpatient Medications Medication Sig acetaminophen 325 mg-caffeine 40 mg-butalbital 50 mg (FIORICET) per tablet Take 1 tablet by mouth every 4 hours as needed for headache. ondansetron orally disintegrating (ZOFRAN ODT) [address]integrating tablet pantoprazole DR (PROTONIX) 20 mg tablet Take 20 mg by mouth once daily. clopidogrel (PLAVIX) 75 mg tablet Take 75 mg by mouth once daily. sucralfate (CARAFATE) 1 gram tablet Take 1 g by mouth as needed. aspirin 81 mg chewable tablet Take 1 tablet by mouth once daily. erythromycin DR (GEORGIA-TAB) 250 mg EC tablet Take 1 tablet by mouth three times daily with meals. ondansetron (ZOFRAN) 4 mg tablet Take 1 [...] paralysis, seizures or tremors PHYSICAL EXAMINATION: BP 112/67 Pulse 71 Ht 5' 10 (1.78m) Wt 113 lb 9.6 oz (51.5kg) BMI 16.30 kg/(m^2). GENERAL APPEARANCE: Well appearing, alert, in no acute distress, well-hydrated, well nourished. EYES: No icterus ABDOMEN: Normal, soft, non-tender, no masses or organomegaly. Min RLQ tenderness. ASSESSMENT AND PLAN: ASSESSMENT/PLAN: 1. LUQ pain - ICD9: 789.02, ICD10: R10.12 (primary diagnosis) - resolved 2. Black stools - ICD9: 792.1, ICD10: K92.1 - nothing recent, s/p EGD 3. RLQ abdominal pain - ICD9: 789.03, ICD10: R10.31 - need colonoscopy report from [facility] 4. Generalized abdominal pain - ICD9: 789.07, ICD10: R10.84 - Porphyria? - need labs from [facility] Urine PBG George Culver MD documented in this encounter [facility] 04-25-2023 Discharge summary Note Date/Time April 25, 2023 4:39am [facility] Medical Records Department [address] [place] [address] Emergency Department Summary 04/25/23 MR#: [id number] Acct: [id number] Name: MINISTERIO LEAL Rep #:[id number] : 1960 63 From: Moris Angela MD PCP: Dr. Hitesh Dai MD Status:REG ER Location: ED HPI HPI - GI History of Present Illness Chief Complaint: Abd Pain Informant: patient and EMS Narrative Narrative: Patient with chronically recurring abdominal pain, he was seen here 1.5 weeks ago for the same pain, he states he came back about 9 or 10 hours prior to arrival this morning at around 4:30 AM. Pain is mostly in the right lower quadrant area, radiates into the flank some. Was not suddenly severe in onset, and a little improved after he received fentanyl, Versed, and Phenergan from EMSen route here. Last time he was here for this, we worked him up and it was fairly unremarkable except for some possible nonspecific focal colitis on CT. He has a history of mesenteric ischemia with stents, but he also has a history of high urine total porphyrins and liver issues. Denies any hematemesis lately or melena/bright redblood per rectum. When asked if he has followed up with anyone, he states the pain went away within less than a day of his prior visit, came back a little bitseveral days later but then dissipated and he works early in the morning until late in the evening and has not even tried to call for follow-up appointment yet. [facility] Medical History Arthritis Celiac artery stenosis Difficulty swallowing High cholesterol History of diverticulitis History of GI bleed History of IBS History of stress test History of ulceration Injury of head and neck Liver failure Marijuana use Mesenteric artery stenosis Mesenteric ischemia, chronic Migraine headache Restless legs Smoker Superior mesenteric artery syndrome Wears glasses Home Medications clopidogrel 75 mg tablet 75 mg PO QHS BLOOD THINNER 09/23/16 [History Last Taken 01/04/23] rosuvastatin 10 mg tablet 10 mg PO QHS CHOLESTEROL 06/08/18 [History Last Taken 11/11/22] aspirin 81 mg tablet,delayed release 81 mg PO DAILY HEART HEALTH 11/12/22 [History Last Taken 01/04/23] pantoprazole 20 mg tablet,delayed release 20 mg PO QHS ACID REFLUX 11/12/22 [History Last Taken 11/11/22] dicyclomine 10 mg capsule 20 mg (2 x 10 mg) PO Q6H PRN PRN abdominal pain #20 CAPSULES 04/14/23 [Rx Last Taken Unknown] oxycodone-acetaminophen 5 mg-325 mg tablet 1 tab PO Q6H PRN PRN Pain 3 days #12 TABLETS 04/14/23 [Rx Last Taken Unknown] Allergy/AdvReac Type Severity Reaction Status Date / Time senna Allergy Anaphylaxis Verified 04/25/23 04:24 omeprazole AdvReac Other Verified 04/25/23 04:24 Family History Father Colon cancer Mother COPD (chronic obstructive pulmonary disease) Lung cancer Concurrent tobacco use history. Surgical History History of cholecystectomy History of esophagogastroduodenoscopy (EGD) History of liver biopsy Hx of cervical spine surgery Hx of colonoscopy Hx of myringotomy Hx of resection of stomach Hx of surgical procedure Social History household members: spouse Smoking Status: Current every day smoker tobacco type: cigarettes how long ago did patient quit smoking: Cut back over 2-3 weeks, down to 3 cig/day 10/09/22. alcohol intake: current alcohol intake frequency: a few times a month details: occasional use substance use type: does not use ROS ROS ED Constitutional Constitutional ED: Denies chills or fever(s) Eyes Eyes: Denies change in vision or diplopia ENT ENT ED: Denies rhinorrhea or sore throat Cardiovascular Cardiovascular: Denies chest pain or palpitations Respiratory/Chest Respiratory/Chest: Denies cough or dyspnea Gastrointestinal Gastrointestinal: Reports abdominal pain; Denies diarrhea, hematemesis, hematochezia, melena, nausea or vomiting Genitourinary Genitourinary ED: Denies dysuria or hematuria Musculoskeletal Musculoskeletal: Denies back pain or neck pain Integumentary Denies abscess or rash Neurologic Neurologic: Denies headache(s), paresthesias or weakness Psychiatric Psychiatric: Denies anxiety or suicidal thoughts EXAM Physical Exam Const Vital Signs: 04/25/23 04:24 04/25/23 06:23 Temperature 97.3 F L Temperature Source Temporal Pulse Rate 71 71 Respiratory Rate 16 16 Blood Pressure 130/92 H 119/78 Blood Pressure Mean 104 91 Pulse Ox 99 97 Positive well nourished and well developed General Appearance ED: well developed and NAD HEENT Reports moist mucous membranes normocephalic and atraumatic Eyes PERRL and EOMs intact bilaterally Neck full ROM and supple Resp normal respiratory effort and clear to auscultation bilaterally Cardio regular rate, regular rhythm and no murmurs GI non-distended GI Narrative: Mild tenderness lower abdomen. No guarding or rebound. Auscultation: normoactive bowel sounds Palpation: soft Back/Spine no CVA tenderness General Back: other FROM Extremity normal to inspection General Extremety ED: Negative for edema, pulses abnormal or tenderness General Extremity: Negative for edema or pulses abnormal Neuro oriented x3, CN's II-XII intact bilaterally and no sensory deficits noted Sensorium / Orientation: awake and alert Motor Exam: strength 5/5 throughout Psych Mood & Affect: anxious Skin no rashes or lesions noted and no wounds MDM MDM MDM Narrative Medical decision making narrative: Patient was given pain medication similar to last time but it did not help his pain is much as before. In working him up, similar test results except for he has a leukocytosis at this time and he has a mild lactic acidosis. Given his history of ischemic bowel and mesenteric ischemia, as well as the stomach antralsurgery that he had, we both agree that he has had a lot of CT scans in the pastand we are trying to limit those, but this encounter is different from his last encounter in these ways and he agrees that he would rather be safe than sorry, so we rescan him to rule out these recurrent issues and/or surgical complication. I reviewed the images and the scan report and I agree with it, basically negative for any acute, similar to the prior scan. Patient was given additional analgesics he is a little better he is able to walk to and from the bathroom and drink fluids without difficulty and will be discharged home, he hasPercocet and dicyclomine from last time he has only taken 1 dose of each before he came here tonight. Patient indicates that his doctor is suspicious he has acute intermittent porphyria, but he needs some type of test when he is in pain. I am not familiar with this so I discussed with our caramel cutter hand Dr. Medina, who states thattest is a 24-hour urine. That is going to be difficult for me to obtain out of the emergency department, he does recommend that he be referred to a sports clerk. We do not have 1 in our health system, he is advised to follow-up with his PCP for this, so then he can get the right treatment. Lab Data Attestation: I reviewed the patient's lab results. Labs: Laboratory Results - last 24 hr 04/25/23 05:00 WBC 16.0 H RBC 5.02 Hgb 12.6 L Hct 41.9 MCV 83.5 MCH 25.1 L MCHC 30.1 L RDW Std Deviation 45.4 H RDW Coeff of Rashida 15.1 H Plt Count 242 MPV 12.7 H Immature Gran % (Auto) 0.500 Neut % (Auto) 84.2 H Lymph % (Auto) 6.5 L [place] % (Auto) 7.4 Eos % (Auto) 0.7 Baso % (Auto) 0.7 Absolute Neuts (auto) 13.5 H Absolute Lymphs (auto) 1.04 Nucleated RBC % 0 Sodium 137 Potassium 3.7 Chloride 106 Carbon Dioxide 26.0 Anion Gap 5 BUN 13 Creatinine 1.00 Estim Creat Clear Calc 56.01 Est GFR (MDRD) Af Amer 97 Est GFR (MDRD) Non-Af 81 BUN/Creatinine Ratio 13.0 Glucose 94 Lactic Acid 2.4 H* Calcium 9.4 Total Bilirubin 0.20 AST 20 ALT 24 Alkaline Phosphatase 116 Total Protein 8.1 Albumin 4.3 Globulin 3.8 Albumin/Globulin Ratio 1.1 Lipase 25 Radiography Diagnostic Testing: Clinical Impression(s) from Imaging Studies Abdomen/Pelvis CT 04/25/23 07:16 IMPRESSION: Moderate amount of stool throughout the colon. Circumferential wall thickening of the sigmoid colon, this may be partially secondary to its incompletely distended state however cannot exclude colitis. Stable celiac trunk and superior artery stents. Electronically Signed: Marisa Thakkar MD at 8:08 EDT , Discharge Plan Triage Chief Complaint: Abd Pain ED Provider: Moris Angela Dx/Rx/DC Orders Clinical Impression: High urine total porphyrin, Abdominal pain Instructions: Porphyrins (Urine) Prescriptions: No Action clopidogrel 75 MG tablet 75 mg PO QHS Hold Instructions: hold for five days, then resume rosuvastatin 10 MG tablet 10 mg PO QHS aspirin 81 mg Tablet,Delayed Release (Dr/Ec) 81 mg PO DAILY pantoprazole 20 mg tablet,delayed release (DR/EC) 20 mg PO QHS dicyclomine 10 mg capsule 20 mg PO Q6H PRN PRN (Reason: abdominal pain) Qty: 20 0RF oxycodone-acetaminophen [oxycodone-acetaminophen] 5-325 mg tablet 1 tab PO Q6H PRN PRN (Reason: Pain) 3 Days Qty: 12 0RF Primary Care Provider: Hitesh Dai Referrals: Hitesh Dai MD [Primary Care Provider] - As soon as possible (Call for further instructions) Disposition Disposition: Home, Self Care What to do if you have Problems For any increased pain, shortness of breath, bleeding, nausea or vomiting, chestpain, or any unexpected problems, contact your Primary Care Provider. Call [facility] ([phone]) or report to the closest Emergency Room. Call 911 if necessary. 04/25/23 0850 <Electronically signed by Moris Angela MD> Cosigner Signature (if applicable): CC: Dr. Hitesh Dai MD ~ Signed ADDENDUM by Dr. Moris Angela MD on 04/25/[address] Dai 04/25/23 0850<Electronically signed by Moris Angela MD> Cosigner Signature (if applicable): cc: Dr. Hitesh Dai MD ~* Signed [facility] Work Phone: 1(668) 451-271310-23-2023 Discharge summary Author Moris Angela [facility] April 14, 2023 1:23pm Note Date/Time April 14, 2023 9 :01am [facility] Medical Records Department [address] [place] [address] Emergency Department Summary 04/14/23 MR#: [id number] Acct: [id number] Name: MINISTERIO LEAL Rep #:[id number] : 1960 62 From: Moris Angela MD PCP: Dr. Hitesh Dai MD Status:REG ER Location: ED HPI HPI - GI History of Present Illness Chief Complaint: Abd Pain Informant: patient Abdominal Pain/Flank Pain Onset: Hours (5-6) Narrative Narrative: Patient with severe right lower quadrant abdominal pain that started suddenly this morning around 4:30 AM. No nausea. Occasionally radiates into his right low back but for the most part nonradiating. 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 Postoperative course according to outpatient records were complicated by delayedgastric emptying, diarrhea, pain. He states this does not feel related to that. Furthermore he had an EGD 6 days ago at [facility] and follow-up that lookednormal like things were healing very well. [facility] Medical History (Updated 04/14/23 @ 13:[address] Moris Angela MD) Arthritis Celiac artery stenosis Difficulty swallowing High cholesterol History of diverticulitis History of GI bleed History of IBS History of stress test History of ulceration Injury of head and neck Liver failure Marijuana use Mesenteric artery stenosis Mesenteric ischemia, chronic Migraine headache Restless legs Smoker Superior mesenteric artery syndrome Wears glasses Home Medications clopidogrel 75 mg tablet 75 mg PO QHS BLOOD THINNER 09/23/16 [History Last Taken 01/04/23] rosuvastatin 10 mg tablet 10 mg PO QHS CHOLESTEROL 06/08/18 [History Last Taken 11/11/22] aspirin 81 mg tablet,delayed release 81 mg PO DAILY HEART HEALTH 11/12/22 [History Last Taken 01/04/23] pantoprazole 20 mg tablet,delayed release 20 mg PO QHS ACID REFLUX 11/12/22 [History Last Taken 11/11/22] dicyclomine 10 mg capsule 20 mg (2 x 10 mg) PO Q6H PRN PRN abdominal pain #20 CAPSULES 04/14/23 [Rx Last Taken Unknown] oxycodone-acetaminophen 5 mg-325 mg tablet 1 tab PO Q6H PRN PRN Pain 3 days #12 TABLETS 04/14/23 [Rx Last Taken Unknown] Allergy/AdvReac Type Severity Reaction Status Date / Time omeprazole AdvReac Other Verified 04/14/23 08:44 Family History Father Colon cancer Mother COPD (chronic obstructive pulmonary disease) Lung cancer Concurrent tobacco use history. Surgical History (Updated 04/14/23 @ 09:24 by Justine Tovar) History of cholecystectomy History of esophagogastroduodenoscopy (EGD) History of liver biopsy Hx of cervical spine surgery Hx of colonoscopy Hx of myringotomy Hx of resection of stomach Hx of surgical procedure Social History household members: spouse Smoking Status: Current every day smoker tobacco type: cigarettes how long ago did patient quit smoking: Cut back over 2-3 weeks, down to 3 cig/day 10/09/22. alcohol intake: current alcohol intake frequency: a few times a month details: occasional use substance use type: does not use ROS ROS ED Constitutional Constitutional ED: Denies chills or fever(s) Eyes Eyes: Denies change in vision or diplopia ENT ENT ED: Denies rhinorrhea or sore throat Cardiovascular Cardiovascular: Denies chest pain or palpitations Respiratory/Chest Respiratory/Chest: Denies cough or dyspnea Gastrointestinal Gastrointestinal: Reports abdominal pain and other Details: 2 normal bowel movements this morning since having the beginning of the pain, normal ; Denies diarrhea, nausea or vomiting Genitourinary Genitourinary ED: Denies dysuria, hematuria or urinary frequency Musculoskeletal Musculoskeletal: Reports back pain; Denies neck pain Integumentary Denies abscess or rash Neurologic Neurologic: Denies headache(s), paresthesias or weakness Psychiatric Psychiatric: Denies anxiety or suicidal thoughts EXAM Physical Exam Const Vital Signs: 04/14/23 08:42 04/14/23 09:44 Temperature 97.9 F 98.2 F Temperature Source Temporal Temporal Pulse Rate 97 73 Respiratory Rate 28 H 14 Blood Pressure 157/131 H 142/110 H Blood Pressure Mean 139 120 Pulse Ox 100 100 Oxygen Delivery Method Room Air Room Air Positive well nourished and well developed Constitutional Narrative: Moaning in acute painful distress holding his abdomen General Appearance ED: well developed HEENT Reports moist mucous membranes normocephalic and atraumatic Eyes PERRL and EOMs intact bilaterally Neck full ROM and supple Resp normal respiratory effort and clear to auscultation bilaterally Cardio regular rate, regular rhythm and no murmurs GI non-distended GI Narrative: Well-healed midline abdominal scar. No palpable hernias. Very mild tenderness right lower quadrant, very mild left lower quadrant tenderness, otherwise benignabdomen and nontender upper abdomen. Auscultation: normoactive bowel sounds Palpation: soft Back/Spine no CVA tenderness General Back: other FROM Extremity normal to inspection General Extremety ED: Negative for edema, pulses abnormal or tenderness General Extremity: Negative for edema or pulses abnormal Neuro oriented x3, CN's II-XII intact bilaterally and no sensory deficits noted Sensorium / Orientation: awake and alert Motor Exam: strength 5/5 throughout Skin no rashes or lesions noted and no wounds MDM MDM MDM Narrative Medical decision making narrative: Patient with severe abdominal pain, differential includes kidney stone, bowel obstruction, plethora of other intra-abdominal emergencies including AAA but less likely given the location of the pain, unknown if he has had his appendix removed in the past but that is in the differential although less likely given the suddenly severe path of onset. I reviewed the labs and the CT, lactic acid is normal, this is thought less likely to be mesenteric ischemia since he has stents in and this pain is very focal. The lactic acid normal rules against this. There is no sign of any acute cause of this on the CT except for some signs of mild colitis in the left. I reviewed the images and report I agree with it. I discussed with Dr. Medina who this patient used to follow with, he suggest this is not indicative necessarily of acute ischemic colitis, he agrees his symptoms not necessarily consistent with that, and does not recommend anything other than pain control. Patient advised to follow-up with a specialist in [place] if he continues to have problems otherwise we will give him additional analgesia here, and have him follow-up as an outpatient he is comfortable with that plan, he was initially given Dilaudid that did not help his pain at all. GI indicates this patient does have a history of very difficult to control abdominal pain. Toradol really helped his pain. No sign of kidney stone on the CT, will prescribe him dicyclomine in addition to the Percocet. It is noted in the EMR that the patient has a history of high urine total porphyrins, so given this and his chronically recurring abdominal pain, acute porphyria is also in the differential but since he does not have significant anemia right now, no other acute intervention indicated at this time. Lab Data Attestation: I reviewed the patient's lab results. Labs: Laboratory Results - last 24 hr 04/14/23 04/14/23 04/14/23 08:57 10:25 11:08 WBC 8.5 RBC 4.71 Hgb 12.0 L Hct 38.9 L MCV 82.6 MCH 25.5 L MCHC 30.8 L RDW Std Deviation 43.2 RDW Coeff of Rashida 14.4 Plt Count 230 MPV 12.3 H Immature Gran % (Auto) 0.400 Neut % (Auto) 70.0 Lymph % (Auto) 16.3 L [place] % (Auto) 10.0 Eos % (Auto) 2.5 Baso % (Auto) 0.8 Absolute Neuts (auto) 5.9 Absolute Lymphs (auto) 1.38 Nucleated RBC % 0 Sodium 141 Potassium 3.5 Chloride 107 Carbon Dioxide 28.0 Anion Gap 6 BUN 12 Creatinine 0.99 Est GFR (MDRD) Af Amer 98 Est GFR (MDRD) Non-Af 81 BUN/Creatinine Ratio 12.1 Glucose 101 Lactic Acid 1.7 Calcium 9.3 Total Bilirubin 0.50 AST 25 ALT 30 Alkaline Phosphatase 111 Total Protein 7.5 Albumin 4.1 Globulin 3.4 Albumin/Globulin Ratio 1.2 Urine Color Yellow Urine Clarity Clear Urine pH 8.0 Ur Specific [place] 1.010 Urine Protein Negative Urine Glucose (UA) Normal Urine Ketones Negative Urine Occult Blood Negative Urine Nitrite Negative Urine Bilirubin Negative Urine Urobilinogen Normal Ur Leukocyte Esterase Negative Urine RBC 0 SEEN Urine WBC 0 SEEN Ur Squamous Epith Cells 0-5 SEEN Urine Bacteria 0 SEEN Urine Mucus 0 SEEN Radiography Diagnostic Testing: Clinical Impression(s) from Imaging Studies Abdomen/Pelvis CT 04/14/23 09:55 IMPRESSION: Status post stent placement at the origin of the celiac artery and superior mesenteric artery. Surgical changes are seen in the region of the second portion of the duodenum and stomach. Findings suggestive of a localized colitis in the rectosigmoid colon. Fatty infiltration of the liver. Electronically Signed: Ramon Miranda MD at 10:41 EDT , Rhythm Strip Rhythm Strip: Sinus Rhythm Rate: 95 Ectopy: None Management Discussion w/another healthcare provider: [employer] (GI friend) Discharge Plan Triage Chief Complaint: Abd Pain ED Provider: Moris Angela Dx/Rx/DC Orders Clinical Impression: Abdominal pain, acute, right lower quadrant Instructions: Abdominal Pain Prescriptions: New dicyclomine 10 mg capsule 20 mg PO Q6H PRN PRN (Reason: abdominal pain) Qty: 20 0RF oxycodone-acetaminophen [oxycodone-acetaminophen] 5-325 mg tablet 1 tab PO Q6H PRN PRN (Reason: Pain) 3 Days Qty: 12 0RF No Action clopidogrel 75 MG tablet 75 mg PO QHS Hold Instructions: hold for five days, then resume rosuvastatin 10 MG tablet 10 mg PO QHS aspirin 81 mg Tablet,Delayed Release (Dr/Ec) 81 mg PO DAILY pantoprazole 20 mg tablet,delayed release (DR/EC) 20 mg PO QHS Primary Care Provider: Hitesh Dai Referrals: Hitesh Dai MD [Primary Care Provider] - 3-5 Days if not improving (and/or yourGI doctor in [place]) Disposition Disposition: Home, Self Care What to do if you have Problems For any increased pain, shortness of breath, bleeding, nausea or vomiting, chestpain, or any unexpected problems, contact your Primary Care Provider. Call [facility] ([phone]) or report to the closest Emergency Room. Call 911 if necessary. 04/14/23 1323 <Electronically signed by Moris Angela MD> Cosigner Signature (if applicable): CC: Dr. Hitesh Dai MD ~ Signed [facility] Work Phone: [phone]) 156-710410-17-2023 Nurse Note* Radha Dasilva RN - 04/08/2023 1:17 PM EDT The patient is sleepy. Rolled to his side and covered his head. I asked him to scoot up in the bed.He did so and I elevated his head. He took sips of water. * Radha Dasilva RN - 04/08/2023 1:05 PM EDT The physician saw the patient. He was still sleepy. The doctor told him to do the stool tests at home. The patient replied yes tomorrow. I am writing it on the discharge paperwork. documented in this encounterSt[facility] Surgical operation note* Operative Report - George Culver MD - 04/08/2023 10:05 AM EDT OPERATIVE/PROCEDURE REPORT LOG ID: [id number] Surgery/Procedure Date: 04/08/2023 Incision/Procedure Start Time: 12:11 PM Incision Close/Procedure End Time: 12:27 PM Surgeon(s)/Proceduralist(s) and Ophthalmology Technician(s): Alexander Culver MD No Additional Staff Procedure(s): Esophagogastroduodenoscopy (EGD) with biopsy Anesthesia: Monitored anesthesia care Brief History: Hx of antrectomy w truncal vagotomy and REYGJ, then revision surgery bc of GOO, herefor a hx of melena though not lately and LUQ pain Procedure Details: The patient was placed in the left lateral decubitus position. A bite block was placed and medications administered as above. The Olympus gastroscope was used to intubate the oropharynx and esophagus with ease. We proceeded down to the SB gastric anastomosis. THere was a gastrojejunostomy. I was able to get thru into jejunun and its mucosa was nl. Random bx's done. The was an area of telescoped mucosa that I originally thought lead to SB but I believe it was the closed end ofthe GJ. There was a suture line line that was sl erosive but no bleeding. We then withdrew into thestomach and visualized a normal body. Biopsies were taken to rule out H. Pylori. Retroflexion was pe rformed and this showed a normal fundus and cardia. The squamocolumnar junction, GE junction and esophagus appeared normal. The scope was then withdrawn and the patient tolerated the procedure well. Pre-Op/Pre-Procedure Diagnosis: as above Post-Op/Post-Procedure Diagnosis: Post surgical anatomy as described No source of GIB 3. LUQ pain likely post surgical/adhesions vs musculoskeletal in nature Specimens: See above EBL: None Complications: None Recommendations:1. F/up path 2. Cont pantoprazole 20 mg daily 3. Stool studies as ordered. I/primary surgeon/proceduralist performed the entire procedure. George Culver MD SIGNATURE: George Culver MD PATIENT NAME: Ministerio Leal DATE: April 08, 2023 TIME: 12:35 PM PAGER/CONTACT #: [email or web address] documented in this encounterSt. [facility]10-[facility]23 Miscellaneous Notes* Addendum Note - Shannon Monk - 03/27/2023 11:47 AM EDTAddended by: SHANNON MONK on: 03/27/2023 11:47 AM Modules accepted: Orders documented in this encounterSt. [facility] Hospital10-[facility]-2023 Miscellaneous Notes* Telephone Encounter - Shannon Monk - 03/27/2023 11:47 AM EDT Surgery Checklist Type: EGD Dianostic Admission Type: outpatient Anesthesia: MAC Date: 04/08/23 Arrival Time: 9:05 AM Surgery Time: 10:05 AM Location: [place] Prep given to patient at appointment Shannon Monk March 27, 2023 11:48 AM documented in this encounterSt. [facility]10-[facility]23 History of Present illness Narrative* George Culver MD - 03/27/2023 9:44 AM EDT HPI: Ministerio Leal is a 62 year old male who presents for Constipation, Diarrhea, and New Patient. Pt has a hx of antrectomy a truncal vagotomy and REYGJ endo December, as well as I of the SMA for mesenteric ischemia in 2018. Says he has alos had stenting of the celiac artery. Had to have surgery in January for hematoma and GOO in January. Has in LUQ w more phys activity since the surgeries. I reviewed his last EGD at [place] in August. No pain after po, no further n/v since last surgery. Has gained a few#s since last surgery. Pt was admitted in late January for abd pain, nausea, black stools and Tx for constipation helped. Has some urgency to have a BM in the AM. Has semiformed to formed stools about 3-6 BMs. Colonoscopy at December diverticulosis found. Last LFTs ok. Current Outpatient Medications Medication Sig erythromycin DR (GEORGIA-TAB) 250 mg EC tablet Take 1 tablet by mouth three times daily with meals. ondansetron (ZOFRAN) 4 mg tablet Take 1 [...] Take 75 mg by mouth once daily. sucralfate (CARAFATE) 1 gram tablet Take 1 g by mouth as needed. aspirin 81 mg chewable tablet Take 1 tablet by mouth once daily. rosuvastatin (CRESTOR) 10 mg tablet Take 1 tablet by mouth daily at bedtime. No current facility-administered medications for this visit. PAST MEDICAL HISTORY Diagnosis Date Arthritis GERD [...] History Tobacco Use Smoking status: Every Day Years: 23 Types: Cigarettes Smokeless tobacco: Never Tobacco comments: 10-15 per day Vaping Use Vaping Use: Never used Substance Use Topics Alcohol use: No Comment: very very seldom Drug use: No Comment: used to smoke [employer] Meaning, 3 to 4 days per week ALLERGIES Allergen Reactions Omeprazole Other: See Comments Severe Headaches Senna Unknown Bottom lip swelled. Stopped swelling when senna dc REVIEW OF SYSTEMS GENERAL: No weight loss, malaise or fevers. [...] paralysis, seizures or tremors PHYSICAL EXAMINATION: BP 114/80 Pulse 82 Ht 5' 10 (1.78m) Wt 104 lb (47.2kg) BMI 14.92 kg/(m^2). GENERAL APPEARANCE: Well appearing, alert, in no acute distress, well-hydrated, well nourished.. SKIN: Skin color, texture, turgor normal, no suspicious rashes or lesions. EYES: Anicteric sclera. Pupils are equally round and reactive to light. Extraocular movements are intact. . NECK: Supple, no adenopathy; thyroid symmetric, normal size, no bruits. LUNGS: Lungs clear to auscultation. No wheezing, rhonchi, rales. HEART: RRR without murmur, gallop, or rubs. No ectopy. ABDOMEN: Normal, soft, non-tender, no masses or organomegaly. EXTREMITIES: No deformities, edema, skin discoloration, clubbing or cyanosis. NEUROLOGIC: Gait normal. Sensation and strength grossly intact.. ASSESSMENT AND PLAN: ASSESSMENT/PLAN: 1. LUQ pain - ICD9: 789.02, ICD10: R10.12 (primary diagnosis) - pain likely more post-op - EGD DIAGNOSTIC 2. Black stools - ICD9: 792.1, ICD10: K92.1 - EGD DIAGNOSTIC - off Plavix x 5 ds before, cont BASA daily 3. Change in bowel habits - ICD9: 787.99, ICD10: R19.4 - PANC ELASTASE, FECAL - FAT, FECAL QUAL 4. Malnutrition of moderate degree (HCC) - ICD9: 263.0, ICD10: E44.0 - FAT, FECAL QUAL George Culver MD documented in this encounterSt. [facility]09-13-2023 Miscellaneous Notes* Telephone Encounter - De Osei LPN - 03/05/2023 3:26 PM EDT Patient called into office, verified by name and . Stated that he was in the office yesterday tosbeto Herrera and was told to call in if his pain did not get any better by taking the medications at home. Per patient, the dilaudid that he was prescribed is barely touching the pain. Per Azalea, due to the patients pain increasing and being unrelieved with medications, patient should go to the ED for evaluation. Patient declined going to the ED for evaluation. Advised patient the importance of being seen and treated, and patient stated if it gets any worse then I guess ill go. Shreya DWYER documented in this encounterSt. [facility] Hospital09-12-2023 History of Present illness Narrative* Chapman, Azalea, PA-C - 03/04/2023 1:23 PM EDT Images from the original note were not included. Azalea Chapman PA-C [facility] [address] [facility], [address] [place] [address] SUBJECTIVE Ministerio Leal is a 62 year old male here for a post op visit. The patient is 6 weeks s/p antrectomy by Dr. Lewis for nonhealing gastric ulcer. His post op period was complicated by hematoma development and delayed gastric emptying. He has now been home for 3 weeks. He has been able to resume eating a regular diet. He was feeling overall well up until a few daysago when he developed diarrhea and increased abdominal pain. He states he is going to the bathroom every 30-60 minutes and has severe abdominal pain prior to going. He did not have this problem priorto surgery. He states when he has the pain, he gets nausea, but no vomiting. No fever/chills. No change in diet. He had stopped the erythromycin and was taking the reglan up until this morning. The ROS, medical, surgical, family, and social history were reviewed by Azalea Chapman PA-C OBJECTIVE BP 110/64 Pulse 65 Ht 177.8 cm (5' 10) SpO2 97% BMI 13.20 kg/m No weight on file for thisencounter. Physical Exam: General: Patient seated in no acute distress, appears mildly uncomfortable leaning forward in chair. Respiratory: Breathing comfortably on room air Cardiovascular: Regular rate Abdomen: Soft, non tender, non distended. Incision intact without erythema, edema, or discharge. Neurologic: He is alert and oriented to person, place, and time. Plan Surgery follow up Diarrhea The patient reports having diarrhea and worsening abdominal pain over the past few days. He appearsuncomfortable and states he has not had pain medication all day. No dark or tarry stools. He is hemodynamically stable. I discussed admitting him for workup if his pain is this severe, but he declined. I want to check his CBC for elevated WBC. Also I ordered a stool culture and to check for C diff as he was on antibiotics for several weeks.I also advised him to discontinue reglan and to stay off erythromycin. Will see what his labs show and go from there. Advised him if pain worsens, he has bloody bowel movements, dizziness, etc to go to ED. All questions were answered to the patient's satisfa ction and she is agreeable with the plan. Azalea Chapman PA-C 03/04/2023 2:48 PM documented in this encounterSt. [facility] Hospital08-29-2023 Miscellaneous Notes* Telephone Encounter - Araceli Crawford - 02/18/2023 2:59 PM EDT Received referral from Azalea Chapman to schedule patient for Chronic abdominal pain [R10.9, G89.29]. Confirmed with Test Puller that our office does not treat for this. LVM to advise patient ofthis. Araceli Crawford documented in this encounterSt. [facility] Hospital07-19-2023 History and physical note Author Kory Friend [facility] January 08, 2023 7:22am Note Date/Time January 08, 2023 7:22 am [facility] Medical Records Department [address] [place] [id number] History & Physical Exam 01/08/23720 MR#: [id number] Acct: [id number] Name: MINISTERIO LEAL Rep #:[id number] : 1960 62 From: Kory Medina DO PCP: Dr. Hitesh Dai MD Status:REG SD C Location: [place] [address] History and Physical Date of Admission: 01/08/23 Reason for Consultation: Abdominal pain HPI Narrative: MINISTERIO LEAL, is a 62 M who presented to the emergency department at [facility] on 08/24/2022 with a chief complaint of abdominal pain and intractable nausea vomiting.? He was in the emergency department at outside hospital in [place] yesterday per his report the lab work was unremarkable and the initial CT scan with contrast was read as normal but per documentation the radiologist called back later stating that he did have evidence of colitis and they attempted to contact the patient but were unable to get a hold of him. Arlene established with [facility] GI clinic 08.15.21 to establish care for GERD, abdominal pain, diverticulosis. He has been seen by several gastroenterologists,most recently with [facility]. His severe abdominal pain began 2006, US of abdomen found material in gallbladder and he underwent cholecystectomy. Following this he began having diarrhea with urgency. Abdominal pain, diarrhea, dark urine and white stools in prompted ED visit. ERCP performed removing choledocholithiasis. Lack of symptom improvement prompted CTA finding celiac and mesenteric occlusion; coupled with diarrhea, abdominal pain, nausea, vomiting he was transferred to specialty care where stents were placed. Had a similar episode four months later and another vascularstent was placed. Two additional episodes with stents placed, most recently ; currently two stents placed in celiac and two stents placed in mesenteric artery. EGD colonoscopy with F for coffee ground emesis. EGD found patchy and streaky erythema; hiatal hernia with patchy erythema; bilious staining with streaky erythema and shallow erosions in GE junction and possibly in esophagus. Biopsy indicative of possible early celiac disease. Colonoscopy found two tubular adenoma polyps and elevated CEA level and is established with [facility] oncology. There is a strong family history of cancer. His father passed from colon cancer and he has been having routine colonoscopies for several years. CTA 04.20.19 finding nonspecific colitis; thickening of urinary bladder; possible gastritis; possible urinary cystitis; common bile duct and mild intrahepatic ductal dilation. Colonoscopy last performed 01.29.21 with tubular adenoma polyps removed. CTA 06.22.21 as part of [facility] ED workup found patent celiac and mesenteric artery stents without occlusion or significant stenosis. Remaining study unremarkable for stenosis, dilation, mass or nodules. Following workup he was noted to be stable and discharged home. Presented to [facility] ED 09.12.21 with abdominal pain, coffee ground emesis and soft stools. Hemoglobin noted to be elevated likely secondary to mild dehydration andheavy smoking. Gastroenterology consulted same day and he was admitted for management of GIB. He was discharged 09.19.21. 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 CT abd/pel 09.12.21 found mild intrahepatic and CBD prominence, possibly r/t cholecystectomy; no CBD stone identified; stents noted in vasculature. CTA 09.13.21 found liver steatosis; evidence of colitis in transverse colon and left hemicolon; vascular stents noted and are patent; right common iliac artery calcified plaques causing moderate degree of obstruction. MRCP 09.18.21 with cholecystectomy changes noted. No acute or chronic findings. Last seen in clinic 08.15.21 with recommendation for EGD and colonoscopy, CT abd/pel, possible ursodiol in future. Weight loss likely r/t cigarettes. [facility] ED presentation 09.12.21 for worsening abdominal pain with emesis of black material with soft stools mixed with black. Gastroenterology consulted 09.12.21 for management of vomiting, weight loss and abdominal pain. EGD performed 09.12.21. He was discharged 09.12.21. 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 [facility] ED presentation 09.13.21 with continued abd pain and coffee ground emesis. Gastroenterology consulted 09.18.21. He was discharged 09.19.21. CTA abd/pel 09.13.21 finding known stents. Additional finding suggestive of colitis involving transverse and descending colons. Colonoscopy 10.11.21 finding hemorrhoids; diverticulosis RS colon, sigmoid colon,descending colon; four 1-2mm tubular adenoma polyps, tattooed; congested mucosa of terminal ileum. [facility] Medical History Arthritis Back pain Celiac artery stenosis Coagulopathy Difficulty chewing Difficulty swallowing Excessive bleeding Gastric reflux GI bleed High cholesterol History of diverticulitis History of GI bleed History of IBS History of steroid therapy History of stress test History of ulceration Injury of head and neck Kidney stones Mesenteric artery stenosis Migraine headache Migraines Smoker Smoker Ulcer Wears glasses Home Medications clopidogrel 75 mg tablet 75 mg PO QHS anti platelet 09/23/16 [History Last Taken 08/22/22] rosuvastatin 10 mg tablet 10 mg PO QHS cholesterol 06/08/18 [History Last Taken 08/22/22] aspirin 81 mg tablet 81 mg PO DAILY heart health 07/20/22 [History Last Taken 08/23/22] pantoprazole 40 mg tablet,delayed release (Protonix) 20 mg PO QHS acid reflux 07/20/22 [History Last Taken 08/22/22] ondansetron 4 mg disintegrating tablet 4 mg PO Q8H PRN PRN Nausea #10 tabs 08/24/22 [Rx Last Taken Unknown] oxycodone-acetaminophen 5 mg-325 mg tablet (Percocet) 1 tab PO Q8H PRN pain 3 days #10 tabs 08/24/22 [Rx Last Taken Unknown] Allergy/AdvReac Type Severity Reaction Status Date / Time omeprazole AdvReac Other Verified 08/24/22 14:47 Family History Father Colon cancerMother No cardiac disease Surgical History History of cholecystectomy History of esophagogastroduodenoscopy (EGD) Hx of cervical spine surgery Hx of colonoscopy Hx of surgical procedure Social History Smoking Status: Current every day smoker tobacco type: cigarettes alcohol intake: current details: occasional use substance use type: does not use ROS Constitutional Constitutional: Reports anorexia; Denies change in weight, chills, fatigue, fever(s), malaise, night sweats, weakness or other Eyes Eyes: Denies blurry vision, change in eye color, change in vision, discharge from eye(s), double vision, erythema, eye pain, loss of vision or other ENT HEENT: Denies abnormal hearing, dysphagia, ear pain, epistaxis, headache(s), hearing loss, nasal congestion, nasal discharge, post nasal drip, sinus pressure, sore throat or other Cardiovascular Cardiovascular: Denies chest pain, claudication, dyspnea on exertion, edema, lightheadedness, orthopnea, palpitations, paroxysmal nocturnal dyspnea, rapid heart rate, syncope or other Respiratory/Chest Respiratory/Chest: Denies cough, dyspnea, excessive phlegm production, hemoptysis, productive cough, shortness of breath at rest, shortness of breath with exertion, wheezing or other Gastrointestinal Gastrointestinal: Reports abdominal pain, nausea and vomiting; Denies coffee ground emesis, constipation, diarrhea, dyspepsia, hematemesis, hematochezia, loose stools, melena or other Genitourinary Genitourinary: Denies burning urination, difficulty urinating, dysuria, hematuria, nocturia, urinary frequency, urinary hesitancy, urinary incontinence,urinary urgency or other Musculoskeletal Musculoskeletal: Denies arthralgias, back pain, joint pain, joint stiffness, joint swelling, myalgias, neck pain or other Neurologic Neurologic: Denies abnormal gait, abnormal speech, confusion, disequilibrium, dizziness, focal weakness, headache(s), numbness, paresthesias, seizure-like activity, seizures, syncope, tingling, tremor(s) or other Psychiatric Psychiatric: Reports anxiety; Denies depression, homicidal ideation, suicidal ideation or other Endocrine Endocrinology: Denies change in body appearance, cold intolerance, excessive sweating, heat intolerance, polydipsia, polyuria or other Hematologic/Lymphatic Hematologic/Lymphatic: Denies anemia, easy bleeding, easy bruising, lymphadenopathy or other Allergic/Immunologic Allergic/Immunologic: Denies rhinitis, hives, eczemia, asthma or other Physical Exam Const alert, oriented x3 and no apparent distress General Appearance: cooperative HEENT normocephalic, head/scalp atraumatic and moist oral mucous membranes Eyes PERRL and EOMs intact bilaterally Neck no lymphadenopathy and supple Resp normal respiratory effort, normal air movement and clear to auscultation bilaterally Cardio regular rate, regular rhythm, S1 normal heart sound, S2 normal heart sound and no murmurs GI normal to inspection, nondistended, normoactive bowel sounds, soft to palpation,non-tender and non-distended Extremity normal capillary refill, no clubbing, cyanosis or edema and no calf tenderness Skin General Skin Exam: no breakdown Neuro CN's II-XII intact bilaterally, no focal motor deficits and no sensory deficits noted Motor Exam: strength 5/5 throughout Lab / Micro Data Result Diagrams: 08/26/22 04:57 08/26/22 04:57 Labs: Laboratory Results - last 24 hr 08/26/22 04:57: WBC 2.7 L, RBC 4.79, Hgb 14.5, Hct 42.0, MCV 87.7, MCH 30.3, MCHC 34.5, RDW Std Deviation 42.5, RDW Coeff of Rashida 13.2, Plt Count 106 L, MPV 12.6 H, Immature Gran % (Auto) 0.400, Neut % (Auto) 46.4 L, Lymph % (Auto) 31.5,[place] % (Auto) 21.0 H, Eos % (Auto) 0.0, Baso % (Auto) 0.7, Absolute Neuts (auto)1.2 L, Absolute Lymphs (auto) 0.84, Nucleated RBC % 0 08/26/22 04:57: Sodium 136, Potassium 3.2 L, Chloride 101, Carbon Dioxide 28.0, Anion Gap 7, BUN 12, Creatinine 0.95, Estim Creat Clear Calc 62.87, Est GFR (MDRD) Af Amer 104, Est GFR (MDRD) Non-Af 86, BUN/Creatinine Ratio 12.7, [id number], Calcium 8.2 L Assessment & Plan Assessment/Plan (1) Abdominal pain: PLAN: He is actually gained 5 pounds from being in the hospital. Even though he has not eaten anything. He can have clear liquids. I will perform an upper endoscopy on him tomorrow as a says his abdominal pain is consistent with when he previous had peptic ulcer disease. I told him that I will give him xanax forhis anxiety, Questran for his bile gastritis, Levsin for his pain if he will stop smoking. (2) he will also need a screening colonoscopy during his visit. He was explained alternatives, risk, benefits including not withstanding bleeding, infection, sepsis, perforation, need for emergent surgery . He will have an ASA of 3. 01/08/23 0722 <Electronically signed by Kory Medina DO> Cosigner Signature (if applicable): CC: Dr. Hitesh Dai MD; Kory Medina DO~ Signed [facility] Work Phone: 1(832) 895-163807-19-2023 Procedure [facility] 01-08-2023 Procedure [facility]06-26-2023 History of Present illness Narrative* Mary Lewis MD - 12/16/2022 3:53 PM EDT VIRTUAL VISIT PROGRESS NOTE This is a virtual visit using Audio only. It required patient-provider interaction for the medical decision making as documented below. I have communicated my name and active licensure. The patient's identity and physical location wereverified at the time of this visit. Either the patient or their legal technical account representative has been informed of the risks and benefits of -- and alternatives to -- treatment through a remote evaluation andconsents to proceed with the evaluation remotely. Ministerio Leal is a 62 year old male seen for possible SMA syndrome. He still having similar symptoms to her last visit. He has difficulty with large meals. He would like to go over his CT scan results. HISTORY REVIEWED (electronic chart updated): PAST MEDICAL HISTORY Diagnosis Date GERD (gastroesophageal reflux disease) Hiatal hernia Hx of fusion of cervical spine Mesenteric artery stenosis (HCC) PAST SURGICAL HISTORY Procedure Laterality Date ADDTL NECK SPINE FUSION CHOLECYSTECTOMY 2007 ESOPHAGOGASTRODUODENOSCOPY TRANSORAL DIAGNOSTIC 09/2014 EGD PAST SURGICAL HISTORY OF 2014 PPH-pierre in rectum/colon FAMILY HISTORY Problem Relation Age of Onset Cancer Mother lung Cancer Maternal Grandmother lung Colon Cancer Father Cancer Maternal Grandfather throat Cancer Maternal Aunt bone Social History Tobacco Use Smoking status: Every Day Years: 23.00 Types: Cigarettes Smokeless tobacco: Never Tobacco comments: 10-15 per day Vaping Use Vaping Use: Never used Substance Use Topics Alcohol use: No Comment: very very seldom Drug use: No Comment: used to smoke Make Meaning Current Outpatient Medications Medication Sig sucralfate (CARAFATE) 1 gram tablet Take 1 g by mouth as needed. pantoprazole DR (PROTONIX) 40 mg tablet Take 1 tablet by mouth twice daily before meals (0600/1600). (Patient taking differently: Take 20 mg by mouth once daily.) rosuvastatin (CRESTOR) 10 mg tablet Take 1 tablet by mouth daily at bedtime. aspirin 81 mg chewable tablet Take 1 tablet by mouth once daily. clopidogrel (PLAVIX) 75 mg tablet Take 1 tablet by mouth once daily. No current facility-administered medications for this visit. ALLERGIES Allergen Reactions Omeprazole Other: See Comments Headaches REVIEW OF SYSTEMS: GENERAL: no recent change in weight, admits to fatigue GI: Has abdominal pain and some nausea. Also has diarrhea PHYSICAL EXAMINATION: VIDEO EXAM: (if completed, performed via video enabled technology) No exam performed ASSESSMENT: (R10.13) Epigastric pain (primary encounter diagnosis) PLAN: I reviewed his CT scan. This does on my review shows some narrowing of the third portion of his duodenum. There is no upstream dilatation however he did not have any oral contrast with this. I had a long discussion with him and told him I would like to get this upper GI to assess if he has evidenceof narrowing. He also had a large amount of bile reflux causing gastritis so he may benefit from a possible antrectomy due to his chronic ongoing bile reflux issues. I will obtain the upper GI and follow-up with him after this. There are no Patient Instructions on file for this visit. It was necessary to convert the virtual visit to a telephone encounter due to technical difficulties. Mary Lewis MD documented [facility] encounter[facility] History of Present illness Narrative* Fide Petty, RT(R) - 12/11/2022 9:20 AM EDT Radiology Service Progress Note DATE OF SERVICE: December 11, 2022 TIME: 1:46 PM PATIENT IDENTITY VERIFICATION COMPLETED USING TWO (2) STANDARD IDENTIFIERS: Name and Date of confirmed by patient verbally. FALL SCREENING: Has the patient had 2 falls in the last year or 1 fall with injury or currently using an Ambulatory Assistive Device (Walker, Cane, Wheelchair, Crutches, etc.)? No PATIENT GENDER DATA: Male PATIENT RELEVANT IMPLANT DATA REVIEWED: Yes ALLERGIES: Reviewed and unchanged CONTRAST ALLERGY: NO. EXAM: CT -CONTRAST INDUCED NEPHROPATHY RISK FACTORS: Patient age > 60 years CREATININE: Creatinine Date Value Ref Range Status 12/02/2022 1.02 0.73 - 1.22 mg/dL Final 04/26/2022 1.10 0.73 - 1.22 mg/dL Final 08/26/2018 0.91 0.73 - 1.22 mg/dL Final Estimated Glomerular Filtration Rate Date Value Ref Range Status 12/02/2022 84 >=60 mL/min/1.73m Final Comment: Estimated Glomerular Filtration Rate (eGFR) is calculated using the 2020 CKD-EPI creatinine equation. This equation utilizes serum creatinine, sex, and age as parameters. The creatinine assay has traceable calibration to isotope dilution- mass spectrometry. Refer to KDIGO guidelines for clinical interpretation. In patients with unstable renal function, e.g. those with acute kidney injury, the eGFRmay not accurately reflect actual GFR. eGFR- Date Value Ref Range Status 08/26/2018 >60 Final P.O.C.T. RESULTS: POC done: Yes, See Lab Tab December 11, 2022 TREATMENT: N/A PERIPHERAL IV DATA: Ambulatory: A peripheral IV was started in the Right forearm with a Angio cath:18 gauge. RADIOLOGY DEPARTMENT: CT; Exam(s) Completed: CTA Abdomen Pelvis SIGNATURE: RT Elder(R) PATIENT NAME: Ministerio Leal DATE: December 11, 2022 TIME: 1:46 PM documented in this encounterSt. [facility]06-[facility] Miscellaneous Notes* Telephone Encounter - Sandra Mace RN - 02/04/2023 11:41 AM EDT I called Ministerio Leal to f/u on our previous conversation. He reports he took a Fioricet and feels20% better. He also states he had a substantial BM since we last spoke. I encouraged him to continue the bowel regimen of Miralax and Senna to help prevent constipation and to monitor his stools to make sure they do not get too loose and runny. I instructed him to take another Fioricet this evening to help decrease the radiating neck pain. I also reinforced with him that I spoke to with Dr. Arroyo and he agrees that he needs to f/u with his PCP to manage his pain medicine/neck pain and what hewas given in the hospital was to bridge the time until he can f/u with his PCP. He confirmed he received the discharge instructions and I informed him of his f/u appt on this Friday02/10/2023 at 2:30PM and I instructed him to call with any further questions or concerns and he agreed to do so. * Telephone Encounter - Sandra Mace RN - 02/04/2023 8:46 AM EDT Department of General Surgery Hepatobiliary and Surgical Oncology Post-Surgical Follow-Up Phone Call Ministerio Leal 1960 [phone] Surgery/Reason for Hospitalization: Exploratory Laparotomy, Antrectomy with Truncal Vagotomy, Chester Antonio Gastrojejunostomy, Celiac Neurolysis, Wound Vac Placement on 01/17 followed by an EGD on 01/25 and an Exploratory Laparotomy, Evacuation of Hematoma and a Relaxing Stitch to GJ Anastomosis for GOO on01/25February 04, 2023 8:46 AM Contact made with Patient-Ministerio Leal called me. Patient identified by name and -Yes My name is November. I am Dr. Lacey Arroyo's patient hospice care sales consultant. I will call weekly to check on how you are doing and feeling after surgery, and to see if you have any needs. If you find you have any questions, concerns, or needs throughout your surgical recovery, please let me know. You can call me directly at [phone]. General Constitution: How do you feel?: having a lot of pain How are you sleeping?: sleeping elevated on pillows. States his son in law is going to come and elevate his bed on blocks so he cans sleep on less pillows. Energy level?: reduced Mentation:? awake, alert, and oriented Family/Friends to help patient at home?:yes - ?Activity and ADL S:? Up to bed, chair, ambulating?: Yes Steps in/into home: Yes, if so, how many?: 3 into the home Assistive devices?: no assistance ADL's: Independent CHEST:? SOB-at rest OR with activity?:?No Wheezing?:?No Coughing/coughing up sputum?:?No Use of Incentive Spirometer?: No HEART:? Chest pain: No ABDOMEN:? Bloating: No-states he's burping a lot Pain: No? EXTREMITIES:? Swelling: none Pain: no SKIN: Any open areas on your body: drain sites-see below for drain documentation DIET/ELIMINATION:? Describe your appetite: I'm hungry but he cannot eat the volume he once was able to consume Nausea: No Vomiting: No Diarrhea: No Constipation: Yes Weight loss/gain: States he does not own a scale but he will obtain one to monitor his weight. Bowel Movements: states last BM was on 02/03 and it was a small amount Consistency: formed and hard Blood in stool: No Urination: denies difficulty voiding Burning: No Surgical pain:? Pain: Yes Rate: 5 Location: Abdomen Pain description: dull ache/cramping--states it is uncomfortable Medication regimen: Dilaudid Pain controlled with medications: Surgical pain is minimal compared to the reason for his call which is his head and neck pain. Refills Needed: No WOUND/INCISION:? Location: Abdomen Appearance: healing well, and without redness, swelling or drainage per Ministerio Dressing: pierre were removed in the hospital and the incision is open to air Fever/Chills: No Drains, tubes, wound vac: Drain: Removed prior to discharge How many: 0 Location: Right side of abdomen Drainage color: None currently-area open to air. States he cannot move his head, currently, to see it. Patient Concerns: Ministerio Leal called in with c/o a big knot at the back of his neck, on the rightside, which radiates to his right eye causing a stabbing pain and also radiates to his shoulder stopping in the shoulder blade, on the right side. He states when keeps the right side of his neck stretched, it feels better. He called to tell me the above and ask questions about his medications. He states he did not get a copy of his discharge summary and didn't know what medications he should and should not take. I viewed a copy of his discharge summary and informed him I will send him a copy via e-mail. I asked him if he has taken his Fioricet for migraines and he stated he had not. I instructed him to take one and to f/u with his PCP, Dr. Dai, who manages his pain medications for long standing neck pain. I informed him I will speak with Mikael Chapman PA-C and/or Dr. Arroyo and call him back when I have. documented in this encounterSt. [facility]06-01-2023 Miscellaneous Notes* Telephone Encounter - Sandra Mace RN - 02/06/2023 1:46 PM EDT Follow-Up Phone Call: Successful attempt to contact Ministerio Leal. He states he feels 50% better than he did the last time we spoke. He states he is using pillows for positioning and used a heating pad with some relief. Iencouraged him to call if he has any questions or concerns prior to his appointment, on Friday02.10.2023, and he agreed to do so. documented in this encounterSt. [facility]06-[facility]-2023 Miscellaneous Notes* Telephone Encounter - Sandra Mace RN - 02/13/2023 2:30 PM EDT Opened in error. documented in this encounterSt. [facility]06-01-2023 Miscellaneous Notes* Telephone Encounter - Sandra Mace RN - 02/13/2023 9:52 AM EDT Department of General Surgery Hepatobiliary and Surgical Oncology Post-Surgical Follow-Up Phone Call Ministerio Leal 1960 [id number] Surgery/Reason for Hospitalization:? Antrectomy with Chester-en-Y reconstruction Truncal vagotomy Celiac plexus neurolysis Exploratory laparotomy with evacuation of hematoma February 13, 2023 9:52 AM Contact made with [employer]-Pen-my called me Patient identified by name and -Name only General Constitution: How do you feel?: my back hurts How are you sleeping?: slept well until the pain medicine wore off. Energy level?: reduced Mentation:? awake, alert, and oriented Family/Friends to help patient at home?:yes ?Activity and ADL S:? Up to bed, chair, ambulating?: Yes Assistive devices?: no assistance ADL's: Independent CHEST:? SOB-at rest OR with activity?:?No HEART:? Chest pain: No ABDOMEN:? Bloating: No-states he has Gas-X for if/when he needs it Pain: No? EXTREMITIES:? Swelling: none Pain: no DIET/ELIMINATION:? Describe your appetite: fair-states it's not real good He is drinking Ensure to supplement Nausea: Yes-occurs after eating. He states it is controlled on Ondansetron and he states he needs arefill Vomiting: No Diarrhea: No Constipation: No Weight loss/gain: deferred Bowel Movements: last BM was on 02/12 Consistency: formed to loose Blood in stool: No Urination:No c/o difficulty urinating Burning: states he has slight burning with urination, but not every time Surgical pain:? Pain: Yes Rate: Did not rate this pain, but he did state that his neck/shoulder issues have resolved. Location: incisional 2 above his incision is where the pain is and also he c/o back pain over his kidneys Pain description: did not describe Medication regimen: Dilaudid Pain controlled with medications: Yes Refills Needed: Yes WOUND/INCISION:? Location: abdomen Appearance: healing well, looks really good Dressing: open to air Fever/Chills: No Drains, tubes, wound vac: Drain: Prior drain site is sore but w/o redness, swelling or drainage. Patient Concerns: Ministerio Leal called in to request refills for his Ondansetron and Dilaudid. I informed him I will speak with Dr. Arroyo and get back to him. documented in this encounterSt. [facility]06-01-2023 Miscellaneous Notes* Telephone Encounter - Sandra Mace RN - 02/19/2023 2:19 PM EDT Opened~unable to complete refill task. It was done manually. documented in this encounterSt. [facility]06-[facility]-2023 Miscellaneous Notes* Telephone Encounter - Sandra Mace RN - 02/19/2023 10:45 AM EDT Department of General Surgery Hepatobiliary and Surgical Oncology Post-Surgical Follow-Up Phone Call Ministerio Leal 1960 [phone] Surgery/Reason for Hospitalization:? 01/17 Exploratory laparotomy. 01/17 Antrectomy with truncal vagotomy and Chester-en-Y gastrojejunostomy. 01/17 Wound VAC placement. 01/17 Celiac neurolysis. 01/25 Exploratory Laparotomy 01/25 Evacuation of Hematoma 01/25 EGD February 19, 2023 10:45 AM Contact made with Patient-Yes Patient identified by name and -Name only General Constitution: How do you feel?: I'm getting by How are you sleeping?: OK Energy level?: improving--he has driven without difficulty Mentation: alert and oriented Family/Friends to help patient at home:yes- ?Activity and ADL S:? Up to bed, chair, ambulating?: Yes Assistive devices?: no assistance ADL's: Independent CHEST:? SOB-at rest OR with activity?:?No-unless he exerts himself HEART:? Chest pain: No ABDOMEN:? Bloating: No Pain: No? EXTREMITIES:? Swelling: none Pain: no DIET/ELIMINATION:? Describe your appetite: good-ate a hamburger yesterday and chicken and stuffing last week without N/V/D/C. Nausea: off and on--better after eating Vomiting: No Diarrhea: No Constipation: No Weight loss/gain: Deferred Bowel Movements: multiple times a day Consistency: Soft and formed Blood in stool: No Surgical pain:? Pain: Pain in the AM which is relieved after having a BM, but it starts at the top of his incision and travels all the way through his belly into his rectum Rate: No number rating given Location: Abdomen and rectal area Pain description: Soreness Medication regimen: Ministerio Leal states he spoke with the place we referred him to for pain management, and they told him they do not handle abdominal pain, but he states he doesn't think he will need them because he is weaning himself off of the narcotics. I suggested he try Ibuprofen and Acetaminophen. Pain controlled with medications: States he did not take any pain medication today, so far, or thispast Friday. Refills Needed: No WOUND/INCISION:? Location: Abdomen Appearance: healing well and the scabs are gone. He does c/o a silver dollar sized area to the right of his incision that is hard and hurts if he pushes on it. Scab to prior drain site is also gone and the site is without redness, swelling or drainage. Dressing: Open to air Fever/Chills: No Patient Concerns: All concerns as stated above. I informed him I will not call him next week because he has an office appt, but I instructed him to call if he has any concerns between now and then and he agreed to do so. documented in this encounterSt. [facility]06-01-2023 Miscellaneous Notes* Telephone Encounter - Sandra Mace RN - 02/28/2023 9:43 AM EDT Ministerio De León Leal was called and instructed to stop taking the Erythromycin, but continue the Reglan. He was also informed he may add raw fruits and vegetable to his diet, but to go slow and in small quantities. Ministerio conveyed an understanding to all that was discussed and his questions were answered. documented in this encounterSt. [facility] Hospital06-01-2023 Miscellaneous Notes* Telephone Encounter - Sandra Mace RN - 03/11/2023 3:05 PM EDT I spoke with Ministerio De León Mel briefly, and he states he pooped X6 today-soft stools. He states when heeats he has a bowel movement shortly thereafter. He states he has been eating eggs, bread and Ensure-no N/V. He states he needs to make an appointment with Dr. Medina and I informed him I will fax over the necessary documents today. documented in this encounterSt. [facility]06-01-2023 Miscellaneous Notes* Telephone Encounter - Sandra Mace RN - 03/13/2023 4:31 PM EDT Attempt made to contact Ministerio Leal. A message was left that Dr. Arroyo was referring him to and someone from his office will contact him to schedule an appointment. * Telephone Encounter - Sandra Mace RN - 03/13/2023 10:58 AM EDT Ministerio Leal states he received a call from Dr. Medina's office that he was too complex a patient for their practice and he will have to receive care elsewhere. I informed him I will speak with Dr. Arroyo to refer him to another caramel cutter hand. Ministerio states yesterday (03.12.2023) was a good day-no diarrhea. He had five BM's: the first two were hard and had a lot of volume with pain until it passed out of his body. He states currently, he is having no pain, but also states he hasn't eaten today. Ministerio states he returned to work on 03.10.2023. Ministerio states he had gas all night-burping and flatus. He states yesterday he ate half a sirloin steak, potatoes and green beans and within 30 of eating he had 12 hours of gut pain and 4 hours of pooping. Ministerio states he hasn't had any more issues with his blood sugar and confirmed he is drinking plenty of water. I informed him I will speak with Dr. Arroyo and call him back. 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 He stateshe is eating a diversified diet and eats 90% of what is on his plate. His bowel movements are all in the morning and he hasn't had diarrhea in quite some time. He states he is able to eat sugar with no problem and his incision is healing well and without redness, swelling or drainage. He does c/o pain on the right and left sides of his abdomen, if he rolls on his side. I encouraged him to call ifhe has any questions or concerns and he agreed to do so. documented in [facility] Hurst [facility] October 10, 2022 1:02am Note Date/Time October 09, 2022 4:2 2pm [facility] Medical Records Department [address] [place] [address] Emergency Department Summary 10/09/22 MR#: [id number] Acct: [id number] Name: MINISTERIO LEAL Rep #:[id number] : 1960 62 From: Aspen Thrasher O PCP: Dr. Hitesh Dai MD Status:ADM IN O Location: [place] [address] HPI HPI - GI History of Present Illness Chief Complaint: Abd Pain Informant: patient Narrative Narrative: Patient is a 62-year-old male with history of superior mesenteric artery syndrome, colitis, IBS, prepyloric ulcer and prior choledocholithiasis status post cholecystectomy presenting with worsening abdominal pain and nausea. Patient states his pain feels like his prior episodes of abdominal pain however this time he is not vomiting. He is nauseous. He states he started feel more nauseous today. The pain is below his sternum that radiates to his left and then down to his hip. States this feels like his prior episodes of pain. Patient states he has a prescription for hydromorphone which she has been taking over the past few days. He states he has had 1 pill a day. Did not have any today. Patient denies any black or blood in his stool. States he was well constipated today. 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 He also has evidence of colitis on CTA on 09/13/2021. [facility] Medical History Arthritis Celiac artery stenosis Difficulty chewing Difficulty swallowing Gastric reflux High cholesterol History of diverticulitis History of GI bleed History of IBS History of steroid therapy History of ulceration Injury of head and neck Kidney stones Mesenteric artery stenosis Mesenteric ischemia, chronic Migraine headache Smoker Wears glasses Home Medications clopidogrel 75 mg tablet 75 mg PO QHS anti platelet 09/23/16 [History Last Taken 08/22/22] rosuvastatin 10 mg tablet 10 mg PO QHS cholesterol 06/08/18 [History Last Taken 08/22/22] aspirin 81 mg tablet 81 mg PO DAILY heart health 07/20/22 [History Last Taken 08/23/22] pantoprazole 40 mg tablet,delayed release (Protonix) 20 mg PO QHS acid reflux 07/20/22 [History Last Taken 08/22/22] ondansetron 4 mg disintegrating tablet 4 mg PO Q8H PRN PRN Nausea #10 tabs 08/24/22 [Rx Last Taken Unknown] oxycodone-acetaminophen 5 mg-325 mg tablet (Percocet) 1 tab PO Q8H PRN pain 3 days #10 tabs 08/24/22 [Rx Last Taken Unknown] cholestyramine-aspartame 4 gram oral powder (Cholestyramine Light) 4 g PO DAILY #201.6 grams 09/06/22 [Rx Last Taken Unknown] Allergy/AdvReac Type Severity Reaction Status Date / Time omeprazole AdvReac Other Verified 10/09/22 15:30 Family History (Updated 10/09/22 @ 19:[address] Abigail Alonzo MD) Father Colon cancer Mother COPD (chronic obstructive pulmonary disease) Lung cancer Concurrent tobacco use history. Surgical History History of cholecystectomy History of esophagogastroduodenoscopy (EGD) Hx of cervical spine surgery Hx of colonoscopy Hx of surgical procedure Social History (Updated 10/09/22 @ 20:[address] Abigail Alonzo MD) household members: spouse Smoking Status: Current every day smoker tobacco type: cigarettes how long ago did patient quit smoking: Cut back over 2-3 weeks, down to 3 cig/day 10/09/22. alcohol intake: current alcohol intake frequency: a few times a month details: occasional use substance use type: does not use ROS ROS ED Constitutional Constitutional ED: Denies chills or fever(s) ENT ENT ED: Denies sore throat Cardiovascular Cardiovascular: Denies chest pain Respiratory/Chest Respiratory/Chest: Reports cough; Denies dyspnea Gastrointestinal Gastrointestinal: Reports abdominal pain, constipation and nausea; Denies diarrhea or vomiting Genitourinary Genitourinary ED: Denies dysuria or hematuria Musculoskeletal Musculoskeletal: Denies arthralgias or myalgias Integumentary Denies rash Neurologic Neurologic: Reports weakness; Denies headache(s) Hematologic/Lymphatic Hematologic/Lymphatic: Denies easy bleeding or easy bruising EXAM Physical Exam Const Vital Signs: 10/09/22 15:26 10/09/22 17:26 10/09/22 19:00 Temperature 97 F L Temperature Source Temporal Pulse Rate 99 Respiratory Rate 18 18 Blood Pressure 119/80 Blood Pressure Mean 93 Pulse Ox 97 Oxygen Delivery Method Room Air Positive well developed and cachectic Constitutional Narrative: Patient peers quite uncomfortable secondary to pain General Appearance ED: well developed and cachectic; Negative for pallor Nutritional Appearance: cachectic HEENT Reports dry mucous membranes normocephalic Mouth ED: Yes dry mucous membranes Mouth: dry mucous membranes Eyes PERRL and EOMs intact bilaterally Neck supple Resp normal respiratory effort and clear to auscultation bilaterally Resp Narrative: Harsh bronchial cough intermittently Cardio regular rate, regular rhythm and no murmurs GI GI Narrative: Diffuse tenderness. Voluntary guarding making it difficult to deeply palpate. Auscultation: normoactive bowel sounds Extremity full ROM General Extremety ED: Negative for edema General Extremity: Negative for edema Neuro moves all extremities Sensorium / Orientation: alert, oriented to person, oriented to place and oriented to time Motor Exam: Negative for general weakness Psych mental status grossly normal Mood & Affect: anxious Skin no wounds General Skin Exam: Negative for jaundice or pallor MDM MDM MDM Narrative Medical decision making narrative: Patient's evaluated for acute on chronic abdominal pain. Patient seems to have these episodes of pain. Has been thoroughly evaluated by GI here. He does havesignificant pathology. Patient has a prescription for hydromorphone at home which he has been taking intermittently and is is still having significant breakthrough pain. He does not have a leukocytosis. Patient's lipase is normal. His lactate is 1.4. Sodium mildly low at 131. Does have a bump in hiscreatinine of 1.31 which is above his baseline of 0.8. He is given IV fluid in the emergency room. He requires multiple aliquots of pain medication for further pain control. Case is discussed with DEN, Friend, states the patientreally just has chronic pain but he does have a lot of underlying pathology. Heagrees that without a leukocytosis, fever or other acute changes symptoms he does not need repeat imaging. Patient will be admitted for pain control and hydration given his ALBERT. He is agreeable with this plan of care. Case is discussed with Dr. Alonzo, hospitalist who accepts the patient History & Record Review Discussion w/independent historian: Patient and Family Lab Data Attestation: I reviewed the patient's lab results. Labs: Laboratory Results - last 24 hr 10/09/22 10/09/22 10/09/22 16:10 16:10 16:10 WBC 9.1 RBC 5.30 Hgb 16.4 Hct 46.8 MCV 88.3 MCH 30.9 MCHC 35.0 RDW Std Deviation 43.9 RDW Coeff of Rashida 13.7 Plt Count 265 MPV 12.4 H Immature Gran % (Auto) 0.600 Neut % (Auto) 72.2 H Lymph % (Auto) 15.6 L [place] % (Auto) 9.9 Eos % (Auto) 0.9 Baso % (Auto) 0.8 Absolute Neuts (auto) 6.6 Absolute Lymphs (auto) 1.42 Nucleated RBC % 0 Platelet Estimate ADEQUATE RBC Morphology N CHROM Anisocytosis RARE Sodium 131 L Potassium 4.9 Chloride 102 Carbon Dioxide 24.0 Anion Gap 5 BUN 18 Creatinine 1.31 H Estim Creat Clear Calc 40.65 Est GFR (MDRD) Af Amer 71 Est GFR (MDRD) Non-Af 59 L BUN/Creatinine Ratio 13.7 Glucose 96 Lactic Acid 1.4 Calcium 9.0 Total Bilirubin 0.50 AST 27 ALT 24 Alkaline Phosphatase 135 H Total Protein 7.6 Albumin 4.2 Globulin 3.4 Albumin/Globulin Ratio 1.2 Lipase Urine Color Urine Clarity Urine pH Ur Specific [place] Urine Protein Urine Glucose (UA) Urine Ketones Urine Occult Blood Urine Nitrite Urine Bilirubin Urine Urobilinogen Ur Leukocyte Esterase Urine RBC Urine WBC Ur Squamous Epith Cells Urine Bacteria Urine Mucus 10/09/22 10/09/22 16:10 17:41 WBC RBC Hgb Hct MCV MCH MCHC RDW Std Deviation RDW Coeff of Rashida Plt Count MPV Immature Gran % (Auto) Neut % (Auto) Lymph % (Auto) [place] % (Auto) Eos % (Auto) Baso % (Auto) Absolute Neuts (auto) Absolute Lymphs (auto) Nucleated RBC % Platelet Estimate RBC Morphology Anisocytosis Sodium Potassium Chloride Carbon Dioxide Anion Gap BUN Creatinine Estim Creat Clear Calc Est GFR (MDRD) Af Amer Est GFR (MDRD) Non-Af BUN/Creatinine Ratio Glucose Lactic Acid Calcium Total Bilirubin AST ALT Alkaline Phosphatase Total Protein Albumin Globulin Albumin/Globulin Ratio Lipase 33 Urine Color Yellow Urine Clarity Clear Urine pH 6.0 Ur Specific [place] 1.015 Urine Protein 15 H Urine Glucose (UA) Normal Urine Ketones 5 H Urine Occult Blood 10 H Urine Nitrite Negative Urine Bilirubin Negative Urine Urobilinogen Normal Ur Leukocyte Esterase 25 H Urine RBC 0 SEEN Urine WBC 0 SEEN Ur Squamous Epith Cells 0 SEEN Urine Bacteria 0 SEEN Urine Mucus RARE Rhythm Strip Rhythm Strip: Sinus Rhythm Rate: 94 Ectopy: None EKG Initial EKG: Attestation: I personally reviewed and interpreted this EKG as follows: Interpretation: Sinus Rhythm Comments: Normal sinus rhythm with sinus arrhythmia rate of 94 bpm Rightward axis Biatrial enlargement Pulmonary disease pattern Normal ST segments Compared to prior EKG on 08/27/2022 patient is no longer bradycardic and has more pronounced pulmonary disease pattern Management Discussion w/another healthcare provider: Hospitalist and Stator Connector Additional Tests and Interventions Diagnositc testing considered but not performed: Ct abd/pelvis- see MDM Discharge Plan Dx/Rx/DC Orders Clinical Impression: Dehydration, ALBERT (acute kidney injury), Intractable abdominal pain Disposition Disposition: Acute Care Hospital [facility] Discharge Date/Time: 10/09/22 20:28 What to do if you have Problems For any increased pain, shortness of breath, bleeding, nausea or vomiting, chestpain, or any unexpected problems, contact your Primary Care Provider. Call [facility] ([phone]) or report to the closest Emergency Room. Call 911 if necessary. 10/10/22 0102 <Electronically signed by Aspen Hurst DO> Cosigner Signature (if applicable): CC: Dr. Hitesh Dai MD ~ Signed [facility] Work Phone: [phone] 105-972604-19-2023 History and physical note Author Dr. Alonzo [facility] October 09, 2022 8:05pm Note Date/Time October 09, 2022 7:4 0pm [facility] Medical Records Department [address] [place] [id number] History & Physical Exam 10/09/222004 MR#: [id number] Acct: [id number] Name: MINISTERIO LEAL Rep #:[id number] : 1960 62 From: Abigail Alonzo MD PCP: Dr. Hitesh Dai MD Status:ADM IN O Location: [place] [id number] HPI - General General Date of Admission: 10/09/22 Date of Service: 10/09/22 Chief Complaint: Abdominal pain, nausea. HPI Narrative The patient is a 62 y/o M w/ PMHx: Chronic neck pain with associated Migraines, Anxiety and Depression, CKD stage II, 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, IBS, Hx prepyloric ulcer w/ GERD w/ Hx GI bleed, Hx prior Choledocholithasis s/p cholecystectomy, Tobacco use, recent admission 08/26/22- 08/28/22 for abdominal pain, intractable nausea in the setting of chronic mesenteric ischemia who presents to the [facility] ED on 10/09/22 with history of worsening abdominal discomfort and nausea increasing on day of presentation with his abdominal discomfort reported below his sternum with radiation to his left and then downward to the left lower quadrant with recent prescription for hydromorphone which he has been taking with no self administration of pain medication on day of presentation with admitted constipation with no recent black or bright red blood appearing stools but givennot improved prompted ED evaluation. Patient reports his pain 6 out of 10 and in severity and again very focally in that specific region with aching/throbbingdiscomfort but more severe and sharp stabbing with palpation. He notes the painseems worse if he goes prolonged periods of time without food. He notes the pain comes and goes. He does state he seems a little better if he eats chicken noodle soup but this is short-lived. He also reports having a fishing trip withhis friend in [place] returning this past Friday with onset of congestion as well as mild headache and coughing on Friday but this seems to have improved and his primary care physician he reports given medications for possible bronchitis. He notes that his abdominal discomfort is similar to what he had previously and this started approximately 2 days ago. Work-up in the ED included T37, heart rate 99, respiratory rate 18, 97% oxygenation, CBC with WC 9.1, hemoglobin 16.4, platelet 265 without marked shift, CMP with sodium 131, BUN/creat 18/1.31, alk phos 135 otherwise hepatic profile not marked appearing, lactic acid 1.4, lipase 33, urinalysis unremarkable. In the ED patient administered normal saline, Zofran 4 mg IV x1, Dilaudid 0.5 mg IV x2, dextrose amp. ED discussed patient case and presentation with Dr. Carol CRENSHAW. [facility] Medical History Arthritis Celiac artery stenosis Difficulty chewing Difficulty swallowing Gastric reflux High cholesterol History of diverticulitis History of GI bleed History of IBS History of steroid therapy History of ulceration Injury of head and neck Kidney stones Mesenteric artery stenosis Mesenteric ischemia, chronic Migraine headache Smoker Wears glasses Home Medications clopidogrel 75 mg tablet 75 mg PO QHS anti platelet 09/23/16 [History Last Taken 08/22/22] rosuvastatin 10 mg tablet 10 mg PO QHS cholesterol 06/08/18 [History Last Taken 08/22/22] aspirin 81 mg tablet 81 mg PO DAILY heart health 07/20/22 [History Last Taken 08/23/22] pantoprazole 40 mg tablet,delayed release (Protonix) 20 mg PO QHS acid reflux 07/20/22 [History Last Taken 08/22/22] ondansetron 4 mg disintegrating tablet 4 mg PO Q8H PRN PRN Nausea #10 tabs 08/24/22 [Rx Last Taken Unknown] oxycodone-acetaminophen 5 mg-325 mg tablet (Percocet) 1 tab PO Q8H PRN pain 3 days #10 tabs 08/24/22 [Rx Last Taken Unknown] cholestyramine-aspartame 4 gram oral powder (Cholestyramine Light) 4 g PO DAILY #201.6 grams 09/06/22 [Rx Last Taken Unknown] Allergy/AdvReac Type Severity Reaction Status Date / Time omeprazole AdvReac Other Verified 10/09/22 15:30 Family History (Updated 10/09/22 @ 19:[address] Abigail Alonzo MD) Father Colon cancer Mother COPD (chronic obstructive pulmonary disease) Lung cancer Concurrent tobacco use history. Surgical History History of cholecystectomy History of esophagogastroduodenoscopy (EGD) Hx of cervical spine surgery Hx of colonoscopy Hx of surgical procedure Social History (Updated 10/09/22 @ 20:[address] Abigail Alonzo MD) household members: spouse Smoking Status: Current every day smoker tobacco type: cigarettes how long ago did patient quit smoking: Cut back over 2-3 weeks, down to 3 cig/day 10/09/22. alcohol intake: current alcohol intake frequency: a few times a month details: occasional use substance use type: does not use ROS ROS Narrative Admission Review of Systems: CONSTITUTIONAL: No weight loss, fever, chills, + weakness or fatigue. HEENT: + Congestion, rhinorrhea, chronic headaches/migraines. Eyes: No visual loss, blurred vision, double vision or yellow sclerae. Ears, Nose, Throat: No hearing loss, sneezing or sore throat. SKIN: No rash or itching, lesions, wounds. CARDIOVASCULAR: + Chest congestion. No chest pain, chest pressure or chest discomfort, palpitations, edema, orthopnea, syncopal events. RESPIRATORY: + Recent cough with occasional wheeze, resolved. No marked sputum production, hemoptysis. GASTROINTESTINAL:+ anorexia, nausea without vomiting, abdominal pain, occasionalissues with constipation. No diarrhea, melena, BRBPR. GENITOURINARY: No dysuria, frequency, urgency or retention. NEUROLOGICAL: No headache, dizziness, syncope, paralysis, ataxia, numbness or tingling in the extremities, focal weakness, change in bowel or bladder control,seizure. MUSCULOSKELETAL:+ muscle, back pain, joint pain or stiffness. HEMATOLOGIC: No anemia, bleeding or bruising. LYMPHATICS: No enlarged nodes. No history of splenectomy. PSYCHIATRIC: + history of depression or anxiety. ENDOCRINOLOGIC: No reports of sweating, cold or heat intolerance. No polyuria orpolydipsia. ALLERGIES: No history of asthma, hives, eczema or rhinitis. Vital Signs Vital Signs Vital Signs: 10/09/22 15:26 10/09/22 17:26 10/09/22 19:00 Temperature 97 F L Temperature Source Temporal Pulse Rate 99 Respiratory Rate 18 18 Blood Pressure 119/80 Blood Pressure Mean 93 Pulse Ox 97 Oxygen Delivery Method Room Air Weight Weight: 107 lb Body Mass Index (BMI) 15.3 Physical Exam Narrative Physical Examination: General: Awake, alert, oriented x 3 and cooperative, seated upright in the ED bed, fatigued appearing, reports pain currently 6 out of 10 in severity to his abdomen, does sound nasally/congested but notes he is improved. Skin: Normal color, normal turgor, no icterus, no cyanosis. HEENT: AT/NC, EOMI, PERRLA, moderately dry MM, no carotid bruits or JVD noted. Lungs: Diminished, greater bases, moderate effort, currently no rales, ronchi orwheezing. Heart: Regular rate and rhythm; no gallop, rub audible. Abdomen: Soft, notable discomfort with palpation between the umbilicus and the lower sternal region with some voluntary guarding, no obvious distention, mildlydecreased bowel sounds, no obvious HSM. Extremities: No cyanosis, clubbing, or edema. Neurological: Patient awake, alert, oriented x 3, cognitive function intact; pupils equally reactive to light and accommodation, cranial nerves II-XII grossly normal, moving all 4 extremities, no focal deficits, strength moderatelyglobal decrease secondary to acute complaints. Psychiatric: Affect appears fatigued, uncomfortable with evaluation, no acute evidence of depressive or anxiety feelings. Results Lab / Micro Data Result Diagrams: 10/09/22 16:10 10/09/22 16:10 Labs: Laboratory Results - last 24 hr 10/09/22 16:10: WBC 9.1, RBC 5.30, Hgb 16.4, Hct 46.8, MCV 88.3, MCH 30.9, MCHC 35.0, RDW Std Deviation 43.9, RDW Coeff of Rashida 13.7, Plt Count 265, MPV 12.4 H, Immature Gran % (Auto) 0.600, Neut % (Auto) 72.2 H, Lymph % (Auto) 15.6 L, [place] % (Auto) 9.9, Eos % (Auto) 0.9, Baso % (Auto) 0.8, Absolute Neuts (auto) 6.6, Absolute Lymphs (auto) 1.42, Nucleated RBC % 0, Platelet Estimate ADEQUATE, RBC Morphology N CHROM, Anisocytosis RARE 10/09/22 16:10: Sodium 131 L, Potassium 4.9, Chloride 102, Carbon Dioxide 24.0, Anion Gap 5, BUN 18, Creatinine 1.31 H, Estim Creat Clear Calc 40.65, Est GFR (MDRD) Af Amer 71, Est GFR (MDRD) Non-Af 59 L, BUN/Creatinine Ratio 13.7, Glucose 96, Calcium 9.0, Total Bilirubin 0.50, AST 27, ALT 24, Alkaline Phosphatase 135 H, Total Protein 7.6, Albumin 4.2, Globulin 3.4, Albumin/Globulin Ratio 1.2 10/09/22 16:10: Lactic Acid 1.4 10/09/22 16:10: Lipase 33 10/09/22 17:41: Urine Color Yellow, Urine Clarity Clear, Urine pH 6.0, Ur Specific [place] 1.015, Urine Protein 15 H, Urine Glucose (UA) Normal, Urine Ketones 5 H, Urine Occult Blood 10 H, Urine Nitrite Negative, Urine Bilirubin Negative, Urine Urobilinogen Normal, Ur Leukocyte Esterase 25 H, Urine RBC 0 SEEN, Urine WBC 0 SEEN, Ur Squamous Epith Cells 0 SEEN, Urine Bacteria 0 SEEN, Urine Mucus RARE Assessment & Plan Assessment/Plan (1) Superior mesenteric artery syndrome: PLAN: Plan The patient is a 62 y/o M w/ PMHx: Chronic neck pain with associated Migraines, Anxiety and Depression, CKD stage II, 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, IBS, Hx prepyloric ulcer w/ GERD w/ Hx GI bleed, Hx prior Choledocholithasis s/p cholecystectomy, Tobacco use, recent admission 08/26/22- 08/28/22 for abdominal pain, intractable nausea in the setting of chronic mesenteric ischemia who presents to the [facility] ED on 10/09/22 with history of worsening abdominal discomfort and nausea increasing on day of presentation with his abdominal discomfort reported below his sternum with radiation to his left and then downward to the left lower quadrant with recent prescription for hydromorphone which he has been taking with no self administration of pain medication on day of presentation with admitted constipation with no recent black or bright red blood appearing stools but given not improved prompted ED evaluation. #1. Recurrent Acute on Chronic Intractable Abdominal Pain/Nausea suspected secondary to Chronic Mesenteric Ischemia and recently noted Marylu-Najera tear, erythematous mucosa in the gastric, mild duodenitis, acquired duodenal stenosis and narrowing with stenosis in the third portion of the duodenum possibly secondary superior mesenteric artery syndrome: Given intractable pain and nauseawill admit to MS, will re- consult Dr. Medina GI, will allow clears only, maintain on IV PPI, continue asa, plavix, statin, PRN oral and IV pain regimen, PRN antiemetics, of note most recent CTA Abd/Pelvis 09/18/21 with vascular stentsat the origin of the celiac artery and superior mesenteric artery noted to be patent but given symptoms will hydrate and repeat renal Fx in AM w/ planned CTA Abd/Pelvis to assure no recurrent stenosis as etiology unless renal function worsens. Given recent MW tear with clip will hold on heparin drip in the interimunless imaging concerning for vascular intervention needs. #2. Acute Mild Renal Insufficiency on Chronic Kidney Disease Stage II: Secondary to decreased oral intake with #1. Admission BUN/Cr 18/1.31, baseline renal function primarily 0.8- maximum 1.1, repeat BMP in AM. #3. Recent upper respiratory infection/acute viral syndrome with questionable bronchitis: Patient is feeling improved but given his symptoms will to be cautious obtain COVID PCR, he is not hypoxic and given timeline from onset the Friday prior would consider out of infectious range even if COVID-positive at this time. #4. Hx Superior mesenteric artery stenosis/celiac artery stenosis w/ chronic mesenteric ischemia: s/p multiple stents in both celiac artery and SMA, will continue patient home aspirin, Plavix, statin therapy, continue intervention andtreatment as noted #1. #5. Hx Prepyloric ulcer w/ GERD w/ Hx GI bleed with chronic gastritis and AVMs as well as chronic duodenitis: We will maintain on IV PPI, EGD 09/12/2021 with chronic gastritis with hemorrhage and at that time 3 bleeding AVMs in the stomach as well as chronic duodenitis-->recent admission with EGD 08/27/2022 with evidence of a Marylu-Najera tear with clip placed, erythematous mucosa in the gastric body which was biopsied, mild duodenitis, acquired duodenal stenosis andnarrowing with stenosis in the third portion of the duodenum possibly secondary superior mesenteric artery syndrome. #6. Hx prior Choledocholithasis s/p cholecystectomy: Currently given presentation will allow clears only, continue cholestyramine home regimen. #7. Tobacco Abuse: Encouraged cessation, inpatient consultation per RT, NR if desired. #8. Anxiety and depression: From prior admission records patient is on Cymbalta, not on medication regimen listed, will clarify and add if appropriate. #9. Chronic migraines: Patient with chronic migraines with history of cervical neck surgery, uses as needed migraine medication per his report outpatient. #10. DVT prophylaxis: SCDs given recent intervention with Marylu-Najera tear and clipping but if CTA obtained following overnight judicious hydration given mild insufficiency is notable for any concerning vascular findings low thresholdto add heparin drip at that time. #11. CODE status: Patient LILLI is his and living will is currently in place. Discussed CODE status at length including difference between FULL code, DNR-CCA and DNR-CC status. Following discussions about the differences in these status, requested Full Code status. Advanced Care Planning Face to Face Time: 16minutes. Admission Evaluation Time spent evaluating chart, patient history, patient evaluation, care planning and discussion with specialists: 75 minutes. Charges/Coding Visit Charges Inpatient E&M: 86232 Init Hosp L3 Procedures Hospitalists Procedures: 56274 Advncd Care Plan 30 Min 10/09/222004 <Electronically signed by Abigail Alonzo MD> Cosigner Signature (if applicable): CC: Dr. Abigail Alonzo MD; Dr. Hitesh Dai MD~ Signed [facility] Work Phone: [phone]) 740-773704-04-2023 Miscellaneous Notes* Telephone Encounter - Casi Dangeloick - 09/24/2022 10:48 AM EDT FAX referral call. No answer no Voicemail to leave message. PT ref for: NEW/ongoing ABD pain with food intake. contunues to have weight loss. /would like to be evaluated for possiable sugical intervention for SMAS /Ref from: Dr. Horn Friend [facility] Progress note Author Kory Medina [facility] August 28, 2022 12:51pm Note Date/Time August 28, 2022 12:5 1pm [facility] Medical Records Department [address] [place] [id number] Progress Note 08/28/22 0800 MR#: [id number] Acct: [id number] Name: MINISTERIO LEAL Rep #:[id number] : 1960 62 From: Kory Medina DO PCP: Dr. Hitesh Dai MD Status:ADM IN Location: [facility] [id number] Subjective Subjective Patient underwent upper endoscopy yesterday for worsening abdominal pain. He was discovered to have gastritis in the gastric antrum and gastric thought to besecondary to bile gastritis. He also had a narrowing at the third portion of the duodenum that was seen with questionable vascularity that is possibly secondary to superior mesenteric artery syndrome. Biopsies for H. pylori are pending Objective Data Objective Data Vital Signs: Vital Signs Temp Pulse Resp BP Pulse Ox O2 Del Method 98.1 F 68 18 122/77 H 97 Room Air 08/28/22 08:30 08/28/22 08:30 08/28/22 08:30 08/28/22 08:30 08/28/22 08:30 08/28/22 08:30 Oxygen Delivery Method Room Air Weight: 113 lb 8.609 oz Body Mass Index (BMI) 16.2 Intake & Output: Intake and Output for Last 24 Hours 08/26/22 08/27/22 08/28/22 23:59 23:59 23:59 Intake Total 2067.33 / 2067. 3471.66 / 3471.66 Balance / 3471.66 / 3471.66 Lab / Micro Data Result Diagrams: 08/28/22 06:05 08/28/22 06:05 Labs: Laboratory Results - last 24 hr 08/28/22 06:05: WBC 12.0 H, RBC 5.16, Hgb 15.7, Hct 44.5, MCV 86.2, MCH 30.4, MCHC 35.3, RDW Std Deviation 41.0, RDW Coeff of Rashida 13.0, Plt Count 130 L, MPV 12.9 H, Immature Gran % (Auto) 0.400, Neut % (Auto) 82.5 H, Lymph % (Auto) 6.0 L, [place] % (Auto) 10.9 H, Eos % (Auto) 0.0, Baso % (Auto) 0.2, Absolute Neuts (auto) 9.9 H, Absolute Lymphs (auto) 0.72 L, Nucleated RBC % 0 08/28/22 06:05: Sodium 134 L, Potassium 3.9, Chloride 101, Carbon Dioxide 26.0, Anion Gap 7, BUN 10, Creatinine 0.87, Estim Creat Clear Calc 64.95, Est GFR (MDRD) Af Amer 115, Est GFR (MDRD) Non-Af 95, BUN/Creatinine Ratio 11.5, [id number], Calcium 8.8 Physical Exam Const alert, oriented x3 and no apparent distress General Appearance: cooperative HEENT normocephalic, head/scalp atraumatic and moist oral mucous membranes; Negative for hearing grossly normal bilaterally Eyes PERRL, EOMs intact bilaterally and conjunctivae normal Eyes Narrative: No scleral icterus Neck no lymphadenopathy, supple, no JVD and no carotid bruits Lymph Lymphatic: no lymphadenopathy noted and no lymphedema noted Resp normal respiratory effort, normal air movement, no retractions, no use of accessory muscles and clear to auscultation bilaterally Auscultation: Negative for rales, rhonchi or wheezes Cardio regular rate, regular rhythm, S1 normal heart sound, S2 normal heart sound, no murmurs, no rub, no gallops and no clicks GI normal to inspection, nondistended, normoactive bowel sounds, soft to palpation and non-distended GI Narrative: moderate epigastric tenderness, no guarding or rebound tenderness Extremity normal capillary refill, no clubbing, cyanosis or edema and no calf tenderness Extremity Narrative: 1+ pedal pulses bilateral lower extremities, 2+ radial pulses Neuro oriented x3, CN's II-XII intact bilaterally, moves all extremities, no focal motor deficits and no sensory deficits noted Speech: speech normal Motor Exam: strength 5/5 throughout Psych Mood & Affect: anxious Assessment & Plan Assessment/Plan (1) Thrombocytopenia: PLAN: Thrombocytopenia is possibly nutritional. This needs to be followed by record producer. It is chronic thrombocytopenia. (2) Mesenteric ischemia, chronic: PLAN: This imaging of his mesenteric vasculature is did not show any signs of blockages in his mesenteric stents that were previously placed. He said that heis trying to stop smoking. 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 He wasoffered Chantix and other patches but he said he tried that and it has not helped in the past. 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 Recommend to follow-up with vascular surgery and gastroenterology in the clinic. Continue PPI and Carafate as previously ordered. Charges/Coding Visit Charges Inpatient E&M: 80738 Subs Hosp L3 08/28/22 1251 <Electronically signed by Kory Medina DO> Kory Medina DO Cosigner Signature (if applicable): CC: ~ Signed [facility] Work Phone: [phone] 704-929803-08-[address] Elliott [facility] August 28, 2022 4:28pm Note Date/Time August 28, 2022 11:2 5am [facility] Medical Records Department [address] [place] [address] Discharge Summary 08/28/22 1125 MR#: [id number] Acct: [id number] Name: MINISTERIO LEAL Rep #:[id number] : 1960 62 From: Joan Elliott MD PCP: Dr. Hitesh Dai MD Status:ADM IN Location: [place] [address] Providers Date of Admission: 08/26/22 Date of Discharge: 08/28/22 Primary Care Physician: Dr. Hitesh Dai MD Consultations 08/26/22 17:53 Consult: Gastroenterology Routine Consulting Provider: Kory Medina Reason for Consult: abd pain/nausea EMERGENT Consult: No MD Notified: Yes Date Notified: 08/26/22 Time Notified: 17:53 Method of Notification: Text Reason For Visit: INTRACTABLE NAUSEA/VOMITING, ABD PAIN 2/2 Diagnosis Discharge Diagnosis (1) Mesenteric ischemia, chronic: Status: Chronic Code(s): K55.1 - Chronic vascular disorders of intestine (2) Abdominal pain: Status: Acute Code(s): R10.9 - Unspecified abdominal pain Plan #Intractable abdominal pain in the setting of chronic mesenteric ischemia * still says he is having abdominal pain, mainly in the epigastric region * GI on board. For EGD today * currently NPO * has multiple stents in his celiac artery and superior mesenteric artery * on IV zofran * amylase and lipase were WNL * IV PPI * #GERd: on PPI #ANxiety and depression; on cymbalta DVT prophylaxis: lovenox Medications at Discharge Home Medications clopidogrel 75 mg tablet 75 mg PO QHS anti platelet 09/23/16 rosuvastatin 10 mg tablet 10 mg PO QHS cholesterol 06/08/18 aspirin 81 mg tablet 81 mg PO DAILY [facility] 07/20/22 pantoprazole 40 mg tablet,delayed release (Protonix) 20 mg PO QHS acid reflux 07/20/22 ondansetron 4 mg disintegrating tablet 4 mg PO Q8H PRN PRN Nausea #10 tabs 08/24/22 oxycodone-acetaminophen 5 mg-325 mg tablet (Percocet) 1 tab PO Q8H PRN pain 3 days #10 tabs 08/24/22 Hospital Course Operations None Procedures EGD Summary of Care Provided Minutes Spent on Discharge: 50 Hospital Course: Patient is a 62-year-old male with a past medical history as outlined was admitted through the ED on 08/24/2022 with a complaint of abdominal pain and intractable nausea and vomiting which have been going on for about 3 days. He had been seen in the emergency room at outside hospital in [place] on the day before admission and in shock CAT scan done was read as normal but radiologist apparently subsequently called back saying there was evidence of colitis. They could not get in touch with the patient. His abdominal pain persisted so he came in to the [facility] ED. He had seen gastroenterology several times on outpatient basis and had had a liver elastography which showed mild to moderate liver fibrosis. He also had a history of mesenteric ischemia and had had 2 stents placed in the celiac and mesenteric arteries. Patient was still smoking but had been counseled to quit. On admission labs were significant for sodium of 134 and CTA of the abdomen and pelvis done the day before it showed mild colitis was otherwise normal. Pain was intractable so he was admitted and managed for intractable abdominal pain and nausea and vomiting. He was hydratedwith fluids and given IV Zofran as well as IV pain medication. Pain still persisted so gastroenterology was consulted as patient said he had a history of peptic ulcer. He did have EGD which showed Marylu-Najera tear and a clip was placed. It also showed erythematous mucosa in the gastric body which was biopsied as well as bile duodenitis and acquired duodenal stenosis with narrowing and stenosis in the third portion of the duodenum likely due to superior mesenteric artery syndrome. Patient was started on a diet but he was able to tolerate a full liquid diet. He did eat some Landeros's mother brought in but was unable to tolerate that and was counseled to advance his diet very slowly. Patient was discharged home on 08/28/2022. He is to follow-up with his primary care doctor and follow-up with gastroenterology. He was counseled to quit smoking. Patient seen and examined prior to discharge. He had no active complaints and had an uneventful night. Review of systems otherwise negative. Labs and vitalsreviewed. Home medication reviewed and reconciled. Physical Exam Const alert, oriented x3 and no apparent distress General Appearance: cooperative, comfortable and well kempt Orientation / Consciousness: awake Exam Limitations: no limitations HEENT normocephalic, head/scalp atraumatic and moist oral mucous membranes; Negative for hearing grossly normal bilaterally Mouth: oral and palatal mucosa normal Eyes PERRL, EOMs intact bilaterally and conjunctivae normal Eyes Narrative: No scleral icterus Neck no lymphadenopathy, supple, no JVD and no carotid bruits Lymph Lymphatic: no lymphadenopathy noted and no lymphedema noted Resp normal respiratory effort, normal air movement, no retractions, no use of accessory muscles and clear to auscultation bilaterally Resp Narrative: Diffusely diminished but clear Auscultation: Negative for rales, rhonchi or wheezes Cardio regular rate, regular rhythm, S1 normal heart sound, S2 normal heart sound, no murmurs, no rub, no gallops and no clicks GI normal to inspection, nondistended, normoactive bowel sounds, soft to palpation,non-tender and non-distended GI Narrative: minimal epigastric tenderness, no guarding or rebound tenderness Extremity normal capillary refill, no clubbing, cyanosis or edema and no calf tenderness Extremity Narrative: 1+ pedal pulses bilateral lower extremities, 2+ radial pulses Skin no rashes or lesions noted General Skin Exam: no breakdown Neuro oriented x3, CN's II-XII intact bilaterally, moves all extremities, no focal motor deficits and no sensory deficits noted Speech: speech normal Motor Exam: strength 5/5 throughout Psych affect normal Weight / BMI Weight Weight: 113 lb 8.609 oz Body Mass Index (BMI) 16.2 ABG / Lab / Microbiology Data Result Diagrams: 08/28/22 06:05 08/28/22 06:05 Laboratory: Laboratory Results - last 24 hr 08/28/22 06:05: WBC 12.0 H, RBC 5.16, Hgb 15.7, Hct 44.5, MCV 86.2, MCH 30.4, MCHC 35.3, RDW Std Deviation 41.0, RDW Coeff of Rashida 13.0, Plt Count 130 L, MPV 12.9 H, Immature Gran % (Auto) 0.400, Neut % (Auto) 82.5 H, Lymph % (Auto) 6.0 L, [place] % (Auto) 10.9 H, Eos % (Auto) 0.0, Baso % (Auto) 0.2, Absolute Neuts (auto) 9.9 H, Absolute Lymphs (auto) 0.72 L, Nucleated RBC % 0 08/28/22 06:05: Sodium 134 L, Potassium 3.9, Chloride 101, Carbon Dioxide 26.0, Anion Gap 7, BUN 10, Creatinine 0.87, Estim Creat Clear Calc 64.95, Est GFR (MDRD) Af Amer 115, Est GFR (MDRD) Non-Af 95, BUN/Creatinine Ratio 11.5, [id number], Calcium 8.8 D/C Instructions Discharge Diet: Low fat / Low cholesterol Discharge Activity: Return to Normal Activity Weight Bearing Status: Weight bearing as tolerated Call your doctor if you observe: Fever of 101 or Higher, Shortness of breath, Dizziness, Swelling in the ankles and Chest pain Meaningful Use Info Meaningful Use Diagnoses (Choose all that apply): None applicable Discharge Plan Admission Admit Date/Time: 08/26/22 08:49 Primary Reason for Your Visit: intractable abdominal pain Attending Provider: Joan Elliott Primary Care Provider: Hitesh Dai Consulting Providers: Cheryle Yarbrough ; Juan Lawrence ; Kory Medina Instructions Patient Instructions: ED Vomiting (Adult), ED Abdominal Pain Unkn Cause Male... Discharge Orders/Prescriptions Prescriptions: New oxycodone-acetaminophen [Percocet] 5-325 mg tablet 1 tab PO Q8H PRN (Reason: pain) 3 Days Qty: 10 0RF ondansetron 4 mg tablet,disintegrating 4 mg PO Q8H PRN PRN (Reason: Nausea) Qty: 10 0RF Continued clopidogrel 75 MG tablet 75 mg PO QHS Hold Instructions: hold for five days, then resume rosuvastatin 10 MG tablet 10 mg PO QHS pantoprazole [Protonix] 40 mg tablet,delayed release (DR/EC) 20 mg PO QHS No Action aspirin 81 mg Tablet 81 mg PO DAILY Referrals / Follow Up: Kory Medina DO [Med Staff - Active Staff] - 1-2 Weeks Hitesh Dai MD [Primary Care Provider] - Disposition Disposition (needs filled in before D/C Order can be placed): Home, Self Care Charges/Coding Visit Charges Inpatient E&M: 53826 Disch Hosp >30min 08/28/22 1628 <Electronically signed by Joan Elliott MD> Cosigner Signature (if applicable): CC: Dr. Joan Elliott MD; Dr. Hitesh Dai MD~ Signed [facility] Work Phone: [phone]) 106-449403-08-[address] Elliott [facility] August 28, 2022 11:24am Note Date/Time August 28, 2022 11:2 4am [facility] Medical Records Department [address] [place] [address] Instructions for Home/Discharge Instructions 08/28/22 1124 MR#: [id number] Acct: [id number] Name: MINISTERIO LEAL Rep #:[id number] : 1960 62 From: Joan Elliott MD PCP: Dr. Hitesh Dai MD Status:ADM IN Discharge Instructions Diet Discharge Diet: Low fat / Low cholesterol Activity Discharge Activity: Return to Normal Activity Weight Bearing Status: Weight bearing as tolerated Dressing / Incision Call your doctor if you observe: Fever of 101 or Higher, Shortness of breath, Dizziness, Swelling in the ankles and Chest pain Follow Up Care Test Results: Test results from this visit will be discussed in further detail at your follow- up appointment, if applicable. Discharge Plan Admission Admit Date/Time: 08/26/22 08:49 Primary Reason for Your Visit: intractable abdominal pain Attending Provider: Joan Elliott Primary Care Provider: Hitesh Dai Consulting Providers: Cheryle Yarbrough ; Juan Lawrence ; Kory Medina Instructions Patient Instructions: ED Vomiting (Adult), ED Abdominal Pain Unkn Cause Male... Discharge Orders/Prescriptions Prescriptions: New oxycodone-acetaminophen [Percocet] 5-325 mg tablet 1 tab PO Q8H PRN (Reason: pain) 3 Days Qty: 10 0RF ondansetron 4 mg tablet,disintegrating 4 mg PO Q8H PRN PRN (Reason: Nausea) Qty: 10 0RF Continued clopidogrel 75 MG tablet 75 mg PO QHS Hold Instructions: hold for five days, then resume rosuvastatin 10 MG tablet 10 mg PO QHS pantoprazole [Protonix] 40 mg tablet,delayed release (DR/EC) 20 mg PO QHS No Action aspirin 81 mg Tablet 81 mg PO DAILY Referrals / Follow Up: Kory Medina DO [Med Staff - Active Staff] - 1-2 Weeks Hitesh Dai MD [Primary Care Provider] - Disposition Disposition (needs filled in before D/C Order can be placed): Home, Self Care 08/28/22 1124<Electronically signed by Joan Elliott MD>Joan Elliott MD CC: Dr. Cheryle Yarbrough DO; Dr. Juan Lawrence MD; Dr. Hitesh Dai MD; Kory Medina, ~ Signed [facility] Work Phone: [phone]) [phone] Elliott [facility] August 27, 2022 5:39pm Note Date/Time August 27, 2022 10:4 1am [facility] Medical Records Department [address] [place] [address] Progress Note 08/27/22 1033 MR#: [id number] Acct: [id number] Name: MINISTERIO LEAL Rep #:[id number] : 1960 62 From: Joan Elliott MD PCP: Dr. Hitesh Dai MD Status:ADM IN Location: [place] [address] Subjective Subjective Patient seen and examined. H still complains of abdominal pain. He denies any nausea, vomiting, fever, chills, chest pain, nausea or vomiting. Review of systems is otherwise negative. He has remained hemodynamically stable. Objective Data Objective Data Vital Signs: Vital Signs Temp Pulse Resp BP Pulse Ox O2 Del Method 99.1 F 56 L 16 115/72 99 Room Air 08/27/22 07:30 08/27/22 07:30 08/27/22 07:30 08/27/22 07:30 08/27/22 07:30 08/27/22 08:45 Oxygen Delivery Method Room Air Weight: 120 lb Body Mass Index (BMI) 17.2 Intake & Output: Intake and Output for Last 24 Hours 08/25/22 08/26/22 08/27/22 23:59 23:59 23:59 Intake Total 2701.67 / 2701.67 2068.33 / 8.33 968.33 / 968.33 Balance 2701.67 / 2701.67 2068.33 / 8.33 968.33 / 968.33 Lab / Micro Data Result Diagrams: 08/27/22 06:10 08/27/22 06:10 Labs: Laboratory Results - last 24 hr 08/27/22 06:10: WBC 2.4 L, RBC 5.08, Hgb 15.5, Hct 44.6, MCV 87.8, MCH 30.5, MCHC 34.8, RDW Std Deviation 42.8, RDW Coeff of Rashida 13.2, Plt Count 112 L, MPV 11.8, Immature Gran % (Auto) 1.200 H, Neut % (Auto) 42.8 L, Lymph % (Auto) 34.6,[place] % (Auto) 19.8 H, Eos % (Auto) 0.8, Baso % (Auto) 0.8, Absolute Neuts (auto)1.0 L, Absolute Lymphs (auto) 0.84, Nucleated RBC % 0 08/27/22 06:10: Sodium 137, Potassium 3.6, Chloride 103, Carbon Dioxide 26.0, Anion Gap 8, BUN 9, Creatinine 0.90, Estim Creat Clear Calc 66.36, Est GFR (MDRD) Af Amer 110, Est GFR (MDRD) Non-Af 91, BUN/Creatinine Ratio 10.0, [id number], Calcium 8.5 Physical Exam Const alert, oriented x3 and no apparent distress General Appearance: cooperative HEENT normocephalic, head/scalp atraumatic and moist oral mucous membranes; Negative for hearing grossly normal bilaterally Eyes PERRL, EOMs intact bilaterally and conjunctivae normal Eyes Narrative: No scleral icterus Neck no lymphadenopathy, supple, no JVD and no carotid bruits Lymph Lymphatic: no lymphadenopathy noted and no lymphedema noted Resp normal respiratory effort, normal air movement, no retractions, no use of accessory muscles and clear to auscultation bilaterally Auscultation: Negative for rales, rhonchi or wheezes Cardio regular rate, regular rhythm, S1 normal heart sound, S2 normal heart sound, no murmurs, no rub, no gallops and no clicks GI normal to inspection, nondistended, normoactive bowel sounds, soft to palpation and non-distended GI Narrative: moderate epigastric tenderness, no guarding or rebound tenderness Extremity normal capillary refill, no clubbing, cyanosis or edema and no calf tenderness Extremity Narrative: 1+ pedal pulses bilateral lower extremities, 2+ radial pulses Neuro oriented x3, CN's II-XII intact bilaterally, moves all extremities, no focal motor deficits and no sensory deficits noted Speech: speech normal Motor Exam: strength 5/5 throughout Psych Mood & Affect: anxious Assessment & Plan Assessment/Plan (1) Mesenteric ischemia, chronic: (2) Abdominal pain: PLAN: Plan #Intractable abdominal pain in the setting of chronic mesenteric ischemia * still says he is having abdominal pain, mainly in the epigastric region * GI on board. For EGD today * currently NPO * has multiple stents in his celiac artery and superior mesenteric artery * on IV zofran * amylase and lipase were WNL * IV PPI * #GERd: on PPI #ANxiety and depression; on cymbalta DVT prophylaxis: lovenox Charges/Coding Visit Charges Inpatient E&M: 04157 Subs Hosp L2 08/27/22 1739 <Electronically signed by Joan Elliott MD> Joan Elliott MD Cosigner Signature (if applicable): CC: ~ Signed [facility] Work Phone: 1(303) [phone] Procedure [facility] 08-27-2022 Procedure [facility]03-07-2023 Consult note Author Kory Medina [facility] August 27, 2022 2:25pm Note Date/Time August 26, 2022 6:21 pm [facility] Medical Records Department [address] [place] [address] Consultation - GI 08/26/22 1820 MR#: [id number] Acct: [id number] Name: MINISTERIO LEAL Rep #:[id number] : 1960 62 From: Kory Medina DO PCP: Dr. Hitesh Dai MD Status:ADM IN Location: [facility] [place] JE095-7 HPI Consult Data Date of Consult: 08/26/22 HPI Narrative Reason for Consultation: Abdominal pain HPI Narrative: MINISTERIO LEAL, is a 62 M who presented to the emergency department at [facility] on 08/24/2022 with a chief complaint of abdominal pain and intractable nausea vomiting.? He was in the emergency department at outside hospital in [place] yesterday per his report the lab work was unremarkable and the initial CT scan with contrast was read as normal but per documentation the radiologist called back later stating that he did have evidence of colitis and they attempted to contact the patient but were unable to get a hold of him. ?Ministerio established with [facility] GI clinic 08.15.21 to establish care for GERD, abdominal pain, diverticulosis. He has been seen by several gastroenterologists,most recently with [facility]. His severe abdominal pain began 2006, US of abdomen found material in gallbladder and he underwent cholecystectomy. Following this he began having diarrhea with urgency. Abdominal pain, diarrhea, dark urine and white stools in prompted ED visit. ERCP performed removing choledocholithiasis. Lack of symptom improvement prompted CTA finding celiac and mesenteric occlusion; coupled with diarrhea, abdominal pain, nausea, vomiting he was transferred to specialty care where stents were placed. Had a similar episode four months later and another vascularstent was placed. Two additional episodes with stents placed, most recently ; currently two stents placed in celiac and two stents placed in mesenteric artery. EGD colonoscopy with [facility] for coffee ground emesis. EGD found patchy and streaky erythema; hiatal hernia with patchy erythema; bilious staining with streaky erythema and shallow erosions in GE junction and possibly in esophagus. Biopsy indicative of possible early celiac disease. Colonoscopy found two tubular adenoma polyps and elevated CEA level and is established with [facility]. There is a strong family history of cancer. His father passed from colon cancer and he has been having routine colonoscopies for several years. CTA 04.20.19 finding nonspecific colitis; thickening of urinary bladder; possible gastritis; possible urinary cystitis; common bile duct and mild intrahepatic ductal dilation. Colonoscopy last performed 01.29.21 with tubular adenoma polyps removed. CTA 06.22.21 as part of [facility] ED workup found patent celiac and mesenteric artery stents without occlusion or significant stenosis. Remaining study unremarkable for stenosis, dilation, mass or nodules. Following workup he was noted to be stable and discharged home. Presented to [facility] ED 09.12.21 with abdominal pain, coffee ground emesis and soft stools. Hemoglobin noted to be elevated likely secondary to mild dehydration andheavy smoking. Gastroenterology consulted same day and he was admitted for management of GIB. He was discharged 09.19.21. 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 CT abd/pel 09.12.21 found mild intrahepatic and CBD prominence, possibly r/t cholecystectomy; no CBD stone identified; stents noted in vasculature. CTA 09.13.21 found liver steatosis; evidence of colitis in transverse colon and left hemicolon; vascular stents noted and are patent; right common iliac artery calcified plaques causing moderate degree of obstruction. MRCP 09.18.21 with cholecystectomy changes noted. No acute or chronic findings. Last seen in clinic 08.15.21 with recommendation for EGD and colonoscopy, CT abd/pel, possible ursodiol in future. Weight loss likely r/t cigarettes. [facility] ED presentation 09.12.21 for worsening abdominal pain with emesis of black material with soft stools mixed with black. Gastroenterology consulted 09.12.21 for management of vomiting, weight loss and abdominal pain. EGD performed 09.12.21. He was discharged 09.12.21. 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 [facility] ED presentation 09.13.21 with continued abd pain and coffee ground emesis. Gastroenterology consulted 09.18.21. He was discharged 09.19.21. CTA abd/pel 09.13.21 finding known stents. Additional finding suggestive of colitis involving transverse and descending colons. Colonoscopy 10.11.21 finding hemorrhoids; diverticulosis RS colon, sigmoid colon,descending colon; four 1-2mm tubular adenoma polyps, tattooed; congested mucosa of terminal ileum. [facility] Medical History Arthritis Back pain Celiac artery stenosis Coagulopathy Difficulty chewing Difficulty swallowing Excessive bleeding Gastric reflux GI bleed High cholesterol History of diverticulitis History of GI bleed History of IBS History of steroid therapy History of stress test History of ulceration Injury of head and neck Kidney stones Mesenteric artery stenosis Migraine headache Migraines Smoker Smoker Ulcer Wears glasses Home Medications clopidogrel 75 mg tablet 75 mg PO QHS anti platelet 09/23/16 [History Last Taken 08/22/22] rosuvastatin 10 mg tablet 10 mg PO QHS cholesterol 06/08/18 [History Last Taken 08/22/22] aspirin 81 mg tablet 81 mg PO DAILY heart health 07/20/22 [History Last Taken 08/23/22] pantoprazole 40 mg tablet,delayed release (Protonix) 20 mg PO QHS acid reflux 07/20/22 [History Last Taken 08/22/22] ondansetron 4 mg disintegrating tablet 4 mg PO Q8H PRN PRN Nausea #10 tabs 08/24/22 [Rx Last Taken Unknown] oxycodone-acetaminophen 5 mg-325 mg tablet (Percocet) 1 tab PO Q8H PRN pain 3 days #10 tabs 08/24/22 [Rx Last Taken Unknown] Allergy/AdvReac Type Severity Reaction Status Date / Time omeprazole AdvReac Other Verified 08/24/22 14:47 Family History Father Colon cancer Mother No cardiac disease Surgical History History of cholecystectomy History of esophagogastroduodenoscopy (EGD) Hx of cervical spine surgery Hx of colonoscopy Hx of surgical procedure Social History Smoking Status: Current every day smoker tobacco type: cigarettes alcohol intake: current details: occasional use substance use type: does not use ROS Constitutional Constitutional: Reports anorexia; Denies change in weight, chills, fatigue, fever(s), malaise, night sweats, weakness or other Eyes Eyes: Denies blurry vision, change in eye color, change in vision, discharge from eye(s), double vision, erythema, eye pain, loss of vision or other ENT HEENT: Denies abnormal hearing, dysphagia, ear pain, epistaxis, headache(s), hearing loss, nasal congestion, nasal discharge, post nasal drip, sinus pressure, sore throat or other Cardiovascular Cardiovascular: Denies chest pain, claudication, dyspnea on exertion, edema, lightheadedness, orthopnea, palpitations, paroxysmal nocturnal dyspnea, rapid heart rate, syncope or other Respiratory/Chest Respiratory/Chest: Denies cough, dyspnea, excessive phlegm production, hemoptysis, productive cough, shortness of breath at rest, shortness of breath with exertion, wheezing or other Gastrointestinal Gastrointestinal: Reports abdominal pain, nausea and vomiting; Denies coffee ground emesis, constipation, diarrhea, dyspepsia, hematemesis, hematochezia, loose stools, melena or other Genitourinary Genitourinary: Denies burning urination, difficulty urinating, dysuria, hematuria, nocturia, urinary frequency, urinary hesitancy, urinary incontinence,urinary urgency or other Musculoskeletal Musculoskeletal: Denies arthralgias, back pain, joint pain, joint stiffness, joint swelling, myalgias, neck pain or other Neurologic Neurologic: Denies abnormal gait, abnormal speech, confusion, disequilibrium, dizziness, focal weakness, headache(s), numbness, paresthesias, seizure-like activity, seizures, syncope, tingling, tremor(s) or other Psychiatric Psychiatric: Reports anxiety; Denies depression, homicidal ideation, suicidal ideation or other Endocrine Endocrinology: Denies change in body appearance, cold intolerance, excessive sweating, heat intolerance, polydipsia, polyuria or other Hematologic/Lymphatic Hematologic/Lymphatic: Denies anemia, easy bleeding, easy bruising, lymphadenopathy or other Allergic/Immunologic Allergic/Immunologic: Denies rhinitis, hives, eczemia, asthma or other Physical Exam Const alert, oriented x3 and no apparent distress General Appearance: cooperative HEENT normocephalic, head/scalp atraumatic and moist oral mucous membranes Eyes PERRL and EOMs intact bilaterally Neck no lymphadenopathy and supple Resp normal respiratory effort, normal air movement and clear to auscultation bilaterally Cardio regular rate, regular rhythm, S1 normal heart sound, S2 normal heart sound and no murmurs GI normal to inspection, nondistended, normoactive bowel sounds, soft to palpation,non-tender and non-distended Extremity normal capillary refill, no clubbing, cyanosis or edema and no calf tenderness Skin General Skin Exam: no breakdown Neuro CN's II-XII intact bilaterally, no focal motor deficits and no sensory deficits noted Motor Exam: strength 5/5 throughout Lab / Micro Data Result Diagrams: 08/26/22 04:57 08/26/22 04:57 Labs: Laboratory Results - last 24 hr 08/26/22 04:57: WBC 2.7 L, RBC 4.79, Hgb 14.5, Hct 42.0, MCV 87.7, MCH 30.3, MCHC 34.5, RDW Std Deviation 42.5, RDW Coeff of Rashida 13.2, Plt Count 106 L, MPV 12.6 H, Immature Gran % (Auto) 0.400, Neut % (Auto) 46.4 L, Lymph % (Auto) 31.5,[place] % (Auto) 21.0 H, Eos % (Auto) 0.0, Baso % (Auto) 0.7, Absolute Neuts (auto)1.2 L, Absolute Lymphs (auto) 0.84, Nucleated RBC % 0 08/26/22 04:57: Sodium 136, Potassium 3.2 L, Chloride 101, Carbon Dioxide 28.0, Anion Gap 7, BUN 12, Creatinine 0.95, Estim Creat Clear Calc 62.87, Est GFR (MDRD) Af Amer 104, Est GFR (MDRD) Non-Af 86, BUN/Creatinine Ratio 12.7, [id number], Calcium 8.2 L Assessment & Plan Assessment/Plan (1) Abdominal pain: PLAN: He is actually gained 5 pounds from being in the hospital. Even though hehas not eaten anything. He can have clear liquids. I will perform an upper endoscopy on him tomorrow as a says his abdominal pain is consistent with when he previous had peptic ulcer disease. I told him that I will give him xanax forhis anxiety, Questran for his bile gastritis, Levsin for his pain if he will stop smoking. Charges/Coding Visit Charges Inpatient E&M: 27408 Init Hosp L3 08/27/22 1425 <Electronically signed by Kory Medina DO> Cosigner Signature (if applicable): CC: Dr. Cheryle Yarbrough DO; Dr. Juan Lawrence MD; Dr. Hitesh Dai MD; Kory Medina DO~ Signed [facility] Work Phone: [phone] 423-469803-05-[address] Lawrence [facility] August 25, 2022 9:34am Note Date/Time August 25, 2022 9:27 am [facility] Medical Records Department [address] [address] Progress Note - Hospitalist 08/25/22923 MR#: [id number] Acct: [id number] Name: MINISTERIO LEAL Rep #:[id number] : 1960 62 From: Juan frost MD PCP: Dr. Hitesh Dai MD Status:ADM IN O Location: MS3 QU812-0 Subjective Subjective Continues to have abdominal pain with nausea and vomiting, no diarrhea Objective Data Objective Data Vital Signs: Vital Signs Temp Pulse Resp BP Pulse Ox O2 Del Method 98.2 F 68 18 118/65 97 Room Air 08/25/22 08:11 08/25/22 08:11 08/25/22 08:11 08/25/22 08:11 08/25/22 08:11 08/25/22 08:11 Oxygen Delivery Method Room Air Weight: 120 lb Body Mass Index (BMI) 17.2 Intake & Output: Intake and Output for Last 24 Hours 08/24/22 08/25/22 08/26/22 03:59 03:59 03:59 Intake Total 1999 1000 / 1000 Balance 1999 Lab / Micro Data Result Diagrams: 08/25/22 04:45 08/25/22 04:45 Labs: Laboratory Results - last 24 hr 08/24/22 15:15: WBC 4.7, RBC 4.97, Hgb 15.1, Hct 43.6, MCV 87.7, MCH 30.4, MCHC 34.6, RDW Std Deviation 44.2 H, RDW Coeff of Rashida 13.6, Plt Count 116 L, MPV 13.1H, Immature Gran % (Auto) 0.200, Neut % (Auto) 59.4, Lymph % (Auto) 10.6 L, [place]% (Auto) 29.6 H, Eos % (Auto) 0.0, Baso % (Auto) 0.2, Absolute Neuts (auto) 2.8,Absolute Lymphs (auto) 0.50 L, Nucleated RBC % 0, Differential Comment SCANNED 08/24/22 15:15: Sodium 134 L, Potassium 3.6, Chloride 101, Carbon Dioxide 21.0, Anion Gap 12, BUN 18, Creatinine 1.24, Estim Creat Clear Calc 48.31, Est GFR (MDRD) Af Amer 76, Est GFR (MDRD) Non-Af 63, BUN/Creatinine Ratio 14.5, Glucose 93, Calcium 8.8, Total Bilirubin 0.40, Direct Bilirubin 0.13, AST 30, ALT 21, Alkaline Phosphatase 114, Total Protein 6.7, Albumin 3.6, Globulin 3.1, Lipase 74 08/24/22 15:15: Amylase 33 08/24/22 15:35: Lactic Acid 1.6 08/25/22 04:45: WBC 4.2 L, RBC 4.62, Hgb 14.0, Hct 41.2, MCV 89.2, MCH 30.3, MCHC 34.0, RDW Std Deviation 45.4 H, RDW Coeff of Rashida 13.8, Plt Count 101 L, MPV13.3 H, Immature Gran % (Auto) 0.200, Neut % (Auto) 63.8, Lymph % (Auto) 21.2, [place] % (Auto) 14.6 H, Eos % (Auto) 0.0, Baso % (Auto) 0.2, Absolute Neuts (auto)2.7, Absolute Lymphs (auto) 0.89, Nucleated RBC % 0 08/25/22 04:45: Sodium 136, Potassium 3.6, Chloride 105, Carbon Dioxide 22.0, Anion Gap 9, BUN 17, Creatinine 0.98, Estim Creat Clear Calc 60.94, Est GFR (MDRD) Af Amer 100, Est GFR (MDRD) Non-Af 82, BUN/Creatinine Ratio 17.3, [id number] L, Calcium 7.8 L, Phosphorus 2.3 L, Magnesium 1.9, Total Bilirubin 0.30, AST 30, ALT 19, Alkaline Phosphatase 92, Total Protein 5.3 L, Albumin 2.8 L, Globulin 2.5, Albumin/Globulin Ratio 1.1 Physical Exam Narrative General: Alert, Oriented x3, Cooperative, in pain HEENT: Atraumatic, PERRLA, EOMI, Normocephalic Oral: Moist Mucosa Neck: Supple, No JVD Lungs: Diminished, Normal air movement, No rhonchi, No wheeze, No rales Cardiovascular: Regular rate, Regular Rhythm, Normal S1, Normal S2, No murmurs Abdomen: Soft, tender, Non-Distended, No Hepato-splenomegaly Extremities: No edema, Capillary Refill Less than 3 Seconds Skin: No rashes, No breakdown Musculoskeletal: No Tenderness to Palpation of Joints or Extremities Neurological: Cranial nerves II-XII grossly intact, Motor Exam 5/5 strength throughout, Sensory exam intact to light touch and pain Psych/Mental Status: Flat affect, Appropriate Assessment & Plan Assessment/Plan (1) Abdominal pain: (2) Vomiting: (3) Mesenteric ischemia, chronic: (4) Thrombocytopenia: PLAN: Plan 1. Intractable abdominal pain with nausea and vomiting/present ischemia/severe malnutrition/thrombocytopenia/tobacco abuse ? He does have a history of chronic mesenteric ischemia and he has needed multiple stents into his celiac artery as well as superior mesenteric artery ? Amylase and lipase are normal ? She still having some pain, will optimize blood pressure continue with IV fluids to increase perfusion ? We will adjust pain medication as well as antinausea medication ? Denies any diarrhea ? Thrombocytopenia appears to be new could be reactive we will monitor ? Continue with aspirin and Plavix ? BMI 17.3 ? Discussed cessation, denies needing a nicotine patch 2. GERD ? Stable ? Continue with PPI 3. Anxiety/depression ? Stable ? Continue Cymbalta DVT: Lovenox Charges/Coding Visit Charges Inpatient E&M: 70170 Subs Hosp L2 08/25/22 0934 <Electronically signed by Juan Lawrence MD> Cosigner Signature (if applicable): CC: ~ Signed [facility] Work Phone: 1(253) 976-320103-04-[address] Parker [facility] August 24, 2022 9:22pm Note Date/Time August 24, 2022 3:08 pm [facility] Medical Records Department [address] [place] [address] Emergency Department Summary 08/24/22 MR#: [id number] Acct: [id number] Name: MINISTERIO LEAL Rep #:[id number] : 1960 62 From: Kristine Parker MD PCP: Dr. Hitesh Dai MD Status:ADM IN Location: [place] [address]-1 HPI History of Present Illness Chief Complaint: Abd Pain Informant: patient Onset/Context/Timing Onset: Days (3 days) Timing: Waxes and wanes Current Severity: Severe Maximum Severity: Severe Narrative Narrative: Patient presents complaining of abdominal pain and. He has history of intermittent abdominal pain and has stents in his celiac and mesenteric arteriessecondary to prior stenosis. He also has a history of IBS and colitis. Patientreports this episode of pain started 2 days ago. Has not been able to eat since. He has had dry heaves with mucus that today is blood-tinged. He denies diarrhea but is passing gas. He was seen at the emergency room at [place] yesterday. Lab work was reportedly unremarkable and initial CT scan with contrast was read as normal. Per their notes, the radiologist later called backstating that the patient did have evidence of colitis. They attempted to contact the patient but were unable to. [facility] Medical History Arthritis Back pain Celiac artery stenosis Coagulopathy Difficulty chewing Difficulty swallowing Excessive bleeding Gastric reflux GI bleed High cholesterol History of diverticulitis History of GI bleed History of IBS History of steroid therapy History of stress test History of ulceration Injury of head and neck Kidney stones Mesenteric artery stenosis Migraine headache Migraines Smoker Smoker Ulcer Wears glasses Home Medications clopidogrel 75 mg tablet 75 mg PO QHS anti platelet 09/23/16 [History Last Taken 10/07/21] rosuvastatin 10 mg tablet 10 mg PO QHS cholesterol 06/08/18 [History Last Taken 09/12/21] aspirin 81 mg tablet 81 mg PO DAILY heart health 07/20/22 [History Last Taken Unknown] pantoprazole 40 mg tablet,delayed release (Protonix) 20 mg PO QHS acid reflux 07/20/22 [History Last Taken Unknown] duloxetine 30 mg capsule,delayed release (Cymbalta) 30 mg PO DAILY #30 caps 07/25/22 [Rx Last Taken Unknown] ondansetron 4 mg disintegrating tablet 4 mg PO Q8H PRN PRN Nausea #10 tabs 08/24/22 [Rx Last Taken Unknown] oxycodone-acetaminophen 5 mg-325 mg tablet (Percocet) 1 tab PO Q8H PRN pain 3 days #10 tabs 08/24/22 [Rx Last Taken Unknown] Allergy/AdvReac Type Severity Reaction Status Date / Time omeprazole AdvReac Other Verified 08/24/22 14:47 Family History Father Colon cancer Mother No cardiac disease Surgical History History of cholecystectomy History of esophagogastroduodenoscopy (EGD) Hx of cervical spine surgery Hx of colonoscopy Hx of surgical procedure Social History Smoking Status: Current every day smoker tobacco type: cigarettes alcohol intake: current details: occasional use substance use type: does not use ROS ROS ED Constitutional Constitutional ED: Denies chills or fever(s) Eyes Eyes: Denies change in vision or discharge from eye(s) ENT ENT ED: Denies discharge from eye(s), rhinorrhea or sore throat Cardiovascular Cardiovascular: Denies chest pain or palpitations Respiratory/Chest Respiratory/Chest: Denies cough or dyspnea Gastrointestinal Gastrointestinal: Reports abdominal pain, nausea and vomiting; Denies diarrhea Genitourinary Genitourinary ED: Denies dysuria Musculoskeletal Musculoskeletal: Denies back pain or extremity pain Integumentary Denies Abrasions or rash Neurologic Neurologic: Denies headache(s) or weakness Allergic/Immunologic Allergic/Immunologic ED: Denies lip swelling or urticaria EXAM Physical Exam Const Vital Signs: 08/24/22 14:47 08/24/22 15:56 08/24/22 15:56 Temperature 97.8 F Temperature Source Temporal Pulse Rate 78 81 77 Respiratory Rate 18 18 18 Blood Pressure 156/78 H 137/71 H 83/50 L Blood Pressure Mean 104 93 61 Pulse Ox 97 97 97 Oxygen Delivery Method Room Air 08/24/22 16:17 08/24/22 16:35 08/24/22 16:50 Temperature Temperature Source Pulse Rate 70 78 70 Respiratory Rate 18 18 16 Blood Pressure 96/82 H 100/60 113/52 L Blood Pressure Mean 86 73 72 Pulse Ox Oxygen Delivery Method Positive well nourished and well developed General Appearance ED: well developed HEENT Reports normocephalic and head/scalp atraumatic Eyes PERRL and EOMs intact bilaterally Neck supple Chest Wall inspection of chest normal and palpation of chest normal Resp normal respiratory effort and clear to auscultation bilaterally Cardio regular rate and regular rhythm GI GI Narrative: Diffuse tenderness with hypoactive bowel sounds. Extremity normal to inspection Neuro oriented x3 and no sensory deficits noted Sensorium / Orientation: alert Motor Exam: strength 5/5 throughout Psych Mood & Affect: anxious Skin no rashes or lesions noted MDM MDM MDM Narrative Medical decision making narrative: Patient given Dilaudid and Zofran for pain and nausea control. IV fluids given. Lab work obtained to evaluate for leukocytosis, anemia, electrolyte abnormality. Lactic acid obtained to evaluate for bowel ischemia. I did reviewthe CT scan from yesterday at outside facility. CT with IV contrast was obtained and does show the stents with contrast distal. There is mild wall thickening of the descending colon and mild pericolonic stranding. Lab Data Labs: Laboratory Results - last 24 hr 08/24/22 08/24/22 08/24/22 15:15 15:15 15:35 WBC 4.7 RBC 4.97 Hgb 15.1 Hct 43.6 MCV 87.7 MCH 30.4 MCHC 34.6 RDW Std Deviation 44.2 H RDW Coeff of Rashida 13.6 Plt Count 116 L MPV 13.1 H Immature Gran % (Auto) 0.200 Neut % (Auto) 59.4 Lymph % (Auto) 10.6 L [place] % (Auto) 29.6 H Eos % (Auto) 0.0 Baso % (Auto) 0.2 Absolute Neuts (auto) 2.8 Absolute Lymphs (auto) 0.50 L Nucleated RBC % 0 Differential Comment SCANNED Sodium 134 L Potassium 3.6 Chloride 101 Carbon Dioxide 21.0 Anion Gap 12 BUN 18 Creatinine 1.24 Estim Creat Clear Calc 48.31 Est GFR (MDRD) Af Amer 76 Est GFR (MDRD) Non-Af 63 BUN/Creatinine Ratio 14.5 Glucose 93 Lactic Acid 1.6 Calcium 8.8 Total Bilirubin 0.40 Direct Bilirubin 0.13 AST 30 ALT 21 Alkaline Phosphatase 114 Total Protein 6.7 Albumin 3.6 Globulin 3.1 Lipase 74 Differential Diagnosis Abdominal Pain: Pancreatitis Reason(s) Pancreatitis less likely: NL lab values and Bowel obstruction Reason(s) bowel obstruction less likely: bowel sounds present on exam and other (Passing gas.) Management Discussion w/another healthcare provider: [employer] (Dr. Medina, gastroenterology) Treatment and Re-Evaluation :: After being given Dilaudid patient's blood pressure did drop to the high 80s, however this did improve with IV hydration. Zofran did help control his nausea. CBC and chemistry studies are unremarkable. Lactic acid is normal. Lipase is normal. I did speak Dr. 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 He knows this patient well. He does not feel that the patient needs to be on antibiotics as he does not have infectious colitis. He states ideally the patient needs to stop smoking. He has had multiple vascular studies that show the stents to be open. At this time patient is willing to try going home with analgesics and nausea meds. He was advised that if he fails outpatient treatment he may require admission. He voices understanding and agreement. Addendum: Prior to the patient leaving he states that he does not feel that his symptoms are well enough controlled to go home. He states that [facility] he [facility] [place] yesterday he had Percocet and Zofran to take. In spite of try to take this at home is symptoms were not controlled. He feels this is already a failure of outpatient treatment. I will speak with hospitalist. Discharge Plan Triage Chief Complaint: Abd Pain ED Provider: Kristine Parker Dx/Rx/DC Orders Clinical Impression: Abdominal pain, Vomiting Instructions: ED Vomiting (Adult), ED Abdominal Pain Unkn Cause Male... Prescriptions: New oxycodone-acetaminophen [Percocet] 5-325 mg tablet 1 tab PO Q8H PRN (Reason: pain) 3 Days Qty: 10 0RF ondansetron 4 mg tablet,disintegrating 4 mg PO Q8H PRN PRN (Reason: Nausea) Qty: 10 0RF No Action clopidogrel 75 MG tablet 75 mg PO QHS Hold Instructions: hold for five days, then resume rosuvastatin 10 MG tablet 10 mg PO QHS aspirin 81 mg Tablet 81 mg PO DAILY pantoprazole [Protonix] 40 mg tablet,delayed release (DR/EC) 20 mg PO QHS duloxetine [Cymbalta] 30 mg capsule,delayed release(DR/EC) 30 mg PO DAILY Qty: 30 2RF Primary Care Provider: Hitesh Dai Referrals: Kory Medina DO [Med Staff - Active Staff] - 1-2 Weeks Hitesh Dai MD [Primary Care Provider] - Disposition Disposition: Acute Care Hospital [facility] What to do if you have Problems For any increased pain, shortness of breath, bleeding, nausea or vomiting, chestpain, or any unexpected problems, contact your Primary Care Provider. Call [facility] ([phone]) or report to the closest Emergency Room. Call 911 if necessary. 08/24/222121 <Electronically signed by Kristine Parker MD> Cosigner Signature (if applicable): CC: Dr. Hitesh Dai MD ~ Signed [facility] Work Phone: [phone] 100-603703-04-2023 History and physical note Author Dr. Zenon [facility] August 24, 2022 7:29pm Note Date/Time August 24, 2022 6:24 pm [facility] Medical Records Department [address] [place] [address] H&P Exam - Hospitalist 08/24/221816 MR#: [id number] Acct: [id number] Name: MINISTERIO LEAL Rep #:[id number] : 1960 62 From: Cheryle Yarbrough DO PCP: Dr. Hitesh Dai MD Status:ADM IN O Location: NM3 KH027-3 HPI - General General Date of Admission: 08/24/22 Date of Service: 08/24/22 Chief Complaint: Actable nausea and vomiting/abdominal pain HPI Narrative MINISTERIO LEAL, is a 62 M who presented to the emergency department at [facility] on 08/24/2022 with a chief complaint of abdominal pain and intractable nausea vomiting. This is the third day that he has had symptoms andhas not been able to eat during this time. He evidently was in the emergency department at outside hospital in [place] yesterday per his report the lab work was unremarkable and the initial CT scan with contrast was read as normal but per documentation the radiologist called back later stating that he did haveevidence of colitis and they attempted to contact the patient but were unable toget a hold of him. He has a complicated history with regards to his abdominal pain and has had this multiple times in the past. He has seen Dr. Medina several times from gastroenterology. But his last visit there was on 04/22/2022. At that time he was noted to have a high urine porphyrin level and further testing was performed but there is no follow-up after this outpatient appointment. He did have a liver elastography performed on 05/17/2022 that showed mild to moderate liver fibrosis. And he does have 2 stents placed in 2019 and the celiac and 2 stents in the mesenteric artery. He is still smoking but states he has quit back significantly. Per his he gets a couple episodes a year but she states this is the most severe episode he has had. He complains that lying on his back make his symptoms worse and he feels more comfortable lying on his side. Vital signs on presentation temp 97.8, HR 78, BP 83/50 but improving to 113/52 with ivf, RR 18, SpO2 97% RA. His CBC was overall unremarkable other than a thrombocytopenia with a platelet count of 116. He does have a monocytosis at 29.6%. His chemistry panel showed mild hyponatremia with a sodium of 134 but was otherwise unremarkable. Amylase and lipase are normal. Liver function is normal. He had a CTA of his abdomen pelvis yesterday that showed some mild ischemic colitis but was otherwise unremarkable. The emergency department physician tried to get him home however he was having ongoing pain nausea and vomiting and was not able to eat or drink anything in the emergency department therefore they called Dr. Medina who states he has bouts of these every 2 to 3 months. His blood pressure is on the lower side Manisha suspect he probably is volume depleted some however not severe enough to elevate his serum creatinine and may be blood flow to his gut is compromised causing ischemia with his known stenosis. [facility] Medical History Arthritis Back pain Celiac artery stenosis Coagulopathy Difficulty chewing Difficulty swallowing Excessive bleeding Gastric reflux GI bleed High cholesterol History of diverticulitis History of GI bleed History of IBS History of steroid therapy History of stress test History of ulceration Injury of head and neck Kidney stones Mesenteric artery stenosis Migraine headache Migraines Smoker Smoker Ulcer Wears glasses Home Medications clopidogrel 75 mg tablet 75 mg PO QHS anti platelet 09/23/16 [History Last Taken 10/07/21] rosuvastatin 10 mg tablet 10 mg PO QHS cholesterol 06/08/18 [History Last Taken 09/12/21] aspirin 81 mg tablet 81 mg PO DAILY heart health 07/20/22 [History Last Taken Unknown] pantoprazole 40 mg tablet,delayed release (Protonix) 20 mg PO QHS acid reflux 07/20/22 [History Last Taken Unknown] duloxetine 30 mg capsule,delayed release (Cymbalta) 30 mg PO DAILY #30 caps 07/25/22 [Rx Last Taken Unknown] ondansetron 4 mg disintegrating tablet 4 mg PO Q8H PRN PRN Nausea #10 tabs 08/24/22 [Rx Last Taken Unknown] oxycodone-acetaminophen 5 mg-325 mg tablet (Percocet) 1 tab PO Q8H PRN pain 3 days #10 tabs 08/24/22 [Rx Last Taken Unknown] Allergy/AdvReac Type Severity Reaction Status Date / Time omeprazole AdvReac Other Verified 08/24/22 14:47 Family History Father Colon cancer Mother No cardiac disease Surgical History History of cholecystectomy History of esophagogastroduodenoscopy (EGD) Hx of cervical spine surgery Hx of colonoscopy Hx of surgical procedure Social History Smoking Status: Current every day smoker tobacco type: cigarettes alcohol intake: current details: occasional use substance use type: does not use ROS Constitutional Constitutional: Reports anorexia; Denies change in weight, chills, fatigue, fever(s), malaise, night sweats, weakness or other Eyes Eyes: Denies blurry vision, change in eye color, change in vision, discharge from eye(s), double vision, erythema, eye pain, loss of vision or other ENT HEENT: Denies abnormal hearing, dysphagia, ear pain, epistaxis, headache(s), hearing loss, nasal congestion, nasal discharge, post nasal drip, sinus pressure, sore throat or other Cardiovascular Cardiovascular: Denies chest pain, claudication, dyspnea on exertion, edema, lightheadedness, orthopnea, palpitations, paroxysmal nocturnal dyspnea, rapid heart rate, syncope or other Respiratory/Chest Respiratory/Chest: Denies cough, dyspnea, excessive phlegm production, hemoptysis, productive cough, shortness of breath at rest, shortness of breath with exertion, wheezing or other Gastrointestinal Gastrointestinal: Reports abdominal pain, nausea and vomiting; Denies coffee ground emesis, constipation, diarrhea, dyspepsia, hematemesis, hematochezia, loose stools, melena or other Genitourinary Genitourinary: Denies burning urination, difficulty urinating, dysuria, hematuria, nocturia, urinary frequency, urinary hesitancy, urinary incontinence,urinary urgency or other Musculoskeletal Musculoskeletal: Denies arthralgias, back pain, joint pain, joint stiffness, joint swelling, myalgias, neck pain or other Neurologic Neurologic: Denies abnormal gait, abnormal speech, confusion, disequilibrium, dizziness, focal weakness, headache(s), numbness, paresthesias, seizure-like activity, seizures, syncope, tingling, tremor(s) or other Psychiatric Psychiatric: Reports anxiety; Denies depression, homicidal ideation, suicidal ideation or other Endocrine Endocrinology: Denies change in body appearance, cold intolerance, excessive sweating, heat intolerance, polydipsia, polyuria or other Hematologic/Lymphatic Hematologic/Lymphatic: Denies anemia, easy bleeding, easy bruising, lymphadenopathy or other Allergic/Immunologic Allergic/Immunologic: Denies rhinitis, hives, eczemia, asthma or other Vital Signs Vital Signs Vital Signs: 08/24/22 14:47 08/24/22 15:56 08/24/22 15:56 Temperature 97.8 F Temperature Source Temporal Pulse Rate 78 81 77 Respiratory Rate 18 18 18 Blood Pressure 156/78 H 137/71 H 83/50 L Blood Pressure Mean 104 93 61 Pulse Ox 97 97 97 Oxygen Delivery Method Room Air 08/24/22 16:17 08/24/22 16:35 08/24/22 16:50 Temperature Temperature Source Pulse Rate 70 78 70 Respiratory Rate 18 18 16 Blood Pressure 96/82 H 100/60 113/52 L Blood Pressure Mean 86 73 72 Pulse Ox Oxygen Delivery Method Weight Weight: 54.601 kg Body Mass Index (BMI) 17.2 Physical Exam Const alert and oriented x3 Constitutional Narrative: Upper middle-aged white male lying in bed on left side, appears uncomfortable but not toxic, at bedside, thin, appears malnourished General Appearance: cooperative HEENT normocephalic, head/scalp atraumatic and moist oral mucous membranes; Negative for hearing grossly normal bilaterally HEENT Narrative: Hearing loss left ear Eyes PERRL, EOMs intact bilaterally and conjunctivae normal Eyes Narrative: No scleral icterus Neck no lymphadenopathy, supple, no JVD and no carotid bruits Resp normal respiratory effort, no retractions, no use of accessory muscles and clearto auscultation bilaterally Resp Narrative: Diffusely diminished but clear Auscultation: Negative for rales, rhonchi or wheezes Cardio regular rate, regular rhythm, S1 normal heart sound, S2 normal heart sound, no murmurs, no rub, no gallops and no clicks GI GI Narrative: Diffuse tenderness with guarding, bowel sounds are normal, abdomen is soft and not distended Extremity no clubbing, cyanosis or edema Extremity Narrative: 1+ pedal pulses bilateral lower extremities, 2+ radial pulses Neuro oriented x3, CN's II-XII intact bilaterally, moves all extremities and no focal motor deficits Speech: speech normal Psych Mood & Affect: anxious Results Lab / Micro Data Result Diagrams: 08/24/22 15:15 08/24/22 15:15 Labs: Laboratory Results - last 24 hr 08/24/22 15:15: WBC 4.7, RBC 4.97, Hgb 15.1, Hct 43.6, MCV 87.7, MCH 30.4, MCHC 34.6, RDW Std Deviation 44.2 H, RDW Coeff of Rashida 13.6, Plt Count 116 L, MPV 13.1H, Immature Gran % (Auto) 0.200, Neut % (Auto) 59.4, Lymph % (Auto) 10.6 L, [place]% (Auto) 29.6 H, Eos % (Auto) 0.0, Baso % (Auto) 0.2, Absolute Neuts (auto) 2.8,Absolute Lymphs (auto) 0.50 L, Nucleated RBC % 0, Differential Comment SCANNED 08/24/22 15:15: Sodium 134 L, Potassium 3.6, Chloride 101, Carbon Dioxide 21.0, Anion Gap 12, BUN 18, Creatinine 1.24, Estim Creat Clear Calc 48.31, Est GFR (MDRD) Af Amer 76, Est GFR (MDRD) Non-Af 63, BUN/Creatinine Ratio 14.5, Glucose 93, Calcium 8.8, Total Bilirubin 0.40, Direct Bilirubin 0.13, AST 30, ALT 21, Alkaline Phosphatase 114, Total Protein 6.7, Albumin 3.6, Globulin 3.1, Lipase 74 08/24/22 15:35: Lactic Acid 1.6 Assessment & Plan Assessment/Plan (1) Abdominal pain: (2) Vomiting: (3) Mesenteric ischemia, chronic: (4) Thrombocytopenia: PLAN: Plan Abdominal pain/nausea/vomiting-intractable -Discussed case with Dr. Medina and he suspects this is related to his chronic mesenteric ischemia -CT scan done at outside hospital in [place] yesterday showed some colitis -Amylase and lipase are normal -Lactate is normal -Oral intake has been poor and blood pressures were on the low side for him -Aggressive IV fluids -Pain medication -Antiemetics -Clear liquid diet and advance as tolerated Thrombocytopenia -This appears to be new -Patient does have some baseline liver disease that is mild to moderate -Repeat in a.m. Mesenteric ischemia -Patient did not meet criteria for porphyria -Was seeing chronic pain previously for his chronic abdominal pain however was fired because he would not quit smoking and this was contributing to his abdominal pain -Has had extensive work-up--> see Dr. Medina note from 04/22/2022 -In 2019 had stents placed in the celiac and mesenteric artery--> 2 stents in his vessel -These were patent on his imaging yesterday -Continue aspirin and Plavix Severe malnutrition -BMI is 17.3 -Suspect this is related to his mesenteric ischemia plus pulmonary cachexia -Add supplements when able to take p.o. -Consult dietitian if here through the weekend GERD -Continue home Protonix -We will utilize IV Protonix while hospitalized Suspected COPD -Recommend outpatient follow-up with pulmonary medicine Depression -Continue duloxetine Tobacco abuse -Recommend cessation -Patient denies need for nicotine patch DVT prophylaxis -Lovenox daily CODE STATUS -Full code Charges/Coding Visit Charges Inpatient E&M: 42574 Init Hosp L2 08/24/221928 <Electronically signed by Cheryle Yarbrough DO> Cosigner Signature (if applicable): CC: Dr. Cheryle Yarbrough DO; Dr. Hitesh Dai MD~ Signed [facility] Work Phone: 1(123) 266-115901-28-[address] Hernandez [facility] July 20, 2022 11:54pm Note Date/Time July 20, 2022 8 :04pm [facility] Medical Records Department [address] [place] [id number] Emergency Department Summary 07/20/22 MR#: [id number] Acct: [id number] Name: MINISTERIO LEAL Rep #:[id number] : 1960 62 From: Elmo Trujillo PCP: Dr. Hitesh Dai MD Status:REG ER Location: ED HPI History of Present Illness Chief Complaint: Abd Pain Narrative Narrative: 62-year-old male here with abdominal pain. [facility] Medical History (Updated 07/20/22 @ 23:[address] Elmo Hernandez DO) Arthritis Back pain Celiac artery stenosis Coagulopathy Difficulty chewing Difficulty swallowing Excessive bleeding Gastric reflux GI bleed High cholesterol History of diverticulitis History of GI bleed History of IBS History of steroid therapy History of stress test History of ulceration Injury of head and neck Kidney stones Mesenteric artery stenosis Migraine headache Migraines Smoker Smoker Ulcer Wears glasses Home Medications clopidogrel 75 mg tablet 75 mg PO QHS anti platelet 09/23/16 [History Last Taken 10/07/21] rosuvastatin 10 mg tablet 10 mg PO QHS cholesterol 06/08/18 [History Last Taken 09/12/21] aspirin 81 mg tablet 81 mg PO DAILY heart health 07/20/22 [History Last Taken Unknown] hydromorphone 4 mg tablet (Dilaudid) 4 mg PO Q6H PRN pain 7 days #28 tabs 07/20/22 [Rx Last Taken Unknown] pantoprazole 40 mg tablet,delayed release (Protonix) 20 mg PO QHS acid reflux 07/20/22 [History Last Taken Unknown] Allergy/AdvReac Type Severity Reaction Status Date / Time omeprazole AdvReac Other Verified 10/11/21 07:17 Family History (Updated 09/13/21 @ 16:37 by Madelin Rosa TRAFFIC CONTROL TECHNICIAN, TRAFFIC CONTROL TECHNICIAN-C) Father Colon cancer Mother No cardiac disease Surgical History (Updated 10/09/21 @ 11:34 by Yari Webster) History of cholecystectomy History of esophagogastroduodenoscopy (EGD) Hx of cervical spine surgery Hx of colonoscopy Hx of surgical procedure Social History (Updated 09/13/21 @ 16:38 by Madelin Rosa NP, TRAFFIC CONTROL TECHNICIAN-C) Smoking Status: Current every day smoker tobacco type: cigarettes alcohol intake: current details: occasional use substance use type: does not use ROS ROS ED ROS Narrative Constitutional: Denies fever HEENT: Denies sore throat Neck: Denies neck pain Cardiovascular: Denies chest pain, syncope Respiratory: Denies shortness of breath GI: Endorses abdominal pain : Denies changes in urinary habits Musculoskeletal: Denies muscle or joint pain Neurologic: Denies numbness weakness or loss of sensation Skin denies rash EXAM Physical Exam Narrative Exam Narrative: Nursing triage notes reviewed, Vital signs reviewed Constitutional: please see mdm HENT: MMM Eyes: Pupils equal round and reactive to light, Extraocular muscles intact Neck: No stridor, no JVD, full neck ROM Lungs: Clear to auscultation, No wheezing or rales. No increased work of breathing, no conversational dyspnea, no accessory muscle use, no nasal flaring. No respiratory distress noted Heart: Regular rate and rhythm, No murmurs, No rubs and No gallops, 2+ distal pulses (radial, femoral, posterior tibial) in all extremities Abdomen: Soft, diffuse abdominal TTP, no rigidity, rebound or guarding, no obvious peritoneal signs, no palpable pulsatile abdominal masses, no auscultatedabdominal bruit : No CVAT Extremities: No edema Neuro: No focal neurological deficits, cranial nerves II through XII intact, 5/5strength in all extremities. Intact sensation to light touch in all extremities,2+ reflexes bilateral patella dens. Normal gait. No ataxia. Skin: No rash or lesions noted Const Vital Signs: 07/20/22 19:57 07/20/22 19:57 07/20/22 22:11 Temperature 97.6 F L 97.6 F L Temperature Source Temporal Temporal Pulse Rate 99 99 79 Respiratory Rate 18 22 H 20 H Blood Pressure 119/95 H 119/95 H 132/88 H Blood Pressure Mean 103 103 102 Pulse Ox 100 Oxygen Delivery Method Room Air 07/20/22 23:40 Temperature Temperature Source Pulse Rate 80 Respiratory Rate 22 H Blood Pressure 143/81 H Blood Pressure Mean Pulse Ox 99 Oxygen Delivery Method MDM MDM MDM Narrative Medical decision making narrative: Chief Complaint: Abdominal pain External records reviewed: CT scan abdomen pelvis from August 2021 shows colitis involving the transverse and descending colon Upper GI series from March 2022 shows IMPRESSION: 1.? Unremarkable air contrast upper GI series and small bowel follow-through examination. Unremarkable abdominal ultrasound from April 2022 Last GI evaluation and March 2022 I considered: Surgical abdominal pathology such as small bowel obstruction, perforation, appendicitis, acute cholecystitis. Infectious inflammatory etiology such as colitis, diverticulitis. Considered pancreatitis, hepatobiliary pathology, anemia, dehydration, electrolyte abnormalities, decompensated liver cirrhosis. No evidence of decompensated liver cirrhosis, pancreatitis, significant anemia, dehydration or electrode abnormalities. CT scan did not reveal evidence of acute intra-abdominal surgical processes. I did offer the patient admission to the hospital given his severe abdominal pain requiring multiple doses of IV narcotics. He initially wanted to be admitted. Did speak with hospitalist Dr. Alonzo who said that there is not a solid indication for admission at this time. She suggested we offer the patient oral Dilaudid for home-going. I did have a shared decision-making discussion with patient and loved one in the room they were alert and orient x3 had capacity to make their own medical decisions and chose to be discharged home with oral Dilaudid and follow-up with gastroenterology as well as pain management. Factors affecting care: History of GI bleed, coagulopathy, hyperlipidemia, diverticulitis, mesenteric artery stenosis status post celiac artery stent Status post-cholecystectomy, EGD, colonoscopy. Social determinants of health: Poor health literacy Shared decision making: I will have a discussion with the patient and or visitors regarding risk/benefits of further testing or admission. They will be made aware of of the risk/benefits inherent in this decision they will be given the opportunity to voice understanding. Consults: none Did attempt to write the patient oral Dilaudid as an outpatient through meds to beds however our pharmacy does not have oral Dilaudid. I wrote an outpatient prescription for oral Dilaudid for intractable abdominal pain. Lab Data Lab results narrative: CBC with marked leukocytosis suggestive of systemic information, no significant anemia or thrombocytopenia PT, PTT INR within normal limits suggestive of no coagulopathy BMP without significant electrolyte abnormalities, no anion gap to suggest end- organ hypoperfusion, no acute kidney injury LFTs without evidence of significant hepatobiliary pathology or hepatobiliary obstruction Lipase within normal limits negative for pancreatitis Lactate is wnl indicating no end-organ hypoperfusion and/or hypoxia. Labs: Laboratory Results - last 24 hr 07/20/22 07/20/22 07/20/22 20:20 20:20 20:20 WBC 18.5 H RBC 5.39 Hgb 16.4 Hct 47.7 MCV 88.5 MCH 30.4 MCHC 34.4 RDW Std Deviation 43.3 RDW Coeff of Rashida 13.4 Plt Count 221 MPV 13.1 H Immature Gran % (Auto) 0.600 Neut % (Auto) 83.5 H Lymph % (Auto) 7.0 L [place] % (Auto) 8.3 Eos % (Auto) 0.1 Baso % (Auto) 0.5 Absolute Neuts (auto) 15.5 H Absolute Lymphs (auto) 1.30 Nucleated RBC % 0 Differential Comment PT 14.0 INR 1.1 APTT 33.0 Sodium 136 Potassium 3.9 Chloride 104 Carbon Dioxide 22.0 Anion Gap 10 BUN 15 Creatinine 1.17 Estim Creat Clear Calc 48.07 Est GFR (MDRD) Af Amer 81 Est GFR (MDRD) Non-Af 67 BUN/Creatinine Ratio 12.8 Glucose 93 Lactic Acid Calcium 9.7 Total Bilirubin 0.60 Direct Bilirubin 0.17 AST 21 ALT 19 Alkaline Phosphatase 152 H Total Protein 7.9 Albumin 4.2 Globulin 3.7 Lipase 53 L Urine Color Urine Clarity Urine pH Ur Specific [place] Urine Protein Urine Glucose (UA) Urine Ketones Urine Occult Blood Urine Nitrite Urine Bilirubin Urine Urobilinogen Ur Leukocyte Esterase Urine RBC Urine WBC Ur Squamous Epith Cells Urine Bacteria Urine Mucus 07/20/22 07/20/22 20:20 22:20 WBC RBC Hgb Hct MCV MCH MCHC RDW Std Deviation RDW Coeff of Rashida Plt Count MPV Immature Gran % (Auto) Neut % (Auto) Lymph % (Auto) [place] % (Auto) Eos % (Auto) Baso % (Auto) Absolute Neuts (auto) Absolute Lymphs (auto) Nucleated RBC % Differential Comment PT INR APTT Sodium Potassium Chloride Carbon Dioxide Anion Gap BUN Creatinine Estim Creat Clear Calc Est GFR (MDRD) Af Amer Est GFR (MDRD) Non-Af BUN/Creatinine Ratio Glucose Lactic Acid 1.8 Calcium Total Bilirubin Direct Bilirubin AST ALT Alkaline Phosphatase Total Protein Albumin Globulin Lipase Urine Color Yellow Urine Clarity Clear Urine pH 5.0 Ur Specific [place] 1.015 Urine Protein 15 H Urine Glucose (UA) Normal Urine Ketones 50 H Urine Occult Blood 25 H Urine Nitrite Negative Urine Bilirubin Negative Urine Urobilinogen Normal Ur Leukocyte Esterase Negative Urine RBC 0 SEEN Urine WBC 0 SEEN Ur Squamous Epith Cells 0 SEEN Urine Bacteria 0 SEEN Urine Mucus 0 SEEN Radiography Diagnostic Testing: Clinical Impression(s) from Imaging Studies Abdomen/Pelvis CT 07/20/22 20:11 IMPRESSION: No acute findings in the abdomen or pelvis. The graft disc protrusions at L4-5 and L5-S1. Electronically Signed: Shahnaz Newman MD at 22:11 EST Reading Location ID and State: [id number] / Tel , Service support , Treatment and Re-Evaluation Narrative: Abdominal exam is still benign Discharge Plan Triage Chief Complaint: Abd Pain ED Provider: Elmo Hernandez Dx/Rx/DC Orders Clinical Impression: Abdominal pain, History of ulcer disease, History of liver failure, High urine total porphyrin Instructions: Abdominal Pain Prescriptions: New hydromorphone [Dilaudid] 4 mg tablet 4 mg PO Q6H PRN (Reason: pain) 7 Days Qty: 28 0RF No Action clopidogrel 75 MG tablet 75 mg PO QHS Hold Instructions: hold for five days, then resume rosuvastatin 10 MG tablet 10 mg PO QHS aspirin 81 mg Tablet 81 mg PO DAILY pantoprazole [Protonix] 40 mg tablet,delayed release (DR/EC) 20 mg PO QHS Primary Care Provider: Hitesh Dai Referrals: Luis Noble DO [Non-Staff] - Friend,DO Kory [Med Staff - Active Staff] - Activity Restrictions/Additional Instructions: Please take Dilaudid for pain. Please take zofran for nausea. Please return for worsening pain. Please follow-up with your GI doctor. Please follow-up with for ongoing pain management. Disposition Disposition: Home, Self Care What to do if you have Problems For any increased pain, shortness of breath, bleeding, nausea or vomiting, chestpain, or any unexpected problems, contact your Primary Care Provider. Call [facility] ([phone]) or report to the closest Emergency Room. Call 911 if necessary. 07/20/22 [id number] <Electronically signed by Elmo Hernandez DO> Cosigner Signature (if applicable): CC: Dr. Hitesh Dai MD ~ Signed [facility] Work Phone: 1(211) 416-777410-07-2022 Miscellaneous Notes* Nursing Notes - Angelita Hernández RN - 03/29/2022 12:04 PM EDT PT taken to the Lobby on a wheelchair to go home with the family member/significant other. PT transferred into the car without any incident. * Nursing Notes - Angelita Hernández RN - 03/29/2022 11:33 AM EDT Discharge instruction and prescriptions reviewed with the patient and siginificant other spouse Radha and given. Both patient and family verbalized an understanding of the instructions. Questions answered. patient is ready to go home. * Brief Op Note - Marielena Pierre MD - 03/29/2022 9:51 AM EDT Ministerio Leal ([id number]) PRE OPERATIVE DIAGNOSIS Cervicalgia [M54.2] Chronic pain syndrome [G89.4] POST OPERATIVE DIAGNOSIS Post-Op Diagnosis Codes: * Cervicalgia [M54.2] * Chronic pain syndrome [G89.4] PROCEDURE PERFORMED Procedure(s) (LRB): REVISION REMOVAL NEUROSTIMULATOR ELECTRODE SPINAL (N/A) REVISION REMOVAL NEUROSTIMULATOR GENERATOR SPINAL (N/A) PRIMARY CLOSURE Yes INTRAOPERATIVE FINDINGS No significant abnormalities SURGEON Surgeon(s) and Role: * Marielena Pierre MD - Primary ANESTHESIOLOGIST Anesthesiologist: Ministerio He MD SENIOR ADMINISTRATIVE SERVICES OFFICER: Eleanor Peterson APRN-SENIOR ADMINISTRATIVE SERVICES OFFICER SURGICAL STAFF Drum Sander Offbearer: Anastasia Wynn RN Scrub Person: Radha Hernandez COMPLICATIONS None ESTIMATED BLOOD LOSS Minimal SPECIMENS No specimen sent * No specimens in log * Marielena Pierre MD March 29, 2022 9:51 AM documented [facility]* Nursing Notes - Angelita Hernández RN - 03/29/2022 12:04 PM EDT PT taken to the Lobby on a wheelchair to go home with the family member/significant other. PT transferred into the car without any incident. [facility]10-07-2022 Note* Nursing Notes - Angelita Hernández RN - 03/29/2022 11:33 AM EDT Discharge instruction and prescriptions reviewed with the patient and siginificant other spouse Radha and given. Both patient and family verbalized an understanding of the instructions. Questions answered. patient is ready to go home. [facility]10-07-2022 Note* Brief Op Note - Marielena Pierre MD - 03/29/2022 9:51 AM EDT Ministerio Leal ([id number]) PRE OPERATIVE DIAGNOSIS Cervicalgia [M54.2] Chronic pain syndrome [G89.4] POST OPERATIVE DIAGNOSIS Post-Op Diagnosis Codes: * Cervicalgia [M54.2] * Chronic pain syndrome [G89.4] PROCEDURE PERFORMED Procedure(s) (LRB): REVISION REMOVAL NEUROSTIMULATOR ELECTRODE SPINAL (N/A) REVISION REMOVAL NEUROSTIMULATOR GENERATOR SPINAL (N/A) PRIMARY CLOSURE Yes INTRAOPERATIVE FINDINGS No significant abnormalities SURGEON Surgeon(s) and Role: * Marielena Pierre MD - Primary ANESTHESIOLOGIST Anesthesiologist: Ministerio He MD SENIOR ADMINISTRATIVE SERVICES OFFICER: Eleanor Peterson APRN-SENIOR ADMINISTRATIVE SERVICES OFFICER SURGICAL STAFF Drum Sander Offbearer: Anastasia Wynn RN Scrub Person: Radha Hernandez COMPLICATIONS None ESTIMATED BLOOD LOSS Minimal SPECIMENS No specimen sent * No specimens in log * Marielena Pierre MD March 29, 2022 9:51 AM [facility]10-07-2022 History and physical note* Marielena Pierre MD - 03/29/2022 9:36 AM EDT Neurosurgery History and Physical Note Date: 03/29/2022 Patient: Ministerio Leal Date of : 1960 Visit Date: 03/29/22 Visit Type: Surgery Chief Complaint No chief complaint on file. History of Present Illness Ministerio Leal is a 61 y.o. male who presents with chronic bilateral shoulder and arm pain with positive SCS trial and implant, but having problems with the IPG and incomplete coverage on the right side. 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 Past Surgical History: Procedure Laterality Date INSERTION NEUROSTIMULATOR ELECTRODE SPINAL PERCUTANEOUS Midline 03/01/2022 Laterality: Midline; Surgeon: Marielena Pierre MD; Location: [facility] OSC PERIOP INSERTION REPLACEMENT NEUROSTIMULATOR GENERATOR SPINAL N/A 03/01/2022 Laterality: N/A; Surgeon: Marielena Pierre MD; [facility] GUIDANCE FLUOROSCOPIC NEEDLE PLACEMENT ADD-ON PX N/A 03/01/2022 Laterality: N/A; Surgeon: Marielena Pierre MD; [facility] PERIOP INSERTION NEUROSTIMULATOR ELECTRODE SPINAL PERCUTANEOUS Midline 02/01/2022 Laterality: Midline; Surgeon: Marielena Pierre MD; [facility]SC PERIOP GUIDANCE FLUOROSCOPIC NEEDLE PLACEMENT ADD-ON PX N/A 02/01/2022 Laterality: N/A; Surgeon: Marielena Pierre MD; Location: [facility] PERIOP CERVICAL FUSION CHOLECYSTECTOMY LAPAROSCOPIC COLONOSCOPY DIAGNOSTIC 4 polyps, 1 precancerous EGD DIAGNOSTIC OTHER SURGICAL stent in celiac and superior mesenteric artery REMOVAL BILIARY DUCT/GALLBLADDER CALCULI/DEBRIS PERCUTANEOUS W/ IMAGE Allergies: Allergies Allergen Reactions Omeprazole Headache Other reaction(s): Other: See Comments Headaches Social History: Social History Socioeconomic History Marital status: Spouse name: Not on file Number of children: Not on file Years of education: Not on file Highest education level: Not on file Occupational History Not on file Tobacco Use Smoking status: Current Every Day Smoker Packs/day: 0.50 Types: Cigarettes Smokeless tobacco: Never Used Substance and Sexual Activity Alcohol use: Never Drug use: Yes Types: Marijuana Comment: 3-5 puffs daily; last use 9/7 PM Sexual activity: Not Currently Partners: Female Other Topics Concern Not on file Social History Narrative Not on file Social Determinants of Health Financial Resource Strain: Not on file Food Insecurity: Not on file Transportation Needs: Not on file Physical Activity: Not on file Stress: Not on file Social Connections: Not on file Intimate Partner Violence: Not on file Housing Stability: Not on file Review of Systems: O/w 13 point ROS is negative other than HPI Physical Exam: General: No acute distress. Alert and Oriented x3 HENT: Normocephalic, without obvious abnormality, atraumatic Musculoskeletal: No obvious contractures, deformities Cranial Nerves: II-XII intact bilaterally Motor: 5/5 strength Sensory: Intact to light touch Imaging: No new results for this encounter Assessment: 61 y.o. male who presents with pain, discomfort and incomplete SCS therapy. Plan: Patient has requested removal of the SCS device. Patient understands and agrees with the plan. [facility]ielena [facility] History and physical note* Marielena Pierre MD - 03/29/2022 9:36 AM EDT Neurosurgery History and Physical Note Date: 03/29/2022 Patient: Ministerio Leal Date of : 1960 Visit Date: 03/29/22 Visit Type: Surgery Chief Complaint No chief complaint on file. History of Present Illness Ministerio Leal is a 61 y.o. male who presents with chronic bilateral shoulder and arm pain with positive SCS trial and implant, but having problems with the IPG and incomplete coverage on the right side. 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 Past Surgical History: Procedure Laterality Date INSERTION NEUROSTIMULATOR ELECTRODE SPINAL PERCUTANEOUS Midline 03/01/2022 Laterality: Midline; Surgeon: Marielena Pierre MD; [facility] INSERTION REPLACEMENT NEUROSTIMULATOR GENERATOR SPINAL N/A 03/01/2022 Laterality: N/A; Surgeon: Marielena Pierre MD; Location: [facility] PERIOP GUIDANCE FLUOROSCOPIC NEEDLE PLACEMENT ADD-ON PX N/A 03/01/2022 Laterality: N/A; Surgeon: Marielena Pierre MD; Location: [facility] PERIOP INSERTION NEUROSTIMULATOR ELECTRODE SPINAL PERCUTANEOUS Midline 02/01/2022 Laterality: Midline; Surgeon: Marielena Pierre MD; Location: [facility] PERIOP GUIDANCE FLUOROSCOPIC NEEDLE PLACEMENT ADD-ON PX N/A 02/01/2022 Laterality: N/A; Surgeon: Marielena Pierre MD; Location: [facility] PERIOP CERVICAL FUSION CHOLECYSTECTOMY LAPAROSCOPIC COLONOSCOPY DIAGNOSTIC 4 polyps, 1 precancerous EGD DIAGNOSTIC OTHER SURGICAL stent in celiac and superior mesenteric artery REMOVAL BILIARY DUCT/GALLBLADDER CALCULI/DEBRIS PERCUTANEOUS W/ IMAGE Allergies: Allergies Allergen Reactions Omeprazole Headache Other reaction(s): Other: See Comments Headaches Social History: Social History Socioeconomic History Marital status: Spouse name: Not on file Number of children: Not on file Years of education: Not on file Highest education level: Not on file Occupational History Not on file Tobacco Use Smoking status: Current Every Day Smoker Packs/day: 0.50 Types: Cigarettes Smokeless tobacco: Never Used Substance and Sexual Activity Alcohol use: Never Drug use: Yes Types: Marijuana Comment: 3-5 puffs daily; last use 9/7 PM Sexual activity: Not Currently Partners: Female Other Topics Concern Not on file Social History Narrative Not on file Social Determinants of Health Financial Resource Strain: Not on file Food Insecurity: Not on file Transportation Needs: Not on file Physical Activity: Not on file Stress: Not on file Social Connections: Not on file Intimate Partner Violence: Not on file Housing Stability: Not on file Review of Systems: O/w 13 point ROS is negative other than HPI Physical Exam: General: No acute distress. Alert and Oriented x3 HENT: Normocephalic, without obvious abnormality, atraumatic Musculoskeletal: No obvious contractures, deformities Cranial Nerves: II-XII intact bilaterally Motor: 5/5 strength Sensory: Intact to light touch Imaging: No new results for this encounter Assessment: 61 y.o. male who presents with pain, discomfort and incomplete SCS therapy. Plan: Patient has requested removal of the SCS device. Patient understands and agrees with the plan. Marielena Pierre MD [facility] Discharge instructions* Discharge Instructions* Christopher Patterson, SOLAR ENERGY SPECIALIST-MAINTENANCE AND REPAIR WORKER - 03/28/2022 4:28 PM EDT Images from the original note were not included. APPOINTMENTS & IMPORTANT INFORMATION READ ALL INFORMATION After you are home, please follow-up with your primary pain specialist for ongoing pain management and medication refills. Your surgeon is unable to manage your pain medications on a penitentiary basis.Beginning February 20, 2017 per [place] Law and the [place] Board of Pharmacy no more than 7 days of opioids can be prescribed for adults for acute or post surgical pain. Please follow up with your primary care provider for any other medical issues or concerns. Notify the [facility] ([phone]) if: You are experiencing severe persistent headaches You have bleeding or drainage from your incision If you have an opening of an incision If there is redness, unusual swelling, or you experience a fever greater than 101 degrees When should you call for help? Call anytime you think you may need emergency care. For example, call if: You passed out (lost consciousness). You have sudden chest pain and shortness of breath, or you cough up blood. You are unable to move a leg at all. Call your doctor now or seek immediate medical care if: You have new or worse symptoms in your legs or buttocks. Symptoms may include: Numbness or tingling. Weakness. Pain. You lose bladder or bowel control. You have loose stitches, or your incision comes open. You have blood or fluid draining from the incision. You have signs of infection, such as: Increased pain, swelling, warmth, or redness. Pus draining from the incision. A fever. Red streaks leading from the incision. INCISION CARE: You may clean your incision with a clean damp washcloth but avoid the surgical areas If you have a dressing covering your incision, this can be removed when you are home 3 days after surgery, you can gently wash the stitches with soap and water. Very gently wash in thedirection of the incision and do not scrub or use excessive force while cleansing You may shower on the 3rd day after surgery. You may get your incision wet, however avoid direct pressure of water on the surgical areas. Prolonged exposure to water may cause tissue breakdown and delay healing Avoid picking or scratching the incision at all times If there is a scab present, do not remove it. This means there is still healing taking place and itis important to continue allowing this to heal DERMABOND: Your incision(s) may have been closed with a surgical glue called Dermabond. This is a clear transparent skin closure like glue. It will remain in place for 10-14 days and wear off by itself. Keep the incision Clean and Dry. Leave the incision open to air. No further care is needed unless you have a problem. ADDITIONAL INFO: Avoid use of antibiotic ointment, alcohol, or hydrogen peroxide over the area of the incisions Avoid swimming or completely submerging the surgical areas in water until incisions are completely healed It is normal for your incision to be slightly swollen and pink. Your incisions should be inspected daily by another person who can get an overall view. Wound inspection, if possible, should begin while you are in the hospital so that significant changes will be more apparent after you go home The overall goal is to keep the incision clean and dry to prevent infection ACTIVITY: DO NOT lift over 5 pounds for 2 weeks DO NOT engage in light activities for 2 weeks. Examples of this include light housework and sexual activity DO NOT engage in heavy activities for 4 weeks. Examples of this include jogging, swimming, or physical education classes Avoid prolonged upright sitting on hard surfaces or long car rides (more than 2 hours) for 2 to 4 weeks. Limit bending or twisting is advised as this can cause migration of the electrodes before healing has occurred. The overall goal is to avoid any activity that will prevent your surgical wounds from healing properly Walking is the best exercise after the surgery. It strengthens muscles, increases endurance, relieves stress and most importantly, helps to keep proper blood flow, the bowels moving and keeps fluid from building up in the lungs. Soon after surgery, a patient is encouraged to get up and walk and gradually increase the distance. The sooner a patient becomes active, the sooner he/she will resume their normal routine. You should not drive while under the influence of pain medications. Discuss return to driving at your follow-up appointment. Avoid activities where there is the potential for a fall or physical contact until cleared by your surgeon. ABDOMINAL BINDER: You may have been given an abdominal binder to wear after the surgery. You will wear it around yourwaist for up to 4 - 6 weeks. You may remove it for showering. While using the abdominal binder, inspect your surgical incision at least twice a day. If the incision appears to be or shows signs of infection such as redness, swelling, pain or discharge, please contact your surgeon immediately. DIET: Please resume your home diet. Continue to increase protein (as your medical condition allows) with each meal to assist in wound healing. Since you have an open wound you should eat 80 to 100 grams of protein every day. Protein rich foods include: cheese, chicken, beef, pork, fish, beans, nuts (2 tablespoons equals 5-7 grams of protein), eggs, yogurt, cottage cheese. You can add protein to you diet in the following ways: Powered milk added to whole milk pudding yogurt protein powder added to drinks cheese added to sandwiches, omelettes burritos or beans low fat milk added to omelettes extra cheese or eggs added to casseroles meat added to lasagna or spaghetti yogurt and milk added to fruit smoothies beans and cheese added to salads DISCHARGE EDUCATION SAFETY CONCERNS: MRI of any body part is unsafe with neurostimulators and can result in severe damage to you and/or the neurostimulator system. Diathermy cannot be done in a person who has a neurostimulator. What is a Diathermy? A diathermy isthe use of high-frequency electric current that is used to treat chronic arthritis, bursitis, fractures, gynecologic diseases, sinusitis, and other conditions. Diathermy has been used in physical therapy at different depths for different purposes such as to warm tissue to ease muscle pain. Higher degrees of diathermy destroy tissue and has been used in surgery to deliver moderate heat directly topathological lesions in the deeper tissues of the body and destroy neoplasms, warts and/or infectedtissues, as well as to cauterize blood vessels to prevent excessive bleeding. GENERAL INFORMATION: Home appliances, computers, and cell phones DO NOT usually produce enough interference to disrupt your stimulator. Theft detectors and screening devices such as those found in public [employer], department stores, and airport security MAY cause your neurostimulator to switch ON or OFF or cause an uncomfortable sensation. You should always carry your identification card with you and may want to request assistanceto bypass detectors. Blood thinner instructions: You should not restart any blood thinning medications Aspirin, (Aleve (naproxen), Motrin/Advil (ibuprofen), CO Enzyme Q10, glucosamine, multivitamins, etc) until 4 days after your procedure. If you are taking Eliquis (apixaban) or Xarelto (rivaroxaban) you will restart this 3 days after your procedure. You may resume taking aspirin 4 days after your battery implant surgery You may resume taking Plavix or other type of blood thinners 4 days after your battery implant surgery. You may resume taking warfarin 4 days after your battery implant surgery. Please contact the doctorwho normally manages your warfarin for instructions on resuming the medication and checking your INR. IF YOU ARE TO HAVE ANOTHER PROCEDURE PLEASE FOLLOW THE SAME MEDICATION INSTRUCTIONS YOU HAD FOR THIS SURGERY [facility] History of Present illness Narrative* Jacy Daigle - 03/13/2022 2:00 PM EDT Name: Ministerio Leal DOS: 03/01/2022 Today's Date: 03/13/2022 Ministerio Leal returned to clinic today for wound check from recent SCS implant surgery. The patientreports that they are doing ok, but complains of pain that is different from before surgery. Exam: The posterior lumbar wound is well-healed without surrounding erythema or drainage. The left flank wound is well-healed without surrounding erythema or drainage. The Dermabond is almost dissolved completely. Patient complains of new pain since surgery that he describes as the battery itself. He says thatthe IPG is rubbing against his rib and is causing him excruciating pain that takes my breath away. He also reports having pain at the bottom of the lumbar wound. Dr. Pierre is not in clinic, so I spoke with him over the phone. He is currently in [facility] and will come see patient as soon as he can. Patient is willing to wait. Plan: The patient was told they could shower and bathe as normal at this time. They were provided an abdominal binder as they were not given one at discharge from the hospital. They were instructed on use of the binder. They were advised to contact our office if they begin to develop any redness or drainage from the surgical wounds. They were advised to follow up with their referring physician. We do not plan on seeing the patientback in active follow-up, however they are to contact our office with any other concerns or questions. The patient has the proper contact information for their pump for any equipment related questions. Patient Instructions: An appointment should be made with your pain physician for SCS programming. Please follow up with your primary care provider for any other medical issues or concerns. Beginning February 20, 2017 per [place] Law and the [place] Board of Pharmacy no more than 7 days of opioids can be prescribed for adults for acute or post surgical pain. Notify the [facility] ([phone]) if: You are experiencing severe persistent headaches You have bleeding or drainage from your incision If you have an opening of an incision If there is redness, unusual swelling, or you experience a fever greater than 101 degrees ABDOMINAL BINDER: You will be given an abdominal binder to wear after the surgery around the clock - only taking it off to shower. You will wear it around your waist for 6 - [address] a t-shirt on first then the binder to reduce itching the binder may cause. While using the abdominal binder, inspect your surgical incision at least twice a day. If the incision appears to be or shows signs ofinfection such as redness, swelling, pain or discharge, please contact your surgeon immediately. INCISION CARE: You may clean your body with a clean damp washcloth but avoid the surgical areas If you have a dressing covering your incision, this can be removed when you are home 3 days after surgery, you can gently wash the stitches with soap and water. Very gently wash in thedirection of the incision and do not scrub or use excessive force while cleansing. You may shower on the 3rd day after surgery. You may get your incision wet, however avoid direct pressure of water on the surgical areas Prolonged exposure to water may cause tissue breakdown and delay healing Avoid picking or scratching the incision at all times If there is a scab present, do not remove it. This means there is still healing taking place and itis important to continue allowing this to heal DERMABOND: Your incision(s) may have been closed with a surgical glue called Dermabond. This is a clear transparent skin closure like glue. It will remain in place for 10-14 days and wear off by itself. Keep the incision Clean and Dry. Leave the incision open to air. No further care is needed unless you have a problem. ACTIVITY: DO NOT lift over 5 pounds for 2 weeks DO NOT engage in light activities for 2 weeks. Examples of this include light housework and sexual activity DO NOT engage in heavy activities for 4 weeks. Examples of this include jogging, swimming, or physical education classes Avoid prolonged upright sitting on hard surfaces or long car rides (more than 2 hours) for 2 to 4 weeks Limit bending or twisting is advised as this can cause migration of the catheter or hypermobility of the pump before healing has occurred The overall goal is to avoid any activity that will prevent your surgical wounds from healing properly Walking is the best exercise after the surgery. It strengthens muscles, increases endurance, relieves stress and most importantly, helps to keep proper blood flow, the bowels moving and keeps fluid from building up in the lungs. Soon after surgery, a patient is encouraged to get up and walk and gradually increase the distance. The sooner a patient becomes active, the sooner he/she will resume their normal routine. You should not drive while under the influence of pain medications. Avoid activities where there is the potential for a fall or physical contact until cleared by your surgeon. You may experience positional headaches/spinal headaches for next couple of days. This can be alleviated by taking acetaminophen (Tylenol), but we would recommend avoiding NSAIDs - ibuprofen/naproxen, which can delay the closure of small puncture cardenas. In case your positional headaches (sitting/standing causes headaches, and lying down alleviates) donot resolve over 10 days, please contact us. We may need to set up procedure called blood patch -using your own blood to close the leakage site. Please take plenty of fluid (during daytime, please take fluid with caffeine - coffee, tea, diet-Coke/Pepsi, diet-Mountain Dew, etc), which can promote production of spinal fluid. Additionally drink plenty of water to avoid dehydration. * Marielena Pierre MD - 03/13/2022 2:00 PM EDT The patient presented for programing and wound check. Of note, the patient stated that he was doingwell until a few days after the procedure. He was exiting the shower and had some intense spasms and experienced intense pain at the battery site that has been causing significant discomfort since. He states he now feels the battery will rub up against his rib cage. On inspection of the site it apears that the battery has migrated rostrally from where it was positioned during the surgery as it isnow significantly higher than where it was placed with respect to the incision line. His pain was likely a combination of the tack down sutures breaking and distension of henrique's fascia, both of which can cause significant pain. With regards to his stimulation he still is not getting coverage on the right. He states that his pain will be on the left and the next day it can be on the right so when this happens he is not getting coverage. The [employer] rep and myself worked on reprograming the battery. We were able to get coverage on the right arm from the distal shoulder level to the hand. I informed the patient to see how the stimulation is on the right and if he is happy with this then wecan leave it be. If not we can schedule him for a repositioning of the battery and right lead. If he likes these new settings then we would just schedule a revision of the battery. He will call us onFriday to update his situation. documented in this [facility]09-21-2022 Instructions* Patient Instructions* Jacy Daigle - 03/13/2022 2:00 PM EDT Patient Instructions: An appointment should be made with your pain physician for SCS programming. Please follow up with your primary care provider for any other medical issues or concerns. Beginning February 20, 2017 per [place] Law and the [place] Board of Pharmacy no more than 7 days of opioids can be prescribed for adults for acute or post surgical pain. Notify the [facility] ([phone]) if: You are experiencing severe persistent headaches You have bleeding or drainage from your incision If you have an opening of an incision If there is redness, unusual swelling, or you experience a fever greater than 101 degrees ABDOMINAL BINDER: You will be given an abdominal binder to wear after the surgery around the clock - only taking it off to shower. You will wear it around your waist for 6 - [address] a tshirt on first then the binder to reduce itching the binder may cause. While using the abdominal binder, inspect yoursurgical incision at least twice a day. If the incision appears to be or shows signs of infection such as redness, swelling, pain or discharge, please contact your surgeon immediately. INCISION CARE: You may clean your body with a clean damp washcloth but avoid the surgical areas If you have a dressing covering your incision, this can be removed when you are home 3 days after surgery, you can gently wash the stitches with soap and water. Very gently wash in thedirection of the incision and do not scrub or use excessive force while cleansing. You may shower on the 3rd day after surgery. You may get your incision wet, however avoid direct pressure of water on the surgical areas Prolonged exposure to water may cause tissue breakdown and delay healing Avoid picking or scratching the incision at all times If there is a scab present, do not remove it. This means there is still healing taking place and itis important to continue allowing this to heal DERMABOND: Your incision(s) may have been closed with a surgical glue called Dermabond. This is a clear transparent skin closure like glue. It will remain in place for 10-14 days and wear off by itself. Keep the incision Clean and Dry. Leave the incision open to air. No further care is needed unless you have a problem. ACTIVITY: DO NOT lift over 5 pounds for 2 weeks DO NOT engage in light activities for 2 weeks. Examples of this include light housework and sexual activity DO NOT engage in heavy activities for 4 weeks. Examples of this include jogging, swimming, or physical education classes Avoid prolonged upright sitting on hard surfaces or long car rides (more than 2 hours) for 2 to 4 weeks Limit bending or twisting is advised as this can cause migration of the catheter or hypermobility of the pump before healing has occurred The overall goal is to avoid any activity that will prevent your surgical wounds from healing properly Walking is the best exercise after the surgery. It strengthens muscles, increases endurance, relieves stress and most importantly, helps to keep proper blood flow, the bowels moving and keeps fluid from building up in the lungs. Soon after surgery, a patient is encouraged to get up and walk and gradually increase the distance. The sooner a patient becomes active, the sooner he/she will resume their normal routine. You should not drive while under the influence of pain medications. Avoid activities where there is the potential for a fall or physical contact until cleared by your surgeon. You may experience positional headaches/spinal headaches for next couple of days. This can be alleviated by taking acetaminophen (Tylenol), but we would recommend avoiding NSAIDs - ibuprofen/naproxen, which can delay the closure of small puncture cardenas. In case your positional headaches (sitting/standing causes headaches, and lying down alleviates) donot resolve over 10 days, please contact us. We may need to set up procedure called blood patch -using your own blood to close the leakage site. Please take plenty of fluid (during daytime, please take fluid with caffeine - coffee, tea, diet-Coke/Pepsi, diet-Mountain Dew, etc), which can promote production of spinal fluid. Additionally drink plenty of water to avoid dehydration. [facility] Miscellaneous Notes* Nursing Notes - Delmer Noyola RN - 03/01/2022 11:15 AM EDT OK to discharge patient per Dr. Pierre. Patient dressed independently, urinated without difficulty. Will be driven home per family member. Will be taken to front entrance per wheelchair. * Nursing Notes - Delmer Noyola RN - 03/01/2022 10:[address] Pierre at bedside to see patient with [employer] rep. * Nursing Notes - Delmer Noyola RN - 03/01/2022 10:50 AM EDT [employer] rep at bedside to see patient again. * Nursing Notes - Delmer Noyola RN - 03/01/2022 10:25 AM EDT Patient returned from XR. * Nursing Notes - Delmer Noyola RN - 03/01/2022 10:10 AM EDT [employer] rep requesting XR now for comparison to OR imaging. Patient to XR per wheelchair at thistime. * Nursing Notes - Delmer Noyola RN - 03/01/2022 9:55 AM EDT [employer] rep at bedside for programming. * Nursing Notes - Delmer Noyola RN - 03/01/2022 9:30 AM EDT AVS and 3 prescriptions (percocet, docusate, doxycycline) reviewed with patient and family member. Paper RX for percocet identified and provided. Questions and concerns addressed. Patient denies further needs at this time. * Nursing Notes - Angelita Hernández RN - 03/01/2022 7:16 AM EDT @ 0861 ISBAR report given to CONTAINER CRANE OPERATOR Debbie and SENIOR ADMINISTRATIVE SERVICES OFFICER . All questions answered and pt taken to OR in stretcher. 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 POSTOPERATIVE DIAGNOSIS: Post-Op Diagnosis Codes: * Cervicalgia [M54.2] * Chronic pain syndrome [G89.4] Past Medical History: Diagnosis Date Arthritis Duodenal ulcer GERD (gastroesophageal reflux disease) Jaundice Liver disease Migraine Other abnormal glucose mesentaric eschemia, 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 Percutaneous placement of first epidural spinal cord stimulator lead. 2. Percutaneous placement of second epidural spinal cord stimulator lead. 3. Intraoperative use of C-arm fluoroscopy for level localization and lead placement 4. Left flank incision for creation of subcutaneous pocket for pulse generator. 5. Intraoperative complex programming assessment of both devices. SUMMARY OF INDICATIONS: The patient is a 61 y.o. male with a history of chronic intractable pain refractory to aggressive medical/surgical measures but ultimately responded dramatically to a trial of epidural spinal cord stimulation. The patient was felt to be a candidate for the implantable device for continuous use leading to the procedure discussed below. I discussed with the patient in great detail the risks, benefits and anticipated outcomes of the procedure, the risks and benefits of the alternatives to the procedure, and the patient consents to the procedure and agrees to proceed. SUMMARY OF PROCEDURE IN DETAIL WITH OPERATIVE FINDINGS: The patient was brought from the holding area to the operating room in stable condition. The patient was placed on the operating table in the prone position on pillows with all bony points padded. After the placement of the appropriate lines, IV antibiotics and sedation were administered. An appropriate timeout was performed. The patient's back and left flank areas were cleanly shaved, degreased,and sterilized using ChloraPrep. Sterile drapes were placed around the perimeter of the field. At this point, C-arm fluoroscopy was used for level localization and an incision was proposed over the T4-5 spinous processes and the left flank. 2% Lidocaine with 0.75% Marcaine with 1:100,000 Epinephrine was used for local anesthetic. Starting in the lumbar region the skin was incised sharply with a #10 blade. Dissection was carried down to the fashia with monopolar cautery. A subfascial pocket was created. A 14-gauge needle was then used to cannulate the epidural space using the loss of resistance technique and intraoperative C-arm fluoroscopy. Under fluoroscopic guidance, then a Mod[employer] 1 x 8 electrode was threaded into the epidural space. The electrode was then guided, under fluoroscopic guidance to the bottom of C2. A second 14-gauge needle was then used to cannulate the epidural space, again using the loss of resistance technique and the C-arm. Again, under fluoroscopic guidance, a M Lakootronic 1 x 8 electrode was threaded into the epidural space to the bottom of C2. Intraoperative programming test was performed using the screener box and the patient experienced maximal paresthesias over the desired areas concordant with the area of pain. It was felt that the electrodes were in the optimal position for the permanent placement. At this point, the needles were removed under fluoroscopic guidance. The stylets were then removed under fluoroscopic guidance, and the electrodes weresecured to the fascia using the supplied anchor and 2-0 silk sutures. Attention was then turned to the left flank where a subcutaneous pocket of sufficient size was created for the pulse generator. A subcutaneous tunnel was created between these 2 incisions, whereby the 2 tails of the electrodes were led through this tunnel and secured to the 2 loren rechargeable [employer]as[employer] pulse generator, which was placed in the subcutaneous pocket. Copious volumes of saline was used for irrigation. Any bleeding points were controlled with Bovie and bipolar cautery. Vancomycin powder was placed into the wounds. Closure was instituted using 2-0 and 3-0 Vicryl in a simple interrupted inverted fashion for the fascial layers followed by 4-0 subcuticular Stratafix monocryl for the skin. The incisions were cleaned with saline and dried, Dermabond was applied and sterile dressings were applied. All needle, sponge, and blade counts were correct x2 as verified by the nurse. The pulse generator programming device was then used to interrogate and program the pulse generator to ensure that the impedances were normal, outputs were set to 0 and that all 2 channels were turned off. The patient was then rotated back to the supine position on the [facility] and transported to the recovery room in stable and satisfactory condition, tolerating the procedure quite well. The IPG was programed in the recovery room to therapeutic settings using various pulse widths, frequencies, and intensities. Marielena Pierre MD * Brief Op Note - Marielena Pierre MD - 03/01/2022 6:53 AM EDT Ministerio Leal ([id number]) PRE OPERATIVE DIAGNOSIS Cervicalgia [M54.2] Chronic pain syndrome [G89.4] POST OPERATIVE DIAGNOSIS Post-Op Diagnosis Codes: * Cervicalgia [M54.2] * Chronic pain syndrome [G89.4] PROCEDURE PERFORMED Procedure(s) (LRB): Insertion Neurostimulator Electrode Spinal Percutaneous (Midline) Insertion Replacement Neurostimulator Generator Spinal (N/A) Guidance Fluoroscopic Needle Placement (N/A) PRIMARY CLOSURE Yes INTRAOPERATIVE FINDINGS No significant abnormalities SURGEON Surgeon(s) and Role: * Marielena Pierre MD - Primary ANESTHESIOLOGIST Anesthesiologist: Garrett Baird MD SENIOR ADMINISTRATIVE SERVICES OFFICER: Earlene Beltran APRN-SENIOR ADMINISTRATIVE SERVICES OFFICER SURGICAL STAFF Drum Sander Offbearer: Anastasia Wynn RN Scrub Person: Andreina Martin COMPLICATIONS None ESTIMATED BLOOD LOSS Minimal SPECIMENS No specimen sent * No specimens in log * Marielena Pierre MD March 01, 2022 6:53 AM documented in this [facility] Note* Nursing Notes - Delmer Noyola RN - 03/01/2022 11:15 AM EDT OK to discharge patient per Dr. Pierre. Patient dressed independently, urinated without difficulty. Will be driven home per family member. Will be taken to front entrance per wheelchair. [facility]09-09-2022 Note* Nursing Notes - Delmer Noyola RN - 03/01/2022 10:[address] Pierre at bedside to see patient with [employer] rep. [facility]09-09-2022 Note* Nursing Notes - Delmer Noyola RN - 03/01/2022 10:50 AM EDT [employer] rep at bedside to see patient again. [facility]09-09-2022 Note* Nursing Notes - Delmer Noyola RN - 03/01/2022 10:25 AM EDT Patient returned from XR. [facility]09-09-2022 Note* Nursing Notes - Delmer Noyola RN - 03/01/2022 10:10 AM EDT [employer] rep requesting XR now for comparison to OR imaging. Patient to XR per wheelchair at thistime. [facility]09-09-2022 Note* Nursing Notes - Delmer Noyola RN - 03/01/2022 9:55 AM EDT [employer] rep at bedside for programming. [facility]09-09-2022 Note* Nursing Notes - Delmer Noyola RN - 03/01/2022 9:30 AM EDT AVS and 3 prescriptions (percocet, docusate, doxycycline) reviewed with patient and family member. Paper RX for percocet identified and provided. Questions and concerns addressed. Patient denies further needs at this time. [facility]09-09-2022 Note* Nursing Notes - Angelita Hernández RN - 03/01/2022 7:16 AM EDT @ 0715 ISBAR report given to CONTAINER CRANE OPERATOR Debbie and SENIOR ADMINISTRATIVE SERVICES OFFICER . All questions answered and pt taken to OR in stretcher. 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 POSTOPERATIVE DIAGNOSIS: Post-Op Diagnosis Codes: * Cervicalgia [M54.2] * Chronic pain syndrome [G89.4] Past Medical History: Diagnosis Date Arthritis Duodenal ulcer GERD (gastroesophageal reflux disease) Jaundice Liver disease Migraine Other abnormal glucose mesentaric eschemia, 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 Percutaneous placement of first epidural spinal cord stimulator lead. 2. Percutaneous placement of second epidural spinal cord stimulator lead. 3. Intraoperative use of C-arm fluoroscopy for level localization and lead placement 4. Left flank incision for creation of subcutaneous pocket for pulse generator. 5. Intraoperative complex programming assessment of both devices. SUMMARY OF INDICATIONS: The patient is a 61 y.o. male with a history of chronic intractable pain refractory to aggressive medical/surgical measures but ultimately responded dramatically to a trial of epidural spinal cord stimulation. The patient was felt to be a candidate for the implantable device for continuous use leading to the procedure discussed below. I discussed with the patient in great detail the risks, benefits and anticipated outcomes of the procedure, the risks and benefits of the alternatives to the procedure, and the patient consents to the procedure and agrees to proceed. SUMMARY OF PROCEDURE IN DETAIL WITH OPERATIVE FINDINGS: The patient was brought from the holding area to the operating room in stable condition. The patient was placed on the operating table in the prone position on pillows with all bony points padded. After the placement of the appropriate lines, IV antibiotics and sedation were administered. An appropriate timeout was performed. The patient's back and left flank areas were cleanly shaved, degreased,and sterilized using ChloraPrep. Sterile drapes were placed around the perimeter of the field. At this point, C-arm fluoroscopy was used for level localization and an incision was proposed over the T4-5 spinous processes and the left flank. 2% Lidocaine with 0.75% Marcaine with 1:100,000 Epinephrine was used for local anesthetic. Starting in the lumbar region the skin was incised sharply with a #10 blade. Dissection was carried down to the fashia with monopolar cautery. A subfascial pocket was created. A 14-gauge needle was then used to cannulate the epidural space using the loss of resistance technique and intraoperative C-arm fluoroscopy. Under fluoroscopic guidance, then a Medtronic 1 x 8 electrode was threaded into the epidural space. The electrode was then guided, under fluoroscopic guidance to the bottom of C2. A second 14-gauge needle was then used to cannulate the epidural space, again using the loss of resistance technique and the C-arm. Again, under fluoroscopic guidance, a M edtronic 1 x 8 electrode was threaded into the epidural space to the bottom of C2. Intraoperative programming test was performed using the screener box and the patient experienced maximal paresthesias over the desired areas concordant with the area of pain. It was felt that the electrodes were in the optimal position for the permanent placement. At this point, the needles were removed under fluoroscopic guidance. The stylets were then removed under fluoroscopic guidance, and the electrodes weresecured to the fascia using the supplied anchor and 2-0 silk sutures. Attention was then turned to the left flank where a subcutaneous pocket of sufficient size was created for the pulse generator. A subcutaneous tunnel was created between these 2 incisions, whereby the 2 tails of the electrodes were led through this tunnel and secured to the 2 loren rechargeable Medtronic Intellis pulse generator, which was placed in the subcutaneous pocket. Copious volumes of saline was used for irrigation. Any bleeding points were controlled with Bovie and bipolar cautery. Vancomycin powder was placed into the wounds. Closure was instituted using 2-0 and 3-0 Vicryl in a simple interrupted inverted fashion for the fascial layers followed by 4-0 subcuticular Stratafix monocryl for the skin. The incisions were cleaned with saline and dried, Dermabond was applied and sterile dressings were applied. All needle, sponge, and blade counts were correct x2 as verified by the nurse. The pulse generator programming device was then used to interrogate and program the pulse generator to ensure that the impedances were normal, outputs were set to 0 and that all 2 channels were turned off. The patient was then rotated back to the supine position on the [facility] and transported to the recovery room in stable and satisfactory condition, tolerating the procedure quite well. The IPG was programed in the recovery room to therapeutic settings using various pulse widths, frequencies, and intensities. Marielena Pierre MD [facility]09-09-2022 Note* Brief Op Note - Marielena Pierre MD - 03/01/2022 6:53 AM EDT Ministerio Leal ([id number]) PRE OPERATIVE DIAGNOSIS Cervicalgia [M54.2] Chronic pain syndrome [G89.4] POST OPERATIVE DIAGNOSIS Post-Op Diagnosis Codes: * Cervicalgia [M54.2] * Chronic pain syndrome [G89.4] PROCEDURE PERFORMED Procedure(s) (LRB): Insertion Neurostimulator Electrode Spinal Percutaneous (Midline) Insertion Replacement Neurostimulator Generator Spinal (N/A) Guidance Fluoroscopic Needle Placement (N/A) PRIMARY CLOSURE Yes INTRAOPERATIVE FINDINGS No significant abnormalities SURGEON Surgeon(s) and Role: * Marielena Pierre MD - Primary ANESTHESIOLOGIST Anesthesiologist: Garrett Baird MD SENIOR ADMINISTRATIVE SERVICES OFFICER: Earlene Beltran APRN-SENIOR ADMINISTRATIVE SERVICES OFFICER SURGICAL STAFF Drum Sander Offbearer: Anastasia Wynn RN Scrub Person: Andreina Salazar COMPLICATIONS None ESTIMATED BLOOD LOSS Minimal SPECIMENS No specimen sent * No specimens in log * Marielena Pierre MD March 01, 2022 6:53 AM [facility] History and physical note* Marielena Pierre MD - 03/01/2022 6:51 AM EDT Neurosurgery History and Physical Note Date: 03/01/2022 Patient: Ministerio Leal Date of : 1960 Visit Date: 03/01/22 Visit Type: Surgery Chief Complaint No chief complaint on file. History of Present Illness Ministerio Leal is a 61 y.o. male who presents with neck and arm pain with positive trial of cervicalepidural SCS therapy. 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 Past Surgical History: Procedure Laterality Date INSERTION NEUROSTIMULATOR ELECTRODE SPINAL PERCUTANEOUS Midline 02/01/2022 Laterality: Midline; Surgeon: Marielena Pierre MD; Location: [facility] PERIOP GUIDANCE FLUOROSCOPIC NEEDLE PLACEMENT ADD-ON PX N/A 02/01/2022 Laterality: N/A; Surgeon: Marielena Pierre MD; Location: [facility] PERIOP CERVICAL FUSION CHOLECYSTECTOMY LAPAROSCOPIC COLONOSCOPY DIAGNOSTIC 4 polyps, 1 precancerous EGD DIAGNOSTIC OTHER SURGICAL stent in celiac and superior mesenteric artery REMOVAL BILIARY DUCT/GALLBLADDER CALCULI/DEBRIS PERCUTANEOUS W/ IMAGE Allergies: Allergies Allergen Reactions Omeprazole Headache Other reaction(s): Other: See Comments Headaches Social History: Social History Socioeconomic History Marital status: Spouse name: Not on file Number of children: Not on file Years of education: Not on file Highest education level: Not on file Occupational History Not on file Tobacco Use Smoking status: Current Every Day Smoker Packs/day: 0.50 Types: Cigarettes Smokeless tobacco: Never Used Substance and Sexual Activity Alcohol use: Never Drug use: Yes Types: Marijuana Comment: 3-5 puffs daily; last use 9/7 PM Sexual activity: Not Currently Partners: Female Other Topics Concern Not on file Social History Narrative Not on file Social Determinants of Health Financial Resource Strain: Not on file Food Insecurity: Not on file Transportation Needs: Not on file Physical Activity: Not on file Stress: Not on file Social Connections: Not on file Intimate Partner Violence: Not on file Housing Stability: Not on file Review of Systems: O/w 13 point ROS is negative other than HPI Physical Exam: General: No acute distress. Alert and Oriented x3 HENT: Normocephalic, without obvious abnormality, atraumatic Musculoskeletal: No obvious contractures, deformities Cranial Nerves: II-XII intact bilaterally Motor: 5/5 strength Sensory: Intact to light touch Imaging: No new results for this encounter. Assessment: 61 y.o. male who presents with chronic pain with positive trial of epidural SCS. Plan: Implantation of SCS device. Patient understands and agrees with the plan. Marielena Pierre MD [facility]09-09-2022 History and physical note* Marielena Pierre MD - 03/01/2022 6:51 AM EDT Neurosurgery History and Physical Note Date: 03/01/2022 Patient: Ministerio Leal Date of : 1960 Visit Date: 03/01/22 Visit Type: Surgery Chief Complaint No chief complaint on file. History of Present Illness Ministerio Leal is a 61 y.o. male who presents with neck and arm pain with positive trial of cervicalepidural SCS therapy. 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 Past Surgical History: Procedure Laterality Date INSERTION NEUROSTIMULATOR ELECTRODE SPINAL PERCUTANEOUS Midline 02/01/2022 Laterality: Midline; Surgeon: Marielena Pierre MD; Location: [facility] PERIOP GUIDANCE FLUOROSCOPIC NEEDLE PLACEMENT ADD-ON PX N/A 02/01/2022 Laterality: N/A; Surgeon: Marielena Pierre MD; Location: [facility] PERIOP CERVICAL FUSION CHOLECYSTECTOMY LAPAROSCOPIC COLONOSCOPY DIAGNOSTIC 4 polyps, 1 precancerous EGD DIAGNOSTIC OTHER SURGICAL stent in celiac and superior mesenteric artery REMOVAL BILIARY DUCT/GALLBLADDER CALCULI/DEBRIS PERCUTANEOUS W/ IMAGE Allergies: Allergies Allergen Reactions Omeprazole Headache Other reaction(s): Other: See Comments Headaches Social History: Social History Socioeconomic History Marital status: Spouse name: Not on file Number of children: Not on file Years of education: Not on file Highest education level: Not on file Occupational History Not on file Tobacco Use Smoking status: Current Every Day Smoker Packs/day: 0.50 Types: Cigarettes Smokeless tobacco: Never Used Substance and Sexual Activity Alcohol use: Never Drug use: Yes Types: Marijuana Comment: 3-5 puffs daily; last use 9/7 PM Sexual activity: Not Currently Partners: Female Other Topics Concern Not on file Social History Narrative Not on file Social Determinants of Health Financial Resource Strain: Not on file Food Insecurity: Not on file Transportation Needs: Not on file Physical Activity: Not on file Stress: Not on file Social Connections: Not on file Intimate Partner Violence: Not on file Housing Stability: Not on file Review of Systems: O/w 13 point ROS is negative other than HPI Physical Exam: General: No acute distress. Alert and Oriented x3 HENT: Normocephalic, without obvious abnormality, atraumatic Musculoskeletal: No obvious contractures, deformities Cranial Nerves: II-XII intact bilaterally Motor: 5/5 strength Sensory: Intact to light touch Imaging: No new results for this encounter. Assessment: 61 y.o. male who presents with chronic pain with positive trial of epidural SCS. Plan: Implantation of SCS device. Patient understands and agrees with the plan. Marielena Pierre MD [facility] Discharge instructions* Discharge Instructions* Kristine Marina Lawrence, SOLAR ENERGY SPECIALIST-MAINTENANCE AND REPAIR WORKER - 02/25/2022 8:47 AM EDT Images from the original note were not included. APPOINTMENTS & IMPORTANT INFORMATION READ ALL INFORMATION The stimulator will be programmed and switched on before you leave the hospital. If further programming is required to improve pain control, please call your surgeons office to arrange this. After you are home, please follow-up with your primary pain specialist for ongoing pain management and medication refills. Your surgeon is unable to manage your pain medications on a penitentiary basis.Beginning February 20, 2017 per [place] Law and the [place] Board of Pharmacy no more than 7 days of opioids can be prescribed for adults for acute or post surgical pain. Please follow up with your primary care provider for any other medical issues or concerns. Notify the [facility] ([phone]) if: You are experiencing severe persistent headaches You have bleeding or drainage from your incision If you have an opening of an incision If there is redness, unusual swelling, or you experience a fever greater than 101 degrees When should you call for help? Call anytime you think you may need emergency care. For example, call if: You passed out (lost consciousness). You have sudden chest pain and shortness of breath, or you cough up blood. You are unable to move a leg at all. Call your doctor now or seek immediate medical care if: You have new or worse symptoms in your legs or buttocks. Symptoms may include: Numbness or tingling. Weakness. Pain. You lose bladder or bowel control. You have loose stitches, or your incision comes open. You have blood or fluid draining from the incision. You have signs of infection, such as: Increased pain, swelling, warmth, or redness. Pus draining from the incision. A fever. Red streaks leading from the incision. INCISION CARE: You may clean your incision with a clean damp washcloth but avoid the surgical areas If you have a dressing covering your incision, this can be removed when you are home 3 days after surgery, you can gently wash the stitches with soap and water. Very gently wash in thedirection of the incision and do not scrub or use excessive force while cleansing You may shower on the 3rd day after surgery. You may get your incision wet, however avoid direct pressure of water on the surgical areas. Prolonged exposure to water may cause tissue breakdown and delay healing Avoid picking or scratching the incision at all times If there is a scab present, do not remove it. This means there is still healing taking place and itis important to continue allowing this to heal DERMABOND: Your incision(s) may have been closed with a surgical glue called Dermabond. This is a clear transparent skin closure like glue. It will remain in place for 10-14 days and wear off by itself. Keep the incision Clean and Dry. Leave the incision open to air. No further care is needed unless you have a problem. ADDITIONAL INFO: Avoid use of antibiotic ointment, alcohol, or hydrogen peroxide over the area of the incisions Avoid swimming or completely submerging the surgical areas in water until incisions are completely healed It is normal for your incision to be slightly swollen and pink. Your incisions should be inspected daily by another person who can get an overall view. Wound inspection, if possible, should begin while you are in the hospital so that significant changes will be more apparent after you go home The overall goal is to keep the incision clean and dry to prevent infection ACTIVITY: DO NOT lift over 5 pounds for 2 weeks DO NOT engage in light activities for 2 weeks. Examples of this include light housework and sexual activity DO NOT engage in heavy activities for 4 weeks. Examples of this include jogging, swimming, or physical education classes Avoid prolonged upright sitting on hard surfaces or long car rides (more than 2 hours) for 2 to 4 weeks. Limit bending or twisting is advised as this can cause migration of the electrodes before healing has occurred. The overall goal is to avoid any activity that will prevent your surgical wounds from healing properly Walking is the best exercise after the surgery. It strengthens muscles, increases endurance, relieves stress and most importantly, helps to keep proper blood flow, the bowels moving and keeps fluid from building up in the lungs. Soon after surgery, a patient is encouraged to get up and walk and gradually increase the distance. The sooner a patient becomes active, the sooner he/she will resume their normal routine. You should not drive while under the influence of pain medications. Discuss return to driving at your follow-up appointment. Avoid activities where there is the potential for a fall or physical contact until cleared by your surgeon. ABDOMINAL BINDER: You may have been given an abdominal binder to wear after the surgery. You will wear it around yourwaist for up to 4 - 6 weeks. You may remove it for showering. While using the abdominal binder, inspect your surgical incision at least twice a day. If the incision appears to be or shows signs of infection such as redness, swelling, pain or discharge, please contact your surgeon immediately. DIET: Please resume your home diet. Continue to increase protein (as your medical condition allows) with each meal to assist in wound healing. Since you have an open wound you should eat 80 to 100 grams of protein every day. Protein rich foods include: cheese, chicken, beef, pork, fish, beans, nuts (2 tablespoons equals 5-7 grams of protein), eggs, yogurt, cottage cheese. You can add protein to you diet in the following ways: Powered milk added to whole milk pudding yogurt protein powder added to drinks cheese added to sandwiches, omelettes burritos or beans low fat milk added to omelettes extra cheese or eggs added to casseroles meat added to lasagna or spaghetti yogurt and milk added to fruit smoothies beans and cheese added to salads DISCHARGE EDUCATION SAFETY CONCERNS: MRI of any body part is unsafe with neurostimulators and can result in severe damage to you and/or the neurostimulator system. Diathermy cannot be done in a person who has a neurostimulator. What is a Diathermy? A diathermy isthe use of high-frequency electric current that is used to treat chronic arthritis, bursitis, fractures, gynecologic diseases, sinusitis, and other conditions. Diathermy has been used in physical therapy at different depths for different purposes such as to warm tissue to ease muscle pain. Higher degrees of diathermy destroy tissue and has been used in surgery to deliver moderate heat directly topathological lesions in the deeper tissues of the body and destroy neoplasms, warts and/or infectedtissues, as well as to cauterize blood vessels to prevent excessive bleeding. GENERAL INFORMATION: Home appliances, computers, and cell phones DO NOT usually produce enough interference to disrupt your stimulator. Theft detectors and screening devices such as those found in public [employer], department stores, and airport security MAY cause your neurostimulator to switch ON or OFF or cause an uncomfortable sensation. You should always carry your identification card with you and may want to request assistanceto bypass detectors. BLOOD THINNER INSTRUCTIONS: You should not restart any blood thinning medications Aspirin, (Aleve (naproxen), Motrin/Advil (ibuprofen), CO Enzyme Q10, glucosamine, multivitamins, etc) until 4 days after your procedure. You may resume taking aspirin 4 days after your implant surgery You may resume taking Plavix or other type of blood thinners 4 days after your implant surgery. You may resume taking warfarin 4 days after your implant surgery. Please contact the doctor who normally manages your warfarin for instructions on resuming the medication and checking your INR. documented [facility] History of Present illness Narrative* De Red RN - 02/08/2022 4:30 PM EDT Name: Ministerio Leal DOS: 02/08/22 Age: 61 y.o. Sex: male Referring physician: Hitesh Dai MD [address] [place] [address] [place] [id number] HPI/CC: Ministerio Leal returned to clinic today for removal of spinal cord stimulator trial leads. The patient reports that during the trial period they received approximately 70-80% coverage of their area ofpain. Before surgery their pain was rated 9/10, and during the trial period, it was 2/10. The patient reports a 80% improvement of their pain. Historical Information: Pain: When the pain started: 2-3 years ago How the pain started: After previous surgery several years ago when he underwent a C4-5 and a C6-7 skip level ACDF. Level of pain: 10 (Worst Imaginable Pain) /10 at it's worst. Location of pain: Neck and Shoulder, Both sides Quality of the pain: constant Other symptoms associated with pain: Back spasms, migraine headaches When the pain occurs: Increases w/prolonged sitting/standing/walking Aggravated by: Movement; bending Improved with: Can sometimes be improved by lying down Treatments: Spinal Cord Trial Stimulator Performed: yes, by Dr. Marielena Pierre. 80 percent improvement of pain. 70-80 percent coverage of area of pain. 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 Past Surgical History: Procedure Laterality Date INSERTION NEUROSTIMULATOR ELECTRODE SPINAL PERCUTANEOUS Midline 02/01/2022 Laterality: Midline; Surgeon: Marielena Pierre MD; Location: [facility] PERIOP GUIDANCE FLUOROSCOPIC NEEDLE PLACEMENT ADD-ON PX N/A 02/01/2022 Laterality: N/A; Surgeon: Marielena Pierre MD; Location: [facility] PERIOP CERVICAL FUSION CHOLECYSTECTOMY LAPAROSCOPIC COLONOSCOPY DIAGNOSTIC 4 polyps, 1 precancerous EGD DIAGNOSTIC OTHER SURGICAL stent in celiac and superior mesenteric artery REMOVAL BILIARY DUCT/GALLBLADDER CALCULI/DEBRIS PERCUTANEOUS W/ IMAGE Current Outpatient Medications Medication Sig aspirin 81 MG Chew Tab chewable tablet Chew 81 mg Daily (with dinner). xkqexmcsld-cpizhdp-iaezzfit-codeine [id number] MG capsule Take 1 capsule by mouth daily as needed. chlorhexidine 0.12 % Solution oral solution SWISH AND SPIT 1/2 OZ. (15ML) TWICE A DAY clopidogrel 75 MG Tab tablet Take 75 mg by mouth Daily (with dinner). docusate 100 MG capsule Take 1 capsule by mouth 2 times daily for 7 days. doxycycline hyclate 100 MG capsule Take 1 capsule by mouth 2 times daily for 7 days. ondansetron 8 MG Tab Dispersible tablet Take 1 tablet by mouth as needed for Nausea / Vomiting. oxyCODONE 5 MG tablet TAKE 1 TABLET BY MOUTH EVERY 6 HOURS NEEDED FOR SEVERE HEADACHE oxyCODONE-acetaminophen 5-325 MG per tablet Take 1 tablet by mouth every 6 hours as needed for Pain(breakthrough) for up to 7 days. pantoprazole [address] tablet DR Take 40 mg by mouth daily with dinner. rosuvastatin 10 MG Tab tablet Take 10 mg by mouth daily with dinner. sucralfate 1 g tablet Take 1 g by mouth. Allergies: Allergies Allergen Reactions Omeprazole Headache Other reaction(s): Other: See Comments Headaches Family History Problem Relation Age of Onset Lung Cancer Mother GI Disease Mother Other - Specify Mother lung disease Colon Cancer Father Stomach Cancer Maternal Grandmother Cancer Maternal Grandmother blood GI Disease Maternal Grandmother Cancer Maternal Grandfather throat Stroke Paternal Grandmother Social History Socioeconomic History Marital status: Spouse name: Not on file Number of children: Not on file Years of education: Not on file Highest education level: Not on file Occupational History Not on file Tobacco Use Smoking status: Current Every Day Smoker Packs/day: 0.50 Types: Cigarettes Smokeless tobacco: Never Used Substance and Sexual Activity Alcohol use: Never Drug use: Yes Types: Marijuana Comment: 3-5 puffs daily; last use 01/31 PM Sexual activity: Not Currently Partners: Female Other Topics Concern Not on file Social History Narrative Not on file Social Determinants of Health Financial Resource Strain: Not on file Food Insecurity: Not on file Transportation Needs: Not on file Physical Activity: Not on file Stress: Not on file Social Connections: Not on file Intimate Partner Violence: Not on file Housing Stability: Not on file Review of Systems: Constitutional: No recent fever, chills Skin: Denies itching, rashes Eyes: Denies complaints of blurred vision ENMT: Denies nasal congestion Endocrine: Denies history of Type I or Type II diabetes mellitus, or thyroid disease CV: Denies CP Respiratory: Denies SOB Gastrointestinal: Denies N/V Genitourinary: Denies dysuria Musculoskeletal: Denies arm/leg weakness Neurological: Denies seizures, LOC Physical Exam Nursing note and vitals reviewed. BP 96/63 (BP Location: Right arm, BP Position: Sitting) Pulse 71 Ht 1.778 m (5' 10) Wt 48.5 kg (107 lb) BMI 15.35 kg/m Smoking Status Current Every Day Smoker Body mass index is 15.35 kg/m. Constitutional: He is alert and oriented. Well developed, without distress. HENT: Normocephalic, atraumatic. Tongue and gingiva are pink without lesions. Eyes: Extraocular motions are normal. Conjunctiva clear. Neck: Normal range of motion. Cardiovascular: No JVD noted. No peripheral edema noted. Pulmonary/Chest: Respirations are full and non labored. Chest wall without deformity. Abdominal: Abdomen soft, protuberant and nondistended. Musculoskeletal: Normal range of motion of all major joints. Neurological: He is alert and oriented. Normal sensation in all extremities noted. Gait steady. Skin: Skin is warm, dry and intact. No rash noted. No cyanosis or jaundice. Nails without clubbing. Psychiatric: Mood, memory, affect and judgment normal. Exam: The posterior cerivcal incision is without surrounding erythema or drainage. The sutures and trial stimulator were removed without difficulty. Diagnosis: Cervicalgia M54.2, Chronic Pain Syndrome G89.4 Assessment & Plan: Ministerio Leal is a 61 y.o. male with a PMH of a previous C4-5, C6-7 ACDF. C5-6 was skipped, who is here today for evaluation of the trial SCS. He has also returned to clinic today for lead removal from recent [place] spinal cord stimulator trial surgery. He is using the device 100% and has been on program A 3.72%, B 0.13%, and C 96.15% of this time. The patient was satisfied with the results of the trial period and would like to proceed with permanent implantation of spinal cord stimulator. We will plan to use 2 leads and RC battery with tip placement at C2. Risks including but not limited to bleeding, pain, infection, failure to improve, and hardware malfunction were discussed with patient. All questions were fully answered to patient's satisfaction and the patient expressed understanding. Surgical consent was obtained today. The patient was provided instructions and reminded to use the chlorhexidine to cleanse the skin for surgery. We will schedule the patient for surgery and pre-operative assessment within the near future. We will also contact their insurance for pre-authorization. They are to contact us with concerns or questions. I have personally spent 30 minutes in face to face and ulr-abxr-kr-face activities for this patienton the day of the visit. Professional time spent includes the following activities, in addition to those noted in the documentation: Chart review, patient education, discussion of symptom management and further treatment options. Patient Instructions: [facility] Evaluation Summary You can shower normally and gradually increase your activities, however do not tub bathe or swim for another 2 weeks. Notify the [facility] ([phone]) if: You are experiencing severe persistent headaches You have bleeding or drainage from your incision If you have an opening of an incision If there is redness, unusual swelling, or you experience a fever greater than 101 degrees Patient Pre-Operative Instructions: NO food or drink after midnight the night before surgery except for enough water to take your medications. (No Candy, Mints and/or Gum). Do NOT wear any hearing aids, jewelry, watches, rings, hairpieces, makeup, glasses or contact lenses with you into your surgery. Shower the night before AND the morning of surgery with the special soap provided to you, called Chlorhexidine. Do NOT shave, or pluck hair from anywhere near the surgical site the day of or the day before surgery. [place] your teeth and rinse your mouth the morning of surgery. Do not take: 2 weeks before surgery, do NOT take Herbal Medication (examples include fish oil, [place]-3, garlic, Glucosamine-Chondroitin, gingko, ginseng, Vitamin E) 7 days prior to surgery, you should NOT take blood thinners, such as Coumadin (warfarin) or platelet inhibitors, including Aspirin or Plavix (clopidogrel) 7-10 croft prior to surgery, you should avoid avoid non-steroidal anti- inflammatory drugs called NSAIDS. Examples include: ibuprofen (Motrin or Advil), naprosyn (Naproxen or Aleve), and arthritis medications such as Celebrex. Do NOT take METFORMIN (Glucophage) the day of, or the day before surgery. Depending on the date of your procedure you will report to [facility] located at [address] [place] [address] OR [facility] 1st Floor Admissions, [address], [place] on 03/01/22 at 7:00am for surgery at 9:00am. (this is a tentative time, you will receive an automated call the day before with instructions and exact times for arrival). Getting Your Skin Ready for Surgery You are scheduled to have a surgery that involves cutting through the skin. Because germs live on everyone's skin, there is a greater chance of getting an infection. To lessen your chance of getting an infection, you need to take special care of your skin before the surgery. Follow These Instructions You may be given or you will need to buy a special soap called 4% chlorhexidine gluconate or CHG. Common brand names for this soap are Hex-A-Clens or Hibiclens. You will need a 4-ounce bottle or larger. There may be a store brand that is less costly. Ask your pharmacist where to find it in the drugstore. It is often with first aid supplies. You may want to call ahead to check that they have the CHG soap in the store. Do not shave near the site where your doctor will be making the cut for your surgery for at least 48 hours before surgery. You need to shower with the CHG soap two times before your surgery: The evening before your surgery. Again the morning of your surgery. Cleaning Your Skin with CHG * Start by washing your hair as usual with your normal shampoo and wash your body with regular soap. Rinse your hair and body very well to remove any shampoo or soap that might be on your skin. Wet a clean washcloth and turn off the shower. Put the CHG soap on the wet clean washcloth. Apply the CHG soap to your whole body from the neck down only. Do not use CHG soap on your face andbe careful not to get the CHG in your eyes or ears. CHG soap does not lather well. Put more CHG on the cloth as you cover more of your body. You should use about 2 ounces or cup of CHG with each shower. Wash your body gently for 5 minutes, paying special attention to the part on your body where the surgery will be done. Be sure to wash the back of your neck, under your arms, your belly button, private parts and your legs down to your toes. Do not scrub too hard. Turn the shower back on and rinse well to get the CHG soap off your body. Pat yourself dry with a clean, dry towel. Do not use any lotions, moisturizer, make-up or other products on the skin near the part of your body that will be cut for surgery. Put on clean clothes. Be sure to repeat the shower the morning of your surgery. *Special Notes If you are to have a cut made into your scalp, you need to wash your hair with CHG each time your shower with CHG. Wash your hair with regular shampoo and rinse it well with water. Put a large amountof the CHG into your palm and then work it through your hair and scalp. It will not lather like your shampoo. Be careful not to get CHG into your eyes or ears. Rinse with clean water. If you do not have a shower or you are not able to get into the shower, do a sponge bath each time.Do not wash your hair unless you are to have a cut into your scalp. First, bathe with a washcloth and regular soap. Rinse with clean water. Then get a clean washcloth and use the CHG to wash your body. Rinse with another clean washcloth and plain water. Dry with a clean towel. [facility] Instructions* Patient Instructions* De Red RN - 02/08/2022 4:30 PM EDT Patient Instructions: [facility] Evaluation Summary You can shower normally and gradually increase your activities, however do not tub bathe or swim for another 2 weeks. Notify the [facility] ([phone]) if: You are experiencing severe persistent headaches You have bleeding or drainage from your incision If you have an opening of an incision If there is redness, unusual swelling, or you experience a fever greater than 101 degrees Patient Pre-Operative Instructions: NO food or drink after midnight the night before surgery except for enough water to take your medications. (No Candy, Mints and/or Gum). Do NOT wear any hearing aids, jewelry, watches, rings, hairpieces, makeup, glasses or contact lenses with you into your surgery. Shower the night before AND the morning of surgery with the special soap provided to you, called Chlorhexidine. Do NOT shave, or pluck hair from anywhere near the surgical site the day of or the day before surgery. [place] your teeth and rinse your mouth the morning of surgery. Do not take: 2 weeks before surgery, do NOT take Herbal Medication (examples include fish oil, [place]-3, garlic, Glucosamine-Chondroitin, gingko, ginseng, Vitamin E) 7 days prior to surgery, you should NOT take blood thinners, such as Coumadin (warfarin) or platelet inhibitors, including Aspirin or Plavix (clopidogrel) 7-10 croft prior to surgery, you should avoid avoid non-steroidal anti- inflammatory drugs called NSAIDS. Examples include: ibuprofen (Motrin or Advil), naprosyn (Naproxen or Aleve), and arthritis medications such as Celebrex. Do NOT take METFORMIN (Glucophage) the day of, or the day before surgery. Depending on the date of your procedure you will report to [facility] located at [address] [place] [address] OR [facility] 1st Floor Admissions, [address] [place] [address] on 03/01/22 at 7:00am for surgery at 9:00am. (this is a tentative time, you will receive an automated call the day before with instructions and exact times for arrival). Getting Your Skin Ready for Surgery You are scheduled to have a surgery that involves cutting through the skin. Because germs live on everyone's skin, there is a greater chance of getting an infection. To lessen your chance of getting an infection, you need to take special care of your skin before the surgery. Follow These Instructions You may be given or you will need to buy a special soap called 4% chlorhexidine gluconate or CHG. Common brand names for this soap are Hex-A-Clens or Hibiclens. You will need a 4-ounce bottle or larger. There may be a store brand that is less costly. Ask your pharmacist where to find it in the drugstore. It is often with first aid supplies. You may want to call ahead to check that they have the CHG soap in the store. Do not shave near the site where your doctor will be making the cut for your surgery for at least 48 hours before surgery. You need to shower with the CHG soap two times before your surgery: The evening before your surgery. Again the morning of your surgery. Cleaning Your Skin with CHG * Start by washing your hair as usual with your normal shampoo and wash your body with regular soap. Rinse your hair and body very well to remove any shampoo or soap that might be on your skin. Wet a clean washcloth and turn off the shower. Put the CHG soap on the wet clean washcloth. Apply the CHG soap to your whole body from the neck down only. Do not use CHG soap on your face andbe careful not to get the CHG in your eyes or ears. CHG soap does not lather well. Put more CHG on the cloth as you cover more of your body. You should use about 2 ounces or cup of CHG with each shower. Wash your body gently for 5 minutes, paying special attention to the part on your body where the surgery will be done. Be sure to wash the back of your neck, under your arms, your belly button, private parts and your legs down to your toes. Do not scrub too hard. Turn the shower back on and rinse well to get the CHG soap off your body. Pat yourself dry with a clean, dry towel. Do not use any lotions, moisturizer, make-up or other products on the skin near the part of your body that will be cut for surgery. Put on clean clothes. Be sure to repeat the shower the morning of your surgery. *Special Notes If you are to have a cut made into your scalp, you need to wash your hair with CHG each time your shower with CHG. Wash your hair with regular shampoo and rinse it well with water. Put a large amountof the CHG into your palm and then work it through your hair and scalp. It will not lather like your shampoo. Be careful not to get CHG into your eyes or ears. Rinse with clean water. If you do not have a shower or you are not able to get into the shower, do a sponge bath each time.Do not wash your hair unless you are to have a cut into your scalp. First, bathe with a washcloth and regular soap. Rinse with clean water. Then get a clean washcloth and use the CHG to wash your body. Rinse with another clean washcloth and plain water. Dry with a clean towel. documented in this [facility]08-12-2022 Nurse Note* Zee Valenzuela RN - 02/01/2022 11:20 AM EDT Pt to X-ray in w/c as ordered w FAMILY COUNSELOR. * Zee Valenzuela RN - 02/01/2022 11:15 AM EDT Discharge instructions and prescriptions reviewed with and given to patient and family; both patient and family verbalized an understanding of instructions. Questions answered. * Zee Valenzuela RN - 02/01/2022 10:55 AM EDT Medtronic rep at bedside. * Taylor Dai RN - 02/01/2022 10:22 AM EDT ISBAR handoff to WEB DATABASE DEVELOPER * Delores eVntura RN - 02/01/2022 9:30 AM EDT ISBAR report given to ACOSTA Tamayo RN. Patient taken to OR by OR staff. All valuables and belongings placed in locker. [facility] Surgical operation note* Zee Valenzuela RN - 02/01/2022 11:20 AM EDT Pt to X-ray in w/c as ordered w FAMILY COUNSELOR. [facility]08-12-2022 Nurse Surgical operation note* Zee Valenzuela RN - 02/01/2022 11:15 AM EDT Discharge instructions and prescriptions reviewed with and given to patient and family; both patient and family verbalized an understanding of instructions. Questions answered. [facility]08-12-2022 Nurse Surgical operation note* Zee Valenzuela RN - 02/01/2022 10:55 AM EDT Medtr[employer] rep at bedside. [facility]08-12-20[facility] Nurse Surgical operation note* Taylor Dai RN - 02/01/2022 10:22 AM EDT ISBAR handoff to WEB DATABASE DEVELOPER [facility]08-12-20[facility] Nurse Surgical operation note* Delores Ventura RN - 02/01/2022 9:30 AM EDT ISBAR report given to ACOSTA Tamayo RN. Patient taken to OR by OR staff. All valuables and belongings placed in locker. 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 Percutaneous placement of first epidural spinal cord stimulator lead. 2. Percutaneous placement of second epidural spinal cord stimulator lead. 3. Intraoperative use of C-arm fluoroscopy for level localization and lead placement 4. Intraoperative complex programming assessment of both devices. SUMMARY OF INDICATIONS: The patient is a 61 y.o. male with a history of chronic intractable pain refractory to aggressive medical/surgical measures. Ultimately the patient was felt to be a candidate for trial of epidural spinal cord stimulation in an attempt to treat the pain leading to the procedure discussed below. I discussed with the patient in great detail the risks, benefits and anticipated outcomes of the procedure, the risks and benefits of the alternatives to the procedure, and the patient consents to the procedure and agrees to proceed. SUMMARY OF PROCEDURE IN DETAIL WITH OPERATIVE FINDINGS: The patient was brought from the holding area to the operating room in stable condition. The patient was placed on the operating table in the prone position on pillows with all bony points padded. After the placement of the appropriate lines, IV antibiotics and sedation were administered. An appropriate timeout was performed. The patient's back was cleanly shaved, degreased, and sterilized using ChloraPrep. Sterile drapes were placed around the perimeter of the field. At this point, then the muscle and skin overlying the upper thoracic spinous processes were anesthetized with 2% Lidocaine with 0.75% Marcaine with 1:100,000 Epinephrine. A 14-gauge needle was then used to cannulate the epidural space using the loss of resistance technique and intraoperative C-arm fluoroscopy. Under fluoroscopic guidance, then a Medtronic 1 x 8 electrode was threaded into the epidural space. The electrode was then guided, under fluoroscopic guidance to the midbody of C2. A second 14-gauge needle was thenused to cannulate the epidural space, again using the loss of resistance technique and the C-arm. Ag ain, under fluoroscopic guidance, a Medtronic 1 x 8 electrode was threaded into the epidural space to the midbody of T2. It was felt that the electrodes were in the optimal position for the trial. Atthis point, the needles were removed under fluoroscopic guidance. The stylets were then removed under fluoroscopic guidance, and the electrodes were secured to the patient's back using silk sutures. The lead tails were then connected to the stimulating device and the whole apparatus was then secured to the patient's back using sterile sponges and tegaderms. At this point, the patient was rotated back to the supine position on the [facility] and transported to the recovery room in stable and satisfactory condition, tolerating the procedure quite well. The spinal cord stimulator was programed in the recovery room to therapeutic settings using various pulse widths, frequencies, and intensities. Marielena Pierre MD [facility]08-12-2022 Note* Brief Op Note - Marielena Pierre MD - 02/01/2022 9:24 AM EDT Ministerio Leal ([id number]) PRE OPERATIVE DIAGNOSIS Cervicalgia [M54.2] Chronic pain syndrome [G89.4] POST OPERATIVE DIAGNOSIS Post-Op Diagnosis Codes: * Cervicalgia [M54.2] * Chronic pain syndrome [G89.4] PROCEDURE PERFORMED Procedure(s) (LRB): Insertion Neurostimulator Electrode Spinal Percutaneous - Medtronic (Midline) Guidance Fluoroscopic Needle Placement (N/A) PRIMARY CLOSURE Yes INTRAOPERATIVE FINDINGS No significant abnormalities SURGEON Surgeon(s) and Role: * Marielena Pierre MD - Primary ANESTHESIOLOGIST Anesthesiologist: Xander Valencia MD SENIOR ADMINISTRATIVE SERVICES OFFICER: Aly Gee APRN-SENIOR ADMINISTRATIVE SERVICES OFFICER SURGICAL STAFF * No surgical staff found * COMPLICATIONS None ESTIMATED BLOOD LOSS Minimal SPECIMENS No specimen sent * No specimens in log * Marielena Pierre MD February 01, 2022 9:24 AM [facility]08-12-2022 Miscellaneous Notes* Op Note - Marielena Pierre MD - 02/01/2022 9:24 AM EDT [place], [place] OPERATIVE REPORT PATIENT NAME: Ministerio Leal DATE OF : 1960 DATE OF ADMISSION: 02/01/2022 DATE OF OPERATION: 02/01/2022 SURGEON: MARIELENA PIERRE MD LOCATION: [facility] OR RESIDENT: None PREOPERATIVE DIAGNOSIS: Cervicalgia [M54.2] Chronic pain syndrome [G89.4] 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 Percutaneous placement of first epidural spinal cord stimulator lead. 2. Percutaneous placement of second epidural spinal cord stimulator lead. 3. Intraoperative use of C-arm fluoroscopy for level localization and lead placement 4. Intraoperative complex programming assessment of both devices. SUMMARY OF INDICATIONS: The patient is a 61 y.o. male with a history of chronic intractable pain refractory to aggressive medical/surgical measures. Ultimately the patient was felt to be a candidate for trial of epidural spinal cord stimulation in an attempt to treat the pain leading to the procedure discussed below. I discussed with the patient in great detail the risks, benefits and anticipated outcomes of the procedure, the risks and benefits of the alternatives to the procedure, and the patient consents to the procedure and agrees to proceed. SUMMARY OF PROCEDURE IN DETAIL WITH OPERATIVE FINDINGS: The patient was brought from the holding area to the operating room in stable condition. The patient was placed on the operating table in the prone position on pillows with all bony points padded. After the placement of the appropriate lines, IV antibiotics and sedation were administered. An appropriate timeout was performed. The patient's back was cleanly shaved, degreased, and sterilized using ChloraPrep. Sterile drapes were placed around the perimeter of the field. At this point, then the muscle and skin overlying the upper thoracic spinous processes were anesthetized with 2% Lidocaine with 0.75% Marcaine with 1:100,000 Epinephrine. A 14-gauge needle was then used to cannulate the epidural space using the loss of resistance technique and intraoperative C-arm fluoroscopy. Under fluoroscopic guidance, then a Medtronic 1 x 8 electrode was threaded into the epidural space. The electrode was then guided, under fluoroscopic guidance to the midbody of C2. A second 14-gauge needle was thenused to cannulate the epidural space, again using the loss of resistance technique and the C-arm. Ag ain, under fluoroscopic guidance, a Medtronic 1 x 8 electrode was threaded into the epidural space to the midbody of T2. It was felt that the electrodes were in the optimal position for the trial. Atthis point, the needles were removed under fluoroscopic guidance. The stylets were then removed under fluoroscopic guidance, and the electrodes were secured to the patient's back using silk sutures. The lead tails were then connected to the stimulating device and the whole apparatus was then secured to the patient's back using sterile sponges and tegaderms. At this point, the patient was rotated back to the supine position on the [facility] and transported to the recovery room in stable and satisfactory condition, tolerating the procedure quite well. The spinal cord stimulator was programed in the recovery room to therapeutic settings using various pulse widths, frequencies, and intensities. Marielena Pierre MD * Brief Op Note - Marielena Pierre MD - 02/01/2022 9:24 AM EDT Ministerio Leal ([id number]) PRE OPERATIVE DIAGNOSIS Cervicalgia [M54.2] Chronic pain syndrome [G89.4] POST OPERATIVE DIAGNOSIS Post-Op Diagnosis Codes: * Cervicalgia [M54.2] * Chronic pain syndrome [G89.4] PROCEDURE PERFORMED Procedure(s) (LRB): Insertion Neurostimulator Electrode Spinal Percutaneous - Medtronic (Midline) Guidance Fluoroscopic Needle Placement (N/A) PRIMARY CLOSURE Yes INTRAOPERATIVE FINDINGS No significant abnormalities SURGEON Surgeon(s) and Role: * Marielena Pierre MD - Primary ANESTHESIOLOGIST Anesthesiologist: Xander Valencia MD SENIOR ADMINISTRATIVE SERVICES OFFICER: Aly Gee APRN-SENIOR ADMINISTRATIVE SERVICES OFFICER SURGICAL STAFF * No surgical staff found * COMPLICATIONS None ESTIMATED BLOOD LOSS Minimal SPECIMENS No specimen sent * No specimens in log * Marielena Pierre MD February 01, 2022 9:24 AM documented in this [facility]08-12-2022 History and physical note* Marielena Pierre MD - 02/01/2022 9:23 AM EDT PERIOPERATIVE SURGICAL HISTORY AND PHYSICAL UPDATE Pre-op Diagnoses: Cervicalgia [M54.2] Chronic pain syndrome [G89.4] Procedure(s): Insertion Neurostimulator Electrode Spinal Percutaneous - Medtronic Guidance Fluoroscopic Needle Placement Surgeon(s): Surgeon(s) and Role: * Marielena Pierre MD - Primary History and Physical Update: Blood pressure 136/72, pulse 54, temperature 97.5 F (36.4 C), temperature source Infrared, resp. rate 16, height 1.778 m (5' 10), weight 48.8 kg (107 lb 9.6 oz), SpO2 100 %. I have reviewed Ministerio Leal's medical, surgical and other pertinent history, and I have updated the medication and allergy information in the computerized patient record. I have examined the patient, reviewed the previous H&P completed on date (01/15/2022) and there are no changes. Today's surgical history and physical update was completed by Marielena Pierre MD, 02/01/2022, 9:23 AM. [facility] Work Phone: [phone]) 474-436508-12-2022 History and physical note* Marielena Pierre MD - 02/01/2022 9:23 AM EDT PERIOPERATIVE SURGICAL HISTORY AND PHYSICAL UPDATE Pre-op Diagnoses: Cervicalgia [M54.2] Chronic pain syndrome [G89.4] Procedure(s): Insertion Neurostimulator Electrode Spinal Percutaneous - [employer] Solution[employer]onic Guidance Fluoroscopic Needle Placement Surgeon(s): Surgeon(s) and Role: * Marielena Pierre MD - Primary History and Physical Update: Blood pressure 136/72, pulse 54, temperature 97.5 F (36.4 C), temperature source Infrared, resp. rate 16, height 1.778 m (5' 10), weight 48.8 kg (107 lb 9.6 oz), SpO2 100 %. I have reviewed Ministerio Leal's medical, surgical and other pertinent history, and I have updated the medication and allergy information in the computerized patient record. I have examined the patient, reviewed the previous H&P completed on date (01/15/2022) and there are no changes. Today's surgical history and physical update was completed by Marielena Pierre MD, 02/01/2022, 9:23 AM. [facility] Discharge instructions* Discharge Instructions* Kristine Lawrence, SOLAR ENERGY SPECIALIST-MAINTENANCE AND REPAIR WORKER - 01/24/2022 12:11 PM EDT APPOINTMENTS & IMPORTANT INFORMATION READ ALL INFORMATION DO NOT RESTART YOUR PLAVIX OR ANY OTHER BLOOD THINNER UNTIL 4 DAYS AFTER YOUR LEAD PULL The stimulator will be programmed and switched on before you leave the hospital. Your surgeon is unable to manage your pain medications on a penitentiary basis. Beginning February 20, 2017 per [place] Law and the [place] Board [place] Pharm[place] no more than 7 days of opioids can be prescribed foradults for acute or post surgical pain. Notify the [facility] ([phone]) if: You are experiencing severe persistent headaches You have bleeding or drainage from your incision If your leads pull out If there is redness, unusual swelling, or you experience a fever greater than 101 degrees INCISION CARE: Do not remove the dressing covering your incision and wires only reinforce if they weaken. Reinforce the dressing with surgical tape if it starts to become loose. You may only take sponge baths until the trial is complete and the leads are removed. If you were given an abdominal binder, wear this at all times. You may remove it only when taking sponge baths. Avoid picking or scratching of the dressing or the incision at all times. Avoid use of antibiotic ointment, alcohol, or hydrogen peroxide over the area of the incisions Avoid swimming or completely submerging the surgical areas in water until incisions are completely healed It is normal for your incision to be slightly swollen and pink. Your incisions should be inspected daily by another person who can get an overall view. Wound inspection, if possible, should begin while you are in the hospital so that significant changes will be more apparent after you go home ACTIVITY: Avoid lifting over 5 pounds during the trial Limited bending, twisting, or turning is advised as this can cause migration of the leads. The overall goal is to avoid any activity that will cause your leads to move and the potential benefit of the stimulation to be lost. Walking is the best exercise after the surgery. It strengthens muscles, increases endurance, relieves stress and most importantly, helps to keep proper blood flow, the bowels moving and keeps fluid from building up in the lungs. Soon after surgery, a patient is encouraged to get up and walk and gradually increase the distance. The sooner a patient becomes active, the sooner he/she will resume their normal routine. You should not drive while under the influence of pain medications. Discuss return to driving at your follow-up appointment. Avoid activities where there is the potential for a fall or physical contact until cleared by your surgeon. DIET: Please resume your home diet. GENERAL INFORMATION: Home appliances, computers, and cell phones DO NOT usually produce enough interference to disrupt your stimulator. Theft detectors and screening devices such as those found in public [employer], department stores, and airport security MAY cause your neurostimulator to switch ON or OFF or cause an uncomfortable sensation. You should always carry your identification card with you and may want to request assistanceto bypass detectors. BLOOD THINNER INSTRUCTIONS: You should not restart any blood thinning medications Aspirin, meloxicam, (Aleve (naproxen), Motrin/Advil (ibuprofen), CO Enzyme Q10, glucosamine, multivitamins, etc) until 4 days after your lead(s) are removed in the clinic. To avoid bleeding do not take these during the trial. You may resume taking aspirin 4 days after your trial lead removal. You may resume taking Plavix or other type of blood thinners 4 days after your trial lead removal. If you are taking Warfarin, please contact the doctor who normally manages your warfarin for instructions on resuming the medication and checking your INR. [facility] Miscellaneous Notes* Telephone Encounter - Beth Garcia - 01/17/2022 11:49 AM EDT Spoke with provider patient needs updated testing Called patient and left VM to call office to schedule testing Also called Elizabeth with pre-op at [facility] advised on POC PH [phone] * Telephone Encounter - Beth Garcia - 01/17/2022 9:17 AM EDT Type of form: Medication hold request for surgery Form received via fax When form is completed, Fax form to [phone] Form has been forwarded to Nurse Patients CHRISTINE and testing Hx . Mesenteric Ischemia With stenting documented in this encounterCleveland [id number] Instructions* Patient Instructions* Kristine Vu RN - 01/15/2022 11:22 AM EDT Patient Medication Instructions: - Only take listed medications on the morning of surgery with a sip of water. Do not take any of your other medications on the morning of surgery. Current Outpatient Medications Medication Sig Instructions aspirin 81 MG Chew Tab chewable tablet 81 mg, Oral, DAILY WITH DINNER Hold 7 days prior to surgery vzgkxowmyg-llkcxlx-wkidqmer-codeine [id number] MG capsule 1 capsule, Oral, DAILY NEEDED Hold 7days prior to surgery clopidogrel 75 MG Tab tablet 75 mg, Oral, DAILY WITH DINNER Hold 7 days prior to surgery hyoscyamine 0.125 MG Tab SL tablet SL 125 mcg, Oral, EVERY 4 HOURS NEEDED Do not take morning ofsurgery ondansetron 8 MG Tab Dispersible tablet 1 tablet, Oral, NEEDED May take morning of surgery if needed pantoprazole [address] DR 40 mg, Oral, DAILY WITH DINNER Take night before surgery rosuvastatin 10 MG Tab tablet 10 mg, Oral, DAILY WITH DINNER Take night before surgery sucralfate 1 g tablet 1 g, Oral Do not take morning of surgery If you use an Inhaler/Inhalers on a daily basis, then use your inhaler on the morning of surgery. - Do NOT take Herbal Medication (including multi-vitamin, fish oil ([place]-3), garlic, Glucosamine -Chondroitin ,gingko, ginseng, Vitamin E, probiotics) vitamins and supplements 2 weeks before surgery. - Do NOT take Excedrin, ibuprofen, Advil, Voltaren (Diclofenac), Motrin, naproxen, or Aleve, Mobic (Meloxicam) for the 7-14 days before surgery. Acetaminophen (Tylenol) is ok to take up until the dayof surgery. Patient Pre-Operative Instructions: Diet Instructions: -NO food or drink after 11 pm the night before surgery except for enough water to take your medications. (No Candy, Mints and/or Gum) -NO Candy, Mints and/or Gum - Do NOT wear any hearing aids, jewelry, watches, rings, hairpieces, makeup, glasses or contact lenses with you into your surgery. - Shower the night before and the morning of surgery. - Do NOT shave, or pluck hair from anywhere near the surgical site one week prior to surgery. - [place] your teeth and rinse your mouth the morning of surgery. - Do NOT bring your dentures or partials with you into surgery. They may be lost. Give them to someone to bring to you after surgery. If you become ill, develop a fever, cough, or any type of infection within 14 days of your scheduled surgery, please call the surgeon's office. You may need to have your surgery moved, as we would not want to put you at risk for complications due to an illness. If you are placed on Antibiotics within 1 week of surgery, please notify our team immediately. To lessen your chance of getting an infection after your surgery, you will need to wash your skin with a special soap called 4% Chlorhexidine Gluconate (CHG) before your surgery. Your nurse has givenyou CHG soap today and written instructions; Getting Your Skin Ready for Surgery. Please review the instructions carefully prior to your surgery. Patient identified as being at high risk for sleep apnea. Patient education material for obstructive sleep apnea given and reviewed. Today we completed a nasal swab culture to check for a specific bacteria called MRSA or MSSA. This is a bacteria that can live in the nose and cause no symptoms or illness. If your culture is positive, we will contact you and send in a prescription for mupirocin to your pharmacy. You will be instructed to rub the ointment into each of your nostrils twice a day for 5 days prior to your surgery. Your nurse will also swab your nose with a betadine swab in the preoperative area on your day of surgery. Please notify the nurse if you have an iodine allergy. AVS/JM Please complete LABS and CHEST XRAY today If you are unable to complete your scheduled testing or appointments made by OPAC please contact OPAC at [phone]. Failure to do so could delay or cancel your surgery. documented in this encounterU [facility] History and physical note* Megan Campo APRN-MAINTENANCE AND REPAIR WORKER - 01/15/2022 10:30 AM EDT Images from the original note were not included. History of Present Illness Mr. Leal is a 61 y.o. male is being evaluated in OPAC due to his medical condition(s) , which increases his risk for perioperative complications. Patient also has a history of HYPERLIPIDEMIA mesenteric ischemia s/p multiple stenting interventions GERD Gastric ulcers. which are all stable on medication.history of a previous C4-5, C6-7 ACDF. C5-6 was skipped. She has continued primarily cervicogenic neck pain radiating down to her interscapular region a primarily along the midline of her neck and up over the top of her shoulders bilaterally with radiation up to the back of her scalp and over the top of her scalp. She has seen several spinal surgeons for 2nd opinions on what to do. She is not very interested in undergoing a large spinal operation. Name: Ministerio Leal Date of Surgery: 02/01/22 03/01/22 Surgeon: Dr Pierre Pre-Op Diagnosis: Cervicalgia Chronic pain syndrome Planned Procedure: Insertion Neurostimulator Electrode Spinal Percutaneous - Medtronic - Midline Do you take Aspirin? Plavix/ASA 2/2 mesenteric ischemia s/p stenting. Will clarify with surgeon/APPnecessary hold times for OAC. Blood pressure 104/66, pulse 64, temperature 98.2 F (36.8 C), resp. rate 16, height 1.778 m (5' 10), weight 50.1 kg (110 lb 6.4 oz), SpO2 98 %. ANESTHESIA/AIRWAY Anesthesia alerts - hx ACDF Personal history of problems related to anesthesia (ex.Malignant Hyperthermia): no Family History of problems related to anesthesia (ex.Malignant Hyperthermia: no Pacer/AICD: no Glaucoma: no Beta Rudolph: no Diabetic Mellitus: no MACHELLE: no Mediport: no STOP-BANG Risk Assessment (3 or more YES responses is high risk) Do you snore - unknown Are you frequently tired during the day? - No Have you been observed gasping or choking while asleep? - No Do you have high blood pressure? - No Age more than 50? - Yes Gender male? - Yes Neck circumference greater than 40 cm? - No Neck Circumference (cm): 36 BMI more then 35? - No Body mass index is 15.84 kg/m . Scoring Criteria: LOW RISK: yes to 0-2 questions INTERMEDIATE RISK: yes to 3-4 questions HIGH RISK: yes to 5-8 questions Mallampati class - 1 TM Distance - 3 FB Oral Opening - 3 FB Teeth - normal dentition for age Cervical range of motion - mildly limited flexion and extension d/t posterior neck pain with radiation to over left shoulder. pain. History of a previous C4- 5, C6-7 ACDF Neck circumference - Neck Circumference (cm): 36 Allergies and adverse drug reactions Allergies Allergen Reactions Omeprazole Headache Other reaction(s): Other: See Comments Headaches Anesthesia/Airway A/P - Does pt meet criteria for liberalized NPO? no. If no, why? Chronic gastric ulcers Patient denies any past complications with anesthesia. CARDIOVASCULAR Cardiovascular History: Denies HTN, CAD, CO, CHF, CVA/TIA, chest pain/pressure, palpitations/arrhythmias, AICD/PPM/stent placement, orthopnea, BURRELL. Functional status - : Moderate: walks up to 5 miles per day, can walk his driveway 1/4 mile at incline with no BURRELL or chest pain. BP Readings from Last 3 Encounters: 01/15/22 104/66 11/26/21 120/57 10/15/21 131/71 1. HYPERLIPIDEMIA: Chronic/Stable; He has been compliant with Crestor. 2. Chronic mesenteric ischemia: S/p stenting in 2016 and angioplasty for in stent stenosis later [id number]. 2018 he underwent stenting SMA 2019 with additional stenting and angioplasty SMA and celiac. Will clarify with surgeon/NORMAN holding time of OAC and if ASA can be continued preoperatively. Will notify vascular team Gio Richardson of surgeon plan and request approval for hold instructions OAC. Denies abdominal pain, n/v. CARDIAC TESTING: EKG due to HYPERLIPIDEMIA Current smoker age nature of procedure ECG: personally reviewed Sinus bradycardia HR [address] interval 158 ms Cardiology A/P: Vascular OVN 01/09/22 Clarify with surgeon hold time of OAC Update 01/15/22 Vascular approval to hold OAC This patient is in a low risk category as calculated using the RCRI with 1 risk factors.RCRI score is 1 points placing his at a 6% cardiac risk in the perioperative setting No further cardiac follow up or testing required at this time PULMONARY Pulmonary history: Social History Tobacco Use Smoking Status Current Every Day Smoker Packs/day: 0.50 Types: Cigarettes Smokeless Tobacco Never Used 1. Current smoker: Stable; smoking 1/2 PPD-3/4 PPD. No home oxygen. No inhaler use at home. Denies frequent lung infections. Denies exacerbations > 6 months. Denies any ill symptoms today on exam.Denies history prolonged ventilation/extubation. Lungs CTA. Discussed with patient cessation of smoking and illicit drug use prior to surgery and risk/complications associated with upcoming surgery. Patient verbalizes understanding. Denies SOB, asthma, COPD, recent fevers/chills. Pulmonary Testing: CXR 01/15/22 Pulmonary A/P - Denies history of lung disease or recent respiratory infections. No further pulmonary testing necessary. SUBSTANCE ABUSE Social History Substance and Sexual Activity Alcohol Use Never Social History Substance and Sexual Activity Drug Use Yes Types: Marijuana Comment: 3-5 puffs daily Substance Abuse A/P - Denies regular/DAILY consumption of alcohol. Encouraged to avoid ETOH 5 days prior to surgery. Smokes marijuana a few times per week for sleep. Encouraged to avoid THC use morning of surgery. CLOTTING/BLEEDING History of DVT/PE - no Are you a Jehovah Witness? - no In case of surgeons plan or unforseen emergency, are you okay with receiving blood products? - yes Clotting Bleeding A/P - Denies history of clotting or bleeding disorders. Recommend standard DVT/PE prophylaxis postoperatively. DIABETES Diabetes A/P - Denies DM No results found for: HGBA1C ADDITIONAL DIAGNOSES OF CONCERN 1. GERD: Chronic gastric ulcers - last diagnosed with acute ulses 08/2021 taht required to be cauterized. Reports he suffered an esophageal tear at this time. Currently denies abdominal pain, trouble swallowing, N/V. Managed on Pantoprazole 40 mg daily. Will request [facility] discharge summary. MEDICATIONS Current Outpatient Medications Medication Sig aspirin 81 MG Chew Tab chewable tablet Chew 81 mg Daily (with dinner). jjwkbbeuxc-jibavds-tcgbjdbs-codeine 14-051-09-30 MG capsule Take 1 capsule by mouth daily as needed. clopidogrel 75 MG Tab tablet Take 75 mg by mouth Daily (with dinner). hyoscyamine 0.125 MG Tab SL tablet SL Take 125 mcg by mouth every 4 hours as needed for Cramping. ondansetron 8 MG Tab Dispersible tablet Take 1 tablet by mouth as needed for Nausea / Vomiting. pantoprazole [address] tablet DR Take 40 mg by mouth daily with dinner. rosuvastatin 10 MG Tab tablet Take 10 mg by mouth daily with dinner. sucralfate 1 g tablet Take 1 g by mouth. Medication A/P - Instructions for preoperative medications given to the patient in AVS. LABS Orders Placed This Encounter SCREEN: MRSA/MSSA XR CHEST PA AND LATERAL PT,INR,PTT NICOTINE SCREEN URINE CBC, EDIF, PLATELET PROTIME-INR PTT WITH MIXING STUDY CHEM 6 (LYTES, BUN CREA) PREPARE TO TRANSFUSE OR RED BLOOD CELLS: 2 Units Type and Cross -Preadmission sucralfate 1 g tablet hyoscyamine 0.125 MG Tab SL tablet SL URINALYSIS REFLEX TO CULTURE Pulse Ox CT ECG, CLINIC PERFORMED Lab A/P - Labs ordered per surgeon preference Anesthesia/Medical Assessment/plan: Reviewed patient's history, assessment & ECG findings with Anesthesiologist Dr. Kan Campo, SOLAR ENERGY SPECIALIST-MAINTENANCE AND REPAIR WORKER [facility] [address] [facility] Review of Systems Constitutional: Negative for chills, fatigue and fever. HENT: Negative for congestion, dental problem, ear pain, hearing loss, rhinorrhea, sneezing, sore throat and trouble swallowing. Eyes: Negative for pain. Respiratory: Negative for apnea, cough, choking, chest tightness, shortness of breath and wheezing. Cardiovascular: Negative for chest pain, palpitations and leg swelling. Gastrointestinal: Positive for diarrhea ( Frequent BM's 8X/day). Negative for abdominal pain, constipation, nausea and vomiting. Endocrine: Negative for polyuria. Genitourinary: Negative for difficulty urinating, dysuria, frequency, hematuria and urgency. Musculoskeletal: Positive for neck pain. Negative for arthralgias, back pain, gait problem, myalgias and neck stiffness. Skin: Negative for rash and wound. Allergic/Immunologic: Negative for food allergies. Neurological: Negative for dizziness, seizures, syncope, weakness and light-headedness. Hematological: Does not bruise/bleed easily. Psychiatric/Behavioral: Negative for sleep disturbance. The patient is not nervous/anxious. Physical Exam Constitutional: General: He is not in acute distress. Appearance: Normal appearance. He is not ill-appearing, toxic-appearing or diaphoretic. Comments: Thin/malnourished appearance HENT: Head: Normocephalic and atraumatic. Right Ear: External ear normal. Left Ear: External ear normal. Nose: Nose normal. No congestion or rhinorrhea. Mouth/Throat: Mouth: Mucous membranes are moist. Pharynx: Oropharynx is clear. No oropharyngeal exudate or posterior oropharyngeal erythema. Eyes: General: No scleral icterus. Right eye: No discharge. Left eye: No discharge. Conjunctiva/sclera: Conjunctivae normal. Neck: Vascular: No carotid bruit. Cardiovascular: Rate and Rhythm: Normal rate and regular rhythm. Pulses: Normal pulses. Heart sounds: Normal heart sounds. No murmur heard. Pulmonary: Effort: Pulmonary effort is normal. No respiratory distress. Breath sounds: No stridor. No wheezing, rhonchi or rales. Chest: Chest wall: No tenderness. Abdominal: General: Abdomen is flat. Bowel sounds are normal. There is no distension. Tenderness: There is no abdominal tenderness. Musculoskeletal: General: No swelling. Normal range of motion. Cervical back: Normal range of motion. No rigidity. No muscular tenderness. Right lower leg: No edema. Left lower leg: No edema. Skin: General: Skin is warm and dry. Capillary Refill: Capillary refill takes less than 2 seconds. Coloration: Skin is not jaundiced or pale. Findings: No bruising, erythema, lesion or rash. Neurological: General: No focal deficit present. Mental Status: He is alert. Mental status is at baseline. Psychiatric: Mood and Affect: Mood normal. Behavior: Behavior normal. Thought Content: Thought content normal. Past Medical History: Diagnosis Date Arthritis Duodenal ulcer Migraine Other abnormal glucose mesentaric eschemia, celiac stent Vascular disease Past Surgical History: Procedure Laterality Date CERVICAL FUSION COLONOSCOPY DIAGNOSTIC 4 polyps, 1 precancerous OTHER SURGICAL stent in celiac and superior mesenteric artery REMOVAL BILIARY DUCT/GALLBLADDER CALCULI/DEBRIS PERCUTANEOUS W/ IMAGE Patient Care Team: Hitesh Dai MD as PCP - General (Family Medicine) Family History Problem Relation Age of Onset Lung Cancer Mother GI Disease Mother Other - Specify Mother lung disease Colon Cancer Father Stomach Cancer Maternal Grandmother Cancer Maternal Grandmother blood GI Disease Maternal Grandmother Cancer Maternal Grandfather throat Stroke Paternal Grandmother Social History Socioeconomic History Marital status: Tobacco Use Smoking status: Current Every Day Smoker Packs/day: 0.50 Types: Cigarettes Smokeless tobacco: Never Used Substance and Sexual Activity Alcohol use: Never Drug use: Yes Types: Marijuana Comment: 3-5 puffs daily Sexual activity: Not Currently Partners: Female [facility]07-26-2022 History and physical note* TYLER Poole - 01/15/2022 10:30 AM EDT Images from the original note were not included. History of Present Illness Mr. Leal is a 61 y.o. male is being evaluated in OPAC due to his medical condition(s) , which increases his risk for perioperative complications. Patient also has a history of HYPERLIPIDEMIA mesenteric ischemia s/p multiple stenting interventions GERD Gastric ulcers. which are all stable on medication.history of a previous C4-5, C6-7 ACDF. C5-6 was skipped. She has continued primarily cervicogenic neck pain radiating down to her interscapular region a primarily along the midline of her neck and up over the top of her shoulders bilaterally with radiation up to the back of her scalp and over the top of her scalp. She has seen several spinal surgeons for 2nd opinions on what to do. She is not very interested in undergoing a large spinal operation. Name: Ministerio Leal Date of Surgery: 02/01/22 03/01/22 Surgeon: Dr Pierre Pre-Op Diagnosis: Cervicalgia Chronic pain syndrome Planned Procedure: Insertion Neurostimulator Electrode Spinal Percutaneous - Medtronic - Midline Do you take Aspirin? Plavix/ASA 2/2 mesenteric ischemia s/p stenting. Will clarify with surgeon/APPnecessary hold times for OAC. Blood pressure 104/66, pulse 64, temperature 98.2 F (36.8 C), resp. rate 16, height 1.778 m (5' 10), weight 50.1 kg (110 lb 6.4 oz), SpO2 98 %. ANESTHESIA/AIRWAY Anesthesia alerts - hx ACDF Personal history of problems related to anesthesia (ex.Malignant Hyperthermia): no Family History of problems related to anesthesia (ex.Malignant Hyperthermia: no Pacer/AICD: no Glaucoma: no Beta Rudolph: no Diabetic Mellitus: no MACHELLE: no Mediport: no STOP-BANG Risk Assessment (3 or more YES responses is high risk) Do you snore - unknown Are you frequently tired during the day? - No Have you been observed gasping or choking while asleep? - No Do you have high blood pressure? - No Age more than 50? - Yes Gender male? - Yes Neck circumference greater than 40 cm? - No Neck Circumference (cm): 36 BMI more then 35? - No Body mass index is 15.84 kg/m . Scoring Criteria: LOW RISK: yes to 0-2 questions INTERMEDIATE RISK: yes to 3-4 questions HIGH RISK: yes to 5-8 questions Mallampati class - 1 TM Distance - 3 FB Oral Opening - 3 FB Teeth - normal dentition for age Cervical range of motion - mildly limited flexion and extension d/t posterior neck pain with radiation to over left shoulder. pain. History of a previous C4- 5, C6-7 ACDF Neck circumference - Neck Circumference (cm): 36 Allergies and adverse drug reactions Allergies Allergen Reactions Omeprazole Headache Other reaction(s): Other: See Comments Headaches Anesthesia/Airway A/P - Does pt meet criteria for liberalized NPO? no. If no, why? Chronic gastric ulcers Patient denies any past complications with anesthesia. CARDIOVASCULAR Cardiovascular History: Denies HTN, CAD, CO, CHF, CVA/TIA, chest pain/pressure, palpitations/arrhythmias, AICD/PPM/stent placement, orthopnea, BURRELL. Functional status - : Moderate: walks up to 5 miles per day, can walk his driveway 1/4 mile at incline with no BURRELL or chest pain. BP Readings from Last 3 Encounters: 01/15/22 104/66 11/26/21 120/57 10/15/21 131/71 1. HYPERLIPIDEMIA: Chronic/Stable; He has been compliant with Crestor. 2. Chronic mesenteric ischemia: S/p stenting in 2016 and angioplasty for in stent stenosis later [id number]. 2018 he underwent stenting SMA 2019 with additional stenting and angioplasty SMA and celiac. Will clarify with surgeon/NORMAN holding time of OAC and if ASA can be continued preoperatively. Will notify vascular team Gio Richardson of surgeon plan and request approval for hold instructions OAC. Denies abdominal pain, n/v. CARDIAC TESTING: EKG due to HYPERLIPIDEMIA Current smoker age nature of procedure ECG: personally reviewed Sinus bradycardia HR [address] interval 158 ms Cardiology A/P: Vascular OVN 01/09/22 Clarify with surgeon hold time of OAC Update 01/15/22 Vascular approval to hold OAC This patient is in a low risk category as calculated using the RCRI with 1 risk factors.RCRI score is 1 points placing his at a 6% cardiac risk in the perioperative setting No further cardiac follow up or testing required at this time PULMONARY Pulmonary history: Social History Tobacco Use Smoking Status Current Every Day Smoker Packs/day: 0.50 Types: Cigarettes Smokeless Tobacco Never Used 1. Current smoker: Stable; smoking 1/2 PPD-3/4 PPD. No home oxygen. No inhaler use at home. Denies frequent lung infections. Denies exacerbations > 6 months. Denies any ill symptoms today on exam.Denies history prolonged ventilation/extubation. Lungs CTA. Discussed with patient cessation of smoking and illicit drug use prior to surgery and risk/complications associated with upcoming surgery. Patient verbalizes understanding. Denies SOB, asthma, COPD, recent fevers/chills. Pulmonary Testing: CXR 01/15/22 Pulmonary A/P - Denies history of lung disease or recent respiratory infections. No further pulmonary testing necessary. SUBSTANCE ABUSE Social History Substance and Sexual Activity Alcohol Use Never Social History Substance and Sexual Activity Drug Use Yes Types: Marijuana Comment: 3-5 puffs daily Substance Abuse A/P - Denies regular/DAILY consumption of alcohol. Encouraged to avoid ETOH 5 days prior to surgery. Smokes marijuana a few times per week for sleep. Encouraged to avoid THC use morning of surgery. CLOTTING/BLEEDING History of DVT/PE - no Are you a Jehovah Witness? - no In case of surgeons plan or unforseen emergency, are you okay with receiving blood products? - yes Clotting Bleeding A/P - Denies history of clotting or bleeding disorders. Recommend standard DVT/PE prophylaxis postoperatively. DIABETES Diabetes A/P - Denies DM No results found for: HGBA1C ADDITIONAL DIAGNOSES OF CONCERN 1. GERD: Chronic gastric ulcers - last diagnosed with acute ulses 08/2021 taht required to be cauterized. Reports he suffered an esophageal tear at this time. Currently denies abdominal pain, trouble swallowing, N/V. Managed on Pantoprazole 40 mg daily. Will request [facility] discharge summary. MEDICATIONS Current Outpatient Medications Medication Sig aspirin 81 MG Chew Tab chewable tablet Chew 81 mg Daily (with dinner). pshulfyhgb-ivoqugb-zthwtssh-codeine 42-255-66-30 MG capsule Take 1 capsule by mouth daily as needed. clopidogrel 75 MG Tab tablet Take 75 mg by mouth Daily (with dinner). hyoscyamine 0.125 MG Tab SL tablet SL Take 125 mcg by mouth every 4 hours as needed for Cramping. ondansetron 8 MG Tab Dispersible tablet Take 1 tablet by mouth as needed for Nausea / Vomiting. pantoprazole [address] tablet DR Take 40 mg by mouth daily with dinner. rosuvastatin 10 MG Tab tablet Take 10 mg by mouth daily with dinner. sucralfate 1 g tablet Take 1 g by mouth. Medication A/P - Instructions for preoperative medications given to the patient in AVS. LABS Orders Placed This Encounter SCREEN: MRSA/MSSA XR CHEST PA AND LATERAL PT,INR,PTT NICOTINE SCREEN URINE CBC, EDIF, PLATELET PROTIME-INR PTT WITH MIXING STUDY CHEM 6 (LYTES, BUN CREA) PREPARE TO TRANSFUSE OR RED BLOOD CELLS: 2 Units Type and Cross -Preadmission sucralfate 1 g tablet hyoscyamine 0.125 MG Tab SL tablet SL URINALYSIS REFLEX TO CULTURE Pulse Ox CT ECG, CLINIC PERFORMED Lab A/P - Labs ordered per surgeon preference Anesthesia/Medical Assessment/plan: Reviewed patient's history, assessment & ECG findings with Anesthesiologist Dr. Kan Campo, SOLAR ENERGY SPECIALIST-MAINTENANCE AND REPAIR WORKER [facility] [place] [address] [facility] Review of Systems Constitutional: Negative for chills, fatigue and fever. HENT: Negative for congestion, dental problem, ear pain, hearing loss, rhinorrhea, sneezing, sore throat and trouble swallowing. Eyes: Negative for pain. Respiratory: Negative for apnea, cough, choking, chest tightness, shortness of breath and wheezing. Cardiovascular: Negative for chest pain, palpitations and leg swelling. Gastrointestinal: Positive for diarrhea ( Frequent BM's 8X/day). Negative for abdominal pain, constipation, nausea and vomiting. Endocrine: Negative for polyuria. Genitourinary: Negative for difficulty urinating, dysuria, frequency, hematuria and urgency. Musculoskeletal: Positive for neck pain. Negative for arthralgias, back pain, gait problem, myalgias and neck stiffness. Skin: Negative for rash and wound. Allergic/Immunologic: Negative for food allergies. Neurological: Negative for dizziness, seizures, syncope, weakness and light-headedness. Hematological: Does not bruise/bleed easily. Psychiatric/Behavioral: Negative for sleep disturbance. The patient is not nervous/anxious. Physical Exam Constitutional: General: He is not in acute distress. Appearance: Normal appearance. He is not ill-appearing, toxic-appearing or diaphoretic. Comments: Thin/malnourished appearance HENT: Head: Normocephalic and atraumatic. Right Ear: External ear normal. Left Ear: External ear normal. Nose: Nose normal. No congestion or rhinorrhea. Mouth/Throat: Mouth: Mucous membranes are moist. Pharynx: Oropharynx is clear. No oropharyngeal exudate or posterior oropharyngeal erythema. Eyes: General: No scleral icterus. Right eye: No discharge. Left eye: No discharge. Conjunctiva/sclera: Conjunctivae normal. Neck: Vascular: No carotid bruit. Cardiovascular: Rate and Rhythm: Normal rate and regular rhythm. Pulses: Normal pulses. Heart sounds: Normal heart sounds. No murmur heard. Pulmonary: Effort: Pulmonary effort is normal. No respiratory distress. Breath sounds: No stridor. No wheezing, rhonchi or rales. Chest: Chest wall: No tenderness. Abdominal: General: Abdomen is flat. Bowel sounds are normal. There is no distension. Tenderness: There is no abdominal tenderness. Musculoskeletal: General: No swelling. Normal range of motion. Cervical back: Normal range of motion. No rigidity. No muscular tenderness. Right lower leg: No edema. Left lower leg: No edema. Skin: General: Skin is warm and dry. Capillary Refill: Capillary refill takes less than 2 seconds. Coloration: Skin is not jaundiced or pale. Findings: No bruising, erythema, lesion or rash. Neurological: General: No focal deficit present. Mental Status: He is alert. Mental status is at baseline. Psychiatric: Mood and Affect: Mood normal. Behavior: Behavior normal. Thought Content: Thought content normal. Past Medical History: Diagnosis Date Arthritis Duodenal ulcer Migraine Other abnormal glucose mesentaric eschemia, celiac stent Vascular disease Past Surgical History: Procedure Laterality Date CERVICAL FUSION COLONOSCOPY DIAGNOSTIC 4 polyps, 1 precancerous OTHER SURGICAL stent in celiac and superior mesenteric artery REMOVAL BILIARY DUCT/GALLBLADDER CALCULI/DEBRIS PERCUTANEOUS W/ IMAGE Patient Care Team: Hitesh Dai MD as PCP - General (Family Medicine) Family History Problem Relation Age of Onset Lung Cancer Mother GI Disease Mother Other - Specify Mother lung disease Colon Cancer Father Stomach Cancer Maternal Grandmother Cancer Maternal Grandmother blood GI Disease Maternal Grandmother Cancer Maternal Grandfather throat Stroke Paternal Grandmother Social History Socioeconomic History Marital status: Tobacco Use Smoking status: Current Every Day Smoker Packs/day: 0.50 Types: Cigarettes Smokeless tobacco: Never Used Substance and Sexual Activity Alcohol use: Never Drug use: Yes Types: Marijuana Comment: 3-5 puffs daily Sexual activity: Not Currently Partners: Female [facility] History of Present illness Narrative* Olivia Omer MD - 01/15/2022 10:30 AM EDT 02/01/22 Insertion Neurostimulator Electrode Spinal Percutaneous OSUE 03/01/22 Insertion Neurostimulator Electrode Spinal Percutaneous OSUE DR Castillo note states;severe mechanical neck pain and imaging shows very severe facet arthropathy withovergrowth and edema of the facets on the right-sided C3-4 and C4-5. documented in this [facility] History of Present illness Narrative* Marielena Pierre MD - 11/26/2021 9:30 AM EDT Neurosurgery History and Physical Clinic Note Date: 11/26/2021 Patient: Ministerio Leal Date of : 1960 Visit Date: 11/26/21 Visit Type: New Patient Chief Complaint Chief Complaint Patient presents with New Patient 61 year old here to discuss surgery. History of Present Illness Ministerio Leal is a 61 y.o. male who presents with a history of a previous C4-5, C6-7 ACDF. C5-6 wasskipped. She has continued primarily cervicogenic neck pain radiating down to her interscapular region a primarily along the midline of her neck and up over the top of her shoulders bilaterally with radiation up to the back of her scalp and over the top of her scalp. She has seen several spinal surgeons for 2nd opinions on what to do. She is not very interested in undergoing a large spinal operation. As such she was referred to me for discussion for alternative options. She has undergone conservative therapy including medication management as well as injections and ablation is a. She said theablation work for approximately 6 days and afterward she had recurrence of her pain does more severe than normal. She said this made her back spasms to the point were she felt her back had scoliosis. Past Medical/Surgical History Past Medical History: Diagnosis Date Arthritis Duodenal ulcer Migraine Other abnormal glucose mesentaric eschemia, celiac stent Vascular disease Past Surgical History: Procedure Laterality Date CERVICAL FUSION COLONOSCOPY DIAGNOSTIC 4 polyps, 1 precancerous OTHER SURGICAL stent in celiac and superior mesenteric artery REMOVAL BILIARY DUCT/GALLBLADDER CALCULI/DEBRIS PERCUTANEOUS W/ IMAGE Allergies: Allergies Allergen Reactions Omeprazole Other reaction(s): Other: See Comments Headaches Social History: Social History Socioeconomic History Marital status: Spouse name: Not on file Number of children: Not on file Years of education: Not on file Highest education level: Not on file Occupational History Not on file Tobacco Use Smoking status: Current Every Day Smoker Packs/day: 0.50 Types: Cigarettes Smokeless tobacco: Never Used Substance and Sexual Activity Alcohol use: Never Drug use: Yes Types: Marijuana Comment: 3-5 puffs daily Sexual activity: Not Currently Partners: Female Other Topics Concern Not on file Social History Narrative Not on file Social Determinants of Health Financial Resource Strain: Not on file Food Insecurity: Not on file Transportation Needs: Not on file Physical Activity: Not on file Stress: Not on file Social Connections: Not on file Intimate Partner Violence: Not on file Housing Stability: Not on file Review of Systems: O/w 13 point ROS is negative other than HPI Physical Exam: General: No acute distress. Alert and Oriented x3 HENT: Normocephalic, without obvious abnormality, atraumatic Musculoskeletal: No obvious contractures, deformities Cranial Nerves: II-XII intact bilaterally Motor: 5/5 strength Sensory: Intact to light touch Imaging: Previous imaging reviewed, no new results for this encounter. Assessment: 61 y.o. 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 Ineffective medical management including interventional therapies. Plan: I discussed with the patient the options moving forward. The 3 options that I see from further interventional standpoint would be a trial of spinal cord stimulation therapy, a trial of peripheral nerve therapy consisting of bilateral occipital stimulation, and lastly an intrathecal drug delivery pump. I discussed all the options with the patient. The simplest route would be to start with a trial of spinal epidural spinal cord stimulation therapy to see if this helps her pain. We did discuss 0 cervicogenic pain sometimes can be challenging with spinal cord stimulation therapy but we have had success with this in the past. If this is not successful she can weigh her options of trying to proceed with a trial of occipital nerve stimulation therapy verses finding a pain managing physician who would be willing to consider intrathecal drug delivery therapy as an option for her. Ultimately the patient like to proceed. I discussed the risks, benefits, alternatives, potential complications of epidural spinal cord stimulation therapy. The patient and questions answered them to her satisfaction. Ultimately she would like to proceed. We will schedule her accordingly in follow-up the time of surgery. I spent approximately 3- minutes of time with the patient with over 50% of the time spent in counseling/coordination of the issues including the assessment and plan. Patient understands and agrees with the plan. Marielena Pierre MD *The above dictation was composed using medical dictation software. Although I have reviewed this dictation for accuracy, certain words and phrases may not be entered as intended. documented in this encounterNor[facility]06-06-2022 Instructions* Patient Instructions* Kristine Gray Melinda, SOLAR ENERGY SPECIALIST-MAINTENANCE AND REPAIR WORKER - 11/26/2021 9:20 AM EDT Images from the original note were not included. Patient Instructions: [facility] Evaluation Summary If you are a candidate for neuromodulation you will be required to have a neuropsychological evaluation prior to the procedure. We will plan for surgery after your neuropsychological evaluation. If you are a candidate for neuromodulation we will plan for surgery. Surgery scheduling will contact you with the confirmed date and time for surgery. Your surgical procedure will require you to havepreoperative testing, which you will be coordinated by the bottle label inspector as well. Nothing to eat or drink past midnight the night before surgery. You may take your approved medications with a small amount of water the morning of surgery. If you have questions please contact our office at [phone]. Patient Pre-Operative Instructions: NO food or drink after midnight the night before surgery except for enough water to take your medications. (No Candy, Mints and/or Gum). Do NOT wear any hearing aids, jewelry, watches, rings, hairpieces, makeup, glasses or contact lenses with you into your surgery. Shower the night before AND the morning of surgery with the special soap provided to you, called Chlorhexidine. Do NOT shave, or pluck hair from anywhere near the surgical site the day of or the day before surgery. [place] your teeth and rinse your mouth the morning of surgery. Do not take: 2 weeks before surgery, do NOT take Herbal Medication (examples include fish oil, [place]-3, garlic, Glucosamine-Chondroitin, gingko, ginseng, Vitamin E) 7 days prior to surgery, you should NOT take blood thinners, such as Coumadin (warfarin) or platelet inhibitors, including Aspirin or Plavix (clopidogrel) 7-10 croft prior to surgery, you should avoid avoid non-steroidal anti- inflammatory drugs called NSAIDS. Examples include: ibuprofen (Motrin or Advil), naprosyn (Naproxen or Aleve), and arthritis medications such as Celebrex. Do NOT take METFORMIN (Glucophage) the day of, or the day before surgery. Report to [facility] 1st Floor Admissions, [address] [facility] on TBD at [facility] for surgery at [facility]. (this is a tentative time, you will receive an automated call the day before with instructions and exact times for arrival). DO NOT USE ANY ILLICIT DRUGS BETWEEN NOW AND THE DAY OF YOUR SURGERY. LIMIT YOUR ALCOHOL USE BETWEEN NOW AND THE DAY OF SURGERY. Please hold any marijuana usage to 24 hrs prior to your scheduled surgery date. Illegal Drugs (suchs as; cocaine, heroine,crystal meth) and Alcohol, can alter the way anesthesia effects patients. In addition, smoking illicit drugs, canalter the way a patient returns to breathing on their own after being on a ventilator. Illegal drugs can change the effectiveness of prescription pain medications, requiring different dosages and can have interactions with anesthesia drugs, causing serious complications. Use of illicit drugs prior to your scheduled surgery date may be a cause for cancellation of your surgery. If you become ill, develop a fever, cough, or any type of infection within 14 days of your scheduled surgery, please call the surgeon's office. You may need to have your surgery moved, as we would not want to put you at risk for complications due to an illness. Learning About Spinal Cord Stimulation What is it? Spinal cord stimulation is a treatment for chronic pain. It uses a mild electrical current. It's mostly used for low back pain, pain in the arms and legs, and pain in the trunk. A small generator is placed in your body. It sends electrical pulses to a tiny electrode near your spinal cord. You may feel a tingle from the pulses. The pulses can help relieve pain. Why is it done? This treatment may be done for people with severe, chronic pain who have: Had back surgery that didn't help their pain. Pain from a nerve problem. Pain that does not respond to other treatments. This includes complex regional pain syndrome. Pain from severe peripheral vascular disease that the doctor feels cannot be treated with surgery. If this treatment is right for you, you may have a spinal cord stimulator implanted for long-term use. How is it done? Spinal cord stimulation is done in two steps. Your doctor will first insert a temporary electrode through your skin. It will stay there for about a week. This first step is to see if the treatment will help your pain. You and your doctor will test different stimulation settings and programs. Your doctor will ask youhow you feel at different settings. Let your doctor know if you feel any discomfort. You'll use a wireless remote control or other controller. If the test works, you may get a permanent stimulator. The electrode is implanted in your spine. A lead wire runs from your spine to a small generator. It can be under the skin in your lower or upperback, buttock area, chest, or belly area. You may get medicine that relaxes you or puts you in a light sleep. Some people may need to have general anesthesia. The areas being worked on will be numb. After the stimulator is placed, your doctor will show you how to care for the areas where you had surgery. What are the different types of spinal cord stimulators? This treatment targets the area of your body where you feel pain. There are different types of devices you may get. The devices can have different power sources. Some generators have batteries that need to be replaced every 3 to 5 years. Some last longer. Some have rechargeable batteries. A special wireless gusset folder may come with your system. These last much longer. But they still may need to be replaced at some point. Some stimulators may have a power source outside your body. These are more often for short-term use. The leads that carry the electrical current can be placed at different spots along the spinal cord. You will have a controller to program the device. Your doctor will show you how to use it. What can you expect after getting a spinal cord stimulator? You may have a spinal cord stimulator for many years. It can help you live with much less pain, butyou will have to learn how to use it. After the surgery, you and your doctor can figure out the best pulse strength. It may need to be adjusted a few times. Your doctor will show you how to use the stimulator at home. You may feel a tingle or some warmth while you use electrical nerve stimulation. Your doctor will show you how to be safe with a stimulator. This may include trying not to lift, bend, stretch, or twist too much. Being too active could move or disconnect the leads. Light exercise,such as walking, is good. After a few weeks, you will be able to move more. You may get important instructions on driving andair travel, as well. Your device may set off metal detectors. And anti-theft devices in stores can cause a burst of stimulation. Be sure to tell other doctors about your stimulator before you have any other procedures or scans. Some scans and procedures can cause serious problems with your device. What are the risks? There are some risks to spinal cord stimulation. For example: Placing the stimulator requires surgery. Surgery has risks, such as the risk of bleeding, infection, or fluid buildup at the surgical site. Anesthesia also has some risks. The stimulator device and wires can fail. The wires may also move, so the stimulator doesn't work as well as it should. The tingling or warm feeling from the electrical current may bother you. You may need the device removed if it bothers you too much. If you build up a tolerance to the stimulation, your doctor may need to change the amount of current or placement of the wires. Your pain may come back, and the device may no longer work for you. Where can you learn more? Go to [email or web address]. Enter S115 in the search box to learn more about 'Learning About Spinal Cord Stimulation.' Interested in seeing a video go to [email or web address] to see all video content. Current as of: June 04, 2021 Content Version: 13.3 [employer]. Care instructions adapted under license by your healthcare professional. If you have questions about a medical condition or this instruction, always ask your healthcare professional. [employer] disclaims any warranty or liability for your use of this information. * Attachments The following attachments cannot be sent through Care Everywhere. * Spinal Cord Stimulation: General Info (Guatemalan) documented in this encounterNorwalk [facility]04-25-2022 History of Present illness Narrative* Marisa Castillo MD - 10/15/2021 2:00 PM EDT History & Physical Name: Ministerio Leal : 1960 Age: 61 y.o. SUBJECTIVE: Chief Complaint / Reason for Visit: Neck pain HPI: This is a pleasant 61-year-old gentleman who several years ago underwent a C4-5 and a C6-7 skip level ACDF. Within the past 2-3 years he has had increasingly severe axial neck pain. He states that the pain is present along the paraspinal muscles and starts in the middle of his neck and radiates up and down the spine. He also reports of significant focal pain that is mechanical in nature in the upper cervical spine that is worse when he sits upright whereas to support his head during standing. Occasionally the pain is relieved when he lays down but can shift to the opposite side. He has had epidural injections as well as facet an RFA ablation says which have provided some benefit but not lasting pain relief. He denies any issues with his hands, gait, strength or dexterity. Review of Systems: 14-point review of systems negative except for findings noted in HPI HISTORY: ALLERGIES: Omeprazole MEDICATIONS: Current Outpatient Medications Medication Sig Last Dose Start Date End Date Authorizing Provider aspirin 81 MG Chew Tab chewable tablet 81 mg, Oral, DAILY WITH DINNER 02/14/17 Historical Provider clopidogrel 75 MG Tab tablet 75 mg, Oral, DAILY WITH DINNER 02/14/17 Historical Provider dicyclomine 10 MG Cap capsule 10 mg, Oral, NEEDED Historical Provider hyoscyamine (LEVSIN) 0.125 MG Tab 125 mcg, Oral, EVERY 4 HOURS NEEDED 05/25/19 Ricardo Ybarra MD ondansetron 8 MG Tab Dispersible tablet 1 tablet, Oral, NEEDED 05/03/19 Historical Provider pantoprazole [address] tablet DR 40 mg, Oral, DAILY 08/26/18 Historical Provider rosuvastatin 10 MG Tab tablet 10 mg, Oral, DAILY 06/29/17 Historical Provider PAST MEDICAL HISTORY: Past Medical History: Diagnosis Date Duodenal ulcer Other abnormal glucose mesentaric eschemia, celiac stent PAST SURGICAL HISTORY: Past Surgical History: Procedure Laterality Date CERVICAL FUSION COLONOSCOPY DIAGNOSTIC 4 polyps, 1 precancerous OTHER SURGICAL stent in celiac and superior mesenteric artery REMOVAL BILIARY DUCT/GALLBLADDER CALCULI/DEBRIS PERCUTANEOUS W/ IMAGE FAMILY HISTORY: Family History Problem Relation Age of Onset Lung Cancer Mother GI Disease Mother Other - Specify Mother lung disease Colon Cancer Father Stomach Cancer Maternal Grandmother Cancer Maternal Grandmother blood GI Disease Maternal Grandmother Cancer Maternal Grandfather throat Stroke Paternal Grandmother SOCIAL HISTORY: reports that he has been smoking cigarettes. He has been smoking about 0.50 packs per day. He has never used smokeless tobacco. He reports current drug use. Drug: Marijuana. He reports that he does not drink alcohol. OBJECTIVE: Vitals: 10/15/21 1406 BP: 131/71 Pulse: 69 Resp: 12 Temp: 98.7 degrees F (37.1 degrees C) TempSrc: Infrared SpO2: 100% Weight: 47.6 kg (105 lb) Height: 1.803 m (5' 11) PHYSICAL EXAM: General: Patient is well appearing and in no apparent distress. AOX3 Pulm: Respirations are regular and unlabored Skin: no rashes Eyes: PERRL, EOMI. Vision is grossly intact. Musculoskeletal: No loss of muscle tone or atrophy noted. Cardio: There is no peripheral edema, cyanosis or pallor. Extremities are warm and well perfused. Patient is oriented to person, place and time. CN 2-12 are grossly intact bilaterally Speech is fluent, non-dysarthric. Neck: No lymphadeoapthy Test Coordination: Finger to nose, rapid alternating movement are grossly intact Neuro: Eyes open spontaneously Pupils: 4 mm and reactive bilaterally Oriented to person, place, and time Face symmetric Upper Extremities: deltoid bicep tricep Wrist ext Triple Valve Tester Hand IO right 5/5 5/5 5/5 5/5 5/5 5/5 left 5/5 5/5 5/5 5/5 5/5 5/5 Lower extremities: Hip flex Quad Hamstr Jina flex Plantar flex EHL toes right 5/5 5/5 5/5 5/5 5/5 5/5 5/5 left 5/5 5/5 5/5 5/5 5/5 5/5 5/5 Reflexes: 2+ in biceps, patella Bautista's: negative bilaterally Ankle Clonus: Negative Sensation: grossly intact throughout IMAGING STUDIES: These were personally reviewed and the reads below are my own interpretations MRI cervical spine 10/03/2021: No severe central or neural foraminal stenosis. There is severe facet arthropathy on the right at C3-4 and C4-5. Standing scoliosis x-ray 10/15/2021: Mild proximal thoracic coronal deformity. Severe facet arthropathy at C3-4 and C4-5 ASSESSMENT & PLAN: Principal Problem: Mechanical neck pain due to facet arthropathy Plan: Ministerio Leal has severe mechanical neck pain and imaging shows very severe facet arthropathy with overgrowth and edema of the facets on the right-sided C3- 4 and C4-5. From a surgical perspective theonly tool I have in my arsenal is a posterior fusion which I do not think would be in the patient'sbest interest. My recommendation would be evaluation by the Pain Management Department for continued medial branch blocks as well as targeted facet ablation site at C3-4 and C4-5. Marisa Castillo MD Stripper Cutter Machine Department of Neurosurgery [facility] documented in this encounterOSU [facility] Hospit[facility] St. [facility] Medical CenterChief complaint+Reason for visit Narrative* Chief Complaint ABD PAIN EST CARE REFERRAL EORDER NECK n/v VOMITING VOMITING ABDOMINAL PAIN,COLITIS ABDOMINAL PAIN,COLITIS ABDOMINAL PAIN,COLITIS ABDOMINAL PAIN,COLITIS ABDOMINAL PAIN,COLITIS ABDOMINAL PAIN,COLITIS ABDOMINAL PAIN,COLITIS ABDOMINAL PAIN,COLITIS Reason for Visit Choledocholithiasis with obstruction Weight loss IBS (irritable bowel syndrome) Abdominal pain Acute upper gastrointestinal bleeding Coagulopathy History of ulcer disease Weight loss Vomiting Abdominal pain [facility] Work Phone: Chief complaint+Reason for visit Narrative* Chief Complaint ABD PAIN EST CARE REFERRAL EORDER NECK n/v VOMITING VOMITING ABDOMINAL PAIN,COLITIS ABDOMINAL PAIN,COLITIS ABDOMINAL PAIN,COLITIS ABDOMINAL PAIN,COLITIS ABDOMINAL PAIN,COLITIS ABDOMINAL PAIN,COLITIS ABDOMINAL PAIN,COLITIS ABDOMINAL PAIN,COLITIS ABDOMINAL PAIN,COLITIS CERVICAL RAD Reason for Visit Choledocholithiasis with obstruction Weight loss IBS (irritable bowel syndrome) Abdominal pain History of ulcer disease Weight loss Acute upper gastrointestinal bleeding Vomiting Abdominal pain [facility] Work Phone: Discharge summary Author Dr. Elliott [facility] October 10, 2022 1:56pm Note Date/Time October 10, 2022 1:5 6pm [facility] Medical Records Department [address] [place] [id number] Instructions for Home/Discharge Instructions 10/10/22 1355 MR#: [id number] Acct: [id number] Name: MINISTERIO LEAL Rep #:[id number] : 1960 62 From: Joan Elliott MD PCP: Dr. Hitesh Dai MD Status:ADM IN O Discharge Instructions Diet Discharge Diet: Low fat / Low cholesterol Activity Discharge Activity: Return to Normal Activity Weight Bearing Status: Weight bearing as tolerated Dressing / Incision Call your doctor if you observe: Fever of 101 or Higher, Shortness of breath, Dizziness, Swelling in the ankles, Chest pain and Increased palpitations (irregular heartbeat) Follow Up Care Test Results: Test results from this visit will be discussed in further detail at your follow- up appointment, if applicable. Discharge Plan Admission Admit Date/Time: 10/09/22 19:32 Primary Reason for Your Visit: intractable abdominal pain Attending Provider: Joan Elliott Primary Care Provider: Hitesh Dai Consulting Providers: Abigail Alonzo Instructions Patient Instructions: Abdominal Pain Discharge Orders/Prescriptions Prescriptions: Continued clopidogrel 75 MG tablet 75 mg PO QHS Hold Instructions: hold for five days, then resume rosuvastatin 10 MG tablet 10 mg PO QHS aspirin 81 mg Tablet 81 mg PO DAILY pantoprazole [Protonix] 40 mg tablet,delayed release (DR/EC) 20 mg PO QHS oxycodone-acetaminophen [Percocet] 5-325 mg tablet 1 tab PO Q8H PRN (Reason: pain) 3 Days Qty: 10 0RF ondansetron 4 mg tablet,disintegrating 4 mg PO Q8H PRN PRN (Reason: Nausea) Qty: 10 0RF Cholestyramine Light 4 gram powder 4 g PO DAILY Qty: 201.6 0RF Rx Instructions: administer w/meal; avoid other meds within 1hr before or 2hr after dose Referrals / Follow Up: Kory Medina DO [Med Staff - Active Staff] - Within 2 Weeks Hitesh Dai MD [Primary Care Provider] - Within 2 Weeks Disposition Disposition (needs filled in before D/C Order can be placed): Home, Self Care 10/10/22 1356<Electronically signed by Joan Elliott MD>Joan Elliott MD CC: Dr. Abigail Alonzo MD; Dr. Hitesh Dai MD ~ Signed [facility] Work Phone: Discharge summary Author Alexander Hernandez [facility] Note Date/Time March 22, 2025 12:55pm [facility] Medical Records Department [address] [place] [address] Emergency Department Summary 03/22/25 MR#: [id number] Acct: [id number] Name: MINISTERIO LEAL Rep #:[id number] : 1960 64 From: Alexander Hernandez MD PCP: Dr. Hitesh Dai MD Status:DEP ER Location: ED HPI HPI - GI History of Present Illness Chief Complaint: Abd Pain Informant: patient Abdominal Pain/Flank Pain Onset: Days Context: Gradual Onset Timing: Continuous Quality: Sharp and Stabbing Location: Diffuse Current Severity: Moderate Maximum Severity: Moderate Worsened by: Nothing Relieved by: Nothing Nausea/Vomiting/Emesis GI Symptom: Negative for Nausea or Vomiting Diarrhea/Melena/Hematochezia GI Symptom: Negative for Diarrhea, Melena or Hematochezia Associated Symptoms Associated Symptoms: Negative for Dysuria, Frequency, Hematuria or Urgency Narrative Narrative: 64-year-old male history of chronic abdominal pain. Has stents in both his superior mesenteric artery and celiac stents. Patient's had prior cholecystectomy and partial gastrectomy due to ulcers. He has chronic abdominalpain to really not sure of the source. He sees pain management for this. He has had some type of spinal nerve block to helping with this and has spinal blocks pending in about 10 days. States he is having recurrent pain last several days. Denies nausea, vomiting or diarrhea. Denies fever or chills. Denies dysuria. Also states he has had URI symptoms last several days with wheezing. He is a smoker. Prior similar symptoms: Yes Recent Illness/Hospitalization: No PFSH PFSH Medical History Marijuana use Restless legs History of stress test Liver failure Superior mesenteric artery syndrome Mesenteric ischemia, chronic Wears glasses Arthritis High cholesterol Migraine headache Injury of head and neck History of GI bleed Difficulty swallowing History of ulceration History of IBS History of diverticulitis Smoker Celiac artery stenosis Mesenteric artery stenosis Home Medications ?Medication ?Instructions ?Recorded ?Last Taken ?Type clopidogrel 75 mg tablet 75 mg PO QHS BLOOD THINNER 0 09/23/16 01/04/23 History rosuvastatin 10 mg tablet 10 mg PO QHS CHOLESTEROL 11/11/22 History aspirin 81 mg tablet,delayed 81 mg PO DAILY HEART HEAL TH 11/12/22 01/04/23 History release pantoprazole 20 mg tablet,delayed 20 mg PO QHS ACID RE FLUX 11/12/22 11/11/22 History release oxycodone 5 mg tablet 5 mg PO TID PRN PRN pain 12/15 Unknown History Allergy/AdvReac Type Severity Reaction Status Date / Time senna Allergy Anaphylaxis Verified 03/22/25 10:40 omeprazole AdvReac Other Verified 03/22/25 10:40 Family History Father Colon cancer Mother COPD (chronic obstructive pulmonary disease) Lung cancer Concurrent tobacco use history. Surgical History Hx of resection of stomach Hx of myringotomy History of liver biopsy Hx of surgical procedure Hx of colonoscopy Hx of cervical spine surgery History of esophagogastroduodenoscopy (EGD) History of cholecystectomy Social History household members: spouse Smoking Status: Current every day smoker tobacco type: cigarettes how long ago did patient quit smoking: Cut back over 2-3 weeks, down to 3 cig/day 10/09/22. alcohol intake: current alcohol intake frequency: a few times a month details: occasional use substance use type: does not use ROS ROS ED ROS Narrative Abdominal pain. URI. Constitutional Constitutional ED: Denies chills or fever(s) ENT ENT ED: Reports other Details: Cough ; Denies ear pain Cardiovascular Cardiovascular: Denies chest pain Respiratory/Chest Respiratory/Chest: Denies cough or dyspnea Gastrointestinal Gastrointestinal: Reports abdominal pain; Denies constipation, diarrhea, melena,nausea or vomiting Genitourinary Genitourinary ED: Denies dysuria or hematuria Musculoskeletal Musculoskeletal: Denies arthralgias or back pain Integumentary Denies abscess or Abrasions Neurologic Neurologic: Denies headache(s) Psychiatric Psychiatric: Denies anxiety Endocrine Endocrinology: Denies polydipsia Hematologic/Lymphatic Hematologic/Lymphatic: Denies easy bleeding Allergic/Immunologic Allergic/Immunologic ED: Denies mouth swelling, tongue swelling or urticaria EXAM Physical Exam Narrative Exam Narrative: 64-year-old male sitting upright in bed. Vital signs stable afebrile. Complaining of pain. Family at bedside. H EENT exam pupils round react light. Poor dentition. Moist mucous membranes. Neck nontender no JVD. Lungs coarse breath sounds. Expiratory wheezing. No rales or rhonchi. Equal symmetrical. Heart regular rhythm rate about 70 no murmur. Chest wall ribs nontender. Abdomen soft nondistended normal bowel sounds without peritoneal signs. He is complaining of pain is really not reproducibly tender however. There is no hernia or mass. No signs of obstruction. No pulsatile mass. Moving all 4 extremities. Nontender no edema normal strength. Back nontender. Neurologically is awake and alert. Answering questions following commands. Const Vital Signs: 03/22/25 10:38 03/22/25 11:20 Temperature 98.3 F Temperature Source Oral Pulse Rate 68 73 Respiratory Rate 14 20 H Blood Pressure 145/69 H Blood Pressure Mean 94 Pulse Ox 98 Oxygen Delivery Method Room Air Positive well nourished and well developed; Negative for obese, cachectic, contractures or unkempt General Appearance ED: well developed; Negative for unkempt, cachectic, contractures, NAD or pallor Nutritional Appearance: Negative for cachectic or obese HEENT Reports moist mucous membranes normocephalic and atraumatic Eyes PERRL and EOMs intact bilaterally General Eye ED: Negative for pale conjunctiva or scleral icterus Neck no lymphadenopathy, supple and no JVD Resp normal respiratory effort and No clear to auscultation bilaterally Resp Narrative: Bilateral expiratory wheezes. Coarse breath sounds. No rales or rhonchi. Auscultation: wheezes; Negative for rales or rhonchi Cardio regular rate, regular rhythm, S1 normal heart sound, S2 normal heart sound and no murmurs GI non-tender, non-distended and no masses Auscultation: normoactive bowel sounds Palpation: soft; Negative for tender, guarding, rigid, hepatomegaly, splenomegaly, hernia, mass, pulsatile mass or rebound tenderness present Back/Spine no CVA tenderness General Back: Negative for CVA tenderness Cervical Spine: Negative for cervical spine tenderness Thoracic Spine / Upper Back: Negative for thoracic spinal tenderness Lumbar Spine / Lower Back: Negative for lumbar spinal tenderness Coccyx: Negative for other Extremity full ROM General Extremety ED: Negative for edema or tenderness General Extremity: Negative for edema Neuro CN's II-XII intact bilaterally and moves all extremities Sensorium / Orientation: alert, oriented to person, oriented to place and oriented to time; Negative for orientation impaired or confused Motor Exam: strength 5/5 throughout Psych mental status grossly normal and thought process normal Appearance: Negative for unkempt Skin no wounds General Skin Exam: Negative for jaundice or pallor Lesions: no lesions Rashes: no rashes MDM MDM MDM Narrative Medical decision making narrative: 64-year-old male with acute on chronic abdominal pain Idelle have a specific cause for. He sees pain management at [facility]. He has upcoming nerve block injections for his back that helps with his abdominal pain. Patient's had9 CAT scans here in the last 2 years. Does not believe he needs another CAT scan. Screening labs to be obtained. He will be given Dilaudid for pain and Zofran. He also is having URI symptoms most likely a viral bronchitis. A chestx-ray will be obtained. Repeat exam at 12:32 p.m. patient doing well. Feeling better. Abdomen is benign. Again nondistended. Patient brought up the idea of being admitted I explained to him with his labs the way they are in him having abdominal pain he really do not know the cause I do not feel that the hospitalist would admit him for this. He can follow-up with his pain management doctors in [place]. History & Record Review Discussion w/independent historian: Patient and Family Additional record(s) reviewed:: Prior inpatient record, Prior outpatient record,Prior ED visit and Prior labs Lab Data Attestation: I reviewed the patient's lab results. Lab results narrative: CBC shows white count 8.6 H&H 11.1 and 34.1. Platelets 319. Electrolytes show gap 17. BUN and creatinine fourteen 0.9. Glucose 88. Liver enzymes unremarkable alk phos 194. Amylase normal at 36. Lipase normal at 16. Labs: Laboratory Results - last 24 hr 03/22/25 11:04 WBC 8.6 RBC 4.92 Hgb 11.1 L Hct 34.1 L MCV 69.3 L MCH 22.6 L MCHC 32.6 RDW Std Deviation 47.2 H RDW Coeff of Rashida 19.5 H Plt Count 319 MPV 11.6 Immature Gran % (Auto) 0.300 Neut % (Auto) 72.8 H Lymph % (Auto) 15.5 L [place] % (Auto) 10.2 H Eos % (Auto) 0.5 Baso % (Auto) 0.7 Absolute Neuts (auto) 6.3 Absolute Lymphs (auto) 1.33 Nucleated RBC % 0 Sodium 135 Potassium 4.1 Chloride 100 Carbon Dioxide 17.6 L Anion Gap 17 H BUN 14 Creatinine 0.91 Estim Creat Clear Calc 53.71 Est GFR (MDRD) Non-Af 95 BUN/Creatinine Ratio 15.4 Glucose 88 Calcium 8.9 Total Bilirubin 0.55 AST 28 ALT 17 Alkaline Phosphatase 194 H Total Protein 6.9 Albumin 3.9 Globulin 3.1 Albumin/Globulin Ratio 1.2 Amylase 36 Lipase 16 Radiography Chest X-Ray - ED: 2 View, Read by ED Physician, Read by Radiologist, Heart, Lungs, Mediastinum, Bony Structures, No Acute Disease and Chronic Changes Diagnostic Testing: Clinical Impression(s) from Imaging Studies Chest X-Ray 03/22/25 11:35 IMPRESSION: There are increased lung volumes with no acute infiltrate or consolidation. Reading Location: [facility] Chest x-ray, 2 views, AP and lateral, interpreted by myself and the radiologist shows normal cardiac silhouette mediastinum. No pneumonia no infiltrates. No effusions. Lungs consistent with COPD. But no acute process. Chronic changes. Discharge Plan Triage Chief Complaint: Abd Pain ED Provider: Alexander Hernandez Dx/Rx/DC Orders Clinical Impression: Abdominal pain, Chronic pain Instructions: Abdominal Pain, ED Chronic Pain Prescriptions: No Action clopidogrel 75 MG tablet 75 mg PO QHS rosuvastatin 10 MG tablet 10 mg PO QHS aspirin 81 mg Tablet,Delayed Release (Dr/Ec) 81 mg PO DAILY pantoprazole 20 mg tablet,delayed release (DR/EC) 20 mg PO QHS oxycodone 5 mg tablet 5 mg PO TID PRN PRN (Reason: pain) Primary Care Provider: Hitesh Dai Referrals: Hitesh Dai MD [Primary Care Provider, Medical] - As soon as possible Activity Restrictions/Additional Instructions: Call and follow-up with your pain management doctors in [place]. [place] diet. Increase slowly as tolerated. Print Language: Guatemalan Disposition Disposition: Home, Self Care What to do if you have Problems For any increased pain, shortness of breath, bleeding, nausea or vomiting, chestpain, or any unexpected problems, contact your Primary Care Provider. Call [facility] ([phone]) or report to the closest Emergency Room. Call 911 if necessary. 03/22/25 1530 <Electronically signed by Alexander Hernandez MD> Cosigner Signature (if applicable): CC: Dr. Hitesh Dai MD ~ Signed [facility] Work Phone: Evaluation note* Diagnosis Onset Date Resolution Status Choledocholithiasis with obstruction acute Weight loss acute IBS (irritable bowel syndrome) chronic Abdominal pain acute Acute upper gastrointestinal bleeding acute Coagulopathy acute History of ulcer disease acu te Weight loss acute Vomiting resolved Abdominal pain acute [facility] Work Phone: Evaluation note* Diagnosis Onset Date Resolution Status Choledocholithiasis with obstruction acute Weight loss acute IBS (irritable bowel syndrome) chronic Abdominal pain acute History of ulcer disease acu te Weight loss acute Acute upper gastrointestinal bleeding resolved Vomiting resolved Abdominal pain acute [facility] Work Phone: Evaluation note* Diagnosis Spinal stenosis of cervical region Spinal stenosis in cervical region [facility] Spinal stenosis of cervical region- Primary Spinal stenosis in cervical region Neck pain Cervicalgia Facet arthropathy of spine Spondylosis of unspecified site without mention of myelopathy Spinal stenosis of cervical region Spinal stenosis in cervical region [facility] Diagnosis Chronic pain syndrome- Primary Cervicalgia [facility] Diagnosis Preop exam for internal medicine- Primary Other specified pre-operative examination Cervicalgia Mesenteric ischemia Unspecified vascular insufficiency of intestine Duodenal ulcer Duodenal ulcer, unspecified as acute or chronic, without hemorrhage, perforation, or obstruction Current smoker Tobacco use disorder Mixed hyperlipidemia Preop exam for internal medicine Other specified pre-operative examination Mesenteric ischemia Unspecified vascular insufficiency of intestine Duodenal ulcer Duodenal ulcer, unspecified as acute or chronic, without hemorrhage, perforation, or obstruction Current smoker Tobacco use disorder Mixed hyperlipidemia Cervicalgia Cervicalgia Chronic pain syndrome Cervicalgia Chronic pain syndrome [facility] Diagnosis Preop exam for internal medicine Other specified pre-operative examination Mesenteric ischemia Unspecified vascular insufficiency of intestine Duodenal ulcer Duodenal ulcer, unspecified as acute or chronic, without hemorrhage, perforation, or obstruction Current smoker Tobacco use disorder Mixed hyperlipidemia Cervicalgia Cervicalgia Chronic pain syndrome Cervicalgia Chronic pain syndrome [facility] Diagnosis Cervicalgia Chronic pain syndrome Cervicalgia Chronic pain syndrome Cervicalgia Chronic pain syndrome [facility] Diagnosis Chronic mesenteric ischemia (HCC)- Primary Chronic vascular insufficiency of intestine [facility] Diagnosis Onset Date Resolution Status Colitis acute GI bleed acute Tubular adenoma of colon acu te Abdominal pain chronic Colitis acute GI bleed acute Abdominal pain [facility] Work Phone: Evaluation note* Diagnosis Chronic pain syndrome- Primary Cervicalgia Acute post-operative pain Cervicalgia Chronic pain syndrome [facility] Diagnosis DDD (degenerative disc disease), lumbar- Primary Degeneration of lumbar or lumbosacral intervertebral disc Cervicalgia Chronic pain syndrome [facility] Diagnosis Chronic pain syndrome- Primary Acute post-operative pain [facility] Diagnosis Cervicalgia- Primary Chronic pain syndrome Acute post-operative pain [facility] Diagnosis Cervicalgia- Primary Acute postoperative pain Other acute postoperative pain [facility] Diagnosis Onset Date Resolution Status Colitis acute GI bleed acute Abdominal pain chronic [facility] Work Phone: Evaluation note* Diagnosis Onset Date Resolution Status GI bleed acute Abdominal pain chronic Colitis chronic Abdominal pain chronic High urine total porphyrin c hronic History of liver failure chr [facility] Work Phone: Evaluation note* Diagnosis Onset Date Resolution Status Abdominal pain chronic High urine total porphyrin c hronic History of liver failure [facility] Work Phone: Evaluation note* Diagnosis Onset Date Resolution Status Abdominal pain chronic Thrombocytopenia acute Vomiting acute Mesenteric ischemia, chronic chronic [facility] Work Phone: Evaluation note* Diagnosis Onset Date Resolution Status Vomiting resolved ALBERT (acute kidney injury) ac juan Dehydration acute Intractable abdominal pain a cute Superior mesenteric artery syndrome acute [facility] Work Phone: Evaluation note* Diagnosis Epigastric pain- Primary Abdominal pain, epigastric [facility] Diagnosis Severe protein-calorie malnutrition (HCC)- Primary Other severe protein-calorie malnutrition [facility]* Diagnosis Onset Date Resolution Status Vomiting resolved ALBERT (acute kidney injury) re solved Dehydration resolved Intractable abdominal pain r esolved Choledocholithiasis with obstruction acute Abdominal pain chronic High urine total porphyrin c hronic History of liver failure chr onic IBS (irritable bowel syndrome) chronic Weight loss chronic Abdominal pain acute Nausea acute [facility] Work Phone: Evaluation note* Diagnosis Onset Date Resolution Status ALBERT (acute kidney injury) re solved Dehydration resolved Intractable abdominal pain r esolved Choledocholithiasis with obstruction acute Abdominal pain chronic High urine total porphyrin c hronic History of liver failure chr onic IBS (irritable bowel syndrome) chronic Weight loss chronic Abdominal pain acute Nausea acute [facility] Work Phone: Evaluation note* Diagnosis S/P partial gastrectomy- Primary Other postprocedural status [facility]* Diagnosis Chronic abdominal pain- Primary Abdominal pain, unspecified site documented in this encounter [facility] note* Diagnosis Surgery follow-up- Primary Follow-up examination, following unspecified surgery Diarrhea of presumed infectious origin [facility]* Diagnosis Acute post-operative pain- Primary documented in this encounter [facility] note* Diagnosis Protein-calorie malnutrition, unspecified severity (HCC)- Primary Dumping syndrome Postgastric surgery syndromes documented in this encounter [facility] note* Diagnosis LUQ pain- Primary Abdominal pain, left upper quadrant Black stools Nonspecific abnormal finding in stool contents Change in bowel habits Other symptoms involving digestive system Malnutrition of moderate degree (HCC) Malnutrition of moderate degree documented in this encounter [facility] note* Diagnosis LUQ pain Abdominal pain, left upper quadrant Black stools Nonspecific abnormal finding in stool contents documented in this encounter [facility] noteNo assessment information [facility]WC[facility] Work Phone: Evaluation note* Diagnosis Atherosclerosis of aorta (HCC) Atherosclerosis of aorta documented in this encounter [facility] note* Diagnosis LUQ pain- Primary Abdominal pain, left upper quadrant Black stools Nonspecific abnormal finding in stool contents RLQ abdominal pain Abdominal pain, right lower quadrant Generalized abdominal pain Abdominal pain, generalized [facility]* Diagnosis RLQ abdominal pain- Primary Abdominal pain, right lower quadrant [facility]* Diagnosis Diarrhea, unspecified type- Primary LLQ pain Abdominal pain, left lower quadrant documented in this encounter [facility] note* Diagnosis Generalized abdominal pain Abdominal pain, generalized Chronic mesenteric ischemia (HCC) Chronic vascular insufficiency of intestine S/P arterial stent Other postprocedural status Weight loss Loss of weight Chronic mesenteric ischemia (HCC) Chronic vascular insufficiency of intestine Polycythemia Polycythemia vera Gastroesophageal reflux disease without esophagitis Esophageal reflux Diarrhea, unspecified type LLQ pain Abdominal pain, left lower quadrant [facility]* Diagnosis Generalized abdominal pain Abdominal pain, generalized Chronic mesenteric ischemia (HCC) Chronic vascular insufficiency of intestine S/P arterial stent Other postprocedural status Weight loss Loss of weight Chronic mesenteric ischemia (HCC) Chronic vascular insufficiency of intestine Polycythemia Polycythemia vera Gastroesophageal reflux disease without esophagitis Esophageal reflux Lower abdominal pain- Primary Abdominal pain, other specified site [facility] this [facility]* Diagnosis Generalized abdominal pain Abdominal pain, generalized Chronic mesenteric ischemia (HCC) Chronic vascular insufficiency of intestine S/P arterial stent Other postprocedural status Weight loss Loss of weight Chronic mesenteric ischemia (HCC) Chronic vascular insufficiency of intestine Polycythemia Polycythemia vera Gastroesophageal reflux disease without esophagitis Esophageal reflux Mesenteric artery stenosis (HCC)- Primary Stricture of artery [facility] this [facility] Diagnosis Generalized abdominal pain Abdominal pain, generalized Chronic mesenteric ischemia (HCC) Chronic vascular insufficiency of intestine S/P arterial stent Other postprocedural status Weight loss Loss of weight Chronic mesenteric ischemia (HCC) Chronic vascular insufficiency of intestine Polycythemia Polycythemia vera Gastroesophageal reflux disease without esophagitis Esophageal reflux Generalized abdominal pain- Primary Abdominal pain, generalized [facility] Diagnosis Generalized abdominal pain Abdominal pain, generalized Chronic mesenteric ischemia (HCC) Chronic vascular insufficiency of intestine S/P arterial stent Other postprocedural status Weight loss Loss of weight Chronic mesenteric ischemia (HCC) Chronic vascular insufficiency of intestine Polycythemia Polycythemia vera Gastroesophageal reflux disease without esophagitis Esophageal reflux Inflammatory bowel disease- Primary Other and unspecified noninfectious gastroenteritis and colitis [facility] this [facility] Diagnosis Generalized abdominal pain Abdominal pain, generalized Chronic mesenteric ischemia (HCC) Chronic vascular insufficiency of intestine S/P arterial stent Other postprocedural status Weight loss Loss of weight Chronic mesenteric ischemia (HCC) Chronic vascular insufficiency of intestine Polycythemia Polycythemia vera Gastroesophageal reflux disease without esophagitis Esophageal reflux Abdominal pain, unspecified abdominal location- Primary [facility] Diagnosis Generalized abdominal pain Abdominal pain, generalized Chronic mesenteric ischemia (HCC) Chronic vascular insufficiency of intestine S/P arterial stent Other postprocedural status Weight loss Loss of weight Chronic mesenteric ischemia (HCC) Chronic vascular insufficiency of intestine Polycythemia Polycythemia vera Gastroesophageal reflux disease without esophagitis Esophageal reflux Lower abdominal pain- Primary Abdominal pain, other specified site [facility] this [facility] Diagnosis Generalized abdominal pain Abdominal pain, generalized Chronic mesenteric ischemia (HCC) Chronic vascular insufficiency of intestine S/P arterial stent Other postprocedural status Weight loss Loss of weight Chronic mesenteric ischemia (HCC) Chronic vascular insufficiency of intestine Polycythemia Polycythemia vera Gastroesophageal reflux disease without esophagitis Esophageal reflux Lower abdominal pain Abdominal pain, other specified site [facility] Diagnosis Generalized abdominal pain Abdominal pain, generalized Chronic mesenteric ischemia (HCC) Chronic vascular insufficiency of intestine S/P arterial stent Other postprocedural status Weight loss Loss of weight Chronic mesenteric ischemia (HCC) Chronic vascular insufficiency of intestine Polycythemia Polycythemia vera Gastroesophageal reflux disease without esophagitis Esophageal reflux Chronic mesenteric ischemia (HCC)- Primary Chronic vascular insufficiency of intestine Mesenteric artery stenosis (HCC) Stricture of artery Chronic mesenteric ischemia (HCC) Chronic vascular insufficiency of intestine [facility] Diagnosis Generalized abdominal pain Abdominal pain, generalized Chronic mesenteric ischemia (HCC) Chronic vascular insufficiency of intestine S/P arterial stent Other postprocedural status Weight loss Loss of weight Chronic mesenteric ischemia (HCC) Chronic vascular insufficiency of intestine Polycythemia Polycythemia vera Gastroesophageal reflux disease without esophagitis Esophageal reflux Chronic mesenteric ischemia (HCC)- Primary Chronic vascular insufficiency of intestine Chronic mesenteric ischemia (HCC) Chronic vascular insufficiency of intestine [facility] Diagnosis Generalized abdominal pain Abdominal pain, generalized Chronic mesenteric ischemia (HCC) Chronic vascular insufficiency of intestine S/P arterial stent Other postprocedural status Weight loss Loss of weight Chronic mesenteric ischemia (HCC) Chronic vascular insufficiency of intestine Polycythemia Polycythemia vera Gastroesophageal reflux disease without esophagitis Esophageal reflux Epigastric pain- Primary Abdominal pain, epigastric Generalized abdominal pain Abdominal pain, generalized [facility] Diagnosis Generalized abdominal pain Abdominal pain, generalized Chronic mesenteric ischemia (HCC) Chronic vascular insufficiency of intestine S/P arterial stent Other postprocedural status Weight loss Loss of weight Chronic mesenteric ischemia (HCC) Chronic vascular insufficiency of intestine Polycythemia Polycythemia vera Gastroesophageal reflux disease without esophagitis Esophageal reflux Abdominal wall pain- Primary Abdominal pain, unspecified site Dyspepsia Dyspepsia and other specified disorders of function of stomach [facility] Diagnosis Generalized abdominal pain Abdominal pain, generalized Chronic mesenteric ischemia (HCC) Chronic vascular insufficiency of intestine S/P arterial stent Other postprocedural status Weight loss Loss of weight Chronic mesenteric ischemia (HCC) Chronic vascular insufficiency of intestine Polycythemia Polycythemia vera Gastroesophageal reflux disease without esophagitis Esophageal reflux Chronic abdominal pain- Primary Abdominal pain, unspecified site Chronic mesenteric ischemia (HCC) Chronic vascular insufficiency of intestine Abdominal wall pain Abdominal pain, unspecified site Chronic abdominal pain Abdominal pain, unspecified site Chronic mesenteric ischemia (HCC) Chronic vascular insufficiency of intestine [facility] Diagnosis Generalized abdominal pain Abdominal pain, generalized Chronic mesenteric ischemia (HCC) Chronic vascular insufficiency of intestine S/P arterial stent Other postprocedural status Weight loss Loss of weight Chronic mesenteric ischemia (HCC) Chronic vascular insufficiency of intestine Polycythemia Polycythemia vera Gastroesophageal reflux disease without esophagitis Esophageal reflux Chronic abdominal pain- Primary Abdominal pain, unspecified site Chronic mesenteric ischemia (HCC) Chronic vascular insufficiency of intestine Abdominal wall pain Abdominal pain, unspecified site Chronic abdominal pain Abdominal pain, unspecified site Chronic mesenteric ischemia (HCC) Chronic vascular insufficiency of intestine Abdominal wall pain Abdominal pain, unspecified site [facility] Diagnosis Generalized abdominal pain Abdominal pain, generalized Chronic mesenteric ischemia (HCC) Chronic vascular insufficiency of intestine S/P arterial stent Other postprocedural status Weight loss Loss of weight Chronic mesenteric ischemia (HCC) Chronic vascular insufficiency of intestine Polycythemia Polycythemia vera Gastroesophageal reflux disease without esophagitis Esophageal reflux Chronic abdominal pain- Primary Abdominal pain, unspecified site Chronic mesenteric ischemia (HCC) Chronic vascular insufficiency of intestine Abdominal wall pain Abdominal pain, unspecified site Chronic abdominal pain Abdominal pain, unspecified site Chronic mesenteric ischemia (HCC) Chronic vascular insufficiency of intestine Abdominal wall pain Abdominal pain, unspecified site [facility] Additional Instructions Please take Dilaudid for pain. Please take zofran for nausea. Please return for worsening pain. Please follow-up with your GI doctor. Please follow-up with Dr. Noble for ongoing pain management.[facility] Work Phone: Hospital Discharge instructions Additional Instructions Follow-up with your PCP and return for any worsening symptoms.[facility] Work Phone: Hospital Discharge instructionsAdditional Instructions Call and follow-up with your pain management doctors in [place]. [place] diet. Increase slowly as tolerated.[facility] Work Phone: Reason for referral (narrative)* Consultation (Routine) - New Request Specialty Diagnoses / Procedures Referred By Contac t Referred To Contact Multispecialty Diagnoses Spinal stenosis of cervical region Neck pain Facet arthropathy of spine Marisa Castillo MD [address] [place] [address] Referral ID Status Reason Start Date Expiration Date V isits Requested Visits Authorized [id number] New Request 10/15/2021 11/09/2022 1 1 [facility] for referral (narrative)* Consultation (Routine) - New Request Specialty Diagnoses / Procedures Referred By Contac t Referred To Contact PreOp Diagnoses Cervicalgia Chronic pain syndrome Marielena Pierre MD [address] [place] [address] [place] [address] Referral ID Status Reason Start Date Expiration Date V isits Requested Visits Authorized [id number] New Request 11/26/2021 12/21/2022 1 1 * Consultation (Routine) - New Request Specialty Diagnoses / Procedures Referred By Contac t Referred To Contact Psychiatry Diagnoses Cervicalgia Chronic pain syndrome Marielena Pierre MD [address] [place] [address] [place] [address] Referral ID Status Reason Start Date Expiration Date V isits Requested Visits Authorized [id number] New Request 11/26/2021 12/21/2022 1 1 * MRI/CAT Scan (Routine) - New Request Specialty Diagnoses / Procedures Referred By Contac t Referred To Contact Diagnoses Cervicalgia Chronic pain syndrome Procedures MRI SPINE THORACIC WITHOUT CONTRAST CT MRI, DORSAL SPINE Marielena Pierre MD [address] [place] [address] [place] [address] Referral ID Status Reason Start Date Expiration Date V isits Requested Visits Authorized [id number] New Request 11/26/2021 12/21/2022 1 1 [facility] for referral (narrative)* Outpatient Procedure (Routine) - Authorized Specialty Diagnoses / Procedures Referred By Contac t Referred To [facility] Diagnoses Chronic mesenteric ischemia (HCC) Procedures US MESENTERIC ARTERY CMPLT VAS LAB DUP-SCAN ARTL BELA ABDL/PEL/SCROT&/RPR ORGN COM Gio Richardson DO [address] [place] [address] [facility] [place] [address] [place] [address] Referral ID Status Reason Start Date Expiration Date Visits Requested Visits Authorized [id number] Authorized Auto-Generat ed Referral 01/17/2022 01/17/2023 1 1 [facility] for referral (narrative)* Diagnostic Procedure Only (Routine) - Authorized Specialty Diagnoses / Procedures Referred By Contac t Referred To Contact XR IMAGING Diagnoses Epigastric pain Procedures XR UPPER GI SINGLE CONTRAST RADIOLOGIC EXAM UPR GI TRC SINGLE CONTRAST STUDY Mary Lewis MD [address] [place] [address] Xr Imaging Referral ID Status Reason Start Date Expiration Date Visits Requested Visits Authorized [id number] Authorized Auto-Generat ed Referral 06/23/2022 06/22/2023 1 1 [facility] for referral (narrative)* Outpatient Procedure (Routine) - Authorized Specialty Diagnoses / Procedures Referred By Contac t Referred To Contact [facility] Diagnoses LUQ pain Black stools Procedures EGD DIAGNOSTIC EGD DIAGNOSTIC ESOPHAGOGASTRODUODENOSC OPY TRANSORAL DIAGNOSTIC George Culver MD [email or web address] [place] [address] [facility] [place] [address] [place] [address] Referral ID Status Reason Start Date Expiration Date Visits Requested Visits Authorized [id number] Authorized Auto-Generat ed Referral 03/27/2023 03/27/2024 1 1 [facility] for referral (narrative)* Outpatient Procedure (Routine) - Authorized Specialty Diagnoses / Procedures Referred By Contac t Referred To Contact [facility] Diagnoses Diarrhea, unspecified type LLQ pain Procedures COLONOSCOPY DIAGNOSTIC COLONOSCOPY FLX DX W/COLLJ SPEC WHEN PFRMD George Culver MD [address] [address] [place] [id number] Referral ID Status Reason Start Date Expiration Date Visits Requested Visits Authorized [id number] Authorized Auto-Generat ed Referral 01/15/2024 01/14/2025 1 1 [facility] for referral (narrative)* Outpatient Procedure (Routine) - Authorized Specialty Diagnoses / Procedures Referred By Contac t Referred To Contact [facility] [place] Diagnoses Mesenteric artery stenosis (HCC) Procedures US MESENTERIC ARTERY CMPLT VAS LAB DUP-SCAN ARTL BELA ABDL/PEL/SCROT&/RPR ORGN COM Gio Richardson DO [address] [place] [address] [address] Referral ID Status Reason Start Date Expiration Date Visits Requested Visits Authorized [id number] Authorized Auto-Generat ed Referral 05/11/2025 1 1 [facility] for referral (narrative)No reason for referral information availableWCleveland [facility] Work [facility]: Reason for visit Narrative* Auth/Cert Specialty Diagnoses / Procedures Referred By Contac t Referred To Contact Diagnoses Cervicalgia Chronic pain syndrome Cervicalgia [M54.2] Chronic pain syndrome [G89.4] Procedures CT PERCUT IMPLNT NEUROELECT,EPIDURAL CHG FLUOROSCOPIC GUIDANCE NEEDLE PLACEMENT ADD ON INSERTION NEUROSTIMULATOR ELECTRODE SPINAL PERCUTANEOUS GUIDANCE FLUOROSCOPIC NEEDLE PLACEMENT ADD-ON PX Marielena Pierre MD [address] [place] [address] [place] [address] Referral ID Status Reason Start Date Expiration Date Visits Re quested Visits Authorized [id number] 12/13/2021 [facility] N[facility] Auth/Cert Specialty Diagnoses / Procedures Referred By Contac t Referred To Contact Diagnoses Cervicalgia Chronic pain syndrome Cervicalgia [M54.2] Chronic pain syndrome [G89.4] Procedures CT PERCUT IMPLNT NEUROELECT,EPIDURAL CT IMPLANT NEUROSTIM/SUPERVISOR HAND WORKERS CHG FLUOROSCOPIC GUIDANCE NEEDLE PLACEMENT ADD ON INSERTION NEUROSTIMULATOR ELECTRODE SPINAL PERCUTANEOUS INSERTION REPLACEMENT NEUROSTIMULATOR GENERATOR SPINAL GUIDANCE FLUOROSCOPIC NEEDLE PLACEMENT ADD-ON Marielena Foster MD [address] [place] [address] [place] [address] [facility] [address] [place] [address] Referral ID Status Reason Start Date Expiration Date Visits Re quested Visits Authorized [id number] 1 1 [facility] Auth/Cert Specialty Diagnoses / Procedures Referred By Contac t Referred To Contact Diagnoses Cervicalgia Chronic pain syndrome Cervicalgia [M54.2] Chronic pain syndrome [G89.4] Procedures CT REVJ/RMVL PERIPHERAL NEUROSTIMULATOR ELECTRODE CT REVISE/REMOVE GASTRIC NEUROSTIM/SUPERVISOR HAND WORKERS REVISION REMOVAL NEUROSTIMULATOR ELECTRODE PERIPHERAL REVISION REMOVAL NEUROSTIMULATOR GENERATOR GASTRIC OR PERIPHERAL Marielena Pierre MD [address] [place] [address] [place] [address] [facility] [address] [place] [address] Referral ID Status Reason Start Date Expiration Date Visits Re quested Visits Authorized [id number] 1 [address] [facility] Narrative* Outpatient Procedure (Routine) - Closed Specialty Diagnoses / Procedures Referred By Contac t Referred To Contact [facility] Diagnoses LUQ pain Black stools Procedures EGD DIAGNOSTIC EGD DIAGNOSTIC ESOPHAGOGASTRODUODENOSC OPY TRANSORAL DIAGNOSTIC George Culver MD [address] [address] [facility] [place] [address] [place] [address] Referral ID Status Reason Start Date Expiration Date V isits Requested Visits Authorized [id number] Closed Auto-Generate d Referral 03/27/2023 03/27/[address] [facility] Outpatient Procedure (Routine) - Authorized Specialty Diagnoses / Procedures Referred By Contac t Referred To Contact [facility] Diagnoses Diarrhea, unspecified type LLQ pain Procedures COLONOSCOPY DIAGNOSTIC COLONOSCOPY DIAGNOSTIC COLONOSCOPY DIAGNOSTIC COLONOSCOPY FLX DX W/COLLJ SPEC WHEN PFRMPrice Culver, George Collins MD [address] [place] [id number] [facility] [place] [address] [place] [address] Referral ID Status Reason Start Date Expiration Date Visits Requested Visits Authorized [id number] Authorized Auto-Generat ed Referral 01/15/2024 01/14/[address] [facility] Summary Purpose Family History No Family History Records Found Relationship Condition Age at Onset Recorded Date/T khushi father Malignant neoplasm of colon Unknown mother No cardiac disease Unknown Relationship Condition Age at Onset Recorded Date/T khushi father Malignant neoplasm of colon Unknown mother Chronic obstructive pulmonary disease Unk nown Malignant neoplasm of lung Unknown Bleeding disorder Status:Active Comments:Mater nal Grandmother. Cancer Status:Active Comments:Family Members In General. Cerebrovascular Accident Status:Active Comment s:Paternal Grandmother. Lupus Anticoagulant Disorder Status:Active Com ments:Brother. Osteoarthritis Status:Active Comments:Mother. Father. Thyroid problems Status:Active Comments:Patern al Grandmother. Bleeding disorder Status:Active Comments:Mater nal Grandmother. Cancer Status:Active Comments:Family Members In General. Cerebrovascular Accident Status:Active Comment s:Paternal Grandmother. Lupus Anticoagulant Disorder Status:Active Com ments:Brother. Osteoarthritis Status:Active Comments:Mother. Father. Thyroid problems Status:Active Comments:Patern al Grandmother. Bleeding disorder Status:Active Comments:Mater nal Grandmother. Cancer Status:Active Comments:Family Members In General. Cerebrovascular Accident Status:Active Comment s:Paternal Grandmother. Lupus Anticoagulant Disorder Status:Active Com ments:Brother. Osteoarthritis Status:Active Comments:Mother. Father. Thyroid problems Status:Active Comments:Debin al Grandmother. Bleeding disorder Status:Active Comments:Mater nal Grandmother. Cancer Status:Active Comments:Family Members In General. Cerebrovascular Accident Status:Active Comment s:Paternal Grandmother. Lupus Anticoagulant Disorder Status:Active Com ments:Brother. Osteoarthritis Status:Active Comments:Mother. Father. Thyroid problems Status:Active Comments:Debin al Grandmother. Bleeding disorder Status:Active Comments:Mater nal Grandmother. Cancer Status:Active Comments:Family Members In General. Cerebrovascular Accident Status:Active Comment s:Paternal Grandmother. Lupus Anticoagulant Disorder Status:Active Com ments:Brother. Osteoarthritis Status:Active Comments:Mother. Father. Thyroid problems Status:Active Comments:Debin al Grandmother. Bleeding disorder Status:Active Comments:Mater nal Grandmother. Cancer Status:Active Comments:Family Members In General. Cerebrovascular Accident Status:Active Comment s:Paternal Grandmother. Lupus Anticoagulant Disorder Status:Active Com ments:Brother. Osteoarthritis Status:Active Comments:Mother. Father. Thyroid problems Status:Active Comments:Debin al Grandmother. Bleeding disorder Status:Active Comments:Mater nal Grandmother. Cancer Status:Active Comments:Family Members In General. Cerebrovascular Accident Status:Active Comment s:Paternal Grandmother. Lupus Anticoagulant Disorder Status:Active Com ments:Brother. Osteoarthritis Status:Active Comments:Mother. Father. Thyroid problems Status:Active Comments:Debin al Grandmother. Bleeding disorder Status:Active Comments:Mater nal Grandmother. Cancer Status:Active Comments:Family Members In General. Cerebrovascular Accident Status:Active Comment s:Paternal Grandmother. Lupus Anticoagulant Disorder Status:Active Com ments:Brother. Osteoarthritis Status:Active Comments:Mother. Father. Thyroid problems Status:Active Comments:Debin al Grandmother. Bleeding disorder Status:Active Comments:Mater nal Grandmother. Cancer Status:Active Comments:Family Members In General. Cerebrovascular Accident Status:Active Comment s:Paternal Grandmother. Lupus Anticoagulant Disorder Status:Active Com ments:Brother. Osteoarthritis Status:Active Comments:Mother. Father. Thyroid problems Status:Active Comments:Debin al Grandmother. Bleeding disorder Status:Active Comments:Mater nal Grandmother. Cancer Status:Active Comments:Family Members In General. Cerebrovascular Accident Status:Active Comment s:Paternal Grandmother. Lupus Anticoagulant Disorder Status:Active Com ments:Brother. Osteoarthritis Status:Active Comments:Mother. Father. Thyroid problems Status:Active Comments:Debin al Grandmother. Bleeding disorder Status:Active Comments:Mater nal Grandmother. Cancer Status:Active Comments:Family Members In General. Cerebrovascular Accident Status:Active Comment s:Paternal Grandmother. Lupus Anticoagulant Disorder Status:Active Com ments:Brother. Osteoarthritis Status:Active Comments:Mother. Father. Thyroid problems Status:Active Comments:Debin al Grandmother. Bleeding disorder Status:Active Comments:Mater nal Grandmother. Cancer Status:Active Comments:Family Members In General. Cerebrovascular Accident Status:Active Comment s:Paternal Grandmother. Lupus Anticoagulant Disorder Status:Active Com ments:Brother. Osteoarthritis Status:Active Comments:Mother. Father. Thyroid problems Status:Active Comments:Debin al Grandmother. Bleeding disorder Status:Active Comments:Mater nal Grandmother. Cancer Status:Active Comments:Family Members In General. Cerebrovascular Accident Status:Active Comment s:Paternal Grandmother. Lupus Anticoagulant Disorder Status:Active Com ments:Brother. Osteoarthritis Status:Active Comments:Mother. Father. Thyroid problems Status:Active Comments:Debin al Grandmother. Bleeding disorder Status:Active Comments:Mater nal Grandmother. Cancer Status:Active Comments:Family Members In General. Cerebrovascular Accident Status:Active Comment s:Paternal Grandmother. Lupus Anticoagulant Disorder Status:Active Com ments:Brother. Osteoarthritis Status:Active Comments:Mother. Father. Thyroid problems Status:Active Comments:Debin al Grandmother. Bleeding disorder Status:Active Comments:Mater nal Grandmother. Cancer Status:Active Comments:Family Members In General. Cerebrovascular Accident Status:Active Comment s:Paternal Grandmother. Lupus Anticoagulant Disorder Status:Active Com ments:Brother. Osteoarthritis Status:Active Comments:Mother. Father. Thyroid problems Status:Active Comments:Debin al Grandmother. Bleeding disorder Status:Active Comments:Mater nal Grandmother. Cancer Status:Active Comments:Family Members In General. Cerebrovascular Accident Status:Active Comment s:Paternal Grandmother. Lupus Anticoagulant Disorder Status:Active Com ments:Brother. Osteoarthritis Status:Active Comments:Mother. Father. Thyroid problems Status:Active Comments:Debin al Grandmother. Bleeding disorder Status:Active Comments:Mater nal Grandmother. Cancer Status:Active Comments:Family Members In General. Cerebrovascular Accident Status:Active Comment s:Paternal Grandmother. Lupus Anticoagulant Disorder Status:Active Com ments:Brother. Osteoarthritis Status:Active Comments:Mother. Father. Thyroid problems Status:Active Comments:Debin ruth ann Grandmother. Bleeding disorder Status:Active Comments:Giovanni avilez Grandmother. Cancer Status:Active Comments:Family Members In General. Cerebrovascular Accident Status:Active Comment s:Paternal Grandmother. Lupus Anticoagulant Disorder Status:Active Com ments:Brother. Osteoarthritis Status:Active Comments:Mother. Father. Thyroid problems Status:Active Comments:Debin al Grandmother. Bleeding disorder Status:Active Comments:Giovanni avilez Grandmother. Cancer Status:Active Comments:Family Members In General. Cerebrovascular Accident Status:Active Comment s:Paternal Grandmother. Lupus Anticoagulant Disorder Status:Active Com ments:Brother. Osteoarthritis Status:Active Comments:Mother. Father. Thyroid problems Status:Active Comments:Debin ruth ann Grandmother. Bleeding disorder Status:Active Comments:Giovanni avilez Grandmother. Cancer Status:Active Comments:Family Members In General. Cerebrovascular Accident Status:Active Comment s:Paternal Grandmother. Lupus Anticoagulant Disorder Status:Active Com ments:Brother. Osteoarthritis Status:Active Comments:Mother. Father. Thyroid problems Status:Active Comments:Debin ruth ann Grandmother. Bleeding disorder Status:Active Comments:Giovanni avilez Grandmother. Cancer Status:Active Comments:Family Members In General. Cerebrovascular Accident Status:Active Comment s:Paternal Grandmother. Lupus Anticoagulant Disorder Status:Active Com ments:Brother. Osteoarthritis Status:Active Comments:Mother. Father. Thyroid problems Status:Active Comments:Debin ruth ann Grandmother. Bleeding disorder Status:Active Comments:Giovanni avilez Grandmother. Cancer Status:Active Comments:Family Members In General. Cerebrovascular Accident Status:Active Comment s:Paternal Grandmother. Lupus Anticoagulant Disorder Status:Active Com ments:Brother. Osteoarthritis Status:Active Comments:Mother. Father. Thyroid problems Status:Active Comments:Debin ruth ann Grandmother. Bleeding disorder Status:Active Comments:Giovanni avilez Grandmother. Cancer Status:Active Comments:Family Members In General. Cerebrovascular Accident Status:Active Comment s:Paternal Grandmother. Lupus Anticoagulant Disorder Status:Active Com ments:Brother. Osteoarthritis Status:Active Comments:Mother. Father. Thyroid problems Status:Active Comments:Debin ruth ann Grandmother. Bleeding disorder Status:Active Comments:Giovanni avilez Grandmother. Cancer Status:Active Comments:Family Members In General. Cerebrovascular Accident Status:Active Comment s:Paternal Grandmother. Lupus Anticoagulant Disorder Status:Active Com ments:Brother. Osteoarthritis Status:Active Comments:Mother. Father. Thyroid problems Status:Active Comments:Debin al Grandmother. Bleeding disorder Status:Active Comments:Giovanni nal Grandmother. Cancer Status:Active Comments:Family Members In General. Cerebrovascular Accident Status:Active Comment s:Paternal Grandmother. Lupus Anticoagulant Disorder Status:Active Com ments:Brother. Osteoarthritis Status:Active Comments:Mother. Father. Thyroid problems Status:Active Comments:Debin al Grandmother. Bleeding disorder Status:Active Comments:Mater nal Grandmother. Cancer Status:Active Comments:Family Members In General. Cerebrovascular Accident Status:Active Comment s:Paternal Grandmother. Lupus Anticoagulant Disorder Status:Active Com ments:Brother. Osteoarthritis Status:Active Comments:Mother. Father. Thyroid problems Status:Active Comments:Debin ruth ann Grandmother. Bleeding disorder Status:Active Comments:Giovanni avilez Grandmother. Cancer Status:Active Comments:Family Members In General. Cerebrovascular Accident Status:Active Comment s:Paternal Grandmother. Lupus Anticoagulant Disorder Status:Active Com ments:Brother. Osteoarthritis Status:Active Comments:Mother. Father. Thyroid problems Status:Active Comments:Debin ruth ann Grandmother. Bleeding disorder Status:Active Comments:Giovanni avilez Grandmother. Cancer Status:Active Comments:Family Members In General. Cerebrovascular Accident Status:Active Comment s:Paternal Grandmother. Lupus Anticoagulant Disorder Status:Active Com ments:Brother. Osteoarthritis Status:Active Comments:Mother. Father. Thyroid problems Status:Active Comments:Debin ruth ann Grandmother. Bleeding disorder Status:Active Comments:Giovanni avilez Grandmother. Cancer Status:Active Comments:Family Members In General. Cerebrovascular Accident Status:Active Comment s:Paternal Grandmother. Lupus Anticoagulant Disorder Status:Active Com ments:Brother. Osteoarthritis Status:Active Comments:Mother. Father. Thyroid problems Status:Active Comments:Debin al Grandmother. Bleeding disorder Status:Active Comments:Giovanni nal Grandmother. Cancer Status:Active Comments:Family Members In General. Cerebrovascular Accident Status:Active Comment s:Paternal Grandmother. Lupus Anticoagulant Disorder Status:Active Com ments:Brother. Osteoarthritis Status:Active Comments:Mother. Father. Thyroid problems Status:Active Comments:Debin al Grandmother. Bleeding disorder Status:Active Comments:Mater nal Grandmother. Cancer Status:Active Comments:Family Members In General. Cerebrovascular Accident Status:Active Comment s:Paternal Grandmother. Lupus Anticoagulant Disorder Status:Active Com ments:Brother. Osteoarthritis Status:Active Comments:Mother. Father. Thyroid problems Status:Active Comments:Debin al Grandmother. Bleeding disorder Status:Active Comments:Mater nal Grandmother. Cancer Status:Active Comments:Family Members In General. Cerebrovascular Accident Status:Active Comment s:Paternal Grandmother. Lupus Anticoagulant Disorder Status:Active Com ments:Brother. Osteoarthritis Status:Active Comments:Mother. Father. Thyroid problems Status:Active Comments:Debin al Grandmother. Bleeding disorder Status:Active Comments:Mater nal Grandmother. Cancer Status:Active Comments:Family Members In General. Cerebrovascular Accident Status:Active Comment s:Paternal Grandmother. Lupus Anticoagulant Disorder Status:Active Com ments:Brother. Osteoarthritis Status:Active Comments:Mother. Father. Thyroid problems Status:Active Comments:Debin al Grandmother. Bleeding disorder Status:Active Comments:Mater nal Grandmother. Cancer Status:Active Comments:Family Members In General. Cerebrovascular Accident Status:Active Comment s:Paternal Grandmother. Lupus Anticoagulant Disorder Status:Active Com ments:Brother. Osteoarthritis Status:Active Comments:Mother. Father. Thyroid problems Status:Active Comments:Debin al Grandmother. Bleeding disorder Status:Active Comments:Mater nal Grandmother. Cancer Status:Active Comments:Family Members In General. Cerebrovascular Accident Status:Active Comment s:Paternal Grandmother. Lupus Anticoagulant Disorder Status:Active Com ments:Brother. Osteoarthritis Status:Active Comments:Mother. Father. Thyroid problems Status:Active Comments:Debin al Grandmother. Bleeding disorder Status:Active Comments:Mater nal Grandmother. Cancer Status:Active Comments:Family Members In General. Cerebrovascular Accident Status:Active Comment s:Paternal Grandmother. Lupus Anticoagulant Disorder Status:Active Com ments:Brother. Osteoarthritis Status:Active Comments:Mother. Father. Thyroid problems Status:Active Comments:Debin al Grandmother. Bleeding disorder Status:Active Comments:Mater nal Grandmother. Cancer Status:Active Comments:Family Members In General. Cerebrovascular Accident Status:Active Comment s:Paternal Grandmother. Lupus Anticoagulant Disorder Status:Active Com ments:Brother. Osteoarthritis Status:Active Comments:Mother. Father. Thyroid problems Status:Active Comments:Debin al Grandmother. Bleeding disorder Status:Active Comments:Mater nal Grandmother. Cancer Status:Active Comments:Family Members In General. Cerebrovascular Accident Status:Active Comment s:Paternal Grandmother. Lupus Anticoagulant Disorder Status:Active Com ments:Brother. Osteoarthritis Status:Active Comments:Mother. Father. Thyroid problems Status:Active Comments:Debin al Grandmother. Bleeding disorder Status:Active Comments:Mater nal Grandmother. Cancer Status:Active Comments:Family Members In General. Cerebrovascular Accident Status:Active Comment s:Paternal Grandmother. Lupus Anticoagulant Disorder Status:Active Com ments:Brother. Osteoarthritis Status:Active Comments:Mother. Father. Thyroid problems Status:Active Comments:Debin al Grandmother. Bleeding disorder Status:Active Comments:Mater nal Grandmother. Cancer Status:Active Comments:Family Members In General. Cerebrovascular Accident Status:Active Comment s:Paternal Grandmother. Lupus Anticoagulant Disorder Status:Active Com ments:Brother. Osteoarthritis Status:Active Comments:Mother. Father. Thyroid problems Status:Active Comments:Debin al Grandmother. Bleeding disorder Status:Active Comments:Mater nal Grandmother. Cancer Status:Active Comments:Family Members In General. Cerebrovascular Accident Status:Active Comment s:Paternal Grandmother. Lupus Anticoagulant Disorder Status:Active Com ments:Brother. Osteoarthritis Status:Active Comments:Mother. Father. Thyroid problems Status:Active Comments:Debin al Grandmother. Bleeding disorder Status:Active Comments:Mater nal Grandmother. Cancer Status:Active Comments:Family Members In General. Cerebrovascular Accident Status:Active Comment s:Paternal Grandmother. Lupus Anticoagulant Disorder Status:Active Com ments:Brother. Osteoarthritis Status:Active Comments:Mother. Father. Thyroid problems Status:Active Comments:Debin al Grandmother. Bleeding disorder Status:Active Comments:Mater nal Grandmother. Cancer Status:Active Comments:Family Members In General. Cerebrovascular Accident Status:Active Comment s:Paternal Grandmother. Lupus Anticoagulant Disorder Status:Active Com ments:Brother. Osteoarthritis Status:Active Comments:Mother. Father. Thyroid problems Status:Active Comments:Patern al Grandmother. Bleeding disorder Status:Active Comments:Mater nal Grandmother. Cancer Status:Active Comments:Family Members In General. Cerebrovascular Accident Status:Active Comment s:Paternal Grandmother. Lupus Anticoagulant Disorder Status:Active Com ments:Brother. Osteoarthritis Status:Active Comments:Mother. Father. Thyroid problems Status:Active Comments:Debin ruth ann Grandmother. Bleeding disorder Status:Active Comments:Giovanni avilez Grandmother. Cancer Status:Active Comments:Family Members In General. Cerebrovascular Accident Status:Active Comment s:Paternal Grandmother. Lupus Anticoagulant Disorder Status:Active Com ments:Brother. Osteoarthritis Status:Active Comments:Mother. Father. Thyroid problems Status:Active Comments:Debin al Grandmother. Bleeding disorder Status:Active Comments:Giovanni nal Grandmother. Cancer Status:Active Comments:Family Members In General. Cerebrovascular Accident Status:Active Comment s:Paternal Grandmother. Lupus Anticoagulant Disorder Status:Active Com ments:Brother. Osteoarthritis Status:Active Comments:Mother. Father. Thyroid problems Status:Active Comments:Debin ruth ann Grandmother. Bleeding disorder Status:Active Comments:Mater raghav Grandmother. Cancer Status:Active Comments:Family Members In General. Cerebrovascular Accident Status:Active Comment s:Paternal Grandmother. Lupus Anticoagulant Disorder Status:Active Com ments:Brother. Osteoarthritis Status:Active Comments:Mother. Father. Thyroid problems Status:Active Comments:Debin ruth ann Grandmother. Bleeding disorder Status:Active Comments:Giovanni avilez Grandmother. Cancer Status:Active Comments:Family Members In General. Cerebrovascular Accident Status:Active Comment s:Paternal Grandmother. Lupus Anticoagulant Disorder Status:Active Com ments:Brother. Osteoarthritis Status:Active Comments:Mother. Father. Thyroid problems Status:Active Comments:Debin ruth ann Grandmother. Bleeding disorder Status:Active Comments:Giovanni avilez Grandmother. Cancer Status:Active Comments:Family Members In General. Cerebrovascular Accident Status:Active Comment s:Paternal Grandmother. Lupus Anticoagulant Disorder Status:Active Com ments:Brother. Osteoarthritis Status:Active Comments:Mother. Father. Thyroid problems Status:Active Comments:Debin ruth ann Grandmother. Bleeding disorder Status:Active Comments:Giovanni avilez Grandmother. Cancer Status:Active Comments:Family Members In General. Cerebrovascular Accident Status:Active Comment s:Paternal Grandmother. Lupus Anticoagulant Disorder Status:Active Com ments:Brother. Osteoarthritis Status:Active Comments:Mother. Father. Thyroid problems Status:Active Comments:Debin ruth ann Grandmother. Bleeding disorder Status:Active Comments:Mater nal Grandmother. Cancer Status:Active Comments:Family Members In General. Cerebrovascular Accident Status:Active Comment s:Paternal Grandmother. Lupus Anticoagulant Disorder Status:Active Com ments:Brother. Osteoarthritis Status:Active Comments:Mother. Father. Thyroid problems Status:Active Comments:Debin ruth ann Grandmother. Bleeding disorder Status:Active Comments:Giovanni nal Grandmother. Cancer Status:Active Comments:Family Members In General. Cerebrovascular Accident Status:Active Comment s:Paternal Grandmother. Lupus Anticoagulant Disorder Status:Active Com ments:Brother. Osteoarthritis Status:Active Comments:Mother. Father. Thyroid problems Status:Active Comments:Debin al Grandmother. Bleeding disorder Status:Active Comments:Giovanni nal Grandmother. Cancer Status:Active Comments:Family Members In General. Cerebrovascular Accident Status:Active Comment s:Paternal Grandmother. Lupus Anticoagulant Disorder Status:Active Com ments:Brother. Osteoarthritis Status:Active Comments:Mother. Father. Thyroid problems Status:Active Comments:Debin ruth ann Grandmother. Bleeding disorder Status:Active Comments:Giovanni avilez Grandmother. Cancer Status:Active Comments:Family Members In General. Cerebrovascular Accident Status:Active Comment s:Paternal Grandmother. Lupus Anticoagulant Disorder Status:Active Com ments:Brother. Osteoarthritis Status:Active Comments:Mother. Father. Thyroid problems Status:Active Comments:Debin ruth ann Grandmother. Bleeding disorder Status:Active Comments:Giovanni avilez Grandmother. Cancer Status:Active Comments:Family Members In General. Cerebrovascular Accident Status:Active Comment s:Paternal Grandmother. Lupus Anticoagulant Disorder Status:Active Com ments:Brother. Osteoarthritis Status:Active Comments:Mother. Father. Thyroid problems Status:Active Comments:Debin ruth ann Grandmother. Bleeding disorder Status:Active Comments:Giovanni avilez Grandmother. Cancer Status:Active Comments:Family Members In General. Cerebrovascular Accident Status:Active Comment s:Paternal Grandmother. Lupus Anticoagulant Disorder Status:Active Com ments:Brother. Osteoarthritis Status:Active Comments:Mother. Father. Thyroid problems Status:Active Comments:Debin al Grandmother. Bleeding disorder Status:Active Comments:Giovanni avilez Grandmother. Cancer Status:Active Comments:Family Members In General. Cerebrovascular Accident Status:Active Comment s:Paternal Grandmother. Lupus Anticoagulant Disorder Status:Active Com ments:Brother. Osteoarthritis Status:Active Comments:Mother. Father. Thyroid problems Status:Active Comments:Debin al Grandmother. Bleeding disorder Status:Active Comments:Mater nal Grandmother. Cancer Status:Active Comments:Family Members In General. Cerebrovascular Accident Status:Active Comment s:Paternal Grandmother. Lupus Anticoagulant Disorder Status:Active Com ments:Brother. Osteoarthritis Status:Active Comments:Mother. Father. Thyroid problems Status:Active Comments:Debin al Grandmother. Bleeding disorder Status:Active Comments:Mater nal Grandmother. Cancer Status:Active Comments:Family Members In General. Cerebrovascular Accident Status:Active Comment s:Paternal Grandmother. Lupus Anticoagulant Disorder Status:Active Com ments:Brother. Osteoarthritis Status:Active Comments:Mother. Father. Thyroid problems Status:Active Comments:Debin al Grandmother. Bleeding disorder Status:Active Comments:Mater nal Grandmother. Cancer Status:Active Comments:Family Members In General. Cerebrovascular Accident Status:Active Comment s:Paternal Grandmother. Lupus Anticoagulant Disorder Status:Active Com ments:Brother. Osteoarthritis Status:Active Comments:Mother. Father. Thyroid problems Status:Active Comments:Debin al Grandmother. Bleeding disorder Status:Active Comments:Mater nal Grandmother. Cancer Status:Active Comments:Family Members In General. Cerebrovascular Accident Status:Active Comment s:Paternal Grandmother. Lupus Anticoagulant Disorder Status:Active Com ments:Brother. Osteoarthritis Status:Active Comments:Mother. Father. Thyroid problems Status:Active Comments:Debin al Grandmother. Bleeding disorder Status:Active Comments:Mater nal Grandmother. Cancer Status:Active Comments:Family Members In General. Cerebrovascular Accident Status:Active Comment s:Paternal Grandmother. Lupus Anticoagulant Disorder Status:Active Com ments:Brother. Osteoarthritis Status:Active Comments:Mother. Father. Thyroid problems Status:Active Comments:Debin al Grandmother. Bleeding disorder Status:Active Comments:Mater nal Grandmother. Cancer Status:Active Comments:Family Members In General. Cerebrovascular Accident Status:Active Comment s:Paternal Grandmother. Lupus Anticoagulant Disorder Status:Active Com ments:Brother. Osteoarthritis Status:Active Comments:Mother. Father. Thyroid problems Status:Active Comments:Debin al Grandmother. Bleeding disorder Status:Active Comments:Mater nal Grandmother. Cancer Status:Active Comments:Family Members In General. Cerebrovascular Accident Status:Active Comment s:Paternal Grandmother. Lupus Anticoagulant Disorder Status:Active Com ments:Brother. Osteoarthritis Status:Active Comments:Mother. Father. Thyroid problems Status:Active Comments:Patern al Grandmother. Bleeding disorder Status:Active Comments:Giovanni nal Grandmother. Cancer Status:Active Comments:Family Members In General. Cerebrovascular Accident Status:Active Comment s:Paternal Grandmother. Lupus Anticoagulant Disorder Status:Active Com ments:Brother. Osteoarthritis Status:Active Comments:Mother. Father. Thyroid problems Status:Active Comments:Patern al Grandmother. Advance Directives No Advanced Directives Records Found Advance Directive Response Recorded Date/ Time Advance Directives Yes April 1:19pm Living Will No September 13, 2021 2:16pm Power of Technical Asst No September 13 2:16pm Advance Directive Response Recorded Date/ Time Advance Directives Yes April 1:19pm Living Will No October 09, 2021 11:34am Power of Technical Asst No October 09 11:34am Documents on File Type Date Recorded Patient Vacuum Tank Tender Expl anation Advance Directive(s) 08/24/2018 12:54 PM Advance Directive(s) 07/30/2018 5:05 AM Advance Directive(s) 07/22/2018 4:51 PM Advance Directive(s) 07/14/2018 1:56 PM Advance Directive(s) 06/27/2017 9:07 PM Advance Directive(s) 02/14/2017 3:35 PM Advance Directive(s) 09/17/2016 9:01 PM Latest Code Status on File Code Status Date Activated Date Inactivated Comments Full Code 02/01/2022 7:33 AM Latest Code Status on File Code Status Date Activated Date Inactivated Comments Full Code 02/01/2022 7:33 AM Latest Code Status on File Code Status Date Activated Date Inactivated Comments Full Code 03/01/2022 5:26 AM Full Code 02/01/2022 7:33 AM 03/01/2022 5:26 AM Latest Code Status on File Code Status Date Activated Date Inactivated Comments Full Code 03/01/2022 5:26 AM Full Code 02/01/2022 7:33 AM 03/01/2022 5:26 AM Latest Code Status on File Code Status Date Activated Date Inactivated Comments Full Code 03/29/2022 8:17 AM Full Code 03/01/2022 5:26 AM 03/29/2022 8:17 AM Advance Directive Response Recorded Date/ Time Advance Directives Yes April 12:19pm Living Will No October 09, 2021 10:34am Power of Technical Asst No October 09 10:34am Advance Directive Response Recorded Date/ Time Name of Medical Power of Technical Asst RADHA LEAL July 20, 2022 8:01pm Advance Directives Yes April 12:19pm Living Will Yes July 20 8:01pm Power of Technical Asst Yes July 20, 2022 8:01pm Advance Directive Response Recorded Date/ Time Name of Medical Power of Technical Asst RADHA LEAL July 20, 2022 8:01pm Name of Medical Power of Technical Asst radha toledo August 24, 2022 7:49pm Advance Directives Yes April 12:19pm Living Will Yes August 24, 2022 7:49pm Power of Technical Asst Yes August 24 7:49pm Advance Directive Response Recorded Date/ Time Name of Medical Power of Technical Asst RADHA LEAL July 20, 2022 9:01pm Name of Medical Power of Technical Asst radha toledo August 24, 2022 8:49pm Name of Medical Power of Technical Asst Radha Leal October 09, 2022 8:38pm Advance Directives Yes April 1:19pm Living Will Yes October 09, 2022 8:38pm Power of Technical Asst Yes October 09 8:38pm Advance Directive Response Recorded Date/ Time Name of Medical Power of Technical Asst radha toledo August 24, 2022 8:49pm Name of Medical Power of Technical Asst Radha Leal October 09, 2022 8:38pm Name of Medical Power of Technical Asst Radha stevenson November 12, 2022 3:03pm Advance Directives Yes April 1:19pm Living Will Yes November 12, 2022 3 :03pm Power of Technical Asst Yes November 12, 2022 3:03pm Advance Directive Response Recorded Date/ Time Name of Medical Power of Technical Asst Radha Leal October 09, 2022 8:38pm Name of Medical Power of Technical Asst RADHA/ January 06, 2023 12:06pm Advance Directives Yes April 1:19pm Living Will Yes January 06, 2023 12:06pm Power of Technical Asst Yes January 06 12:06pm Name of Medical Power of Technical Asst Radha stevenson November 12, 2022 3:03pm Latest Code Status on File Code Status Date Activated Date Inactivated Comments Full Code 01/17/2023 10:26 PM 02/03/2023 3:19 PM Question Answer Comments Full Code Order Discussed With: Patient Latest Code Status on File Code Status Date Activated Date Inactivated Comments Full Code 02/11/2023 7:47 AM 02/12/2023 1:45 PM Question Answer Comments Full Code Order Discussed With: Patient Code Status History Code Status Date Activated Date Inactivated Comments Full Code 01/17/2023 10:26 PM 02/03/2023 3:19 PM Question Answer Comments Full Code Order Discussed With: Patient Latest Code Status on File Code Status Date Activated Date Inactivated Comments Full Code 02/11/2023 7:47 AM 02/12/2023 1:45 PM Question Answer Comments Full Code Order Discussed With: Patient Code Status History Code Status Date Activated Date Inactivated Comments Full Code 01/17/2023 10:26 PM 02/03/2023 3:19 PM Question Answer Comments Full Code Order Discussed With: Patient Advance Directive Response Recorded Date/ Time Name of Medical Power of Technical Asst RADHA/ January 06, 2023 12:06pm Advance Directives Yes April 1:19pm Living Will No April 14 9:29am Power of Technical Asst No April 14, 2023 9:29am Advance Directive Response Recorded Date/ Time Name of Medical Power of Technical Asst RADHA/ January 06, 2023 12:06pm Advance Directives Yes April 1:19pm Living Will No April 25 4:28am Power of Technical Asst No April 25, 2023 4:28am Date Activated Date Inactivated Comments 02/11/2023 7:47 AM 02/12/2023 1:45 PM Question Answer Comments Full Code Order Discussed With: Patient Date Activated Date Inactivated Comments 01/17/2023 10:26 PM 02/03/2023 3:19 PM Question Answer Comments Full Code Order Discussed With: Patient Date Activated Date Inactivated Comments 02/11/2023 7:47 AM 02/12/2023 1:45 PM Question Answer Comments Full Code Order Discussed With: Patient Date Activated Date Inactivated Comments 01/17/2023 10:26 PM 02/03/2023 3:19 PM Question Answer Comments Full Code Order Discussed With: Patient Advance Directive Response Recorded Date/ Time Living Will Yes September 26, 2024 12:55pm Do you have a Healthcare Power of Technical Asst? Yes September 26, 2024 12:55pm Name of Medical Power of Technical Asst Radha Leal September 26, 2024 12:55pm Living Will No August 05 5:01am Do you have a Healthcare Power of Technical Asst? No August 05, 2024 5:01am Living Will No August 09 10:19pm Do you have a Healthcare Power of Technical Asst? No August 09, 2024 10:19pm Advance Directives Yes April 1:19pm Advance Directive Response Recorded Date/ Time Do you have a Healthcare Power of Technical Asst? No March 22, 2025 10:40am Advance Directives Yes April 1:19pm Reason for Referral Specialty Diagnoses / Procedures Referred By Contac t Referred To Contact Diagnoses Preop exam for internal medicine Mesenteric ischemia Duodenal ulcer Current smoker Mixed hyperlipidemia Cervicalgia Procedures PREPARE TO TRANSFUSE OR RED BLOOD CELLS Megan Campo, SOLAR ENERGY SPECIALIST-MAINTENANCE AND REPAIR WORKER [address] [facility] [address] [place] [address] Referral ID Status Reason Start Date Expiration Date V isits Requested Visits Authorized [id number] New Request 01/15/2022 02/09/2023 1 1 Specialty Diagnoses / Procedures Referred By Contac t Referred To Contact Diagnoses Cervicalgia Chronic pain syndrome Procedures MRI SPINE THORACIC WITHOUT CONTRAST CT MRI, DORSAL SPINE Marielena Pierre MD [address] [place] [address] [place] [address] Referral ID Status Reason Start Date Expiration Date Visits Re quested Visits Authorized [id number] Closed 11/26/2021 12/21/2022 1 1 Specialty Diagnoses / Procedures Referred By Contac t Referred To Contact Diagnoses Cervicalgia Procedures DVT/VTE RISK ASSESSMENT Kristine Lawrence, SOLAR ENERGY SPECIALIST-MAINTENANCE AND REPAIR WORKER [address] [facility] [place] [address] Referral ID Status Reason Start Date Expiration Date V isits Requested Visits Authorized [id number] New Request 02/01/2022 02/26/2023 1 1 Specialty Diagnoses / Procedures Referred By Contac t Referred To Contact Diagnoses Chronic pain syndrome Procedures DVT/VTE RISK ASSESSMENT Kristine Lawrence [address] [place] [address] Referral ID Status Reason Start Date Expiration Date V isits Requested Visits Authorized [id number] New Request 03/01/2022 03/26/2023 1 1 Specialty Diagnoses / Procedures Referred By Contac t Referred To Contact Diagnoses Cervicalgia Procedures NO MECHANICAL DVT PROPHYLAXIS Christopher Patterson SOLAR ENERGY SPECIALIST-MAINTENANCE AND REPAIR WORKER [address] [address] Referral ID Status Reason Start Date Expiration Date V isits Requested Visits Authorized [id number] New Request 03/29/2022 04/23/2023 1 1 Specialty Diagnoses / Procedures Referred By Contac t Referred To Contact Diagnoses Cervicalgia Procedures LOW RISK - NO PHARMACOLOGICAL DVT PROPHYLAXIS Christopher Patterson SOLAR ENERGY SPECIALIST-MAINTENANCE AND REPAIR WORKER [address] [address] Referral ID Status Reason Start Date Expiration Date V isits Requested Visits Authorized [id number] New Request 03/29/2022 04/23/2023 1 1 Specialty Diagnoses / Procedures Referred By Contac t Referred To Contact Diagnoses Cervicalgia Procedures DVT/VTE RISK ASSESSMENT Christopher Patterson SOLAR ENERGY SPECIALIST-MAINTENANCE AND REPAIR WORKER [address] [address] Referral ID Status Reason Start Date Expiration Date V isits Requested Visits Authorized [id number] New Request 03/29/2022 04/23/2023 1 1 Specialty Diagnoses / Procedures Referred By Contac t Referred To Contact Pain Management Diagnoses Chronic abdominal pain Procedures CONSULT TO PAIN MGT Azalea Chapman PA-C [address] [place] [address] Referral ID Status Reason Start Date Expiration Date Visits Requested Visits Authorized [id number] Ref Not Required PCP Requested Referral 02/14/2023 02/14/2024 1 1 Specialty Diagnoses / Procedures Referred By Contac t Referred To Contact Diagnoses Acute post-operative pain Azalea Chapman PA-C [address] [place] [address] Referral ID Status Reason Start Date Expiration Date Visits Re quested Visits Authorized [id number] Closed 1 1 Specialty Diagnoses / Procedures Referred By Contac t Referred To Contact Nutrition Diagnoses Protein-calorie malnutrition, unspecified severity (HCC) Dumping syndrome Procedures CONSULT TO NUTRITION THERAPY MEDICAL NUTRITION ASSMT&IVNTJ INDIV EACH 15 CO MEDICAL NUTRITION ASSMT&IVNTJ INDIV EACH 15 CO MEDICAL NUTRITION ASSMT&IVNTJ INDIV EACH 15 CO MEDICAL NUTRITION ASSMT&IVNTJ INDIV EACH 15 CO Azalea Chapman PA-C 1 [place] [address] Referral ID Status Reason Start Date Expiration Date Visits Requested Visits Authorized [id number] Authorized PCP Requested Referral 03/10/2023 03/09/2024 1 1 Specialty Diagnoses / Procedures Referred By Contac t Referred To Contact CT IMAGING Diagnoses Atherosclerosis of aorta (HCC) Procedures CTA ABD/PEL W IVCON CT ANGIO ABD&PLVIS CNTRST MTRL W/WO CNTRST Mary Holloway MD 1 [facility] [address] [place] [address] [place] [address] Referral ID Status Reason Start Date Expiration Date V isits Requested Visits Authorized [id number] Closed Auto-Generate d Referral 12/02/2022 01/16/2023 1 1 Specialty Diagnoses / Procedures Referred By Contac t Referred To Contact General Surgery Diagnoses Generalized abdominal pain Procedures CONSULT TO GENERAL SURGERY OFFICE/OUTPATIENT NEW HIGH MDM 60 MINUTES George Culver MD 1 [facility] [address] [place] [address] Lacey Arroyo MD 1 [place] [address] Referral ID Status Reason Start Date Expiration Date Visits Requested Visits Authorized [id number] Authorized PCP Requested Referral 07/01/2024 07/01/2025 1 1 Specialty Diagnoses / Procedures Referred By Contac t Referred To Contact CT IMAGING Diagnoses Inflammatory bowel disease Procedures CT ENTEROGRAPHY W IVCON CT ABD & PELVIS W/CONTRAST Lacey Arroyo MD [address] [place] [address] [place] [address] Referral ID Status Reason Start Date Expiration Date Visits Requested Visits Authorized [id number] Authorized Auto-Generat ed Referral 07/28/2024 08/27/2025 1 1 Chief Complaint and Reason for Visit Chief Complaint CERVICAL RAD FU PROC 3 MO FU E-ORDER Reason for Visit Colitis GI bleed Tubular adenoma of colon Abdominal pain Colitis GI bleed Abdominal pain Chief Complaint 3 MO FU E-ORDER LABSPEC CHRONIC SINUSITIS COLITIS Reason for Visit Colitis GI bleed Abdominal pain Chief Complaint 3 MO FU E-ORDER LABSPEC CHRONIC SINUSITIS COLITIS FU Reason for Visit GI bleed Abdominal pain Colitis Abdominal pain High urine total porphyrin History of liver failure Chief Complaint LABSPEC CHRONIC SINUSITIS COLITIS FU HX OF LIVER FAILURE Reason for Visit Abdominal pain High urine total porphyrin History of liver failure Chief Complaint CHRONIC SINUSITIS COLITIS FU HX OF LIVER FAILURE ABD PAIN Reason for Visit Abdominal pain High urine total porphyrin History of liver failure Chief Complaint HX OF LIVER FAILURE ABD PAIN INTRACTABLE NAUSEA/VOMITING, ABD PAIN 2/2 INTRACTABLE NAUSEA/VOMITING, ABD PAIN 2/2 INTRACTABLE NAUSEA/VOMITING, ABD PAIN 2/2 INTRACTABLE NAUSEA/VOMITING, ABD PAIN 2/2 INTRACTABLE NAUSEA/VOMITING, ABD PAIN 2/2 INTRACTABLE NAUSEA/VOMITING, ABD PAIN 2/2 INTRACTABLE NAUSEA/VOMITING, ABD PAIN 2/2 Reason for Visit Abdominal pain Thrombocytopenia Vomiting Mesenteric ischemia, chronic Chief Complaint ABD PAIN INTRACTABLE NAUSEA/VOMITING, ABD PAIN 2/2 INTRACTABLE NAUSEA/VOMITING, ABD PAIN 2/2 INTRACTABLE NAUSEA/VOMITING, ABD PAIN 2/2 INTRACTABLE NAUSEA/VOMITING, ABD PAIN 2/2 INTRACTABLE NAUSEA/VOMITING, ABD PAIN 2/2 PREOP INTRACTABLE NAUSEA/VOMITING, ABD PAIN 2/2 INTRACTABLE NAUSEA/VOMITING, ABD PAIN 2/2 INTRACTABLE NAUSEA/VOMITING, ABD PAIN 2/2 INTRACTABLE ABDOMINAL PAIN, NAUSEA INTRACTABLE ABDOMINAL PAIN, NAUSEA Reason for Visit Vomiting ALBERT (acute kidney injury) Dehydration Intractable abdominal pain Superior mesenteric artery syndrome Chief Complaint INTRACTABLE NAUSEA/V OMITING, ABD PAIN 2/2 PREOP INTRACTABLE NAUSEA/VOMITING, ABD PAIN 2/2 INTRACTABLE NAUSEA/VOMITING, ABD PAIN 2/2 INTRACTABLE NAUSEA/VOMITING, ABD PAIN 2/2 INTRACTABLE ABDOMINAL PAIN, NAUSEA INTRACTABLE ABDOMINAL PAIN, NAUSEA INTRACTABLE ABDOMINAL PAIN, NAUSEA F/U ABDOMINAL PAIN ABDOMINAL PAIN ABDOMINAL PAIN EPIGASTRIC PAIN Reason for Visit Vomiting ALBERT (acute kidney injury) Dehydration Intractable abdominal pain Choledocholithiasis with obstruction Abdominal pain High urine total porphyrin History of liver failure IBS (irritable bowel syndrome) Weight loss Abdominal pain Nausea Chief Complaint INTRACTABLE ABDOMINA L PAIN, NAUSEA INTRACTABLE ABDOMINAL PAIN, NAUSEA INTRACTABLE ABDOMINAL PAIN, NAUSEA F/U ABDOMINAL PAIN ABDOMINAL PAIN ABDOMINAL PAIN EPIGASTRIC PAIN Reason for Visit ALBERT (acute kidney in jury) Dehydration Intractable abdominal pain Choledocholithiasis with obstruction Abdominal pain High urine total porphyrin History of liver failure IBS (irritable bowel syndrome) Weight loss Abdominal pain Nausea Chief Complaint EPIGASTRIC PAIN ABD PAIN Chief Complaint ABD PAIN abd pain Chief Complaint Admit Date LEFT HIP PAIN August 05, 2024 3:56am ABD PAIN August 09, 2024 8:52pm ABD PAIN September 26, 2024 12:4 4pm Chief Complaint Admit Date ABD PAIN March 22, 2025 10:37am Medications Administered Section Inactive Administered Medications - up to 3 most recent administrations Medication Order MAR Action Action Date Dose Rate Site lactated ringers iv infusion 5-30 mL/hr, INTRAVENOUS, CONTINUOUS, Starting on Fri04/08/23 at 1000, Until Fri04/08/23 at 0954, Preprocedure New Bag/Syringe/Bottle 04/08/2023 9:52 AM EDT 30 mL/hr 30 mL/hr ondansetron (PF) 4 mg injection (ZOFRAN) 4 mg, INTRAVENOUS, PRE-OP ONCE, 1 dose, On Fri04/08/23 at 1030, Give IV push over 2 minutes, Preprocedure Given 04/08/2023 10:22 AM EDT 4 mg Additional Source Comments (unrecognized sect ion and content) No Status Records FoundNo Status Records FoundNo Status Records FoundNo Status Records FoundNo Status Records FoundNo Status Records FoundNo Status Records Found INFORMATION SOURCE (unrecogn ized section and content) DATE CREATED AUTHOR [facility]20[facility] DATE CREATED AUTHOR AUTHOR'S ORGANIZ ATION 02/08/2021 [facility] DATE CREATED AUTHOR AUTHOR'S ORGANIZ ATION 07/18/2022 [facility] DATE CREATED AUTHOR AUTHOR'S ORGANIZ ATION 11/05/2024 [facility] DATE CREATED AUTHOR AUTHOR'S ORGANIZ ATION 04/02/2025 [facility] DATE CREATED AUTHOR AUTHOR'S ORGANIZ ATION 04/07/2025 [facility] DATE CREATED AUTHOR AUTHOR'S ORGANIZ ATION 04/09/2025 [facility] Goals (unrecognized section and content) Goals may be documented in a n alternate sectionGoals may be documented in an alternate sectionGoals may be documented in an alternate sectionGoals may be documented in an alternate sectionGoals may be documented in an alternate sectionGoals may be documented in an alternate sectionGoals may be documented in an alternate sectionGoals may be documented in an alternate sectionGoals may be documented in an alternate sectionGoals may be documented in an alternate section Care Teams (unrecognized sec tion and content) Speech And Language Tutor Relationship Specialty Start Date End Date Hitesh Dai MD [address] [facility] [place] [address] PCP - General Family Medicine 05/25/19 Speech And Language Tutor Relationship Specialty Start Date End Date Hitesh Dai MD [address] [facility] [place] [phone] PCP - General Family Medicine 05/25/19 Speech And Language Tutor Relationship Specialty Start Date End Date Hitesh Dai MD [address] [facility] [place] [address] PCP - General Family Medicine 05/25/19 Speech And Language Tutor Relationship Specialty Start Date End Date Hitesh Dai MD [address] [facility] [place] [address] PCP - General Family Medicine 05/25/19 Speech And Language Tutor Relationship Specialty Start Date End Date Hitesh Dai MD [address] [facility] [place] [address] PCP - General Family Medicine 05/25/19 Speech And Language Tutor Relationship Specialty Start Date End Date Hitesh Dai MD [address] [facility] [place] [address] PCP - General Family Medicine 05/25/19 Speech And Language Tutor Relationship Specialty Start Date End Date Hitesh Dai MD PCP - General Family Practice 10/11/14 Hitesh Dai MD [address] [facility] [address] [place], [place] [phone] Family Practice 01/13/20 Speech And Language Tutor Relationship Specialty Start Date End Date Hitesh Dai MD [address] [facility] [place] [address] PCP - General Family Medicine 05/25/19 Gio Richardson DO [address] [place] [address] Consulting Physician Vascular Surgery 01/16/22 Speech And Language Tutor Relationship Specialty Start Date End Date Hitesh Dai MD [address] [facility] [place] [phone] PCP - General Family Medicine 05/25/19 Gio Richardson DO [address] [place] [address] Consulting Physician Vascular Surgery 01/16/22 Speech And Language Tutor Relationship Specialty Start Date End Date Hitesh Dai MD [address] [facility] [place] [address] PCP - General Family Medicine 05/25/19 Gio Richardson, DO [address] [place] [address] Consulting Physician Vascular Surgery 01/16/22 Speech And Language Tutor Relationship Specialty Start Date End Date Hitesh Dai MD [address] [facility] [place] [phone] PCP - General Family Medicine 05/25/19 Gio Richardson, DO [address] [place] [address] Consulting Physician Vascular Surgery 01/16/22 Speech And Language Tutor Relationship Specialty Start Date End Date Hitesh Dai MD [address] [facility] [place] [phone] PCP - General Family Medicine 05/25/19 Gio Richardson, DO [address] [place] [address] Consulting Physician Vascular Surgery 01/16/22 Team Status: Active Member Role Status Dates Dr. Hitesh Dai MD Family Provider Active Dr. Hitesh Dai MD Primary Care Provider Active Team Status: Inactive Member Role Status Dates Dr. Hitesh Dai MD Primary Care Provider, Referring Provider Active Dr. Kory Medina DO Attending Provider Active Team Status: Inactive Member Role Status Dates Dr. Hitesh Dai MD Primary Care Provider Active Dr. Kory Medina DO Attending Provider Active Team Status: Inactive Member Role Status Dates Dr. Hitesh Dai MD Primary Care Provider Active Dr. Tonio Gomez MD Attending Provider, Refe rring Provider Active Team Status: Inactive Member Role Status Dates Dr. Hitesh Dai MD Primary Care Provider Active Dr. Kory Medina DO Attending Provider, Referring Provider Active Team Status: Inactive Member Role Status Dates Dr. Hitesh Dai MD Primary Care Provider Active Dr. Elmo Hernandez DO Emergency Provider Active Team Status: Active Member Role Status Dates Dr. Hitesh Dai MD Primary Care Provider Active Dr. Kristine Parker MD Emergency Provider Active Dr. Cheryle Yarbrough DO Admit Provider, Att ending Provider, Other Provider Active Team Status: Active Member Role Status Dates Dr. Hitesh Dai MD Primary Care Provider Active Dr. Kristine Parker MD Emergency Provider Active Dr. Cheryle Yarbrough DO Admit Provider, Other Provider Ac tive Dr. Juan Lawrence MD Attending Provider, Other Provider Active Team Status: Active Member Role Status Dates Dr. Hitesh Dai MD Primary Care Provider Active Dr. Kristine Parker MD Emergency Provider Active Dr. Cheryle Yarbrough DO Admit Provider, Other Provider Ac tive Dr. Joan Elliott MD Other Provider Active Dr. Juan Lawrence MD Other Provider Active Dr. Kory Medina , Attending Provider, Other Prov ider Active Team Status: Active Member Role Status Dates Dr. Hitesh Dai MD Primary Care Provider Active Dr. Kristine Parker MD Emergency Provider Active Dr. Cheryle Yarbrough DO Admit Provider, Other Provider Ac tive Dr. Joan Elliott MD Attending Provider, Other Prov ider Active Dr. Juan Lawrence MD Other Provider Active Dr. Kory Medina DO Other Provider Active Team Status: Active Member Role Status Dates Dr. Hitesh Dai MD Primary Care Provider Active Dr. Kory Medina DO Attending Provider Active Team Status: Inactive Member Role Status Dates Dr. Hitesh Dai MD Primary Care Provider Active Dr. Elmo Hernandez DO Attending Provider, Emergency P shani Active Team Status: Inactive Member Role Status Dates Dr. iHtesh Dai MD Primary Care Provider Active Dr. Kristine Parker MD Emergency Provider Active Dr. Cheryle Yarbrough DO Admit Provider, Other Provider Ac tive Dr. Joan Elliott MD Attending Provider Active Dr. Juan Lawrence MD Other Provider Active Dr. Kory Medina DO Other Provider Active Speech And Language Tutor Relationship Specialty Start Date End Date Hitesh Dai MD PCP - General Family Medicine 10/11/14 Hitesh Dai MD [address] [place] [address] [place] [address] Family Medicine 01/13/20 Team Status: Active Member Role Status Dates Dr. Hitesh Dai MD Primary Care Provider Active Dr. Kristine Parker MD Emergency Provider Active Dr. Cheryle Yarbrough DO Admit Provider, Other Provider Ac tive Dr. Joan Elliott MD Referring Provider, Other Prov ider Active Dr. Juan Lawrence MD Other Provider Active Dr. Kory Medina DO Attending Provider, Other Prov ider Active Team Status: Active Member Role Status Dates Dr. Hitesh Dai MD Primary Care Provider Active Dr. Kory Medina DO Attending Provider Active Dr. Joan Elliott MD Referring Provider Active Team Status: Active Member Role Status Dates Dr. Hitesh Dai MD Primary Care Provider Active Dr. Trent Watkins MD Attending Provider, Referring Provider Active Team Status: Active Member Role Status Dates Dr. Hitesh Dai MD Primary Care Provider Active Dr. Aspen Hurst DO Emergency Provider Active Dr. Abigail Alonzo MD Admit Provider, Attending Provider, Other Provider Active Team Status: Inactive Member Role Status Dates Dr. Hitesh Dai MD Primary Care Provider Active Dr. Aspen Hurst DO Emergency Provider Active Dr. Abigail Alonzo MD Admit Provider, Other Provider Active Dr. Joan Elliott MD Attending Provider Active Speech And Language Tutor Relationship Specialty Start Date End Date Hitesh Dai MD PCP - General Family Medicine 10/11/14 Hitesh Dai MD [address] [place] [address] [place] [address] Family Medicine 01/13/20 Speech And Language Tutor Relationship Specialty Start Date End Date Hitesh Dai MD PCP - General Family Medicine 10/11/14 Hitesh Dai MD [address] [facility] [address] Family Medicine 01/13/20 Team Status: Active Member Role Status Dates Dr. Hitesh Dai MD Primary Care Provider Active Dr. Aspen Godman , DO Emergency Provider Active Dr. Abigail Alonzo MD Admit Provider, Other Provider Active Dr. Joan Elliott MD Attending Provider, Other Prov ider Active Team Status: Active Member Role Status Dates Dr. Hitesh Dai MD Primary Care Provider Active Dr. Kristine Parker MD Emergency Provider Active Dr. Popeye Camarena MD Admit Provider, A ttending Provider, Other Provider Active Team Status: Active Member Role Status Dates Dr. Hitesh Dai MD Primary Care Provider Active Dr. Kristine Parker MD Emergency Provider Active Dr. Popeye Camarena MD Admit Provider, Other Provider Active Dr. Pierre Jefferson , Attending Provider, Other Pro vider Active Team Status: Inactive Member Role Status Dates Dr. Hitesh Dai MD Primary Care Provider Active Dr. Kristine Parker MD Emergency Provider Active Dr. Popeye Camarena MD Admit Provider, Other Provider Active Dr. Pierre Jefferson , Attending Provider Active Team Status: Inactive Member Role Status Dates Dr. Hitesh Dai MD Primary Care Provider Active Dr. Mary Lewis MD Attending Provider, Referring Prov ider Active Team Status: Active Member Role Status Dates Dr. Hitesh Dai MD Primary Care Provider, Referring Provider Active Dr. Kory Medina DO Attending Provider, Other Prov ider Active Speech And Language Tutor Relationship Specialty Start Date End Date Hitesh Dai MD PCP - General Family Medicine 10/11/14 Hitesh Dai MD [address] [facility] [place] [address] Family Medicine 01/13/20 Speech And Language Tutor Relationship Specialty Start Date End Date Hitesh Dai MD PCP - General Family Medicine 10/11/14 Hitesh Dai MD [address] [facility] [address] Family Medicine 01/13/20 Speech And Language Tutor Relationship Specialty Start Date End Date Hitesh Dai MD PCP - General Family Medicine 10/11/14 Hitesh Dai MD [address] [facility] [address] Family Medicine 01/13/20 Speech And Language Tutor Relationship Specialty Start Date End Date Hitesh Dai MD PCP - General Family Medicine 10/11/14 Hitesh Dai MD [address] [facility] [address] Family Medicine 01/13/20 Speech And Language Tutor Relationship Specialty Start Date End Date Hitesh Dai MD PCP - General Family Medicine 10/11/14 Hitesh Dai MD [address] [place] [address] [place] [address] Family Medicine 01/13/20 Speech And Language Tutor Relationship Specialty Start Date End Date Hitesh Dai MD PCP - General Family Medicine 10/11/14 Hitesh Dai MD [address] [facility] [address] Family Medicine 01/13/20 Speech And Language Tutor Relationship Specialty Start Date End Date Hitesh Dai MD PCP - General Family Medicine 10/11/14 Hitesh Dai MD [address] [facility] [address] Family Medicine 01/13/20 Speech And Language Tutor Relationship Specialty Start Date End Date Hitesh Dai MD PCP - General Family Medicine 10/11/14 Hitesh Dai MD [address] [facility] [address] Family Medicine 01/13/20 Speech And Language Tutor Relationship Specialty Start Date End Date Hitesh Dai MD PCP - General Family Medicine 10/11/14 Hitesh Dai MD [address] [facility] [address] Family Medicine 01/13/20 Speech And Language Tutor Relationship Specialty Start Date End Date Hitesh Dai MD PCP - General Family Medicine 10/11/14 Hitesh Dai MD [address] [facility] [address] Family Medicine 01/13/20 Speech And Language Tutor Relationship Specialty Start Date End Date Hitesh Dai MD PCP - General Family Medicine 10/11/14 Hitesh Dai MD [address] [facility] [address] Family Medicine 01/13/20 Speech And Language Tutor Relationship Specialty Start Date End Date Hitesh Dai MD PCP - General Family Medicine 10/11/14 Hitesh Dai MD [address] [facility] [address] Family Medicine 01/13/20 Team Status: Inactive Member Role Status Dates Dr. Hitesh Dai MD Primary Care Provider Active Dr. Moris Angela MD Emergency Provider Active Team Status: Inactive Member Role Status Dates Dr. Hitesh Dai MD Primary Care Provider Active Dr. Moris Angela MD Attending Provider, Emergency Provider Active Speech And Language Tutor Relationship Specialty Start Date End Date Hitesh Dai MD PCP - General Family Medicine 10/11/14 Hitesh Dai MD [address] [facility] [address] Family Medicine 01/13/20 Speech And Language Tutor Relationship Specialty Start Date End Date Hitesh Dai MD PCP - General Family Medicine 10/11/14 Hitesh Dai MD [address] [facility] [address] Family Medicine 01/13/20 Speech And Language Tutor Relationship Specialty Start Date End Date Hitesh Dai MD PCP - General Family Medicine 10/11/14 Hitesh Dai MD [address] [facility] [address] Family Medicine 01/13/20 Speech And Language Tutor Relationship Specialty Start Date End Date Hitesh Dai MD PCP - General Family Medicine 10/11/14 Hitesh Dai MD [address] [facility] [address] Family Medicine 01/13/20 Speech And Language Tutor Relationship Specialty Start Date End Date Hitesh Dai MD PCP - General Family Medicine 10/11/14 Hitesh Dai MD [address] [facility] [address] Family Medicine 01/13/20 Speech And Language Tutor Relationship Specialty Start Date End Date Hitesh Dai MD PCP - General Family Medicine 10/11/14 Hitesh Dai MD [address] [facility] [address] Family Medicine 01/13/20 Speech And Language Tutor Relationship Specialty Start Date End Date Hitesh Dai MD PCP - General Family Medicine 10/11/14 Hitesh Dai MD [address] [place] [address] [place] [address] Family Medicine 01/13/20 Speech And Language Tutor Relationship Specialty Start Date End Date Hitesh Dai MD PCP - General Family Medicine 10/11/14 Hitesh Dai MD [address] [facility] [address] Family Medicine 01/13/20 Speech And Language Tutor Relationship Specialty Start Date End Date Hitesh Dai MD PCP - General Family Medicine 10/11/14 Hitesh Dai MD [address] [facility] [address] Family Medicine 01/13/20 Speech And Language Tutor Relationship Specialty Start Date End Date Hitesh Dai MD PCP - General Family Medicine 10/11/14 Hitesh Dai MD [address] [facility] [place] [address] Family Medicine 01/13/20 Speech And Language Tutor Relationship Specialty Start Date End Date Hitesh Dai MD PCP - General Family Medicine 10/11/14 Hitesh Dai MD [address] [facility] [place] [address] Family Medicine 01/13/20 Speech And Language Tutor Relationship Specialty Start Date End Date Hitesh Dai MD PCP - General Family Medicine 10/11/14 Hitesh Dai MD [address] [facility] [place] [address] Family Medicine 01/13/20 Team Status: Active Member Role Status Dates Dr. Hitesh Dai MD Primary Care Provider Active Team Status: Inactive Member Role Status Dates Dr. Hitesh Dai MD Primary Care Provider Active Start: August 05, 2024 End: August 05, 2024 Dr. Alexander Hernandez MD Attending Provider Active S tart: August 05, 2024 End: August 05, 2024 Dr. Alexander Hernandez MD Emergency Provider Active S tart: August 05, 2024 End: August 05, 2024 Team Status: Inactive Member Role Status Dates Dr. Hitesh Dai MD Primary Care Provider Active Start: August 09, 2024 End: August 10, 2024 Dr. Aspen Hurst DO Attending Provider Active Start: August 09, 2024 End: August 10, 2024 Dr. Aspen Hurst DO Emergency Provider Active Start: August 09, 2024 End: August 10, 2024 Team Status: Inactive Member Role Status Dates Dr. Hitesh Dai MD Primary Care Provider Active Start: September 26, 2024 End: September 26, 2024 Dr. Edmund Hubbard DO Emergency Provider Active Start: September 26, 2024 End: September 26, 2024 Speech And Language Tutor Relationship Specialty Start Date End Date Hitesh Dai MD PCP - General Family Medicine 10/11/14 Hitesh Dai MD [address] [facility] [address] Family Medicine 01/13/20 Speech And Language Tutor Relationship Specialty Start Date End Date Hitesh Dai MD PCP - General Family Medicine 10/11/14 Hitesh Dai MD [address] [place] [address] [place] [address] Family Medicine 01/13/20 Speech And Language Tutor Relationship Specialty Start Date End Date Hitesh Dai MD PCP - General Family Medicine 10/11/14 Hitesh Dai MD [address] [place] [address] [place] [address] Family Medicine 01/13/20 Speech And Language Tutor Relationship Specialty Start Date End Date Hitesh Dai MD PCP - General Family Medicine 10/11/14 Hitesh Dai MD [address] [facility] [place] [address] Family Medicine 01/13/20 Speech And Language Tutor Relationship Specialty Start Date End Date Hitesh Dai MD PCP - General Family Medicine 10/11/14 Hitesh Dai MD [address] [facility] [place] [address] Family Medicine 01/13/20 Speech And Language Tutor Relationship Specialty Start Date End Date Hitesh Dai MD PCP - General Family Medicine 10/11/14 Hitesh Dai MD [address] [facility] [place] [address] Family Medicine 01/13/20 Speech And Language Tutor Relationship Specialty Start Date End Date Hitesh Dai MD PCP - General Family Medicine 10/11/14 Hitesh Dai MD [address] [place] [address] Family Medicine 01/13/20 Speech And Language Tutor Relationship Specialty Start Date End Date Hitesh Dai MD PCP - General Family Medicine 10/11/14 Hitesh Dai MD [address] [place] [address] [facility] 01/13/20 Team Status: Active Member Role/Relationship Status Dates Dr. Hitesh Dai MD Primary care physician Active Team Status: Inactive Member Role/Relationship Status Dates Dr. Hitesh Dai MD Primary care physician Active Start: March 22, 2025 End: March 22, 2025 Dr. Alexander Hernandez [facility] Active Start: March 22, 2025 End: March 22, 2025 Reason for Visit (unrecogniz ed section and content) Reason Comments New Patient Specialty Diagnoses / Procedures Referred By Contac t Referred To Contact Neurologic Surgery Diagnoses Other cervical disc degeneration, unspecified cervical region Other spondylosis with radiculopathy, cervical region Spinal stenosis, cervical region George Avila, [address] [address] Referral ID Status Reason Start Date Expiration Date V isits Requested Visits Authorized [id number] New Request 10/03/2021 10/28/2022 1 1 Reason Comments New Patient 61 year old here to discuss surgery. Specialty Diagnoses / Procedures Referred By Contac t Referred To Contact Multispecialty Diagnoses Spinal stenosis of cervical region Neck pain Facet arthropathy of spine Marisa Castillo MD [address] [place] [address] Referral ID Status Reason Start Date Expiration Date V isits Requested Visits Authorized [id number] New Request 10/15/2021 11/09/2022 1 1 Reason Comments Pre-operative Consultation Specialty Diagnoses / Procedures Referred By Contac t Referred To Contact PreOp Diagnoses Cervicalgia Chronic pain syndrome Marielena Pierre MD [address] [place] [id number] Referral ID Status Reason Start Date Expiration Date V isits Requested Visits Authorized [id number] New Request 11/26/2021 12/21/2022 1 1 Specialty Diagnoses / Procedures Referred By Contac t Referred To Contact Diagnoses Cervicalgia Chronic pain syndrome Procedures MRI SPINE THORACIC WITHOUT CONTRAST CT MRI, DORSAL SPINE Marielena Pierre MD [address] [place] [address] [place] [address] Referral ID Status Reason Start Date Expiration Date Visits Re quested Visits Authorized [id number] Closed 11/26/2021 12/21/2022 1 1 Reason Comments Forms Reason Comments Follow-up 61 y.o male here for scs trial s/r. Reason Comments Wound Check Reason Comments Internal Referrals/resources Reason Comments Abdominal Pain Difficulty Swallowing Reason Comments Patient Question Paedodontist - Other Hospital Follow Up Reason Comments Paedodontist - Other Patient Update Reason Comments Patient Question Paedodontist - Other Reason Onset Date Comments Refill Request 02/13/2023 Refill Request 02/19/2023 Reason Comments Paedodontist - Other Hospital Follow Up Reason Comments Hospital Follow Up Paedodontist - Other Reason Comments Patient Question Reason Comments Hospital Follow Up Reason Comments Constipation Diarrhea New Patient Reason Comments Procedure Reason Comments Radiology CT Specialty Diagnoses / Procedures Referred By Contac t Referred To Contact CT IMAGING Diagnoses Atherosclerosis of aorta (HCC) Procedures CTA ABD/PEL W IVCON CT ANGIO ABD&PLVIS CNTRST MTRL W/WO CNTRST Mary Holloway MD [address] [address] [place] [address] Referral ID Status Reason Start Date Expiration Date V isits Requested Visits Authorized [id number] Closed Auto-Generate d Referral 12/02/2022 01/16/2023 1 1 Reason Comments Paedodontist - Other Hospital Follow Up Patient Update Reason Comments Follow Up scope Abdominal Pain Reason Comments Patient Update Reason Comments Follow Up Reason Comments Results Reason Comments Follow Up Reason Comments Established Patient Reason Comments Follow Up Keep having abdomina l pain attacks out of the blue Reason Comments New Patient Lower abdominal pain Specialty Diagnoses / Procedures Referred By Contac t Referred To Contact Gastroenterology Diagnoses Lower abdominal pain Procedures CONSULT TO GASTROENTEROLOGY OFFICE/OUTPATIENT NEW HIGH MDM 60 MINUTES Lacey Arroyo MD [address] [place] [address] Phone: tel: fax:[phone] Referral ID Status Reason Start Date Expiration Date V isits Requested Visits Authorized [id number] Closed PCP Requested Referral 08/31/2024 08/31/2025 1 1 Reason Comments Established Patient Reason Comments Schedule Surgery Reason Comments New Patient Epigastric pain Reason Comments New Patient Evaluation Medication Update Specialty Diagnoses / Procedures Referred By Contac t Referred To Contact Pain Management Diagnoses Abdominal wall pain Procedures CONSULT TO PAIN MGT OFFICE/OUTPATIENT NEW HIGH MDM 60 MINUTES Hitesh Price MD [address] [place] [address] Phone: tel: fax: Referral ID Status Reason Start Date Expiration Date V isits Requested Visits Authorized [id number] Closed PCP Requested Referral 12/03/2024 12/03/2025 1 1 Reason Comments Forms Medical clearance/me dication holding Reason Comments Abdominal Pain Source Comments (unrecognize d section and content) In the event this informatio n is protected by the Federal Confidentiality of Alcohol and Drug Abuse Patient Records regulations: The Federal rules restrict any use of the information to criminally investigate or prosecute any alcohol or drug abuse patient.[facility] the event this information is protected by the Federal Confidentiality of Alcohol and Drug Abuse Patient Records regulations: The Federal rules restrict any use of the information to criminally investigate or prosecute any alcohol or drug abuse patient.[facility]In the event this information is protected by the Federal Confidentiality of Alcohol and Drug Abuse Patient Records regulations: The Federal rules restrict any use of the information to criminally investigate or prosecute any alcohol or drug abuse patient.[facility]In the event this information is protected by the Federal Confidentiality of Alcohol and Drug Abuse Patient Records regulations: The Federal rules restrict any use of the information to criminally investigate or prosecute any alcohol or drug abuse patient.[facility]In the event this information is protected by the Federal Confidentiality of Alcohol and Drug Abuse Patient Records regulations: The Federal rules restrict any use of the information to criminally investigate or prosecute any alcohol or drug abuse patient.[facility]In the event this information is protected by the Federal Confidentiality of Alcohol and Drug Abuse Patient Records regulations: The Federal rules restrict any use of the information to criminally investigate or prosecute any alcohol or drug abuse patient.[facility]In the event this information is protected by the Federal Confidentiality of Alcohol and Drug Abuse Patient Records regulations: The Federal rules restrict any use of the information to criminally investigate or prosecute any alcohol or drug abuse patient.[facility]In the event this information is protected by the Federal Confidentiality of Alcohol and Drug Abuse Patient Records regulations: The Federal rules restrict any use of the information to criminally investigate or prosecute any alcohol or drug abuse patient.[facility]In the event this information is protected by the Federal Confidentiality of Alcohol and Drug Abuse Patient Records regulations: The Federal rules restrict any use of the information to criminally investigate or prosecute any alcohol or drug abuse patient.[facility]In the event this information is protected by the Federal Confidentiality of Alcohol and Drug Abuse Patient Records regulations: The Federal rules restrict any use of the information to criminally investigate or prosecute any alcohol or drug abuse patient.[facility] HospitalIn the event this information is protected by the Federal Confidentiality of Alcohol and Drug Abuse Patient Records regulations: The Federal rules restrict any use of the information to criminally investigate or prosecute any alcohol or drug abuse patient.[facility] HospitalIn the event this information is protected by the Federal Confidentiality of Alcohol and Drug Abuse Patient Records regulations: The Federal rules restrict any use of the information to criminally investigate or prosecute any alcohol or drug abuse patient.[facility] HospitalIn the event this information is protected by the Federal Confidentiality of Alcohol and Drug Abuse Patient Records regulations: The Federal rules restrict any use of the information to criminally investigate or prosecute any alcohol or drug abuse patient.[facility] HospitalIn the event this information is protected by the Federal Confidentiality of Alcohol and Drug Abuse Patient Records regulations: The Federal rules restrict any use of the information to criminally investigate or prosecute any alcohol or drug abuse patient.[facility] HospitalIn the event this information is protected by the Federal Confidentiality of Alcohol and Drug Abuse Patient Records regulations: The Federal rules restrict any use of the information to criminally investigate or prosecute any alcohol or drug abuse patient.[facility] HospitalIn the event this information is protected by the Federal Confidentiality of Alcohol and Drug Abuse Patient Records regulations: The Federal rules restrict any use of the information to criminally investigate or prosecute any alcohol or drug abuse patient.[facility] HospitalIn the event this information is protected by the Federal Confidentiality of Alcohol and Drug Abuse Patient Records regulations: The Federal rules restrict any use of the information to criminally investigate or prosecute any alcohol or drug abuse patient.[facility] HospitalIn the event this information is protected by the Federal Confidentiality of Alcohol and Drug Abuse Patient Records regulations: The Federal rules restrict any use of the information to criminally investigate or prosecute any alcohol or drug abuse patient.[facility] HospitalIn the event this information is protected by the Federal Confidentiality of Alcohol and Drug Abuse Patient Records regulations: The Federal rules restrict any use of the information to criminally investigate or prosecute any alcohol or drug abuse patient.[facility] HospitalIn the event this information is protected by the Federal Confidentiality of Alcohol and Drug Abuse Patient Records regulations: The Federal rules restrict any use of the information to criminally investigate or prosecute any alcohol or drug abuse patient.[facility] HospitalIn the event this information is protected by the Federal Confidentiality of Alcohol and Drug Abuse Patient Records regulations: The Federal rules restrict any use of the information to criminally investigate or prosecute any alcohol or drug abuse patient.[facility] HospitalIn the event this information is protected by the Federal Confidentiality of Alcohol and Drug Abuse Patient Records regulations: The Federal rules restrict any use of the information to criminally investigate or prosecute any alcohol or drug abuse patient.[facility] HospitalIn the event this information is protected by the Federal Confidentiality of Alcohol and Drug Abuse Patient Records regulations: The Federal rules restrict any use of the information to criminally investigate or prosecute any alcohol or drug abuse patient.[facility] HospitalIn the event this information is protected by the Federal Confidentiality of Alcohol and Drug Abuse Patient Records regulations: The Federal rules restrict any use of the information to criminally investigate or prosecute any alcohol or drug abuse patient.[facility] HospitalIn the event this information is protected by the Federal Confidentiality of Alcohol and Drug Abuse Patient Records regulations: The Federal rules restrict any use of the information to criminally investigate or prosecute any alcohol or drug abuse patient.[facility]In the event this information is protected by the Federal Confidentiality of Alcohol and Drug Abuse Patient Records regulations: The Federal rules restrict any use of the information to criminally investigate or prosecute any alcohol or drug abuse patient.[facility] HospitalIn the event this information is protected by the Federal Confidentiality of Alcohol and Drug Abuse Patient Records regulations: The Federal rules restrict any use of the information to criminally investigate or prosecute any alcohol or drug abuse patient.[facility] HospitalIn the event this information is protected by the Federal Confidentiality of Alcohol and Drug Abuse Patient Records regulations: The Federal rules restrict any use of the information to criminally investigate or prosecute any alcohol or drug abuse patient.[facility] HospitalIn the event this information is protected by the Federal Confidentiality of Alcohol and Drug Abuse Patient Records regulations: The Federal rules restrict any use of the information to criminally investigate or prosecute any alcohol or drug abuse patient.[facility] HospitalIn the event this information is protected by the Federal Confidentiality of Alcohol and Drug Abuse Patient Records regulations: The Federal rules restrict any use of the information to criminally investigate or prosecute any alcohol or drug abuse patient.[facility] HospitalIn the event this information is protected by the Federal Confidentiality of Alcohol and Drug Abuse Patient Records regulations: The Federal rules restrict any use of the information to criminally investigate or prosecute any alcohol or drug abuse patient.[facility] HospitalIn the event this information is protected by the Federal Confidentiality of Alcohol and Drug Abuse Patient Records regulations: The Federal rules restrict any use of the information to criminally investigate or prosecute any alcohol or drug abuse patient.[facility] HospitalIn the event this information is protected by the Federal Confidentiality of Alcohol and Drug Abuse Patient Records regulations: The Federal rules restrict any use of the information to criminally investigate or prosecute any alcohol or drug abuse patient.[facility] HospitalIn the event this information is protected by the Federal Confidentiality of Alcohol and Drug Abuse Patient Records regulations: The Federal rules restrict any use of the information to criminally investigate or prosecute any alcohol or drug abuse patient.[facility] HospitalIn the event this information is protected by the Federal Confidentiality of Alcohol and Drug Abuse Patient Records regulations: The Federal rules restrict any use of the information to criminally investigate or prosecute any alcohol or drug abuse patient.[facility] HospitalIn the event this information is protected by the Federal Confidentiality of Alcohol and Drug Abuse Patient Records regulations: The Federal rules restrict any use of the information to criminally investigate or prosecute any alcohol or drug abuse patient.[facility] HospitalIn the event this information is protected by the Federal Confidentiality of Alcohol and Drug Abuse Patient Records regulations: The Federal rules restrict any use of the information to criminally investigate or prosecute any alcohol or drug abuse patient.[facility] HospitalIn the event this information is protected by the Federal Confidentiality of Alcohol and Drug Abuse Patient Records regulations: The Federal rules restrict any use of the information to criminally investigate or prosecute any alcohol or drug abuse patient.[facility] HospitalIn the event this information is protected by the Federal Confidentiality of Alcohol and Drug Abuse Patient Records regulations: The Federal rules restrict any use of the information to criminally investigate or prosecute any alcohol or drug abuse patient.[facility] HospitalIn the event this information is protected by the Federal Confidentiality of Alcohol and Drug Abuse Patient Records regulations: The Federal rules restrict any use of the information to criminally investigate or prosecute any alcohol or drug abuse patient.[facility] HospitalIn the event this information is protected by the Federal Confidentiality of Alcohol and Drug Abuse Patient Records regulations: The Federal rules restrict any use of the information to criminally investigate or prosecute any alcohol or drug abuse patient.[facility] HospitalIn the event this information is protected by the Federal Confidentiality of Alcohol and Drug Abuse Patient Records regulations: The Federal rules restrict any use of the information to criminally investigate or prosecute any alcohol or drug abuse patient.[facility] HospitalIn the event this information is protected by the Federal Confidentiality of Alcohol and Drug Abuse Patient Records regulations: The Federal rules restrict any use of the information to criminally investigate or prosecute any alcohol or drug abuse patient.[facility] HospitalIn the event this information is protected by the Federal Confidentiality of Alcohol and Drug Abuse Patient Records regulations: The Federal rules restrict any use of the information to criminally investigate or prosecute any alcohol or drug abuse patient.[facility] HospitalIn the event this information is protected by the Federal Confidentiality of Alcohol and Drug Abuse Patient Records regulations: The Federal rules restrict any use of the information to criminally investigate or prosecute any alcohol or drug abuse patient.[facility] HospitalIn the event this information is protected by the Federal Confidentiality of Alcohol and Drug Abuse Patient Records regulations: The Federal rules restrict any use of the information to criminally investigate or prosecute any alcohol or drug abuse patient.[facility] HospitalIn the event this information is protected by the Federal Confidentiality of Alcohol and Drug Abuse Patient Records regulations: The Federal rules restrict any use of the information to criminally investigate or prosecute any alcohol or drug abuse patient.[facility] HospitalIn the event this information is protected by the Federal Confidentiality of Alcohol and Drug Abuse Patient Records regulations: The Federal rules restrict any use of the information to criminally investigate or prosecute any alcohol or drug abuse patient.[facility] HospitalIn the event this information is protected by the Federal Confidentiality of Alcohol and Drug Abuse Patient Records regulations: The Federal rules restrict any use of the information to criminally investigate or prosecute any alcohol or drug abuse patient.[facility] HospitalIn the event this information is protected by the Federal Confidentiality of Alcohol and Drug Abuse Patient Records regulations: The Federal rules restrict any use of the information to criminally investigate or prosecute any alcohol or drug abuse patient.[facility] HospitalIn the event this information is protected by the Federal Confidentiality of Alcohol and Drug Abuse Patient Records regulations: The Federal rules restrict any use of the information to criminally investigate or prosecute any alcohol or drug abuse patient.[facility] HospitalIn the event this information is protected by the Federal Confidentiality of Alcohol and Drug Abuse Patient Records regulations: The Federal rules restrict any use of the information to criminally investigate or prosecute any alcohol or drug abuse patient.[facility] HospitalIn the event this information is protected by the Federal Confidentiality of Alcohol and Drug Abuse Patient Records regulations: The Federal rules restrict any use of the information to criminally investigate or prosecute any alcohol or drug abuse patient.[facility]In the event this information is protected by the Federal Confidentiality of Alcohol and Drug Abuse Patient Records regulations: The Federal rules restrict any use of the information to criminally investigate or prosecute any alcohol or drug abuse patient.[facility] HospitalIn the event this information is protected by the Federal Confidentiality of Alcohol and Drug Abuse Patient Records regulations: The Federal rules restrict any use of the information to criminally investigate or prosecute any alcohol or drug abuse patient.[facility] HospitalIn the event this information is protected by the Federal Confidentiality of Alcohol and Drug Abuse Patient Records regulations: The Federal rules restrict any use of the information to criminally investigate or prosecute any alcohol or drug abuse patient.[facility] HospitalIn the event this information is protected by the Federal Confidentiality of Alcohol and Drug Abuse Patient Records regulations: The Federal rules restrict any use of the information to criminally investigate or prosecute any alcohol or drug abuse patient.[facility] HospitalIn the event this information is protected by the Federal Confidentiality of Alcohol and Drug Abuse Patient Records regulations: The Federal rules restrict any use of the information to criminally investigate or prosecute any alcohol or drug abuse patient.[facility]In the event this information is protected by the Federal Confidentiality of Alcohol and Drug Abuse Patient Records regulations: The Federal rules restrict any use of the information to criminally investigate or prosecute any alcohol or drug abuse patient.[facility]In the event this information is protected by the Federal Confidentiality of Alcohol and Drug Abuse Patient Records regulations: The Federal rules restrict any use of the information to criminally investigate or prosecute any alcohol or drug abuse patient.[facility] HospitalIn the event this information is protected by the Federal Confidentiality of Alcohol and Drug Abuse Patient Records regulations: The Federal rules restrict any use of the information to criminally investigate or prosecute any alcohol or drug abuse patient.[facility] HospitalIn the event this information is protected by the Federal Confidentiality of Alcohol and Drug Abuse Patient Records regulations: The Federal rules restrict any use of the information to criminally investigate or prosecute any alcohol or drug abuse patient.[facility] HospitalIn the event this information is protected by the [facility] Confidentiality of Alcohol and Drug Abuse Patient Records regulations: The Federal rules restrict any use of the information to criminally investigate or prosecute any alcohol or drug abuse patient.[facility] HospitalIn the event this information is protected by the Federal Confidentiality of Alcohol and Drug Abuse Patient Records regulations: The Federal rules restrict any use of the information to criminally investigate or prosecute any alcohol or drug abuse patient.[facility] Scheduled Active and Recently Administ ered Medications (unrecognized section and content) Medication Order 01/30/2022 01/31/2022 02/01/2022 povidone-iodine (3M SKIN and NASAL ANTISEPTIC) 5 % topical solution 1 Application (COMPLETED) 1 Application, Nasal, 60 MIN PRE-OP, 1 dose, On Fri02/01/22 at 0745, (1) Use a tissue to clean the inside of both nostrils including the inside tip of the nostril. (2) Tilting the bottle slightly, dip one swab into solution and stir vigorously for 10 seconds. Withdraw the swab slowly to avoid wiping solution off during removal. (3) Insert swab comfortably into one nostril and rotate for 15 seconds covering all surfaces. Then focus on the inside tip of nostril and rotate for an additional 15 seconds. (4) Using a new swab, repeat steps 2 & 3 with the other nostril. (5) Repeat the application in both nostrils using a fresh swab each time. (6) Do not blow nose. If solution drips out of nose, it can be lightly dabbed with a tissue., Pre-op/Pre-Proc 0808 (Given - Provid er: Delores Ventura RN) Continuous Medication Order 01/30/2022 01/31/2022 02/01/2022 sodium chloride 0.9% IV solution Intravenous, at 50 mL/hr, CONTINUOUS, Starting on Fri02/01/22 at 0745, Until Fri02/01/22 at 1403, Pre-op/Pre-Proc 0808 ($$New Bag$$ - Provider: Delores Ventura RN)0949 (Paused - Provider: FRANKLIN Jarquin - Comment: Switch to gravity)0950 (Restarted - Provider: FRANKLIN Jarquin)0951 (Stopped - Provider: FRANKLIN Jarquin) sodium chloride 0.9% IV solution Intravenous, at 75 mL/hr, CONTINUOUS, Starting on Fri02/01/22 at 1015, Until Fri02/01/22 at 1403, Post-op/Post-Proc 1115 (Stopped - Prov ider: Zee Valenzuela RN) PRN Medication Order 01/30/2022 01/31/2022 02/01/2022 acetaminophen (TYLENOL) tablet 650 mg 650 mg, Oral, EVERY 4 HOURS NEEDED, Starting on Fri02/01/22 at 1014, Until Fri02/01/22 at 1403, Mild Pain, Maximum dose of acetaminophen is 4000 mg from all sources in 24 hours., Post-op/Post-Proc bupivacaine (PF) (MARCAINE) 0.75 % injection (CANCELED) NEEDED, Starting on Fri02/01/22 at 0957, Until Fri02/01/22 at 1022, Intra-op/Intra-Proc 0957 (Given - Provid er: Marielena Pierre MD - Comment: To sterile field with lidocaine/epinephrine) ceFAZolin (ANCEF) 2 g in dextrose 100 mL premix IVPB (COMPLETED) 2 g, Intravenous, Administer over 30 Minutes, OFFICE WORKER TO PROCEDURE, 1 dose, Starting on Fri02/01/22 at 0732, Until Discontinued, Other, Surgical Prophylaxis, Initiate antibiotic administration 30-60 minutes prior to surgical incision and complete administration prior to surgical incision., Pre-op/Pre-Proc 0932 (Given - Provid er: Aly Gee, REBA-SENIOR ADMINISTRATIVE SERVICES OFFICER) fentaNYL (SUBLIMAZE) injection 25 mcg 25 mcg, Intravenous, Administer over 2 Minutes, EVERY 5 MINUTES NEEDED, Starting on Fri02/01/22 at 1015, Until Fri02/01/22 at 1403, pain, Recovery hydrALAZINE (APRESOLINE) injection 10 mg 10 mg, Intravenous, EVERY 30 MINUTES NEEDED, Starting on Fri02/01/22 at 1015, Until Fri02/01/22 at 1403, SBP > 180 SECOND line HTN, use if HR < 60., Administer over 2 minutes. Use if HR < 60. May give a total of 20 mg while in PACU. Notify MD if BP still uncontrolled after 2 mg and no other antihypertensive agents are ordered., Recovery labetalol (NORMODYNE) injection 5 mg 5 mg, Intravenous, EVERY 15 MINUTES NEEDED, Starting on Fri02/01/22 at 1015, Until Fri02/01/22 at 1403, SBP > 180 FIRST line HTN. Hold if HR < 60 and give SECOND line agent., May give a total of 20 mg while in PACU. If blood pressure uncontrolled after 20mg of labetalol administered, use second line agent or notify MD. For vials: labetalol should be treated as a SINGLE USE VIAL. Discard remaining contents after one use., Recovery lidocaine-epinephrine 2 %-1:233798 injection (CANCELED) NEEDED, Starting on Fri02/01/22 at 0958, Until Fri02/01/22 at 1022, Intra-op/Intra-Proc 0958 (Given - Provid er: Marielena Pierre MD - Comment: To sterile field with bupivacaine) ondansetron (ZOFRAN) tablet 4 mg(Linked Group 1) 4 mg, Oral, EVERY 6 HOURS NEEDED, Starting on Fri02/01/22 at 1014, Until Fri02/01/22 at 1403, Nausea / Vomiting, Post-op/Post-Proc ondansetron 4mg/2ml (ZOFRAN) injection 4 mg 4 mg, Intravenous, ONCE NEEDED, 1 dose, Starting on Fri02/01/22 at 1015, Until Fri02/01/22 at 1403, Nausea / Vomiting, FIRST line antiemetic, Do not administer within 6 hours of intra-operative dose., Recovery ondansetron 4mg/2ml (ZOFRAN) injection 4 mg(Linked Group 1) 4 mg, Intravenous, EVERY 4 HOURS NEEDED, Starting on Fri02/01/22 at 1014, Until Fri02/01/22 at 1403, Nausea / Vomiting, Post-op/Post-Proc oxyCODONE (ROXICODONE) tablet 5 mg 5 mg, Oral, EVERY 4 HOURS NEEDED, Starting on Fri02/01/22 at 1015, Until Fri02/01/22 at 1403, Moderate Pain, Recovery oxyCODONE-acetaminophen (PERCOCET) 5-325 MG per tablet 1 tablet(Linked Group 2) 1 tablet, Oral, EVERY 4 HOURS NEEDED, Starting on Fri02/01/22 at 1014, Until Fri02/01/22 at 1403, Moderate Pain, Use as initial dose. Higher dose may be administered if lower dose was previously documented as ineffective and did not result in adverse effects (RR<10, decrease in level of consciousness)., Post-op/Post-Proc oxyCODONE-acetaminophen (PERCOCET) 5-325 MG per tablet 2 tablet(Linked Group 2) 2 tablet, Oral, EVERY 4 HOURS NEEDED, Starting on Fri02/01/22 at 1014, Until Fri02/01/22 at 1403, Moderate Pain, Higher dose may be administered if lower dose was previously documented as ineffective and did not result in adverse effects (RR<10, decrease in level of consciousness). Decrease back to lower dose if patient has adverse effects, or no PRN used in previous 12 hours., Post-op/Post-Proc Vancomycin HCl in NaCl (VANCOCIN) 1,000 mg in 200 ml NS premix IVPB (COMPLETED) 1,000 mg, Intravenous, Administer over 60 Minutes, OFFICE WORKER TO PROCEDURE, 1 dose, Starting on Fri02/01/22 at 0740, Until Discontinued, Other, Surgical Prophylaxis, Infusion must complete prior to surgical incision. Initiate antibiotic administration 60-120 minutes prior to surgical incision (depending on Administer Over Time). Extravasation Risk, Pre-op/Pre-Proc 0821 ($$New Bag$$ - Provider: Delores Ventura RN) Linked Groups Order Group 1: ondansetron 4mg/2ml (ZOFRAN) injection 4 mgJump to med 4 mg, Intravenous, EVERY 4 HOURS NEEDED, Starting on Fri02/01/22 at 1014, Until Fri02/01/22 at 1403, Nausea / Vomiting, Post-op/Post-Proc Or ondansetron (ZOFRAN) tablet 4 mgJump to med 4 mg, Oral, EVERY 6 HOURS NEEDED, Starting on Fri02/01/22 at 1014, Until Fri02/01/22 at 1403, Nausea / Vomiting, Post-op/Post-Proc Group 2: oxyCODONE-acetaminophen (PERCOCET) 5-325 MG per tablet 1 tabletJump to med 1 tablet, Oral, EVERY 4 HOURS NEEDED, Starting on Fri02/01/22 at 1014, Until Fri02/01/22 at 1403, Moderate Pain
Use as initial dose. Higher dose may be administered if lower dose was previously documented as ineffective and did not result in adverse effects (RR<10, decrease in level of consciousness).
Post-op/Post-Proc Or oxyCODONE-acetaminophen (PERCOCET) 5-325 MG per tablet 2 tabletJump to med 2 tablet, Oral, EVERY 4 HOURS NEEDED, Starting on Fri02/01/22 at 1014, Until Fri02/01/22 at 1403, Moderate Pain
Higher dose may be administered if lower dose was previously documented as ineffective and did not result in adverse effects (RR<10, decrease in level of consciousness). Decrease back to lower dose if patient has adverse effects, or no PRN used in previous 12 hours.
Post-op/Post-Proc Scheduled Medication Order 02/27/2022 02/28/2022 03/01/2022 povidone-iodine (3M SKIN and NASAL ANTISEPTIC) 5 % topical solution 1 Application (COMPLETED) 1 Application, Nasal, 60 MIN PRE-OP, 1 dose, On Fri03/01/22 at 0530, (1) Use a tissue to clean the inside of both nostrils including the inside tip of the nostril. (2) Tilting the bottle slightly, dip one swab into solution and stir vigorously for 10 seconds. Withdraw the swab slowly to avoid wiping solution off during removal. (3) Insert swab comfortably into one nostril and rotate for 15 seconds covering all surfaces. Then focus on the inside tip of nostril and rotate for an additional 15 seconds. (4) Using a new swab, repeat steps 2 & 3 with the other nostril. (5) Repeat the application in both nostrils using a fresh swab each time. (6) Do not blow nose. If solution drips out of nose, it can be lightly dabbed with a tissue., Pre-op/Pre-Proc 0558 (Given - Provid er: Angelita Hernández RN) sodium citrate-citric acid oral solution 15 mL (COMPLETED) 15 mL, Oral, ONCE, 1 dose, On Fri03/01/22 at 0645, Pre-op/Pre-Proc 0642 (Given - Provid er: Angelita Hernández RN) Continuous Medication Order 02/27/2022 02/28/2022 03/01/2022 lactated ringers IV solution Intravenous, at 20 mL/hr, CONTINUOUS, Starting on Fri03/01/22 at 0900, Until Fri03/01/22 at 1702, Recovery 0900 (Canceled Entry - Provider: System Discharge - Comment: Automatically canceled at discontinue of medication order) sodium chloride 0.9% IV solution Intravenous, at 50 mL/hr, CONTINUOUS, Starting on Fri03/01/22 at 0530, Until Fri03/01/22 at 1702, Pre-op/Pre-Proc 0558 ($$New Bag$$ - Provider: Angelita Hernández RN)0834 (Rate/Dose Change - Provider: FRANKLIN Bess)0848 (Rate/Dose Change - Provider: FRANKLIN Bess)1130 (Stopped - Provider: Delmer Noyola RN) sodium chloride 0.9% IV solution Intravenous, at 75 mL/hr, CONTINUOUS, Starting on Fri03/01/22 at 0900, Until Fri03/01/22 at 1702, Post-op/Post-Proc 0900 (Canceled Entry - Provider: System Discharge - Comment: Automatically canceled at discontinue of medication order) PRN Medication Order 02/27/2022 02/28/2022 03/01/2022 acetaminophen (TYLENOL) tablet 650 mg 650 mg, Oral, EVERY 4 HOURS NEEDED, Starting on Fri03/01/22 at 0855, Until Fri03/01/22 at 1702, Mild Pain, Maximum dose of acetaminophen is 4000 mg from all sources in 24 hours., Post-op/Post-Proc bupivacaine (PF) (MARCAINE) 0.75 % injection (CANCELED) NEEDED, Starting on Fri03/01/22 at 0752, Until Fri03/01/22 at 0853, Intra-op/Intra-Proc 0752 (Given - Provid er: Marielena Pierre MD - Comment: mixed 2% lido with epi with 0.75% bupivacaine for local to back) ceFAZolin (ANCEF) 2 g in dextrose 100 mL premix IVPB (COMPLETED) 2 g, Intravenous, Administer over 30 Minutes, OFFICE WORKER TO PROCEDURE, 1 dose, Starting on Fri03/01/22 at 0525, Until Discontinued, Other, Surgical Prophylaxis, Initiate antibiotic administration 30-60 minutes prior to surgical incision and complete administration prior to surgical incision., Pre-op/Pre-Proc 0727 (Given - Provid er: Earlene Beltran APRN-SENIOR ADMINISTRATIVE SERVICES OFFICER) fentaNYL (SUBLIMAZE) injection 25 mcg 25 mcg, Intravenous, Administer over 2 Minutes, EVERY 10 MINUTES NEEDED, 4 doses, Starting on Fri03/01/22 at 0743, Until Fri03/01/22 at 1702, Moderate Pain, Recovery 0919 (Given - Provid er: Delmer Noyola RN) haloperidol lactate (HALDOL) injection 1 mg 1 mg, Intravenous, ONCE NEEDED, 1 dose, Starting on Fri03/01/22 at 0743, Until Fri03/01/22 at 1702, Refractory Nausea/vomiting, Use if patient still experiencing nausea/vomiting as 1st line medications for nausea unless medical contraindication. Do not administer within 6 hours of intra-operative dose., Recovery HYDROmorphone (DILAUDID) injection 0.5 mg(Linked Group 1) 0.5 mg, Intravenous, EVERY 5 MINUTES NEEDED, Starting on Fri03/01/22 at 0743, Until Fri03/01/22 at 1702, Severe Pain, Use as initial dose. Higher dose may be administered if lower dose did not result in adverse effects (RR<10, decrease in level of consciousness) and was previously documented as ineffective. May give a total of 4mg in PACU., Recovery HYDROmorphone (DILAUDID) injection 1 mg(Linked Group 1) 1 mg, Intravenous, EVERY 5 MINUTES NEEDED, Starting on Fri03/01/22 at 0743, Until Fri03/01/22 at 1702, Severe Pain, Higher dose may be administered if lower dose did not result in adverse effects (RR<10, decrease in level of consciousness) and was previously documented as ineffective. Decrease back to lower dose if patient has adverse effects, or no PRN used in previous 30 minutes. May give a total of 4mg in PACU ., Recovery labetalol (NORMODYNE) injection 5 mg 5 mg, Intravenous, EVERY 15 MINUTES NEEDED, Starting on Fri03/01/22 at 0743, Until Fri03/01/22 at 1702, FIRST line HTN. , For SBP > 170 Hold if HR < 60 and give SECOND line agent. May give a total of 20 mg while in PACU. If blood pressure uncontrolled after 20mg of labetalol administered, use second line agent or notify MD. For vials: labetalol should be treated as a SINGLE USE VIAL. Discard remaining contents after one use., Recovery lidocaine-epinephrine 2 %-1:[id number] injection (CANCELED) NEEDED, Starting on Fri03/01/22 at 0752, Until Fri03/01/22 at 0853, Intra-op/Intra-Proc 0752 (Given - Provid er: Marielena Pierre MD - Comment: mixed 2% lido with epi with 0.75% bupivacaine for local to back) meperidine (DEMEROL) injection 12.5 mg 12.5 mg, Intravenous, EVERY 30 MINUTES NEEDED, 2 doses, Starting on Fri03/01/22 at 0743, Until Fri03/01/22 at 1702, Other, shakes, May give total of 2 doses while in PACU. Keep respiratory rate greater than 10., Recovery ondansetron (ZOFRAN) tablet 4 mg(Linked Group 2) 4 mg, Oral, EVERY 6 HOURS NEEDED, Starting on Fri03/01/22 at 0855, Until Fri03/01/22 at 1702, Nausea / Vomiting, Post-op/Post-Proc ondansetron 4mg/2ml (ZOFRAN) injection 4 mg (COMPLETED) 4 mg, Intravenous, ONCE NEEDED, 1 dose, Starting on Fri03/01/22 at 0638, Until Fri03/01/22 at 2359, Nausea / Vomiting, Pre-op/Pre-Proc 0643 (Given - Provid er: Angelita Hernández RN) ondansetron 4mg/2ml (ZOFRAN) injection 4 mg(Linked Group 2) 4 mg, Intravenous, EVERY 4 HOURS NEEDED, Starting on Fri03/01/22 at 0855, Until Fri03/01/22 at 1702, Nausea / Vomiting, Post-op/Post-Proc oxyCODONE (ROXICODONE) tablet 5 mg 5 mg, Oral, EVERY 10 MINUTES NEEDED, 2 doses, Starting on Fri03/01/22 at 0743, Until Fri03/01/22 at 1702, Moderate Pain, for d/c pain, Recovery 0915 (Given - Provid er: Delmer Noyola RN) oxyCODONE HCl (ROXICODONE) tablet 10 mg 10 mg, Oral, ONCE NEEDED, 1 dose, Starting on Fri03/01/22 at 0743, Until Fri03/01/22 at 1702, Severe Pain, for d/c pain, Recovery oxyCODONE-acetaminophen (PERCOCET) 5-325 MG per tablet 1 tablet(Linked Group 3) 1 tablet, Oral, EVERY 4 HOURS NEEDED, Starting on Fri03/01/22 at 0855, Until Fri03/01/22 at 1702, Moderate Pain, Use as initial dose. Higher dose may be administered if lower dose was previously documented as ineffective and did not result in adverse effects (RR<10, decrease in level of consciousness)., Post-op/Post-Proc oxyCODONE-acetaminophen (PERCOCET) 5-325 MG per tablet 2 tablet(Linked Group 3) 2 tablet, Oral, EVERY 4 HOURS NEEDED, Starting on Fri03/01/22 at 0855, Until Fri03/01/22 at 1702, Moderate Pain, Higher dose may be administered if lower dose was previously documented as ineffective and did not result in adverse effects (RR<10, decrease in level of consciousness). Decrease back to lower dose if patient has adverse effects, or no PRN used in previous 12 hours., Post-op/Post-Proc promethazine (PHENERGAN) injection 6.25 mg 6.25 mg, Intravenous, EVERY 1 HOUR NEEDED, 2 doses, Starting on Fri03/01/22 at 0743, Until Fri03/01/22 at 1702, Nausea / Vomiting, SECOND line antiemetic, Do not administer within 6 hours of intra-operative dose. Extravasation Risk. If given via IV route: dilute dose with 10mL normal saline and inject through a running IV or line over 5 minutes OR if no active IV or line is saline-dwelled dilute dose with 20mL normal saline and administer over 5 minutes. AVOID Intra-arterial administration; necrosis & gangrene have resulted. Hand, wrist or foot veins SHOULD BE AVOIDED., Recovery vancomycin (VANCOCIN) 750 mg in sodium chloride 0.9%, with overfill 282.5 mL (total volume) IVPB (COMPLETED) 750 mg, Intravenous, Administer over 1 Hours, OFFICE WORKER TO PROCEDURE, 1 dose, Starting on Fri03/01/22 at 0600, Until Discontinued, Other, door to door salesperson to procedure, Extravasation Risk 0606 ($$New Bag$$ - Provider: Angelita Hernández RN) Linked Groups Order Group 1: HYDROmorphone (DILAUDID) injection 0.5 mgJump to med 0.5 mg, Intravenous, EVERY 5 MINUTES NEEDED, Starting on Fri03/01/22 at 0743, Until Fri03/01/22 at 1702, Severe Pain
Use as initial dose. Higher dose may be administered if lower dose did not result in adverse effects (RR<10, decrease in level of consciousness) and was previously documented as ineffective. May give a total of 4mg in PACU.
Recovery Or HYDROmorphone (DILAUDID) injection 1 mgJump to med 1 mg, Intravenous, EVERY 5 MINUTES NEEDED, Starting on Fri03/01/22 at 0743, Until Fri03/01/22 at 1702, Severe Pain
Higher dose may be administered if lower dose did not result in adverse effects (RR<10, decrease in level of consciousness) and was previously documented as ineffective. Decrease back to lower dose if patient has adverse effects, or no PRN used in previous 30 minutes. May give a total of 4mg in PACU .
Recovery Group 2: ondansetron 4mg/2ml (ZOFRAN) injection 4 mgJump to med 4 mg, Intravenous, EVERY 4 HOURS NEEDED, Starting on Fri03/01/22 at 0855, Until Fri03/01/22 at 1702, Nausea / Vomiting, Post-op/Post-Proc Or ondansetron (ZOFRAN) tablet 4 mgJump to med 4 mg, Oral, EVERY 6 HOURS NEEDED, Starting on Fri03/01/22 at 0855, Until Fri03/01/22 at 1702, Nausea / Vomiting, Post-op/Post-Proc Group 3: oxyCODONE-acetaminophen (PERCOCET) 5-325 MG per tablet 1 tabletJump to med 1 tablet, Oral, EVERY 4 HOURS NEEDED, Starting on Fri03/01/22 at 0855, Until Fri03/01/22 at 1702, Moderate Pain
Use as initial dose. Higher dose may be administered if lower dose was previously documented as ineffective and did not result in adverse effects (RR<10, decrease in level of consciousness).
Post-op/Post-Proc Or oxyCODONE-acetaminophen (PERCOCET) 5-325 MG per tablet 2 tabletJump to med 2 tablet, Oral, EVERY 4 HOURS NEEDED, Starting on Fri03/01/22 at 0855, Until Fri03/01/22 at 1702, Moderate Pain
Higher dose may be administered if lower dose was previously documented as ineffective and did not result in adverse effects (RR<10, decrease in level of consciousness). Decrease back to lower dose if patient has adverse effects, or no PRN used in previous 12 hours.
Post-op/Post-Proc Scheduled Medication Order 03/27/2022 03/28/2022 03/29/2022 famotidine (PF) (PEPCID) injection 20 mg 20 mg, Intravenous, EVERY 12 HOURS, First dose on Fri03/29/22 at 0930, Until Discontinued, Administer by slow IV push at a rate not to exceed 10mg/min 0920 (Given - Provid er: Maria Alejandra Garcia RN) ondansetron 4mg/2ml (ZOFRAN) injection 4 mg (COMPLETED) 4 mg, Intravenous, ONCE, 1 dose, On Fri03/29/22 at 1000 0920 (Given - Provid er: Maria Alejandra Garcia RN) povidone-iodine (3M SKIN and NASAL ANTISEPTIC) 5 % topical solution 1 Application (COMPLETED) 1 Application, Nasal, 60 MIN PRE-OP, 1 dose, On Fri03/29/22 at 0830, (1) Use a tissue to clean the inside of both nostrils including the inside tip of the nostril. (2) Tilting the bottle slightly, dip one swab into solution and stir vigorously for 10 seconds. Withdraw the swab slowly to avoid wiping solution off during removal. (3) Insert swab comfortably into one nostril and rotate for 15 seconds covering all surfaces. Then focus on the inside tip of nostril and rotate for an additional 15 seconds. (4) Using a new swab, repeat steps 2 & 3 with the other nostril. (5) Repeat the application in both nostrils using a fresh swab each time. (6) Do not blow nose. If solution drips out of nose, it can be lightly dabbed with a tissue., Pre-op/Pre-Proc 0905 (Given - Provid er: Maria Alejandra Garcia RN) Continuous Medication Order 03/27/2022 03/28/2022 03/29/2022 sodium chloride 0.9% IV solution Intravenous, at 50 mL/hr, CONTINUOUS, Starting on Fri03/29/22 at 0845, Until Fri03/29/22 at 1404 1006 ($$New Bag$$ - Provider: Eleanor Peterson APRN-SENIOR ADMINISTRATIVE SERVICES OFFICER)1055 (Stopped - Provider: Eleanor Peterson APRN-SENIOR ADMINISTRATIVE SERVICES OFFICER)1202 (Stopped - Provider: Angelita Hernández RN) PRN Medication Order 03/27/2022 03/28/2022 03/29/2022 acetaminophen (TYLENOL) tablet 650 mg 650 mg, Oral, EVERY 4 HOURS NEEDED, Starting on Fri03/29/22 at 1048, Until Fri03/29/22 at 1404, Mild Pain, Maximum dose of acetaminophen is 4000 mg from all sources in 24 hours., Post-op/Post-Proc bupivacaine (PF) (MARCAINE) 0.75 % injection (CANCELED) NEEDED, Starting on Fri03/29/22 at 1042, Until Fri03/29/22 at 1052, Intra-op/Intra-Proc 1042 (Given - Provid er: Marielena Pierre MD - Comment: BUPIVACAINE 0.75% 20L, LIDO 2% WITH EPI 20ML) ceFAZolin (ANCEF) 2 g in dextrose 100 mL premix IVPB (COMPLETED) 2 g, Intravenous, Administer over 30 Minutes, OFFICE WORKER TO PROCEDURE, 1 dose, Starting on Fri03/29/22 at 0817, Until Discontinued, Other, Surgical Prophylaxis, Initiate antibiotic administration 30-60 minutes prior to surgical incision and complete administration prior to surgical incision., Pre-op/Pre-Proc 1009 (Given - Provid er: Eleanor Peterson APRN-SENIOR ADMINISTRATIVE SERVICES OFFICER) fentaNYL (SUBLIMAZE) injection 25 mcg 25 mcg, Intravenous, Administer over 2 Minutes, EVERY 5 MINUTES NEEDED, Starting on Fri03/29/22 at 1049, Until Fri03/29/22 at 1404, Moderate Pain, Severe Pain, Additional dose may be administered only if first dose did not result in adverse effects (RR<10, decrease in level of consciousness) and was previously documented as ineffective. May give a total of 100mcg in PACU. If pain unrelieved after 100mcg, notify Anesthesia provider., Recovery haloperidol lactate (HALDOL) injection 0.5 mg 0.5 mg, Intravenous, EVERY 15 MINUTES NEEDED, 2 doses, Starting on Fri03/29/22 at 1049, Until Fri03/29/22 at 1404, FIRST line Nausea/vomiting,, If patient still experiencing nausea/vomiting after 1st dose use 2nd line antiemetic, Recovery HYDROmorphone (DILAUDID) injection 1 mg 1 mg, Intravenous, EVERY 10 MINUTES NEEDED, 2 doses, Starting on Fri03/29/22 at 0916, Until Fri03/29/22 at 1404, Moderate Pain, Severe Pain, Use as initial dose. Higher dose may be administered if lower dose was previously documented as ineffective and did not result in adverse effects (RR<10, negative change in RASS of 2 or more). 0920 (Given - Provid er: Maria Alejandra Garcia RN) lidocaine-epinephrine 2 %-1:917500 injection (CANCELED) NEEDED, Starting on Fri03/29/22 at 1043, Until Fri03/29/22 at 1052, Intra-op/Intra-Proc 1043 (Given - Provid er: Marielena Pierre MD - Comment: BUPIVACAINE 0.75% 20L, LIDO 2% WITH EPI 20ML) ondansetron (ZOFRAN) tablet 4 mg(Linked Group 1) 4 mg, Oral, EVERY 6 HOURS NEEDED, Starting on Fri03/29/22 at 1048, Until Fri03/29/22 at 1404, Nausea / Vomiting, Post-op/Post-Proc ondansetron 4mg/2ml (ZOFRAN) injection 4 mg 4 mg, Intravenous, ONCE NEEDED, 1 dose, Starting on Fri03/29/22 at 1049, Until Fri03/29/22 at 1404, Nausea / Vomiting, SECOND Line, Use if patient still experiencing nausea/vomiting after 1st line antiemetic, Recovery ondansetron 4mg/2ml (ZOFRAN) injection 4 mg(Linked Group 1) 4 mg, Intravenous, EVERY 4 HOURS NEEDED, Starting on Fri03/29/22 at 1048, Until Fri03/29/22 at 1404, Nausea / Vomiting, Post-op/Post-Proc oxyCODONE (ROXICODONE) tablet 5 mg 5 mg, Oral, ONCE NEEDED, 1 dose, Starting on Fri03/29/22 at 1049, Until Fri03/29/22 at 1404, Moderate Pain, Recovery oxyCODONE-acetaminophen (PERCOCET) 5-325 MG per tablet 1 tablet(Linked Group 2) 1 tablet, Oral, EVERY 4 HOURS NEEDED, Starting on Fri03/29/22 at 1048, Until Fri03/29/22 at 1404, Moderate Pain, Use as initial dose. Higher dose may be administered if lower dose was previously documented as ineffective and did not result in adverse effects (RR<10, decrease in level of consciousness)., Post-op/Post-Proc oxyCODONE-acetaminophen (PERCOCET) 5-325 MG per tablet 2 tablet(Linked Group 2) 2 tablet, Oral, EVERY 4 HOURS NEEDED, Starting on Fri03/29/22 at 1048, Until Fri03/29/22 at 1404, Moderate Pain, Higher dose may be administered if lower dose was previously documented as ineffective and did not result in adverse effects (RR<10, decrease in level of consciousness). Decrease back to lower dose if patient has adverse effects, or no PRN used in previous 12 hours., Post-op/Post-Proc vancomycin (VANCOCIN) 750 mg in sodium chloride 0.9%, with overfill 282.5 mL (total volume) IVPB (COMPLETED) 750 mg, Intravenous, Administer over 1 Hours, OFFICE WORKER TO PROCEDURE, 1 dose, Starting on Fri03/29/22 at 0823, Until Discontinued, Other, Surgical Prophylaxis, Infusion must complete prior to surgical incision. Initiate antibiotic administration 60-120 minutes prior to surgical incision (depending on Administer Over Time). Extravasation Risk, Pre-op/Pre-Proc 0850 ($$New Bag$$ - Provider: Maria Alejandra Garcia RN) vancomycin (VANCOCIN) injection (CANCELED) NEEDED, Starting on Fri03/29/22 at 1044, Until Fri03/29/22 at 1052, Intra-op/Intra-Proc 1044 (Given - Provid er: Marielena Pierre MD) Linked Groups Order Group 1: ondansetron 4mg/2ml (ZOFRAN) injection 4 mgJump to med 4 mg, Intravenous, EVERY 4 HOURS NEEDED, Starting on Fri03/29/22 at 1048, Until Fri03/29/22 at 1404, Nausea / Vomiting, Post-op/Post-Proc Or ondansetron (ZOFRAN) tablet 4 mgJump to med 4 mg, Oral, EVERY 6 HOURS NEEDED, Starting on Fri03/29/22 at 1048, Until Fri03/29/22 at 1404, Nausea / Vomiting, Post-op/Post-Proc Group 2: oxyCODONE-acetaminophen (PERCOCET) 5-325 MG per tablet 1 tabletJump to med 1 tablet, Oral, EVERY 4 HOURS NEEDED, Starting on Fri03/29/22 at 1048, Until Fri03/29/22 at 1404, Moderate Pain
Use as initial dose. Higher dose may be administered if lower dose was previously documented as ineffective and did not result in adverse effects (RR<10, decrease in level of consciousness).
Post-op/Post-Proc Or oxyCODONE-acetaminophen (PERCOCET) 5-325 MG per tablet 2 tabletJump to med 2 tablet, Oral, EVERY 4 HOURS NEEDED, Starting on Fri03/29/22 at 1048, Until Fri03/29/22 at 1404, Moderate Pain
Higher dose may be administered if lower dose was previously documented as ineffective and did not result in adverse effects (RR<10, decrease in level of consciousness). Decrease back to lower dose if patient has adverse effects, or no PRN used in previous 12 hours.
Post-op/Post-Proc FOR RECORDS PERTAINING TO PATIENTS WHO ARE OR HAVE BEEN ENROLLED IN A CHEMICAL DEPENDENCY/SUBSTANCEABUSE PROGRAM, SOME INFORMATION MAY BE OMITTED. This clinical summary was aggregated from multiple sources. Caution should be exercised in using it in the provision of clinical care. This summary normalizes information from multiple sources, and as a consequence, information in this document may materially change the coding, format and clinical context of patient data. In addition, data may be omitted in some cases. CLINICAL DECISIONS SHOULD BE BASED ON THE PRIMARY CLINICAL RECORDS. [facility]. provides no warranty or guarantee of the accuracy or completeness of information in this document.
[2025-04-10 15:01] LABS: Red Blood Cells-Urine 0 SEEN /hpf (0-5)
[2025-04-10 15:11] LABS: Color, Urine Yellow (Yellow); Glucose, Dipstick Normal (Normal); Ketone-Dipstick 5 mg/dl (Negative); Leukocyte Esterase-Dipstick 25 /ul (Negative); Nitrite-Dipstick Negative (Negative); Occult Blood-Urine Negative /ul (Negative); Protein-Dipstick 30 mg/dl (Negative); Specific Gravity, Urine 1.020 (1.002-1.030); Urine Bilirubin Dipstick 1 mg/dL (Negative)
[2025-04-10 15:19] LABS: Mucous, Urine 1+ /hpf (<or=2+); Squamous Epithelial Cells - UA 0-5 SEEN /hpf (0-5)
[2025-04-10 16:00] VITALS: BP 93/59; PULSE 72; O2SAT 97
[2025-04-10 16:17] VITALS: BP 109/86; PULSE 83; O2SAT 100
[2025-04-10 17:01] VITALS: BP 109/86; PULSE 83; RESP 16; TEMP 36.8; O2SAT 100
== END 2025-04-10 17:08 | disposition home or self-care (01) ==
PROVIDERS: Emergency Provider Emergency Medicine; PCP Family Medicine; Visit Provider Emergency Medicine
DX: R10.9 Unspecified abdominal pain (principal); F17.210 Nicotine dependence, cigarettes, uncomplicated
CPT/HCPCS: 74174; 80053; 81001; 83605; 83690; 85025; 96361; 96374; 96375; 96376; 99283; Q9967; A4216; J2405